=== PATIENT | male | born 1940 | race African-American/Black ===

== ENCOUNTER 2018-04-05 14:26 | Inpatient (IN) | payer MEDICARE, OTHER ==
[~2018-04-05] VITALS: Ht 177.8 cm; Wt 91.6 kg
--- NOTE | 2018-04-05 15:35 | NUR ---
RECEIVED PT FROM [facility]. PT NEW ADMISSION. RECEIVED PT TRACH W/ SHILEY #6 CUFFED (DEFLATED). PLACED PT ON C/A 28%, 5/L , PT ON C/A AT [facility]. AWAITING MD ORDERS. BREATH SOUNDS BILATERAL DIMINISHED COARSE. SX SMALL AMOUNT OF YELLOW THICK SECRETIONS. PT AWAKE AND STABLE AT THIS TIME. NO SOB/RESP DISTRESS NOTED. WILL CONTINUE TO MONITOR PT. Addendum: 04/05/18 at 1645 by ADRIANNA DIETRICH RT Amended: Links added.
--- NOTE | 2018-04-05 15:40 | NUR ---
77 year old male pt admitted from [facility] to subacute room 273 with respiratory failure,has h/o CKD,CVA and right side paralysis.He is comatose and nonresponsiveness with Shiley#6 cuffed.Pt is having cool aerosol with FIO2 28%.Body assessment done and it is documented.Vital signs checked and recorded and it is under baseline.Medications are verified with PCP.Pharmacy made aware.Son is at bedside and aware about the medications and nursing care.G tube feeding with Nepro 1.8 @45ml/hr is started and will continue to monitor. Addendum: 04/05/18 at 1907 by FRANCISCO BRAVO RN Midline with 1 lumen is on the left upper arm and it is intact and non infiltrated.
[2018-04-05] MEDS ORDERED: LATA2.5D7 EACHEYE (16:30)
[2018-04-05] MEDS ORDERED: CHLO473M5 MM (16:30)
[2018-04-05] MEDS ORDERED: LIDOCAINE (16:30)
[2018-04-05] MEDS ORDERED: NYST5ORA BC (16:30)
[2018-04-05] MEDS ORDERED: BRIN10DR EACHEYE (16:30)
[2018-04-05] MEDS ORDERED: AMLO5TAB2 GT (16:30)
[2018-04-05] MEDS ORDERED: FAMO-131 GT (16:30)
[2018-04-05] MEDS ORDERED: [UNRECOGNIZED DRUG - CODE] TP (16:30)
[2018-04-05] MEDS ORDERED: FINA5TAB3 GT (16:30)
[2018-04-05] MEDS ORDERED: ASCO250T5 GT (16:30)
[2018-04-05] MEDS ORDERED: INSU100V3 SQ (16:30)
[2018-04-05] MEDS ORDERED: GLUC1KIT IM (16:30)
[2018-04-05] MEDS ORDERED: LACO10SO GT (16:30)
[2018-04-05] MEDS ORDERED: ACET650S26 GT (16:30)
[2018-04-05] MEDS ORDERED: ATOR40TA GT (16:30)
[2018-04-05] MEDS ORDERED: NITR1OIN2 TD (16:30)
[2018-04-05] MEDS ORDERED: PRED5DRO16 EACHEYE (16:30)
[2018-04-05] MEDS ORDERED: MAGN400O6 GT (16:30)
[2018-04-05] MEDS ORDERED: SIME80TA15 GT (16:30)
[2018-04-05] MEDS ORDERED: LINA5TAB GT (16:30)
[2018-04-05] MEDS ORDERED: FERR300L GT (16:30)
[2018-04-05] MEDS ORDERED: INSU100I19 SQ (16:30)
[2018-04-05] MEDS ORDERED: BUME1TAB4 GT (16:30)
[2018-04-05] MEDS ORDERED: METO25TA20 GT (16:30)
[2018-04-05] MEDS ORDERED: PRAZ2CAP2 GT (16:30)
[2018-04-05] MEDS ORDERED: DOCU50LI GT (16:30)
[2018-04-05] MEDS ORDERED: POLY17PO4 GT (16:30)
[2018-04-05] MEDS ORDERED: BISA10SU8 RC (16:30)
[2018-04-05] MEDS ORDERED: BETH25TA GT (16:30)
[2018-04-05] MEDS ORDERED: METO5SOL2 GT (16:30)
[2018-04-05] MEDS ORDERED: OLAN2.5T3 GT (16:30)
[2018-04-05] MEDS ORDERED: NEPRO 1,000 ML BOTTLE GT PRN (17:00)
[2018-04-05] MEDS ORDERED: HYDROGEN PEROXIDE 480 ML BOTTLE TP PRN (18:00)
[2018-04-05] MEDS ORDERED: ACETAMINOPHEN 650 MG/20.3 ML UDC GT PRN (18:30)
[2018-04-05] MEDS ORDERED: BISACODYL SUPP (10 MG) 10 MG/SUPP.RECT SUPP.RECT RC PRN (18:30)
[2018-04-05] MEDS ORDERED: MAGNESIUM HYDROXIDE 30 ML UDC GT PRN (18:30)
[2018-04-05] MEDS ORDERED: GLUCAGON,HUMAN RECOMBINANT 1 MG/VIAL VIAL IM PRN (19:00)
[2018-04-05] MEDS ORDERED: MICONAZOLE NITRATE 2% CREAM 1 EA TUBE TP PRN (19:30)
[2018-04-05] MEDS ORDERED: NITROGLYCERIN 30 GM TUBE TP PRN (19:30)
[2018-04-05 20:08] VITALS: BP 127/66
--- NOTE | 2018-04-05 20:19 | NUR ---
RT NOTE PATIENT RECEIVED IN STABLE CONDITION VIA TRACH TUBE SHILEY #6. PATIENT TOLERATING COOL AEROSOL 28%. NO SIGNS OF RESPIRATORY DISTRESS NOTED. PATIENT SUCTIONED FOR MODERATE AMOUNT OF THICK, YELLOW SECRETIONS. EMERGENCY EQUIPMENT AT BEDSIDE. WILL CONTINUE TO MONITOR.
[2018-04-05] MEDS: MICONAZOLE NITRATE 2% CREAM 1 EA TUBE TP SCH (21:00)
[2018-04-05] MEDS ORDERED: ATORVASTATIN 40 MG TABLET GT SCH (21:00)
[2018-04-05] MEDS ORDERED: PRAZOSIN HCL 1 MG CAPSULE PO SCH (21:00)
[2018-04-05] MEDS ORDERED: BRINZOLAMIDE 1 % OPHTH SOLN 10 ML BOTTLE EACHEYE SCH (21:00)
[2018-04-05] MEDS ORDERED: TUBERCULIN,PURIF.PROT.DERIV. 5 TU/0.1 ML VIAL ID SCH (21:00)
[2018-04-05 21:26] VITALS: BP 102/65
[2018-04-05] MEDS: NYSTATIN (PYXIS) 500,000 UNIT/5 ML ORAL.SUSP BC SCH (21:49)
[2018-04-05] MEDS: SIMETHICONE 80 MG TAB.CHEW GT SCH (21:49)
[2018-04-05] MEDS: CHLORHEXIDINE GLUCONATE 15 ML UDC MM SCH (21:49)
[2018-04-05] MEDS: PRAZOSIN HCL 1 MG CAPSULE PO SCH (21:49)
[2018-04-05] MEDS: DORZOLAMIDE OPTH 2% 10 ML BOTTLE EACHEYE SCH (21:49)
[2018-04-05] MEDS: METOPROLOL TARTRATE 25 MG TABLET PO SCH (21:49)
[2018-04-05] MEDS: LACOSAMIDE 50 MG TABLET GT SCH (21:49)
[2018-04-05] MEDS: HYDROGEN PEROXIDE 480 ML BOTTLE TP SCH (21:50)
[2018-04-05] MEDS: LATANOPROST EYE DROP 0.005% 2.5 ML BOTTLE EACHEYE SCH (21:50)
[2018-04-05] MEDS: DEXTROSE 50%-WATER 50 ML DISP.SYRIN IV PRN (22:11)
--- NOTE | 2018-04-05 23:15 | NUR ---
Patient noted with episode of hypoglycemia with a Bs = 52, orange juice given via gt with a result of Bs = 62 post 30 mins. D50% 50 ml IVP administered as ordered with a result of FT=916. No s/s of hypoglycemia/hyperglycemia. Lantus given as ordered. Son at bedside, aware and appreciated the care. Will continue to monitor.
[2018-04-05] MEDS: INSULIN GLARGINE, 100 UNIT/ML CARTRIDGE SQ SCH (23:20)
[2018-04-05] MEDS: BLOOD SUGAR DIAGNOSTIC 1 EACH STRIP IN SCH (23:27)
[2018-04-05] MEDS: INSULIN REGULAR, HUMAN 100 UNIT/ML 3 ML VIAL SQ PRN (23:28)
[2018-04-05] MEDS: METOCLOPRAMIDE HCL 10 MG/10 ML UDC GT SCH (23:30)
[2018-04-06 00:53] VITALS: BP 120/58
[2018-04-06 04:54] VITALS: BP 129/72
--- NOTE | 2018-04-06 06:00 | NUR ---
Son requested to do bladder scan q 6 hours and do straight cath when the pvr is > 300. Bladder scan done with PVR = 0. Will endorse to the next shift to follow up with
[2018-04-06] MEDS: METOCLOPRAMIDE HCL 10 MG/10 ML UDC GT SCH ×3 (06:07→17:46)
[2018-04-06] MEDS: FAMOTIDINE (20 MG) 20 MG TABLET GT SCH (06:07)
[2018-04-06 06:32] LABS: ALANINE AMINOTRANSFERASE 89 U/L (12-78); ALBUMIN 1.7 g/dL (3.4-5.0); ALKALINE PHOSPHATASE 252 U/L (46-116); ASPARTATE AMINOTRANSFERASE 52 U/L (15-37); BILIRUBIN,TOTAL 0.2 mg/dL (0.2-1.0); CALCIUM, SERUM 8.2 mg/dL (8.5-10.1); CARBON DIOXIDE 31 mmol/L (21-32); CHLORIDE 101 mmol/L (98-107); CREATININE 1.3 mg/dL (0.6-1.3); GLUCOSE 66 mg/dL (74-106); MAGNESIUM 2.3 mg/dL (1.8-2.4); POTASSIUM 3.8 mmol/L (3.5-5.1); SODIUM SERUM 139 mmol/L (136-145); TOTAL PROTEIN, SERUM 7.7 g/dL (6.4-8.2); UREA NITROGEN, BLOOD 49 mg/dL (7-18)
[2018-04-06] MEDS: INSULIN REGULAR, HUMAN 100 UNIT/ML 3 ML VIAL SQ PRN (06:36)
[2018-04-06] MEDS: BLOOD SUGAR DIAGNOSTIC 1 EACH STRIP IN SCH ×3 (06:36→17:46)
--- NOTE | 2018-04-06 06:51 | NUR ---
Noted with hypoglycemia episode with BS = 65, patient awake, orange juice given via gtube with a result of 89 post 30 minutes. Will endorse to the next shift to follow up with MD.
[2018-04-06 07:32] VITALS: BP 136/72
[2018-04-06] MEDS: POVIDONE IODINE TP SCH ×8 (09:00→21:57)
[2018-04-06] MEDS: HYDROGEN PEROXIDE 480 ML BOTTLE TP SCH ×2 (09:00→21:57)
[2018-04-06] MEDS: INSULIN GLARGINE, 100 UNIT/ML CARTRIDGE SQ SCH ×2 (09:00→21:00)
[2018-04-06] MEDS: NYSTATIN (PYXIS) 500,000 UNIT/5 ML ORAL.SUSP BC SCH ×4 (09:49→21:56)
[2018-04-06] MEDS: prednisoLONE ACETATE OPHT DROPS 5 ML BOTTLE EACHEYE SCH ×2 (09:49→17:46)
[2018-04-06] MEDS: FERROUS SULFATE - FOR SA ONLY 330 MG/7.5 ML UDC GT SCH (09:50)
[2018-04-06] MEDS: DOCUSATE SODIUM LIQ 100 MG/10 ML UDC GT SCH ×2 (09:50→17:46)
[2018-04-06] MEDS: POLYETHYLENE GLYCOL 3350 17 GM POWD.PACK GT SCH ×2 (09:50→17:46)
[2018-04-06] MEDS: DORZOLAMIDE OPTH 2% 10 ML BOTTLE EACHEYE SCH ×3 (09:50→17:46)
[2018-04-06] MEDS: METOPROLOL TARTRATE 25 MG TABLET PO SCH ×2 (09:51→21:56)
[2018-04-06] MEDS: ASCORBIC ACID 500 MG TABLET GT SCH (09:51)
[2018-04-06] MEDS: AMLODIPINE BESYLATE 5 MG TABLET GT SCH (09:51)
[2018-04-06] MEDS: CHLORHEXIDINE GLUCONATE 15 ML UDC MM SCH ×2 (09:51→21:56)
[2018-04-06] MEDS: BETHANECHOL CHLORIDE (25 MG) 25 MG TABLET GT SCH ×3 (09:51→17:46)
[2018-04-06] MEDS: FINASTERIDE (5 MG) 5 MG TABLET GT SCH (09:51)
[2018-04-06] MEDS: LINAGLIPTIN 5 MG TABLET GT SCH (09:51)
[2018-04-06] MEDS: SIMETHICONE 80 MG TAB.CHEW GT SCH ×3 (09:51→17:46)
[2018-04-06] MEDS: LACOSAMIDE 50 MG TABLET GT SCH ×2 (09:51→21:55)
[2018-04-06 10:02] LABS: BASOPHILS % (AUTO) 0.4 % (0.0-2.0); EOSINOPHILS % (AUTO) 0.7 % (0.0-6.0); HEMATOCRIT 26 % (39-51); HEMOGLOBIN 8.2 g/dL (13.5-17.5); LYMPHOCYTES # (AUTO) 1.4 /CMM (0.8-4.8); LYMPHOCYTES % (AUTO) 16.3 % (20.0-44.0); MEAN CORPUSCULAR HEMOGLOBIN 29 PG (26.0-33.0); MEAN CORPUSCULAR HGB CONC 31 g/dl (31.0-36.0); MEAN CORPUSCULAR VOLUME 92 fL (80-96); MONOCYTES # (AUTO) 0.7 /CMM (0.1-1.30); MONOCYTES % (AUTO) 8.7 % (2.0-12.0); NEUTROPHILS # (AUTO) 6.1 /CMM (1.8-8.9); NEUTROPHILS % (AUTO) 73.9 % (43.0-81.0); PLATELET COUNT (AUTO) 239 /CMM (150-450); RDW COEFFICIENT OF VARIATION 16.4 (11.5-15.0); RED BLOOD CELL COUNT(AUTO) 2.88 MIL/uL (4.5-6.0); WHITE BLOOD COUNT (AUTO) 8.3 K/uL (4.3-11.0)
[2018-04-06] MEDS: MICONAZOLE NITRATE 2% CREAM 1 EA TUBE TP SCH (10:30)
[2018-04-06 12:00] VITALS: BP 118/62
--- NOTE | 2018-04-06 14:00 | NUR ---
INTERDISCIPLINARY PLAN OF CARE CONFERENCE was held today. Resident's son Jose attended the IDT meeting in person. Dr. Ramírez and the interdisciplinary team discussed the current plan of care in detail. Current orders as well as treatments and medications were reviewed. Current medications were reviewed with the resident's son. Dr. Ramírez asked son whether there have been any neurological changes in the resident to which son replied by stating that resident occasionally twitches his finger when he asks him to squeeze his hand. Code status was reviewed with the resident's son and resident is to be full code with maximum treatment. Dietary reviewed current tube feeding with the resident's son. Reglan indicator will be changed from GERD to gastrophoresis. Resident was previously taking Aspirin and this will be resumed. Per PT team, the resident is not appropriate for PT therapy and will have Range of Motion exercises done 5x/week. Resident will have OT evaluation as well to screen for services. Son asked why midline was still inserted and was told that midline will stay over the weekend (to monitor) since resident recently arrived to the unit and will potentially be removed next week. No other orders were given.
--- NOTE | 2018-04-06 14:59 | NUR ---
SW met with the resident's son Jose Johns to complete initial paperwork: patient rights acknowledgement, documentation of preferred intensity of care, conditions of admission, an important message from medicare about your rights, [place] Standard Admission Agreement, and voluntary prior express consent form. Per resident's son, resident is Full Code with maximum treatment. Charge nurse informed. Admission ppwk was placed into the resident's chart. SW gathered information for psychosocial assessment and inputted assessment.
[2018-04-06 16:00] VITALS: BP 134/67
[2018-04-06] MEDS: Z GUARD REMEDY 4 OZ OINT TP SCH ×2 (18:54→21:57)
[2018-04-06 20:52] VITALS: BP 137/68
--- NOTE | 2018-04-06 21:00 | NUR ---
CLARIFICATION OF ORDER OF LANTUS TO D/C PREVIOUS LANTUS 19UNITS AND CHANGED TO LANTUS 12 UNITS RECEIVED NOTED AND CARRIED OUT. LANTUS 12 UNITS SUBCUTANEOUSLY GIVEN ORDERED. WILL CONTINUE TO MONITOR.
[2018-04-06] MEDS: LATANOPROST EYE DROP 0.005% 2.5 ML BOTTLE EACHEYE SCH (21:57)
[2018-04-06] MEDS: ATORVASTATIN 10 MG TABLET GT SCH (21:57)
[2018-04-06] MEDS: PRAZOSIN HCL 1 MG CAPSULE PO SCH (21:57)
[2018-04-06] MEDS ORDERED: LACOSAMIDE 50 MG TABLET ONE (22:19)
--- NOTE | 2018-04-06 22:28 | NUR ---
PT RCVD PROSPER'D ON COOL AEROSOL WITH CHARTED SETTINGS. SX DONE. PT TRACH PATENT AND SECURE. AMBU BAG AT BEDSIDE. WILL CONTINUE TO MONITOR. Addendum: 04/06/18 at 2228 by TITO GARCES RT Amended: Links added.
[2018-04-07] MEDS: METOCLOPRAMIDE HCL 10 MG/10 ML UDC GT SCH ×4 (00:15→17:38)
[2018-04-07] MEDS: BLOOD SUGAR DIAGNOSTIC 1 EACH STRIP IN SCH ×4 (00:15→17:41)
[2018-04-07] MEDS: INSULIN REGULAR, HUMAN 100 UNIT/ML 3 ML VIAL SQ PRN ×3 (00:15→17:42)
[2018-04-07] MEDS: FAMOTIDINE (20 MG) 20 MG TABLET GT SCH (05:55)
[2018-04-07 07:38] VITALS: BP 124/69
[2018-04-07] MEDS: NYSTATIN (PYXIS) 500,000 UNIT/5 ML ORAL.SUSP BC SCH ×4 (08:45→21:30)
[2018-04-07] MEDS: SIMETHICONE 80 MG TAB.CHEW GT SCH ×3 (08:45→17:38)
[2018-04-07] MEDS: FINASTERIDE (5 MG) 5 MG TABLET GT SCH (08:45)
[2018-04-07] MEDS: METOPROLOL TARTRATE 25 MG TABLET PO SCH ×2 (08:46→21:31)
[2018-04-07] MEDS: AMLODIPINE BESYLATE 5 MG TABLET GT SCH (08:46)
[2018-04-07] MEDS: prednisoLONE ACETATE OPHT DROPS 5 ML BOTTLE EACHEYE SCH ×2 (08:48→17:40)
[2018-04-07] MEDS: CHLORHEXIDINE GLUCONATE 15 ML UDC MM SCH ×2 (08:49→21:30)
[2018-04-07] MEDS: DORZOLAMIDE OPTH 2% 10 ML BOTTLE EACHEYE SCH ×3 (08:49→17:40)
[2018-04-07] MEDS: BETHANECHOL CHLORIDE (25 MG) 25 MG TABLET GT SCH ×3 (08:49→17:39)
[2018-04-07] MEDS: POLYETHYLENE GLYCOL 3350 17 GM POWD.PACK GT SCH ×2 (08:49→17:40)
[2018-04-07] MEDS: ASCORBIC ACID 500 MG TABLET GT SCH (08:49)
[2018-04-07] MEDS: DOCUSATE SODIUM LIQ 100 MG/10 ML UDC GT SCH ×2 (08:49→17:40)
[2018-04-07] MEDS: FERROUS SULFATE - FOR SA ONLY 330 MG/7.5 ML UDC GT SCH (08:49)
[2018-04-07] MEDS: Z GUARD REMEDY 4 OZ OINT TP SCH ×2 (08:50→21:32)
[2018-04-07] MEDS: POVIDONE IODINE TP SCH ×6 (08:50→21:32)
[2018-04-07] MEDS: HYDROGEN PEROXIDE 480 ML BOTTLE TP SCH ×2 (08:50→21:31)
[2018-04-07] MEDS: LINAGLIPTIN 5 MG TABLET GT SCH (09:00)
[2018-04-07] MEDS: INSULIN GLARGINE, 100 UNIT/ML CARTRIDGE SQ SCH ×2 (09:32→21:31)
[2018-04-07] MEDS: MICONAZOLE NITRATE 2% CREAM 1 EA TUBE TP SCH ×2 (09:32→21:32)
[2018-04-07] MEDS: LACOSAMIDE 50 MG TABLET GT SCH ×2 (10:02→21:30)
--- NOTE | 2018-04-07 12:10 | NUR ---
Seen and examined by Dr. Ramírez, made aware that patient has no breathing treatment order, he said to give PRN Albuterol and Atrovent Q 6 hours for SOB. Resident's son Dr. Johns notified of new order. No signs of respiratory distress at this time.
[2018-04-07 12:52] VITALS: BP 120/65
[2018-04-07] MEDS ORDERED: ALBUTEROL FS 2.5 MG/0.5 ML VIAL.NEB NEB PRN (13:00)
[2018-04-07] MEDS ORDERED: IPRATROPIUM NEB FS 0.5 MG/2.5 ML AMPUL.NEB NEB PRN (13:00)
[2018-04-07 14:40] VITALS: BP 124/62
[2018-04-07 16:11] VITALS: BP 124/68
[2018-04-07 18:42] VITALS: BP 124/62
[2018-04-07 20:00] VITALS: BP 136/74
[2018-04-07] MEDS: PRAZOSIN HCL 1 MG CAPSULE PO SCH (21:31)
[2018-04-07] MEDS: LATANOPROST EYE DROP 0.005% 2.5 ML BOTTLE EACHEYE SCH (21:32)
[2018-04-07] MEDS: ATORVASTATIN 10 MG TABLET GT SCH (21:34)
[2018-04-08] VITALS: BP 127/64
[2018-04-08] MEDS: BLOOD SUGAR DIAGNOSTIC 1 EACH STRIP IN SCH ×4 (00:40→18:26)
--- NOTE | 2018-04-08 01:24 | NUR ---
0040 BS 60 MG / DL ORANGE JUICE GIVEN VIA GT D/T 50 ML DEXTROSE 50% NOT AVAILABLE. 0010 RECHECK BS: 63 MG/DL CHARGE NURSE AWARE , WILL CON'T TO MONITOR.
--- NOTE | 2018-04-08 03:31 | NUR ---
MACHINIST OUTSIDE REPORTED NO URINE OUTPUT SINCE START OF SHIFT, BLADDER SCAN PERFORMED, BVI 65 CC, PATIENT HAS UPPER EXTREMITIES EDEMA 2+, BP WNL, RECEIVING GT FEEDING AT 45 CC/HR. WILL PERFORM ANOTHER BLADDER SCAN
[2018-04-08 04:00] VITALS: BP 126/67
--- NOTE | 2018-04-08 05:37 | NUR ---
PERFORMED ANOTHER BLADDER SCAN, BVI 92 CC, ON PALPATION, NO BLADDER DISTENTION, BP 126/67, RECEIVING GT FEEDING AT 45CC/HR, EDEMA TO UPPER EXTREMITIES, BP 126/67 HR 73
--- NOTE | 2018-04-08 06:12 | NUR ---
PAGED DR. WHITE REGARDING NO URINE OUTPUT, AWAITING CALL BACK
[2018-04-08] MEDS: INSULIN REGULAR, HUMAN 100 UNIT/ML 3 ML VIAL SQ PRN ×2 (06:26→18:27)
[2018-04-08] MEDS: FAMOTIDINE (20 MG) 20 MG TABLET GT SCH (06:26)
[2018-04-08] MEDS: METOCLOPRAMIDE HCL 10 MG/10 ML UDC GT SCH ×4 (06:26→18:00)
--- NOTE | 2018-04-08 06:50 | NUR ---
NO CALL BACK FROM DR. WHITE
--- NOTE | 2018-04-08 07:01 | NUR ---
0430 Residual 400 , Charge nurse aware. [address] Yimi Parker and still waiting for the new order.
[2018-04-08 07:35] VITALS: BP 139/77
--- NOTE | 2018-04-08 07:42 | NUR ---
Received a call from Dr. Parker informing him that patient has no urine output last night, check PVR through bladder scan obtained [address] Parker ordered straight cath x 1, CBC and BMP today. also made aware patient has gastric residual of 400 ml. feeding on hold at this time. Order carried out.
[2018-04-08] MEDS ORDERED: GLUCERNA 1.2 1,000 ML BOTTLE GT PRN (08:30)
--- NOTE | 2018-04-08 08:30 | NUR ---
Straight cath done, obtained 400 ml. Gastric residual remain high at 300ml. Resident stable, calm, no s/s of respiratory/cardio distress. Resident's son requesting patient to be up today in the gerichair.
[2018-04-08] MEDS: DORZOLAMIDE OPTH 2% 10 ML BOTTLE EACHEYE SCH ×3 (09:00→17:00)
[2018-04-08] MEDS: BETHANECHOL CHLORIDE (25 MG) 25 MG TABLET GT SCH ×3 (09:00→17:00)
[2018-04-08] MEDS: POLYETHYLENE GLYCOL 3350 17 GM POWD.PACK GT SCH ×2 (09:00→17:00)
[2018-04-08] MEDS: METOPROLOL TARTRATE 25 MG TABLET PO SCH ×2 (09:00→21:00)
[2018-04-08] MEDS: LINAGLIPTIN 5 MG TABLET GT SCH (09:00)
[2018-04-08] MEDS: MICONAZOLE NITRATE 2% CREAM 1 EA TUBE TP SCH ×2 (09:00→21:57)
[2018-04-08] MEDS: LACOSAMIDE 50 MG TABLET GT SCH ×2 (09:00→21:00)
[2018-04-08] MEDS: FERROUS SULFATE - FOR SA ONLY 330 MG/7.5 ML UDC GT SCH (09:00)
[2018-04-08] MEDS: FINASTERIDE (5 MG) 5 MG TABLET GT SCH (09:00)
[2018-04-08] MEDS: prednisoLONE ACETATE OPHT DROPS 5 ML BOTTLE EACHEYE SCH ×2 (09:00→17:00)
[2018-04-08] MEDS: ASCORBIC ACID 500 MG TABLET GT SCH (09:00)
[2018-04-08] MEDS: INSULIN GLARGINE, 100 UNIT/ML CARTRIDGE SQ SCH ×2 (09:00→21:00)
[2018-04-08] MEDS: HYDROGEN PEROXIDE 480 ML BOTTLE TP SCH ×2 (09:00→21:57)
[2018-04-08] MEDS: SIMETHICONE 80 MG TAB.CHEW GT SCH ×3 (09:00→17:00)
[2018-04-08] MEDS: NYSTATIN (PYXIS) 500,000 UNIT/5 ML ORAL.SUSP BC SCH ×4 (09:00→21:57)
[2018-04-08] MEDS: Z GUARD REMEDY 4 OZ OINT TP SCH ×2 (09:00→21:58)
[2018-04-08] MEDS: AMLODIPINE BESYLATE 5 MG TABLET GT SCH (09:00)
[2018-04-08] MEDS: DOCUSATE SODIUM LIQ 100 MG/10 ML UDC GT SCH ×2 (09:00→17:00)
[2018-04-08] MEDS: CHLORHEXIDINE GLUCONATE 15 ML UDC MM SCH ×2 (09:00→21:57)
[2018-04-08] MEDS: POVIDONE IODINE TP SCH ×6 (09:00→21:58)
[2018-04-08 09:30] LABS: EOSINOPHILS % (AUTO) 0.4 % (0.0-6.0); HEMATOCRIT 27 % (39-51); HEMOGLOBIN 8.4 g/dL (13.5-17.5); LYMPHOCYTES # (AUTO) 0.8 /CMM (0.8-4.8); LYMPHOCYTES % (AUTO) 8.7 % (20.0-44.0); MEAN CORPUSCULAR HEMOGLOBIN 29 PG (26.0-33.0); MEAN CORPUSCULAR HGB CONC 32 g/dl (31.0-36.0); MEAN CORPUSCULAR VOLUME 91 fL (80-96); MONOCYTES # (AUTO) 0.2 /CMM (0.1-1.30); MONOCYTES % (AUTO) 2.6 % (2.0-12.0); NEUTROPHILS # (AUTO) 8.1 /CMM (1.8-8.9); NEUTROPHILS % (AUTO) 88.3 % (43.0-81.0); PLATELET COUNT (AUTO) 223 /CMM (150-450); RDW COEFFICIENT OF VARIATION 16.6 (11.5-15.0); RED BLOOD CELL COUNT(AUTO) 2.94 MIL/uL (4.5-6.0); WHITE BLOOD COUNT (AUTO) 9.1 K/uL (4.3-11.0)
[2018-04-08 09:41] LABS: CALCIUM, SERUM 8.6 mg/dL (8.5-10.1); CARBON DIOXIDE 32 mmol/L (21-32); CHLORIDE 102 mmol/L (98-107); CREATININE 1.3 mg/dL (0.6-1.3); GLUCOSE 67 mg/dL (74-106); POTASSIUM 3.7 mmol/L (3.5-5.1); SODIUM SERUM 140 mmol/L (136-145); UREA NITROGEN, BLOOD 40 mg/dL (7-18)
--- NOTE | 2018-04-08 09:59 | NUR ---
Notified registered dietitian that patient has high gastric residual of 400ml at 0430 this morning, feeding held and receiving Reglan 10mg. Q 6 hours. Patient taken to the shower room using Sonia lift transfer with 2 person assist in transfer and during shower. RT connected patient in portable O2 at 5L/m., patient taken to activity room. Resident's son notified on the phone that patient is ready and up in the osiris-chair and will update him on the patient's condition when he comes. Appreciated the call.
[2018-04-08] MEDS: DEXTROSE 50%-WATER 50 ML DISP.SYRIN IV PRN (10:51)
--- NOTE | 2018-04-08 12:01 | NUR ---
Notified Dr. Harpreet Parker regarding result of BMP/CBC. BS 67, FSBS 63 mg/dl. at 0954, D50% IVP given, BS at 1107 = 115mg/dl. Informed MD that Lantus was held earlier due to low BS result, he said to give the full insulin at this time. Also reported patient remain with high gastric residual, obtained 400 ml. urine output from straight cath. No other order given at this time. Resident's son at bedside and updated him on patient's condition and orders.
--- NOTE | 2018-04-08 14:44 | NUR ---
Paged Dr. Parker, patient vomited large amount formula like/yellow color. Oral and tracheal suctioning done, no s/s of aspiration slightly labored breathing RR 24-26. V/S 147/75, 97, 93%, 98.4. RT and DELIVERY DRIVER stayed with resident, GEOTECHNICAL DEPARTMENT MANAGER cleaned patient, changed gown and beddings. Respiration improved, O2 sat 98% F102 30%, GT feeding held, obtain 210 ml of greenish gastric residual. Patient had x2 BM last night and x1 this AM. Resident's son at bedside requesting to speak with the doctor. Spoke with electrocardiograph operator and pharmacist to review medications and tube feeding. Awaiting for MD to call back.
--- NOTE | 2018-04-08 15:45 | NUR ---
Made a follow-up call to Dr. Parker, resident more stable no SOB, breathing regularly, no further vomiting noted. Resident's son still at bedside, waiting for Dr. Parker to call back. Pharmacist recommending to d/c Lantus for now, monitor BS and give Insulin per sliding scale and Lantus can be added later on. Spray Operator is recommending to hold GT feeding if medically stable, suggesting to get KUB to check for placement, continue with Reglan and if GT in proper place, to start TF of Osmolite 1.2 at 20 ml. and advance TF by 10 ml every 6-8 hours to 65cc/hr. (1300 ml/1560 reinaldo.), add Prostat BID. Tube feeding remain on hold. Awaiting for MD to call back. Nursing electrical tests supervisor aware.
--- NOTE | 2018-04-08 16:30 | NUR ---
Notified Nursing pressroom supervisor that Dr. Parker has not return the call, she said that she will send him a message. Awaiting for call back. In the meantime, family notified that we are still waiting a call from Dr. Parker. Resident stable, no further vomiting, HOB elevated, however patient tends to desat when HOB is down during care. Titrated 02 to keep it above 94%.
--- NOTE | 2018-04-08 17:00 | NUR ---
Dr. Ramírez notified of the concerns about the patient including dietary and pharmacy recommendations. New order given to do KUB,, CXR, NPO start IVF D5NS at 100cc/hr and hold Lantus for now. Orders noted and carried out. Resident's son remain at bedside and informed him of treatment orders by Dr. Ramírez.
[2018-04-08] MEDS: IV D5/ 0.9% NACL 1,000 ML IV PRN (18:23)
--- NOTE | 2018-04-08 19:15 | NUR ---
Reported KUB and CXR (04/08/18) result to Dr. Ramírez and gave the following orders: Patient's GT to be connected to suction, start Zosyn pharmacy to dose, KUB in AM and consult with Dr. Matthew Parker in AM. Resident's son still at bedside and informed of KUB and CXR result. He said that patient used to have pneumonia in the other hospital but he was already been treated. He said that he is OK with the treatment plan to keep patient NPO, start him on ATB and for consult with Dr. Matthew Parker due to KUB result showing early changes of small bowel obstruction. Endorsed to incoming shift to carry out the orders.
[2018-04-08 20:00] VITALS: BP 128/64
--- NOTE | 2018-04-08 20:30 | NUR ---
RN NOTES Received pt in bed with asleep with no respiratory distress. Connected gt to intermittent suction, draining greenish fluid, son at bedside. Received new order from Dr. Ramírez for Zosyn 3.375gm IV q8hr for PNA, noted and carried out.
--- NOTE | 2018-04-08 20:46 | NUR ---
pt received on aerosol via trach with charted settings. airway patent. trach secure via trach tie. pt responsive to voice. ambu bag and back up trach at bedside. suctioned a small amount of thick yellow secretions. pt hob at 30 degrees. suctioned oral secretion from pts mouth Addendum: 04/08/18 at 2047 by PHILIPP LIMON RT Amended: Links added.
[2018-04-08] MEDS: PIPERACILLIN /TAZOBACTAM 3.375 G in IV D5W 50 ML IV SCH (21:00)
[2018-04-08] MEDS: PRAZOSIN HCL 1 MG CAPSULE PO SCH (21:00)
[2018-04-08] MEDS ORDERED: PIPERACILLIN /TAZOBACTAM 3.375 G VIAL IV ONE (21:54)
[2018-04-08] MEDS: LATANOPROST EYE DROP 0.005% 2.5 ML BOTTLE EACHEYE SCH (21:59)
[2018-04-08] MEDS: ATORVASTATIN 10 MG TABLET GT SCH (22:00)
[2018-04-09] VITALS: BP 132/65
[2018-04-09] MEDS: BLOOD SUGAR DIAGNOSTIC 1 EACH STRIP IN SCH ×5 (00:34→23:13)
[2018-04-09] MEDS: INSULIN REGULAR, HUMAN 100 UNIT/ML 3 ML VIAL SQ PRN ×5 (00:34→23:14)
[2018-04-09 04:00] VITALS: BP 138/72
[2018-04-09] MEDS: IV D5/ 0.9% NACL 1,000 ML IV PRN (05:00)
[2018-04-09] MEDS ORDERED: PIPERACILLIN /TAZOBACTAM 3.375 G VIAL IV ONE (05:30)
[2018-04-09] MEDS: PIPERACILLIN /TAZOBACTAM 3.375 G in IV D5W 50 ML IV SCH (05:35)
[2018-04-09] MEDS: FAMOTIDINE (20 MG) 20 MG TABLET GT SCH (05:56)
[2018-04-09] MEDS: METOCLOPRAMIDE HCL 10 MG/10 ML UDC GT SCH ×4 (05:57→17:24)
--- NOTE | 2018-04-09 08:39 | NUR ---
CHANI informed Dr. Dotson (motion picture director) that resident is a new admit and in need of podiatry evaluation. He stated that he will see the resident.
--- NOTE | 2018-04-09 08:43 | NUR ---
Received order to increase Zosyn to 4.5 gm IV q 6 hours for pneumonia per pharmacy dosing.
[2018-04-09] MEDS: POLYETHYLENE GLYCOL 3350 17 GM POWD.PACK GT SCH ×2 (09:00→17:00)
[2018-04-09] MEDS: ASCORBIC ACID 500 MG TABLET GT SCH (09:00)
[2018-04-09] MEDS: FERROUS SULFATE - FOR SA ONLY 330 MG/7.5 ML UDC GT SCH (09:00)
[2018-04-09] MEDS: AMLODIPINE BESYLATE 5 MG TABLET GT SCH (09:00)
[2018-04-09] MEDS: METOPROLOL TARTRATE 25 MG TABLET PO SCH ×2 (09:00→21:00)
[2018-04-09] MEDS: FINASTERIDE (5 MG) 5 MG TABLET GT SCH (09:00)
[2018-04-09] MEDS: LINAGLIPTIN 5 MG TABLET GT SCH (09:00)
[2018-04-09] MEDS: DOCUSATE SODIUM LIQ 100 MG/10 ML UDC GT SCH ×2 (09:00→17:00)
[2018-04-09] MEDS: CHLORHEXIDINE GLUCONATE 15 ML UDC MM SCH ×2 (09:00→21:52)
[2018-04-09] MEDS: LACOSAMIDE 50 MG TABLET GT SCH ×2 (09:00→21:00)
[2018-04-09] MEDS: BETHANECHOL CHLORIDE (25 MG) 25 MG TABLET GT SCH ×3 (09:00→17:00)
[2018-04-09] MEDS: SIMETHICONE 80 MG TAB.CHEW GT SCH ×3 (09:00→17:00)
[2018-04-09] MEDS: prednisoLONE ACETATE OPHT DROPS 5 ML BOTTLE EACHEYE SCH ×2 (09:15→17:23)
[2018-04-09] MEDS: DORZOLAMIDE OPTH 2% 10 ML BOTTLE EACHEYE SCH ×3 (09:15→17:24)
[2018-04-09] MEDS: NYSTATIN (PYXIS) 500,000 UNIT/5 ML ORAL.SUSP BC SCH ×4 (09:15→21:52)
--- NOTE | 2018-04-09 09:30 | NUR ---
Notified CLINICAL LABORATORY TECHNOLOGIST Yael Quigley of consult with Dr. Parker as requested by Dr. Ramírez. Relayed KUB result to her.
[2018-04-09 09:34] LABS: BASOPHILS % (AUTO) 0.2 % (0.0-2.0); EOSINOPHILS % (AUTO) 0.2 % (0.0-6.0); HEMATOCRIT 27 % (39-51); HEMOGLOBIN 8.6 g/dL (13.5-17.5); LYMPHOCYTES # (AUTO) 1.1 /CMM (0.8-4.8); LYMPHOCYTES % (AUTO) 10.5 % (20.0-44.0); MEAN CORPUSCULAR HEMOGLOBIN 29 PG (26.0-33.0); MEAN CORPUSCULAR HGB CONC 32 g/dl (31.0-36.0); MEAN CORPUSCULAR VOLUME 92 fL (80-96); MONOCYTES # (AUTO) 0.9 /CMM (0.1-1.30); MONOCYTES % (AUTO) 8.4 % (2.0-12.0); NEUTROPHILS # (AUTO) 8.3 /CMM (1.8-8.9); NEUTROPHILS % (AUTO) 80.7 % (43.0-81.0); PLATELET COUNT (AUTO) 214 /CMM (150-450); RDW COEFFICIENT OF VARIATION 17.2 (11.5-15.0); RED BLOOD CELL COUNT(AUTO) 2.96 MIL/uL (4.5-6.0); WHITE BLOOD COUNT (AUTO) 10.3 K/uL (4.3-11.0)
[2018-04-09 10:14] VITALS: BP 148/86
[2018-04-09] MEDS: POVIDONE IODINE TP SCH ×6 (10:30→21:54)
[2018-04-09] MEDS: HYDROGEN PEROXIDE 480 ML BOTTLE TP SCH ×2 (10:30→21:53)
[2018-04-09] MEDS: Z GUARD REMEDY 4 OZ OINT TP SCH ×2 (10:30→21:54)
[2018-04-09 11:01] LABS: CALCIUM, SERUM 8.6 mg/dL (8.5-10.1); CARBON DIOXIDE 31 mmol/L (21-32); CHLORIDE 102 mmol/L (98-107); CREATININE 1.4 mg/dL (0.6-1.3); GLUCOSE 161 mg/dL (74-106); POTASSIUM 3.4 mmol/L (3.5-5.1); SODIUM SERUM 139 mmol/L (136-145); UREA NITROGEN, BLOOD 37 mg/dL (7-18)
--- NOTE | 2018-04-09 11:32 | NUR ---
Relayed CBC, Chem 7, CXR, and KUB results to Dr. Ramírez. Received order to give KCl 20 mEq with each liter of D5NS due to K 3.4.
--- NOTE | 2018-04-09 11:37 | NUR ---
Paged Dr. Swenson to update her on pt's condition and to ask her if pt still needs to be NPO including medications. Spoke with Jazmin.
[2018-04-09 11:45] LABS: AMYLASE 140 U/L (25-115); LIPASE 307 U/L (73-393)
[2018-04-09] MEDS: PIPERACILLIN /TAZOBACTAM 4.5 G in IV D5W 50 ML IV SCH ×2 (12:00→18:25)
--- NOTE | 2018-04-09 12:14 | NUR ---
No call back yet from Dr. Swenson. Asked Dr. Ramírez if pt should continue to be on NPO including medications. He said to defer to Dr. Joaquin Parker. Left message with Dr. Joaquin Parker's REGIONAL MARKETING DIRECTOR Yael Quigley. Also asked Dr. Ramírez if he thinks pt needs to be transferred to acute hospital, he said there is no need.
--- NOTE | 2018-04-09 12:28 | NUR ---
WOUND CARE CONSULT: PT SEEN FOR SKIN ASSESSMENT AND NOTED TO HAVE LEFT 5TH TOE DEEP TISSUE INJURY, INTACT WHICH MEASURES 0.5CM X 0.5CM X UTD, DARK BROWN IN COLOR, NO DRAINAGE, NO ODOR. PT ALSO NOTED TO HAVE RT AND LEFT MALLEOLUS INTACT DEEP TISSUE INJURIES,PRESENT ON ADMISSION, EACH MEASURING 1CM X 1CM X UTD, BROWN IN COLOR, NO DRAINAGE, NO ODOR. SACROCOCCYX AREA IS VERY BONY AND NOTED TO HAVE DEEP TISSUE INJURY (INTACT) MEASURING 1.5CM X 1CM X UTD, BROWN IN COLOR, NO DRAINAGE, NO ODOR, PRESENT ON ADMISSION. PERIANAL INCONTINENCE ASSOCIATED OPEN SKIN NOTED TO BE PRESENT ON ADMISSION, NOT MEASUREABLE, NO DRAINAGE, NO ODOR. NO WOUND NOTED TO RT BUTTOCK AT THIS TIME. RECOMMENDATIONS DISCUSSED WITH NURSING STAFF FOR Z GUARD TO BE USED FOR PERIANAL OPEN SKIN, MEPILEX TO BE USED ALONG WITH OFFLOADING FOR SACRAL, LEFT AND RIGHT LATERAL MALLEOLI. AND LEFT LATERAL 5TH TOE (ALL INTACT DEEP TISSUE INJURIES), PRESENT ON ADMISSION. ALL SKIN PROTECTION AND PRESSURE ULCER PREVENTION MEASURES IN PLACE. PT ON FIRST STEP CIRRUS MATTRESS. ABDOMEN IS LARGE. DEFER TO MD FOR ABDOMEN. WILL SEE PRN. IN AGREEMENT WITH PLAN OF CARE.
--- NOTE | 2018-04-09 14:00 | NUR ---
Called pt's son Jose to give him updates on pt's condition and new orders. He said he was on his way to see his father and when he came, he was given updates on the pt's condition which he appreciated.
--- NOTE | 2018-04-09 15:15 | NUR ---
Seen by Dr. Swenson. Received order to do LFT. She said if AST/ALT are high, do abdominal ultrasound. She said she already saw today's lab results of pt. Addendum: 04/09/18 at 1518 [address]DA L[address]O RN Dr Swenson is aware pt is NPO including meds.
[2018-04-09 15:45] LABS: ALBUMIN 1.7 g/dL (3.4-5.0); BILIRUBIN,DIRECT 0.1 mg/dL (0.0-0.2); BILIRUBIN,TOTAL 0.4 mg/dL (0.2-1.0); TOTAL PROTEIN, SERUM 7.6 g/dL (6.4-8.2)
[2018-04-09] MEDS: MICONAZOLE NITRATE 2% CREAM 1 EA TUBE TP SCH ×2 (15:49→21:53)
--- NOTE | 2018-04-09 17:44 | NUR ---
Seen by BRANDO Quigley. Pt's son at bedside. Received order to do small bowel follow through with Gastrograffin via G-tube to check for probable small bowel obstruction. BRANDO Quigley said to continue NPO including medications since pt still has about 300 cc of dark greenish fluid coming out from intermittently suctioning G-tube.
--- NOTE | 2018-04-09 18:00 | NUR ---
Relayed abdominal ultrasound result to CLEANER HOUSEKEEPING Yael Quigley. No new order. She said she will see pt again tomorrow.
--- NOTE | 2018-04-09 18:05 | NUR ---
Pageharjit Swenson to notify her that pt is still NPO including medications. Pt on Vimpat for seizures, Proscar and Urecholine for urinary retention. BP medications on hold but pt's blood pressure has been around his baseline according to pt's son. Addendum: 04/09/18 at 1808 by MAGDA LOBO RN Left message with Erin.
--- NOTE | 2018-04-09 18:50 | NUR ---
Dr. Swenson called. She said to keep holding the Vimpat, Proscar, and Urecholine. Notified her that pt only had urine output once this shift at 1130am. Dr. Swenson said to do bladder scan, if there is more than 150 mL urine, do straight catheterization. Notified pt's son Jose. Jose said pt does not have a history of seizures but is getting Vimpat prophylactically only.
--- NOTE | 2018-04-09 20:00 | NUR ---
Bladder scan done as ordered with 106 ml residual. Charge nurse made aware. Pt calm and comfortable without s/s of pain or discomfort. No bladder distention noted. Area soft to touch without tenderness noted. Will continue to monitor.
[2018-04-09 20:02] VITALS: BP 124/70
--- NOTE | 2018-04-09 20:57 | NUR ---
pt received on aerosol via trach with charted settings. airway patent. trach secure via trach tie. pt alert. ambu bag and back up trach at bedside. suctioned a small amount of thick white secretions. pt hob at 30 degrees. suctioned oral secretion from pts mouth Addendum: 04/09/18 at 2058 by PHILIPP LIMON RT Amended: Links added.
[2018-04-09] MEDS: PRAZOSIN HCL 1 MG CAPSULE PO SCH (21:00)
[2018-04-09] MEDS: ATORVASTATIN 10 MG TABLET GT SCH (21:54)
[2018-04-09] MEDS: LATANOPROST EYE DROP 0.005% 2.5 ML BOTTLE EACHEYE SCH (21:54)
[2018-04-10] MEDS: FAMOTIDINE (20 MG) 20 MG TABLET GT SCH (05:19)
[2018-04-10] MEDS: METOCLOPRAMIDE HCL 10 MG/10 ML UDC GT SCH ×2 (05:19)
[2018-04-10] MEDS: INSULIN REGULAR, HUMAN 100 UNIT/ML 3 ML VIAL SQ PRN ×3 (05:56→18:36)
[2018-04-10] MEDS: BLOOD SUGAR DIAGNOSTIC 1 EACH STRIP IN SCH ×4 (05:56→23:15)
[2018-04-10] MEDS: PIPERACILLIN /TAZOBACTAM 4.5 G in IV D5W 50 ML IV SCH ×5 (06:00→17:34)
[2018-04-10 08:10] VITALS: BP 137/75
[2018-04-10] MEDS: FINASTERIDE (5 MG) 5 MG TABLET GT SCH (09:00)
[2018-04-10] MEDS: LINAGLIPTIN 5 MG TABLET GT SCH (09:00)
[2018-04-10] MEDS: BETHANECHOL CHLORIDE (25 MG) 25 MG TABLET GT SCH (09:00)
[2018-04-10] MEDS: FERROUS SULFATE - FOR SA ONLY 330 MG/7.5 ML UDC GT SCH (09:00)
[2018-04-10] MEDS: SIMETHICONE 80 MG TAB.CHEW GT SCH (09:00)
[2018-04-10] MEDS: DOCUSATE SODIUM LIQ 100 MG/10 ML UDC GT SCH (09:00)
[2018-04-10] MEDS: LACOSAMIDE 50 MG TABLET GT SCH ×2 (09:00→21:00)
[2018-04-10] MEDS: prednisoLONE ACETATE OPHT DROPS 5 ML BOTTLE EACHEYE SCH ×2 (09:00→17:00)
[2018-04-10] MEDS: DORZOLAMIDE OPTH 2% 10 ML BOTTLE EACHEYE SCH ×3 (09:00→17:00)
[2018-04-10] MEDS: ASCORBIC ACID 500 MG TABLET GT SCH (09:00)
[2018-04-10] MEDS: METOPROLOL TARTRATE 25 MG TABLET PO SCH ×2 (09:00→21:00)
[2018-04-10] MEDS: NYSTATIN (PYXIS) 500,000 UNIT/5 ML ORAL.SUSP BC SCH ×4 (09:00→21:24)
[2018-04-10] MEDS: AMLODIPINE BESYLATE 5 MG TABLET GT SCH (09:00)
[2018-04-10] MEDS: POLYETHYLENE GLYCOL 3350 17 GM POWD.PACK GT SCH (09:00)
[2018-04-10] MEDS ORDERED: DIATR MEGLU/DIATRIZOATE SODIUM 120 ML BOTTLE (GASTROGRAPHIN) ONE ×2 (09:32→17:22)
--- NOTE | 2018-04-10 09:46 | NUR ---
PT REC'D ON COOL AEROSOL 28% VIA Arkmicro #6DCT. CUFF IS DEFLATED. SX'D LARGE AMT OF THICK DAILEY SECRETIONS. SPO2 WNL. NO RESP. DISTRESS NOTED. WILL CONTINUE TO MONITOR PT. Addendum: 04/10/18 at 0948 by TOMMIE HEWITT RT Amended: Links added.
--- NOTE | 2018-04-10 15:02 | NUR ---
CHANI faxed referral to office of Dr. Fe ROUSE ([phone] fax: [phone]) as resident is a new admit to subacute and is in need of initial exam. Dr. Beto ROUSE will come on Monday April 23, 2018 at 8:30AM. CHANI will inform the resident's son.
--- NOTE | 2018-04-10 15:40 | NUR ---
BRANDO Quigley seen and examined the pt and ordered to put the pt on continuos pulse oximeter monitoring Q 4hrs to know the oxygen demand.RT made aware and new orders noted and carried out.
--- NOTE | 2018-04-10 16:30 | NUR ---
Pt noted with closed blister on right and left groin,called ordered to apply Tegaderm Q shift.Responsible republican Lucisu Torres made aware about the new orders.New orders noted and carried out. Addendum: 04/10/18 at 1703 by FRANCISCO BRAVO RN WRONG PT CHARTING
--- NOTE | 2018-04-10 17:50 | NUR ---
,responsible democrat made aware about the updates and new orders.He appreciated about the call and he said will come and see the pt today.
--- NOTE | 2018-04-10 20:28 | NUR ---
pt received on aerosol via trach with charted settings. airway patent. trach secure via trach tie. pt alert. ambu bag and back up trach at bedside. suctioned a moderate amount of thick brown secretions. pt hob at 30 degrees. suctioned oral secretion from pts mouth Addendum: 04/10/18 at 2030 by PHILIPP LIMON RT Amended: Links added.
[2018-04-10 20:34] VITALS: BP 132/74
[2018-04-10] MEDS: CHLORHEXIDINE GLUCONATE 15 ML UDC MM SCH (21:00)
[2018-04-10] MEDS: POVIDONE IODINE TP SCH ×3 (21:00)
[2018-04-10] MEDS: Z GUARD REMEDY 4 OZ OINT TP SCH (21:00)
[2018-04-10] MEDS: MICONAZOLE NITRATE 2% CREAM 1 EA TUBE TP SCH (21:00)
[2018-04-10] MEDS: PRAZOSIN HCL 1 MG CAPSULE PO SCH (21:00)
[2018-04-10] MEDS: HYDROGEN PEROXIDE 480 ML BOTTLE TP SCH (21:00)
[2018-04-10] MEDS: LATANOPROST EYE DROP 0.005% 2.5 ML BOTTLE EACHEYE SCH (21:25)
[2018-04-10] MEDS: ATORVASTATIN 10 MG TABLET GT SCH (21:25)
[2018-04-11] MEDS: FAMOTIDINE (20 MG) 20 MG TABLET GT SCH (05:51)
[2018-04-11] MEDS: METOCLOPRAMIDE HCL 10 MG/10 ML UDC GT SCH ×5 (05:51→23:31)
[2018-04-11] MEDS: BLOOD SUGAR DIAGNOSTIC 1 EACH STRIP IN SCH ×4 (06:04→23:31)
[2018-04-11] MEDS: INSULIN REGULAR, HUMAN 100 UNIT/ML 3 ML VIAL SQ PRN ×4 (06:05→23:32)
[2018-04-11] MEDS: PIPERACILLIN /TAZOBACTAM 4.5 G in IV D5W 50 ML IV SCH ×5 (06:40→18:28)
[2018-04-11 07:41] LABS: BASOPHILS % (AUTO) 0.2 % (0.0-2.0); EOSINOPHILS % (AUTO) 1.1 % (0.0-6.0); HEMATOCRIT 24 % (39-51); HEMOGLOBIN 7.7 g/dL (13.5-17.5); LYMPHOCYTES % (AUTO) 9.9 % (20.0-44.0); MEAN CORPUSCULAR HEMOGLOBIN 29 PG (26.0-33.0); MEAN CORPUSCULAR HGB CONC 32 g/dl (31.0-36.0); MEAN CORPUSCULAR VOLUME 92 fL (80-96); MONOCYTES # (AUTO) 0.7 /CMM (0.1-1.30); NEUTROPHILS # (AUTO) 8.6 /CMM (1.8-8.9); NEUTROPHILS % (AUTO) 81.8 % (43.0-81.0); PLATELET COUNT (AUTO) 207 /CMM (150-450); RDW COEFFICIENT OF VARIATION 17.1 (11.5-15.0); RED BLOOD CELL COUNT(AUTO) 2.62 MIL/uL (4.5-6.0); WHITE BLOOD COUNT (AUTO) 10.6 K/uL (4.3-11.0)
[2018-04-11 07:57] VITALS: BP 122/79
[2018-04-11 07:57] LABS: CALCIUM, SERUM 8.6 mg/dL (8.5-10.1); CARBON DIOXIDE 34 mmol/L (21-32); CHLORIDE 109 mmol/L (98-107); CREATININE 1.5 mg/dL (0.6-1.3); GLUCOSE 146 mg/dL (74-106); MAGNESIUM 2.3 mg/dL (1.8-2.4); PHOSPHORUS 3.6 mg/dL (2.5-4.9); POTASSIUM 3.2 mmol/L (3.5-5.1); SODIUM SERUM 150 mmol/L (136-145); UREA NITROGEN, BLOOD 28 mg/dL (7-18)
--- NOTE | 2018-04-11 08:00 | NUR ---
RT PT RECEIVED TRACHED ON COOL AEROSOL, TOLERATING WELL. PT IS AWAKE AND RESPONDS TO STIMULI WHEN SX'D. NO RESPIRATORY DISTRESS NOTED AT THIS TIME, WILL CONTINUE TO MONITOR. Addendum: 04/11/18 at 1037 by MARCELO KENNEDY RT Amended: Links added.
[2018-04-11] MEDS: FINASTERIDE (5 MG) 5 MG TABLET GT SCH (09:00)
[2018-04-11] MEDS: ASCORBIC ACID 500 MG TABLET GT SCH (09:00)
[2018-04-11] MEDS: CHLORHEXIDINE GLUCONATE 15 ML UDC MM SCH ×2 (09:00→21:09)
[2018-04-11] MEDS: NYSTATIN (PYXIS) 500,000 UNIT/5 ML ORAL.SUSP BC SCH ×4 (09:00→21:09)
[2018-04-11] MEDS: MICONAZOLE NITRATE 2% CREAM 1 EA TUBE TP SCH ×2 (09:00→21:12)
[2018-04-11] MEDS: SIMETHICONE 80 MG TAB.CHEW GT SCH ×3 (09:00→17:00)
[2018-04-11] MEDS: FERROUS SULFATE - FOR SA ONLY 330 MG/7.5 ML UDC GT SCH (09:00)
[2018-04-11] MEDS: Z GUARD REMEDY 4 OZ OINT TP SCH ×2 (09:00→21:13)
[2018-04-11] MEDS: BETHANECHOL CHLORIDE (25 MG) 25 MG TABLET GT SCH ×3 (09:00→17:00)
[2018-04-11] MEDS: AMLODIPINE BESYLATE 5 MG TABLET GT SCH (09:00)
[2018-04-11] MEDS: POVIDONE IODINE TP SCH ×6 (09:00→21:13)
[2018-04-11] MEDS: HYDROGEN PEROXIDE 480 ML BOTTLE TP SCH ×2 (09:00→21:12)
[2018-04-11] MEDS: DORZOLAMIDE OPTH 2% 10 ML BOTTLE EACHEYE SCH ×3 (09:00→17:00)
[2018-04-11] MEDS: DOCUSATE SODIUM LIQ 100 MG/10 ML UDC GT SCH ×2 (09:00→17:00)
[2018-04-11] MEDS: prednisoLONE ACETATE OPHT DROPS 5 ML BOTTLE EACHEYE SCH ×2 (09:00→17:53)
[2018-04-11] MEDS: METOPROLOL TARTRATE 25 MG TABLET PO SCH ×2 (09:00→21:00)
[2018-04-11] MEDS: LINAGLIPTIN 5 MG TABLET GT SCH (09:00)
[2018-04-11] MEDS: LACOSAMIDE 50 MG TABLET GT SCH ×2 (09:00→21:00)
[2018-04-11] MEDS: POLYETHYLENE GLYCOL 3350 17 GM POWD.PACK GT SCH ×2 (09:00→17:00)
--- NOTE | 2018-04-11 12:15 | NUR ---
Obtain an order from Dr. Ramírez for an ID consult with Dr. De Dios to follow-up resident's ATB. Dr. De Dios aware. Dr. Ramírez requested a copy of CXR done at [facility]. Spoke with Milena, case management assistant at [facility] and requested chest XRAY to be faxed to subacute.
--- NOTE | 2018-04-11 14:00 | NUR ---
Relayed CXRY result from requested from [facility] to Dr. Ramírez including echocardiogram. NNO given at this time.
--- NOTE | 2018-04-11 16:10 | NUR ---
Resident blinks his eyes when calling his name. Most of the times, his eyes are close. GT connected to suction, with greenish output about 700 ml at this time. Resident in no acute distress/ discomfort. Continue to be NPO including medications. Patient on IVF D5NS with 20meq KCL at 100 cc/hr. midline in the L upper arm, dressing changed done, line patent. Patient has x1 urine output PVR done obtain 133 ml. Endorsed to monitor urine output.
--- NOTE | 2018-04-11 19:15 | NUR ---
Dr. Johns, patient's son at bedside and made aware of the following diagnostic lab results, echocardiogram, SBFT, stat KUB done today and CBC and BMP including the change in IVF order. Dr. Matthew Parker and Nkechi Quigley both seen the patient but son not in the room at that time of visit. However he spoke with Nkechi Ashley, [employer] MACHINE OPERATOR earlier this afternoon wherein she ordered stat KUB. Left Nkechi a message regarding the KUB result.
--- NOTE | 2018-04-11 20:00 | NUR ---
Relayed labs results to Dr. Ramírez with new order to dc D5NS and change to D5 1/2 NS with 20meq KCl 100cc/hr orders carried out and son at bedside made aware.Pt looks comfortable at this time,on continuos gt suctioned with greenish output.Will continue to monitor.
[2018-04-11] MEDS: Potassium Chloride 20 MEQ in IV D5/0.45 NACL 1,000 ML IV PRN (20:54)
[2018-04-11] MEDS: PRAZOSIN HCL 1 MG CAPSULE PO SCH (21:00)
[2018-04-11] MEDS: LATANOPROST EYE DROP 0.005% 2.5 ML BOTTLE EACHEYE SCH (21:13)
[2018-04-11] MEDS: ATORVASTATIN 10 MG TABLET GT SCH (21:13)
[2018-04-11 22:02] VITALS: BP 125/77
[2018-04-12] MEDS: METOCLOPRAMIDE HCL 10 MG/10 ML UDC GT SCH ×4 (05:06→23:37)
[2018-04-12] MEDS: FAMOTIDINE (20 MG) 20 MG TABLET GT SCH (05:06)
[2018-04-12] MEDS: PIPERACILLIN /TAZOBACTAM 4.5 G in IV D5W 50 ML IV SCH ×5 (05:19→18:32)
[2018-04-12] MEDS: BLOOD SUGAR DIAGNOSTIC 1 EACH STRIP IN SCH ×4 (06:05→23:37)
[2018-04-12] MEDS: INSULIN REGULAR, HUMAN 100 UNIT/ML 3 ML VIAL SQ PRN ×4 (06:06→23:37)
--- NOTE | 2018-04-12 06:58 | NUR ---
Pt midline catheter unable to flush,clogged.Attempted to insert PIV not successful,pt is hard stick.Will endorse to get midline insertion order.Pt remains stable still with greenish gastric output connected to suction.Pt voided x 2 and had bowel movement.Will continue to monitor.
[2018-04-12 07:59] VITALS: BP 126/71
[2018-04-12] MEDS: FERROUS SULFATE - FOR SA ONLY 330 MG/7.5 ML UDC GT SCH (09:00)
[2018-04-12] MEDS: POLYETHYLENE GLYCOL 3350 17 GM POWD.PACK GT SCH ×2 (09:00→17:00)
[2018-04-12] MEDS: ASCORBIC ACID 500 MG TABLET GT SCH (09:00)
[2018-04-12] MEDS: NYSTATIN (PYXIS) 500,000 UNIT/5 ML ORAL.SUSP BC SCH ×4 (09:00→21:24)
[2018-04-12] MEDS: DOCUSATE SODIUM LIQ 100 MG/10 ML UDC GT SCH ×2 (09:00→17:00)
[2018-04-12] MEDS: BETHANECHOL CHLORIDE (25 MG) 25 MG TABLET GT SCH ×3 (09:00→17:00)
[2018-04-12] MEDS: FINASTERIDE (5 MG) 5 MG TABLET GT SCH (09:00)
[2018-04-12] MEDS: LACOSAMIDE 50 MG TABLET GT SCH ×2 (09:00→21:00)
[2018-04-12] MEDS: AMLODIPINE BESYLATE 5 MG TABLET GT SCH (09:00)
[2018-04-12] MEDS: LINAGLIPTIN 5 MG TABLET GT SCH (09:00)
[2018-04-12] MEDS: SIMETHICONE 80 MG TAB.CHEW GT SCH ×3 (09:00→17:43)
[2018-04-12] MEDS: METOPROLOL TARTRATE 25 MG TABLET PO SCH ×2 (09:00→21:00)
--- NOTE | 2018-04-12 09:00 | NUR ---
Inserted peripheral IV line with G 20 on the right hand x 1 attempt. Also inserted another peripheral IV line on the left hand.
[2018-04-12] MEDS: DORZOLAMIDE OPTH 2% 10 ML BOTTLE EACHEYE SCH ×3 (09:55→17:42)
[2018-04-12] MEDS: prednisoLONE ACETATE OPHT DROPS 5 ML BOTTLE EACHEYE SCH ×2 (09:55→17:42)
[2018-04-12] MEDS: CHLORHEXIDINE GLUCONATE 15 ML UDC MM SCH ×2 (09:56→21:24)
[2018-04-12] MEDS: POVIDONE IODINE TP SCH ×6 (09:57→21:24)
[2018-04-12] MEDS: Z GUARD REMEDY 4 OZ OINT TP SCH ×2 (09:57→21:24)
[2018-04-12] MEDS: HYDROGEN PEROXIDE 480 ML BOTTLE TP SCH ×2 (09:57→21:24)
[2018-04-12] MEDS: MICONAZOLE NITRATE 2% CREAM 1 EA TUBE TP SCH ×2 (09:57→21:00)
[2018-04-12] MEDS: Potassium Chloride 20 MEQ in IV D5/0.45 NACL 1,000 ML IV PRN ×2 (11:00→23:00)
--- NOTE | 2018-04-12 18:09 | NUR ---
Midline appears clogged, unable to flush it. Received order to DC midline. Scant amount of bleeding noted when it was removed. Applied pressure to the area and bleeding stopped. Pressure dressing was applied. Notified pt's son who is visiting. Also notified him that 2 peripheral lines were inserted and he said it is fine.
--- NOTE | 2018-04-12 18:39 | NUR ---
Pt was seen by DIETETIC TECHNICIAN REGISTERED Yael Quigley. Received order to do CT abdomen and pelvis with contrast of Gastrograffin via G-tube and IV contrast due to abdominal distention and vomiting. She also ordered to check pt's creatinine. She said to relay the creatinine level to her before doing the CT scan. She discussed pt's condition and CT scan order with pt's son who was at bedside.
[2018-04-12 20:12] VITALS: BP 126/71
[2018-04-12] MEDS: PRAZOSIN HCL 1 MG CAPSULE PO SCH (21:00)
[2018-04-12] MEDS: LATANOPROST EYE DROP 0.005% 2.5 ML BOTTLE EACHEYE SCH (21:25)
[2018-04-12] MEDS: ATORVASTATIN 10 MG TABLET GT SCH (21:44)
[2018-04-13] MEDS: BLOOD SUGAR DIAGNOSTIC 1 EACH STRIP IN SCH ×2 (05:28→12:00)
[2018-04-13] MEDS: METOCLOPRAMIDE HCL 10 MG/10 ML UDC GT SCH ×2 (05:28→12:00)
[2018-04-13] MEDS: FAMOTIDINE (20 MG) 20 MG TABLET GT SCH (05:28)
[2018-04-13] MEDS: INSULIN REGULAR, HUMAN 100 UNIT/ML 3 ML VIAL SQ PRN ×2 (05:29→15:38)
[2018-04-13] MEDS: PIPERACILLIN /TAZOBACTAM 4.5 G in IV D5W 50 ML IV SCH ×4 (05:36→12:10)
[2018-04-13 07:32] VITALS: BP 136/79
[2018-04-13 09:00] VITALS: BP 136/79
[2018-04-13] MEDS: prednisoLONE ACETATE OPHT DROPS 5 ML BOTTLE EACHEYE SCH ×2 (09:00→15:36)
[2018-04-13] MEDS: FINASTERIDE (5 MG) 5 MG TABLET GT SCH (09:00)
[2018-04-13] MEDS: DOCUSATE SODIUM LIQ 100 MG/10 ML UDC GT SCH (09:00)
[2018-04-13] MEDS: Z GUARD REMEDY 4 OZ OINT TP SCH (09:00)
[2018-04-13] MEDS: FERROUS SULFATE - FOR SA ONLY 330 MG/7.5 ML UDC GT SCH (09:00)
[2018-04-13] MEDS: CHLORHEXIDINE GLUCONATE 15 ML UDC MM SCH (09:00)
[2018-04-13] MEDS: ASCORBIC ACID 500 MG TABLET GT SCH (09:00)
[2018-04-13] MEDS: NYSTATIN (PYXIS) 500,000 UNIT/5 ML ORAL.SUSP BC SCH ×2 (09:00→13:00)
[2018-04-13] MEDS: DORZOLAMIDE OPTH 2% 10 ML BOTTLE EACHEYE SCH ×2 (09:00→13:00)
[2018-04-13] MEDS: LACOSAMIDE 50 MG TABLET GT SCH (09:00)
[2018-04-13] MEDS: SIMETHICONE 80 MG TAB.CHEW GT SCH ×2 (09:00→13:00)
[2018-04-13] MEDS: METOPROLOL TARTRATE 25 MG TABLET PO SCH (09:00)
[2018-04-13] MEDS: LINAGLIPTIN 5 MG TABLET GT SCH (09:00)
[2018-04-13] MEDS: POLYETHYLENE GLYCOL 3350 17 GM POWD.PACK GT SCH (09:00)
[2018-04-13] MEDS: HYDROGEN PEROXIDE 480 ML BOTTLE TP SCH (09:00)
[2018-04-13] MEDS: BETHANECHOL CHLORIDE (25 MG) 25 MG TABLET GT SCH ×2 (09:00→13:00)
[2018-04-13] MEDS: AMLODIPINE BESYLATE 5 MG TABLET GT SCH (09:00)
[2018-04-13] MEDS: POVIDONE IODINE TP SCH ×3 (09:00)
--- NOTE | 2018-04-13 09:00 | NUR ---
Clarified order from Nkechi Quigley NP regardiing CT scan order. Patient has allergy to Iodine, new order for CT scan abdomen/pelvis without IV contrast but with oral/GT contrast. Dr. Johns notified.
[2018-04-13] MEDS: Potassium Chloride 20 MEQ in IV D5/0.45 NACL 1,000 ML IV PRN (10:03)
--- NOTE | 2018-04-13 10:20 | NUR ---
Seen and examined by Dr. Harpreet Parker. Informed him that patient is going for CT scan of abdomen/pelvis without contrast due to vomiting and abdominal distention ordered by BRANDO Benton/ Dr. Matthew Parker, surgeon. Dr. Parker also made aware that patient is retaining urine. Per security shift supervisor, patient has no urine output, it read >510 ml. in the bladder scanner, in and out cath was done, obtain 500ml. According to Dr. Parker, may do in and out Q 6 hours if no urine output and insert F/C if PVR greater than 500 ml. Order carried out.
[2018-04-13] MEDS ORDERED: PANTOPRAZOLE 40 MG VIAL IV SCH (14:00)
--- NOTE | 2018-04-13 15:30 | NUR ---
Notified Dr. Matthew Parker of CT abdomen/pelvis result showing closed-loop small bowel obstruction. He immediately ordered to call patient's son to discuss the result of the CT scan including his plan to take him for emergency surgery. Patient's son in agreement with the plan for laparoscopic exploration possible bowel resection, possible ostomy possible open. Dr. Johns said he will be in to sign the consent. Meanwhile notified nursing pressure supervisor, director school of nursing, business office for possible direct transfer to OR. Paged Dr. Harpreet Parker, attending MD to notify of the plan awaiting for his return call.
--- NOTE | 2018-04-13 16:14 | NUR ---
Placed a follow-up call to Dr. Vania Parker to obtain a direct transfer order to OR. Awaiting for his return call.
--- NOTE | 2018-04-13 16:34 | NUR ---
PT TRANSPORTED TO OR FOR SURGERY.
--- NOTE | 2018-04-13 16:35 | NUR ---
Dr. Parker returned the call. Notified MD that Dr. Matthew Parker scheduled an emergency surgery secondary to CT scan result showing closed-loop SBO. When asked if he wants patient to be transferred to ER first, he said to sent him to OR directly. Nursing supervisor [place] and subacute nurse manger aware of the plan. Report given to OR nurse c/o Nkechi. Patient taken to surgery at this time. Resident's son signed consent witnessed by OR nurse. Condition stable.
[2018-04-13] MEDS ORDERED: LIDOCAINE 2% 50 ML MDV IJ ONE (17:48)
[2018-04-13] MEDS ORDERED: BUPIVACAINE MPF 0.5% W/EPI INJ 30 ML VIAL ONE (17:48)
[2018-04-13] MEDS ORDERED: DORZ10DR10 EACHEYE (18:18)
[2018-04-13] MEDS ORDERED: MICO15CR9 TP (18:18)
[2018-04-13] MEDS ORDERED: IPRA0.2S9 IH (18:18)
[2018-04-13] MEDS ORDERED: PANT40VI IV (18:18)
[2018-04-13] MEDS ORDERED: DEXT50DI8 IV (18:18)
[2018-04-13] MEDS ORDERED: BLOO-668 IN (18:18)
[2018-04-13] MEDS ORDERED: HYDR1SOL TD (18:18)
[2018-04-13] MEDS ORDERED: NUT.237L30 GT (18:18)
[2018-04-13] MEDS ORDERED: ALBU2.5V38 IH (18:18)
[2018-04-13] MEDS ORDERED: ALLA266C2 TP (18:18)
[2018-04-13] MEDS ORDERED: GLUC1KIT IM (18:18)
[2018-04-13] MEDS ORDERED: [UNRECOGNIZED DRUG - CODE] IV (18:18)
[2018-04-13] MEDS ORDERED: [UNRECOGNIZED DRUG - CODE] IV (18:18)
[2018-04-13] MEDS ORDERED: NON-FORMULARY TP (18:24)
--- NOTE | 2018-04-13 18:45 | NUR ---
Report given to BRIGHT Stewart from ICU regarding patient's condition and reason for transfer. Patient transferred directly to ICU s/p laparoscopic exploration due to closed-loop small bowel obstruction. Informed Pat that patient has tendency to retain urine, therefore may need to scan bladder for PVR. All paper works given to OR staff, H&P, labs, Xray, CT scan result of abdomen and pelvis, preferred intensity of care and medication reconciliation. Informed ICU nurse that patient's son Jose Ruizy is the responsible democrat, he is aware of the transfer and very involve with the care of his father. Appreciated the report.
[2018-04-13] MEDS ORDERED: MORPHINE SULFATE INJ 2 MG/ML DISP.SYRIN IV PRN (19:00)
== END 2018-04-13 16:35 | DRG 189 ==
LOC: SA 15:50
PROVIDERS: ADMIT Internal Medicine Nephrology; ATTEND Internal Medicine Nephrology
PROC: 05H633Z Insertion of Infusion Device into Left Subclavian Vein, Percutaneous Approach (ICD-10-PCS; principal; 2018-04-07)
PROC: B547ZZA Ultrasonography of Left Subclavian Vein, Guidance (ICD-10-PCS; 2018-04-07)
DX: J96.21 Acute and chronic respiratory failure with hypoxia (principal); I21.4 Non-ST elevation (NSTEMI) myocardial infarction; G93.49 Other encephalopathy; K56.609 Unspecified intestinal obstruction, unspecified as to partial versus complete obstruction; Z86.73 Personal history of transient ischemic attack (TIA), and cerebral infarction without residual deficits; I12.9 Hypertensive chronic kidney disease with stage 1 through stage 4 chronic kidney disease, or unspecified chronic kidney disease; E11.22 Type 2 diabetes mellitus with diabetic chronic kidney disease; N18.9 Chronic kidney disease, unspecified; Z95.0 Presence of cardiac pacemaker; E78.5 Hyperlipidemia, unspecified; D64.9 Anemia, unspecified; I25.10 Atherosclerotic heart disease of native coronary artery without angina pectoris
CPT/HCPCS: 31720; 36415; 71045-TC; 74018; 74250-TC; 76700-TC; 80048-TC; 80053-TC; 80076-TC; 82150-TC; 82565-TC; 82962-TC; 83690-TC; 83735-TC; 84100-TC; 85025-TC; 86580-TC; 93307-TC; 94640-TC; 94760-TC; 94761-TC; 94762-TC; A4606; A4623; A7526; C9113; J1610; J1815; J2543; J3480; J3490; J7042; J7060; J8597; Q9963; Z7610

== ENCOUNTER 2018-04-13 08:20 | Outpatient (CLI) | payer MEDICARE, OTHER ==
[~2018-04-13 08:20] MED LIST: ACET650S26 GT; AMLO5TAB2 GT; ASCO250T5 GT; ATOR40TA GT; BETH25TA GT; BISA10SU8 RC; BRIN10DR EACHEYE; BUME1TAB4 GT; CHLO473M5 MM; DOCU50LI GT; FAMO-131 GT; FERR300L GT; FINA5TAB3 GT; GLUC1KIT IM; INSU100I19 SQ; INSU100V3 SQ; LACO10SO GT; LATA2.5D7 EACHEYE; LIDOCAINE; LINA5TAB GT; MAGN400O6 GT; METO25TA20 GT; METO5SOL2 GT; NITR1OIN2 TD; NYST5ORA BC; OLAN2.5T3 GT; POLY17PO4 GT; PRAZ2CAP2 GT; PRED5DRO16 EACHEYE; SIME80TA15 GT; [UNRECOGNIZED DRUG - CODE] TP
[2018-04-13] MEDS ORDERED: DIATR MEGLU/DIATRIZOATE SODIUM 30 ML BOTTLE (GASTROGRAPHIN) ONE (09:25)
[2018-04-13] MEDS ORDERED: [UNRECOGNIZED DRUG - CODE] IV (18:18)
[2018-04-13] MEDS ORDERED: [UNRECOGNIZED DRUG - CODE] IV (18:18)
[2018-04-13] MEDS ORDERED: NUT.237L30 GT (18:18)
[2018-04-13] MEDS ORDERED: ALBU2.5V38 IH (18:18)
[2018-04-13] MEDS ORDERED: ALLA266C2 TP (18:18)
[2018-04-13] MEDS ORDERED: PANT40VI IV (18:18)
[2018-04-13] MEDS ORDERED: DORZ10DR10 EACHEYE (18:18)
[2018-04-13] MEDS ORDERED: GLUC1KIT IM (18:18)
[2018-04-13] MEDS ORDERED: DEXT50DI8 IV (18:18)
[2018-04-13] MEDS ORDERED: MICO15CR9 TP (18:18)
[2018-04-13] MEDS ORDERED: IPRA0.2S9 IH (18:18)
[2018-04-13] MEDS ORDERED: BLOO-668 IN (18:18)
[2018-04-13] MEDS ORDERED: HYDR1SOL TD (18:18)
[2018-04-13] MEDS ORDERED: NON-FORMULARY TP (18:24)
[2018-04-14 12:38] LABS: ABG BASE EXCESS 8.6 mmol/L; ABG OXYGEN SATURATION 95.4 % (92.0-98.5); ABG PCO2 27.9 mmHg (35.0-45.0); ABG PH 7.647 (7.350-7.450); ABG PO2 80.9 mmHg (75.0-100.0); AaDO2 136.2 mmHg; COHb 0.2 % (0.5-1.5); MetHb 0.7 % (0.0-1.5); O2Hb 94.5 % (94.0-97.0); PEEP,BG 5 cm H2O; SITE, ABG Right Radial; VT, ABG 550 mL
== END 2018-04-13 23:59 | disposition home or self-care (01) ==
LOC: CT 08:20
PROVIDERS: ATTEND Internal Medicine Nephrology
DX: J98.11 Atelectasis (principal); J90 Pleural effusion, not elsewhere classified; R14.0 Abdominal distension (gaseous); R11.10 Vomiting, unspecified
CPT/HCPCS: 36600; 74176; Q9963

== ENCOUNTER 2018-04-13 16:09 | Inpatient (IN) | payer MEDICARE, OTHER ==
[2018-04-13] VITALS (14 sets, daily range): BP systolic 124–169; BP diastolic 64–93
[~2018-04-13] VITALS: Ht 177.8 cm; Wt 85.3 kg
[2018-04-13] MEDS ORDERED: ROCURONIUM BROMIDE 50 MG/5 ML ONE ×2 (17:31)
[2018-04-13] MEDS ORDERED: HYDR1SOL TD (18:18)
[2018-04-13] MEDS ORDERED: DORZ10DR10 EACHEYE (18:18)
[2018-04-13] MEDS ORDERED: DEXT50DI8 IV (18:18)
[2018-04-13] MEDS ORDERED: [UNRECOGNIZED DRUG - CODE] IV (18:18)
[2018-04-13] MEDS ORDERED: MICO15CR9 TP (18:18)
[2018-04-13] MEDS ORDERED: IPRA0.2S9 IH (18:18)
[2018-04-13] MEDS ORDERED: PANT40VI IV (18:18)
[2018-04-13] MEDS ORDERED: [UNRECOGNIZED DRUG - CODE] IV (18:18)
[2018-04-13] MEDS ORDERED: ALBU2.5V38 IH (18:18)
[2018-04-13] MEDS ORDERED: NUT.237L30 GT (18:18)
[2018-04-13] MEDS ORDERED: GLUC1KIT IM (18:18)
[2018-04-13] MEDS ORDERED: BLOO-668 IN (18:18)
[2018-04-13] MEDS ORDERED: ALLA266C2 TP (18:18)
[2018-04-13] MEDS ORDERED: NON-FORMULARY TP (18:24)
--- NOTE | 2018-04-13 18:55 | NUR ---
RT NOTE PT PLACED ON VENT BY ANASTESIOLOGIST. BAGGED PT TO ICU. PT HAS SHILEY 6 DCT ON. CUFF INFLATED. SETTINGS FOLLOW AC 16 550 100% +5. ALARMS SET PER PROTOCOL AND AUDIBLE. VENT PLUGGED IN TO RED OUTLET. AMBU BAG AT BED SIDE. NO DISTRESS NOTED AT MOMENT. PT ENDORSED TO NOC RT. Addendum: 04/13/18 at 1857 by CARINA SUAREZ RT Amended: Links added.
--- NOTE | 2018-04-13 20:50 | NUR ---
Received pt on ventilator support, pt stable no sob or distress noted at this time, alarms are on and audible, ventilator is plugged into red outlet, ambu bag at bedside. Addendum: 04/13/18 at 2050 by JONN GOODEN RT Amended: Links added.
--- NOTE | 2018-04-13 21:00 | NUR ---
1999 Received patient from Pat THAKKAR and EmilyRN from PACU for continuity of care.Patient sedated s/p Explor Lap and Lysis of adhesion with abdominal dressing C/D/I. Afebrile.SR per monitor.Trach to mechanical vent on AC 16,TV 550,FIO2 100%,PEEP 5.No respiratory distress noted.GT to LIWS draining greenish liquid.Abdomen distended with hypoactive BS.Carmelina urine per FC. Turned and repositioned.
--- NOTE | 2018-04-13 21:00 | NUR ---
No post operative orders for patient.Paged surgeon .
--- NOTE | 2018-04-13 21:25 | NUR ---
returned call made aware that no post op orders for this patient. Per MD orders made when patient in Sub Acute. Was instructed to go to sub acute and copy orders.Asked Charge Nurse,ED to go to sub acute to check orders.
[2018-04-13] MEDS ORDERED: ALBUTEROL FS 2.5 MG/0.5 ML VIAL.NEB NEB PRN (22:30)
[2018-04-13] MEDS ORDERED: IPRATROPIUM NEB FS 0.5 MG/2.5 ML AMPUL.NEB NEB PRN (22:30)
[2018-04-13] MEDS: MORPHINE SULFATE INJ 2 MG/ML DISP.SYRIN IV PRN (22:33)
[2018-04-13] MEDS ORDERED: NITROGLYCERIN 30 GM TUBE TP PRN (23:00)
[2018-04-13] MEDS ORDERED: ACETAMINOPHEN 650 MG/20.3 ML UDC GT PRN (23:00)
--- NOTE | 2018-04-13 23:03 | NUR ---
Patient noted with elevated BP and Tachypneic RR 28 grimacing PRN pain medicine administered. Patient unable to verbalized relief but no apparent distress after 30 min.
[2018-04-13] MEDS: Potassium Chloride 20 MEQ in IV D5/0.45 NACL 1,000 ML IV PRN (23:13)
[2018-04-13] MEDS ORDERED: PIPERACILLIN /TAZOBACTAM 2.25 G VIAL IV ONE (23:18)
[2018-04-13] MEDS ORDERED: DEXTROSE 50%-WATER 50 ML DISP.SYRIN IV PRN (23:30)
[2018-04-14] VITALS (36 sets, daily range): BP systolic 113–167; BP diastolic 59–88
[2018-04-14] MEDS ORDERED: PIPERACILLIN /TAZOBACTAM 4.5 G in IV D5W 50 ML IV ONE ×2
[2018-04-14] MEDS: BLOOD SUGAR DIAGNOSTIC 1 EACH STRIP IN SCH ×5 (00:02→23:38)
--- NOTE | 2018-04-14 04:00 | NUR ---
Patient resting.VS remains stable.Bathed and linens changed.Turned and repositioned.
[2018-04-14] MEDS: MORPHINE SULFATE INJ 2 MG/ML DISP.SYRIN IV PRN ×2 (04:34→08:29)
--- NOTE | 2018-04-14 05:30 | NUR ---
Specimen for MRSA collected and sent to lab.
--- NOTE | 2018-04-14 06:50 | NUR ---
Patent resting VS stable. FSBS done and coverage given per sliding scale.Moderate GT output. Pain managed by morphine.Turned and repositioned.No acute distress noted.
--- NOTE | 2018-04-14 07:05 | NUR ---
CAPACITY PLANNING MANAGER- INITIAL NOTE RECEIVED PT RESTING IN BED. OPENS EYES, BUT DOES NOT FOLLOW COMMANDS. VENT/TRACH PRESENT, RESPIRATIONS EVEN AND UNLABORED, NO SOB OR DISTRESS PRESENT. BEDSIDE MONITOR REVEALS SINUS RHYTHM WITH PVCS. G-TUBE CONNECTED TO LOW INTERMITTENT SUCTION, GREEN OUTPUT NOTED. VÁSQUEZ CATHETER DRAINING TO GRAVITY. LEFT HAND 20G RUNNING D5 1/2NS +20KCL @ 100 ML/HR AND RIGHT HAND 24G HL PRESENT. WILL CONTINUE TO MONITOR.
[2018-04-14] MEDS: METOPROLOL TARTRATE 25 MG TABLET GT SCH ×2 (08:14→20:47)
[2018-04-14] MEDS: PIPERACILLIN /TAZOBACTAM 4.5 G in IV D5W 50 ML IV SCH ×4 (08:24→20:42)
[2018-04-14] MEDS: PANTOPRAZOLE 40 MG VIAL IV SCH (08:28)
[2018-04-14] MEDS: Z GUARD REMEDY 4 OZ OINT TP SCH ×2 (08:47→21:00)
[2018-04-14] MEDS: Potassium Chloride 20 MEQ in IV D5/0.45 NACL 1,000 ML IV PRN ×2 (10:59→22:39)
[2018-04-14] MEDS: MICONAZOLE NITRATE 2% CREAM 1 EA TUBE TP SCH ×2 (11:00→16:48)
[2018-04-14] MEDS: HYDROGEN PEROXIDE 480 ML BOTTLE TP SCH ×2 (11:00→21:00)
--- NOTE | 2018-04-14 12:40 | NUR ---
MODERN GREEK STUDIES PROFESSOR- ABGS DONE. RESULTS GIVEN TO DR. SANTANA. VENT CHANGES MADE ORDERED BY MD (RESULTS UNDER OTHER VISIT/ENCOUNTER ON 04/13/18). WILL CONTINUE TO MONITOR.
[2018-04-14] MEDS ORDERED: HYDROGEN PEROXIDE 480 ML BOTTLE TP PRN (13:00)
[2018-04-14] MEDS ORDERED: INSULIN REGULAR, HUMAN 100 UNIT/ML 3 ML VIAL SQ PRN ×2 (13:00)
[2018-04-14] MEDS ORDERED: NITROGLYCERIN PACKET 1 GM PACKET TD PRN (13:00)
[2018-04-14] MEDS ORDERED: Medication Not On Formulary EA (Albuterol Sulfate 2.5 MG) IH PRN (13:00)
[2018-04-14] MEDS ORDERED: DEXTROSE 50%-WATER 50 ML DISP.SYRIN IV PRN ×2 (13:00→17:30)
[2018-04-14] MEDS ORDERED: PANTOPRAZOLE 40 MG VIAL IV SCH (13:00)
[2018-04-14] MEDS ORDERED: IPRATROPIUM NEB FS 0.5 MG/2.5 ML AMPUL.NEB IH PRN (13:00)
[2018-04-14] MEDS ORDERED: BISACODYL SUPP (10 MG) 10 MG/SUPP.RECT SUPP.RECT RC PRN (13:00)
[2018-04-14] MEDS: DORZOLAMIDE OPTH 2% 10 ML BOTTLE EACHEYE SCH ×2 (13:46→16:48)
[2018-04-14] MEDS: prednisoLONE ACET 1% OPHT DROP 5 ML BOTTLE EACHEYE SCH (16:45)
[2018-04-14] MEDS: INSULIN REGULAR, HUMAN 100 UNIT/ML 3 ML VIAL SQ PRN ×2 (17:24→23:40)
[2018-04-14] MEDS ORDERED: BLOOD SUGAR DIAGNOSTIC 1 EACH STRIP IN SCH ×2 (18:00)
[2018-04-14] MEDS ORDERED: TAZOBACTAM IV SCH (18:00)
[2018-04-14] MEDS ORDERED: PIPERACILLIN IV SCH (18:00)
--- NOTE | 2018-04-14 18:59 | NUR ---
PT ON VENT A/C MODE PT HAS A SHILEY 6 TRACH WHICH IS SECURE PATIENT AND INTACT. PT BREATH SOUNDS COURSE SX PRN RETURNING SMALL/MODERATE PALE YELLOW SECRETIONS. VENT ALARMS CHECKED FOUND TO BE FUNCTIONAL, AUDIBLE, AND WITHIN RAGE. VENT PLUGGED INTO RED OUTLET, BVM AT BEDSIDE.
--- NOTE | 2018-04-14 19:47 | NUR ---
CALL CENTER DIRECTOR. INITIAL ASSESSMENT. RECEIVED THE PT REST ON THE BED. TRACH TO VENT CONNECTED. PT IS OBTUNDED. SURGERY CENTER ADMINISTRATOR SHOWING NSR. IV LT HAND 16G. IVF D51/2NSIN 20MEQ POTASSIUM 100ML/H, VENT SETTINGS SHILEY#6,AC 12,TV 500,FIO2 35%,PEEP 5. SAT 98%. FC PATENT. GT CONNECTED TO LOW INTERMITTENT SUCTION. HOB ELEVATED NPO. ABDOMENAL SURGICAL DRESSING INTACT. WILL CONTINUE TO MONITOR VITALS.
[2018-04-14] MEDS ORDERED: Z GUARD REMEDY 2 OZ OINT TP SCH (21:00)
[2018-04-14] MEDS ORDERED: MICONAZOLE NITRATE VAG CREAM 45 GM TUBE VG SCH (22:00)
[2018-04-14] MEDS: LATANOPROST EYE DROP 0.005% 2.5 ML BOTTLE EACHEYE SCH (22:38)
[2018-04-14] MEDS: CHLORHEXIDINE GLUCONATE 15 ML UDC MM SCH (22:50)
[2018-04-14] MEDS: HYDROGEN PEROXIDE 480 ML BOTTLE TP PRN (22:50)
[2018-04-15] VITALS (50 sets, daily range): BP systolic 103–142; BP diastolic 58–82
[2018-04-15] MEDS: PIPERACILLIN /TAZOBACTAM 4.5 G in IV D5W 50 ML IV SCH ×2 (01:30→08:41)
[2018-04-15 04:36] LABS: BASOPHILS % (AUTO) 0.3 % (0.0-2.0); LYMPHOCYTES # (AUTO) 1.2 /CMM (0.8-4.8); LYMPHOCYTES % (AUTO) 11.9 % (20.0-44.0); MEAN CORPUSCULAR HEMOGLOBIN 29 PG (26.0-33.0); MEAN CORPUSCULAR HGB CONC 31 g/dl (31.0-36.0); MEAN CORPUSCULAR VOLUME 91 fL (80-96); MONOCYTES # (AUTO) 0.3 /CMM (0.1-1.30); MONOCYTES % (AUTO) 3.2 % (2.0-12.0); NEUTROPHILS # (AUTO) 8.7 /CMM (1.8-8.9); NEUTROPHILS % (AUTO) 83.6 % (43.0-81.0); PLATELET COUNT (AUTO) 229 /CMM (150-450); RDW COEFFICIENT OF VARIATION 17.5 (11.5-15.0); RED BLOOD CELL COUNT(AUTO) 2.31 MIL/uL (4.5-6.0); WHITE BLOOD COUNT (AUTO) 10.4 K/uL (4.3-11.0)
--- NOTE | 2018-04-15 04:37 | NUR ---
EXPLOSIVES DETONATOR. AM CARE. ORAL CARE, BED BATH GIVEN. LINEN CHANGED. REMAINING SAME VENT SETTING TOLERATED WELL. SAT 98%. NO ACUTE DISTRESS NOTED. STUDENT MINISTRY PASTOR SHOWING NSR IV HOB ELEVATED/ FC PATENT, TURN AND REPOSITION Q2H. LT HAND IVF D5 1/2NS IN 20MEQ POTASSIUM 100ML/H. NPO. GT LOW INTERMITTENT SUCTION. WILL CONTINUE TO MONITOR VITAL.
[2018-04-15 04:40] LABS: HEMATOCRIT 21 % (39-51); HEMOGLOBIN 6.6 g/dL (13.5-17.5)
--- NOTE | 2018-04-15 04:43 | NUR ---
DATA ENTRY CLERK, LAB CALLED FOR H&H 6.6. NO ANY ACTIVE BLEEDING NOTED. REPEATED AGAIN. WILL CONTINUE TO MONITOR.
[2018-04-15 05:15] LABS: EOSINOPHILS % (MANUAL) 2 % (0-4); LYMPHOCYTES % (MANUAL) 14 % (16-48); MONOCYTES % (MANUAL) 3 % (0-11.0); NEUTROPHILS % (MANUAL) 81 (42-76)
[2018-04-15 05:27] LABS: BASOPHILS % (AUTO) 0.2 % (0.0-2.0); EOSINOPHILS % (AUTO) 1.1 % (0.0-6.0); LYMPHOCYTES % (AUTO) 9.1 % (20.0-44.0); MEAN CORPUSCULAR HEMOGLOBIN 28 PG (26.0-33.0); MEAN CORPUSCULAR HGB CONC 31 g/dl (31.0-36.0); MEAN CORPUSCULAR VOLUME 91 fL (80-96); MONOCYTES # (AUTO) 0.4 /CMM (0.1-1.30); MONOCYTES % (AUTO) 4.2 % (2.0-12.0); NEUTROPHILS % (AUTO) 85.4 % (43.0-81.0); PLATELET COUNT (AUTO) 226 /CMM (150-450); RED BLOOD CELL COUNT(AUTO) 2.33 MIL/uL (4.5-6.0); WHITE BLOOD COUNT (AUTO) 10.5 K/uL (4.3-11.0)
[2018-04-15] MEDS: BLOOD SUGAR DIAGNOSTIC 1 EACH STRIP IN SCH ×4 (05:28→23:51)
[2018-04-15 05:29] LABS: CALCIUM, SERUM 7.5 mg/dL (8.5-10.1); CARBON DIOXIDE 31 mmol/L (21-32); CHLORIDE 108 mmol/L (98-107); CREATININE 1.8 mg/dL (0.6-1.3); GLUCOSE 195 mg/dL (74-106); MAGNESIUM 1.7 mg/dL (1.8-2.4); PHOSPHORUS 2.1 mg/dL (2.5-4.9); SODIUM SERUM 148 mmol/L (136-145); UREA NITROGEN, BLOOD 21 mg/dL (7-18)
[2018-04-15 05:31] LABS: HEMATOCRIT 21 % (39-51); HEMOGLOBIN 6.5 g/dL (13.5-17.5)
[2018-04-15] MEDS: INSULIN REGULAR, HUMAN 100 UNIT/ML 3 ML VIAL SQ PRN ×3 (05:32→17:59)
[2018-04-15 05:36] LABS: POTASSIUM 2.4 mmol/L (3.5-5.1)
--- NOTE | 2018-04-15 06:29 | NUR ---
PATIENT ACCOUNTS COORDINATOR. CRITICAL LAB CALLED FOR H&H 6.01/15. POTASSIUM 2.4. PAGED DR WHITE WAITING FOR CALL BACK
--- NOTE | 2018-04-15 07:23 | NUR ---
HARDWOOD SAWYER, DR HALEY CALLED BACK. NEW ORDER RECEIVED. REPEAT H&H AT12 PM
--- NOTE | 2018-04-15 07:28 | NUR ---
ENGAGEMENT QUALITY CONSULTANT, DR CINDY VALLADARES MADE AWARE POTASSIUM 2.4, . WE ARE GOING TO CALL PRIMARY MD
--- NOTE | 2018-04-15 07:32 | NUR ---
CASINO SURVEILLANCE OFFICER- PAGED RENAL VIP FOR CRITICAL LAB RESULTS. [id number]- DR. HANSEN RETURNED PAGED. INFORMED MD OF THE FOLLOWING LAB RESULTS: 1) POTASSIUM= 2.4, MAGNESIUM= 1.7, PHOS= 2.1, H&H= 6.5/21 (REPEAT LAB DRAW). OBTAINED THE FOLLOWING ORDERS: 1) MG SULFATE 2G IV, 2) K PHOS 30 MMOL IV, 3) K CHLORIDE 40 IV X1 AND 4) 1 UNIT PRBCS. PRIMARY NURSE MARK MADE AWARE.
--- NOTE | 2018-04-15 07:39 | NUR ---
INITIAL DOOR REPAIRER BUS NOTE RCVD PT ABLE TO OPEN EYES, NOT FOLLOWING COMMANDS AT THIS TIME. SR ON TELE. TOLERATING ORDERED VENT SETTINGS. G-TUBE ON LOW INTERMITTENT SUCTION WITH SOME OUTPUT OBSERVED IN TUBING. VÁSQUEZ TO GRAVITY WITH YELLOW COLORED URINE. IV SITES C/D/I/PATENT. NO S/O INFILTRATION/PHLEBITIS OBSERVED UPON FLUSHING. WILL CONTINUE TO MONITOR PT FOR SAFETY AND COMFORT. CALL LIGHT WITHIN REACH. BED IN LOW AND LOCKED POSITION.
--- NOTE | 2018-04-15 07:46 | NUR ---
RT PATIENT REC'D TRACHED ON [facility] VENT IN CRITICAL CONDITION. VENT SETTINGS SET BY . VENT ALARMS CHECKED + AUDIBLE. CUFF PRESSURE CHECKED VACUUM WORKER. SUCTIONED AIRWAY WITH SMALL AMT OF PALE SEMI THICK SECRETIONS. PATIENT NON VERBAL, NON RESPONSIVE. AMBU BAG AT [facility] Addendum: 04/15/18 at 0750 by ZOE FAITH RT Amended: Links added.
[2018-04-15] MEDS ORDERED: POTASSIUM PHOSPHATE MM 15 MMOL in IV D5W 250 ML IV SCH (08:00)
[2018-04-15] MEDS: Magnesium 1GM/D5W 100ML PREMIX 100 ML IV SCH ×2 (08:40→10:41)
[2018-04-15] MEDS: PANTOPRAZOLE 40 MG VIAL IV SCH (08:40)
[2018-04-15] MEDS: CHLORHEXIDINE GLUCONATE 15 ML UDC MM SCH ×2 (08:40→21:01)
[2018-04-15] MEDS: METOPROLOL TARTRATE 25 MG TABLET GT SCH ×2 (08:40→21:01)
[2018-04-15] MEDS: DORZOLAMIDE OPTH 2% 10 ML BOTTLE EACHEYE SCH ×3 (08:42→17:55)
[2018-04-15] MEDS: MICONAZOLE NITRATE 2% CREAM 1 EA TUBE TP SCH ×2 (08:43→17:55)
[2018-04-15] MEDS: Z GUARD REMEDY 4 OZ OINT TP SCH ×2 (08:43→21:02)
[2018-04-15] MEDS: prednisoLONE ACET 1% OPHT DROP 5 ML BOTTLE EACHEYE SCH ×2 (08:43→17:55)
[2018-04-15] MEDS: HYDROGEN PEROXIDE 480 ML BOTTLE TP SCH ×2 (08:44→21:00)
[2018-04-15] MEDS: POTASSIUM CL. PREMIX PERIPHER. 50 ML IV SCH ×4 (08:49→12:01)
[2018-04-15] MEDS: Potassium Phosphate meq 11 MEQ in IV D5W 100 ML IV SCH ×4 (09:10→17:48)
--- NOTE | 2018-04-15 11:42 | NUR ---
ELEVATED WORK PLATFORM OPERATOR NOTE DR. HANSEN IN UNIT UPDATED REGARDING PT'S CONDITION. ELECTROLYTES BEING REPLACED ORDERED. PT BEING MONITORED FOR POSSIBLE ARRHYTHMIAS. PRBC ORDERED PER BLOOD BANK REQUESTING UNIT FROM [facility] WILL F/U. DR. SANTANA UPDATED REGARDING PT'S CONDITION HE RECOMMENDED TO ATTEMPT WEANING TOMORROW IN AM. WILL ENDORSE TO TOOL DESIGN ENGINEER RN.
[2018-04-15] MEDS: Potassium Chloride 20 MEQ in IV D5/0.45 NACL 1,000 ML IV PRN (11:43)
[2018-04-15] MEDS: D5W IV SCH ×2 (15:21→20:10)
[2018-04-15] MEDS: TAZOBACTAM IV SCH ×2 (15:21→20:10)
[2018-04-15] MEDS: PIPERACILLIN IV SCH ×2 (15:21→20:10)
--- NOTE | 2018-04-15 16:00 | NUR ---
SPOKE TO PATIENT SON THRU PHONE -BLOOD TRANSFUSION CONSENT OBTAINED. INFORMED OF PATIENT CONDITION. MADE AWARE THAT PATIENT IS GETTING A MIDLINE FOR IV ACCESS.
--- NOTE | 2018-04-15 18:44 | NUR ---
HEAD OF BUSINESS DEVELOPMENT NOTE PT REMAINS STABLE LAST OF ELECTROLYTES ARE BEING REPLACED. PRBC UNIT STILL PENDING FROM [facility] PER BLOOD BANK STAFF. SOME GASTRIC OUTPUT OBSERVED IN CANISTER. MIDLINE INSERTED THIS AFTERNOON WITHOUT ANY COMPLICATIONS. PT REMAINS NPO WITH GASTRIC TUBE TO LOW INTERMITTED SUCTION. PT'S CARE WILL BE ENDORSED TO OB TECH RN FOR CONTINUITY OF CARE. BED IN LOW AND LOCKED POSITION. CALL LIGHT WITHIN REACH.
--- NOTE | 2018-04-15 19:30 | NUR ---
RN NOTES PT ON BED RESPONSIVE TO TACTILE STIMULI, WITH TRACH SHILEY 6 CONNECTED TO VENT SETTING AC 12 TV 500 FIO2 35% PEEP 5 , NO ACUTE RESPIRATORY DISTRESS BILATERAL BREATH SOUND DIMINISHED. SATURATION 100% SUCTIONED BY RT WITH SMALL THICK YELLOWISH SECRETION . TELE MONITOR REVEALS SR HR 71. SURGICAL SITE IN ABDOMEN INTACT WITH MOD. AMT OF SEROSANGUINEOUS BLOOD FROM DRESSING. GT ON LIS WITH ABOUT 40 CC OUTPUT. IV SITE ON LH G 20 RUNNING WITH D5 1/2 NS + KCL 20 MEQ @ 100 ML/HR , AND ANSHU MIDLINE IS INTACT WITH GOOD BLOOD RETURN. F/C DRAINED WITH YELLOW COLOR URINE. FAMILY AT BEDSIDE MADE AWARE ABOUT PENDING UNIT OF PRBC. WAITING FOR [facility] TO SEND.
[2018-04-15] MEDS: HYDROGEN PEROXIDE 480 ML BOTTLE TP PRN ×2 (21:02→21:54)
[2018-04-15] MEDS: LATANOPROST EYE DROP 0.005% 2.5 ML BOTTLE EACHEYE SCH (21:02)
[2018-04-16] VITALS (55 sets, daily range): BP systolic 108–136; BP diastolic 59–77
--- NOTE | 2018-04-16 | NUR ---
RN NOTES S/E BY DR. WHITE AT BEDSIDE
[2018-04-16] MEDS: INSULIN REGULAR, HUMAN 100 UNIT/ML 3 ML VIAL SQ PRN ×5 (00:01→23:14)
[2018-04-16] MEDS: Potassium Chloride 20 MEQ in IV D5/0.45 NACL 1,000 ML IV PRN ×3 (00:09→22:30)
--- NOTE | 2018-04-16 01:22 | NUR ---
RN NOTES BLOOD TRANSFUSION STARTED SECONDARY CHECKED DONE WITNESSED BY HIRAL PACKAGE DELIVERY DRIVER.
--- NOTE | 2018-04-16 01:25 | NUR ---
RN NOTES BT STARTED. VSS., AFEBRILE.
--- NOTE | 2018-04-16 02:09 | NUR ---
RN NOTES NO S/S OF BLOOD TRANSFUSION REACTION NOTED. CONTINUE TO TRANSFUSE BLOOD.
--- NOTE | 2018-04-16 04:09 | NUR ---
RN NOTES 1 UNIT PRBC FINISHED. VSS TEMP 98.6 TOLERATED WELL WITHOUT ADVERSE SIDE EFFECT.
[2018-04-16 04:23] LABS: BASOPHILS % (AUTO) 0.3 % (0.0-2.0); EOSINOPHILS % (AUTO) 2.1 % (0.0-6.0); LYMPHOCYTES # (AUTO) 1.3 /CMM (0.8-4.8); MEAN CORPUSCULAR HEMOGLOBIN 28 PG (26.0-33.0); MEAN CORPUSCULAR HGB CONC 31 g/dl (31.0-36.0); MEAN CORPUSCULAR VOLUME 90 fL (80-96); MONOCYTES # (AUTO) 0.4 /CMM (0.1-1.30); MONOCYTES % (AUTO) 3.1 % (2.0-12.0); NEUTROPHILS # (AUTO) 9.8 /CMM (1.8-8.9); NEUTROPHILS % (AUTO) 83.5 % (43.0-81.0); PLATELET COUNT (AUTO) 207 /CMM (150-450); RDW COEFFICIENT OF VARIATION 17.9 (11.5-15.0); RED BLOOD CELL COUNT(AUTO) 2.43 MIL/uL (4.5-6.0); WHITE BLOOD COUNT (AUTO) 11.8 K/uL (4.3-11.0)
[2018-04-16 04:37] LABS: HEMATOCRIT 22 % (39-51); HEMOGLOBIN 6.8 g/dL (13.5-17.5)
[2018-04-16 04:43] LABS: CALCIUM, SERUM 7.4 mg/dL (8.5-10.1); CARBON DIOXIDE 28 mmol/L (21-32); CHLORIDE 108 mmol/L (98-107); GLUCOSE 185 mg/dL (74-106); MAGNESIUM 2.3 mg/dL (1.8-2.4); PHOSPHORUS 4.6 mg/dL (2.5-4.9); POTASSIUM 3.7 mmol/L (3.5-5.1); SODIUM SERUM 145 mmol/L (136-145); UREA NITROGEN, BLOOD 20 mg/dL (7-18)
[2018-04-16 04:49] LABS: BAND % (MANUAL) 3 % (0.0-5.0); LYMPHOCYTES % (MANUAL) 13 % (16-48); MONOCYTES % (MANUAL) 3 % (0-11.0); NEUTROPHILS % (MANUAL) 81 (42-76)
[2018-04-16] MEDS: PIPERACILLIN /TAZOBACTAM 3.375 G in IV D5W 50 ML IV SCH ×3 (04:51→21:14)
[2018-04-16] MEDS ORDERED: TAZOBACTAM IV SCH (05:00)
[2018-04-16] MEDS ORDERED: PIPERACILLIN IV SCH (05:00)
[2018-04-16] MEDS ORDERED: D5W IV SCH (05:00)
[2018-04-16] MEDS: BLOOD SUGAR DIAGNOSTIC 1 EACH STRIP IN SCH ×4 (05:45→23:12)
--- NOTE | 2018-04-16 06:40 | NUR ---
RN NOTES NO SIGNIFICANT CHANGES THROUGHOUT THE SHIFT. AFEBRILE. VSS, INCONTINENT CARE RENDERED PHOTO TAKEN FOR SKIN ISSUE, NO ACTIVE BLEEDING, NO ASE FROM ANY MEDICINE , NO BT REACTION. LATEST HGB LEVEL 7.0 WILL F/U MD. KEPT PT CLEAN AND DRY. ALL IV SITE INTACT AND PATENT. GT CONTINUE TO CONNECT FOR LIS WITH SMALL AMT OUTPUT. PATIENT IS CLEAN AND DRY. WILL ENDORSED CONTINUITY OF CARE TO AM NURSE.
--- NOTE | 2018-04-16 07:05 | NUR ---
RN INITIAL NOTES RECEIVED PT ON BED, OPEN EYES ON VERBAL AND TACTILE STIMULI. TRACH IN PLACE, TOLERATING VENT WELL. NO RESPIRATORY DISTRESS NOTED. NO SOB NOTED. NO SIGNS OF PAIN NOTED. IV LINES IN PLAE. IVF INFUSING. DRESSING ON ABDOMEN CLEAN AND DRY. NO SIGNS OF BLEEDING NOTED. FC IN PLACE. NO HEMATURIA NOTED. PT REPOSITIONED. BLE ELEVATED. WILL CONTINUE TO MONITOR.
--- NOTE | 2018-04-16 07:35 | NUR ---
RT PATIENT REC'D TRACHED ON [facility] VENT IN CRITICAL CONDITION. VENT SETTINGS SET BY . VENT ALARMS CHECKED + AUDIBLE. CUFF PRESSURE CHECKED COB SAWYER. SUCTIONED AIRWAY WITH SMALL AMT OF PALE SEMI THICK SECRETIONS. PATIENT NON VERBAL, NON RESPONSIVE. AMBU BAG AT [facility] Addendum: 04/16/18 at 1354 by ZOE FAITH RT Amended: Links added.
[2018-04-16] MEDS: prednisoLONE ACET 1% OPHT DROP 5 ML BOTTLE EACHEYE SCH ×2 (08:26→17:14)
[2018-04-16] MEDS: DORZOLAMIDE OPTH 2% 10 ML BOTTLE EACHEYE SCH ×3 (08:26→17:15)
[2018-04-16] MEDS: Z GUARD REMEDY 4 OZ OINT TP SCH ×2 (08:27→21:16)
[2018-04-16] MEDS: MICONAZOLE NITRATE 2% CREAM 1 EA TUBE TP SCH ×2 (08:27→17:15)
[2018-04-16] MEDS: HYDROGEN PEROXIDE 480 ML BOTTLE TP SCH ×2 (08:27→21:14)
[2018-04-16] MEDS: CHLORHEXIDINE GLUCONATE 15 ML UDC MM SCH ×2 (08:31→21:14)
[2018-04-16] MEDS: PANTOPRAZOLE 40 MG VIAL IV SCH (08:50)
[2018-04-16] MEDS: METOPROLOL TARTRATE 25 MG TABLET GT SCH ×2 (09:00→21:00)
--- NOTE | 2018-04-16 09:00 | NUR ---
RN NOTES SEEN AND EXAMINED BY DR AGUDELO. PT VENT DEPENDENT, TRACH IN PLACE. AIRWAY PATENT. NO RESPIRATORY DISTRESS NOTED. NO SOB NOTED. NO SIGNS OF PAIN NOTED. MD AWARE OF LAB VALUES AND LATEST CXR RESULT. WILL CONTINUE TO MONITOR.
--- NOTE | 2018-04-16 14:30 | NUR ---
RN NOTES SEEN AND EXAMINED BY DR HANSEN. AWARE OF LAB VALUES: WBC 11.8, HGB 7.0, HCT 22, PLATELET 207. GIVEN 1 UNIT OF PRBC. NO SIGNS OF ACTIVE BLEEDING NOTED. GT CONNECTED TO LOW INTERMITTENT SUCTION, YELLOW DRAINAGE NOTED AROUND 30ML. HYPOACTIVE BOWEL SOUNDS NOTED. NO BM YET. PER MD, PT MIGHT NEED ANOTHER 1 UNIT OF PRBC, AWAITING FOR ORDER. WILL CONTINUE TO MONITOR.
[2018-04-16] MEDS ORDERED: FUROSEMIDE 20 MG/2 ML VIAL IV ONE (15:00)
--- NOTE | 2018-04-16 18:50 | NUR ---
RN CLOSING NOTES NO SIGNIFICANT CHANGE NOTED. KEPT COMFORTABLE. NO RESPIRATORY DISTRESS NOTED. NO SIGNS OF PAIN NOTED. KEPT COMFORTABLE. KEPT CLEAN AND DRY. REPOSITIONED Q2. BLE ELEVATED. WILL ENDORSE FOR CONTINUITY OF CARE.
--- NOTE | 2018-04-16 20:16 | NUR ---
PT RECEIVED TRACHED SHLY 6 ON VENT. PT TOLERATING VENT SETTINGS. SX'D FOR MOD AMT OF THICK YELLOW SECRETIONS. VENT ALARMS SET AND AUDIBLE. TRACH SECURED. AMBU BAG AT BEDSIDE. VENT PLUGGED INTO RED OUTLET. WILL CONTINUE TO MONITOR. Addendum: 04/16/18 at 2020 by DAYSI WOOD RT Amended: Links added.
[2018-04-16] MEDS: LATANOPROST EYE DROP 0.005% 2.5 ML BOTTLE EACHEYE SCH (21:16)
[2018-04-17] VITALS (44 sets, daily range): BP systolic 120–148; BP diastolic 68–88
[2018-04-17 04:46] LABS: BASOPHILS % (AUTO) 0.2 % (0.0-2.0); EOSINOPHILS % (AUTO) 1.5 % (0.0-6.0); HEMATOCRIT 26 % (39-51); HEMOGLOBIN 8.4 g/dL (13.5-17.5); LYMPHOCYTES # (AUTO) 1.3 /CMM (0.8-4.8); LYMPHOCYTES % (AUTO) 9.8 % (20.0-44.0); MEAN CORPUSCULAR HEMOGLOBIN 29 PG (26.0-33.0); MEAN CORPUSCULAR HGB CONC 33 g/dl (31.0-36.0); MEAN CORPUSCULAR VOLUME 89 fL (80-96); MONOCYTES # (AUTO) 0.4 /CMM (0.1-1.30); MONOCYTES % (AUTO) 3.3 % (2.0-12.0); NEUTROPHILS # (AUTO) 10.9 /CMM (1.8-8.9); NEUTROPHILS % (AUTO) 85.2 % (43.0-81.0); PLATELET COUNT (AUTO) 214 /CMM (150-450); RDW COEFFICIENT OF VARIATION 17.3 (11.5-15.0); RED BLOOD CELL COUNT(AUTO) 2.87 MIL/uL (4.5-6.0); WHITE BLOOD COUNT (AUTO) 12.8 K/uL (4.3-11.0)
[2018-04-17] MEDS: PIPERACILLIN /TAZOBACTAM 3.375 G in IV D5W 50 ML IV SCH ×3 (05:04→20:59)
[2018-04-17] MEDS: BLOOD SUGAR DIAGNOSTIC 1 EACH STRIP IN SCH ×3 (05:10→17:43)
[2018-04-17] MEDS: INSULIN REGULAR, HUMAN 100 UNIT/ML 3 ML VIAL SQ PRN ×3 (05:10→18:14)
[2018-04-17 05:13] LABS: CALCIUM, SERUM 7.2 mg/dL (8.5-10.1); CARBON DIOXIDE 29 mmol/L (21-32); CHLORIDE 107 mmol/L (98-107); CREATININE 2.1 mg/dL (0.6-1.3); GLUCOSE 189 mg/dL (74-106); MAGNESIUM 2.1 mg/dL (1.8-2.4); PHOSPHORUS 3.4 mg/dL (2.5-4.9); POTASSIUM 3.3 mmol/L (3.5-5.1); SODIUM SERUM 143 mmol/L (136-145); UREA NITROGEN, BLOOD 24 mg/dL (7-18)
--- NOTE | 2018-04-17 06:17 | NUR ---
UNABLE TO WEIGH PT BECAUSE BED IS SCALE IS NOT WORKING. WILL ENDORSE TO AM SHIFT TO NOTIFY ENGINEERING.
[2018-04-17] MEDS: MORPHINE SULFATE INJ 2 MG/ML DISP.SYRIN IV PRN (06:36)
--- NOTE | 2018-04-17 07:43 | NUR ---
RECEIVED PT TRACH WITH SHILEY #8, (CUFFED) ON MECHANICAL VENTILATOR ON SETTINGS NOTED PER MD ORDER. PT AWAKE AND RESPONSIVE WHEN SX. PT BREATH SOUNDS: BILATERAL COARSE. SX PALE YELLOW THICK SECRETIONS. AIRWAY SECURE AND PATENT. NO SOB/ RESP DISTRESS NOTED AT THIS TIME. AMBU BAG AT BEDSIDE. VENT ALARMS SET AND AUDIBLE. VENT CONNECTED TO RED OUTLET. WILL CONTINUE TO MONITOR PT. Addendum: 04/17/18 at 0747 by ADRIANNA DIETRICH RT Amended: Links added. Addendum: 04/17/18 at 1439 by ADRIANNA DIETRICH RT PT TRACH WITH SHILEY #6 (CUFFED)
--- NOTE | 2018-04-17 07:45 | NUR ---
MEDICAL CENTER REPRESENTATIVE NOTE: RECEIVED PATIENT IN BED, ABLE TO OPEN HIS EYES, VENT-TRACH DEPENDENT SATURATING 100%. NOT ON ANY FORM OF DISTRESS. HOB ELEVATED. GT ON LOW INTERMITTENT WALL SUCTION. VÁSQUEZ CATHETER IN PLACED DRAINING A SMALL AMOUNT OF YELLOW URINE. BED ALARMED AND LOCKED AT ALL TIMES. CALL LIGHT WITHIN REACH.
[2018-04-17] MEDS: PANTOPRAZOLE 40 MG VIAL IV SCH (09:27)
[2018-04-17] MEDS: CHLORHEXIDINE GLUCONATE 15 ML UDC MM SCH ×2 (09:28→21:06)
[2018-04-17] MEDS: MICONAZOLE NITRATE 2% CREAM 1 EA TUBE TP SCH ×2 (09:28→17:43)
[2018-04-17] MEDS: METOPROLOL TARTRATE 25 MG TABLET GT SCH ×2 (09:28→20:59)
[2018-04-17] MEDS: HYDROGEN PEROXIDE 480 ML BOTTLE TP SCH ×2 (09:29→21:33)
[2018-04-17] MEDS: DORZOLAMIDE OPTH 2% 10 ML BOTTLE EACHEYE SCH ×3 (09:30→17:43)
[2018-04-17] MEDS: prednisoLONE ACET 1% OPHT DROP 5 ML BOTTLE EACHEYE SCH ×2 (09:30→17:43)
[2018-04-17] MEDS: Z GUARD REMEDY 4 OZ OINT TP SCH ×2 (09:30→21:07)
[2018-04-17] MEDS: Potassium Chloride 20 MEQ in IV D5/0.45 NACL 1,000 ML IV PRN (10:20)
--- NOTE | 2018-04-17 13:20 | NUR ---
WARDROBE CUSTODIAN NOTE: DR. AGUDELO WAS INFORMED ABOUT THE PATIENT'S SON'S REQUEST TO START WEANING THE PATIENT OFF THE VENTILATOR. MD WITH ORDER TO CHANGE THE SETTING TO CPAP MODE 15/5. AND TO DO ABG AFTER 1 HOUR. SON MADE AWARE AND PRESENT AT THE BEDSIDE. RT WAS INFORMED.
[2018-04-17] MEDS ORDERED: POTASSIUM CL. PREMIX PERIPHER. 50 ML IV SCH (14:30)
[2018-04-17 14:32] LABS: ABG BASE EXCESS -0.2 mmol/L; ABG OXYGEN SATURATION 97.3 % (92.0-98.5); ABG PCO2 33.1 mmHg (35.0-45.0); ABG PH 7.465 (7.350-7.450); ABG PO2 106.7 mmHg (75.0-100.0); AaDO2 104.4 mmHg; COHb 0.2 % (0.5-1.5); MetHb 0.5 % (0.0-1.5); O2Hb 96.6 % (94.0-97.0); SITE, ABG Left Radial
--- NOTE | 2018-04-17 14:40 | NUR ---
@ 1318 placed pt on cpap ps: 15, peep: 4, fio2: 35%. pt will well. ABG DONE AND REPORTED TO DR AGUDELO. PER DR AGUDELO TO LEAVE PT ON CPAP MODE AT THIS TIME. PLAN FOR COOL AEROSOL TRIAL TOMORROW AM. WILL CONTINUE TO MONITOR PT.
[2018-04-17 18:40] LABS: APPEARANCE,URINE SL CLOUDY (CLEAR); BILIRUBIN,URINE NEGATIVE (NEGATIVE); BLOOD, URINE 3+ Ery/uL (NEGATIVE); COLOR,URINE YELLOW (YELLOW); KETONES,URINE NEGATIVE (NEGATIVE); LEUKOCYTE ESTERASE ,URINE TRACE (NEGATIVE); NITRITE, URINE NEGATIVE (NEGATIVE); PROTEIN,URINE 2+ mg/dl (NEGATIVE); UGLUCOSE NEGATIVE (NEGATIVE); UROBILINOGEN,URINE 0.2 EU/dL (0.2)
[2018-04-17 18:50] LABS: YEAST,URINE Many /HPF (None Seen)
[2018-04-17 18:51] LABS: BACTERIA,URINE Many /HPF (None Seen); SQUAMOUS EPITHELIAL CELL,UR Few /HPF (None Seen)
[2018-04-17 18:55] LABS: CREATININE, URINE 153.5 MG/DL (30.0-125.0)
[2018-04-17 19:22] LABS: EOSINOPHIL,URINE None Seen
--- NOTE | 2018-04-17 19:30 | NUR ---
ICU/RN RECEIVED PT. ON VENT PER TRACH ON CPAP W/RR OF 25-34/MIN.SATURATING 97-100%.MONITOR SHOWS NSR-SB W/ RARE PAC'S AND PVC'S.POOR URINE OUTPUT.
--- NOTE | 2018-04-17 19:41 | NUR ---
COMPO CASTER NOTE: PATIENT ABLE TO OPEN HIS EYES SPONTANEOUSLY, RESPIRATION IS EVEN AND UNLABORED. TOLERATING THE CPAP MODE SETTING. SATURATING 100%. VÁSQUEZ CATHETER WAS EMPTIED. PATIENT REMAINED ON LOW INTERMITTENT WALL SUCTION ON THE GT SITE AND NO DRAINAGE WAS NOTED. REPORT GIVEN TO PM SHIFT NURSE FOR CONTINUITY OF CARE.
--- NOTE | 2018-04-17 20:05 | NUR ---
PT RECEIVED TRACHED SHLY 6 ON VENT. PT TOLERATING VENT SETTINGS. SX'D FOR MOD AMT OF THICK YELLOW SECRETIONS. VENT ALARMS SET AND AUDIBLE. TRACH SECURED. AMBU BAG AT BEDSIDE. VENT PLUGGED INTO RED OUTLET. WILL CONTINUE TO MONITOR. Addendum: 04/17/18 at 2006 by JONN GOODEN RT Amended: Links added.
--- NOTE | 2018-04-17 20:15 | NUR ---
ICU/RN ABDOMINAL DRESSING DRY AND INTACT.G-TUBE TO LOW INTERMITTENT SUCTION DRAINING YELLOW DRAINAGE JUST IN THE TUBING.
--- NOTE | 2018-04-17 21:00 | NUR ---
ICU/RN TRACH CARE DONE.SON AT BEDSIDE VISITING,UPDATED WITH PT'S CONDITION.
[2018-04-17] MEDS: HYDROGEN PEROXIDE 480 ML BOTTLE TP PRN ×2 (21:05→21:33)
[2018-04-17] MEDS: LATANOPROST EYE DROP 0.005% 2.5 ML BOTTLE EACHEYE SCH (21:08)
[2018-04-18] VITALS (26 sets, daily range): BP systolic 127–163; BP diastolic 70–93
[2018-04-18] MEDS: INSULIN REGULAR, HUMAN 100 UNIT/ML 3 ML VIAL SQ PRN ×5 (00:17→23:10)
[2018-04-18] MEDS: BLOOD SUGAR DIAGNOSTIC 1 EACH STRIP IN SCH ×5 (00:21→23:05)
[2018-04-18] MEDS: Potassium Chloride 20 MEQ in IV D5/0.45 NACL 1,000 ML IV PRN ×2 (00:23→12:40)
[2018-04-18 04:40] LABS: HEMATOCRIT 26 % (39-51); HEMOGLOBIN 8.2 g/dL (13.5-17.5); LYMPHOCYTES # (AUTO) 0.5 /CMM (0.8-4.8); LYMPHOCYTES % (AUTO) 3.5 % (20.0-44.0); MEAN CORPUSCULAR HEMOGLOBIN 28 PG (26.0-33.0); MEAN CORPUSCULAR HGB CONC 31 g/dl (31.0-36.0); MEAN CORPUSCULAR VOLUME 90 fL (80-96); MONOCYTES # (AUTO) 0.1 /CMM (0.1-1.30); MONOCYTES % (AUTO) 0.9 % (2.0-12.0); NEUTROPHILS # (AUTO) 13.4 /CMM (1.8-8.9); NEUTROPHILS % (AUTO) 95.6 % (43.0-81.0); PLATELET COUNT (AUTO) 220 /CMM (150-450); RDW COEFFICIENT OF VARIATION 17.1 (11.5-15.0); RED BLOOD CELL COUNT(AUTO) 2.92 MIL/uL (4.5-6.0)
[2018-04-18 05:02] LABS: CALCIUM, SERUM 7.3 mg/dL (8.5-10.1); CARBON DIOXIDE 27 mmol/L (21-32); CHLORIDE 107 mmol/L (98-107); GLUCOSE 210 mg/dL (74-106); PHOSPHORUS 3.7 mg/dL (2.5-4.9); POTASSIUM 3.7 mmol/L (3.5-5.1); SODIUM SERUM 143 mmol/L (136-145); UREA NITROGEN, BLOOD 23 mg/dL (7-18)
[2018-04-18] MEDS: PIPERACILLIN /TAZOBACTAM 3.375 G in IV D5W 50 ML IV SCH ×4 (05:22→23:06)
--- NOTE | 2018-04-18 06:23 | NUR ---
ICU/RN CONDITION UNCHANGED,OPENS DOES NOT TRACK,DOES NOT FOLLOW COMMANDS.MOVES RT HAND VERY SLIGHTLY AND SPONTANEOUSLY
--- NOTE | 2018-04-18 07:00 | NUR ---
RN NOTES RECEIVED PT ON BED, OPENS EYES AT TIMES , ON CPAP MODE SETTING , O2 SAT 100%, TOLERATING WELL, ON TELE SR, HR IN 60'S ,GT TO LIS NO DRAINAGE NOTED AT THIS TIME, R UPPER ARM MIDLINE SITE AND R FA AND L HAND IV SITES G 20 , CLEAN , DRY AND INTACT, WITH D5 1/2NS WITH 20 KCL RUNNING VIA R UPPER ARM MIDLINE , VÁSUQEZ DRANING TO GRAVITY , SR UP x3, CALL LIGHT WITHIN EASY REACH, BED LOCKED AND IN LOWEST POSITION, CONTINUE TO MONITOR
--- NOTE | 2018-04-18 07:01 | NUR ---
ICU/RN GT DRAINED 20ML PALE YELLOW DRAINAGE.REPORT AND CARE OF PT. GIVEN TO GLENROY NOVOA
--- NOTE | 2018-04-18 07:30 | NUR ---
RT PER DR WAKEFIELD ORDER PATIENT PLACED ON C/A 35%. TRACH SUCTIONED WITH SMALL AMOUNT PALE SECRETIONS. PATIENT NON VERBAL, NON RESPONSIVE. AMBU BAG AT HOB Addendum: 04/18/18 at 1041 by ZOE FAITH RT Amended: Links added.
[2018-04-18] MEDS: DORZOLAMIDE OPTH 2% 10 ML BOTTLE EACHEYE SCH ×3 (08:15→16:50)
[2018-04-18] MEDS: prednisoLONE ACET 1% OPHT DROP 5 ML BOTTLE EACHEYE SCH ×2 (08:15→16:49)
[2018-04-18] MEDS: PANTOPRAZOLE 40 MG VIAL IV SCH (08:15)
[2018-04-18] MEDS: METOPROLOL TARTRATE 25 MG TABLET GT SCH ×2 (08:16→20:50)
[2018-04-18] MEDS: CHLORHEXIDINE GLUCONATE 15 ML UDC MM SCH ×2 (08:16→20:08)
[2018-04-18] MEDS: MICONAZOLE NITRATE 2% CREAM 1 EA TUBE TP SCH ×2 (08:17→16:49)
[2018-04-18] MEDS: HYDROGEN PEROXIDE 480 ML BOTTLE TP SCH ×2 (08:17→20:09)
[2018-04-18] MEDS: HYDROGEN PEROXIDE 480 ML BOTTLE TP PRN ×2 (08:17→20:08)
[2018-04-18] MEDS: Z GUARD REMEDY 4 OZ OINT TP SCH ×2 (08:19→20:50)
[2018-04-18 08:54] LABS: ABG BASE EXCESS -0.9 mmol/L; ABG OXYGEN SATURATION 97.6 % (92.0-98.5); ABG PCO2 36.3 mmHg (35.0-45.0); ABG PH 7.424 (7.350-7.450); ABG PO2 127.8 mmHg (75.0-100.0); AaDO2 79.6 mmHg; COHb 0.1 % (0.5-1.5); MetHb 0.4 % (0.0-1.5); O2Hb 97.1 % (94.0-97.0); SITE, ABG Right Radial; VENT MODE, BG CA
[2018-04-18] MEDS ORDERED: TPN/PPN PER PHARMACY XX PRN (09:30)
[2018-04-18 11:56] LABS: INR 1.1 (0.87-1.13)
--- NOTE | 2018-04-18 13:44 | NUR ---
RN NOTES ORDER RECEIVED FROM DR SKIP WHITE TO STOP TPN AND START GT FEEDING.
--- NOTE | 2018-04-18 13:44 | NUR ---
RN NOTES REPORT GIVEN TO JYOTI NOVOA . PT TRANSFERRED TO ROOM 111-1 SHOBHA STATUS IN STABLE CONDITION .
--- NOTE | 2018-04-18 13:45 | NUR ---
RN NOTE RECEIVED PATIENT FROM ICU, PATIENT IS ALERT TO TACTILE STIMULI AND IS ABLE TO OPEN EYES. BREATHING EVEN AND UNLABORED WITH NO DISTRESS NOTED. ON COOL AEROSOL WITH APPROPRIATE SETTINGS AND SATURATING WELL. ON SEED CORN MANAGER PRODUCTION SINUS RHYTHM HR OF 62. SKIN WARM TO TOUCH AND INTACT. IV SITES INTACT AND PATENT WITH ONGOING FLUIDS ORDERED. BED LOW AND LOCKED POSITION. WILL CONTINUE TO MONITOR.
--- NOTE | 2018-04-18 16:00 | NUR ---
RN NOTE STARTED GT TUBE FEEDING PER MD DR WHITE.
[2018-04-18] MEDS ORDERED: FEE PK DOSING 1 MIN EA MC ONE (18:35)
[2018-04-18] MEDS: GLUCERNA 1.2 1,000 ML BOTTLE NG PRN (19:04)
--- NOTE | 2018-04-18 19:19 | NUR ---
RN NOTE PATIENT REMAINED STABLE THROUGHOUT SHIFT. NO ACUTE CHANGES OR DISTRESS NOTED. WILL ENDORSE TO NEXT SHIFT TO CONTINUE TO MONITOR CONTINUITY OF CARE.
--- NOTE | 2018-04-18 20:00 | NUR ---
SHOBHA RN INITIAL NOTE PT RECEIVED IN BED WITH OPEN EYES AND SON AT BEDSIDE. TRACH IN PLACE ON COOL AEROSOL 28% FIO2 AND TOLERATING WELL. HOB ELEVATED AND ON ASPIRATION PRECAUTIONS. GTUBE FEEDING WITH 50 ML RESIDUAL NOTED. IV ANSHU MIDLINE CLEAN AND DRY WITH FLUIDS INFUSING. VÁSQUEZ CATHETER IN PLACE AND DRAINING BY GRAVITY. WILL CONTINUE TO MONITOR.
[2018-04-18] MEDS: VANCOMYCIN 500 MG in IV D5W 100 ML IV SCH (20:08)
[2018-04-18] MEDS: LATANOPROST EYE DROP 0.005% 2.5 ML BOTTLE EACHEYE SCH (21:26)
[2018-04-19] VITALS: BP 149/83
--- NOTE | 2018-04-19 | NUR ---
SHOBHA RN NOTE NOTED WITH 120ML RESIDUALS FROM GTUBE. WILL HOLD GT FEEDING FOR NOW. HOB REMAINS ELEVATED. WILL MONITOR.
[2018-04-19 04:00] VITALS: BP 149/82
--- NOTE | 2018-04-19 04:00 | NUR ---
SHOBHA RN NOTE CHECKED GT FOR 170ML RESIDUALS NOTED. GT FEEDING HELD AND GT CLAMPED. ON ASPIRATION PRECAUTIONS. WILL MONITOR.
--- NOTE | 2018-04-19 04:15 | NUR ---
PT SPUTUM SAMPLE COLLECTED, APPROX 5 CC WHITE/DAILEY THIN AND PLACED IN COLLECTION FRIDGE FOR LAB. BRIGHT LEWIS AWARE
[2018-04-19] MEDS ORDERED: IV PREMIX D5 1/2NS + KCL 1,000 ML IV ONE (05:12)
[2018-04-19] MEDS: PIPERACILLIN /TAZOBACTAM 3.375 G in IV D5W 50 ML IV SCH ×4 (05:21→23:38)
[2018-04-19] MEDS: BLOOD SUGAR DIAGNOSTIC 1 EACH STRIP IN SCH ×4 (05:21→23:37)
[2018-04-19] MEDS: Potassium Chloride 20 MEQ in IV D5/0.45 NACL 1,000 ML IV PRN ×2 (05:22→20:10)
[2018-04-19] MEDS: INSULIN REGULAR, HUMAN 100 UNIT/ML 3 ML VIAL SQ PRN ×3 (05:52→18:00)
[2018-04-19 07:17] LABS: EOSINOPHILS % (AUTO) 0.3 % (0.0-6.0); HEMATOCRIT 30 % (39-51); HEMOGLOBIN 9.7 g/dL (13.5-17.5); LYMPHOCYTES # (AUTO) 0.8 /CMM (0.8-4.8); LYMPHOCYTES % (AUTO) 5.8 % (20.0-44.0); MEAN CORPUSCULAR HEMOGLOBIN 29 PG (26.0-33.0); MEAN CORPUSCULAR HGB CONC 32 g/dl (31.0-36.0); MEAN CORPUSCULAR VOLUME 89 fL (80-96); MONOCYTES # (AUTO) 0.7 /CMM (0.1-1.30); MONOCYTES % (AUTO) 4.8 % (2.0-12.0); NEUTROPHILS % (AUTO) 89.1 % (43.0-81.0); PLATELET COUNT (AUTO) 231 /CMM (150-450); RDW COEFFICIENT OF VARIATION 16.8 (11.5-15.0); RED BLOOD CELL COUNT(AUTO) 3.39 MIL/uL (4.5-6.0); WHITE BLOOD COUNT (AUTO) 14.6 K/uL (4.3-11.0)
[2018-04-19 07:48] LABS: CALCIUM, SERUM 7.3 mg/dL (8.5-10.1); CARBON DIOXIDE 24 mmol/L (21-32); CHLORIDE 108 mmol/L (98-107); CREATININE 1.8 mg/dL (0.6-1.3); GLUCOSE 165 mg/dL (74-106); MAGNESIUM 2.1 mg/dL (1.8-2.4); PHOSPHORUS 2.7 mg/dL (2.5-4.9); POTASSIUM 3.1 mmol/L (3.5-5.1); SODIUM SERUM 142 mmol/L (136-145); UREA NITROGEN, BLOOD 23 mg/dL (7-18)
[2018-04-19 08:00] VITALS: BP 138/72
--- NOTE | 2018-04-19 08:00 | NUR ---
TD/RN AM SHIFT INITIAL NOTES RECEIVED PT ASLEEP IN BED, PT OBTUNDED, SPONTANEOUSLY OPEN EYES, NO ACUTE CHANGE OF CONDITION OR GRIMACING NOTED. ON COOL AEROSOL WITH 28% FIO2, SATURATING @ 99%, RESPIRATIONS EVEN & UNLABORED, LUNG SOUNDS DIMINISHED, SUCTIONED FOR AIRWAY CLEARANCE. ON TELE MONITORING, SINUS RHYTHM, HR 76. WITH ON GOING IV INFUSION OF D51/2NS WITH 20MEQ KCL @ 100CC/HR, IV SITE PATENT WITH NO S/S OF INFECTION. GT FEEDING HELD, CHECKED FOR RESIDUAL, NOTED WITH MORE THAN 120ML OF YELLOW GASTRIC CONTENT, GT FEEDING HELD WILL CHECK AGAIN AN HOUR LATER. NOTED WITH GENERALIZED PITTING EDEMA, VÁSQUEZ CATHETER INTACT WITH CLEAR YELLOW URINE OUTPUT. PT IS COMFORTABLE, SCHEDULED AM MEDS TO BE GIVEN. CL WITHIN REACHED AND SAFETY MAINTAINED. ON GOING MONITORING.
--- NOTE | 2018-04-19 09:00 | NUR ---
TD/RN ROUNDS - DR. SANTIAGO UPDATED PT'S CONDITION, INFORMED MD THAT PT HAS HAD EXCESSIVE GASTRIC RESIDUAL, FROM PM SHIFT AND THIS MORNING WHEN I ASSESSED HIM, GT FEEDING HELD, ASK IF GI CONSULT IS NEEDED, SAID HE WILL TAKE CARE OF IT. 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 NO NEW ORDERS RECEIVED AT THIS TIME.
[2018-04-19 09:25] LABS: ALBUMIN 1.5 g/dL (3.4-5.0); BILIRUBIN,DIRECT 0.4 mg/dL (0.0-0.2); BILIRUBIN,TOTAL 0.8 mg/dL (0.2-1.0); TOTAL PROTEIN, SERUM 7.5 g/dL (6.4-8.2)
[2018-04-19] MEDS: METOPROLOL TARTRATE 25 MG TABLET GT SCH (09:33)
[2018-04-19] MEDS: VANCOMYCIN 500 MG in IV D5W 100 ML IV SCH ×2 (09:33→20:58)
[2018-04-19] MEDS: CHLORHEXIDINE GLUCONATE 15 ML UDC MM SCH ×2 (09:33→20:59)
[2018-04-19] MEDS: PANTOPRAZOLE 40 MG VIAL IV SCH (09:34)
[2018-04-19] MEDS: HYDROGEN PEROXIDE 480 ML BOTTLE TP SCH ×2 (09:35→21:01)
[2018-04-19] MEDS: MICONAZOLE NITRATE 2% CREAM 1 EA TUBE TP SCH ×2 (09:35→18:06)
[2018-04-19] MEDS: Z GUARD REMEDY 4 OZ OINT TP SCH ×2 (09:36→21:02)
[2018-04-19] MEDS: prednisoLONE ACET 1% OPHT DROP 5 ML BOTTLE EACHEYE SCH ×2 (09:36→18:05)
[2018-04-19] MEDS: DORZOLAMIDE OPTH 2% 10 ML BOTTLE EACHEYE SCH ×3 (09:36→18:05)
--- NOTE | 2018-04-19 10:00 | NUR ---
TD/RN ROUNDS - DR. AGUDELO UPDATED PT'S CONDITION, PT SEEN & EXAMINED BY DR. AGUDELO, NO NEW ORDERS RECEIVED AT THIS TIME. MONITORING CONTINUED.
[2018-04-19] MEDS: POTASSIUM CL. PREMIX PERIPHER. 50 ML IV SCH ×4 (11:00→20:10)
[2018-04-19 12:00] VITALS: BP 124/76
--- NOTE | 2018-04-19 12:00 | NUR ---
TD/RN NOON ROUNDS GASTRIC RESIDUAL CHECKED, ZERO. GT FEEDING STARTED @ 60CC/HR, NO ACUTE CHANGE OF CONDITION. MONITORING CONTINUED.
[2018-04-19] MEDS ORDERED: hydrALAZINE HCL 25 MG TABLET GT PRN (15:30)
[2018-04-19 16:00] VITALS: BP 151/81
[2018-04-19 16:25] LABS: IRON, SERUM 36 ug/dl (50-175); TOTAL IRON BINDING CAPACITY 142 ug/dl (250-450)
--- NOTE | 2018-04-19 17:00 | NUR ---
TD/RN ROUNDS - BRANDO WOODARD UPDATED PT'S CONDITION. PT SEEN & EXAMINED BY BY BRANDO WOODARD WITH VERBAL ORDERS RECEIVED FOR STAT KUB, PRN REGLAN. ORDERS NOTED AND CARRIED OUT. PM CARE PROVIDED. NO CHANGE OF CONDITION. MONITORING CONTINUED.
[2018-04-19 17:02] LABS: FERRITIN 5361 ng/mL (8-388)
[2018-04-19] MEDS: FLUCONAZOLE (100 MG) 100 MG TABLET GT SCH (18:05)
--- NOTE | 2018-04-19 19:40 | NUR ---
TD/RN AM SHIFT END NOTES ALL NEEDS MET. PT ENDORSED TO PM CARE TO CONTINUE CARE. ALSO ENDORSED TO ADMINISTER LAST BAG OF POTASSIUM CHLORIDE 10MEQ IV AND COLLECT STOOL FOR OB. CL WITHIN REACHED AND SAFETY MAINTAINED.
--- NOTE | 2018-04-19 19:45 | NUR ---
SHOBHA RN INITIAL NOTE PT RECEIVED WITH SON AT BEDSIDE. PT WITH OPEN EYES. NO ACUTE DISTRESS NOTED. TRACH IN PLACE AND SATURATING WELL. HOB ELEVATED AND ON ASPIRATION PRECAUTIONS. GT CHECKED WITH 300ML RESIDUALS NOTED. GT CLAMPED AND FEEDING TURNED OFF. WILL ADMINISTER LAST DOSE OF IV POTASSIUM. ANSHU MIDLINE CLEAN AND DRY WITH FLUIDS INFUSING. WILL CONTINUE TO MONITOR.
[2018-04-19 20:00] VITALS: BP 155/76
[2018-04-19] MEDS: METOCLOPRAMIDE HCL 10 MG/2 ML VIAL IV PRN (20:11)
[2018-04-19] MEDS: LATANOPROST EYE DROP 0.005% 2.5 ML BOTTLE EACHEYE SCH (21:01)
--- NOTE | 2018-04-19 22:00 | NUR ---
SHOBHA RN NOTE RECHECKED GTUBE WITH 300 ML RESIDUALS STILL. GT CLAMPED AND REGLAN 1ML GIVEN. SON STILL AT BEDSIDE. HOB ELEVATED. WILL MONITOR.
[2018-04-20] VITALS (7 sets, daily range): BP systolic 139–166; BP diastolic 70–90
--- NOTE | 2018-04-20 | NUR ---
SHOBHA RN NOTE 250ML RESIDUALS NOTED FROM GTUBE AT THIS TIME. PT COMFORTABLE AND SON REMAINS AT BEDSIDE. ON ASPIRATION PRECAUTIONS. WILL MONITOR.
[2018-04-20] MEDS: INSULIN REGULAR, HUMAN 100 UNIT/ML 3 ML VIAL SQ PRN ×4 (00:06→17:09)
--- NOTE | 2018-04-20 02:00 | NUR ---
SHOBHA RN NOTE PT GTUBE RECHECKED WITH 150 ML RESIDUALS. WILL CONTINUE TO HOLD FEEDING AT THIS TIME. GT CLAMPED. HOB ELEVATED. WILL MONITOR.
[2018-04-20] MEDS: BLOOD SUGAR DIAGNOSTIC 1 EACH STRIP IN SCH ×3 (05:01→17:10)
[2018-04-20] MEDS: PIPERACILLIN /TAZOBACTAM 3.375 G in IV D5W 50 ML IV SCH ×3 (05:01→17:10)
[2018-04-20] MEDS: METOCLOPRAMIDE HCL 10 MG/2 ML VIAL IV PRN (06:40)
[2018-04-20] MEDS: GLUCERNA 1.2 1,000 ML BOTTLE NG PRN (06:47)
--- NOTE | 2018-04-20 07:00 | NUR ---
RN NOTE RECEIVED PT ON BED, OPEES EYES AT TIMES , TRACH DEPENDENT, ON 28% COOL AEROSOL , NO SOB NOTED , TRACH CARE DONE, ON TELE SR, HR IN 70'S , HOB ELEVATED AND ON ASPIRATION PRECAUTIONS. GLUCERNA AT 10CC/HR RUNNING VIA GT AT THIS TIME, CONTINUE TO MONITOR RESIDUAL , R UA MIDLINE SITE , CLEAN , DRY AND INTACT, WITH D51/2NS WITH 20 MEQ KCL RUNNING SR UP x3, CALL LIGHT WITHIN EASY REACH, BED LOCKED AND IN LOWEST POSITION , CONTINUE TO MONITOR.
--- NOTE | 2018-04-20 07:06 | NUR ---
SHOBHA RN CLOSING NOTE PT REMAINED STABLE DURING SHIFT. NO ACUTE DISTRESS NOTED. GTUBE RECHECKED WITH 60 ML RESIDUALS. RESTARTED GT FEEDING AND GAVE REGLAN 1ML IVP. REPOSITIONED Q2H. SUCTIONED NEEDED. HOB REMAINED ELEVATED AND ON ASPIRATION PRECAUTIONS. WILL ENDORSE TO NEXT SHIFT FOR CONTINUITY OF CARE.
[2018-04-20 07:16] LABS: CALCIUM, SERUM 7.3 mg/dL (8.5-10.1); CARBON DIOXIDE 24 mmol/L (21-32); CHLORIDE 108 mmol/L (98-107); CREATININE 1.6 mg/dL (0.6-1.3); GLUCOSE 166 mg/dL (74-106); POTASSIUM 3.6 mmol/L (3.5-5.1); SODIUM SERUM 142 mmol/L (136-145); UREA NITROGEN, BLOOD 20 mg/dL (7-18)
[2018-04-20] MEDS: VANCOMYCIN 500 MG in IV D5W 100 ML IV SCH (08:16)
[2018-04-20] MEDS: Potassium Chloride 20 MEQ in IV D5/0.45 NACL 1,000 ML IV PRN (08:18)
[2018-04-20] MEDS: FLUCONAZOLE (100 MG) 100 MG TABLET GT SCH (08:23)
[2018-04-20] MEDS: PANTOPRAZOLE 40 MG VIAL IV SCH (08:25)
[2018-04-20] MEDS: MICONAZOLE NITRATE 2% CREAM 1 EA TUBE TP SCH ×2 (08:26→16:23)
[2018-04-20] MEDS: prednisoLONE ACET 1% OPHT DROP 5 ML BOTTLE EACHEYE SCH ×2 (08:26→16:23)
[2018-04-20] MEDS: HYDROGEN PEROXIDE 480 ML BOTTLE TP PRN (08:27)
[2018-04-20] MEDS: CHLORHEXIDINE GLUCONATE 15 ML UDC MM SCH ×2 (08:27→21:20)
[2018-04-20] MEDS: DORZOLAMIDE OPTH 2% 10 ML BOTTLE EACHEYE SCH ×3 (08:27→16:23)
[2018-04-20] MEDS: Z GUARD REMEDY 4 OZ OINT TP SCH ×2 (08:28→21:23)
[2018-04-20] MEDS: HYDROGEN PEROXIDE 480 ML BOTTLE TP SCH ×2 (08:28→21:21)
[2018-04-20] MEDS ORDERED: AMLODIPINE BESYLATE 5 MG TABLET GT SCH (09:00)
[2018-04-20] MEDS ORDERED: MORPHINE SULFATE INJ 4 MG/ML DISP.SYRIN IV PRN (12:00)
--- NOTE | 2018-04-20 12:00 | NUR ---
RN NOTES PT 'S SON REQUESTING UROLOGIST CONSULT REGARDING SCROTUM SWELLING , DR. WHITE NOTIFED .
[2018-04-20] MEDS ORDERED: BUMETANIDE INJ 2 MG in IV NS 0.9% 32 ML IV ONE (14:00)
[2018-04-20] MEDS: AMLODIPINE BESYLATE 5 MG TABLET GT SCH (17:09)
--- NOTE | 2018-04-20 18:00 | NUR ---
RN NOTES PT TOLERATING TF WELL AT 30CC/HR , NO RESIDUAL NOTED, R UPPER ARM MIDLINE SITE , CLEAN ,DRY AND INTACT ,SR UP X3, CALL LIGHT WITHIN EASY REACH, SUPPORTIVE SON AT THE BEDSIDE, WILL ENDOSE TO WOOD FINISHER APPRENTICE NURSER FOR CONTINUITY OF CARE.
--- NOTE | 2018-04-20 19:30 | NUR ---
KILN LOADER INITIAL NOTE PT RECEIVED ASLEEP WITH SON AT BEDSIDE. TRACH IN PLACE AND SATURATING WELL. GTUBE FEEDING TOLERATED WITH 5OML RESIDUALS. HOB ELEVATED. ON ASPIRATION PRECAUTIONS. WILL CONTINUE TO MONITOR.
[2018-04-20] MEDS: VANCOMYCIN 0.75 GM in IV D5W 250 ML IV SCH (21:20)
[2018-04-20] MEDS: LATANOPROST EYE DROP 0.005% 2.5 ML BOTTLE EACHEYE SCH (21:22)
--- NOTE | 2018-04-20 22:30 | NUR ---
EMAIL PRODUCTION SPECIALIST NOTE RECHECKED FEEDING WITH NO RESIDUALS NOTED AND INCREASED FEEDING TO 40ML/HR. HOB ELEVATED. WILL CONTINUE TO MONITOR.
--- NOTE | 2018-04-20 23:30 | NUR ---
RN INITIAL NOTE PT RECEIVED ASLEEP.REPORT GIVEN BY DEBBIE. TRACH IN PLACE AND SATURATING WELL. G TUBE FEEDING TOLERATED WITH 1OML RESIDUALS. HOB ELEVATED. ON ASPIRATION PRECAUTIONS. ALL SAFETY PRECAUTIONS TAKEN. WILL CONTINUE TO MONITOR.
--- NOTE | 2018-04-20 23:43 | NUR ---
LITHOGRAPHER APPRENTICE NOTE REPORT GIVEN TO SPENSER NOVOA FOR CONTINUITY OF CARE.
[2018-04-21] VITALS: BP 133/69
[2018-04-21] MEDS: INSULIN REGULAR, HUMAN 100 UNIT/ML 3 ML VIAL SQ PRN ×4 (00:35→18:47)
[2018-04-21] MEDS: PIPERACILLIN /TAZOBACTAM 3.375 G in IV D5W 50 ML IV SCH ×3 (00:39→12:36)
[2018-04-21] MEDS: BLOOD SUGAR DIAGNOSTIC 1 EACH STRIP IN SCH ×5 (00:39→23:54)
[2018-04-21 04:00] VITALS: BP 132/80
[2018-04-21] MEDS: GLUCERNA 1.2 1,000 ML BOTTLE NG PRN (05:32)
--- NOTE | 2018-04-21 07:00 | NUR ---
RN CLOSING NOTE PT REMAINED STABLE DURING SHIFT. NO ACUTE DISTRESS NOTED. G TUBE 10 ML RESIDUALS, RATE CHANGED TO 50. REPOSITIONED Q2H. SUCTIONED NEEDED. HOB REMAINED ELEVATED AND ON ASPIRATION PRECAUTIONS. WILL ENDORSE TO AM SHIFT FOR CONTINUITY OF CARE.
[2018-04-21 07:24] LABS: EOSINOPHILS % (AUTO) 1.5 % (0.0-6.0); HEMATOCRIT 32 % (39-51); HEMOGLOBIN 9.9 g/dL (13.5-17.5); LYMPHOCYTES % (AUTO) 11.5 % (20.0-44.0); MEAN CORPUSCULAR HEMOGLOBIN 28 PG (26.0-33.0); MEAN CORPUSCULAR HGB CONC 31 g/dl (31.0-36.0); MEAN CORPUSCULAR VOLUME 91 fL (80-96); MONOCYTES # (AUTO) 0.6 /CMM (0.1-1.30); MONOCYTES % (AUTO) 6.4 % (2.0-12.0); NEUTROPHILS # (AUTO) 6.9 /CMM (1.8-8.9); NEUTROPHILS % (AUTO) 80.6 % (43.0-81.0); PLATELET COUNT (AUTO) 289 /CMM (150-450); RDW COEFFICIENT OF VARIATION 17.2 (11.5-15.0); RED BLOOD CELL COUNT(AUTO) 3.52 MIL/uL (4.5-6.0); WHITE BLOOD COUNT (AUTO) 8.6 K/uL (4.3-11.0)
[2018-04-21 07:30] LABS: CALCIUM, SERUM 7.9 mg/dL (8.5-10.1); CARBON DIOXIDE 26 mmol/L (21-32); CHLORIDE 109 mmol/L (98-107); CREATININE 1.6 mg/dL (0.6-1.3); GLUCOSE 171 mg/dL (74-106); MAGNESIUM 1.8 mg/dL (1.8-2.4); PHOSPHORUS 2.2 mg/dL (2.5-4.9); POTASSIUM 3.4 mmol/L (3.5-5.1); SODIUM SERUM 143 mmol/L (136-145); UREA NITROGEN, BLOOD 16 mg/dL (7-18)
[2018-04-21 08:00] VITALS: BP 151/84
--- NOTE | 2018-04-21 08:23 | NUR ---
RN NOTES RECEIVED PATIENT AWAKE IN BED WITH NO RESPIRATORY DISTRESS OR SHORTNESS OF BREATH. BREATHING EVEN AND UNLABORED. COOL MIST TOLERATING WELL. NO PHYSICAL MANIFESTATION OF PAIN OR DISCOMFORT. OBTUNDED. FC PATENT AND INTACT DRAINING CLEAR YELLOW WITH NO FOUL ODOR URINE. GT IN PLACE, NO RESIDUAL. FEEDING WELL TOLERATED. HOB ELEVATED. KEPT CLEAN AND DRY. WILL CONTINUE TO MONITOR.
[2018-04-21] MEDS: VANCOMYCIN 0.75 GM in IV D5W 250 ML IV SCH ×2 (09:01→21:28)
[2018-04-21] MEDS: PANTOPRAZOLE 40 MG VIAL IV SCH (09:26)
[2018-04-21] MEDS: AMLODIPINE BESYLATE 5 MG TABLET GT SCH ×2 (09:26→17:20)
[2018-04-21] MEDS: CHLORHEXIDINE GLUCONATE 15 ML UDC MM SCH ×2 (09:27→21:28)
[2018-04-21] MEDS: HYDROGEN PEROXIDE 480 ML BOTTLE TP SCH ×2 (09:27→21:30)
[2018-04-21] MEDS: FLUCONAZOLE (100 MG) 100 MG TABLET GT SCH (09:28)
[2018-04-21] MEDS: Z GUARD REMEDY 4 OZ OINT TP SCH ×2 (09:28→21:30)
[2018-04-21] MEDS: prednisoLONE ACET 1% OPHT DROP 5 ML BOTTLE EACHEYE SCH ×2 (09:30→17:18)
[2018-04-21] MEDS: DORZOLAMIDE OPTH 2% 10 ML BOTTLE EACHEYE SCH ×3 (09:30→17:18)
[2018-04-21] MEDS: MICONAZOLE NITRATE 2% CREAM 1 EA TUBE TP SCH ×2 (09:31→17:21)
[2018-04-21] MEDS ORDERED: POTASSIUM CHLORIDE 20 MEQ POWDER PACKET GT SCH (10:30)
[2018-04-21 12:00] VITALS: BP 153/83
[2018-04-21] MEDS ORDERED: POTASSIUM CHLORIDE 20 MEQ TAB.PRT.SR PO ONE (12:00)
[2018-04-21] MEDS: METOLAZONE 2.5 MG TABLET PO SCH (12:34)
[2018-04-21] MEDS: Potassium Phosphate meq 11 MEQ in IV NS 0.9% 100 ML IV SCH ×2 (13:15→15:01)
--- NOTE | 2018-04-21 15:50 | NUR ---
SON CALLED. PT INCREASED WORK OF BREATHING, SPO2:94%, HR: 110. PT ON COOL AEROSOL 28%, 5/L. THROUGH OUT SHIFT PT WAS BREATHING WNL AND COMFORTABLE. INCREASED FIO2 TO 35%, 8/L. SX PT. NOTIFIED RN TO CALL MD TO NOTIFY OF SOB AND ABDOMINAL DISTENSION. REQUESTED TO ASK MD TO ORDER ABG. WILL CONTINUE TO MONITOR PT CLOSELY. Addendum: 04/21/18 at 1642 by ADRIANNA DIETRICH RT Amended: Links added.
[2018-04-21 16:00] VITALS: BP 154/90
[2018-04-21 17:14] LABS: ABG BASE EXCESS 0.8 mmol/L; ABG OXYGEN SATURATION 96.4 % (92.0-98.5); ABG PCO2 34.1 mmHg (35.0-45.0); ABG PH 7.469 (7.350-7.450); AaDO2 118.9 mmHg; COHb 0.3 % (0.5-1.5); MetHb 0.9 % (0.0-1.5); O2Hb 95.2 % (94.0-97.0); SITE, ABG Right Radial; VENT MODE, BG CA 35%
[2018-04-21] MEDS: MEROPENEM 500 MG in IV NS 0.9% 50 ML IV SCH (17:31)
[2018-04-21 20:00] VITALS: BP 158/91
--- NOTE | 2018-04-21 20:00 | NUR ---
RN INITIAL NOTE PT RECEIVED ASLEEP WITH SON AT BEDSIDE. TRACH IN PLACE AND SATURATING WELL. G TUBE FEEDING STOP . HOB ELEVATED. ASPIRATION PRECAUTIONS TAKEN . WILL CONTINUE TO MONITOR.
--- NOTE | 2018-04-21 21:00 | NUR ---
RN NOTES SON REQUESTED THAT TUBE FEEDING BE HELD, BECAUSE OF PT DISTENDED ABD. PER ROWAN MICHAELS, IT IS OK TO HOLD FEEDING OVER NIGHT. WOUND CULTURE SPECIMENS COLLECTED BY ROWAN MICHAELS. ROWAN LAL ALSO ORDERED C DIFF SPECIMEN SENT TO LAB.
[2018-04-21] MEDS: LATANOPROST EYE DROP 0.005% 2.5 ML BOTTLE EACHEYE SCH (21:29)
[2018-04-21 23:28] LABS: OCCULT BLOOD STOOL NEGATIVE (NEGATIVE)
[2018-04-22] VITALS (7 sets, daily range): BP systolic 134–156; BP diastolic 72–95
[2018-04-22] MEDS: BLOOD SUGAR DIAGNOSTIC 1 EACH STRIP IN SCH ×3 (05:31→17:10)
[2018-04-22] MEDS: MEROPENEM 500 MG in IV NS 0.9% 50 ML IV SCH ×2 (05:33→17:09)
--- NOTE | 2018-04-22 06:15 | NUR ---
RN CLOSING NOTE PT REMAINED STABLE DURING SHIFT. NO ACUTE DISTRESS NOTED. G TUBE FEEDING HELD. REPOSITIONED Q2H. SUCTIONED NEEDED. HOB REMAINED ELEVATED AND ON ASPIRATION PRECAUTIONS. WILL ENDORSE TO AM SHIFT FOR CONTINUITY OF CARE.
[2018-04-22 06:51] LABS: BASOPHILS % (AUTO) 0.1 % (0.0-2.0); EOSINOPHILS % (AUTO) 0.7 % (0.0-6.0); HEMATOCRIT 32 % (39-51); HEMOGLOBIN 10.1 g/dL (13.5-17.5); LYMPHOCYTES % (AUTO) 9.7 % (20.0-44.0); MEAN CORPUSCULAR HEMOGLOBIN 28 PG (26.0-33.0); MEAN CORPUSCULAR HGB CONC 32 g/dl (31.0-36.0); MEAN CORPUSCULAR VOLUME 90 fL (80-96); MONOCYTES # (AUTO) 0.7 /CMM (0.1-1.30); MONOCYTES % (AUTO) 6.7 % (2.0-12.0); NEUTROPHILS # (AUTO) 8.2 /CMM (1.8-8.9); NEUTROPHILS % (AUTO) 82.8 % (43.0-81.0); PLATELET COUNT (AUTO) 359 /CMM (150-450); RDW COEFFICIENT OF VARIATION 17.1 (11.5-15.0); RED BLOOD CELL COUNT(AUTO) 3.55 MIL/uL (4.5-6.0); WHITE BLOOD COUNT (AUTO) 9.9 K/uL (4.3-11.0)
[2018-04-22 07:00] LABS: CALCIUM, SERUM 8.4 mg/dL (8.5-10.1); CARBON DIOXIDE 24 mmol/L (21-32); CHLORIDE 107 mmol/L (98-107); CREATININE 1.5 mg/dL (0.6-1.3); GLUCOSE 159 mg/dL (74-106); MAGNESIUM 1.6 mg/dL (1.8-2.4); PHOSPHORUS 2.4 mg/dL (2.5-4.9); POTASSIUM 3.3 mmol/L (3.5-5.1); SODIUM SERUM 141 mmol/L (136-145); UREA NITROGEN, BLOOD 14 mg/dL (7-18)
[2018-04-22] MEDS: VANCOMYCIN 0.75 GM in IV D5W 250 ML IV SCH (08:00)
--- NOTE | 2018-04-22 08:00 | NUR ---
EPIC INTERFACE ANALYST NOTE RECEIVED PATIENT IN BED, WITH OPEN EYES UNABLE TO FOLLOW COMMAND , WITH SLIGHT SOB ,HR 102 [address] ON TELE MONITOR, WITH TRACH TO T PIECE ,FIO2 SAT 28% , WITH VÁSQUEZ CATH TO GRAVITY WITH YELLOW COLOR URINE, ON MID LOWER ABDOMEN WITH INCISION WITH STAPLE AND OPEN WOUND WITH DRAINAGE MOD AMT PINK COLOR , WITH G TUBE IN PLACE. PT IS NPO EXCEPT MEDS. ABD DISTENDED AND HYPOACTIVE BOWEL SOUNDS. MIDLINE AND ANSHU IN PLACE. VANCOMYCIN HELD AT THIS TIME. VANCO LEVEL 26. PHARM NOTIFIED. NO BM NOTED; WILL CONTINUE TO MONITOR. BED IN LOWEST AND LOCKED POSITION. CALL LIGHT W/IN REACH. TRACH CARE DONE, SUCTION DONE. RESP THERAPIST AT BEDSIDE. WILL CONTINUE TO MONITOR CLOSELY.
[2018-04-22] MEDS: CHLORHEXIDINE GLUCONATE 15 ML UDC MM SCH ×2 (09:52→21:37)
[2018-04-22] MEDS: METOLAZONE 2.5 MG TABLET PO SCH (09:53)
[2018-04-22] MEDS: PANTOPRAZOLE 40 MG VIAL IV SCH (09:53)
[2018-04-22] MEDS: AMLODIPINE BESYLATE 5 MG TABLET GT SCH (09:53)
[2018-04-22] MEDS: HYDROGEN PEROXIDE 480 ML BOTTLE TP SCH ×2 (09:54→21:40)
[2018-04-22] MEDS: DORZOLAMIDE OPTH 2% 10 ML BOTTLE EACHEYE SCH ×3 (09:55→16:35)
[2018-04-22] MEDS: MICONAZOLE NITRATE 2% CREAM 1 EA TUBE TP SCH ×2 (09:55→16:35)
[2018-04-22] MEDS: Z GUARD REMEDY 4 OZ OINT TP SCH ×2 (09:55→21:39)
[2018-04-22] MEDS: prednisoLONE ACET 1% OPHT DROP 5 ML BOTTLE EACHEYE SCH ×2 (09:56→16:34)
[2018-04-22] MEDS: FLUCONAZOLE (100 MG) 100 MG TABLET GT SCH (09:56)
[2018-04-22] MEDS ORDERED: Magnesium 1GM/D5W 100ML PREMIX 100 ML IV SCH (11:05)
--- NOTE | 2018-04-22 11:19 | NUR ---
FOOD PRODUCTS TESTER NOTES EYEGLASS FRAME TRUER PAT SURGICAL DEPT AWARE THAT PT HAS DISTENTION OF STOMACH, AND HAS ILEUS. NOTIFIED THAT MAGNESIUM 1.6, PHOSPHORUS 2.4, K 3.3. AWARE THAT TYLENOL GIVEN AT 10AM. WOUND CARE DONE AT BEDSIDE. AWARE THAT PT HAS MODERATE PINK DRAINAGE. STATED CONTINUE NPO AT THIS TIME. STATED SHE WILL ORDER NORCO FOR PAIN PT HR 102 AND SLIGHTLY TACHY.
[2018-04-22] MEDS ORDERED: POTASSIUM CHLORIDE 20 MEQ POWDER PACKET GT SCH (11:30)
[2018-04-22] MEDS ORDERED: HYDROCODONE/APAP 5/325MG 1 EACH TABLET PEG PRN (11:30)
--- NOTE | 2018-04-22 12:37 | NUR ---
ORDER ADMINISTRATOR NOTE PER DR WHITE . AWARE THAT PATIENT ON NPO EXCEPT MEDS , NO IVF AT THIS TIME , T 99.1 TYLENOL WAS GIVEN EARLIER AWARE THAT PATIENT STILL HAS ABDOMINAL DESTINATION Addendum: 04/22/18 at 1239 by SULMA HANNAH RN COOLING MEASURE PROVIDED
[2018-04-22] MEDS: INSULIN REGULAR, HUMAN 100 UNIT/ML 3 ML VIAL SQ PRN (13:14)
--- NOTE | 2018-04-22 13:15 | NUR ---
TURN SEWER NOTES HOLDING COVERAGE FOR INSULIN NOW. DR WHITE NOTIFIED. PT NPO. BS 152 MG/DL
[2018-04-22] MEDS ORDERED: NEUTRA PHOS 1 POWD.PACKET NG ONE (15:30)
--- NOTE | 2018-04-22 15:39 | NUR ---
RECEIVER DISPATCHER NOTES SPOKE TO MYKEL NOVOA NP SURGRICAL CALLED FOR CT SCAN WITH GASTROGRAFFIN GTUBE OF ABDOMEN AND PELVIS. PER RADIOLOGIST, CANNOT DO PROCEDURE, PT ALLERGIC TO IODINE. WILL FOLLOW UP. Addendum: 04/22/18 at 1543 by SULMA HANNAH RN PER MYKEL NOVOA NP, PT NPO EXCEPT MEDS. Addendum: 04/22/18 at 1723 by SULMA HANNAH RN FOR CT SCAN AND ABDOMEN AND PELVIS OBTAINED TELEPHONE CONSENT, PER RADIOLOGY OK TO GASROFFIIN VIA G TUBE WILL ADMINISTER SLOWLY .BY RADIOLOGIST NEED TO ADMINISTERED GASTROGRAFIN DILUTED WITH 1000 ML OF WATER ,WILL F\U , WILL ADMINISTER SLOWLY
[2018-04-22] MEDS ORDERED: DIATR MEGLU/DIATRIZOATE SODIUM 30 ML BOTTLE (GASTROGRAPHIN) ONE (15:50)
--- NOTE | 2018-04-22 18:25 | NUR ---
DRAFT ROLLER PICKER NOTES PT NPO. ADMINISTERING GASTROGRAFFIN SLOWLY VIA GTUBE PATIENT'S ABD STILL DISTENDED. PT NEEDS CT SCAN 3 HOURS AFTER GASTROGRAFFIN IS COMPLETE. FAMILY AT BEDSIDE. PT NOT IN DISTRESS. O2 SAT 98% HR 82. CONTINUING TRACH CARE.
--- NOTE | 2018-04-22 20:00 | NUR ---
RN INITIAL NOTE RECEIVED PATIENT IN BED, WITH OPEN EYES UNABLE TO FOLLOW COMMAND, WITH TRACH TO T PIECE ,FIO2 SAT 28% , WITH VÁSQUEZ CATH TO GRAVITY WITH YELLOW COLOR URINE, MID LOWER ABDOMEN WITH SURGICAL INCISION WITH STAPLE, WITH G TUBE IN PLACE CLAMPED . PT IS NPO EXCEPT MEDS. ABD DISTENDED AND HYPOACTIVE BOWEL SOUNDS. MIDLINE AND ANSHU IN PLACE S/L. VANCOMYCIN HELD AT THIS TIME. WILL CONTINUE TO MONITOR. BED IN LOWEST AND LOCKED POSITION. CALL LIGHT W/IN REACH. WILL CONTINUE TO MONITOR CLOSE
[2018-04-22] MEDS ORDERED: VANCOMYCIN 0.75 GM in IV D5W 250 ML IV SCH (21:00)
[2018-04-22] MEDS: CARVEDILOL 6.25 MG TABLET PO SCH (21:37)
[2018-04-22] MEDS: LATANOPROST EYE DROP 0.005% 2.5 ML BOTTLE EACHEYE SCH (21:39)
[2018-04-23] VITALS: BP 145/81
[2018-04-23] MEDS: BLOOD SUGAR DIAGNOSTIC 1 EACH STRIP IN SCH ×3 (00:10→12:03)
[2018-04-23 04:00] VITALS: BP 153/83
[2018-04-23] MEDS: MEROPENEM 500 MG in IV NS 0.9% 50 ML IV SCH (05:13)
[2018-04-23 06:33] LABS: BASOPHILS % (AUTO) 0.3 % (0.0-2.0); EOSINOPHILS % (AUTO) 1.1 % (0.0-6.0); HEMATOCRIT 34 % (39-51); HEMOGLOBIN 10.6 g/dL (13.5-17.5); LYMPHOCYTES # (AUTO) 0.9 /CMM (0.8-4.8); LYMPHOCYTES % (AUTO) 9.5 % (20.0-44.0); MEAN CORPUSCULAR HEMOGLOBIN 28 PG (26.0-33.0); MEAN CORPUSCULAR HGB CONC 31 g/dl (31.0-36.0); MEAN CORPUSCULAR VOLUME 89 fL (80-96); MONOCYTES # (AUTO) 0.7 /CMM (0.1-1.30); MONOCYTES % (AUTO) 7.4 % (2.0-12.0); NEUTROPHILS # (AUTO) 7.7 /CMM (1.8-8.9); NEUTROPHILS % (AUTO) 81.7 % (43.0-81.0); PLATELET COUNT (AUTO) 351 /CMM (150-450); RDW COEFFICIENT OF VARIATION 17.2 (11.5-15.0); WHITE BLOOD COUNT (AUTO) 9.4 K/uL (4.3-11.0)
[2018-04-23 07:05] LABS: CALCIUM, SERUM 8.3 mg/dL (8.5-10.1); CARBON DIOXIDE 25 mmol/L (21-32); CHLORIDE 105 mmol/L (98-107); CREATININE 1.3 mg/dL (0.6-1.3); GLUCOSE 144 mg/dL (74-106); MAGNESIUM 1.7 mg/dL (1.8-2.4); PHOSPHORUS 2.8 mg/dL (2.5-4.9); POTASSIUM 3.6 mmol/L (3.5-5.1); SODIUM SERUM 139 mmol/L (136-145); UREA NITROGEN, BLOOD 11 mg/dL (7-18)
--- NOTE | 2018-04-23 07:20 | NUR ---
CORE LAYER MACHINE OPERATOR OPENING NOTE RECEIVED PATIENT SLEEPING IN BED IN STABLE CONDITION. NONVERBAL, NO SIGNS OR SYMPTOMS OF APPARENT DISTRESS, OXYGEN SATURATION 99%, SINUS RHYTHM ON INFORMATION SYSTEMS PLANNER, HEART RATE 90S. RIGHT UPPER ARM MIDLINE INTACT. VÁSQUEZ CATHETER DRAINING YELLOW URINE TO GRAVITY. CURRENTLY NPO WITH MEDICATIONS PER MD. G TUBE CLAMPED. REPOSITIONED FOR COMFORT, CALL LIGHT WITHIN REACH, BED LOW AND LOCKED. WILL CONTINUE TO MONITOR.
--- NOTE | 2018-04-23 07:36 | NUR ---
RN CLOSING NOTE PT REMAINED STABLE DURING SHIFT. NO ACUTE DISTRESS NOTED. G TUBE FEEDING HELD. CT SCAN DONE. PT REPOSITIONED Q2H. DRESSING CHANGE DONE. PICS TAKEN. SUCTIONED NEEDED. HOB REMAINED ELEVATED AND ON ASPIRATION PRECAUTIONS. WILL ENDORSE TO AM SHIFT FOR CONTINUITY OF CARE.
[2018-04-23 08:00] VITALS: BP_SYST 144; BP_SYST 165; BP_DIAS 82; BP_DIAS 89
--- NOTE | 2018-04-23 08:26 | NUR ---
WOUND CARE CONSULT: PT PRESENTS WITH LEFT LATERAL 5TH TOE DEEP TISSUE INJURY (INTACT) AND SACRAL DEEP TISSUE INJURY IN EVOLUTION, PRESENT ON ADMISSION. RECOMMENDATIONS MADE FOR WOUND CARE AND SKIN PROTECTION. DISCUSSED WITH NURSING STAFF. DEFER TO SURGEON FOR ABDOMINAL INCISION. PT ON FIRST STEP [facility]. ALL SKIN PROTECTION MEASURES IN PLACE. WILL SEE PRN. GUADARRAMA IN AGREEMENT WITH PLAN OF CARE. Addendum: 04/23/18 at 827 by JOSÉ MIGUEL PARADA Amended: Links added. Addendum: 04/24/18 at 825 by JOSÉ MIGUEL PARADA CORRECTION: ABOVE NOTE SHOULD BE PT PRESENTS WITH RIGHT LATERAL 5TH TOE DEEP TISSUE INJURY (INTACT).
[2018-04-23] MEDS: METOLAZONE 2.5 MG TABLET PO SCH (08:59)
[2018-04-23] MEDS: PANTOPRAZOLE 40 MG VIAL IV SCH (08:59)
[2018-04-23] MEDS: CHLORHEXIDINE GLUCONATE 15 ML UDC MM SCH (08:59)
[2018-04-23] MEDS: FLUCONAZOLE (100 MG) 100 MG TABLET GT SCH (08:59)
[2018-04-23] MEDS: CARVEDILOL 6.25 MG TABLET PO SCH (09:00)
[2018-04-23] MEDS: prednisoLONE ACET 1% OPHT DROP 5 ML BOTTLE EACHEYE SCH (09:01)
[2018-04-23] MEDS: DORZOLAMIDE OPTH 2% 10 ML BOTTLE EACHEYE SCH ×2 (09:02→13:31)
[2018-04-23] MEDS: HYDROGEN PEROXIDE 480 ML BOTTLE TP PRN (09:02)
[2018-04-23] MEDS: MICONAZOLE NITRATE 2% CREAM 1 EA TUBE TP SCH (09:03)
[2018-04-23] MEDS: Z GUARD REMEDY 4 OZ OINT TP SCH (09:08)
[2018-04-23] MEDS: HYDROGEN PEROXIDE 480 ML BOTTLE TP SCH (10:21)
[2018-04-23] MEDS ORDERED: HYDROGEL DRESSING 90 GM TUBE TP SCH (10:30)
[2018-04-23] MEDS ORDERED: HYDROGEL DRESSING 90 GM TUBE TP PRN (10:30)
[2018-04-23] MEDS: Magnesium 1GM/D5W 100ML PREMIX 100 ML IV SCH ×2 (11:00→12:00)
[2018-04-23 12:00] VITALS: BP 144/82
--- NOTE | 2018-04-23 15:28 | NUR ---
HYDRAULIC PUNCH PRESS OPERATOR TRANSFER NOTES PATIENT DC ORDER FROM DR WHITE TO [facility] SUB ACUTE, PATIENT STABLE TO TRANSFER, DC PAPERWORK COMPLETED AND SIGNED, ALL DUE MEDS GIVEN, ALL NEEDS MET, REPORT GIVEN TO VERITO NOVOA, VITAL SIGNS STABLE, MIDLINE PRESENT INTACT PATENT, WILL ENDORSE TO CHANGE MIDLINE DRESSING, VÁSQUEZ CATH INTACT PATENT, TPIECE PRESENT WITH FIO2 28% NO SOB OR ACUTE DISTRESS NOTED, ON TELE MON, WILL CONTINUE CARE AT SUB ACUTE, TRANSFERRED WITH JHONNY FISCHER.
== END 2018-04-23 17:00 | DRG 335 ==
LOC: DS 16:09 → ICU 20:27 → TELE-TD 04-18 13:22 → TELE1 04-20 16:53
PROVIDERS: ADMIT Internal Medicine Nephrology; ATTEND Internal Medicine Nephrology
PROC: 0DNE0ZZ Release Large Intestine, Open Approach (ICD-10-PCS; principal; 2018-04-13)
PROC: 5A1955Z Respiratory Ventilation, Greater than 96 Consecutive Hours (ICD-10-PCS; 2018-04-13)
PROC: 30233N1 Transfusion of Nonautologous Red Blood Cells into Peripheral Vein, Percutaneous Approach (ICD-10-PCS; 2018-04-15)
PROC: 05H533Z Insertion of Infusion Device into Right Subclavian Vein, Percutaneous Approach (ICD-10-PCS; 2018-04-15)
PROC: B546ZZA Ultrasonography of Right Subclavian Vein, Guidance (ICD-10-PCS; 2018-04-15)
DX: K56.699 Other intestinal obstruction unspecified as to partial versus complete obstruction (principal); J69.0 Pneumonitis due to inhalation of food and vomit; I63.9 Cerebral infarction, unspecified; G93.49 Other encephalopathy; J96.21 Acute and chronic respiratory failure with hypoxia; N17.0 Acute kidney failure with tubular necrosis; E43 Unspecified severe protein-calorie malnutrition; Z99.11 Dependence on respirator [ventilator] status; I13.0 Hypertensive heart and chronic kidney disease with heart failure and stage 1 through stage 4 chronic kidney disease, or unspecified chronic kidney disease; Z93.0 Tracheostomy status; Z79.4 Long term (current) use of insulin; Z79.899 Other long term (current) drug therapy; E11.22 Type 2 diabetes mellitus with diabetic chronic kidney disease; E78.5 Hyperlipidemia, unspecified; Z87.01 Personal history of pneumonia (recurrent); Z86.73 Personal history of transient ischemic attack (TIA), and cerebral infarction without residual deficits; R13.10 Dysphagia, unspecified; Z93.1 Gastrostomy status; K80.20 Calculus of gallbladder without cholecystitis without obstruction; K66.0 Peritoneal adhesions (postprocedural) (postinfection); D63.8 Anemia in other chronic diseases classified elsewhere; I11.0 Hypertensive heart disease with heart failure; I50.9 Heart failure, unspecified; N18.9 Chronic kidney disease, unspecified; I44.0 Atrioventricular block, first degree; N50.89 Other specified disorders of the male genital organs; E87.6 Hypokalemia; I25.10 Atherosclerotic heart disease of native coronary artery without angina pectoris; K21.9 Gastro-esophageal reflux disease without esophagitis; K76.0 Fatty (change of) liver, not elsewhere classified; M19.90 Unspecified osteoarthritis, unspecified site; N40.0 Benign prostatic hyperplasia without lower urinary tract symptoms; B37.9 Candidiasis, unspecified; L60.3 Nail dystrophy
CPT/HCPCS: 31720; 36415; 36569; 36600; 71045-TC; 74018; 76870-TC; 80048-TC; 80076-TC; 80202-TC; 81000-TC; 82040-TC; 82272-TC; 82570-TC; 82728-TC; 82803-TC; 82962-TC; 83540-TC; 83735-TC; 84100-TC; 84300-TC; 85025-TC; 85027-TC; 85610-TC; 86850-TC; 86880-TC; 86921-TC; 87040-TC; 87070-TC; 87081-TC; 87086-TC; 87186-TC; 94002-TC; 94003-TC; 94640-TC; 94760-TC; 94762-TC; A4216; A4606; A6248; A6402; A6403; A6407; C9113; J1815; J1940; J2185; J2270; J2543; J2765; J3370; J3475; J3480; J3490; J7030; J7050; J7060; P9016-BL; Q9963

== ENCOUNTER 2018-04-23 15:21 | Inpatient (IN) | END 2018-08-25 16:00 | disposition short-term general hospital (02) | DRG 208 | DX: J96.21 Acute and chronic respiratory failure with hypoxia (principal); J69.0 Pneumonitis due to inhalation of food and vomit; N17.0 Acute kidney failure with tubular necrosis; K56.7 Ileus, unspecified; G93.1 Anoxic brain damage, not elsewhere classified; E87.0 Hyperosmolality and hypernatremia; I13.0 Hypertensive heart and chronic kidney disease with heart failure and stage 1 through stage 4 chronic kidney disease, or unspecified chronic kidney disease; G93.49 Other encephalopathy; J90 Pleural effusion, not elsewhere classified; N18.4 Chronic kidney disease, stage 4 (severe); E11.9 Type 2 diabetes mellitus without complications; D64.9 Anemia, unspecified; Z93.0 Tracheostomy status; Z93.1 Gastrostomy status; R13.10 Dysphagia, unspecified; Z86.73 Personal history of transient ischemic attack (TIA), and cerebral infarction without residual deficits; Z95.0 Presence of cardiac pacemaker; N40.0 Benign prostatic hyperplasia without lower urinary tract symptoms; D69.6 Thrombocytopenia, unspecified; D63.8 Anemia in other chronic diseases classified elsewhere; E78.5 Hyperlipidemia, unspecified; F03.90 Unspecified dementia, unspecified severity, without behavioral disturbance, psychotic disturbance, mood disturbance, and anxiety; F09 Unspecified mental disorder due to known physiological condition; G40.909 Epilepsy, unspecified, not intractable, without status epilepticus; H40.9 Unspecified glaucoma; E11.22 Type 2 diabetes mellitus with diabetic chronic kidney disease; I25.10 Atherosclerotic heart disease of native coronary artery without angina pectoris; I50.9 Heart failure, unspecified; B37.9 Candidiasis, unspecified; K21.9 Gastro-esophageal reflux disease without esophagitis; K76.0 Fatty (change of) liver, not elsewhere classified; K80.20 Calculus of gallbladder without cholecystitis without obstruction; L60.3 Nail dystrophy; E87.6 Hypokalemia; Z98.890 Other specified postprocedural states; N47.2 Paraphimosis; N48.89 Other specified disorders of penis ==

== ENCOUNTER 2018-05-03 18:05 | Outpatient (CLI) | payer MEDICARE, OTHER ==
[~2018-05-03 18:05] MED LIST changes: +ALBU2.5V38 IH; +ALLA266C2 TP; +BLOO-668 IN; -BRIN10DR EACHEYE; -BUME1TAB4 GT; +DEXT50DI8 IV; +DORZ10DR10 EACHEYE; +HYDR1SOL TD; +IPRA0.2S9 IH; -LIDOCAINE; +MICO15CR9 TP; +NON-FORMULARY TP; +NUT.237L30 GT; -OLAN2.5T3 GT; +PANT40VI IV; +[UNRECOGNIZED DRUG - CODE] IV; +[UNRECOGNIZED DRUG - CODE] IV; -[UNRECOGNIZED DRUG - CODE] TP
== END 2018-05-03 23:59 | disposition home or self-care (01) ==
LOC: CT 18:05
PROVIDERS: ATTEND Nurse Practitioner Acute Care
DX: J90 Pleural effusion, not elsewhere classified (principal); J98.11 Atelectasis; K80.20 Calculus of gallbladder without cholecystitis without obstruction; S31.109A Unspecified open wound of abdominal wall, unspecified quadrant without penetration into peritoneal cavity, initial encounter; I25.10 Atherosclerotic heart disease of native coronary artery without angina pectoris; I10 Essential (primary) hypertension; X58.XXXA Exposure to other specified factors, initial encounter; Y93.89 Activity, other specified; Y92.89 Other specified places as the place of occurrence of the external cause; Y99.8 Other external cause status
CPT/HCPCS: 74150-TC

== ENCOUNTER 2018-08-17 14:06 | Outpatient (CLI) | payer MEDICARE, OTHER ==
[~2018-08-17 14:06] MED LIST changes: -AMLO5TAB2 GT; +AMLO5TAB7 GT
[2018-08-18] MEDS ORDERED: HYDR-4384 GT (11:56)
[2018-08-18] MEDS ORDERED: NUT.237L67 GT (11:56)
[2018-08-18] MEDS ORDERED: TAMS-12 GT (11:56)
[2018-08-18] MEDS ORDERED: CARV6.252 GT (11:56)
[2018-08-18] MEDS ORDERED: MULT-447 GT (11:56)
[2018-08-18] MEDS ORDERED: PANT40SU2 GT (11:56)
[2018-08-18] MEDS ORDERED: LORA2VIA11 IM (11:56)
[2018-08-18] MEDS ORDERED: AMIN30LI25 GT (11:56)
[2018-08-18] MEDS ORDERED: VITA56.7 TP (11:56)
[2018-08-18] MEDS ORDERED: ACID1TAB12 GT (11:56)
[2018-08-18] MEDS ORDERED: [UNRECOGNIZED DRUG - CODE] IV (11:56)
[2018-08-18] MEDS ORDERED: ALLA266C2 TP (11:56)
[2018-08-18] MEDS ORDERED: HYDR-4076 GT (11:57)
== END 2018-08-17 23:59 | disposition home or self-care (01) ==
LOC: CT 14:06
PROVIDERS: ATTEND Internal Medicine Pulmonary Disease
DX: I63.9 Cerebral infarction, unspecified (principal); R90.82 White matter disease, unspecified; I67.2 Cerebral atherosclerosis; J32.0 Chronic maxillary sinusitis
CPT/HCPCS: 70450-TC

== ENCOUNTER 2018-08-18 11:14 | Inpatient (IN) | payer MEDICARE, OTHER ==
[2018-08-18] VITALS (35 sets, daily range): BP systolic 118–154; BP diastolic 55–94
[~2018-08-18] VITALS: Ht 177.8 cm; Wt 77.6 kg
[~2018-08-18 11:14] MED LIST changes: -AMLO5TAB7 GT; +AMLO5TAB9 GT
[2018-08-18] MEDS ORDERED: TAMS-12 GT (11:56)
[2018-08-18] MEDS ORDERED: LORA2VIA11 IM (11:56)
[2018-08-18] MEDS ORDERED: AMIN30LI25 GT (11:56)
[2018-08-18] MEDS ORDERED: ALLA266C2 TP (11:56)
[2018-08-18] MEDS ORDERED: ACID1TAB12 GT (11:56)
[2018-08-18] MEDS ORDERED: NUT.237L67 GT (11:56)
[2018-08-18] MEDS ORDERED: VITA56.7 TP (11:56)
[2018-08-18] MEDS ORDERED: [UNRECOGNIZED DRUG - CODE] IV (11:56)
[2018-08-18] MEDS ORDERED: PANT40SU2 GT (11:56)
[2018-08-18] MEDS ORDERED: CARV6.252 GT (11:56)
[2018-08-18] MEDS ORDERED: HYDR-4384 GT (11:56)
[2018-08-18] MEDS ORDERED: MULT-447 GT (11:56)
[2018-08-18] MEDS ORDERED: HYDR-4076 GT (11:57)
[2018-08-18] MEDS ORDERED: DEXTROSE 50%-WATER 50 ML DISP.SYRIN IV PRN ×2 (12:00→12:30)
[2018-08-18] MEDS ORDERED: NOREPINEPHRINE 8 MG in IV D5W 500 ML IV PRN (12:00)
[2018-08-18] MEDS ORDERED: ACETAMINOPHEN 650 MG/SUPP.RECT RC PRN (12:00)
[2018-08-18] MEDS ORDERED: ONDANSETRON HCL/PF 4 MG/2 ML VIAL IVP PRN (12:00)
[2018-08-18] MEDS ORDERED: hydrALAZINE HCL 25 MG TABLET GT PRN (12:00)
[2018-08-18] MEDS ORDERED: NEPRO VAN 237 ML CAN GT SCH (12:00)
[2018-08-18] MEDS ORDERED: BISACODYL SUPP (10 MG) 10 MG/SUPP.RECT SUPP.RECT RC PRN (12:00)
[2018-08-18] MEDS: BLOOD SUGAR DIAGNOSTIC 1 EACH STRIP IN SCH ×3 (12:00→23:53)
[2018-08-18] MEDS ORDERED: IV NS 0.9% 1,000 ML IV PRN (12:30)
[2018-08-18] MEDS ORDERED: SODIUM POLYSTYRENE SULFONATE 15 G/60 ML BOTTLE GT ONE (12:30)
[2018-08-18 12:39] LABS: ABG BASE EXCESS 1.2 mmol/L; ABG OXYGEN SATURATION 90.2 % (92.0-98.5); ABG PCO2 50.8 mmHg (35.0-45.0); ABG PH 7.347 (7.350-7.450); ABG PO2 63.9 mmHg (75.0-100.0); AaDO2 162.9 mmHg; COHb 1.5 % (0.5-1.5); MetHb 0.2 % (0.0-1.5); O2Hb 88.7 % (94.0-97.0); PEEP,BG 5 cm H2O; SITE, ABG Right Radial; VT, ABG 500 mL
--- NOTE | 2018-08-18 13:05 | NUR ---
PER KEN BATISTA HOME THEATRE TECHNICIAN CONTINUE WITH PREVIOUS GTUBE FEEDING NEPRO AT 50 CC/HOUR FOR 20 HOURS VERBAL READBACK DONE
[2018-08-18] MEDS ORDERED: FEE PK DOSING 1 MIN EA MC ONE (13:19)
--- NOTE | 2018-08-18 14:00 | NUR ---
VÁSQUEZ CATHETER INSERTED PER LYNNE FUNERAL ASSISTANT'S ORDERS VIA STERILE TECHNIQUE
[2018-08-18] MEDS: PIPERACILLIN /TAZOBACTAM 2.25 G in IV D5W 50 ML IV SCH ×2 (14:35→21:32)
[2018-08-18] MEDS: METOCLOPRAMIDE HCL 10 MG/10 ML UDC GT SCH ×2 (15:15→21:32)
[2018-08-18] MEDS: DORZOLAMIDE OPTH 2% 10 ML BOTTLE EACHEYE SCH ×2 (15:20→18:17)
[2018-08-18] MEDS: SIMETHICONE 80 MG TAB.CHEW GT SCH ×3 (15:25→23:50)
[2018-08-18] MEDS: VANCOMYCIN 1 GM in IV D5W 250 ML IV SCH (15:37)
[2018-08-18 15:48] LABS: BILIRUBIN,DIRECT 0.5 mg/dL (0.0-0.2); BILIRUBIN,TOTAL 0.6 mg/dL (0.2-1.0)
--- NOTE | 2018-08-18 16:00 | NUR ---
PATIENT'S SON REFUSING PICCLINE INSERTION. BENEFITS AND RISKS EXPLAINED KEN BATISTA DAIRY WORKER NOTIFIED
--- NOTE | 2018-08-18 16:00 | NUR ---
UA AND URINE CULTURE PER KEN BATISTA NP
[2018-08-18 16:05] LABS: APPEARANCE,URINE CLOUDY (CLEAR); BILIRUBIN,URINE NEGATIVE (NEGATIVE); BLOOD, URINE TRACE-INTA Ery/uL (NEGATIVE); COLOR,URINE YELLOW (YELLOW); KETONES,URINE TRACE (NEGATIVE); LEUKOCYTE ESTERASE ,URINE 3+ (NEGATIVE); NITRITE, URINE NEGATIVE (NEGATIVE); PROTEIN,URINE 1+ mg/dl (NEGATIVE); UGLUCOSE NEGATIVE (NEGATIVE); UROBILINOGEN,URINE 0.2 EU/dL (0.2)
[2018-08-18 16:14] LABS: BACTERIA,URINE Many /HPF (None Seen); RBC,URINE 0-2 /HPF (0-2); SQUAMOUS EPITHELIAL CELL,UR Few /HPF (None Seen); WBC,URINE TOO NUMEROUS TO COUN /HPF (0-3)
[2018-08-18] MEDS ORDERED: BLOOD SUGAR DIAGNOSTIC 1 EACH STRIP IN SCH (18:00)
--- NOTE | 2018-08-18 18:00 | NUR ---
MYLICON 1800 DOSE HELD IT WAS ADMINISTERED 2 HOURS AGO PER MED RECON
--- NOTE | 2018-08-18 19:00 | NUR ---
NO SEIZURES NOTED THROUGHOUT SHIFT
--- NOTE | 2018-08-18 19:30 | NUR ---
COMPOSITION FLOOR LAYER RCD PT W/DX HYPOVOLEMIA; PT IS OBTUNDED. SB/NSR ON MONITOR. SHILEY 6 W/VENT SETTINGS AC 16 500 50% +5; PT HAS A MODERATE AMOUNT OF THICK WHITE SECRETIONS. TUBE FEEDING TO BE STARTED; MONITOR FOR RESIDUAL.
--- NOTE | 2018-08-18 19:33 | NUR ---
RESIDUALS NOTED TO BE MORE THAN 50 CC FEEDING HELD PER SON. PROSTAT WELL ASPIRATION PRECAUTIONS IMPLEMENTED THROUGHOUT SHIFT
--- NOTE | 2018-08-18 19:34 | NUR ---
UNABLE TO COLLECT STOOL OB OB AND SPUTUM ENDORSED NIGHT RN
[2018-08-18] MEDS: PROSOURCE / PROSTAT (PYXIS) 30 ML UDC GT SCH ×2 (19:35→21:56)
--- NOTE | 2018-08-18 19:40 | NUR ---
PATIENT RESTING IN BED. NONLABORED BREATHING NOTED ON CURRENT VENT SETTINGS. 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
--- NOTE | 2018-08-18 20:55 | NUR ---
Received pt on vent support, pt is stable on noted settings, alarms are on and audible, ventilator is plugged into red outlet, ambu bag at bedside. Will continue monitoring patient. Addendum: 08/18/18 at 2054 by JONN GOODEN RT Amended: Links added.
--- NOTE | 2018-08-18 21:00 | NUR ---
CHIEF PAYROLL CLERK SPUTUM CULTURE COLLECTED BY RT; CALLED LAB FOR WALLPAPER INSPECTOR AND SHIPPER.
[2018-08-18] MEDS: CHLORHEXIDINE GLUCONATE 15 ML UDC MM SCH (21:32)
[2018-08-18] MEDS: LACOSAMIDE ORAL SOLN 50 MG/5 ML UDC GT SCH (21:32)
[2018-08-18] MEDS: Z GUARD REMEDY 2 OZ OINT TP SCH (21:34)
[2018-08-18] MEDS: LATANOPROST EYE DROP 0.005% 2.5 ML BOTTLE EACHEYE SCH (21:35)
[2018-08-18] MEDS: NEPRO 1,000 ML BOTTLE GT PRN (22:00)
[2018-08-18] MEDS ORDERED: ATORVASTATIN 40 MG TABLET GT SCH (22:00)
--- NOTE | 2018-08-18 22:00 | NUR ---
BEREAVEMENT COUNSELOR STARTED NEPRO @ 10 ML/HR FOR WITH A GOAL OF 50 ML/HR.
[2018-08-18] MEDS: INSULIN REGULAR, HUMAN 100 UNIT/ML 3 ML VIAL SQ PRN (23:58)
[2018-08-19] VITALS (45 sets, daily range): BP systolic 114–166; BP diastolic 60–150
--- NOTE | 2018-08-19 02:00 | NUR ---
WOOD AND WOOD PRODUCTS LABOURER PT REQUIRES FREQUENT SUCTIONING AND ORAL CARE; TURN AND REPOSITION Q2HRS AND CONTINUE OFFLOADING EXTREMITIES.
[2018-08-19] MEDS: PIPERACILLIN /TAZOBACTAM 2.25 G in IV D5W 50 ML IV SCH ×4 (03:25→22:07)
--- NOTE | 2018-08-19 04:00 | NUR ---
FLUID DESIGNER MINIMAL RESIDUAL NOTED; NEPRO INCREASED TO 40 ML/HR CONTINUE TO MONITOR.
[2018-08-19] MEDS: PROSOURCE / PROSTAT (PYXIS) 30 ML UDC GT SCH ×3 (04:22→22:08)
[2018-08-19] MEDS: METOCLOPRAMIDE HCL 10 MG/10 ML UDC GT SCH ×3 (04:22→22:07)
[2018-08-19 04:54] LABS: BASOPHILS % (AUTO) 0.3 % (0.0-2.0); EOSINOPHILS % (AUTO) 2.1 % (0.0-6.0); HEMATOCRIT 27 % (39-51); HEMOGLOBIN 8.4 g/dL (13.5-17.5); LYMPHOCYTES # (AUTO) 0.8 /CMM (0.8-4.8); LYMPHOCYTES % (AUTO) 15.4 % (20.0-44.0); MEAN CORPUSCULAR HGB CONC 31 g/dl (31.0-36.0); MEAN CORPUSCULAR VOLUME 91 fL (80-96); MONOCYTES # (AUTO) 0.7 /CMM (0.1-1.30); MONOCYTES % (AUTO) 13.2 % (2.0-12.0); NEUTROPHILS # (AUTO) 3.7 /CMM (1.8-8.9); PLATELET COUNT (AUTO) 89 /CMM (150-450); RED BLOOD CELL COUNT(AUTO) 2.97 MIL/uL (4.5-6.0); WHITE BLOOD COUNT (AUTO) 5.4 K/uL (4.3-11.0)
[2018-08-19 05:11] LABS: ALANINE AMINOTRANSFERASE 113 U/L (12-78); ALKALINE PHOSPHATASE 808 U/L (46-116); ASPARTATE AMINOTRANSFERASE 99 U/L (15-37); BILIRUBIN,TOTAL 0.6 mg/dL (0.2-1.0); CALCIUM, SERUM 8.6 mg/dL (8.5-10.1); CARBON DIOXIDE 28 mmol/L (21-32); CHLORIDE 107 mmol/L (98-107); GLUCOSE 168 mg/dL (74-106); POTASSIUM 4.3 mmol/L (3.5-5.1); SODIUM SERUM 145 mmol/L (136-145); TOTAL PROTEIN, SERUM 8.1 g/dL (6.4-8.2)
[2018-08-19 05:12] LABS: UREA NITROGEN, BLOOD 114 mg/dL (7-18)
[2018-08-19 05:36] LABS: EOSINOPHILS % (MANUAL) 3 % (0-4); LYMPHOCYTES % (MANUAL) 12 % (16-48); MONOCYTES % (MANUAL) 9 % (0-11.0)
[2018-08-19 05:37] LABS: BAND % (MANUAL) 2 % (0.0-5.0); NEUTROPHILS % (MANUAL) 74 (42-76)
--- NOTE | 2018-08-19 05:43 | NUR ---
EVENT PRODUCER COMPLETE BED BATH AND LINEN CHANGE RENDERED; PT TOLERATED WELL.
[2018-08-19] MEDS: SIMETHICONE 80 MG TAB.CHEW GT SCH ×3 (05:45→17:47)
[2018-08-19] MEDS: INSULIN REGULAR, HUMAN 100 UNIT/ML 3 ML VIAL SQ PRN ×3 (05:48→18:01)
[2018-08-19] MEDS: BLOOD SUGAR DIAGNOSTIC 1 EACH STRIP IN SCH ×3 (05:49→17:47)
--- NOTE | 2018-08-19 08:00 | NUR ---
SENIOR HEALTH EDUCATOR: pt.is obtunded, reactive by light pain, no sedation, rest, O2 sat. over 95%, RR WNL, suctioned x2 with lavage, SR/SB down to 52 episodes, SBP over 100 below 160, GTF residual 5 ml, goal 50 ml, no BM by report, K+ 4.2, BUN 114/waiting wound treatment rn consult, RT updated
[2018-08-19] MEDS: ACIDOPHILUS/BULGARICUS 1 EACH TAB.CHEW GT SCH (08:31)
[2018-08-19] MEDS: FINASTERIDE (5 MG) 5 MG TABLET GT SCH (08:31)
[2018-08-19] MEDS: CHLORHEXIDINE GLUCONATE 15 ML UDC MM SCH ×2 (08:31→22:06)
[2018-08-19] MEDS: PANTOPRAZOLE 40 MG VIAL IV SCH (08:31)
[2018-08-19] MEDS: MULTIVITAMINS,THERAGRAN 1 UDTAB TABLET GT SCH (08:31)
[2018-08-19] MEDS: LACOSAMIDE ORAL SOLN 50 MG/5 ML UDC GT SCH ×2 (08:31→22:05)
[2018-08-19] MEDS: TAMSULOSIN 0.4 MG CAP.SR.24H PO SCH (08:31)
[2018-08-19] MEDS: DORZOLAMIDE OPTH 2% 10 ML BOTTLE EACHEYE SCH ×3 (08:32→16:56)
[2018-08-19] MEDS: Z GUARD REMEDY 2 OZ OINT TP SCH ×2 (08:33→21:00)
[2018-08-19] MEDS: VITAMINS A AND D 56.7 GM TUBE TP SCH (08:34)
[2018-08-19] MEDS ORDERED: ASCORBIC ACID SYRUP 500 MG/5 ML UDC GT SCH (09:00)
--- NOTE | 2018-08-19 09:45 | NUR ---
MACHINE OPERATOR GENERAL: REGAN Connors is in room, updated with pt.VS, I/O, GTF, no BM, suction amount, labs
--- NOTE | 2018-08-19 10:18 | NUR ---
EQUIPMENT OPERATOR WAREHOUSE: is in room, updated with pt.current condition, VS, SB, I/O, GTF, O2sat./suction amount, neurostatus
--- NOTE | 2018-08-19 11:41 | NUR ---
HACKSAW INSPECTOR: notified re consult order, Buck MICHAELS updated with pt.condition, VS, I/O, GTF, labs, neurostatus, suction amount, see new orders
--- NOTE | 2018-08-19 12:30 | NUR ---
TRANSITION LEAD: is in room, updated with all above, see new orders, agree for [facility] transfer
[2018-08-19] MEDS: ASCORBIC ACID 500 MG TABLET GT SCH (13:31)
--- NOTE | 2018-08-19 14:30 | NUR ---
CUT TO LENGTH OPERATOR: called to lab to picking supervisor samples, called to pharmacy to get Vanco bag, pt.son is in room, notified re pt.VS, orders, labs, POC, suction amount, I/O, GTF, BMx1
[2018-08-19] MEDS: VANCOMYCIN 1 GM in IV D5W 250 ML IV SCH (14:57)
[2018-08-19 16:05] LABS: APPEARANCE,URINE SL CLOUDY (CLEAR); BILIRUBIN,URINE NEGATIVE (NEGATIVE); BLOOD, URINE 3+ Ery/uL (NEGATIVE); COLOR,URINE YELLOW (YELLOW); KETONES,URINE NEGATIVE (NEGATIVE); LEUKOCYTE ESTERASE ,URINE 3+ (NEGATIVE); NITRITE, URINE NEGATIVE (NEGATIVE); PROTEIN,URINE 1+ mg/dl (NEGATIVE); UGLUCOSE NEGATIVE (NEGATIVE); UROBILINOGEN,URINE 0.2 EU/dL (0.2)
[2018-08-19 16:35] LABS: BACTERIA,URINE 4+ /HPF (None Seen); RBC,URINE 21-50 /HPF (0-2); SQUAMOUS EPITHELIAL CELL,UR 0-2 /HPF (None Seen); TRIPLE PHOSPHATE CRYSTAL,UR Rare /HPF (None Seen); WBC,URINE 21-50 /HPF (0-3)
[2018-08-19 16:37] LABS: CREATININE, URINE 66.7 MG/DL (30.0-125.0); URINE TOTAL PROTEIN 79.5 mg/dL (0-11.9)
--- NOTE | 2018-08-19 16:48 | NUR ---
SCIENTIFIC RESEARCH MANAGER: pt.is rest, same neuro status, SR/SB, SBP over 100, below 160, O2sat. over 97%, suctioned well, no SOB, GTF residual WNL, had BMx1/no blood, all PM,skin care done, pt.son is at BS, by charge nurse Ok to transfer to [facility]
--- NOTE | 2018-08-19 17:11 | NUR ---
KICKBOXING INSTRUCTOR: full report was given for BRIGHT Russell/SHOBHA
[2018-08-19 17:51] LABS: EOSINOPHIL,URINE Rare
[2018-08-19 19:56] LABS: OCCULT BLOOD STOOL NEGATIVE (NEGATIVE)
[2018-08-19] MEDS ORDERED: LACOSAMIDE ORAL SOLN 50 MG/5 ML UDC ONE (21:59)
[2018-08-19] MEDS: LATANOPROST EYE DROP 0.005% 2.5 ML BOTTLE EACHEYE SCH (22:09)
[2018-08-20] VITALS: BP 146/72
[2018-08-20] MEDS: BLOOD SUGAR DIAGNOSTIC 1 EACH STRIP IN SCH ×4 (01:32→17:36)
[2018-08-20] MEDS: INSULIN REGULAR, HUMAN 100 UNIT/ML 3 ML VIAL SQ PRN ×3 (01:33→18:16)
[2018-08-20] MEDS: PIPERACILLIN /TAZOBACTAM 2.25 G in IV D5W 50 ML IV SCH ×4 (03:37→21:41)
[2018-08-20 04:00] VITALS: BP 131/66
[2018-08-20] MEDS: METOCLOPRAMIDE HCL 10 MG/10 ML UDC GT SCH ×3 (05:21→21:38)
[2018-08-20] MEDS: SIMETHICONE 80 MG TAB.CHEW GT SCH ×4 (05:21→17:35)
[2018-08-20] MEDS: PROSOURCE / PROSTAT (PYXIS) 30 ML UDC GT SCH ×3 (05:44→21:38)
[2018-08-20 06:27] LABS: BASOPHILS % (AUTO) 0.2 % (0.0-2.0); EOSINOPHILS % (AUTO) 2.9 % (0.0-6.0); HEMATOCRIT 27 % (39-51); HEMOGLOBIN 8.5 g/dL (13.5-17.5); LYMPHOCYTES % (AUTO) 17.2 % (20.0-44.0); MEAN CORPUSCULAR HGB CONC 32 g/dl (31.0-36.0); MEAN CORPUSCULAR VOLUME 90 fL (80-96); MONOCYTES # (AUTO) 0.8 /CMM (0.1-1.30); NEUTROPHILS # (AUTO) 3.9 /CMM (1.8-8.9); NEUTROPHILS % (AUTO) 66.7 % (43.0-81.0); PLATELET COUNT (AUTO) 89 /CMM (150-450); RED BLOOD CELL COUNT(AUTO) 2.99 MIL/uL (4.5-6.0); WHITE BLOOD COUNT (AUTO) 5.9 K/uL (4.3-11.0)
[2018-08-20 06:41] LABS: ALANINE AMINOTRANSFERASE 114 U/L (12-78); ALBUMIN 1.9 g/dL (3.4-5.0); ALKALINE PHOSPHATASE 896 U/L (46-116); ASPARTATE AMINOTRANSFERASE 114 U/L (15-37); BILIRUBIN,TOTAL 0.6 mg/dL (0.2-1.0); CALCIUM, SERUM 8.3 mg/dL (8.5-10.1); CARBON DIOXIDE 31 mmol/L (21-32); CHLORIDE 109 mmol/L (98-107); GLUCOSE 130 mg/dL (74-106); MAGNESIUM 2.6 mg/dL (1.8-2.4); PHOSPHORUS 3.3 mg/dL (2.5-4.9); POTASSIUM 3.7 mmol/L (3.5-5.1); SODIUM SERUM 147 mmol/L (136-145); TOTAL PROTEIN, SERUM 7.8 g/dL (6.4-8.2)
[2018-08-20 06:42] LABS: UREA NITROGEN, BLOOD 106 mg/dL (7-18)
--- NOTE | 2018-08-20 07:25 | NUR ---
RT NOTE: PT. 77 Y OLD MALE OBTUNDED REC. TRACH'D YANY # 6 ON VENT WITH NOTED SETTINGS, ALARMS SET AND FUNCTIONAL. B/S RHONCHI BILATERALLY, EQUAL CHEST RISE NOTED. SUX'D FOR MOD. AMT OF YELLOW/PALE SECRETIONS, NO DISTRESS NOTED TONY. SETTINGS, CONTINUE FOR MONITOR AND CARE. AMBU BAG AT THE BEDSIDE. VENT PLUGGED INTO RED OUTLET. Addendum: 08/20/18 at 0843 by KAYDEN NGUYEN RT Amended: Links added.
[2018-08-20 08:00] VITALS: BP_SYST 131; BP_SYST 139; BP_DIAS 66; BP_DIAS 73
[2018-08-20] MEDS: FINASTERIDE (5 MG) 5 MG TABLET GT SCH (09:17)
[2018-08-20] MEDS: ASCORBIC ACID 500 MG TABLET GT SCH (09:17)
[2018-08-20] MEDS: MULTIVITAMINS,THERAGRAN 1 UDTAB TABLET GT SCH (09:17)
[2018-08-20] MEDS: CHLORHEXIDINE GLUCONATE 15 ML UDC MM SCH ×2 (09:18→21:38)
[2018-08-20] MEDS: Z GUARD REMEDY 2 OZ OINT TP SCH ×2 (09:18→21:00)
[2018-08-20] MEDS: ACIDOPHILUS/BULGARICUS 1 EACH TAB.CHEW GT SCH (09:18)
[2018-08-20] MEDS: TAMSULOSIN 0.4 MG CAP.SR.24H PO SCH (09:18)
[2018-08-20] MEDS: PANTOPRAZOLE 40 MG VIAL IV SCH (09:18)
[2018-08-20] MEDS: VITAMINS A AND D 56.7 GM TUBE TP SCH (09:19)
[2018-08-20] MEDS: LATANOPROST EYE DROP 0.005% 2.5 ML BOTTLE EACHEYE SCH (09:19)
[2018-08-20] MEDS: DORZOLAMIDE OPTH 2% 10 ML BOTTLE EACHEYE SCH ×3 (09:21→17:39)
[2018-08-20] MEDS ORDERED: BUMETANIDE INJ 16 MG in IV NS 0.9% 16 ML IV ONE (10:00)
[2018-08-20] MEDS: LACOSAMIDE ORAL SOLN 50 MG/5 ML UDC GT SCH ×2 (11:39→21:38)
[2018-08-20 12:00] VITALS: BP 142/81
[2018-08-20 16:00] VITALS: BP 136/56
[2018-08-20 20:00] VITALS: BP 154/81
--- NOTE | 2018-08-20 20:00 | NUR ---
RN/SHOBHA NOTES: RECEIVED PT. IN BED W/ HOB ELEVATED. PT. IS OBTUNDED. PT. IS VENT/TRACH DEPENDENT. TOLERATING CURRENT SETTINGS WELL. SUCTIONED PRN. SON AT BEDSIDE. W/ GTF PATENT AND INTACT W/ NO RESIDUAL NOTED. ON TELE W/ SR 74. HAS RH G 20 AND LEFT HAND 20 PATENT AND INTACT W/ NO S/S OF INFECTION/INFILTRATION NOTED. W/ F/C PATENT AND INTACT DRAINING VIA GRAVITY. INCONTINENT CARE RENDERED. WILL CONTINUE TO MONITOR.
[2018-08-21] VITALS: BP 149/70
[2018-08-21] MEDS: SIMETHICONE 80 MG TAB.CHEW GT SCH ×4 (00:49→17:52)
[2018-08-21] MEDS: BLOOD SUGAR DIAGNOSTIC 1 EACH STRIP IN SCH ×4 (00:53→17:49)
[2018-08-21] MEDS: INSULIN REGULAR, HUMAN 100 UNIT/ML 3 ML VIAL SQ PRN ×4 (00:56→17:52)
[2018-08-21 04:00] VITALS: BP 141/75
[2018-08-21] MEDS: PIPERACILLIN /TAZOBACTAM 2.25 G in IV D5W 50 ML IV SCH ×4 (04:01→20:46)
[2018-08-21] MEDS: PROSOURCE / PROSTAT (PYXIS) 30 ML UDC GT SCH ×3 (04:35→21:00)
[2018-08-21] MEDS: METOCLOPRAMIDE HCL 10 MG/10 ML UDC GT SCH ×3 (04:35→20:46)
[2018-08-21 06:59] LABS: CALCIUM, SERUM 8.2 mg/dL (8.5-10.1); CARBON DIOXIDE 33 mmol/L (21-32); CHLORIDE 106 mmol/L (98-107); GLUCOSE 209 mg/dL (74-106); POTASSIUM 2.9 mmol/L (3.5-5.1); SODIUM SERUM 148 mmol/L (136-145)
[2018-08-21 07:01] LABS: UREA NITROGEN, BLOOD 86 mg/dL (7-18)
--- NOTE | 2018-08-21 07:32 | NUR ---
TELE/RN NOTES: REPORT GIVEN TO NEXT SHIFT NURSE FOR ERNST.
[2018-08-21 08:00] VITALS: BP 147/60
[2018-08-21] MEDS: PANTOPRAZOLE 40 MG VIAL IV SCH (09:05)
[2018-08-21] MEDS: ACIDOPHILUS/BULGARICUS 1 EACH TAB.CHEW GT SCH (09:05)
[2018-08-21] MEDS: TAMSULOSIN 0.4 MG CAP.SR.24H PO SCH (09:05)
[2018-08-21] MEDS: ASCORBIC ACID 500 MG TABLET GT SCH (09:05)
[2018-08-21] MEDS: MULTIVITAMINS,THERAGRAN 1 UDTAB TABLET GT SCH (09:05)
[2018-08-21] MEDS: FINASTERIDE (5 MG) 5 MG TABLET GT SCH (09:05)
[2018-08-21] MEDS: CHLORHEXIDINE GLUCONATE 15 ML UDC MM SCH ×2 (09:06→20:46)
[2018-08-21] MEDS: VITAMINS A AND D 56.7 GM TUBE TP SCH (09:07)
[2018-08-21] MEDS: LACOSAMIDE ORAL SOLN 50 MG/5 ML UDC GT SCH ×2 (09:09→20:46)
[2018-08-21] MEDS: Z GUARD REMEDY 2 OZ OINT TP SCH ×2 (09:09→20:47)
[2018-08-21] MEDS: NEPRO 1,000 ML BOTTLE GT PRN (09:12)
[2018-08-21] MEDS: DORZOLAMIDE OPTH 2% 10 ML BOTTLE EACHEYE SCH ×3 (09:12→17:53)
[2018-08-21] MEDS: HYDROCODONE/APAP 5/325MG 1 EACH TABLET GT PRN (09:14)
[2018-08-21] MEDS ORDERED: POTASSIUM CHLORIDE 20 MEQ TAB.PRT.SR PO ONE (10:30)
[2018-08-21] MEDS ORDERED: POTASSIUM CHLORIDE 20 MEQ POWDER PACKET GT ONE (11:00)
[2018-08-21 12:00] VITALS: BP 137/51
[2018-08-21 16:00] VITALS: BP 140/67
--- NOTE | 2018-08-21 18:45 | NUR ---
RT NOTE: PT. 77 Y OLD MALE OBTUNDED REC. A BEGINNING OF AM SHIFT TRACH'D YAMILALEY # 6 ON VENT WITH NOTED SETTINGS, ALARMS SET AND FUNCTIONAL. B/S RHONCHI BILATERALLY, EQUAL CHEST RISE NOTED. SUX'D FOR MOD. AMT OF YELLOW/PALE SECRETIONS, NO DISTRESS NOTED TONY. SETTINGS, CONTINUE FOR MONITOR AND CARE. AMBU BAG AT THE BEDSIDE. VENT PLUGGED INTO RED OUTLET. Addendum: 08/21/18 at 1845 by KAYDEN NGUYEN RT Amended: Links added.
[2018-08-21 20:00] VITALS: BP 155/74
[2018-08-21] MEDS: LATANOPROST EYE DROP 0.005% 2.5 ML BOTTLE EACHEYE SCH (22:03)
[2018-08-22] VITALS: BP 143/65
[2018-08-22] MEDS: SIMETHICONE 80 MG TAB.CHEW GT SCH ×4 (00:06→17:05)
[2018-08-22] MEDS: INSULIN REGULAR, HUMAN 100 UNIT/ML 3 ML VIAL SQ PRN ×3 (00:06→11:39)
[2018-08-22] MEDS: BLOOD SUGAR DIAGNOSTIC 1 EACH STRIP IN SCH ×4 (00:06→17:05)
[2018-08-22] MEDS: PIPERACILLIN /TAZOBACTAM 2.25 G in IV D5W 50 ML IV SCH ×3 (02:51→14:06)
[2018-08-22 04:00] VITALS: BP 141/66
[2018-08-22] MEDS: PROSOURCE / PROSTAT (PYXIS) 30 ML UDC GT SCH ×3 (04:59→22:12)
[2018-08-22] MEDS: METOCLOPRAMIDE HCL 10 MG/10 ML UDC GT SCH ×3 (05:00→22:12)
[2018-08-22] MEDS: NEPRO 1,000 ML BOTTLE GT PRN (05:52)
--- NOTE | 2018-08-22 06:18 | NUR ---
QUANTITATIVE ANALYST MARKETING NOTES PT AWAKE. NON VERBAL WITH SAME VENT SETTINGS. NOT IN ANY DISTRESS. NO SOB NOTED. NO S/SX OF ANY PAIN OR DISCOMFORT AT THIS TIME. WITH GTF INFUSING WELL. WITH IV-HL PATENT & INTACT. WITH F/C DRAINING TO YELLOWISH OUTPUT MODERATE IN AMOUNT. AM CARE DONE. MONITORED ACCORDINGLY. CALL LIGHT WITHIN REACH. BED IN LOWEST POSITION. SR UP X3 WITH BED ALARM ON FOR SAFETY. WILL ENDORSE TO NEXT SHIFT.
[2018-08-22 06:35] LABS: CALCIUM, SERUM 8.4 mg/dL (8.5-10.1); CARBON DIOXIDE 31 mmol/L (21-32); CHLORIDE 110 mmol/L (98-107); CREATININE 1.6 mg/dL (0.6-1.3); GLUCOSE 215 mg/dL (74-106); POTASSIUM 3.1 mmol/L (3.5-5.1); SODIUM SERUM 150 mmol/L (136-145)
[2018-08-22 06:38] LABS: UREA NITROGEN, BLOOD 81 mg/dL (7-18)
--- NOTE | 2018-08-22 07:35 | NUR ---
PT REC'D TRACHED ON [facility] VENT ON AC MODE. NO RESP DISTRESS OR SOB NOTED. TRACH PATENT AND SECURED. RISK CONSULTANT CUFF PRESSURE NOTED. SX'D FOR THICK MOD AMT FROTHY WHITE SECRETIONS. ALARMS ARE SET AND AUDIBLE. VENT PLUGGED INTO RED OUTLET. AMBU BAG BEDSIDE. WILL CONTINUE TO MONITOR. Addendum: 08/22/18 at 1113 by PAUL ALMARAZ RT Amended: Links added.
--- NOTE | 2018-08-22 07:48 | NUR ---
RN OPENING NOTES RECEIVED PT. PT STABLE AND IN BED. OBTUNDED. NO S/S OF RESP DISTRESS/SOB. PT IS TRACH/VENT DEPENDENT. PER PELEG, SETTINGS TO BE CHANGED (PEEP 5, PSV 12) AT 0800 WITH F/U ABG AT 0900. CPAP TO TITRATE SPO2 GREATER OR EQUAL THAQN 94%. PT DOES NOT APPEAR TO BE IN PAIN AT THIS TIME. IV ACCESSES LCOATED ON RIGHT HAND X 2 AND LEFT HAND ALL CURRENTLY SL. SAFETY MEASURES IN PLACE,C ALL LIGHT WITHIN REACH. WILL CONTINUE TO MONITOR.
[2018-08-22 08:00] VITALS: BP 143/75
--- NOTE | 2018-08-22 08:05 | NUR ---
pt placed on cpap mode per dr joel linton to be taken in 1 hr Addendum: 08/22/18 at 1113 by PAUL ALMARAZ RT Amended: Links added.
[2018-08-22] MEDS: PANTOPRAZOLE 40 MG VIAL IV SCH (08:22)
[2018-08-22] MEDS: TAMSULOSIN 0.4 MG CAP.SR.24H PO SCH (08:22)
[2018-08-22] MEDS: CHLORHEXIDINE GLUCONATE 15 ML UDC MM SCH ×2 (08:22→22:12)
[2018-08-22] MEDS: ACIDOPHILUS/BULGARICUS 1 EACH TAB.CHEW GT SCH (08:22)
[2018-08-22] MEDS: ASCORBIC ACID 500 MG TABLET GT SCH (08:22)
[2018-08-22] MEDS: FINASTERIDE (5 MG) 5 MG TABLET GT SCH (08:22)
[2018-08-22] MEDS: MULTIVITAMINS,THERAGRAN 1 UDTAB TABLET GT SCH (08:22)
[2018-08-22] MEDS: Z GUARD REMEDY 2 OZ OINT TP SCH ×2 (08:23→22:13)
[2018-08-22] MEDS: VITAMINS A AND D 56.7 GM TUBE TP SCH (08:23)
[2018-08-22] MEDS: DORZOLAMIDE OPTH 2% 10 ML BOTTLE EACHEYE SCH ×3 (08:24→16:12)
[2018-08-22] MEDS: LACOSAMIDE ORAL SOLN 50 MG/5 ML UDC GT SCH ×2 (08:26→22:12)
[2018-08-22 09:25] LABS: ABG BASE EXCESS 5.5 mmol/L; ABG OXYGEN SATURATION 97.3 % (92.0-98.5); ABG PCO2 39.4 mmHg (35.0-45.0); ABG PH 7.489 (7.350-7.450); ABG PO2 108.8 mmHg (75.0-100.0); AaDO2 167.2 mmHg; COHb 0.9 % (0.5-1.5); MetHb 0.5 % (0.0-1.5); O2Hb 95.9 % (94.0-97.0); SITE, ABG Left Radial
--- NOTE | 2018-08-22 09:42 | NUR ---
RN NOTES SPONTANEOUS BREATHING TRIAL PERFORMED. VENT SETTINGS CHANGED: PEEP 5, PSV 12. ABG DRAWN ONE HOUR FOLLOWING CHANGE OF VENT SETTINGS. ABG RESULTS RESULTED. WILL F/U WITH AUCTIONEER ART AND PROVIDE ABG RESULTS.
[2018-08-22] MEDS: POTASSIUM CHLORIDE 20 MEQ POWDER PACKET GT SCH ×2 (10:41→11:27)
[2018-08-22 12:00] VITALS: BP 104/61
[2018-08-22] MEDS ORDERED: KEY,NONCONTROL,TO KEEP IN PYXI 1 EA MC ONE (15:43)
[2018-08-22 16:00] VITALS: BP 127/75
[2018-08-22] MEDS ORDERED: CEFTRIAXONE 1 G in IV D5W 50 ML IV SCH (18:00)
--- NOTE | 2018-08-22 18:55 | NUR ---
RN CLOSING NOTES PT IN BED RESTING. NO S/S OF RESP DISTRESS/SOB, PT VENT DEPENDENT SETTINGS IN PLACE. PT PERFORMED SPONTANEOUS BREATHING TEST IN AM, F/U ORDERS PLACED BY MD AGUDELO. ALL PT NEEDS ANTICIPATED AND MET. SAFETY MEASURES IN PLACE, CALL LIGHT WITHIN REACH. WILL ENDORSE TO PLACEMENT OFFICER FOR ERNST.
[2018-08-22 20:00] VITALS: BP 127/61
--- NOTE | 2018-08-22 20:00 | NUR ---
BROADCAST SYSTEMS ENGINEER OPENING NOTES REPORT RECEIVED FROM HELENE NOVOA. PATIENT OBTUNDED BUT RESPONSIVE TO VERBAL & TACTILE STIMULI. BREATHING EVEN & UNLABORED W/ TRACH INTACT & TOLERATING CPAP SETTINGS. NO S/S OF RESPIRATORY DISTRESS NOTED. ON TELE W/ SINUS RHYTHM, HR 66. RIGHT & LEFT HAND IV #20 INTACT & PATENT W/ DRESSING CDI, SALINE LOCKED. G-TUBE PATENT & FLUSHING WELL, GTF NEPRO RUNNING @ 50 ML/HR. MINIMAL RESIDUAL NOTED. VÁSQUEZ CATH DRAINING YELLOW URINE. NO S/S OF PAIN OR DISCOMFORT @ THIS TIME. SAFETY MEASURES IN PLACE W/ SIDE RAILS UP & BED ALARM ON. WILL CONTINUE TO MONITOR.
[2018-08-22] MEDS: LATANOPROST EYE DROP 0.005% 2.5 ML BOTTLE EACHEYE SCH (22:13)
[2018-08-23] VITALS: BP 139/62
[2018-08-23] MEDS: BLOOD SUGAR DIAGNOSTIC 1 EACH STRIP IN SCH ×5 (00:23→23:33)
[2018-08-23] MEDS: SIMETHICONE 80 MG TAB.CHEW GT SCH ×5 (00:23→23:32)
[2018-08-23] MEDS: INSULIN REGULAR, HUMAN 100 UNIT/ML 3 ML VIAL SQ PRN ×5 (00:24→23:34)
[2018-08-23] MEDS: HYDROCODONE/APAP 5/325MG 1 EACH TABLET GT PRN ×2 (02:29→23:33)
[2018-08-23 04:00] VITALS: BP 131/39
[2018-08-23] MEDS: METOCLOPRAMIDE HCL 10 MG/10 ML UDC GT SCH ×3 (05:52→21:11)
[2018-08-23] MEDS: PROSOURCE / PROSTAT (PYXIS) 30 ML UDC GT SCH ×3 (05:52→21:11)
[2018-08-23 06:36] LABS: CALCIUM, SERUM 8.1 mg/dL (8.5-10.1); CARBON DIOXIDE 33 mmol/L (21-32); CHLORIDE 112 mmol/L (98-107); CREATININE 1.8 mg/dL (0.6-1.3); GLUCOSE 224 mg/dL (74-106); POTASSIUM 3.7 mmol/L (3.5-5.1); SODIUM SERUM 152 mmol/L (136-145); UREA NITROGEN, BLOOD 73 mg/dL (7-18)
--- NOTE | 2018-08-23 07:45 | NUR ---
SPORTS ADMINISTRATOR NOTES REPORT RECEIVED IN BED PATIENT OBTUNDED BUT RESPONSIVE TOO TACTILE STIMULI. BREATHING EVEN & UNLABORED W/ TRACH INTACT & TOLERATING CPAP SETTINGS. NO S/S OF RESPIRATORY DISTRESS NOTED. ON TELE W/ SINUS RHYTHM, RIGHT & LEFT HAND IV #20 INTACT & PATENT WITH G-TUBE PATENT & FLUSHING WELL, GTF NEPRO RUNNING @ 50 ML/HR. KEEP HOB ELEVATED AT ALL TIME, VÁSQUEZ CATH DRAINING YELLOW URINE. NO S/S OF PAIN OR DISCOMFORT @ THIS TIME. SAFETY MEASURES IN PLACE .BED ALARM ON. WILL CONTINUE TO MONITOR. RT AT BEDSIDE,WILL DO COOLER AEROSOL
[2018-08-23 08:00] VITALS: BP 131/64
--- NOTE | 2018-08-23 08:25 | NUR ---
DEPARTMENT STORE SALESPERSON NOTE RT AT BEDSIDE .COOLER AEROSOL DONE ON FIO2 40% 10L ,SAT 98% .DR AGUDELO AT BEDSIDE WILL AWAIT ABG RESULT
[2018-08-23] MEDS: FINASTERIDE (5 MG) 5 MG TABLET GT SCH (08:52)
[2018-08-23] MEDS: MULTIVITAMINS,THERAGRAN 1 UDTAB TABLET GT SCH (08:52)
[2018-08-23] MEDS: ACIDOPHILUS/BULGARICUS 1 EACH TAB.CHEW GT SCH (08:52)
[2018-08-23] MEDS: PANTOPRAZOLE 40 MG VIAL IV SCH (08:52)
[2018-08-23] MEDS: CHLORHEXIDINE GLUCONATE 15 ML UDC MM SCH ×2 (08:52→21:11)
[2018-08-23] MEDS: TAMSULOSIN 0.4 MG CAP.SR.24H PO SCH (08:52)
[2018-08-23] MEDS: LACOSAMIDE ORAL SOLN 50 MG/5 ML UDC GT SCH ×2 (08:52→21:11)
[2018-08-23] MEDS: ASCORBIC ACID 500 MG TABLET GT SCH (08:52)
[2018-08-23] MEDS: DORZOLAMIDE OPTH 2% 10 ML BOTTLE EACHEYE SCH ×3 (08:53→16:45)
[2018-08-23] MEDS: Z GUARD REMEDY 2 OZ OINT TP SCH ×2 (08:53→21:11)
[2018-08-23] MEDS: VITAMINS A AND D 56.7 GM TUBE TP SCH (08:54)
[2018-08-23] MEDS: NEPRO 1,000 ML BOTTLE GT PRN (09:00)
--- NOTE | 2018-08-23 09:29 | NUR ---
INSTRUCTOR OF SOCIOLOGY NOTE DR PATEL CEMETERY WORKER SEEN PATIENT AWARE NA 152. WITH ORDER TO GET UA SPECIMEN, WILL F\U
[2018-08-23 10:30] LABS: BASOPHILS % (AUTO) 0.3 % (0.0-2.0); EOSINOPHILS % (AUTO) 2.7 % (0.0-6.0); HEMATOCRIT 26 % (39-51); LYMPHOCYTES % (AUTO) 13.2 % (20.0-44.0); MEAN CORPUSCULAR HGB CONC 31 g/dl (31.0-36.0); MEAN CORPUSCULAR VOLUME 92 fL (80-96); MONOCYTES # (AUTO) 0.8 /CMM (0.1-1.30); MONOCYTES % (AUTO) 10.3 % (2.0-12.0); NEUTROPHILS # (AUTO) 5.4 /CMM (1.8-8.9); NEUTROPHILS % (AUTO) 73.5 % (43.0-81.0); PLATELET COUNT (AUTO) 91 /CMM (150-450); RED BLOOD CELL COUNT(AUTO) 2.84 MIL/uL (4.5-6.0); WHITE BLOOD COUNT (AUTO) 7.4 K/uL (4.3-11.0)
--- NOTE | 2018-08-23 10:51 | NUR ---
BRIM POUNCER MACHINE OPERATOR NOTE SEEN BY DR MONIQUE RN CARPET FINISHING SUPERVISOR NEUROLOGIST ,ALSO UA COLLECTED ORDERED, ABG DONE BY RT ORDERED
[2018-08-23 10:52] LABS: ABG BASE EXCESS 6.5 mmol/L; ABG OXYGEN SATURATION 96.2 % (92.0-98.5); ABG PCO2 49.2 mmHg (35.0-45.0); ABG PH 7.427 (7.350-7.450); ABG PO2 89.5 mmHg (75.0-100.0); AaDO2 139.1 mmHg; COHb 1.3 % (0.5-1.5); MetHb 0.5 % (0.0-1.5); O2Hb 94.5 % (94.0-97.0); SITE, ABG Right Radial; VENT MODE, BG T-PIECE
--- NOTE | 2018-08-23 11:14 | NUR ---
SIGN LANGUAGE INTERPRETER NOTE ABG RESULT REPORTED TO DR AGUDELO ALSO NOTIFIED THAT NOTED BLEEDING FROM TRACH ,NO NEW ORDER GIVEN AT THIS TIME ,WILL CONT TO MONITOR CLOSELY
[2018-08-23 12:00] VITALS: BP 139/88
--- NOTE | 2018-08-23 15:00 | NUR ---
TYPESETTING SUPERVISOR NOTE REPOSITION DONE ALL NEEDS ATTENDED ,SON AT BEDSIDE, TRACH CARE DONE
[2018-08-23 16:00] VITALS: BP 146/88
--- NOTE | 2018-08-23 16:16 | NUR ---
PLASTERER JOURNEYMAN NOTE KEN RN SEWING MACHINES SALESPERSON AT BEDSIDE AWARE THAT TRACH WITH BLEEDING NO NEW ORDER GIVEN AT THI TIME
[2018-08-23 17:33] LABS: APPEARANCE,URINE SL CLOUDY (CLEAR); BILIRUBIN,URINE NEGATIVE (NEGATIVE); BLOOD, URINE 1+ Ery/uL (NEGATIVE); COLOR,URINE YELLOW (YELLOW); KETONES,URINE NEGATIVE (NEGATIVE); LEUKOCYTE ESTERASE ,URINE NEGATIVE (NEGATIVE); NITRITE, URINE NEGATIVE (NEGATIVE); PH,URINE 6.5 (5.0-8.0); PROTEIN,URINE 1+ mg/dl (NEGATIVE); UGLUCOSE NEGATIVE (NEGATIVE); UROBILINOGEN,URINE 0.2 EU/dL (0.2)
[2018-08-23 17:49] LABS: BACTERIA,URINE None seen /HPF (None Seen); SQUAMOUS EPITHELIAL CELL,UR Rare /HPF (None Seen)
--- NOTE | 2018-08-23 18:23 | NUR ---
DATA SECURITY ADMINISTRATOR NOTE KEEP CLEAN DRY , ALL NEEDS ATTENDED ,WITH G TUBE FEEDING ORDERED KEEP HOB ELEVATED AT ALL TIME, WITH TRACH TO COOLER ADISOL FIO2 40% ,SAT 100% ,WILL CONT TO MONITOR CLOSELY
[2018-08-23 18:47] LABS: CREATININE, URINE 46.5 MG/DL (30.0-125.0); URINE TOTAL PROTEIN 72.8 mg/dL (0-11.9)
[2018-08-23 18:59] LABS: EOSINOPHIL,URINE Rare
--- NOTE | 2018-08-23 19:50 | NUR ---
ASE CERTIFIED TECHNICIAN OPENING NOTES REPORT RECEIVED FROM SULMA NOVOA. PATIENT OBTUNDED BUT RESPONSIVE TO VERBAL & TACTILE STIMULI. BREATHING EVEN & UNLABORED W/ TRACH INTACT & TOLERATING CPAP SETTINGS. NO S/S OF RESPIRATORY DISTRESS NOTED. ON TELE W/ SINUS RHYTHM, HR 96. RIGHT & LEFT HAND IV #20 INTACT & PATENT W/ DRESSING CDI, SALINE LOCKED. G-TUBE PATENT & FLUSHING WELL, GTF NEPRO RUNNING @ 50 ML/HR. NO RESIDUAL NOTED. VÁSQUEZ CATH DRAINING YELLOW URINE. NO S/S OF PAIN OR DISCOMFORT @ THIS TIME. SAFETY MEASURES IN PLACE W/ SIDE RAILS UP & BED ALARM ON. SON @ BEDSIDE. WILL CONTINUE TO MONITOR.
[2018-08-23 20:00] VITALS: BP 150/89
[2018-08-23] MEDS: LATANOPROST EYE DROP 0.005% 2.5 ML BOTTLE EACHEYE SCH (21:11)
[2018-08-24] VITALS (7 sets, daily range): BP systolic 117–156; BP diastolic 67–88
--- NOTE | 2018-08-24 04:23 | NUR ---
RN NOTES REPORT GIVEN TO KASIA NOVOA FOR ERNST.
--- NOTE | 2018-08-24 04:30 | NUR ---
RECEIVED REPORT FROM BRIGHT GIL FOR ERNST
[2018-08-24] MEDS: METOCLOPRAMIDE HCL 10 MG/10 ML UDC GT SCH ×3 (05:26→21:31)
[2018-08-24] MEDS: SIMETHICONE 80 MG TAB.CHEW GT SCH ×3 (05:26→17:46)
[2018-08-24] MEDS: PROSOURCE / PROSTAT (PYXIS) 30 ML UDC GT SCH ×3 (05:26→21:33)
[2018-08-24] MEDS: INSULIN REGULAR, HUMAN 100 UNIT/ML 3 ML VIAL SQ PRN ×3 (05:36→17:47)
[2018-08-24] MEDS: BLOOD SUGAR DIAGNOSTIC 1 EACH STRIP IN SCH ×3 (05:53→17:46)
--- NOTE | 2018-08-24 06:07 | NUR ---
PIG STICKER CLOSING NOTES PATIENT REMAINS IN BED, OBTUNDED BUT RESPONSIVE TO NAME CALL AND TACTILE STIMULI. BREATHING EVEN AND UNLABORED WITH TRACH IN PLACE, TOLERATING CPAP SETTINGS. NO SOB NOTED. IN NO APPARENT DISTRESS AT THE MOMENT. GLUCOSE AT 168. ON TELE WITH SINUS RHYTHM, HR 76. IV ACCESS ON THE R&L HANDS #20 G SL PATENT AND FLUSHING. G-TUBE PATENT & FLUSHING WELL, GT FEEDING NEPRO @ 50 ML/HR. NO RESIDUAL NOTED. VÁSQUEZ IN PLACE, DRAINING YELLOW URINE. SAFETY MEASURES IN PLACE BED IN LOCKED POSITION WITH SIDE RAILS UP, BED ALARM ON WILL ENDORSE TO DAY NURSE FOR ERNST.
[2018-08-24 06:42] LABS: CALCIUM, SERUM 8.6 mg/dL (8.5-10.1); CARBON DIOXIDE 32 mmol/L (21-32); CHLORIDE 112 mmol/L (98-107); CREATININE 1.7 mg/dL (0.6-1.3); GLUCOSE 196 mg/dL (74-106); POTASSIUM 3.5 mmol/L (3.5-5.1); SODIUM SERUM 152 mmol/L (136-145); UREA NITROGEN, BLOOD 68 mg/dL (7-18)
--- NOTE | 2018-08-24 07:30 | NUR ---
STUDENT ASSISTANT OPENING NOTES REPORT RECEIVED FROM PM NURSE . PATIENT OBTUNDED BUT RESPONSIVE TO TACTILE STIMULI. BREATHING EVEN & UNLABORED W/ TRACH.ON COOL AEROSOL 40%.NO S/S OF RESPIRATORY DISTRESS NOTED. ON TELEMONITOR SINUS RHYTHM, HR 84. RIGHT & LEFT HAND IV #20 INTACT & PATENT W/ DRESSING CDI, SALINE LOCKED. G-TUBE PATENT & FLUSHING WELL, GTF NEPRO RUNNING @ 50 ML/HR. NO RESIDUAL NOTED. VÁSQUEZ CATH DRAINING YELLOW URINE. NO S/S OF PAIN OR DISCOMFORT @ THIS TIME. SAFETY MEASURES IN PLACE W/ SIDE RAILS UP & BED ALARM ON. WILL CONTINUE TO MONITOR.
[2018-08-24] MEDS: ACIDOPHILUS/BULGARICUS 1 EACH TAB.CHEW GT SCH (08:31)
[2018-08-24] MEDS: TAMSULOSIN 0.4 MG CAP.SR.24H PO SCH (08:31)
[2018-08-24] MEDS: CHLORHEXIDINE GLUCONATE 15 ML UDC MM SCH ×2 (08:31→21:30)
[2018-08-24] MEDS: PANTOPRAZOLE 40 MG VIAL IV SCH (08:31)
[2018-08-24] MEDS: FINASTERIDE (5 MG) 5 MG TABLET GT SCH (08:31)
[2018-08-24] MEDS: LACOSAMIDE ORAL SOLN 50 MG/5 ML UDC GT SCH ×2 (08:31→21:31)
[2018-08-24] MEDS: MULTIVITAMINS,THERAGRAN 1 UDTAB TABLET GT SCH (08:31)
[2018-08-24] MEDS: ASCORBIC ACID 500 MG TABLET GT SCH (08:31)
[2018-08-24] MEDS: DORZOLAMIDE OPTH 2% 10 ML BOTTLE EACHEYE SCH ×3 (08:33→17:48)
[2018-08-24] MEDS: Z GUARD REMEDY 2 OZ OINT TP SCH ×2 (08:33→21:32)
[2018-08-24] MEDS: VITAMINS A AND D 56.7 GM TUBE TP SCH (08:33)
--- NOTE | 2018-08-24 09:22 | NUR ---
INVESTMENT ACCOUNTING CLERK NOTE PATIENT NOTED WITH INCREASED WORK OF BREATHING, USING ACCESSORY MUSCLES WITH RR OF 28-32 WITH SATURATION OF 98% ON COOL AEROSOL 40%.STAT ABG ORDERED.RT MADE AWARE.WILL CONTINUE TO MONITOR.
[2018-08-24 09:31] LABS: ABG BASE EXCESS 5.9 mmol/L; ABG OXYGEN SATURATION 92.6 % (92.0-98.5); ABG PCO2 48.8 mmHg (35.0-45.0); ABG PH 7.422 (7.350-7.450); ABG PO2 67.9 mmHg (75.0-100.0); AaDO2 161.2 mmHg; COHb 1.1 % (0.5-1.5); MetHb 0.5 % (0.0-1.5); O2Hb 91.1 % (94.0-97.0); SITE, ABG Right Radial; VENT MODE, BG TPIECE 40%
[2018-08-24] MEDS: IPRATROPIUM NEB FS 0.5 MG/2.5 ML AMPUL.NEB IH PRN ×2 (09:41→14:38)
[2018-08-24] MEDS: NEPRO 1,000 ML BOTTLE GT PRN (12:43)
[2018-08-24] MEDS: HYDROCODONE/APAP 5/325MG 1 EACH TABLET GT PRN ×2 (12:43→21:30)
--- NOTE | 2018-08-24 13:00 | NUR ---
IT CONSULTING MANAGER NOTES SEEN BY UPDATED ABOUT PATIENT CONDITION WITH LABS,WITH ELEVATED BUN CREATININE.NOTIFIED THAT PATIENT TACHYPNEIC.WITH NORMAL O2 SAT.HE SAID HE WILL CHECK PATIENT.GOT NEW ORDER FOR F/U LABS.WILL CONTINUE TO MONITOR.
--- NOTE | 2018-08-24 18:54 | NUR ---
TIMBER KILLER CLOSING NOTES PATIENT OBTUNDED BUT RESPONSIVE TO TACTILE STIMULI. BREATHING EVEN & UNLABORED W/ TRACH.ON COOL AEROSOL 40%.NO S/S OF RESPIRATORY DISTRESS NOTED.RR OF 20. ON TELEMONITOR SINUS RHYTHM, HR 71. RIGHT & LEFT HAND IV #20 INTACT & PATENT W/ DRESSING CDI, SALINE LOCKED. G-TUBE PATENT & FLUSHING WELL, GTF NEPRO RUNNING @ 50 ML/HR. NO RESIDUAL NOTED. VÁSQUEZ CATH DRAINING YELLOW URINE. NO S/S OF PAIN OR DISCOMFORT @ THIS TIME. SAFETY MEASURES IN PLACE W/ SIDE RAILS UP & BED ALARM ON. WILL ENDORSE TO PM NURSE FOR ERNST.
--- NOTE | 2018-08-24 19:30 | NUR ---
SHOBHA RN OPENING NOTES BEDSIDE REPORT RECEIVED FROM AM NURSE . PATIENT OBTUNDED BUT RESPONSIVE TO TACTILE STIMULI. BREATHING EVEN & UNLABORED W/ TRACH.ON COOL AEROSOL 40%.NO S/S OF RESPIRATORY DISTRESS NOTED AT THIS TIME. ON TELEMONITOR SINUS RHYTHM, HR 74. RIGHT & LEFT HAND IV #20 INTACT & PATENT W/ DRESSING CDI, SALINE LOCKED. G-TUBE PATENT & FLUSHING WELL, GTF NEPRO RUNNING @ 50 ML/HR. NO RESIDUAL NOTED. VÁSQUEZ CATH DRAINING YELLOW URINE. NO S/S OF PAIN OR DISCOMFORT @ THIS TIME. SAFETY MEASURES IN PLACE W/ SIDE RAILS UP & BED ALARM ON. WILL CONTINUE TO MONITOR.
[2018-08-24] MEDS: LATANOPROST EYE DROP 0.005% 2.5 ML BOTTLE EACHEYE SCH (21:34)
[2018-08-25] VITALS: BP 136/68
[2018-08-25] MEDS: SIMETHICONE 80 MG TAB.CHEW GT SCH ×5 (01:08→23:32)
[2018-08-25] MEDS: BLOOD SUGAR DIAGNOSTIC 1 EACH STRIP IN SCH ×5 (01:09→23:34)
[2018-08-25] MEDS: INSULIN REGULAR, HUMAN 100 UNIT/ML 3 ML VIAL SQ PRN ×5 (01:16→23:34)
[2018-08-25 04:00] VITALS: BP 148/72
[2018-08-25] MEDS: METOCLOPRAMIDE HCL 10 MG/10 ML UDC GT SCH ×2 (05:25→12:35)
[2018-08-25] MEDS: PROSOURCE / PROSTAT (PYXIS) 30 ML UDC GT SCH ×3 (05:26→21:34)
[2018-08-25 07:49] LABS: CALCIUM, SERUM 8.8 mg/dL (8.5-10.1); CARBON DIOXIDE 31 mmol/L (21-32); CHLORIDE 113 mmol/L (98-107); CREATININE 1.5 mg/dL (0.6-1.3); GLUCOSE 170 mg/dL (74-106); POTASSIUM 3.5 mmol/L (3.5-5.1); SODIUM SERUM 152 mmol/L (136-145); UREA NITROGEN, BLOOD 68 mg/dL (7-18)
--- NOTE | 2018-08-25 07:51 | NUR ---
BIOMETRICS SPECIALIST OPENING NOTES REPORT RECEIVED FROM PM NURSE . PATIENT OBTUNDED BUT RESPONSIVE TO TACTILE STIMULI. BREATHING EVEN & UNLABORED W/ TRACH.ON COOL AEROSOL 40%.NO S/S OF RESPIRATORY DISTRESS NOTED. ON TELEMONITOR SINUS RHYTHM, HR 105. RIGHT & LEFT HAND IV #20 INTACT & PATENT W/ DRESSING CDI, SALINE LOCKED. G-TUBE PATENT & FLUSHING WELL, GTF NEPRO RUNNING @ 50 ML/HR. VÁSQUEZ CATH DRAINING YELLOW URINE. NO S/S OF PAIN OR DISCOMFORT @ THIS TIME. SAFETY MEASURES IN PLACE W/ SIDE RAILS UP & BED ALARM ON. WILL CONTINUE TO MONITOR.
[2018-08-25 08:00] VITALS: BP 140/49
[2018-08-25] MEDS: MULTIVITAMINS,THERAGRAN 1 UDTAB TABLET GT SCH (08:23)
[2018-08-25] MEDS: ASCORBIC ACID 500 MG TABLET GT SCH (08:23)
[2018-08-25] MEDS: TAMSULOSIN 0.4 MG CAP.SR.24H PO SCH (08:23)
[2018-08-25] MEDS: LACOSAMIDE ORAL SOLN 50 MG/5 ML UDC GT SCH ×2 (08:23→21:32)
[2018-08-25] MEDS: FINASTERIDE (5 MG) 5 MG TABLET GT SCH (08:23)
[2018-08-25] MEDS: PANTOPRAZOLE 40 MG VIAL IV SCH (08:23)
[2018-08-25] MEDS: CHLORHEXIDINE GLUCONATE 15 ML UDC MM SCH ×2 (08:23→21:32)
[2018-08-25] MEDS: ACIDOPHILUS/BULGARICUS 1 EACH TAB.CHEW GT SCH (08:24)
[2018-08-25] MEDS: Z GUARD REMEDY 2 OZ OINT TP SCH ×2 (08:25→21:44)
[2018-08-25] MEDS: VITAMINS A AND D 56.7 GM TUBE TP SCH (08:25)
[2018-08-25] MEDS: DORZOLAMIDE OPTH 2% 10 ML BOTTLE EACHEYE SCH ×3 (08:25→17:27)
[2018-08-25 16:00] VITALS: BP 148/83
--- NOTE | 2018-08-25 16:14 | NUR ---
MS RN NOTE PATIENT ABDOMEN IS DISTENDED AND HARD TO TOUCH. MADE AWARE.GOT NEW ORDER FOR GI CONSULT WITH MARGARITA.OCCUPATIONAL THERAPY AIDE MARGARITA MADE AWARE ABOUT NEW CONSULT.LEFT MESSAGE.
[2018-08-25] MEDS ORDERED: MAG HYDROX/AL HYDROX/SIMETH 30 ML UDC PO PRN (17:00)
[2018-08-25] MEDS: HYDROCODONE/APAP 5/325MG 1 EACH TABLET GT PRN (17:24)
[2018-08-25] MEDS: IV D5/0.45 NACL 1,000 ML IV PRN (18:50)
--- NOTE | 2018-08-25 18:51 | NUR ---
MS RN CLOSING NOTES .RELAYED KUB RESULT TO ELECTRIC TRACK SWITCH MAINTAINER MARGARITA.GOT NEW ORDERS TO CHANGE REGLAN TO IV,GT INTERMITTENT SUCTION,IVF.PATIENT OBTUNDED BUT RESPONSIVE TO TACTILE STIMULI. BREATHING EVEN & UNLABORED W/ TRACH.ON COOL AEROSOL 40%.NO S/S OF RESPIRATORY DISTRESS NOTED.RR OF 18.RIGHT & LEFT HAND IV #20 INTACT & PATENT W/ DRESSING CDI,WITH D5 1/2 NS @75CC/HR ONGOING. G-TUBE WITH INTERMITTENT LOW SUCTION. VÁSQUEZ CATH DRAINING YELLOW URINE. NO S/S OF PAIN OR DISCOMFORT @ THIS TIME. SAFETY MEASURES IN PLACE W/ SIDE RAILS UP & BED ALARM ON. WILL ENDORSE TO PM NURSE FOR ERNST.
--- NOTE | 2018-08-25 20:56 | NUR ---
RN MS INITIAL NOTE PATIENT OBTUNDED BUT RESPONSIVE TO TACTILE STIMULI. BREATHING EVEN & UNLABORED W/ TRACH.ON COOL AEROSOL 40%.NO S/S OF RESPIRATORY DISTRESS NOTED.. RIGHT & LEFT HAND IV #20 INTACT & PATENT W/ DRESSING CDI, SALINE LOCKED. G-TUBE PATENT & FLUSHING WELL, GTF ON HOLD, CONNECTED TO INTERMENT SUCTION. VÁSQUEZ CATH DRAINING YELLOW URINE. NO S/S OF PAIN OR DISCOMFORT @ THIS TIME. SAFETY MEASURES IN PLACE W/ SIDE RAILS UP & BED ALARM ON. WILL CONTINUE TO MONITOR.
[2018-08-25] MEDS: METOCLOPRAMIDE HCL 10 MG/2 ML VIAL IV SCH (21:34)
[2018-08-25] MEDS: LATANOPROST EYE DROP 0.005% 2.5 ML BOTTLE EACHEYE SCH (21:44)
--- NOTE | 2018-08-25 22:02 | NUR ---
RECEIVED PT TRACHED SHLY 6 ON COOL AEROSOL. NO RESP DISTRESS. SX'D FOR SML AMT OF THIN WHITE SECRETIONS. WILL CONTINUE TO MONITOR. Addendum: 08/25/18 at 2203 by DAYSI WOOD RT Amended: Links added.
[2018-08-26] VITALS: BP 149/72
[2018-08-26] MEDS: METOCLOPRAMIDE HCL 10 MG/2 ML VIAL IV SCH ×4 (02:34→20:03)
[2018-08-26] MEDS: SIMETHICONE 80 MG TAB.CHEW GT SCH ×3 (05:41→17:03)
[2018-08-26] MEDS: PROSOURCE / PROSTAT (PYXIS) 30 ML UDC GT SCH ×3 (05:41→20:06)
[2018-08-26] MEDS: BLOOD SUGAR DIAGNOSTIC 1 EACH STRIP IN SCH ×3 (05:41→17:03)
--- NOTE | 2018-08-26 06:30 | NUR ---
RN MS CLOSING NOTE PATIENT OBTUNDED BUT RESPONSIVE TO TACTILE STIMULI. BREATHING EVEN & UNLABORED W/ TRACH.ON COOL AEROSOL 40%.NO S/S OF RESPIRATORY DISTRESS NOTED.. RIGHT & LEFT HAND IV #20 INTACT & PATENT W/ DRESSING CDI, SALINE LOCKED. G-TUBE PATENT & FLUSHING WELL, GTF ON HOLD, CONNECTED TO INTERMENT SUCTION. GT FLUSH Q4H 200CC, VÁSQUEZ CATH DRAINING YELLOW URINE. NO S/S OF PAIN OR DISCOMFORT @ THIS TIME. SAFETY MEASURES IN PLACE W/ SIDE RAILS UP & BED ALARM ON. WILL CONTINUE TO MONITOR.
[2018-08-26 07:39] LABS: CALCIUM, SERUM 8.1 mg/dL (8.5-10.1); CARBON DIOXIDE 31 mmol/L (21-32); CHLORIDE 113 mmol/L (98-107); CREATININE 1.4 mg/dL (0.6-1.3); GLUCOSE 156 mg/dL (74-106); POTASSIUM 3.4 mmol/L (3.5-5.1); SODIUM SERUM 152 mmol/L (136-145); UREA NITROGEN, BLOOD 63 mg/dL (7-18)
[2018-08-26 08:00] VITALS: BP 134/73
--- NOTE | 2018-08-26 08:00 | NUR ---
MS RN NOTES PATIENT IN BED RESTING NO SOB OR ACUTE DISTRESS NOTED. PATIENT ON TRACH WITH 8 LITERS OF O2. PATIENT OBTUNDED. WITH PERIPHERAL IVS INTACT PATENT. BED IN LOW LOCKED POSITION . WILL CONTINUE TO MONITOR.
[2018-08-26] MEDS: PANTOPRAZOLE 40 MG VIAL IV SCH (09:00)
[2018-08-26] MEDS: CHLORHEXIDINE GLUCONATE 15 ML UDC MM SCH ×2 (09:00→20:04)
[2018-08-26] MEDS: LACOSAMIDE ORAL SOLN 50 MG/5 ML UDC GT SCH ×2 (09:00→20:04)
[2018-08-26] MEDS: ASCORBIC ACID 500 MG TABLET GT SCH (09:00)
[2018-08-26] MEDS: FINASTERIDE (5 MG) 5 MG TABLET GT SCH (09:00)
[2018-08-26] MEDS: MULTIVITAMINS,THERAGRAN 1 UDTAB TABLET GT SCH (09:00)
[2018-08-26] MEDS: TAMSULOSIN 0.4 MG CAP.SR.24H PO SCH (09:00)
[2018-08-26] MEDS: ACIDOPHILUS/BULGARICUS 1 EACH TAB.CHEW GT SCH (09:00)
[2018-08-26] MEDS: VITAMINS A AND D 56.7 GM TUBE TP SCH (09:01)
[2018-08-26] MEDS: DORZOLAMIDE OPTH 2% 10 ML BOTTLE EACHEYE SCH ×3 (09:01→17:08)
[2018-08-26] MEDS: IV D5/0.45 NACL 1,000 ML IV PRN (09:02)
[2018-08-26] MEDS: Z GUARD REMEDY 2 OZ OINT TP SCH ×2 (09:02→21:42)
[2018-08-26] MEDS ORDERED: POTASSIUM CHLORIDE 20 MEQ POWDER PACKET NG SCH (10:00)
[2018-08-26] MEDS: INSULIN REGULAR, HUMAN 100 UNIT/ML 3 ML VIAL SQ PRN ×2 (11:32→17:06)
[2018-08-26] MEDS: POTASSIUM CL. PREMIX PERIPHER. 50 ML IV SCH ×2 (11:38→12:45)
[2018-08-26 16:00] VITALS: BP 139/81
--- NOTE | 2018-08-26 16:36 | NUR ---
MS RN NOTES PATIENT REFUSED BED BATH AND TURNING AND REPOSITIONING EVERY TWO HOURS DESPITE EXPLANATION OF RISKS AND BENEFITS.
[2018-08-26] MEDS: NEPRO 1,000 ML BOTTLE GT PRN (16:49)
--- NOTE | 2018-08-26 18:42 | NUR ---
MS RN NOTES PATIENT IN BED RESTING NO SOB OR ACUTE DISTRESS NOTED. PATIENT WITH TRACH ON 8L OF OXYGEN. ALL DUE MEDICATIONS ADMINISTERED. ALL NEEDS MET. WILL ENDORSE TO PM SHIFT ERNST.
--- NOTE | 2018-08-26 19:30 | NUR ---
MS RN OPENING NOTE PATIENT RECEIVED FROM DAY IN BED SLEEPING. PATIENT IS OBTUNDED. SON IS AT BEDSIDE. PATIENT IS ON GTUBE FEEDING 20 MLS/HR. GOAL IS 50. PATIENT PATIENT HAS NO S/S OF DISCOMFORT, OR DISTRESS. PATIENT HAS NO S/S OF SOB/. PATIENT IS STABLE AT THIS TIME, CALL LIGHT AT BESIDE, PATIENT'S SON INSTRUCTED TO USE IT WHENEVER THE PATIENTS NEEDS TO. BED IN LOWEST LOCKED POSITION, BED IN SEMI FOWLERS. RN WILL CONTINUE TO MONITOR.
--- NOTE | 2018-08-26 20:55 | NUR ---
MS RN NOTE PATIENT BATHED, TURNED, REPOSITIONED, SUCTIONED, AND LINENS COMPLETELY CHANGED. RT NOW AT BEDSIDE FOR BREATHING TREATMENTS.
[2018-08-26] MEDS: LATANOPROST EYE DROP 0.005% 2.5 ML BOTTLE EACHEYE SCH (21:42)
--- NOTE | 2018-08-26 22:46 | NUR ---
MS RN NOTE PATIENT GIVEN ORAL, TURNED AND REPOSITIONED, RESIDUAL CHECKED. NO RESIDUAL PRESENT, INCREASED FEEDING RATE TO 30 ML.
[2018-08-27] VITALS: BP 134/73
[2018-08-27] MEDS: SIMETHICONE 80 MG TAB.CHEW GT SCH ×4 (00:15→17:22)
[2018-08-27] MEDS: BLOOD SUGAR DIAGNOSTIC 1 EACH STRIP IN SCH ×4 (00:16→17:22)
--- NOTE | 2018-08-27 00:30 | NUR ---
MS RN NOTE PATIENT TURNED AND SUCTIONED, RESIDUAL CHECKED NO RESIDUAL PRESENT. RN WILL CONTINUE TO MONITOR.
[2018-08-27] MEDS: IV D5/0.45 NACL 1,000 ML IV PRN ×3 (01:37→23:33)
[2018-08-27] MEDS: METOCLOPRAMIDE HCL 10 MG/2 ML VIAL IV SCH ×4 (01:37→19:16)
[2018-08-27] MEDS: INSULIN REGULAR, HUMAN 100 UNIT/ML 3 ML VIAL SQ PRN ×4 (02:08→11:38)
--- NOTE | 2018-08-27 02:15 | NUR ---
MS RN NOTE PATIENT TURNED AND REPOSITIONED, PT SUCTIONED, NO S/S OF DISTRESS
--- NOTE | 2018-08-27 04:25 | NUR ---
MS RN NOTE PATIENT TURNED AND REPOSITIONED, NO S/S OF DISTRESS, IV PATENT
[2018-08-27] MEDS: PROSOURCE / PROSTAT (PYXIS) 30 ML UDC GT SCH ×3 (04:45→20:28)
--- NOTE | 2018-08-27 06:23 | NUR ---
MS RN NOTE PATIENT TOLERATED THE NIGHT WELL, NO ACUTE CHANGES. PATIENT SATURATION 98% ON COOL AEROSOL. VS STABLE, ALL NEEDS ATTENDED. BED IN LOWEST LOCKED POSITION, SIDE RAILS UP X 2, NO S/S OF DISCOMFORT. RN WILL ENDORSE POC TO DAY SHIFT FOR ERNST.
[2018-08-27 06:41] LABS: CALCIUM, SERUM 8.7 mg/dL (8.5-10.1); CARBON DIOXIDE 30 mmol/L (21-32); CHLORIDE 113 mmol/L (98-107); CREATININE 1.3 mg/dL (0.6-1.3); GLUCOSE 208 mg/dL (74-106); POTASSIUM 3.7 mmol/L (3.5-5.1); SODIUM SERUM 151 mmol/L (136-145); UREA NITROGEN, BLOOD 53 mg/dL (7-18)
--- NOTE | 2018-08-27 07:19 | NUR ---
MS/RN Patient received Patient received from landfill grader. Shiley #6 connected to 40% FIO2, saturating above 94%. Appears in no respiratory distress or discomfort at this time. IVF infusing at 100ml/hr via right hand 20g, no signs of any infiltration seen. Tolerating GT feeding at 30ml/hr, with goal rate of 50ml. Safety measures in place, will continue to monitor and ensure safety.
--- NOTE | 2018-08-27 07:56 | NUR ---
MS/RN Blood sugar Blood sugar 184, coverage administered as per sliding scale.
[2018-08-27 08:00] VITALS: BP 131/58
[2018-08-27] MEDS: ASCORBIC ACID 500 MG TABLET GT SCH (08:30)
[2018-08-27] MEDS: PANTOPRAZOLE 40 MG VIAL IV SCH (08:30)
[2018-08-27] MEDS: TAMSULOSIN 0.4 MG CAP.SR.24H PO SCH (08:30)
[2018-08-27] MEDS: FINASTERIDE (5 MG) 5 MG TABLET GT SCH (08:30)
[2018-08-27] MEDS: MULTIVITAMINS,THERAGRAN 1 UDTAB TABLET GT SCH (08:30)
[2018-08-27] MEDS: ACIDOPHILUS/BULGARICUS 1 EACH TAB.CHEW GT SCH (08:31)
[2018-08-27] MEDS: DORZOLAMIDE OPTH 2% 10 ML BOTTLE EACHEYE SCH ×3 (08:32→17:22)
[2018-08-27] MEDS: Z GUARD REMEDY 2 OZ OINT TP SCH ×2 (08:33→20:28)
[2018-08-27] MEDS: CHLORHEXIDINE GLUCONATE 15 ML UDC MM SCH ×2 (08:34→20:28)
[2018-08-27] MEDS: LACOSAMIDE ORAL SOLN 50 MG/5 ML UDC GT SCH ×2 (08:35→20:28)
[2018-08-27] MEDS: VITAMINS A AND D 56.7 GM TUBE TP SCH (08:36)
--- NOTE | 2018-08-27 08:40 | NUR ---
RT PT RECEIVED TRACHED ON COOL AEROSOL TOLERATING WELL AT THIS TIME. TRACH CARE DONE AND TRACH TIE CHANGED. NO RESPIRATORY DISTRESS NOTED AT THIS TIME, WILL CONTINUE TO MONITOR. Addendum: 08/27/18 at 1048 by MARCELO KENNEDY RT Amended: Links added.
--- NOTE | 2018-08-27 10:00 | NUR ---
MS/RN S/B Dr Swenson Seen by Dr Swenson - continue to monitor closely off anti-biotics, strict aspiration precautions.
--- NOTE | 2018-08-27 10:15 | NUR ---
MS/RN S/B Dr Ramírez Seen by Dr Ramírez - patient stable from respiratory point to be transferred back to sub acute.
--- NOTE | 2018-08-27 15:24 | NUR ---
MS/RN S/B Dr Castro Seen by Dr Castro - discharge on hold until tomorrow.
[2018-08-27 16:00] VITALS: BP 142/71
--- NOTE | 2018-08-27 19:26 | NUR ---
MS RN NOTE PATIENT RECEIVED IN BED OBTUNDED. NO S/S OF DISTRESS. PATIENT SUCTIONED, BATHED, TURNED AND REPOSITIONED FOR COMFORT. PATIENT INCREASED FEEDING RATE TO 40ML/HR 5 ML OF RESIDUAL. RN WILL CONTINUE TO MONITOR.
[2018-08-27 20:00] VITALS: BP 159/86
--- NOTE | 2018-08-27 20:11 | NUR ---
MS RN NOTE PATIENT HAS ONE BOWEL MOVEMENT, PATIENT GIVEN BED BATH AND COMPLETE LINENS CHANGED. SKIN INTACT. PATIENT TURNED AND REPOSITIONED FOR COMFORT.
--- NOTE | 2018-08-27 22:15 | NUR ---
MS RN NOTE PATIENT TURNED AND REPOSITIONED FOR COMFORT AND SKIN PROTECTION. PATIENT SUCTIONED.
[2018-08-27] MEDS: LATANOPROST EYE DROP 0.005% 2.5 ML BOTTLE EACHEYE SCH (22:25)
[2018-08-28] MEDS: SIMETHICONE 80 MG TAB.CHEW GT SCH ×5 (00:18→23:24)
[2018-08-28] MEDS: BLOOD SUGAR DIAGNOSTIC 1 EACH STRIP IN SCH ×5 (00:18→23:24)
--- NOTE | 2018-08-28 00:30 | NUR ---
MS RN NOTE PATIENT V/S STABLE PT TURNED AND REPOSITIONED.
[2018-08-28] MEDS: INSULIN REGULAR, HUMAN 100 UNIT/ML 3 ML VIAL SQ PRN ×5 (01:58→23:25)
[2018-08-28] MEDS: NEPRO 1,000 ML BOTTLE GT PRN (02:04)
[2018-08-28] MEDS: METOCLOPRAMIDE HCL 10 MG/2 ML VIAL IV SCH ×4 (02:10→20:05)
--- NOTE | 2018-08-28 02:56 | NUR ---
MS RN NOTE PATIENT TTUBE FEEDING INCREASED TO 45, 5 ML RESIDUAL PRESENT, PATIENT TOLERATING FEEDING.
[2018-08-28 04:00] VITALS: BP 153/94
[2018-08-28] MEDS: PROSOURCE / PROSTAT (PYXIS) 30 ML UDC GT SCH ×3 (05:47→20:07)
--- NOTE | 2018-08-28 07:08 | NUR ---
MS RN NOTE NO S/S OF DISTRESS PT TOLERATED NIGHT WELL. PATIENT TURNED AND REPOSITIONED ORDERED. WILL ENDORES TO DAY ERNST/POC.
[2018-08-28 07:14] LABS: CALCIUM, SERUM 8.5 mg/dL (8.5-10.1); CARBON DIOXIDE 28 mmol/L (21-32); CHLORIDE 113 mmol/L (98-107); CREATININE 1.2 mg/dL (0.6-1.3); GLUCOSE 188 mg/dL (74-106); POTASSIUM 3.5 mmol/L (3.5-5.1); SODIUM SERUM 151 mmol/L (136-145); UREA NITROGEN, BLOOD 49 mg/dL (7-18)
--- NOTE | 2018-08-28 07:15 | NUR ---
MS RN NOTES PATIENT IN BED OBTUNDED. NO ACUTE DISTRESS NOTED. BREATHING UNLABORED. IV ACCESS PATENT AND INTACT.GT TUBE FEEDING RUNNING ORDERED. SAFETY MEASURES IN PLACE. CALL LIGHT WITHIN REACH. WILL CONTINUE TO MONITOR ACCORDINGLY.
[2018-08-28 08:00] VITALS: BP 147/95
[2018-08-28] MEDS: ACIDOPHILUS/BULGARICUS 1 EACH TAB.CHEW GT SCH (08:33)
[2018-08-28] MEDS: TAMSULOSIN 0.4 MG CAP.SR.24H PO SCH (08:33)
[2018-08-28] MEDS: FINASTERIDE (5 MG) 5 MG TABLET GT SCH (08:33)
[2018-08-28] MEDS: MULTIVITAMINS,THERAGRAN 1 UDTAB TABLET GT SCH (08:33)
[2018-08-28] MEDS: ASCORBIC ACID 500 MG TABLET GT SCH (08:33)
[2018-08-28] MEDS: LACOSAMIDE ORAL SOLN 50 MG/5 ML UDC GT SCH ×2 (08:33→20:05)
[2018-08-28] MEDS: CHLORHEXIDINE GLUCONATE 15 ML UDC MM SCH ×2 (08:35→20:05)
[2018-08-28] MEDS: Z GUARD REMEDY 2 OZ OINT TP SCH ×2 (08:36→20:07)
[2018-08-28] MEDS: VITAMINS A AND D 56.7 GM TUBE TP SCH (08:36)
[2018-08-28] MEDS: DORZOLAMIDE OPTH 2% 10 ML BOTTLE EACHEYE SCH ×3 (08:37→17:26)
[2018-08-28] MEDS: PANTOPRAZOLE 40 MG VIAL IV SCH (08:37)
[2018-08-28] MEDS: IV D5/0.45 NACL 1,000 ML IV PRN ×2 (09:37→19:58)
[2018-08-28] MEDS: ACETYLCYSTEINE 10% SOLN 400 MG/4 ML VIAL NEB SCH ×3 (13:40→23:40)
[2018-08-28 16:00] VITALS: BP 159/87
--- NOTE | 2018-08-28 19:00 | NUR ---
MS RN NOTES PATIENT IN BED OBTUNDED. NO ACUTE DISTRESS NOTED. BREATHING UNLABORED. IV ACCESS PATENT AND INTACT.GT TUBE FEEDING RUNNING ORDERED.NEEDS ATTENDED AND ANTICIPATED. KEPT CLEAN DRY AND COMFORTABLE. REPOSITIONED EVERY 2 HOURS AND NEEDED.SAFETY MEASURES IN PLACE. CALL LIGHT WITHIN REACH. ENDORSED TO NIGHT NURSE FOR CONTINUITY OF CARE.
[2018-08-28 20:00] VITALS: BP 144/89
[2018-08-28] MEDS: LATANOPROST EYE DROP 0.005% 2.5 ML BOTTLE EACHEYE SCH (21:09)
[2018-08-28] MEDS: IPRATROPIUM NEB FS 0.5 MG/2.5 ML AMPUL.NEB IH PRN (23:40)
[2018-08-28] MEDS: ALBUTEROL FS 2.5 MG/0.5 ML VIAL.NEB NEB PRN (23:40)
[2018-08-29] MEDS: METOCLOPRAMIDE HCL 10 MG/2 ML VIAL IV SCH ×3 (02:46→15:34)
[2018-08-29] MEDS: NEPRO 1,000 ML BOTTLE GT PRN (02:46)
[2018-08-29 04:00] VITALS: BP 147/88
[2018-08-29] MEDS: PROSOURCE / PROSTAT (PYXIS) 30 ML UDC GT SCH ×2 (04:18→12:16)
[2018-08-29] MEDS: SIMETHICONE 80 MG TAB.CHEW GT SCH ×3 (05:24→18:06)
[2018-08-29] MEDS: BLOOD SUGAR DIAGNOSTIC 1 EACH STRIP IN SCH ×3 (05:24→18:06)
[2018-08-29] MEDS: INSULIN REGULAR, HUMAN 100 UNIT/ML 3 ML VIAL SQ PRN ×3 (05:26→18:07)
[2018-08-29 06:30] LABS: BASOPHILS % (AUTO) 0.2 % (0.0-2.0); EOSINOPHILS % (AUTO) 1.6 % (0.0-6.0); HEMATOCRIT 26 % (39-51); LYMPHOCYTES # (AUTO) 0.9 /CMM (0.8-4.8); LYMPHOCYTES % (AUTO) 11.7 % (20.0-44.0); MEAN CORPUSCULAR HGB CONC 31 g/dl (31.0-36.0); MEAN CORPUSCULAR VOLUME 92 fL (80-96); MONOCYTES # (AUTO) 0.6 /CMM (0.1-1.30); MONOCYTES % (AUTO) 7.7 % (2.0-12.0); NEUTROPHILS # (AUTO) 6.3 /CMM (1.8-8.9); NEUTROPHILS % (AUTO) 78.8 % (43.0-81.0); PLATELET COUNT (AUTO) 138 /CMM (150-450); RED BLOOD CELL COUNT(AUTO) 2.82 MIL/uL (4.5-6.0)
[2018-08-29 06:41] LABS: CALCIUM, SERUM 8.3 mg/dL (8.5-10.1); CARBON DIOXIDE 28 mmol/L (21-32); CHLORIDE 109 mmol/L (98-107); CREATININE 1.2 mg/dL (0.6-1.3); GLUCOSE 220 mg/dL (74-106); MAGNESIUM 1.9 mg/dL (1.8-2.4); PHOSPHORUS 2.9 mg/dL (2.5-4.9); POTASSIUM 3.4 mmol/L (3.5-5.1); SODIUM SERUM 146 mmol/L (136-145); UREA NITROGEN, BLOOD 43 mg/dL (7-18)
--- NOTE | 2018-08-29 07:39 | NUR ---
MS RN OPENING NOTE RECEIVED PT IN BED, OBTUNDED. NO ACUTE DISTRESS NOTED AT THIS TIME WITH BREATHING THAT IS EVEN AND UNLABORED. R HAND @20G IV IS INFUSING ORDERED WITHOUT REDNESS OR SWELLING. PT TOLERATING CURRENT G-TUBE FEEDING ORDERED. ASPIRATION PRECAUTIONS MAINTAINED, ALL NEEDS ATTENDED TO. BED IS LOCKED AND IN LOWEST POSITION, SIDE RAILS UP X3, BED ALARM ON, CALL LIGHT WITHIN REACH.
[2018-08-29 08:00] VITALS: BP 156/87
[2018-08-29] MEDS: ACETYLCYSTEINE 10% SOLN 400 MG/4 ML VIAL NEB SCH ×2 (08:01→15:14)
[2018-08-29] MEDS: IPRATROPIUM NEB FS 0.5 MG/2.5 ML AMPUL.NEB IH PRN (08:16)
[2018-08-29] MEDS: ALBUTEROL FS 2.5 MG/0.5 ML VIAL.NEB NEB PRN (08:16)
[2018-08-29] MEDS: TAMSULOSIN 0.4 MG CAP.SR.24H PO SCH (08:50)
[2018-08-29] MEDS: PANTOPRAZOLE 40 MG VIAL IV SCH (08:50)
[2018-08-29] MEDS: LACOSAMIDE ORAL SOLN 50 MG/5 ML UDC GT SCH (08:50)
[2018-08-29] MEDS: MULTIVITAMINS,THERAGRAN 1 UDTAB TABLET GT SCH (08:50)
[2018-08-29] MEDS: CHLORHEXIDINE GLUCONATE 15 ML UDC MM SCH (08:50)
[2018-08-29] MEDS: ACETAMINOPHEN 650 MG/20.3 ML UDC GT PRN ×2 (08:50→20:08)
[2018-08-29] MEDS: FINASTERIDE (5 MG) 5 MG TABLET GT SCH (08:50)
[2018-08-29] MEDS: ACIDOPHILUS/BULGARICUS 1 EACH TAB.CHEW GT SCH (08:51)
[2018-08-29] MEDS: ASCORBIC ACID 500 MG TABLET GT SCH (08:51)
[2018-08-29] MEDS: DORZOLAMIDE OPTH 2% 10 ML BOTTLE EACHEYE SCH ×3 (08:52→18:06)
[2018-08-29] MEDS: Z GUARD REMEDY 2 OZ OINT TP SCH (08:52)
[2018-08-29] MEDS: VITAMINS A AND D 56.7 GM TUBE TP SCH (08:52)
[2018-08-29] MEDS ORDERED: POTASSIUM CHLORIDE 20 MEQ POWDER PACKET GT SCH ×2 (10:00)
[2018-08-29] MEDS: IV D5/0.45 NACL 1,000 ML IV PRN (10:36)
[2018-08-29] MEDS ORDERED: BUMETANIDE INJ 0.25 MG/ML VIAL IV ONE (12:00)
[2018-08-29] MEDS ORDERED: SPIRONOLACTONE 25 MG TABLET PO SCH (12:00)
[2018-08-29 16:00] VITALS: BP 158/91
--- NOTE | 2018-08-29 16:00 | NUR ---
MS CLEANING PORTER STATUS PER CHARGE NURSE HOWARD, THERE IS NO LONGER A BED AVAILABLE ON [facility] SUBACUTE UNIT FOR THE PT, WILL INFORM CM AND PRIMARY DOCTOR.
--- NOTE | 2018-08-29 16:07 | NUR ---
MS RN PAGED EPIC PAGED WAKU WAKU ? FOR DR. CAROLINA TO GIVE STATUS UPDATE ON DISCHARGE
--- NOTE | 2018-08-29 18:28 | NUR ---
MS RN CLOSING NOTE PT IN BED, OBTUNDED. NO ACUTE DISTRESS NOTED AT THIS TIME WITH BREATHING THAT IS EVEN AND UNLABORED. R HAND @20G IV IS SALINE LOCKED WITHOUT REDNESS OR SWELLING. PT TOLERATED CURRENT G-TUBE FEEDING ORDERED. ASPIRATION PRECAUTIONS MAINTAINED. ADLS PROVIDED AND PT TURNED AND REPOSITION Q2H FOR THE DURATION OF THE SHIFT. ALL NEEDS ATTENDED TO. PT IS PENDING TRANSFER BACK TO [facility] SUBACUTE UNIT. BED IS LOCKED AND IN LOWEST POSITION, SIDE RAILS UP X3, BED ALARM ON, CALL LIGHT WITHIN REACH. WILL ENDORSE TO TIRE CORD WEAVER NURSE FOR CONTINUITY OF CARE.
--- NOTE | 2018-08-29 19:30 | NUR ---
MS RN NOTE PT IS GOING TO TRANSFERRED TO SUBACUTE. REPORT GIVEN TO SMA CHARGE NURSE. EXIT CARE DONE BY DAY SHIFT CHARGE NURSE.
--- NOTE | 2018-08-29 20:15 | NUR ---
MS RN NOTE PT TRANSFERRED WITH BED TO SUBACUTE ROOM 276 A, RT WAS AT BED SIDE ON TRANSFERRING THE PT. NO DISTRESS OR DISCOMFORT NOTED.
== END 2018-08-29 20:15 | DRG 871 ==
LOC: ICU 11:14 → TELE-TD 08-19 17:26 → TELE1 08-20 08:58 → MEDSG1 08-25 09:06
PROVIDERS: ADMIT Nurse Practitioner Acute Care; ATTEND Internal Medicine
PROC: 5A1945Z Respiratory Ventilation, 24-96 Consecutive Hours (ICD-10-PCS; principal; 2018-08-18)
DX: A41.9 Sepsis, unspecified organism (principal); E43 Unspecified severe protein-calorie malnutrition; N17.0 Acute kidney failure with tubular necrosis; G92 Toxic encephalopathy; J69.0 Pneumonitis due to inhalation of food and vomit; R53.2 Functional quadriplegia; I13.0 Hypertensive heart and chronic kidney disease with heart failure and stage 1 through stage 4 chronic kidney disease, or unspecified chronic kidney disease; G93.1 Anoxic brain damage, not elsewhere classified; J96.10 Chronic respiratory failure, unspecified whether with hypoxia or hypercapnia; N39.0 Urinary tract infection, site not specified; D68.59 Other primary thrombophilia; E87.0 Hyperosmolality and hypernatremia; J96.11 Chronic respiratory failure with hypoxia; Z99.11 Dependence on respirator [ventilator] status; R40.3 Persistent vegetative state; K56.7 Ileus, unspecified; J90 Pleural effusion, not elsewhere classified; N40.0 Benign prostatic hyperplasia without lower urinary tract symptoms; N18.3 Chronic kidney disease, stage 3 (moderate); K21.9 Gastro-esophageal reflux disease without esophagitis; D69.6 Thrombocytopenia, unspecified; D63.8 Anemia in other chronic diseases classified elsewhere; E78.5 Hyperlipidemia, unspecified; I25.10 Atherosclerotic heart disease of native coronary artery without angina pectoris; Z93.0 Tracheostomy status; Z87.891 Personal history of nicotine dependence; Z86.73 Personal history of transient ischemic attack (TIA), and cerebral infarction without residual deficits; Z93.1 Gastrostomy status; G40.909 Epilepsy, unspecified, not intractable, without status epilepticus; F03.90 Unspecified dementia, unspecified severity, without behavioral disturbance, psychotic disturbance, mood disturbance, and anxiety; H40.9 Unspecified glaucoma; E87.6 Hypokalemia; Z95.0 Presence of cardiac pacemaker; E88.09 Other disorders of plasma-protein metabolism, not elsewhere classified; M62.50 Muscle wasting and atrophy, not elsewhere classified, unspecified site; D50.9 Iron deficiency anemia, unspecified; I50.9 Heart failure, unspecified; J32.9 Chronic sinusitis, unspecified; Z74.01 Bed confinement status; E11.22 Type 2 diabetes mellitus with diabetic chronic kidney disease; B96.4 Proteus (mirabilis) (morganii) as the cause of diseases classified elsewhere
CPT/HCPCS: 31720; 36415; 36600; 70450-TC; 71045-TC; 74018; 80048-TC; 80053-TC; 80202-TC; 81000-TC; 82247-TC; 82248-TC; 82272-TC; 82570-TC; 82803-TC; 82962-TC; 83605-TC; 83735-TC; 84100-TC; 84155-TC; 84300-TC; 85025-TC; 85610-TC; 85730-TC; 87040-TC; 87070-TC; 87081-TC; 87086-TC; 87186-TC; 87400; 93307-TC; 94003-TC; 94640-TC; 94664-TC; 94760-TC; A4216; A6402; A6403; A7526; C9113; G0378; J0696; J1815; J2543; J2765; J3370; J3480; J3490; J7030; J7050; J7060; J8597

== ENCOUNTER 2018-08-28 08:23 | Inpatient (IN) | payer MEDICARE, OTHER ==
[~2018-08-28] VITALS: Ht 177.8 cm; Wt 78.0 kg
[~2018-08-28 08:23] MED LIST changes: +ACID1TAB12 GT; +AMIN30LI25 GT; -AMLO5TAB9 GT; -BETH25TA GT; +BISA10SU11 RC; -BISA10SU8 RC; +CARV6.252 GT; -DOCU50LI GT; -FAMO-131 GT; -FERR300L GT; -GLUC1KIT IM; +HYDR-4076 GT; +HYDR-4384 GT; -INSU100I19 SQ; +LORA2VIA11 IM; -MAGN400O6 GT; -METO25TA20 GT; -MICO15CR9 TP; +MULT-447 GT; -NON-FORMULARY TP; -NUT.237L30 GT; +NUT.237L67 GT; -NYST5ORA BC; +PANT40SU2 GT; -PANT40VI IV; -POLY17PO4 GT; -PRAZ2CAP2 GT; -PRED5DRO16 EACHEYE; +TAMS-12 GT; +VITA56.7 TP; +[UNRECOGNIZED DRUG - CODE] IV; -[UNRECOGNIZED DRUG - CODE] IV; -[UNRECOGNIZED DRUG - CODE] IV
[2018-08-29 21:00] VITALS: BP 148/82
--- NOTE | 2018-08-29 21:00 | NUR ---
PT 77 Y/O MALE ADMITTED FROM [facility],UNDER THE CARE OF .DX,CHRONIC RESPIRATORY FAILURE,TRACH ,HTN,DM TYPE 2,ANEMIA,CKD,CHRONIC ENCEPHALOPATHY.GT PEG #20,TRACH SHILEY 6 CUFF,FIO2 40%.FULL CODE.ON VÁSQUEZ CATH F#16X10 DRAINING WELL.CONTINUE PREVIOUS MEDICATIONS FROM ACUTE.VITAL SIGNS STABLE.SKIN ASSESSMENT COMPLETED.PULSE OXIMETRY ATTACHED.HOB ELEVATED.CALL LIGHT WITHIN REACH ALL THE TIME.SON NOTIFIED THAT PATIENT IS BACK TO SUB ACUTE ROOM 276-1.SPOKE TO LILLIAN FROM [employer] PT INSURANCE IS MEDICARE,THEY NOT SENDING MEDICATIONS ONLY FOR PROFILE.[facility] TO PROVIDE MEDICATIONS.WILL CONTINUE TO MONITOR.
--- NOTE | 2018-08-29 21:11 | NUR ---
NEPHRO STARTED VIA GT TUBE ORDERED AT 50 ML/HR X 20 HOURS INFUSING AND PT TOLERATED WELL NO RESIDUAL
[2018-08-29] MEDS ORDERED: ATORVASTATIN 40 MG TABLET PO SCH (22:00)
[2018-08-29] MEDS ORDERED: ATORVASTATIN 40 MG TABLET PO ONE (23:00)
[2018-08-29] MEDS: BLOOD SUGAR DIAGNOSTIC 1 EACH STRIP IN SCH (23:38)
[2018-08-29] MEDS: INSULIN REGULAR, HUMAN 100 UNIT/ML 10 ML VIAL SQ SCH (23:38)
[2018-08-30] VITALS (7 sets, daily range): BP systolic 144–150; BP diastolic 75–96
[2018-08-30] MEDS ORDERED: INSULIN REGULAR, HUMAN 100 UNIT/ML 10 ML VIAL SQ SCH
[2018-08-30] MEDS: PANTOPRAZOLE 40 MG/PACK PACK GT SCH ×2 (05:12→09:00)
[2018-08-30] MEDS: BLOOD SUGAR DIAGNOSTIC 1 EACH STRIP IN SCH ×3 (06:00→17:30)
[2018-08-30] MEDS: INSULIN REGULAR, HUMAN 100 UNIT/ML 10 ML VIAL SQ SCH ×3 (06:04→17:33)
[2018-08-30] MEDS ORDERED: Z GUARD REMEDY 2 OZ OINT TP SCH (09:00)
--- NOTE | 2018-08-30 09:38 | NUR ---
composite worker called the resident's son Jose Johns ([phone]) to inform him about upcoming IDT meeting on Friday August 31, 2018 from 12:30-1:30PM. He stated that he is currently out of town on a business trip and won't return until Monday evening. He stated however, that he would like to receive a phone call during the meeting. He also stated that he will be in sometime next week to fill out intake paperwork and will check in with the charge nurse.
[2018-08-30] MEDS ORDERED: MAG HYDROX/AL HYDROX/SIMETH 30 ML UDC PO PRN (10:57)
[2018-08-30] MEDS ORDERED: ONDANSETRON HCL/PF 4 MG/2 ML VIAL IVP PRN (10:57)
[2018-08-30] MEDS ORDERED: DEXTROSE 50%-WATER 50 ML DISP.SYRIN IV PRN (10:57)
--- NOTE | 2018-08-30 11:00 | NUR ---
Obtained order from Dr. Lugo to discontinue dyer catheter. Order carried out. Proper alfredo-care provided, will monitor output.
[2018-08-30] MEDS ORDERED: NITROGLYCERIN 30 GM TUBE TP PRN (12:00)
[2018-08-30] MEDS ORDERED: IPRATROPIUM NEB FS 0.5 MG/2.5 ML AMPUL.NEB NEB PRN (12:00)
[2018-08-30] MEDS ORDERED: ALBUTEROL FS 2.5 MG/3 ML VIAL.NEB NEB PRN (12:00)
[2018-08-30] MEDS ORDERED: ONDANSETRON 4 MG TAB.RAPDIS GT PRN (12:00)
[2018-08-30] MEDS: SIMETHICONE 80 MG TAB.CHEW GT SCH ×2 (12:48→17:30)
[2018-08-30] MEDS: DORZOLAMIDE OPTH 2% 10 ML BOTTLE EACHEYE SCH ×2 (12:50→17:28)
[2018-08-30] MEDS: PROSOURCE / PROSTAT (PYXIS) 30 ML UDC GT SCH ×2 (12:50→21:39)
[2018-08-30] MEDS: METOCLOPRAMIDE HCL 10 MG/10 ML UDC GT SCH ×2 (12:50→21:39)
[2018-08-30] MEDS: ACETYLCYSTEINE 10% SOLN 400 MG/4 ML VIAL NEB SCH ×2 (13:34→21:39)
[2018-08-30] MEDS: ACETAMINOPHEN 650 MG/20.3 ML UDC GT PRN (14:35)
[2018-08-30] MEDS: NEPRO 1,000 ML BOTTLE GT PRN (18:44)
--- NOTE | 2018-08-30 19:20 | NUR ---
Pt had 2x urine output today after dyer catheter removal. Proper alfredo-care rendered, hydration provided.
--- NOTE | 2018-08-30 20:30 | NUR ---
SEEN BY BEVERLY UREÑA EVENT DECORATOR AND DESIGNER,WITH NEW ORDER ALBUTEROL ATROVENT Q 6 HRS BRONCHODILATOR.WILL CARRY OUT.
[2018-08-30] MEDS ORDERED: ATORVASTATIN 10 MG TABLET ONE (20:38)
[2018-08-30] MEDS: CHLORHEXIDINE GLUCONATE 15 ML UDC MM SCH (21:39)
[2018-08-30] MEDS: CARVEDILOL 6.25 MG TABLET GT SCH (21:39)
[2018-08-30] MEDS: LACOSAMIDE ORAL SOLN 50 MG/5 ML UDC GT SCH (21:39)
[2018-08-30] MEDS: ATORVASTATIN 40 MG TABLET GT SCH (21:40)
[2018-08-30] MEDS: MINERAL OIL/PETROL OINT 396 GM JAR TP SCH (21:40)
[2018-08-30] MEDS: VITAMINS A AND D 56.7 GM TUBE TP SCH (21:40)
[2018-08-30] MEDS: LATANOPROST EYE DROP 0.005% 2.5 ML BOTTLE EACHEYE SCH (21:40)
[2018-08-30] MEDS: Z GUARD REMEDY 4 OZ OINT TP SCH (21:40)
[2018-08-31] VITALS: BP 148/87
[2018-08-31] MEDS: BLOOD SUGAR DIAGNOSTIC 1 EACH STRIP IN SCH ×5 (00:44→23:51)
[2018-08-31] MEDS: INSULIN REGULAR, HUMAN 100 UNIT/ML 10 ML VIAL SQ SCH ×5 (00:45→23:52)
[2018-08-31] MEDS: SIMETHICONE 80 MG TAB.CHEW GT SCH ×5 (00:47→23:50)
[2018-08-31 04:00] VITALS: BP 148/82
[2018-08-31] MEDS: METOCLOPRAMIDE HCL 10 MG/10 ML UDC GT SCH ×3 (05:00→20:32)
[2018-08-31] MEDS: PROSOURCE / PROSTAT (PYXIS) 30 ML UDC GT SCH ×3 (05:00→20:32)
[2018-08-31] MEDS: OMEPRAZOLE 20 MG CAPSULE.DR GT SCH (06:36)
[2018-08-31 07:38] VITALS: BP 153/89
[2018-08-31] MEDS: VITAMINS A AND D 56.7 GM TUBE TP SCH ×2 (09:00→20:33)
[2018-08-31] MEDS ORDERED: PANTOPRAZOLE 40 MG/PACK PACK GT SCH (09:00)
[2018-08-31] MEDS: MULTIVITAMINS,THERAGRAN 1 UDTAB TABLET GT SCH (09:00)
[2018-08-31] MEDS: MINERAL OIL/PETROL OINT 396 GM JAR TP SCH ×2 (09:00→20:33)
[2018-08-31] MEDS: Z GUARD REMEDY 4 OZ OINT TP SCH ×2 (09:00→20:33)
[2018-08-31] MEDS: SPIRONOLACTONE 25 MG TABLET PO SCH (09:00)
[2018-08-31] MEDS: ACIDOPHILUS/BULGARICUS 1 EACH TAB.CHEW GT SCH (09:18)
[2018-08-31] MEDS: FINASTERIDE (5 MG) 5 MG TABLET GT SCH (09:18)
[2018-08-31] MEDS: CHLORHEXIDINE GLUCONATE 15 ML UDC MM SCH ×2 (09:19→20:33)
[2018-08-31] MEDS: LACOSAMIDE ORAL SOLN 50 MG/5 ML UDC GT SCH ×2 (09:19→20:32)
[2018-08-31] MEDS: TAMSULOSIN 0.4 MG CAP.SR.24H PO SCH (09:19)
[2018-08-31] MEDS: LINAGLIPTIN 5 MG TABLET GT SCH (09:19)
[2018-08-31] MEDS: ASCORBIC ACID 500 MG TABLET GT SCH (09:19)
[2018-08-31] MEDS: CARVEDILOL 6.25 MG TABLET GT SCH ×2 (09:20→20:32)
[2018-08-31] MEDS: DORZOLAMIDE OPTH 2% 10 ML BOTTLE EACHEYE SCH ×3 (09:20→16:08)
[2018-08-31] MEDS ORDERED: HYDROGEN PEROXIDE 480 ML BOTTLE TP PRN (10:59)
[2018-08-31] MEDS ORDERED: MAG HYDROX/AL HYDROX/SIMETH 30 ML UDC GT PRN (11:16)
[2018-08-31] MEDS: IPRATROPIUM NEB FS 0.5 MG/2.5 ML AMPUL.NEB IH SCH ×2 (13:57→20:06)
[2018-08-31] MEDS: ALBUTEROL FS 2.5 MG/0.5 ML VIAL.NEB NEB SCH ×2 (13:57→20:06)
[2018-08-31] MEDS: ACETYLCYSTEINE 10% SOLN 400 MG/4 ML VIAL NEB SCH ×2 (13:58→23:30)
--- NOTE | 2018-08-31 15:15 | NUR ---
INTERDISCIPLINARY TEAM CONFERENCE (IDT) was held today. Resident's son Dr. Jose Johns attended today's IDT meeting via telephone conference. Dr. Ramírez and the interdisciplinary team reviewed the current plan of care in detail. Orders as well as treatment and medications were reviewed. Resident will have a repeat potassium level done on Monday in the AM. Resident's son asked Dr. Ramírez how the resident has been breathing as he noticed that the resident's breathing has been labored. Dr. Ramírez expressed that he will take a look after the meeting and will assess if the resident needs to be placed into the vent.
[2018-08-31 16:02] VITALS: BP 153/89
[2018-08-31 16:54] LABS: BASOPHILS % (AUTO) 0.3 % (0.0-2.0); EOSINOPHILS % (AUTO) 1.5 % (0.0-6.0); HEMATOCRIT 26 % (39-51); HEMOGLOBIN 8.1 g/dL (13.5-17.5); LYMPHOCYTES # (AUTO) 0.7 /CMM (0.8-4.8); LYMPHOCYTES % (AUTO) 12.3 % (20.0-44.0); MEAN CORPUSCULAR HGB CONC 31 g/dl (31.0-36.0); MEAN CORPUSCULAR VOLUME 92 fL (80-96); MONOCYTES # (AUTO) 0.5 /CMM (0.1-1.30); MONOCYTES % (AUTO) 8.8 % (2.0-12.0); NEUTROPHILS # (AUTO) 4.3 /CMM (1.8-8.9); NEUTROPHILS % (AUTO) 77.1 % (43.0-81.0); PLATELET COUNT (AUTO) 150 /CMM (150-450); RED BLOOD CELL COUNT(AUTO) 2.88 MIL/uL (4.5-6.0); WHITE BLOOD COUNT (AUTO) 5.6 K/uL (4.3-11.0)
--- NOTE | 2018-08-31 17:07 | NUR ---
Dr. Ramírez ordered potassium level and chest X-ray to be done stacey. 09/01/18.
[2018-08-31 17:11] LABS: CARBON DIOXIDE 29 mmol/L (21-32); CHLORIDE 108 mmol/L (98-107); CREATININE 1.3 mg/dL (0.6-1.3); GLUCOSE 204 mg/dL (74-106); PHOSPHORUS 3.9 mg/dL (2.5-4.9); POTASSIUM 3.3 mmol/L (3.5-5.1); SODIUM SERUM 129 mmol/L (136-145); UREA NITROGEN, BLOOD 60 mg/dL (7-18)
--- NOTE | 2018-08-31 18:48 | NUR ---
Seen by BRANDO Pineda, no new order given.
[2018-08-31 20:18] VITALS: BP 147/82
[2018-08-31] MEDS: HYDROGEN PEROXIDE 480 ML BOTTLE TP SCH (20:33)
[2018-08-31] MEDS: ATORVASTATIN 40 MG TABLET GT SCH (21:48)
[2018-08-31] MEDS: LATANOPROST EYE DROP 0.005% 2.5 ML BOTTLE EACHEYE SCH (21:48)
--- NOTE | 2018-08-31 21:53 | NUR ---
RT NOTE PATIENT RECEIVED TRACHED ON COOL AEROSOL. TX GIVEN, NO ADVERSE REACTIONS NOTED. SX DONE, TRACH SECURED AND PATENT. PATIENT STABLE. NO DISTRESS NOTED. WATER LEVEL GOOD. WILL MONITOR T/O SHIFT. Addendum: 08/31/18 at 2155 by GINGER YOU RT Amended: Links added.
[2018-09-01 00:29] VITALS: BP 147/92
[2018-09-01] MEDS: IPRATROPIUM NEB FS 0.5 MG/2.5 ML AMPUL.NEB IH SCH ×4 (01:45→19:58)
[2018-09-01] MEDS: ALBUTEROL FS 2.5 MG/0.5 ML VIAL.NEB NEB SCH ×4 (01:45→19:58)
[2018-09-01 04:05] VITALS: BP 130/77
[2018-09-01] MEDS: METOCLOPRAMIDE HCL 10 MG/10 ML UDC GT SCH ×3 (05:41→21:25)
[2018-09-01] MEDS: SIMETHICONE 80 MG TAB.CHEW GT SCH ×3 (05:41→17:04)
[2018-09-01] MEDS: OMEPRAZOLE 20 MG CAPSULE.DR GT SCH (05:41)
[2018-09-01] MEDS: PROSOURCE / PROSTAT (PYXIS) 30 ML UDC GT SCH ×3 (05:41→21:25)
[2018-09-01] MEDS: INSULIN REGULAR, HUMAN 100 UNIT/ML 10 ML VIAL SQ SCH ×3 (05:58→17:38)
[2018-09-01] MEDS: BLOOD SUGAR DIAGNOSTIC 1 EACH STRIP IN SCH ×3 (05:58→17:37)
[2018-09-01 08:00] VITALS: BP 142/78
[2018-09-01] MEDS: ACETYLCYSTEINE 10% SOLN 400 MG/4 ML VIAL NEB SCH ×3 (08:03→23:07)
[2018-09-01] MEDS: CARVEDILOL 6.25 MG TABLET GT SCH ×2 (09:03→21:25)
[2018-09-01] MEDS: LACOSAMIDE ORAL SOLN 50 MG/5 ML UDC GT SCH ×2 (09:03→21:25)
[2018-09-01] MEDS: HYDROGEN PEROXIDE 480 ML BOTTLE TP SCH ×2 (09:03→21:26)
[2018-09-01] MEDS: LINAGLIPTIN 5 MG TABLET GT SCH (09:03)
[2018-09-01] MEDS: ACIDOPHILUS/BULGARICUS 1 EACH TAB.CHEW GT SCH (09:03)
[2018-09-01] MEDS: DORZOLAMIDE OPTH 2% 10 ML BOTTLE EACHEYE SCH ×3 (09:03→16:20)
[2018-09-01] MEDS: MULTIVITAMINS,THERAGRAN 1 UDTAB TABLET GT SCH (09:03)
[2018-09-01] MEDS: SPIRONOLACTONE 25 MG TABLET PO SCH (09:03)
[2018-09-01] MEDS: CHLORHEXIDINE GLUCONATE 15 ML UDC MM SCH ×2 (09:03→21:26)
[2018-09-01] MEDS: MINERAL OIL/PETROL OINT 396 GM JAR TP SCH ×2 (09:03→21:26)
[2018-09-01] MEDS: TAMSULOSIN 0.4 MG CAP.SR.24H PO SCH (09:03)
[2018-09-01] MEDS: FINASTERIDE (5 MG) 5 MG TABLET GT SCH (09:03)
[2018-09-01] MEDS: ASCORBIC ACID 500 MG TABLET GT SCH (09:03)
[2018-09-01] MEDS: Z GUARD REMEDY 4 OZ OINT TP SCH ×2 (09:04→21:26)
[2018-09-01] MEDS: VITAMINS A AND D 56.7 GM TUBE TP SCH ×2 (09:04→21:26)
[2018-09-01 09:37] VITALS: BP 142/78
[2018-09-01 09:37] LABS: CALCIUM, SERUM 8.9 mg/dL (8.5-10.1); CARBON DIOXIDE 30 mmol/L (21-32); CHLORIDE 108 mmol/L (98-107); CREATININE 1.3 mg/dL (0.6-1.3); GLUCOSE 190 mg/dL (74-106); POTASSIUM 3.2 mmol/L (3.5-5.1); SODIUM SERUM 129 mmol/L (136-145); UREA NITROGEN, BLOOD 66 mg/dL (7-18)
--- NOTE | 2018-09-01 11:00 | NUR ---
Notified Dr. Ramírez of all lab results and chest x ray, He is aware patients' sodium still 129, K+ - 3.2, BUN - 66. Made Dr. Ramírez aware too of chest x ray results. He ordered to give KCl 40 meq via GT X 1 DOSE ONLY, start levaquin via GT X 7 DAYS pharmacy to dose, sputum c and s. Patient also having loose stools, has order of stool C Diff toxin. Diagnosis for levaquin - pneumonia. RT collected sputum spec., sent to lab. All orders noted and carried out. Patient closely monitored.
[2018-09-01] MEDS: NEPRO 1,000 ML BOTTLE GT PRN (11:17)
[2018-09-01] MEDS ORDERED: POTASSIUM CHLORIDE 20 MEQ POWDER PACKET GT ONE (12:00)
[2018-09-01 12:01] VITALS: BP 125/66
[2018-09-01] MEDS: LEVOFLOXACIN (750 MG) 750 MG TABLET GT SCH (15:35)
--- NOTE | 2018-09-01 18:00 | NUR ---
Collected stool specimen for C-Diff toxin and sent to lab. Patient resting in bed, not in distress. Closely monitored.
[2018-09-01 20:27] VITALS: BP 147/84
--- NOTE | 2018-09-01 20:43 | NUR ---
PATIENT RCVD TRACH'D ON COOL AEROSOL WITH CHARTED SETTINGS. HHN TX GIVEN AND NO ADVERSE REACTIONS NOTED. SX DONE. PT TRACH SECURED AND PATENT. NO RESP DISTRESS NOTED AT THIS TIME. AMBU BAG AT BEDSIDE. WILL CONTINUE TO MONITOR. Addendum: 09/01/18 at 2043 by TITO GACRES RT Amended: Links added.
[2018-09-01] MEDS: ATORVASTATIN 40 MG TABLET GT SCH (21:26)
[2018-09-01] MEDS: LATANOPROST EYE DROP 0.005% 2.5 ML BOTTLE EACHEYE SCH (21:26)
[2018-09-02] MEDS: INSULIN REGULAR, HUMAN 100 UNIT/ML 10 ML VIAL SQ SCH ×5 (00:01→23:51)
[2018-09-02 00:10] VITALS: BP 144/76
[2018-09-02] MEDS: IPRATROPIUM NEB FS 0.5 MG/2.5 ML AMPUL.NEB IH SCH ×4 (01:23→19:53)
[2018-09-02] MEDS: ALBUTEROL FS 2.5 MG/0.5 ML VIAL.NEB NEB SCH ×4 (01:23→19:53)
[2018-09-02] MEDS: IPRATROPIUM NEB FS 0.5 MG/2.5 ML AMPUL.NEB IH PRN (03:43)
[2018-09-02] MEDS: ALBUTEROL FS 2.5 MG/0.5 ML VIAL.NEB NEB PRN (03:43)
--- NOTE | 2018-09-02 04:03 | NUR ---
RT NOTE NOTIFIED CHARGE NURSE AND RN OF INCREASED WORK OF BREATHING.
[2018-09-02 04:24] VITALS: BP 139/83
--- NOTE | 2018-09-02 04:35 | NUR ---
Charge nurse checked patient, current vital sign is EC=098/83 HR=76 RR=32 SPO2=98%. breathing treatment given by RT. suctioning and reposition done. patient is calm and asleep. charge nurse informed Dr. Ramírez. will continue to monitor and wait for MD order.
--- NOTE | 2018-09-02 05:36 | NUR ---
RT NOTE PER CHARGE NURSE DR AGUDELO WAS TEXTED AT 0520 ABOUT PATIENT'S CHANGE OF STATUS. AWAITING RESPONSE.
[2018-09-02] MEDS: SIMETHICONE 80 MG TAB.CHEW GT SCH ×5 (05:39→23:49)
[2018-09-02] MEDS: METOCLOPRAMIDE HCL 10 MG/10 ML UDC GT SCH ×3 (05:39→20:55)
[2018-09-02] MEDS: OMEPRAZOLE 20 MG CAPSULE.DR GT SCH (05:39)
[2018-09-02] MEDS: PROSOURCE / PROSTAT (PYXIS) 30 ML UDC GT SCH ×3 (05:39→20:54)
[2018-09-02] MEDS: BLOOD SUGAR DIAGNOSTIC 1 EACH STRIP IN SCH ×5 (06:30→23:50)
[2018-09-02] MEDS: ACETYLCYSTEINE 10% SOLN 400 MG/4 ML VIAL NEB SCH ×3 (07:20→23:38)
[2018-09-02 07:50] VITALS: BP 127/69
[2018-09-02 08:00] VITALS: BP 127/69
--- NOTE | 2018-09-02 08:00 | NUR ---
RT NOTE: PATIENT RECEIVED TRACHED WITH INCREASED WOB. PATIENT WAS SUCTIONED AND BREATHING TREATMENT WAS GIVEN. PER DR. AGUDELO PATIENT WAS PLACED ON MECHANICAL VENTILATOR. SETTINGS: AC 16, BG=554, FI02=40%. VENT ALARMS SET AND AUDIBLE. AMBU BAG AND NEW TRACH AT [facility]. PATIENT'S SP02=97% AND RESPIRATIONS ARE EVEN AND UNLABORED. WILL CONTINUE TO MONITOR.
--- NOTE | 2018-09-02 08:00 | NUR ---
Resident noted with shallow breathing, RR-[address] Ramírez informed with order to put patient on mechanical ventilator AC 12, VT 500, PEEP 5, FIO2 40%. Jose Ruizy (son) informed of new plan of care. Dr. Lugo informed. Afebrile Temp. 97.8. HR- 74, BP- 127/69. On Levaquin per GT for PNA.
[2018-09-02] MEDS: VITAMINS A AND D 56.7 GM TUBE TP SCH ×2 (09:00→20:57)
[2018-09-02] MEDS: MINERAL OIL/PETROL OINT 396 GM JAR TP SCH ×2 (09:00→20:57)
[2018-09-02] MEDS: Z GUARD REMEDY 4 OZ OINT TP SCH ×2 (09:00→20:57)
[2018-09-02] MEDS: HYDROGEN PEROXIDE 480 ML BOTTLE TP SCH ×2 (09:00→20:57)
[2018-09-02] MEDS: MULTIVITAMINS,THERAGRAN 1 UDTAB TABLET GT SCH (09:00)
[2018-09-02] MEDS: DORZOLAMIDE OPTH 2% 10 ML BOTTLE EACHEYE SCH ×3 (09:11→17:29)
[2018-09-02] MEDS: CARVEDILOL 6.25 MG TABLET GT SCH ×2 (09:12→20:54)
[2018-09-02] MEDS: FINASTERIDE (5 MG) 5 MG TABLET GT SCH (09:12)
[2018-09-02] MEDS: ACIDOPHILUS/BULGARICUS 1 EACH TAB.CHEW GT SCH (09:12)
[2018-09-02] MEDS: SPIRONOLACTONE 25 MG TABLET PO SCH (09:13)
[2018-09-02] MEDS: LINAGLIPTIN 5 MG TABLET GT SCH (09:13)
[2018-09-02] MEDS: CHLORHEXIDINE GLUCONATE 15 ML UDC MM SCH ×2 (09:13→20:56)
[2018-09-02] MEDS: ASCORBIC ACID 500 MG TABLET GT SCH (09:13)
[2018-09-02] MEDS: TAMSULOSIN 0.4 MG CAP.SR.24H PO SCH (09:14)
[2018-09-02] MEDS: LACOSAMIDE ORAL SOLN 50 MG/5 ML UDC GT SCH ×2 (09:16→20:56)
[2018-09-02 12:00] VITALS: BP 130/72
[2018-09-02] MEDS: NEPRO 1,000 ML BOTTLE GT PRN (12:17)
[2018-09-02] MEDS: LEVOFLOXACIN (750 MG) 750 MG TABLET GT SCH (12:53)
--- NOTE | 2018-09-02 19:13 | NUR ---
Resident afebrile. On mechanical vent, tolerating well. No resp. distress noted. Cont on ATB therapy per GT for PNA. No adverse reaction noted. Will continue to monitor.
[2018-09-02 20:31] VITALS: BP 137/75
--- NOTE | 2018-09-02 21:00 | NUR ---
RT PATIENT RECEIVED TRACHED ON [facility] VENT ON CHARTED SETTINGS. NO RESP DISTRESS NOTED. HHN TX GIVEN, NO ADVERSE REACTIONS NOTED. PT SUCTIONED. ALARMS SET AND AUDIBLE. AMBU BAG/BACK UP TRACH @ BEDSIDE. VENT CONNECTED TO RED OUTLET. WILL CONT TO MONITOR. Addendum: 09/02/18 at 2100 by BLADIMIR MEEK RT Amended: Links added.
--- NOTE | 2018-09-02 21:18 | NUR ---
RT VENT SEETINGS CHANGED PER MD ORDER: PEEP +5 Addendum: 09/02/18 at 2119 by BLADIMIR MEEK RT Amended: Links added.
[2018-09-02] MEDS: ATORVASTATIN 40 MG TABLET GT SCH (22:26)
[2018-09-02] MEDS: LATANOPROST EYE DROP 0.005% 2.5 ML BOTTLE EACHEYE SCH (22:26)
[2018-09-03] VITALS: BP 133/72
[2018-09-03] MEDS: IPRATROPIUM NEB FS 0.5 MG/2.5 ML AMPUL.NEB IH SCH ×4 (02:05→19:56)
[2018-09-03] MEDS: ALBUTEROL FS 2.5 MG/0.5 ML VIAL.NEB NEB SCH ×4 (02:06→19:56)
[2018-09-03 04:55] VITALS: BP 128/67
[2018-09-03] MEDS: METOCLOPRAMIDE HCL 10 MG/10 ML UDC GT SCH ×3 (05:28→20:49)
[2018-09-03] MEDS: SIMETHICONE 80 MG TAB.CHEW GT SCH ×3 (05:28→18:15)
[2018-09-03] MEDS: PROSOURCE / PROSTAT (PYXIS) 30 ML UDC GT SCH ×3 (05:28→20:49)
[2018-09-03] MEDS: BLOOD SUGAR DIAGNOSTIC 1 EACH STRIP IN SCH ×3 (05:31→18:15)
[2018-09-03] MEDS: OMEPRAZOLE 20 MG CAPSULE.DR GT SCH (05:31)
[2018-09-03] MEDS: INSULIN REGULAR, HUMAN 100 UNIT/ML 10 ML VIAL SQ SCH ×3 (05:32→18:16)
[2018-09-03] MEDS: ACETYLCYSTEINE 10% SOLN 400 MG/4 ML VIAL NEB SCH (07:35)
[2018-09-03 08:00] VITALS: BP 135/60
[2018-09-03 08:09] VITALS: BP 135/60
[2018-09-03] MEDS: DORZOLAMIDE OPTH 2% 10 ML BOTTLE EACHEYE SCH ×3 (08:37→17:00)
[2018-09-03] MEDS: CARVEDILOL 6.25 MG TABLET GT SCH ×2 (08:38→20:48)
[2018-09-03] MEDS: LINAGLIPTIN 5 MG TABLET GT SCH (08:39)
[2018-09-03] MEDS: FINASTERIDE (5 MG) 5 MG TABLET GT SCH (08:39)
[2018-09-03] MEDS: MULTIVITAMINS,THERAGRAN 1 UDTAB TABLET GT SCH (08:39)
[2018-09-03] MEDS: ACIDOPHILUS/BULGARICUS 1 EACH TAB.CHEW GT SCH (08:39)
[2018-09-03] MEDS: LACOSAMIDE ORAL SOLN 50 MG/5 ML UDC GT SCH ×2 (08:40→20:50)
[2018-09-03] MEDS: CHLORHEXIDINE GLUCONATE 15 ML UDC MM SCH ×2 (08:40→20:50)
[2018-09-03] MEDS: SPIRONOLACTONE 25 MG TABLET PO SCH (08:40)
[2018-09-03] MEDS: ASCORBIC ACID 500 MG TABLET GT SCH (08:40)
[2018-09-03] MEDS: TAMSULOSIN 0.4 MG CAP.SR.24H PO SCH (08:41)
[2018-09-03] MEDS: Z GUARD REMEDY 4 OZ OINT TP SCH ×2 (09:00→20:50)
[2018-09-03] MEDS: MINERAL OIL/PETROL OINT 396 GM JAR TP SCH ×2 (09:00→20:50)
[2018-09-03] MEDS: VITAMINS A AND D 56.7 GM TUBE TP SCH ×2 (09:00→20:51)
[2018-09-03] MEDS: HYDROGEN PEROXIDE 480 ML BOTTLE TP SCH ×2 (09:00→20:50)
--- NOTE | 2018-09-03 09:18 | NUR ---
RT NOTE RECEIVED PT MECHANICALLY VENTILATED VIA CUFFED TRACHEOSTOMY TUBE. CUFF INFLATED VIA MOTION PICTURE SCENE BUILDER. TRACH TUBE MIDLINE AND SECURE. VENTILATOR SETTINGS PRESCRIBED. ALARMS SET PER PROTOCOL AND AUDIBLE. VENT PLUGGED IN TO RED OUTLET. AMBU BAG AT BED SIDE. NO DISTRESS NOTED AT MOMENT. Addendum: 09/03/18 at 0919 by CARINA SUAREZ RT Amended: Links added.
[2018-09-03 12:00] VITALS: BP 140/68
[2018-09-03] MEDS: LEVOFLOXACIN (750 MG) 750 MG TABLET GT SCH (12:27)
--- NOTE | 2018-09-03 19:15 | NUR ---
Seen by BRANDO Pineda. Pt's son at bedside. He was concerned about pt's edema. BRANDO Pineda explained that she does not want to order any Lasix at this time since pt is just recovering from renal failure. She ordered to apply thigh high compression stockings. Addendum: 09/04/18 at 1304 by MAGDA LOBO RN Pt already had an existing pair of thigh high compression stockings.
[2018-09-03 20:30] VITALS: BP 128/54
[2018-09-03] MEDS: ATORVASTATIN 40 MG TABLET GT SCH (22:36)
[2018-09-03] MEDS: LATANOPROST EYE DROP 0.005% 2.5 ML BOTTLE EACHEYE SCH (22:36)
[2018-09-04] MEDS: ACETYLCYSTEINE 10% SOLN 400 MG/4 ML VIAL NEB SCH ×3 (00:16→15:51)
[2018-09-04] MEDS: BLOOD SUGAR DIAGNOSTIC 1 EACH STRIP IN SCH ×4 (00:44→17:19)
[2018-09-04] MEDS: SIMETHICONE 80 MG TAB.CHEW GT SCH ×5 (00:44→23:19)
[2018-09-04] MEDS: INSULIN REGULAR, HUMAN 100 UNIT/ML 10 ML VIAL SQ SCH ×4 (00:45→17:21)
[2018-09-04 00:47] VITALS: BP 148/78
[2018-09-04] MEDS: IPRATROPIUM NEB FS 0.5 MG/2.5 ML AMPUL.NEB IH SCH ×4 (00:58→19:30)
[2018-09-04] MEDS: ALBUTEROL FS 2.5 MG/0.5 ML VIAL.NEB NEB SCH ×4 (01:00→19:30)
[2018-09-04 04:06] VITALS: BP 139/75
[2018-09-04] MEDS: METOCLOPRAMIDE HCL 10 MG/10 ML UDC GT SCH ×3 (05:29→21:13)
[2018-09-04] MEDS: PROSOURCE / PROSTAT (PYXIS) 30 ML UDC GT SCH ×3 (05:29→21:09)
[2018-09-04] MEDS: OMEPRAZOLE 20 MG CAPSULE.DR GT SCH (05:32)
[2018-09-04 07:41] LABS: BASOPHILS % (AUTO) 0.2 % (0.0-2.0); EOSINOPHILS % (AUTO) 1.9 % (0.0-6.0); HEMATOCRIT 26 % (39-51); LYMPHOCYTES # (AUTO) 0.9 /CMM (0.8-4.8); LYMPHOCYTES % (AUTO) 19.5 % (20.0-44.0); MEAN CORPUSCULAR HGB CONC 31 g/dl (31.0-36.0); MEAN CORPUSCULAR VOLUME 92 fL (80-96); MONOCYTES # (AUTO) 0.6 /CMM (0.1-1.30); MONOCYTES % (AUTO) 12.1 % (2.0-12.0); NEUTROPHILS # (AUTO) 3.1 /CMM (1.8-8.9); NEUTROPHILS % (AUTO) 66.3 % (43.0-81.0); PLATELET COUNT (AUTO) 130 /CMM (150-450); RED BLOOD CELL COUNT(AUTO) 2.78 MIL/uL (4.5-6.0); WHITE BLOOD COUNT (AUTO) 4.6 K/uL (4.3-11.0)
[2018-09-04 08:00] VITALS: BP 145/73
[2018-09-04 08:13] LABS: ALANINE AMINOTRANSFERASE 95 U/L (12-78); ALKALINE PHOSPHATASE 779 U/L (46-116); ASPARTATE AMINOTRANSFERASE 85 U/L (15-37); B-TYPE NATRIURETIC PEPTIDE 6964 PG/ML (0-125); BILIRUBIN,TOTAL 0.4 mg/dL (0.2-1.0); CALCIUM, SERUM 8.8 mg/dL (8.5-10.1); CARBON DIOXIDE 30 mmol/L (21-32); CHLORIDE 112 mmol/L (98-107); CREATININE 1.6 mg/dL (0.6-1.3); GLUCOSE 174 mg/dL (74-106); POTASSIUM 3.8 mmol/L (3.5-5.1); SODIUM SERUM 147 mmol/L (136-145)
[2018-09-04 08:14] VITALS: BP 145/73
[2018-09-04 08:16] LABS: UREA NITROGEN, BLOOD 87 mg/dL (7-18)
[2018-09-04] MEDS: LINAGLIPTIN 5 MG TABLET GT SCH (08:59)
[2018-09-04] MEDS: CARVEDILOL 6.25 MG TABLET GT SCH ×2 (08:59→21:09)
[2018-09-04] MEDS: LACOSAMIDE ORAL SOLN 50 MG/5 ML UDC GT SCH ×2 (08:59→21:15)
[2018-09-04] MEDS: ACIDOPHILUS/BULGARICUS 1 EACH TAB.CHEW GT SCH (08:59)
[2018-09-04] MEDS: CHLORHEXIDINE GLUCONATE 15 ML UDC MM SCH ×2 (08:59→21:11)
[2018-09-04] MEDS: DORZOLAMIDE OPTH 2% 10 ML BOTTLE EACHEYE SCH ×3 (08:59→17:19)
[2018-09-04] MEDS: FINASTERIDE (5 MG) 5 MG TABLET GT SCH (08:59)
[2018-09-04] MEDS: ASCORBIC ACID 500 MG TABLET GT SCH (08:59)
[2018-09-04] MEDS: SPIRONOLACTONE 25 MG TABLET PO SCH (09:00)
[2018-09-04] MEDS: MINERAL OIL/PETROL OINT 396 GM JAR TP SCH ×2 (09:00→21:11)
[2018-09-04] MEDS: VITAMINS A AND D 56.7 GM TUBE TP SCH ×2 (09:00→21:12)
[2018-09-04] MEDS: NEPRO 1,000 ML BOTTLE GT PRN (09:00)
[2018-09-04] MEDS: TAMSULOSIN 0.4 MG CAP.SR.24H PO SCH (09:00)
[2018-09-04] MEDS: Z GUARD REMEDY 4 OZ OINT TP SCH ×2 (09:00→21:11)
[2018-09-04] MEDS: MULTIVITAMINS,THERAGRAN 1 UDTAB TABLET GT SCH (09:00)
[2018-09-04] MEDS: HYDROGEN PEROXIDE 480 ML BOTTLE TP SCH ×2 (09:00→21:11)
--- NOTE | 2018-09-04 09:30 | NUR ---
Seen by Dr Ramírez. Relayed CXR and lab results to him. He is aware of pt's BUN 87. No new order at this time.
[2018-09-04 12:00] VITALS: BP 144/83
--- NOTE | 2018-09-04 12:37 | NUR ---
Seen by MANAGER COMMUNITY OUTREACH Arlyn Hanks. She ordered to give Levaquin 750 mg GT q 24 hours for 5 days total instead of 7 days. [facility] pharmacist Delia said to change Levaquin to 750 mg GT q 48 hours based on pt's renal function. Informed MANAGER COMMUNITY OUTREACH Arlyn Hanks who agreed to the dose adjustment. She said to still give Levaquin until 09/06/18.
--- NOTE | 2018-09-04 13:02 | NUR ---
Clarified with CLEANING ATTENDANT Nilam Pineda if it is fine to have both the thigh high compression stockings and SCD at the same time. She said yes.
--- NOTE | 2018-09-04 18:09 | NUR ---
Seen by Dr Lugo. Relayed CXR, labs and Levaquin order to him. Pt's son at bedside and Dr Lugo answered all of his questions. Received order to do ABG tomorrow, have security supervisor evaluate need to change pt's feeding due to increasing BUN, and do bladder scan to check PVR. Pt voided and bladder scan was done. PVR [address] Lugo. Pt's son aware of PVR.
--- NOTE | 2018-09-04 18:48 | NUR ---
Dr Lugo ordered to place Parra catheter Fr 16 x 10 mL and repeat BMP in AM.
[2018-09-04 20:18] VITALS: BP 131/72
[2018-09-04] MEDS: ATORVASTATIN 40 MG TABLET GT SCH (21:12)
[2018-09-04] MEDS: LATANOPROST EYE DROP 0.005% 2.5 ML BOTTLE EACHEYE SCH (21:12)
--- NOTE | 2018-09-04 21:20 | NUR ---
RN NOTE VIMPAT ORAL SOLUTION TAKEN OUT TWICE FROM OMNICELL DUE TO THE FIRST ONE SPILLING. CHARGE NURSE MADE AWARE.
[2018-09-05] VITALS: BP 123/73
[2018-09-05] MEDS: ACETYLCYSTEINE 10% SOLN 400 MG/4 ML VIAL NEB SCH ×4 (00:25→23:10)
[2018-09-05] MEDS: BLOOD SUGAR DIAGNOSTIC 1 EACH STRIP IN SCH ×4 (00:41→17:41)
[2018-09-05] MEDS: INSULIN REGULAR, HUMAN 100 UNIT/ML 10 ML VIAL SQ SCH ×4 (00:42→17:42)
[2018-09-05] MEDS: IPRATROPIUM NEB FS 0.5 MG/2.5 ML AMPUL.NEB IH SCH ×4 (01:50→19:50)
[2018-09-05] MEDS: ALBUTEROL FS 2.5 MG/0.5 ML VIAL.NEB NEB SCH ×4 (01:50→19:50)
[2018-09-05 04:25] VITALS: BP 132/63
[2018-09-05] MEDS: PROSOURCE / PROSTAT (PYXIS) 30 ML UDC GT SCH ×2 (05:53→12:20)
[2018-09-05] MEDS: SIMETHICONE 80 MG TAB.CHEW GT SCH ×3 (05:53→17:03)
[2018-09-05] MEDS: METOCLOPRAMIDE HCL 10 MG/10 ML UDC GT SCH ×3 (05:53→20:35)
[2018-09-05] MEDS: OMEPRAZOLE 20 MG CAPSULE.DR GT SCH (05:53)
[2018-09-05 08:00] VITALS: BP 140/79
[2018-09-05 08:08] VITALS: BP 140/79
[2018-09-05 08:15] LABS: CALCIUM, SERUM 8.5 mg/dL (8.5-10.1); CARBON DIOXIDE 31 mmol/L (21-32); CHLORIDE 111 mmol/L (98-107); CREATININE 1.6 mg/dL (0.6-1.3); GLUCOSE 147 mg/dL (74-106); POTASSIUM 3.7 mmol/L (3.5-5.1); SODIUM SERUM 149 mmol/L (136-145)
[2018-09-05 08:16] LABS: UREA NITROGEN, BLOOD 91 mg/dL (7-18)
[2018-09-05] MEDS: DORZOLAMIDE OPTH 2% 10 ML BOTTLE EACHEYE SCH ×3 (08:34→16:41)
[2018-09-05] MEDS: CARVEDILOL 6.25 MG TABLET GT SCH ×2 (08:35→20:35)
[2018-09-05] MEDS: ACIDOPHILUS/BULGARICUS 1 EACH TAB.CHEW GT SCH (08:36)
[2018-09-05] MEDS: FINASTERIDE (5 MG) 5 MG TABLET GT SCH (08:36)
[2018-09-05] MEDS: LINAGLIPTIN 5 MG TABLET GT SCH (08:37)
[2018-09-05] MEDS: CHLORHEXIDINE GLUCONATE 15 ML UDC MM SCH ×2 (08:38→20:40)
[2018-09-05] MEDS: SPIRONOLACTONE 25 MG TABLET PO SCH (08:38)
[2018-09-05] MEDS: MULTIVITAMINS,THERAGRAN 1 UDTAB TABLET GT SCH (08:38)
[2018-09-05] MEDS: ASCORBIC ACID 500 MG TABLET GT SCH (08:38)
[2018-09-05] MEDS: TAMSULOSIN 0.4 MG CAP.SR.24H PO SCH (08:39)
[2018-09-05] MEDS: MINERAL OIL/PETROL OINT 396 GM JAR TP SCH ×2 (08:40→20:36)
[2018-09-05] MEDS: Z GUARD REMEDY 4 OZ OINT TP SCH ×2 (08:40→20:36)
[2018-09-05] MEDS: HYDROGEN PEROXIDE 480 ML BOTTLE TP SCH ×2 (08:40→20:36)
[2018-09-05] MEDS: VITAMINS A AND D 56.7 GM TUBE TP SCH ×2 (08:40→20:36)
[2018-09-05] MEDS: LACOSAMIDE ORAL SOLN 50 MG/5 ML UDC GT SCH ×2 (08:43→20:35)
--- NOTE | 2018-09-05 09:10 | NUR ---
RT RECEIVED PT TRACH VENT DEPENDENT W/ NOTED SETTINGS. ARTIFICIAL FOLIAGE ARRANGER DONE AND TRACH IS SECURE. B/S JOSE RHONCHI. VENT ALARMS CHECKED AND AUDIBLE. VENT PLUGGED IN RED OUTLET. SX WITH MOD THK WHITE SECRETIONS. AMBU BAG AND SPARE TRACH NOTED HOB. BREATHING TX GIVEN AND NO ADV REACTION. NO SOB OR RESP DISTRESS NOTED, PT TOLERATING SETTINGS WELL. WILL CONTINUE TO MONITOR T/O SHIFT.
[2018-09-05] MEDS: NEPRO 1,000 ML BOTTLE GT PRN (09:19)
[2018-09-05 10:03] LABS: ABG BASE EXCESS 3.3 mmol/L; ABG OXYGEN SATURATION 89.5 % (92.0-98.5); ABG PCO2 43.9 mmHg (35.0-45.0); ABG PH 7.423 (7.350-7.450); ABG PO2 59.7 mmHg (75.0-100.0); COHb 1.3 % (0.5-1.5); MetHb 0.9 % (0.0-1.5); O2Hb 87.5 % (94.0-97.0); PEEP,BG 5 cm H2O; SITE, ABG Left Radial; VT, ABG 500 mL
--- NOTE | 2018-09-05 11:30 | NUR ---
Reported BMP (BUN 91, Creat 1.6) and ABG result to Dr. Lugo, with new order to follow-up consult with Dr. Harpreet Parker and dietary to evaluate current tube feeding formula. MD informed that turf grower is working on her recommendations. Notified Dr. Parker of elevated BUN 91 and rest of BMP result, with new order to start IVF 1/2 NS at 85 cc/hr x 2 L, with repeat CBC and BMP in AM. Resident's son notified.
[2018-09-05 12:00] VITALS: BP 134/59
[2018-09-05] MEDS ORDERED: LEVOFLOXACIN (750 MG) 750 MG TABLET GT SCH (12:00)
[2018-09-05] MEDS: IV 1/2NS 1000 ML 1,000 ML IV SCH (12:59)
--- NOTE | 2018-09-05 17:45 | NUR ---
Director Of Ancillary Services recommended to discontinue Prostat and tube feeding Nepro but change to Vital 1.2 at 70cc/hr. Order carried out. Dr. Swenson made aware that patient's latest sputum culture result shows pseudomonas with intermediary to Levaquin. Resident's son informed, he said that he talked to Dr. Swenson regarding ATB.
[2018-09-05 19:54] VITALS: BP 132/67
--- NOTE | 2018-09-05 20:15 | NUR ---
RT NOTE PT RECEIVED ON [facility] VENT ON THE FOLLOWING NOTED SETTINGS. PT SUCTIONED: SMALL THIN YELLOW SECRETIONS. BREATHING TX GIVEN, NO ADVERSE REACTIONS NOTED. VENT IS PLUGGED INTO RED OUTLET. VENT ALARMS ARE ON AND AUDIBLE. AMBU BAG AND SPARE TRACH ARE AT BEDSIDE. WILL CONT TO MONITOR PT. Addendum: 09/05/18 at 2015 by NEAL HERNANDEZ RT Amended: Links added.
[2018-09-05] MEDS: VITAL AF 1.2 1,000 ML BOTTLE GT SCH (21:00)
[2018-09-05] MEDS: LATANOPROST EYE DROP 0.005% 2.5 ML BOTTLE EACHEYE SCH (22:27)
[2018-09-05] MEDS: ATORVASTATIN 40 MG TABLET GT SCH (22:27)
[2018-09-06 00:02] VITALS: BP 132/55
[2018-09-06] MEDS: SIMETHICONE 80 MG TAB.CHEW GT SCH ×4 (00:21→18:06)
[2018-09-06] MEDS: BLOOD SUGAR DIAGNOSTIC 1 EACH STRIP IN SCH ×4 (00:21→18:06)
[2018-09-06] MEDS: INSULIN REGULAR, HUMAN 100 UNIT/ML 10 ML VIAL SQ SCH ×4 (00:23→18:07)
[2018-09-06] MEDS: IV 1/2NS 1000 ML 1,000 ML IV SCH (01:01)
[2018-09-06] MEDS: IPRATROPIUM NEB FS 0.5 MG/2.5 ML AMPUL.NEB IH SCH ×4 (02:04→20:13)
[2018-09-06] MEDS: ALBUTEROL FS 2.5 MG/0.5 ML VIAL.NEB NEB SCH ×4 (02:04→20:13)
[2018-09-06 04:30] VITALS: BP 123/76
[2018-09-06] MEDS: OMEPRAZOLE 20 MG CAPSULE.DR GT SCH (05:43)
[2018-09-06] MEDS: METOCLOPRAMIDE HCL 10 MG/10 ML UDC GT SCH ×3 (05:43→21:22)
[2018-09-06 07:47] LABS: BASOPHILS % (AUTO) 0.3 % (0.0-2.0); HEMATOCRIT 26 % (39-51); HEMOGLOBIN 8.1 g/dL (13.5-17.5); LYMPHOCYTES # (AUTO) 0.9 /CMM (0.8-4.8); LYMPHOCYTES % (AUTO) 16.5 % (20.0-44.0); MEAN CORPUSCULAR HGB CONC 31 g/dl (31.0-36.0); MEAN CORPUSCULAR VOLUME 91 fL (80-96); MONOCYTES # (AUTO) 0.7 /CMM (0.1-1.30); MONOCYTES % (AUTO) 12.9 % (2.0-12.0); NEUTROPHILS # (AUTO) 3.6 /CMM (1.8-8.9); NEUTROPHILS % (AUTO) 68.3 % (43.0-81.0); PLATELET COUNT (AUTO) 106 /CMM (150-450); RED BLOOD CELL COUNT(AUTO) 2.83 MIL/uL (4.5-6.0); WHITE BLOOD COUNT (AUTO) 5.3 K/uL (4.3-11.0)
[2018-09-06] MEDS: ACETYLCYSTEINE 10% SOLN 400 MG/4 ML VIAL NEB SCH ×3 (07:55→23:03)
[2018-09-06 08:00] VITALS: BP 135/78
[2018-09-06 08:02] VITALS: BP 135/78
[2018-09-06 08:25] LABS: CALCIUM, SERUM 7.7 mg/dL (8.5-10.1); CARBON DIOXIDE 29 mmol/L (21-32); CHLORIDE 110 mmol/L (98-107); CREATININE 1.6 mg/dL (0.6-1.3); GLUCOSE 154 mg/dL (74-106); POTASSIUM 3.7 mmol/L (3.5-5.1); SODIUM SERUM 147 mmol/L (136-145)
[2018-09-06 08:27] LABS: UREA NITROGEN, BLOOD 84 mg/dL (7-18)
[2018-09-06] MEDS: HYDROGEN PEROXIDE 480 ML BOTTLE TP SCH ×2 (09:00→21:22)
[2018-09-06] MEDS: MINERAL OIL/PETROL OINT 396 GM JAR TP SCH ×2 (09:00→21:22)
[2018-09-06] MEDS: Z GUARD REMEDY 4 OZ OINT TP SCH ×2 (09:00→21:23)
[2018-09-06] MEDS: VITAMINS A AND D 56.7 GM TUBE TP SCH ×2 (09:00→21:23)
[2018-09-06] MEDS: DORZOLAMIDE OPTH 2% 10 ML BOTTLE EACHEYE SCH ×3 (09:28→17:00)
[2018-09-06] MEDS: FINASTERIDE (5 MG) 5 MG TABLET GT SCH (09:29)
[2018-09-06] MEDS: CHLORHEXIDINE GLUCONATE 15 ML UDC MM SCH ×2 (09:29→21:22)
[2018-09-06] MEDS: TAMSULOSIN 0.4 MG CAP.SR.24H PO SCH (09:29)
[2018-09-06] MEDS: CARVEDILOL 6.25 MG TABLET GT SCH ×2 (09:29→21:00)
[2018-09-06] MEDS: LACOSAMIDE ORAL SOLN 50 MG/5 ML UDC GT SCH ×2 (09:29→21:22)
[2018-09-06] MEDS: SPIRONOLACTONE 25 MG TABLET PO SCH (09:29)
[2018-09-06] MEDS: ASCORBIC ACID 500 MG TABLET GT SCH (09:29)
[2018-09-06] MEDS: LINAGLIPTIN 5 MG TABLET GT SCH (09:29)
[2018-09-06] MEDS: MULTIVITAMINS,THERAGRAN 1 UDTAB TABLET GT SCH (09:29)
[2018-09-06] MEDS: ACIDOPHILUS/BULGARICUS 1 EACH TAB.CHEW GT SCH (09:29)
[2018-09-06 12:00] VITALS: BP 123/68
--- NOTE | 2018-09-06 15:00 | NUR ---
Seen by INSULATOR CUTTER AND FORMER Nilam Pineda. Relayed lab results to her. 2 L of NS IV already completed. No new order.
--- NOTE | 2018-09-06 16:18 | NUR ---
RT NOTE PT RECEIVED ON [facility] VENT ON THE FOLLOWING NOTED SETTINGS. PT SUCTIONED: SMALL THIN YELLOW SECRETIONS. BREATHING TX GIVEN, NO ADVERSE REACTIONS NOTED. VENT IS PLUGGED INTO RED OUTLET. VENT ALARMS ARE ON AND AUDIBLE. AMBU BAG AND SPARE TRACH ARE AT BEDSIDE. WILL CONT TO MONITOR PT.
[2018-09-06] MEDS: VITAL AF 1.2 1,000 ML BOTTLE GT SCH (19:06)
[2018-09-06 20:24] VITALS: BP 138/75
[2018-09-06] MEDS: ATORVASTATIN 40 MG TABLET GT SCH (21:23)
[2018-09-06] MEDS: LATANOPROST EYE DROP 0.005% 2.5 ML BOTTLE EACHEYE SCH (21:23)
[2018-09-07] VITALS: BP 124/61
[2018-09-07] MEDS: BLOOD SUGAR DIAGNOSTIC 1 EACH STRIP IN SCH ×5 (00:35→23:43)
[2018-09-07] MEDS: SIMETHICONE 80 MG TAB.CHEW GT SCH ×5 (00:35→23:43)
[2018-09-07] MEDS: INSULIN REGULAR, HUMAN 100 UNIT/ML 10 ML VIAL SQ SCH ×5 (00:47→23:44)
[2018-09-07] MEDS: ALBUTEROL FS 2.5 MG/0.5 ML VIAL.NEB NEB SCH ×4 (02:12→20:02)
[2018-09-07] MEDS: IPRATROPIUM NEB FS 0.5 MG/2.5 ML AMPUL.NEB IH SCH ×4 (02:12→20:01)
[2018-09-07 04:00] VITALS: BP 128/67
[2018-09-07] MEDS: OMEPRAZOLE 20 MG CAPSULE.DR GT SCH (05:42)
[2018-09-07] MEDS: METOCLOPRAMIDE HCL 10 MG/10 ML UDC GT SCH ×3 (05:42→20:22)
[2018-09-07] MEDS: ACETYLCYSTEINE 10% SOLN 400 MG/4 ML VIAL NEB SCH ×3 (07:30→23:30)
[2018-09-07 07:38] VITALS: BP 135/79
--- NOTE | 2018-09-07 08:09 | NUR ---
RT RECEIVED PT TRACH VENT DEPENDENT W/ NOTED SETTINGS. MANAGER MEDICAL WRITING DONE AND TRACH IS SECURE. VENT ALARMS CHECKED AND AUDIBLE. VENT PLUGGED IN RED OUTLET. B/S JOSE RHONCHI, SX WITH MOD THK PALE YELLOW SECRETIONS. BREATHING TX GIVEN, NO ADV REACTION. AMBU BAG AND SPARE TRACH NOTED HOB. NO SOB OR RESP DISTRESS NOTED AT THIS TIME, WILL CONTINUE TO MONITOR T/O SHIFT.
[2018-09-07 08:30] VITALS: BP 135/79
[2018-09-07] MEDS: DORZOLAMIDE OPTH 2% 10 ML BOTTLE EACHEYE SCH ×3 (09:20→17:23)
[2018-09-07] MEDS: LINAGLIPTIN 5 MG TABLET GT SCH (09:21)
[2018-09-07] MEDS: MINERAL OIL/PETROL OINT 396 GM JAR TP SCH ×2 (09:21→20:22)
[2018-09-07] MEDS: MULTIVITAMINS,THERAGRAN 1 UDTAB TABLET GT SCH (09:21)
[2018-09-07] MEDS: ASCORBIC ACID 500 MG TABLET GT SCH (09:21)
[2018-09-07] MEDS: Z GUARD REMEDY 4 OZ OINT TP SCH ×2 (09:21→20:23)
[2018-09-07] MEDS: FINASTERIDE (5 MG) 5 MG TABLET GT SCH (09:21)
[2018-09-07] MEDS: VITAMINS A AND D 56.7 GM TUBE TP SCH ×2 (09:21→20:23)
[2018-09-07] MEDS: CHLORHEXIDINE GLUCONATE 15 ML UDC MM SCH ×2 (09:21→20:22)
[2018-09-07] MEDS: TAMSULOSIN 0.4 MG CAP.SR.24H PO SCH (09:21)
[2018-09-07] MEDS: HYDROGEN PEROXIDE 480 ML BOTTLE TP SCH ×2 (09:21→20:22)
[2018-09-07] MEDS: SPIRONOLACTONE 25 MG TABLET PO SCH (09:21)
[2018-09-07] MEDS: CARVEDILOL 6.25 MG TABLET GT SCH ×2 (09:21→20:22)
[2018-09-07] MEDS: LACOSAMIDE ORAL SOLN 50 MG/5 ML UDC GT SCH ×2 (09:21→20:22)
[2018-09-07] MEDS: ACIDOPHILUS/BULGARICUS 1 EACH TAB.CHEW GT SCH (09:21)
--- NOTE | 2018-09-07 09:39 | NUR ---
Residents son Dr. Jose Johns signed admission intake paperwork (patient rights acknowledgement, documentation of preferred intensity of care, conditions of admission, An Important Message from Medicare, [place] Standard Admission Agreement, and voluntary prior express consent form). The social organization professor educated the resident's son on advanced healthcare directives/conservatorship. Resident is not able to complete an advanced healthcare directive as he is not alert. Resident's son does not wish to pursue conservatorship at this time. Per the resident's son, he would like to change code status from full code to DNR (maximum treatment, no CPR). He is okay with blood transfusions, antibiotics, IV fluids, hydration/nutrition tube, transfer to acute hospital, oxygen, ventilator, and dialysis. Charge nurse informed and will obtain order to change code status.
--- NOTE | 2018-09-07 10:30 | NUR ---
Dr. Harpreet Parker notified of CBC and BMP result collected yesterday. He said he will review his labs and will order follow-up labs for Monday.
[2018-09-07] MEDS: VITAL AF 1.2 1,000 ML BOTTLE GT SCH ×2 (11:57→23:36)
--- NOTE | 2018-09-07 12:16 | NUR ---
The social worker assistant called the resident's son Jose oJhns and informed him of upcoming IDT meeting on September 14, 2018 from 12:30-1:30PM. He stated that he will be attending in person.
--- NOTE | 2018-09-07 12:30 | NUR ---
Informed Dr. Ramírez that patent's son change code status to DNR, asked if we can get an order. He said that he did not speak with the son and not comfortable giving the order. Endorsed to follow-up with Dr. Lugo.
[2018-09-07 12:47] VITALS: BP 135/69
--- NOTE | 2018-09-07 17:00 | NUR ---
Informed Dr. Johns (son) that Dr. Parker was made aware of CBC and BMP result done yesterday with new order for follow-up labs on Monday and stool for OB x 3.
--- NOTE | 2018-09-07 20:02 | NUR ---
RT Pt received trach'd and on [facility] vent w charted settings. Vent is plugged into red outlet. Alarms are on and audible w tha @ [employer]. Trach is secure and patent. Manager Cash done. Hhn tx given and pt sx'd w no adverse reactions. No respiratory distress noted at this time. Will continue to monitor. Addendum: 09/07/18 at 2151 by ADAMARIS ALCANTAR RT Amended: Links added.
[2018-09-07 20:26] VITALS: BP 147/84
[2018-09-07] MEDS: LATANOPROST EYE DROP 0.005% 2.5 ML BOTTLE EACHEYE SCH (22:05)
[2018-09-07] MEDS: ATORVASTATIN 40 MG TABLET GT SCH (22:05)
[2018-09-08 00:05] VITALS: BP 140/72
[2018-09-08] MEDS: ALBUTEROL FS 2.5 MG/0.5 ML VIAL.NEB NEB SCH ×4 (02:19→20:19)
[2018-09-08] MEDS: IPRATROPIUM NEB FS 0.5 MG/2.5 ML AMPUL.NEB IH SCH ×4 (02:19→20:19)
[2018-09-08 03:44] LABS: OCCULT BLOOD STOOL NEGATIVE (NEGATIVE)
[2018-09-08 04:09] VITALS: BP 133/68
[2018-09-08] MEDS: METOCLOPRAMIDE HCL 10 MG/10 ML UDC GT SCH ×3 (05:34→20:40)
[2018-09-08] MEDS: OMEPRAZOLE 20 MG CAPSULE.DR GT SCH (05:34)
[2018-09-08] MEDS: SIMETHICONE 80 MG TAB.CHEW GT SCH ×4 (05:34→23:36)
[2018-09-08] MEDS: BLOOD SUGAR DIAGNOSTIC 1 EACH STRIP IN SCH ×4 (05:53→23:36)
[2018-09-08] MEDS: INSULIN REGULAR, HUMAN 100 UNIT/ML 10 ML VIAL SQ SCH ×4 (05:54→23:38)
[2018-09-08 07:30] VITALS: BP 125/94
[2018-09-08] MEDS: ACETYLCYSTEINE 10% SOLN 400 MG/4 ML VIAL NEB SCH ×3 (07:33→23:46)
[2018-09-08 08:00] VITALS: BP 125/94
[2018-09-08] MEDS: DORZOLAMIDE OPTH 2% 10 ML BOTTLE EACHEYE SCH ×3 (08:57→17:34)
[2018-09-08] MEDS: SPIRONOLACTONE 25 MG TABLET PO SCH (08:58)
[2018-09-08] MEDS: FINASTERIDE (5 MG) 5 MG TABLET GT SCH (08:58)
[2018-09-08] MEDS: CHLORHEXIDINE GLUCONATE 15 ML UDC MM SCH ×2 (08:58→20:41)
[2018-09-08] MEDS: CARVEDILOL 6.25 MG TABLET GT SCH ×2 (08:58→20:40)
[2018-09-08] MEDS: TAMSULOSIN 0.4 MG CAP.SR.24H PO SCH (08:58)
[2018-09-08] MEDS: ASCORBIC ACID 500 MG TABLET GT SCH (08:58)
[2018-09-08] MEDS: LACOSAMIDE ORAL SOLN 50 MG/5 ML UDC GT SCH ×2 (08:58→20:40)
[2018-09-08] MEDS: ACIDOPHILUS/BULGARICUS 1 EACH TAB.CHEW GT SCH (08:58)
[2018-09-08] MEDS: LINAGLIPTIN 5 MG TABLET GT SCH (08:58)
[2018-09-08] MEDS: MULTIVITAMINS,THERAGRAN 1 UDTAB TABLET GT SCH (08:58)
[2018-09-08] MEDS: VITAMINS A AND D 56.7 GM TUBE TP SCH ×2 (09:00→20:41)
[2018-09-08] MEDS: MINERAL OIL/PETROL OINT 396 GM JAR TP SCH ×2 (09:00→20:41)
[2018-09-08] MEDS: HYDROGEN PEROXIDE 480 ML BOTTLE TP SCH ×2 (09:00→20:41)
[2018-09-08] MEDS: Z GUARD REMEDY 4 OZ OINT TP SCH ×2 (09:00→20:41)
[2018-09-08 10:05] LABS: OCCULT BLOOD STOOL NEGATIVE (NEGATIVE)
[2018-09-08 12:00] VITALS: BP 128/89
[2018-09-08] MEDS: VITAL AF 1.2 1,000 ML BOTTLE GT SCH (15:30)
[2018-09-08] MEDS: ALBUTEROL FS 2.5 MG/0.5 ML VIAL.NEB NEB PRN (15:44)
--- NOTE | 2018-09-08 16:11 | NUR ---
RT Pt received trach'd and on [facility] vent w charted settings. Vent is plugged into red outlet. Alarms are on and audible w ambubag @ hob. Trach is secure and patent. Rollway Man done. Hhn tx given and pt sx'd w no adverse reactions. No respiratory distress noted at this time. Will continue to monitor.
[2018-09-08 20:05] VITALS: BP 128/74
[2018-09-08] MEDS: LATANOPROST EYE DROP 0.005% 2.5 ML BOTTLE EACHEYE SCH (22:15)
[2018-09-08] MEDS: ATORVASTATIN 40 MG TABLET GT SCH (22:15)
[2018-09-09 00:42] VITALS: BP 131/75
[2018-09-09] MEDS: ALBUTEROL FS 2.5 MG/0.5 ML VIAL.NEB NEB SCH ×4 (02:12→20:02)
[2018-09-09] MEDS: IPRATROPIUM NEB FS 0.5 MG/2.5 ML AMPUL.NEB IH SCH ×4 (02:12→20:02)
[2018-09-09 04:05] VITALS: BP 132/78
[2018-09-09] MEDS: METOCLOPRAMIDE HCL 10 MG/10 ML UDC GT SCH ×3 (05:19→21:06)
[2018-09-09] MEDS: OMEPRAZOLE 20 MG CAPSULE.DR GT SCH (05:19)
[2018-09-09] MEDS: SIMETHICONE 80 MG TAB.CHEW GT SCH ×3 (05:19→17:36)
[2018-09-09] MEDS: VITAL AF 1.2 1,000 ML BOTTLE GT SCH ×2 (06:03→21:13)
[2018-09-09] MEDS: BLOOD SUGAR DIAGNOSTIC 1 EACH STRIP IN SCH ×3 (06:31→17:36)
[2018-09-09] MEDS: INSULIN REGULAR, HUMAN 100 UNIT/ML 10 ML VIAL SQ SCH ×3 (06:32→17:37)
[2018-09-09 07:29] VITALS: BP 130/73
[2018-09-09 08:00] VITALS: BP 130/73
[2018-09-09] MEDS: ACETYLCYSTEINE 10% SOLN 400 MG/4 ML VIAL NEB SCH ×2 (08:32→15:18)
[2018-09-09] MEDS: TAMSULOSIN 0.4 MG CAP.SR.24H PO SCH (08:54)
[2018-09-09] MEDS: CARVEDILOL 6.25 MG TABLET GT SCH ×2 (08:54→21:06)
[2018-09-09] MEDS: DORZOLAMIDE OPTH 2% 10 ML BOTTLE EACHEYE SCH ×3 (08:54→17:36)
[2018-09-09] MEDS: LINAGLIPTIN 5 MG TABLET GT SCH (08:54)
[2018-09-09] MEDS: LACOSAMIDE ORAL SOLN 50 MG/5 ML UDC GT SCH ×2 (08:54→21:07)
[2018-09-09] MEDS: CHLORHEXIDINE GLUCONATE 15 ML UDC MM SCH ×2 (08:54→21:07)
[2018-09-09] MEDS: ACIDOPHILUS/BULGARICUS 1 EACH TAB.CHEW GT SCH (08:54)
[2018-09-09] MEDS: MULTIVITAMINS,THERAGRAN 1 UDTAB TABLET GT SCH (08:54)
[2018-09-09] MEDS: ASCORBIC ACID 500 MG TABLET GT SCH (08:54)
[2018-09-09] MEDS: SPIRONOLACTONE 25 MG TABLET PO SCH (08:54)
[2018-09-09] MEDS: FINASTERIDE (5 MG) 5 MG TABLET GT SCH (08:54)
[2018-09-09] MEDS: Z GUARD REMEDY 4 OZ OINT TP SCH ×2 (09:50→21:07)
[2018-09-09] MEDS: MINERAL OIL/PETROL OINT 396 GM JAR TP SCH ×2 (09:50→21:07)
[2018-09-09] MEDS: HYDROGEN PEROXIDE 480 ML BOTTLE TP SCH ×2 (09:50→21:07)
[2018-09-09] MEDS: VITAMINS A AND D 56.7 GM TUBE TP SCH ×2 (09:50→21:07)
[2018-09-09 12:38] VITALS: BP 135/77
[2018-09-09 20:18] VITALS: BP 130/70
[2018-09-09] MEDS: LATANOPROST EYE DROP 0.005% 2.5 ML BOTTLE EACHEYE SCH (21:07)
[2018-09-09] MEDS: ATORVASTATIN 40 MG TABLET GT SCH (21:08)
[2018-09-10] MEDS: ACETYLCYSTEINE 10% SOLN 400 MG/4 ML VIAL NEB SCH ×4 (00:26→23:16)
[2018-09-10 00:41] VITALS: BP 131/75
[2018-09-10] MEDS: SIMETHICONE 80 MG TAB.CHEW GT SCH ×5 (00:43→23:28)
[2018-09-10] MEDS: BLOOD SUGAR DIAGNOSTIC 1 EACH STRIP IN SCH ×5 (00:43→23:28)
[2018-09-10] MEDS: INSULIN REGULAR, HUMAN 100 UNIT/ML 10 ML VIAL SQ SCH ×5 (00:45→23:29)
[2018-09-10] MEDS: ALBUTEROL FS 2.5 MG/0.5 ML VIAL.NEB NEB SCH ×4 (00:58→20:01)
[2018-09-10] MEDS: IPRATROPIUM NEB FS 0.5 MG/2.5 ML AMPUL.NEB IH SCH ×4 (00:58→20:01)
[2018-09-10 04:37] VITALS: BP 136/68
[2018-09-10] MEDS: METOCLOPRAMIDE HCL 10 MG/10 ML UDC GT SCH ×3 (05:22→21:24)
[2018-09-10] MEDS: OMEPRAZOLE 20 MG CAPSULE.DR GT SCH (05:23)
[2018-09-10 07:10] LABS: BASOPHILS % (AUTO) 0.2 % (0.0-2.0); EOSINOPHILS % (AUTO) 1.8 % (0.0-6.0); HEMATOCRIT 25 % (39-51); LYMPHOCYTES # (AUTO) 0.9 /CMM (0.8-4.8); LYMPHOCYTES % (AUTO) 14.2 % (20.0-44.0); MEAN CORPUSCULAR HGB CONC 32 g/dl (31.0-36.0); MEAN CORPUSCULAR VOLUME 89 fL (80-96); MONOCYTES # (AUTO) 0.9 /CMM (0.1-1.30); MONOCYTES % (AUTO) 13.6 % (2.0-12.0); NEUTROPHILS # (AUTO) 4.5 /CMM (1.8-8.9); NEUTROPHILS % (AUTO) 70.2 % (43.0-81.0); PLATELET COUNT (AUTO) 88 /CMM (150-450); RED BLOOD CELL COUNT(AUTO) 2.84 MIL/uL (4.5-6.0); WHITE BLOOD COUNT (AUTO) 6.4 K/uL (4.3-11.0)
[2018-09-10 07:34] LABS: ALBUMIN 1.9 g/dL (3.4-5.0); BILIRUBIN,DIRECT 0.4 mg/dL (0.0-0.2); BILIRUBIN,TOTAL 0.6 mg/dL (0.2-1.0); TOTAL PROTEIN, SERUM 7.8 g/dL (6.4-8.2)
[2018-09-10 07:37] LABS: FERRITIN 815 ng/mL (8-388)
[2018-09-10 07:40] VITALS: BP 122/68
[2018-09-10 07:40] LABS: IRON, SERUM 28 ug/dl (50-175); TOTAL IRON BINDING CAPACITY 235 ug/dl (250-450)
[2018-09-10 08:00] VITALS: BP 133/76
[2018-09-10 08:47] LABS: BAND % (MANUAL) 4 % (0.0-5.0); EOSINOPHILS % (MANUAL) 3 % (0-4); LYMPHOCYTES % (MANUAL) 14 % (16-48); MONOCYTES % (MANUAL) 14 % (0-11.0); NEUTROPHILS % (MANUAL) 65 (42-76)
[2018-09-10] MEDS: HYDROGEN PEROXIDE 480 ML BOTTLE TP SCH ×2 (09:00→21:24)
[2018-09-10] MEDS: MINERAL OIL/PETROL OINT 396 GM JAR TP SCH ×2 (09:00→21:24)
[2018-09-10] MEDS: Z GUARD REMEDY 4 OZ OINT TP SCH ×2 (09:00→21:24)
[2018-09-10] MEDS: VITAMINS A AND D 56.7 GM TUBE TP SCH ×2 (09:00→21:24)
[2018-09-10] MEDS: ASCORBIC ACID 500 MG TABLET GT SCH (09:16)
[2018-09-10] MEDS: DORZOLAMIDE OPTH 2% 10 ML BOTTLE EACHEYE SCH ×3 (09:16→17:22)
[2018-09-10] MEDS: ACIDOPHILUS/BULGARICUS 1 EACH TAB.CHEW GT SCH (09:16)
[2018-09-10] MEDS: CARVEDILOL 6.25 MG TABLET GT SCH ×2 (09:16→21:24)
[2018-09-10] MEDS: LINAGLIPTIN 5 MG TABLET GT SCH (09:16)
[2018-09-10] MEDS: FINASTERIDE (5 MG) 5 MG TABLET GT SCH (09:16)
[2018-09-10] MEDS: MULTIVITAMINS,THERAGRAN 1 UDTAB TABLET GT SCH (09:16)
[2018-09-10] MEDS: TAMSULOSIN 0.4 MG CAP.SR.24H PO SCH (09:16)
[2018-09-10] MEDS: CHLORHEXIDINE GLUCONATE 15 ML UDC MM SCH ×2 (09:16→21:24)
[2018-09-10] MEDS: LACOSAMIDE ORAL SOLN 50 MG/5 ML UDC GT SCH ×2 (09:16→21:24)
[2018-09-10] MEDS: SPIRONOLACTONE 25 MG TABLET PO SCH (09:16)
--- NOTE | 2018-09-10 09:40 | NUR ---
Left message for Dr Lugo that pt's son changed preferred intensity of care from full code to DNR with maximum treatment.
[2018-09-10 12:00] VITALS: BP 130/81
--- NOTE | 2018-09-10 12:28 | NUR ---
Notified Dr Parker that pt's lab results are now available. He said he will take a look at them. No new order at this time.
--- NOTE | 2018-09-10 13:29 | NUR ---
Seen by BRANDO Pineda. She ordered a follow-up CXR. Addendum: 09/10/18 at 1508 by MAGDA LOBO RN Relayed lab results to BRANDO Pineda.
[2018-09-10] MEDS: VITAL AF 1.2 1,000 ML BOTTLE GT SCH (14:15)
--- NOTE | 2018-09-10 18:24 | NUR ---
Pt's son visiting. He asked about lab results and showed results to him. He asked if there were any iron panels done in the past with which to compare the current results. Notified him there were no previous iron panel results found. He asked if there is a plan to wean the pt off the vent. Notified him that BRANDO Pineda saw pt today, talked about maybe doing some weaning trials and ordered a follow-up CXR for tomorrow.
[2018-09-10 20:11] VITALS: BP 124/67
--- NOTE | 2018-09-10 21:09 | NUR ---
RT Pt RECEIVED TRACHED ON [facility] VENT ON CHARTED SETTINGS. NO RESP DISTRESS NOTED. HHN TX GIVEN, NO ADVERSE REACTIONS NOTED. PT SUCTIONED. ALARMS ON AND AUDIBLE. AMBU BAG/BACK UP TRACH @ BEDSIDE. VENT CONNECTED TO RED OUTLET. WILL CONT TO MONITOR. Addendum: 09/10/18 at 2109 by BLADIMIR MEEK RT Amended: Links added.
[2018-09-10] MEDS: LATANOPROST EYE DROP 0.005% 2.5 ML BOTTLE EACHEYE SCH (21:25)
[2018-09-10] MEDS: ATORVASTATIN 40 MG TABLET GT SCH (21:25)
[2018-09-11] VITALS (7 sets, daily range): BP systolic 122–142; BP diastolic 61–85
[2018-09-11] MEDS: IPRATROPIUM NEB FS 0.5 MG/2.5 ML AMPUL.NEB IH SCH ×4 (01:48→20:15)
[2018-09-11] MEDS: ALBUTEROL FS 2.5 MG/0.5 ML VIAL.NEB NEB SCH ×4 (01:48→20:15)
[2018-09-11] MEDS: OMEPRAZOLE 20 MG CAPSULE.DR GT SCH (05:47)
[2018-09-11] MEDS: METOCLOPRAMIDE HCL 10 MG/10 ML UDC GT SCH ×3 (05:47→20:49)
[2018-09-11] MEDS: SIMETHICONE 80 MG TAB.CHEW GT SCH ×4 (05:47→23:24)
[2018-09-11] MEDS: VITAL AF 1.2 1,000 ML BOTTLE GT SCH (05:48)
[2018-09-11] MEDS: BLOOD SUGAR DIAGNOSTIC 1 EACH STRIP IN SCH ×4 (06:14→23:24)
[2018-09-11] MEDS: INSULIN REGULAR, HUMAN 100 UNIT/ML 10 ML VIAL SQ SCH ×4 (06:15→23:25)
[2018-09-11] MEDS: ACETYLCYSTEINE 10% SOLN 400 MG/4 ML VIAL NEB SCH ×3 (07:46→23:30)
[2018-09-11] MEDS: LACOSAMIDE ORAL SOLN 50 MG/5 ML UDC GT SCH (09:00)
[2018-09-11] MEDS: CARVEDILOL 6.25 MG TABLET GT SCH ×2 (09:00→20:49)
[2018-09-11] MEDS: DORZOLAMIDE OPTH 2% 10 ML BOTTLE EACHEYE SCH ×3 (09:00→17:49)
[2018-09-11] MEDS: LINAGLIPTIN 5 MG TABLET GT SCH (09:00)
[2018-09-11] MEDS: ACIDOPHILUS/BULGARICUS 1 EACH TAB.CHEW GT SCH (09:00)
[2018-09-11] MEDS: ASCORBIC ACID 500 MG TABLET GT SCH (09:00)
[2018-09-11] MEDS: Z GUARD REMEDY 4 OZ OINT TP SCH ×2 (09:00→20:50)
[2018-09-11] MEDS: CHLORHEXIDINE GLUCONATE 15 ML UDC MM SCH ×2 (09:00→20:49)
[2018-09-11] MEDS: MULTIVITAMINS,THERAGRAN 1 UDTAB TABLET GT SCH (09:00)
[2018-09-11] MEDS: MINERAL OIL/PETROL OINT 396 GM JAR TP SCH ×2 (09:00→20:49)
[2018-09-11] MEDS: TAMSULOSIN 0.4 MG CAP.SR.24H PO SCH (09:00)
[2018-09-11] MEDS: SPIRONOLACTONE 25 MG TABLET PO SCH (09:00)
[2018-09-11] MEDS: HYDROGEN PEROXIDE 480 ML BOTTLE TP SCH ×2 (09:00→20:50)
[2018-09-11] MEDS: FINASTERIDE (5 MG) 5 MG TABLET GT SCH (09:00)
[2018-09-11] MEDS: VITAMINS A AND D 56.7 GM TUBE TP SCH ×2 (09:00→20:50)
--- NOTE | 2018-09-11 09:50 | NUR ---
Seen by Dr Ramírez. Relayed CXR result to him. He ordered to place pt on CPAP PS 12 PEEP +5 and ABG in an hour. Notified pt's son.
[2018-09-11 11:17] LABS: ABG BASE EXCESS 1.9 mmol/L; ABG OXYGEN SATURATION 98.7 % (92.0-98.5); ABG PCO2 39.1 mmHg (35.0-45.0); ABG PH 7.442 (7.350-7.450); ABG PO2 149.7 mmHg (75.0-100.0); AaDO2 90.5 mmHg; COHb 0.4 % (0.5-1.5); MetHb 0.7 % (0.0-1.5); O2Hb 97.6 % (94.0-97.0); SITE, ABG Right Radial; VENT MODE, BG CPAP 5 PS 12
--- NOTE | 2018-09-11 11:35 | NUR ---
Relayed ABG result to Dr Ramírez. pH 7.442 pCO2 39.1 pO2 149.7 HCO3 26.1 BE 1.9. Pt tolerating CPAP well at this time, no respiratory distress noted. Dr Ramírez ordered to place pt on cool aerosol, no ABG needed.
--- NOTE | 2018-09-11 14:15 | NUR ---
Dr Lugo came to sign pt's new preferred intensity of care which states that pt is now DNR with maximum treatment. Notified Dr Lugo that pt has edema on his legs, scrotum, and abdomen. Dr Lugo ordered BMP for tomorrow.
--- NOTE | 2018-09-11 16:13 | NUR ---
Pt tolerating cool aerosol well. O2 sat 99% HR 70. No respiratory distress noted. Pt's son at bedside. Notified him that Dr Lugo ordered BMP and that he is aware of pt's edema. Pt's son requested to have compression stockings removed.
[2018-09-11] MEDS: LACOSAMIDE 50 MG TABLET GT SCH (20:49)
[2018-09-11] MEDS: LATANOPROST EYE DROP 0.005% 2.5 ML BOTTLE EACHEYE SCH (22:19)
[2018-09-11] MEDS: ATORVASTATIN 40 MG TABLET GT SCH (22:19)
[2018-09-12 00:06] VITALS: BP 122/69
[2018-09-12] MEDS: IPRATROPIUM NEB FS 0.5 MG/2.5 ML AMPUL.NEB IH SCH ×4 (01:49→20:05)
[2018-09-12] MEDS: ALBUTEROL FS 2.5 MG/0.5 ML VIAL.NEB NEB SCH ×4 (01:49→20:05)
[2018-09-12 04:27] VITALS: BP 131/68
[2018-09-12] MEDS: METOCLOPRAMIDE HCL 10 MG/10 ML UDC GT SCH ×3 (05:49→21:10)
[2018-09-12] MEDS: OMEPRAZOLE 20 MG CAPSULE.DR GT SCH (05:49)
[2018-09-12] MEDS: SIMETHICONE 80 MG TAB.CHEW GT SCH ×4 (05:49→23:52)
[2018-09-12] MEDS: BLOOD SUGAR DIAGNOSTIC 1 EACH STRIP IN SCH ×4 (05:59→23:52)
[2018-09-12] MEDS: INSULIN REGULAR, HUMAN 100 UNIT/ML 10 ML VIAL SQ SCH ×4 (06:01→23:53)
[2018-09-12 07:46] LABS: CALCIUM, SERUM 8.3 mg/dL (8.5-10.1); CARBON DIOXIDE 25 mmol/L (21-32); CHLORIDE 106 mmol/L (98-107); CREATININE 1.6 mg/dL (0.6-1.3); GLUCOSE 211 mg/dL (74-106); POTASSIUM 3.9 mmol/L (3.5-5.1); SODIUM SERUM 139 mmol/L (136-145)
[2018-09-12] MEDS: ACETYLCYSTEINE 10% SOLN 400 MG/4 ML VIAL NEB SCH (07:51)
[2018-09-12 07:53] LABS: UREA NITROGEN, BLOOD 95 mg/dL (7-18)
--- NOTE | 2018-09-12 08:05 | NUR ---
Notified Dr. Ramirez that patient's labs is available to his review, BUN 95, Creat 1.6. He said he will take a look at it.
[2018-09-12 08:06] VITALS: BP 150/79
--- NOTE | 2018-09-12 09:00 | NUR ---
Dr. Parker ordered Bumex 2mg, IV x 1 (diuretic for edema), BMP, CBC, MG and Phosphorus level. Orders noted and carried out. Notified Dr. Johns (son) of new orders, appreciated the call.
[2018-09-12] MEDS: DORZOLAMIDE OPTH 2% 10 ML BOTTLE EACHEYE SCH ×3 (09:05→17:19)
[2018-09-12] MEDS: CHLORHEXIDINE GLUCONATE 15 ML UDC MM SCH ×2 (09:06→21:10)
[2018-09-12] MEDS: CARVEDILOL 6.25 MG TABLET GT SCH ×2 (09:06→21:10)
[2018-09-12] MEDS: FINASTERIDE (5 MG) 5 MG TABLET GT SCH (09:06)
[2018-09-12] MEDS: ACIDOPHILUS/BULGARICUS 1 EACH TAB.CHEW GT SCH (09:06)
[2018-09-12] MEDS: VITAMINS A AND D 56.7 GM TUBE TP SCH ×2 (09:06→21:10)
[2018-09-12] MEDS: LACOSAMIDE 50 MG TABLET GT SCH ×2 (09:06→21:10)
[2018-09-12] MEDS: TAMSULOSIN 0.4 MG CAP.SR.24H PO SCH (09:06)
[2018-09-12] MEDS: ASCORBIC ACID 500 MG TABLET GT SCH (09:06)
[2018-09-12] MEDS: HYDROGEN PEROXIDE 480 ML BOTTLE TP SCH ×2 (09:06→21:10)
[2018-09-12] MEDS: Z GUARD REMEDY 4 OZ OINT TP SCH ×2 (09:06→21:10)
[2018-09-12] MEDS: MULTIVITAMINS,THERAGRAN 1 UDTAB TABLET GT SCH (09:06)
[2018-09-12] MEDS: LINAGLIPTIN 5 MG TABLET GT SCH (09:06)
[2018-09-12] MEDS: MINERAL OIL/PETROL OINT 396 GM JAR TP SCH ×2 (09:06→21:10)
[2018-09-12] MEDS: SPIRONOLACTONE 25 MG TABLET PO SCH (09:06)
[2018-09-12] MEDS: VITAL AF 1.2 1,000 ML BOTTLE GT SCH ×2 (09:17→22:26)
[2018-09-12] MEDS ORDERED: BUMETANIDE INJ 2 MG in IV NS 0.9% 32 ML IV ONE (10:00)
--- NOTE | 2018-09-12 10:06 | NUR ---
RT PATIENT REC'D TRACHED ON COOL AEROSOL. HHN TX GIVEN, NO ADVERSE REACTIONS NOTED. SX DONE, TRACH SECURED AND PATENT. PATIENT STABLE. NO DISTRESS NOTED. WATER LEVEL GOOD. WILL CONTINUE TO MONITOR Addendum: 09/12/18 at 1007 by RAYRAY KRUEGER RT Amended: Links added.
[2018-09-12 15:18] VITALS: BP 150/79
[2018-09-12 20:12] VITALS: BP 135/72
[2018-09-12] MEDS: ATORVASTATIN 40 MG TABLET GT SCH (21:10)
[2018-09-12] MEDS: LATANOPROST EYE DROP 0.005% 2.5 ML BOTTLE EACHEYE SCH (21:10)
[2018-09-13] VITALS (7 sets, daily range): BP systolic 125–143; BP diastolic 64–78
[2018-09-13] MEDS: ACETYLCYSTEINE 10% SOLN 400 MG/4 ML VIAL NEB SCH ×4 (01:25→23:18)
[2018-09-13] MEDS: ALBUTEROL FS 2.5 MG/0.5 ML VIAL.NEB NEB SCH ×4 (01:25→19:10)
[2018-09-13] MEDS: IPRATROPIUM NEB FS 0.5 MG/2.5 ML AMPUL.NEB IH SCH ×4 (01:25→19:10)
[2018-09-13] MEDS: METOCLOPRAMIDE HCL 10 MG/10 ML UDC GT SCH ×3 (05:30→21:19)
[2018-09-13] MEDS: SIMETHICONE 80 MG TAB.CHEW GT SCH ×3 (05:30→17:41)
[2018-09-13] MEDS: BLOOD SUGAR DIAGNOSTIC 1 EACH STRIP IN SCH ×4 (05:30→23:47)
[2018-09-13] MEDS: OMEPRAZOLE 20 MG CAPSULE.DR GT SCH (05:30)
[2018-09-13] MEDS: INSULIN REGULAR, HUMAN 100 UNIT/ML 10 ML VIAL SQ SCH ×4 (05:31→23:54)
--- NOTE | 2018-09-13 06:20 | NUR ---
Noted with streak of blood from the gastric residual.No active bleeding noted.Will continue to monitor and will endorse.
[2018-09-13 07:33] LABS: BASOPHILS % (AUTO) 0.2 % (0.0-2.0); EOSINOPHILS % (AUTO) 1.3 % (0.0-6.0); HEMATOCRIT 25 % (39-51); LYMPHOCYTES # (AUTO) 0.7 /CMM (0.8-4.8); MEAN CORPUSCULAR HGB CONC 32 g/dl (31.0-36.0); MEAN CORPUSCULAR VOLUME 90 fL (80-96); MONOCYTES # (AUTO) 0.7 /CMM (0.1-1.30); MONOCYTES % (AUTO) 10.6 % (2.0-12.0); NEUTROPHILS # (AUTO) 4.9 /CMM (1.8-8.9); NEUTROPHILS % (AUTO) 76.9 % (43.0-81.0); PLATELET COUNT (AUTO) 89 /CMM (150-450); WHITE BLOOD COUNT (AUTO) 6.4 K/uL (4.3-11.0)
[2018-09-13 07:44] LABS: CALCIUM, SERUM 8.1 mg/dL (8.5-10.1); CARBON DIOXIDE 27 mmol/L (21-32); CHLORIDE 104 mmol/L (98-107); CREATININE 1.6 mg/dL (0.6-1.3); GLUCOSE 221 mg/dL (74-106); MAGNESIUM 2.2 mg/dL (1.8-2.4); PHOSPHORUS 4.3 mg/dL (2.5-4.9); POTASSIUM 4.3 mmol/L (3.5-5.1); SODIUM SERUM 142 mmol/L (136-145)
[2018-09-13 07:47] LABS: UREA NITROGEN, BLOOD 91 mg/dL (7-18)
[2018-09-13 09:04] LABS: LYMPHOCYTES % (MANUAL) 6 % (16-48); MONOCYTES % (MANUAL) 7 % (0-11.0); NEUTROPHILS % (MANUAL) 87 (42-76)
[2018-09-13] MEDS: DORZOLAMIDE OPTH 2% 10 ML BOTTLE EACHEYE SCH ×3 (09:39→17:41)
[2018-09-13] MEDS: FINASTERIDE (5 MG) 5 MG TABLET GT SCH (09:40)
[2018-09-13] MEDS: MULTIVITAMINS,THERAGRAN 1 UDTAB TABLET GT SCH (09:40)
[2018-09-13] MEDS: CHLORHEXIDINE GLUCONATE 15 ML UDC MM SCH ×2 (09:40→21:35)
[2018-09-13] MEDS: VITAMINS A AND D 56.7 GM TUBE TP SCH ×2 (09:40→21:20)
[2018-09-13] MEDS: CARVEDILOL 6.25 MG TABLET GT SCH ×2 (09:40→21:19)
[2018-09-13] MEDS: HYDROGEN PEROXIDE 480 ML BOTTLE TP SCH ×2 (09:40→21:20)
[2018-09-13] MEDS: LACOSAMIDE 50 MG TABLET GT SCH ×2 (09:40→21:19)
[2018-09-13] MEDS: SPIRONOLACTONE 25 MG TABLET PO SCH (09:40)
[2018-09-13] MEDS: Z GUARD REMEDY 4 OZ OINT TP SCH ×2 (09:40→21:20)
[2018-09-13] MEDS: ACIDOPHILUS/BULGARICUS 1 EACH TAB.CHEW GT SCH (09:40)
[2018-09-13] MEDS: TAMSULOSIN 0.4 MG CAP.SR.24H PO SCH (09:40)
[2018-09-13] MEDS: MINERAL OIL/PETROL OINT 396 GM JAR TP SCH ×2 (09:40→21:20)
[2018-09-13] MEDS: LINAGLIPTIN 5 MG TABLET GT SCH (09:40)
[2018-09-13] MEDS: ASCORBIC ACID 500 MG TABLET GT SCH (09:40)
[2018-09-13] MEDS: ACETAMINOPHEN 650 MG/20.3 ML UDC GT PRN (10:02)
--- NOTE | 2018-09-13 16:07 | NUR ---
Seen by BRANDO Pineda. Relayed lab results to her. Notified her that pt had a streak of blood in his GI aspirate last night. No blood has been noted today. Pt not on blood thinners or Aspirin. Also notified her that pt has edema, a dose of Bumex was given yesterday. Asked BRANDO Pineda if pt's water flushes need to be adjusted and she said to keep current amount of water flushes. Addendum: 09/13/18 at 1623 by MAGDA LOBO RN Pt sometimes tachypneic, 30 breaths per minute. O2 sat stays at 100%, HR 60-70. Dr Ramírez aware of such episodes. No new order from BRANDO Pineda. Pt on cool aerosol.
[2018-09-13] MEDS: VITAL AF 1.2 1,000 ML BOTTLE GT SCH (17:43)
--- NOTE | 2018-09-13 20:11 | NUR ---
Patient received on 28% cool aerosol t-tube, tolerating with no sign of distress/SOB. Suctioned with lavage for minimal, thin, yellow secretions. Given in-line treatments with no adverse reactions. Ambu bag at bedside. Addendum: 09/13/18 at 2011 by CHUCKY OLIVAS RT Amended: Links added.
[2018-09-13] MEDS: LATANOPROST EYE DROP 0.005% 2.5 ML BOTTLE EACHEYE SCH (21:20)
[2018-09-13] MEDS: ATORVASTATIN 40 MG TABLET GT SCH (21:20)
[2018-09-14] VITALS (7 sets, daily range): BP systolic 136–143; BP diastolic 76–87
[2018-09-14] MEDS: hydrALAZINE HCL 25 MG TABLET GT PRN
[2018-09-14] MEDS: IPRATROPIUM NEB FS 0.5 MG/2.5 ML AMPUL.NEB IH SCH ×4 (01:44→19:48)
[2018-09-14] MEDS: ALBUTEROL FS 2.5 MG/0.5 ML VIAL.NEB NEB SCH ×4 (01:45→19:48)
[2018-09-14] MEDS: SIMETHICONE 80 MG TAB.CHEW GT SCH ×5 (05:14→23:47)
[2018-09-14] MEDS: OMEPRAZOLE 20 MG CAPSULE.DR GT SCH (05:14)
[2018-09-14] MEDS: METOCLOPRAMIDE HCL 10 MG/10 ML UDC GT SCH ×3 (05:14→21:26)
[2018-09-14] MEDS: BLOOD SUGAR DIAGNOSTIC 1 EACH STRIP IN SCH ×4 (05:32→23:47)
[2018-09-14] MEDS: INSULIN REGULAR, HUMAN 100 UNIT/ML 10 ML VIAL SQ SCH ×4 (05:34→23:49)
[2018-09-14] MEDS: VITAL AF 1.2 1,000 ML BOTTLE GT SCH (05:43)
[2018-09-14] MEDS: ACETYLCYSTEINE 10% SOLN 400 MG/4 ML VIAL NEB SCH ×3 (07:48→23:09)
[2018-09-14] MEDS: ACIDOPHILUS/BULGARICUS 1 EACH TAB.CHEW GT SCH (09:52)
[2018-09-14] MEDS: Z GUARD REMEDY 4 OZ OINT TP SCH ×2 (09:52→21:26)
[2018-09-14] MEDS: MULTIVITAMINS,THERAGRAN 1 UDTAB TABLET GT SCH (09:52)
[2018-09-14] MEDS: SPIRONOLACTONE 25 MG TABLET PO SCH (09:52)
[2018-09-14] MEDS: LACOSAMIDE 50 MG TABLET GT SCH ×2 (09:52→21:26)
[2018-09-14] MEDS: ASCORBIC ACID 500 MG TABLET GT SCH (09:52)
[2018-09-14] MEDS: HYDROGEN PEROXIDE 480 ML BOTTLE TP SCH ×2 (09:52→21:26)
[2018-09-14] MEDS: CARVEDILOL 6.25 MG TABLET GT SCH ×2 (09:52→21:26)
[2018-09-14] MEDS: CHLORHEXIDINE GLUCONATE 15 ML UDC MM SCH ×2 (09:52→21:26)
[2018-09-14] MEDS: TAMSULOSIN 0.4 MG CAP.SR.24H PO SCH (09:52)
[2018-09-14] MEDS: LINAGLIPTIN 5 MG TABLET GT SCH (09:52)
[2018-09-14] MEDS: FINASTERIDE (5 MG) 5 MG TABLET GT SCH (09:52)
[2018-09-14] MEDS: MINERAL OIL/PETROL OINT 396 GM JAR TP SCH ×2 (09:52→21:26)
[2018-09-14] MEDS: DORZOLAMIDE OPTH 2% 10 ML BOTTLE EACHEYE SCH ×3 (09:52→17:39)
[2018-09-14] MEDS: VITAMINS A AND D 56.7 GM TUBE TP SCH ×2 (09:53→21:26)
--- NOTE | 2018-09-14 10:36 | NUR ---
Dr. Lugo passed by and said that he spoke with patient's son mentioning that patient has penile discharges. He said that he ordered to send specimen for culture and he will come by later on. Informed MD that latest BMP shows BUN still high at [address] Harpreet Parker ordered Bumex 2mg IV the other day. He said to give Bumex 1 mg. x 1 today. Patient still very edematous especially in the extremities. Dr. Johns (son) notified of new order.
[2018-09-14] MEDS ORDERED: BUMETANIDE INJ 0.25 MG/ML VIAL IV ONE (11:30)
--- NOTE | 2018-09-14 13:35 | NUR ---
INTERDISCIPLINARY PLAN OF CARE CONFERENCE was held today. Resident's son Nat participated today's IDT meeting. Dr. Ramírez and the interdisciplinary team discussed the current plan of care in detail. Current orders as well as treatments and medications were reviewed. Patient completed ATB for pneumonia. Nepro consult was ordered by Dr. Lugo due to elevated BUN. Dr. Parker has been following up and reviewing his labs, recently ordered Bumex 2 mg IV due to BUN 95. Code status has been changed from Full Code to DNR with maximum treatment. Resident has been tolerating cool aerosol since he was weaned off from ventilator. Patient with episode of tachypneic but O2 sat 98-100%, HR 60-70. No new order given. No other concerns from family except he is requesting to get him OOB now that he is on cool aerosol. Endorsed.
[2018-09-14] MEDS: IPRATROPIUM NEB FS 0.5 MG/2.5 ML AMPUL.NEB IH PRN (15:01)
--- NOTE | 2018-09-14 20:11 | NUR ---
BP 142/82,Bumex 1mg given slow IV push for increased BUN.Son at bedside and aware.Will continue to monitor.
--- NOTE | 2018-09-14 21:13 | NUR ---
PT RCHAYNES'D ON COOL AEROSOL WITH CHARTED SETTINGS. HHN TX GIVEN AND NO ADVERSE REACTION NOTED. SX DONE. PT TRACH PATENT AND SECURE. NO RESPIRATORY DISTRESS NOTED AT THIS TIME. AMBU BAG AT BEDSIDE. WILL CONTINUE TO MONITOR. Addendum: 09/14/18 at 2114 by TITO GARCES RT Amended: Links added.
[2018-09-14] MEDS: LATANOPROST EYE DROP 0.005% 2.5 ML BOTTLE EACHEYE SCH (21:26)
[2018-09-14] MEDS: ATORVASTATIN 40 MG TABLET GT SCH (21:26)
[2018-09-15 00:15] VITALS: BP 135/79
[2018-09-15] MEDS: ALBUTEROL FS 2.5 MG/0.5 ML VIAL.NEB NEB SCH ×4 (01:11→19:38)
[2018-09-15] MEDS: IPRATROPIUM NEB FS 0.5 MG/2.5 ML AMPUL.NEB IH SCH ×4 (01:11→19:38)
[2018-09-15 04:19] VITALS: BP 135/78
[2018-09-15] MEDS: METOCLOPRAMIDE HCL 10 MG/10 ML UDC GT SCH ×3 (05:10→21:20)
[2018-09-15] MEDS: OMEPRAZOLE 20 MG CAPSULE.DR GT SCH (05:10)
[2018-09-15] MEDS: SIMETHICONE 80 MG TAB.CHEW GT SCH ×4 (05:10→23:20)
[2018-09-15] MEDS: BLOOD SUGAR DIAGNOSTIC 1 EACH STRIP IN SCH ×4 (05:32→23:20)
[2018-09-15] MEDS: INSULIN REGULAR, HUMAN 100 UNIT/ML 10 ML VIAL SQ SCH ×4 (05:34→23:21)
[2018-09-15] MEDS: VITAL AF 1.2 1,000 ML BOTTLE GT SCH ×2 (06:00→19:07)
[2018-09-15] MEDS: BISACODYL SUPP (10 MG) 10 MG/SUPP.RECT SUPP.RECT RC PRN (07:06)
[2018-09-15 07:35] VITALS: BP 149/82
[2018-09-15 08:00] VITALS: BP 149/82
[2018-09-15] MEDS: ACETYLCYSTEINE 10% SOLN 400 MG/4 ML VIAL NEB SCH ×3 (08:09→23:39)
[2018-09-15] MEDS: DORZOLAMIDE OPTH 2% 10 ML BOTTLE EACHEYE SCH ×3 (09:35→17:35)
[2018-09-15] MEDS: HYDROGEN PEROXIDE 480 ML BOTTLE TP SCH ×2 (09:36→21:20)
[2018-09-15] MEDS: CARVEDILOL 6.25 MG TABLET GT SCH ×2 (09:36→21:20)
[2018-09-15] MEDS: CHLORHEXIDINE GLUCONATE 15 ML UDC MM SCH ×2 (09:36→21:20)
[2018-09-15] MEDS: ACIDOPHILUS/BULGARICUS 1 EACH TAB.CHEW GT SCH (09:36)
[2018-09-15] MEDS: Z GUARD REMEDY 4 OZ OINT TP SCH ×2 (09:36→21:21)
[2018-09-15] MEDS: LINAGLIPTIN 5 MG TABLET GT SCH (09:36)
[2018-09-15] MEDS: FINASTERIDE (5 MG) 5 MG TABLET GT SCH (09:36)
[2018-09-15] MEDS: TAMSULOSIN 0.4 MG CAP.SR.24H PO SCH (09:36)
[2018-09-15] MEDS: ASCORBIC ACID 500 MG TABLET GT SCH (09:36)
[2018-09-15] MEDS: SPIRONOLACTONE 25 MG TABLET PO SCH (09:36)
[2018-09-15] MEDS: MULTIVITAMINS,THERAGRAN 1 UDTAB TABLET GT SCH (09:36)
[2018-09-15] MEDS: MINERAL OIL/PETROL OINT 396 GM JAR TP SCH ×2 (09:36→21:20)
[2018-09-15] MEDS: VITAMINS A AND D 56.7 GM TUBE TP SCH ×2 (09:36→21:21)
[2018-09-15] MEDS: LACOSAMIDE 50 MG TABLET GT SCH ×2 (09:36→21:20)
[2018-09-15 12:34] VITALS: BP 144/78
[2018-09-15] MEDS: ATORVASTATIN 40 MG TABLET GT SCH (21:21)
[2018-09-15] MEDS: LATANOPROST EYE DROP 0.005% 2.5 ML BOTTLE EACHEYE SCH (21:21)
[2018-09-16 00:16] VITALS: BP 153/85
[2018-09-16] MEDS: IPRATROPIUM NEB FS 0.5 MG/2.5 ML AMPUL.NEB IH SCH ×4 (01:39→20:19)
[2018-09-16] MEDS: ALBUTEROL FS 2.5 MG/0.5 ML VIAL.NEB NEB SCH ×4 (01:39→20:19)
[2018-09-16 04:19] VITALS: BP 129/73
[2018-09-16] MEDS: BLOOD SUGAR DIAGNOSTIC 1 EACH STRIP IN SCH ×3 (05:27→17:45)
[2018-09-16] MEDS: SIMETHICONE 80 MG TAB.CHEW GT SCH ×3 (05:27→17:45)
[2018-09-16] MEDS: METOCLOPRAMIDE HCL 10 MG/10 ML UDC GT SCH ×3 (05:27→21:33)
[2018-09-16] MEDS: OMEPRAZOLE 20 MG CAPSULE.DR GT SCH (05:27)
[2018-09-16] MEDS: INSULIN REGULAR, HUMAN 100 UNIT/ML 10 ML VIAL SQ SCH ×3 (05:29→17:46)
[2018-09-16] MEDS: ACETYLCYSTEINE 10% SOLN 400 MG/4 ML VIAL NEB SCH ×3 (07:34→23:30)
[2018-09-16 07:55] VITALS: BP 104/67
[2018-09-16] MEDS: DORZOLAMIDE OPTH 2% 10 ML BOTTLE EACHEYE SCH ×3 (08:51→16:19)
[2018-09-16] MEDS: ASCORBIC ACID 500 MG TABLET GT SCH (08:52)
[2018-09-16] MEDS: LACOSAMIDE 50 MG TABLET GT SCH ×2 (08:52→21:33)
[2018-09-16] MEDS: CHLORHEXIDINE GLUCONATE 15 ML UDC MM SCH ×2 (08:52→21:33)
[2018-09-16] MEDS: FINASTERIDE (5 MG) 5 MG TABLET GT SCH (08:52)
[2018-09-16] MEDS: ACIDOPHILUS/BULGARICUS 1 EACH TAB.CHEW GT SCH (08:52)
[2018-09-16] MEDS: CARVEDILOL 6.25 MG TABLET GT SCH ×2 (08:52→21:33)
[2018-09-16] MEDS: SPIRONOLACTONE 25 MG TABLET PO SCH (08:52)
[2018-09-16] MEDS: MULTIVITAMINS,THERAGRAN 1 UDTAB TABLET GT SCH (08:52)
[2018-09-16] MEDS: TAMSULOSIN 0.4 MG CAP.SR.24H PO SCH (08:52)
[2018-09-16] MEDS: LINAGLIPTIN 5 MG TABLET GT SCH (08:52)
[2018-09-16] MEDS: MINERAL OIL/PETROL OINT 396 GM JAR TP SCH ×2 (09:00→21:33)
[2018-09-16] MEDS: VITAMINS A AND D 56.7 GM TUBE TP SCH ×2 (09:00→21:33)
[2018-09-16] MEDS: Z GUARD REMEDY 4 OZ OINT TP SCH ×2 (09:00→21:33)
[2018-09-16] MEDS: HYDROGEN PEROXIDE 480 ML BOTTLE TP SCH ×2 (09:00→21:33)
--- NOTE | 2018-09-16 10:52 | NUR ---
Seen and examined by Dr. Lugo with new order for repeat BMP on 09/17/18. Relayed result of genital culture.
[2018-09-16] MEDS: VITAL AF 1.2 1,000 ML BOTTLE GT SCH (14:52)
[2018-09-16 15:14] VITALS: BP 115/70
--- NOTE | 2018-09-16 18:18 | NUR ---
Seen and examined by BRANDO Collier no new order given. Will continue to monitor. Still noted with gen. edema.
[2018-09-16 20:22] VITALS: BP 146/94
[2018-09-16] MEDS: LATANOPROST EYE DROP 0.005% 2.5 ML BOTTLE EACHEYE SCH (21:33)
[2018-09-16] MEDS: ATORVASTATIN 40 MG TABLET GT SCH (21:34)
[2018-09-17] MEDS: BLOOD SUGAR DIAGNOSTIC 1 EACH STRIP IN SCH ×4 (00:08→17:22)
[2018-09-17] MEDS: SIMETHICONE 80 MG TAB.CHEW GT SCH ×4 (00:08→17:22)
[2018-09-17] MEDS: INSULIN REGULAR, HUMAN 100 UNIT/ML 10 ML VIAL SQ SCH ×4 (00:09→17:26)
[2018-09-17 00:10] VITALS: BP 132/74
[2018-09-17] MEDS: IPRATROPIUM NEB FS 0.5 MG/2.5 ML AMPUL.NEB IH SCH ×4 (02:28→20:19)
[2018-09-17] MEDS: ALBUTEROL FS 2.5 MG/0.5 ML VIAL.NEB NEB SCH ×4 (02:28→20:19)
[2018-09-17 04:58] VITALS: BP 129/76
[2018-09-17] MEDS: METOCLOPRAMIDE HCL 10 MG/10 ML UDC GT SCH ×3 (05:45→21:45)
[2018-09-17] MEDS: OMEPRAZOLE 20 MG CAPSULE.DR GT SCH (05:45)
[2018-09-17] MEDS: ACETYLCYSTEINE 10% SOLN 400 MG/4 ML VIAL NEB SCH ×3 (07:35→23:30)
[2018-09-17 07:38] VITALS: BP 149/93
[2018-09-17 07:46] LABS: CALCIUM, SERUM 8.7 mg/dL (8.5-10.1); CARBON DIOXIDE 28 mmol/L (21-32); CHLORIDE 105 mmol/L (98-107); CREATININE 1.6 mg/dL (0.6-1.3); GLUCOSE 203 mg/dL (74-106); POTASSIUM 4.5 mmol/L (3.5-5.1); SODIUM SERUM 141 mmol/L (136-145)
[2018-09-17 07:47] LABS: UREA NITROGEN, BLOOD 105 mg/dL (7-18)
[2018-09-17] MEDS: VITAMINS A AND D 56.7 GM TUBE TP SCH ×2 (09:00→21:46)
[2018-09-17] MEDS: HYDROGEN PEROXIDE 480 ML BOTTLE TP SCH ×2 (09:00→21:46)
[2018-09-17] MEDS: Z GUARD REMEDY 4 OZ OINT TP SCH ×2 (09:00→21:46)
[2018-09-17] MEDS: MINERAL OIL/PETROL OINT 396 GM JAR TP SCH ×2 (09:00→21:46)
--- NOTE | 2018-09-17 09:00 | NUR ---
Seen by Dr Ramírez. Notified him that BUN 105. Dr Ramírez aware of edema. No new order at this time.
[2018-09-17] MEDS: ASCORBIC ACID 500 MG TABLET GT SCH (09:22)
[2018-09-17] MEDS: FINASTERIDE (5 MG) 5 MG TABLET GT SCH (09:22)
[2018-09-17] MEDS: CHLORHEXIDINE GLUCONATE 15 ML UDC MM SCH ×2 (09:22→21:45)
[2018-09-17] MEDS: MULTIVITAMINS,THERAGRAN 1 UDTAB TABLET GT SCH (09:22)
[2018-09-17] MEDS: ACIDOPHILUS/BULGARICUS 1 EACH TAB.CHEW GT SCH (09:22)
[2018-09-17] MEDS: CARVEDILOL 6.25 MG TABLET GT SCH ×2 (09:22→21:45)
[2018-09-17] MEDS: DORZOLAMIDE OPTH 2% 10 ML BOTTLE EACHEYE SCH ×3 (09:22→17:22)
[2018-09-17] MEDS: LINAGLIPTIN 5 MG TABLET GT SCH (09:22)
[2018-09-17] MEDS: LACOSAMIDE 50 MG TABLET GT SCH ×2 (09:22→21:45)
[2018-09-17] MEDS: SPIRONOLACTONE 25 MG TABLET PO SCH (09:23)
[2018-09-17] MEDS: TAMSULOSIN 0.4 MG CAP.SR.24H PO SCH (09:23)
[2018-09-17 12:00] VITALS: BP 143/84
--- NOTE | 2018-09-17 13:09 | NUR ---
Called Dr Parker's office and left message for Dr Parker regarding BUN [address] Lugo was also informed of lab results.
[2018-09-17] MEDS ORDERED: FUROSEMIDE 40 MG/4 ML VIAL IV ONE (13:30)
--- NOTE | 2018-09-17 14:32 | NUR ---
Dr Parker ordered to DC Aldactone, give Lasix 40 mg IV x 1, do CBC BMP MG Phos in AM. Notified pt's son Dr Johns.
--- NOTE | 2018-09-17 15:23 | NUR ---
BP 141/84 HR 62 Administered Lasix 40 mg IV x 1. Peripheral IV line placed on left hand. Addendum: 09/17/18 at 1843 by MAGDA LOBO RN IV line placed on right hand (not left).
[2018-09-17] MEDS: IV D5/ 0.9% NACL 1,000 ML IV PRN (16:00)
[2018-09-17 18:00] VITALS: BP 138/85
--- NOTE | 2018-09-17 18:00 | NUR ---
Received order from Dr Ramírez to give D5NS at 60 mL/hr IV and do BMP tomorrow. Notified pt's son Dr Johns.
[2018-09-17 19:49] VITALS: BP 152/78
[2018-09-17] MEDS: LATANOPROST EYE DROP 0.005% 2.5 ML BOTTLE EACHEYE SCH (21:46)
[2018-09-17] MEDS: ATORVASTATIN 40 MG TABLET GT SCH (21:46)
[2018-09-18 00:15] VITALS: BP 126/74
[2018-09-18] MEDS: BLOOD SUGAR DIAGNOSTIC 1 EACH STRIP IN SCH ×5 (00:16→23:39)
[2018-09-18] MEDS: SIMETHICONE 80 MG TAB.CHEW GT SCH ×5 (00:16→23:39)
[2018-09-18] MEDS: INSULIN REGULAR, HUMAN 100 UNIT/ML 10 ML VIAL SQ SCH ×5 (00:17→23:40)
[2018-09-18] MEDS: ALBUTEROL FS 2.5 MG/0.5 ML VIAL.NEB NEB SCH ×4 (01:20→19:53)
[2018-09-18] MEDS: IPRATROPIUM NEB FS 0.5 MG/2.5 ML AMPUL.NEB IH SCH ×4 (01:20→19:53)
[2018-09-18 04:13] VITALS: BP 132/76
[2018-09-18] MEDS: METOCLOPRAMIDE HCL 10 MG/10 ML UDC GT SCH ×3 (05:00→21:05)
[2018-09-18] MEDS: OMEPRAZOLE 20 MG CAPSULE.DR GT SCH (06:13)
[2018-09-18 07:41] VITALS: BP 126/66
[2018-09-18 07:55] LABS: BASOPHILS % (AUTO) 0.2 % (0.0-2.0); HEMATOCRIT 27 % (39-51); HEMOGLOBIN 8.5 g/dL (13.5-17.5); LYMPHOCYTES # (AUTO) 0.6 /CMM (0.8-4.8); LYMPHOCYTES % (AUTO) 12.9 % (20.0-44.0); MEAN CORPUSCULAR HGB CONC 32 g/dl (31.0-36.0); MEAN CORPUSCULAR VOLUME 90 fL (80-96); MONOCYTES # (AUTO) 0.5 /CMM (0.1-1.30); MONOCYTES % (AUTO) 10.2 % (2.0-12.0); NEUTROPHILS # (AUTO) 3.5 /CMM (1.8-8.9); NEUTROPHILS % (AUTO) 74.7 % (43.0-81.0); PLATELET COUNT (AUTO) 105 /CMM (150-450); RED BLOOD CELL COUNT(AUTO) 2.97 MIL/uL (4.5-6.0); WHITE BLOOD COUNT (AUTO) 4.6 K/uL (4.3-11.0)
[2018-09-18 08:00] VITALS: BP 126/66
[2018-09-18] MEDS: ACETYLCYSTEINE 10% SOLN 400 MG/4 ML VIAL NEB SCH ×3 (08:01→23:57)
[2018-09-18 08:11] LABS: CALCIUM, SERUM 8.8 mg/dL (8.5-10.1); CARBON DIOXIDE 28 mmol/L (21-32); CHLORIDE 107 mmol/L (98-107); CREATININE 1.4 mg/dL (0.6-1.3); GLUCOSE 196 mg/dL (74-106); MAGNESIUM 2.2 mg/dL (1.8-2.4); PHOSPHORUS 4.6 mg/dL (2.5-4.9); POTASSIUM 4.4 mmol/L (3.5-5.1); SODIUM SERUM 144 mmol/L (136-145)
[2018-09-18 08:16] LABS: UREA NITROGEN, BLOOD 99 mg/dL (7-18)
[2018-09-18] MEDS: MULTIVITAMINS,THERAGRAN 1 UDTAB TABLET GT SCH (08:59)
[2018-09-18] MEDS: ACIDOPHILUS/BULGARICUS 1 EACH TAB.CHEW GT SCH (08:59)
[2018-09-18] MEDS: FINASTERIDE (5 MG) 5 MG TABLET GT SCH (08:59)
[2018-09-18] MEDS: LINAGLIPTIN 5 MG TABLET GT SCH (08:59)
[2018-09-18] MEDS: MINERAL OIL/PETROL OINT 396 GM JAR TP SCH ×2 (09:00→21:05)
[2018-09-18] MEDS: VITAMINS A AND D 56.7 GM TUBE TP SCH ×2 (09:00→21:05)
[2018-09-18] MEDS: CARVEDILOL 6.25 MG TABLET GT SCH ×2 (09:00→21:05)
[2018-09-18] MEDS: IV D5/ 0.9% NACL 1,000 ML IV PRN (09:00)
[2018-09-18] MEDS: Z GUARD REMEDY 4 OZ OINT TP SCH ×2 (09:00→21:05)
[2018-09-18] MEDS: HYDROGEN PEROXIDE 480 ML BOTTLE TP SCH ×2 (09:00→21:05)
--- NOTE | 2018-09-18 09:00 | NUR ---
Seen by Dr Ramírez today. Notified him that pt's BUN decreased from 105 to 99 and Cr from 1.6 to 1.4. He said to continue IV hydration.
[2018-09-18] MEDS: ASCORBIC ACID 500 MG TABLET GT SCH (09:01)
[2018-09-18] MEDS: DORZOLAMIDE OPTH 2% 10 ML BOTTLE EACHEYE SCH ×3 (09:01→17:55)
[2018-09-18] MEDS: LACOSAMIDE 50 MG TABLET GT SCH ×2 (09:01→21:05)
[2018-09-18] MEDS: CHLORHEXIDINE GLUCONATE 15 ML UDC MM SCH ×2 (09:01→21:05)
[2018-09-18] MEDS: TAMSULOSIN 0.4 MG CAP.SR.24H PO SCH (09:01)
--- NOTE | 2018-09-18 10:45 | NUR ---
Dr Parker ordered to give Bumex 3 mg/12 mL IV to run at 20 mL/hr for 3 hours and do CBC BMP Mg Phos tomorrow. Notified pt's son Dr Johns.
[2018-09-18] MEDS ORDERED: BUMETANIDE INJ 3 MG in IV NS 0.9% 48 ML IV ONE (12:00)
--- NOTE | 2018-09-18 15:29 | NUR ---
Checked pt's blood pressure prior to administering Bumetanide. BP 159/88 HR 65 T 98.2 F R 18 O2 sat 99%.
--- NOTE | 2018-09-18 18:05 | NUR ---
Completed dose of Bumex 3 mg IV. Pt's BP 148/81 HR 65. Pt's son at bedside. Addendum: 09/18/18 at 1821 by MAGDA LOBO RN Pt had and additional 275 mL of urine output from the time Bumex was started to the time it completed.
[2018-09-18 18:39] VITALS: BP 148/84
[2018-09-18] MEDS: VITAL AF 1.2 1,000 ML BOTTLE GT SCH (19:04)
[2018-09-18 20:21] VITALS: BP 145/81
[2018-09-18] MEDS: LATANOPROST EYE DROP 0.005% 2.5 ML BOTTLE EACHEYE SCH (21:05)
[2018-09-18] MEDS: ATORVASTATIN 40 MG TABLET GT SCH (21:05)
[2018-09-19 00:08] VITALS: BP 127/72
[2018-09-19] MEDS: ALBUTEROL FS 2.5 MG/0.5 ML VIAL.NEB NEB SCH ×4 (02:27→20:29)
[2018-09-19] MEDS: IPRATROPIUM NEB FS 0.5 MG/2.5 ML AMPUL.NEB IH SCH ×4 (02:27→20:29)
[2018-09-19] MEDS: IV D5/ 0.9% NACL 1,000 ML IV PRN (02:30)
[2018-09-19 05:33] VITALS: BP 130/74
[2018-09-19] MEDS: SIMETHICONE 80 MG TAB.CHEW GT SCH ×3 (05:48→17:14)
[2018-09-19] MEDS: METOCLOPRAMIDE HCL 10 MG/10 ML UDC GT SCH ×3 (05:48→20:56)
[2018-09-19] MEDS: BLOOD SUGAR DIAGNOSTIC 1 EACH STRIP IN SCH ×3 (05:48→17:14)
[2018-09-19] MEDS: OMEPRAZOLE 20 MG CAPSULE.DR GT SCH (05:48)
[2018-09-19] MEDS: INSULIN REGULAR, HUMAN 100 UNIT/ML 10 ML VIAL SQ SCH ×3 (05:49→17:15)
[2018-09-19] MEDS: ACETYLCYSTEINE 10% SOLN 400 MG/4 ML VIAL NEB SCH ×2 (07:41→16:01)
[2018-09-19 07:48] LABS: BASOPHILS % (AUTO) 0.1 % (0.0-2.0); EOSINOPHILS % (AUTO) 2.3 % (0.0-6.0); HEMATOCRIT 27 % (39-51); HEMOGLOBIN 8.4 g/dL (13.5-17.5); LYMPHOCYTES # (AUTO) 0.5 /CMM (0.8-4.8); LYMPHOCYTES % (AUTO) 11.2 % (20.0-44.0); MEAN CORPUSCULAR HGB CONC 31 g/dl (31.0-36.0); MEAN CORPUSCULAR VOLUME 91 fL (80-96); MONOCYTES # (AUTO) 0.4 /CMM (0.1-1.30); MONOCYTES % (AUTO) 9.4 % (2.0-12.0); NEUTROPHILS # (AUTO) 3.6 /CMM (1.8-8.9); PLATELET COUNT (AUTO) 110 /CMM (150-450); RED BLOOD CELL COUNT(AUTO) 2.98 MIL/uL (4.5-6.0); WHITE BLOOD COUNT (AUTO) 4.6 K/uL (4.3-11.0)
[2018-09-19 07:54] VITALS: BP 148/85
[2018-09-19 08:10] LABS: CALCIUM, SERUM 8.7 mg/dL (8.5-10.1); CARBON DIOXIDE 30 mmol/L (21-32); CHLORIDE 108 mmol/L (98-107); CREATININE 1.4 mg/dL (0.6-1.3); GLUCOSE 234 mg/dL (74-106); PHOSPHORUS 4.4 mg/dL (2.5-4.9); POTASSIUM 4.5 mmol/L (3.5-5.1); SODIUM SERUM 144 mmol/L (136-145)
[2018-09-19 08:15] LABS: UREA NITROGEN, BLOOD 97 mg/dL (7-18)
[2018-09-19] MEDS: VITAMINS A AND D 56.7 GM TUBE TP SCH ×2 (09:00→20:56)
[2018-09-19] MEDS: Z GUARD REMEDY 4 OZ OINT TP SCH ×2 (09:00→20:56)
[2018-09-19] MEDS: MINERAL OIL/PETROL OINT 396 GM JAR TP SCH ×2 (09:00→20:56)
[2018-09-19] MEDS: HYDROGEN PEROXIDE 480 ML BOTTLE TP SCH ×2 (09:00→20:56)
[2018-09-19] MEDS: DORZOLAMIDE OPTH 2% 10 ML BOTTLE EACHEYE SCH ×3 (09:40→17:14)
[2018-09-19] MEDS: ASCORBIC ACID 500 MG TABLET GT SCH (09:55)
[2018-09-19] MEDS: FINASTERIDE (5 MG) 5 MG TABLET GT SCH (09:55)
[2018-09-19] MEDS: CARVEDILOL 6.25 MG TABLET GT SCH ×2 (09:55→20:56)
[2018-09-19] MEDS: ACIDOPHILUS/BULGARICUS 1 EACH TAB.CHEW GT SCH (09:55)
[2018-09-19] MEDS: TAMSULOSIN 0.4 MG CAP.SR.24H PO SCH (09:55)
[2018-09-19] MEDS: MULTIVITAMINS,THERAGRAN 1 UDTAB TABLET GT SCH (09:55)
[2018-09-19] MEDS: LACOSAMIDE 50 MG TABLET GT SCH ×2 (09:55→20:56)
[2018-09-19] MEDS: LINAGLIPTIN 5 MG TABLET GT SCH (09:55)
[2018-09-19] MEDS: CHLORHEXIDINE GLUCONATE 15 ML UDC MM SCH ×2 (09:55→20:56)
[2018-09-19] MEDS: ACETAMINOPHEN 650 MG/SUPP.RECT RC PRN (09:56)
[2018-09-19] MEDS: ACETAMINOPHEN 650 MG/20.3 ML UDC GT PRN (10:20)
--- NOTE | 2018-09-19 10:24 | NUR ---
Received a call from Dr. Johns asking to put patient in the gerichair, explained to Dr. Johns that patient is having loose BM and it is not advisable to put him in a chair long. He was also informed of the swollen scrotum and LE, he asked if FC has been discontinued. No order to discontinue F/C at this time. Resident up in the osiris chair with GT feeding on, connected to cool aerosol and IVF of D5NS at 60 cc/hr on going.
--- NOTE | 2018-09-19 10:28 | NUR ---
Dr. Harpreet Parker seen BMP and CBC result for today, informed him that patient is very swollen especially lower extremities and scrotum. NNO given at this time.
--- NOTE | 2018-09-19 11:05 | NUR ---
Dr. Lugo came reviewed patient's labs for today, informed him of the swollen LE and scrotum. New order to DC IVF, DC F/C and give diuretic Bumex 3mg as ordered yesterday. Orders faxed to [facility] and [facility] pharmacy.
[2018-09-19 12:00] VITALS: BP 149/72
[2018-09-19] MEDS: VITAL AF 1.2 1,000 ML BOTTLE GT SCH (13:13)
[2018-09-19] MEDS ORDERED: BUMETANIDE INJ 3 MG in IV NS 0.9% 48 ML IV ONE (14:30)
[2018-09-19 19:53] VITALS: BP 152/86
--- NOTE | 2018-09-19 20:39 | NUR ---
PT RCVD TRACH'D ON COOL AEROSOL 28% 5L. BREATHING TX GIVEN AND NO ADVERSE REACTION NOTED. SX DONE. NO RESPIRATORY DISTRESS NOTED AT THIS TIME. AMBU BAG AT BEDSIDE. WILL CONTINUE TO MONITOR.
[2018-09-19] MEDS: ATORVASTATIN 40 MG TABLET GT SCH (21:12)
[2018-09-19] MEDS: LATANOPROST EYE DROP 0.005% 2.5 ML BOTTLE EACHEYE SCH (21:12)
[2018-09-20] VITALS (7 sets, daily range): BP systolic 129–157; BP diastolic 69–90
[2018-09-20] MEDS: SIMETHICONE 80 MG TAB.CHEW GT SCH ×5 (00:06→23:49)
[2018-09-20] MEDS: BLOOD SUGAR DIAGNOSTIC 1 EACH STRIP IN SCH ×5 (00:06→23:49)
[2018-09-20] MEDS: INSULIN REGULAR, HUMAN 100 UNIT/ML 10 ML VIAL SQ SCH ×5 (00:08→23:51)
[2018-09-20] MEDS: ACETYLCYSTEINE 10% SOLN 400 MG/4 ML VIAL NEB SCH ×3 (00:31→15:53)
[2018-09-20] MEDS: ALBUTEROL FS 2.5 MG/0.5 ML VIAL.NEB NEB SCH ×4 (00:32→20:27)
[2018-09-20] MEDS: IPRATROPIUM NEB FS 0.5 MG/2.5 ML AMPUL.NEB IH SCH ×4 (00:32→20:27)
[2018-09-20] MEDS: METOCLOPRAMIDE HCL 10 MG/10 ML UDC GT SCH ×3 (05:47→20:45)
[2018-09-20] MEDS: OMEPRAZOLE 20 MG CAPSULE.DR GT SCH (05:47)
[2018-09-20] MEDS: VITAL AF 1.2 1,000 ML BOTTLE GT SCH ×2 (05:54→22:33)
[2018-09-20 07:41] LABS: CALCIUM, SERUM 8.8 mg/dL (8.5-10.1); CARBON DIOXIDE 31 mmol/L (21-32); CHLORIDE 108 mmol/L (98-107); CREATININE 1.4 mg/dL (0.6-1.3); GLUCOSE 216 mg/dL (74-106); POTASSIUM 4.3 mmol/L (3.5-5.1); SODIUM SERUM 145 mmol/L (136-145)
[2018-09-20 07:45] LABS: UREA NITROGEN, BLOOD 91 mg/dL (7-18)
[2018-09-20] MEDS: HYDROGEN PEROXIDE 480 ML BOTTLE TP SCH ×2 (09:37→21:56)
[2018-09-20] MEDS: CARVEDILOL 6.25 MG TABLET GT SCH ×2 (09:37→20:45)
[2018-09-20] MEDS: MULTIVITAMINS,THERAGRAN 1 UDTAB TABLET GT SCH (09:37)
[2018-09-20] MEDS: ACIDOPHILUS/BULGARICUS 1 EACH TAB.CHEW GT SCH (09:37)
[2018-09-20] MEDS: MINERAL OIL/PETROL OINT 396 GM JAR TP SCH ×2 (09:37→20:45)
[2018-09-20] MEDS: LINAGLIPTIN 5 MG TABLET GT SCH (09:37)
[2018-09-20] MEDS: TAMSULOSIN 0.4 MG CAP.SR.24H PO SCH (09:37)
[2018-09-20] MEDS: FINASTERIDE (5 MG) 5 MG TABLET GT SCH (09:37)
[2018-09-20] MEDS: ASCORBIC ACID 500 MG TABLET GT SCH (09:37)
[2018-09-20] MEDS: CHLORHEXIDINE GLUCONATE 15 ML UDC MM SCH ×2 (09:37→20:45)
[2018-09-20] MEDS: LACOSAMIDE 50 MG TABLET GT SCH ×2 (09:37→20:45)
[2018-09-20] MEDS: DORZOLAMIDE OPTH 2% 10 ML BOTTLE EACHEYE SCH ×3 (09:37→17:00)
[2018-09-20] MEDS: VITAMINS A AND D 56.7 GM TUBE TP SCH ×2 (09:38→21:56)
[2018-09-20] MEDS: Z GUARD REMEDY 4 OZ OINT TP SCH ×2 (09:38→21:56)
--- NOTE | 2018-09-20 20:38 | NUR ---
PT RCVD TRACH SHILEY 6 ON COOL AEROSOL 28% 5L. BREATHING TX GIVEN AND NO ADVERSE REACTION NOTED. SX DONE. NO RESPIRATORY DISTRESS NOTED AT THIS TIME. AMBU BAG AT BEDSIDE. WILL CONTINUE TO MONITOR.
[2018-09-20] MEDS: ATORVASTATIN 40 MG TABLET GT SCH (21:56)
[2018-09-20] MEDS: LATANOPROST EYE DROP 0.005% 2.5 ML BOTTLE EACHEYE SCH (21:56)
[2018-09-21 00:20] VITALS: BP 135/90
[2018-09-21] MEDS: IPRATROPIUM NEB FS 0.5 MG/2.5 ML AMPUL.NEB IH SCH ×4 (00:33→20:10)
[2018-09-21] MEDS: ALBUTEROL FS 2.5 MG/0.5 ML VIAL.NEB NEB SCH ×4 (00:33→20:10)
[2018-09-21] MEDS: ACETYLCYSTEINE 10% SOLN 400 MG/4 ML VIAL NEB SCH ×4 (00:33→23:30)
[2018-09-21 04:20] VITALS: BP 140/78
[2018-09-21] MEDS: METOCLOPRAMIDE HCL 10 MG/10 ML UDC GT SCH ×3 (05:29→21:08)
[2018-09-21] MEDS: BLOOD SUGAR DIAGNOSTIC 1 EACH STRIP IN SCH ×4 (05:29→23:57)
[2018-09-21] MEDS: OMEPRAZOLE 20 MG CAPSULE.DR GT SCH (05:29)
[2018-09-21] MEDS: SIMETHICONE 80 MG TAB.CHEW GT SCH ×4 (05:29→23:57)
[2018-09-21] MEDS: INSULIN REGULAR, HUMAN 100 UNIT/ML 10 ML VIAL SQ SCH ×4 (05:30→23:58)
[2018-09-21 07:30] VITALS: BP 165/96
[2018-09-21 08:00] VITALS: BP 148/95
[2018-09-21] MEDS: TAMSULOSIN 0.4 MG CAP.SR.24H PO SCH (09:44)
[2018-09-21] MEDS: MULTIVITAMINS,THERAGRAN 1 UDTAB TABLET GT SCH (09:44)
[2018-09-21] MEDS: CHLORHEXIDINE GLUCONATE 15 ML UDC MM SCH ×2 (09:44→21:08)
[2018-09-21] MEDS: LINAGLIPTIN 5 MG TABLET GT SCH (09:44)
[2018-09-21] MEDS: CARVEDILOL 6.25 MG TABLET GT SCH ×2 (09:44→21:07)
[2018-09-21] MEDS: ASCORBIC ACID 500 MG TABLET GT SCH (09:44)
[2018-09-21] MEDS: FINASTERIDE (5 MG) 5 MG TABLET GT SCH (09:44)
[2018-09-21] MEDS: ACIDOPHILUS/BULGARICUS 1 EACH TAB.CHEW GT SCH (09:44)
[2018-09-21] MEDS: DORZOLAMIDE OPTH 2% 10 ML BOTTLE EACHEYE SCH ×3 (09:44→17:47)
[2018-09-21] MEDS: LACOSAMIDE 50 MG TABLET GT SCH ×2 (09:44→21:08)
[2018-09-21] MEDS: VITAMINS A AND D 56.7 GM TUBE TP SCH ×2 (09:45→21:09)
[2018-09-21] MEDS: NEOMY SULF/BACITRAC ZN/POLY 15 GM TUBE TP SCH ×2 (09:45→21:08)
[2018-09-21] MEDS: HYDROGEN PEROXIDE 480 ML BOTTLE TP SCH ×2 (09:45→21:08)
[2018-09-21] MEDS: MINERAL OIL/PETROL OINT 396 GM JAR TP SCH ×2 (09:45→21:08)
[2018-09-21] MEDS: Z GUARD REMEDY 4 OZ OINT TP SCH ×2 (09:45→21:09)
[2018-09-21 12:00] VITALS: BP 145/91
--- NOTE | 2018-09-21 15:50 | NUR ---
Seen and examined by Dr. Lugo, made aware of most recent BMP result. MD assessed patient's swollen extremities and scrotum. Patient with shallow breathing at 28-32 breaths/ min. O2 sat. 100%. New order given to give Bumex 3mg infusion at 20cc/hr daily x 5 day. Repeat BMP on Monday and Monday. Resident's son Dr. Johns informed. [facility] notified of new order.
[2018-09-21] MEDS ORDERED: BUMETANIDE INJ 3 MG in IV NS 0.9% 48 ML IV SCH (17:00)
--- NOTE | 2018-09-21 20:20 | NUR ---
PT RCVD TRACH SHILEY 6 ON COOL AEROSOL 28% 5L. BREATHING TX GIVEN AND NO ADVERSE REACTION NOTED. SUCTIONED MODERATE AMOUNT OF YELLOW/DAILEY THICK SECRETIONS WITH PINK TINGED.. NO RESPIRATORY DISTRESS NOTED AT THIS TIME. AMBU BAG AT BEDSIDE. WILL CONTINUE TO MONITOR.
[2018-09-21] MEDS: LATANOPROST EYE DROP 0.005% 2.5 ML BOTTLE EACHEYE SCH (21:09)
[2018-09-21] MEDS: ATORVASTATIN 40 MG TABLET GT SCH (21:09)
[2018-09-22 00:20] VITALS: BP 134/77
[2018-09-22] MEDS: IPRATROPIUM NEB FS 0.5 MG/2.5 ML AMPUL.NEB IH SCH ×4 (00:32→20:09)
[2018-09-22] MEDS: ALBUTEROL FS 2.5 MG/0.5 ML VIAL.NEB NEB SCH ×4 (00:32→20:09)
[2018-09-22] MEDS: BUMETANIDE INJ 3 MG in IV NS 0.9% 48 ML IV SCH (02:05)
[2018-09-22 04:20] VITALS: BP 136/72
[2018-09-22] MEDS: OMEPRAZOLE 20 MG CAPSULE.DR GT SCH (05:47)
[2018-09-22] MEDS: BLOOD SUGAR DIAGNOSTIC 1 EACH STRIP IN SCH ×3 (05:47→17:55)
[2018-09-22] MEDS: METOCLOPRAMIDE HCL 10 MG/10 ML UDC GT SCH ×3 (05:47→21:35)
[2018-09-22] MEDS: SIMETHICONE 80 MG TAB.CHEW GT SCH ×3 (05:47→17:55)
[2018-09-22] MEDS: INSULIN REGULAR, HUMAN 100 UNIT/ML 10 ML VIAL SQ SCH ×3 (05:49→17:55)
[2018-09-22 07:22] VITALS: BP 144/86
[2018-09-22 08:00] VITALS: BP 144/86
[2018-09-22] MEDS: ACETYLCYSTEINE 10% SOLN 400 MG/4 ML VIAL NEB SCH ×3 (09:07→23:26)
[2018-09-22] MEDS: LINAGLIPTIN 5 MG TABLET GT SCH (09:31)
[2018-09-22] MEDS: MINERAL OIL/PETROL OINT 396 GM JAR TP SCH ×2 (09:31→21:35)
[2018-09-22] MEDS: MULTIVITAMINS,THERAGRAN 1 UDTAB TABLET GT SCH (09:31)
[2018-09-22] MEDS: LACOSAMIDE 50 MG TABLET GT SCH ×2 (09:31→21:35)
[2018-09-22] MEDS: HYDROGEN PEROXIDE 480 ML BOTTLE TP SCH ×2 (09:31→21:35)
[2018-09-22] MEDS: CARVEDILOL 6.25 MG TABLET GT SCH ×2 (09:31→21:35)
[2018-09-22] MEDS: ASCORBIC ACID 500 MG TABLET GT SCH (09:31)
[2018-09-22] MEDS: FINASTERIDE (5 MG) 5 MG TABLET GT SCH (09:31)
[2018-09-22] MEDS: DORZOLAMIDE OPTH 2% 10 ML BOTTLE EACHEYE SCH ×3 (09:31→17:55)
[2018-09-22] MEDS: ACIDOPHILUS/BULGARICUS 1 EACH TAB.CHEW GT SCH (09:31)
[2018-09-22] MEDS: NEOMY SULF/BACITRAC ZN/POLY 15 GM TUBE TP SCH ×2 (09:31→21:35)
[2018-09-22] MEDS: TAMSULOSIN 0.4 MG CAP.SR.24H PO SCH (09:31)
[2018-09-22] MEDS: Z GUARD REMEDY 4 OZ OINT TP SCH ×2 (09:31→21:35)
[2018-09-22] MEDS: CHLORHEXIDINE GLUCONATE 15 ML UDC MM SCH ×2 (09:31→21:35)
[2018-09-22] MEDS: VITAMINS A AND D 56.7 GM TUBE TP SCH ×2 (09:32→21:35)
[2018-09-22 12:31] VITALS: BP 147/84
--- NOTE | 2018-09-22 17:46 | NUR ---
Seen and examined by PICK UP DRIVER Arlyn Hanks no new order given. Will continue with plan of care. No s/s of resp. distress. Afebrile. Still noted with gen. edema. Up in osiris chair today. Visited by son.
[2018-09-22 19:47] VITALS: BP 155/93
[2018-09-22] MEDS: ATORVASTATIN 40 MG TABLET GT SCH (21:35)
[2018-09-22] MEDS: LATANOPROST EYE DROP 0.005% 2.5 ML BOTTLE EACHEYE SCH (21:35)
[2018-09-23] VITALS: BP 148/76
[2018-09-23] MEDS: SIMETHICONE 80 MG TAB.CHEW GT SCH ×4 (00:11→17:51)
[2018-09-23] MEDS: BLOOD SUGAR DIAGNOSTIC 1 EACH STRIP IN SCH ×4 (00:11→18:13)
[2018-09-23] MEDS: INSULIN REGULAR, HUMAN 100 UNIT/ML 10 ML VIAL SQ SCH ×4 (00:12→18:17)
[2018-09-23] MEDS: IPRATROPIUM NEB FS 0.5 MG/2.5 ML AMPUL.NEB IH SCH ×4 (01:42→19:47)
[2018-09-23] MEDS: ALBUTEROL FS 2.5 MG/0.5 ML VIAL.NEB NEB SCH ×4 (01:42→19:47)
[2018-09-23] MEDS: BUMETANIDE INJ 3 MG in IV NS 0.9% 48 ML IV SCH (02:00)
[2018-09-23 04:00] VITALS: BP 137/77
[2018-09-23] MEDS: METOCLOPRAMIDE HCL 10 MG/10 ML UDC GT SCH ×3 (05:23→21:22)
[2018-09-23] MEDS: OMEPRAZOLE 20 MG CAPSULE.DR GT SCH (05:23)
[2018-09-23 08:03] VITALS: BP 152/86
[2018-09-23] MEDS: ACETYLCYSTEINE 10% SOLN 400 MG/4 ML VIAL NEB SCH ×3 (08:08→23:33)
[2018-09-23 08:19] LABS: CARBON DIOXIDE 30 mmol/L (21-32); CHLORIDE 107 mmol/L (98-107); CREATININE 1.4 mg/dL (0.6-1.3); GLUCOSE 215 mg/dL (74-106); POTASSIUM 4.5 mmol/L (3.5-5.1); SODIUM SERUM 143 mmol/L (136-145)
[2018-09-23 08:21] LABS: UREA NITROGEN, BLOOD 89 mg/dL (7-18)
[2018-09-23] MEDS: ASCORBIC ACID 500 MG TABLET GT SCH (09:00)
[2018-09-23] MEDS: LACOSAMIDE 50 MG TABLET GT SCH ×2 (09:00→21:22)
[2018-09-23] MEDS: VITAMINS A AND D 56.7 GM TUBE TP SCH ×2 (09:00→21:22)
[2018-09-23] MEDS: CARVEDILOL 6.25 MG TABLET GT SCH ×2 (09:00→21:22)
[2018-09-23] MEDS: ACIDOPHILUS/BULGARICUS 1 EACH TAB.CHEW GT SCH (09:00)
[2018-09-23] MEDS: HYDROGEN PEROXIDE 480 ML BOTTLE TP SCH ×2 (09:00→21:22)
[2018-09-23] MEDS: MULTIVITAMINS,THERAGRAN 1 UDTAB TABLET GT SCH (09:00)
[2018-09-23] MEDS: MINERAL OIL/PETROL OINT 396 GM JAR TP SCH ×2 (09:00→21:22)
[2018-09-23] MEDS: Z GUARD REMEDY 4 OZ OINT TP SCH ×2 (09:00→21:22)
[2018-09-23] MEDS: LINAGLIPTIN 5 MG TABLET GT SCH (09:00)
[2018-09-23] MEDS: TAMSULOSIN 0.4 MG CAP.SR.24H PO SCH (09:00)
[2018-09-23] MEDS: NEOMY SULF/BACITRAC ZN/POLY 15 GM TUBE TP SCH ×2 (09:00→21:22)
[2018-09-23] MEDS: CHLORHEXIDINE GLUCONATE 15 ML UDC MM SCH ×2 (09:00→21:22)
[2018-09-23] MEDS: DORZOLAMIDE OPTH 2% 10 ML BOTTLE EACHEYE SCH ×3 (09:00→17:07)
[2018-09-23] MEDS: FINASTERIDE (5 MG) 5 MG TABLET GT SCH (09:00)
--- NOTE | 2018-09-23 10:00 | NUR ---
Notified Dr. Lugo of BMP result, BUN 89 improved from 09/20 BUN 91. Resident urinating 2-3x per shift. NNO given, Dr. Lugo said to continue with diuretic Bumex 3mg. IV daily and repeat BMP on Monday. Resident up in osiris-chair, well tolerated.
--- NOTE | 2018-09-23 13:20 | NUR ---
Left a message to Dr. Lugo patient with episode of bradycardia, HR 42-55 and baseline usually 65-78. At this time patient's HR 64, O2 sat 98%.
[2018-09-23 15:28] VITALS: BP 152/86
--- NOTE | 2018-09-23 16:32 | NUR ---
Dr. Johns (son) at bedside and made aware of BMP result and per Dr. Lugo to continue with Bumex 3mg IV daily and repeat BMP on Monday.
[2018-09-23 19:55] VITALS: BP 149/83
[2018-09-23] MEDS: LATANOPROST EYE DROP 0.005% 2.5 ML BOTTLE EACHEYE SCH (21:22)
[2018-09-23] MEDS: ATORVASTATIN 40 MG TABLET GT SCH (21:23)
[2018-09-24] MEDS: BLOOD SUGAR DIAGNOSTIC 1 EACH STRIP IN SCH ×4 (00:09→17:33)
[2018-09-24] MEDS: SIMETHICONE 80 MG TAB.CHEW GT SCH ×4 (00:09→17:13)
[2018-09-24] MEDS: INSULIN REGULAR, HUMAN 100 UNIT/ML 10 ML VIAL SQ SCH ×4 (00:09→17:37)
[2018-09-24 00:15] VITALS: BP 148/80
[2018-09-24] MEDS: ALBUTEROL FS 2.5 MG/0.5 ML VIAL.NEB NEB SCH ×4 (01:25→19:50)
[2018-09-24] MEDS: IPRATROPIUM NEB FS 0.5 MG/2.5 ML AMPUL.NEB IH SCH ×4 (01:25→19:50)
[2018-09-24] MEDS: BUMETANIDE INJ 3 MG in IV NS 0.9% 48 ML IV SCH ×2 (02:00→20:00)
--- NOTE | 2018-09-24 02:25 | NUR ---
PT RCHAYNES'D ON COOL AEROSOL WITH CHARTED SETTINGS. HHN TX GIVEN WITH NO ADVERSE REACTION NOTED. SX DONE. PT TRACH PATENT AND SECURE. NO RESPIRATORY DISTRESS NOTED AT THIS TIME. AMBU BAG AT BEDSIDE. WILL CONTINUE TO MONITOR. Addendum: 09/24/18 at 0225 by TITO GARCES RT Amended: Links added.
[2018-09-24 05:47] VITALS: BP 144/79
[2018-09-24] MEDS: METOCLOPRAMIDE HCL 10 MG/10 ML UDC GT SCH ×3 (05:49→21:29)
[2018-09-24] MEDS: OMEPRAZOLE 20 MG CAPSULE.DR GT SCH (06:34)
[2018-09-24] MEDS: ACETYLCYSTEINE 10% SOLN 400 MG/4 ML VIAL NEB SCH ×3 (07:52→23:30)
[2018-09-24 08:00] VITALS: BP 152/87
[2018-09-24] MEDS: DORZOLAMIDE OPTH 2% 10 ML BOTTLE EACHEYE SCH ×3 (08:28→16:23)
[2018-09-24] MEDS: FINASTERIDE (5 MG) 5 MG TABLET GT SCH (08:30)
[2018-09-24] MEDS: CARVEDILOL 6.25 MG TABLET GT SCH ×2 (08:30→21:29)
[2018-09-24] MEDS: HYDROGEN PEROXIDE 480 ML BOTTLE TP SCH ×2 (08:31→21:29)
[2018-09-24] MEDS: LINAGLIPTIN 5 MG TABLET GT SCH (08:31)
[2018-09-24] MEDS: TAMSULOSIN 0.4 MG CAP.SR.24H PO SCH (08:31)
[2018-09-24] MEDS: MINERAL OIL/PETROL OINT 396 GM JAR TP SCH ×2 (08:32→21:29)
[2018-09-24] MEDS: ASCORBIC ACID 500 MG TABLET GT SCH (08:32)
[2018-09-24] MEDS: Z GUARD REMEDY 4 OZ OINT TP SCH ×2 (08:32→21:29)
[2018-09-24] MEDS: VITAMINS A AND D 56.7 GM TUBE TP SCH ×2 (08:32→21:29)
[2018-09-24] MEDS: NEOMY SULF/BACITRAC ZN/POLY 15 GM TUBE TP SCH ×2 (08:32→21:29)
[2018-09-24] MEDS: CHLORHEXIDINE GLUCONATE 15 ML UDC MM SCH ×2 (08:33→21:29)
[2018-09-24] MEDS: ACIDOPHILUS/BULGARICUS 1 EACH TAB.CHEW GT SCH (08:35)
[2018-09-24] MEDS: LACOSAMIDE 50 MG TABLET GT SCH ×2 (09:00→21:29)
[2018-09-24] MEDS: MULTIVITAMINS,THERAGRAN 1 UDTAB TABLET GT SCH (10:11)
[2018-09-24 10:30] VITALS: BP 152/87
[2018-09-24 12:48] VITALS: BP 152/87
[2018-09-24] MEDS: VITAL AF 1.2 1,000 ML BOTTLE GT SCH (14:06)
--- NOTE | 2018-09-24 16:09 | NUR ---
SW spoke to resident's son on the phone communicating upcoming IDT mtg this MondaySeptember 29 at 12:30. Son will be attending the mtg.
[2018-09-24 20:58] VITALS: BP 146/90
[2018-09-24] MEDS: LATANOPROST EYE DROP 0.005% 2.5 ML BOTTLE EACHEYE SCH (21:29)
[2018-09-24] MEDS: ATORVASTATIN 40 MG TABLET GT SCH (21:29)
[2018-09-24] MEDS: HYDROCODONE/APAP 5/325MG 1 EACH TABLET GT PRN (22:05)
[2018-09-25] MEDS: SIMETHICONE 80 MG TAB.CHEW GT SCH ×3 (00:10→12:27)
[2018-09-25] MEDS: BLOOD SUGAR DIAGNOSTIC 1 EACH STRIP IN SCH ×4 (00:10→17:31)
[2018-09-25] MEDS: INSULIN REGULAR, HUMAN 100 UNIT/ML 10 ML VIAL SQ SCH ×4 (00:11→17:32)
[2018-09-25 00:25] VITALS: BP 142/74
[2018-09-25] MEDS: ALBUTEROL FS 2.5 MG/0.5 ML VIAL.NEB NEB SCH ×4 (01:14→19:49)
[2018-09-25] MEDS: IPRATROPIUM NEB FS 0.5 MG/2.5 ML AMPUL.NEB IH SCH ×4 (01:14→19:49)
[2018-09-25] MEDS: METOCLOPRAMIDE HCL 10 MG/10 ML UDC GT SCH ×3 (05:00→21:59)
[2018-09-25 06:03] VITALS: BP 144/80
[2018-09-25] MEDS: OMEPRAZOLE 20 MG CAPSULE.DR GT SCH (06:12)
[2018-09-25 07:41] LABS: CALCIUM, SERUM 8.7 mg/dL (8.5-10.1); CARBON DIOXIDE 35 mmol/L (21-32); CHLORIDE 107 mmol/L (98-107); CREATININE 1.4 mg/dL (0.6-1.3); GLUCOSE 219 mg/dL (74-106); POTASSIUM 4.4 mmol/L (3.5-5.1); SODIUM SERUM 147 mmol/L (136-145)
[2018-09-25 07:42] LABS: UREA NITROGEN, BLOOD 97 mg/dL (7-18)
[2018-09-25 08:00] VITALS: BP 132/73
[2018-09-25 08:31] VITALS: BP 132/73
[2018-09-25] MEDS: ACETYLCYSTEINE 10% SOLN 400 MG/4 ML VIAL NEB SCH (08:35)
[2018-09-25] MEDS: DORZOLAMIDE OPTH 2% 10 ML BOTTLE EACHEYE SCH ×3 (08:53→16:37)
[2018-09-25] MEDS: CHLORHEXIDINE GLUCONATE 15 ML UDC MM SCH ×2 (08:54→21:59)
[2018-09-25] MEDS: TAMSULOSIN 0.4 MG CAP.SR.24H PO SCH (08:54)
[2018-09-25] MEDS: ASCORBIC ACID 500 MG TABLET GT SCH (08:54)
[2018-09-25] MEDS: ACIDOPHILUS/BULGARICUS 1 EACH TAB.CHEW GT SCH (08:54)
[2018-09-25] MEDS: LACOSAMIDE 50 MG TABLET GT SCH ×2 (08:54→21:59)
[2018-09-25] MEDS: FINASTERIDE (5 MG) 5 MG TABLET GT SCH (08:54)
[2018-09-25] MEDS: LINAGLIPTIN 5 MG TABLET GT SCH (08:54)
[2018-09-25] MEDS: MULTIVITAMINS,THERAGRAN 1 UDTAB TABLET GT SCH (08:54)
[2018-09-25] MEDS: CARVEDILOL 6.25 MG TABLET GT SCH ×2 (08:54→21:59)
[2018-09-25] MEDS: Z GUARD REMEDY 4 OZ OINT TP SCH ×2 (09:00→21:59)
[2018-09-25] MEDS: VITAMINS A AND D 56.7 GM TUBE TP SCH ×2 (09:00→21:00)
[2018-09-25] MEDS: HYDROGEN PEROXIDE 480 ML BOTTLE TP SCH ×2 (09:00→21:59)
[2018-09-25] MEDS: MINERAL OIL/PETROL OINT 396 GM JAR TP SCH ×2 (09:00→21:59)
[2018-09-25] MEDS: NEOMY SULF/BACITRAC ZN/POLY 15 GM TUBE TP SCH ×2 (09:00→21:59)
[2018-09-25] MEDS: VITAL AF 1.2 1,000 ML BOTTLE GT SCH (09:08)
--- NOTE | 2018-09-25 10:07 | NUR ---
Seen by Dr Ramírez. Relayed BMP result to him. No new order. Addendum: 09/25/18 at 1010 by MAGDA LOBO RN Notified Dr Ramírez that pt had an episode of bradycardia on 09/23/18, HR 42-55 per endorsement.
[2018-09-25] MEDS: SIMETHICONE SUSP 40 MG/0.6 ML BOTTLE GT SCH (17:31)
[2018-09-25 18:42] VITALS: BP 125/70
[2018-09-25] MEDS: BUMETANIDE INJ 3 MG in IV NS 0.9% 48 ML IV SCH (20:00)
[2018-09-25] MEDS: ATORVASTATIN 40 MG TABLET GT SCH (22:00)
[2018-09-25] MEDS: LATANOPROST EYE DROP 0.005% 2.5 ML BOTTLE EACHEYE SCH (22:00)
[2018-09-26] VITALS (7 sets, daily range): BP systolic 132–152; BP diastolic 67–93
[2018-09-26] MEDS: INSULIN REGULAR, HUMAN 100 UNIT/ML 10 ML VIAL SQ SCH ×4 (00:01→17:51)
[2018-09-26] MEDS: BLOOD SUGAR DIAGNOSTIC 1 EACH STRIP IN SCH ×4 (00:01→17:50)
[2018-09-26] MEDS: ALBUTEROL FS 2.5 MG/0.5 ML VIAL.NEB NEB SCH ×4 (01:19→19:39)
[2018-09-26] MEDS: IPRATROPIUM NEB FS 0.5 MG/2.5 ML AMPUL.NEB IH SCH ×4 (01:19→19:39)
[2018-09-26] MEDS: ACETYLCYSTEINE 10% SOLN 400 MG/4 ML VIAL NEB SCH ×4 (01:19→23:30)
[2018-09-26] MEDS: METOCLOPRAMIDE HCL 10 MG/10 ML UDC GT SCH ×3 (05:00→20:53)
[2018-09-26] MEDS: SIMETHICONE SUSP 40 MG/0.6 ML BOTTLE GT SCH ×4 (06:29→17:45)
[2018-09-26] MEDS: OMEPRAZOLE 20 MG CAPSULE.DR GT SCH (06:29)
[2018-09-26] MEDS: Z GUARD REMEDY 4 OZ OINT TP SCH ×2 (09:00→20:54)
[2018-09-26] MEDS: MINERAL OIL/PETROL OINT 396 GM JAR TP SCH ×2 (09:00→20:54)
[2018-09-26] MEDS: VITAMINS A AND D 56.7 GM TUBE TP SCH ×2 (09:00→20:54)
[2018-09-26] MEDS: HYDROGEN PEROXIDE 480 ML BOTTLE TP SCH ×2 (09:00→20:54)
[2018-09-26] MEDS: NEOMY SULF/BACITRAC ZN/POLY 15 GM TUBE TP SCH ×2 (09:00→20:54)
[2018-09-26] MEDS: DORZOLAMIDE OPTH 2% 10 ML BOTTLE EACHEYE SCH ×3 (09:45→17:45)
[2018-09-26] MEDS: FINASTERIDE (5 MG) 5 MG TABLET GT SCH (09:46)
[2018-09-26] MEDS: LINAGLIPTIN 5 MG TABLET GT SCH (09:46)
[2018-09-26] MEDS: LACOSAMIDE 50 MG TABLET GT SCH ×2 (09:46→20:53)
[2018-09-26] MEDS: ASCORBIC ACID 500 MG TABLET GT SCH (09:46)
[2018-09-26] MEDS: ACIDOPHILUS/BULGARICUS 1 EACH TAB.CHEW GT SCH (09:46)
[2018-09-26] MEDS: MULTIVITAMINS,THERAGRAN 1 UDTAB TABLET GT SCH (09:46)
[2018-09-26] MEDS: CARVEDILOL 6.25 MG TABLET GT SCH ×2 (09:46→20:53)
[2018-09-26] MEDS: TAMSULOSIN 0.4 MG CAP.SR.24H PO SCH (09:46)
[2018-09-26] MEDS: CHLORHEXIDINE GLUCONATE 15 ML UDC MM SCH ×2 (09:46→20:54)
--- NOTE | 2018-09-26 10:50 | NUR ---
Notified Dr. Lugo that patient's Bumex 3mg IV is completed and reported most recent BMP with BUN 97. NNO given at this time. Per Dr. Lugo, he will see patient tomorrow. Resident still with generalized edema but with adequate urine output.
--- NOTE | 2018-09-26 12:15 | NUR ---
Dr. Harpreet Parker came and said that he put patient on Bumex 1 mg. daily via GT. Order carried out. Informed Dr. Lugo, attending .
--- NOTE | 2018-09-26 15:00 | NUR ---
RT Pt placed on vent with noted settings, due to pt being tachypneic with shallow breathing. Alarms are set and audible with BVM by bedside. EDUCATIONAL TECHNICIAN cuff pressure noted. Vent is plugged into red outlet. Sx'd moderate thin pale yellow secretions. Pt appears to be more comfortable on the vent, will continue to monitor. Addendum: 09/26/18 at 1550 by MARCELO KENNEDY RT Amended: Links added.
--- NOTE | 2018-09-26 15:30 | NUR ---
Notified Dr. Ramírez, resident with shallow breathing, 30-36 breaths/min. O2 sat 93% on cool aerosol 28% Fio2. RT at bedside and recommended to put patient back on ventilator. Dr. Ramírez gave the order to put patient on ventilator with the following setting AC 12 TV 500, Peep 5, Fi02 40%. Spoke with Dr. Johns, son and notified that patient was put back on ventilator and Bumex 1 mg./GT daily was ordered by Dr. Parker. Appreciated the call.
--- NOTE | 2018-09-26 19:15 | NUR ---
Noted with abdominal distention,manual venting done and released a lot of gas.Residual @ 300ml milk formula.Held feeding as ordered.Will re checked within an hour.Son at bedside.
--- NOTE | 2018-09-26 20:30 | NUR ---
Checked residual nothing,only abdominal gas.Son said do not turn on the feeding yet,start @ 10pm with slower rate to 35ml/hr then will increase it in few hours.Will continue to monitor.
[2018-09-26] MEDS: LATANOPROST EYE DROP 0.005% 2.5 ML BOTTLE EACHEYE SCH (21:18)
[2018-09-26] MEDS: ATORVASTATIN 40 MG TABLET GT SCH (21:18)
[2018-09-27] MEDS: SIMETHICONE SUSP 40 MG/0.6 ML BOTTLE GT SCH ×5 (00:11→23:31)
[2018-09-27] MEDS: BLOOD SUGAR DIAGNOSTIC 1 EACH STRIP IN SCH ×5 (00:11→23:31)
[2018-09-27 00:12] VITALS: BP 136/61
[2018-09-27] MEDS: INSULIN REGULAR, HUMAN 100 UNIT/ML 10 ML VIAL SQ SCH ×6 (00:12→23:39)
[2018-09-27] MEDS: IPRATROPIUM NEB FS 0.5 MG/2.5 ML AMPUL.NEB IH SCH ×4 (00:59→19:58)
[2018-09-27] MEDS: ALBUTEROL FS 2.5 MG/0.5 ML VIAL.NEB NEB SCH ×4 (00:59→19:58)
--- NOTE | 2018-09-27 02:00 | NUR ---
Increased feeding rate to 70ml/hr,residual is 50ml.No discomfort noted will continue to monitor.
[2018-09-27 04:30] VITALS: BP 133/64
[2018-09-27] MEDS: METOCLOPRAMIDE HCL 10 MG/10 ML UDC GT SCH ×3 (05:39→20:43)
[2018-09-27] MEDS: OMEPRAZOLE 20 MG CAPSULE.DR GT SCH (05:39)
[2018-09-27] MEDS: VITAL AF 1.2 1,000 ML BOTTLE GT SCH ×2 (06:02→20:20)
[2018-09-27] MEDS: BISACODYL SUPP (10 MG) 10 MG/SUPP.RECT SUPP.RECT RC PRN (07:10)
[2018-09-27 07:24] VITALS: BP 128/55
[2018-09-27] MEDS: ACETYLCYSTEINE 10% SOLN 400 MG/4 ML VIAL NEB SCH ×3 (07:43→23:08)
[2018-09-27 08:00] VITALS: BP 128/55
[2018-09-27] MEDS: DORZOLAMIDE OPTH 2% 10 ML BOTTLE EACHEYE SCH ×3 (08:58→17:20)
[2018-09-27] MEDS: FINASTERIDE (5 MG) 5 MG TABLET GT SCH (08:59)
[2018-09-27] MEDS: MULTIVITAMINS,THERAGRAN 1 UDTAB TABLET GT SCH (08:59)
[2018-09-27] MEDS: TAMSULOSIN 0.4 MG CAP.SR.24H PO SCH (08:59)
[2018-09-27] MEDS: LINAGLIPTIN 5 MG TABLET GT SCH (08:59)
[2018-09-27] MEDS: ACIDOPHILUS/BULGARICUS 1 EACH TAB.CHEW GT SCH (08:59)
[2018-09-27] MEDS: LACOSAMIDE 50 MG TABLET GT SCH ×2 (08:59→20:43)
[2018-09-27] MEDS: CARVEDILOL 6.25 MG TABLET GT SCH ×2 (08:59→20:43)
[2018-09-27] MEDS: ASCORBIC ACID 500 MG TABLET GT SCH (08:59)
[2018-09-27] MEDS: Z GUARD REMEDY 4 OZ OINT TP SCH ×2 (09:00→20:44)
[2018-09-27] MEDS: CHLORHEXIDINE GLUCONATE 15 ML UDC MM SCH ×2 (09:00→20:43)
[2018-09-27] MEDS: VITAMINS A AND D 56.7 GM TUBE TP SCH ×2 (09:00→20:44)
[2018-09-27] MEDS ORDERED: BUMETANIDE (1 MG) 1 MG TABLET GT SCH (09:00)
[2018-09-27] MEDS: NEOMY SULF/BACITRAC ZN/POLY 15 GM TUBE TP SCH ×2 (09:00→20:43)
[2018-09-27] MEDS: MINERAL OIL/PETROL OINT 396 GM JAR TP SCH ×2 (09:00→20:43)
[2018-09-27] MEDS: HYDROGEN PEROXIDE 480 ML BOTTLE TP SCH ×2 (09:00→20:43)
[2018-09-27 12:00] VITALS: BP 138/64
--- NOTE | 2018-09-27 12:55 | NUR ---
Seen and examined by Dr Lugo. He ordered to do CBC and BMP tomorrow. He also ordered to do daily weights x 1 week.
--- NOTE | 2018-09-27 17:54 | NUR ---
Pt's son came to visit. Notified him of Dr Lugo's order to do CBC and BMP tomorrow and to check pt's weight daily for one week to know if Bumex is effective.
--- NOTE | 2018-09-27 20:00 | NUR ---
Seen by BRANDO Demarco with new order KUB and CXR in AM.Son at bedside aware.
[2018-09-27 20:31] VITALS: BP 139/75
[2018-09-27] MEDS: LATANOPROST EYE DROP 0.005% 2.5 ML BOTTLE EACHEYE SCH (21:07)
[2018-09-27] MEDS: ATORVASTATIN 40 MG TABLET GT SCH (21:07)
[2018-09-28 00:33] VITALS: BP 124/79
[2018-09-28] MEDS: ALBUTEROL FS 2.5 MG/0.5 ML VIAL.NEB NEB SCH ×4 (02:09→20:00)
[2018-09-28] MEDS: IPRATROPIUM NEB FS 0.5 MG/2.5 ML AMPUL.NEB IH SCH ×4 (02:09→20:00)
[2018-09-28 05:14] VITALS: BP 110/49
[2018-09-28] MEDS: BLOOD SUGAR DIAGNOSTIC 1 EACH STRIP IN SCH ×4 (05:28→23:45)
[2018-09-28] MEDS: SIMETHICONE SUSP 40 MG/0.6 ML BOTTLE GT SCH ×4 (05:28→23:45)
[2018-09-28] MEDS: OMEPRAZOLE 20 MG CAPSULE.DR GT SCH (05:28)
[2018-09-28] MEDS: METOCLOPRAMIDE HCL 10 MG/10 ML UDC GT SCH ×3 (05:28→20:21)
[2018-09-28] MEDS: INSULIN REGULAR, HUMAN 100 UNIT/ML 10 ML VIAL SQ SCH ×4 (05:29→23:46)
[2018-09-28 07:19] VITALS: BP 143/77
[2018-09-28 07:39] LABS: BASOPHILS % (AUTO) 0.4 % (0.0-2.0); EOSINOPHILS % (AUTO) 2.5 % (0.0-6.0); HEMATOCRIT 27 % (39-51); HEMOGLOBIN 8.7 g/dL (13.5-17.5); LYMPHOCYTES # (AUTO) 0.9 /CMM (0.8-4.8); LYMPHOCYTES % (AUTO) 12.5 % (20.0-44.0); MEAN CORPUSCULAR HGB CONC 32 g/dl (31.0-36.0); MEAN CORPUSCULAR VOLUME 91 fL (80-96); MONOCYTES # (AUTO) 0.7 /CMM (0.1-1.30); MONOCYTES % (AUTO) 10.6 % (2.0-12.0); NEUTROPHILS # (AUTO) 5.2 /CMM (1.8-8.9); PLATELET COUNT (AUTO) 87 /CMM (150-450); WHITE BLOOD COUNT (AUTO) 7.1 K/uL (4.3-11.0)
[2018-09-28 07:52] LABS: CALCIUM, SERUM 8.7 mg/dL (8.5-10.1); CARBON DIOXIDE 34 mmol/L (21-32); CHLORIDE 111 mmol/L (98-107); CREATININE 1.8 mg/dL (0.6-1.3); GLUCOSE 160 mg/dL (74-106); POTASSIUM 4.1 mmol/L (3.5-5.1); SODIUM SERUM 150 mmol/L (136-145)
[2018-09-28 07:53] LABS: UREA NITROGEN, BLOOD 118 mg/dL (7-18)
[2018-09-28 08:00] VITALS: BP 143/77
[2018-09-28] MEDS: ACETYLCYSTEINE 10% SOLN 400 MG/4 ML VIAL NEB SCH ×3 (08:01→20:00)
--- NOTE | 2018-09-28 08:01 | NUR ---
RT Pt rec'd trach'd and on [facility] vent w charted settings. Alarms are set and audible w ambubag @ hob. Vent is plugged into red outlet. Shuttle Filler done. Pt trach is secure and patent. Pt sx'd and hhn tx given w no adverse reactions. No sob or respiratory distress noted @ this time. Will continue to monitor. Addendum: 09/28/18 at 1229 by ADAMARIS ALCANTAR RT Amended: Links added.
[2018-09-28 08:56] LABS: EOSINOPHILS % (MANUAL) 2 % (0-4); LYMPHOCYTES % (MANUAL) 15 % (16-48); MONOCYTES % (MANUAL) 4 % (0-11.0); NEUTROPHILS % (MANUAL) 79 (42-76)
[2018-09-28] MEDS: HYDROGEN PEROXIDE 480 ML BOTTLE TP SCH ×2 (09:00→20:21)
[2018-09-28] MEDS: Z GUARD REMEDY 4 OZ OINT TP SCH ×2 (09:00→20:21)
[2018-09-28] MEDS: VITAMINS A AND D 56.7 GM TUBE TP SCH ×2 (09:00→20:21)
[2018-09-28] MEDS: MINERAL OIL/PETROL OINT 396 GM JAR TP SCH ×2 (09:00→20:21)
[2018-09-28] MEDS: NEOMY SULF/BACITRAC ZN/POLY 15 GM TUBE TP SCH ×2 (09:00→20:21)
--- NOTE | 2018-09-28 09:15 | NUR ---
Dr. Lugo notified of CBC, chest Xray,KUB result and BMP; BUN 118, Creat 1.8, Glucose 160, Na 150. Dr. Lugo made aware that Dr. Harpreet Parker discontinued current order of Bumex 1 mg. daily, new order to repeat BMP in AM. Order carried out.
[2018-09-28] MEDS: DORZOLAMIDE OPTH 2% 10 ML BOTTLE EACHEYE SCH ×3 (09:28→16:54)
[2018-09-28] MEDS: TAMSULOSIN 0.4 MG CAP.SR.24H PO SCH (09:29)
[2018-09-28] MEDS: LACOSAMIDE 50 MG TABLET GT SCH ×2 (09:29→20:21)
[2018-09-28] MEDS: CARVEDILOL 6.25 MG TABLET GT SCH ×2 (09:29→20:20)
[2018-09-28] MEDS: LINAGLIPTIN 5 MG TABLET GT SCH (09:29)
[2018-09-28] MEDS: FINASTERIDE (5 MG) 5 MG TABLET GT SCH (09:29)
[2018-09-28] MEDS: MULTIVITAMINS,THERAGRAN 1 UDTAB TABLET GT SCH (09:29)
[2018-09-28] MEDS: CHLORHEXIDINE GLUCONATE 15 ML UDC MM SCH ×2 (09:29→20:21)
[2018-09-28] MEDS: ACIDOPHILUS/BULGARICUS 1 EACH TAB.CHEW GT SCH (09:29)
[2018-09-28] MEDS: ASCORBIC ACID 500 MG TABLET GT SCH (09:29)
[2018-09-28 12:00] VITALS: BP 129/58
--- NOTE | 2018-09-28 14:34 | NUR ---
INTERDISCIPLINARY TEAM CONFERENCE (IDT) was held today. Resident's son Jose Johns attended today's IDT meeting. Dr. Ramírez and the interdisciplinary team reviewed the current plan of care in detail. Orders as well as treatment and medications were reviewed. Resident was placed back in the vent on 09/26. Resident's son requested that his father be placed back in chair in a sitting position. Nurse responded he has been.
[2018-09-28] MEDS: VITAL AF 1.2 1,000 ML BOTTLE GT SCH (14:46)
--- NOTE | 2018-09-28 15:45 | NUR ---
Dr. Johns (son), was made aware during IDT meeting of new order to repeat BMP in AM and discontinuation of Bumex. Dr. Ramírez reviewed latest labs, CXRAY and KUB. He discussed with son the possibility of dialysis though he said he is not recommending, but will discussed with in school suspension coordinator first. Per MD Ramírez the problem with patient right now is the fluid management. Dr. Johns son is nodding in agreement. Dr. Johns also reviewed latest CBC, BMP, CXray and KUB result.
[2018-09-28 19:39] VITALS: BP 141/71
[2018-09-28] MEDS: LATANOPROST EYE DROP 0.005% 2.5 ML BOTTLE EACHEYE SCH (21:21)
[2018-09-28] MEDS: ATORVASTATIN 40 MG TABLET GT SCH (21:21)
--- NOTE | 2018-09-28 22:10 | NUR ---
RT NOTE PATIENT RECEIVED TRACHED ON MECHANICAL VENTILATION. VENT PLUGGED INTO RED OUTLET. ALARMS ON AND AUDIBLE. CUFF CHECKED VIA SWITCHBOARD OPERATOR HELPER. TX GIVEN, NO ADVERSE REACTIONS NOTED. SX DONE, MODERATE THICK WHITE/YELLOW SECRETIONS NOTED. PATIENT STABLE. Addendum: 09/28/18 at 2210 by GINGER YOU RT Amended: Links added.
[2018-09-29] MEDS: ALBUTEROL FS 2.5 MG/0.5 ML VIAL.NEB NEB SCH ×4 (01:37→19:39)
[2018-09-29] MEDS: IPRATROPIUM NEB FS 0.5 MG/2.5 ML AMPUL.NEB IH SCH ×4 (01:37→19:39)
[2018-09-29] MEDS: ACETYLCYSTEINE 10% SOLN 400 MG/4 ML VIAL NEB SCH ×4 (01:37→19:39)
[2018-09-29 01:49] VITALS: BP 138/90
[2018-09-29 05:39] VITALS: BP 142/90
[2018-09-29] MEDS: SIMETHICONE SUSP 40 MG/0.6 ML BOTTLE GT SCH ×4 (05:40→23:34)
[2018-09-29] MEDS: METOCLOPRAMIDE HCL 10 MG/10 ML UDC GT SCH ×3 (05:40→20:26)
[2018-09-29] MEDS: BLOOD SUGAR DIAGNOSTIC 1 EACH STRIP IN SCH ×4 (05:41→23:34)
[2018-09-29] MEDS: OMEPRAZOLE 20 MG CAPSULE.DR GT SCH (05:41)
[2018-09-29] MEDS: INSULIN REGULAR, HUMAN 100 UNIT/ML 10 ML VIAL SQ SCH ×4 (05:42→23:34)
[2018-09-29] MEDS: VITAL AF 1.2 1,000 ML BOTTLE GT SCH ×2 (05:44→23:36)
[2018-09-29 07:27] LABS: CALCIUM, SERUM 8.5 mg/dL (8.5-10.1); CARBON DIOXIDE 34 mmol/L (21-32); CHLORIDE 108 mmol/L (98-107); CREATININE 1.7 mg/dL (0.6-1.3); GLUCOSE 187 mg/dL (74-106); POTASSIUM 4.1 mmol/L (3.5-5.1); SODIUM SERUM 148 mmol/L (136-145)
[2018-09-29 07:31] LABS: UREA NITROGEN, BLOOD 114 mg/dL (7-18)
[2018-09-29 07:49] VITALS: BP 129/89
[2018-09-29] MEDS: DORZOLAMIDE OPTH 2% 10 ML BOTTLE EACHEYE SCH ×3 (08:51→17:45)
[2018-09-29] MEDS: CARVEDILOL 6.25 MG TABLET GT SCH ×2 (08:52→20:26)
[2018-09-29] MEDS: ASCORBIC ACID 500 MG TABLET GT SCH (08:52)
[2018-09-29] MEDS: LINAGLIPTIN 5 MG TABLET GT SCH (08:52)
[2018-09-29] MEDS: ACIDOPHILUS/BULGARICUS 1 EACH TAB.CHEW GT SCH (08:52)
[2018-09-29] MEDS: TAMSULOSIN 0.4 MG CAP.SR.24H PO SCH (08:52)
[2018-09-29] MEDS: FINASTERIDE (5 MG) 5 MG TABLET GT SCH (08:52)
[2018-09-29] MEDS: LACOSAMIDE 50 MG TABLET GT SCH ×2 (08:52→20:26)
[2018-09-29] MEDS: CHLORHEXIDINE GLUCONATE 15 ML UDC MM SCH ×2 (08:52→20:26)
[2018-09-29] MEDS: MULTIVITAMINS,THERAGRAN 1 UDTAB TABLET GT SCH (08:52)
[2018-09-29] MEDS: Z GUARD REMEDY 4 OZ OINT TP SCH ×2 (09:00→20:26)
[2018-09-29] MEDS: MINERAL OIL/PETROL OINT 396 GM JAR TP SCH ×2 (09:00→20:26)
[2018-09-29] MEDS: VITAMINS A AND D 56.7 GM TUBE TP SCH ×2 (09:00→20:26)
[2018-09-29] MEDS: NEOMY SULF/BACITRAC ZN/POLY 15 GM TUBE TP SCH ×2 (09:00→20:26)
[2018-09-29] MEDS: HYDROGEN PEROXIDE 480 ML BOTTLE TP SCH ×2 (09:00→20:26)
--- NOTE | 2018-09-29 10:18 | NUR ---
RT Monthly trach change done per protocol with new shiley 6 cuffed trach. Pt placed back on the vent with noted settings. trach change done with no complications. equal bilateral breathe sounds and chest rise. Minimal bleeding and no redness noted at trach site. No respiratory distress noted at this time, will continue to monitor. Addendum: 09/29/18 at 1204 by MARCELO KENNEDY RT Amended: Links added.
--- NOTE | 2018-09-29 11:30 | NUR ---
Notified Dr. Jeronimo regional controller for Dr. Parker and relayed BMP result (BUN 144) with no new order.
[2018-09-29 12:00] VITALS: BP 135/76
--- NOTE | 2018-09-29 12:47 | NUR ---
Phylicia Lozano NP made rounds and notified of patient's low grade temp of 99.5 today. NNO given. Continue to monitor.
--- NOTE | 2018-09-29 14:30 | NUR ---
Phylicia MICHAELS ordered IV ATB Maxipime IV Q12 hours for possible pneumonia, sputum culture, CBC and procalcitonin in AM. Order noted and carried out. Dr. Johns, son notified of new order.
--- NOTE | 2018-09-29 17:30 | NUR ---
Obtain an order from Dr. maldonado fro midline insertion due to poor venous access. Dr. Johns, son informed. Nursing survey supervisor notified of midline insertion order.
[2018-09-29 18:00] VITALS: BP 150/88
--- NOTE | 2018-09-29 18:45 | NUR ---
Midline inserted in the R basilic, G #18, with good blood return. Transparent dressing applied and intact, no bleeding.
[2018-09-29 20:05] VITALS: BP 131/75
[2018-09-29] MEDS: CEFEPIME 2 GM in IV D5W 100 ML IV SCH (21:00)
[2018-09-29] MEDS ORDERED: CEFEPIME 1 GM VIAL IV SCH (21:00)
[2018-09-29] MEDS: ATORVASTATIN 40 MG TABLET GT SCH (21:30)
[2018-09-29] MEDS: LATANOPROST EYE DROP 0.005% 2.5 ML BOTTLE EACHEYE SCH (21:30)
[2018-09-30 00:21] VITALS: BP 136/74
[2018-09-30] MEDS: ACETYLCYSTEINE 10% SOLN 400 MG/4 ML VIAL NEB SCH ×4 (01:36→19:24)
[2018-09-30] MEDS: ALBUTEROL FS 2.5 MG/0.5 ML VIAL.NEB NEB SCH ×4 (01:36→19:24)
[2018-09-30] MEDS: IPRATROPIUM NEB FS 0.5 MG/2.5 ML AMPUL.NEB IH SCH ×4 (01:36→19:24)
[2018-09-30 05:26] VITALS: BP 124/79
[2018-09-30] MEDS: METOCLOPRAMIDE HCL 10 MG/10 ML UDC GT SCH ×3 (05:28→20:13)
[2018-09-30] MEDS: BLOOD SUGAR DIAGNOSTIC 1 EACH STRIP IN SCH ×3 (05:28→18:22)
[2018-09-30] MEDS: OMEPRAZOLE 20 MG CAPSULE.DR GT SCH (05:28)
[2018-09-30] MEDS: SIMETHICONE SUSP 40 MG/0.6 ML BOTTLE GT SCH ×4 (05:28→23:59)
[2018-09-30] MEDS: INSULIN REGULAR, HUMAN 100 UNIT/ML 10 ML VIAL SQ SCH ×3 (05:29→18:25)
[2018-09-30 06:59] LABS: BASOPHILS % (AUTO) 0.2 % (0.0-2.0); HEMATOCRIT 26 % (39-51); HEMOGLOBIN 8.3 g/dL (13.5-17.5); LYMPHOCYTES # (AUTO) 0.8 /CMM (0.8-4.8); LYMPHOCYTES % (AUTO) 13.3 % (20.0-44.0); MEAN CORPUSCULAR HGB CONC 32 g/dl (31.0-36.0); MEAN CORPUSCULAR VOLUME 91 fL (80-96); MONOCYTES # (AUTO) 0.6 /CMM (0.1-1.30); MONOCYTES % (AUTO) 10.2 % (2.0-12.0); NEUTROPHILS # (AUTO) 4.6 /CMM (1.8-8.9); NEUTROPHILS % (AUTO) 73.3 % (43.0-81.0); PLATELET COUNT (AUTO) 77 /CMM (150-450); RED BLOOD CELL COUNT(AUTO) 2.87 MIL/uL (4.5-6.0); WHITE BLOOD COUNT (AUTO) 6.3 K/uL (4.3-11.0)
[2018-09-30 07:22] VITALS: BP 148/73
[2018-09-30 08:00] VITALS: BP 148/73
[2018-09-30] MEDS: NEOMY SULF/BACITRAC ZN/POLY 15 GM TUBE TP SCH ×2 (09:00→20:13)
[2018-09-30] MEDS: ASCORBIC ACID 500 MG TABLET GT SCH (09:00)
[2018-09-30] MEDS: HYDROGEN PEROXIDE 480 ML BOTTLE TP SCH ×2 (09:00→20:13)
[2018-09-30] MEDS: DORZOLAMIDE OPTH 2% 10 ML BOTTLE EACHEYE SCH ×3 (09:00→17:00)
[2018-09-30] MEDS: LACOSAMIDE 50 MG TABLET GT SCH ×2 (09:00→20:13)
[2018-09-30] MEDS: MINERAL OIL/PETROL OINT 396 GM JAR TP SCH ×2 (09:00→20:13)
[2018-09-30] MEDS: Z GUARD REMEDY 4 OZ OINT TP SCH ×2 (09:00→20:13)
[2018-09-30] MEDS: VITAMINS A AND D 56.7 GM TUBE TP SCH ×2 (09:00→20:14)
[2018-09-30] MEDS: ACIDOPHILUS/BULGARICUS 1 EACH TAB.CHEW GT SCH (09:00)
[2018-09-30] MEDS: CEFEPIME 2 GM in IV D5W 100 ML IV SCH ×2 (09:00→20:13)
[2018-09-30 09:06] LABS: EOSINOPHILS % (MANUAL) 1 % (0-4); LYMPHOCYTES % (MANUAL) 11 % (16-48); MONOCYTES % (MANUAL) 6 % (0-11.0); NEUTROPHILS % (MANUAL) 82 (42-76)
[2018-09-30] MEDS: TAMSULOSIN 0.4 MG CAP.SR.24H PO SCH (10:27)
[2018-09-30] MEDS: CHLORHEXIDINE GLUCONATE 15 ML UDC MM SCH ×2 (10:27→20:13)
[2018-09-30] MEDS: MULTIVITAMINS,THERAGRAN 1 UDTAB TABLET GT SCH (10:27)
[2018-09-30] MEDS: FINASTERIDE (5 MG) 5 MG TABLET GT SCH (10:27)
[2018-09-30] MEDS: LINAGLIPTIN 5 MG TABLET GT SCH (10:27)
[2018-09-30] MEDS: CARVEDILOL 6.25 MG TABLET GT SCH ×2 (10:28→20:12)
--- NOTE | 2018-09-30 11:45 | NUR ---
BRUSH WASHER Dory came, made her aware of lab results, she stated " if patient continues to be asymptomatic the course of IV ATB will be short only". Continue with cefepime IV for possible pneumonia, she is aware of last x ray results which is just done recently. Patient afebrile at this time, no resp. distress. Closely monitored.
[2018-09-30 12:00] VITALS: BP 134/76
[2018-09-30] MEDS: VITAL AF 1.2 1,000 ML BOTTLE GT SCH (18:28)
[2018-09-30 19:42] VITALS: BP 144/54
[2018-09-30] MEDS: ATORVASTATIN 40 MG TABLET GT SCH (21:00)
[2018-09-30] MEDS: LATANOPROST EYE DROP 0.005% 2.5 ML BOTTLE EACHEYE SCH (21:00)
[2018-10-01] VITALS: BP 131/71
[2018-10-01] MEDS: INSULIN REGULAR, HUMAN 100 UNIT/ML 10 ML VIAL SQ SCH ×5 (00:22→23:15)
[2018-10-01] MEDS: ALBUTEROL FS 2.5 MG/0.5 ML VIAL.NEB NEB SCH ×4 (00:30→19:59)
[2018-10-01] MEDS: ACETYLCYSTEINE 10% SOLN 400 MG/4 ML VIAL NEB SCH ×4 (00:30→19:59)
[2018-10-01] MEDS: IPRATROPIUM NEB FS 0.5 MG/2.5 ML AMPUL.NEB IH SCH ×4 (00:30→19:59)
[2018-10-01 04:00] VITALS: BP 126/69
[2018-10-01] MEDS: BLOOD SUGAR DIAGNOSTIC 1 EACH STRIP IN SCH ×5 (05:25→23:13)
[2018-10-01] MEDS: METOCLOPRAMIDE HCL 10 MG/10 ML UDC GT SCH ×3 (05:26→20:44)
[2018-10-01] MEDS: OMEPRAZOLE 20 MG CAPSULE.DR GT SCH (05:26)
[2018-10-01] MEDS: SIMETHICONE SUSP 40 MG/0.6 ML BOTTLE GT SCH ×4 (05:26→23:13)
[2018-10-01 07:39] VITALS: BP 124/77
[2018-10-01 07:53] LABS: ALANINE AMINOTRANSFERASE 43 U/L (12-78); ALKALINE PHOSPHATASE 385 U/L (46-116); ASPARTATE AMINOTRANSFERASE 41 U/L (15-37); BILIRUBIN,TOTAL 0.5 mg/dL (0.2-1.0); CALCIUM, SERUM 8.3 mg/dL (8.5-10.1); CARBON DIOXIDE 32 mmol/L (21-32); CHLORIDE 110 mmol/L (98-107); CREATININE 1.8 mg/dL (0.6-1.3); GLUCOSE 212 mg/dL (74-106); POTASSIUM 3.9 mmol/L (3.5-5.1); SODIUM SERUM 150 mmol/L (136-145); TOTAL PROTEIN, SERUM 7.7 g/dL (6.4-8.2)
[2018-10-01 07:56] LABS: UREA NITROGEN, BLOOD 115 mg/dL (7-18)
[2018-10-01 08:00] VITALS: BP 124/77
[2018-10-01] MEDS: VITAMINS A AND D 56.7 GM TUBE TP SCH ×2 (09:00→20:44)
[2018-10-01] MEDS: CEFEPIME 2 GM in IV D5W 100 ML IV SCH ×2 (09:00→21:56)
[2018-10-01] MEDS: MINERAL OIL/PETROL OINT 396 GM JAR TP SCH ×2 (09:00→20:44)
[2018-10-01] MEDS: Z GUARD REMEDY 4 OZ OINT TP SCH ×2 (09:00→20:44)
[2018-10-01] MEDS: HYDROGEN PEROXIDE 480 ML BOTTLE TP SCH ×2 (09:00→20:44)
[2018-10-01] MEDS: NEOMY SULF/BACITRAC ZN/POLY 15 GM TUBE TP SCH ×2 (09:00→20:44)
[2018-10-01] MEDS: DORZOLAMIDE OPTH 2% 10 ML BOTTLE EACHEYE SCH ×3 (09:21→17:46)
[2018-10-01] MEDS: CARVEDILOL 6.25 MG TABLET GT SCH ×2 (09:24→20:43)
[2018-10-01] MEDS: ACIDOPHILUS/BULGARICUS 1 EACH TAB.CHEW GT SCH (09:25)
[2018-10-01] MEDS: FINASTERIDE (5 MG) 5 MG TABLET GT SCH (09:26)
[2018-10-01] MEDS: LACOSAMIDE 50 MG TABLET GT SCH ×2 (09:26→20:44)
[2018-10-01] MEDS: MULTIVITAMINS,THERAGRAN 1 UDTAB TABLET GT SCH (09:26)
[2018-10-01] MEDS: LINAGLIPTIN 5 MG TABLET GT SCH (09:26)
[2018-10-01] MEDS: ASCORBIC ACID 500 MG TABLET GT SCH (09:27)
[2018-10-01] MEDS: TAMSULOSIN 0.4 MG CAP.SR.24H PO SCH (09:27)
[2018-10-01] MEDS: CHLORHEXIDINE GLUCONATE 15 ML UDC MM SCH ×2 (09:27→20:44)
[2018-10-01 12:00] VITALS: BP 155/84
[2018-10-01] MEDS: VITAL AF 1.2 1,000 ML BOTTLE GT SCH (12:29)
--- NOTE | 2018-10-01 12:45 | NUR ---
Seen by Dr Jeronimo. He said he already saw pt's lab results. BUN 115 Cr 1.8 Na 150. Informed him that pt is getting 300 cc of water q [address] Jeronimo aware of pt's anasarca. He said hemodialysis is not yet recommended for pt at this time.
[2018-10-01 19:32] VITALS: BP 137/55
[2018-10-01] MEDS: ATORVASTATIN 40 MG TABLET GT SCH (22:05)
[2018-10-01] MEDS: LATANOPROST EYE DROP 0.005% 2.5 ML BOTTLE EACHEYE SCH (22:05)
[2018-10-02 01:03] VITALS: BP 128/62
[2018-10-02] MEDS: ACETYLCYSTEINE 10% SOLN 400 MG/4 ML VIAL NEB SCH ×4 (01:22→20:31)
[2018-10-02] MEDS: IPRATROPIUM NEB FS 0.5 MG/2.5 ML AMPUL.NEB IH SCH ×4 (01:22→20:31)
[2018-10-02] MEDS: ALBUTEROL FS 2.5 MG/0.5 ML VIAL.NEB NEB SCH ×4 (01:24→20:31)
[2018-10-02 04:14] VITALS: BP 130/62
[2018-10-02] MEDS: METOCLOPRAMIDE HCL 10 MG/10 ML UDC GT SCH ×3 (05:19→20:38)
[2018-10-02] MEDS: OMEPRAZOLE 20 MG CAPSULE.DR GT SCH (05:19)
[2018-10-02] MEDS: SIMETHICONE SUSP 40 MG/0.6 ML BOTTLE GT SCH ×4 (05:19→23:30)
[2018-10-02] MEDS: VITAL AF 1.2 1,000 ML BOTTLE GT SCH (05:20)
[2018-10-02] MEDS: BLOOD SUGAR DIAGNOSTIC 1 EACH STRIP IN SCH ×4 (05:59→23:30)
[2018-10-02] MEDS: INSULIN REGULAR, HUMAN 100 UNIT/ML 10 ML VIAL SQ SCH ×4 (06:00→23:32)
[2018-10-02 07:45] VITALS: BP 145/83
[2018-10-02 08:00] VITALS: BP 145/83
[2018-10-02] MEDS: ACIDOPHILUS/BULGARICUS 1 EACH TAB.CHEW GT SCH (08:59)
[2018-10-02] MEDS: CARVEDILOL 6.25 MG TABLET GT SCH ×2 (08:59→20:38)
[2018-10-02] MEDS: LINAGLIPTIN 5 MG TABLET GT SCH (08:59)
[2018-10-02] MEDS: FINASTERIDE (5 MG) 5 MG TABLET GT SCH (08:59)
[2018-10-02] MEDS: DORZOLAMIDE OPTH 2% 10 ML BOTTLE EACHEYE SCH ×3 (08:59→17:22)
[2018-10-02] MEDS: MULTIVITAMINS,THERAGRAN 1 UDTAB TABLET GT SCH (08:59)
[2018-10-02] MEDS: LACOSAMIDE 50 MG TABLET GT SCH ×2 (08:59→20:38)
[2018-10-02] MEDS: HYDROGEN PEROXIDE 480 ML BOTTLE TP SCH ×2 (09:00→20:38)
[2018-10-02] MEDS: Z GUARD REMEDY 4 OZ OINT TP SCH ×2 (09:00→20:38)
[2018-10-02] MEDS: MINERAL OIL/PETROL OINT 396 GM JAR TP SCH ×2 (09:00→20:38)
[2018-10-02] MEDS: TAMSULOSIN 0.4 MG CAP.SR.24H PO SCH (09:00)
[2018-10-02] MEDS: VITAMINS A AND D 56.7 GM TUBE TP SCH ×2 (09:00→20:39)
[2018-10-02] MEDS: ASCORBIC ACID 500 MG TABLET GT SCH (09:00)
[2018-10-02] MEDS: CEFEPIME 2 GM in IV D5W 100 ML IV SCH (09:00)
[2018-10-02] MEDS: NEOMY SULF/BACITRAC ZN/POLY 15 GM TUBE TP SCH ×2 (09:00→20:38)
[2018-10-02] MEDS: CHLORHEXIDINE GLUCONATE 15 ML UDC MM SCH ×2 (09:03→20:38)
--- NOTE | 2018-10-02 09:30 | NUR ---
Seen by Dr Ramírez. He said he will view today's CXR result, but he does not think pt has pneumonia.
[2018-10-02 12:00] VITALS: BP 135/56
--- NOTE | 2018-10-02 18:04 | NUR ---
Received order to DC Cefepime. Pt afebrile, T 97.7 F.
[2018-10-02 19:43] VITALS: BP 150/73
--- NOTE | 2018-10-02 21:21 | NUR ---
PT RCVD TRACH'D ON MECHANICAL VENT WITH CHARTED SETTINGS. HHN TX GIVEN AND NO ADVERSE REACTION NOTED. SX DONE. PT TRACH PATENT AND SECURE. CUFF CHECKED VIA AUDIO INSTALLER. ALARMS ARE ON AND AUDIBLE. VENT PLUGGED INTO RED OUTLET. AMBU BAG AT BEDSIDE. WILL CONTINUE TO MONITOR. Addendum: 10/02/18 at 2121 by TITO GARCES RT Amended: Links added.
[2018-10-02] MEDS: LATANOPROST EYE DROP 0.005% 2.5 ML BOTTLE EACHEYE SCH (22:02)
[2018-10-02] MEDS: ATORVASTATIN 40 MG TABLET GT SCH (22:02)
[2018-10-03 00:29] VITALS: BP 140/66
[2018-10-03] MEDS: IPRATROPIUM NEB FS 0.5 MG/2.5 ML AMPUL.NEB IH SCH ×4 (01:18→20:25)
[2018-10-03] MEDS: ALBUTEROL FS 2.5 MG/0.5 ML VIAL.NEB NEB SCH ×4 (01:18→20:25)
[2018-10-03] MEDS: ACETYLCYSTEINE 10% SOLN 400 MG/4 ML VIAL NEB SCH ×4 (01:18→20:26)
[2018-10-03 04:11] VITALS: BP 136/58
[2018-10-03] MEDS: METOCLOPRAMIDE HCL 10 MG/10 ML UDC GT SCH ×3 (05:36→20:35)
[2018-10-03] MEDS: SIMETHICONE SUSP 40 MG/0.6 ML BOTTLE GT SCH ×4 (05:36→23:37)
[2018-10-03] MEDS: OMEPRAZOLE 20 MG CAPSULE.DR GT SCH (05:36)
[2018-10-03] MEDS: BLOOD SUGAR DIAGNOSTIC 1 EACH STRIP IN SCH ×4 (06:03→23:37)
[2018-10-03] MEDS: INSULIN REGULAR, HUMAN 100 UNIT/ML 10 ML VIAL SQ SCH ×4 (06:04→23:38)
[2018-10-03 07:55] VITALS: BP 128/67
[2018-10-03] MEDS: CARVEDILOL 6.25 MG TABLET GT SCH ×2 (09:00→20:33)
[2018-10-03] MEDS: MULTIVITAMINS,THERAGRAN 1 UDTAB TABLET GT SCH (09:00)
[2018-10-03] MEDS: DORZOLAMIDE OPTH 2% 10 ML BOTTLE EACHEYE SCH ×3 (09:35→17:19)
[2018-10-03] MEDS: MINERAL OIL/PETROL OINT 396 GM JAR TP SCH ×2 (09:36→20:36)
[2018-10-03] MEDS: TAMSULOSIN 0.4 MG CAP.SR.24H PO SCH (09:36)
[2018-10-03] MEDS: ACIDOPHILUS/BULGARICUS 1 EACH TAB.CHEW GT SCH (09:36)
[2018-10-03] MEDS: ASCORBIC ACID 500 MG TABLET GT SCH (09:36)
[2018-10-03] MEDS: Z GUARD REMEDY 4 OZ OINT TP SCH ×2 (09:36→20:36)
[2018-10-03] MEDS: LINAGLIPTIN 5 MG TABLET GT SCH (09:36)
[2018-10-03] MEDS: HYDROGEN PEROXIDE 480 ML BOTTLE TP SCH ×2 (09:36→20:36)
[2018-10-03] MEDS: LACOSAMIDE 50 MG TABLET GT SCH ×2 (09:36→20:35)
[2018-10-03] MEDS: CHLORHEXIDINE GLUCONATE 15 ML UDC MM SCH ×2 (09:36→20:35)
[2018-10-03] MEDS: FINASTERIDE (5 MG) 5 MG TABLET GT SCH (09:36)
[2018-10-03] MEDS: VITAMINS A AND D 56.7 GM TUBE TP SCH ×2 (09:36→20:36)
[2018-10-03] MEDS: NEOMY SULF/BACITRAC ZN/POLY 15 GM TUBE TP SCH ×2 (09:36→20:36)
--- NOTE | 2018-10-03 10:00 | NUR ---
Notified Dr. Lugo that patient has gastric residual dark brownish in color and later on aspirated blood tinged color with blood clots. GT site also with small amount of bleeding noted. New order given for GI consult and to send stool for OB. Left a message to Jazmin Steven NP and will see patient later on.
--- NOTE | 2018-10-03 12:30 | NUR ---
Made a follow-up call to Jazmin Steven, as patient continue to have dark brownish gastric residual. New order to connect patient's GT to low intermittent suctioning. Order carried out. Resident's son informed.
[2018-10-03 15:03] VITALS: BP 128/67
--- NOTE | 2018-10-03 15:30 | NUR ---
Left a message to Dr. Lugo, that patient NPO at this time and if he wants patient to have hydration. Awaiting for call back.
--- NOTE | 2018-10-03 17:30 | NUR ---
Received an IVF order from Dr. Lugo 08/29 DAVID at 60 cc/hr. All order carried out.
[2018-10-03] MEDS ORDERED: IV 1/2NS 1000 ML 1,000 ML IV SCH (18:00)
[2018-10-03] MEDS: IV D5/0.45 NACL 1,000 ML IV PRN (18:51)
--- NOTE | 2018-10-03 19:03 | NUR ---
Seen and examined by Jazmin Steven NP and said to continue with GT low intermittent suctioning and change IVF to D5 1/2 NS at 60cc/hr. Dr. Johns, son informed.
[2018-10-03 19:59] VITALS: BP 127/73
--- NOTE | 2018-10-03 20:30 | NUR ---
RECEIVED TRACH YANY 6 PT ON MECH VENT WITH NOTED SETTINGS. TRACH IS PATENT AND SECURED. ANIMAL HUSBANDRY PROFESSOR DONE. Q6 BREATHING TX GIVEN WITH NO ADVERSE REACTION NOTED. SX MODERATE AMOUNT OF PINK TINGED SECRETIONS. VENT PLUGGED INTO RED OUTLET. ALARMS ON AND AUDIBLE. AMBU BAG @ BEDSIDE. NO RESP DISTRESS AT THIS TIME. WILL CONT TO MONITOR PT.
[2018-10-03 20:43] LABS: OCCULT BLOOD STOOL POSITIVE (NEGATIVE)
[2018-10-03] MEDS: LATANOPROST EYE DROP 0.005% 2.5 ML BOTTLE EACHEYE SCH (21:49)
[2018-10-03] MEDS: ATORVASTATIN 40 MG TABLET GT SCH (21:49)
[2018-10-04 00:21] VITALS: BP 120/58
[2018-10-04] MEDS: ALBUTEROL FS 2.5 MG/0.5 ML VIAL.NEB NEB SCH ×4 (01:03→20:09)
[2018-10-04] MEDS: IPRATROPIUM NEB FS 0.5 MG/2.5 ML AMPUL.NEB IH SCH ×4 (01:03→20:09)
[2018-10-04] MEDS: ACETYLCYSTEINE 10% SOLN 400 MG/4 ML VIAL NEB SCH ×4 (01:03→20:09)
[2018-10-04 04:00] VITALS: BP 124/58
[2018-10-04] MEDS: METOCLOPRAMIDE HCL 10 MG/10 ML UDC GT SCH ×3 (05:00→21:33)
--- NOTE | 2018-10-04 06:38 | NUR ---
Pt on continuos IV hydration 60ml/hr,GT via intermittent suction output @ 100ml pinkish with streak old blood/coffee ground.Pt with order for CBC,CMP,MG,PHOS today ordered by Dr. Ybarra.pt comfortable,no distress noted.Will continue to monitor.
[2018-10-04] MEDS: OMEPRAZOLE 20 MG CAPSULE.DR GT SCH (06:50)
[2018-10-04] MEDS: SIMETHICONE SUSP 40 MG/0.6 ML BOTTLE GT SCH ×3 (06:50→17:14)
[2018-10-04] MEDS: BLOOD SUGAR DIAGNOSTIC 1 EACH STRIP IN SCH ×3 (06:50→17:14)
[2018-10-04] MEDS: INSULIN REGULAR, HUMAN 100 UNIT/ML 10 ML VIAL SQ SCH ×3 (06:51→17:15)
[2018-10-04 07:31] VITALS: BP 145/75
[2018-10-04 07:44] LABS: ALANINE AMINOTRANSFERASE 41 U/L (12-78); ALBUMIN 1.9 g/dL (3.4-5.0); ALKALINE PHOSPHATASE 342 U/L (46-116); ASPARTATE AMINOTRANSFERASE 38 U/L (15-37); BILIRUBIN,TOTAL 0.5 mg/dL (0.2-1.0); CALCIUM, SERUM 8.6 mg/dL (8.5-10.1); CARBON DIOXIDE 32 mmol/L (21-32); CHLORIDE 109 mmol/L (98-107); CREATININE 1.8 mg/dL (0.6-1.3); GLUCOSE 160 mg/dL (74-106); MAGNESIUM 2.3 mg/dL (1.8-2.4); PHOSPHORUS 3.3 mg/dL (2.5-4.9); POTASSIUM 3.4 mmol/L (3.5-5.1); SODIUM SERUM 149 mmol/L (136-145); TOTAL PROTEIN, SERUM 7.6 g/dL (6.4-8.2)
[2018-10-04 07:45] LABS: BASOPHILS % (AUTO) 0.4 % (0.0-2.0); EOSINOPHILS % (AUTO) 3.2 % (0.0-6.0); HEMATOCRIT 27 % (39-51); HEMOGLOBIN 8.6 g/dL (13.5-17.5); LYMPHOCYTES # (AUTO) 0.6 /CMM (0.8-4.8); LYMPHOCYTES % (AUTO) 10.6 % (20.0-44.0); MEAN CORPUSCULAR HGB CONC 32 g/dl (31.0-36.0); MEAN CORPUSCULAR VOLUME 90 fL (80-96); MONOCYTES # (AUTO) 0.4 /CMM (0.1-1.30); MONOCYTES % (AUTO) 7.3 % (2.0-12.0); NEUTROPHILS # (AUTO) 4.8 /CMM (1.8-8.9); NEUTROPHILS % (AUTO) 78.5 % (43.0-81.0); PLATELET COUNT (AUTO) 74 /CMM (150-450); RED BLOOD CELL COUNT(AUTO) 2.97 MIL/uL (4.5-6.0); WHITE BLOOD COUNT (AUTO) 6.2 K/uL (4.3-11.0)
[2018-10-04 08:08] LABS: UREA NITROGEN, BLOOD 108 mg/dL (7-18)
[2018-10-04 08:45] LABS: EOSINOPHILS % (MANUAL) 2 % (0-4); LYMPHOCYTES % (MANUAL) 8 % (16-48); MONOCYTES % (MANUAL) 7 % (0-11.0); NEUTROPHILS % (MANUAL) 83 (42-76)
[2018-10-04] MEDS: CARVEDILOL 6.25 MG TABLET GT SCH ×2 (09:00→21:00)
[2018-10-04] MEDS: DORZOLAMIDE OPTH 2% 10 ML BOTTLE EACHEYE SCH ×3 (09:55→17:14)
[2018-10-04] MEDS: ASCORBIC ACID 500 MG TABLET GT SCH (09:56)
[2018-10-04] MEDS: CHLORHEXIDINE GLUCONATE 15 ML UDC MM SCH ×2 (09:56→21:34)
[2018-10-04] MEDS: LINAGLIPTIN 5 MG TABLET GT SCH (09:56)
[2018-10-04] MEDS: LACOSAMIDE 50 MG TABLET GT SCH ×2 (09:56→21:33)
[2018-10-04] MEDS: HYDROGEN PEROXIDE 480 ML BOTTLE TP SCH ×2 (09:56→21:34)
[2018-10-04] MEDS: MINERAL OIL/PETROL OINT 396 GM JAR TP SCH ×2 (09:56→21:34)
[2018-10-04] MEDS: TAMSULOSIN 0.4 MG CAP.SR.24H PO SCH (09:56)
[2018-10-04] MEDS: ACIDOPHILUS/BULGARICUS 1 EACH TAB.CHEW GT SCH (09:56)
[2018-10-04] MEDS: MULTIVITAMINS,THERAGRAN 1 UDTAB TABLET GT SCH (09:56)
[2018-10-04] MEDS: FINASTERIDE (5 MG) 5 MG TABLET GT SCH (09:56)
[2018-10-04] MEDS: Z GUARD REMEDY 4 OZ OINT TP SCH ×2 (09:57→21:34)
[2018-10-04] MEDS: NEOMY SULF/BACITRAC ZN/POLY 15 GM TUBE TP SCH ×2 (09:57→21:34)
[2018-10-04] MEDS: VITAMINS A AND D 56.7 GM TUBE TP SCH ×2 (09:57→21:34)
[2018-10-04] MEDS: IV D5/0.45 NACL 1,000 ML IV PRN ×2 (12:30→13:16)
--- NOTE | 2018-10-04 15:30 | NUR ---
Seen and examined by Nilam Pineda NP , aware of labs done today, NNO given at this time.
--- NOTE | 2018-10-04 15:34 | NUR ---
PT RCVD TRACH'D ON MECHANICAL VENT WITH CHARTED SETTINGS. HHN TX GIVEN AND NO ADVERSE REACTION NOTED. SX DONE. PT TRACH PATENT AND SECURE. CUFF CHECKED VIA MEN'S GOLF COACH. ALARMS ARE On VENT PLUGGED INTO RED OUTLET. AMBU BAG AT BEDSIDE. WILL CONTINUE TO MONITOR. Addendum: 10/04/18 at 1535 by BOBBY AKNG RT Amended: Links added.
[2018-10-04 15:49] VITALS: BP 122/67
--- NOTE | 2018-10-04 16:26 | NUR ---
Seen and examined by Jazmin Steven, DETECTIVE PRIVATE EYE aware of CBC, BMP result including positive for stool OB. Ms Wu scheduled patient for EGD in AM, NPO except for meds. Clamped GT and to obtain consent for EGD tomorrow. DETECTIVE PRIVATE EYE also ordered Protonix 40 mg. IV Q 12 hours and she did not want to start patient on Carafate. She said that if the son did not want to do the procedure to call her. Spoke with Dr. Johns and made aware of above orders and result of CMP and CBC, he gave verbal consent on the phone, however will be in to sign consent.
[2018-10-04] MEDS ORDERED: PANTOPRAZOLE 40 MG VIAL IV SCH (18:00)
--- NOTE | 2018-10-04 18:05 | NUR ---
Resident's son, Dr. Johns at bedside and requested to speak to Jazmin Steven NP left a message to provider of family's request.
--- NOTE | 2018-10-04 20:09 | NUR ---
RECEIVED TRACH YANY 6 PT ON MECH VENT WITH NOTED SETTINGS. TRACH IS PATENT AND SECURED. MILL TENDER SECOND OPERATOR DONE. Q6 BREATHING TX GIVEN WITH NO ADVERSE REACTION NOTED. SX MODERATE AMOUNT OF YELLOW/DAILEY SECRETIONS WITH PINK TINGED. VENT PLUGGED INTO RED OUTLET. ALARMS ON AND AUDIBLE. AMBU BAG @ BEDSIDE. NO RESP DISTRESS AT THIS TIME. WILL CONT TO MONITOR PT.
[2018-10-04 20:35] VITALS: BP 94/52
[2018-10-04] MEDS: PANTOPRAZOLE 40 MG VIAL IV SCH (21:00)
[2018-10-04] MEDS ORDERED: NEOMY SULF/BACITRAC ZN/POLY 15 GM TUBE TP SCH (21:00)
[2018-10-04] MEDS: BACI/NEOM/POLY B OINT PKT 1 UDPKT PACKET TP SCH (21:34)
[2018-10-04] MEDS: SUCRALFATE 1 G/10 ML UDC GT SCH (21:34)
[2018-10-04] MEDS: ATORVASTATIN 40 MG TABLET GT SCH (21:34)
[2018-10-04] MEDS: LATANOPROST EYE DROP 0.005% 2.5 ML BOTTLE EACHEYE SCH (21:34)
[2018-10-05 00:03] VITALS: BP 116/62
[2018-10-05] MEDS: BLOOD SUGAR DIAGNOSTIC 1 EACH STRIP IN SCH ×5 (00:04→23:19)
[2018-10-05] MEDS: SIMETHICONE SUSP 40 MG/0.6 ML BOTTLE GT SCH ×5 (00:04→23:19)
[2018-10-05] MEDS: INSULIN REGULAR, HUMAN 100 UNIT/ML 10 ML VIAL SQ SCH ×5 (00:05→23:20)
[2018-10-05] MEDS: ALBUTEROL FS 2.5 MG/0.5 ML VIAL.NEB NEB SCH ×4 (01:54→19:57)
[2018-10-05] MEDS: IPRATROPIUM NEB FS 0.5 MG/2.5 ML AMPUL.NEB IH SCH ×4 (01:54→19:57)
[2018-10-05] MEDS: ACETYLCYSTEINE 10% SOLN 400 MG/4 ML VIAL NEB SCH ×4 (01:55→19:57)
[2018-10-05] MEDS: IV D5/0.45 NACL 1,000 ML IV PRN (04:30)
[2018-10-05 05:13] VITALS: BP 139/76
[2018-10-05] MEDS: METOCLOPRAMIDE HCL 10 MG/10 ML UDC GT SCH ×3 (05:14→21:00)
[2018-10-05] MEDS: SUCRALFATE 1 G/10 ML UDC GT SCH ×4 (06:41→22:02)
[2018-10-05 07:57] VITALS: BP 138/72
--- NOTE | 2018-10-05 08:15 | NUR ---
Called nursing supervisor lathing to verify patient's schedule today for EGD, was told that patient is not on schedule. Verified with Jazmin Steven NP if patient is schedule for EGD today. She said she spoke with the son last night and most likely that procedure will not be done today, to resume GT feeding and DC IVF. Orders carried out.
--- NOTE | 2018-10-05 08:31 | NUR ---
RT NOTE RECEIVED TRACH YANY 6 PT ON MECH VENT WITH NOTED SETTINGS. TRACH IS PATENT AND SECURED. ETHICS MANAGER DONE. Q6 BREATHING TX GIVEN WITH NO ADVERSE REACTION NOTED. SX MODERATE AMOUNT OF YELLOW/DAILEY SECRETIONS WITH PINK TINGED. VENT PLUGGED INTO RED OUTLET. ALARMS ON AND AUDIBLE. AMBU BAG @ BEDSIDE. NO RESP DISTRESS AT THIS TIME. WILL CONT TO MONITOR PT.
[2018-10-05] MEDS: PANTOPRAZOLE 40 MG VIAL IV SCH ×2 (09:00→21:00)
[2018-10-05] MEDS: DORZOLAMIDE OPTH 2% 10 ML BOTTLE EACHEYE SCH ×3 (09:45→17:09)
[2018-10-05] MEDS: VITAMINS A AND D 56.7 GM TUBE TP SCH ×2 (09:46→21:01)
[2018-10-05] MEDS: ASCORBIC ACID 500 MG TABLET GT SCH (09:46)
[2018-10-05] MEDS: MULTIVITAMINS,THERAGRAN 1 UDTAB TABLET GT SCH (09:46)
[2018-10-05] MEDS: MINERAL OIL/PETROL OINT 396 GM JAR TP SCH ×2 (09:46→21:00)
[2018-10-05] MEDS: HYDROGEN PEROXIDE 480 ML BOTTLE TP SCH ×2 (09:46→21:00)
[2018-10-05] MEDS: TAMSULOSIN 0.4 MG CAP.SR.24H PO SCH (09:46)
[2018-10-05] MEDS: NEOMY SULF/BACITRAC ZN/POLY 15 GM TUBE TP SCH ×2 (09:46→21:01)
[2018-10-05] MEDS: LACOSAMIDE 50 MG TABLET GT SCH ×2 (09:46→21:00)
[2018-10-05] MEDS: BACI/NEOM/POLY B OINT PKT 1 UDPKT PACKET TP SCH ×2 (09:46→21:01)
[2018-10-05] MEDS: CARVEDILOL 6.25 MG TABLET GT SCH ×2 (09:46→21:00)
[2018-10-05] MEDS: Z GUARD REMEDY 4 OZ OINT TP SCH ×2 (09:46→21:01)
[2018-10-05] MEDS: LINAGLIPTIN 5 MG TABLET GT SCH (09:46)
[2018-10-05] MEDS: CHLORHEXIDINE GLUCONATE 15 ML UDC MM SCH ×2 (09:46→21:00)
[2018-10-05] MEDS: ACIDOPHILUS/BULGARICUS 1 EACH TAB.CHEW GT SCH (09:46)
[2018-10-05] MEDS: FINASTERIDE (5 MG) 5 MG TABLET GT SCH (09:46)
--- NOTE | 2018-10-05 16:30 | NUR ---
Seen and examined by Dr. Lugo, reviewed lab results and updated him what GI plans to do. Dr. Lugo assessed patient's abdomen and lower extremities. Patient's skin has popped blisters due fluid retention. He said that he will discuss with Dr. Parker, buyer grain the best treatment plan for the patient to manage elevated BUN and address his fluid retention. MD will inform the nurse once discussion has taken place. Resident's son informed of above. Dr. Johns also agreed to put patient OOB 3x a week, , due to his condition.
[2018-10-05 18:35] VITALS: BP 138/72
[2018-10-05 18:36] VITALS: BP 132/68
[2018-10-05 19:46] VITALS: BP 140/67
[2018-10-05] MEDS: ATORVASTATIN 40 MG TABLET GT SCH (21:01)
[2018-10-05] MEDS: LATANOPROST EYE DROP 0.005% 2.5 ML BOTTLE EACHEYE SCH (21:01)
--- NOTE | 2018-10-05 21:49 | NUR ---
RT NOTE PATIENT RECEIVED TRACHED ON MECHANICAL VENTILATION. CUFF CHECKED VIA RACK LOADER. SP02 > 92%. ALARMS ON AND AUDIBLE. VENT PLUGGED INTO RED OUTLET. TX GIVEN, NO ADVERSE REACTIONS NOTED. SX DONE, MODERATE THICK YELLOW SECRETIONS NOTED. PATIENT STABLE. WILL MONITOR. Addendum: 10/05/18 at 2150 by GINGER YOU RT Amended: Links added.
[2018-10-06 01:14] VITALS: BP 132/74
[2018-10-06] MEDS: VITAL AF 1.2 1,000 ML BOTTLE GT SCH ×2 (01:23→22:49)
[2018-10-06] MEDS: ALBUTEROL FS 2.5 MG/0.5 ML VIAL.NEB NEB SCH ×4 (01:44→19:45)
[2018-10-06] MEDS: ACETYLCYSTEINE 10% SOLN 400 MG/4 ML VIAL NEB SCH ×4 (01:44→19:46)
[2018-10-06] MEDS: IPRATROPIUM NEB FS 0.5 MG/2.5 ML AMPUL.NEB IH SCH ×4 (01:44→19:45)
[2018-10-06] MEDS: BLOOD SUGAR DIAGNOSTIC 1 EACH STRIP IN SCH ×3 (05:10→18:22)
[2018-10-06] MEDS: INSULIN REGULAR, HUMAN 100 UNIT/ML 10 ML VIAL SQ SCH ×3 (05:10→18:23)
[2018-10-06] MEDS: SIMETHICONE SUSP 40 MG/0.6 ML BOTTLE GT SCH ×3 (05:10→17:44)
[2018-10-06] MEDS: METOCLOPRAMIDE HCL 10 MG/10 ML UDC GT SCH ×3 (05:10→20:44)
[2018-10-06 05:11] VITALS: BP 134/76
[2018-10-06] MEDS: SUCRALFATE 1 G/10 ML UDC GT SCH ×4 (06:47→21:12)
[2018-10-06 08:00] VITALS: BP 138/81
[2018-10-06 08:03] VITALS: BP 136/81
[2018-10-06] MEDS: DORZOLAMIDE OPTH 2% 10 ML BOTTLE EACHEYE SCH ×3 (08:30→17:44)
[2018-10-06] MEDS: ACIDOPHILUS/BULGARICUS 1 EACH TAB.CHEW GT SCH (08:30)
[2018-10-06] MEDS: CARVEDILOL 6.25 MG TABLET GT SCH ×2 (08:30→20:44)
[2018-10-06] MEDS: FINASTERIDE (5 MG) 5 MG TABLET GT SCH (08:31)
[2018-10-06] MEDS: MULTIVITAMINS,THERAGRAN 1 UDTAB TABLET GT SCH (08:32)
[2018-10-06] MEDS: ASCORBIC ACID 500 MG TABLET GT SCH (08:33)
[2018-10-06] MEDS: LINAGLIPTIN 5 MG TABLET GT SCH (08:33)
[2018-10-06] MEDS: TAMSULOSIN 0.4 MG CAP.SR.24H PO SCH (08:35)
[2018-10-06] MEDS: CHLORHEXIDINE GLUCONATE 15 ML UDC MM SCH ×2 (08:38→20:44)
[2018-10-06] MEDS: LACOSAMIDE 50 MG TABLET GT SCH ×2 (08:38→20:44)
[2018-10-06] MEDS: MINERAL OIL/PETROL OINT 396 GM JAR TP SCH ×2 (09:00→20:45)
[2018-10-06] MEDS: NEOMY SULF/BACITRAC ZN/POLY 15 GM TUBE TP SCH ×2 (09:00→20:45)
[2018-10-06] MEDS: PANTOPRAZOLE 40 MG VIAL IV SCH ×2 (09:00→21:00)
[2018-10-06] MEDS: VITAMINS A AND D 56.7 GM TUBE TP SCH ×2 (09:00→20:45)
[2018-10-06] MEDS: BACI/NEOM/POLY B OINT PKT 1 UDPKT PACKET TP SCH ×2 (09:00→20:45)
[2018-10-06] MEDS: HYDROGEN PEROXIDE 480 ML BOTTLE TP SCH ×2 (09:00→20:45)
[2018-10-06] MEDS: Z GUARD REMEDY 4 OZ OINT TP SCH ×2 (09:00→20:45)
[2018-10-06 12:00] VITALS: BP 122/67
--- NOTE | 2018-10-06 16:00 | NUR ---
Notified Dr. Lugo that patient with GT bleeding at stoma site. Patient also bleeding from the mouth possibly bit his tongue. Mouth guard in place. Resident's son aware. Dr. Lugo ordered to refer for GI follow-up. Jazmin Steven NP notified.
[2018-10-06] MEDS: ACETAMINOPHEN 650 MG/20.3 ML UDC GT PRN (17:15)
--- NOTE | 2018-10-06 18:00 | NUR ---
Jazmin MANAGER ANALYSIS came to see patient, NNO given. Made aware that patient has dark brownish leaking from GT site, with low grade T100 but was given Tylenol. She said to monitor. Son at bedside and spoke with Jazmin. Per MANAGER ANALYSIS, EGD is planned for Monday. Endorsed.
--- NOTE | 2018-10-06 18:54 | NUR ---
171 noted discomfort m/b temp. 100.0 axillary and lip bitting, given tylenol 650mg prn as order. CN(Forrest) notified. 1814 pt calm at this time, temp 98.9 axillary, HR 89 O2 Sat 100%.CN notified.
[2018-10-06 19:44] VITALS: BP 139/68
[2018-10-06] MEDS: LATANOPROST EYE DROP 0.005% 2.5 ML BOTTLE EACHEYE SCH (21:12)
[2018-10-06] MEDS: ATORVASTATIN 40 MG TABLET GT SCH (21:12)
--- NOTE | 2018-10-06 23:50 | NUR ---
RT NOTE PATIENT WAS RECEIVED ON CONTINUOUS VENT SUPPORT ON NOTED VENT SETTINGS. OIL WELL DRILLING MANAGER DONE. AMBU BAG @ BEDSIDE. HHN TREATMENT WAS GIVEN WITH NO ADVERSE REACTION NOTED. SUCTION DONE PRN.TRACH TUBE PATENT AND SECURED. ALARMS ON AND AUDIBLE. NO RESPIRATORY DISTRESS NOTED AT THIS TIME. WILL CONTINUE TO MONITOR PATIENT.
--- NOTE | 2018-10-07 00:48 | NUR ---
RT NOTE PATIENT WAS RECEIVED ON CONTINUOUS VENT SUPPORT ON NOTED VENT SETTINGS. HHN INLINE TREATMENT WAS GIVEN, NO ADVERSE REACTION NOTED ,PRN SUCTION WAS DONE. TRACH TUBE PATENT AND SECURED. ALARMS ON AND AUDIBLE. WILL CONTINUE TO MONITOR PATIENT Addendum: 10/07/18 at 0049 by ABEBA SUAREZ RT Amended: Links added.
[2018-10-07] MEDS: SIMETHICONE SUSP 40 MG/0.6 ML BOTTLE GT SCH ×4 (00:49→18:38)
[2018-10-07] MEDS: BLOOD SUGAR DIAGNOSTIC 1 EACH STRIP IN SCH ×4 (00:49→18:38)
[2018-10-07] MEDS: INSULIN REGULAR, HUMAN 100 UNIT/ML 10 ML VIAL SQ SCH ×4 (00:50→18:39)
[2018-10-07 00:52] VITALS: BP 132/77
[2018-10-07] MEDS: IPRATROPIUM NEB FS 0.5 MG/2.5 ML AMPUL.NEB IH SCH ×4 (01:18→19:03)
[2018-10-07] MEDS: ALBUTEROL FS 2.5 MG/0.5 ML VIAL.NEB NEB SCH ×4 (01:19→19:03)
[2018-10-07] MEDS: ACETYLCYSTEINE 10% SOLN 400 MG/4 ML VIAL NEB SCH ×4 (01:20→19:03)
[2018-10-07 04:27] VITALS: BP 129/68
[2018-10-07] MEDS: METOCLOPRAMIDE HCL 10 MG/10 ML UDC GT SCH ×3 (04:28→20:44)
[2018-10-07] MEDS: SUCRALFATE 1 G/10 ML UDC GT SCH ×4 (06:35→21:42)
[2018-10-07 07:28] VITALS: BP 145/78
[2018-10-07 08:05] VITALS: BP 145/78
--- NOTE | 2018-10-07 08:40 | NUR ---
ECG result was relayed to Dr. Ramírez but he said he's off today and has to relay to primary physician.
[2018-10-07] MEDS: DORZOLAMIDE OPTH 2% 10 ML BOTTLE EACHEYE SCH ×3 (08:42→17:27)
--- NOTE | 2018-10-07 08:42 | NUR ---
ECG result relayed to Dr. Lugo and gave order to have Dr. Mckeon (Cardio) assess the patient.
[2018-10-07] MEDS: CARVEDILOL 6.25 MG TABLET GT SCH ×2 (08:44→20:44)
[2018-10-07] MEDS: ACIDOPHILUS/BULGARICUS 1 EACH TAB.CHEW GT SCH (08:44)
[2018-10-07] MEDS: ASCORBIC ACID 500 MG TABLET GT SCH (08:45)
[2018-10-07] MEDS: LINAGLIPTIN 5 MG TABLET GT SCH (08:45)
[2018-10-07] MEDS: FINASTERIDE (5 MG) 5 MG TABLET GT SCH (08:45)
[2018-10-07] MEDS: CHLORHEXIDINE GLUCONATE 15 ML UDC MM SCH ×2 (08:46→20:44)
[2018-10-07] MEDS: TAMSULOSIN 0.4 MG CAP.SR.24H PO SCH (08:46)
[2018-10-07] MEDS: LACOSAMIDE 50 MG TABLET GT SCH ×2 (08:49→21:42)
[2018-10-07] MEDS: MULTIVITAMINS,THERAGRAN 1 UDTAB TABLET GT SCH (08:49)
[2018-10-07] MEDS: HYDROGEN PEROXIDE 480 ML BOTTLE TP SCH ×2 (09:00→20:43)
[2018-10-07] MEDS: Z GUARD REMEDY 4 OZ OINT TP SCH ×2 (09:00→20:43)
[2018-10-07] MEDS: NEOMY SULF/BACITRAC ZN/POLY 15 GM TUBE TP SCH ×2 (09:00→20:43)
[2018-10-07] MEDS: VITAMINS A AND D 56.7 GM TUBE TP SCH ×2 (09:00→20:43)
[2018-10-07] MEDS: BACI/NEOM/POLY B OINT PKT 1 UDPKT PACKET TP SCH ×2 (09:00→20:43)
[2018-10-07] MEDS: MINERAL OIL/PETROL OINT 396 GM JAR TP SCH ×2 (09:00→20:44)
[2018-10-07] MEDS: PANTOPRAZOLE 40 MG VIAL IV SCH ×2 (09:00→20:47)
--- NOTE | 2018-10-07 10:18 | NUR ---
Called the office of Dr. Mckeon, spoked with Enrike he said he will page the doctor. Dr. Johns (Son) informed.
[2018-10-07 12:00] VITALS: BP 138/74
--- NOTE | 2018-10-07 16:40 | NUR ---
Spoke with Dr. Mckeon, relayed to him the result of ECG he said he will come to see resident stacey. Dr. Johns (Son) informed.
--- NOTE | 2018-10-07 17:00 | NUR ---
Jazmin, CARTON WRAPPER made rounds with new orders and carried out. For EGD in AM before 1000. NPO post midnight. But she wants the patient to be seen by Dr. Mckeon before the procedure for clearance.
--- NOTE | 2018-10-07 18:40 | NUR ---
Spoke with Dr. Jose Abreuoway (Son), he said that he doesn't want the EGD procedure to be done at this time. GI bleeding stopped and he wants to continue with the present treatment. If GI bleeding happens again then he will consent the EGD to be done. BRANDO Wu and Dr. Lugo informed.
[2018-10-07] MEDS: VITAL AF 1.2 1,000 ML BOTTLE GT SCH (18:50)
[2018-10-07 19:56] VITALS: BP 147/86
[2018-10-07] MEDS: ATORVASTATIN 40 MG TABLET GT SCH (21:42)
[2018-10-07] MEDS: LATANOPROST EYE DROP 0.005% 2.5 ML BOTTLE EACHEYE SCH (21:42)
[2018-10-08] VITALS: BP 147/86
[2018-10-08] MEDS: BLOOD SUGAR DIAGNOSTIC 1 EACH STRIP IN SCH ×5 (00:22→23:36)
[2018-10-08] MEDS: SIMETHICONE SUSP 40 MG/0.6 ML BOTTLE GT SCH ×5 (00:22→23:46)
[2018-10-08] MEDS: INSULIN REGULAR, HUMAN 100 UNIT/ML 10 ML VIAL SQ SCH ×5 (00:23→23:41)
[2018-10-08] MEDS: ACETYLCYSTEINE 10% SOLN 400 MG/4 ML VIAL NEB SCH ×4 (00:40→20:02)
[2018-10-08] MEDS: IPRATROPIUM NEB FS 0.5 MG/2.5 ML AMPUL.NEB IH SCH ×4 (00:40→20:02)
[2018-10-08] MEDS: ALBUTEROL FS 2.5 MG/0.5 ML VIAL.NEB NEB SCH ×4 (00:40→20:02)
[2018-10-08 04:00] VITALS: BP 130/71
[2018-10-08] MEDS: METOCLOPRAMIDE HCL 10 MG/10 ML UDC GT SCH ×3 (05:16→21:19)
[2018-10-08] MEDS: SUCRALFATE 1 G/10 ML UDC GT SCH ×4 (07:30→21:20)
[2018-10-08 07:34] VITALS: BP 145/77
--- NOTE | 2018-10-08 07:57 | NUR ---
RT Pt received a Shiley 6 trach on the vent with noted settings. Pt is awake but does not follow commands. Vent alarms are set and audible with BVM by bedside. STARS ANALYTICAL LEAD cuff pressure noted. Vent is plugged into red outlet. HHN tx given with no adverse reactions. No respiratory distress noted at this time, will continue to monitor. Addendum: 10/08/18 at 0834 by MARCELO KENNEDY RT Amended: Links added.
[2018-10-08] MEDS: NEOMY SULF/BACITRAC ZN/POLY 15 GM TUBE TP SCH ×2 (09:00→21:20)
[2018-10-08] MEDS: VITAMINS A AND D 56.7 GM TUBE TP SCH ×2 (09:00→21:20)
[2018-10-08] MEDS: MINERAL OIL/PETROL OINT 396 GM JAR TP SCH ×2 (09:00→21:19)
[2018-10-08] MEDS: LACOSAMIDE 50 MG TABLET GT SCH ×2 (09:00→21:19)
[2018-10-08] MEDS: TAMSULOSIN 0.4 MG CAP.SR.24H PO SCH (09:00)
[2018-10-08] MEDS: DORZOLAMIDE OPTH 2% 10 ML BOTTLE EACHEYE SCH ×3 (09:00→17:00)
[2018-10-08] MEDS: ACIDOPHILUS/BULGARICUS 1 EACH TAB.CHEW GT SCH (09:00)
[2018-10-08] MEDS: LINAGLIPTIN 5 MG TABLET GT SCH (09:00)
[2018-10-08] MEDS: CHLORHEXIDINE GLUCONATE 15 ML UDC MM SCH ×2 (09:00→21:19)
[2018-10-08] MEDS: FINASTERIDE (5 MG) 5 MG TABLET GT SCH (09:00)
[2018-10-08] MEDS: Z GUARD REMEDY 4 OZ OINT TP SCH ×2 (09:00→21:20)
[2018-10-08] MEDS: ASCORBIC ACID 500 MG TABLET GT SCH (09:00)
[2018-10-08] MEDS: HYDROGEN PEROXIDE 480 ML BOTTLE TP SCH ×2 (09:00→21:20)
[2018-10-08] MEDS: MULTIVITAMINS,THERAGRAN 1 UDTAB TABLET GT SCH (09:00)
[2018-10-08] MEDS: BACI/NEOM/POLY B OINT PKT 1 UDPKT PACKET TP SCH ×2 (09:00→21:20)
[2018-10-08] MEDS: PANTOPRAZOLE 40 MG VIAL IV SCH ×2 (09:00→21:19)
--- NOTE | 2018-10-08 09:20 | NUR ---
Seen by Dr Mckeon. He looked at pt's EKG result and ordered to repeat it.
--- NOTE | 2018-10-08 09:40 | NUR ---
Relayed EKG result to Dr Mckeon. EKG showed accelerated junctional rhythm, rightward axis, low voltage QRS, septal infarct, age undetermined.
--- NOTE | 2018-10-08 10:10 | NUR ---
Dr Mike LUCIO'd Lipitor and Coreg.
[2018-10-08] MEDS: VITAL AF 1.2 1,000 ML BOTTLE GT SCH (11:50)
[2018-10-08 12:00] VITALS: BP 138/80
--- NOTE | 2018-10-08 14:40 | NUR ---
Pt. was seeing by the podiatry Dr. Dotson on appointment was made for 10/26. Pt. was seen by optometry (Dr. Reddy) today. A dentist appt with Dr. Sharma was made for 11/19.
--- NOTE | 2018-10-08 16:29 | NUR ---
Bleeding was noted in pt's mouth and trach secretions are blood-tinged. Pt was seen biting his lower lip and pt must have also bit the left side of his tongue. Left side of tongue has an open area noted with blood. Provided oral care and place mouthguard.
--- NOTE | 2018-10-08 18:15 | NUR ---
Pt's son came to visit. Notified him that Dr Mckeon saw pt today, ordered EKG, and also ordered to DC Lipitor and Coreg. Also informed him that pt was biting his lower lip earlier and the left side of his tongue, blood was noted from the mouth and trach.
--- NOTE | 2018-10-08 18:40 | NUR ---
Check pt for gastric residual and any signs of GI bleed. 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 Pt had about 40 mL of blood-tinged residual. Notified LEAD PRODUCER Jazmin Steven.
--- NOTE | 2018-10-08 19:23 | NUR ---
Seen by BRANDO Pineda. Notified her that pt bit his lower lip and tongue, pt has some bleeding from the mouth and trach. Also notified her that pt has blood-tinged residual. BRANDO Pineda said it might be from the pt's mouth.
[2018-10-08 19:55] VITALS: BP 141/77
[2018-10-08] MEDS: LATANOPROST EYE DROP 0.005% 2.5 ML BOTTLE EACHEYE SCH (21:20)
[2018-10-09] VITALS (7 sets, daily range): BP systolic 128–148; BP diastolic 59–92
[2018-10-09] MEDS: VITAL AF 1.2 1,000 ML BOTTLE GT SCH (01:12)
[2018-10-09] MEDS: IPRATROPIUM NEB FS 0.5 MG/2.5 ML AMPUL.NEB IH SCH ×4 (01:55→18:56)
[2018-10-09] MEDS: ALBUTEROL FS 2.5 MG/0.5 ML VIAL.NEB NEB SCH ×4 (01:55→18:56)
[2018-10-09] MEDS: ACETYLCYSTEINE 10% SOLN 400 MG/4 ML VIAL NEB SCH ×4 (01:55→18:56)
--- NOTE | 2018-10-09 04:13 | NUR ---
Patient noted with small amount of pinkish secretions from the trach. Will continue to monitor and endorse to the day shift nurse for continuity of care. Addendum: 10/09/18 at 0627 by CHELSIE MONTANO RN Provided oral care and mouth guard in place
[2018-10-09] MEDS: METOCLOPRAMIDE HCL 10 MG/10 ML UDC GT SCH ×3 (05:16→20:17)
[2018-10-09] MEDS: SIMETHICONE SUSP 40 MG/0.6 ML BOTTLE GT SCH ×3 (05:16→17:40)
[2018-10-09] MEDS: BLOOD SUGAR DIAGNOSTIC 1 EACH STRIP IN SCH ×3 (05:24→17:40)
[2018-10-09] MEDS: INSULIN REGULAR, HUMAN 100 UNIT/ML 10 ML VIAL SQ SCH ×3 (05:25→17:40)
[2018-10-09 07:10] LABS: BASOPHILS % (AUTO) 0.4 % (0.0-2.0); HEMATOCRIT 25 % (39-51); HEMOGLOBIN 8.2 g/dL (13.5-17.5); LYMPHOCYTES % (AUTO) 15.1 % (20.0-44.0); MEAN CORPUSCULAR HGB CONC 33 g/dl (31.0-36.0); MEAN CORPUSCULAR VOLUME 89 fL (80-96); MONOCYTES # (AUTO) 0.5 /CMM (0.1-1.30); NEUTROPHILS # (AUTO) 4.6 /CMM (1.8-8.9); NEUTROPHILS % (AUTO) 72.5 % (43.0-81.0); PLATELET COUNT (AUTO) 96 /CMM (150-450); RED BLOOD CELL COUNT(AUTO) 2.82 MIL/uL (4.5-6.0); WHITE BLOOD COUNT (AUTO) 6.4 K/uL (4.3-11.0)
[2018-10-09 07:28] LABS: CALCIUM, SERUM 8.4 mg/dL (8.5-10.1); CARBON DIOXIDE 29 mmol/L (21-32); CHLORIDE 109 mmol/L (98-107); CREATININE 2.3 mg/dL (0.6-1.3); GLUCOSE 224 mg/dL (74-106); MAGNESIUM 2.2 mg/dL (1.8-2.4); PHOSPHORUS 1.1 mg/dL (2.5-4.9); SODIUM SERUM 149 mmol/L (136-145)
[2018-10-09 07:29] LABS: UREA NITROGEN, BLOOD 94 mg/dL (7-18)
[2018-10-09] MEDS: SUCRALFATE 1 G/10 ML UDC GT SCH ×4 (08:03→21:26)
[2018-10-09] MEDS: MULTIVITAMINS,THERAGRAN 1 UDTAB TABLET GT SCH (08:44)
[2018-10-09] MEDS: DORZOLAMIDE OPTH 2% 10 ML BOTTLE EACHEYE SCH ×3 (08:44→16:55)
[2018-10-09] MEDS: LINAGLIPTIN 5 MG TABLET GT SCH (08:44)
[2018-10-09] MEDS: FINASTERIDE (5 MG) 5 MG TABLET GT SCH (08:44)
[2018-10-09] MEDS: LACOSAMIDE 50 MG TABLET GT SCH ×2 (08:44→20:17)
[2018-10-09] MEDS: ACIDOPHILUS/BULGARICUS 1 EACH TAB.CHEW GT SCH (08:44)
[2018-10-09] MEDS: CHLORHEXIDINE GLUCONATE 15 ML UDC MM SCH ×2 (08:44→20:18)
[2018-10-09] MEDS: ASCORBIC ACID 500 MG TABLET GT SCH (08:44)
[2018-10-09] MEDS: TAMSULOSIN 0.4 MG CAP.SR.24H PO SCH (08:45)
[2018-10-09] MEDS: VITAMINS A AND D 56.7 GM TUBE TP SCH ×2 (08:45→21:26)
[2018-10-09] MEDS: Z GUARD REMEDY 4 OZ OINT TP SCH ×2 (08:45→21:26)
[2018-10-09] MEDS: MINERAL OIL/PETROL OINT 396 GM JAR TP SCH ×2 (08:45→21:24)
[2018-10-09] MEDS: HYDROGEN PEROXIDE 480 ML BOTTLE TP SCH ×2 (08:45→21:25)
[2018-10-09] MEDS: BACI/NEOM/POLY B OINT PKT 1 UDPKT PACKET TP SCH ×2 (09:00→21:26)
[2018-10-09] MEDS: NEOMY SULF/BACITRAC ZN/POLY 15 GM TUBE TP SCH ×4 (09:00→21:25)
--- NOTE | 2018-10-09 09:15 | NUR ---
Seen by Dr Ramírez. Relayed abnormal lab results to him. He said he will take care of it.
[2018-10-09] MEDS: PANTOPRAZOLE 40 MG VIAL IV SCH ×2 (09:41→21:18)
--- NOTE | 2018-10-09 11:52 | NUR ---
Pt was noted with multiple closed blisters on the left buttock. Pt has anasarca, low albumin 1.9, BUN 94, Cr 2.3. Pt on a low air loss mattress and [facility] Lugo.
--- NOTE | 2018-10-09 13:10 | NUR ---
Followed up with Dr Ramírez if he wanted to order anything for K 3.0. He said he will enter orders this afternoon.
[2018-10-09] MEDS ORDERED: POTASSIUM CHLORIDE 20 MEQ POWDER PACKET GT ONE ×2 (14:00→16:30)
--- NOTE | 2018-10-09 14:08 | NUR ---
Dr Ramírez ordered to give Potassium Chloride 20 mEq via GT x 1 for hypokalemia (K 3.0).
--- NOTE | 2018-10-09 16:15 | NUR ---
Dr Ramírez said to defer pt's abnormal lab results to materials management clerk. Paged Dr Parker and notified him of abnormal lab results. He ordered to give Neutraphos 2 packets via GT daily for hypophosphatemia (Phos 1.1), KCl 60 mEq GT in an hour (Dr Parker was informed that pt was given KCl 20 mEq via GT x 1 per as ordered by Dr Ramírez), CBC BMP Mg Phos in AM. Notified Dr Johns. Addendum: 10/09/18 at 1759 by MAGDA LOBO RN Also notified Dr Johns of today's lab results and multiple closed blisters on the left buttock.
[2018-10-09] MEDS: NEUTRA PHOS 1 POWD.PACKET GT SCH (17:41)
[2018-10-09] MEDS: LATANOPROST EYE DROP 0.005% 2.5 ML BOTTLE EACHEYE SCH (21:26)
--- NOTE | 2018-10-09 22:00 | NUR ---
RN NOTES LUMBER CARRIER OPERATOR reported blisters on left thigh. Assessed and noted multiple blisters to left thigh, also noted blisters to left buttocks. Noted more swelling to penis and scrotum and pubic area, and noted abdominal distention. Diaper dry. Check PVR with bladder scan and result showed PVR >680ml. Called Dr. Lugo and received new order for dyer catheter. Son at bedside and aware of new orders.
[2018-10-10] VITALS: BP 138/89
--- NOTE | 2018-10-10 | NUR ---
RN NOTES Unable to insert dyer catheter due to swelling. Obtained new order form ribbon weaver Linden Fu NP for dyer catheter. Inserted dyer with no difficulty and drained 500ml and clamped. Will return to unclamp and drain remaining urine.
[2018-10-10] MEDS: BLOOD SUGAR DIAGNOSTIC 1 EACH STRIP IN SCH ×5 (00:28→23:43)
[2018-10-10] MEDS: SIMETHICONE SUSP 40 MG/0.6 ML BOTTLE GT SCH ×5 (00:28→23:43)
[2018-10-10] MEDS: INSULIN REGULAR, HUMAN 100 UNIT/ML 10 ML VIAL SQ SCH ×5 (00:30→23:44)
--- NOTE | 2018-10-10 01:00 | NUR ---
RN NOTES Unclampped dyer catheter and drained remaining urine output of 250ml. Pt in stable condition. Will continue to monitor.
[2018-10-10] MEDS: ALBUTEROL FS 2.5 MG/0.5 ML VIAL.NEB NEB SCH ×4 (01:34→20:15)
[2018-10-10] MEDS: ACETYLCYSTEINE 10% SOLN 400 MG/4 ML VIAL NEB SCH ×4 (01:34→20:15)
[2018-10-10] MEDS: IPRATROPIUM NEB FS 0.5 MG/2.5 ML AMPUL.NEB IH SCH ×4 (01:34→20:15)
[2018-10-10 04:00] VITALS: BP 131/61
[2018-10-10] MEDS: METOCLOPRAMIDE HCL 10 MG/10 ML UDC GT SCH ×3 (05:02→20:30)
[2018-10-10 07:08] LABS: BASOPHILS % (AUTO) 0.3 % (0.0-2.0); EOSINOPHILS % (AUTO) 4.4 % (0.0-6.0); HEMATOCRIT 25 % (39-51); LYMPHOCYTES % (AUTO) 17.6 % (20.0-44.0); MEAN CORPUSCULAR HGB CONC 32 g/dl (31.0-36.0); MEAN CORPUSCULAR VOLUME 89 fL (80-96); MONOCYTES # (AUTO) 0.4 /CMM (0.1-1.30); MONOCYTES % (AUTO) 7.3 % (2.0-12.0); NEUTROPHILS # (AUTO) 3.9 /CMM (1.8-8.9); NEUTROPHILS % (AUTO) 70.4 % (43.0-81.0); PLATELET COUNT (AUTO) 100 /CMM (150-450); RED BLOOD CELL COUNT(AUTO) 2.84 MIL/uL (4.5-6.0); WHITE BLOOD COUNT (AUTO) 5.5 K/uL (4.3-11.0)
[2018-10-10] MEDS: SUCRALFATE 1 G/10 ML UDC GT SCH ×4 (07:30→21:42)
[2018-10-10 07:35] LABS: CALCIUM, SERUM 8.3 mg/dL (8.5-10.1); CARBON DIOXIDE 29 mmol/L (21-32); CHLORIDE 111 mmol/L (98-107); CREATININE 2.7 mg/dL (0.6-1.3); GLUCOSE 245 mg/dL (74-106); MAGNESIUM 2.2 mg/dL (1.8-2.4); PHOSPHORUS 1.3 mg/dL (2.5-4.9); POTASSIUM 3.7 mmol/L (3.5-5.1); SODIUM SERUM 150 mmol/L (136-145)
[2018-10-10 07:37] VITALS: BP 138/67
[2018-10-10 07:38] LABS: UREA NITROGEN, BLOOD 108 mg/dL (7-18)
[2018-10-10] MEDS: NEOMY SULF/BACITRAC ZN/POLY 15 GM TUBE TP SCH ×6 (09:00→20:31)
[2018-10-10] MEDS: HYDROGEN PEROXIDE 480 ML BOTTLE TP SCH ×2 (09:00→20:31)
[2018-10-10] MEDS: MINERAL OIL/PETROL OINT 396 GM JAR TP SCH ×2 (09:00→20:31)
[2018-10-10] MEDS: NEUTRA PHOS 1 POWD.PACKET GT SCH (09:00)
[2018-10-10] MEDS: PANTOPRAZOLE 40 MG VIAL IV SCH (09:00)
[2018-10-10] MEDS ORDERED: NEUTRA PHOS 1 POWD.PACKET GT SCH (09:00)
--- NOTE | 2018-10-10 09:23 | NUR ---
RT RECEIVED PT ON MECH VENT WITH NOTED SETTINGS. SNOW PLOW OPERATOR DONE AND TRACH IS SECURE. VENT ALARMS CHECKED AND AUDIBLE. VENT PLUGGED IN RED OUTLET. AMBU BAG AND SPARE TRACH NOTED HOB. B/S JOSE RHONCHI. SX WITH MOD THK DAILEY SECRETIONS. BREATHING TX GIVEN AND NO ADV REACTION. PT ON CONTINUOUS PULSE OX. PT TOLERATING SETTINGS WELL, NO SOB OR RESP DISTRESS NOTED. WILL CONTINUE TO MONITOR T/O SHIFT.
[2018-10-10] MEDS: LACOSAMIDE 50 MG TABLET GT SCH ×2 (09:30→20:30)
[2018-10-10] MEDS: ACIDOPHILUS/BULGARICUS 1 EACH TAB.CHEW GT SCH (09:30)
[2018-10-10] MEDS: LINAGLIPTIN 5 MG TABLET GT SCH (09:30)
[2018-10-10] MEDS: FINASTERIDE (5 MG) 5 MG TABLET GT SCH (09:30)
[2018-10-10] MEDS: DORZOLAMIDE OPTH 2% 10 ML BOTTLE EACHEYE SCH ×3 (09:30→16:25)
[2018-10-10] MEDS: CHLORHEXIDINE GLUCONATE 15 ML UDC MM SCH ×2 (09:30→20:30)
[2018-10-10] MEDS: ASCORBIC ACID 500 MG TABLET GT SCH (09:30)
[2018-10-10] MEDS: BACI/NEOM/POLY B OINT PKT 1 UDPKT PACKET TP SCH ×2 (09:30→20:31)
[2018-10-10] MEDS: TAMSULOSIN 0.4 MG CAP.SR.24H PO SCH (09:30)
[2018-10-10] MEDS: MULTIVITAMINS,THERAGRAN 1 UDTAB TABLET GT SCH (09:30)
[2018-10-10] MEDS: VITAMINS A AND D 56.7 GM TUBE TP SCH ×2 (09:31→20:32)
[2018-10-10] MEDS: Z GUARD REMEDY 4 OZ OINT TP SCH ×2 (09:31→20:32)
--- NOTE | 2018-10-10 10:00 | NUR ---
Dr.Hooman Parker reviewed CBC and BMP result collected this AM with BUN 108, Creat 2.7, Na 150. Dr. Parker said he will enter orders in [employer].
--- NOTE | 2018-10-10 14:00 | NUR ---
Seen and examined by Nilam Pineda, BRANDO, NNO given. Kept her informed of the current order by Dr. gill. She said that she will discuss patient's case with Dr. Ramírez.
[2018-10-10] MEDS: IV D5W 1,000 ML IV PRN (14:38)
--- NOTE | 2018-10-10 15:42 | NUR ---
WOUND CARE CONSULT: PT SEEN FOR LEFT BUTTOCK EDEMA BLISTERS, MOSTLY INTACT WITH FEW OPEN BLISTERS NOTED. CONCUR WITH CURRENT TREATMENT OF TRIPLE AB OINTMENT AND RECOMMEND PROTECT WITH MEPILEX. DISCUSSED WITH NURSING STAFF. INTACT BLISTERS ALSO NOTED TO LEFT ANTERIOR THIGH. 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 ALL SKIN PROTECTION MEASURES IN PLACE INCLUDING FIRST STEP CIRRUS LOW AIRLOSS MATTRESS. WILL SEE PRN. IN AGREEMENT WITH PLAN OF CARE.
[2018-10-10] MEDS: VITAL AF 1.2 1,000 ML BOTTLE GT SCH (16:26)
--- NOTE | 2018-10-10 17:30 | NUR ---
At 1310 Noted an order from Dr. Harpreet Parker for IVF D5 at 100 cc/hr, DC Protonix IV and labs in AM. MD made aware that patient is extremely edematous and developing blisters in his buttocks. He acknowledged patient is edematous and would like to continue with IVF and check his labs in AM and ordered Pepcid 20 mg./GT to replace Protonix IV. Wound nurse assessed patient's blister with recommendations to add Mepilex to current treatment order of triple ATB in the L buttock multiple open blisters. Order carried out. Dr. Johns (son) informed.
[2018-10-10 18:06] VITALS: BP 138/67
[2018-10-10 20:05] VITALS: BP 127/60
[2018-10-10] MEDS: ACETAMINOPHEN 650 MG/20.3 ML UDC GT PRN (20:33)
--- NOTE | 2018-10-10 20:56 | NUR ---
RT Pt rec'd a Dorothyley 6 trach on the vent with noted settings. Pt is awake but does not respond commands. Vent alarms are set and audible with BVM by bedside. CASE MAKING MACHINE OPERATOR cuff pressure noted. Vent is plugged into red outlet. HHN tx given with no adverse reactions. No respiratory distress noted at this time, will continue to monitor. Addendum: 10/10/18 at 2056 by RAYRAY KRUEGER RT Amended: Links added.
[2018-10-10] MEDS: LATANOPROST EYE DROP 0.005% 2.5 ML BOTTLE EACHEYE SCH (21:42)
[2018-10-10] MEDS: HYDROCODONE/APAP 5/325MG 1 EACH TABLET GT PRN (23:36)
[2018-10-11 00:39] VITALS: BP 126/70
[2018-10-11] MEDS: IV D5W 1,000 ML IV PRN ×2 (01:02→11:38)
[2018-10-11] MEDS: ACETYLCYSTEINE 10% SOLN 400 MG/4 ML VIAL NEB SCH ×4 (01:33→19:30)
[2018-10-11] MEDS: IPRATROPIUM NEB FS 0.5 MG/2.5 ML AMPUL.NEB IH SCH ×4 (01:33→19:30)
[2018-10-11] MEDS: ALBUTEROL FS 2.5 MG/0.5 ML VIAL.NEB NEB SCH ×4 (01:33→19:30)
[2018-10-11 04:05] VITALS: BP 123/63
[2018-10-11] MEDS: SIMETHICONE SUSP 40 MG/0.6 ML BOTTLE GT SCH ×2 (05:16→12:31)
[2018-10-11] MEDS: FAMOTIDINE (20 MG) 20 MG TABLET GT SCH (05:16)
[2018-10-11] MEDS: METOCLOPRAMIDE HCL 10 MG/10 ML UDC GT SCH ×2 (05:16→12:32)
[2018-10-11] MEDS: BLOOD SUGAR DIAGNOSTIC 1 EACH STRIP IN SCH ×2 (05:49→12:31)
[2018-10-11] MEDS: INSULIN REGULAR, HUMAN 100 UNIT/ML 10 ML VIAL SQ SCH ×2 (05:50→12:32)
[2018-10-11] MEDS: VITAL AF 1.2 1,000 ML BOTTLE GT SCH (05:58)
--- NOTE | 2018-10-11 06:44 | NUR ---
Pt on continuos IV hydration 100ml/hr.Generalized edema noted.No distress noted,kept comfortable.Will continue to monitor and will endorse.
[2018-10-11] MEDS: SUCRALFATE 1 G/10 ML UDC GT SCH ×2 (07:30→12:31)
[2018-10-11 07:32] LABS: BASOPHILS % (AUTO) 0.4 % (0.0-2.0); EOSINOPHILS % (AUTO) 5.6 % (0.0-6.0); HEMATOCRIT 24 % (39-51); HEMOGLOBIN 7.6 g/dL (13.5-17.5); LYMPHOCYTES % (AUTO) 18.2 % (20.0-44.0); MEAN CORPUSCULAR HGB CONC 32 g/dl (31.0-36.0); MEAN CORPUSCULAR VOLUME 88 fL (80-96); MONOCYTES # (AUTO) 0.4 /CMM (0.1-1.30); MONOCYTES % (AUTO) 7.4 % (2.0-12.0); NEUTROPHILS # (AUTO) 3.8 /CMM (1.8-8.9); NEUTROPHILS % (AUTO) 68.4 % (43.0-81.0); PLATELET COUNT (AUTO) 95 /CMM (150-450); WHITE BLOOD COUNT (AUTO) 5.6 K/uL (4.3-11.0)
[2018-10-11 08:02] LABS: CARBON DIOXIDE 27 mmol/L (21-32); CHLORIDE 109 mmol/L (98-107); CREATININE 2.7 mg/dL (0.6-1.3); GLUCOSE 290 mg/dL (74-106); MAGNESIUM 2.1 mg/dL (1.8-2.4); PHOSPHORUS 1.9 mg/dL (2.5-4.9); POTASSIUM 3.5 mmol/L (3.5-5.1); SODIUM SERUM 147 mmol/L (136-145)
[2018-10-11 08:03] LABS: UREA NITROGEN, BLOOD 111 mg/dL (7-18)
[2018-10-11 08:10] VITALS: BP 135/65
[2018-10-11] MEDS: ACIDOPHILUS/BULGARICUS 1 EACH TAB.CHEW GT SCH (09:14)
[2018-10-11] MEDS: MULTIVITAMINS,THERAGRAN 1 UDTAB TABLET GT SCH (09:14)
[2018-10-11] MEDS: LACOSAMIDE 50 MG TABLET GT SCH (09:14)
[2018-10-11] MEDS: CHLORHEXIDINE GLUCONATE 15 ML UDC MM SCH (09:14)
[2018-10-11] MEDS: TAMSULOSIN 0.4 MG CAP.SR.24H PO SCH (09:14)
[2018-10-11] MEDS: DORZOLAMIDE OPTH 2% 10 ML BOTTLE EACHEYE SCH ×2 (09:14→12:32)
[2018-10-11] MEDS: ASCORBIC ACID 500 MG TABLET GT SCH (09:14)
[2018-10-11] MEDS: FINASTERIDE (5 MG) 5 MG TABLET GT SCH (09:14)
[2018-10-11] MEDS: LINAGLIPTIN 5 MG TABLET GT SCH (09:14)
[2018-10-11] MEDS: HYDROGEN PEROXIDE 480 ML BOTTLE TP SCH (09:15)
[2018-10-11] MEDS: BACI/NEOM/POLY B OINT PKT 1 UDPKT PACKET TP SCH (09:15)
[2018-10-11] MEDS: Z GUARD REMEDY 4 OZ OINT TP SCH (09:15)
[2018-10-11] MEDS: MINERAL OIL/PETROL OINT 396 GM JAR TP SCH (09:15)
[2018-10-11] MEDS: VITAMINS A AND D 56.7 GM TUBE TP SCH (09:15)
[2018-10-11] MEDS: NEOMY SULF/BACITRAC ZN/POLY 15 GM TUBE TP SCH ×3 (09:15)
--- NOTE | 2018-10-11 09:35 | NUR ---
Relayed lab result to Dr Lugo. BUN 111 Cr 2.7 Hgb 7.6 Hct 24. Subacute transitional care manager spoke with Dr Lugo. He told her he will transfer the pt directly to [facility]/Tele. He said he will speak with Dr Matute.
--- NOTE | 2018-10-11 11:00 | NUR ---
Followed up transfer with Dr Lugo. He said he already spoke with Dr Matute and Dr Jeronimo. He said to transfer pt either to [facility] or Telemetry.
--- NOTE | 2018-10-11 11:15 | NUR ---
Pageharjit Matute. Relayed abnormal lab results to him and informed him of pt's anasarca. He said he will have nephrology see pt. He also said to transfer pt anytime and he will see him. Called pt's son Dr Johns and informed him of today's lab results and order to transfer pt. Pt's son appreciated call.
--- NOTE | 2018-10-11 12:28 | NUR ---
Spoke with Telemetry charge nurse Hue. She said nurse Russell will call when she is ready to admit pt. Pt will go to Room 120 and the room is still occupied at this time.
--- NOTE | 2018-10-11 15:15 | NUR ---
T 97.7 F BP 131/78 P 71 R 17 O2 sat 98-100%. No respiratory distress noted. Pt does not have any pressure ulcers. He has multiple closed blisters on the left thigh and left buttock. Pt's son at bedside and aware of plan to transfer pt.
--- NOTE | 2018-10-11 15:20 | NUR ---
Pt was transferred to Telemetry Room 120. Report given to BRIGHT Espino. Pt's son was at bedside and went with pt. Dr Johns aware of bedhold for 7 days.
--- NOTE | 2018-10-11 15:35 | NUR ---
Informed Dr Ramírez of transfer to Telemetry.
[2018-10-12] MEDS: IPRATROPIUM NEB FS 0.5 MG/2.5 ML AMPUL.NEB IH SCH ×4 (01:30→19:30)
[2018-10-12] MEDS: ALBUTEROL FS 2.5 MG/0.5 ML VIAL.NEB NEB SCH ×4 (01:30→19:30)
[2018-10-12] MEDS: ACETYLCYSTEINE 10% SOLN 400 MG/4 ML VIAL NEB SCH ×4 (01:30→19:30)
--- NOTE | 2018-10-12 11:25 | NUR ---
CHANI informed olga lidianet's son Dr. Johns, resident was transfered to the hospital. CHANI also informed son about 10/19 IDT mtg.
[2018-10-13] MEDS: IPRATROPIUM NEB FS 0.5 MG/2.5 ML AMPUL.NEB IH SCH ×4 (01:30→19:30)
[2018-10-13] MEDS: ACETYLCYSTEINE 10% SOLN 400 MG/4 ML VIAL NEB SCH ×4 (01:30→19:30)
[2018-10-13] MEDS: ALBUTEROL FS 2.5 MG/0.5 ML VIAL.NEB NEB SCH ×4 (01:30→19:30)
[2018-10-14] MEDS: IPRATROPIUM NEB FS 0.5 MG/2.5 ML AMPUL.NEB IH SCH ×4 (01:30→19:30)
[2018-10-14] MEDS: ACETYLCYSTEINE 10% SOLN 400 MG/4 ML VIAL NEB SCH ×4 (01:30→19:30)
[2018-10-14] MEDS: ALBUTEROL FS 2.5 MG/0.5 ML VIAL.NEB NEB SCH ×4 (01:30→19:30)
[2018-10-15] MEDS: ALBUTEROL FS 2.5 MG/0.5 ML VIAL.NEB NEB SCH ×4 (01:30→19:30)
[2018-10-15] MEDS: ACETYLCYSTEINE 10% SOLN 400 MG/4 ML VIAL NEB SCH ×4 (01:30→19:30)
[2018-10-15] MEDS: IPRATROPIUM NEB FS 0.5 MG/2.5 ML AMPUL.NEB IH SCH ×4 (01:30→19:30)
[2018-10-16] MEDS: IPRATROPIUM NEB FS 0.5 MG/2.5 ML AMPUL.NEB IH SCH ×4 (01:30→19:30)
--- NOTE | 2018-10-16 17:45 | NUR ---
RT TRANSPORTED PT FROM [facility] TO [facility]. VENT PLUGGED IN RED OUTLET. PT ON CONTINUOUS PULSE OX. PT ALARMS CHECKED AND AUDIBLE. AMBU BAG AND SPARE TRACH NOTED HOB. NO SOB OR RESP DISTRESS NOTED AT THIS TIME.
--- NOTE | 2018-10-16 18:30 | NUR ---
Readmitted resident from [facility] accompanied by RT and RN. Awake, no signs nad symptoms of resp. distress. Trach secured and midline connected to mechanical ventilator. GT intact and patent. F/C intact and draining yellow colored urine. With Jeremiah cath on left chest, dressing dry and intact. Midline intact on right upper arm. All meds confirmed with Dr. Lugo. Made resident comfortable. Body check done and pictures taken. Will continue to monitor. Endorsed.
[2018-10-16 20:04] VITALS: BP 123/57
[2018-10-16] MEDS: METOCLOPRAMIDE HCL 10 MG/10 ML UDC GT SCH (21:00)
[2018-10-16] MEDS ORDERED: CARVEDILOL 6.25 MG TABLET GT SCH (21:00)
--- NOTE | 2018-10-16 21:00 | NUR ---
RN NOTES Received in bed asleep with no respiratory distress. Received new orders from Dr. Lugo noted and carried out. Son at bedside and aware of new orders.
[2018-10-16] MEDS: LATANOPROST EYE DROP 0.005% 2.5 ML BOTTLE EACHEYE SCH (21:10)
[2018-10-16] MEDS: CHLORHEXIDINE GLUCONATE 15 ML UDC MM SCH (21:22)
[2018-10-16] MEDS: LACOSAMIDE 50 MG TABLET GT SCH (21:22)
[2018-10-16] MEDS: NEOMY SULF/BACITRAC ZN/POLY 15 GM TUBE TP SCH ×3 (21:23→21:24)
[2018-10-16] MEDS: HYDROGEN PEROXIDE 480 ML BOTTLE TP SCH (21:23)
[2018-10-16] MEDS: MINERAL OIL/PETROL OINT 396 GM JAR TP SCH (21:23)
[2018-10-16] MEDS: Z GUARD REMEDY 4 OZ OINT TP SCH (21:24)
[2018-10-16] MEDS: VITAMINS A AND D 56.7 GM TUBE TP SCH (21:24)
[2018-10-16] MEDS: ATORVASTATIN 10 MG TABLET GT SCH (21:25)
[2018-10-16] MEDS: PROSTAT (PYXIS) 30 ML UDC GT SCH (21:25)
[2018-10-17] VITALS (7 sets, daily range): BP systolic 95–130; BP diastolic 52–73
[2018-10-17] MEDS: BLOOD SUGAR DIAGNOSTIC 1 EACH STRIP IN SCH ×5 (00:41→23:53)
[2018-10-17] MEDS: INSULIN REGULAR, HUMAN 100 UNIT/ML 10 ML VIAL SQ SCH ×5 (00:43→23:55)
[2018-10-17] MEDS: SIMETHICONE SUSP 40 MG/0.6 ML BOTTLE GT SCH ×5 (00:43→23:53)
[2018-10-17] MEDS: IPRATROPIUM NEB FS 0.5 MG/2.5 ML AMPUL.NEB IH SCH ×4 (01:18→19:59)
[2018-10-17] MEDS: FAMOTIDINE (20 MG) 20 MG TABLET GT SCH (05:33)
[2018-10-17] MEDS: METOCLOPRAMIDE HCL 10 MG/10 ML UDC GT SCH ×3 (05:34→20:17)
[2018-10-17] MEDS: PROSTAT (PYXIS) 30 ML UDC GT SCH ×3 (05:34→20:16)
[2018-10-17] MEDS: LACOSAMIDE 50 MG TABLET GT SCH ×2 (09:00→20:17)
[2018-10-17] MEDS: CHLORHEXIDINE GLUCONATE 15 ML UDC MM SCH ×2 (09:00→20:18)
[2018-10-17] MEDS: ASCORBIC ACID 500 MG TABLET GT SCH (09:00)
[2018-10-17] MEDS: HYDROGEN PEROXIDE 480 ML BOTTLE TP SCH ×2 (09:00→20:18)
[2018-10-17] MEDS: NEOMY SULF/BACITRAC ZN/POLY 15 GM TUBE TP SCH ×2 (09:00→20:18)
[2018-10-17] MEDS: TAMSULOSIN 0.4 MG CAP.SR.24H PO SCH (09:00)
[2018-10-17] MEDS: DORZOLAMIDE OPTH 2% 10 ML BOTTLE EACHEYE SCH ×3 (09:59→17:00)
[2018-10-17] MEDS: FINASTERIDE (5 MG) 5 MG TABLET GT SCH (09:59)
[2018-10-17] MEDS: MULTIVITAMINS,THERAGRAN 1 UDTAB TABLET GT SCH (09:59)
[2018-10-17] MEDS: ACIDOPHILUS/BULGARICUS 1 EACH TAB.CHEW GT SCH (09:59)
[2018-10-17] MEDS: LINAGLIPTIN 5 MG TABLET GT SCH (09:59)
--- NOTE | 2018-10-17 10:15 | NUR ---
WOUND CARE CONSULT WOUND CARE RECEIVED CONSULT FOR READMISSION ASSESSMENT FOR PATIENT. WOUND CARE WILL DEFER READMISSION ASSESSMENT AND ALL TREATMENT PLANS TO PLASTIC SURGICAL TEAM WHO HAS BEEN NOTIFIED OF PATIENT READMISSION TO [facility]. PLASTIC SURGICAL TEAM WERE FOLLOWING THIS PATIENT WHILE IN ACUTE CARE. WILL SEE PRN.
--- NOTE | 2018-10-17 10:38 | NUR ---
Notified Dr. Ramírez of PT/INR result today. PT 12.5, INR 1.21, currently on Coumadin 10 mg. with small amount of blood tinged secretions during suctioning noted. Dr. Ramírez said to continue with Coumadin 10 mg. and repeat PT/INR in AM. Addendum: 10/17/18 at 1136 by MATTHIAS VIVEROS RN wrong patient.
[2018-10-17] MEDS: NEPRO 1,000 ML BOTTLE GT PRN (11:36)
--- NOTE | 2018-10-17 11:37 | NUR ---
Clarified with Dr. Ramírez two of the medications that were discontinued by Dr. Mckeon before patient was transferred to acute hospital, Coreg 6.25 mg and Lipitor. According to Dr. Ramírez, to DC Coreg and keep Lipitor. Left a message to resident's son of new order.
--- NOTE | 2018-10-17 13:38 | NUR ---
CHANI contacted [facility] to schedule transportation for dialysis. Transport will be picking up patient every Monday, and Saturdays at 5:45 AM. The dialysis is at 6:15 AM.
--- NOTE | 2018-10-17 13:45 | NUR ---
CHANI re-confirmed with patient's son Dr. Johns about IDT mtg this Thursday 10/19 at 12:30 PM. Son confirmed attendance
--- NOTE | 2018-10-17 19:59 | NUR ---
RT NOTE: RECEIVED TRACH PT ON [facility] VENT ON NOTED SETTINGS PER MD ORDERS. TRACH IS PATENT AND SECURED. SOCKET WELDER HELPER DONE. Q6 BREATHING TX GIVEN WITH NO ADVERSE REACTION NOTED. SX DONE PRN. VENT PLUGGED INTO RED OUTLET. ALARMS ON AND AUDIBLE. AMBU BAG AND PULSE OX @ BEDSIDE. NO RESP DISTRESS AT THIS TIME. WILL CONT TO MONITOR PT. Addendum: 10/18/18 at 0231 by RAMYA HARKINS RT Amended: Links added.
[2018-10-17] MEDS: MINERAL OIL/PETROL OINT 396 GM JAR TP SCH (20:18)
[2018-10-17] MEDS: CLOTRIMAZOLE 1% 15 GM TUBE TP SCH (20:18)
[2018-10-17] MEDS: BACI/NEOM/POLY B OINT PKT 1 UDPKT PACKET TP SCH ×3 (20:18→20:19)
[2018-10-17] MEDS: VITS A AND D/WHITE PET/LANOLIN 5 GM PACKET TP SCH (20:19)
[2018-10-17] MEDS: ZINC OXIDE 30 GM TUBE TP SCH (20:19)
[2018-10-17] MEDS: Z GUARD REMEDY 4 OZ OINT TP SCH (20:19)
[2018-10-17] MEDS: LATANOPROST EYE DROP 0.005% 2.5 ML BOTTLE EACHEYE SCH (21:28)
[2018-10-17] MEDS: ATORVASTATIN 10 MG TABLET GT SCH (21:28)
[2018-10-18 00:10] VITALS: BP 137/72
[2018-10-18] MEDS: IPRATROPIUM NEB FS 0.5 MG/2.5 ML AMPUL.NEB IH SCH ×4 (01:23→19:19)
--- NOTE | 2018-10-18 04:05 | NUR ---
Pt had emesis x 1 @ 100ml milk formula,no residual,abdominal gas noted and vented to release gas.HOB elevated.Left upper chest HD catheter,changed d/t to bio patch soaked with blood.No active bleeding noted,will continue to monitor.
[2018-10-18] MEDS: PROSTAT (PYXIS) 30 ML UDC GT SCH ×3 (04:42→20:57)
[2018-10-18] MEDS: METOCLOPRAMIDE HCL 10 MG/10 ML UDC GT SCH ×3 (04:42→20:57)
[2018-10-18 04:56] VITALS: BP 125/73
[2018-10-18] MEDS: FAMOTIDINE (20 MG) 20 MG TABLET GT SCH (05:00)
[2018-10-18] MEDS: SIMETHICONE SUSP 40 MG/0.6 ML BOTTLE GT SCH ×4 (05:00→23:20)
[2018-10-18] MEDS: BLOOD SUGAR DIAGNOSTIC 1 EACH STRIP IN SCH ×4 (05:00→23:20)
[2018-10-18] MEDS: INSULIN REGULAR, HUMAN 100 UNIT/ML 10 ML VIAL SQ SCH ×4 (05:01→23:22)
--- NOTE | 2018-10-18 06:27 | NUR ---
Pt left for dialysis,stable vital signs.Transported by [facility] Ambulance crew.
[2018-10-18] MEDS: CHLORHEXIDINE GLUCONATE 15 ML UDC MM SCH ×2 (09:00→20:57)
[2018-10-18] MEDS: TAMSULOSIN 0.4 MG CAP.SR.24H PO SCH (09:00)
--- NOTE | 2018-10-18 10:50 | NUR ---
Patient came back from dialysis via ambulance,patient on vent, tolerating well. left chest shunt dressing intact, no bleeding noted at this time. V/S 125/45, AZ- 71, RR - 12, Temp., 97.8, 02 sat 100%. Checked by RT, VENT checked done by RT. Patient not in resp. distress at this time. Closely monitored.
[2018-10-18 11:00] VITALS: BP 125/45
[2018-10-18] MEDS: ACIDOPHILUS/BULGARICUS 1 EACH TAB.CHEW GT SCH (11:00)
[2018-10-18] MEDS: VITS A AND D/WHITE PET/LANOLIN 5 GM PACKET TP SCH ×2 (11:00→20:59)
[2018-10-18] MEDS: Z GUARD REMEDY 4 OZ OINT TP SCH ×2 (11:00→20:59)
[2018-10-18] MEDS: LINAGLIPTIN 5 MG TABLET GT SCH (11:00)
[2018-10-18] MEDS: ASCORBIC ACID 500 MG TABLET GT SCH (11:00)
[2018-10-18] MEDS: CLOTRIMAZOLE 1% 15 GM TUBE TP SCH ×2 (11:00→20:58)
[2018-10-18] MEDS: ZINC OXIDE 30 GM TUBE TP SCH ×2 (11:00→20:59)
[2018-10-18] MEDS: FINASTERIDE (5 MG) 5 MG TABLET GT SCH (11:00)
[2018-10-18] MEDS: NEOMY SULF/BACITRAC ZN/POLY 15 GM TUBE TP SCH ×2 (11:00→20:58)
[2018-10-18] MEDS: MINERAL OIL/PETROL OINT 396 GM JAR TP SCH ×2 (11:00→20:58)
[2018-10-18] MEDS: MULTIVITAMINS,THERAGRAN 1 UDTAB TABLET GT SCH (11:00)
[2018-10-18] MEDS: BACI/NEOM/POLY B OINT PKT 1 UDPKT PACKET TP SCH ×6 (11:00→20:59)
[2018-10-18] MEDS: DORZOLAMIDE OPTH 2% 10 ML BOTTLE EACHEYE SCH ×3 (11:00→16:40)
[2018-10-18] MEDS: HYDROGEN PEROXIDE 480 ML BOTTLE TP SCH ×2 (11:00→20:58)
[2018-10-18] MEDS: LACOSAMIDE 50 MG TABLET GT SCH ×2 (11:00→20:57)
[2018-10-18 11:56] VITALS: BP 125/45
[2018-10-18 12:00] VITALS: BP 125/45
[2018-10-18] MEDS: NEPRO 1,000 ML BOTTLE GT PRN (16:02)
--- NOTE | 2018-10-18 16:21 | NUR ---
RT NOTE: PATIENT RECEIVED TRACH ON MECHANICAL VENT. ALARMS SET AND AUDIBLE. SUCTIONED AND LAVAGED SMALL AMOUNT OF THIN BLOODY SECRETIONS. VENT PLUGGED INTO RED OUTLET. AMBU BAG AND TRACH AT [facility].
--- NOTE | 2018-10-18 17:35 | NUR ---
Received order from Dr Newman to change multivitamins to Nephrovite 1 tab via GT daily per route deliverer's recommendation.
[2018-10-18] MEDS: VIT B CMPLX 3/FA/VIT C/BIOTIN 1 TAB TABLET GT SCH (18:24)
--- NOTE | 2018-10-18 19:10 | NUR ---
Pt left chest HD site bleeding noted,gauze soaked with blood.dressing changed and pressure applied.Will continue to monitor.
--- NOTE | 2018-10-18 19:30 | NUR ---
Noted thin fresh blood in trach and when suctioned.Also noted multiple small abrasion @ face area with bleeding d/t shaving,A&D ointment applied.
[2018-10-18 19:39] VITALS: BP 159/94
[2018-10-18] MEDS: LATANOPROST EYE DROP 0.005% 2.5 ML BOTTLE EACHEYE SCH (21:00)
[2018-10-18] MEDS: ATORVASTATIN 10 MG TABLET GT SCH (21:00)
[2018-10-19] VITALS (7 sets, daily range): BP systolic 131–143; BP diastolic 65–83
--- NOTE | 2018-10-19 01:10 | NUR ---
Pt still noted with bleeding @ Left chest HD site.Paged powertrain control systems engineer for epic,BRANDO Jane order to put pressure and surgicel dressing for bleeding.Will carry out order.
[2018-10-19] MEDS ORDERED: CELLULOSE,OXIDIZED 1 EACH EACH MC ONE (01:30)
[2018-10-19] MEDS: IPRATROPIUM NEB FS 0.5 MG/2.5 ML AMPUL.NEB IH SCH ×4 (01:54→19:50)
--- NOTE | 2018-10-19 02:00 | NUR ---
Surgicel dressing not available at this time,pressure dressing applied.Pt vitals stable,no distress noted.will continue to monitor closely.
[2018-10-19] MEDS: BLOOD SUGAR DIAGNOSTIC 1 EACH STRIP IN SCH ×4 (05:47→23:55)
[2018-10-19] MEDS: METOCLOPRAMIDE HCL 10 MG/10 ML UDC GT SCH ×3 (05:47→21:28)
[2018-10-19] MEDS: FAMOTIDINE (20 MG) 20 MG TABLET GT SCH (05:47)
[2018-10-19] MEDS: PROSTAT (PYXIS) 30 ML UDC GT SCH ×3 (05:47→21:28)
[2018-10-19] MEDS: SIMETHICONE SUSP 40 MG/0.6 ML BOTTLE GT SCH ×4 (05:47→23:55)
[2018-10-19] MEDS: INSULIN REGULAR, HUMAN 100 UNIT/ML 10 ML VIAL SQ SCH ×4 (05:49→23:57)
--- NOTE | 2018-10-19 06:50 | NUR ---
Left HD catheter site dressing intact,no more bleeding noted outside dressing ,pressure still applied.Will endorse and follow surgicel dressing.Vitals stable no distress noted.
--- NOTE | 2018-10-19 06:56 | NUR ---
Tracheal bleeding improved,pinkish color noted when suctioned.Will continue to monitor and endorsed.
[2018-10-19] MEDS ORDERED: NYSTATIN TOP POWDER 15 GM BOTTLE TP SCH (09:00)
[2018-10-19] MEDS: DORZOLAMIDE OPTH 2% 10 ML BOTTLE EACHEYE SCH ×3 (09:42→17:11)
[2018-10-19] MEDS: ACIDOPHILUS/BULGARICUS 1 EACH TAB.CHEW GT SCH (09:42)
[2018-10-19] MEDS: HYDROGEN PEROXIDE 480 ML BOTTLE TP SCH ×2 (09:43→21:28)
[2018-10-19] MEDS: VIT B CMPLX 3/FA/VIT C/BIOTIN 1 TAB TABLET GT SCH (09:43)
[2018-10-19] MEDS: LACOSAMIDE 50 MG TABLET GT SCH ×2 (09:43→21:28)
[2018-10-19] MEDS: VITS A AND D/WHITE PET/LANOLIN 5 GM PACKET TP SCH ×2 (09:43→21:29)
[2018-10-19] MEDS: LINAGLIPTIN 5 MG TABLET GT SCH (09:43)
[2018-10-19] MEDS: FINASTERIDE (5 MG) 5 MG TABLET GT SCH (09:43)
[2018-10-19] MEDS: Z GUARD REMEDY 4 OZ OINT TP SCH ×8 (09:43→21:29)
[2018-10-19] MEDS: CLOTRIMAZOLE 1% 15 GM TUBE TP SCH ×2 (09:43→21:28)
[2018-10-19] MEDS: ASCORBIC ACID 500 MG TABLET GT SCH (09:43)
[2018-10-19] MEDS: MINERAL OIL/PETROL OINT 396 GM JAR TP SCH ×2 (09:43→21:28)
[2018-10-19] MEDS: TAMSULOSIN 0.4 MG CAP.SR.24H PO SCH (09:43)
[2018-10-19] MEDS: CHLORHEXIDINE GLUCONATE 15 ML UDC MM SCH ×2 (09:43→21:28)
[2018-10-19] MEDS: BACI/NEOM/POLY B OINT PKT 1 UDPKT PACKET TP SCH ×6 (09:43→21:29)
[2018-10-19] MEDS: ZINC OXIDE 30 GM TUBE TP SCH ×2 (09:43→21:29)
--- NOTE | 2018-10-19 10:01 | NUR ---
RT NOTE RECEIVED PT MECHANICALLY VENTILATED VIA CUFFED TRACHEOSTOMY TUBE. CUFF INFLATED VIA RELOCATION MANAGER. TRACHEOSTOMY TUBE MIDLINE AND SECURE. VENTILATOR SETTINGS PRESCRIBED. ALARMS SET PER PROTOCOL AND AUDIBLE. VENT PLUGGED IN TO RED OUTLET. AMBU BAG AT BED SIDE. NO DISTRESS NOTED AT MOMENT. Addendum: 10/19/18 at 1001 by CARINA SUAREZ RT Amended: Links added.
--- NOTE | 2018-10-19 11:00 | NUR ---
Seen and examined by Dr. Garduno. Assesed bleeding from HD access site in the L upper chest. Pressure dressing in place but gauze is visibly bloody. New order given for CBC and BMP in AM and to apply surgicel dressing in the site. Nursing color making supervisor assisted in applyin the dressing. Will monitor for further bleeding. Resident's son informed of HD site bleeding.
--- NOTE | 2018-10-19 14:30 | NUR ---
INTERDISCIPLINARY TEAM CONFERENCE (IDT) was held today. Resident's son, Nat attended today's IDT meeting. Dr. Ramírez and the interdisciplinary team reviewed the current plan of care in detail. Orders as well as treatment and medications were reviewed. Resident is readmitted and is now on hemod[facility] week [facility]. Patient's HD access site is bleeding with pressure dressing applied. Reported patient x1 episode of vomiting last night. New order to DC water flushing of 300 ml. via GT Q 6hours, PT/PTT and Zofran 4mg PRN for N/V. Order carried out.
[2018-10-19] MEDS: NEPRO 1,000 ML BOTTLE GT PRN (14:46)
--- NOTE | 2018-10-19 15:30 | NUR ---
Notified Dr. Lugo that HD access site is bleeding with new order to notify Dr. Smith to re-evaluate due to persistent bleeding. Left a message for Dr. Smith regarding consult, staff said the MD is in surgery but wwill relay the message.
[2018-10-19] MEDS ORDERED: ONDANSETRON 4 MG TAB.RAPDIS PO PRN (17:30)
--- NOTE | 2018-10-19 18:00 | NUR ---
Dr. Ramírez notified of PT/PTT result, and obtained an order to apply surgicel for HD access bleeding pending Dr. Smith's visit. [facility] pharmacy informed.
[2018-10-19] MEDS ORDERED: CELLULOSE,OXIDIZED 1 PKT EACH MC ONE (19:00)
--- NOTE | 2018-10-19 20:00 | NUR ---
Reported by day shift RN,right upper midline dislodged and remove,no bleeding noted.Left upper chest HD catheter site with pressure dressing applied d/t bleeding.Will closely monitor.
[2018-10-19] MEDS: NYSTATIN TOP POWDER 15 GM BOTTLE TP SCH (21:28)
[2018-10-19] MEDS: ATORVASTATIN 10 MG TABLET GT SCH (21:29)
[2018-10-19] MEDS: LATANOPROST EYE DROP 0.005% 2.5 ML BOTTLE EACHEYE SCH (21:29)
[2018-10-20 00:13] VITALS: BP 118/57
[2018-10-20] MEDS: IPRATROPIUM NEB FS 0.5 MG/2.5 ML AMPUL.NEB IH SCH ×5 (01:09→19:33)
[2018-10-20 04:05] VITALS: BP 124/62
--- NOTE | 2018-10-20 05:00 | NUR ---
Patient Left chest HD catheter dressing changed with moderate amount of bleeding, Surgicel and pressure dressing applied no active bleeding at this time.Will continue to monitor.
[2018-10-20] MEDS: SIMETHICONE SUSP 40 MG/0.6 ML BOTTLE GT SCH ×3 (05:32→17:34)
[2018-10-20] MEDS: METOCLOPRAMIDE HCL 10 MG/10 ML UDC GT SCH ×2 (05:32→12:41)
[2018-10-20] MEDS: PROSTAT (PYXIS) 30 ML UDC GT SCH ×2 (05:32→12:41)
[2018-10-20] MEDS: FAMOTIDINE (20 MG) 20 MG TABLET GT SCH (05:32)
[2018-10-20] MEDS: BLOOD SUGAR DIAGNOSTIC 1 EACH STRIP IN SCH ×3 (05:32→17:34)
[2018-10-20] MEDS: INSULIN REGULAR, HUMAN 100 UNIT/ML 10 ML VIAL SQ SCH ×3 (05:33→17:34)
--- NOTE | 2018-10-20 05:55 | NUR ---
Pt merchandise pickup/receiving associate by [facility] ambulance crew for dialysis appointment,vital signs stable.BP 128/59,HR 80,Temp 97.5,BS 149mg/dl.
[2018-10-20] MEDS: VIT B CMPLX 3/FA/VIT C/BIOTIN 1 TAB TABLET GT SCH (09:00)
[2018-10-20] MEDS: FINASTERIDE (5 MG) 5 MG TABLET GT SCH (09:00)
[2018-10-20] MEDS: LACOSAMIDE 50 MG TABLET GT SCH (09:00)
[2018-10-20] MEDS: VITS A AND D/WHITE PET/LANOLIN 5 GM PACKET TP SCH (09:00)
[2018-10-20] MEDS: LINAGLIPTIN 5 MG TABLET GT SCH (09:00)
[2018-10-20] MEDS: CLOTRIMAZOLE 1% 15 GM TUBE TP SCH (09:00)
[2018-10-20] MEDS: CHLORHEXIDINE GLUCONATE 15 ML UDC MM SCH (09:00)
[2018-10-20] MEDS: HYDROGEN PEROXIDE 480 ML BOTTLE TP SCH (09:00)
[2018-10-20] MEDS: ZINC OXIDE 30 GM TUBE TP SCH (09:00)
[2018-10-20] MEDS: MINERAL OIL/PETROL OINT 396 GM JAR TP SCH (09:00)
[2018-10-20] MEDS: TAMSULOSIN 0.4 MG CAP.SR.24H PO SCH (09:00)
[2018-10-20] MEDS: ACIDOPHILUS/BULGARICUS 1 EACH TAB.CHEW GT SCH (09:00)
[2018-10-20] MEDS: Z GUARD REMEDY 4 OZ OINT TP SCH ×4 (09:00)
[2018-10-20] MEDS: BACI/NEOM/POLY B OINT PKT 1 UDPKT PACKET TP SCH ×3 (09:00)
[2018-10-20] MEDS: DORZOLAMIDE OPTH 2% 10 ML BOTTLE EACHEYE SCH ×3 (09:00→17:00)
[2018-10-20] MEDS: NYSTATIN TOP POWDER 15 GM BOTTLE TP SCH (09:00)
[2018-10-20] MEDS: ASCORBIC ACID 500 MG TABLET GT SCH (09:00)
[2018-10-20 10:20] VITALS: BP 115/76
--- NOTE | 2018-10-20 10:20 | NUR ---
Resident returned from S/P hemodialyis treatment via [place]. Accompanied by 2 EMT's and RT. LT subclavian HD catheter intact, noted with slight bleeding, covered with dressing. Charge nurse made aware.
[2018-10-20 11:28] LABS: BASOPHILS % (AUTO) 0.2 % (0.0-2.0); EOSINOPHILS % (AUTO) 5.2 % (0.0-6.0); HEMATOCRIT 23 % (39-51); HEMOGLOBIN 7.3 g/dL (13.5-17.5); LYMPHOCYTES # (AUTO) 0.7 /CMM (0.8-4.8); MEAN CORPUSCULAR HGB CONC 32 g/dl (31.0-36.0); MEAN CORPUSCULAR VOLUME 88 fL (80-96); MONOCYTES # (AUTO) 0.8 /CMM (0.1-1.30); MONOCYTES % (AUTO) 11.9 % (2.0-12.0); NEUTROPHILS # (AUTO) 4.7 /CMM (1.8-8.9); NEUTROPHILS % (AUTO) 71.7 % (43.0-81.0); PLATELET COUNT (AUTO) 62 /CMM (150-450); RED BLOOD CELL COUNT(AUTO) 2.57 MIL/uL (4.5-6.0); WHITE BLOOD COUNT (AUTO) 6.6 K/uL (4.3-11.0)
[2018-10-20 11:36] LABS: CALCIUM, SERUM 8.4 mg/dL (8.5-10.1); CARBON DIOXIDE 32 mmol/L (21-32); CHLORIDE 100 mmol/L (98-107); CREATININE 0.9 mg/dL (0.6-1.3); GLUCOSE 109 mg/dL (74-106); POTASSIUM 3.2 mmol/L (3.5-5.1); SODIUM SERUM 136 mmol/L (136-145); UREA NITROGEN, BLOOD 26 mg/dL (7-18)
[2018-10-20 12:00] VITALS: BP 125/62
[2018-10-20 12:10] LABS: BAND % (MANUAL) 1 % (0.0-5.0); EOSINOPHILS % (MANUAL) 6 % (0-4); LYMPHOCYTES % (MANUAL) 8 % (16-48); MONOCYTES % (MANUAL) 8 % (0-11.0); MYELOCYTES % 2 % (0-0); NEUTROPHILS % (MANUAL) 75 (42-76)
--- NOTE | 2018-10-20 13:25 | NUR ---
Received a call back from Dr. Esquivel, automation technologist fro Dr. Smith. and mentioned that HD access site of patient persistently bleeding despite application of surgicel with pressure dressing. He reviewed patient current labs, platelet 62 and said to give 10 packs of platelet, and use surgicel above and underneath HD access site, apply folded 4x4, then apply pressure dressing in the site. Notified subacute director of emergency nursing and attending physician Dr. Garduno.
--- NOTE | 2018-10-20 14:20 | NUR ---
According to environmental sustainability manager, per administration it is appropriate to discharge patient for platelet administration to same day outpatient then readmit to subacute. Dr. Garduno notified and ordered to transfer patient to [facility] for outpatient platelet transfusion. Nursing manufacturing supervisor informed, awaiting for bed. Notified patient's son of transfer.
[2018-10-20] MEDS: NEPRO 1,000 ML BOTTLE GT PRN (16:00)
--- NOTE | 2018-10-20 16:10 | NUR ---
Resident transferred to [facility] for outpatient platelet administration. Report given to BRIGHT Nolasco. Patient wheeled via bed accompanied by 2 RT, UNDER TRIMMER and TERRITORY ACCOUNT EXECUTIVE. L upper chest Perma cath site with pressure dressing in place, no visible bleeding showing from the pressure dressing but gauze placed under the catheter is soaked. Report given to receiving nurse that order obtain from Dr. Esquivel to use Surgicel over and under the cath site and then apply pressure dressing. Informed pharmacy that patient is transferred to [facility] deliver Surgicel to the unit. Resident's son at bedside and well informed of patient's current lab test and reason for transfer.
[2018-10-21] MEDS: IPRATROPIUM NEB FS 0.5 MG/2.5 ML AMPUL.NEB IH SCH (01:31)
--- NOTE | 2018-10-23 11:44 | NUR ---
INTERDISCIPLINARY TEAM CONFERENCE (IDT) was held today. Resident's son, Nat attended today's IDT meeting. Dr. Ramírez and the interdisciplinary team reviewed the current plan of care in detail. Orders as well as treatment and medications were reviewed. Resident is readmitted and is now on hemodialysis 3x a week at [facility]
--- NOTE | 2018-10-23 15:50 | NUR ---
Readmitted resident from [facility] with [facility] RN and RT. Awake, no signs and symptom of resp distress. Trach secured and midline. On mechanical vent at 40 % FIO2, tolerating well. GT intact and patent, no bleeding noted. Jeremiah catheter intact on left chest, dressing dry and intact, no bleeding noted. Midline intact on right upper arm, dressing dry and intact, no bleeding noted. Body check done, pictures taken. All meds confirmed with Dr. Garduno, transcribed and faxed to pharmacy. Son at bedside. Will continue to monitor.
--- NOTE | 2018-10-23 16:01 | NUR ---
pt. is transferred from [facility] to [facility] with same settings below: ac 12, vt 500ml, fio2 40%, peep +5 vent is plugged into red outlet with alarms on and functioning. jenny carreon @ bedside. Addendum: 10/23/18 at 1608 by BECKIE CAMPUZANO RT Amended: Links added.
[2018-10-23] MEDS: NEPRO 1,000 ML BOTTLE GT PRN (17:50)
[2018-10-23 20:17] VITALS: BP 114/61
[2018-10-23] MEDS: PROSTAT (PYXIS) 30 ML UDC GT SCH (20:42)
[2018-10-23] MEDS: METOCLOPRAMIDE HCL 10 MG/10 ML UDC GT SCH (20:44)
[2018-10-23] MEDS: CHLORHEXIDINE GLUCONATE 15 ML UDC MM SCH (20:45)
[2018-10-23] MEDS: LACOSAMIDE 50 MG TABLET GT SCH (20:45)
[2018-10-23] MEDS: MINERAL OIL/PETROL OINT 396 GM JAR TP SCH (20:46)
[2018-10-23] MEDS: HYDROGEN PEROXIDE 480 ML BOTTLE TP SCH (20:46)
[2018-10-23] MEDS: CLOTRIMAZOLE 1% 15 GM TUBE TP SCH (20:46)
[2018-10-23] MEDS: BACI/NEOM/POLY B OINT PKT 1 UDPKT PACKET TP SCH ×3 (20:47)
[2018-10-23] MEDS: NYSTATIN TOP POWDER 15 GM BOTTLE TP SCH (20:47)
[2018-10-23] MEDS: Z GUARD REMEDY 4 OZ OINT TP SCH ×4 (20:48→20:49)
[2018-10-23] MEDS: ZINC OXIDE 30 GM TUBE TP SCH (20:49)
[2018-10-23] MEDS: VITS A AND D/WHITE PET/LANOLIN 5 GM PACKET TP SCH (20:49)
[2018-10-23] MEDS: ATORVASTATIN 10 MG TABLET GT SCH (21:51)
[2018-10-23] MEDS: LATANOPROST EYE DROP 0.005% 2.5 ML BOTTLE EACHEYE SCH (21:51)
[2018-10-24] MEDS: SIMETHICONE SUSP 40 MG/0.6 ML BOTTLE GT SCH ×4 (00:10→23:37)
[2018-10-24] MEDS: BLOOD SUGAR DIAGNOSTIC 1 EACH STRIP IN SCH ×4 (00:10→23:37)
[2018-10-24 00:29] VITALS: BP 125/69
--- NOTE | 2018-10-24 04:30 | NUR ---
RT NOTE PT RECEIVED ON [facility] VENT ON THE FOLLOWING NOTED SETTINGS. PT SX'D. NO RESP DISTRESS OR SOB NOTED AT THIS TIME. BREATHING TX GIVEN, NO ADVERSE REACTIONS NOTED AT THIS TIME. VENT IS PLUGGED INTO RED OUTLET. ALARMS ARE ON AND AUDIBLE. SPARE TRACH AND AMBU BAG ARE AT BEDSIDE. WILL CONT TO MONITOR PT. FAMILY AT BEDSIDE. Addendum: 10/24/18 at 0430 by NEAL HERNANDEZ RT Amended: Links added.
[2018-10-24] MEDS: FAMOTIDINE (20 MG) 20 MG TABLET GT SCH (05:49)
[2018-10-24] MEDS: PROSTAT (PYXIS) 30 ML UDC GT SCH ×2 (05:49→21:09)
[2018-10-24] MEDS: METOCLOPRAMIDE HCL 10 MG/10 ML UDC GT SCH ×2 (05:50→21:09)
[2018-10-24] MEDS: INSULIN REGULAR, HUMAN 100 UNIT/ML 10 ML VIAL SQ SCH ×4 (05:53→23:39)
[2018-10-24 06:28] VITALS: BP 127/61
[2018-10-24 07:49] VITALS: BP 126/64
[2018-10-24] MEDS: IPRATROPIUM NEB FS 0.5 MG/2.5 ML AMPUL.NEB IH SCH ×2 (07:49→19:37)
[2018-10-24] MEDS: VIT B CMPLX 3/FA/VIT C/BIOTIN 1 TAB TABLET GT SCH (08:39)
[2018-10-24] MEDS: LINAGLIPTIN 5 MG TABLET GT SCH (08:39)
[2018-10-24] MEDS: ACIDOPHILUS/BULGARICUS 1 EACH TAB.CHEW GT SCH (08:39)
[2018-10-24] MEDS: DORZOLAMIDE OPTH 2% 10 ML BOTTLE EACHEYE SCH ×2 (08:39→17:09)
[2018-10-24] MEDS: FINASTERIDE (5 MG) 5 MG TABLET GT SCH (08:39)
[2018-10-24] MEDS: ASCORBIC ACID 500 MG TABLET GT SCH (08:39)
[2018-10-24] MEDS: TAMSULOSIN 0.4 MG CAP.SR.24H PO SCH (08:39)
[2018-10-24] MEDS: LACOSAMIDE 50 MG TABLET GT SCH ×2 (08:41→21:09)
[2018-10-24] MEDS: CHLORHEXIDINE GLUCONATE 15 ML UDC MM SCH ×2 (08:42→21:09)
--- NOTE | 2018-10-24 10:51 | NUR ---
CHANI called [facility] transportation ) ans spoke with José Miguel. The transport was schedule to be at [facility] this at 05:45AM. CHANI advised them patient is on a vent and his dialysis is at 6:15 every Tuesdays, and Saturdays.
--- NOTE | 2018-10-24 10:56 | NUR ---
CHANI called the Dialysis dpt and spoke with Johana confirming patient's appointment tomorrow ( and every Monday, and Saturdays) from 6:15 to 9:45AM.
[2018-10-24] MEDS: CLOTRIMAZOLE 1% 15 GM TUBE TP SCH ×2 (14:44→21:10)
[2018-10-24] MEDS: NYSTATIN TOP POWDER 15 GM BOTTLE TP SCH ×2 (14:44→21:10)
[2018-10-24] MEDS: MINERAL OIL/PETROL OINT 396 GM JAR TP SCH ×4 (14:44→21:09)
[2018-10-24] MEDS: HYDROGEN PEROXIDE 480 ML BOTTLE TP SCH ×2 (14:44→21:09)
[2018-10-24] MEDS: Z GUARD REMEDY 4 OZ OINT TP SCH ×12 (14:45→21:10)
[2018-10-24] MEDS: NEOMY SULF/BACITRAC ZN/POLY 15 GM TUBE TP SCH ×2 (14:45→21:10)
[2018-10-24] MEDS: BACI/NEOM/POLY B OINT PKT 1 UDPKT PACKET TP SCH ×6 (14:45→21:10)
[2018-10-24] MEDS: VITS A AND D/WHITE PET/LANOLIN 5 GM PACKET TP SCH ×2 (14:46→21:10)
[2018-10-24] MEDS: VITAMINS A AND D 56.7 GM TUBE TP SCH ×2 (14:46→21:10)
[2018-10-24] MEDS: ZINC OXIDE 30 GM TUBE TP SCH ×2 (14:47→21:10)
[2018-10-24] MEDS: NEPRO 1,000 ML BOTTLE GT PRN (14:47)
[2018-10-24 18:33] VITALS: BP 124/86
[2018-10-24 20:09] VITALS: BP 138/75
[2018-10-24] MEDS: LATANOPROST EYE DROP 0.005% 2.5 ML BOTTLE EACHEYE SCH (21:10)
[2018-10-24] MEDS: ATORVASTATIN 10 MG TABLET GT SCH (21:10)
--- NOTE | 2018-10-24 21:33 | NUR ---
RT Pt rec'd a Dorothyley 6 trach on the vent with noted settings. Pt is awake but does not respond commands. Vent alarms are set and audible with BVM by bedside. LEGAL CONSULTANT cuff pressure noted. Vent is plugged into red outlet. HHN tx given with no adverse reactions. No respiratory distress noted at this time, will continue to monitor. Addendum: 10/24/18 at 2134 by RAYRAY KRUEGER RT Amended: Links added.
[2018-10-25] VITALS (7 sets, daily range): BP systolic 109–125; BP diastolic 58–86
[2018-10-25] MEDS: IPRATROPIUM NEB FS 0.5 MG/2.5 ML AMPUL.NEB IH SCH ×4 (01:55→20:06)
[2018-10-25] MEDS: METOCLOPRAMIDE HCL 10 MG/10 ML UDC GT SCH ×3 (05:28→21:14)
[2018-10-25] MEDS: FAMOTIDINE (20 MG) 20 MG TABLET GT SCH (05:28)
[2018-10-25] MEDS: PROSTAT (PYXIS) 30 ML UDC GT SCH ×3 (05:28→21:14)
[2018-10-25] MEDS: BLOOD SUGAR DIAGNOSTIC 1 EACH STRIP IN SCH ×3 (05:28→17:39)
[2018-10-25] MEDS: SIMETHICONE SUSP 40 MG/0.6 ML BOTTLE GT SCH ×3 (05:28→17:39)
[2018-10-25] MEDS: INSULIN REGULAR, HUMAN 100 UNIT/ML 10 ML VIAL SQ SCH ×3 (05:30→17:39)
--- NOTE | 2018-10-25 05:55 | NUR ---
Patient grain picker by [facility] crew,vital signs stable,no distress.Our portable suction barrowed by the RT to use in the dialysis center.
--- NOTE | 2018-10-25 10:11 | NUR ---
Received a call from Bahman at [facility] with order for extra dialysis treatment tomorrow at 8:30AM x 2 hrs d/t fluid overload. CHANI Tang notified and per Kitty, transport arranged with [facility] with apple picking supervisor time of 7:[address] Pt's son Dr[address] Johns notified of extra tx, agreed with plan of care. Confirmed chairtime with Bahman at [facility].
--- NOTE | 2018-10-25 10:13 | NUR ---
CHANI arranged a transportation with [facility] for tomorrow for dialysis, as per subacute [place] nurse request. Patient will receive an extra dialisys session from 08:30 to 10:30. support engineer was scheduled for 7:45.
[2018-10-25] MEDS: NEOMY SULF/BACITRAC ZN/POLY 15 GM TUBE TP SCH ×2 (10:30→21:22)
[2018-10-25] MEDS: DORZOLAMIDE OPTH 2% 10 ML BOTTLE EACHEYE SCH ×3 (10:30→17:39)
[2018-10-25] MEDS: VIT B CMPLX 3/FA/VIT C/BIOTIN 1 TAB TABLET GT SCH (10:30)
[2018-10-25] MEDS: HYDROGEN PEROXIDE 480 ML BOTTLE TP SCH ×2 (10:30→21:22)
[2018-10-25] MEDS: VITS A AND D/WHITE PET/LANOLIN 5 GM PACKET TP SCH ×2 (10:30→21:23)
[2018-10-25] MEDS: TAMSULOSIN 0.4 MG CAP.SR.24H PO SCH (10:30)
[2018-10-25] MEDS: ASCORBIC ACID 500 MG TABLET GT SCH (10:30)
[2018-10-25] MEDS: NYSTATIN TOP POWDER 15 GM BOTTLE TP SCH ×2 (10:30→21:22)
[2018-10-25] MEDS: LACOSAMIDE 50 MG TABLET GT SCH ×2 (10:30→21:14)
[2018-10-25] MEDS: MINERAL OIL/PETROL OINT 396 GM JAR TP SCH ×4 (10:30→21:22)
[2018-10-25] MEDS: ACIDOPHILUS/BULGARICUS 1 EACH TAB.CHEW GT SCH (10:30)
[2018-10-25] MEDS: FINASTERIDE (5 MG) 5 MG TABLET GT SCH (10:30)
[2018-10-25] MEDS: Z GUARD REMEDY 4 OZ OINT TP SCH ×12 (10:30→21:23)
[2018-10-25] MEDS: CHLORHEXIDINE GLUCONATE 15 ML UDC MM SCH ×2 (10:30→21:22)
[2018-10-25] MEDS: LINAGLIPTIN 5 MG TABLET GT SCH (10:30)
[2018-10-25] MEDS: CLOTRIMAZOLE 1% 15 GM TUBE TP SCH ×2 (10:30→21:22)
[2018-10-25] MEDS: ZINC OXIDE 30 GM TUBE TP SCH ×2 (10:30→21:23)
[2018-10-25] MEDS: BACI/NEOM/POLY B OINT PKT 1 UDPKT PACKET TP SCH ×6 (10:30→21:23)
[2018-10-25] MEDS: VITAMINS A AND D 56.7 GM TUBE TP SCH ×2 (10:30→21:23)
[2018-10-25] MEDS: NEPRO 1,000 ML BOTTLE GT PRN (17:40)
--- NOTE | 2018-10-25 20:00 | NUR ---
Seen by BRANDO VALENTINE.
--- NOTE | 2018-10-25 21:08 | NUR ---
RT Pt rec'd a Dorothyley 6 trach on the vent with noted settings. Pt is awake but does not respond commands. Vent alarms are set and audible with BVM by bedside. COLLEGE DIRECTOR cuff pressure noted. Vent is plugged into red outlet. HHN tx given with no adverse reactions. No respiratory distress, NO SOB, noted at this time, will continue to monitor. Addendum: 10/25/18 at 2108 by RAYRAY KRUEGER RT Amended: Links added.
[2018-10-25] MEDS: LATANOPROST EYE DROP 0.005% 2.5 ML BOTTLE EACHEYE SCH (21:23)
[2018-10-25] MEDS: ATORVASTATIN 10 MG TABLET GT SCH (21:23)
[2018-10-26 00:10] VITALS: BP_SYST 120; BP_SYST 125; BP_DIAS 59; BP_DIAS 62
[2018-10-26] MEDS: SIMETHICONE SUSP 40 MG/0.6 ML BOTTLE GT SCH ×5 (00:57→23:59)
[2018-10-26] MEDS: BLOOD SUGAR DIAGNOSTIC 1 EACH STRIP IN SCH ×5 (00:57→23:59)
[2018-10-26] MEDS: INSULIN REGULAR, HUMAN 100 UNIT/ML 10 ML VIAL SQ SCH ×4 (00:58→17:37)
[2018-10-26] MEDS: IPRATROPIUM NEB FS 0.5 MG/2.5 ML AMPUL.NEB IH SCH ×4 (01:40→19:36)
[2018-10-26 04:30] VITALS: BP 120/59
[2018-10-26] MEDS: PROSTAT (PYXIS) 30 ML UDC GT SCH ×3 (05:33→20:48)
[2018-10-26] MEDS: METOCLOPRAMIDE HCL 10 MG/10 ML UDC GT SCH ×3 (05:33→20:48)
[2018-10-26] MEDS: FAMOTIDINE (20 MG) 20 MG TABLET GT SCH (05:33)
[2018-10-26 07:51] VITALS: BP 113/54
[2018-10-26 08:00] VITALS: BP 113/54
--- NOTE | 2018-10-26 08:10 | NUR ---
Seen and examined by [place] [employer] OPERATOR DANILO CatherineO given. HD access site in the L subclavian no bleeding noted, dressing clean. Picked up by [facility] ambulance staff for dialysis, condition stable V/S 113/54, 84, 98.7 RR12, 100%.
[2018-10-26] MEDS: DORZOLAMIDE OPTH 2% 10 ML BOTTLE EACHEYE SCH ×3 (09:00→17:36)
[2018-10-26] MEDS: LACOSAMIDE 50 MG TABLET GT SCH ×3 (09:00→20:50)
[2018-10-26 12:00] VITALS: BP 126/65
[2018-10-26] MEDS: ACIDOPHILUS/BULGARICUS 1 EACH TAB.CHEW GT SCH (12:00)
[2018-10-26] MEDS: CLOTRIMAZOLE 1% 15 GM TUBE TP SCH ×2 (12:00→20:50)
[2018-10-26] MEDS: NYSTATIN TOP POWDER 15 GM BOTTLE TP SCH ×2 (12:00→20:51)
[2018-10-26] MEDS: VITS A AND D/WHITE PET/LANOLIN 5 GM PACKET TP SCH ×2 (12:00→20:51)
[2018-10-26] MEDS: TAMSULOSIN 0.4 MG CAP.SR.24H PO SCH (12:00)
[2018-10-26] MEDS: CHLORHEXIDINE GLUCONATE 15 ML UDC MM SCH ×2 (12:00→20:50)
[2018-10-26] MEDS: FINASTERIDE (5 MG) 5 MG TABLET GT SCH (12:00)
[2018-10-26] MEDS: BACI/NEOM/POLY B OINT PKT 1 UDPKT PACKET TP SCH ×6 (12:00→20:51)
[2018-10-26] MEDS: NEOMY SULF/BACITRAC ZN/POLY 15 GM TUBE TP SCH ×2 (12:00→20:51)
[2018-10-26] MEDS: VITAMINS A AND D 56.7 GM TUBE TP SCH ×2 (12:00→20:52)
[2018-10-26] MEDS: VIT B CMPLX 3/FA/VIT C/BIOTIN 1 TAB TABLET GT SCH (12:00)
[2018-10-26] MEDS: ASCORBIC ACID 500 MG TABLET GT SCH (12:00)
[2018-10-26] MEDS: LINAGLIPTIN 5 MG TABLET GT SCH (12:00)
[2018-10-26] MEDS: HYDROGEN PEROXIDE 480 ML BOTTLE TP SCH ×2 (12:00→20:50)
[2018-10-26] MEDS: ZINC OXIDE 30 GM TUBE TP SCH ×2 (12:00→20:52)
[2018-10-26] MEDS: MINERAL OIL/PETROL OINT 396 GM JAR TP SCH ×4 (12:00→20:50)
[2018-10-26] MEDS: Z GUARD REMEDY 4 OZ OINT TP SCH ×12 (12:00→20:51)
[2018-10-26] MEDS: NEPRO 1,000 ML BOTTLE GT PRN (18:20)
[2018-10-26 19:47] VITALS: BP 114/50
[2018-10-26] MEDS: LATANOPROST EYE DROP 0.005% 2.5 ML BOTTLE EACHEYE SCH (21:09)
[2018-10-26] MEDS: ATORVASTATIN 10 MG TABLET GT SCH (21:09)
[2018-10-27] VITALS (7 sets, daily range): BP systolic 106–131; BP diastolic 50–68
[2018-10-27] MEDS: IPRATROPIUM NEB FS 0.5 MG/2.5 ML AMPUL.NEB IH SCH ×4 (01:45→20:06)
[2018-10-27] MEDS: PROSTAT (PYXIS) 30 ML UDC GT SCH ×3 (04:28→21:02)
[2018-10-27] MEDS: METOCLOPRAMIDE HCL 10 MG/10 ML UDC GT SCH ×3 (04:28→21:02)
[2018-10-27] MEDS: BLOOD SUGAR DIAGNOSTIC 1 EACH STRIP IN SCH ×4 (05:11→23:18)
[2018-10-27] MEDS: SIMETHICONE SUSP 40 MG/0.6 ML BOTTLE GT SCH ×4 (05:11→23:10)
[2018-10-27] MEDS: FAMOTIDINE (20 MG) 20 MG TABLET GT SCH (05:11)
[2018-10-27] MEDS: INSULIN REGULAR, HUMAN 100 UNIT/ML 10 ML VIAL SQ SCH ×5 (05:31→23:19)
--- NOTE | 2018-10-27 06:15 | NUR ---
[facility] RN NOTE: PATIENT PICKED UP FOR DIALYSIS. G-TUBE FEEDING, FLUSHED AND DISCONNECTED. VITAL SIGNS STABLE. BLOOD SUGAR LEVEL 197MG/DL, 3 UNITS OF INSULIN TO BE GIVEN. AM MEDICATIONS GIVEN. HD PAPERWORK GIVEN TO EMT. PATIENT OFF FLOOR WITH EMT IN STABLE CONDITION.
[2018-10-27] MEDS: LINAGLIPTIN 5 MG TABLET GT SCH (11:20)
[2018-10-27] MEDS: VITAMINS A AND D 56.7 GM TUBE TP SCH ×2 (11:20→21:10)
[2018-10-27] MEDS: MINERAL OIL/PETROL OINT 396 GM JAR TP SCH ×4 (11:20→21:09)
[2018-10-27] MEDS: NYSTATIN TOP POWDER 15 GM BOTTLE TP SCH ×2 (11:20→21:09)
[2018-10-27] MEDS: ZINC OXIDE 30 GM TUBE TP SCH ×2 (11:20→21:11)
[2018-10-27] MEDS: BACI/NEOM/POLY B OINT PKT 1 UDPKT PACKET TP SCH ×6 (11:20→21:09)
[2018-10-27] MEDS: VIT B CMPLX 3/FA/VIT C/BIOTIN 1 TAB TABLET GT SCH (11:20)
[2018-10-27] MEDS: CLOTRIMAZOLE 1% 15 GM TUBE TP SCH ×2 (11:20→21:09)
[2018-10-27] MEDS: ACIDOPHILUS/BULGARICUS 1 EACH TAB.CHEW GT SCH (11:20)
[2018-10-27] MEDS: Z GUARD REMEDY 4 OZ OINT TP SCH ×12 (11:20→21:10)
[2018-10-27] MEDS: ASCORBIC ACID 500 MG TABLET GT SCH (11:20)
[2018-10-27] MEDS: VITS A AND D/WHITE PET/LANOLIN 5 GM PACKET TP SCH ×2 (11:20→21:10)
[2018-10-27] MEDS: TAMSULOSIN 0.4 MG CAP.SR.24H PO SCH (11:20)
[2018-10-27] MEDS: LACOSAMIDE 50 MG TABLET GT SCH ×2 (11:20→21:02)
[2018-10-27] MEDS: NEOMY SULF/BACITRAC ZN/POLY 15 GM TUBE TP SCH ×2 (11:20→21:09)
[2018-10-27] MEDS: FINASTERIDE (5 MG) 5 MG TABLET GT SCH (11:20)
[2018-10-27] MEDS: CHLORHEXIDINE GLUCONATE 15 ML UDC MM SCH ×2 (11:20→21:09)
[2018-10-27] MEDS: DORZOLAMIDE OPTH 2% 10 ML BOTTLE EACHEYE SCH ×3 (11:20→17:21)
[2018-10-27] MEDS: HYDROGEN PEROXIDE 480 ML BOTTLE TP SCH ×2 (11:20→21:09)
--- NOTE | 2018-10-27 11:50 | NUR ---
RT NOTE: PATIENT'S MONTHLY TRACH CHANGE DONE AT THIS TIME. PATIENT TOLERATED WELL. MODERATE AMOUNT OF BLOOD NOTED. NO REDNESS NOTED. CHARGE NURSE AWARE.
--- NOTE | 2018-10-27 20:43 | NUR ---
RT NOTE RECEIVED PT MECHANICALLY VENTILATED VIA CUFFED TRACHEOSTOMY TUBE. CUFF INFLATED. TRACH TUBE MIDLINE AND SECURE. VENTILATOR SETTINGS PRESCRIBED. ALARMS SET PER PROTOCOL AND AUDIBLE. VENT PLUGGED IN TO RED OUTLET. AMBU BAG AT BED SIDE. NO DISTRESS NOTED AT MOMENT. Addendum: 10/27/18 at 204 by CARINA SUAREZ RT Amended: Links added.
[2018-10-27] MEDS: ATORVASTATIN 10 MG TABLET GT SCH (21:03)
[2018-10-27] MEDS: LATANOPROST EYE DROP 0.005% 2.5 ML BOTTLE EACHEYE SCH (21:03)
--- NOTE | 2018-10-27 23:22 | NUR ---
RN NOTES: BLOOD SUGAR WAS 172. 3 UNITS OF INSULIN WAS ADMINISTERED. WILL CONTINUE TO MONITOR.
[2018-10-27] MEDS: NEPRO 1,000 ML BOTTLE GT PRN (23:52)
[2018-10-28 00:09] VITALS: BP 110/66
[2018-10-28] MEDS: IPRATROPIUM NEB FS 0.5 MG/2.5 ML AMPUL.NEB IH SCH ×4 (01:34→19:43)
[2018-10-28 04:39] VITALS: BP 110/54
[2018-10-28] MEDS: BLOOD SUGAR DIAGNOSTIC 1 EACH STRIP IN SCH ×3 (05:11→17:17)
[2018-10-28] MEDS: PROSTAT (PYXIS) 30 ML UDC GT SCH ×3 (05:20→21:32)
[2018-10-28] MEDS: METOCLOPRAMIDE HCL 10 MG/10 ML UDC GT SCH ×3 (05:20→21:32)
[2018-10-28] MEDS: SIMETHICONE SUSP 40 MG/0.6 ML BOTTLE GT SCH ×3 (05:21→17:05)
[2018-10-28] MEDS: FAMOTIDINE (20 MG) 20 MG TABLET GT SCH (05:21)
[2018-10-28] MEDS: INSULIN REGULAR, HUMAN 100 UNIT/ML 10 ML VIAL SQ SCH ×3 (05:21→17:18)
--- NOTE | 2018-10-28 05:44 | NUR ---
RN NOTES: BLOOD SUGAR THIS AM WAS 161. 3 UNITS OF INSULIN WAS ADMINISTERED. WILL ENDORSE TO AM NURSE.
[2018-10-28 07:30] VITALS: BP 112/63
[2018-10-28] MEDS: TAMSULOSIN 0.4 MG CAP.SR.24H PO SCH (08:41)
[2018-10-28] MEDS: BACI/NEOM/POLY B OINT PKT 1 UDPKT PACKET TP SCH ×6 (08:41→21:33)
[2018-10-28] MEDS: CHLORHEXIDINE GLUCONATE 15 ML UDC MM SCH ×2 (08:41→21:32)
[2018-10-28] MEDS: NYSTATIN TOP POWDER 15 GM BOTTLE TP SCH ×2 (08:41→21:32)
[2018-10-28] MEDS: LINAGLIPTIN 5 MG TABLET GT SCH (08:41)
[2018-10-28] MEDS: DORZOLAMIDE OPTH 2% 10 ML BOTTLE EACHEYE SCH ×3 (08:41→17:05)
[2018-10-28] MEDS: LACOSAMIDE 50 MG TABLET GT SCH ×2 (08:41→21:32)
[2018-10-28] MEDS: ACIDOPHILUS/BULGARICUS 1 EACH TAB.CHEW GT SCH (08:41)
[2018-10-28] MEDS: MINERAL OIL/PETROL OINT 396 GM JAR TP SCH ×4 (08:41→21:32)
[2018-10-28] MEDS: HYDROGEN PEROXIDE 480 ML BOTTLE TP SCH ×2 (08:41→21:32)
[2018-10-28] MEDS: FINASTERIDE (5 MG) 5 MG TABLET GT SCH (08:41)
[2018-10-28] MEDS: ASCORBIC ACID 500 MG TABLET GT SCH (08:41)
[2018-10-28] MEDS: NEOMY SULF/BACITRAC ZN/POLY 15 GM TUBE TP SCH ×2 (08:41→21:32)
[2018-10-28] MEDS: VIT B CMPLX 3/FA/VIT C/BIOTIN 1 TAB TABLET GT SCH (08:41)
[2018-10-28] MEDS: CLOTRIMAZOLE 1% 15 GM TUBE TP SCH ×2 (08:41→21:32)
[2018-10-28] MEDS: Z GUARD REMEDY 4 OZ OINT TP SCH ×12 (08:42→21:33)
[2018-10-28] MEDS: VITS A AND D/WHITE PET/LANOLIN 5 GM PACKET TP SCH ×2 (08:42→21:33)
[2018-10-28] MEDS: VITAMINS A AND D 56.7 GM TUBE TP SCH ×2 (08:42→21:33)
[2018-10-28] MEDS: ZINC OXIDE 30 GM TUBE TP SCH ×2 (08:42→21:33)
[2018-10-28 12:00] VITALS: BP 116/65
[2018-10-28] MEDS: NEPRO 1,000 ML BOTTLE GT PRN (18:28)
[2018-10-28 20:16] VITALS: BP 111/53
[2018-10-28] MEDS: ATORVASTATIN 10 MG TABLET GT SCH (21:33)
[2018-10-28] MEDS: LATANOPROST EYE DROP 0.005% 2.5 ML BOTTLE EACHEYE SCH (21:33)
[2018-10-29] VITALS (8 sets, daily range): BP systolic 120–141; BP diastolic 64–81
[2018-10-29] MEDS: SIMETHICONE SUSP 40 MG/0.6 ML BOTTLE GT SCH ×5 (00:15→23:51)
[2018-10-29] MEDS: BLOOD SUGAR DIAGNOSTIC 1 EACH STRIP IN SCH ×5 (00:15→23:51)
[2018-10-29] MEDS: INSULIN REGULAR, HUMAN 100 UNIT/ML 10 ML VIAL SQ SCH ×5 (00:16→23:53)
[2018-10-29] MEDS: IPRATROPIUM NEB FS 0.5 MG/2.5 ML AMPUL.NEB IH SCH ×4 (01:43→20:02)
[2018-10-29] MEDS: METOCLOPRAMIDE HCL 10 MG/10 ML UDC GT SCH ×3 (05:44→20:14)
[2018-10-29] MEDS: PROSTAT (PYXIS) 30 ML UDC GT SCH ×3 (05:44→20:14)
[2018-10-29] MEDS: FAMOTIDINE (20 MG) 20 MG TABLET GT SCH (05:44)
[2018-10-29] MEDS: DORZOLAMIDE OPTH 2% 10 ML BOTTLE EACHEYE SCH ×3 (08:57→17:08)
[2018-10-29] MEDS: ACIDOPHILUS/BULGARICUS 1 EACH TAB.CHEW GT SCH (08:57)
[2018-10-29] MEDS: LACOSAMIDE 50 MG TABLET GT SCH ×2 (08:59→20:24)
[2018-10-29] MEDS: FINASTERIDE (5 MG) 5 MG TABLET GT SCH (08:59)
[2018-10-29] MEDS: VIT B CMPLX 3/FA/VIT C/BIOTIN 1 TAB TABLET GT SCH (08:59)
[2018-10-29] MEDS: LINAGLIPTIN 5 MG TABLET GT SCH (08:59)
[2018-10-29] MEDS: TAMSULOSIN 0.4 MG CAP.SR.24H PO SCH (09:00)
[2018-10-29] MEDS: NYSTATIN TOP POWDER 15 GM BOTTLE TP SCH ×2 (09:00→20:21)
[2018-10-29] MEDS: NEOMY SULF/BACITRAC ZN/POLY 15 GM TUBE TP SCH ×2 (09:00→20:21)
[2018-10-29] MEDS: Z GUARD REMEDY 4 OZ OINT TP SCH ×12 (09:00→20:22)
[2018-10-29] MEDS: MINERAL OIL/PETROL OINT 396 GM JAR TP SCH ×4 (09:00→20:16)
[2018-10-29] MEDS: ZINC OXIDE 30 GM TUBE TP SCH ×2 (09:00→20:22)
[2018-10-29] MEDS: CHLORHEXIDINE GLUCONATE 15 ML UDC MM SCH ×2 (09:00→20:16)
[2018-10-29] MEDS: VITS A AND D/WHITE PET/LANOLIN 5 GM PACKET TP SCH ×2 (09:00→20:22)
[2018-10-29] MEDS: VITAMINS A AND D 56.7 GM TUBE TP SCH ×2 (09:00→20:22)
[2018-10-29] MEDS: HYDROGEN PEROXIDE 480 ML BOTTLE TP SCH ×2 (09:00→20:20)
[2018-10-29] MEDS: ASCORBIC ACID 500 MG TABLET GT SCH (09:00)
[2018-10-29] MEDS: CLOTRIMAZOLE 1% 15 GM TUBE TP SCH ×2 (09:00→20:20)
[2018-10-29] MEDS: BACI/NEOM/POLY B OINT PKT 1 UDPKT PACKET TP SCH ×6 (09:00→20:21)
[2018-10-29] MEDS: ACETAMINOPHEN 650 MG/SUPP.RECT RC PRN (09:11)
--- NOTE | 2018-10-29 09:16 | NUR ---
RT NOTE RECEIVED PT MECHANICALLY VENTILATED VIA CUFFED TRACHEOSTOMY TUBE. CUFF INFLATED. TRACH TUBE MIDLINE AND SECURE. VENTILATOR SETTINGS PRESCRIBED. ALARMS SET PER PROTOCOL AND AUDIBLE. VENT PLUGGED IN TO RED OUTLET. AMBU BAG AT BED SIDE. NO DISTRESS NOTED AT MOMENT.
--- NOTE | 2018-10-29 09:20 | NUR ---
Pt has a temp of 101.3 F and nurse Shaylee gave Tylenol. Notified Dr Garduno. He ordered to do CBC, BMP, blood culture x 2, and CXR. Informed pt's son Dr Johns.
--- NOTE | 2018-10-29 12:35 | NUR ---
Rechecked pt's temp, T 99.4 F.
[2018-10-29 14:49] LABS: BASOPHILS % (AUTO) 0.3 % (0.0-2.0); EOSINOPHILS % (AUTO) 3.7 % (0.0-6.0); HEMATOCRIT 22 % (39-51); HEMOGLOBIN 7.2 g/dL (13.5-17.5); LYMPHOCYTES # (AUTO) 1.3 /CMM (0.8-4.8); LYMPHOCYTES % (AUTO) 14.8 % (20.0-44.0); MEAN CORPUSCULAR HGB CONC 32 g/dl (31.0-36.0); MEAN CORPUSCULAR VOLUME 91 fL (80-96); MONOCYTES # (AUTO) 1.1 /CMM (0.1-1.30); MONOCYTES % (AUTO) 12.9 % (2.0-12.0); NEUTROPHILS # (AUTO) 5.9 /CMM (1.8-8.9); NEUTROPHILS % (AUTO) 68.3 % (43.0-81.0); PLATELET COUNT (AUTO) 103 /CMM (150-450); RED BLOOD CELL COUNT(AUTO) 2.46 MIL/uL (4.5-6.0); WHITE BLOOD COUNT (AUTO) 8.6 K/uL (4.3-11.0)
[2018-10-29 14:54] LABS: CALCIUM, SERUM 8.8 mg/dL (8.5-10.1); CARBON DIOXIDE 31 mmol/L (21-32); CHLORIDE 97 mmol/L (98-107); CREATININE 2.8 mg/dL (0.6-1.3); GLUCOSE 199 mg/dL (74-106); POTASSIUM 2.9 mmol/L (3.5-5.1); SODIUM SERUM 137 mmol/L (136-145); UREA NITROGEN, BLOOD 64 mg/dL (7-18)
[2018-10-29 15:13] LABS: EOSINOPHILS % (MANUAL) 2 % (0-4); LYMPHOCYTES % (MANUAL) 15 % (16-48); MONOCYTES % (MANUAL) 5 % (0-11.0); NEUTROPHILS % (MANUAL) 78 (42-76)
--- NOTE | 2018-10-29 15:31 | NUR ---
Left message for Dr Lugo that pt's WBC 8.6 Hgb 7.2 Hct 22 K 2.9.
[2018-10-29] MEDS: NEPRO 1,000 ML BOTTLE GT PRN (17:04)
[2018-10-29] MEDS ORDERED: POTASSIUM CHLORIDE 20 MEQ POWDER PACKET GT ONE (20:00)
[2018-10-29] MEDS: LATANOPROST EYE DROP 0.005% 2.5 ML BOTTLE EACHEYE SCH (22:01)
[2018-10-29] MEDS: ATORVASTATIN 10 MG TABLET GT SCH (22:01)
[2018-10-30] VITALS: BP 125/68
[2018-10-30] MEDS: IPRATROPIUM NEB FS 0.5 MG/2.5 ML AMPUL.NEB IH SCH ×4 (01:53→20:17)
[2018-10-30 04:00] VITALS: BP 124/59
[2018-10-30 04:28] LABS: APPEARANCE,URINE CLEAR (CLEAR); BILIRUBIN,URINE 1+ (NEGATIVE); BLOOD, URINE 3+ Ery/uL (NEGATIVE); COLOR,URINE YELLOW (YELLOW); KETONES,URINE TRACE (NEGATIVE); LEUKOCYTE ESTERASE ,URINE 2+ (NEGATIVE); NITRITE, URINE NEGATIVE (NEGATIVE); PH,URINE 5.5 (5.0-8.0); PROTEIN,URINE 3+ mg/dl (NEGATIVE); UGLUCOSE NEGATIVE (NEGATIVE); UROBILINOGEN,URINE 0.2 EU/dL (0.2)
[2018-10-30 04:39] LABS: BACTERIA,URINE Moderate /HPF (None Seen); RBC,URINE TOO NUMEROUS TO COUN /HPF (0-2); SQUAMOUS EPITHELIAL CELL,UR Rare /HPF (None Seen); WBC,URINE TOO NUMEROUS TO COUN /HPF (0-3)
[2018-10-30] MEDS: PROSTAT (PYXIS) 30 ML UDC GT SCH ×3 (05:07→21:31)
[2018-10-30] MEDS: METOCLOPRAMIDE HCL 10 MG/10 ML UDC GT SCH ×3 (05:07→21:31)
[2018-10-30] MEDS: SIMETHICONE SUSP 40 MG/0.6 ML BOTTLE GT SCH ×3 (05:07→17:23)
[2018-10-30] MEDS: FAMOTIDINE (20 MG) 20 MG TABLET GT SCH (05:07)
[2018-10-30] MEDS: BLOOD SUGAR DIAGNOSTIC 1 EACH STRIP IN SCH ×3 (05:07→17:28)
[2018-10-30] MEDS: INSULIN REGULAR, HUMAN 100 UNIT/ML 10 ML VIAL SQ SCH ×3 (05:08→17:29)
--- NOTE | 2018-10-30 05:09 | NUR ---
RN notes blood sugar 161 mg/dl, no coverage given GT feeding will be hold because patient will go to dialysis.
--- NOTE | 2018-10-30 05:51 | NUR ---
RN Notes Patient was picked up for dialysis in stable condition. Trach intact, on portable vent with settings in place and tolerated well.
[2018-10-30] MEDS: LACOSAMIDE 50 MG TABLET GT SCH ×2 (10:00→21:31)
[2018-10-30] MEDS: VITS A AND D/WHITE PET/LANOLIN 5 GM PACKET TP SCH ×2 (10:00→21:32)
[2018-10-30] MEDS: ASCORBIC ACID 500 MG TABLET GT SCH (10:00)
[2018-10-30] MEDS: HYDROGEN PEROXIDE 480 ML BOTTLE TP SCH ×2 (10:00→21:32)
[2018-10-30] MEDS: Z GUARD REMEDY 4 OZ OINT TP SCH ×12 (10:00→21:32)
[2018-10-30] MEDS: ZINC OXIDE 30 GM TUBE TP SCH ×2 (10:00→21:33)
[2018-10-30] MEDS: VIT B CMPLX 3/FA/VIT C/BIOTIN 1 TAB TABLET GT SCH (10:00)
[2018-10-30] MEDS: LINAGLIPTIN 5 MG TABLET GT SCH (10:00)
[2018-10-30] MEDS: VITAMINS A AND D 56.7 GM TUBE TP SCH ×2 (10:00→21:33)
[2018-10-30] MEDS: ACIDOPHILUS/BULGARICUS 1 EACH TAB.CHEW GT SCH (10:00)
[2018-10-30] MEDS: MINERAL OIL/PETROL OINT 396 GM JAR TP SCH ×4 (10:00→21:32)
[2018-10-30] MEDS: CHLORHEXIDINE GLUCONATE 15 ML UDC MM SCH ×2 (10:00→21:31)
[2018-10-30] MEDS: CLOTRIMAZOLE 1% 15 GM TUBE TP SCH ×2 (10:00→21:32)
[2018-10-30] MEDS: BACI/NEOM/POLY B OINT PKT 1 UDPKT PACKET TP SCH ×6 (10:00→21:32)
[2018-10-30] MEDS: TAMSULOSIN 0.4 MG CAP.SR.24H PO SCH (10:00)
[2018-10-30] MEDS: NYSTATIN TOP POWDER 15 GM BOTTLE TP SCH ×2 (10:00→21:32)
[2018-10-30] MEDS: DORZOLAMIDE OPTH 2% 10 ML BOTTLE EACHEYE SCH ×3 (10:00→16:22)
[2018-10-30] MEDS: NEOMY SULF/BACITRAC ZN/POLY 15 GM TUBE TP SCH ×2 (10:00→21:32)
[2018-10-30] MEDS: FINASTERIDE (5 MG) 5 MG TABLET GT SCH (10:00)
[2018-10-30 10:39] LABS: CALCIUM, SERUM 8.8 mg/dL (8.5-10.1); CARBON DIOXIDE 32 mmol/L (21-32); CHLORIDE 97 mmol/L (98-107); CREATININE 1.6 mg/dL (0.6-1.3); GLUCOSE 120 mg/dL (74-106); POTASSIUM 3.1 mmol/L (3.5-5.1); SODIUM SERUM 136 mmol/L (136-145); UREA NITROGEN, BLOOD 31 mg/dL (7-18)
--- NOTE | 2018-10-30 11:26 | NUR ---
RT NOTE PT RETURNED TO FACILITY FROM DIALYSIS. PT IS MECHANICALLY VENTILATED VIA SHILEY 6 CUFFED TRACHEOSTOMY TUBE. CUFF INFLATED VIA AUDIT CLERKS SUPERVISOR. TRACH TUBE MIDLINE AND SECURE. VENTILATOR SETTINGS PRESCRIBED. ALARMS SET PER PROTOCOL AND AUDIBLE. VENT PLUGGED IN TO RED OUTLET. AMBU BAG AT BED SIDE. NO DISTRESS NOTED AT MOMENT. Addendum: 10/30/18 at 1127 by CARINA SUAREZ RT Amended: Links added.
[2018-10-30 11:36] LABS: BASOPHILS % (AUTO) 0.3 % (0.0-2.0); EOSINOPHILS % (AUTO) 4.4 % (0.0-6.0); HEMATOCRIT 24 % (39-51); HEMOGLOBIN 7.7 g/dL (13.5-17.5); LYMPHOCYTES # (AUTO) 0.9 /CMM (0.8-4.8); LYMPHOCYTES % (AUTO) 10.3 % (20.0-44.0); MEAN CORPUSCULAR HGB CONC 32 g/dl (31.0-36.0); MEAN CORPUSCULAR VOLUME 91 fL (80-96); MONOCYTES % (AUTO) 12.5 % (2.0-12.0); NEUTROPHILS % (AUTO) 72.5 % (43.0-81.0); PLATELET COUNT (AUTO) 108 /CMM (150-450); RED BLOOD CELL COUNT(AUTO) 2.66 MIL/uL (4.5-6.0); WHITE BLOOD COUNT (AUTO) 8.3 K/uL (4.3-11.0)
[2018-10-30 12:00] VITALS: BP 130/70
[2018-10-30 12:10] VITALS: BP 109/24
[2018-10-30 12:12] LABS: BAND % (MANUAL) 10 % (0.0-5.0); EOSINOPHILS % (MANUAL) 2 % (0-4); LYMPHOCYTES % (MANUAL) 5 % (16-48); METAMYELOCYTES % 1 % (0-0); MONOCYTES % (MANUAL) 5 % (0-11.0); MYELOCYTES % 1 % (0-0); NEUTROPHILS % (MANUAL) 76 (42-76)
--- NOTE | 2018-10-30 18:50 | NUR ---
Seen by Dr Garduno. He ordered to DC Parra catheter.
--- NOTE | 2018-10-30 18:54 | NUR ---
Notified BRANDO Pineda that pt's potassium level is 3.1.
--- NOTE | 2018-10-30 20:10 | NUR ---
Parra catheter in place and draining. Secured catheter to left leg. Clamped catheter.Left resident attached to vent via trach and breathing WNL. NO SOB noted.
[2018-10-30] MEDS: POTASSIUM CHLORIDE 20 MEQ POWDER PACKET GT SCH (20:30)
[2018-10-30 21:26] VITALS: BP 111/60
[2018-10-30] MEDS: ATORVASTATIN 10 MG TABLET GT SCH (21:33)
[2018-10-30] MEDS: LATANOPROST EYE DROP 0.005% 2.5 ML BOTTLE EACHEYE SCH (21:33)
--- NOTE | 2018-10-30 22:15 | NUR ---
Resident attached to vent breathing even and unlabored. Unclamped Parra Catheter and noted scant amount of urine draining. Left resident with all needs met.
[2018-10-31] MEDS: SIMETHICONE SUSP 40 MG/0.6 ML BOTTLE GT SCH ×4 (00:02→17:10)
[2018-10-31] MEDS: INSULIN REGULAR, HUMAN 100 UNIT/ML 10 ML VIAL SQ SCH ×4 (00:03→17:15)
[2018-10-31] MEDS: BLOOD SUGAR DIAGNOSTIC 1 EACH STRIP IN SCH ×4 (00:03→17:10)
--- NOTE | 2018-10-31 00:20 | NUR ---
Resident attached to vent, breathing even and unlabored. Clamped dyer catheter. Left resident with all needs met.
[2018-10-31] MEDS: IPRATROPIUM NEB FS 0.5 MG/2.5 ML AMPUL.NEB IH SCH ×4 (01:30→19:58)
--- NOTE | 2018-10-31 02:25 | NUR ---
Resident in bed. Breathing even and unlabored attached to vent. Unclamped Parra catheter. Scant amount of urine noted draining.Left with all needs met.
[2018-10-31] MEDS: POTASSIUM CHLORIDE 20 MEQ POWDER PACKET GT SCH (02:30)
[2018-10-31 03:35] VITALS: BP 133/60
[2018-10-31 04:00] VITALS: BP 133/60
--- NOTE | 2018-10-31 04:30 | NUR ---
Resident in bed breathing even and unlabored via Vent. Parra catheter intact. Draining and secured. Unclamped Parra. Scant amount of urine drainage noted. Left resident with all needs met.
[2018-10-31] MEDS: METOCLOPRAMIDE HCL 10 MG/10 ML UDC GT SCH ×2 (05:37→12:52)
[2018-10-31] MEDS: PROSTAT (PYXIS) 30 ML UDC GT SCH ×3 (05:37→22:00)
[2018-10-31] MEDS: FAMOTIDINE (20 MG) 20 MG TABLET GT SCH (05:37)
[2018-10-31 07:30] VITALS: BP 94/60
[2018-10-31] MEDS: DORZOLAMIDE OPTH 2% 10 ML BOTTLE EACHEYE SCH ×3 (08:39→17:10)
[2018-10-31] MEDS: CHLORHEXIDINE GLUCONATE 15 ML UDC MM SCH ×2 (08:39→22:00)
--- NOTE | 2018-10-31 08:40 | NUR ---
Notified Dr. Garduno patient vomited dark brown to black color in large amount. Obtained 20 ml gastric residual after he vomited, with regular bowel movement. V/S114/67, HR117, T 100.1, 99%, R 22. New order given to keep patient NPO, GI consult with Dr. Kaplan, stat CBC, Protonix IV and to connect GT to intermittent wall suction. Left a message to Jazmin Steven NP for Dr. Kaplan. Left a message to resident's son, Dr. Johns of change in condition.
[2018-10-31 08:48] LABS: BASOPHILS # (AUTO) 0.1 /CMM (0.0-0.2); BASOPHILS % (AUTO) 0.8 % (0.0-2.0); EOSINOPHILS % (AUTO) 1.4 % (0.0-6.0); HEMATOCRIT 25 % (39-51); LYMPHOCYTES # (AUTO) 0.7 /CMM (0.8-4.8); LYMPHOCYTES % (AUTO) 8.6 % (20.0-44.0); MEAN CORPUSCULAR HGB CONC 32 g/dl (31.0-36.0); MEAN CORPUSCULAR VOLUME 91 fL (80-96); MONOCYTES # (AUTO) 0.4 /CMM (0.1-1.30); MONOCYTES % (AUTO) 5.5 % (2.0-12.0); NEUTROPHILS # (AUTO) 6.8 /CMM (1.8-8.9); NEUTROPHILS % (AUTO) 83.7 % (43.0-81.0); PLATELET COUNT (AUTO) 125 /CMM (150-450); RED BLOOD CELL COUNT(AUTO) 2.74 MIL/uL (4.5-6.0); WHITE BLOOD COUNT (AUTO) 8.1 K/uL (4.3-11.0)
[2018-10-31] MEDS: NEOMY SULF/BACITRAC ZN/POLY 15 GM TUBE TP SCH ×2 (09:00→22:00)
[2018-10-31] MEDS: TAMSULOSIN 0.4 MG CAP.SR.24H PO SCH (09:00)
[2018-10-31] MEDS: VITS A AND D/WHITE PET/LANOLIN 5 GM PACKET TP SCH ×2 (09:00→22:00)
[2018-10-31] MEDS: HYDROGEN PEROXIDE 480 ML BOTTLE TP SCH ×2 (09:00→22:00)
[2018-10-31] MEDS: VIT B CMPLX 3/FA/VIT C/BIOTIN 1 TAB TABLET GT SCH (09:00)
[2018-10-31] MEDS: ASCORBIC ACID 500 MG TABLET GT SCH (09:00)
[2018-10-31] MEDS: ZINC OXIDE 30 GM TUBE TP SCH (09:00)
[2018-10-31] MEDS: ACIDOPHILUS/BULGARICUS 1 EACH TAB.CHEW GT SCH (09:00)
[2018-10-31] MEDS: Z GUARD REMEDY 4 OZ OINT TP SCH ×10 (09:00→22:00)
[2018-10-31] MEDS: VITAMINS A AND D 56.7 GM TUBE TP SCH ×2 (09:00→22:00)
[2018-10-31] MEDS: MINERAL OIL/PETROL OINT 396 GM JAR TP SCH ×4 (09:00→22:00)
[2018-10-31] MEDS: POTASSIUM CHLORIDE 20 MEQ TAB.PRT.SR PO SCH (09:00)
[2018-10-31] MEDS: NYSTATIN TOP POWDER 15 GM BOTTLE TP SCH ×2 (09:00→22:00)
[2018-10-31] MEDS: LACOSAMIDE 50 MG TABLET GT SCH ×2 (09:00→22:00)
[2018-10-31] MEDS: LINAGLIPTIN 5 MG TABLET GT SCH (09:00)
[2018-10-31] MEDS: FINASTERIDE (5 MG) 5 MG TABLET GT SCH (09:00)
[2018-10-31] MEDS: CLOTRIMAZOLE 1% 15 GM TUBE TP SCH ×2 (09:00→22:00)
[2018-10-31] MEDS: BACI/NEOM/POLY B OINT PKT 1 UDPKT PACKET TP SCH ×4 (09:00→22:00)
--- NOTE | 2018-10-31 10:10 | NUR ---
GT connected to intermittent wall suction, at this time canister has 300 ml of gastric drainage, coffee ground in color. No further vomiting at this time. Resident in no acute s/s of respiratory distress.
[2018-10-31 12:00] VITALS: BP 144/92
--- NOTE | 2018-10-31 13:40 | NUR ---
Dr. Kaplan () in to see patient and spoke with resident's son on the phone and discussed the possibility of EGD in AM, Per Dr. Kaplan the son agreed to the procedure. He said to keep NPO and obtain consent for the procedure. Informed Dr. Kaplan that patient will have outpatient dialysis tomorrow morning and will be back before 11AM. He said he will schedule EGD around 1300.
[2018-10-31] MEDS: PANTOPRAZOLE 40 MG VIAL IV SCH ×2 (17:21→19:53)
--- NOTE | 2018-10-31 17:22 | NUR ---
Protonix IVP not given, medication not available at this time. Spoke with AK from [facility] pharmacy to follow-up Protonix IV, she said that it will be delivered in the 7 PM run. Endorsed.
[2018-10-31 18:00] VITALS: BP 112/58
--- NOTE | 2018-10-31 18:00 | NUR ---
Left a message to Dr. Garduno and CRUSHER ASSEMBLER Jazmin Steven to find out if patient should have IVF since he is NPO since this morning. Patient stable at this time, BS @ 1700= 198, Gastric drainage 1100 ml of dark coffee ground color. Awaiting for call back.
--- NOTE | 2018-10-31 19:30 | NUR ---
FILM SOUND ENGINEER Jazmin Steven new order Reglan 5 mg IV q6hrs for gastroparesis,discontinue Reglan 5mg gt q 8hrs,continue to hold meds and feeding.Call her @ 10pm to update GT output from intermittent suction.She might resume feeding if residual is less.EGD procedure probably on Monday.Will continue to monitor.
--- NOTE | 2018-10-31 20:38 | NUR ---
PATIENT RECEIVED ON MECHANICAL VENTILATION. CUFF CHECKED VIA ENDODONTIST. AMBU BAG/BACK UP TRACH @ BEDSIDE. VENT PLUGGED INTO RED OUTLET. ALARMS ON AND AUDIBLE. TX GIVEN, NO ADVERSE REACTIONS NOTED. SX DONE, MODERATE THICK YELLOW/WHITE SECRETIONS NOTED. PATIENT STABLE. WILL MONITOR. Addendum: 10/31/18 at 2038 by GINGER YOU RT Amended: Links added.
[2018-10-31 20:47] VITALS: BP 119/69
[2018-10-31] MEDS ORDERED: PANTOPRAZOLE 40 MG VIAL IV SCH (21:00)
[2018-10-31 21:03] LABS: CALCIUM, SERUM 9.1 mg/dL (8.5-10.1); CARBON DIOXIDE 33 mmol/L (21-32); CHLORIDE 98 mmol/L (98-107); CREATININE 3.1 mg/dL (0.6-1.3); GLUCOSE 190 mg/dL (74-106); POTASSIUM 3.8 mmol/L (3.5-5.1); SODIUM SERUM 137 mmol/L (136-145); UREA NITROGEN, BLOOD 62 mg/dL (7-18)
--- NOTE | 2018-10-31 21:30 | NUR ---
Discontinue dyer catheter after 24hrs of clamping.Will continue to monitor.
--- NOTE | 2018-10-31 21:41 | NUR ---
GT output via intermittent suction 20ml.Jazmin Steven CRUTCH MAKER notified and ordered to resume GT feeding,discontinue Gt intermittent suction,d/c NPO and resume medications.Will carry out orders.Son at bedside and made aware of new order.Will continue to monitor.
[2018-10-31] MEDS: LATANOPROST EYE DROP 0.005% 2.5 ML BOTTLE EACHEYE SCH (22:32)
[2018-10-31] MEDS: ATORVASTATIN 10 MG TABLET GT SCH (22:32)
[2018-10-31] MEDS: METOCLOPRAMIDE HCL 10 MG/2 ML VIAL IV SCH (23:54)
[2018-11-01] MEDS: BLOOD SUGAR DIAGNOSTIC 1 EACH STRIP IN SCH ×4 (00:06→17:33)
[2018-11-01] MEDS: SIMETHICONE SUSP 40 MG/0.6 ML BOTTLE GT SCH ×4 (00:06→17:33)
[2018-11-01] MEDS: INSULIN REGULAR, HUMAN 100 UNIT/ML 10 ML VIAL SQ SCH ×4 (00:08→17:34)
[2018-11-01 00:13] VITALS: BP 144/67
[2018-11-01] MEDS: IPRATROPIUM NEB FS 0.5 MG/2.5 ML AMPUL.NEB IH SCH ×4 (01:26→19:10)
[2018-11-01] MEDS: METOCLOPRAMIDE HCL 10 MG/2 ML VIAL IV SCH ×3 (05:08→18:00)
[2018-11-01] MEDS: PANTOPRAZOLE 40 MG VIAL IV SCH ×2 (05:08→18:00)
[2018-11-01] MEDS: PROSTAT (PYXIS) 30 ML UDC GT SCH ×3 (05:25→21:38)
[2018-11-01] MEDS: FAMOTIDINE (20 MG) 20 MG TABLET GT SCH (05:25)
[2018-11-01 05:27] VITALS: BP 120/67
--- NOTE | 2018-11-01 05:45 | NUR ---
Patient picked up by [facility] ambulance crew for dialysis at [facility] ,vital signs stable,BP120/67,Temp 98.7,HR 90.Patient tolerated feeding maximum residual 60ml milk formula.Will continue to monitor.
[2018-11-01] MEDS: POTASSIUM CHLORIDE 20 MEQ TAB.PRT.SR PO SCH (09:00)
[2018-11-01 10:30] VITALS: BP 114/67
[2018-11-01] MEDS: LACOSAMIDE 50 MG TABLET GT SCH ×2 (10:30→21:38)
[2018-11-01] MEDS: VITAMINS A AND D 56.7 GM TUBE TP SCH ×2 (10:30→21:39)
[2018-11-01] MEDS: VIT B CMPLX 3/FA/VIT C/BIOTIN 1 TAB TABLET GT SCH (10:30)
[2018-11-01] MEDS: HYDROGEN PEROXIDE 480 ML BOTTLE TP SCH ×2 (10:30→21:38)
[2018-11-01] MEDS: VITS A AND D/WHITE PET/LANOLIN 5 GM PACKET TP SCH ×2 (10:30→21:39)
[2018-11-01] MEDS: ACIDOPHILUS/BULGARICUS 1 EACH TAB.CHEW GT SCH (10:30)
[2018-11-01] MEDS: LINAGLIPTIN 5 MG TABLET GT SCH (10:30)
[2018-11-01] MEDS: FINASTERIDE (5 MG) 5 MG TABLET GT SCH (10:30)
[2018-11-01] MEDS: ASCORBIC ACID 500 MG TABLET GT SCH (10:30)
[2018-11-01] MEDS: NYSTATIN TOP POWDER 15 GM BOTTLE TP SCH ×2 (10:30→21:38)
[2018-11-01] MEDS: DORZOLAMIDE OPTH 2% 10 ML BOTTLE EACHEYE SCH ×3 (10:30→17:33)
[2018-11-01] MEDS: CHLORHEXIDINE GLUCONATE 15 ML UDC MM SCH ×2 (10:30→21:38)
[2018-11-01] MEDS: BACI/NEOM/POLY B OINT PKT 1 UDPKT PACKET TP SCH ×2 (10:30→21:39)
[2018-11-01] MEDS: TAMSULOSIN 0.4 MG CAP.SR.24H PO SCH (10:30)
[2018-11-01] MEDS: CLOTRIMAZOLE 1% 15 GM TUBE TP SCH ×2 (10:30→21:38)
[2018-11-01] MEDS: NEOMY SULF/BACITRAC ZN/POLY 15 GM TUBE TP SCH ×4 (10:30→21:39)
[2018-11-01] MEDS: MINERAL OIL/PETROL OINT 396 GM JAR TP SCH ×4 (10:30→21:38)
[2018-11-01] MEDS: Z GUARD REMEDY 4 OZ OINT TP SCH ×11 (10:30→21:39)
--- NOTE | 2018-11-01 11:51 | NUR ---
Called surgery department to ask about pt's schedule for EGD. Spoke with Peter who said that Dr Kaplan has already finished his cases today and pt has not been scheduled for today or tomorrow. Left message for STATIONARY ENGINEER Jazmin Steven to follow up on EGD schedule.
[2018-11-01 12:17] VITALS: BP 112/57
[2018-11-01] MEDS: NEPRO 1,000 ML BOTTLE GT PRN (14:31)
--- NOTE | 2018-11-01 16:25 | NUR ---
Seen by BRANDO Pineda. Relayed urine C & S result to her. Urine culture shows E coli and P aeruginosa. She said to relay the result to Dr Swenson. Called Dr Swenson's office and left message with Na. Addendum: 11/01/18 at 1829 by MAGDA LOBO RN BRANDO Pineda ordered to do BMP on 11/05/18 to follow up on potassium level.
[2018-11-01 18:09] VITALS: BP 116/68
--- NOTE | 2018-11-01 18:33 | NUR ---
No episode of vomiting noted throughout this shift. Pt did not have a bowel movement, however pt have bowel sounds. No gastric residuals noted.
--- NOTE | 2018-11-01 20:22 | NUR ---
PATIENT RECEIVED MECHANICAL VENTILATION WITH SETTINGS OF AC 12, 500 VT, 40%, +5. SUCTIONED FOR MINIMAL, THIN, WHITE SECRETIONS. GIVEN IN-LINE TREATMENTS WITH NO ADVERSE REACTIONS. AMBU BAG AT BEDSIDE. VENT ALARM AUDIBLE AND VISIBLE. VENT PLUGGED INTO RED OUTLET. Addendum: 11/01/18 at 2022 by CHUCKY OLIVAS RT Amended: Links added.
[2018-11-01 20:36] VITALS: BP 113/49
[2018-11-01] MEDS: LATANOPROST EYE DROP 0.005% 2.5 ML BOTTLE EACHEYE SCH (21:39)
[2018-11-01] MEDS: ATORVASTATIN 10 MG TABLET GT SCH (21:40)
[2018-11-02] VITALS (7 sets, daily range): BP systolic 119–129; BP diastolic 58–72
[2018-11-02] MEDS: BLOOD SUGAR DIAGNOSTIC 1 EACH STRIP IN SCH ×5 (00:36→23:58)
[2018-11-02] MEDS: SIMETHICONE SUSP 40 MG/0.6 ML BOTTLE GT SCH ×5 (00:36→23:58)
[2018-11-02] MEDS: INSULIN REGULAR, HUMAN 100 UNIT/ML 10 ML VIAL SQ SCH ×5 (00:36→23:59)
[2018-11-02] MEDS: IPRATROPIUM NEB FS 0.5 MG/2.5 ML AMPUL.NEB IH SCH ×4 (00:53→19:49)
[2018-11-02] MEDS: FAMOTIDINE (20 MG) 20 MG TABLET GT SCH (05:44)
[2018-11-02] MEDS: PROSTAT (PYXIS) 30 ML UDC GT SCH ×3 (05:44→20:51)
[2018-11-02] MEDS: PANTOPRAZOLE 40 MG VIAL IV SCH ×2 (06:15→18:49)
[2018-11-02] MEDS: METOCLOPRAMIDE HCL 10 MG/2 ML VIAL IV SCH ×4 (06:16→18:50)
--- NOTE | 2018-11-02 06:23 | NUR ---
Remains stable during the night,no emesis,residual maximum @ 30 ml.IV Reglan and Protonix given as ordered.Will continue to monitor.
[2018-11-02] MEDS: VIT B CMPLX 3/FA/VIT C/BIOTIN 1 TAB TABLET GT SCH (09:09)
[2018-11-02] MEDS: LINAGLIPTIN 5 MG TABLET GT SCH (09:09)
[2018-11-02] MEDS: TAMSULOSIN 0.4 MG CAP.SR.24H PO SCH (09:09)
[2018-11-02] MEDS: ASCORBIC ACID 500 MG TABLET GT SCH (09:09)
[2018-11-02] MEDS: ACIDOPHILUS/BULGARICUS 1 EACH TAB.CHEW GT SCH (09:09)
[2018-11-02] MEDS: MINERAL OIL/PETROL OINT 396 GM JAR TP SCH ×3 (09:09→20:52)
[2018-11-02] MEDS: DORZOLAMIDE OPTH 2% 10 ML BOTTLE EACHEYE SCH ×3 (09:09→17:28)
[2018-11-02] MEDS: FINASTERIDE (5 MG) 5 MG TABLET GT SCH (09:09)
[2018-11-02] MEDS: POTASSIUM CHLORIDE 20 MEQ TAB.PRT.SR PO SCH (09:09)
[2018-11-02] MEDS: LACOSAMIDE 50 MG TABLET GT SCH ×2 (09:09→20:51)
[2018-11-02] MEDS: CHLORHEXIDINE GLUCONATE 15 ML UDC MM SCH ×2 (09:09→20:52)
[2018-11-02] MEDS: Z GUARD REMEDY 4 OZ OINT TP SCH ×6 (09:10→20:55)
[2018-11-02] MEDS: NEOMY SULF/BACITRAC ZN/POLY 15 GM TUBE TP SCH ×3 (09:10)
[2018-11-02] MEDS: HYDROGEN PEROXIDE 480 ML BOTTLE TP SCH ×2 (09:10→20:52)
[2018-11-02] MEDS: BACI/NEOM/POLY B OINT PKT 1 UDPKT PACKET TP SCH ×4 (09:10→20:55)
[2018-11-02] MEDS: CLOTRIMAZOLE 1% 15 GM TUBE TP SCH ×2 (09:10→20:53)
[2018-11-02] MEDS: VITS A AND D/WHITE PET/LANOLIN 5 GM PACKET TP SCH ×2 (09:11→20:55)
[2018-11-02] MEDS: VITAMINS A AND D 56.7 GM TUBE TP SCH (09:11)
[2018-11-02] MEDS: NEPRO 1,000 ML BOTTLE GT PRN (09:15)
--- NOTE | 2018-11-02 09:26 | NUR ---
RT NOTE PATIENT RECEIVED MECHANICAL VENTILATION WITH SETTINGS OF AC 12, 500 VT, 40%, +5. SUCTIONED FOR MINIMAL, THIN, WHITE SECRETIONS. GIVEN IN-LINE TREATMENTS WITH NO ADVERSE REACTIONS. AMBU BAG AT BEDSIDE. VENT ALARM AUDIBLE AND VISIBLE. VENT PLUGGED INTO RED OUTLET.
[2018-11-02] MEDS ORDERED: ONDANSETRON 4 MG TAB.RAPDIS GT PRN (12:14)
--- NOTE | 2018-11-02 15:00 | NUR ---
INTERDISCIPLINARY TEAM CONFERENCE (IDT) was held today. Resident's son, Nat attended today's IDT meeting vis phone conference. Dr. Ramírez and the interdisciplinary team reviewed the current plan of care in detail. Orders as well as treatment and medications were reviewed. Resident is readmitted from [facility] on 10/23 s/p platelet transfusion. Continue on HD 3x/week, F/C has been discontinued. EGD schedule pending but most likely will happen next week due to GI bleeding. Currently patient on GT feeding no further episode of coffee ground emesis. Receiving 5mg Reglan Q 6 hours and IV Protonix 40 mg. Q 12 hours. Resident also to be started with IV ATB for UTI. Midline in the R upper arm patent.
--- NOTE | 2018-11-02 15:42 | NUR ---
Noted an order from Dr. Swenson ID to start patient with Fortaz 1 gm, Q 12 hours until 11/06/18, repeat CBC and CMP on Monday11/05/18, Procalcitonin level in AM. Order faxed to pharmacy.
[2018-11-02] MEDS: CEFTAZIDIME 1 G in IV D5W 50 ML IV SCH (17:00)
--- NOTE | 2018-11-02 18:00 | NUR ---
Left a message to Jazmin Steven NP regarding when EGD will be scheduled, Per it will be on Monday but she is transactional attorney this weekend and will notify the nurse for sure and will give the order.
[2018-11-02] MEDS: ATORVASTATIN 10 MG TABLET GT SCH (21:15)
[2018-11-02] MEDS: LATANOPROST EYE DROP 0.005% 2.5 ML BOTTLE EACHEYE SCH (21:15)
[2018-11-03] MEDS: METOCLOPRAMIDE HCL 10 MG/2 ML VIAL IV SCH ×4 (00:05→18:46)
[2018-11-03] MEDS: IPRATROPIUM NEB FS 0.5 MG/2.5 ML AMPUL.NEB IH SCH ×4 (01:13→20:20)
[2018-11-03] MEDS: ACETAMINOPHEN 650 MG/20.3 ML UDC GT PRN (03:30)
--- NOTE | 2018-11-03 03:35 | NUR ---
SCREEN REPAIRER CRUSHER NOTE: Noted patient in discomfort with HR 107, Resp 41 with temp of 99.9A, Suctioned and repositioned for comfort. PRN Tylenol 650 mg given via gt as ordered, no residual noted. Will continue to monitor.
[2018-11-03] MEDS: CEFTAZIDIME 1 G in IV D5W 50 ML IV SCH ×2 (04:10→16:31)
--- NOTE | 2018-11-03 05:00 | NUR ---
DISTRIBUTION TECHNICIAN NOTE: Tylenol effective, no pain /discomfort noted HR 87, REsp 28. Will continue to monitor.
[2018-11-03] MEDS: PANTOPRAZOLE 40 MG VIAL IV SCH ×2 (05:39→18:43)
[2018-11-03] MEDS: PROSTAT (PYXIS) 30 ML UDC GT SCH ×3 (05:50→21:11)
[2018-11-03] MEDS: INSULIN REGULAR, HUMAN 100 UNIT/ML 10 ML VIAL SQ SCH ×3 (05:50→18:20)
[2018-11-03] MEDS: BLOOD SUGAR DIAGNOSTIC 1 EACH STRIP IN SCH ×3 (05:50→18:20)
[2018-11-03] MEDS: SIMETHICONE SUSP 40 MG/0.6 ML BOTTLE GT SCH ×3 (05:50→18:20)
[2018-11-03] MEDS: FAMOTIDINE (20 MG) 20 MG TABLET GT SCH (05:50)
--- NOTE | 2018-11-03 06:22 | NUR ---
SUBACUTE RN NOTE: PATIENT OFF TO DIALYSIS WITH EMT AND RT. REPORT AND PAPERWORK GIVEN TO EMT. VITAL SIGNS STABLE, NO ACUTE DISTRESS NOTED. Addendum: 11/03/18 at 0635 by YASMIN HOUSTON RN SUCTION BAG AND VENT WITH EMT.
[2018-11-03] MEDS: ACIDOPHILUS/BULGARICUS 1 EACH TAB.CHEW GT SCH (10:45)
[2018-11-03] MEDS: HYDROGEN PEROXIDE 480 ML BOTTLE TP SCH ×2 (10:45→21:15)
[2018-11-03] MEDS: DORZOLAMIDE OPTH 2% 10 ML BOTTLE EACHEYE SCH ×3 (10:45→17:00)
[2018-11-03] MEDS: LACOSAMIDE 50 MG TABLET GT SCH ×2 (10:45→21:11)
[2018-11-03] MEDS: TAMSULOSIN 0.4 MG CAP.SR.24H PO SCH (10:45)
[2018-11-03] MEDS: Z GUARD REMEDY 4 OZ OINT TP SCH ×6 (10:45→21:17)
[2018-11-03] MEDS: FINASTERIDE (5 MG) 5 MG TABLET GT SCH (10:45)
[2018-11-03] MEDS: MINERAL OIL/PETROL OINT 396 GM JAR TP SCH ×2 (10:45→21:15)
[2018-11-03] MEDS: POTASSIUM CHLORIDE 20 MEQ POWDER PACKET GT SCH (10:45)
[2018-11-03] MEDS: VIT B CMPLX 3/FA/VIT C/BIOTIN 1 TAB TABLET GT SCH (10:45)
[2018-11-03] MEDS: BACI/NEOM/POLY B OINT PKT 1 UDPKT PACKET TP SCH ×6 (10:45→21:16)
[2018-11-03] MEDS: LINAGLIPTIN 5 MG TABLET GT SCH (10:45)
[2018-11-03] MEDS: CLOTRIMAZOLE 1% 15 GM TUBE TP SCH ×2 (10:45→21:15)
[2018-11-03] MEDS: VITS A AND D/WHITE PET/LANOLIN 5 GM PACKET TP SCH ×2 (10:45→21:17)
[2018-11-03] MEDS: CHLORHEXIDINE GLUCONATE 15 ML UDC MM SCH ×2 (10:45→21:11)
[2018-11-03] MEDS: ASCORBIC ACID 500 MG TABLET GT SCH (10:45)
--- NOTE | 2018-11-03 10:45 | NUR ---
Resident returned back from dialysis in stable condition, no bleeding in HD access site. Upon returnin noted respiration slightly shallow and rapid at 30-34. RT at bedside. Will monitor condition.
[2018-11-03 16:00] VITALS: BP 108/66
--- NOTE | 2018-11-03 19:00 | NUR ---
Resident's son, Nat visited earlier and while he was applying lotion to his father's skin, patient's respiration noted to be within normal limits of 14-16. Left a message to Jazmin Steven NP that patient having high gastric residual of 200 ml. feeding held at this time. Endorsed.
[2018-11-03 20:35] VITALS: BP 128/74
[2018-11-03] MEDS: ATORVASTATIN 10 MG TABLET GT SCH (21:17)
[2018-11-03] MEDS: LATANOPROST EYE DROP 0.005% 2.5 ML BOTTLE EACHEYE SCH (21:17)
--- NOTE | 2018-11-03 22:09 | NUR ---
Late Entry 09/22/18 @ 2331 BS : 221mg/dl is not recorded to EMAR. Coverage given per sliding scale.
[2018-11-04] MEDS: SIMETHICONE SUSP 40 MG/0.6 ML BOTTLE GT SCH ×5 (00:14→23:52)
[2018-11-04] MEDS: BLOOD SUGAR DIAGNOSTIC 1 EACH STRIP IN SCH ×5 (00:14→23:53)
[2018-11-04] MEDS: INSULIN REGULAR, HUMAN 100 UNIT/ML 10 ML VIAL SQ SCH ×5 (00:16→23:54)
[2018-11-04] MEDS: IPRATROPIUM NEB FS 0.5 MG/2.5 ML AMPUL.NEB IH SCH ×4 (00:42→19:36)
[2018-11-04] MEDS: CEFTAZIDIME 1 G in IV D5W 50 ML IV SCH ×2 (04:00→16:00)
[2018-11-04] MEDS: PROSTAT (PYXIS) 30 ML UDC GT SCH ×3 (05:41→21:06)
[2018-11-04] MEDS: FAMOTIDINE (20 MG) 20 MG TABLET GT SCH (05:41)
[2018-11-04] MEDS: PANTOPRAZOLE 40 MG VIAL IV SCH ×2 (06:28→18:36)
[2018-11-04] MEDS: METOCLOPRAMIDE HCL 10 MG/2 ML VIAL IV SCH ×4 (06:29→18:36)
[2018-11-04 07:33] VITALS: BP 112/55
[2018-11-04] MEDS: POTASSIUM CHLORIDE 20 MEQ POWDER PACKET GT SCH (08:41)
[2018-11-04] MEDS: VIT B CMPLX 3/FA/VIT C/BIOTIN 1 TAB TABLET GT SCH (08:41)
[2018-11-04] MEDS: LINAGLIPTIN 5 MG TABLET GT SCH (08:41)
[2018-11-04] MEDS: HYDROGEN PEROXIDE 480 ML BOTTLE TP SCH ×2 (08:41→21:06)
[2018-11-04] MEDS: ACIDOPHILUS/BULGARICUS 1 EACH TAB.CHEW GT SCH (08:41)
[2018-11-04] MEDS: FINASTERIDE (5 MG) 5 MG TABLET GT SCH (08:41)
[2018-11-04] MEDS: CHLORHEXIDINE GLUCONATE 15 ML UDC MM SCH ×2 (08:41→21:06)
[2018-11-04] MEDS: ASCORBIC ACID 500 MG TABLET GT SCH (08:41)
[2018-11-04] MEDS: LACOSAMIDE 50 MG TABLET GT SCH ×2 (08:41→21:06)
[2018-11-04] MEDS: MINERAL OIL/PETROL OINT 396 GM JAR TP SCH ×2 (08:41→21:06)
[2018-11-04] MEDS: CLOTRIMAZOLE 1% 15 GM TUBE TP SCH ×2 (08:41→21:06)
[2018-11-04] MEDS: DORZOLAMIDE OPTH 2% 10 ML BOTTLE EACHEYE SCH ×3 (08:41→17:05)
[2018-11-04] MEDS: TAMSULOSIN 0.4 MG CAP.SR.24H PO SCH (08:41)
[2018-11-04] MEDS: BACI/NEOM/POLY B OINT PKT 1 UDPKT PACKET TP SCH ×6 (08:42→21:07)
[2018-11-04] MEDS: Z GUARD REMEDY 4 OZ OINT TP SCH ×6 (08:42→21:07)
[2018-11-04] MEDS: VITS A AND D/WHITE PET/LANOLIN 5 GM PACKET TP SCH ×2 (08:42→21:07)
[2018-11-04 11:50] VITALS: BP 120/59
[2018-11-04] MEDS: ACETAMINOPHEN 650 MG/20.3 ML UDC GT PRN (12:09)
--- NOTE | 2018-11-04 13:00 | NUR ---
Seen and examined by BRANDO Lozano. Informed about low grade temp. 99.5F and thick yellow trach secretions. Ordered CXR in AM.
[2018-11-04 16:00] VITALS: BP 113/66
--- NOTE | 2018-11-04 17:00 | NUR ---
BRANDO Wu came and see resident and said she will try to sched. EGD for stacey and she will let us know once scheduled for the preparation.
[2018-11-04] MEDS: NEPRO 1,000 ML BOTTLE GT PRN (17:06)
[2018-11-04 20:04] VITALS: BP 113/66
--- NOTE | 2018-11-04 21:03 | NUR ---
RT NOTE PATIENT WAS RECEIVED ON CONTINUOUS VENT SUPPORT ON NOTED VENT SETTINGS. HHN INLINE TREATMENT WAS GIVEN, NO ADVERSE REACTION NOTED ,PRN SUCTION WAS DONE. TRACH TUBE PATENT AND SECURED. ALARMS ON AND AUDIBLE. BRADY AND JUAN CHENG AT [facility]. WILL CONTINUE TO MONITOR PATIENT Addendum: 11/04/18 at 2103 by ABEBA SUAREZ RT Amended: Links added.
[2018-11-04] MEDS: LATANOPROST EYE DROP 0.005% 2.5 ML BOTTLE EACHEYE SCH (21:07)
[2018-11-04] MEDS: ATORVASTATIN 10 MG TABLET GT SCH (21:07)
[2018-11-05] MEDS: IPRATROPIUM NEB FS 0.5 MG/2.5 ML AMPUL.NEB IH SCH ×4 (01:30→20:08)
[2018-11-05] MEDS: CEFTAZIDIME 1 G in IV D5W 50 ML IV SCH ×2 (03:27→16:00)
[2018-11-05] MEDS: FAMOTIDINE (20 MG) 20 MG TABLET GT SCH (05:44)
[2018-11-05] MEDS: SIMETHICONE SUSP 40 MG/0.6 ML BOTTLE GT SCH ×4 (05:44→23:44)
[2018-11-05] MEDS: PROSTAT (PYXIS) 30 ML UDC GT SCH ×3 (05:44→21:27)
[2018-11-05] MEDS: PANTOPRAZOLE 40 MG VIAL IV SCH ×2 (06:00→17:19)
[2018-11-05] MEDS: METOCLOPRAMIDE HCL 10 MG/2 ML VIAL IV SCH ×5 (06:00→23:57)
[2018-11-05] MEDS: BLOOD SUGAR DIAGNOSTIC 1 EACH STRIP IN SCH ×4 (06:09→23:44)
[2018-11-05] MEDS: INSULIN REGULAR, HUMAN 100 UNIT/ML 10 ML VIAL SQ SCH ×4 (06:10→23:45)
[2018-11-05 06:52] LABS: BASOPHILS % (AUTO) 0.2 % (0.0-2.0); EOSINOPHILS % (AUTO) 1.9 % (0.0-6.0); HEMATOCRIT 25 % (39-51); HEMOGLOBIN 7.8 g/dL (13.5-17.5); LYMPHOCYTES # (AUTO) 0.9 /CMM (0.8-4.8); LYMPHOCYTES % (AUTO) 8.7 % (20.0-44.0); MEAN CORPUSCULAR HGB CONC 32 g/dl (31.0-36.0); MEAN CORPUSCULAR VOLUME 93 fL (80-96); MONOCYTES # (AUTO) 0.6 /CMM (0.1-1.30); MONOCYTES % (AUTO) 6.3 % (2.0-12.0); NEUTROPHILS # (AUTO) 8.4 /CMM (1.8-8.9); NEUTROPHILS % (AUTO) 82.9 % (43.0-81.0); PLATELET COUNT (AUTO) 170 /CMM (150-450); RED BLOOD CELL COUNT(AUTO) 2.66 MIL/uL (4.5-6.0); WHITE BLOOD COUNT (AUTO) 10.2 K/uL (4.3-11.0)
[2018-11-05 07:15] LABS: ALANINE AMINOTRANSFERASE 30 U/L (12-78); ALBUMIN 1.9 g/dL (3.4-5.0); ALKALINE PHOSPHATASE 384 U/L (46-116); ASPARTATE AMINOTRANSFERASE 36 U/L (15-37); BILIRUBIN,TOTAL 0.8 mg/dL (0.2-1.0); CALCIUM, SERUM 8.9 mg/dL (8.5-10.1); CARBON DIOXIDE 29 mmol/L (21-32); CHLORIDE 101 mmol/L (98-107); CREATININE 3.2 mg/dL (0.6-1.3); GLUCOSE 227 mg/dL (74-106); POTASSIUM 3.7 mmol/L (3.5-5.1); SODIUM SERUM 139 mmol/L (136-145); TOTAL PROTEIN, SERUM 8.6 g/dL (6.4-8.2); UREA NITROGEN, BLOOD 69 mg/dL (7-18)
[2018-11-05 07:59] LABS: BAND % (MANUAL) 12 % (0.0-5.0); EOSINOPHILS % (MANUAL) 2 % (0-4); LYMPHOCYTES % (MANUAL) 12 % (16-48); MONOCYTES % (MANUAL) 5 % (0-11.0); NEUTROPHILS % (MANUAL) 69 (42-76)
[2018-11-05 08:06] VITALS: BP 109/64
[2018-11-05] MEDS: Z GUARD REMEDY 4 OZ OINT TP SCH ×6 (09:00→21:29)
[2018-11-05] MEDS: BACI/NEOM/POLY B OINT PKT 1 UDPKT PACKET TP SCH ×6 (09:00→21:28)
[2018-11-05] MEDS: MINERAL OIL/PETROL OINT 396 GM JAR TP SCH ×2 (09:00→21:27)
[2018-11-05] MEDS: VITS A AND D/WHITE PET/LANOLIN 5 GM PACKET TP SCH ×2 (09:00→21:29)
[2018-11-05] MEDS: HYDROGEN PEROXIDE 480 ML BOTTLE TP SCH ×2 (09:00→21:27)
[2018-11-05] MEDS: CLOTRIMAZOLE 1% 15 GM TUBE TP SCH ×2 (09:00→21:27)
[2018-11-05] MEDS: POTASSIUM CHLORIDE 20 MEQ POWDER PACKET GT SCH (09:05)
[2018-11-05] MEDS: DORZOLAMIDE OPTH 2% 10 ML BOTTLE EACHEYE SCH ×3 (09:05→17:15)
[2018-11-05] MEDS: FINASTERIDE (5 MG) 5 MG TABLET GT SCH (09:06)
[2018-11-05] MEDS: LINAGLIPTIN 5 MG TABLET GT SCH (09:06)
[2018-11-05] MEDS: LACOSAMIDE 50 MG TABLET GT SCH ×2 (09:06→21:27)
[2018-11-05] MEDS: ACIDOPHILUS/BULGARICUS 1 EACH TAB.CHEW GT SCH (09:06)
[2018-11-05] MEDS: VIT B CMPLX 3/FA/VIT C/BIOTIN 1 TAB TABLET GT SCH (09:06)
[2018-11-05] MEDS: TAMSULOSIN 0.4 MG CAP.SR.24H PO SCH (09:07)
[2018-11-05] MEDS: CHLORHEXIDINE GLUCONATE 15 ML UDC MM SCH ×2 (09:07→21:27)
[2018-11-05] MEDS: ASCORBIC ACID 500 MG TABLET GT SCH (09:07)
--- NOTE | 2018-11-05 11:52 | NUR ---
Surgery department called. According to Estefania, pt has an EGD scheduled at 1230 today. Subacute staff was not informed about the scheduled EGD for today and there is no order for pt to be NPO. Pt has been getting continuous feeding. Estefania said Dr Kaplan will reschedule pt. Addendum: 11/05/18 at 1722 by MAGDA LOBO RN Left message for BRANDO Steven.
[2018-11-05 12:00] VITALS: BP 117/77
[2018-11-05] MEDS: NEPRO 1,000 ML BOTTLE GT PRN (13:20)
--- NOTE | 2018-11-05 15:00 | NUR ---
Seen by Dr Garduno. No new order.
--- NOTE | 2018-11-05 17:21 | NUR ---
BRANDO Steven said EGD will not be done tomorrow, but it will most likely be done on Monday11/07/18.
[2018-11-05 18:46] VITALS: BP 108/67
--- NOTE | 2018-11-05 19:04 | NUR ---
Seen by DIRECTOR DERMATOLOGY Nilam Pineda. Relayed CBC BMP CXR results to her. No new order.
[2018-11-05 19:40] VITALS: BP 110/52
[2018-11-05] MEDS: ATORVASTATIN 10 MG TABLET GT SCH (21:29)
[2018-11-05] MEDS: LATANOPROST EYE DROP 0.005% 2.5 ML BOTTLE EACHEYE SCH (21:29)
[2018-11-06] MEDS: IPRATROPIUM NEB FS 0.5 MG/2.5 ML AMPUL.NEB IH SCH ×4 (01:45→20:04)
[2018-11-06] MEDS: CEFTAZIDIME 1 G in IV D5W 50 ML IV SCH ×2 (04:00→16:00)
[2018-11-06] MEDS: PROSTAT (PYXIS) 30 ML UDC GT SCH ×3 (05:00→21:35)
--- NOTE | 2018-11-06 06:00 | NUR ---
Transport arrived for Dialysis Appointment. Sent via [facility] with one RT and two EMT.
[2018-11-06] MEDS: BLOOD SUGAR DIAGNOSTIC 1 EACH STRIP IN SCH ×4 (06:18→23:54)
[2018-11-06] MEDS: FAMOTIDINE (20 MG) 20 MG TABLET GT SCH (06:18)
[2018-11-06] MEDS: SIMETHICONE SUSP 40 MG/0.6 ML BOTTLE GT SCH ×4 (06:18→23:54)
[2018-11-06] MEDS: INSULIN REGULAR, HUMAN 100 UNIT/ML 10 ML VIAL SQ SCH ×4 (06:19→23:55)
--- NOTE | 2018-11-06 10:15 | NUR ---
Mary of [facility] called and said that pt had a seizure 5 minutes prior to treatment which lasted 2 minutes long. She said they informed Dr Jeronimo and he did not give any orders. Notified Dr Garduno. No new order.
[2018-11-06 10:45] VITALS: BP 108/59
[2018-11-06] MEDS: HYDROGEN PEROXIDE 480 ML BOTTLE TP SCH ×2 (10:45→21:36)
[2018-11-06] MEDS: BACI/NEOM/POLY B OINT PKT 1 UDPKT PACKET TP SCH ×6 (10:45→21:36)
[2018-11-06] MEDS: DORZOLAMIDE OPTH 2% 10 ML BOTTLE EACHEYE SCH ×3 (10:45→17:25)
[2018-11-06] MEDS: TAMSULOSIN 0.4 MG CAP.SR.24H PO SCH (10:45)
[2018-11-06] MEDS: FINASTERIDE (5 MG) 5 MG TABLET GT SCH (10:45)
[2018-11-06] MEDS: LACOSAMIDE 50 MG TABLET GT SCH ×2 (10:45→21:35)
[2018-11-06] MEDS: VIT B CMPLX 3/FA/VIT C/BIOTIN 1 TAB TABLET GT SCH (10:45)
[2018-11-06] MEDS: VITS A AND D/WHITE PET/LANOLIN 5 GM PACKET TP SCH ×2 (10:45→21:36)
[2018-11-06] MEDS: Z GUARD REMEDY 4 OZ OINT TP SCH ×6 (10:45→21:36)
[2018-11-06] MEDS: ASCORBIC ACID 500 MG TABLET GT SCH (10:45)
[2018-11-06] MEDS: ACIDOPHILUS/BULGARICUS 1 EACH TAB.CHEW GT SCH (10:45)
[2018-11-06] MEDS: POTASSIUM CHLORIDE 20 MEQ POWDER PACKET GT SCH (10:45)
[2018-11-06] MEDS: MINERAL OIL/PETROL OINT 396 GM JAR TP SCH ×2 (10:45→21:35)
[2018-11-06] MEDS: CLOTRIMAZOLE 1% 15 GM TUBE TP SCH ×2 (10:45→21:36)
[2018-11-06] MEDS: CHLORHEXIDINE GLUCONATE 15 ML UDC MM SCH ×2 (10:45→21:35)
[2018-11-06] MEDS: LINAGLIPTIN 5 MG TABLET GT SCH (10:45)
--- NOTE | 2018-11-06 11:45 | NUR ---
Pt has a gastric residual of 180 mL. Tube feeding was held. HOB elevated.
[2018-11-06] MEDS: METOCLOPRAMIDE HCL 10 MG/2 ML VIAL IV SCH ×2 (12:00→18:00)
--- NOTE | 2018-11-06 13:00 | NUR ---
Pt has no more gastric residual. Tube feeding resumed.
[2018-11-06 13:40] VITALS: BP 103/65
--- NOTE | 2018-11-06 15:21 | NUR ---
PT REC'D TRACHED ON [facility] VENT ON AC MODE. NO RESP DISTRESS OR SOB NOTED. TRACH PATENT AND SECURED. SX'D FOR MOD AMT OF THICK YELLOW SECRETIONS. ALARMS ARE SET AND AUDIBLE. VENT PLUGGED INTO RED OUTLET. AMBU BAG BEDSIDE. WILL CONTINUE TO MONITOR. Addendum: 11/06/18 at 1521 by PAUL ALMARAZ RT Amended: Links added.
[2018-11-06] MEDS: PANTOPRAZOLE 40 MG VIAL IV SCH (18:00)
--- NOTE | 2018-11-06 18:28 | NUR ---
Pt's son visiting. Informed him that pt had a seizure this morning while at the dialysis center, Dr Jeronimo and Dr Garduno were notified.
[2018-11-06 18:32] VITALS: BP 106/62
[2018-11-06 20:46] VITALS: BP 108/53
[2018-11-06 21:33] VITALS: BP 108/53
[2018-11-06] MEDS: LATANOPROST EYE DROP 0.005% 2.5 ML BOTTLE EACHEYE SCH (21:36)
[2018-11-06] MEDS: ATORVASTATIN 10 MG TABLET GT SCH (21:36)
[2018-11-07] MEDS: IPRATROPIUM NEB FS 0.5 MG/2.5 ML AMPUL.NEB IH SCH ×4 (00:52→19:43)
[2018-11-07 03:35] VITALS: BP 111/68
[2018-11-07 05:07] VITALS: BP 108/62
[2018-11-07] MEDS: SIMETHICONE SUSP 40 MG/0.6 ML BOTTLE GT SCH ×4 (05:53→23:55)
[2018-11-07] MEDS: BLOOD SUGAR DIAGNOSTIC 1 EACH STRIP IN SCH ×4 (05:53→23:55)
[2018-11-07] MEDS: FAMOTIDINE (20 MG) 20 MG TABLET GT SCH (05:53)
[2018-11-07] MEDS: PROSTAT (PYXIS) 30 ML UDC GT SCH ×3 (05:53→21:30)
[2018-11-07] MEDS: INSULIN REGULAR, HUMAN 100 UNIT/ML 10 ML VIAL SQ SCH ×4 (05:55→23:56)
[2018-11-07] MEDS: PANTOPRAZOLE 40 MG VIAL IV SCH ×2 (06:08→18:59)
[2018-11-07] MEDS: METOCLOPRAMIDE HCL 10 MG/2 ML VIAL IV SCH ×4 (06:08→18:59)
[2018-11-07 07:44] VITALS: BP 103/55
[2018-11-07] MEDS: MINERAL OIL/PETROL OINT 396 GM JAR TP SCH ×2 (09:00→21:30)
[2018-11-07] MEDS: Z GUARD REMEDY 4 OZ OINT TP SCH ×4 (09:00→21:31)
[2018-11-07] MEDS: VITS A AND D/WHITE PET/LANOLIN 5 GM PACKET TP SCH ×2 (09:00→21:31)
[2018-11-07] MEDS: BACI/NEOM/POLY B OINT PKT 1 UDPKT PACKET TP SCH ×4 (09:00→21:30)
[2018-11-07] MEDS: HYDROGEN PEROXIDE 480 ML BOTTLE TP SCH ×2 (09:00→21:30)
[2018-11-07] MEDS: CLOTRIMAZOLE 1% 15 GM TUBE TP SCH (09:00)
[2018-11-07] MEDS: DORZOLAMIDE OPTH 2% 10 ML BOTTLE EACHEYE SCH ×3 (09:27→17:26)
[2018-11-07] MEDS: POTASSIUM CHLORIDE 20 MEQ POWDER PACKET GT SCH (09:27)
[2018-11-07] MEDS: VIT B CMPLX 3/FA/VIT C/BIOTIN 1 TAB TABLET GT SCH (09:27)
[2018-11-07] MEDS: ACIDOPHILUS/BULGARICUS 1 EACH TAB.CHEW GT SCH (09:27)
[2018-11-07] MEDS: LACOSAMIDE 50 MG TABLET GT SCH ×2 (09:28→21:30)
[2018-11-07] MEDS: FINASTERIDE (5 MG) 5 MG TABLET GT SCH (09:28)
[2018-11-07] MEDS: LINAGLIPTIN 5 MG TABLET GT SCH (09:28)
[2018-11-07] MEDS: ASCORBIC ACID 500 MG TABLET GT SCH (09:28)
[2018-11-07] MEDS: TAMSULOSIN 0.4 MG CAP.SR.24H PO SCH (09:29)
[2018-11-07] MEDS: CHLORHEXIDINE GLUCONATE 15 ML UDC MM SCH ×2 (09:29→21:30)
[2018-11-07 12:00] VITALS: BP 100/66
--- NOTE | 2018-11-07 13:00 | NUR ---
Spoke with Dr. Jacobo, neurologist to clarify Vimpat order if she wants patient to receive 100mg. now in addition to the 50 mg that patient received this morning, she said yes. Order carried out.
[2018-11-07] MEDS ORDERED: LACOSAMIDE 50 MG TABLET GT ONE ×2 (14:00→14:30)
[2018-11-07] MEDS: NEPRO 1,000 ML BOTTLE GT PRN (14:05)
[2018-11-07] MEDS ORDERED: LACOSAMIDE 50 MG TABLET PO ONE (14:30)
--- NOTE | 2018-11-07 15:36 | NUR ---
LATE ANAMIKA NOTES ON SEPTEMBER 30/2013 1200 PM BS-150 MG/DL, ADMINISTERED 2 UNITS OF INSULIN RIGHT UPPER QUADRANT OF ABDOMEN.
--- NOTE | 2018-11-07 16:57 | NUR ---
Received and order from Jazmin Steven NP for Dr. Kaplan that EGD is schedule for tomorrow at 0730, NPO after midnight including medications, to obtain consent for EGD and PT/PTT. Admitting department aware of the procedure tomorrow and will create a new account for the procedure, surgery department informed c/o Peter. Notified resident's son, Dr. Johns of EGD in AM, he said that consent has been signed a couple of days ago but if a more updated consent is needed, he will give one in AM. Dr. Johns also notified that neurologist, Dr. Jacobo increased Vimpat from 50mg. q12 hours to 100 mg. q 12h. Appreciated the call.
--- NOTE | 2018-11-07 17:37 | NUR ---
Notified Mary from [facility] that patient has EGD schedule for tomorrow morning and will conflict with patient's dialysis schedule, therefore patient will not be able to come for treatment. Mary said to call dialysis center in the morning between 6 am to 7 am and speak with [facility] to find out if there are open slot in the afternoon. According to Mary she does not have any opening at this time. Dr. Garduno notified of EGD schedule tomorrow which conflicts with dialysis schedule. Endorsed to follow-up in AM to reschedule dialysis in the afternoon. Spoke with Leon from [facility] transportation and cancelled AM pick and possibly reschedule a lease picker in the afternoon.
[2018-11-07 18:00] VITALS: BP 120/63
--- NOTE | 2018-11-07 19:20 | NUR ---
BRANDO Wu came to the unit to confirmed schedule for EGD in AM @ 7:30 AM.Pt will be NPO including meds after midnight,PTPTT,will carried out.
--- NOTE | 2018-11-07 19:42 | NUR ---
RT Pt received trach'd [facility] w charted settings. Vent is plugged into red outlet w ambubag @ hob. Alarms are set and audible. Trach is secure and patent.. Hhn tx given and pt sx'd w no adverse reactions. No respiratory distress noted @ this time. Will continue to monitor. Addendum: 11/07/18 at 2134 by ADAMARIS ALCANTAR RT Amended: Links added.
--- NOTE | 2018-11-07 19:50 | NUR ---
Telephone consent obtained from son Jose Johns for EGD in AM 11/08/18.Witnessed by Heydi Jay LVN.
[2018-11-07] MEDS: ATORVASTATIN 10 MG TABLET GT SCH (21:31)
[2018-11-07] MEDS: LATANOPROST EYE DROP 0.005% 2.5 ML BOTTLE EACHEYE SCH (21:31)
[2018-11-07 21:34] VITALS: BP 118/61
[2018-11-08] VITALS (8 sets, daily range): BP systolic 109–119; BP diastolic 54–71
[2018-11-08] MEDS: METOCLOPRAMIDE HCL 10 MG/2 ML VIAL IV SCH ×5 (00:05→18:00)
[2018-11-08] MEDS: IPRATROPIUM NEB FS 0.5 MG/2.5 ML AMPUL.NEB IH SCH ×4 (01:06→19:50)
[2018-11-08] MEDS: PROSTAT (PYXIS) 30 ML UDC GT SCH ×3 (05:00→20:50)
[2018-11-08] MEDS: SIMETHICONE SUSP 40 MG/0.6 ML BOTTLE GT SCH ×4 (06:00→23:23)
[2018-11-08] MEDS: FAMOTIDINE (20 MG) 20 MG TABLET GT SCH (06:00)
[2018-11-08] MEDS: PANTOPRAZOLE 40 MG VIAL IV SCH ×2 (06:02→18:00)
[2018-11-08] MEDS: BLOOD SUGAR DIAGNOSTIC 1 EACH STRIP IN SCH ×4 (06:07→23:23)
[2018-11-08] MEDS: INSULIN REGULAR, HUMAN 100 UNIT/ML 10 ML VIAL SQ SCH ×4 (06:08→23:25)
--- NOTE | 2018-11-08 06:21 | NUR ---
Spoke with Jefferson from [facility],no available chair time for patient today.He said tomorrow at 11/09/18 at 5pm, schedule arranged for dialysis tomorrow.[facility] will pecan picker patient @ 4:30pm ,spoke to Gary.Will endorse and will notify MD and Son.
--- NOTE | 2018-11-08 09:40 | NUR ---
EGD done by Dr Kaplan. According to him, pt has some irritation on the throat and he saw streaks in the stomach which might have been caused by vomiting. Dr Kaplan said there is nothing to worry about. Informed pt's son that EGD was already done and also of what Dr Kaplan said, but he is aware that there is no final report yet. Pt's BP 107/49 P 80 T 98.1 F R 22 O2 sat 100%. Dr Kaplan ordered to resume all orders prior to EGD and feeding at 11am.
[2018-11-08] MEDS: VITS A AND D/WHITE PET/LANOLIN 5 GM PACKET TP SCH ×2 (09:54→20:50)
[2018-11-08] MEDS: Z GUARD REMEDY 4 OZ OINT TP SCH ×4 (09:54→20:50)
[2018-11-08] MEDS: MINERAL OIL/PETROL OINT 396 GM JAR TP SCH ×2 (09:54→20:50)
[2018-11-08] MEDS: BACI/NEOM/POLY B OINT PKT 1 UDPKT PACKET TP SCH ×4 (09:54→20:50)
[2018-11-08] MEDS: HYDROGEN PEROXIDE 480 ML BOTTLE TP SCH ×2 (09:54→20:50)
[2018-11-08] MEDS: LACOSAMIDE 50 MG TABLET GT SCH ×2 (11:07→20:50)
[2018-11-08] MEDS: ACIDOPHILUS/BULGARICUS 1 EACH TAB.CHEW GT SCH (11:08)
[2018-11-08] MEDS: CHLORHEXIDINE GLUCONATE 15 ML UDC MM SCH ×2 (11:08→20:50)
[2018-11-08] MEDS: ASCORBIC ACID 500 MG TABLET GT SCH (11:08)
[2018-11-08] MEDS: FINASTERIDE (5 MG) 5 MG TABLET GT SCH (11:08)
[2018-11-08] MEDS: VIT B CMPLX 3/FA/VIT C/BIOTIN 1 TAB TABLET GT SCH (11:08)
[2018-11-08] MEDS: TAMSULOSIN 0.4 MG CAP.SR.24H PO SCH (11:08)
[2018-11-08] MEDS: LINAGLIPTIN 5 MG TABLET GT SCH (11:08)
[2018-11-08] MEDS: POTASSIUM CHLORIDE 20 MEQ POWDER PACKET GT SCH (11:08)
[2018-11-08] MEDS: DORZOLAMIDE OPTH 2% 10 ML BOTTLE EACHEYE SCH ×3 (11:08→17:11)
[2018-11-08] MEDS: ACETAMINOPHEN 650 MG/20.3 ML UDC GT PRN (16:59)
--- NOTE | 2018-11-08 18:22 | NUR ---
Angela from [facility] called today to say that chair time is moved to 3:30 pm tomorrow. Arranged transportation with Danny Kunz to miner pick patient at 3:00 pm, spoke with Fly.
[2018-11-08] MEDS: ATORVASTATIN 10 MG TABLET GT SCH (21:05)
[2018-11-08] MEDS: LATANOPROST EYE DROP 0.005% 2.5 ML BOTTLE EACHEYE SCH (21:05)
[2018-11-08] MEDS: NEPRO 1,000 ML BOTTLE GT PRN (23:23)
[2018-11-09] VITALS (7 sets, daily range): BP systolic 110–120; BP diastolic 58–71
[2018-11-09] MEDS: METOCLOPRAMIDE HCL 10 MG/2 ML VIAL IV SCH ×5 (00:12→23:38)
[2018-11-09] MEDS: IPRATROPIUM NEB FS 0.5 MG/2.5 ML AMPUL.NEB IH SCH ×4 (01:27→19:30)
[2018-11-09] MEDS: FAMOTIDINE (20 MG) 20 MG TABLET GT SCH (05:34)
[2018-11-09] MEDS: SIMETHICONE SUSP 40 MG/0.6 ML BOTTLE GT SCH ×3 (05:34→18:00)
[2018-11-09] MEDS: BLOOD SUGAR DIAGNOSTIC 1 EACH STRIP IN SCH ×3 (05:34→18:00)
[2018-11-09] MEDS: PROSTAT (PYXIS) 30 ML UDC GT SCH ×3 (05:34→20:46)
[2018-11-09] MEDS: INSULIN REGULAR, HUMAN 100 UNIT/ML 10 ML VIAL SQ SCH ×3 (05:35→18:00)
[2018-11-09] MEDS: PANTOPRAZOLE 40 MG VIAL IV SCH (06:09)
--- NOTE | 2018-11-09 07:36 | NUR ---
PT RECEIVED ON [facility] VENT ON THE FOLLOWING NOTED SETTINGS. NO RESP DISTRESS OR SOB NOTED AT THIS TIME. PT SX'D. BREATHING TX GIVEN, NO ADVERSE REACTIONS NOTED. SPARE TRACH AND AMBU BAG ARE AT BEDSIDE. WILL CONT TO MONITOR PT. VENT IS PLUGGED INTO RED OUTLET AND ALARMS ARE ON AND AUDIBLE. Addendum: 11/09/18 at 0737 by NEAL HERNANDEZ RT Amended: Links added.
[2018-11-09] MEDS: POTASSIUM CHLORIDE 20 MEQ POWDER PACKET GT SCH (08:48)
[2018-11-09] MEDS: TAMSULOSIN 0.4 MG CAP.SR.24H PO SCH (08:48)
[2018-11-09] MEDS: CHLORHEXIDINE GLUCONATE 15 ML UDC MM SCH ×2 (08:48→20:46)
[2018-11-09] MEDS: VIT B CMPLX 3/FA/VIT C/BIOTIN 1 TAB TABLET GT SCH (08:48)
[2018-11-09] MEDS: LINAGLIPTIN 5 MG TABLET GT SCH (08:48)
[2018-11-09] MEDS: LACOSAMIDE 50 MG TABLET GT SCH ×2 (08:48→20:46)
[2018-11-09] MEDS: ACIDOPHILUS/BULGARICUS 1 EACH TAB.CHEW GT SCH (08:48)
[2018-11-09] MEDS: DORZOLAMIDE OPTH 2% 10 ML BOTTLE EACHEYE SCH ×3 (08:48→17:00)
[2018-11-09] MEDS: ASCORBIC ACID 500 MG TABLET GT SCH (08:48)
[2018-11-09] MEDS: FINASTERIDE (5 MG) 5 MG TABLET GT SCH (08:48)
[2018-11-09] MEDS: Z GUARD REMEDY 4 OZ OINT TP SCH ×4 (09:00→20:46)
[2018-11-09] MEDS: VITS A AND D/WHITE PET/LANOLIN 5 GM PACKET TP SCH ×2 (09:00→20:46)
[2018-11-09] MEDS: BACI/NEOM/POLY B OINT PKT 1 UDPKT PACKET TP SCH ×4 (09:00→20:46)
[2018-11-09] MEDS: HYDROGEN PEROXIDE 480 ML BOTTLE TP SCH ×2 (09:00→20:46)
[2018-11-09] MEDS: MINERAL OIL/PETROL OINT 396 GM JAR TP SCH ×2 (09:00→20:46)
--- NOTE | 2018-11-09 12:30 | NUR ---
Clarified with PICTURES EDITOR Jazmin Steven if Protonix IV can be changed to via GT, PICTURES EDITOR gave an order to change it via GT. Order faxed to [facility] pharmacy.
--- NOTE | 2018-11-09 14:30 | NUR ---
Spoke with Mary, motorized squad lieutenant nurse at [facility] asked if she could relay the a message to cnc operator programmer regarding patient's son's concern. Family wants to know when and if patient's dialysis can be reduced to 2x per week. According to Mary she will endorse to other CN to have Dr. Mirza review his labs when he comes to see patient. The percentage of urea reduction ratio (URR) and CK/Bun ratio is what determines whether patient's dialysis frequency will be reduced.
--- NOTE | 2018-11-09 15:30 | NUR ---
Resident went out for dialysis at [facility] per [facility]. Awake, stable vital signs. Appears comfortable. Trach secured and intact, on mechanical vent. No signs of resp distress. All emergency equipment taken. Jeremiah cath on left chest intact, with dry dressing.
--- NOTE | 2018-11-09 17:20 | NUR ---
Received a call from [facility] pharmacy c/o Kourtney who said that Protonix tablet cannot be crushed, asked what is the substitute, she said that she will refer to pharmacist and will call the facility back. Meanwhile requested dose from [facility] pharmacy.
--- NOTE | 2018-11-09 19:20 | NUR ---
Jazmin Steven, PATIENT CENTERED CARE SPECIALIST came to see patient but he is out for dialysis, Asked if she wants to continue Protonix in addition to Pepecid, she said to DC Protonix if patient is on Pepcid. Endorsed to incoming shift.
--- NOTE | 2018-11-09 20:05 | NUR ---
Pt came back S/p Dialysis- V/s wnl- no signs of acute distress noted, afebrile; Jeremiah Cath on left chest noted w/ clean & dry dressing, no bleeding noted. Trach midline- patent , secured - connected to vent machine. Pt safely transferred to bed by [facility] transport staff, Hob kept elevated, Sr's up for safety, pulse ox monitor on w/ audible alarm set. Cont to monitor and anticipate needs.
[2018-11-09] MEDS ORDERED: PANTOPRAZOLE 40 MG/PACK PACK GT SCH (21:00)
[2018-11-09] MEDS: ATORVASTATIN 10 MG TABLET GT SCH (21:17)
[2018-11-09] MEDS: LATANOPROST EYE DROP 0.005% 2.5 ML BOTTLE EACHEYE SCH (21:17)
[2018-11-10] VITALS (7 sets, daily range): BP systolic 110–125; BP diastolic 57–74
[2018-11-10] MEDS: BLOOD SUGAR DIAGNOSTIC 1 EACH STRIP IN SCH ×5 (00:24→23:17)
[2018-11-10] MEDS: SIMETHICONE SUSP 40 MG/0.6 ML BOTTLE GT SCH ×5 (00:24→23:17)
[2018-11-10] MEDS: INSULIN REGULAR, HUMAN 100 UNIT/ML 10 ML VIAL SQ SCH ×5 (00:26→23:18)
[2018-11-10] MEDS: IPRATROPIUM NEB FS 0.5 MG/2.5 ML AMPUL.NEB IH SCH ×4 (02:21→19:39)
[2018-11-10] MEDS: NEPRO 1,000 ML BOTTLE GT PRN (03:36)
[2018-11-10] MEDS: FAMOTIDINE (20 MG) 20 MG TABLET GT SCH (05:16)
[2018-11-10] MEDS: PROSTAT (PYXIS) 30 ML UDC GT SCH ×3 (05:16→20:50)
[2018-11-10] MEDS: METOCLOPRAMIDE HCL 10 MG/2 ML VIAL IV SCH ×3 (06:00→18:07)
--- NOTE | 2018-11-10 06:17 | NUR ---
Resident completed and tolerated am care; went out for dialysis at [facility] per [facility]. Awake, stable vital signs. Appears comfortable. Trach secured and intact, on mechanical vent. No signs of resp distress. All emergency equipment taken. Jeremiah cath on left chest intact, with dry dressing.
--- NOTE | 2018-11-10 10:30 | NUR ---
Resident returned back from dialysis in stable condition accompanied by ambulance crew and RT. No s/s of respiratory distress or discomfort, patient attached to vent, RT checked proper setting and connections. Jeremiah cath in the L upper chest intact, with clean dressing, no s/s of bleeding. V/S 125/71, 98.3, 90, 16.
[2018-11-10] MEDS: DORZOLAMIDE OPTH 2% 10 ML BOTTLE EACHEYE SCH ×3 (10:45→17:32)
[2018-11-10] MEDS: FINASTERIDE (5 MG) 5 MG TABLET GT SCH (10:50)
[2018-11-10] MEDS: POTASSIUM CHLORIDE 20 MEQ POWDER PACKET GT SCH (10:50)
[2018-11-10] MEDS: LINAGLIPTIN 5 MG TABLET GT SCH (10:50)
[2018-11-10] MEDS: VIT B CMPLX 3/FA/VIT C/BIOTIN 1 TAB TABLET GT SCH (10:50)
[2018-11-10] MEDS: ACIDOPHILUS/BULGARICUS 1 EACH TAB.CHEW GT SCH (10:50)
[2018-11-10] MEDS: TAMSULOSIN 0.4 MG CAP.SR.24H PO SCH (10:51)
[2018-11-10] MEDS: LACOSAMIDE 50 MG TABLET GT SCH ×2 (10:51→20:51)
[2018-11-10] MEDS: ASCORBIC ACID 500 MG TABLET GT SCH (10:51)
[2018-11-10] MEDS: CHLORHEXIDINE GLUCONATE 15 ML UDC MM SCH ×2 (11:00→20:51)
[2018-11-10] MEDS: MINERAL OIL/PETROL OINT 396 GM JAR TP SCH ×2 (11:20→20:51)
[2018-11-10] MEDS: VITS A AND D/WHITE PET/LANOLIN 5 GM PACKET TP SCH ×2 (11:20→20:51)
[2018-11-10] MEDS: HYDROGEN PEROXIDE 480 ML BOTTLE TP SCH ×2 (11:20→20:51)
[2018-11-10] MEDS: BACI/NEOM/POLY B OINT PKT 1 UDPKT PACKET TP SCH ×4 (11:20→20:51)
[2018-11-10] MEDS: Z GUARD REMEDY 4 OZ OINT TP SCH ×4 (11:20→20:51)
--- NOTE | 2018-11-10 17:03 | NUR ---
Dr. Johns, son at bedside, made him aware that his concern about when to reduce patient's dialysis days was relayed to [facility] charge nurse yesterday and will inform MD if patient's lab result is within the parameter. Appreciated the effort of relaying his concern.
[2018-11-10] MEDS: LATANOPROST EYE DROP 0.005% 2.5 ML BOTTLE EACHEYE SCH (21:07)
[2018-11-10] MEDS: ATORVASTATIN 10 MG TABLET GT SCH (21:07)
[2018-11-10] MEDS: NEOMY SULF/BACITRAC ZN/POLY 15 GM TUBE TP SCH (21:07)
[2018-11-11] VITALS (8 sets, daily range): BP systolic 117–142; BP diastolic 59–83
[2018-11-11] MEDS: IPRATROPIUM NEB FS 0.5 MG/2.5 ML AMPUL.NEB IH SCH ×4 (01:35→19:43)
[2018-11-11] MEDS: BLOOD SUGAR DIAGNOSTIC 1 EACH STRIP IN SCH ×3 (05:20→18:00)
[2018-11-11] MEDS: SIMETHICONE SUSP 40 MG/0.6 ML BOTTLE GT SCH ×3 (05:20→17:56)
[2018-11-11] MEDS: FAMOTIDINE (20 MG) 20 MG TABLET GT SCH (05:20)
[2018-11-11] MEDS: PROSTAT (PYXIS) 30 ML UDC GT SCH ×3 (05:20→21:18)
[2018-11-11] MEDS: INSULIN REGULAR, HUMAN 100 UNIT/ML 10 ML VIAL SQ SCH ×3 (05:21→18:05)
[2018-11-11] MEDS: METOCLOPRAMIDE HCL 10 MG/2 ML VIAL IV SCH ×4 (05:23→18:35)
[2018-11-11] MEDS: POTASSIUM CHLORIDE 20 MEQ POWDER PACKET GT SCH (08:38)
[2018-11-11] MEDS: ACIDOPHILUS/BULGARICUS 1 EACH TAB.CHEW GT SCH (08:39)
[2018-11-11] MEDS: TAMSULOSIN 0.4 MG CAP.SR.24H PO SCH (08:40)
[2018-11-11] MEDS: CHLORHEXIDINE GLUCONATE 15 ML UDC MM SCH ×2 (08:40→21:18)
[2018-11-11] MEDS: ASCORBIC ACID 500 MG TABLET GT SCH (08:40)
[2018-11-11] MEDS: FINASTERIDE (5 MG) 5 MG TABLET GT SCH (08:40)
[2018-11-11] MEDS: LINAGLIPTIN 5 MG TABLET GT SCH (08:40)
[2018-11-11] MEDS: DORZOLAMIDE OPTH 2% 10 ML BOTTLE EACHEYE SCH ×3 (08:41→17:56)
[2018-11-11] MEDS: LACOSAMIDE 50 MG TABLET GT SCH ×2 (08:41→21:18)
[2018-11-11] MEDS: VIT B CMPLX 3/FA/VIT C/BIOTIN 1 TAB TABLET GT SCH (08:50)
[2018-11-11] MEDS: HYDROGEN PEROXIDE 480 ML BOTTLE TP SCH ×2 (09:00→21:18)
[2018-11-11] MEDS: BACI/NEOM/POLY B OINT PKT 1 UDPKT PACKET TP SCH ×4 (09:00→21:19)
[2018-11-11] MEDS: MINERAL OIL/PETROL OINT 396 GM JAR TP SCH ×2 (09:00→21:18)
[2018-11-11] MEDS: VITS A AND D/WHITE PET/LANOLIN 5 GM PACKET TP SCH ×2 (09:00→21:19)
[2018-11-11] MEDS: Z GUARD REMEDY 4 OZ OINT TP SCH ×4 (09:00→21:19)
[2018-11-11] MEDS: NEOMY SULF/BACITRAC ZN/POLY 15 GM TUBE TP SCH ×2 (09:00→21:18)
--- NOTE | 2018-11-11 21:00 | NUR ---
RN NOTES Seen and examined by Gurinder Collier NP with new order for CBC, BMP in am.
[2018-11-11] MEDS: LATANOPROST EYE DROP 0.005% 2.5 ML BOTTLE EACHEYE SCH (21:19)
[2018-11-11] MEDS: ATORVASTATIN 10 MG TABLET GT SCH (21:19)
[2018-11-12] VITALS (8 sets, daily range): BP systolic 112–134; BP diastolic 55–76
[2018-11-12] MEDS: SIMETHICONE SUSP 40 MG/0.6 ML BOTTLE GT SCH ×5 (00:30→23:17)
[2018-11-12] MEDS: BLOOD SUGAR DIAGNOSTIC 1 EACH STRIP IN SCH ×5 (00:30→23:18)
[2018-11-12] MEDS: INSULIN REGULAR, HUMAN 100 UNIT/ML 10 ML VIAL SQ SCH ×5 (00:31→23:20)
[2018-11-12] MEDS: NEPRO 1,000 ML BOTTLE GT PRN (00:32)
[2018-11-12] MEDS: IPRATROPIUM NEB FS 0.5 MG/2.5 ML AMPUL.NEB IH SCH ×4 (01:43→19:26)
[2018-11-12] MEDS: PROSTAT (PYXIS) 30 ML UDC GT SCH ×3 (05:39→20:28)
[2018-11-12] MEDS: FAMOTIDINE (20 MG) 20 MG TABLET GT SCH (05:39)
[2018-11-12] MEDS: METOCLOPRAMIDE HCL 10 MG/2 ML VIAL IV SCH ×3 (06:00→12:29)
[2018-11-12 07:40] LABS: BASOPHILS % (AUTO) 0.4 % (0.0-2.0); EOSINOPHILS % (AUTO) 2.5 % (0.0-6.0); HEMATOCRIT 27 % (39-51); HEMOGLOBIN 8.6 g/dL (13.5-17.5); LYMPHOCYTES # (AUTO) 1.2 /CMM (0.8-4.8); LYMPHOCYTES % (AUTO) 13.9 % (20.0-44.0); MEAN CORPUSCULAR HGB CONC 32 g/dl (31.0-36.0); MEAN CORPUSCULAR VOLUME 97 fL (80-96); MONOCYTES # (AUTO) 0.7 /CMM (0.1-1.30); MONOCYTES % (AUTO) 8.4 % (2.0-12.0); NEUTROPHILS # (AUTO) 6.2 /CMM (1.8-8.9); NEUTROPHILS % (AUTO) 74.8 % (43.0-81.0); PLATELET COUNT (AUTO) 231 /CMM (150-450); WHITE BLOOD COUNT (AUTO) 8.3 K/uL (4.3-11.0)
[2018-11-12 07:49] LABS: CALCIUM, SERUM 8.8 mg/dL (8.5-10.1); CARBON DIOXIDE 31 mmol/L (21-32); CHLORIDE 101 mmol/L (98-107); GLUCOSE 155 mg/dL (74-106); POTASSIUM 3.9 mmol/L (3.5-5.1); SODIUM SERUM 139 mmol/L (136-145)
[2018-11-12 07:50] LABS: CREATININE 2.6 mg/dL (0.6-1.3); UREA NITROGEN, BLOOD 55 mg/dL (7-18)
[2018-11-12 08:13] LABS: BAND % (MANUAL) 8 % (0.0-5.0); EOSINOPHILS % (MANUAL) 3 % (0-4); LYMPHOCYTES % (MANUAL) 15 % (16-48); METAMYELOCYTES % 1 % (0-0); MONOCYTES % (MANUAL) 8 % (0-11.0); MYELOCYTES % 3 % (0-0); NEUTROPHILS % (MANUAL) 62 (42-76)
[2018-11-12] MEDS: DORZOLAMIDE OPTH 2% 10 ML BOTTLE EACHEYE SCH ×3 (08:48→16:55)
[2018-11-12] MEDS: ACIDOPHILUS/BULGARICUS 1 EACH TAB.CHEW GT SCH (08:49)
[2018-11-12] MEDS: POTASSIUM CHLORIDE 20 MEQ POWDER PACKET GT SCH (08:49)
[2018-11-12] MEDS: FINASTERIDE (5 MG) 5 MG TABLET GT SCH (08:49)
[2018-11-12] MEDS: VIT B CMPLX 3/FA/VIT C/BIOTIN 1 TAB TABLET GT SCH (08:49)
[2018-11-12] MEDS: ASCORBIC ACID 500 MG TABLET GT SCH (08:50)
[2018-11-12] MEDS: LACOSAMIDE 50 MG TABLET GT SCH ×2 (08:50→20:28)
[2018-11-12] MEDS: TAMSULOSIN 0.4 MG CAP.SR.24H PO SCH (08:50)
[2018-11-12] MEDS: CHLORHEXIDINE GLUCONATE 15 ML UDC MM SCH ×2 (08:50→20:28)
[2018-11-12] MEDS: LINAGLIPTIN 5 MG TABLET GT SCH (08:50)
[2018-11-12] MEDS: MINERAL OIL/PETROL OINT 396 GM JAR TP SCH ×2 (08:50→20:28)
[2018-11-12] MEDS: BACI/NEOM/POLY B OINT PKT 1 UDPKT PACKET TP SCH ×4 (09:00→20:29)
[2018-11-12] MEDS: Z GUARD REMEDY 4 OZ OINT TP SCH ×4 (09:00→20:29)
[2018-11-12] MEDS: NEOMY SULF/BACITRAC ZN/POLY 15 GM TUBE TP SCH ×2 (09:00→20:29)
[2018-11-12] MEDS: HYDROGEN PEROXIDE 480 ML BOTTLE TP SCH ×2 (09:00→20:28)
[2018-11-12] MEDS: VITS A AND D/WHITE PET/LANOLIN 5 GM PACKET TP SCH ×2 (09:00→20:29)
[2018-11-12] MEDS ORDERED: REGLAN PO SCH (12:00)
[2018-11-12] MEDS ORDERED: METOCLOPRAMIDE HCL 10 MG/10 ML UDC GT PRN (13:00)
[2018-11-12] MEDS ORDERED: METOCLOPRAMIDE HCL 10 MG TABLET GT PRN (13:24)
[2018-11-12] MEDS ORDERED: REGLAN GT SCH (13:59)
[2018-11-12] MEDS: REGLAN GT SCH ×2 (18:54→23:17)
[2018-11-12] MEDS: LATANOPROST EYE DROP 0.005% 2.5 ML BOTTLE EACHEYE SCH (21:41)
[2018-11-12] MEDS: ATORVASTATIN 10 MG TABLET GT SCH (21:41)
[2018-11-13] VITALS (7 sets, daily range): BP systolic 124–156; BP diastolic 70–77
[2018-11-13] MEDS: NEPRO 1,000 ML BOTTLE GT PRN (00:39)
[2018-11-13] MEDS: IPRATROPIUM NEB FS 0.5 MG/2.5 ML AMPUL.NEB IH SCH ×4 (01:50→19:35)
[2018-11-13] MEDS: FAMOTIDINE (20 MG) 20 MG TABLET GT SCH (05:03)
[2018-11-13] MEDS: PROSTAT (PYXIS) 30 ML UDC GT SCH ×3 (05:03→20:56)
[2018-11-13] MEDS: REGLAN GT SCH ×4 (05:03→23:07)
[2018-11-13] MEDS: SIMETHICONE SUSP 40 MG/0.6 ML BOTTLE GT SCH ×4 (05:03→23:07)
[2018-11-13] MEDS: BLOOD SUGAR DIAGNOSTIC 1 EACH STRIP IN SCH ×4 (05:46→23:07)
[2018-11-13] MEDS: INSULIN REGULAR, HUMAN 100 UNIT/ML 10 ML VIAL SQ SCH ×4 (05:47→23:07)
[2018-11-13] MEDS: MINERAL OIL/PETROL OINT 396 GM JAR TP SCH ×2 (09:00→20:57)
[2018-11-13] MEDS: TAMSULOSIN 0.4 MG CAP.SR.24H PO SCH (09:00)
[2018-11-13] MEDS: ASCORBIC ACID 500 MG TABLET GT SCH (09:00)
[2018-11-13] MEDS: DORZOLAMIDE OPTH 2% 10 ML BOTTLE EACHEYE SCH ×3 (09:00→17:00)
[2018-11-13] MEDS: HYDROGEN PEROXIDE 480 ML BOTTLE TP SCH ×2 (09:00→20:57)
[2018-11-13] MEDS: NEOMY SULF/BACITRAC ZN/POLY 15 GM TUBE TP SCH ×2 (09:00→20:57)
[2018-11-13] MEDS: CHLORHEXIDINE GLUCONATE 15 ML UDC MM SCH ×2 (09:00→20:57)
[2018-11-13] MEDS: BACI/NEOM/POLY B OINT PKT 1 UDPKT PACKET TP SCH ×4 (09:00→20:57)
[2018-11-13] MEDS: POTASSIUM CHLORIDE 20 MEQ POWDER PACKET GT SCH (09:00)
[2018-11-13] MEDS: Z GUARD REMEDY 4 OZ OINT TP SCH ×4 (09:00→20:57)
[2018-11-13] MEDS: LINAGLIPTIN 5 MG TABLET GT SCH (09:00)
[2018-11-13] MEDS: VITS A AND D/WHITE PET/LANOLIN 5 GM PACKET TP SCH ×2 (09:00→20:57)
[2018-11-13] MEDS: VIT B CMPLX 3/FA/VIT C/BIOTIN 1 TAB TABLET GT SCH (09:00)
[2018-11-13] MEDS: ACIDOPHILUS/BULGARICUS 1 EACH TAB.CHEW GT SCH (09:00)
[2018-11-13] MEDS: FINASTERIDE (5 MG) 5 MG TABLET GT SCH (09:00)
[2018-11-13] MEDS: LACOSAMIDE 50 MG TABLET GT SCH ×2 (09:00→20:57)
--- NOTE | 2018-11-13 10:30 | NUR ---
RT PT RETURNED TO FACILITY FROM DIALYSIS. PT IS MECHANICALLY VENTILATED VIA SHILEY 6 CUFFED TRACHEOSTOMY TUBE. CUFF INFLATED VIA FOURDRINIER WIRE WEAVER. TRACH TUBE MIDLINE AND SECURE. VENTILATOR SETTINGS PRESCRIBED. ALARMS SET PER PROTOCOL AND AUDIBLE. VENT PLUGGED IN TO RED OUTLET. AMBU BAG AT BED SIDE. NO DISTRESS NOTED AT THIS TIME. WILL CONTINUE TO MONITOR. Addendum: 11/13/18 at 1157 by RAYRAY KRUEGER RT Amended: Links added.
--- NOTE | 2018-11-13 13:10 | NUR ---
Dr Garduno ordered to DC midline. He also ordered to continue Prostat and start Neutraphos 1 packet GT daily per recommendation from [facility].
--- NOTE | 2018-11-13 18:34 | NUR ---
Midline on ANSHU removed as ordered. Tip intact, minimal bleeding noted. Pt tolerated removal well, no s/s of pain noted. Pt's son at bedside.
[2018-11-13] MEDS: LATANOPROST EYE DROP 0.005% 2.5 ML BOTTLE EACHEYE SCH (22:11)
[2018-11-13] MEDS: ATORVASTATIN 10 MG TABLET GT SCH (22:11)
[2018-11-14] MEDS: NEPRO 1,000 ML BOTTLE GT PRN ×2 (00:57→22:14)
[2018-11-14 01:00] VITALS: BP 125/68
[2018-11-14] MEDS: IPRATROPIUM NEB FS 0.5 MG/2.5 ML AMPUL.NEB IH SCH ×4 (01:29→19:49)
[2018-11-14 05:20] VITALS: BP 128/72
[2018-11-14] MEDS: FAMOTIDINE (20 MG) 20 MG TABLET GT SCH (05:24)
[2018-11-14] MEDS: PROSTAT (PYXIS) 30 ML UDC GT SCH ×3 (05:24→20:51)
[2018-11-14] MEDS: REGLAN GT SCH ×4 (05:24→23:15)
[2018-11-14] MEDS: SIMETHICONE SUSP 40 MG/0.6 ML BOTTLE GT SCH ×4 (05:24→23:15)
[2018-11-14] MEDS: BLOOD SUGAR DIAGNOSTIC 1 EACH STRIP IN SCH ×4 (06:17→23:15)
[2018-11-14] MEDS: INSULIN REGULAR, HUMAN 100 UNIT/ML 10 ML VIAL SQ SCH ×4 (06:17→23:16)
--- NOTE | 2018-11-14 07:13 | NUR ---
RT Pt received trach on the vent with noted settings. Pt is awake and responds to stimuli when sx'd. Vent alarms are set and audible with BVM by bedside. AS400 CONSULTANT cuff pressure noted. Vent is plugged into red outlet. No respiratory distress noted at this time. Addendum: 11/14/18 at 1054 by MARCELO KENNEDY RT Amended: Links added.
[2018-11-14 07:55] VITALS: BP 128/75
[2018-11-14] MEDS: NEUTRA PHOS 1 POWD.PACKET PO SCH (09:00)
[2018-11-14] MEDS: BACI/NEOM/POLY B OINT PKT 1 UDPKT PACKET TP SCH ×4 (09:00→20:52)
[2018-11-14] MEDS: VITS A AND D/WHITE PET/LANOLIN 5 GM PACKET TP SCH ×2 (09:00→20:52)
[2018-11-14] MEDS: MINERAL OIL/PETROL OINT 396 GM JAR TP SCH ×2 (09:00→20:51)
[2018-11-14] MEDS: NEOMY SULF/BACITRAC ZN/POLY 15 GM TUBE TP SCH ×2 (09:00→20:52)
[2018-11-14] MEDS: Z GUARD REMEDY 4 OZ OINT TP SCH ×4 (09:00→20:52)
[2018-11-14] MEDS: HYDROGEN PEROXIDE 480 ML BOTTLE TP SCH ×2 (09:00→20:51)
[2018-11-14] MEDS: LINAGLIPTIN 5 MG TABLET GT SCH (09:26)
[2018-11-14] MEDS: FINASTERIDE (5 MG) 5 MG TABLET GT SCH (09:26)
[2018-11-14] MEDS: ACIDOPHILUS/BULGARICUS 1 EACH TAB.CHEW GT SCH (09:26)
[2018-11-14] MEDS: DORZOLAMIDE OPTH 2% 10 ML BOTTLE EACHEYE SCH ×3 (09:26→17:08)
[2018-11-14] MEDS: LACOSAMIDE 50 MG TABLET GT SCH ×2 (09:26→20:51)
[2018-11-14] MEDS: POTASSIUM CHLORIDE 20 MEQ POWDER PACKET GT SCH (09:26)
[2018-11-14] MEDS: ASCORBIC ACID 500 MG TABLET GT SCH (09:26)
[2018-11-14] MEDS: CHLORHEXIDINE GLUCONATE 15 ML UDC MM SCH ×2 (09:27→20:51)
[2018-11-14] MEDS: TAMSULOSIN 0.4 MG CAP.SR.24H PO SCH (09:27)
[2018-11-14] MEDS: VIT B CMPLX 3/FA/VIT C/BIOTIN 1 TAB TABLET GT SCH (09:32)
[2018-11-14 18:35] VITALS: BP 128/75
[2018-11-14 19:52] VITALS: BP 149/87
[2018-11-14 21:19] VITALS: BP 140/80
[2018-11-14] MEDS: ATORVASTATIN 10 MG TABLET GT SCH (21:47)
[2018-11-14] MEDS: LATANOPROST EYE DROP 0.005% 2.5 ML BOTTLE EACHEYE SCH (21:47)
[2018-11-15 01:00] VITALS: BP 132/76
[2018-11-15] MEDS: IPRATROPIUM NEB FS 0.5 MG/2.5 ML AMPUL.NEB IH SCH ×4 (02:05→20:19)
--- NOTE | 2018-11-15 04:42 | NUR ---
RT Pt remains on [facility] vent t/o the night. svn given inline. Addendum: 11/15/18 at 0443 by TORSTEN BHATT RT Amended: Links added.
[2018-11-15 05:12] VITALS: BP 118/68
[2018-11-15] MEDS: PROSTAT (PYXIS) 30 ML UDC GT SCH ×3 (05:21→20:41)
[2018-11-15] MEDS: BLOOD SUGAR DIAGNOSTIC 1 EACH STRIP IN SCH ×4 (05:21→23:35)
[2018-11-15] MEDS: REGLAN GT SCH ×4 (05:21→23:35)
[2018-11-15] MEDS: SIMETHICONE SUSP 40 MG/0.6 ML BOTTLE GT SCH ×4 (05:21→23:35)
[2018-11-15] MEDS: FAMOTIDINE (20 MG) 20 MG TABLET GT SCH (05:21)
[2018-11-15] MEDS: INSULIN REGULAR, HUMAN 100 UNIT/ML 10 ML VIAL SQ SCH ×4 (05:22→23:36)
[2018-11-15] MEDS: ASCORBIC ACID 500 MG TABLET GT SCH (09:00)
[2018-11-15] MEDS: POTASSIUM CHLORIDE 20 MEQ POWDER PACKET GT SCH (09:00)
[2018-11-15] MEDS: LACOSAMIDE 50 MG TABLET GT SCH ×2 (09:00→20:41)
[2018-11-15] MEDS: ACIDOPHILUS/BULGARICUS 1 EACH TAB.CHEW GT SCH (09:00)
[2018-11-15] MEDS: FINASTERIDE (5 MG) 5 MG TABLET GT SCH (09:00)
[2018-11-15] MEDS: TAMSULOSIN 0.4 MG CAP.SR.24H PO SCH (09:00)
[2018-11-15] MEDS: CHLORHEXIDINE GLUCONATE 15 ML UDC MM SCH ×2 (09:00→20:41)
[2018-11-15] MEDS: NEUTRA PHOS 1 POWD.PACKET PO SCH (09:00)
[2018-11-15] MEDS: DORZOLAMIDE OPTH 2% 10 ML BOTTLE EACHEYE SCH ×3 (09:00→16:51)
[2018-11-15] MEDS: LINAGLIPTIN 5 MG TABLET GT SCH (09:00)
[2018-11-15] MEDS: VIT B CMPLX 3/FA/VIT C/BIOTIN 1 TAB TABLET GT SCH (09:00)
[2018-11-15] MEDS: NEOMY SULF/BACITRAC ZN/POLY 15 GM TUBE TP SCH ×2 (10:00→20:42)
[2018-11-15] MEDS: Z GUARD REMEDY 4 OZ OINT TP SCH ×3 (10:00→20:42)
[2018-11-15] MEDS: VITS A AND D/WHITE PET/LANOLIN 5 GM PACKET TP SCH ×2 (15:00→20:42)
[2018-11-15] MEDS: HYDROGEN PEROXIDE 480 ML BOTTLE TP SCH ×2 (15:00→20:42)
[2018-11-15] MEDS: BACI/NEOM/POLY B OINT PKT 1 UDPKT PACKET TP SCH ×2 (15:00)
[2018-11-15] MEDS: MINERAL OIL/PETROL OINT 396 GM JAR TP SCH ×2 (15:00→20:41)
[2018-11-15 18:32] VITALS: BP 135/72
[2018-11-15 20:02] VITALS: BP 118/63
--- NOTE | 2018-11-15 21:25 | NUR ---
PATIENT RECEIVED TRACHED ON MECHANICAL VENTILATION. CUFF CHECKED VIA PROFESSOR OF [employer]IN [employer] STUDIES. AMBU BAG/BACK UP TRACH @ BEDSIDE. VENT PLUGGED INTO RED OUTLET. TX GIVEN, NO ADVERSE REACTIONS NOTED. SX DONE, MODERATE THICK YELLOW/WHITE SECRETIONS NOTED. ALARMS ON AND AUDIBLE. NO DISTRESS NOTED. WILL MONITOR T/O SHIFT. Addendum: 11/15/18 at 2125 by GINGER YOU RT Amended: Links added.
[2018-11-15] MEDS: ATORVASTATIN 10 MG TABLET GT SCH (21:26)
[2018-11-15] MEDS: LATANOPROST EYE DROP 0.005% 2.5 ML BOTTLE EACHEYE SCH (21:26)
[2018-11-15 22:17] VITALS: BP 118/63
[2018-11-16] VITALS (8 sets, daily range): BP systolic 118–131; BP diastolic 56–72
[2018-11-16] MEDS: IPRATROPIUM NEB FS 0.5 MG/2.5 ML AMPUL.NEB IH SCH ×4 (01:43→19:50)
[2018-11-16] MEDS: PROSTAT (PYXIS) 30 ML UDC GT SCH ×3 (05:36→20:37)
[2018-11-16] MEDS: BLOOD SUGAR DIAGNOSTIC 1 EACH STRIP IN SCH ×3 (05:36→17:44)
[2018-11-16] MEDS: REGLAN GT SCH ×3 (05:36→17:22)
[2018-11-16] MEDS: SIMETHICONE SUSP 40 MG/0.6 ML BOTTLE GT SCH ×3 (05:36→17:22)
[2018-11-16] MEDS: FAMOTIDINE (20 MG) 20 MG TABLET GT SCH (05:36)
[2018-11-16] MEDS: INSULIN REGULAR, HUMAN 100 UNIT/ML 10 ML VIAL SQ SCH ×3 (05:37→17:45)
[2018-11-16] MEDS: NEPRO 1,000 ML BOTTLE GT PRN (05:49)
[2018-11-16] MEDS: LINAGLIPTIN 5 MG TABLET GT SCH (08:45)
[2018-11-16] MEDS: FINASTERIDE (5 MG) 5 MG TABLET GT SCH (08:45)
[2018-11-16] MEDS: LACOSAMIDE 50 MG TABLET GT SCH ×2 (08:45→20:37)
[2018-11-16] MEDS: VIT B CMPLX 3/FA/VIT C/BIOTIN 1 TAB TABLET GT SCH (08:45)
[2018-11-16] MEDS: POTASSIUM CHLORIDE 20 MEQ POWDER PACKET GT SCH (08:45)
[2018-11-16] MEDS: DORZOLAMIDE OPTH 2% 10 ML BOTTLE EACHEYE SCH ×3 (08:45→17:22)
[2018-11-16] MEDS: ASCORBIC ACID 500 MG TABLET GT SCH (08:45)
[2018-11-16] MEDS: ACIDOPHILUS/BULGARICUS 1 EACH TAB.CHEW GT SCH (08:45)
[2018-11-16] MEDS: CHLORHEXIDINE GLUCONATE 15 ML UDC MM SCH ×2 (08:45→20:37)
[2018-11-16] MEDS: TAMSULOSIN 0.4 MG CAP.SR.24H PO SCH (08:45)
[2018-11-16] MEDS: HYDROGEN PEROXIDE 480 ML BOTTLE TP SCH ×2 (09:00→20:37)
[2018-11-16] MEDS: MINERAL OIL/PETROL OINT 396 GM JAR TP SCH ×2 (09:00→20:37)
[2018-11-16] MEDS: Z GUARD REMEDY 4 OZ OINT TP SCH ×2 (09:00→20:37)
[2018-11-16] MEDS: VITS A AND D/WHITE PET/LANOLIN 5 GM PACKET TP SCH ×2 (09:00→20:37)
[2018-11-16] MEDS: NEOMY SULF/BACITRAC ZN/POLY 15 GM TUBE TP SCH ×2 (09:00→20:37)
[2018-11-16] MEDS: NEUTRA PHOS 1 POWD.PACKET PO SCH (11:00)
[2018-11-16] MEDS: ATORVASTATIN 10 MG TABLET GT SCH (21:16)
[2018-11-16] MEDS: LATANOPROST EYE DROP 0.005% 2.5 ML BOTTLE EACHEYE SCH (21:16)
[2018-11-17] VITALS (8 sets, daily range): BP systolic 115–135; BP diastolic 56–77
[2018-11-17] MEDS: BLOOD SUGAR DIAGNOSTIC 1 EACH STRIP IN SCH ×5 (00:08→23:30)
[2018-11-17] MEDS: SIMETHICONE SUSP 40 MG/0.6 ML BOTTLE GT SCH ×5 (00:08→23:30)
[2018-11-17] MEDS: REGLAN GT SCH ×5 (00:08→23:30)
[2018-11-17] MEDS: INSULIN REGULAR, HUMAN 100 UNIT/ML 10 ML VIAL SQ SCH ×5 (00:09→23:31)
[2018-11-17] MEDS: NEPRO 1,000 ML BOTTLE GT PRN (00:09)
[2018-11-17] MEDS: IPRATROPIUM NEB FS 0.5 MG/2.5 ML AMPUL.NEB IH SCH ×4 (01:34→19:40)
[2018-11-17] MEDS: FAMOTIDINE (20 MG) 20 MG TABLET GT SCH (05:22)
[2018-11-17] MEDS: PROSTAT (PYXIS) 30 ML UDC GT SCH ×3 (05:22→20:11)
--- NOTE | 2018-11-17 06:00 | NUR ---
Resident awake and calm completed and tolerated am care; went out for dialysis at [facility]. Stable vital signs. Appears comfortable. Trach secured and intact, on mechanical vent. No signs of resp distress. All emergency equipment taken/ambu- bag and back up trach w/ pt. Jeremiah cath on left chest intact, with dry/clean dressing.[facility] Portable suction machine and mechanical vent used by pt.
[2018-11-17] MEDS: DORZOLAMIDE OPTH 2% 10 ML BOTTLE EACHEYE SCH ×3 (09:00→17:35)
[2018-11-17] MEDS: VIT B CMPLX 3/FA/VIT C/BIOTIN 1 TAB TABLET GT SCH (09:00)
[2018-11-17] MEDS: LACOSAMIDE 50 MG TABLET GT SCH ×2 (09:00→18:50)
[2018-11-17] MEDS: CHLORHEXIDINE GLUCONATE 15 ML UDC MM SCH ×2 (09:00→20:11)
[2018-11-17] MEDS: NEUTRA PHOS 1 POWD.PACKET PO SCH (09:00)
[2018-11-17] MEDS: POTASSIUM CHLORIDE 20 MEQ POWDER PACKET GT SCH (09:00)
[2018-11-17] MEDS: ASCORBIC ACID 500 MG TABLET GT SCH (09:00)
[2018-11-17] MEDS: ACIDOPHILUS/BULGARICUS 1 EACH TAB.CHEW GT SCH (09:00)
[2018-11-17] MEDS: LINAGLIPTIN 5 MG TABLET GT SCH (09:00)
[2018-11-17] MEDS: TAMSULOSIN 0.4 MG CAP.SR.24H PO SCH (09:00)
[2018-11-17] MEDS: FINASTERIDE (5 MG) 5 MG TABLET GT SCH (09:00)
--- NOTE | 2018-11-17 10:15 | NUR ---
Resident returned from S/P hemodialyis treatment, no s/s of any complications noted. Resident in stable condition. no respiratory distress noted. Left upper chest HD catheter intact, no bleeding, covered with dressing, clean and dry. afebrile.
[2018-11-17] MEDS: NEOMY SULF/BACITRAC ZN/POLY 15 GM TUBE TP SCH ×2 (10:30→20:11)
[2018-11-17] MEDS: Z GUARD REMEDY 4 OZ OINT TP SCH ×2 (10:30→20:11)
[2018-11-17] MEDS: HYDROGEN PEROXIDE 480 ML BOTTLE TP SCH ×2 (10:30→20:11)
[2018-11-17] MEDS: VITS A AND D/WHITE PET/LANOLIN 5 GM PACKET TP SCH ×2 (10:30→20:11)
[2018-11-17] MEDS: MINERAL OIL/PETROL OINT 396 GM JAR TP SCH ×2 (10:30→20:11)
[2018-11-17] MEDS: ATORVASTATIN 10 MG TABLET GT SCH (21:14)
[2018-11-17] MEDS: LATANOPROST EYE DROP 0.005% 2.5 ML BOTTLE EACHEYE SCH (21:14)
[2018-11-18] VITALS (8 sets, daily range): BP systolic 117–129; BP diastolic 58–86
[2018-11-18] MEDS: NEPRO 1,000 ML BOTTLE GT PRN ×2 (01:02→21:18)
[2018-11-18] MEDS: IPRATROPIUM NEB FS 0.5 MG/2.5 ML AMPUL.NEB IH SCH ×4 (01:36→19:08)
[2018-11-18] MEDS: FAMOTIDINE (20 MG) 20 MG TABLET GT SCH (05:36)
[2018-11-18] MEDS: REGLAN GT SCH ×4 (05:36→23:59)
[2018-11-18] MEDS: SIMETHICONE SUSP 40 MG/0.6 ML BOTTLE GT SCH ×4 (05:36→23:59)
[2018-11-18] MEDS: LACOSAMIDE 50 MG TABLET GT SCH ×2 (05:36→18:51)
[2018-11-18] MEDS: PROSTAT (PYXIS) 30 ML UDC GT SCH ×3 (05:36→21:17)
[2018-11-18] MEDS: BLOOD SUGAR DIAGNOSTIC 1 EACH STRIP IN SCH ×4 (05:36→23:59)
[2018-11-18] MEDS: INSULIN REGULAR, HUMAN 100 UNIT/ML 10 ML VIAL SQ SCH ×3 (05:37→18:00)
[2018-11-18] MEDS: VIT B CMPLX 3/FA/VIT C/BIOTIN 1 TAB TABLET GT SCH (09:31)
[2018-11-18] MEDS: POTASSIUM CHLORIDE 20 MEQ POWDER PACKET GT SCH (09:31)
[2018-11-18] MEDS: ASCORBIC ACID 500 MG TABLET GT SCH (09:31)
[2018-11-18] MEDS: LINAGLIPTIN 5 MG TABLET GT SCH (09:31)
[2018-11-18] MEDS: MINERAL OIL/PETROL OINT 396 GM JAR TP SCH ×2 (09:31→21:17)
[2018-11-18] MEDS: ACIDOPHILUS/BULGARICUS 1 EACH TAB.CHEW GT SCH (09:31)
[2018-11-18] MEDS: DORZOLAMIDE OPTH 2% 10 ML BOTTLE EACHEYE SCH ×3 (09:31→17:29)
[2018-11-18] MEDS: FINASTERIDE (5 MG) 5 MG TABLET GT SCH (09:31)
[2018-11-18] MEDS: NEUTRA PHOS 1 POWD.PACKET PO SCH (09:31)
[2018-11-18] MEDS: TAMSULOSIN 0.4 MG CAP.SR.24H PO SCH (09:31)
[2018-11-18] MEDS: CHLORHEXIDINE GLUCONATE 15 ML UDC MM SCH ×2 (09:31→21:17)
[2018-11-18] MEDS: NEOMY SULF/BACITRAC ZN/POLY 15 GM TUBE TP SCH ×2 (09:31→21:17)
[2018-11-18] MEDS: HYDROGEN PEROXIDE 480 ML BOTTLE TP SCH ×2 (09:31→21:17)
[2018-11-18] MEDS: VITS A AND D/WHITE PET/LANOLIN 5 GM PACKET TP SCH ×2 (09:32→21:17)
[2018-11-18] MEDS: Z GUARD REMEDY 4 OZ OINT TP SCH ×2 (09:32→21:17)
[2018-11-18] MEDS ORDERED: LACOSAMIDE 50 MG TABLET GT SCH (18:00)
--- NOTE | 2018-11-18 18:52 | NUR ---
vimpat 100 mg F/C for seizure given via GT as ordered.
[2018-11-18] MEDS: LATANOPROST EYE DROP 0.005% 2.5 ML BOTTLE EACHEYE SCH (21:17)
[2018-11-18] MEDS: ATORVASTATIN 10 MG TABLET GT SCH (21:17)
[2018-11-19] VITALS (7 sets, daily range): BP systolic 122–149; BP diastolic 58–94
[2018-11-19] MEDS: IPRATROPIUM NEB FS 0.5 MG/2.5 ML AMPUL.NEB IH SCH ×4 (00:48→19:26)
[2018-11-19] MEDS: PROSTAT (PYXIS) 30 ML UDC GT SCH ×3 (05:00→20:46)
[2018-11-19] MEDS: BLOOD SUGAR DIAGNOSTIC 1 EACH STRIP IN SCH ×3 (06:20→17:02)
[2018-11-19] MEDS: REGLAN GT SCH ×3 (06:20→17:02)
[2018-11-19] MEDS: FAMOTIDINE (20 MG) 20 MG TABLET GT SCH (06:20)
[2018-11-19] MEDS: SIMETHICONE SUSP 40 MG/0.6 ML BOTTLE GT SCH ×3 (06:20→17:02)
[2018-11-19] MEDS: LACOSAMIDE 50 MG TABLET GT SCH ×2 (06:20→17:02)
[2018-11-19] MEDS: INSULIN REGULAR, HUMAN 100 UNIT/ML 10 ML VIAL SQ SCH ×4 (06:22→17:05)
[2018-11-19] MEDS: hydrALAZINE HCL 25 MG TABLET GT PRN (06:23)
[2018-11-19] MEDS: ACETAMINOPHEN 650 MG/SUPP.RECT RC PRN (07:08)
[2018-11-19] MEDS: ACETAMINOPHEN 650 MG/20.3 ML UDC GT PRN ×2 (07:08→13:57)
[2018-11-19] MEDS: HYDROGEN PEROXIDE 480 ML BOTTLE TP SCH ×2 (09:00→20:46)
[2018-11-19] MEDS: VITS A AND D/WHITE PET/LANOLIN 5 GM PACKET TP SCH ×2 (09:00→20:46)
[2018-11-19] MEDS: Z GUARD REMEDY 4 OZ OINT TP SCH ×2 (09:00→20:46)
[2018-11-19] MEDS: MINERAL OIL/PETROL OINT 396 GM JAR TP SCH ×2 (09:00→20:46)
[2018-11-19] MEDS: NEOMY SULF/BACITRAC ZN/POLY 15 GM TUBE TP SCH ×2 (09:00→20:46)
[2018-11-19] MEDS: DORZOLAMIDE OPTH 2% 10 ML BOTTLE EACHEYE SCH ×3 (09:56→16:51)
[2018-11-19] MEDS: POTASSIUM CHLORIDE 20 MEQ POWDER PACKET GT SCH (09:56)
[2018-11-19] MEDS: ASCORBIC ACID 500 MG TABLET GT SCH (09:57)
[2018-11-19] MEDS: VIT B CMPLX 3/FA/VIT C/BIOTIN 1 TAB TABLET GT SCH (09:57)
[2018-11-19] MEDS: NEUTRA PHOS 1 POWD.PACKET PO SCH (09:57)
[2018-11-19] MEDS: CHLORHEXIDINE GLUCONATE 15 ML UDC MM SCH ×2 (09:57→20:46)
[2018-11-19] MEDS: ACIDOPHILUS/BULGARICUS 1 EACH TAB.CHEW GT SCH (09:57)
[2018-11-19] MEDS: TAMSULOSIN 0.4 MG CAP.SR.24H PO SCH (09:57)
[2018-11-19] MEDS: LINAGLIPTIN 5 MG TABLET GT SCH (09:57)
[2018-11-19] MEDS: FINASTERIDE (5 MG) 5 MG TABLET GT SCH (09:57)
--- NOTE | 2018-11-19 13:00 | NUR ---
Seen and examined by BRANDO Pineda, no new order given.
--- NOTE | 2018-11-19 14:35 | NUR ---
SW communicated patient's son about IDT mtg on 11/23/2018 and dentist inessa on 11/26
[2018-11-19] MEDS: LATANOPROST EYE DROP 0.005% 2.5 ML BOTTLE EACHEYE SCH (21:12)
[2018-11-19] MEDS: ATORVASTATIN 10 MG TABLET GT SCH (21:13)
[2018-11-20] VITALS (8 sets, daily range): BP systolic 118–142; BP diastolic 48–94
[2018-11-20] MEDS: SIMETHICONE SUSP 40 MG/0.6 ML BOTTLE GT SCH ×5 (00:18→23:37)
[2018-11-20] MEDS: REGLAN GT SCH ×5 (00:20→23:37)
[2018-11-20] MEDS: BLOOD SUGAR DIAGNOSTIC 1 EACH STRIP IN SCH ×5 (00:30→23:37)
[2018-11-20] MEDS: INSULIN REGULAR, HUMAN 100 UNIT/ML 10 ML VIAL SQ SCH ×5 (00:31→23:38)
[2018-11-20] MEDS: IPRATROPIUM NEB FS 0.5 MG/2.5 ML AMPUL.NEB IH SCH ×4 (01:27→19:42)
[2018-11-20] MEDS: NEPRO 1,000 ML BOTTLE GT PRN ×2 (04:18→23:56)
[2018-11-20] MEDS: PROSTAT (PYXIS) 30 ML UDC GT SCH ×3 (05:03→20:26)
[2018-11-20] MEDS: RANITIDINE GT SCH (05:06)
[2018-11-20] MEDS: LACOSAMIDE 50 MG TABLET GT SCH ×2 (05:13→17:02)
--- NOTE | 2018-11-20 05:22 | NUR ---
rn notes patient will be leaving to dialysis, no insulin given due to fasting while at dialysis.
--- NOTE | 2018-11-20 06:10 | NUR ---
daniel notes patient left in stable condition to dialysis awake alert eyes open vs wnl, respirations even and unlabored 138/82,98.8,99,100%,14 Addendum: 11/20/18 at 0645 by MADDISON CHAMBERS RN dina Mtz
[2018-11-20] MEDS: CHLORHEXIDINE GLUCONATE 15 ML UDC MM SCH ×2 (09:00→20:26)
[2018-11-20] MEDS: FINASTERIDE (5 MG) 5 MG TABLET GT SCH (09:00)
[2018-11-20] MEDS: LINAGLIPTIN 5 MG TABLET GT SCH (09:00)
[2018-11-20] MEDS: NEUTRA PHOS 1 POWD.PACKET PO SCH (09:00)
[2018-11-20] MEDS: VIT B CMPLX 3/FA/VIT C/BIOTIN 1 TAB TABLET GT SCH (09:00)
[2018-11-20] MEDS: POTASSIUM CHLORIDE 20 MEQ POWDER PACKET GT SCH (09:00)
[2018-11-20] MEDS: DORZOLAMIDE OPTH 2% 10 ML BOTTLE EACHEYE SCH ×3 (09:00→17:02)
[2018-11-20] MEDS: TAMSULOSIN 0.4 MG CAP.SR.24H PO SCH (09:00)
[2018-11-20] MEDS: ACIDOPHILUS/BULGARICUS 1 EACH TAB.CHEW GT SCH (09:00)
[2018-11-20] MEDS: ASCORBIC ACID 500 MG TABLET GT SCH (09:00)
--- NOTE | 2018-11-20 10:55 | NUR ---
Resident returned from S/P hemodialyis treatment in stable condition. Accompanied by @ EMT's and 1 RT. LT upper chest HD catheter intact, no bleeding noted. Covered with dressing, clean and dry. V/S as follows: 98.4, 95, 15,118/58, 0/10.
[2018-11-20] MEDS: VITS A AND D/WHITE PET/LANOLIN 5 GM PACKET TP SCH ×2 (11:10→20:28)
[2018-11-20] MEDS: MINERAL OIL/PETROL OINT 396 GM JAR TP SCH ×2 (11:10→20:27)
[2018-11-20] MEDS: NEOMY SULF/BACITRAC ZN/POLY 15 GM TUBE TP SCH ×2 (11:10→20:27)
[2018-11-20] MEDS: Z GUARD REMEDY 4 OZ OINT TP SCH ×2 (11:10→20:28)
[2018-11-20] MEDS: HYDROGEN PEROXIDE 480 ML BOTTLE TP SCH ×2 (11:10→20:27)
--- NOTE | 2018-11-20 19:50 | NUR ---
PATIENT RECEIVED TRACHED ON MECHANICAL VENTILATION. CUFF CHECKED VIA SUPERVISOR TUMBLERS. AMBU BAG/BACK UP TRACH @ BEDSIDE. VENT PLUGGED INTO RED OUTLET. TX GIVEN, NO ADVERSE REACTIONS NOTED. SX DONE, MODERATE THICK WHITE SECRETIONS NOTED. ALARMS ON AND AUDIBLE. NO DISTRESS NOTED. WILL MONITOR T/O SHIFT. Addendum: 11/20/18 at 1950 by POPEYE BROWN RT Amended: Links added.
[2018-11-20] MEDS: ATORVASTATIN 10 MG TABLET GT SCH (21:46)
[2018-11-20] MEDS: LATANOPROST EYE DROP 0.005% 2.5 ML BOTTLE EACHEYE SCH (21:46)
[2018-11-21] VITALS (8 sets, daily range): BP systolic 126–138; BP diastolic 60–87
[2018-11-21] MEDS: IPRATROPIUM NEB FS 0.5 MG/2.5 ML AMPUL.NEB IH SCH ×4 (02:20→20:05)
[2018-11-21] MEDS: SIMETHICONE SUSP 40 MG/0.6 ML BOTTLE GT SCH ×4 (05:29→23:13)
[2018-11-21] MEDS: PROSTAT (PYXIS) 30 ML UDC GT SCH ×3 (05:29→20:41)
[2018-11-21] MEDS: RANITIDINE GT SCH (05:29)
[2018-11-21] MEDS: LACOSAMIDE 50 MG TABLET GT SCH ×2 (05:29→17:50)
[2018-11-21] MEDS: REGLAN GT SCH ×4 (05:29→23:13)
[2018-11-21] MEDS: BLOOD SUGAR DIAGNOSTIC 1 EACH STRIP IN SCH ×4 (06:13→23:13)
[2018-11-21] MEDS: INSULIN REGULAR, HUMAN 100 UNIT/ML 10 ML VIAL SQ SCH ×4 (06:14→23:14)
[2018-11-21] MEDS: Z GUARD REMEDY 4 OZ OINT TP SCH ×2 (09:00→20:42)
[2018-11-21] MEDS: NEOMY SULF/BACITRAC ZN/POLY 15 GM TUBE TP SCH ×2 (09:00→20:42)
[2018-11-21] MEDS: HYDROGEN PEROXIDE 480 ML BOTTLE TP SCH ×2 (09:00→20:42)
[2018-11-21] MEDS: VITS A AND D/WHITE PET/LANOLIN 5 GM PACKET TP SCH ×2 (09:00→20:42)
--- NOTE | 2018-11-21 09:09 | NUR ---
CHANI called Dr. Sharma and spoke with Mystery about patient's son (Dr. Johns). Dr. Johns would like to meet with Dr. Sharma on november 26 at 9 AM. Mystery confirmed the inessa time.
[2018-11-21] MEDS: POTASSIUM CHLORIDE 20 MEQ POWDER PACKET GT SCH (09:30)
[2018-11-21] MEDS: DORZOLAMIDE OPTH 2% 10 ML BOTTLE EACHEYE SCH ×3 (09:30→17:48)
[2018-11-21] MEDS: NEUTRA PHOS 1 POWD.PACKET PO SCH (09:30)
[2018-11-21] MEDS: MINERAL OIL/PETROL OINT 396 GM JAR TP SCH ×2 (09:30→20:42)
[2018-11-21] MEDS: LINAGLIPTIN 5 MG TABLET GT SCH (09:30)
[2018-11-21] MEDS: FINASTERIDE (5 MG) 5 MG TABLET GT SCH (09:30)
[2018-11-21] MEDS: ASCORBIC ACID 500 MG TABLET GT SCH (09:30)
[2018-11-21] MEDS: CHLORHEXIDINE GLUCONATE 15 ML UDC MM SCH ×2 (09:30→20:41)
[2018-11-21] MEDS: ACIDOPHILUS/BULGARICUS 1 EACH TAB.CHEW GT SCH (09:30)
[2018-11-21] MEDS: TAMSULOSIN 0.4 MG CAP.SR.24H PO SCH (09:30)
[2018-11-21] MEDS: VIT B CMPLX 3/FA/VIT C/BIOTIN 1 TAB TABLET GT SCH (09:30)
--- NOTE | 2018-11-21 20:43 | NUR ---
PT RCVD TRACH'D ON MECHANICAL WITH CHARTED SETTINGS. TX GIVEN AND NO ADVERSE REACTION NOTED. SX DONE. PT TRACH PATENT AND SECURE. VENT PLUGGED INTO RED OUTLET. ALARMS ARE SET AND AUDIBLE. AMBU BAG AT BEDSIDE. WILL CONTINUE TO MONITOR. Addendum: 11/21/18 at 2042 by TITO GARCES RT Amended: Links added.
[2018-11-21] MEDS: ATORVASTATIN 10 MG TABLET GT SCH (22:07)
[2018-11-21] MEDS: LATANOPROST EYE DROP 0.005% 2.5 ML BOTTLE EACHEYE SCH (22:07)
[2018-11-21] MEDS: NEPRO 1,000 ML BOTTLE GT PRN (23:14)
[2018-11-22 01:20] VITALS: BP 130/62
[2018-11-22] MEDS: IPRATROPIUM NEB FS 0.5 MG/2.5 ML AMPUL.NEB IH SCH ×4 (02:05→20:33)
[2018-11-22 05:12] VITALS: BP 136/72
[2018-11-22] MEDS: PROSTAT (PYXIS) 30 ML UDC GT SCH ×3 (05:17→21:50)
[2018-11-22] MEDS: RANITIDINE GT SCH (05:17)
[2018-11-22] MEDS: LACOSAMIDE 50 MG TABLET GT SCH ×2 (05:17→17:25)
[2018-11-22] MEDS: BLOOD SUGAR DIAGNOSTIC 1 EACH STRIP IN SCH ×4 (05:17→23:37)
[2018-11-22] MEDS: REGLAN GT SCH ×4 (05:17→23:37)
[2018-11-22] MEDS: SIMETHICONE SUSP 40 MG/0.6 ML BOTTLE GT SCH ×4 (05:17→23:37)
[2018-11-22] MEDS: INSULIN REGULAR, HUMAN 100 UNIT/ML 10 ML VIAL SQ SCH ×4 (05:18→23:38)
[2018-11-22] MEDS: CHLORHEXIDINE GLUCONATE 15 ML UDC MM SCH ×2 (09:00→21:50)
[2018-11-22] MEDS: VITS A AND D/WHITE PET/LANOLIN 5 GM PACKET TP SCH ×2 (09:00→21:50)
[2018-11-22] MEDS: Z GUARD REMEDY 4 OZ OINT TP SCH ×2 (09:00→21:50)
[2018-11-22] MEDS: FINASTERIDE (5 MG) 5 MG TABLET GT SCH (09:00)
[2018-11-22] MEDS: HYDROGEN PEROXIDE 480 ML BOTTLE TP SCH ×2 (09:00→21:50)
[2018-11-22] MEDS: ASCORBIC ACID 500 MG TABLET GT SCH (09:00)
[2018-11-22] MEDS: DORZOLAMIDE OPTH 2% 10 ML BOTTLE EACHEYE SCH ×3 (09:00→17:24)
[2018-11-22] MEDS: NEOMY SULF/BACITRAC ZN/POLY 15 GM TUBE TP SCH ×2 (09:00→21:50)
[2018-11-22] MEDS: ACIDOPHILUS/BULGARICUS 1 EACH TAB.CHEW GT SCH (09:00)
[2018-11-22] MEDS: TAMSULOSIN 0.4 MG CAP.SR.24H PO SCH (09:00)
[2018-11-22] MEDS: VIT B CMPLX 3/FA/VIT C/BIOTIN 1 TAB TABLET GT SCH (09:00)
[2018-11-22] MEDS: LINAGLIPTIN 5 MG TABLET GT SCH (09:00)
[2018-11-22] MEDS: POTASSIUM CHLORIDE 20 MEQ POWDER PACKET GT SCH (09:00)
[2018-11-22] MEDS: NEUTRA PHOS 1 POWD.PACKET PO SCH (09:00)
[2018-11-22] MEDS: MINERAL OIL/PETROL OINT 396 GM JAR TP SCH ×2 (09:00→21:50)
[2018-11-22 11:46] VITALS: BP 130/70
[2018-11-22 13:00] VITALS: BP 134/75
[2018-11-22 17:00] VITALS: BP 138/74
--- NOTE | 2018-11-22 20:33 | NUR ---
RT NOTE PATIENT RECEIVED TRACH'D ON MECHANICAL VENT. PATIENT IS TOLERATING CURRENT ORDERED VENT SETTINGS WITHOUT RESPIRATORY DISTRESS. TRACH IS PATENT AND SECURE. ALARMS ARE SET AND AUDIBLE. MECHANICAL VENT IS PLUGGED INTO RED OUTLET. EMERGENCY EQUIPMENT IS AT PATIENT BEDSIDE. WILL CONTINUE TO MONITOR. Addendum: 11/22/18 at 2116 by RUSLAN CAMP RT Amended: Links added.
[2018-11-22 21:00] VITALS: BP 137/70
[2018-11-22] MEDS: ATORVASTATIN 10 MG TABLET GT SCH (21:50)
[2018-11-22] MEDS: LATANOPROST EYE DROP 0.005% 2.5 ML BOTTLE EACHEYE SCH (21:50)
[2018-11-23] VITALS (9 sets, daily range): BP systolic 136–145; BP diastolic 59–79
[2018-11-23] MEDS: IPRATROPIUM NEB FS 0.5 MG/2.5 ML AMPUL.NEB IH SCH ×4 (02:01→20:08)
[2018-11-23] MEDS: PROSTAT (PYXIS) 30 ML UDC GT SCH ×3 (05:43→21:28)
[2018-11-23] MEDS: LACOSAMIDE 50 MG TABLET GT SCH ×2 (05:43→17:24)
[2018-11-23] MEDS: REGLAN GT SCH ×3 (05:43→17:24)
[2018-11-23] MEDS: BLOOD SUGAR DIAGNOSTIC 1 EACH STRIP IN SCH ×3 (05:43→17:24)
[2018-11-23] MEDS: RANITIDINE GT SCH (05:43)
[2018-11-23] MEDS: SIMETHICONE SUSP 40 MG/0.6 ML BOTTLE GT SCH ×3 (05:43→17:24)
[2018-11-23] MEDS: INSULIN REGULAR, HUMAN 100 UNIT/ML 10 ML VIAL SQ SCH ×3 (05:44→17:28)
[2018-11-23] MEDS: VITS A AND D/WHITE PET/LANOLIN 5 GM PACKET TP SCH ×2 (09:00→21:29)
[2018-11-23] MEDS: NEOMY SULF/BACITRAC ZN/POLY 15 GM TUBE TP SCH ×2 (09:00→21:29)
[2018-11-23] MEDS: MINERAL OIL/PETROL OINT 396 GM JAR TP SCH ×2 (09:00→21:28)
[2018-11-23] MEDS: HYDROGEN PEROXIDE 480 ML BOTTLE TP SCH ×2 (09:00→21:28)
[2018-11-23] MEDS: Z GUARD REMEDY 4 OZ OINT TP SCH ×2 (09:00→21:29)
[2018-11-23] MEDS: TAMSULOSIN 0.4 MG CAP.SR.24H PO SCH (09:28)
[2018-11-23] MEDS: POTASSIUM CHLORIDE 20 MEQ POWDER PACKET GT SCH (09:28)
[2018-11-23] MEDS: FINASTERIDE (5 MG) 5 MG TABLET GT SCH (09:28)
[2018-11-23] MEDS: DORZOLAMIDE OPTH 2% 10 ML BOTTLE EACHEYE SCH ×3 (09:28→17:24)
[2018-11-23] MEDS: VIT B CMPLX 3/FA/VIT C/BIOTIN 1 TAB TABLET GT SCH (09:28)
[2018-11-23] MEDS: ACIDOPHILUS/BULGARICUS 1 EACH TAB.CHEW GT SCH (09:28)
[2018-11-23] MEDS: ASCORBIC ACID 500 MG TABLET GT SCH (09:28)
[2018-11-23] MEDS: LINAGLIPTIN 5 MG TABLET GT SCH (09:28)
[2018-11-23] MEDS: CHLORHEXIDINE GLUCONATE 15 ML UDC MM SCH ×2 (09:28→21:28)
--- NOTE | 2018-11-23 15:00 | NUR ---
INTERDISCIPLINARY TEAM CONFERENCE (IDT) was held today. Resident's son, Dr. Johns attended today's IDT meeting via phone conference. Dr. Ramírez and the interdisciplinary team reviewed the current plan of care in detail. Orders as well as treatment and medications were reviewed. Resident's son three items of concern. First he wants to know if and when patient will be weaned off ventilator. Dr. Ramírez gave an order to start weaning him on Monday, Secondly he wants to know whether patient should go back to his beta blockers which was discontinued by Dr. Calvert in the past due to episode of bradycardia, and lastly, he wants to know if the patient is getting enough calories considering that he is off feeding while on dialysis day. [employer] Driver mentioned that patient is getting total of 2100 kcal. daily from feeding formula =1800 kcal and Prostat.
--- NOTE | 2018-11-23 16:00 | NUR ---
Spoke with Kath from [facility] regarding recommendation from pharmacy to get a Phosphorus level because patient is getting daily Neutra Phos. According to Kath they will draw lab on and will evaluate the level and will send recommendation after she evaluate patient's result.
[2018-11-23] MEDS: NEPRO 1,000 ML BOTTLE GT PRN (19:11)
[2018-11-23] MEDS: ATORVASTATIN 10 MG TABLET GT SCH (21:29)
[2018-11-23] MEDS: LATANOPROST EYE DROP 0.005% 2.5 ML BOTTLE EACHEYE SCH (21:29)
[2018-11-24] MEDS: SIMETHICONE SUSP 40 MG/0.6 ML BOTTLE GT SCH ×4 (00:05→17:17)
[2018-11-24] MEDS: REGLAN GT SCH ×4 (00:05→17:17)
[2018-11-24] MEDS: BLOOD SUGAR DIAGNOSTIC 1 EACH STRIP IN SCH ×4 (00:05→17:19)
[2018-11-24] MEDS: INSULIN REGULAR, HUMAN 100 UNIT/ML 10 ML VIAL SQ SCH ×4 (00:07→17:21)
[2018-11-24] MEDS: IPRATROPIUM NEB FS 0.5 MG/2.5 ML AMPUL.NEB IH SCH ×4 (00:59→19:46)
[2018-11-24 01:01] VITALS: BP 128/64
[2018-11-24] MEDS: PROSTAT (PYXIS) 30 ML UDC GT SCH ×3 (05:14→21:36)
[2018-11-24] MEDS: RANITIDINE GT SCH (05:14)
[2018-11-24] MEDS: LACOSAMIDE 50 MG TABLET GT SCH ×2 (05:14→17:17)
[2018-11-24 05:17] VITALS: BP 139/78
--- NOTE | 2018-11-24 06:30 | NUR ---
Resident awake and calm completed and tolerated am care; went out for dialysis at [facility]. Stable vital signs. Appears comfortable. Trach secured and intact, on mechanical vent. No signs of resp distress. All emergency equipment taken/ambu- bag and back up trach w/ pt. Jeremiah cath on left chest intact, with dry/clean dressing.
[2018-11-24] MEDS: POTASSIUM CHLORIDE 20 MEQ POWDER PACKET GT SCH (09:00)
[2018-11-24] MEDS: TAMSULOSIN 0.4 MG CAP.SR.24H PO SCH (09:00)
[2018-11-24] MEDS: NEUTRA PHOS 1 POWD.PACKET GT SCH (09:00)
[2018-11-24] MEDS: ASCORBIC ACID 500 MG TABLET GT SCH (09:00)
[2018-11-24] MEDS: FINASTERIDE (5 MG) 5 MG TABLET GT SCH (09:00)
[2018-11-24] MEDS: ACIDOPHILUS/BULGARICUS 1 EACH TAB.CHEW GT SCH (09:00)
[2018-11-24] MEDS: VIT B CMPLX 3/FA/VIT C/BIOTIN 1 TAB TABLET GT SCH (09:00)
[2018-11-24] MEDS: LINAGLIPTIN 5 MG TABLET GT SCH (09:00)
[2018-11-24] MEDS: MINERAL OIL/PETROL OINT 396 GM JAR TP SCH ×2 (09:00→21:36)
[2018-11-24] MEDS: DORZOLAMIDE OPTH 2% 10 ML BOTTLE EACHEYE SCH ×3 (09:00→16:43)
[2018-11-24] MEDS: CHLORHEXIDINE GLUCONATE 15 ML UDC MM SCH ×2 (09:00→21:36)
[2018-11-24] MEDS: NEOMY SULF/BACITRAC ZN/POLY 15 GM TUBE TP SCH ×2 (11:20→21:36)
[2018-11-24] MEDS: HYDROGEN PEROXIDE 480 ML BOTTLE TP SCH ×2 (11:20→21:36)
[2018-11-24] MEDS: VITS A AND D/WHITE PET/LANOLIN 5 GM PACKET TP SCH ×2 (11:20→21:36)
[2018-11-24] MEDS: Z GUARD REMEDY 4 OZ OINT TP SCH ×2 (11:20→21:36)
[2018-11-24 12:00] VITALS: BP 126/73
--- NOTE | 2018-11-24 15:30 | NUR ---
Endorsed to inform Dr. Garduno regarding son's concern regarding HR trending in the low 80's to mid 90's. He is concern if beta blockers should be resume or to keep it off.
[2018-11-24 18:00] VITALS: BP 133/81
[2018-11-24 20:11] VITALS: BP 127/79
[2018-11-24 21:15] VITALS: BP 127/79
[2018-11-24] MEDS: LATANOPROST EYE DROP 0.005% 2.5 ML BOTTLE EACHEYE SCH (21:36)
[2018-11-24] MEDS: ATORVASTATIN 10 MG TABLET GT SCH (21:36)
[2018-11-24] MEDS: NEPRO 1,000 ML BOTTLE GT PRN (21:37)
--- NOTE | 2018-11-24 22:43 | NUR ---
RT NOTE PT RECEIVED ON [facility] VENT ON THE FOLLOWING NOTED SETTINGS. NO RESP DISTRESS OR SOB NOTED. PT SX'D. BREATHING TX GIVEN, NO ADVERSE REACTIONS NOTED AT THIS TIME. VENT PLUGGED INTO RED OUTLET. ALARMS ARE ON AND AUDIBLE. AMBU BAG AND SPARE TRACH ARE AT BEDSIDE. WILL CONT TO MONITOR PT. Addendum: 11/24/18 at 2243 by NEAL HERNANDEZ RT Amended: Links added.
[2018-11-25] VITALS (7 sets, daily range): BP systolic 129–137; BP diastolic 60–91
[2018-11-25] MEDS: BLOOD SUGAR DIAGNOSTIC 1 EACH STRIP IN SCH ×4 (00:25→18:03)
[2018-11-25] MEDS: SIMETHICONE SUSP 40 MG/0.6 ML BOTTLE GT SCH ×4 (00:25→17:52)
[2018-11-25] MEDS: REGLAN GT SCH ×4 (00:25→17:52)
[2018-11-25] MEDS: INSULIN REGULAR, HUMAN 100 UNIT/ML 10 ML VIAL SQ SCH ×4 (00:26→18:06)
[2018-11-25] MEDS: IPRATROPIUM NEB FS 0.5 MG/2.5 ML AMPUL.NEB IH SCH ×4 (00:59→19:45)
[2018-11-25] MEDS: RANITIDINE GT SCH (05:41)
[2018-11-25] MEDS: PROSTAT (PYXIS) 30 ML UDC GT SCH ×3 (05:41→20:24)
[2018-11-25] MEDS: LACOSAMIDE 50 MG TABLET GT SCH ×2 (05:41→17:52)
[2018-11-25] MEDS: NEOMY SULF/BACITRAC ZN/POLY 15 GM TUBE TP SCH ×2 (09:00→20:27)
[2018-11-25] MEDS: VITS A AND D/WHITE PET/LANOLIN 5 GM PACKET TP SCH ×2 (09:00→20:32)
[2018-11-25] MEDS: MINERAL OIL/PETROL OINT 396 GM JAR TP SCH ×2 (09:00→20:27)
[2018-11-25] MEDS: HYDROGEN PEROXIDE 480 ML BOTTLE TP SCH ×2 (09:00→20:27)
[2018-11-25] MEDS: Z GUARD REMEDY 4 OZ OINT TP SCH ×2 (09:00→20:27)
[2018-11-25] MEDS: ASCORBIC ACID 500 MG TABLET GT SCH (09:24)
[2018-11-25] MEDS: VIT B CMPLX 3/FA/VIT C/BIOTIN 1 TAB TABLET GT SCH (09:24)
[2018-11-25] MEDS: CHLORHEXIDINE GLUCONATE 15 ML UDC MM SCH ×2 (09:24→20:24)
[2018-11-25] MEDS: TAMSULOSIN 0.4 MG CAP.SR.24H PO SCH (09:24)
[2018-11-25] MEDS: LINAGLIPTIN 5 MG TABLET GT SCH (09:24)
[2018-11-25] MEDS: FINASTERIDE (5 MG) 5 MG TABLET GT SCH (09:24)
[2018-11-25] MEDS: NEUTRA PHOS 1 POWD.PACKET GT SCH (09:24)
[2018-11-25] MEDS: DORZOLAMIDE OPTH 2% 10 ML BOTTLE EACHEYE SCH ×3 (09:24→17:11)
[2018-11-25] MEDS: POTASSIUM CHLORIDE 20 MEQ POWDER PACKET GT SCH (09:24)
[2018-11-25] MEDS: ACIDOPHILUS/BULGARICUS 1 EACH TAB.CHEW GT SCH (09:24)
[2018-11-25] MEDS: NEPRO 1,000 ML BOTTLE GT PRN (17:54)
[2018-11-25] MEDS: LATANOPROST EYE DROP 0.005% 2.5 ML BOTTLE EACHEYE SCH (22:00)
[2018-11-25] MEDS: ATORVASTATIN 10 MG TABLET GT SCH (22:00)
[2018-11-26] VITALS (8 sets, daily range): BP systolic 122–144; BP diastolic 67–84
[2018-11-26] MEDS: SIMETHICONE SUSP 40 MG/0.6 ML BOTTLE GT SCH ×4 (00:32→17:48)
[2018-11-26] MEDS: BLOOD SUGAR DIAGNOSTIC 1 EACH STRIP IN SCH ×4 (00:32→17:48)
[2018-11-26] MEDS: REGLAN GT SCH ×4 (00:32→17:48)
[2018-11-26] MEDS: INSULIN REGULAR, HUMAN 100 UNIT/ML 10 ML VIAL SQ SCH ×4 (00:33→17:50)
[2018-11-26] MEDS: IPRATROPIUM NEB FS 0.5 MG/2.5 ML AMPUL.NEB IH SCH ×4 (01:37→19:40)
[2018-11-26] MEDS: PROSTAT (PYXIS) 30 ML UDC GT SCH ×3 (05:55→20:37)
[2018-11-26] MEDS: RANITIDINE GT SCH (05:58)
[2018-11-26] MEDS: LACOSAMIDE 50 MG TABLET GT SCH ×2 (05:59→17:48)
--- NOTE | 2018-11-26 07:51 | NUR ---
placed pt on cpap per md order. will obtain abg post 2 hr of vent change. will monitor. propellant charge loader notified.
[2018-11-26] MEDS: POTASSIUM CHLORIDE 20 MEQ POWDER PACKET GT SCH (08:45)
[2018-11-26] MEDS: DORZOLAMIDE OPTH 2% 10 ML BOTTLE EACHEYE SCH ×3 (08:45→17:48)
[2018-11-26] MEDS: LINAGLIPTIN 5 MG TABLET GT SCH (08:46)
[2018-11-26] MEDS: ACIDOPHILUS/BULGARICUS 1 EACH TAB.CHEW GT SCH (08:46)
[2018-11-26] MEDS: NEUTRA PHOS 1 POWD.PACKET GT SCH (08:46)
[2018-11-26] MEDS: VIT B CMPLX 3/FA/VIT C/BIOTIN 1 TAB TABLET GT SCH (08:46)
[2018-11-26] MEDS: CHLORHEXIDINE GLUCONATE 15 ML UDC MM SCH ×2 (08:46→20:37)
[2018-11-26] MEDS: ASCORBIC ACID 500 MG TABLET GT SCH (08:46)
[2018-11-26] MEDS: TAMSULOSIN 0.4 MG CAP.SR.24H PO SCH (08:46)
[2018-11-26] MEDS: FINASTERIDE (5 MG) 5 MG TABLET GT SCH (08:46)
[2018-11-26] MEDS: MINERAL OIL/PETROL OINT 396 GM JAR TP SCH ×2 (09:00→20:37)
[2018-11-26] MEDS: HYDROGEN PEROXIDE 480 ML BOTTLE TP SCH ×2 (09:00→20:37)
[2018-11-26] MEDS: Z GUARD REMEDY 4 OZ OINT TP SCH ×2 (09:00→20:37)
[2018-11-26] MEDS: VITS A AND D/WHITE PET/LANOLIN 5 GM PACKET TP SCH ×2 (09:00→20:37)
[2018-11-26] MEDS: NEOMY SULF/BACITRAC ZN/POLY 15 GM TUBE TP SCH ×2 (09:00→20:37)
--- NOTE | 2018-11-26 10:05 | NUR ---
abg done and results given to dr maldonado. per keep pt on cpap. charge entry specialist notified.
[2018-11-26 10:06] LABS: ABG BASE EXCESS 3.9 mmol/L; ABG OXYGEN SATURATION 98.8 % (92.0-98.5); ABG PCO2 42.3 mmHg (35.0-45.0); ABG PH 7.445 (7.350-7.450); ABG PO2 141.8 mmHg (75.0-100.0); AaDO2 94.8 mmHg; MetHb 0.8 % (0.0-1.5); SITE, ABG Right Radial
--- NOTE | 2018-11-26 11:50 | NUR ---
Pt was placed on CPAP PS 15 PEEP +5 FiO2 40%. ABG result was relayed by RT Rubio to Dr Ramírez. He ordered to continue CPAP as tolerated.
--- NOTE | 2018-11-26 13:45 | NUR ---
Pat. had his teeth cleaned by Dr. Sharma today
[2018-11-26] MEDS: NEPRO 1,000 ML BOTTLE GT PRN (16:17)
[2018-11-26] MEDS: LATANOPROST EYE DROP 0.005% 2.5 ML BOTTLE EACHEYE SCH (21:41)
[2018-11-26] MEDS: ATORVASTATIN 10 MG TABLET GT SCH (21:41)
[2018-11-27] MEDS: REGLAN GT SCH ×4 (00:37→17:04)
[2018-11-27] MEDS: SIMETHICONE SUSP 40 MG/0.6 ML BOTTLE GT SCH ×4 (00:38→17:04)
[2018-11-27] MEDS: BLOOD SUGAR DIAGNOSTIC 1 EACH STRIP IN SCH ×4 (00:38→17:20)
[2018-11-27] MEDS: INSULIN REGULAR, HUMAN 100 UNIT/ML 10 ML VIAL SQ SCH ×4 (00:39→17:22)
[2018-11-27] MEDS: IPRATROPIUM NEB FS 0.5 MG/2.5 ML AMPUL.NEB IH SCH ×4 (01:18→19:41)
[2018-11-27 01:43] VITALS: BP 136/73
[2018-11-27] MEDS: PROSTAT (PYXIS) 30 ML UDC GT SCH ×3 (05:21→20:03)
[2018-11-27] MEDS: RANITIDINE GT SCH (05:21)
[2018-11-27] MEDS: LACOSAMIDE 50 MG TABLET GT SCH ×2 (05:21→17:04)
[2018-11-27 06:06] VITALS: BP 132/71
[2018-11-27] MEDS: LINAGLIPTIN 5 MG TABLET GT SCH (09:00)
[2018-11-27] MEDS: HYDROGEN PEROXIDE 480 ML BOTTLE TP SCH ×2 (09:00→20:03)
[2018-11-27] MEDS: Z GUARD REMEDY 4 OZ OINT TP SCH ×2 (09:00→20:04)
[2018-11-27] MEDS: ASCORBIC ACID 500 MG TABLET GT SCH (09:00)
[2018-11-27] MEDS: ACIDOPHILUS/BULGARICUS 1 EACH TAB.CHEW GT SCH (09:00)
[2018-11-27] MEDS: DORZOLAMIDE OPTH 2% 10 ML BOTTLE EACHEYE SCH ×3 (09:00→17:04)
[2018-11-27] MEDS: FINASTERIDE (5 MG) 5 MG TABLET GT SCH (09:00)
[2018-11-27] MEDS: VITS A AND D/WHITE PET/LANOLIN 5 GM PACKET TP SCH ×2 (09:00→20:04)
[2018-11-27] MEDS: MINERAL OIL/PETROL OINT 396 GM JAR TP SCH ×2 (09:00→20:03)
[2018-11-27] MEDS: NEOMY SULF/BACITRAC ZN/POLY 15 GM TUBE TP SCH ×2 (09:00→20:04)
[2018-11-27] MEDS: TAMSULOSIN 0.4 MG CAP.SR.24H PO SCH (09:00)
[2018-11-27] MEDS: POTASSIUM CHLORIDE 20 MEQ POWDER PACKET GT SCH (09:00)
[2018-11-27] MEDS: VIT B CMPLX 3/FA/VIT C/BIOTIN 1 TAB TABLET GT SCH (09:00)
[2018-11-27] MEDS: NEUTRA PHOS 1 POWD.PACKET GT SCH (09:00)
[2018-11-27] MEDS: CHLORHEXIDINE GLUCONATE 15 ML UDC MM SCH ×2 (09:00→20:03)
--- NOTE | 2018-11-27 10:38 | NUR ---
PT PLACED ON 28% C/A @ 5LPM AFTER ARRIVING FROM DIALYSIS RUN. PT SEEMS CALM & COMFORTABLE. SPARE TRACH AND BAG VALVE MASK AT HEAD OF BED. SPO2 100% HR 92. PT SX Q2 + PRN FOR MOD AMOUNT OF SECRETIONS. NO S/S OF SOB NOTED. WILL CONT TO MONITOR PT Addendum: 11/27/18 at 1041 by JENNI MONTERO RT Amended: Links added.
[2018-11-27 14:46] VITALS: BP 102/64
--- NOTE | 2018-11-27 17:09 | NUR ---
@1600 -PATIENT'S MONTHLY TRACH CHANGE DONE AT THIS TIME. PATIENT TOLERATED WELL. MINIMAL BLEEDING SUBSIDED. NO REDNESS NOTED. BAG VALVE MASK AND SPARE TRACH AT HEAD OF BED. BILATERAL CHEST RISE AND BS OBSERVED. PT SUCTIONED AFTER TO CHECK PATENCY. CHARGE NURSE AWARE. WILL CONT TO MONITOR. Addendum: 11/27/18 at 1710 by JENNI MONTERO RT Amended: Links added.
[2018-11-27] MEDS: NEPRO 1,000 ML BOTTLE GT PRN (17:25)
[2018-11-27 17:48] VITALS: BP 135/79
[2018-11-27 20:01] VITALS: BP 126/70
[2018-11-27 21:02] VITALS: BP 126/70
[2018-11-27] MEDS: ATORVASTATIN 10 MG TABLET GT SCH (21:42)
[2018-11-27] MEDS: LATANOPROST EYE DROP 0.005% 2.5 ML BOTTLE EACHEYE SCH (21:42)
[2018-11-28] VITALS (7 sets, daily range): BP systolic 128–145; BP diastolic 69–86
[2018-11-28] MEDS: SIMETHICONE SUSP 40 MG/0.6 ML BOTTLE GT SCH ×5 (00:18→23:35)
[2018-11-28] MEDS: REGLAN GT SCH ×5 (00:18→23:35)
[2018-11-28] MEDS: BLOOD SUGAR DIAGNOSTIC 1 EACH STRIP IN SCH ×5 (00:18→23:35)
[2018-11-28] MEDS: INSULIN REGULAR, HUMAN 100 UNIT/ML 10 ML VIAL SQ SCH ×5 (00:20→23:36)
[2018-11-28] MEDS: IPRATROPIUM NEB FS 0.5 MG/2.5 ML AMPUL.NEB IH SCH ×4 (01:46→19:35)
[2018-11-28] MEDS: PROSTAT (PYXIS) 30 ML UDC GT SCH ×3 (05:37→21:25)
[2018-11-28] MEDS: RANITIDINE GT SCH (05:38)
[2018-11-28] MEDS: LACOSAMIDE 50 MG TABLET GT SCH ×2 (05:38→17:04)
[2018-11-28] MEDS: VIT B CMPLX 3/FA/VIT C/BIOTIN 1 TAB TABLET GT SCH (08:54)
[2018-11-28] MEDS: DORZOLAMIDE OPTH 2% 10 ML BOTTLE EACHEYE SCH ×3 (08:54→17:04)
[2018-11-28] MEDS: POTASSIUM CHLORIDE 20 MEQ POWDER PACKET GT SCH (08:54)
[2018-11-28] MEDS: ACIDOPHILUS/BULGARICUS 1 EACH TAB.CHEW GT SCH (08:54)
[2018-11-28] MEDS: LINAGLIPTIN 5 MG TABLET GT SCH (08:55)
[2018-11-28] MEDS: FINASTERIDE (5 MG) 5 MG TABLET GT SCH (08:55)
[2018-11-28] MEDS: CHLORHEXIDINE GLUCONATE 15 ML UDC MM SCH ×2 (08:55→21:25)
[2018-11-28] MEDS: ASCORBIC ACID 500 MG TABLET GT SCH (08:55)
[2018-11-28] MEDS: TAMSULOSIN 0.4 MG CAP.SR.24H PO SCH (08:55)
[2018-11-28] MEDS: NEUTRA PHOS 1 POWD.PACKET GT SCH (08:55)
[2018-11-28] MEDS: MINERAL OIL/PETROL OINT 396 GM JAR TP SCH ×2 (09:00→21:25)
[2018-11-28] MEDS: HYDROGEN PEROXIDE 480 ML BOTTLE TP SCH ×2 (09:00→21:25)
[2018-11-28] MEDS: VITS A AND D/WHITE PET/LANOLIN 5 GM PACKET TP SCH ×2 (09:00→21:26)
[2018-11-28] MEDS: NEOMY SULF/BACITRAC ZN/POLY 15 GM TUBE TP SCH ×2 (09:00→21:25)
[2018-11-28] MEDS: Z GUARD REMEDY 4 OZ OINT TP SCH ×2 (09:00→21:25)
[2018-11-28] MEDS: NEPRO 1,000 ML BOTTLE GT PRN (14:54)
[2018-11-28] MEDS: LATANOPROST EYE DROP 0.005% 2.5 ML BOTTLE EACHEYE SCH (21:26)
[2018-11-28] MEDS: ATORVASTATIN 10 MG TABLET GT SCH (21:26)
[2018-11-29] VITALS (7 sets, daily range): BP systolic 115–140; BP diastolic 60–75
[2018-11-29] MEDS: IPRATROPIUM NEB FS 0.5 MG/2.5 ML AMPUL.NEB IH SCH ×4 (02:29→20:05)
[2018-11-29] MEDS: PROSTAT (PYXIS) 30 ML UDC GT SCH ×3 (05:22→21:25)
[2018-11-29] MEDS: BLOOD SUGAR DIAGNOSTIC 1 EACH STRIP IN SCH ×4 (05:22→23:56)
[2018-11-29] MEDS: RANITIDINE GT SCH (05:22)
[2018-11-29] MEDS: SIMETHICONE SUSP 40 MG/0.6 ML BOTTLE GT SCH ×4 (05:22→23:56)
[2018-11-29] MEDS: REGLAN GT SCH ×4 (05:22→23:56)
[2018-11-29] MEDS: LACOSAMIDE 50 MG TABLET GT SCH ×2 (05:22→17:20)
[2018-11-29] MEDS: INSULIN REGULAR, HUMAN 100 UNIT/ML 10 ML VIAL SQ SCH ×4 (05:23→23:59)
--- NOTE | 2018-11-29 06:35 | NUR ---
pt went out for dialysis at [facility]. pt awake, calm and comfortable. Stable vital signs. Trach secured and intact, on cool aerosol at 40% fio2. No signs of resp distress. All emergency equipment taken/ambu- bag and back up trach w/ pt. Jeremiah cath on left chest intact, with dry/clean dressing.
[2018-11-29] MEDS: MINERAL OIL/PETROL OINT 396 GM JAR TP SCH ×2 (09:00→21:25)
[2018-11-29] MEDS: NEOMY SULF/BACITRAC ZN/POLY 15 GM TUBE TP SCH ×2 (09:00→21:25)
[2018-11-29] MEDS: ASCORBIC ACID 500 MG TABLET GT SCH (09:00)
[2018-11-29] MEDS: LINAGLIPTIN 5 MG TABLET GT SCH (09:00)
[2018-11-29] MEDS: NEUTRA PHOS 1 POWD.PACKET GT SCH (09:00)
[2018-11-29] MEDS: POTASSIUM CHLORIDE 20 MEQ POWDER PACKET GT SCH (09:00)
[2018-11-29] MEDS: VITS A AND D/WHITE PET/LANOLIN 5 GM PACKET TP SCH ×2 (09:00→21:26)
[2018-11-29] MEDS: Z GUARD REMEDY 4 OZ OINT TP SCH ×2 (09:00→21:26)
[2018-11-29] MEDS: DORZOLAMIDE OPTH 2% 10 ML BOTTLE EACHEYE SCH ×3 (09:00→17:18)
[2018-11-29] MEDS: HYDROGEN PEROXIDE 480 ML BOTTLE TP SCH ×2 (09:00→21:25)
[2018-11-29] MEDS: TAMSULOSIN 0.4 MG CAP.SR.24H PO SCH (09:00)
[2018-11-29] MEDS: CHLORHEXIDINE GLUCONATE 15 ML UDC MM SCH ×2 (09:00→21:25)
[2018-11-29] MEDS: FINASTERIDE (5 MG) 5 MG TABLET GT SCH (09:00)
[2018-11-29] MEDS: VIT B CMPLX 3/FA/VIT C/BIOTIN 1 TAB TABLET GT SCH (09:00)
[2018-11-29] MEDS: ACIDOPHILUS/BULGARICUS 1 EACH TAB.CHEW GT SCH (09:00)
--- NOTE | 2018-11-29 09:55 | NUR ---
RT NOTE PT IS AT DIALYSIS. BREATHING TX NOT GIVEN ON TIME BECAUSE OF RAPID RESPONSE THAT WAS CALLED IN [facility]\.
--- NOTE | 2018-11-29 11:28 | NUR ---
Pt returned from dialysis and placed on Cool aerosol 40% per MD order.
[2018-11-29] MEDS: NEPRO 1,000 ML BOTTLE GT PRN (17:42)
[2018-11-29] MEDS: LATANOPROST EYE DROP 0.005% 2.5 ML BOTTLE EACHEYE SCH (21:26)
[2018-11-29] MEDS: ATORVASTATIN 10 MG TABLET GT SCH (21:26)
[2018-11-29] MEDS: ACETAMINOPHEN 650 MG/20.3 ML UDC GT PRN (21:28)
[2018-11-30] VITALS (8 sets, daily range): BP systolic 120–142; BP diastolic 53–75
[2018-11-30] MEDS: IPRATROPIUM NEB FS 0.5 MG/2.5 ML AMPUL.NEB IH SCH ×4 (01:11→19:52)
[2018-11-30] MEDS: PROSTAT (PYXIS) 30 ML UDC GT SCH ×3 (05:45→21:55)
[2018-11-30] MEDS: LACOSAMIDE 50 MG TABLET GT SCH ×2 (05:45→17:19)
[2018-11-30] MEDS: SIMETHICONE SUSP 40 MG/0.6 ML BOTTLE GT SCH ×4 (05:45→23:55)
[2018-11-30] MEDS: REGLAN GT SCH ×4 (05:45→23:55)
[2018-11-30] MEDS: RANITIDINE GT SCH (05:45)
[2018-11-30] MEDS: BLOOD SUGAR DIAGNOSTIC 1 EACH STRIP IN SCH ×3 (06:28→18:16)
[2018-11-30] MEDS: INSULIN REGULAR, HUMAN 100 UNIT/ML 10 ML VIAL SQ SCH ×3 (06:29→18:17)
[2018-11-30] MEDS: DORZOLAMIDE OPTH 2% 10 ML BOTTLE EACHEYE SCH ×3 (09:37→17:19)
[2018-11-30] MEDS: MINERAL OIL/PETROL OINT 396 GM JAR TP SCH ×2 (09:37→21:55)
[2018-11-30] MEDS: NEOMY SULF/BACITRAC ZN/POLY 15 GM TUBE TP SCH ×2 (09:37→21:56)
[2018-11-30] MEDS: POTASSIUM CHLORIDE 20 MEQ POWDER PACKET GT SCH (09:37)
[2018-11-30] MEDS: CHLORHEXIDINE GLUCONATE 15 ML UDC MM SCH ×2 (09:37→21:55)
[2018-11-30] MEDS: NEUTRA PHOS 1 POWD.PACKET GT SCH (09:37)
[2018-11-30] MEDS: Z GUARD REMEDY 4 OZ OINT TP SCH ×2 (09:37→21:56)
[2018-11-30] MEDS: HYDROGEN PEROXIDE 480 ML BOTTLE TP SCH ×2 (09:37→21:56)
[2018-11-30] MEDS: TAMSULOSIN 0.4 MG CAP.SR.24H PO SCH (09:37)
[2018-11-30] MEDS: ASCORBIC ACID 500 MG TABLET GT SCH (09:37)
[2018-11-30] MEDS: FINASTERIDE (5 MG) 5 MG TABLET GT SCH (09:37)
[2018-11-30] MEDS: VITS A AND D/WHITE PET/LANOLIN 5 GM PACKET TP SCH ×2 (09:37→21:56)
[2018-11-30] MEDS: ACIDOPHILUS/BULGARICUS 1 EACH TAB.CHEW GT SCH (09:37)
[2018-11-30] MEDS: LINAGLIPTIN 5 MG TABLET GT SCH (09:37)
[2018-11-30] MEDS: VIT B CMPLX 3/FA/VIT C/BIOTIN 1 TAB TABLET GT SCH (09:37)
--- NOTE | 2018-11-30 09:40 | NUR ---
Dr. Garduno seen and examined resident, made aware of 12.8 lbs weight loss . Patient on hemodialysis 3x/week and is no longer edematous, no new order given.
--- NOTE | 2018-11-30 12:24 | NUR ---
Seen by Dr. Dotson, he trimmed patient's toenails, L great toenail medial nail border with slight bleeding noted, new order to apply Betadine x 2 days. Order carried out.
--- NOTE | 2018-11-30 14:23 | NUR ---
RT NOTE PT MECHANICALLY VENTILATED VIA CUFFED TRACHEOSTOMY TUBE. CUFF INFLATED. TRACH TUBE MIDLINE AND SECURE. VENTILATOR SETTINGS PRESCRIBED. ALARMS SET PER PROTOCOL AND AUDIBLE. VENT PLUGGED IN TO RED OUTLET. AMBU BAG AT BED SIDE. NO DISTRESS NOTED. Addendum: 11/30/18 at 1423 by CARINA SUAREZ RT Amended: Links added.
[2018-11-30] MEDS: NEPRO 1,000 ML BOTTLE GT PRN (15:30)
[2018-11-30] MEDS: LATANOPROST EYE DROP 0.005% 2.5 ML BOTTLE EACHEYE SCH (21:56)
[2018-11-30] MEDS: ATORVASTATIN 10 MG TABLET GT SCH (21:56)
[2018-12-01] VITALS (7 sets, daily range): BP systolic 117–151; BP diastolic 55–84
[2018-12-01] MEDS: BLOOD SUGAR DIAGNOSTIC 1 EACH STRIP IN SCH ×5 (00:55→23:37)
[2018-12-01] MEDS: INSULIN REGULAR, HUMAN 100 UNIT/ML 10 ML VIAL SQ SCH ×5 (00:55→23:37)
[2018-12-01] MEDS: IPRATROPIUM NEB FS 0.5 MG/2.5 ML AMPUL.NEB IH SCH ×4 (01:51→19:54)
[2018-12-01] MEDS: RANITIDINE GT SCH (05:23)
[2018-12-01] MEDS: LACOSAMIDE 50 MG TABLET GT SCH ×2 (05:23→17:27)
[2018-12-01] MEDS: PROSTAT (PYXIS) 30 ML UDC GT SCH ×3 (05:23→21:56)
[2018-12-01] MEDS: SIMETHICONE SUSP 40 MG/0.6 ML BOTTLE GT SCH ×4 (05:23→23:37)
[2018-12-01] MEDS: REGLAN GT SCH ×4 (05:23→23:36)
--- NOTE | 2018-12-01 06:04 | NUR ---
Resident awake and calm; went out for dialysis at [facility] per [facility]. Stable vital signs. Appears comfortable. Trach secured and intact. on aerosol at 40% fio2. No signs of resp distress. All emergency equipment taken/ambu- bag and back up trach w/ pt. Jeremiah cath on left chest intact, with dry/clean dressing.
--- NOTE | 2018-12-01 07:57 | NUR ---
RT HHN TX NOT GIVEN AT THIS TIME, PT IS OUT FOR DIALYSIS.
[2018-12-01] MEDS: POTASSIUM CHLORIDE 20 MEQ POWDER PACKET GT SCH (09:00)
[2018-12-01] MEDS: CHLORHEXIDINE GLUCONATE 15 ML UDC MM SCH ×2 (09:00→21:56)
[2018-12-01] MEDS: VIT B CMPLX 3/FA/VIT C/BIOTIN 1 TAB TABLET GT SCH (09:00)
[2018-12-01] MEDS: DORZOLAMIDE OPTH 2% 10 ML BOTTLE EACHEYE SCH ×3 (09:00→17:27)
[2018-12-01] MEDS: NEUTRA PHOS 1 POWD.PACKET GT SCH (09:00)
[2018-12-01] MEDS: ASCORBIC ACID 500 MG TABLET GT SCH (09:00)
[2018-12-01] MEDS: ACIDOPHILUS/BULGARICUS 1 EACH TAB.CHEW GT SCH (09:00)
[2018-12-01] MEDS: FINASTERIDE (5 MG) 5 MG TABLET GT SCH (09:00)
[2018-12-01] MEDS: LINAGLIPTIN 5 MG TABLET GT SCH (09:00)
[2018-12-01] MEDS: TAMSULOSIN 0.4 MG CAP.SR.24H PO SCH (09:00)
--- NOTE | 2018-12-01 10:15 | NUR ---
Resident returned from S/P hemodialyis treatment, no s/s of any complications noted. LT chest jillian catheter intact, no bleeding noted. covered with dressing, clean and dry. on cool aerosol, tolerating well. no s/s of respiratory distress noted. pt afebrile. will monitor.
[2018-12-01] MEDS: VITS A AND D/WHITE PET/LANOLIN 5 GM PACKET TP SCH ×2 (10:20→21:56)
[2018-12-01] MEDS: Z GUARD REMEDY 4 OZ OINT TP SCH ×2 (10:20→21:56)
[2018-12-01] MEDS: POVIDONE-IODINE OINT 28.4 GM TUBE TP SCH (10:20)
[2018-12-01] MEDS: HYDROGEN PEROXIDE 480 ML BOTTLE TP SCH ×2 (10:20→21:56)
[2018-12-01] MEDS: NEOMY SULF/BACITRAC ZN/POLY 15 GM TUBE TP SCH (10:20)
[2018-12-01] MEDS: MINERAL OIL/PETROL OINT 396 GM JAR TP SCH ×2 (10:20→21:56)
[2018-12-01] MEDS: NEPRO 1,000 ML BOTTLE GT PRN (18:00)
[2018-12-01] MEDS: ATORVASTATIN 10 MG TABLET GT SCH (21:56)
[2018-12-01] MEDS: LATANOPROST EYE DROP 0.005% 2.5 ML BOTTLE EACHEYE SCH (21:56)
[2018-12-01] MEDS: hydrALAZINE HCL 25 MG TABLET GT PRN (23:38)
[2018-12-02] VITALS (9 sets, daily range): BP systolic 125–149; BP diastolic 55–73
[2018-12-02] MEDS: IPRATROPIUM NEB FS 0.5 MG/2.5 ML AMPUL.NEB IH SCH ×4 (01:04→19:37)
[2018-12-02] MEDS: PROSTAT (PYXIS) 30 ML UDC GT SCH ×3 (05:00→20:33)
[2018-12-02] MEDS: REGLAN GT SCH ×3 (06:10→17:46)
[2018-12-02] MEDS: SIMETHICONE SUSP 40 MG/0.6 ML BOTTLE GT SCH ×3 (06:10→17:46)
[2018-12-02] MEDS: LACOSAMIDE 50 MG TABLET GT SCH ×2 (06:11→17:46)
[2018-12-02] MEDS: RANITIDINE GT SCH (06:11)
[2018-12-02] MEDS: BLOOD SUGAR DIAGNOSTIC 1 EACH STRIP IN SCH ×3 (06:11→17:46)
[2018-12-02] MEDS: INSULIN REGULAR, HUMAN 100 UNIT/ML 10 ML VIAL SQ SCH ×3 (06:12→17:47)
[2018-12-02] MEDS: ACIDOPHILUS/BULGARICUS 1 EACH TAB.CHEW GT SCH (08:58)
[2018-12-02] MEDS: ASCORBIC ACID 500 MG TABLET GT SCH (08:58)
[2018-12-02] MEDS: NEUTRA PHOS 1 POWD.PACKET GT SCH (08:58)
[2018-12-02] MEDS: VIT B CMPLX 3/FA/VIT C/BIOTIN 1 TAB TABLET GT SCH (08:58)
[2018-12-02] MEDS: POTASSIUM CHLORIDE 20 MEQ POWDER PACKET GT SCH (08:58)
[2018-12-02] MEDS: DORZOLAMIDE OPTH 2% 10 ML BOTTLE EACHEYE SCH ×3 (08:58→17:46)
[2018-12-02] MEDS: FINASTERIDE (5 MG) 5 MG TABLET GT SCH (08:58)
[2018-12-02] MEDS: LINAGLIPTIN 5 MG TABLET GT SCH (08:58)
[2018-12-02] MEDS: POVIDONE-IODINE OINT 28.4 GM TUBE TP SCH (08:59)
[2018-12-02] MEDS: HYDROGEN PEROXIDE 480 ML BOTTLE TP SCH ×2 (08:59→20:33)
[2018-12-02] MEDS: TAMSULOSIN 0.4 MG CAP.SR.24H PO SCH (08:59)
[2018-12-02] MEDS: CHLORHEXIDINE GLUCONATE 15 ML UDC MM SCH ×2 (08:59→20:33)
[2018-12-02] MEDS: VITS A AND D/WHITE PET/LANOLIN 5 GM PACKET TP SCH ×2 (08:59→20:34)
[2018-12-02] MEDS: Z GUARD REMEDY 4 OZ OINT TP SCH ×2 (08:59→20:34)
[2018-12-02] MEDS: MINERAL OIL/PETROL OINT 396 GM JAR TP SCH ×2 (08:59→20:33)
--- NOTE | 2018-12-02 21:17 | NUR ---
RT RECEIVED PATIENT ON COOL AEROSOL. PLACED PATIENT ON VENT WITH NOTED VENT SETTINGS PER MD ORDER. PRN SUCTION WAS DONE. TRACH TUBE PATENT AND SECURED. ALARMS SET PER PROTOCOL AND AUDIBLE. VENT PLUGGED INTO RED OUTLET. AMBUBAG AT BED SIDE. WILL CONTINUE TO MONITOR PATIENT. Addendum: 12/02/18 at 2118 by ABEBA SUAREZ RT Amended: Links added.
[2018-12-02] MEDS: LATANOPROST EYE DROP 0.005% 2.5 ML BOTTLE EACHEYE SCH (21:48)
[2018-12-02] MEDS: ATORVASTATIN 10 MG TABLET GT SCH (21:48)
[2018-12-03] VITALS (8 sets, daily range): BP systolic 111–140; BP diastolic 50–87
[2018-12-03] MEDS: REGLAN GT SCH ×4 (00:43→17:12)
[2018-12-03] MEDS: BLOOD SUGAR DIAGNOSTIC 1 EACH STRIP IN SCH ×4 (00:44→18:37)
[2018-12-03] MEDS: SIMETHICONE SUSP 40 MG/0.6 ML BOTTLE GT SCH ×4 (00:44→17:12)
[2018-12-03] MEDS: INSULIN REGULAR, HUMAN 100 UNIT/ML 10 ML VIAL SQ SCH ×4 (00:45→18:38)
[2018-12-03] MEDS: IPRATROPIUM NEB FS 0.5 MG/2.5 ML AMPUL.NEB IH SCH ×4 (01:26→19:56)
[2018-12-03] MEDS: PROSTAT (PYXIS) 30 ML UDC GT SCH ×3 (05:00→20:25)
[2018-12-03] MEDS: LACOSAMIDE 50 MG TABLET GT SCH ×2 (06:28→17:12)
[2018-12-03] MEDS: RANITIDINE GT SCH (06:28)
[2018-12-03] MEDS: DORZOLAMIDE OPTH 2% 10 ML BOTTLE EACHEYE SCH ×3 (08:18→17:12)
[2018-12-03] MEDS: POTASSIUM CHLORIDE 20 MEQ POWDER PACKET GT SCH (08:19)
[2018-12-03] MEDS: ACIDOPHILUS/BULGARICUS 1 EACH TAB.CHEW GT SCH (08:20)
[2018-12-03] MEDS: VIT B CMPLX 3/FA/VIT C/BIOTIN 1 TAB TABLET GT SCH (08:22)
[2018-12-03] MEDS: FINASTERIDE (5 MG) 5 MG TABLET GT SCH (08:22)
[2018-12-03] MEDS: NEUTRA PHOS 1 POWD.PACKET GT SCH (08:22)
[2018-12-03] MEDS: TAMSULOSIN 0.4 MG CAP.SR.24H PO SCH (08:23)
[2018-12-03] MEDS: ASCORBIC ACID 500 MG TABLET GT SCH (08:23)
[2018-12-03] MEDS: Z GUARD REMEDY 4 OZ OINT TP SCH ×2 (08:23→20:26)
[2018-12-03] MEDS: CHLORHEXIDINE GLUCONATE 15 ML UDC MM SCH ×2 (08:23→20:26)
[2018-12-03] MEDS: LINAGLIPTIN 5 MG TABLET GT SCH (08:23)
[2018-12-03] MEDS: HYDROGEN PEROXIDE 480 ML BOTTLE TP SCH ×2 (08:23→20:26)
[2018-12-03] MEDS: MINERAL OIL/PETROL OINT 396 GM JAR TP SCH ×2 (08:23→20:26)
[2018-12-03] MEDS: VITS A AND D/WHITE PET/LANOLIN 5 GM PACKET TP SCH ×2 (08:23→20:26)
[2018-12-03] MEDS: NEPRO 1,000 ML BOTTLE GT PRN (18:55)
[2018-12-03] MEDS: LATANOPROST EYE DROP 0.005% 2.5 ML BOTTLE EACHEYE SCH (21:23)
[2018-12-03] MEDS: ATORVASTATIN 10 MG TABLET GT SCH (21:23)
[2018-12-04 01:00] VITALS: BP 140/71
[2018-12-04] MEDS: IPRATROPIUM NEB FS 0.5 MG/2.5 ML AMPUL.NEB IH SCH ×4 (01:11→19:56)
[2018-12-04] MEDS: PROSTAT (PYXIS) 30 ML UDC GT SCH ×3 (05:41→20:29)
[2018-12-04] MEDS: REGLAN GT SCH ×4 (05:41→18:00)
[2018-12-04] MEDS: RANITIDINE GT SCH (05:42)
[2018-12-04] MEDS: SIMETHICONE SUSP 40 MG/0.6 ML BOTTLE GT SCH ×4 (05:42→18:00)
[2018-12-04] MEDS: BLOOD SUGAR DIAGNOSTIC 1 EACH STRIP IN SCH ×4 (05:43→18:00)
[2018-12-04] MEDS: LACOSAMIDE 50 MG TABLET GT SCH ×2 (05:43→18:00)
[2018-12-04] MEDS: INSULIN REGULAR, HUMAN 100 UNIT/ML 10 ML VIAL SQ SCH ×4 (05:44→18:02)
[2018-12-04 06:29] VITALS: BP 145/78
[2018-12-04] MEDS: LINAGLIPTIN 5 MG TABLET GT SCH (09:00)
[2018-12-04] MEDS: POTASSIUM CHLORIDE 20 MEQ POWDER PACKET GT SCH (09:00)
[2018-12-04] MEDS: FINASTERIDE (5 MG) 5 MG TABLET GT SCH (09:00)
[2018-12-04] MEDS: NEUTRA PHOS 1 POWD.PACKET GT SCH (09:00)
[2018-12-04] MEDS: DORZOLAMIDE OPTH 2% 10 ML BOTTLE EACHEYE SCH ×3 (09:00→17:56)
[2018-12-04] MEDS: CHLORHEXIDINE GLUCONATE 15 ML UDC MM SCH ×2 (09:00→20:29)
[2018-12-04] MEDS: ASCORBIC ACID 500 MG TABLET GT SCH (09:00)
[2018-12-04] MEDS: TAMSULOSIN 0.4 MG CAP.SR.24H PO SCH (09:00)
[2018-12-04] MEDS: VIT B CMPLX 3/FA/VIT C/BIOTIN 1 TAB TABLET GT SCH (09:00)
[2018-12-04] MEDS: ACIDOPHILUS/BULGARICUS 1 EACH TAB.CHEW GT SCH (09:00)
[2018-12-04] MEDS: Z GUARD REMEDY 4 OZ OINT TP SCH ×2 (11:00→20:29)
[2018-12-04] MEDS: MINERAL OIL/PETROL OINT 396 GM JAR TP SCH ×2 (11:00→20:29)
[2018-12-04] MEDS: HYDROGEN PEROXIDE 480 ML BOTTLE TP SCH ×2 (11:00→20:29)
[2018-12-04] MEDS: VITS A AND D/WHITE PET/LANOLIN 5 GM PACKET TP SCH ×2 (11:00→20:29)
[2018-12-04] MEDS: NEPRO 1,000 ML BOTTLE GT PRN (11:05)
--- NOTE | 2018-12-04 11:35 | NUR ---
Received lab results from [facility] and spoke with MANASA Stockton from [facility] with new order to D/C Neutra Phos packet, continue Prostat, carried out. Dr. Garduno informed. Will contine to monitor.
[2018-12-04 18:46] VITALS: BP 121/70
[2018-12-04] MEDS: BACI/NEOM/POLY B OINT PKT 1 UDPKT PACKET TP SCH (20:29)
[2018-12-04 20:50] VITALS: BP 139/58
[2018-12-04 21:02] VITALS: BP 139/65
[2018-12-04] MEDS: LATANOPROST EYE DROP 0.005% 2.5 ML BOTTLE EACHEYE SCH (21:36)
[2018-12-04] MEDS: ATORVASTATIN 10 MG TABLET GT SCH (21:36)
[2018-12-05] VITALS (7 sets, daily range): BP systolic 123–147; BP diastolic 73–87
[2018-12-05] MEDS: REGLAN GT SCH ×5 (00:25→23:56)
[2018-12-05] MEDS: SIMETHICONE SUSP 40 MG/0.6 ML BOTTLE GT SCH ×5 (00:25→23:56)
[2018-12-05] MEDS: BLOOD SUGAR DIAGNOSTIC 1 EACH STRIP IN SCH ×5 (00:25→23:56)
[2018-12-05] MEDS: INSULIN REGULAR, HUMAN 100 UNIT/ML 10 ML VIAL SQ SCH ×5 (00:26→23:57)
[2018-12-05] MEDS: IPRATROPIUM NEB FS 0.5 MG/2.5 ML AMPUL.NEB IH SCH ×4 (00:52→20:00)
[2018-12-05] MEDS: PROSTAT (PYXIS) 30 ML UDC GT SCH ×3 (05:54→21:38)
[2018-12-05] MEDS: LACOSAMIDE 50 MG TABLET GT SCH ×2 (05:56→17:12)
[2018-12-05] MEDS: RANITIDINE GT SCH (05:56)
[2018-12-05] MEDS: POTASSIUM CHLORIDE 20 MEQ POWDER PACKET GT SCH (08:31)
[2018-12-05] MEDS: DORZOLAMIDE OPTH 2% 10 ML BOTTLE EACHEYE SCH ×3 (08:31→17:12)
[2018-12-05] MEDS: FINASTERIDE (5 MG) 5 MG TABLET GT SCH (08:32)
[2018-12-05] MEDS: VIT B CMPLX 3/FA/VIT C/BIOTIN 1 TAB TABLET GT SCH (08:32)
[2018-12-05] MEDS: ACIDOPHILUS/BULGARICUS 1 EACH TAB.CHEW GT SCH (08:32)
[2018-12-05] MEDS: LINAGLIPTIN 5 MG TABLET GT SCH (08:32)
[2018-12-05] MEDS: TAMSULOSIN 0.4 MG CAP.SR.24H PO SCH (08:33)
[2018-12-05] MEDS: CHLORHEXIDINE GLUCONATE 15 ML UDC MM SCH ×2 (08:33→21:38)
[2018-12-05] MEDS: ASCORBIC ACID 500 MG TABLET GT SCH (08:33)
[2018-12-05] MEDS: MINERAL OIL/PETROL OINT 396 GM JAR TP SCH ×2 (08:34→21:39)
[2018-12-05] MEDS: NEPRO 1,000 ML BOTTLE GT PRN (09:45)
[2018-12-05] MEDS: ACETAMINOPHEN 650 MG/20.3 ML UDC GT PRN (12:20)
--- NOTE | 2018-12-05 12:30 | NUR ---
pt. placed back to [facility] vent with cpap 5/ ps 15 fio2 40% due to 33 - 36 rate on trach mask. charge nurse notified. Addendum: 12/05/18 at 1232 by BECKIE CAMPUZANO RT Amended: Links added.
[2018-12-05] MEDS: BACI/NEOM/POLY B OINT PKT 1 UDPKT PACKET TP SCH ×2 (14:30→21:39)
[2018-12-05] MEDS: HYDROGEN PEROXIDE 480 ML BOTTLE TP SCH ×2 (14:30→21:39)
[2018-12-05] MEDS: Z GUARD REMEDY 4 OZ OINT TP SCH ×2 (14:31→21:39)
[2018-12-05] MEDS: VITS A AND D/WHITE PET/LANOLIN 5 GM PACKET TP SCH ×2 (14:31→21:39)
[2018-12-05] MEDS: LATANOPROST EYE DROP 0.005% 2.5 ML BOTTLE EACHEYE SCH (21:39)
[2018-12-05] MEDS: ATORVASTATIN 10 MG TABLET GT SCH (21:39)
[2018-12-06] VITALS (7 sets, daily range): BP systolic 122–142; BP diastolic 68–85
[2018-12-06] MEDS: IPRATROPIUM NEB FS 0.5 MG/2.5 ML AMPUL.NEB IH SCH ×4 (02:15→19:42)
[2018-12-06] MEDS: BLOOD SUGAR DIAGNOSTIC 1 EACH STRIP IN SCH ×4 (05:38→23:45)
[2018-12-06] MEDS: RANITIDINE GT SCH (05:38)
[2018-12-06] MEDS: SIMETHICONE SUSP 40 MG/0.6 ML BOTTLE GT SCH ×4 (05:38→23:45)
[2018-12-06] MEDS: LACOSAMIDE 50 MG TABLET GT SCH ×2 (05:38→17:35)
[2018-12-06] MEDS: REGLAN GT SCH ×4 (05:38→23:45)
[2018-12-06] MEDS: PROSTAT (PYXIS) 30 ML UDC GT SCH ×3 (05:38→21:53)
[2018-12-06] MEDS: INSULIN REGULAR, HUMAN 100 UNIT/ML 10 ML VIAL SQ SCH ×4 (05:39→23:46)
[2018-12-06] MEDS: HYDROGEN PEROXIDE 480 ML BOTTLE TP SCH ×2 (10:30→21:54)
[2018-12-06] MEDS: Z GUARD REMEDY 4 OZ OINT TP SCH ×2 (10:30→21:54)
[2018-12-06] MEDS: BACI/NEOM/POLY B OINT PKT 1 UDPKT PACKET TP SCH ×2 (10:30→21:54)
[2018-12-06] MEDS: FINASTERIDE (5 MG) 5 MG TABLET GT SCH (10:30)
[2018-12-06] MEDS: CHLORHEXIDINE GLUCONATE 15 ML UDC MM SCH ×2 (10:30→21:53)
[2018-12-06] MEDS: MINERAL OIL/PETROL OINT 396 GM JAR TP SCH ×2 (10:30→21:54)
[2018-12-06] MEDS: DORZOLAMIDE OPTH 2% 10 ML BOTTLE EACHEYE SCH ×3 (10:30→17:35)
[2018-12-06] MEDS: LINAGLIPTIN 5 MG TABLET GT SCH (10:30)
[2018-12-06] MEDS: VIT B CMPLX 3/FA/VIT C/BIOTIN 1 TAB TABLET GT SCH (10:30)
[2018-12-06] MEDS: ACIDOPHILUS/BULGARICUS 1 EACH TAB.CHEW GT SCH (10:30)
[2018-12-06] MEDS: ASCORBIC ACID 500 MG TABLET GT SCH (10:30)
[2018-12-06] MEDS: TAMSULOSIN 0.4 MG CAP.SR.24H PO SCH (10:30)
[2018-12-06] MEDS: VITS A AND D/WHITE PET/LANOLIN 5 GM PACKET TP SCH ×2 (10:30→21:54)
[2018-12-06] MEDS: POTASSIUM CHLORIDE 20 MEQ POWDER PACKET GT SCH (10:40)
[2018-12-06] MEDS: NEPRO 1,000 ML BOTTLE GT PRN (11:10)
[2018-12-06] MEDS: ATORVASTATIN 10 MG TABLET GT SCH (21:54)
[2018-12-06] MEDS: LATANOPROST EYE DROP 0.005% 2.5 ML BOTTLE EACHEYE SCH (21:54)
[2018-12-07] VITALS (8 sets, daily range): BP systolic 119–143; BP diastolic 64–82
[2018-12-07] MEDS: IPRATROPIUM NEB FS 0.5 MG/2.5 ML AMPUL.NEB IH SCH ×4 (01:29→20:02)
[2018-12-07] MEDS: REGLAN GT SCH ×4 (05:49→23:58)
[2018-12-07] MEDS: RANITIDINE GT SCH (05:49)
[2018-12-07] MEDS: PROSTAT (PYXIS) 30 ML UDC GT SCH ×3 (05:49→21:26)
[2018-12-07] MEDS: SIMETHICONE SUSP 40 MG/0.6 ML BOTTLE GT SCH ×4 (05:49→23:58)
[2018-12-07] MEDS: BLOOD SUGAR DIAGNOSTIC 1 EACH STRIP IN SCH ×4 (05:51→23:58)
[2018-12-07] MEDS: LACOSAMIDE 50 MG TABLET GT SCH ×2 (05:51→17:18)
[2018-12-07] MEDS: INSULIN REGULAR, HUMAN 100 UNIT/ML 10 ML VIAL SQ SCH ×3 (05:52→17:18)
[2018-12-07] MEDS: TAMSULOSIN 0.4 MG CAP.SR.24H PO SCH (09:19)
[2018-12-07] MEDS: FINASTERIDE (5 MG) 5 MG TABLET GT SCH (09:19)
[2018-12-07] MEDS: BACI/NEOM/POLY B OINT PKT 1 UDPKT PACKET TP SCH ×2 (09:19→21:26)
[2018-12-07] MEDS: LINAGLIPTIN 5 MG TABLET GT SCH (09:19)
[2018-12-07] MEDS: ASCORBIC ACID 500 MG TABLET GT SCH (09:19)
[2018-12-07] MEDS: Z GUARD REMEDY 4 OZ OINT TP SCH ×2 (09:19→21:26)
[2018-12-07] MEDS: ACIDOPHILUS/BULGARICUS 1 EACH TAB.CHEW GT SCH (09:19)
[2018-12-07] MEDS: HYDROGEN PEROXIDE 480 ML BOTTLE TP SCH ×2 (09:19→21:26)
[2018-12-07] MEDS: MINERAL OIL/PETROL OINT 396 GM JAR TP SCH ×2 (09:19→21:26)
[2018-12-07] MEDS: VITS A AND D/WHITE PET/LANOLIN 5 GM PACKET TP SCH ×2 (09:19→21:26)
[2018-12-07] MEDS: POTASSIUM CHLORIDE 20 MEQ POWDER PACKET GT SCH (09:19)
[2018-12-07] MEDS: CHLORHEXIDINE GLUCONATE 15 ML UDC MM SCH ×2 (09:19→21:26)
[2018-12-07] MEDS: VIT B CMPLX 3/FA/VIT C/BIOTIN 1 TAB TABLET GT SCH (09:19)
[2018-12-07] MEDS: DORZOLAMIDE OPTH 2% 10 ML BOTTLE EACHEYE SCH ×3 (09:19→17:19)
[2018-12-07] MEDS: NEPRO 1,000 ML BOTTLE GT PRN (09:29)
--- NOTE | 2018-12-07 15:35 | NUR ---
INTERDISCIPLINARY TEAM CONFERENCE (IDT) was held today. Resident's son Nat was attended today's IDT meeting. Dr. Ramírez and the interdisciplinary team reviewed the current plan of care in detail. Orders as well as treatment and medications were reviewed. Resident had a dental exam done by Dr. Pérez on 11/26/18. No new orders were given.
[2018-12-07] MEDS: ATORVASTATIN 10 MG TABLET GT SCH (21:26)
[2018-12-07] MEDS: LATANOPROST EYE DROP 0.005% 2.5 ML BOTTLE EACHEYE SCH (21:26)
[2018-12-08] VITALS (7 sets, daily range): BP systolic 121–144; BP diastolic 63–90
[2018-12-08] MEDS: IPRATROPIUM NEB FS 0.5 MG/2.5 ML AMPUL.NEB IH SCH ×4 (02:07→20:00)
[2018-12-08] MEDS: PROSTAT (PYXIS) 30 ML UDC GT SCH ×3 (05:28→21:35)
[2018-12-08] MEDS: BLOOD SUGAR DIAGNOSTIC 1 EACH STRIP IN SCH ×3 (05:28→18:10)
[2018-12-08] MEDS: LACOSAMIDE 50 MG TABLET GT SCH ×2 (05:28→18:10)
[2018-12-08] MEDS: RANITIDINE GT SCH (05:28)
[2018-12-08] MEDS: SIMETHICONE SUSP 40 MG/0.6 ML BOTTLE GT SCH ×3 (05:28→18:10)
[2018-12-08] MEDS: REGLAN GT SCH ×3 (05:28→18:10)
[2018-12-08] MEDS: INSULIN REGULAR, HUMAN 100 UNIT/ML 10 ML VIAL SQ SCH ×4 (05:30→18:10)
--- NOTE | 2018-12-08 05:59 | NUR ---
pt rec'd trached on cool aerosol, pt placed on mech vent on cpap mode per md orders. no resp distress or sob noted. sx'd for mod amt of yellow secretions. alarms are set and audible. vent plugged into red outlet. ambu bag bedside. will continue to monitor. Addendum: 12/08/18 at 0600 by PAUL ALMARAZ RT Amended: Links added.
--- NOTE | 2018-12-08 09:00 | NUR ---
Dr. Calvert, elastic attacher chainstitch consulted regarding patient son's concern that patient's HR has been high which is running between 80's to low 90's compared to low 50's to low 60's in the past. Informed Dr. Calvert that he was consulted before due to episodes of bradycardia. Dr. Calvert at that time discontinue his beta ramya. Lately, patient's HR has been running in the low 80's to the low 90's and son is concern that beta ramya may need to be resumed if HR is trending upward. Dr. Calvert responded "no, that's a normal HR". Will inform patient's son.
[2018-12-08] MEDS: FINASTERIDE (5 MG) 5 MG TABLET GT SCH (10:45)
[2018-12-08] MEDS: Z GUARD REMEDY 4 OZ OINT TP SCH ×2 (10:45→21:35)
[2018-12-08] MEDS: TAMSULOSIN 0.4 MG CAP.SR.24H PO SCH (10:45)
[2018-12-08] MEDS: VITS A AND D/WHITE PET/LANOLIN 5 GM PACKET TP SCH ×2 (10:45→21:35)
[2018-12-08] MEDS: VIT B CMPLX 3/FA/VIT C/BIOTIN 1 TAB TABLET GT SCH (10:45)
[2018-12-08] MEDS: POTASSIUM CHLORIDE 20 MEQ POWDER PACKET GT SCH (10:45)
[2018-12-08] MEDS: HYDROGEN PEROXIDE 480 ML BOTTLE TP SCH ×2 (10:45→21:35)
[2018-12-08] MEDS: MINERAL OIL/PETROL OINT 396 GM JAR TP SCH ×2 (10:45→21:35)
[2018-12-08] MEDS: ASCORBIC ACID 500 MG TABLET GT SCH (10:45)
[2018-12-08] MEDS: CHLORHEXIDINE GLUCONATE 15 ML UDC MM SCH ×2 (10:45→21:35)
[2018-12-08] MEDS: LINAGLIPTIN 5 MG TABLET GT SCH (10:45)
[2018-12-08] MEDS: DORZOLAMIDE OPTH 2% 10 ML BOTTLE EACHEYE SCH ×3 (10:45→17:00)
[2018-12-08] MEDS: BACI/NEOM/POLY B OINT PKT 1 UDPKT PACKET TP SCH ×2 (10:45→21:35)
[2018-12-08] MEDS: ACIDOPHILUS/BULGARICUS 1 EACH TAB.CHEW GT SCH (10:45)
--- NOTE | 2018-12-08 11:00 | NUR ---
RT NOTE: PATIENT RECEIVED TRACHED ON COOL AEROSOL. PATIENT TOLERATING WELL. SUCTIONED AND LAVAGED THICK DAILEY/BLOODY SECRETIONS.
--- NOTE | 2018-12-08 19:40 | NUR ---
Morning charge nurse talked to the patient's Son regarding Doctor Calvert's recommendation of not resuming the Beta-Arnol. Son requested to speak with Dr. Lugo regarding the Dr. Davalos's decision.
[2018-12-08] MEDS: LATANOPROST EYE DROP 0.005% 2.5 ML BOTTLE EACHEYE SCH (22:42)
[2018-12-08] MEDS: ATORVASTATIN 10 MG TABLET GT SCH (22:42)
[2018-12-09] VITALS (7 sets, daily range): BP systolic 124–147; BP diastolic 61–76
[2018-12-09] MEDS: REGLAN GT SCH ×4 (00:01→18:04)
[2018-12-09] MEDS: BLOOD SUGAR DIAGNOSTIC 1 EACH STRIP IN SCH ×4 (00:02→18:04)
[2018-12-09] MEDS: INSULIN REGULAR, HUMAN 100 UNIT/ML 10 ML VIAL SQ SCH ×4 (00:02→18:09)
[2018-12-09] MEDS: SIMETHICONE SUSP 40 MG/0.6 ML BOTTLE GT SCH ×4 (00:02→18:04)
[2018-12-09] MEDS: hydrALAZINE HCL 25 MG TABLET GT PRN (00:03)
[2018-12-09] MEDS: IPRATROPIUM NEB FS 0.5 MG/2.5 ML AMPUL.NEB IH SCH ×4 (01:55→19:45)
[2018-12-09] MEDS: PROSTAT (PYXIS) 30 ML UDC GT SCH ×3 (05:00→21:04)
--- NOTE | 2018-12-09 05:07 | NUR ---
PT REC'D TRACHED ON COOL AEROSOL, PT PLACED ON MECH VENT PER MD ORDERS. NO RESP DISTRESS OR SOB NOTED. SX'D FOR MOD AMT OF PALE YELLOW SECRETIONS. ALARMS ARE SET AND AUDIBLE. VENT PLUGGED INTO RED OUTLET. AMBU BAG BEDSIDE. WILL CONTINUE TO MONITOR. Addendum: 12/09/18 at 0508 by PAUL ALMARAZ RT Amended: Links added.
[2018-12-09] MEDS: RANITIDINE GT SCH (06:08)
[2018-12-09] MEDS: LACOSAMIDE 50 MG TABLET GT SCH ×2 (06:08→18:04)
[2018-12-09] MEDS: POTASSIUM CHLORIDE 20 MEQ POWDER PACKET GT SCH (09:27)
[2018-12-09] MEDS: FINASTERIDE (5 MG) 5 MG TABLET GT SCH (09:27)
[2018-12-09] MEDS: CHLORHEXIDINE GLUCONATE 15 ML UDC MM SCH ×2 (09:27→21:04)
[2018-12-09] MEDS: VIT B CMPLX 3/FA/VIT C/BIOTIN 1 TAB TABLET GT SCH (09:27)
[2018-12-09] MEDS: DORZOLAMIDE OPTH 2% 10 ML BOTTLE EACHEYE SCH ×3 (09:27→17:00)
[2018-12-09] MEDS: ACIDOPHILUS/BULGARICUS 1 EACH TAB.CHEW GT SCH (09:27)
[2018-12-09] MEDS: ASCORBIC ACID 500 MG TABLET GT SCH (09:27)
[2018-12-09] MEDS: TAMSULOSIN 0.4 MG CAP.SR.24H PO SCH (09:27)
[2018-12-09] MEDS: LINAGLIPTIN 5 MG TABLET GT SCH (09:27)
[2018-12-09] MEDS: VITS A AND D/WHITE PET/LANOLIN 5 GM PACKET TP SCH ×2 (09:28→21:07)
[2018-12-09] MEDS: MINERAL OIL/PETROL OINT 396 GM JAR TP SCH ×2 (09:28→21:04)
[2018-12-09] MEDS: Z GUARD REMEDY 4 OZ OINT TP SCH ×2 (09:28→21:07)
[2018-12-09] MEDS: BACI/NEOM/POLY B OINT PKT 1 UDPKT PACKET TP SCH ×2 (09:28→21:07)
[2018-12-09] MEDS: HYDROGEN PEROXIDE 480 ML BOTTLE TP SCH ×2 (09:28→21:06)
[2018-12-09] MEDS: NEPRO 1,000 ML BOTTLE GT PRN (09:54)
--- NOTE | 2018-12-09 20:14 | NUR ---
RT PT ON COOL AEROSOL. PLACED PT ON MECHANICAL PER MD ORDERED SETTINGS. TX GIVEN AND NO ADVERSE REACTION NOTED. PT TRACH PATENT AND SECURE. VENT PLUGGED INTO RED OUTLET. ALARMS ARE SET AND AUDIBLE. AMBU BAG AT BEDSIDE. NO SOB, NO RESPIRATORY DISTRESS NOTED AT THIS TIME. WILL CONTINUE TO MONITOR. Addendum: 12/09/18 at 2015 by RAYRAY KRUEGER RT Amended: Links added.
[2018-12-09] MEDS: ATORVASTATIN 10 MG TABLET GT SCH (21:07)
[2018-12-09] MEDS: LATANOPROST EYE DROP 0.005% 2.5 ML BOTTLE EACHEYE SCH (21:07)
[2018-12-10] MEDS: SIMETHICONE SUSP 40 MG/0.6 ML BOTTLE GT SCH ×5 (00:23→23:55)
[2018-12-10] MEDS: REGLAN GT SCH ×5 (00:23→23:55)
[2018-12-10] MEDS: BLOOD SUGAR DIAGNOSTIC 1 EACH STRIP IN SCH ×5 (00:23→23:55)
[2018-12-10] MEDS: INSULIN REGULAR, HUMAN 100 UNIT/ML 10 ML VIAL SQ SCH ×5 (00:25→23:56)
[2018-12-10] MEDS: IPRATROPIUM NEB FS 0.5 MG/2.5 ML AMPUL.NEB IH SCH ×4 (01:27→19:24)
[2018-12-10 03:23] VITALS: BP 136/74
[2018-12-10] MEDS: PROSTAT (PYXIS) 30 ML UDC GT SCH ×3 (05:00→21:08)
[2018-12-10 06:03] VITALS: BP 138/72
[2018-12-10] MEDS: RANITIDINE GT SCH (06:05)
[2018-12-10] MEDS: LACOSAMIDE 50 MG TABLET GT SCH ×2 (06:05→17:42)
[2018-12-10] MEDS: LINAGLIPTIN 5 MG TABLET GT SCH (08:47)
[2018-12-10] MEDS: FINASTERIDE (5 MG) 5 MG TABLET GT SCH (08:47)
[2018-12-10] MEDS: TAMSULOSIN 0.4 MG CAP.SR.24H PO SCH (08:47)
[2018-12-10] MEDS: DORZOLAMIDE OPTH 2% 10 ML BOTTLE EACHEYE SCH ×3 (08:47→17:23)
[2018-12-10] MEDS: HYDROGEN PEROXIDE 480 ML BOTTLE TP SCH ×2 (08:47→21:08)
[2018-12-10] MEDS: ASCORBIC ACID 500 MG TABLET GT SCH (08:47)
[2018-12-10] MEDS: MINERAL OIL/PETROL OINT 396 GM JAR TP SCH ×2 (08:47→21:08)
[2018-12-10] MEDS: ACIDOPHILUS/BULGARICUS 1 EACH TAB.CHEW GT SCH (08:47)
[2018-12-10] MEDS: CHLORHEXIDINE GLUCONATE 15 ML UDC MM SCH ×2 (08:47→21:08)
[2018-12-10] MEDS: VIT B CMPLX 3/FA/VIT C/BIOTIN 1 TAB TABLET GT SCH (08:47)
[2018-12-10] MEDS: POTASSIUM CHLORIDE 20 MEQ POWDER PACKET GT SCH (08:47)
[2018-12-10] MEDS: Z GUARD REMEDY 4 OZ OINT TP SCH ×2 (08:48→21:08)
[2018-12-10] MEDS: BACI/NEOM/POLY B OINT PKT 1 UDPKT PACKET TP SCH ×2 (08:48→21:08)
[2018-12-10] MEDS: VITS A AND D/WHITE PET/LANOLIN 5 GM PACKET TP SCH ×2 (08:48→21:08)
[2018-12-10 08:50] VITALS: BP 119/75
--- NOTE | 2018-12-10 11:00 | NUR ---
Seen by Dr Garduno. Informed him that pt's son is asking if pt needs be given beta blockers. Son is concerned about pt's heart rate. Heart rate has been ranging 80-90's. Dr Mckeon already declined giving pt beta blockers. Son asking to speak with Dr Garduno. Informed Dr Garduno. He also did not order beta blockers. Addendum: 12/10/18 at 1755 by MAGDA LOBO RN Dr Garduno ordered to check pt's TSH.
[2018-12-10] MEDS: NEPRO 1,000 ML BOTTLE GT PRN (12:07)
[2018-12-10 19:11] VITALS: BP 150/74
[2018-12-10 20:06] VITALS: BP 122/70
[2018-12-10] MEDS: LATANOPROST EYE DROP 0.005% 2.5 ML BOTTLE EACHEYE SCH (21:09)
[2018-12-10] MEDS: ATORVASTATIN 10 MG TABLET GT SCH (21:09)
[2018-12-10 21:11] VITALS: BP 122/70
[2018-12-11] MEDS: IPRATROPIUM NEB FS 0.5 MG/2.5 ML AMPUL.NEB IH SCH ×4 (00:44→19:32)
[2018-12-11 03:23] VITALS: BP 130/67
[2018-12-11] MEDS: PROSTAT (PYXIS) 30 ML UDC GT SCH ×3 (05:00→21:19)
[2018-12-11 06:05] VITALS: BP 138/60
[2018-12-11] MEDS: REGLAN GT SCH ×4 (06:07→23:56)
[2018-12-11] MEDS: BLOOD SUGAR DIAGNOSTIC 1 EACH STRIP IN SCH ×4 (06:07→23:56)
[2018-12-11] MEDS: LACOSAMIDE 50 MG TABLET GT SCH ×2 (06:07→17:37)
[2018-12-11] MEDS: SIMETHICONE SUSP 40 MG/0.6 ML BOTTLE GT SCH ×4 (06:07→23:56)
[2018-12-11] MEDS: RANITIDINE GT SCH (06:07)
[2018-12-11] MEDS: INSULIN REGULAR, HUMAN 100 UNIT/ML 10 ML VIAL SQ SCH ×4 (06:08→23:57)
[2018-12-11] MEDS: TAMSULOSIN 0.4 MG CAP.SR.24H PO SCH (09:00)
[2018-12-11] MEDS: LINAGLIPTIN 5 MG TABLET GT SCH (09:00)
[2018-12-11] MEDS: VIT B CMPLX 3/FA/VIT C/BIOTIN 1 TAB TABLET GT SCH (09:00)
[2018-12-11] MEDS: DORZOLAMIDE OPTH 2% 10 ML BOTTLE EACHEYE SCH ×3 (09:00→17:18)
[2018-12-11] MEDS: CHLORHEXIDINE GLUCONATE 15 ML UDC MM SCH ×2 (09:00→21:19)
[2018-12-11] MEDS: ASCORBIC ACID 500 MG TABLET GT SCH (09:00)
[2018-12-11] MEDS: ACIDOPHILUS/BULGARICUS 1 EACH TAB.CHEW GT SCH (09:00)
[2018-12-11] MEDS: MINERAL OIL/PETROL OINT 396 GM JAR TP SCH ×2 (09:00→21:20)
[2018-12-11] MEDS: POTASSIUM CHLORIDE 20 MEQ POWDER PACKET GT SCH (09:00)
[2018-12-11] MEDS: FINASTERIDE (5 MG) 5 MG TABLET GT SCH (09:00)
[2018-12-11] MEDS: BACI/NEOM/POLY B OINT PKT 1 UDPKT PACKET TP SCH ×2 (12:00→21:20)
[2018-12-11] MEDS: VITS A AND D/WHITE PET/LANOLIN 5 GM PACKET TP SCH ×2 (12:00→21:20)
[2018-12-11] MEDS: HYDROGEN PEROXIDE 480 ML BOTTLE TP SCH ×2 (12:00→21:20)
[2018-12-11] MEDS: Z GUARD REMEDY 4 OZ OINT TP SCH ×2 (12:00→21:20)
[2018-12-11 15:42] VITALS: BP 138/60
[2018-12-11 17:39] VITALS: BP 128/69
[2018-12-11 21:09] VITALS: BP 117/69
[2018-12-11 21:18] VITALS: BP 117/67
[2018-12-11] MEDS: LATANOPROST EYE DROP 0.005% 2.5 ML BOTTLE EACHEYE SCH (21:20)
[2018-12-11] MEDS: ATORVASTATIN 10 MG TABLET GT SCH (21:20)
[2018-12-12] VITALS (7 sets, daily range): BP systolic 122–133; BP diastolic 64–76
[2018-12-12] MEDS: IPRATROPIUM NEB FS 0.5 MG/2.5 ML AMPUL.NEB IH SCH ×4 (01:08→19:52)
[2018-12-12] MEDS: PROSTAT (PYXIS) 30 ML UDC GT SCH ×3 (05:00→21:20)
[2018-12-12] MEDS: SIMETHICONE SUSP 40 MG/0.6 ML BOTTLE GT SCH ×4 (06:16→23:47)
[2018-12-12] MEDS: REGLAN GT SCH ×4 (06:16→23:47)
[2018-12-12] MEDS: LACOSAMIDE 50 MG TABLET GT SCH ×2 (06:17→17:25)
[2018-12-12] MEDS: RANITIDINE GT SCH (06:17)
[2018-12-12] MEDS: BLOOD SUGAR DIAGNOSTIC 1 EACH STRIP IN SCH ×4 (06:17→23:47)
[2018-12-12] MEDS: INSULIN REGULAR, HUMAN 100 UNIT/ML 10 ML VIAL SQ SCH ×4 (06:18→23:49)
[2018-12-12] MEDS: BACI/NEOM/POLY B OINT PKT 1 UDPKT PACKET TP SCH ×2 (09:00→21:20)
[2018-12-12] MEDS: VITS A AND D/WHITE PET/LANOLIN 5 GM PACKET TP SCH ×2 (09:00→21:20)
[2018-12-12] MEDS: MINERAL OIL/PETROL OINT 396 GM JAR TP SCH ×2 (09:00→21:20)
[2018-12-12] MEDS: Z GUARD REMEDY 4 OZ OINT TP SCH ×2 (09:00→21:20)
[2018-12-12] MEDS: HYDROGEN PEROXIDE 480 ML BOTTLE TP SCH ×2 (09:00→21:20)
[2018-12-12] MEDS: ACIDOPHILUS/BULGARICUS 1 EACH TAB.CHEW GT SCH (09:13)
[2018-12-12] MEDS: POTASSIUM CHLORIDE 20 MEQ POWDER PACKET GT SCH (09:13)
[2018-12-12] MEDS: DORZOLAMIDE OPTH 2% 10 ML BOTTLE EACHEYE SCH ×3 (09:13→17:25)
[2018-12-12] MEDS: ASCORBIC ACID 500 MG TABLET GT SCH (09:15)
[2018-12-12] MEDS: TAMSULOSIN 0.4 MG CAP.SR.24H PO SCH (09:15)
[2018-12-12] MEDS: LINAGLIPTIN 5 MG TABLET GT SCH (09:15)
[2018-12-12] MEDS: FINASTERIDE (5 MG) 5 MG TABLET GT SCH (09:15)
[2018-12-12] MEDS: VIT B CMPLX 3/FA/VIT C/BIOTIN 1 TAB TABLET GT SCH (09:15)
[2018-12-12] MEDS: CHLORHEXIDINE GLUCONATE 15 ML UDC MM SCH ×2 (09:15→21:20)
[2018-12-12] MEDS: NEPRO 1,000 ML BOTTLE GT PRN (13:24)
--- NOTE | 2018-12-12 20:28 | NUR ---
RT NOTE PATIENT RECEIVED ON COOL AEROSOL @ 28%. PLACED PATIENT ON MECHANICAL VENTILATION W/ CURRENT CPAP SETTINGS PER NOC ORDER. CUFF CHECKED VIA MANAGER FLEET. VENT PLUGGED INTO RED OUTLET. ALARMS ON AND AUDIBLE. TX GIVEN, NO ADVERSE REACTIONS NOTED. SX DONE, MODERATE THICK YELLOW/WHITE SECRETIONS NOTED. HME REPLACED. WILL MONITOR T/O SHIFT. Addendum: 12/12/18 at 2029 by GINGER YOU RT Amended: Links added.
[2018-12-12] MEDS: ATORVASTATIN 10 MG TABLET GT SCH (21:21)
[2018-12-12] MEDS: LATANOPROST EYE DROP 0.005% 2.5 ML BOTTLE EACHEYE SCH (21:21)
[2018-12-13] VITALS (8 sets, daily range): BP systolic 122–145; BP diastolic 71–83
[2018-12-13] MEDS: IPRATROPIUM NEB FS 0.5 MG/2.5 ML AMPUL.NEB IH SCH ×5 (01:33→19:44)
[2018-12-13] MEDS: REGLAN GT SCH ×3 (05:18→17:27)
[2018-12-13] MEDS: LACOSAMIDE 50 MG TABLET GT SCH ×2 (05:18→17:27)
[2018-12-13] MEDS: BLOOD SUGAR DIAGNOSTIC 1 EACH STRIP IN SCH ×3 (05:18→17:27)
[2018-12-13] MEDS: SIMETHICONE SUSP 40 MG/0.6 ML BOTTLE GT SCH ×3 (05:18→17:27)
[2018-12-13] MEDS: PROSTAT (PYXIS) 30 ML UDC GT SCH ×3 (05:18→21:58)
[2018-12-13] MEDS: RANITIDINE GT SCH (05:18)
[2018-12-13] MEDS: INSULIN REGULAR, HUMAN 100 UNIT/ML 10 ML VIAL SQ SCH ×3 (05:19→17:28)
--- NOTE | 2018-12-13 07:41 | NUR ---
pt. sent out for hemodialysis. Addendum: 12/13/18 at 0741 by BECKIE CAMPUZANO RT Amended: Links added.
[2018-12-13] MEDS: TAMSULOSIN 0.4 MG CAP.SR.24H PO SCH (10:40)
[2018-12-13] MEDS: DORZOLAMIDE OPTH 2% 10 ML BOTTLE EACHEYE SCH ×3 (10:40→17:27)
[2018-12-13] MEDS: LINAGLIPTIN 5 MG TABLET GT SCH (10:40)
[2018-12-13] MEDS: Z GUARD REMEDY 4 OZ OINT TP SCH ×2 (10:40→21:58)
[2018-12-13] MEDS: VITS A AND D/WHITE PET/LANOLIN 5 GM PACKET TP SCH ×2 (10:40→21:58)
[2018-12-13] MEDS: MINERAL OIL/PETROL OINT 396 GM JAR TP SCH ×2 (10:40→21:58)
[2018-12-13] MEDS: VIT B CMPLX 3/FA/VIT C/BIOTIN 1 TAB TABLET GT SCH (10:40)
[2018-12-13] MEDS: ASCORBIC ACID 500 MG TABLET GT SCH (10:40)
[2018-12-13] MEDS: ACIDOPHILUS/BULGARICUS 1 EACH TAB.CHEW GT SCH (10:40)
[2018-12-13] MEDS: HYDROGEN PEROXIDE 480 ML BOTTLE TP SCH ×2 (10:40→21:58)
[2018-12-13] MEDS: BACI/NEOM/POLY B OINT PKT 1 UDPKT PACKET TP SCH ×2 (10:40→21:58)
[2018-12-13] MEDS: POTASSIUM CHLORIDE 20 MEQ POWDER PACKET GT SCH (10:40)
[2018-12-13] MEDS: CHLORHEXIDINE GLUCONATE 15 ML UDC MM SCH ×2 (10:40→21:58)
[2018-12-13] MEDS: FINASTERIDE (5 MG) 5 MG TABLET GT SCH (10:40)
--- NOTE | 2018-12-13 13:07 | NUR ---
Notified Dr. Garduno that [facility] frame runner is recommending the following: discontinue Neutraphos since Phosphorus level is 4.2, to continue with Prostat TID, Albumin level 3.[address] Garduno agreed. He also started patient on Coreg 6.25 mg, via GT Q 12 hours for heart failure after he spoke with patient son's concern that HR is trending up. Order noted and carried out. Spoke with Dr. Johns made aware of new orders, appreciated the call.
--- NOTE | 2018-12-13 16:04 | NUR ---
Spoke with Dr. Mirza, lithostripper about a concern that he brought up in the past, if and when dialysis treatment will be reduced. He said that he will speak with the patient's son.
[2018-12-13] MEDS: NEPRO 1,000 ML BOTTLE GT PRN (17:29)
--- NOTE | 2018-12-13 19:30 | NUR ---
Seen by BRANDO Pineda no new order.
--- NOTE | 2018-12-13 19:40 | NUR ---
Seen and examined by BRANDO Pineda, resident's son, Dr. Johns at bedside. She explained to Dr. Johns that since he will be started on Coreg 6.25 mg. it may be held before dialysis. At this time B/P will be monitored for now and will obtain parameter from Dr. Garduno. Dr. Johns also made aware that Dr. Jeronimo will call him regarding frequency of patient's dialysis treatment. DR. Johns said, he called Dr. Jeronimo's office today. NNO given by BRANDO Pineda.
[2018-12-13] MEDS: CARVEDILOL 6.25 MG TABLET GT SCH (21:58)
[2018-12-13] MEDS: LATANOPROST EYE DROP 0.005% 2.5 ML BOTTLE EACHEYE SCH (21:58)
[2018-12-13] MEDS: ATORVASTATIN 10 MG TABLET GT SCH (21:58)
[2018-12-14] VITALS (7 sets, daily range): BP systolic 102–163; BP diastolic 60–90
[2018-12-14] MEDS: REGLAN GT SCH ×4 (00:24→17:29)
[2018-12-14] MEDS: SIMETHICONE SUSP 40 MG/0.6 ML BOTTLE GT SCH ×4 (00:24→17:29)
[2018-12-14] MEDS: BLOOD SUGAR DIAGNOSTIC 1 EACH STRIP IN SCH ×4 (00:24→17:29)
[2018-12-14] MEDS: INSULIN REGULAR, HUMAN 100 UNIT/ML 10 ML VIAL SQ SCH ×4 (00:25→17:29)
[2018-12-14] MEDS: IPRATROPIUM NEB FS 0.5 MG/2.5 ML AMPUL.NEB IH SCH ×4 (00:47→19:50)
--- NOTE | 2018-12-14 03:49 | NUR ---
RT NOTE PT RECEIVED ON COOL AEROSOL, THEN PLACED ON CPAP. NO RESP DISTRESS NOTED AT THIS TIME. PT SX'D. BREATHING TX GIVEN, NO ADVERSE REACTIONS NOTED. AMBU BAG AND SPARE TRACH ARE AT BEDSIDE. VENT IS PLUGGED INTO RED OUTLET. ALARMS ARE ON AND AUDIBLE. SON AT BEDSIDE. WILL CONT TO MONITOR PT. Addendum: 12/14/18 at 0350 by NEAL HERNANDEZ RT Amended: Links added.
[2018-12-14] MEDS: PROSTAT (PYXIS) 30 ML UDC GT SCH ×3 (05:00→21:34)
[2018-12-14] MEDS: RANITIDINE GT SCH (06:02)
[2018-12-14] MEDS: LACOSAMIDE 50 MG TABLET GT SCH ×2 (06:02→17:29)
[2018-12-14] MEDS: MINERAL OIL/PETROL OINT 396 GM JAR TP SCH ×2 (09:12→21:34)
[2018-12-14] MEDS: HYDROGEN PEROXIDE 480 ML BOTTLE TP SCH ×2 (09:12→21:35)
[2018-12-14] MEDS: VIT B CMPLX 3/FA/VIT C/BIOTIN 1 TAB TABLET GT SCH (09:12)
[2018-12-14] MEDS: ACIDOPHILUS/BULGARICUS 1 EACH TAB.CHEW GT SCH (09:12)
[2018-12-14] MEDS: POTASSIUM CHLORIDE 20 MEQ POWDER PACKET GT SCH (09:12)
[2018-12-14] MEDS: LINAGLIPTIN 5 MG TABLET GT SCH (09:12)
[2018-12-14] MEDS: CHLORHEXIDINE GLUCONATE 15 ML UDC MM SCH ×2 (09:12→21:34)
[2018-12-14] MEDS: DORZOLAMIDE OPTH 2% 10 ML BOTTLE EACHEYE SCH ×3 (09:12→17:29)
[2018-12-14] MEDS: FINASTERIDE (5 MG) 5 MG TABLET GT SCH (09:12)
[2018-12-14] MEDS: BACI/NEOM/POLY B OINT PKT 1 UDPKT PACKET TP SCH ×2 (09:12→21:35)
[2018-12-14] MEDS: ASCORBIC ACID 500 MG TABLET GT SCH (09:12)
[2018-12-14] MEDS: TAMSULOSIN 0.4 MG CAP.SR.24H PO SCH (09:12)
[2018-12-14] MEDS: VITS A AND D/WHITE PET/LANOLIN 5 GM PACKET TP SCH ×2 (09:13→21:35)
[2018-12-14] MEDS: Z GUARD REMEDY 4 OZ OINT TP SCH ×2 (09:13→21:35)
[2018-12-14] MEDS: CARVEDILOL 6.25 MG TABLET GT SCH ×2 (10:00→21:34)
--- NOTE | 2018-12-14 12:00 | NUR ---
Obtain parameter for medication Coreg from Dr. Garduno, to hold if SBP is less than 100 0r HR less than 55. Order carried out.
[2018-12-14] MEDS: NEPRO 1,000 ML BOTTLE GT PRN (17:29)
[2018-12-14] MEDS: ATORVASTATIN 10 MG TABLET GT SCH (21:35)
[2018-12-14] MEDS: LATANOPROST EYE DROP 0.005% 2.5 ML BOTTLE EACHEYE SCH (21:35)
[2018-12-15] MEDS: SIMETHICONE SUSP 40 MG/0.6 ML BOTTLE GT SCH ×4 (00:20→17:43)
[2018-12-15] MEDS: REGLAN GT SCH ×4 (00:20→17:43)
[2018-12-15] MEDS: BLOOD SUGAR DIAGNOSTIC 1 EACH STRIP IN SCH ×4 (00:20→17:43)
[2018-12-15] MEDS: INSULIN REGULAR, HUMAN 100 UNIT/ML 10 ML VIAL SQ SCH ×4 (00:22→17:43)
[2018-12-15 01:10] VITALS: BP 126/80
[2018-12-15] MEDS: IPRATROPIUM NEB FS 0.5 MG/2.5 ML AMPUL.NEB IH SCH ×4 (01:28→19:19)
[2018-12-15] MEDS: PROSTAT (PYXIS) 30 ML UDC GT SCH ×3 (05:25→20:18)
[2018-12-15] MEDS: LACOSAMIDE 50 MG TABLET GT SCH ×2 (05:25→17:43)
[2018-12-15] MEDS: RANITIDINE GT SCH (05:25)
[2018-12-15 06:29] VITALS: BP 129/73
[2018-12-15] MEDS: ACIDOPHILUS/BULGARICUS 1 EACH TAB.CHEW GT SCH (09:00)
[2018-12-15] MEDS: DORZOLAMIDE OPTH 2% 10 ML BOTTLE EACHEYE SCH ×3 (09:00→17:43)
[2018-12-15] MEDS: POTASSIUM CHLORIDE 20 MEQ POWDER PACKET GT SCH (09:00)
[2018-12-15] MEDS: FINASTERIDE (5 MG) 5 MG TABLET GT SCH (09:00)
[2018-12-15] MEDS: ASCORBIC ACID 500 MG TABLET GT SCH (09:00)
[2018-12-15] MEDS: CARVEDILOL 6.25 MG TABLET GT SCH ×2 (09:00→20:18)
[2018-12-15] MEDS: TAMSULOSIN 0.4 MG CAP.SR.24H PO SCH (09:00)
[2018-12-15] MEDS: VIT B CMPLX 3/FA/VIT C/BIOTIN 1 TAB TABLET GT SCH (09:00)
[2018-12-15] MEDS: LINAGLIPTIN 5 MG TABLET GT SCH (09:00)
[2018-12-15 11:00] VITALS: BP 114/76
--- NOTE | 2018-12-15 12:57 | NUR ---
Pt's G-tube coming out from pt's stoma due to broken balloon. Replaced G-tube and informed Dr Garduno. Received order to do KUB to verify G-tube placement. Addendum: 12/15/18 at 1304 by MAGDA LOBO RN Pt had a Bard Fr 20 and it was also replaced by a Bard Fr 20.
[2018-12-15] MEDS: MINERAL OIL/PETROL OINT 396 GM JAR TP SCH ×2 (13:48→20:31)
[2018-12-15] MEDS: Z GUARD REMEDY 4 OZ OINT TP SCH ×2 (13:48→20:31)
[2018-12-15] MEDS: BACI/NEOM/POLY B OINT PKT 1 UDPKT PACKET TP SCH ×2 (13:48→20:31)
[2018-12-15] MEDS: HYDROGEN PEROXIDE 480 ML BOTTLE TP SCH ×2 (13:48→20:31)
[2018-12-15] MEDS: VITS A AND D/WHITE PET/LANOLIN 5 GM PACKET TP SCH ×2 (13:48→20:32)
[2018-12-15] MEDS: CHLORHEXIDINE GLUCONATE 15 ML UDC MM SCH ×2 (13:48→20:31)
--- NOTE | 2018-12-15 15:30 | NUR ---
KUB result shows successful insertion of G-tube, no extravasation. Relayed to Dr Garduno. Resumed feeding. Informed pt's son that G-tube was replaced due to broken balloon and KUB was done to verify placement.
[2018-12-15 18:00] VITALS: BP 128/73
[2018-12-15 20:00] VITALS: BP 125/71
[2018-12-15 20:51] VITALS: BP 125/71
--- NOTE | 2018-12-15 21:33 | NUR ---
RT RECEIVED PATIENT ON COOL AEROSOL. PLACED PATIENT ON VENT WITH NOTED VENT SETTINGS PER MD ORDER. PRN SUCTION WAS DONE. TRACH TUBE PATENT AND SECURED. ALARMS SET PER PROTOCOL AND AUDIBLE. VENT PLUGGED INTO RED OUTLET. AMBUBAG AT BED SIDE. WILL CONTINUE TO MONITOR PATIENT. Addendum: 12/15/18 at 2134 by ABEBA SUAREZ RT Amended: Links added.
[2018-12-15] MEDS: LATANOPROST EYE DROP 0.005% 2.5 ML BOTTLE EACHEYE SCH (22:04)
[2018-12-15] MEDS: ATORVASTATIN 10 MG TABLET GT SCH (22:04)
[2018-12-16] VITALS (8 sets, daily range): BP systolic 108–142; BP diastolic 61–87
[2018-12-16] MEDS: REGLAN GT SCH ×5 (00:29→23:41)
[2018-12-16] MEDS: BLOOD SUGAR DIAGNOSTIC 1 EACH STRIP IN SCH ×5 (00:29→23:41)
[2018-12-16] MEDS: SIMETHICONE SUSP 40 MG/0.6 ML BOTTLE GT SCH ×5 (00:30→23:41)
[2018-12-16] MEDS: INSULIN REGULAR, HUMAN 100 UNIT/ML 10 ML VIAL SQ SCH ×5 (00:39→23:42)
[2018-12-16] MEDS: IPRATROPIUM NEB FS 0.5 MG/2.5 ML AMPUL.NEB IH SCH ×4 (01:18→19:56)
[2018-12-16] MEDS: PROSTAT (PYXIS) 30 ML UDC GT SCH ×3 (05:56→21:08)
[2018-12-16] MEDS: LACOSAMIDE 50 MG TABLET GT SCH ×2 (06:07→18:13)
[2018-12-16] MEDS: RANITIDINE GT SCH (06:10)
[2018-12-16] MEDS: NEPRO 1,000 ML BOTTLE GT PRN (06:24)
[2018-12-16] MEDS: FINASTERIDE (5 MG) 5 MG TABLET GT SCH (09:23)
[2018-12-16] MEDS: MINERAL OIL/PETROL OINT 396 GM JAR TP SCH ×2 (09:23→21:08)
[2018-12-16] MEDS: LINAGLIPTIN 5 MG TABLET GT SCH (09:23)
[2018-12-16] MEDS: DORZOLAMIDE OPTH 2% 10 ML BOTTLE EACHEYE SCH ×3 (09:23→17:00)
[2018-12-16] MEDS: ASCORBIC ACID 500 MG TABLET GT SCH (09:23)
[2018-12-16] MEDS: POTASSIUM CHLORIDE 20 MEQ POWDER PACKET GT SCH (09:23)
[2018-12-16] MEDS: HYDROGEN PEROXIDE 480 ML BOTTLE TP SCH ×2 (09:23→21:09)
[2018-12-16] MEDS: TAMSULOSIN 0.4 MG CAP.SR.24H PO SCH (09:23)
[2018-12-16] MEDS: CARVEDILOL 6.25 MG TABLET GT SCH ×2 (09:23→21:08)
[2018-12-16] MEDS: BACI/NEOM/POLY B OINT PKT 1 UDPKT PACKET TP SCH ×2 (09:23→21:09)
[2018-12-16] MEDS: VIT B CMPLX 3/FA/VIT C/BIOTIN 1 TAB TABLET GT SCH (09:23)
[2018-12-16] MEDS: CHLORHEXIDINE GLUCONATE 15 ML UDC MM SCH ×2 (09:23→21:08)
[2018-12-16] MEDS: ACIDOPHILUS/BULGARICUS 1 EACH TAB.CHEW GT SCH (09:23)
[2018-12-16] MEDS: Z GUARD REMEDY 4 OZ OINT TP SCH ×2 (09:24→21:09)
[2018-12-16] MEDS: VITS A AND D/WHITE PET/LANOLIN 5 GM PACKET TP SCH ×2 (09:24→21:09)
--- NOTE | 2018-12-16 09:31 | NUR ---
RESIDENT SEEN AND EXAMINED BY DOLLY TRAYLOR PARTICLEBOARD FACTORY WORKER, NO NEW ORDERS.
[2018-12-16] MEDS: ATORVASTATIN 10 MG TABLET GT SCH (21:09)
[2018-12-16] MEDS: LATANOPROST EYE DROP 0.005% 2.5 ML BOTTLE EACHEYE SCH (21:09)
[2018-12-17] VITALS (8 sets, daily range): BP systolic 109–133; BP diastolic 51–80
[2018-12-17] MEDS: IPRATROPIUM NEB FS 0.5 MG/2.5 ML AMPUL.NEB IH SCH ×4 (01:34→20:07)
[2018-12-17] MEDS: SIMETHICONE SUSP 40 MG/0.6 ML BOTTLE GT SCH ×3 (05:45→17:14)
[2018-12-17] MEDS: REGLAN GT SCH ×3 (05:45→17:14)
[2018-12-17] MEDS: PROSTAT (PYXIS) 30 ML UDC GT SCH ×3 (05:45→21:25)
[2018-12-17] MEDS: LACOSAMIDE 50 MG TABLET GT SCH ×2 (05:46→17:14)
[2018-12-17] MEDS: BLOOD SUGAR DIAGNOSTIC 1 EACH STRIP IN SCH ×3 (05:46→18:32)
[2018-12-17] MEDS: RANITIDINE GT SCH (05:46)
[2018-12-17] MEDS: INSULIN REGULAR, HUMAN 100 UNIT/ML 10 ML VIAL SQ SCH ×3 (05:46→18:36)
[2018-12-17] MEDS: DORZOLAMIDE OPTH 2% 10 ML BOTTLE EACHEYE SCH ×3 (08:11→17:14)
[2018-12-17] MEDS: LINAGLIPTIN 5 MG TABLET GT SCH (08:12)
[2018-12-17] MEDS: TAMSULOSIN 0.4 MG CAP.SR.24H PO SCH (08:12)
[2018-12-17] MEDS: POTASSIUM CHLORIDE 20 MEQ POWDER PACKET GT SCH (08:12)
[2018-12-17] MEDS: ASCORBIC ACID 500 MG TABLET GT SCH (08:12)
[2018-12-17] MEDS: CARVEDILOL 6.25 MG TABLET GT SCH ×2 (08:12→21:25)
[2018-12-17] MEDS: FINASTERIDE (5 MG) 5 MG TABLET GT SCH (08:12)
[2018-12-17] MEDS: VIT B CMPLX 3/FA/VIT C/BIOTIN 1 TAB TABLET GT SCH (08:12)
[2018-12-17] MEDS: CHLORHEXIDINE GLUCONATE 15 ML UDC MM SCH ×2 (08:12→21:25)
[2018-12-17] MEDS: ACIDOPHILUS/BULGARICUS 1 EACH TAB.CHEW GT SCH (08:12)
[2018-12-17] MEDS: VITS A AND D/WHITE PET/LANOLIN 5 GM PACKET TP SCH ×2 (09:00→21:26)
[2018-12-17] MEDS: HYDROGEN PEROXIDE 480 ML BOTTLE TP SCH ×2 (09:00→21:26)
[2018-12-17] MEDS: BACI/NEOM/POLY B OINT PKT 1 UDPKT PACKET TP SCH ×2 (09:00→21:26)
[2018-12-17] MEDS: Z GUARD REMEDY 4 OZ OINT TP SCH ×2 (09:00→21:26)
[2018-12-17] MEDS: MINERAL OIL/PETROL OINT 396 GM JAR TP SCH ×2 (09:00→21:26)
--- NOTE | 2018-12-17 09:00 | NUR ---
RT DID NOT PLACE PT ON T-BAR COOL AEROSOL DUE TO INCREASED WORK OF BREATHING INFORMED NURSE
--- NOTE | 2018-12-17 10:02 | NUR ---
Pt had a gastric residual of 500 cc earlier this morning, light brownish in color with some streaks of blood. Held GT feeding. Informed Dr Garduno. He ordered GI consult. Notified Dr Kaplan. He said he will see pt.
--- NOTE | 2018-12-17 11:37 | NUR ---
CHANI called [facility] as per patient's son request to enquire about son coming back to the [facility]. CHANI spoke with Josie (manager forensic) and she told SW that patient does not qualify to stay at [facility] because [facility] and [facility]. CHANI communicated this to son's patient.
--- NOTE | 2018-12-17 11:41 | NUR ---
Pt seen by Dr Kaplan. He ordered to do CBC. GT feeding has been resumed.
--- NOTE | 2018-12-17 11:53 | NUR ---
Gastric residual 20 cc at this time.
[2018-12-17 12:46] LABS: BASOPHILS % (AUTO) 0.2 % (0.0-2.0); HEMATOCRIT 40 % (39-51); HEMOGLOBIN 12.9 g/dL (13.5-17.5); LYMPHOCYTES # (AUTO) 0.8 /CMM (0.8-4.8); LYMPHOCYTES % (AUTO) 9.2 % (20.0-44.0); MEAN CORPUSCULAR HGB CONC 32 g/dl (31.0-36.0); MEAN CORPUSCULAR VOLUME 96 fL (80-96); MONOCYTES # (AUTO) 0.7 /CMM (0.1-1.30); MONOCYTES % (AUTO) 8.4 % (2.0-12.0); NEUTROPHILS % (AUTO) 80.2 % (43.0-81.0); PLATELET COUNT (AUTO) 170 /CMM (150-450); RED BLOOD CELL COUNT(AUTO) 4.19 MIL/uL (4.5-6.0); WHITE BLOOD COUNT (AUTO) 8.7 K/uL (4.3-11.0)
--- NOTE | 2018-12-17 13:44 | NUR ---
Pt's Hgb 12.9 Hct 40. Previous Hgb 8.[address] Kaplan said earlier today that if Hgb is lower or is 6, then check stool for OB. Relayed result to Dr Kaplan and he said there is no need to check stool for OB.
--- NOTE | 2018-12-17 13:55 | NUR ---
Seen by [employer] RE[employer]ERATED TRUCK DRIVER Nilam Pineda. Informed her that pt was not placed by RT on cool aerosol this morning since pt appears to have some difficulty breathing which may have been caused by gastric residual of 500 cc. She said to try placing on cool aerosol since residual has subsided. RT Sierra placed pt on cool aerosol and pt is tolerating well.
--- NOTE | 2018-12-17 14:02 | NUR ---
Pt's gastric residual 10 cc, pt has been receiving GT feeding.
--- NOTE | 2018-12-17 15:30 | NUR ---
Pt's son visiting. Informed him of gastric residual, GI consult, and CBC result.
[2018-12-17] MEDS: LATANOPROST EYE DROP 0.005% 2.5 ML BOTTLE EACHEYE SCH (21:26)
[2018-12-17] MEDS: ATORVASTATIN 10 MG TABLET GT SCH (21:26)
[2018-12-18] VITALS (7 sets, daily range): BP systolic 122–136; BP diastolic 53–76
[2018-12-18] MEDS: BLOOD SUGAR DIAGNOSTIC 1 EACH STRIP IN SCH ×4 (00:18→18:18)
[2018-12-18] MEDS: SIMETHICONE SUSP 40 MG/0.6 ML BOTTLE GT SCH ×4 (00:18→17:07)
[2018-12-18] MEDS: REGLAN GT SCH ×4 (00:18→17:07)
[2018-12-18] MEDS: INSULIN REGULAR, HUMAN 100 UNIT/ML 10 ML VIAL SQ SCH ×4 (00:19→18:19)
[2018-12-18] MEDS: IPRATROPIUM NEB FS 0.5 MG/2.5 ML AMPUL.NEB IH SCH ×4 (01:29→20:04)
[2018-12-18] MEDS: RANITIDINE GT SCH (05:55)
[2018-12-18] MEDS: PROSTAT (PYXIS) 30 ML UDC GT SCH ×3 (05:55→21:09)
[2018-12-18] MEDS: LACOSAMIDE 50 MG TABLET GT SCH ×2 (05:55→17:07)
[2018-12-18] MEDS: FINASTERIDE (5 MG) 5 MG TABLET GT SCH (10:30)
[2018-12-18] MEDS: CHLORHEXIDINE GLUCONATE 15 ML UDC MM SCH ×2 (10:30→21:09)
[2018-12-18] MEDS: TAMSULOSIN 0.4 MG CAP.SR.24H PO SCH (10:30)
[2018-12-18] MEDS: ACIDOPHILUS/BULGARICUS 1 EACH TAB.CHEW GT SCH (10:30)
[2018-12-18] MEDS: VIT B CMPLX 3/FA/VIT C/BIOTIN 1 TAB TABLET GT SCH (10:30)
[2018-12-18] MEDS: POTASSIUM CHLORIDE 20 MEQ POWDER PACKET GT SCH (10:30)
[2018-12-18] MEDS: ASCORBIC ACID 500 MG TABLET GT SCH (10:30)
[2018-12-18] MEDS: LINAGLIPTIN 5 MG TABLET GT SCH (10:30)
[2018-12-18] MEDS: CARVEDILOL 6.25 MG TABLET GT SCH ×2 (10:30→21:09)
[2018-12-18] MEDS: DORZOLAMIDE OPTH 2% 10 ML BOTTLE EACHEYE SCH ×3 (10:30→17:07)
--- NOTE | 2018-12-18 10:55 | NUR ---
RT NOTE: PATIENT PLACED ON COOL AEROSOL PER MD ORDER. PATIENT IS TOLERATING WELL. NURSE AWARE.
[2018-12-18] MEDS: Z GUARD REMEDY 4 OZ OINT TP SCH ×2 (11:07→21:09)
[2018-12-18] MEDS: BACI/NEOM/POLY B OINT PKT 1 UDPKT PACKET TP SCH (11:07)
[2018-12-18] MEDS: MINERAL OIL/PETROL OINT 396 GM JAR TP SCH ×2 (11:07→21:09)
[2018-12-18] MEDS: HYDROGEN PEROXIDE 480 ML BOTTLE TP SCH ×2 (11:07→21:09)
[2018-12-18] MEDS: VITS A AND D/WHITE PET/LANOLIN 5 GM PACKET TP SCH ×2 (11:07→21:09)
[2018-12-18] MEDS: LATANOPROST EYE DROP 0.005% 2.5 ML BOTTLE EACHEYE SCH (21:09)
[2018-12-18] MEDS: ATORVASTATIN 10 MG TABLET GT SCH (21:10)
[2018-12-19] VITALS (8 sets, daily range): BP systolic 111–140; BP diastolic 62–88
[2018-12-19] MEDS: SIMETHICONE SUSP 40 MG/0.6 ML BOTTLE GT SCH ×5 (00:15→23:41)
[2018-12-19] MEDS: REGLAN GT SCH ×5 (00:15→23:41)
[2018-12-19] MEDS: BLOOD SUGAR DIAGNOSTIC 1 EACH STRIP IN SCH ×5 (00:15→23:42)
[2018-12-19] MEDS: INSULIN REGULAR, HUMAN 100 UNIT/ML 10 ML VIAL SQ SCH ×5 (00:16→23:43)
[2018-12-19] MEDS: IPRATROPIUM NEB FS 0.5 MG/2.5 ML AMPUL.NEB IH SCH ×4 (02:24→20:16)
[2018-12-19] MEDS: PROSTAT (PYXIS) 30 ML UDC GT SCH ×3 (05:00→21:17)
[2018-12-19] MEDS: RANITIDINE GT SCH (06:00)
[2018-12-19] MEDS: LACOSAMIDE 50 MG TABLET GT SCH ×2 (06:00→18:27)
[2018-12-19] MEDS: VITS A AND D/WHITE PET/LANOLIN 5 GM PACKET TP SCH ×2 (09:00→21:17)
[2018-12-19] MEDS: MINERAL OIL/PETROL OINT 396 GM JAR TP SCH ×2 (09:00→21:17)
[2018-12-19] MEDS: VIT B CMPLX 3/FA/VIT C/BIOTIN 1 TAB TABLET GT SCH (09:00)
[2018-12-19] MEDS: CHLORHEXIDINE GLUCONATE 15 ML UDC MM SCH ×2 (09:00→21:17)
[2018-12-19] MEDS: CARVEDILOL 6.25 MG TABLET GT SCH ×2 (09:00→21:17)
[2018-12-19] MEDS: FINASTERIDE (5 MG) 5 MG TABLET GT SCH (09:00)
[2018-12-19] MEDS: ASCORBIC ACID 500 MG TABLET GT SCH (09:00)
[2018-12-19] MEDS: LINAGLIPTIN 5 MG TABLET GT SCH (09:00)
[2018-12-19] MEDS: ACIDOPHILUS/BULGARICUS 1 EACH TAB.CHEW GT SCH (09:00)
[2018-12-19] MEDS: DORZOLAMIDE OPTH 2% 10 ML BOTTLE EACHEYE SCH ×3 (09:00→17:00)
[2018-12-19] MEDS: POTASSIUM CHLORIDE 20 MEQ POWDER PACKET GT SCH (09:00)
[2018-12-19] MEDS: Z GUARD REMEDY 4 OZ OINT TP SCH ×2 (09:00→21:17)
[2018-12-19] MEDS: HYDROGEN PEROXIDE 480 ML BOTTLE TP SCH ×2 (09:00→21:17)
[2018-12-19] MEDS: TAMSULOSIN 0.4 MG CAP.SR.24H PO SCH (21:17)
[2018-12-19] MEDS: LATANOPROST EYE DROP 0.005% 2.5 ML BOTTLE EACHEYE SCH (21:17)
[2018-12-19] MEDS: ATORVASTATIN 10 MG TABLET GT SCH (21:17)
[2018-12-19] MEDS: NEPRO 1,000 ML BOTTLE GT PRN (22:30)
[2018-12-20] VITALS (8 sets, daily range): BP systolic 103–138; BP diastolic 51–75
[2018-12-20] MEDS: IPRATROPIUM NEB FS 0.5 MG/2.5 ML AMPUL.NEB IH SCH ×4 (01:45→19:41)
[2018-12-20] MEDS: REGLAN GT SCH ×4 (05:29→23:31)
[2018-12-20] MEDS: RANITIDINE GT SCH (05:29)
[2018-12-20] MEDS: SIMETHICONE SUSP 40 MG/0.6 ML BOTTLE GT SCH ×4 (05:29→23:31)
[2018-12-20] MEDS: PROSTAT (PYXIS) 30 ML UDC GT SCH ×3 (05:29→21:16)
[2018-12-20] MEDS: LACOSAMIDE 50 MG TABLET GT SCH ×2 (05:29→17:43)
[2018-12-20] MEDS: BLOOD SUGAR DIAGNOSTIC 1 EACH STRIP IN SCH ×4 (05:30→23:31)
[2018-12-20] MEDS: INSULIN REGULAR, HUMAN 100 UNIT/ML 10 ML VIAL SQ SCH ×4 (05:32→23:32)
--- NOTE | 2018-12-20 06:22 | NUR ---
Resident awake and calm. went out for dialysis at [facility] per [facility]. vital signs stable. Appears comfortable. Trach secured and intact. on aerosol at 40% fio2. No signs of resp distress. All emergency equipment taken/ambu- bag and back up trach w/ pt. Jeremiah cath on left chest intact, with dry/clean dressing.
[2018-12-20] MEDS: CHLORHEXIDINE GLUCONATE 15 ML UDC MM SCH ×2 (09:00→21:16)
[2018-12-20] MEDS: VITS A AND D/WHITE PET/LANOLIN 5 GM PACKET TP SCH ×2 (09:00→21:17)
[2018-12-20] MEDS: LINAGLIPTIN 5 MG TABLET GT SCH (09:00)
[2018-12-20] MEDS: HYDROGEN PEROXIDE 480 ML BOTTLE TP SCH ×2 (09:00→21:16)
[2018-12-20] MEDS: POTASSIUM CHLORIDE 20 MEQ POWDER PACKET GT SCH (09:00)
[2018-12-20] MEDS: MINERAL OIL/PETROL OINT 396 GM JAR TP SCH ×2 (09:00→21:16)
[2018-12-20] MEDS: DORZOLAMIDE OPTH 2% 10 ML BOTTLE EACHEYE SCH ×3 (09:00→17:43)
[2018-12-20] MEDS: Z GUARD REMEDY 4 OZ OINT TP SCH ×2 (09:00→21:17)
[2018-12-20] MEDS: FINASTERIDE (5 MG) 5 MG TABLET GT SCH (09:00)
[2018-12-20] MEDS: ACIDOPHILUS/BULGARICUS 1 EACH TAB.CHEW GT SCH (09:00)
[2018-12-20] MEDS: ASCORBIC ACID 500 MG TABLET GT SCH (09:00)
[2018-12-20] MEDS: CARVEDILOL 6.25 MG TABLET GT SCH ×2 (09:00→21:16)
[2018-12-20] MEDS: VIT B CMPLX 3/FA/VIT C/BIOTIN 1 TAB TABLET GT SCH (09:00)
--- NOTE | 2018-12-20 10:35 | NUR ---
Resident returned from S/P hemodialysis treatment, no s/s of any complications noted. No bleeding noted. Afebrile. LT upper chest subclavian permacath intact, covered with dressing, dry and clean. No respiratory distress noted. kept comfortable in bed.
--- NOTE | 2018-12-20 11:06 | NUR ---
RT NOTE: PATIENT RECEIVED ON COOL AEROSOL. PATIENT IS TOLERATING WELL. NURSE AWARE.
[2018-12-20] MEDS: ATORVASTATIN 10 MG TABLET GT SCH (21:17)
[2018-12-20] MEDS: TAMSULOSIN 0.4 MG CAP.SR.24H PO SCH (21:17)
[2018-12-20] MEDS: LATANOPROST EYE DROP 0.005% 2.5 ML BOTTLE EACHEYE SCH (21:17)
[2018-12-21] VITALS (7 sets, daily range): BP systolic 123–142; BP diastolic 50–78
[2018-12-21] MEDS: IPRATROPIUM NEB FS 0.5 MG/2.5 ML AMPUL.NEB IH SCH ×4 (00:41→19:38)
[2018-12-21] MEDS: BLOOD SUGAR DIAGNOSTIC 1 EACH STRIP IN SCH ×4 (05:41→23:26)
[2018-12-21] MEDS: LACOSAMIDE 50 MG TABLET GT SCH ×2 (05:41→17:29)
[2018-12-21] MEDS: RANITIDINE GT SCH (05:41)
[2018-12-21] MEDS: REGLAN GT SCH ×4 (05:41→23:28)
[2018-12-21] MEDS: INSULIN REGULAR, HUMAN 100 UNIT/ML 10 ML VIAL SQ SCH ×4 (05:41→23:28)
[2018-12-21] MEDS: SIMETHICONE SUSP 40 MG/0.6 ML BOTTLE GT SCH ×4 (05:41→23:28)
[2018-12-21] MEDS: PROSTAT (PYXIS) 30 ML UDC GT SCH ×3 (05:41→20:02)
[2018-12-21] MEDS: NEPRO 1,000 ML BOTTLE GT PRN (05:45)
[2018-12-21] MEDS: CARVEDILOL 6.25 MG TABLET GT SCH ×2 (08:32→20:01)
[2018-12-21] MEDS: DORZOLAMIDE OPTH 2% 10 ML BOTTLE EACHEYE SCH ×3 (08:32→17:29)
[2018-12-21] MEDS: VIT B CMPLX 3/FA/VIT C/BIOTIN 1 TAB TABLET GT SCH (08:33)
[2018-12-21] MEDS: FINASTERIDE (5 MG) 5 MG TABLET GT SCH (08:33)
[2018-12-21] MEDS: ACIDOPHILUS/BULGARICUS 1 EACH TAB.CHEW GT SCH (08:33)
[2018-12-21] MEDS: ASCORBIC ACID 500 MG TABLET GT SCH (08:33)
[2018-12-21] MEDS: POTASSIUM CHLORIDE 20 MEQ POWDER PACKET GT SCH (08:33)
[2018-12-21] MEDS: LINAGLIPTIN 5 MG TABLET GT SCH (08:33)
[2018-12-21] MEDS: CHLORHEXIDINE GLUCONATE 15 ML UDC MM SCH ×2 (09:00→20:02)
[2018-12-21] MEDS: HYDROGEN PEROXIDE 480 ML BOTTLE TP SCH ×2 (09:00→20:04)
[2018-12-21] MEDS: VITS A AND D/WHITE PET/LANOLIN 5 GM PACKET TP SCH ×2 (09:00→20:05)
[2018-12-21] MEDS: Z GUARD REMEDY 2 OZ OINT TP SCH ×2 (09:00→20:04)
[2018-12-21] MEDS: MINERAL OIL/PETROL OINT 396 GM JAR TP SCH ×2 (09:00→20:03)
[2018-12-21] MEDS: Z GUARD REMEDY 4 OZ OINT TP SCH ×2 (09:00→20:04)
--- NOTE | 2018-12-21 10:09 | NUR ---
IDT meeting was held today. Resident's son [place] attend it over conference call. Son was informed resident is up in the chair. Son was happy to know that and had no further concerns. Dr. Ramírez and the interdisciplinary team discussed the current plan of care in detail. Current orders as well as treatments and medications were reviewed.
[2018-12-21] MEDS: ATORVASTATIN 10 MG TABLET GT SCH (21:36)
[2018-12-21] MEDS: LATANOPROST EYE DROP 0.005% 2.5 ML BOTTLE EACHEYE SCH (21:36)
[2018-12-21] MEDS: TAMSULOSIN 0.4 MG CAP.SR.24H PO SCH (21:37)
[2018-12-22] VITALS (8 sets, daily range): BP systolic 95–145; BP diastolic 64–86
[2018-12-22] MEDS: IPRATROPIUM NEB FS 0.5 MG/2.5 ML AMPUL.NEB IH SCH ×4 (01:23→18:48)
[2018-12-22] MEDS: NEPRO 1,000 ML BOTTLE GT PRN (02:20)
[2018-12-22] MEDS: PROSTAT (PYXIS) 30 ML UDC GT SCH ×3 (05:08→20:36)
[2018-12-22] MEDS: REGLAN GT SCH ×4 (05:08→23:39)
[2018-12-22] MEDS: SIMETHICONE SUSP 40 MG/0.6 ML BOTTLE GT SCH ×4 (05:09→23:39)
[2018-12-22] MEDS: LACOSAMIDE 50 MG TABLET GT SCH ×2 (05:10→18:08)
[2018-12-22] MEDS: RANITIDINE GT SCH (05:10)
[2018-12-22] MEDS: BLOOD SUGAR DIAGNOSTIC 1 EACH STRIP IN SCH ×4 (05:31→23:39)
[2018-12-22] MEDS: INSULIN REGULAR, HUMAN 100 UNIT/ML 10 ML VIAL SQ SCH ×4 (05:33→23:39)
--- NOTE | 2018-12-22 06:00 | NUR ---
Patient picked up by Ambulance crew for dialysis with stable vital signs.
[2018-12-22] MEDS: CARVEDILOL 6.25 MG TABLET GT SCH ×2 (09:00→20:36)
[2018-12-22] MEDS: MINERAL OIL/PETROL OINT 396 GM JAR TP SCH ×2 (09:00→20:36)
[2018-12-22] MEDS: FINASTERIDE (5 MG) 5 MG TABLET GT SCH (09:00)
[2018-12-22] MEDS: CHLORHEXIDINE GLUCONATE 15 ML UDC MM SCH ×2 (09:00→20:36)
[2018-12-22] MEDS: POTASSIUM CHLORIDE 20 MEQ POWDER PACKET GT SCH (09:00)
[2018-12-22] MEDS: DORZOLAMIDE OPTH 2% 10 ML BOTTLE EACHEYE SCH ×3 (09:00→16:28)
[2018-12-22] MEDS: ASCORBIC ACID 500 MG TABLET GT SCH (09:00)
[2018-12-22] MEDS: Z GUARD REMEDY 4 OZ OINT TP SCH ×2 (09:00→20:37)
[2018-12-22] MEDS: VIT B CMPLX 3/FA/VIT C/BIOTIN 1 TAB TABLET GT SCH (09:00)
[2018-12-22] MEDS: VITS A AND D/WHITE PET/LANOLIN 5 GM PACKET TP SCH ×2 (09:00→20:37)
[2018-12-22] MEDS: LINAGLIPTIN 5 MG TABLET GT SCH (09:00)
[2018-12-22] MEDS: HYDROGEN PEROXIDE 480 ML BOTTLE TP SCH ×2 (09:00→20:36)
[2018-12-22] MEDS: Z GUARD REMEDY 2 OZ OINT TP SCH ×2 (09:00→20:37)
[2018-12-22] MEDS: ACIDOPHILUS/BULGARICUS 1 EACH TAB.CHEW GT SCH (09:00)
[2018-12-22] MEDS: TAMSULOSIN 0.4 MG CAP.SR.24H PO SCH (21:51)
[2018-12-22] MEDS: LATANOPROST EYE DROP 0.005% 2.5 ML BOTTLE EACHEYE SCH (21:51)
[2018-12-22] MEDS: ATORVASTATIN 10 MG TABLET GT SCH (21:51)
[2018-12-23] VITALS (8 sets, daily range): BP systolic 111–141; BP diastolic 56–78
[2018-12-23] MEDS: IPRATROPIUM NEB FS 0.5 MG/2.5 ML AMPUL.NEB IH SCH ×4 (01:04→19:51)
[2018-12-23] MEDS: NEPRO 1,000 ML BOTTLE GT PRN (04:15)
[2018-12-23] MEDS: PROSTAT (PYXIS) 30 ML UDC GT SCH ×3 (04:15→21:17)
[2018-12-23] MEDS: RANITIDINE GT SCH (05:41)
[2018-12-23] MEDS: SIMETHICONE SUSP 40 MG/0.6 ML BOTTLE GT SCH ×4 (05:41→23:50)
[2018-12-23] MEDS: REGLAN GT SCH ×4 (05:41→23:50)
[2018-12-23] MEDS: LACOSAMIDE 50 MG TABLET GT SCH ×2 (05:41→17:44)
[2018-12-23] MEDS: BLOOD SUGAR DIAGNOSTIC 1 EACH STRIP IN SCH ×4 (05:41→23:50)
[2018-12-23] MEDS: INSULIN REGULAR, HUMAN 100 UNIT/ML 10 ML VIAL SQ SCH ×4 (05:42→23:53)
[2018-12-23] MEDS: MINERAL OIL/PETROL OINT 396 GM JAR TP SCH ×2 (09:00→21:17)
[2018-12-23] MEDS: Z GUARD REMEDY 2 OZ OINT TP SCH ×2 (09:00→21:17)
[2018-12-23] MEDS: HYDROGEN PEROXIDE 480 ML BOTTLE TP SCH ×2 (09:00→21:17)
[2018-12-23] MEDS: Z GUARD REMEDY 4 OZ OINT TP SCH ×2 (09:00→21:32)
[2018-12-23] MEDS: VITS A AND D/WHITE PET/LANOLIN 5 GM PACKET TP SCH ×2 (09:00→21:32)
[2018-12-23] MEDS: POTASSIUM CHLORIDE 20 MEQ POWDER PACKET GT SCH (09:53)
[2018-12-23] MEDS: DORZOLAMIDE OPTH 2% 10 ML BOTTLE EACHEYE SCH ×3 (09:53→17:37)
[2018-12-23] MEDS: CARVEDILOL 6.25 MG TABLET GT SCH ×2 (09:53→21:17)
[2018-12-23] MEDS: ACIDOPHILUS/BULGARICUS 1 EACH TAB.CHEW GT SCH (09:54)
[2018-12-23] MEDS: FINASTERIDE (5 MG) 5 MG TABLET GT SCH (09:54)
[2018-12-23] MEDS: LINAGLIPTIN 5 MG TABLET GT SCH (09:55)
[2018-12-23] MEDS: ASCORBIC ACID 500 MG TABLET GT SCH (09:55)
[2018-12-23] MEDS: CHLORHEXIDINE GLUCONATE 15 ML UDC MM SCH ×2 (09:55→21:17)
[2018-12-23] MEDS: VIT B CMPLX 3/FA/VIT C/BIOTIN 1 TAB TABLET GT SCH (09:57)
--- NOTE | 2018-12-23 20:22 | NUR ---
RT PATIENT REC'D ON COOL AEROSOL @ 28%. PLACED PATIENT ON MECHANICAL VENTILATION W/ CURRENT CPAP SETTINGS PER MD ORDER. CUFF CHECKED VIA POSTAGE MACHINE OPERATOR. VENT PLUGGED INTO RED OUTLET. ALARMS ON AND AUDIBLE. TX GIVEN, NO ADVERSE REACTIONS NOTED. SX DONE, MODERATE THICK YELLOW/WHITE SECRETIONS NOTED. HME REPLACED. WILL CONTINUE TO MONITOR. Addendum: 12/23/18 at 2022 by RAYRAY KRUEGER RT Amended: Links added.
[2018-12-23] MEDS: ATORVASTATIN 10 MG TABLET GT SCH (21:32)
[2018-12-23] MEDS: TAMSULOSIN 0.4 MG CAP.SR.24H PO SCH (21:32)
[2018-12-23] MEDS: LATANOPROST EYE DROP 0.005% 2.5 ML BOTTLE EACHEYE SCH (21:32)
[2018-12-24] VITALS (7 sets, daily range): BP systolic 122–142; BP diastolic 55–79
[2018-12-24] MEDS: IPRATROPIUM NEB FS 0.5 MG/2.5 ML AMPUL.NEB IH SCH ×4 (01:43→19:53)
[2018-12-24] MEDS: PROSTAT (PYXIS) 30 ML UDC GT SCH ×3 (05:35→20:28)
[2018-12-24] MEDS: REGLAN GT SCH ×3 (05:35→17:08)
[2018-12-24] MEDS: SIMETHICONE SUSP 40 MG/0.6 ML BOTTLE GT SCH ×3 (05:35→17:09)
[2018-12-24] MEDS: LACOSAMIDE 50 MG TABLET GT SCH ×2 (05:36→17:09)
[2018-12-24] MEDS: RANITIDINE GT SCH (05:36)
[2018-12-24] MEDS: BLOOD SUGAR DIAGNOSTIC 1 EACH STRIP IN SCH ×3 (05:36→17:09)
[2018-12-24] MEDS: INSULIN REGULAR, HUMAN 100 UNIT/ML 10 ML VIAL SQ SCH ×3 (05:37→17:50)
[2018-12-24] MEDS: NEPRO 1,000 ML BOTTLE GT PRN (05:38)
[2018-12-24] MEDS: POTASSIUM CHLORIDE 20 MEQ POWDER PACKET GT SCH (08:05)
[2018-12-24] MEDS: DORZOLAMIDE OPTH 2% 10 ML BOTTLE EACHEYE SCH ×3 (08:05→17:08)
[2018-12-24] MEDS: CHLORHEXIDINE GLUCONATE 15 ML UDC MM SCH ×2 (08:05→20:28)
[2018-12-24] MEDS: ACIDOPHILUS/BULGARICUS 1 EACH TAB.CHEW GT SCH (08:05)
[2018-12-24] MEDS: CARVEDILOL 6.25 MG TABLET GT SCH ×2 (08:05→20:28)
[2018-12-24] MEDS: LINAGLIPTIN 5 MG TABLET GT SCH (08:05)
[2018-12-24] MEDS: FINASTERIDE (5 MG) 5 MG TABLET GT SCH (08:05)
[2018-12-24] MEDS: VIT B CMPLX 3/FA/VIT C/BIOTIN 1 TAB TABLET GT SCH (08:05)
[2018-12-24] MEDS: ASCORBIC ACID 500 MG TABLET GT SCH (08:05)
[2018-12-24] MEDS: Z GUARD REMEDY 4 OZ OINT TP SCH ×2 (09:00→20:30)
[2018-12-24] MEDS: HYDROGEN PEROXIDE 480 ML BOTTLE TP SCH ×2 (09:00→20:29)
[2018-12-24] MEDS: MINERAL OIL/PETROL OINT 396 GM JAR TP SCH ×2 (09:00→20:28)
[2018-12-24] MEDS: VITS A AND D/WHITE PET/LANOLIN 5 GM PACKET TP SCH ×2 (09:00→20:30)
[2018-12-24] MEDS: Z GUARD REMEDY 2 OZ OINT TP SCH ×2 (09:00→20:29)
--- NOTE | 2018-12-24 20:19 | NUR ---
RT PATIENT REC'D ON COOL AEROSOL @ 28%. PLACED PATIENT ON MECHANICAL VENTILATION PER MD ORDER. CUFF CHECKED VIA REHAB SPECIALIST. VENT PLUGGED INTO RED OUTLET. NO RESPIRATORY DISTRESS NOTED AT THIS TIME. ALARMS ON AND AUDIBLE. TX GIVEN, NO ADVERSE REACTIONS NOTED. SX DONE, MODERATE THICK YELLOW/WHITE SECRETIONS NOTED. WILL CONTINUE TO MONITOR. Addendum: 12/24/18 at 2020 by RAYRAY KRUEGER RT Amended: Links added.
[2018-12-24] MEDS: LATANOPROST EYE DROP 0.005% 2.5 ML BOTTLE EACHEYE SCH (22:00)
[2018-12-24] MEDS: TAMSULOSIN 0.4 MG CAP.SR.24H PO SCH (22:00)
[2018-12-24] MEDS: ATORVASTATIN 10 MG TABLET GT SCH (22:00)
[2018-12-25] VITALS (8 sets, daily range): BP systolic 101–138; BP diastolic 46–77
[2018-12-25] MEDS: SIMETHICONE SUSP 40 MG/0.6 ML BOTTLE GT SCH ×5 (00:26→23:17)
[2018-12-25] MEDS: REGLAN GT SCH ×5 (00:26→23:17)
[2018-12-25] MEDS: BLOOD SUGAR DIAGNOSTIC 1 EACH STRIP IN SCH ×5 (00:26→23:17)
[2018-12-25] MEDS: INSULIN REGULAR, HUMAN 100 UNIT/ML 10 ML VIAL SQ SCH ×5 (00:28→23:18)
[2018-12-25] MEDS: IPRATROPIUM NEB FS 0.5 MG/2.5 ML AMPUL.NEB IH SCH ×4 (02:03→19:30)
[2018-12-25] MEDS: RANITIDINE GT SCH (05:02)
[2018-12-25] MEDS: PROSTAT (PYXIS) 30 ML UDC GT SCH ×3 (05:02→20:38)
[2018-12-25] MEDS: LACOSAMIDE 50 MG TABLET GT SCH ×2 (05:02→17:22)
[2018-12-25] MEDS: VIT B CMPLX 3/FA/VIT C/BIOTIN 1 TAB TABLET GT SCH (10:30)
[2018-12-25] MEDS: ACIDOPHILUS/BULGARICUS 1 EACH TAB.CHEW GT SCH (10:30)
[2018-12-25] MEDS: FINASTERIDE (5 MG) 5 MG TABLET GT SCH (10:30)
[2018-12-25] MEDS: CARVEDILOL 6.25 MG TABLET GT SCH ×2 (10:30→20:38)
[2018-12-25] MEDS: MINERAL OIL/PETROL OINT 396 GM JAR TP SCH ×2 (10:30→20:38)
[2018-12-25] MEDS: LINAGLIPTIN 5 MG TABLET GT SCH (10:30)
[2018-12-25] MEDS: ASCORBIC ACID 500 MG TABLET GT SCH (10:30)
[2018-12-25] MEDS: CHLORHEXIDINE GLUCONATE 15 ML UDC MM SCH ×2 (10:30→20:38)
[2018-12-25] MEDS: DORZOLAMIDE OPTH 2% 10 ML BOTTLE EACHEYE SCH ×3 (10:30→17:22)
[2018-12-25] MEDS: POTASSIUM CHLORIDE 20 MEQ POWDER PACKET GT SCH (10:30)
[2018-12-25] MEDS: Z GUARD REMEDY 4 OZ OINT TP SCH ×2 (11:37→20:38)
[2018-12-25] MEDS: VITS A AND D/WHITE PET/LANOLIN 5 GM PACKET TP SCH ×2 (11:37→20:38)
[2018-12-25] MEDS: HYDROGEN PEROXIDE 480 ML BOTTLE TP SCH ×2 (11:37→20:38)
[2018-12-25] MEDS: Z GUARD REMEDY 2 OZ OINT TP SCH ×2 (11:37→20:38)
[2018-12-25] MEDS: ATORVASTATIN 10 MG TABLET GT SCH (21:31)
[2018-12-25] MEDS: TAMSULOSIN 0.4 MG CAP.SR.24H PO SCH (21:31)
[2018-12-25] MEDS: LATANOPROST EYE DROP 0.005% 2.5 ML BOTTLE EACHEYE SCH (21:31)
[2018-12-26 01:26] VITALS: BP 130/66
[2018-12-26] MEDS: IPRATROPIUM NEB FS 0.5 MG/2.5 ML AMPUL.NEB IH SCH ×4 (01:35→19:50)
[2018-12-26 05:23] VITALS: BP 125/62
[2018-12-26] MEDS: LACOSAMIDE 50 MG TABLET GT SCH ×2 (05:38→17:16)
[2018-12-26] MEDS: PROSTAT (PYXIS) 30 ML UDC GT SCH ×3 (05:38→21:30)
[2018-12-26] MEDS: SIMETHICONE SUSP 40 MG/0.6 ML BOTTLE GT SCH ×4 (05:38→23:26)
[2018-12-26] MEDS: REGLAN GT SCH ×4 (05:38→23:26)
[2018-12-26] MEDS: RANITIDINE GT SCH (05:38)
[2018-12-26] MEDS: BLOOD SUGAR DIAGNOSTIC 1 EACH STRIP IN SCH ×4 (05:54→23:26)
[2018-12-26] MEDS: INSULIN REGULAR, HUMAN 100 UNIT/ML 10 ML VIAL SQ SCH ×4 (05:55→23:27)
[2018-12-26 07:28] VITALS: BP 140/75
--- NOTE | 2018-12-26 08:00 | NUR ---
RT PLACED PT ON CA 28% 5L [facility] CONT TO MONITOR SP02 100% HR 80 RR 16 Addendum: 12/26/18 at 0802 by MAGDY MEJIA RT Amended: Links added.
[2018-12-26] MEDS: DORZOLAMIDE OPTH 2% 10 ML BOTTLE EACHEYE SCH ×3 (09:45→17:16)
[2018-12-26] MEDS: CARVEDILOL 6.25 MG TABLET GT SCH ×2 (09:46→21:30)
[2018-12-26] MEDS: POTASSIUM CHLORIDE 20 MEQ POWDER PACKET GT SCH (09:46)
[2018-12-26] MEDS: ASCORBIC ACID 500 MG TABLET GT SCH (09:46)
[2018-12-26] MEDS: VITS A AND D/WHITE PET/LANOLIN 5 GM PACKET TP SCH ×2 (09:46→21:30)
[2018-12-26] MEDS: VIT B CMPLX 3/FA/VIT C/BIOTIN 1 TAB TABLET GT SCH (09:46)
[2018-12-26] MEDS: ACIDOPHILUS/BULGARICUS 1 EACH TAB.CHEW GT SCH (09:46)
[2018-12-26] MEDS: HYDROGEN PEROXIDE 480 ML BOTTLE TP SCH ×2 (09:46→21:30)
[2018-12-26] MEDS: Z GUARD REMEDY 4 OZ OINT TP SCH ×2 (09:46→21:30)
[2018-12-26] MEDS: Z GUARD REMEDY 2 OZ OINT TP SCH ×2 (09:46→21:30)
[2018-12-26] MEDS: CHLORHEXIDINE GLUCONATE 15 ML UDC MM SCH ×2 (09:46→21:30)
[2018-12-26] MEDS: MINERAL OIL/PETROL OINT 396 GM JAR TP SCH ×2 (09:46→21:30)
[2018-12-26] MEDS: LINAGLIPTIN 5 MG TABLET GT SCH (09:46)
[2018-12-26] MEDS: FINASTERIDE (5 MG) 5 MG TABLET GT SCH (09:46)
[2018-12-26] MEDS: NEPRO 1,000 ML BOTTLE GT PRN (12:02)
[2018-12-26 19:03] VITALS: BP 140/75
[2018-12-26 19:39] VITALS: BP 123/68
--- NOTE | 2018-12-26 20:29 | NUR ---
RT PATIENT REC'D ON COOL AEROSOL @ 28%. PLACED PATIENT ON MECHANICAL VENTILATION PER MD ORDER. CUFF CHECKED VIA REGISTER IN CHANCERY. VENT PLUGGED INTO RED OUTLET. NO RESPIRATORY DISTRESS NOTED AT THIS TIME. ALARMS ON AND AUDIBLE. TX GIVEN, NO ADVERSE REACTIONS NOTED. SX DONE, MODERATE THICK YELLOW/WHITE SECRETIONS NOTED. WILL CONTINUE TO MONITOR. Addendum: 12/26/18 at 2030 by RAYRAY KRUEGER RT Amended: Links added.
[2018-12-26 21:24] VITALS: BP 123/68
[2018-12-26] MEDS: TAMSULOSIN 0.4 MG CAP.SR.24H PO SCH (21:30)
[2018-12-26] MEDS: LATANOPROST EYE DROP 0.005% 2.5 ML BOTTLE EACHEYE SCH (21:30)
[2018-12-26] MEDS: ATORVASTATIN 10 MG TABLET GT SCH (21:30)
[2018-12-27 01:04] VITALS: BP 131/64
[2018-12-27] MEDS: IPRATROPIUM NEB FS 0.5 MG/2.5 ML AMPUL.NEB IH SCH ×4 (01:47→19:17)
[2018-12-27 05:27] VITALS: BP 125/66
[2018-12-27] MEDS: PROSTAT (PYXIS) 30 ML UDC GT SCH ×3 (05:50→20:42)
[2018-12-27] MEDS: REGLAN GT SCH ×4 (05:50→23:29)
[2018-12-27] MEDS: SIMETHICONE SUSP 40 MG/0.6 ML BOTTLE GT SCH ×4 (05:50→23:29)
[2018-12-27] MEDS: BLOOD SUGAR DIAGNOSTIC 1 EACH STRIP IN SCH ×4 (05:51→23:30)
[2018-12-27] MEDS: RANITIDINE GT SCH (05:51)
[2018-12-27] MEDS: LACOSAMIDE 50 MG TABLET GT SCH ×2 (05:51→17:04)
[2018-12-27] MEDS: INSULIN REGULAR, HUMAN 100 UNIT/ML 10 ML VIAL SQ SCH ×4 (05:52→23:30)
[2018-12-27] MEDS: MINERAL OIL/PETROL OINT 396 GM JAR TP SCH ×2 (10:45→20:42)
[2018-12-27] MEDS: Z GUARD REMEDY 4 OZ OINT TP SCH ×2 (10:45→20:42)
[2018-12-27] MEDS: VIT B CMPLX 3/FA/VIT C/BIOTIN 1 TAB TABLET GT SCH (10:45)
[2018-12-27] MEDS: ACIDOPHILUS/BULGARICUS 1 EACH TAB.CHEW GT SCH (10:45)
[2018-12-27] MEDS: POTASSIUM CHLORIDE 20 MEQ POWDER PACKET GT SCH (10:45)
[2018-12-27] MEDS: CHLORHEXIDINE GLUCONATE 15 ML UDC MM SCH ×2 (10:45→20:42)
[2018-12-27] MEDS: HYDROGEN PEROXIDE 480 ML BOTTLE TP SCH ×2 (10:45→20:42)
[2018-12-27] MEDS: VITS A AND D/WHITE PET/LANOLIN 5 GM PACKET TP SCH ×2 (10:45→20:42)
[2018-12-27] MEDS: CARVEDILOL 6.25 MG TABLET GT SCH ×2 (10:45→20:42)
[2018-12-27] MEDS: ASCORBIC ACID 500 MG TABLET GT SCH (10:45)
[2018-12-27] MEDS: Z GUARD REMEDY 2 OZ OINT TP SCH ×2 (10:45→20:42)
[2018-12-27] MEDS: DORZOLAMIDE OPTH 2% 10 ML BOTTLE EACHEYE SCH ×3 (10:45→16:33)
[2018-12-27] MEDS: LINAGLIPTIN 5 MG TABLET GT SCH (10:45)
[2018-12-27] MEDS: FINASTERIDE (5 MG) 5 MG TABLET GT SCH (10:45)
[2018-12-27 16:03] VITALS: BP 116/70
[2018-12-27 19:00] VITALS: BP 131/64
[2018-12-27 20:42] VITALS: BP 115/58
[2018-12-27] MEDS: TAMSULOSIN 0.4 MG CAP.SR.24H PO SCH (21:15)
[2018-12-27] MEDS: ATORVASTATIN 10 MG TABLET GT SCH (21:15)
[2018-12-27] MEDS: LATANOPROST EYE DROP 0.005% 2.5 ML BOTTLE EACHEYE SCH (21:15)
[2018-12-28] MEDS: IPRATROPIUM NEB FS 0.5 MG/2.5 ML AMPUL.NEB IH SCH ×4 (01:01→20:07)
[2018-12-28 01:21] VITALS: BP 116/57
[2018-12-28] MEDS: PROSTAT (PYXIS) 30 ML UDC GT SCH ×3 (05:42→20:57)
[2018-12-28] MEDS: REGLAN GT SCH ×3 (05:42→17:26)
[2018-12-28] MEDS: LACOSAMIDE 50 MG TABLET GT SCH ×2 (05:42→17:26)
[2018-12-28] MEDS: RANITIDINE GT SCH (05:42)
[2018-12-28] MEDS: SIMETHICONE SUSP 40 MG/0.6 ML BOTTLE GT SCH ×3 (05:42→17:26)
[2018-12-28] MEDS: BLOOD SUGAR DIAGNOSTIC 1 EACH STRIP IN SCH ×3 (06:13→17:26)
[2018-12-28] MEDS: NEPRO 1,000 ML BOTTLE GT PRN (06:14)
[2018-12-28] MEDS: INSULIN REGULAR, HUMAN 100 UNIT/ML 10 ML VIAL SQ SCH ×3 (06:14→17:31)
[2018-12-28 06:16] VITALS: BP 126/62
[2018-12-28 08:04] VITALS: BP 113/52
[2018-12-28] MEDS: ASCORBIC ACID 500 MG TABLET GT SCH (09:19)
[2018-12-28] MEDS: LINAGLIPTIN 5 MG TABLET GT SCH (09:19)
[2018-12-28] MEDS: POTASSIUM CHLORIDE 20 MEQ POWDER PACKET GT SCH (09:19)
[2018-12-28] MEDS: FINASTERIDE (5 MG) 5 MG TABLET GT SCH (09:19)
[2018-12-28] MEDS: VIT B CMPLX 3/FA/VIT C/BIOTIN 1 TAB TABLET GT SCH (09:19)
[2018-12-28] MEDS: ACIDOPHILUS/BULGARICUS 1 EACH TAB.CHEW GT SCH (09:19)
[2018-12-28] MEDS: CHLORHEXIDINE GLUCONATE 15 ML UDC MM SCH ×2 (09:19→20:57)
[2018-12-28] MEDS: DORZOLAMIDE OPTH 2% 10 ML BOTTLE EACHEYE SCH ×3 (09:19→17:26)
[2018-12-28] MEDS: CARVEDILOL 6.25 MG TABLET GT SCH ×2 (09:19→20:57)
[2018-12-28] MEDS: Z GUARD REMEDY 4 OZ OINT TP SCH ×2 (09:51→20:57)
[2018-12-28] MEDS: VITS A AND D/WHITE PET/LANOLIN 5 GM PACKET TP SCH ×2 (09:51→20:57)
[2018-12-28] MEDS: HYDROGEN PEROXIDE 480 ML BOTTLE TP SCH ×2 (09:51→20:57)
[2018-12-28] MEDS: MINERAL OIL/PETROL OINT 396 GM JAR TP SCH ×2 (09:51→20:57)
[2018-12-28] MEDS: Z GUARD REMEDY 2 OZ OINT TP SCH ×2 (09:51→20:57)
[2018-12-28 15:58] VITALS: BP 113/52
[2018-12-28 19:47] VITALS: BP 134/79
[2018-12-28] MEDS: TAMSULOSIN 0.4 MG CAP.SR.24H PO SCH (21:21)
[2018-12-28] MEDS: ATORVASTATIN 10 MG TABLET GT SCH (21:21)
[2018-12-28] MEDS: LATANOPROST EYE DROP 0.005% 2.5 ML BOTTLE EACHEYE SCH (21:21)
[2018-12-28 22:16] VITALS: BP 130/72
[2018-12-29] VITALS (7 sets, daily range): BP systolic 118–134; BP diastolic 55–81
[2018-12-29] MEDS: INSULIN REGULAR, HUMAN 100 UNIT/ML 10 ML VIAL SQ SCH ×5 (00:11→23:41)
[2018-12-29] MEDS: BLOOD SUGAR DIAGNOSTIC 1 EACH STRIP IN SCH ×5 (00:11→23:40)
[2018-12-29] MEDS: REGLAN GT SCH ×5 (00:11→23:40)
[2018-12-29] MEDS: SIMETHICONE SUSP 40 MG/0.6 ML BOTTLE GT SCH ×5 (00:11→23:40)
[2018-12-29] MEDS: IPRATROPIUM NEB FS 0.5 MG/2.5 ML AMPUL.NEB IH SCH ×4 (01:45→20:25)
--- NOTE | 2018-12-29 03:17 | NUR ---
PT REC'D TRACHED ON COOL AEROSOL AND PT PLACED ON MECH VENT PER MD ORDERS. NO RESP DISTRESS OR SOB NOTED. SX'D FOR MOD AMT OF PALE YELLOW SECRETIONS. ALARMS ARE SET AND AUDIBLE. VENT PLUGGED INTO RED OUTLET. AMBU BAG BEDSIDE. WILL CONTINUE TO MONITOR. Addendum: 12/29/18 at 0318 by PAUL ALMARAZ RT Amended: Links added.
[2018-12-29] MEDS: PROSTAT (PYXIS) 30 ML UDC GT SCH ×3 (05:56→21:35)
[2018-12-29] MEDS: NEPRO 1,000 ML BOTTLE GT PRN (05:57)
[2018-12-29] MEDS: LACOSAMIDE 50 MG TABLET GT SCH ×2 (05:57→17:46)
[2018-12-29] MEDS: RANITIDINE GT SCH (05:57)
--- NOTE | 2018-12-29 06:21 | NUR ---
Pt picked up by [facility] transport team for dialysis- vitals stable- pt's trach and Gt in place ,patent and secured. Pt awake and calm with no episode of acute resp distress. On cool aerosol.
[2018-12-29] MEDS: CARVEDILOL 6.25 MG TABLET GT SCH ×2 (09:00→21:35)
[2018-12-29] MEDS: POTASSIUM CHLORIDE 20 MEQ POWDER PACKET GT SCH (10:45)
[2018-12-29] MEDS: CHLORHEXIDINE GLUCONATE 15 ML UDC MM SCH ×2 (10:45→21:35)
[2018-12-29] MEDS: ACIDOPHILUS/BULGARICUS 1 EACH TAB.CHEW GT SCH (10:45)
[2018-12-29] MEDS: ASCORBIC ACID 500 MG TABLET GT SCH (10:45)
[2018-12-29] MEDS: FINASTERIDE (5 MG) 5 MG TABLET GT SCH (10:45)
[2018-12-29] MEDS: LINAGLIPTIN 5 MG TABLET GT SCH (10:45)
[2018-12-29] MEDS: DORZOLAMIDE OPTH 2% 10 ML BOTTLE EACHEYE SCH ×3 (10:45→17:38)
[2018-12-29] MEDS: VIT B CMPLX 3/FA/VIT C/BIOTIN 1 TAB TABLET GT SCH (10:45)
[2018-12-29] MEDS: HYDROGEN PEROXIDE 480 ML BOTTLE TP SCH ×2 (11:15→21:36)
[2018-12-29] MEDS: MINERAL OIL/PETROL OINT 396 GM JAR TP SCH ×2 (11:15→21:36)
[2018-12-29] MEDS: Z GUARD REMEDY 2 OZ OINT TP SCH ×2 (11:15→21:36)
[2018-12-29] MEDS: Z GUARD REMEDY 4 OZ OINT TP SCH ×2 (11:15→21:36)
[2018-12-29] MEDS: VITS A AND D/WHITE PET/LANOLIN 5 GM PACKET TP SCH ×2 (11:15→21:36)
[2018-12-29] MEDS: ATORVASTATIN 10 MG TABLET GT SCH (21:36)
[2018-12-29] MEDS: TAMSULOSIN 0.4 MG CAP.SR.24H PO SCH (21:36)
[2018-12-29] MEDS: LATANOPROST EYE DROP 0.005% 2.5 ML BOTTLE EACHEYE SCH (21:36)
[2018-12-30] VITALS (7 sets, daily range): BP systolic 112–132; BP diastolic 50–76
[2018-12-30] MEDS: IPRATROPIUM NEB FS 0.5 MG/2.5 ML AMPUL.NEB IH SCH ×4 (01:45→19:49)
[2018-12-30] MEDS: PROSTAT (PYXIS) 30 ML UDC GT SCH ×3 (05:36→20:37)
[2018-12-30] MEDS: LACOSAMIDE 50 MG TABLET GT SCH ×2 (05:36→17:48)
[2018-12-30] MEDS: RANITIDINE GT SCH (05:36)
[2018-12-30] MEDS: REGLAN GT SCH ×3 (05:36→17:48)
[2018-12-30] MEDS: SIMETHICONE SUSP 40 MG/0.6 ML BOTTLE GT SCH ×3 (05:36→17:48)
[2018-12-30] MEDS: BLOOD SUGAR DIAGNOSTIC 1 EACH STRIP IN SCH ×3 (05:36→17:48)
[2018-12-30] MEDS: INSULIN REGULAR, HUMAN 100 UNIT/ML 10 ML VIAL SQ SCH ×3 (05:37→17:49)
[2018-12-30] MEDS: NEPRO 1,000 ML BOTTLE GT PRN ×2 (05:38→20:48)
--- NOTE | 2018-12-30 09:00 | NUR ---
Seen and examined by Shaan Bardales, no new order given.
[2018-12-30] MEDS: FINASTERIDE (5 MG) 5 MG TABLET GT SCH (09:19)
[2018-12-30] MEDS: ASCORBIC ACID 500 MG TABLET GT SCH (09:19)
[2018-12-30] MEDS: POTASSIUM CHLORIDE 20 MEQ POWDER PACKET GT SCH (09:19)
[2018-12-30] MEDS: CARVEDILOL 6.25 MG TABLET GT SCH ×2 (09:19→20:37)
[2018-12-30] MEDS: MINERAL OIL/PETROL OINT 396 GM JAR TP SCH ×2 (09:19→20:37)
[2018-12-30] MEDS: VIT B CMPLX 3/FA/VIT C/BIOTIN 1 TAB TABLET GT SCH (09:19)
[2018-12-30] MEDS: Z GUARD REMEDY 2 OZ OINT TP SCH ×2 (09:19→20:37)
[2018-12-30] MEDS: CHLORHEXIDINE GLUCONATE 15 ML UDC MM SCH ×2 (09:19→20:37)
[2018-12-30] MEDS: LINAGLIPTIN 5 MG TABLET GT SCH (09:19)
[2018-12-30] MEDS: HYDROGEN PEROXIDE 480 ML BOTTLE TP SCH ×2 (09:19→20:37)
[2018-12-30] MEDS: DORZOLAMIDE OPTH 2% 10 ML BOTTLE EACHEYE SCH ×3 (09:19→16:58)
[2018-12-30] MEDS: ACIDOPHILUS/BULGARICUS 1 EACH TAB.CHEW GT SCH (09:19)
[2018-12-30] MEDS: Z GUARD REMEDY 4 OZ OINT TP SCH ×2 (09:20→20:37)
[2018-12-30] MEDS: VITS A AND D/WHITE PET/LANOLIN 5 GM PACKET TP SCH ×2 (09:20→20:37)
--- NOTE | 2018-12-30 11:00 | NUR ---
Seen and examined by Arlyn Hanks, no new order given.
[2018-12-30] MEDS: ATORVASTATIN 10 MG TABLET GT SCH (21:51)
[2018-12-30] MEDS: LATANOPROST EYE DROP 0.005% 2.5 ML BOTTLE EACHEYE SCH (21:51)
[2018-12-30] MEDS: TAMSULOSIN 0.4 MG CAP.SR.24H PO SCH (21:51)
[2018-12-31] VITALS (7 sets, daily range): BP systolic 114–146; BP diastolic 60–76
[2018-12-31] MEDS: REGLAN GT SCH ×5 (00:06→23:26)
[2018-12-31] MEDS: BLOOD SUGAR DIAGNOSTIC 1 EACH STRIP IN SCH ×5 (00:06→23:26)
[2018-12-31] MEDS: SIMETHICONE SUSP 40 MG/0.6 ML BOTTLE GT SCH ×5 (00:06→23:26)
[2018-12-31] MEDS: INSULIN REGULAR, HUMAN 100 UNIT/ML 10 ML VIAL SQ SCH ×5 (00:07→23:27)
[2018-12-31] MEDS: IPRATROPIUM NEB FS 0.5 MG/2.5 ML AMPUL.NEB IH SCH ×4 (01:32→19:51)
[2018-12-31] MEDS: LACOSAMIDE 50 MG TABLET GT SCH ×2 (05:51→18:16)
[2018-12-31] MEDS: PROSTAT (PYXIS) 30 ML UDC GT SCH ×3 (05:51→20:46)
[2018-12-31] MEDS: RANITIDINE GT SCH (05:51)
[2018-12-31] MEDS: Z GUARD REMEDY 4 OZ OINT TP SCH ×2 (09:00→20:46)
[2018-12-31] MEDS: HYDROGEN PEROXIDE 480 ML BOTTLE TP SCH ×2 (09:00→20:46)
[2018-12-31] MEDS: VITS A AND D/WHITE PET/LANOLIN 5 GM PACKET TP SCH ×2 (09:00→20:46)
[2018-12-31] MEDS: MINERAL OIL/PETROL OINT 396 GM JAR TP SCH ×2 (09:00→20:46)
[2018-12-31] MEDS: Z GUARD REMEDY 2 OZ OINT TP SCH ×2 (09:00→20:46)
[2018-12-31] MEDS: CARVEDILOL 6.25 MG TABLET GT SCH ×2 (09:33→20:46)
[2018-12-31] MEDS: DORZOLAMIDE OPTH 2% 10 ML BOTTLE EACHEYE SCH ×3 (09:33→17:00)
[2018-12-31] MEDS: ASCORBIC ACID 500 MG TABLET GT SCH (09:34)
[2018-12-31] MEDS: ACIDOPHILUS/BULGARICUS 1 EACH TAB.CHEW GT SCH (09:34)
[2018-12-31] MEDS: LINAGLIPTIN 5 MG TABLET GT SCH (09:34)
[2018-12-31] MEDS: VIT B CMPLX 3/FA/VIT C/BIOTIN 1 TAB TABLET GT SCH (09:34)
[2018-12-31] MEDS: POTASSIUM CHLORIDE 20 MEQ POWDER PACKET GT SCH (09:34)
[2018-12-31] MEDS: CHLORHEXIDINE GLUCONATE 15 ML UDC MM SCH ×2 (09:34→20:46)
[2018-12-31] MEDS: FINASTERIDE (5 MG) 5 MG TABLET GT SCH (09:34)
[2018-12-31] MEDS: ATORVASTATIN 10 MG TABLET GT SCH (21:52)
[2018-12-31] MEDS: TAMSULOSIN 0.4 MG CAP.SR.24H PO SCH (21:52)
[2018-12-31] MEDS: LATANOPROST EYE DROP 0.005% 2.5 ML BOTTLE EACHEYE SCH (21:52)
[2019-01-01] VITALS (7 sets, daily range): BP systolic 99–137; BP diastolic 55–72
[2019-01-01] MEDS: NEPRO 1,000 ML BOTTLE GT PRN (00:57)
[2019-01-01] MEDS: IPRATROPIUM NEB FS 0.5 MG/2.5 ML AMPUL.NEB IH SCH ×4 (02:15→20:08)
[2019-01-01] MEDS: RANITIDINE GT SCH (05:06)
[2019-01-01] MEDS: SIMETHICONE SUSP 40 MG/0.6 ML BOTTLE GT SCH ×4 (05:06→23:33)
[2019-01-01] MEDS: PROSTAT (PYXIS) 30 ML UDC GT SCH ×3 (05:06→20:18)
[2019-01-01] MEDS: LACOSAMIDE 50 MG TABLET GT SCH ×2 (05:06→17:20)
[2019-01-01] MEDS: REGLAN GT SCH ×4 (05:06→23:33)
[2019-01-01] MEDS: BLOOD SUGAR DIAGNOSTIC 1 EACH STRIP IN SCH ×4 (05:14→23:33)
[2019-01-01] MEDS: INSULIN REGULAR, HUMAN 100 UNIT/ML 10 ML VIAL SQ SCH ×4 (05:15→23:34)
[2019-01-01] MEDS: ASCORBIC ACID 500 MG TABLET GT SCH (09:00)
[2019-01-01] MEDS: FINASTERIDE (5 MG) 5 MG TABLET GT SCH (09:00)
[2019-01-01] MEDS: CHLORHEXIDINE GLUCONATE 15 ML UDC MM SCH ×2 (09:00→20:18)
[2019-01-01] MEDS: POTASSIUM CHLORIDE 20 MEQ POWDER PACKET GT SCH (09:00)
[2019-01-01] MEDS: Z GUARD REMEDY 2 OZ OINT TP SCH ×2 (09:00→20:19)
[2019-01-01] MEDS: Z GUARD REMEDY 4 OZ OINT TP SCH ×2 (09:00→20:19)
[2019-01-01] MEDS: HYDROGEN PEROXIDE 480 ML BOTTLE TP SCH ×2 (09:00→20:19)
[2019-01-01] MEDS: VIT B CMPLX 3/FA/VIT C/BIOTIN 1 TAB TABLET GT SCH (09:00)
[2019-01-01] MEDS: CARVEDILOL 6.25 MG TABLET GT SCH ×2 (09:00→20:18)
[2019-01-01] MEDS: DORZOLAMIDE OPTH 2% 10 ML BOTTLE EACHEYE SCH ×3 (09:00→17:18)
[2019-01-01] MEDS: MINERAL OIL/PETROL OINT 396 GM JAR TP SCH ×2 (09:00→20:18)
[2019-01-01] MEDS: ACIDOPHILUS/BULGARICUS 1 EACH TAB.CHEW GT SCH (09:00)
[2019-01-01] MEDS: VITS A AND D/WHITE PET/LANOLIN 5 GM PACKET TP SCH ×2 (09:00→20:19)
[2019-01-01] MEDS: LINAGLIPTIN 5 MG TABLET GT SCH (09:00)
--- NOTE | 2019-01-01 10:24 | NUR ---
Dr. Ramírez made rounds but patient still on dialysis, made aware that Nilam Edwin extended cool aerosol for additional hours. According to Dr. Ramírez, to keep this setting for this week and he will increase it to until 12 midnight next week. Left a message to resident's son.
--- NOTE | 2019-01-01 10:30 | NUR ---
Resident returned from dialysis center, s/p hemodialysis, site left upper chest subclavian perma cath intact, dressing intact, no bleeding, vital signs at arrival Blood pressure 127/55, Temp 98.0, pulse 69, resp rate 16, pain 0/10, no facial grimacing, no respiratory distress noted.
--- NOTE | 2019-01-01 12:15 | NUR ---
RT NOTE: PATIENT IS ON COOL AEROSOL PER MD ORDER TOLERATING WELL. AMBU BAG AND NEW TRACH AT [facility].
[2019-01-01] MEDS: ATORVASTATIN 10 MG TABLET GT SCH (21:33)
[2019-01-01] MEDS: LATANOPROST EYE DROP 0.005% 2.5 ML BOTTLE EACHEYE SCH (21:33)
[2019-01-01] MEDS: TAMSULOSIN 0.4 MG CAP.SR.24H PO SCH (21:33)
[2019-01-02] VITALS (7 sets, daily range): BP systolic 116–130; BP diastolic 60–86
[2019-01-02] MEDS: IPRATROPIUM NEB FS 0.5 MG/2.5 ML AMPUL.NEB IH SCH ×4 (01:44→19:51)
[2019-01-02] MEDS: LACOSAMIDE 50 MG TABLET GT SCH ×2 (05:30→17:23)
[2019-01-02] MEDS: REGLAN GT SCH ×4 (05:30→23:17)
[2019-01-02] MEDS: SIMETHICONE SUSP 40 MG/0.6 ML BOTTLE GT SCH ×4 (05:30→23:18)
[2019-01-02] MEDS: RANITIDINE GT SCH (05:30)
[2019-01-02] MEDS: PROSTAT (PYXIS) 30 ML UDC GT SCH ×3 (05:30→20:32)
[2019-01-02] MEDS: NEPRO 1,000 ML BOTTLE GT PRN (05:33)
[2019-01-02] MEDS: BLOOD SUGAR DIAGNOSTIC 1 EACH STRIP IN SCH ×4 (06:03→23:18)
[2019-01-02] MEDS: INSULIN REGULAR, HUMAN 100 UNIT/ML 10 ML VIAL SQ SCH ×4 (06:04→23:19)
[2019-01-02] MEDS: MINERAL OIL/PETROL OINT 396 GM JAR TP SCH ×2 (09:32→20:32)
[2019-01-02] MEDS: Z GUARD REMEDY 2 OZ OINT TP SCH ×2 (09:32→20:33)
[2019-01-02] MEDS: CHLORHEXIDINE GLUCONATE 15 ML UDC MM SCH ×2 (09:32→20:32)
[2019-01-02] MEDS: VIT B CMPLX 3/FA/VIT C/BIOTIN 1 TAB TABLET GT SCH (09:32)
[2019-01-02] MEDS: Z GUARD REMEDY 4 OZ OINT TP SCH ×2 (09:32→20:33)
[2019-01-02] MEDS: POTASSIUM CHLORIDE 20 MEQ POWDER PACKET GT SCH (09:32)
[2019-01-02] MEDS: ASCORBIC ACID 500 MG TABLET GT SCH (09:32)
[2019-01-02] MEDS: LINAGLIPTIN 5 MG TABLET GT SCH (09:32)
[2019-01-02] MEDS: CARVEDILOL 6.25 MG TABLET GT SCH ×2 (09:32→20:32)
[2019-01-02] MEDS: VITS A AND D/WHITE PET/LANOLIN 5 GM PACKET TP SCH ×2 (09:32→20:33)
[2019-01-02] MEDS: HYDROGEN PEROXIDE 480 ML BOTTLE TP SCH ×2 (09:32→20:33)
[2019-01-02] MEDS: ACIDOPHILUS/BULGARICUS 1 EACH TAB.CHEW GT SCH (09:32)
[2019-01-02] MEDS: DORZOLAMIDE OPTH 2% 10 ML BOTTLE EACHEYE SCH ×3 (09:32→17:23)
[2019-01-02] MEDS: FINASTERIDE (5 MG) 5 MG TABLET GT SCH (09:32)
[2019-01-02] MEDS: ATORVASTATIN 10 MG TABLET GT SCH (21:55)
[2019-01-02] MEDS: LATANOPROST EYE DROP 0.005% 2.5 ML BOTTLE EACHEYE SCH (21:55)
[2019-01-02] MEDS: TAMSULOSIN 0.4 MG CAP.SR.24H PO SCH (21:55)
[2019-01-03] VITALS (7 sets, daily range): BP systolic 121–143; BP diastolic 60–86
[2019-01-03] MEDS: IPRATROPIUM NEB FS 0.5 MG/2.5 ML AMPUL.NEB IH SCH ×4 (02:13→20:08)
[2019-01-03] MEDS: SIMETHICONE SUSP 40 MG/0.6 ML BOTTLE GT SCH ×3 (05:19→17:22)
[2019-01-03] MEDS: PROSTAT (PYXIS) 30 ML UDC GT SCH ×3 (05:19→21:26)
[2019-01-03] MEDS: REGLAN GT SCH ×3 (05:19→17:22)
[2019-01-03] MEDS: RANITIDINE GT SCH (05:20)
[2019-01-03] MEDS: LACOSAMIDE 50 MG TABLET GT SCH ×2 (05:20→17:22)
[2019-01-03] MEDS: BLOOD SUGAR DIAGNOSTIC 1 EACH STRIP IN SCH ×3 (05:20→17:22)
[2019-01-03] MEDS: INSULIN REGULAR, HUMAN 100 UNIT/ML 10 ML VIAL SQ SCH ×3 (05:22→17:22)
--- NOTE | 2019-01-03 06:10 | NUR ---
PICKED UP BY [facility] FOR DIALYSIS TO [facility] .ON COOL AEROSOL TOLERATING WELL AND VITAL SIGNS STABLE.
[2019-01-03] MEDS: MINERAL OIL/PETROL OINT 396 GM JAR TP SCH ×2 (10:25→21:26)
[2019-01-03] MEDS: DORZOLAMIDE OPTH 2% 10 ML BOTTLE EACHEYE SCH ×3 (10:25→17:22)
[2019-01-03] MEDS: Z GUARD REMEDY 4 OZ OINT TP SCH ×2 (10:25→21:27)
[2019-01-03] MEDS: HYDROGEN PEROXIDE 480 ML BOTTLE TP SCH ×2 (10:25→21:27)
[2019-01-03] MEDS: CARVEDILOL 6.25 MG TABLET GT SCH ×2 (10:25→21:26)
[2019-01-03] MEDS: Z GUARD REMEDY 2 OZ OINT TP SCH ×2 (10:25→21:27)
[2019-01-03] MEDS: POTASSIUM CHLORIDE 20 MEQ POWDER PACKET GT SCH (10:25)
[2019-01-03] MEDS: VITS A AND D/WHITE PET/LANOLIN 5 GM PACKET TP SCH ×2 (10:25→21:27)
[2019-01-03] MEDS: LINAGLIPTIN 5 MG TABLET GT SCH (10:25)
[2019-01-03] MEDS: CHLORHEXIDINE GLUCONATE 15 ML UDC MM SCH ×2 (10:25→21:26)
[2019-01-03] MEDS: ACIDOPHILUS/BULGARICUS 1 EACH TAB.CHEW GT SCH (10:25)
[2019-01-03] MEDS: VIT B CMPLX 3/FA/VIT C/BIOTIN 1 TAB TABLET GT SCH (10:25)
[2019-01-03] MEDS: ASCORBIC ACID 500 MG TABLET GT SCH (10:25)
[2019-01-03] MEDS: FINASTERIDE (5 MG) 5 MG TABLET GT SCH (10:25)
--- NOTE | 2019-01-03 12:47 | NUR ---
Pt had dialysis today and according to communication record, dialysis nurse wrote that pt had a seizure there lasting less than 30 seconds. Called [facility] and spoke with Bahman who confirmed pt's seizure. Notified Dr Garduno. He said to have Dr Jacobo see pt. Called Dr Jacobo's office and left message with Sadia.
--- NOTE | 2019-01-03 13:13 | NUR ---
Dr Jacobo's BSW Tabby Musa called. Informed her that pt had a seizure while having dialysis which lasted for less than 30 seconds and that pt is on Vimpat 100 mg q 12. She said she will review pt's chart.
[2019-01-03] MEDS: ATORVASTATIN 10 MG TABLET GT SCH (21:27)
[2019-01-03] MEDS: LATANOPROST EYE DROP 0.005% 2.5 ML BOTTLE EACHEYE SCH (21:27)
[2019-01-03] MEDS: TAMSULOSIN 0.4 MG CAP.SR.24H PO SCH (21:27)
--- NOTE | 2019-01-03 21:30 | NUR ---
Son notified about seizure activity in the dialysis earlier today and Neurologist was also notified and will review his medication.
--- NOTE | 2019-01-03 21:50 | NUR ---
RT NOTE PATIENT RECEIVED TRACHED ON MECHANICAL VENTILATION. CUFF CHECKED VIA MEAT CUTTER. TX GIVEN, NO ADVERSE REACTIONS NOTED. SX DONE, SMALL THICK YELLOW SECRETIONS NOTED. ALARMS ON AND AUDIBLE. VENT PLUGGED TO RED OUTLET. NO DISTRESS NOTED. WILL MONITOR T/O SHIFT.
--- NOTE | 2019-01-03 21:52 | NUR ---
RT NOTE PATIENT RECEIVED TRACHED ON COOL AEROSOL. PLACED PATIENT ON MECHANICAL VENTILATION. CUFF CHECKED VIA CAPACITY PLANNING MANAGER. TX GIVEN, NO ADVERSE REACTIONS NOTED. SX DONE, SMALL THICK YELLOW SECRETIONS NOTED. ALARMS ON AND AUDIBLE. VENT PLUGGED TO RED OUTLET. NO DISTRESS NOTED. WILL MONITOR T/O SHIFT. PULSE OX CONNECTED. Addendum: 01/03/19 at 2153 by GINGER YOU RT Amended: Links added.
[2019-01-04] VITALS (8 sets, daily range): BP systolic 124–141; BP diastolic 63–76
[2019-01-04] MEDS: REGLAN GT SCH ×4 (00:33→17:16)
[2019-01-04] MEDS: BLOOD SUGAR DIAGNOSTIC 1 EACH STRIP IN SCH ×4 (00:33→17:16)
[2019-01-04] MEDS: SIMETHICONE SUSP 40 MG/0.6 ML BOTTLE GT SCH ×4 (00:33→17:16)
[2019-01-04] MEDS: IPRATROPIUM NEB FS 0.5 MG/2.5 ML AMPUL.NEB IH SCH ×4 (01:46→19:55)
[2019-01-04] MEDS: PROSTAT (PYXIS) 30 ML UDC GT SCH ×3 (05:28→21:18)
[2019-01-04] MEDS: LACOSAMIDE 50 MG TABLET GT SCH ×2 (05:29→17:16)
[2019-01-04] MEDS: RANITIDINE GT SCH (05:29)
[2019-01-04] MEDS: INSULIN REGULAR, HUMAN 100 UNIT/ML 10 ML VIAL SQ SCH ×4 (05:30→17:16)
[2019-01-04] MEDS: DORZOLAMIDE OPTH 2% 10 ML BOTTLE EACHEYE SCH ×3 (09:25→17:16)
[2019-01-04] MEDS: FINASTERIDE (5 MG) 5 MG TABLET GT SCH (09:26)
[2019-01-04] MEDS: MINERAL OIL/PETROL OINT 396 GM JAR TP SCH ×2 (09:26→21:18)
[2019-01-04] MEDS: VIT B CMPLX 3/FA/VIT C/BIOTIN 1 TAB TABLET GT SCH (09:26)
[2019-01-04] MEDS: ACIDOPHILUS/BULGARICUS 1 EACH TAB.CHEW GT SCH (09:26)
[2019-01-04] MEDS: VITS A AND D/WHITE PET/LANOLIN 5 GM PACKET TP SCH ×2 (09:26→21:18)
[2019-01-04] MEDS: HYDROGEN PEROXIDE 480 ML BOTTLE TP SCH ×2 (09:26→21:18)
[2019-01-04] MEDS: LINAGLIPTIN 5 MG TABLET GT SCH (09:26)
[2019-01-04] MEDS: CARVEDILOL 6.25 MG TABLET GT SCH ×2 (09:26→21:18)
[2019-01-04] MEDS: CHLORHEXIDINE GLUCONATE 15 ML UDC MM SCH ×2 (09:26→21:18)
[2019-01-04] MEDS: Z GUARD REMEDY 4 OZ OINT TP SCH ×2 (09:26→21:18)
[2019-01-04] MEDS: POTASSIUM CHLORIDE 20 MEQ POWDER PACKET GT SCH (09:26)
[2019-01-04] MEDS: ASCORBIC ACID 500 MG TABLET GT SCH (09:26)
--- NOTE | 2019-01-04 14:23 | NUR ---
Referred to JESSE Thompson that GT is leaking. He said that he will see the patient.
[2019-01-04] MEDS: NEPRO 1,000 ML BOTTLE GT PRN (17:17)
--- NOTE | 2019-01-04 19:46 | NUR ---
RT PATIENT RECEIVED TRACHED ON COOL AEROSOL VIA T-MASK. PLACED PATIENT ON MECHANICAL VENTILATION ON ORDERED CPAP MODE W/ PS SETTINGS. NO DISTRESS NOTED. SANDWICH PEDDLER FOR CUFF DONE. TX GIVEN. PT SUCTIONED, SMALL THICK WHITE YELLOW SECRETIONS NOTED. AMBUBAG AND BACK UP TRACH AT BEDSIDE. ALARMS SET AND AUDIBLE. VENT CONNECTED TO RED OUTLET. WILL CONT TO MONITOR. Addendum: 01/04/19 at 2147 by BLADIMIR MEEK RT Amended: Links added.
[2019-01-04] MEDS: LATANOPROST EYE DROP 0.005% 2.5 ML BOTTLE EACHEYE SCH (21:18)
[2019-01-04] MEDS: TAMSULOSIN 0.4 MG CAP.SR.24H PO SCH (21:18)
[2019-01-04] MEDS: ATORVASTATIN 10 MG TABLET GT SCH (21:18)
[2019-01-05] MEDS: REGLAN GT SCH ×4 (00:31→17:28)
[2019-01-05] MEDS: SIMETHICONE SUSP 40 MG/0.6 ML BOTTLE GT SCH ×4 (00:31→17:28)
[2019-01-05] MEDS: BLOOD SUGAR DIAGNOSTIC 1 EACH STRIP IN SCH ×4 (00:31→17:55)
[2019-01-05] MEDS: INSULIN REGULAR, HUMAN 100 UNIT/ML 10 ML VIAL SQ SCH ×5 (00:32→18:09)
[2019-01-05 01:00] VITALS: BP 132/73
[2019-01-05] MEDS: IPRATROPIUM NEB FS 0.5 MG/2.5 ML AMPUL.NEB IH SCH ×4 (01:29→19:55)
[2019-01-05 05:00] VITALS: BP 122/69
[2019-01-05] MEDS: PROSTAT (PYXIS) 30 ML UDC GT SCH ×3 (05:02→21:36)
[2019-01-05] MEDS: RANITIDINE GT SCH (05:03)
[2019-01-05] MEDS: LACOSAMIDE 50 MG TABLET GT SCH ×2 (05:44→17:28)
--- NOTE | 2019-01-05 05:51 | NUR ---
[facility] for [facility].Patient vital signs stable.
[2019-01-05] MEDS: CARVEDILOL 6.25 MG TABLET GT SCH ×2 (09:00→21:36)
[2019-01-05] MEDS: ACIDOPHILUS/BULGARICUS 1 EACH TAB.CHEW GT SCH (09:00)
[2019-01-05] MEDS: VIT B CMPLX 3/FA/VIT C/BIOTIN 1 TAB TABLET GT SCH (09:00)
[2019-01-05] MEDS: POTASSIUM CHLORIDE 20 MEQ POWDER PACKET GT SCH (09:00)
[2019-01-05] MEDS: LINAGLIPTIN 5 MG TABLET GT SCH (09:00)
[2019-01-05] MEDS: ASCORBIC ACID 500 MG TABLET GT SCH (09:00)
[2019-01-05] MEDS: DORZOLAMIDE OPTH 2% 10 ML BOTTLE EACHEYE SCH ×3 (09:00→16:37)
[2019-01-05] MEDS: FINASTERIDE (5 MG) 5 MG TABLET GT SCH (09:00)
[2019-01-05] MEDS: CHLORHEXIDINE GLUCONATE 15 ML UDC MM SCH ×2 (11:59→21:36)
[2019-01-05] MEDS: VITS A AND D/WHITE PET/LANOLIN 5 GM PACKET TP SCH ×2 (11:59→21:36)
[2019-01-05] MEDS: MINERAL OIL/PETROL OINT 396 GM JAR TP SCH ×2 (11:59→21:36)
[2019-01-05] MEDS: HYDROGEN PEROXIDE 480 ML BOTTLE TP SCH ×2 (11:59→21:36)
[2019-01-05] MEDS: Z GUARD REMEDY 4 OZ OINT TP SCH ×2 (11:59→21:36)
--- NOTE | 2019-01-05 15:54 | NUR ---
RT NOTE: PT LEFT FOR HEMODIALYSIS EARLY AM DURING NOC SHIFT. RECEIVED PT BACK ON 28% C/A AND LEFT ON C/A PER MD QDAY ORDER. NO COMPLICATIONS NOTED UPON ARRIVAL FROM DIALYSIS TX. NO RESPIRATORY DISTRESS NOTED. TRACH CHECKED SECURE AND PATENT. SXD AND LAVAGED PT Q ROUND AND NEEDED. TX GIVEN ORDERED WITH NO ADVERSE REACTIONS NOTED. EMERGENCY EQUIPMENT @ BEDSIDE. WILL CONTINUE TO MONITOR.
[2019-01-05] MEDS: NEPRO 1,000 ML BOTTLE GT PRN (16:37)
[2019-01-05 18:00] VITALS: BP 139/81
[2019-01-05 19:27] VITALS: BP 139/65
[2019-01-05] MEDS: LATANOPROST EYE DROP 0.005% 2.5 ML BOTTLE EACHEYE SCH (21:35)
[2019-01-05] MEDS: TAMSULOSIN 0.4 MG CAP.SR.24H PO SCH (21:36)
[2019-01-05] MEDS: ATORVASTATIN 10 MG TABLET GT SCH (21:36)
[2019-01-06] VITALS (8 sets, daily range): BP systolic 113–147; BP diastolic 62–75
[2019-01-06] MEDS: SIMETHICONE SUSP 40 MG/0.6 ML BOTTLE GT SCH ×4 (00:25→17:58)
[2019-01-06] MEDS: REGLAN GT SCH ×4 (00:25→17:58)
[2019-01-06] MEDS: BLOOD SUGAR DIAGNOSTIC 1 EACH STRIP IN SCH ×4 (00:25→17:58)
[2019-01-06] MEDS: INSULIN REGULAR, HUMAN 100 UNIT/ML 10 ML VIAL SQ SCH ×4 (00:31→17:59)
[2019-01-06] MEDS: IPRATROPIUM NEB FS 0.5 MG/2.5 ML AMPUL.NEB IH SCH ×4 (01:40→19:57)
[2019-01-06] MEDS: PROSTAT (PYXIS) 30 ML UDC GT SCH ×3 (05:37→20:22)
[2019-01-06] MEDS: LACOSAMIDE 50 MG TABLET GT SCH ×2 (05:39→17:58)
[2019-01-06] MEDS: RANITIDINE GT SCH (05:39)
[2019-01-06] MEDS: NEPRO 1,000 ML BOTTLE GT PRN (05:42)
[2019-01-06] MEDS: DORZOLAMIDE OPTH 2% 10 ML BOTTLE EACHEYE SCH ×3 (09:09→16:41)
[2019-01-06] MEDS: CARVEDILOL 6.25 MG TABLET GT SCH ×2 (09:09→20:22)
[2019-01-06] MEDS: POTASSIUM CHLORIDE 20 MEQ POWDER PACKET GT SCH (09:10)
[2019-01-06] MEDS: FINASTERIDE (5 MG) 5 MG TABLET GT SCH (09:10)
[2019-01-06] MEDS: HYDROGEN PEROXIDE 480 ML BOTTLE TP SCH ×2 (09:10→20:22)
[2019-01-06] MEDS: VIT B CMPLX 3/FA/VIT C/BIOTIN 1 TAB TABLET GT SCH (09:10)
[2019-01-06] MEDS: ASCORBIC ACID 500 MG TABLET GT SCH (09:10)
[2019-01-06] MEDS: VITS A AND D/WHITE PET/LANOLIN 5 GM PACKET TP SCH ×2 (09:10→20:22)
[2019-01-06] MEDS: ACIDOPHILUS/BULGARICUS 1 EACH TAB.CHEW GT SCH (09:10)
[2019-01-06] MEDS: LINAGLIPTIN 5 MG TABLET GT SCH (09:10)
[2019-01-06] MEDS: CHLORHEXIDINE GLUCONATE 15 ML UDC MM SCH ×2 (09:10→20:22)
[2019-01-06] MEDS: MINERAL OIL/PETROL OINT 396 GM JAR TP SCH ×2 (09:10→20:22)
[2019-01-06] MEDS: Z GUARD REMEDY 4 OZ OINT TP SCH ×2 (09:10→20:22)
[2019-01-06] MEDS: LATANOPROST EYE DROP 0.005% 2.5 ML BOTTLE EACHEYE SCH (21:58)
[2019-01-06] MEDS: ATORVASTATIN 10 MG TABLET GT SCH (21:58)
[2019-01-06] MEDS: TAMSULOSIN 0.4 MG CAP.SR.24H PO SCH (21:59)
[2019-01-07] VITALS (8 sets, daily range): BP systolic 113–151; BP diastolic 58–90
[2019-01-07] MEDS: REGLAN GT SCH ×5 (00:07→23:34)
[2019-01-07] MEDS: SIMETHICONE SUSP 40 MG/0.6 ML BOTTLE GT SCH ×5 (00:07→23:34)
[2019-01-07] MEDS: BLOOD SUGAR DIAGNOSTIC 1 EACH STRIP IN SCH ×5 (00:08→23:35)
[2019-01-07] MEDS: IPRATROPIUM NEB FS 0.5 MG/2.5 ML AMPUL.NEB IH SCH ×4 (01:47→19:35)
[2019-01-07] MEDS: PROSTAT (PYXIS) 30 ML UDC GT SCH ×3 (05:22→20:05)
[2019-01-07] MEDS: LACOSAMIDE 50 MG TABLET GT SCH ×2 (05:24→17:36)
[2019-01-07] MEDS: RANITIDINE GT SCH (05:24)
[2019-01-07] MEDS: INSULIN REGULAR, HUMAN 100 UNIT/ML 10 ML VIAL SQ SCH ×5 (05:26→23:36)
[2019-01-07] MEDS: CARVEDILOL 6.25 MG TABLET GT SCH ×2 (08:42→20:05)
[2019-01-07] MEDS: DORZOLAMIDE OPTH 2% 10 ML BOTTLE EACHEYE SCH ×3 (08:42→17:36)
[2019-01-07] MEDS: ACIDOPHILUS/BULGARICUS 1 EACH TAB.CHEW GT SCH (08:42)
[2019-01-07] MEDS: LINAGLIPTIN 5 MG TABLET GT SCH (08:42)
[2019-01-07] MEDS: VIT B CMPLX 3/FA/VIT C/BIOTIN 1 TAB TABLET GT SCH (08:42)
[2019-01-07] MEDS: ASCORBIC ACID 500 MG TABLET GT SCH (08:42)
[2019-01-07] MEDS: POTASSIUM CHLORIDE 20 MEQ POWDER PACKET GT SCH (08:42)
[2019-01-07] MEDS: FINASTERIDE (5 MG) 5 MG TABLET GT SCH (08:42)
[2019-01-07] MEDS: Z GUARD REMEDY 4 OZ OINT TP SCH ×2 (09:00→20:06)
[2019-01-07] MEDS: CHLORHEXIDINE GLUCONATE 15 ML UDC MM SCH ×2 (09:00→20:05)
[2019-01-07] MEDS: VITS A AND D/WHITE PET/LANOLIN 5 GM PACKET TP SCH ×2 (09:00→20:10)
[2019-01-07] MEDS: MINERAL OIL/PETROL OINT 396 GM JAR TP SCH ×2 (09:00→20:06)
[2019-01-07] MEDS: HYDROGEN PEROXIDE 480 ML BOTTLE TP SCH ×2 (09:00→20:06)
[2019-01-07] MEDS: NEPRO 1,000 ML BOTTLE GT PRN (11:06)
[2019-01-07] MEDS ORDERED: LET SOLN TOPICAL 8 ML UDC TP ONE (18:05)
[2019-01-07] MEDS: TAMSULOSIN 0.4 MG CAP.SR.24H PO SCH (21:38)
[2019-01-07] MEDS: LATANOPROST EYE DROP 0.005% 2.5 ML BOTTLE EACHEYE SCH (21:38)
[2019-01-07] MEDS: ATORVASTATIN 10 MG TABLET GT SCH (21:38)
[2019-01-08] VITALS (7 sets, daily range): BP systolic 129–149; BP diastolic 62–73
[2019-01-08] MEDS: IPRATROPIUM NEB FS 0.5 MG/2.5 ML AMPUL.NEB IH SCH ×4 (00:33→19:37)
[2019-01-08] MEDS: NEPRO 1,000 ML BOTTLE GT PRN (05:29)
[2019-01-08] MEDS: PROSTAT (PYXIS) 30 ML UDC GT SCH ×3 (05:31→20:42)
[2019-01-08] MEDS: REGLAN GT SCH ×3 (05:32→18:22)
[2019-01-08] MEDS: RANITIDINE GT SCH (05:33)
[2019-01-08] MEDS: SIMETHICONE SUSP 40 MG/0.6 ML BOTTLE GT SCH ×3 (05:33→18:22)
[2019-01-08] MEDS: LACOSAMIDE 50 MG TABLET GT SCH ×2 (05:34→18:22)
[2019-01-08] MEDS: INSULIN REGULAR, HUMAN 100 UNIT/ML 10 ML VIAL SQ SCH ×3 (05:34→18:23)
[2019-01-08] MEDS: BLOOD SUGAR DIAGNOSTIC 1 EACH STRIP IN SCH ×3 (05:34→18:22)
[2019-01-08] MEDS: MINERAL OIL/PETROL OINT 396 GM JAR TP SCH ×2 (10:45→20:42)
[2019-01-08] MEDS: DORZOLAMIDE OPTH 2% 10 ML BOTTLE EACHEYE SCH ×3 (10:45→17:00)
[2019-01-08] MEDS: CHLORHEXIDINE GLUCONATE 15 ML UDC MM SCH ×2 (10:45→20:42)
[2019-01-08] MEDS: ASCORBIC ACID 500 MG TABLET GT SCH (10:45)
[2019-01-08] MEDS: CARVEDILOL 6.25 MG TABLET GT SCH ×2 (10:45→20:41)
[2019-01-08] MEDS: LINAGLIPTIN 5 MG TABLET GT SCH (10:45)
[2019-01-08] MEDS: ACIDOPHILUS/BULGARICUS 1 EACH TAB.CHEW GT SCH (10:45)
[2019-01-08] MEDS: FINASTERIDE (5 MG) 5 MG TABLET GT SCH (10:45)
[2019-01-08] MEDS: POTASSIUM CHLORIDE 20 MEQ POWDER PACKET GT SCH (10:45)
[2019-01-08] MEDS: VIT B CMPLX 3/FA/VIT C/BIOTIN 1 TAB TABLET GT SCH (11:00)
[2019-01-08] MEDS: Z GUARD REMEDY 4 OZ OINT TP SCH ×2 (11:10→20:42)
[2019-01-08] MEDS: VITS A AND D/WHITE PET/LANOLIN 5 GM PACKET TP SCH ×2 (11:10→20:42)
[2019-01-08] MEDS: HYDROGEN PEROXIDE 480 ML BOTTLE TP SCH ×2 (11:10→20:42)
--- NOTE | 2019-01-08 11:23 | NUR ---
Made a follow-up call to HOME THEATER INSTALLER Tabby Musa, to see patient and review his medications due to episode of seizure at dialysis center. Spoke with Annemarie who said that HOME THEATER INSTALLER is with a patient at this time but relayed the message. Awaiting for call back. Resident is back from dialysis in stable condition.
--- NOTE | 2019-01-08 11:50 | NUR ---
BRANDO Musa, neurologist returned the call and reminded that patient had a seizure last week at dialysis center if she had reviewed the records. BRANDO Musa gave an order for Ativan 1 mg. IV Q 10 minutes while seizing x 3 doses then evaluate, per MD may give IM if no IV access with same parameter. Notified Dr. Johns, patient's son of new order and will sign consent when he comes.
[2019-01-08] MEDS ORDERED: LORAZEPAM INJ 2 MG/ML VIAL IM/IV PRN (12:00)
--- NOTE | 2019-01-08 19:00 | NUR ---
Seen and examined by Dr. Garduno, NNO given. No episode of seizure.
[2019-01-08] MEDS: LATANOPROST EYE DROP 0.005% 2.5 ML BOTTLE EACHEYE SCH (21:54)
[2019-01-08] MEDS: TAMSULOSIN 0.4 MG CAP.SR.24H PO SCH (21:54)
[2019-01-08] MEDS: ATORVASTATIN 10 MG TABLET GT SCH (21:54)
[2019-01-09] VITALS (8 sets, daily range): BP systolic 121–147; BP diastolic 60–79
[2019-01-09] MEDS: SIMETHICONE SUSP 40 MG/0.6 ML BOTTLE GT SCH ×5 (00:34→23:43)
[2019-01-09] MEDS: BLOOD SUGAR DIAGNOSTIC 1 EACH STRIP IN SCH ×5 (00:34→23:53)
[2019-01-09] MEDS: REGLAN GT SCH ×5 (00:34→23:43)
[2019-01-09] MEDS: INSULIN REGULAR, HUMAN 100 UNIT/ML 10 ML VIAL SQ SCH ×5 (00:35→23:54)
[2019-01-09] MEDS: IPRATROPIUM NEB FS 0.5 MG/2.5 ML AMPUL.NEB IH SCH ×4 (00:56→19:30)
[2019-01-09] MEDS: PROSTAT (PYXIS) 30 ML UDC GT SCH ×3 (05:27→21:16)
[2019-01-09] MEDS: NEPRO 1,000 ML BOTTLE GT PRN (05:27)
[2019-01-09] MEDS: RANITIDINE GT SCH (05:30)
[2019-01-09] MEDS: LACOSAMIDE 50 MG TABLET GT SCH ×2 (05:30→17:27)
[2019-01-09] MEDS: Z GUARD REMEDY 4 OZ OINT TP SCH ×2 (09:00→21:16)
[2019-01-09] MEDS: MINERAL OIL/PETROL OINT 396 GM JAR TP SCH ×2 (09:00→21:16)
[2019-01-09] MEDS: VITS A AND D/WHITE PET/LANOLIN 5 GM PACKET TP SCH ×2 (09:00→21:16)
[2019-01-09] MEDS: HYDROGEN PEROXIDE 480 ML BOTTLE TP SCH ×2 (09:00→21:16)
[2019-01-09] MEDS: DORZOLAMIDE OPTH 2% 10 ML BOTTLE EACHEYE SCH ×3 (09:15→17:27)
[2019-01-09] MEDS: FINASTERIDE (5 MG) 5 MG TABLET GT SCH (09:16)
[2019-01-09] MEDS: ASCORBIC ACID 500 MG TABLET GT SCH (09:16)
[2019-01-09] MEDS: POTASSIUM CHLORIDE 20 MEQ POWDER PACKET GT SCH (09:16)
[2019-01-09] MEDS: ACIDOPHILUS/BULGARICUS 1 EACH TAB.CHEW GT SCH (09:16)
[2019-01-09] MEDS: VIT B CMPLX 3/FA/VIT C/BIOTIN 1 TAB TABLET GT SCH (09:16)
[2019-01-09] MEDS: LINAGLIPTIN 5 MG TABLET GT SCH (09:16)
[2019-01-09] MEDS: CARVEDILOL 6.25 MG TABLET GT SCH ×2 (09:16→21:16)
[2019-01-09] MEDS: CHLORHEXIDINE GLUCONATE 15 ML UDC MM SCH ×2 (09:20→21:16)
[2019-01-09] MEDS: LATANOPROST EYE DROP 0.005% 2.5 ML BOTTLE EACHEYE SCH (21:16)
[2019-01-09] MEDS: TAMSULOSIN 0.4 MG CAP.SR.24H PO SCH (21:16)
[2019-01-09] MEDS: ATORVASTATIN 10 MG TABLET GT SCH (21:16)
[2019-01-09] MEDS: ACETAMINOPHEN 650 MG/20.3 ML UDC GT PRN (23:44)
--- NOTE | 2019-01-10 00:08 | NUR ---
Noted with right great toe with pus and drainage.Cleanse with NS and pat dry. Will notify slubber runner in the morning.
[2019-01-10 01:02] VITALS: BP 154/80
[2019-01-10] MEDS: IPRATROPIUM NEB FS 0.5 MG/2.5 ML AMPUL.NEB IH SCH ×4 (01:23→19:35)
[2019-01-10] MEDS: PROSTAT (PYXIS) 30 ML UDC GT SCH ×3 (05:40→20:20)
[2019-01-10] MEDS: RANITIDINE GT SCH (05:40)
[2019-01-10] MEDS: REGLAN GT SCH ×3 (05:40→18:15)
[2019-01-10] MEDS: SIMETHICONE SUSP 40 MG/0.6 ML BOTTLE GT SCH ×3 (05:40→18:12)
[2019-01-10] MEDS: BLOOD SUGAR DIAGNOSTIC 1 EACH STRIP IN SCH ×3 (05:41→18:19)
[2019-01-10] MEDS: INSULIN REGULAR, HUMAN 100 UNIT/ML 10 ML VIAL SQ SCH ×3 (05:42→18:36)
[2019-01-10] MEDS: LACOSAMIDE 50 MG TABLET GT SCH ×2 (05:42→18:16)
[2019-01-10 05:43] VITALS: BP 122/57
--- NOTE | 2019-01-10 06:00 | NUR ---
pt went out for dialysis at [facility] per [facility] transport. pt awake, calm and comfortable. Stable vital signs. Trach secured and intact, on cool aerosol at 28% fio2. No signs of resp distress. All emergency equipment taken/ambu- bag and back up trach w/ pt. Jeremiah cath on left chest intact, with dry/clean dressing.
[2019-01-10] MEDS: POTASSIUM CHLORIDE 20 MEQ POWDER PACKET GT SCH (08:47)
[2019-01-10] MEDS: CARVEDILOL 6.25 MG TABLET GT SCH ×2 (08:47→20:20)
[2019-01-10] MEDS: ACIDOPHILUS/BULGARICUS 1 EACH TAB.CHEW GT SCH (08:47)
[2019-01-10] MEDS: FINASTERIDE (5 MG) 5 MG TABLET GT SCH (08:48)
[2019-01-10] MEDS: VIT B CMPLX 3/FA/VIT C/BIOTIN 1 TAB TABLET GT SCH (08:48)
[2019-01-10] MEDS: ASCORBIC ACID 500 MG TABLET GT SCH (08:48)
[2019-01-10] MEDS: HYDROGEN PEROXIDE 480 ML BOTTLE TP SCH ×2 (08:48→21:18)
[2019-01-10] MEDS: CHLORHEXIDINE GLUCONATE 15 ML UDC MM SCH ×2 (08:48→21:18)
[2019-01-10] MEDS: LINAGLIPTIN 5 MG TABLET GT SCH (08:48)
[2019-01-10] MEDS: DORZOLAMIDE OPTH 2% 10 ML BOTTLE EACHEYE SCH ×3 (08:49→17:00)
[2019-01-10] MEDS: MINERAL OIL/PETROL OINT 396 GM JAR TP SCH ×2 (09:00→21:18)
[2019-01-10] MEDS: VITS A AND D/WHITE PET/LANOLIN 5 GM PACKET TP SCH ×2 (09:00→21:18)
[2019-01-10] MEDS: Z GUARD REMEDY 4 OZ OINT TP SCH ×2 (09:00→21:18)
--- NOTE | 2019-01-10 10:45 | NUR ---
Resident returned to unit from dialysis in stable condition, vital signs stable. Awake, calm and comfortable. Trach secured and intact. HD access via Jeremiah cath noted to left chest, intact. no bleeding of the site. Dressing clean, dry and intact. Will continue to monitor per protocol.
[2019-01-10 11:13] VITALS: BP 109/68
--- NOTE | 2019-01-10 12:00 | NUR ---
Seen and examined by Nilam Pineda NP, no new order given.
[2019-01-10 13:00] VITALS: BP 109/68
--- NOTE | 2019-01-10 13:00 | NUR ---
Contacted Dr. Finney (contact center representative [employer]) regarding right great toe wound with pus. He said he will come to see patient today to do debridement and he will call the son to inform the plan of care and for consent. Supplies needed prepared.
--- NOTE | 2019-01-10 15:00 | NUR ---
Jose Johns (Son) called and gave us telephone consent for the right great toe wound debridement, witnessed by BRIGHT Bhatia.
[2019-01-10] MEDS: NEPRO 1,000 ML BOTTLE GT PRN (16:32)
[2019-01-10] MEDS ORDERED: LIDOCAINE 5% OINT 35.44 GM TUBE TP ONE (17:00)
--- NOTE | 2019-01-10 18:00 | NUR ---
Dr. Bueno came in and did right great toe debridement and nail avulsion, tolerated well with minimal bleeding. Son at bedside. Consent signed by son. Wound culture with GS specimen collected, sent to lab. Will continue to monitor.
[2019-01-10] MEDS: ACETAMINOPHEN 650 MG/20.3 ML UDC GT PRN (18:14)
--- NOTE | 2019-01-10 19:00 | NUR ---
Dr. Finney gave order for right great toe tx. If not healed in 5 days do repeat wound culture.
[2019-01-10 20:20] VITALS: BP 150/71
[2019-01-10 21:00] VITALS: BP 130/71
[2019-01-10] MEDS ORDERED: POVIDONE-IODINE OINT 28.4 GM TUBE TP SCH (21:00)
[2019-01-10] MEDS ORDERED: BACITRACIN ZINC OINT (15 GM) 15 GM TUBE TP SCH (21:00)
--- NOTE | 2019-01-10 21:00 | NUR ---
Dr. Bueno new order to do Bilateral lower extremities doopler.Cleanse Right hallux with 1/4 dakin's solution and apply Bactroban ointment daily and cover with kerlix x 5 days.Son aware of new orders.
[2019-01-10] MEDS: DAKINS QUARTER STRENGTH (0.125%) 480 ML BOTTLE TOP SCH (21:18)
[2019-01-10] MEDS: TAMSULOSIN 0.4 MG CAP.SR.24H PO SCH (21:48)
[2019-01-10] MEDS: LATANOPROST EYE DROP 0.005% 2.5 ML BOTTLE EACHEYE SCH (21:48)
[2019-01-10] MEDS: ATORVASTATIN 10 MG TABLET GT SCH (21:48)
[2019-01-11] VITALS (8 sets, daily range): BP systolic 121–140; BP diastolic 52–75
--- NOTE | 2019-01-11 | NUR ---
process development manager notes blood sugar 143, 2 units of insulin given kenroy SQ as ordered. tylenol also given kenroy GT for mild pain and sons requested. will continue monitoring.
[2019-01-11] MEDS: BLOOD SUGAR DIAGNOSTIC 1 EACH STRIP IN SCH ×4 (00:11→17:22)
[2019-01-11] MEDS: SIMETHICONE SUSP 40 MG/0.6 ML BOTTLE GT SCH ×4 (00:11→17:22)
[2019-01-11] MEDS: ACETAMINOPHEN 650 MG/20.3 ML UDC GT PRN ×3 (00:14→17:22)
[2019-01-11] MEDS: REGLAN GT SCH ×4 (00:15→17:22)
[2019-01-11] MEDS: INSULIN REGULAR, HUMAN 100 UNIT/ML 10 ML VIAL SQ SCH ×4 (00:21→17:23)
[2019-01-11] MEDS: IPRATROPIUM NEB FS 0.5 MG/2.5 ML AMPUL.NEB IH SCH ×4 (01:05→19:37)
[2019-01-11] MEDS: PROSTAT (PYXIS) 30 ML UDC GT SCH ×3 (05:55→21:08)
[2019-01-11] MEDS: RANITIDINE GT SCH (05:57)
[2019-01-11] MEDS: LACOSAMIDE 50 MG TABLET GT SCH (06:04)
--- NOTE | 2019-01-11 07:00 | NUR ---
manager of production notes blood sugar 142, 2 units of insulin given kenroy SQ as ordered. no signs of hypo/hyper glycemia noted. Pt stable kenroy the night. Endorse to am nurse for continuity of care.
[2019-01-11] MEDS: DORZOLAMIDE OPTH 2% 10 ML BOTTLE EACHEYE SCH ×3 (09:43→17:22)
[2019-01-11] MEDS: LINAGLIPTIN 5 MG TABLET GT SCH (09:44)
[2019-01-11] MEDS: VITS A AND D/WHITE PET/LANOLIN 5 GM PACKET TP SCH ×2 (09:44→21:00)
[2019-01-11] MEDS: POTASSIUM CHLORIDE 20 MEQ POWDER PACKET GT SCH (09:44)
[2019-01-11] MEDS: VIT B CMPLX 3/FA/VIT C/BIOTIN 1 TAB TABLET GT SCH (09:44)
[2019-01-11] MEDS: CHLORHEXIDINE GLUCONATE 15 ML UDC MM SCH ×2 (09:44→21:09)
[2019-01-11] MEDS: FINASTERIDE (5 MG) 5 MG TABLET GT SCH (09:44)
[2019-01-11] MEDS: CARVEDILOL 6.25 MG TABLET GT SCH ×2 (09:44→21:08)
[2019-01-11] MEDS: MINERAL OIL/PETROL OINT 396 GM JAR TP SCH ×2 (09:44→21:00)
[2019-01-11] MEDS: ASCORBIC ACID 500 MG TABLET GT SCH (09:44)
[2019-01-11] MEDS: DAKINS QUARTER STRENGTH (0.125%) 480 ML BOTTLE TOP SCH (09:44)
[2019-01-11] MEDS: HYDROGEN PEROXIDE 480 ML BOTTLE TP SCH ×2 (09:44→21:00)
[2019-01-11] MEDS: Z GUARD REMEDY 4 OZ OINT TP SCH ×2 (09:44→21:00)
[2019-01-11] MEDS: ACIDOPHILUS/BULGARICUS 1 EACH TAB.CHEW GT SCH (09:44)
[2019-01-11] MEDS: MUPIROCIN OINT 2% 22 GM TUBE TP SCH (09:45)
[2019-01-11] MEDS: NEPRO 1,000 ML BOTTLE GT PRN (09:46)
[2019-01-11] MEDS: VIMPAT 100 MG GT SCH (17:22)
[2019-01-11] MEDS: LATANOPROST EYE DROP 0.005% 2.5 ML BOTTLE EACHEYE SCH (21:09)
[2019-01-11] MEDS: TAMSULOSIN 0.4 MG CAP.SR.24H PO SCH (21:09)
[2019-01-11] MEDS: ATORVASTATIN 10 MG TABLET GT SCH (21:09)
--- NOTE | 2019-01-11 23:54 | NUR ---
RT PLACED PATIENT ON MECHANICAL VENTILATION ON ORDERED CPAP MODE W/ PS SETTINGS. NO DISTRESS NOTED. INDUSTRIAL TRACTOR DRIVER FOR CUFF DONE. TX GIVEN. PT SUCTIONED, SMALL THICK WHITE YELLOW SECRETIONS NOTED. AMBUBAG AND BACK UP TRACH AT BEDSIDE. ALARMS SET AND AUDIBLE. VENT CONNECTED TO RED OUTLET. WILL CONT TO MONITOR. Addendum: 01/12/19 at 0145 by BLADIMIR MEEK RT Amended: Links added.
[2019-01-12] VITALS (9 sets, daily range): BP systolic 105–145; BP diastolic 56–72
[2019-01-12] MEDS: IPRATROPIUM NEB FS 0.5 MG/2.5 ML AMPUL.NEB IH SCH ×4 (01:17→20:03)
[2019-01-12] MEDS: BLOOD SUGAR DIAGNOSTIC 1 EACH STRIP IN SCH ×4 (05:25→17:17)
[2019-01-12] MEDS: SIMETHICONE SUSP 40 MG/0.6 ML BOTTLE GT SCH ×4 (05:26→17:17)
[2019-01-12] MEDS: REGLAN GT SCH ×4 (05:26→17:17)
[2019-01-12] MEDS: RANITIDINE GT SCH (05:26)
[2019-01-12] MEDS: INSULIN REGULAR, HUMAN 100 UNIT/ML 10 ML VIAL SQ SCH ×4 (05:26→17:18)
[2019-01-12] MEDS: VIMPAT 100 MG GT SCH ×2 (05:26→17:17)
[2019-01-12] MEDS: PROSTAT (PYXIS) 30 ML UDC GT SCH ×3 (05:27→20:58)
--- NOTE | 2019-01-12 06:05 | NUR ---
Picked up by [facility] crew for dialysis in [facility],stable condition.Endorsed.
[2019-01-12] MEDS: LINAGLIPTIN 5 MG TABLET GT SCH (10:20)
[2019-01-12] MEDS: VITS A AND D/WHITE PET/LANOLIN 5 GM PACKET TP SCH ×2 (10:20→20:58)
[2019-01-12] MEDS: CARVEDILOL 6.25 MG TABLET GT SCH ×2 (10:20→20:58)
[2019-01-12] MEDS: MUPIROCIN OINT 2% 22 GM TUBE TP SCH (10:20)
[2019-01-12] MEDS: ASCORBIC ACID 500 MG TABLET GT SCH (10:20)
[2019-01-12] MEDS: DAKINS QUARTER STRENGTH (0.125%) 480 ML BOTTLE TOP SCH (10:20)
[2019-01-12] MEDS: DORZOLAMIDE OPTH 2% 10 ML BOTTLE EACHEYE SCH ×3 (10:20→17:17)
[2019-01-12] MEDS: Z GUARD REMEDY 4 OZ OINT TP SCH ×2 (10:20→20:58)
[2019-01-12] MEDS: VIT B CMPLX 3/FA/VIT C/BIOTIN 1 TAB TABLET GT SCH (10:20)
[2019-01-12] MEDS: ACIDOPHILUS/BULGARICUS 1 EACH TAB.CHEW GT SCH (10:20)
[2019-01-12] MEDS: HYDROGEN PEROXIDE 480 ML BOTTLE TP SCH ×2 (10:20→20:58)
[2019-01-12] MEDS: FINASTERIDE (5 MG) 5 MG TABLET GT SCH (10:20)
[2019-01-12] MEDS: MINERAL OIL/PETROL OINT 396 GM JAR TP SCH ×2 (10:20→20:58)
[2019-01-12] MEDS: POTASSIUM CHLORIDE 20 MEQ POWDER PACKET GT SCH (10:20)
[2019-01-12] MEDS: CHLORHEXIDINE GLUCONATE 15 ML UDC MM SCH ×2 (10:20→20:58)
--- NOTE | 2019-01-12 10:31 | NUR ---
@ 1010 am Resident returned from hemodialysis treatment, no s/s of any complications noted. Pt afebrile. LT upper chest permacath intact, no bleeding noted. Covered with dressing, dry and clean. No s/s of any respiratory distress noted. Kept comfortable in bed.
--- NOTE | 2019-01-12 18:02 | NUR ---
Order obtained from Dr. Swenson to start Bacitracin tx on right hallux s/p debridement and nail avulsion d/t S. Aureus in wound culture.
[2019-01-12] MEDS: BACITRACIN ZINC OINT (15 GM) 15 GM TUBE TP SCH (20:58)
[2019-01-12] MEDS ORDERED: MUPIROCIN OINT 2% 22 GM TUBE TP SCH (21:00)
[2019-01-12] MEDS: LATANOPROST EYE DROP 0.005% 2.5 ML BOTTLE EACHEYE SCH (21:23)
[2019-01-12] MEDS: ATORVASTATIN 10 MG TABLET GT SCH (21:23)
[2019-01-12] MEDS: TAMSULOSIN 0.4 MG CAP.SR.24H PO SCH (21:23)
[2019-01-13] VITALS (8 sets, daily range): BP systolic 103–142; BP diastolic 51–74
[2019-01-13] MEDS: REGLAN GT SCH ×4 (00:22→17:14)
[2019-01-13] MEDS: SIMETHICONE SUSP 40 MG/0.6 ML BOTTLE GT SCH ×4 (00:22→17:14)
[2019-01-13] MEDS: BLOOD SUGAR DIAGNOSTIC 1 EACH STRIP IN SCH ×4 (00:23→17:41)
[2019-01-13] MEDS: INSULIN REGULAR, HUMAN 100 UNIT/ML 10 ML VIAL SQ SCH ×4 (00:23→17:43)
[2019-01-13] MEDS: IPRATROPIUM NEB FS 0.5 MG/2.5 ML AMPUL.NEB IH SCH ×4 (01:18→20:04)
[2019-01-13] MEDS: PROSTAT (PYXIS) 30 ML UDC GT SCH ×3 (05:26→21:02)
[2019-01-13] MEDS: RANITIDINE GT SCH (05:27)
[2019-01-13] MEDS: VIMPAT 100 MG GT SCH ×2 (05:27→17:14)
[2019-01-13] MEDS: NEPRO 1,000 ML BOTTLE GT PRN (05:28)
--- NOTE | 2019-01-13 09:00 | NUR ---
Seen and examined by Dr. Garduno, no new order given.
[2019-01-13] MEDS: DORZOLAMIDE OPTH 2% 10 ML BOTTLE EACHEYE SCH ×3 (09:40→17:14)
[2019-01-13] MEDS: FINASTERIDE (5 MG) 5 MG TABLET GT SCH (09:41)
[2019-01-13] MEDS: Z GUARD REMEDY 4 OZ OINT TP SCH ×2 (09:41→21:02)
[2019-01-13] MEDS: VIT B CMPLX 3/FA/VIT C/BIOTIN 1 TAB TABLET GT SCH (09:41)
[2019-01-13] MEDS: CARVEDILOL 6.25 MG TABLET GT SCH ×2 (09:41→21:01)
[2019-01-13] MEDS: LINAGLIPTIN 5 MG TABLET GT SCH (09:41)
[2019-01-13] MEDS: HYDROGEN PEROXIDE 480 ML BOTTLE TP SCH ×2 (09:41→21:02)
[2019-01-13] MEDS: DAKINS QUARTER STRENGTH (0.125%) 480 ML BOTTLE TOP SCH (09:41)
[2019-01-13] MEDS: ACIDOPHILUS/BULGARICUS 1 EACH TAB.CHEW GT SCH (09:41)
[2019-01-13] MEDS: POTASSIUM CHLORIDE 20 MEQ POWDER PACKET GT SCH (09:41)
[2019-01-13] MEDS: CHLORHEXIDINE GLUCONATE 15 ML UDC MM SCH ×2 (09:41→21:02)
[2019-01-13] MEDS: VITS A AND D/WHITE PET/LANOLIN 5 GM PACKET TP SCH ×2 (09:41→21:02)
[2019-01-13] MEDS: MINERAL OIL/PETROL OINT 396 GM JAR TP SCH ×2 (09:41→21:02)
[2019-01-13] MEDS: BACITRACIN ZINC OINT (15 GM) 15 GM TUBE TP SCH (09:41)
[2019-01-13] MEDS: ASCORBIC ACID 500 MG TABLET GT SCH (09:41)
--- NOTE | 2019-01-13 13:00 | NUR ---
Relayed wound culture result of rt Kyle to Dr. 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 Placed pt. contact isolation. Jose Johns (son) informed. Staff and family member educated on isolation precaution, hand washing, proper donning and doffing of PPE and proper waste disposal. Afebrile Temp. 98.8F. No s/sx of pain or discomfort. Left message to Heidi (Infection Control Nurse). Marisa (Conventions Assistant) informed. Will continue to monitor.
--- NOTE | 2019-01-13 13:05 | NUR ---
Aryln Hanks NP informed regarding wound culture. No new order. Continue with Mupirocin treatment on rt great toe. Will continue to monitor.
[2019-01-13] MEDS: MUPIROCIN OINT 2% 22 GM TUBE TP SCH ×2 (16:06→21:02)
[2019-01-13] MEDS: LATANOPROST EYE DROP 0.005% 2.5 ML BOTTLE EACHEYE SCH (21:02)
[2019-01-13] MEDS: TAMSULOSIN 0.4 MG CAP.SR.24H PO SCH (21:03)
[2019-01-13] MEDS: ATORVASTATIN 10 MG TABLET GT SCH (21:03)
[2019-01-14] VITALS (8 sets, daily range): BP systolic 124–144; BP diastolic 60–87
[2019-01-14] MEDS: REGLAN GT SCH ×4 (00:32→17:16)
[2019-01-14] MEDS: SIMETHICONE SUSP 40 MG/0.6 ML BOTTLE GT SCH ×4 (00:32→17:16)
[2019-01-14] MEDS: BLOOD SUGAR DIAGNOSTIC 1 EACH STRIP IN SCH ×4 (00:33→17:16)
[2019-01-14] MEDS: INSULIN REGULAR, HUMAN 100 UNIT/ML 10 ML VIAL SQ SCH ×4 (00:34→17:17)
[2019-01-14] MEDS: IPRATROPIUM NEB FS 0.5 MG/2.5 ML AMPUL.NEB IH SCH ×4 (01:35→19:29)
[2019-01-14] MEDS: PROSTAT (PYXIS) 30 ML UDC GT SCH ×3 (04:58→20:15)
[2019-01-14] MEDS: RANITIDINE GT SCH (05:00)
[2019-01-14] MEDS: VIMPAT 100 MG GT SCH ×2 (05:00→17:16)
[2019-01-14] MEDS: NEPRO 1,000 ML BOTTLE GT PRN (05:09)
--- NOTE | 2019-01-14 07:15 | NUR ---
RT PATIENT PLACED ON C/A PER MD JAMI MCKEON. Addendum: 01/14/19 at 0852 by ZOE FAITH RT Amended: Links added.
[2019-01-14] MEDS: DORZOLAMIDE OPTH 2% 10 ML BOTTLE EACHEYE SCH ×3 (09:56→17:16)
[2019-01-14] MEDS: CHLORHEXIDINE GLUCONATE 15 ML UDC MM SCH ×2 (09:57→20:15)
[2019-01-14] MEDS: VIT B CMPLX 3/FA/VIT C/BIOTIN 1 TAB TABLET GT SCH (09:57)
[2019-01-14] MEDS: HYDROGEN PEROXIDE 480 ML BOTTLE TP SCH ×2 (09:57→20:15)
[2019-01-14] MEDS: FINASTERIDE (5 MG) 5 MG TABLET GT SCH (09:57)
[2019-01-14] MEDS: ACIDOPHILUS/BULGARICUS 1 EACH TAB.CHEW GT SCH (09:57)
[2019-01-14] MEDS: CARVEDILOL 6.25 MG TABLET GT SCH ×2 (09:57→20:15)
[2019-01-14] MEDS: VITS A AND D/WHITE PET/LANOLIN 5 GM PACKET TP SCH ×2 (09:57→20:16)
[2019-01-14] MEDS: Z GUARD REMEDY 4 OZ OINT TP SCH ×2 (09:57→20:16)
[2019-01-14] MEDS: MINERAL OIL/PETROL OINT 396 GM JAR TP SCH ×2 (09:57→20:15)
[2019-01-14] MEDS: MUPIROCIN OINT 2% 22 GM TUBE TP SCH ×2 (09:57→20:15)
[2019-01-14] MEDS: DAKINS QUARTER STRENGTH (0.125%) 480 ML BOTTLE TOP SCH (09:57)
[2019-01-14] MEDS: POTASSIUM CHLORIDE 20 MEQ POWDER PACKET GT SCH (09:57)
[2019-01-14] MEDS: LINAGLIPTIN 5 MG TABLET GT SCH (09:57)
[2019-01-14] MEDS: ASCORBIC ACID 500 MG TABLET GT SCH (09:57)
[2019-01-14] MEDS: LATANOPROST EYE DROP 0.005% 2.5 ML BOTTLE EACHEYE SCH (21:45)
[2019-01-14] MEDS: ATORVASTATIN 10 MG TABLET GT SCH (21:46)
[2019-01-14] MEDS: TAMSULOSIN 0.4 MG CAP.SR.24H PO SCH (21:46)
--- NOTE | 2019-01-14 22:00 | NUR ---
RN NOTES Noted with gtube out, replaced and received order for KUB and to hold feeding until placement confirmed, son made aware. Will await for result to resume feeding.
[2019-01-14] MEDS ORDERED: DIATR MEGLU/DIATRIZOATE SODIUM 30 ML BOTTLE (GASTROGRAPHIN) ONE (22:19)
[2019-01-15] MEDS: SIMETHICONE SUSP 40 MG/0.6 ML BOTTLE GT SCH ×4 (00:22→18:03)
[2019-01-15] MEDS: REGLAN GT SCH ×4 (00:22→18:02)
[2019-01-15] MEDS: BLOOD SUGAR DIAGNOSTIC 1 EACH STRIP IN SCH ×4 (00:22→18:06)
[2019-01-15 01:00] VITALS: BP_SYST 136; BP_SYST 137; BP_DIAS 75; BP_DIAS 77
[2019-01-15] MEDS: IPRATROPIUM NEB FS 0.5 MG/2.5 ML AMPUL.NEB IH SCH ×4 (01:50→19:37)
[2019-01-15] MEDS: PROSTAT (PYXIS) 30 ML UDC GT SCH ×3 (05:25→21:41)
[2019-01-15] MEDS: RANITIDINE GT SCH (05:26)
[2019-01-15] MEDS: VIMPAT 100 MG GT SCH ×2 (05:27→18:18)
[2019-01-15] MEDS: INSULIN REGULAR, HUMAN 100 UNIT/ML 10 ML VIAL SQ SCH ×4 (05:29→18:00)
[2019-01-15 05:42] VITALS: BP 138/69
[2019-01-15] MEDS: DORZOLAMIDE OPTH 2% 10 ML BOTTLE EACHEYE SCH ×3 (09:00→17:00)
[2019-01-15] MEDS: VIT B CMPLX 3/FA/VIT C/BIOTIN 1 TAB TABLET GT SCH (09:00)
[2019-01-15] MEDS: FINASTERIDE (5 MG) 5 MG TABLET GT SCH (09:00)
[2019-01-15] MEDS: ASCORBIC ACID 500 MG TABLET GT SCH (09:00)
[2019-01-15] MEDS: POTASSIUM CHLORIDE 20 MEQ POWDER PACKET GT SCH (09:00)
[2019-01-15] MEDS: ACIDOPHILUS/BULGARICUS 1 EACH TAB.CHEW GT SCH (09:00)
[2019-01-15] MEDS: LINAGLIPTIN 5 MG TABLET GT SCH (09:00)
[2019-01-15] MEDS: CARVEDILOL 6.25 MG TABLET GT SCH ×2 (09:27→21:40)
--- NOTE | 2019-01-15 10:20 | NUR ---
Resident came back from Dialysis transported by [facility]. Awake, no s/s of resp. distress, vital signs stable. Trach secured and midline. Jeremiah Cath on left upper chest intact, dressing dry, no bleeding noted. Will continue to monitor.
[2019-01-15] MEDS: HYDROGEN PEROXIDE 480 ML BOTTLE TP SCH ×2 (12:00→21:42)
[2019-01-15] MEDS: DAKINS QUARTER STRENGTH (0.125%) 480 ML BOTTLE TOP SCH (12:00)
[2019-01-15] MEDS: CHLORHEXIDINE GLUCONATE 15 ML UDC MM SCH ×2 (12:00→21:41)
[2019-01-15] MEDS: Z GUARD REMEDY 4 OZ OINT TP SCH ×2 (12:00→21:42)
[2019-01-15] MEDS: MUPIROCIN OINT 2% 22 GM TUBE TP SCH ×2 (12:00→21:42)
[2019-01-15] MEDS: MINERAL OIL/PETROL OINT 396 GM JAR TP SCH ×2 (12:00→21:41)
[2019-01-15] MEDS: VITS A AND D/WHITE PET/LANOLIN 5 GM PACKET TP SCH ×2 (12:00→21:42)
[2019-01-15 13:00] VITALS: BP 132/74
--- NOTE | 2019-01-15 15:00 | NUR ---
Received rt hallux wound culture result, CRE Klebseilla Pneumoniae. Relayed result to Arlyn Hanks NP. No new order given. Continue on contact isolation. No fever noted, temp. 98.7. No bleeding, no drainage noted on rt hallux wound. Continue current treatment. Will continue to monitor. Divya (ID nurse) and Arlyn (Airline Mechanic) informed.
[2019-01-15 17:00] VITALS: BP 128/74
--- NOTE | 2019-01-15 17:50 | NUR ---
Dr. Swenson informed about wound culture result of rt alfanatalia, he said he will review it. No new order given.
[2019-01-15 20:07] VITALS: BP 136/77
[2019-01-15 21:00] VITALS: BP 136/77
[2019-01-15] MEDS: LATANOPROST EYE DROP 0.005% 2.5 ML BOTTLE EACHEYE SCH (21:42)
[2019-01-15] MEDS: TAMSULOSIN 0.4 MG CAP.SR.24H PO SCH (21:43)
[2019-01-15] MEDS: ATORVASTATIN 10 MG TABLET GT SCH (21:43)
[2019-01-16] MEDS: BLOOD SUGAR DIAGNOSTIC 1 EACH STRIP IN SCH ×4 (00:07→18:40)
[2019-01-16] MEDS: REGLAN GT SCH ×4 (00:07→18:40)
[2019-01-16] MEDS: SIMETHICONE SUSP 40 MG/0.6 ML BOTTLE GT SCH ×4 (00:07→18:40)
[2019-01-16] MEDS: INSULIN REGULAR, HUMAN 100 UNIT/ML 10 ML VIAL SQ SCH ×4 (00:09→18:44)
[2019-01-16 01:00] VITALS: BP 136/77
[2019-01-16] MEDS: IPRATROPIUM NEB FS 0.5 MG/2.5 ML AMPUL.NEB IH SCH ×4 (01:17→20:09)
[2019-01-16] MEDS: PROSTAT (PYXIS) 30 ML UDC GT SCH ×3 (05:00→21:08)
[2019-01-16] MEDS: RANITIDINE GT SCH (06:24)
[2019-01-16] MEDS: VIMPAT 100 MG GT SCH ×2 (06:34→18:40)
[2019-01-16] MEDS: NEPRO 1,000 ML BOTTLE GT PRN (07:21)
[2019-01-16 08:00] VITALS: BP 136/69
[2019-01-16] MEDS: DAKINS QUARTER STRENGTH (0.125%) 480 ML BOTTLE TOP SCH (09:00)
[2019-01-16] MEDS: VITS A AND D/WHITE PET/LANOLIN 5 GM PACKET TP SCH ×2 (09:00→21:10)
[2019-01-16] MEDS: MUPIROCIN OINT 2% 22 GM TUBE TP SCH ×2 (09:00→21:10)
[2019-01-16] MEDS: MINERAL OIL/PETROL OINT 396 GM JAR TP SCH ×2 (09:00→21:08)
[2019-01-16] MEDS: HYDROGEN PEROXIDE 480 ML BOTTLE TP SCH ×2 (09:00→21:10)
[2019-01-16] MEDS: Z GUARD REMEDY 4 OZ OINT TP SCH ×2 (09:00→21:10)
[2019-01-16] MEDS: VIT B CMPLX 3/FA/VIT C/BIOTIN 1 TAB TABLET GT SCH (09:14)
[2019-01-16] MEDS: POTASSIUM CHLORIDE 20 MEQ POWDER PACKET GT SCH (09:14)
[2019-01-16] MEDS: CARVEDILOL 6.25 MG TABLET GT SCH ×2 (09:14→21:08)
[2019-01-16] MEDS: DORZOLAMIDE OPTH 2% 10 ML BOTTLE EACHEYE SCH ×3 (09:14→17:00)
[2019-01-16] MEDS: ACIDOPHILUS/BULGARICUS 1 EACH TAB.CHEW GT SCH (09:14)
[2019-01-16] MEDS: FINASTERIDE (5 MG) 5 MG TABLET GT SCH (09:15)
[2019-01-16] MEDS: LINAGLIPTIN 5 MG TABLET GT SCH (09:15)
[2019-01-16] MEDS: CHLORHEXIDINE GLUCONATE 15 ML UDC MM SCH ×2 (09:16→21:08)
[2019-01-16] MEDS: ASCORBIC ACID 500 MG TABLET GT SCH (09:16)
[2019-01-16 12:00] VITALS: BP 122/72
[2019-01-16 18:00] VITALS: BP 141/83
[2019-01-16 20:49] VITALS: BP 149/67
[2019-01-16 21:00] VITALS: BP 149/67
[2019-01-16] MEDS: ATORVASTATIN 10 MG TABLET GT SCH (21:11)
[2019-01-16] MEDS: LATANOPROST EYE DROP 0.005% 2.5 ML BOTTLE EACHEYE SCH (21:11)
[2019-01-16] MEDS: TAMSULOSIN 0.4 MG CAP.SR.24H PO SCH (21:11)
[2019-01-17] VITALS (8 sets, daily range): BP systolic 108–148; BP diastolic 61–88
[2019-01-17] MEDS: SIMETHICONE SUSP 40 MG/0.6 ML BOTTLE GT SCH ×5 (00:14→23:46)
[2019-01-17] MEDS: REGLAN GT SCH ×5 (00:14→23:46)
[2019-01-17] MEDS: BLOOD SUGAR DIAGNOSTIC 1 EACH STRIP IN SCH ×5 (00:49→23:46)
[2019-01-17] MEDS: INSULIN REGULAR, HUMAN 100 UNIT/ML 10 ML VIAL SQ SCH ×5 (00:52→23:47)
[2019-01-17] MEDS: IPRATROPIUM NEB FS 0.5 MG/2.5 ML AMPUL.NEB IH SCH ×4 (01:53→20:08)
[2019-01-17] MEDS: PROSTAT (PYXIS) 30 ML UDC GT SCH ×3 (05:32→21:21)
[2019-01-17] MEDS: RANITIDINE GT SCH (05:32)
[2019-01-17] MEDS: VIMPAT 100 MG GT SCH ×2 (05:32→18:37)
--- NOTE | 2019-01-17 06:15 | NUR ---
Patient picked up by [facility] crew stable condition for dialysis at [facility].
[2019-01-17] MEDS: LINAGLIPTIN 5 MG TABLET GT SCH (11:15)
[2019-01-17] MEDS: DAKINS QUARTER STRENGTH (0.125%) 480 ML BOTTLE TOP SCH (11:15)
[2019-01-17] MEDS: FINASTERIDE (5 MG) 5 MG TABLET GT SCH (11:15)
[2019-01-17] MEDS: Z GUARD REMEDY 4 OZ OINT TP SCH ×2 (11:15→21:22)
[2019-01-17] MEDS: VIT B CMPLX 3/FA/VIT C/BIOTIN 1 TAB TABLET GT SCH (11:15)
[2019-01-17] MEDS: MUPIROCIN OINT 2% 22 GM TUBE TP SCH ×2 (11:15→21:21)
[2019-01-17] MEDS: POTASSIUM CHLORIDE 20 MEQ POWDER PACKET GT SCH (11:15)
[2019-01-17] MEDS: VITS A AND D/WHITE PET/LANOLIN 5 GM PACKET TP SCH ×2 (11:15→21:22)
[2019-01-17] MEDS: CARVEDILOL 6.25 MG TABLET GT SCH ×2 (11:15→21:21)
[2019-01-17] MEDS: HYDROGEN PEROXIDE 480 ML BOTTLE TP SCH ×2 (11:15→21:22)
[2019-01-17] MEDS: DORZOLAMIDE OPTH 2% 10 ML BOTTLE EACHEYE SCH ×3 (11:15→17:00)
[2019-01-17] MEDS: CHLORHEXIDINE GLUCONATE 15 ML UDC MM SCH ×2 (11:15→21:21)
[2019-01-17] MEDS: ASCORBIC ACID 500 MG TABLET GT SCH (11:15)
[2019-01-17] MEDS: MINERAL OIL/PETROL OINT 396 GM JAR TP SCH ×2 (11:15→21:21)
[2019-01-17] MEDS: ACIDOPHILUS/BULGARICUS 1 EACH TAB.CHEW GT SCH (11:15)
[2019-01-17] MEDS: NEPRO 1,000 ML BOTTLE GT PRN (11:39)
--- NOTE | 2019-01-17 15:01 | NUR ---
Called [facility] and spoke with Johana. 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
--- NOTE | 2019-01-17 17:21 | NUR ---
Received order from Dr Swenson to bathe pt with 2% chlorhexidine daily for 7 days due to CRE in the right hallux. Notified pt's son Dr Johns. Also educated pt's son to observe isolation precautions.
[2019-01-17] MEDS ORDERED: CHLORHEXIDINE GLUCONATE 4% 118 ML BOTTLE TP SCH (21:00)
[2019-01-17] MEDS: LATANOPROST EYE DROP 0.005% 2.5 ML BOTTLE EACHEYE SCH (21:22)
[2019-01-17] MEDS: ATORVASTATIN 10 MG TABLET GT SCH (21:22)
[2019-01-17] MEDS: TAMSULOSIN 0.4 MG CAP.SR.24H PO SCH (21:22)
--- NOTE | 2019-01-17 23:59 | NUR ---
RT PLACED PATIENT ON MECHANICAL VENTILATION ON ORDERED CPAP MODE W/ PS SETTINGS. NO DISTRESS NOTED AT THIS TIME. GAGGERMAN FOR CUFF DONE. TX GIVEN. PT SUCTIONED, SMALL AMT OF THICK WHITE YELLOW SECRETIONS NOTED. AMBUBAG AND BACK UP TRACH AT BEDSIDE. ALARMS SET AND AUDIBLE. VENT CONNECTED TO RED OUTLET. WILL CONT TO MONITOR. Addendum: 01/18/19 at 0244 by BLADIMIR MEEK RT Amended: Links added.
[2019-01-18] VITALS (8 sets, daily range): BP systolic 112–148; BP diastolic 52–73
[2019-01-18] MEDS: IPRATROPIUM NEB FS 0.5 MG/2.5 ML AMPUL.NEB IH SCH ×4 (01:57→20:07)
[2019-01-18] MEDS: REGLAN GT SCH ×4 (05:34→23:41)
[2019-01-18] MEDS: RANITIDINE GT SCH (05:34)
[2019-01-18] MEDS: SIMETHICONE SUSP 40 MG/0.6 ML BOTTLE GT SCH ×4 (05:34→23:41)
[2019-01-18] MEDS: PROSTAT (PYXIS) 30 ML UDC GT SCH ×3 (05:34→21:07)
[2019-01-18] MEDS: VIMPAT 100 MG GT SCH ×2 (05:34→18:02)
[2019-01-18] MEDS: BLOOD SUGAR DIAGNOSTIC 1 EACH STRIP IN SCH ×4 (05:40→23:42)
[2019-01-18] MEDS: INSULIN REGULAR, HUMAN 100 UNIT/ML 10 ML VIAL SQ SCH ×4 (05:41→23:45)
[2019-01-18] MEDS: MINERAL OIL/PETROL OINT 396 GM JAR TP SCH ×2 (09:00→21:07)
[2019-01-18] MEDS: CARVEDILOL 6.25 MG TABLET GT SCH ×2 (09:00→21:06)
[2019-01-18] MEDS: VITS A AND D/WHITE PET/LANOLIN 5 GM PACKET TP SCH ×2 (09:00→21:07)
[2019-01-18] MEDS: VIT B CMPLX 3/FA/VIT C/BIOTIN 1 TAB TABLET GT SCH (09:00)
[2019-01-18] MEDS: FINASTERIDE (5 MG) 5 MG TABLET GT SCH (09:00)
[2019-01-18] MEDS: Z GUARD REMEDY 4 OZ OINT TP SCH ×2 (09:00→21:07)
[2019-01-18] MEDS: HYDROGEN PEROXIDE 480 ML BOTTLE TP SCH ×2 (09:00→21:07)
[2019-01-18] MEDS: CHLORHEXIDINE GLUCONATE 15 ML UDC MM SCH ×2 (09:00→21:07)
[2019-01-18] MEDS: LINAGLIPTIN 5 MG TABLET GT SCH (09:00)
[2019-01-18] MEDS: CHLORHEXIDINE GLUCONATE 4% 118 ML BOTTLE TP SCH (09:00)
[2019-01-18] MEDS: ASCORBIC ACID 500 MG TABLET GT SCH (09:00)
[2019-01-18] MEDS: POTASSIUM CHLORIDE 20 MEQ POWDER PACKET GT SCH (09:00)
[2019-01-18] MEDS: ACIDOPHILUS/BULGARICUS 1 EACH TAB.CHEW GT SCH (09:00)
[2019-01-18] MEDS: DORZOLAMIDE OPTH 2% 10 ML BOTTLE EACHEYE SCH ×3 (09:00→17:00)
[2019-01-18] MEDS: DAKINS QUARTER STRENGTH (0.125%) 480 ML BOTTLE TOP SCH (09:00)
--- NOTE | 2019-01-18 12:30 | NUR ---
Seen and examined by Dr. Garduno, NNO given at this time. Patient's HR ranging in the low to high 60's.
[2019-01-18] MEDS: ATORVASTATIN 10 MG TABLET GT SCH (21:07)
[2019-01-18] MEDS: LATANOPROST EYE DROP 0.005% 2.5 ML BOTTLE EACHEYE SCH (21:07)
[2019-01-18] MEDS: TAMSULOSIN 0.4 MG CAP.SR.24H PO SCH (21:08)
[2019-01-19] VITALS (9 sets, daily range): BP systolic 111–147; BP diastolic 53–92
[2019-01-19] MEDS: IPRATROPIUM NEB FS 0.5 MG/2.5 ML AMPUL.NEB IH SCH ×4 (01:53→19:21)
--- NOTE | 2019-01-19 02:31 | NUR ---
RT PLACED PATIENT ON MECHANICAL VENTILATION ON ORDERED CPAP MODE W/ PS SETTINGS. NO DISTRESS NOTED AT THIS TIME. POST CLOSER FOR CUFF DONE. PT SUCTIONED, MODERATE AMOUNT OF THICK WHITE YELLOW SECRETIONS NOTED. AMBUBAG AND BACK UP TRACH AT BEDSIDE. ALARMS SET AND AUDIBLE. VENT CONNECTED TO RED OUTLET. WILL CONT TO MONITOR. Addendum: 01/19/19 at 0232 by BLADIMIR MEEK RT Amended: Links added.
[2019-01-19] MEDS: RANITIDINE GT SCH (05:50)
[2019-01-19] MEDS: SIMETHICONE SUSP 40 MG/0.6 ML BOTTLE GT SCH ×4 (05:50→23:47)
[2019-01-19] MEDS: REGLAN GT SCH ×4 (05:50→23:45)
[2019-01-19] MEDS: PROSTAT (PYXIS) 30 ML UDC GT SCH ×3 (05:50→20:51)
[2019-01-19] MEDS: BLOOD SUGAR DIAGNOSTIC 1 EACH STRIP IN SCH ×4 (05:51→23:45)
[2019-01-19] MEDS: VIMPAT 100 MG GT SCH ×2 (05:51→18:00)
[2019-01-19] MEDS: INSULIN REGULAR, HUMAN 100 UNIT/ML 10 ML VIAL SQ SCH ×4 (05:52→23:46)
[2019-01-19] MEDS: CARVEDILOL 6.25 MG TABLET GT SCH ×2 (11:15→20:51)
[2019-01-19] MEDS: VITS A AND D/WHITE PET/LANOLIN 5 GM PACKET TP SCH ×2 (11:15→20:52)
[2019-01-19] MEDS: HYDROGEN PEROXIDE 480 ML BOTTLE TP SCH ×2 (11:15→20:51)
[2019-01-19] MEDS: CHLORHEXIDINE GLUCONATE 15 ML UDC MM SCH ×2 (11:15→20:51)
[2019-01-19] MEDS: DORZOLAMIDE OPTH 2% 10 ML BOTTLE EACHEYE SCH ×3 (11:15→17:00)
[2019-01-19] MEDS: Z GUARD REMEDY 4 OZ OINT TP SCH ×2 (11:15→20:51)
[2019-01-19] MEDS: MINERAL OIL/PETROL OINT 396 GM JAR TP SCH ×2 (11:15→20:51)
[2019-01-19] MEDS: DAKINS QUARTER STRENGTH (0.125%) 480 ML BOTTLE TOP SCH (11:15)
[2019-01-19] MEDS: FINASTERIDE (5 MG) 5 MG TABLET GT SCH (11:15)
[2019-01-19] MEDS: POTASSIUM CHLORIDE 20 MEQ POWDER PACKET GT SCH (11:15)
[2019-01-19] MEDS: ACIDOPHILUS/BULGARICUS 1 EACH TAB.CHEW GT SCH (11:15)
[2019-01-19] MEDS: ASCORBIC ACID 500 MG TABLET GT SCH (11:15)
[2019-01-19] MEDS: CHLORHEXIDINE GLUCONATE 4% 118 ML BOTTLE TP SCH (11:15)
[2019-01-19] MEDS: VIT B CMPLX 3/FA/VIT C/BIOTIN 1 TAB TABLET GT SCH (11:15)
[2019-01-19] MEDS: LINAGLIPTIN 5 MG TABLET GT SCH (11:15)
--- NOTE | 2019-01-19 11:15 | NUR ---
Resident came back from dialysis, no s/s of resp. distress, vital signs stable. Jeremiah Cath on left upper chest intact, dressing dry, no bleeding noted.
--- NOTE | 2019-01-19 19:00 | NUR ---
Asked BRANDO Collier, when to discontinue isolation. She referred it with Dr. Swenson and said to finish Chlorhexidine bath and will need to reculture the R toe. BRANDO Webb said that she will endorsed to her colleague to follow-up on this next week if reculturing is needed since the site is healed.
[2019-01-19] MEDS: TAMSULOSIN 0.4 MG CAP.SR.24H PO SCH (21:02)
[2019-01-19] MEDS: ATORVASTATIN 10 MG TABLET GT SCH (21:02)
[2019-01-19] MEDS: LATANOPROST EYE DROP 0.005% 2.5 ML BOTTLE EACHEYE SCH (21:02)
[2019-01-20] VITALS (8 sets, daily range): BP systolic 107–153; BP diastolic 55–80
[2019-01-20] MEDS: IPRATROPIUM NEB FS 0.5 MG/2.5 ML AMPUL.NEB IH SCH ×4 (01:27→20:10)
[2019-01-20] MEDS: PROSTAT (PYXIS) 30 ML UDC GT SCH ×3 (05:37→20:37)
[2019-01-20] MEDS: RANITIDINE GT SCH (05:37)
[2019-01-20] MEDS: REGLAN GT SCH ×3 (05:37→17:35)
[2019-01-20] MEDS: SIMETHICONE SUSP 40 MG/0.6 ML BOTTLE GT SCH ×3 (05:37→17:35)
[2019-01-20] MEDS: BLOOD SUGAR DIAGNOSTIC 1 EACH STRIP IN SCH ×3 (05:38→17:50)
[2019-01-20] MEDS: VIMPAT 100 MG GT SCH ×2 (05:38→17:35)
[2019-01-20] MEDS: INSULIN REGULAR, HUMAN 100 UNIT/ML 10 ML VIAL SQ SCH ×3 (05:41→17:50)
[2019-01-20] MEDS: Z GUARD REMEDY 4 OZ OINT TP SCH ×2 (09:00→20:38)
[2019-01-20] MEDS: MINERAL OIL/PETROL OINT 396 GM JAR TP SCH ×2 (09:00→20:38)
[2019-01-20] MEDS: CHLORHEXIDINE GLUCONATE 4% 118 ML BOTTLE TP SCH (09:00)
[2019-01-20] MEDS: HYDROGEN PEROXIDE 480 ML BOTTLE TP SCH ×2 (09:00→20:38)
[2019-01-20] MEDS: VITS A AND D/WHITE PET/LANOLIN 5 GM PACKET TP SCH ×2 (09:00→20:38)
[2019-01-20] MEDS: CARVEDILOL 6.25 MG TABLET GT SCH ×2 (09:28→20:37)
[2019-01-20] MEDS: DORZOLAMIDE OPTH 2% 10 ML BOTTLE EACHEYE SCH ×3 (09:28→17:34)
[2019-01-20] MEDS: ACIDOPHILUS/BULGARICUS 1 EACH TAB.CHEW GT SCH (09:29)
[2019-01-20] MEDS: POTASSIUM CHLORIDE 20 MEQ POWDER PACKET GT SCH (09:29)
[2019-01-20] MEDS: VIT B CMPLX 3/FA/VIT C/BIOTIN 1 TAB TABLET GT SCH (09:30)
[2019-01-20] MEDS: FINASTERIDE (5 MG) 5 MG TABLET GT SCH (09:30)
[2019-01-20] MEDS: LINAGLIPTIN 5 MG TABLET GT SCH (09:31)
[2019-01-20] MEDS: CHLORHEXIDINE GLUCONATE 15 ML UDC MM SCH ×2 (09:31→20:37)
[2019-01-20] MEDS: ASCORBIC ACID 500 MG TABLET GT SCH (09:31)
[2019-01-20] MEDS: NEPRO 1,000 ML BOTTLE GT PRN (17:41)
[2019-01-20] MEDS: ATORVASTATIN 10 MG TABLET GT SCH (21:05)
[2019-01-20] MEDS: TAMSULOSIN 0.4 MG CAP.SR.24H PO SCH (21:05)
[2019-01-20] MEDS: LATANOPROST EYE DROP 0.005% 2.5 ML BOTTLE EACHEYE SCH (21:05)
[2019-01-21] VITALS (8 sets, daily range): BP systolic 109–142; BP diastolic 58–75
[2019-01-21] MEDS: BLOOD SUGAR DIAGNOSTIC 1 EACH STRIP IN SCH ×5 (01:20→23:30)
[2019-01-21] MEDS: INSULIN REGULAR, HUMAN 100 UNIT/ML 10 ML VIAL SQ SCH ×5 (01:20→23:31)
[2019-01-21] MEDS: IPRATROPIUM NEB FS 0.5 MG/2.5 ML AMPUL.NEB IH SCH ×4 (01:40→19:39)
[2019-01-21] MEDS: PROSTAT (PYXIS) 30 ML UDC GT SCH ×3 (05:22→21:31)
[2019-01-21] MEDS: SIMETHICONE SUSP 40 MG/0.6 ML BOTTLE GT SCH ×5 (05:40→23:30)
[2019-01-21] MEDS: REGLAN GT SCH ×5 (05:40→23:30)
[2019-01-21] MEDS: VIMPAT 100 MG GT SCH ×2 (05:41→17:54)
[2019-01-21] MEDS: RANITIDINE GT SCH (05:41)
[2019-01-21] MEDS: VITS A AND D/WHITE PET/LANOLIN 5 GM PACKET TP SCH ×2 (09:00→21:31)
[2019-01-21] MEDS: MINERAL OIL/PETROL OINT 396 GM JAR TP SCH ×2 (09:00→21:31)
[2019-01-21] MEDS: HYDROGEN PEROXIDE 480 ML BOTTLE TP SCH ×2 (09:00→21:31)
[2019-01-21] MEDS: CHLORHEXIDINE GLUCONATE 4% 118 ML BOTTLE TP SCH (09:00)
[2019-01-21] MEDS: Z GUARD REMEDY 4 OZ OINT TP SCH ×2 (09:00→21:31)
[2019-01-21] MEDS: DORZOLAMIDE OPTH 2% 10 ML BOTTLE EACHEYE SCH ×3 (09:31→17:54)
[2019-01-21] MEDS: FINASTERIDE (5 MG) 5 MG TABLET GT SCH (09:33)
[2019-01-21] MEDS: LINAGLIPTIN 5 MG TABLET GT SCH (09:33)
[2019-01-21] MEDS: POTASSIUM CHLORIDE 20 MEQ POWDER PACKET GT SCH (09:33)
[2019-01-21] MEDS: VIT B CMPLX 3/FA/VIT C/BIOTIN 1 TAB TABLET GT SCH (09:33)
[2019-01-21] MEDS: ASCORBIC ACID 500 MG TABLET GT SCH (09:33)
[2019-01-21] MEDS: ACIDOPHILUS/BULGARICUS 1 EACH TAB.CHEW GT SCH (09:33)
[2019-01-21] MEDS: CHLORHEXIDINE GLUCONATE 15 ML UDC MM SCH ×2 (09:40→21:31)
[2019-01-21] MEDS: CARVEDILOL 6.25 MG TABLET GT SCH ×2 (09:40→21:30)
[2019-01-21] MEDS: NEPRO 1,000 ML BOTTLE GT PRN (16:31)
[2019-01-21] MEDS: LATANOPROST EYE DROP 0.005% 2.5 ML BOTTLE EACHEYE SCH (21:31)
[2019-01-21] MEDS: ATORVASTATIN 10 MG TABLET GT SCH (21:31)
[2019-01-21] MEDS: TAMSULOSIN 0.4 MG CAP.SR.24H PO SCH (21:31)
[2019-01-22] MEDS: IPRATROPIUM NEB FS 0.5 MG/2.5 ML AMPUL.NEB IH SCH ×4 (00:47→19:27)
[2019-01-22 03:23] VITALS: BP 119/74
[2019-01-22] MEDS: SIMETHICONE SUSP 40 MG/0.6 ML BOTTLE GT SCH ×4 (05:05→23:46)
[2019-01-22] MEDS: BLOOD SUGAR DIAGNOSTIC 1 EACH STRIP IN SCH ×4 (05:05→23:42)
[2019-01-22] MEDS: RANITIDINE GT SCH (05:05)
[2019-01-22] MEDS: VIMPAT 100 MG GT SCH ×2 (05:05→18:36)
[2019-01-22] MEDS: REGLAN GT SCH ×4 (05:05→23:46)
[2019-01-22] MEDS: PROSTAT (PYXIS) 30 ML UDC GT SCH ×3 (05:05→21:10)
[2019-01-22] MEDS: INSULIN REGULAR, HUMAN 100 UNIT/ML 10 ML VIAL SQ SCH ×4 (05:06→23:44)
[2019-01-22 05:09] VITALS: BP 118/58
[2019-01-22] MEDS: CARVEDILOL 6.25 MG TABLET GT SCH ×2 (09:00→21:10)
[2019-01-22] MEDS: DORZOLAMIDE OPTH 2% 10 ML BOTTLE EACHEYE SCH ×3 (09:00→17:00)
[2019-01-22] MEDS: ACIDOPHILUS/BULGARICUS 1 EACH TAB.CHEW GT SCH (09:00)
[2019-01-22] MEDS: VIT B CMPLX 3/FA/VIT C/BIOTIN 1 TAB TABLET GT SCH (09:00)
[2019-01-22] MEDS: FINASTERIDE (5 MG) 5 MG TABLET GT SCH (09:00)
[2019-01-22] MEDS: POTASSIUM CHLORIDE 20 MEQ POWDER PACKET GT SCH (09:00)
[2019-01-22] MEDS: ASCORBIC ACID 500 MG TABLET GT SCH (09:00)
[2019-01-22] MEDS: CHLORHEXIDINE GLUCONATE 15 ML UDC MM SCH ×2 (09:00→21:10)
[2019-01-22] MEDS: LINAGLIPTIN 5 MG TABLET GT SCH (09:00)
[2019-01-22] MEDS: Z GUARD REMEDY 4 OZ OINT TP SCH ×2 (11:15→21:11)
[2019-01-22] MEDS: CHLORHEXIDINE GLUCONATE 4% 118 ML BOTTLE TP SCH (11:15)
[2019-01-22] MEDS: HYDROGEN PEROXIDE 480 ML BOTTLE TP SCH ×2 (11:15→21:11)
[2019-01-22] MEDS: VITS A AND D/WHITE PET/LANOLIN 5 GM PACKET TP SCH ×2 (11:15→21:11)
[2019-01-22] MEDS: MINERAL OIL/PETROL OINT 396 GM JAR TP SCH ×2 (11:15→21:11)
[2019-01-22] MEDS: NEPRO 1,000 ML BOTTLE GT PRN (11:17)
[2019-01-22 13:00] VITALS: BP 120/60
[2019-01-22 18:00] VITALS: BP 126/61
[2019-01-22 20:53] VITALS: BP 135/76
[2019-01-22 21:00] VITALS: BP 135/76
[2019-01-22] MEDS: ATORVASTATIN 10 MG TABLET GT SCH (21:11)
[2019-01-22] MEDS: LATANOPROST EYE DROP 0.005% 2.5 ML BOTTLE EACHEYE SCH (21:11)
[2019-01-22] MEDS: TAMSULOSIN 0.4 MG CAP.SR.24H PO SCH (21:11)
[2019-01-23] VITALS (8 sets, daily range): BP systolic 108–149; BP diastolic 53–89
[2019-01-23] MEDS: IPRATROPIUM NEB FS 0.5 MG/2.5 ML AMPUL.NEB IH SCH ×4 (00:55→19:27)
[2019-01-23] MEDS: PROSTAT (PYXIS) 30 ML UDC GT SCH ×3 (04:59→21:29)
[2019-01-23] MEDS: INSULIN REGULAR, HUMAN 100 UNIT/ML 10 ML VIAL SQ SCH ×4 (05:49→23:57)
[2019-01-23] MEDS: REGLAN GT SCH ×4 (05:50→23:56)
[2019-01-23] MEDS: SIMETHICONE SUSP 40 MG/0.6 ML BOTTLE GT SCH ×4 (05:50→23:56)
[2019-01-23] MEDS: RANITIDINE GT SCH (05:50)
[2019-01-23] MEDS: BLOOD SUGAR DIAGNOSTIC 1 EACH STRIP IN SCH ×4 (05:50→23:56)
[2019-01-23] MEDS: VIMPAT 100 MG GT SCH ×2 (05:50→18:12)
[2019-01-23] MEDS: LINAGLIPTIN 5 MG TABLET GT SCH (09:00)
[2019-01-23] MEDS: ACIDOPHILUS/BULGARICUS 1 EACH TAB.CHEW GT SCH (09:00)
[2019-01-23] MEDS: CHLORHEXIDINE GLUCONATE 15 ML UDC MM SCH ×2 (09:00→21:29)
[2019-01-23] MEDS: ASCORBIC ACID 500 MG TABLET GT SCH (09:00)
[2019-01-23] MEDS: CARVEDILOL 6.25 MG TABLET GT SCH ×2 (09:00→21:29)
[2019-01-23] MEDS: VITS A AND D/WHITE PET/LANOLIN 5 GM PACKET TP SCH ×2 (09:00→21:29)
[2019-01-23] MEDS: HYDROGEN PEROXIDE 480 ML BOTTLE TP SCH ×2 (09:00→21:29)
[2019-01-23] MEDS: Z GUARD REMEDY 4 OZ OINT TP SCH ×2 (09:00→21:29)
[2019-01-23] MEDS: MINERAL OIL/PETROL OINT 396 GM JAR TP SCH ×2 (09:00→21:29)
[2019-01-23] MEDS: FINASTERIDE (5 MG) 5 MG TABLET GT SCH (09:00)
[2019-01-23] MEDS: DORZOLAMIDE OPTH 2% 10 ML BOTTLE EACHEYE SCH ×3 (09:00→17:00)
[2019-01-23] MEDS: CHLORHEXIDINE GLUCONATE 4% 118 ML BOTTLE TP SCH (09:00)
[2019-01-23] MEDS: VIT B CMPLX 3/FA/VIT C/BIOTIN 1 TAB TABLET GT SCH (09:00)
[2019-01-23] MEDS: POTASSIUM CHLORIDE 20 MEQ POWDER PACKET GT SCH (09:00)
--- NOTE | 2019-01-23 10:00 | NUR ---
Seen and examined by Dr. Ramírez, NNO given.
[2019-01-23] MEDS: NEPRO 1,000 ML BOTTLE GT PRN (13:12)
--- NOTE | 2019-01-23 14:09 | NUR ---
CHANI communicated to pt's son Dr. Johns about IDT meeting this Thursday 01/25 at 12:30. Son will be attending via conference call
[2019-01-23] MEDS: ATORVASTATIN 10 MG TABLET GT SCH (21:29)
[2019-01-23] MEDS: TAMSULOSIN 0.4 MG CAP.SR.24H PO SCH (21:29)
[2019-01-23] MEDS: LATANOPROST EYE DROP 0.005% 2.5 ML BOTTLE EACHEYE SCH (21:29)
[2019-01-24] VITALS (8 sets, daily range): BP systolic 101–153; BP diastolic 54–81
[2019-01-24] MEDS: IPRATROPIUM NEB FS 0.5 MG/2.5 ML AMPUL.NEB IH SCH ×4 (00:33→19:22)
[2019-01-24] MEDS: SIMETHICONE SUSP 40 MG/0.6 ML BOTTLE GT SCH ×3 (05:12→17:40)
[2019-01-24] MEDS: PROSTAT (PYXIS) 30 ML UDC GT SCH ×3 (05:12→21:46)
[2019-01-24] MEDS: RANITIDINE GT SCH (05:12)
[2019-01-24] MEDS: VIMPAT 100 MG GT SCH ×2 (05:12→17:40)
[2019-01-24] MEDS: REGLAN GT SCH ×3 (05:12→17:40)
[2019-01-24] MEDS: BLOOD SUGAR DIAGNOSTIC 1 EACH STRIP IN SCH ×3 (05:35→18:53)
[2019-01-24] MEDS: INSULIN REGULAR, HUMAN 100 UNIT/ML 10 ML VIAL SQ SCH ×3 (05:38→18:53)
[2019-01-24] MEDS: FINASTERIDE (5 MG) 5 MG TABLET GT SCH (10:30)
[2019-01-24] MEDS: DORZOLAMIDE OPTH 2% 10 ML BOTTLE EACHEYE SCH ×3 (10:30→17:40)
[2019-01-24] MEDS: CARVEDILOL 6.25 MG TABLET GT SCH ×2 (10:30→21:46)
[2019-01-24] MEDS: CHLORHEXIDINE GLUCONATE 15 ML UDC MM SCH ×2 (10:30→21:46)
[2019-01-24] MEDS: ASCORBIC ACID 500 MG TABLET GT SCH (10:30)
[2019-01-24] MEDS: ACIDOPHILUS/BULGARICUS 1 EACH TAB.CHEW GT SCH (10:30)
[2019-01-24] MEDS: POTASSIUM CHLORIDE 20 MEQ POWDER PACKET GT SCH (10:30)
[2019-01-24] MEDS: LINAGLIPTIN 5 MG TABLET GT SCH (10:30)
[2019-01-24] MEDS: MINERAL OIL/PETROL OINT 396 GM JAR TP SCH ×2 (11:02→21:46)
[2019-01-24] MEDS: VIT B CMPLX 3/FA/VIT C/BIOTIN 1 TAB TABLET GT SCH (11:02)
[2019-01-24] MEDS: HYDROGEN PEROXIDE 480 ML BOTTLE TP SCH ×2 (11:02→21:46)
[2019-01-24] MEDS: Z GUARD REMEDY 4 OZ OINT TP SCH ×2 (11:02→21:46)
[2019-01-24] MEDS: VITS A AND D/WHITE PET/LANOLIN 5 GM PACKET TP SCH ×2 (11:03→21:46)
[2019-01-24] MEDS: ATORVASTATIN 10 MG TABLET GT SCH (21:46)
[2019-01-24] MEDS: TAMSULOSIN 0.4 MG CAP.SR.24H PO SCH (21:46)
[2019-01-24] MEDS: LATANOPROST EYE DROP 0.005% 2.5 ML BOTTLE EACHEYE SCH (21:46)
[2019-01-25] VITALS (8 sets, daily range): BP systolic 118–148; BP diastolic 53–85
[2019-01-25] MEDS: IPRATROPIUM NEB FS 0.5 MG/2.5 ML AMPUL.NEB IH SCH ×4 (00:37→20:16)
[2019-01-25] MEDS: REGLAN GT SCH ×5 (00:55→23:58)
[2019-01-25] MEDS: SIMETHICONE SUSP 40 MG/0.6 ML BOTTLE GT SCH ×5 (00:55→23:58)
[2019-01-25] MEDS: BLOOD SUGAR DIAGNOSTIC 1 EACH STRIP IN SCH ×5 (00:55→23:59)
[2019-01-25] MEDS: INSULIN REGULAR, HUMAN 100 UNIT/ML 10 ML VIAL SQ SCH ×4 (00:56→17:43)
[2019-01-25] MEDS: PROSTAT (PYXIS) 30 ML UDC GT SCH ×3 (05:00→21:12)
[2019-01-25] MEDS: RANITIDINE GT SCH (06:01)
[2019-01-25] MEDS: VIMPAT 100 MG GT SCH ×2 (06:01→17:43)
[2019-01-25] MEDS: CARVEDILOL 6.25 MG TABLET GT SCH ×2 (09:17→21:12)
[2019-01-25] MEDS: ASCORBIC ACID 500 MG TABLET GT SCH (09:17)
[2019-01-25] MEDS: HYDROGEN PEROXIDE 480 ML BOTTLE TP SCH ×2 (09:17→21:13)
[2019-01-25] MEDS: POTASSIUM CHLORIDE 20 MEQ POWDER PACKET GT SCH (09:17)
[2019-01-25] MEDS: DORZOLAMIDE OPTH 2% 10 ML BOTTLE EACHEYE SCH ×3 (09:17→17:42)
[2019-01-25] MEDS: VITS A AND D/WHITE PET/LANOLIN 5 GM PACKET TP SCH ×2 (09:17→21:13)
[2019-01-25] MEDS: VIT B CMPLX 3/FA/VIT C/BIOTIN 1 TAB TABLET GT SCH (09:17)
[2019-01-25] MEDS: MINERAL OIL/PETROL OINT 396 GM JAR TP SCH ×2 (09:17→21:13)
[2019-01-25] MEDS: FINASTERIDE (5 MG) 5 MG TABLET GT SCH (09:17)
[2019-01-25] MEDS: LINAGLIPTIN 5 MG TABLET GT SCH (09:17)
[2019-01-25] MEDS: ACIDOPHILUS/BULGARICUS 1 EACH TAB.CHEW GT SCH (09:17)
[2019-01-25] MEDS: CHLORHEXIDINE GLUCONATE 15 ML UDC MM SCH ×2 (09:17→21:13)
[2019-01-25] MEDS: Z GUARD REMEDY 4 OZ OINT TP SCH ×2 (09:17→21:13)
[2019-01-25] MEDS: NEPRO 1,000 ML BOTTLE GT PRN (12:30)
--- NOTE | 2019-01-25 18:50 | NUR ---
INTERDISCIPLINARY TEAM CONFERENCE (IDT) was held today. Resident's son Dr. Johns participated in today's IDT meeting via phone conference. Dr. Ramírez and the interdisciplinary team reviewed the current plan of care in detail. Orders as well as treatment and medications were reviewed. According to Dr. Johns he is concern that HR in the low side especially when he is sleeping and once patient is done with Chlorhexidine solution, it is OK to reculture the R great toe for isolation clearance. Dr. Johns also wants to know whether patient is on ventilator, informed him that he is not on ventilator when he goes to dialysis. He was under the impression that he is on ventilator at the dialysis center, informed son that will clarify with the shift production associate nurses. According to shift production associate nurses patient on cool aerosol when he leave for dialysis. Dr. Garduno also made round, informed MD of son's concern regarding low HR, like 48 to low 50's. He said that it is normal for him especially when a person is sleeping for HR to go down. No new order given. He said that it is not a concern at this time. Dr. Aden, geography teacher also made aware of son's concern that surrounding tissue of the R great toe nail may be necrotic. MD said he will take a look when he do his round. Endorsed.
[2019-01-25] MEDS: TAMSULOSIN 0.4 MG CAP.SR.24H PO SCH (21:13)
[2019-01-25] MEDS: LATANOPROST EYE DROP 0.005% 2.5 ML BOTTLE EACHEYE SCH (21:13)
[2019-01-25] MEDS: ATORVASTATIN 10 MG TABLET GT SCH (21:13)
--- NOTE | 2019-01-26 00:01 | NUR ---
RT PLACED PATIENT ON MECHANICAL VENTILATION ON ORDERED CPAP MODE W/ PS SETTINGS. NO DISTRESS NOTED AT THIS TIME. BIG DATA ENGINEER FOR CUFF DONE. PT SUCTIONED, MODERATE AMOUNT OF THICK WHITE YELLOW SECRETIONS NOTED. AMBUBAG AND BACK UP TRACH AT BEDSIDE. ALARMS ARE SET AND AUDIBLE. VENT CONNECTED TO RED OUTLET. WILL CONT TO MONITOR. Addendum: 01/26/19 at 0125 by BLADIMIR MEEK RT Amended: Links added.
[2019-01-26 01:20] VITALS: BP 143/77
[2019-01-26] MEDS: IPRATROPIUM NEB FS 0.5 MG/2.5 ML AMPUL.NEB IH SCH ×4 (02:09→20:07)
[2019-01-26 05:00] VITALS: BP 118/82
[2019-01-26] MEDS: REGLAN GT SCH ×3 (05:24→17:22)
[2019-01-26] MEDS: BLOOD SUGAR DIAGNOSTIC 1 EACH STRIP IN SCH ×3 (05:24→17:22)
[2019-01-26] MEDS: SIMETHICONE SUSP 40 MG/0.6 ML BOTTLE GT SCH ×3 (05:24→17:22)
[2019-01-26] MEDS: VIMPAT 100 MG GT SCH ×2 (05:24→17:22)
[2019-01-26] MEDS: PROSTAT (PYXIS) 30 ML UDC GT SCH ×3 (05:24→21:07)
[2019-01-26] MEDS: RANITIDINE GT SCH (05:24)
[2019-01-26] MEDS: INSULIN REGULAR, HUMAN 100 UNIT/ML 10 ML VIAL SQ SCH ×4 (05:24→17:23)
[2019-01-26] MEDS: CARVEDILOL 6.25 MG TABLET GT SCH ×2 (09:00→21:07)
[2019-01-26] MEDS: CHLORHEXIDINE GLUCONATE 15 ML UDC MM SCH ×2 (09:00→21:07)
[2019-01-26] MEDS: DORZOLAMIDE OPTH 2% 10 ML BOTTLE EACHEYE SCH ×3 (09:00→17:22)
[2019-01-26] MEDS: LINAGLIPTIN 5 MG TABLET GT SCH (09:00)
[2019-01-26] MEDS: ACIDOPHILUS/BULGARICUS 1 EACH TAB.CHEW GT SCH (09:00)
[2019-01-26] MEDS: VIT B CMPLX 3/FA/VIT C/BIOTIN 1 TAB TABLET GT SCH (09:00)
[2019-01-26] MEDS: FINASTERIDE (5 MG) 5 MG TABLET GT SCH (09:00)
[2019-01-26] MEDS: ASCORBIC ACID 500 MG TABLET GT SCH (09:00)
[2019-01-26] MEDS: POTASSIUM CHLORIDE 20 MEQ POWDER PACKET GT SCH (09:00)
[2019-01-26 10:40] VITALS: BP 134/64
--- NOTE | 2019-01-26 10:48 | NUR ---
@ 1040 am Resident returned from S/P hemedialysis treatment, no s/s of any complications noted. LT upper chest jillian catheter intact, no bleeding noted. Covered with dressing, clean and dry. Pt afebrile. Resident in stable condition. kept comfortable in bed.
[2019-01-26] MEDS: MINERAL OIL/PETROL OINT 396 GM JAR TP SCH ×2 (11:00→21:07)
[2019-01-26] MEDS: HYDROGEN PEROXIDE 480 ML BOTTLE TP SCH ×2 (11:00→21:07)
[2019-01-26] MEDS: VITS A AND D/WHITE PET/LANOLIN 5 GM PACKET TP SCH ×2 (11:00→21:08)
[2019-01-26] MEDS: Z GUARD REMEDY 4 OZ OINT TP SCH ×2 (11:00→21:08)
[2019-01-26 13:00] VITALS: BP 118/77
--- NOTE | 2019-01-26 13:15 | NUR ---
Seen and examined by Jon Collier [facility] no new orders.
--- NOTE | 2019-01-26 17:12 | NUR ---
Per [facility] pharmacy ranitidine 15mg give 10ml at 0600 am not covered under insurance, talked to pharmacy at [facility] no liquid is available, left a message to Dr. Garduno regarding the medication.
[2019-01-26 18:51] VITALS: BP 136/72
[2019-01-26 20:37] VITALS: BP 138/68
[2019-01-26] MEDS: ATORVASTATIN 10 MG TABLET GT SCH (21:08)
[2019-01-26] MEDS: LATANOPROST EYE DROP 0.005% 2.5 ML BOTTLE EACHEYE SCH (21:08)
[2019-01-26] MEDS: TAMSULOSIN 0.4 MG CAP.SR.24H PO SCH (21:08)
[2019-01-27] VITALS (9 sets, daily range): BP systolic 123–149; BP diastolic 55–67
[2019-01-27] MEDS: BLOOD SUGAR DIAGNOSTIC 1 EACH STRIP IN SCH ×4 (00:37→18:11)
[2019-01-27] MEDS: REGLAN GT SCH ×4 (00:37→18:11)
[2019-01-27] MEDS: SIMETHICONE SUSP 40 MG/0.6 ML BOTTLE GT SCH ×4 (00:37→18:11)
[2019-01-27] MEDS: INSULIN REGULAR, HUMAN 100 UNIT/ML 10 ML VIAL SQ SCH ×4 (00:38→18:12)
[2019-01-27] MEDS: IPRATROPIUM NEB FS 0.5 MG/2.5 ML AMPUL.NEB IH SCH ×4 (00:56→19:36)
[2019-01-27] MEDS: PROSTAT (PYXIS) 30 ML UDC GT SCH ×3 (05:35→21:12)
[2019-01-27] MEDS: VIMPAT 100 MG GT SCH ×2 (05:35→18:11)
[2019-01-27] MEDS: FAMOTIDINE (20 MG) 20 MG TABLET GT SCH (05:35)
[2019-01-27] MEDS: NEPRO 1,000 ML BOTTLE GT PRN ×2 (06:50→06:57)
[2019-01-27] MEDS: MINERAL OIL/PETROL OINT 396 GM JAR TP SCH ×2 (08:33→21:12)
[2019-01-27] MEDS: CARVEDILOL 6.25 MG TABLET GT SCH ×2 (08:33→21:12)
[2019-01-27] MEDS: CHLORHEXIDINE GLUCONATE 15 ML UDC MM SCH ×2 (08:33→21:12)
[2019-01-27] MEDS: VITS A AND D/WHITE PET/LANOLIN 5 GM PACKET TP SCH ×2 (08:33→21:12)
[2019-01-27] MEDS: DORZOLAMIDE OPTH 2% 10 ML BOTTLE EACHEYE SCH ×3 (08:33→17:00)
[2019-01-27] MEDS: VIT B CMPLX 3/FA/VIT C/BIOTIN 1 TAB TABLET GT SCH (08:33)
[2019-01-27] MEDS: Z GUARD REMEDY 4 OZ OINT TP SCH ×2 (08:33→21:12)
[2019-01-27] MEDS: POTASSIUM CHLORIDE 20 MEQ POWDER PACKET GT SCH (08:33)
[2019-01-27] MEDS: ASCORBIC ACID 500 MG TABLET GT SCH (08:33)
[2019-01-27] MEDS: FINASTERIDE (5 MG) 5 MG TABLET GT SCH (08:33)
[2019-01-27] MEDS: HYDROGEN PEROXIDE 480 ML BOTTLE TP SCH ×2 (08:33→21:12)
[2019-01-27] MEDS: LINAGLIPTIN 5 MG TABLET GT SCH (08:33)
[2019-01-27] MEDS: ACIDOPHILUS/BULGARICUS 1 EACH TAB.CHEW GT SCH (08:33)
--- NOTE | 2019-01-27 17:00 | NUR ---
@ 1700 Routine trach tube change done by 2 RT's and licensed at bedside, procedure tolerated well. Noted with minimal bleeding. Trach intact at midline, airway patent, no s/s of respiratory distress noted. Will continue to monitor.
[2019-01-27] MEDS: LATANOPROST EYE DROP 0.005% 2.5 ML BOTTLE EACHEYE SCH (21:12)
[2019-01-27] MEDS: ATORVASTATIN 10 MG TABLET GT SCH (21:12)
[2019-01-27] MEDS: TAMSULOSIN 0.4 MG CAP.SR.24H PO SCH (21:13)
[2019-01-28] VITALS (8 sets, daily range): BP systolic 116–138; BP diastolic 58–81
[2019-01-28] MEDS: SIMETHICONE SUSP 40 MG/0.6 ML BOTTLE GT SCH ×5 (00:22→23:29)
[2019-01-28] MEDS: REGLAN GT SCH ×5 (00:22→23:29)
[2019-01-28] MEDS: BLOOD SUGAR DIAGNOSTIC 1 EACH STRIP IN SCH ×5 (00:22→23:29)
[2019-01-28] MEDS: INSULIN REGULAR, HUMAN 100 UNIT/ML 10 ML VIAL SQ SCH ×5 (00:23→23:30)
[2019-01-28] MEDS: IPRATROPIUM NEB FS 0.5 MG/2.5 ML AMPUL.NEB IH SCH ×4 (01:55→19:37)
[2019-01-28] MEDS: VIMPAT 100 MG GT SCH ×2 (05:55→17:22)
[2019-01-28] MEDS: PROSTAT (PYXIS) 30 ML UDC GT SCH ×3 (05:55→21:14)
[2019-01-28] MEDS: FAMOTIDINE (20 MG) 20 MG TABLET GT SCH (05:55)
--- NOTE | 2019-01-28 08:04 | NUR ---
INTERDISCIPLINARY PLAN OF CARE CONFERENCE was held today. Resident's son Nat attended via conference call. Charge nurse Forrest informed son that pt lost few pounds , which is normal with dialysis patients. The son asked the team about patient's toe and if an orthopedist had looked at it. No lack of circulation around the toe was observed. Dr. Ramírez and the interdisciplinary team discussed the current plan of care in detail. Current orders as well as treatments and medications were reviewed. No new orders. Addendum: 01/28/19 at 0809 by SANTOSH BAIG IDT was held on 01/25
[2019-01-28] MEDS: ACIDOPHILUS/BULGARICUS 1 EACH TAB.CHEW GT SCH (09:38)
[2019-01-28] MEDS: MINERAL OIL/PETROL OINT 396 GM JAR TP SCH ×2 (09:38→21:14)
[2019-01-28] MEDS: DORZOLAMIDE OPTH 2% 10 ML BOTTLE EACHEYE SCH ×3 (09:38→17:22)
[2019-01-28] MEDS: CARVEDILOL 6.25 MG TABLET GT SCH ×2 (09:38→21:14)
[2019-01-28] MEDS: CHLORHEXIDINE GLUCONATE 15 ML UDC MM SCH ×2 (09:38→21:14)
[2019-01-28] MEDS: Z GUARD REMEDY 4 OZ OINT TP SCH ×2 (09:38→21:14)
[2019-01-28] MEDS: ASCORBIC ACID 500 MG TABLET GT SCH (09:38)
[2019-01-28] MEDS: VIT B CMPLX 3/FA/VIT C/BIOTIN 1 TAB TABLET GT SCH (09:38)
[2019-01-28] MEDS: HYDROGEN PEROXIDE 480 ML BOTTLE TP SCH ×2 (09:38→21:14)
[2019-01-28] MEDS: POTASSIUM CHLORIDE 20 MEQ POWDER PACKET GT SCH (09:38)
[2019-01-28] MEDS: FINASTERIDE (5 MG) 5 MG TABLET GT SCH (09:38)
[2019-01-28] MEDS: VITS A AND D/WHITE PET/LANOLIN 5 GM PACKET TP SCH ×2 (09:38→21:14)
[2019-01-28] MEDS: LINAGLIPTIN 5 MG TABLET GT SCH (09:38)
[2019-01-28] MEDS: TAMSULOSIN 0.4 MG CAP.SR.24H PO SCH (21:14)
[2019-01-28] MEDS: ATORVASTATIN 10 MG TABLET GT SCH (21:14)
[2019-01-28] MEDS: LATANOPROST EYE DROP 0.005% 2.5 ML BOTTLE EACHEYE SCH (21:14)
[2019-01-29] VITALS (7 sets, daily range): BP systolic 108–142; BP diastolic 52–70
[2019-01-29] MEDS: IPRATROPIUM NEB FS 0.5 MG/2.5 ML AMPUL.NEB IH SCH ×4 (01:34→19:57)
--- NOTE | 2019-01-29 02:34 | NUR ---
RT NOTE: RECEIVED PT ON 28% C/A. PLACED PT ON ORDERED NOTED VENT SETTINGS PER MD SMITH ORDER. NO RESPIRATORY DISTRESS NOTED. TRACH CHECKED SECURE AND PATENT. SXD AND LAVAGE PT Q ROUND AND NEEDED. TXS GIVEN ORDERED WITH NO ADVERSE REACTIONS NOTED. SPARE TRACH AND AMBU BAG @ BEDSIDE. ALARMS CHECKED ON AND AUDIBLE. WILL CONTINUE TO MONITOR. Addendum: 01/29/19 at 0234 by NILESH NUNO RT Amended: Links added.
[2019-01-29] MEDS: BLOOD SUGAR DIAGNOSTIC 1 EACH STRIP IN SCH ×3 (05:06→18:01)
[2019-01-29] MEDS: REGLAN GT SCH ×3 (05:06→17:24)
[2019-01-29] MEDS: PROSTAT (PYXIS) 30 ML UDC GT SCH ×3 (05:06→21:27)
[2019-01-29] MEDS: SIMETHICONE SUSP 40 MG/0.6 ML BOTTLE GT SCH ×3 (05:06→17:24)
[2019-01-29] MEDS: FAMOTIDINE (20 MG) 20 MG TABLET GT SCH (05:06)
[2019-01-29] MEDS: VIMPAT 100 MG GT SCH ×2 (05:06→17:24)
[2019-01-29] MEDS: INSULIN REGULAR, HUMAN 100 UNIT/ML 10 ML VIAL SQ SCH ×3 (05:07→18:02)
[2019-01-29] MEDS: VIT B CMPLX 3/FA/VIT C/BIOTIN 1 TAB TABLET GT SCH (11:04)
[2019-01-29] MEDS: ACIDOPHILUS/BULGARICUS 1 EACH TAB.CHEW GT SCH (11:04)
[2019-01-29] MEDS: CARVEDILOL 6.25 MG TABLET GT SCH ×2 (11:04→21:27)
[2019-01-29] MEDS: POTASSIUM CHLORIDE 20 MEQ POWDER PACKET GT SCH (11:04)
[2019-01-29] MEDS: DORZOLAMIDE OPTH 2% 10 ML BOTTLE EACHEYE SCH ×3 (11:04→17:24)
[2019-01-29] MEDS: CHLORHEXIDINE GLUCONATE 15 ML UDC MM SCH ×2 (11:05→21:27)
[2019-01-29] MEDS: ASCORBIC ACID 500 MG TABLET GT SCH (11:05)
[2019-01-29] MEDS: FINASTERIDE (5 MG) 5 MG TABLET GT SCH (11:05)
[2019-01-29] MEDS: LINAGLIPTIN 5 MG TABLET GT SCH (11:05)
[2019-01-29] MEDS: MINERAL OIL/PETROL OINT 396 GM JAR TP SCH ×2 (11:05→21:27)
[2019-01-29] MEDS: Z GUARD REMEDY 4 OZ OINT TP SCH ×2 (11:30→21:27)
[2019-01-29] MEDS: VITS A AND D/WHITE PET/LANOLIN 5 GM PACKET TP SCH ×2 (11:30→21:27)
[2019-01-29] MEDS: HYDROGEN PEROXIDE 480 ML BOTTLE TP SCH ×2 (12:17→21:27)
--- NOTE | 2019-01-29 15:52 | NUR ---
Pt's son concerned that right great toe appears swollen and darker than the left great toe. Dr Dotson saw pt yesterday. He spoke with son today and ordered arterial Doppler for bilateral lower extremities.
[2019-01-29] MEDS: LATANOPROST EYE DROP 0.005% 2.5 ML BOTTLE EACHEYE SCH (21:27)
[2019-01-29] MEDS: ATORVASTATIN 10 MG TABLET GT SCH (21:27)
[2019-01-29] MEDS: TAMSULOSIN 0.4 MG CAP.SR.24H PO SCH (21:27)
[2019-01-30] VITALS (8 sets, daily range): BP systolic 121–136; BP diastolic 58–69
[2019-01-30] MEDS: BLOOD SUGAR DIAGNOSTIC 1 EACH STRIP IN SCH ×4 (00:19→17:41)
[2019-01-30] MEDS: REGLAN GT SCH ×4 (00:19→17:41)
[2019-01-30] MEDS: SIMETHICONE SUSP 40 MG/0.6 ML BOTTLE GT SCH ×4 (00:19→17:41)
[2019-01-30] MEDS: INSULIN REGULAR, HUMAN 100 UNIT/ML 10 ML VIAL SQ SCH ×4 (00:20→17:43)
[2019-01-30] MEDS: IPRATROPIUM NEB FS 0.5 MG/2.5 ML AMPUL.NEB IH SCH ×4 (01:47→20:02)
[2019-01-30] MEDS: PROSTAT (PYXIS) 30 ML UDC GT SCH ×3 (05:45→21:12)
[2019-01-30] MEDS: FAMOTIDINE (20 MG) 20 MG TABLET GT SCH (05:45)
[2019-01-30] MEDS: VIMPAT 100 MG GT SCH ×2 (05:45→17:41)
--- NOTE | 2019-01-30 08:10 | NUR ---
RT PLACED PT ON CA PER MD ORDER. NO SIGNS OF DISTRESS NOTED AT THIS TIME. SpO2 100%, HR 74. WILL CONTINUE TO MONITOR THE PATIENT CLOSELY FOR ANY CHANGE OF CONDITION.
[2019-01-30] MEDS: ACIDOPHILUS/BULGARICUS 1 EACH TAB.CHEW GT SCH (09:00)
[2019-01-30] MEDS: DORZOLAMIDE OPTH 2% 10 ML BOTTLE EACHEYE SCH ×3 (09:00→17:41)
[2019-01-30] MEDS: CHLORHEXIDINE GLUCONATE 15 ML UDC MM SCH ×2 (09:00→21:12)
[2019-01-30] MEDS: POTASSIUM CHLORIDE 20 MEQ POWDER PACKET GT SCH (09:00)
[2019-01-30] MEDS: Z GUARD REMEDY 4 OZ OINT TP SCH ×2 (09:00→21:12)
[2019-01-30] MEDS: HYDROGEN PEROXIDE 480 ML BOTTLE TP SCH ×2 (09:00→21:12)
[2019-01-30] MEDS: MINERAL OIL/PETROL OINT 396 GM JAR TP SCH ×2 (09:00→21:12)
[2019-01-30] MEDS: VIT B CMPLX 3/FA/VIT C/BIOTIN 1 TAB TABLET GT SCH (09:00)
[2019-01-30] MEDS: VITS A AND D/WHITE PET/LANOLIN 5 GM PACKET TP SCH ×2 (09:00→21:12)
[2019-01-30] MEDS: LINAGLIPTIN 5 MG TABLET GT SCH (09:00)
[2019-01-30] MEDS: ASCORBIC ACID 500 MG TABLET GT SCH (09:00)
[2019-01-30] MEDS: FINASTERIDE (5 MG) 5 MG TABLET GT SCH (09:00)
[2019-01-30] MEDS: CARVEDILOL 6.25 MG TABLET GT SCH ×2 (09:00→21:12)
--- NOTE | 2019-01-30 10:30 | NUR ---
Seen and examined by Dr. Dotson, reviewed result of bilateral lower ext. arterial doppler LAUREN. No new order given. Will continue with plan of care.
[2019-01-30] MEDS: TAMSULOSIN 0.4 MG CAP.SR.24H PO SCH (21:12)
[2019-01-30] MEDS: LATANOPROST EYE DROP 0.005% 2.5 ML BOTTLE EACHEYE SCH (21:12)
[2019-01-30] MEDS: ATORVASTATIN 10 MG TABLET GT SCH (21:12)
[2019-01-31] VITALS (7 sets, daily range): BP systolic 110–143; BP diastolic 54–69
[2019-01-31] MEDS: REGLAN GT SCH ×4 (00:27→17:24)
[2019-01-31] MEDS: BLOOD SUGAR DIAGNOSTIC 1 EACH STRIP IN SCH ×4 (00:27→17:24)
[2019-01-31] MEDS: SIMETHICONE SUSP 40 MG/0.6 ML BOTTLE GT SCH ×4 (00:27→17:24)
[2019-01-31] MEDS: INSULIN REGULAR, HUMAN 100 UNIT/ML 10 ML VIAL SQ SCH ×4 (00:28→17:25)
[2019-01-31] MEDS: NEPRO 1,000 ML BOTTLE GT PRN (00:29)
[2019-01-31] MEDS: IPRATROPIUM NEB FS 0.5 MG/2.5 ML AMPUL.NEB IH SCH ×4 (01:32→19:01)
[2019-01-31] MEDS: PROSTAT (PYXIS) 30 ML UDC GT SCH ×3 (05:28→20:47)
[2019-01-31] MEDS: FAMOTIDINE (20 MG) 20 MG TABLET GT SCH (05:28)
[2019-01-31] MEDS: VIMPAT 100 MG GT SCH ×2 (05:28→17:24)
[2019-01-31] MEDS: ASCORBIC ACID 500 MG TABLET GT SCH (09:00)
[2019-01-31] MEDS: LINAGLIPTIN 5 MG TABLET GT SCH (09:00)
[2019-01-31] MEDS: FINASTERIDE (5 MG) 5 MG TABLET GT SCH (09:00)
[2019-01-31] MEDS: DORZOLAMIDE OPTH 2% 10 ML BOTTLE EACHEYE SCH ×3 (09:00→17:24)
[2019-01-31] MEDS: CARVEDILOL 6.25 MG TABLET GT SCH ×2 (09:00→20:47)
[2019-01-31] MEDS: CHLORHEXIDINE GLUCONATE 15 ML UDC MM SCH ×2 (09:00→20:47)
[2019-01-31] MEDS: POTASSIUM CHLORIDE 20 MEQ POWDER PACKET GT SCH (09:00)
[2019-01-31] MEDS: ACIDOPHILUS/BULGARICUS 1 EACH TAB.CHEW GT SCH (09:00)
[2019-01-31] MEDS: VIT B CMPLX 3/FA/VIT C/BIOTIN 1 TAB TABLET GT SCH (09:00)
--- NOTE | 2019-01-31 10:15 | NUR ---
Resident returned from S/P hemodialysis treatment, no s/s of any complications noted. Afebrile. LT upper chest jillian catheter intact, no bleeding noted, covered with dressing, clean and dry. No respiratory distress noted. Kept comfortable in bed.
[2019-01-31] MEDS: Z GUARD REMEDY 4 OZ OINT TP SCH ×2 (10:30→20:48)
[2019-01-31] MEDS: HYDROGEN PEROXIDE 480 ML BOTTLE TP SCH ×2 (10:30→20:48)
[2019-01-31] MEDS: VITS A AND D/WHITE PET/LANOLIN 5 GM PACKET TP SCH ×2 (10:30→20:49)
[2019-01-31] MEDS: MINERAL OIL/PETROL OINT 396 GM JAR TP SCH ×2 (10:30→20:48)
--- NOTE | 2019-01-31 14:30 | NUR ---
Informed Dr Dotson that arterial doppler result is available. He said he already saw the result and he spoke with Dr Lancaster to see the pt.
--- NOTE | 2019-01-31 16:49 | NUR ---
Called pt's son Dr Johns and informed him that Dr Dotson asked vascular surgeon Dr Lancaster to see pt.
--- NOTE | 2019-01-31 19:30 | NUR ---
Seen and examined by Dr. Sarath Barahona vascular surgeon he said there is no indication for arterial revascularization as pt is non ambulatory.He recommend heel protectors,pt is already using it.
[2019-01-31] MEDS: TAMSULOSIN 0.4 MG CAP.SR.24H PO SCH (21:23)
[2019-01-31] MEDS: LATANOPROST EYE DROP 0.005% 2.5 ML BOTTLE EACHEYE SCH (21:23)
[2019-01-31] MEDS: ATORVASTATIN 10 MG TABLET GT SCH (21:23)
[2019-02-01] VITALS (8 sets, daily range): BP systolic 123–153; BP diastolic 58–80
[2019-02-01] MEDS: REGLAN GT SCH ×5 (00:09→23:17)
[2019-02-01] MEDS: BLOOD SUGAR DIAGNOSTIC 1 EACH STRIP IN SCH ×5 (00:09→23:17)
[2019-02-01] MEDS: SIMETHICONE SUSP 40 MG/0.6 ML BOTTLE GT SCH ×5 (00:09→23:17)
[2019-02-01] MEDS: INSULIN REGULAR, HUMAN 100 UNIT/ML 10 ML VIAL SQ SCH ×5 (00:10→23:18)
[2019-02-01] MEDS: IPRATROPIUM NEB FS 0.5 MG/2.5 ML AMPUL.NEB IH SCH ×4 (00:37→19:43)
[2019-02-01] MEDS: FAMOTIDINE (20 MG) 20 MG TABLET GT SCH (05:23)
[2019-02-01] MEDS: VIMPAT 100 MG GT SCH ×2 (05:23→18:06)
[2019-02-01] MEDS: PROSTAT (PYXIS) 30 ML UDC GT SCH ×3 (05:23→20:57)
[2019-02-01] MEDS: DORZOLAMIDE OPTH 2% 10 ML BOTTLE EACHEYE SCH ×3 (08:54→17:00)
[2019-02-01] MEDS: FINASTERIDE (5 MG) 5 MG TABLET GT SCH (08:54)
[2019-02-01] MEDS: ASCORBIC ACID 500 MG TABLET GT SCH (08:54)
[2019-02-01] MEDS: POTASSIUM CHLORIDE 20 MEQ POWDER PACKET GT SCH (08:54)
[2019-02-01] MEDS: ACIDOPHILUS/BULGARICUS 1 EACH TAB.CHEW GT SCH (08:54)
[2019-02-01] MEDS: VIT B CMPLX 3/FA/VIT C/BIOTIN 1 TAB TABLET GT SCH (08:54)
[2019-02-01] MEDS: CARVEDILOL 6.25 MG TABLET GT SCH ×2 (08:54→20:57)
[2019-02-01] MEDS: LINAGLIPTIN 5 MG TABLET GT SCH (08:54)
[2019-02-01] MEDS: MINERAL OIL/PETROL OINT 396 GM JAR TP SCH ×2 (09:00→20:57)
[2019-02-01] MEDS: HYDROGEN PEROXIDE 480 ML BOTTLE TP SCH ×2 (09:00→20:57)
[2019-02-01] MEDS: CHLORHEXIDINE GLUCONATE 15 ML UDC MM SCH ×2 (09:00→20:57)
[2019-02-01] MEDS: CLOTRIMAZOLE 1% 15 GM TUBE TP SCH ×2 (09:00→20:57)
[2019-02-01] MEDS: ZINC OXIDE 30 GM TUBE TP SCH ×2 (09:00→20:57)
[2019-02-01] MEDS: Z GUARD REMEDY 4 OZ OINT TP SCH ×2 (09:00→20:57)
[2019-02-01] MEDS: VITS A AND D/WHITE PET/LANOLIN 5 GM PACKET TP SCH ×2 (09:00→20:57)
--- NOTE | 2019-02-01 09:23 | NUR ---
RT PLACED PT ON CA 28% 5L TONY LOPEZ TO MONITOR Addendum: 02/01/19 at 0923 by RAYRAY KRUEGER RT Amended: Links added.
--- NOTE | 2019-02-01 10:05 | NUR ---
Received a call from patient's son Nat inquiring about vascular surgeon's assessment, informed him that per Dr. Barahona's progress notes no indication for revascularization as patient is non ambulatory and on vegetative state, consider heel protector. Heel protector ordered from [employer].
[2019-02-01] MEDS: ATORVASTATIN 10 MG TABLET GT SCH (21:22)
[2019-02-01] MEDS: TAMSULOSIN 0.4 MG CAP.SR.24H PO SCH (21:22)
[2019-02-01] MEDS: LATANOPROST EYE DROP 0.005% 2.5 ML BOTTLE EACHEYE SCH (21:22)
[2019-02-02] VITALS (8 sets, daily range): BP systolic 123–137; BP diastolic 54–84
[2019-02-02] MEDS: IPRATROPIUM NEB FS 0.5 MG/2.5 ML AMPUL.NEB IH SCH ×4 (00:51→19:56)
[2019-02-02] MEDS: SIMETHICONE SUSP 40 MG/0.6 ML BOTTLE GT SCH ×4 (05:12→23:20)
[2019-02-02] MEDS: VIMPAT 100 MG GT SCH ×2 (05:12→18:24)
[2019-02-02] MEDS: BLOOD SUGAR DIAGNOSTIC 1 EACH STRIP IN SCH ×4 (05:12→23:20)
[2019-02-02] MEDS: FAMOTIDINE (20 MG) 20 MG TABLET GT SCH (05:12)
[2019-02-02] MEDS: REGLAN GT SCH ×4 (05:12→23:20)
[2019-02-02] MEDS: PROSTAT (PYXIS) 30 ML UDC GT SCH ×3 (05:12→20:22)
[2019-02-02] MEDS: INSULIN REGULAR, HUMAN 100 UNIT/ML 10 ML VIAL SQ SCH ×4 (05:13→23:21)
[2019-02-02] MEDS: NEPRO 1,000 ML BOTTLE GT PRN (05:13)
--- NOTE | 2019-02-02 05:55 | NUR ---
Patient picked up by [facility] crew for dialysis with stable vital signs ; on Cool Aerosol- no s/sx of respiratory distress.
[2019-02-02] MEDS: CARVEDILOL 6.25 MG TABLET GT SCH ×2 (10:31→20:22)
[2019-02-02] MEDS: DORZOLAMIDE OPTH 2% 10 ML BOTTLE EACHEYE SCH ×3 (10:31→17:00)
[2019-02-02] MEDS: VIT B CMPLX 3/FA/VIT C/BIOTIN 1 TAB TABLET GT SCH (10:32)
[2019-02-02] MEDS: POTASSIUM CHLORIDE 20 MEQ POWDER PACKET GT SCH (10:32)
[2019-02-02] MEDS: ZINC OXIDE 30 GM TUBE TP SCH ×2 (10:32→20:23)
[2019-02-02] MEDS: FINASTERIDE (5 MG) 5 MG TABLET GT SCH (10:32)
[2019-02-02] MEDS: ACIDOPHILUS/BULGARICUS 1 EACH TAB.CHEW GT SCH (10:32)
[2019-02-02] MEDS: MINERAL OIL/PETROL OINT 396 GM JAR TP SCH ×2 (10:32→20:22)
[2019-02-02] MEDS: Z GUARD REMEDY 4 OZ OINT TP SCH ×2 (10:32→20:23)
[2019-02-02] MEDS: LINAGLIPTIN 5 MG TABLET GT SCH (10:32)
[2019-02-02] MEDS: ASCORBIC ACID 500 MG TABLET GT SCH (10:32)
[2019-02-02] MEDS: HYDROGEN PEROXIDE 480 ML BOTTLE TP SCH ×2 (10:32→20:22)
[2019-02-02] MEDS: CHLORHEXIDINE GLUCONATE 15 ML UDC MM SCH ×2 (10:32→20:22)
[2019-02-02] MEDS: VITS A AND D/WHITE PET/LANOLIN 5 GM PACKET TP SCH ×2 (10:32→20:23)
[2019-02-02] MEDS: CLOTRIMAZOLE 1% 15 GM TUBE TP SCH ×2 (10:32→20:23)
[2019-02-02] MEDS: LATANOPROST EYE DROP 0.005% 2.5 ML BOTTLE EACHEYE SCH (21:09)
[2019-02-02] MEDS: ATORVASTATIN 10 MG TABLET GT SCH (21:09)
[2019-02-02] MEDS: TAMSULOSIN 0.4 MG CAP.SR.24H PO SCH (21:10)
[2019-02-03] VITALS (7 sets, daily range): BP systolic 116–139; BP diastolic 53–71
[2019-02-03] MEDS: IPRATROPIUM NEB FS 0.5 MG/2.5 ML AMPUL.NEB IH SCH ×4 (01:25→19:37)
--- NOTE | 2019-02-03 04:03 | NUR ---
RT NOTE: RECEIVED PT ON 28% C/A. PLACED PT ON ORDERED NOTED VENT SETTINGS PER MD SMITH ORDER. NO RESPIRATORY DISTRESS NOTED. TRACH CHECKED SECURE AND PATENT. SXD AND LAVAGE PT Q ROUND AND NEEDED. TXS GIVEN ORDERED WITH NO ADVERSE REACTIONS NOTED. SPARE TRACH AND AMBU BAG @ BEDSIDE. ALARMS CHECKED ON AND AUDIBLE. WILL CONTINUE TO MONITOR. Addendum: 02/03/19 at 0403 by NILESH NUNO RT Amended: Links added.
[2019-02-03] MEDS: SIMETHICONE SUSP 40 MG/0.6 ML BOTTLE GT SCH ×3 (05:15→17:38)
[2019-02-03] MEDS: BLOOD SUGAR DIAGNOSTIC 1 EACH STRIP IN SCH ×3 (05:15→17:39)
[2019-02-03] MEDS: PROSTAT (PYXIS) 30 ML UDC GT SCH ×3 (05:15→21:16)
[2019-02-03] MEDS: VIMPAT 100 MG GT SCH ×2 (05:15→17:38)
[2019-02-03] MEDS: INSULIN REGULAR, HUMAN 100 UNIT/ML 10 ML VIAL SQ SCH ×3 (05:15→17:40)
[2019-02-03] MEDS: REGLAN GT SCH ×3 (05:15→17:39)
[2019-02-03] MEDS: FAMOTIDINE (20 MG) 20 MG TABLET GT SCH (05:15)
--- NOTE | 2019-02-03 08:17 | NUR ---
RT PLACED PT ON CA 28% 5L TONY LOPEZ TO MONITOR Addendum: 02/03/19 at 0818 by RAYRAY KRUEGER RT Amended: Links added.
[2019-02-03] MEDS: DORZOLAMIDE OPTH 2% 10 ML BOTTLE EACHEYE SCH ×3 (08:55→17:39)
[2019-02-03] MEDS: POTASSIUM CHLORIDE 20 MEQ POWDER PACKET GT SCH (08:56)
[2019-02-03] MEDS: ACIDOPHILUS/BULGARICUS 1 EACH TAB.CHEW GT SCH (08:56)
[2019-02-03] MEDS: CARVEDILOL 6.25 MG TABLET GT SCH ×2 (08:56→21:16)
[2019-02-03] MEDS: FINASTERIDE (5 MG) 5 MG TABLET GT SCH (08:57)
[2019-02-03] MEDS: LINAGLIPTIN 5 MG TABLET GT SCH (08:57)
[2019-02-03] MEDS: ASCORBIC ACID 500 MG TABLET GT SCH (08:57)
[2019-02-03] MEDS: VIT B CMPLX 3/FA/VIT C/BIOTIN 1 TAB TABLET GT SCH (08:58)
[2019-02-03] MEDS: VITS A AND D/WHITE PET/LANOLIN 5 GM PACKET TP SCH ×2 (09:00→21:17)
[2019-02-03] MEDS: ZINC OXIDE 30 GM TUBE TP SCH ×2 (09:00→21:18)
[2019-02-03] MEDS: HYDROGEN PEROXIDE 480 ML BOTTLE TP SCH ×2 (09:00→21:16)
[2019-02-03] MEDS: Z GUARD REMEDY 4 OZ OINT TP SCH ×2 (09:00→21:17)
[2019-02-03] MEDS: CLOTRIMAZOLE 1% 15 GM TUBE TP SCH ×2 (09:00→21:17)
[2019-02-03] MEDS: CHLORHEXIDINE GLUCONATE 15 ML UDC MM SCH ×2 (09:08→21:16)
[2019-02-03] MEDS: MINERAL OIL/PETROL OINT 396 GM JAR TP SCH ×2 (09:09→21:16)
[2019-02-03] MEDS: NEPRO 1,000 ML BOTTLE GT PRN (10:06)
[2019-02-03] MEDS: ATORVASTATIN 10 MG TABLET GT SCH (21:18)
[2019-02-03] MEDS: TAMSULOSIN 0.4 MG CAP.SR.24H PO SCH (21:18)
[2019-02-03] MEDS: LATANOPROST EYE DROP 0.005% 2.5 ML BOTTLE EACHEYE SCH (21:18)
[2019-02-04] VITALS (7 sets, daily range): BP systolic 123–154; BP diastolic 50–90
[2019-02-04] MEDS: REGLAN GT SCH ×5 (00:11→23:19)
[2019-02-04] MEDS: SIMETHICONE SUSP 40 MG/0.6 ML BOTTLE GT SCH ×5 (00:11→23:19)
[2019-02-04] MEDS: BLOOD SUGAR DIAGNOSTIC 1 EACH STRIP IN SCH ×5 (00:11→23:19)
[2019-02-04] MEDS: INSULIN REGULAR, HUMAN 100 UNIT/ML 10 ML VIAL SQ SCH ×5 (00:12→23:20)
[2019-02-04] MEDS: IPRATROPIUM NEB FS 0.5 MG/2.5 ML AMPUL.NEB IH SCH ×4 (01:36→19:28)
[2019-02-04] MEDS: PROSTAT (PYXIS) 30 ML UDC GT SCH ×3 (05:55→21:02)
[2019-02-04] MEDS: FAMOTIDINE (20 MG) 20 MG TABLET GT SCH (05:55)
[2019-02-04] MEDS: VIMPAT 100 MG GT SCH ×2 (05:55→17:03)
[2019-02-04] MEDS: ACIDOPHILUS/BULGARICUS 1 EACH TAB.CHEW GT SCH (08:47)
[2019-02-04] MEDS: LINAGLIPTIN 5 MG TABLET GT SCH (08:47)
[2019-02-04] MEDS: POTASSIUM CHLORIDE 20 MEQ POWDER PACKET GT SCH (08:47)
[2019-02-04] MEDS: FINASTERIDE (5 MG) 5 MG TABLET GT SCH (08:47)
[2019-02-04] MEDS: VIT B CMPLX 3/FA/VIT C/BIOTIN 1 TAB TABLET GT SCH (08:47)
[2019-02-04] MEDS: DORZOLAMIDE OPTH 2% 10 ML BOTTLE EACHEYE SCH ×3 (08:47→17:03)
[2019-02-04] MEDS: CARVEDILOL 6.25 MG TABLET GT SCH ×2 (08:47→21:02)
[2019-02-04] MEDS: CHLORHEXIDINE GLUCONATE 15 ML UDC MM SCH ×2 (08:48→21:02)
[2019-02-04] MEDS: ASCORBIC ACID 500 MG TABLET GT SCH (08:48)
[2019-02-04] MEDS: VITS A AND D/WHITE PET/LANOLIN 5 GM PACKET TP SCH ×2 (09:00→21:03)
[2019-02-04] MEDS: MINERAL OIL/PETROL OINT 396 GM JAR TP SCH ×2 (09:00→21:02)
[2019-02-04] MEDS: HYDROGEN PEROXIDE 480 ML BOTTLE TP SCH ×2 (09:00→21:02)
[2019-02-04] MEDS: CLOTRIMAZOLE 1% 15 GM TUBE TP SCH ×2 (09:00→21:02)
[2019-02-04] MEDS: Z GUARD REMEDY 4 OZ OINT TP SCH ×2 (09:00→21:03)
[2019-02-04] MEDS: ZINC OXIDE 30 GM TUBE TP SCH ×2 (09:00→21:03)
[2019-02-04] MEDS: NEPRO 1,000 ML BOTTLE GT PRN (12:31)
--- NOTE | 2019-02-04 15:45 | NUR ---
Pt noted with open skin on the left gluteal crease and right lateral thigh. Pt's skin very dry, applied lotion. Pt was up in the gerichair for 2 1/2 hours. Seat cushion was placed on the gerichair while pt was sitting up. Received order to apply triple antibiotic ointment and Mepilex on both sites of open skin. Also received order for wound consult. Notified Dr Johns.
[2019-02-04] MEDS ORDERED: NEOMY SULF/BACITRAC ZN/POLY 15 GM TUBE TP PRN ×2 (17:30)
[2019-02-04] MEDS: NEOMY SULF/BACITRAC ZN/POLY 15 GM TUBE TP SCH ×2 (21:02→21:03)
[2019-02-04] MEDS: ATORVASTATIN 10 MG TABLET GT SCH (21:03)
[2019-02-04] MEDS: TAMSULOSIN 0.4 MG CAP.SR.24H PO SCH (21:03)
[2019-02-04] MEDS: LATANOPROST EYE DROP 0.005% 2.5 ML BOTTLE EACHEYE SCH (21:03)
[2019-02-05] VITALS (7 sets, daily range): BP systolic 108–146; BP diastolic 57–80
[2019-02-05] MEDS: IPRATROPIUM NEB FS 0.5 MG/2.5 ML AMPUL.NEB IH SCH ×4 (00:54→19:53)
[2019-02-05] MEDS: FAMOTIDINE (20 MG) 20 MG TABLET GT SCH (05:04)
[2019-02-05] MEDS: SIMETHICONE SUSP 40 MG/0.6 ML BOTTLE GT SCH ×4 (05:04→23:59)
[2019-02-05] MEDS: REGLAN GT SCH ×4 (05:04→23:58)
[2019-02-05] MEDS: BLOOD SUGAR DIAGNOSTIC 1 EACH STRIP IN SCH ×3 (05:04→17:36)
[2019-02-05] MEDS: VIMPAT 100 MG GT SCH ×2 (05:04→17:36)
[2019-02-05] MEDS: PROSTAT (PYXIS) 30 ML UDC GT SCH ×3 (05:04→20:26)
[2019-02-05] MEDS: INSULIN REGULAR, HUMAN 100 UNIT/ML 10 ML VIAL SQ SCH ×3 (05:05→17:37)
--- NOTE | 2019-02-05 06:28 | NUR ---
WOUND CARE CONSULT WOUND CARE RECEIVED CONSULT FOR OPEN SKIN ONLEFT GLUTEAL CREASE AND RIGHT LATERL THIGH. WOUND CARE WILL DEFER CONSULT AND TREATMENT PLANS TO PLASTIC SURGICAL TEAM WHO ARE CURRENTLY FOLLOWING THIS PATIENT. WILL SEE PRN.
[2019-02-05] MEDS: ASCORBIC ACID 500 MG TABLET GT SCH (11:00)
[2019-02-05] MEDS: POTASSIUM CHLORIDE 20 MEQ POWDER PACKET GT SCH (11:00)
[2019-02-05] MEDS: FINASTERIDE (5 MG) 5 MG TABLET GT SCH (11:00)
[2019-02-05] MEDS: CARVEDILOL 6.25 MG TABLET GT SCH ×2 (11:00→20:26)
[2019-02-05] MEDS: DORZOLAMIDE OPTH 2% 10 ML BOTTLE EACHEYE SCH ×3 (11:00→17:36)
[2019-02-05] MEDS: CHLORHEXIDINE GLUCONATE 15 ML UDC MM SCH ×2 (11:00→20:26)
[2019-02-05] MEDS: LINAGLIPTIN 5 MG TABLET GT SCH (11:00)
[2019-02-05] MEDS: ACIDOPHILUS/BULGARICUS 1 EACH TAB.CHEW GT SCH (11:00)
[2019-02-05] MEDS: NEOMY SULF/BACITRAC ZN/POLY 15 GM TUBE TP SCH ×4 (11:30→20:27)
[2019-02-05] MEDS: Z GUARD REMEDY 4 OZ OINT TP SCH ×2 (11:30→20:27)
[2019-02-05] MEDS: VITS A AND D/WHITE PET/LANOLIN 5 GM PACKET TP SCH ×2 (11:30→20:27)
[2019-02-05] MEDS: ZINC OXIDE 30 GM TUBE TP SCH ×2 (11:30→20:27)
[2019-02-05] MEDS: MINERAL OIL/PETROL OINT 396 GM JAR TP SCH ×2 (11:30→20:26)
[2019-02-05] MEDS: CLOTRIMAZOLE 1% 15 GM TUBE TP SCH ×2 (11:30→20:26)
[2019-02-05] MEDS: VIT B CMPLX 3/FA/VIT C/BIOTIN 1 TAB TABLET GT SCH (12:43)
[2019-02-05] MEDS: HYDROGEN PEROXIDE 480 ML BOTTLE TP SCH ×2 (12:43→20:26)
[2019-02-05] MEDS: LATANOPROST EYE DROP 0.005% 2.5 ML BOTTLE EACHEYE SCH (21:32)
[2019-02-05] MEDS: ATORVASTATIN 10 MG TABLET GT SCH (21:34)
[2019-02-05] MEDS: TAMSULOSIN 0.4 MG CAP.SR.24H PO SCH (21:34)
[2019-02-06] VITALS (7 sets, daily range): BP systolic 119–128; BP diastolic 67–76
[2019-02-06] MEDS: INSULIN REGULAR, HUMAN 100 UNIT/ML 10 ML VIAL SQ SCH ×5 (00:03→23:08)
[2019-02-06] MEDS: IPRATROPIUM NEB FS 0.5 MG/2.5 ML AMPUL.NEB IH SCH ×4 (01:27→20:21)
[2019-02-06] MEDS: SIMETHICONE SUSP 40 MG/0.6 ML BOTTLE GT SCH ×4 (05:12→23:06)
[2019-02-06] MEDS: REGLAN GT SCH ×4 (05:12→23:06)
[2019-02-06] MEDS: FAMOTIDINE (20 MG) 20 MG TABLET GT SCH (05:12)
[2019-02-06] MEDS: PROSTAT (PYXIS) 30 ML UDC GT SCH ×3 (05:12→21:26)
[2019-02-06] MEDS: VIMPAT 100 MG GT SCH ×2 (05:12→17:09)
[2019-02-06] MEDS: BLOOD SUGAR DIAGNOSTIC 1 EACH STRIP IN SCH ×5 (05:18→23:06)
[2019-02-06] MEDS: NEPRO 1,000 ML BOTTLE GT PRN (07:01)
--- NOTE | 2019-02-06 08:06 | NUR ---
pt. received on vent support via trach and placed into cool mist as order for daily weaning. Addendum: 02/06/19 at 0806 by BECKIE CAMPUZANO RT Amended: Links added.
[2019-02-06] MEDS: POTASSIUM CHLORIDE 20 MEQ POWDER PACKET GT SCH (09:47)
[2019-02-06] MEDS: ACIDOPHILUS/BULGARICUS 1 EACH TAB.CHEW GT SCH (09:47)
[2019-02-06] MEDS: FINASTERIDE (5 MG) 5 MG TABLET GT SCH (09:47)
[2019-02-06] MEDS: CHLORHEXIDINE GLUCONATE 15 ML UDC MM SCH ×2 (09:47→21:26)
[2019-02-06] MEDS: LINAGLIPTIN 5 MG TABLET GT SCH (09:47)
[2019-02-06] MEDS: CARVEDILOL 6.25 MG TABLET GT SCH ×2 (09:47→21:26)
[2019-02-06] MEDS: DORZOLAMIDE OPTH 2% 10 ML BOTTLE EACHEYE SCH ×3 (09:47→17:09)
[2019-02-06] MEDS: ASCORBIC ACID 500 MG TABLET GT SCH (09:47)
[2019-02-06] MEDS: VIT B CMPLX 3/FA/VIT C/BIOTIN 1 TAB TABLET GT SCH (09:47)
[2019-02-06] MEDS: NEOMY SULF/BACITRAC ZN/POLY 15 GM TUBE TP SCH ×4 (09:48→21:26)
[2019-02-06] MEDS: MINERAL OIL/PETROL OINT 396 GM JAR TP SCH ×2 (09:48→21:26)
[2019-02-06] MEDS: ZINC OXIDE 30 GM TUBE TP SCH ×2 (09:48→21:27)
[2019-02-06] MEDS: Z GUARD REMEDY 4 OZ OINT TP SCH ×2 (09:48→21:26)
[2019-02-06] MEDS: VITS A AND D/WHITE PET/LANOLIN 5 GM PACKET TP SCH ×2 (09:48→21:27)
[2019-02-06] MEDS: HYDROGEN PEROXIDE 480 ML BOTTLE TP SCH ×2 (09:48→21:26)
[2019-02-06] MEDS: CLOTRIMAZOLE 1% 15 GM TUBE TP SCH ×2 (09:48→21:26)
--- NOTE | 2019-02-06 20:31 | NUR ---
PT RCVD TRACH ON COOL AEROSOL 28% 5L. BREATHING TX GIVEN AND NO ADVERSE REACTION NOTED. SUCTIONED YELLOW/WHITE THICK SECRETIONS. NO RESPIRATORY DISTRESS NOTED AT THIS TIME. AMBU BAG AT BEDSIDE. WILL CONTINUE TO MONITOR.
[2019-02-06] MEDS: TAMSULOSIN 0.4 MG CAP.SR.24H PO SCH (21:27)
[2019-02-06] MEDS: ATORVASTATIN 10 MG TABLET GT SCH (21:27)
[2019-02-06] MEDS: LATANOPROST EYE DROP 0.005% 2.5 ML BOTTLE EACHEYE SCH (21:27)
[2019-02-07] VITALS (7 sets, daily range): BP systolic 123–139; BP diastolic 55–86
--- NOTE | 2019-02-07 00:49 | NUR ---
PT PLACED ON VENT PER MD'S ORDER. VENT PLUGGED INTO RED OUTLET , ALARMS ON AND AUDIBLE. AMBU BAG AT BEDSIDE. NO RESPIRATORY DISTRESS NOTED AT THIS TIME. WILL CONTINUE TO MONITOR THE PT.
[2019-02-07] MEDS: IPRATROPIUM NEB FS 0.5 MG/2.5 ML AMPUL.NEB IH SCH ×4 (01:17→19:59)
[2019-02-07] MEDS: FAMOTIDINE (20 MG) 20 MG TABLET GT SCH (05:03)
[2019-02-07] MEDS: SIMETHICONE SUSP 40 MG/0.6 ML BOTTLE GT SCH ×4 (05:03→23:55)
[2019-02-07] MEDS: PROSTAT (PYXIS) 30 ML UDC GT SCH ×3 (05:03→21:13)
[2019-02-07] MEDS: REGLAN GT SCH ×4 (05:03→23:55)
[2019-02-07] MEDS: VIMPAT 100 MG GT SCH ×2 (05:03→17:31)
[2019-02-07] MEDS: INSULIN REGULAR, HUMAN 100 UNIT/ML 10 ML VIAL SQ SCH ×4 (05:15→23:56)
[2019-02-07] MEDS: BLOOD SUGAR DIAGNOSTIC 1 EACH STRIP IN SCH ×4 (05:15→23:55)
[2019-02-07] MEDS: HYDROGEN PEROXIDE 480 ML BOTTLE TP SCH ×2 (09:00→21:14)
[2019-02-07] MEDS: Z GUARD REMEDY 4 OZ OINT TP SCH ×2 (09:00→21:14)
[2019-02-07] MEDS: ACIDOPHILUS/BULGARICUS 1 EACH TAB.CHEW GT SCH (09:00)
[2019-02-07] MEDS: LINAGLIPTIN 5 MG TABLET GT SCH (09:00)
[2019-02-07] MEDS: DORZOLAMIDE OPTH 2% 10 ML BOTTLE EACHEYE SCH ×3 (09:00→17:31)
[2019-02-07] MEDS: POTASSIUM CHLORIDE 20 MEQ POWDER PACKET GT SCH (09:00)
[2019-02-07] MEDS: CARVEDILOL 6.25 MG TABLET GT SCH ×2 (09:00→21:13)
[2019-02-07] MEDS: VITS A AND D/WHITE PET/LANOLIN 5 GM PACKET TP SCH ×2 (09:00→21:14)
[2019-02-07] MEDS: FINASTERIDE (5 MG) 5 MG TABLET GT SCH (09:00)
[2019-02-07] MEDS: NEOMY SULF/BACITRAC ZN/POLY 15 GM TUBE TP SCH ×4 (09:00→21:14)
[2019-02-07] MEDS: CLOTRIMAZOLE 1% 15 GM TUBE TP SCH ×2 (09:00→21:14)
[2019-02-07] MEDS: MINERAL OIL/PETROL OINT 396 GM JAR TP SCH ×2 (09:00→21:13)
[2019-02-07] MEDS: CHLORHEXIDINE GLUCONATE 15 ML UDC MM SCH ×2 (09:00→21:13)
[2019-02-07] MEDS: ZINC OXIDE 30 GM TUBE TP SCH ×2 (09:00→21:14)
[2019-02-07] MEDS: ASCORBIC ACID 500 MG TABLET GT SCH (09:00)
--- NOTE | 2019-02-07 10:00 | NUR ---
Referred recommendation of [facility] it director to Dr Garduno to NC multivitamins, avoid Vit D and Calcium due to hypercalcemia. Received order to NC Nephrovite.
--- NOTE | 2019-02-07 11:30 | NUR ---
Pt came back from hemodialysis and was being cleaned when open skin on sacral area was noted. There was no report from wrapper sorter about it. Cushion seat was sent with pt when he went to hemodialysis this morning. Received order to apply triple antibiotic ointment and cover with Mepilex. Also received order for wound consult. Notified Dr Johns.
--- NOTE | 2019-02-07 13:01 | NUR ---
Seen by Dr Randy Martell's PA Yolande for sacral open skin. Informed her that antibiotic ointment and Mepilex were applied. She changed the order to Hydrogel and Mepilex.
[2019-02-07] MEDS: ACETAMINOPHEN 650 MG/20.3 ML UDC GT PRN (16:01)
--- NOTE | 2019-02-07 18:15 | NUR ---
Pt noted with pus coming out from left big toe. It appears that pt has an ingrown toenail. Notified Dr Dotson. He said he will see pt tomorrow morning. Informed pt's son at bedside.
[2019-02-07] MEDS: HYDROGEL DRESSING 90 GM TUBE TP SCH (21:13)
[2019-02-07] MEDS: ATORVASTATIN 10 MG TABLET GT SCH (21:14)
[2019-02-07] MEDS: LATANOPROST EYE DROP 0.005% 2.5 ML BOTTLE EACHEYE SCH (21:14)
[2019-02-07] MEDS: TAMSULOSIN 0.4 MG CAP.SR.24H PO SCH (21:14)
[2019-02-08] VITALS (8 sets, daily range): BP systolic 119–148; BP diastolic 70–88
--- NOTE | 2019-02-08 00:05 | NUR ---
PT REC'D ON COOL AEROSOL. PT PLACED ON MECH VENT ON CPAP SETTINGS CHARTED PER MD ORDERS. NO RESP DISTRESS OR SOB NOTED. TRACH IS PATENT AND SECURED. SX'D FOR MOD AMT OF PALE YELLOW SECRETIONS. VENT PLUGGED INTO RED OUTLET. ALARMS ARE SET AND AUDIBLE. AMBU BAG BEDSIDE. WILL CONTINUE TO MONITOR. Addendum: 02/08/19 at 0021 by PAUL ALMARAZ RT Amended: Links added.
[2019-02-08] MEDS: IPRATROPIUM NEB FS 0.5 MG/2.5 ML AMPUL.NEB IH SCH ×4 (01:31→20:08)
[2019-02-08] MEDS: PROSTAT (PYXIS) 30 ML UDC GT SCH ×3 (05:30→20:30)
[2019-02-08] MEDS: FAMOTIDINE (20 MG) 20 MG TABLET GT SCH (05:30)
[2019-02-08] MEDS: SIMETHICONE SUSP 40 MG/0.6 ML BOTTLE GT SCH ×4 (05:30→23:34)
[2019-02-08] MEDS: REGLAN GT SCH ×4 (05:30→23:34)
[2019-02-08] MEDS: VIMPAT 100 MG GT SCH ×2 (05:30→17:11)
[2019-02-08] MEDS: BLOOD SUGAR DIAGNOSTIC 1 EACH STRIP IN SCH ×4 (05:30→23:34)
[2019-02-08] MEDS: INSULIN REGULAR, HUMAN 100 UNIT/ML 10 ML VIAL SQ SCH ×4 (05:31→23:35)
--- NOTE | 2019-02-08 07:37 | NUR ---
pt placed on cool aerosol per md orders. will continue to monitor Addendum: 02/08/19 at 0737 by PAUL ALMARAZ RT Amended: Links added.
--- NOTE | 2019-02-08 09:00 | NUR ---
Seen by Dr. Dotson today. Cut left lateral great toe nail border, tolerated well with minimal bleeding. Will continue to monitor.
[2019-02-08] MEDS: DORZOLAMIDE OPTH 2% 10 ML BOTTLE EACHEYE SCH ×3 (09:16→17:11)
[2019-02-08] MEDS: MINERAL OIL/PETROL OINT 396 GM JAR TP SCH ×2 (09:17→20:30)
[2019-02-08] MEDS: POTASSIUM CHLORIDE 20 MEQ POWDER PACKET GT SCH (09:17)
[2019-02-08] MEDS: FINASTERIDE (5 MG) 5 MG TABLET GT SCH (09:17)
[2019-02-08] MEDS: CARVEDILOL 6.25 MG TABLET GT SCH ×2 (09:17→20:30)
[2019-02-08] MEDS: ASCORBIC ACID 500 MG TABLET GT SCH (09:17)
[2019-02-08] MEDS: CLOTRIMAZOLE 1% 15 GM TUBE TP SCH ×2 (09:17→20:30)
[2019-02-08] MEDS: ACIDOPHILUS/BULGARICUS 1 EACH TAB.CHEW GT SCH (09:17)
[2019-02-08] MEDS: HYDROGEL DRESSING 90 GM TUBE TP SCH ×2 (09:17→20:30)
[2019-02-08] MEDS: HYDROGEN PEROXIDE 480 ML BOTTLE TP SCH ×2 (09:17→20:30)
[2019-02-08] MEDS: LINAGLIPTIN 5 MG TABLET GT SCH (09:17)
[2019-02-08] MEDS: CHLORHEXIDINE GLUCONATE 15 ML UDC MM SCH ×2 (09:17→20:30)
[2019-02-08] MEDS: ZINC OXIDE 30 GM TUBE TP SCH ×2 (09:18→20:31)
[2019-02-08] MEDS: VITS A AND D/WHITE PET/LANOLIN 5 GM PACKET TP SCH ×2 (09:18→20:31)
[2019-02-08] MEDS: NEOMY SULF/BACITRAC ZN/POLY 15 GM TUBE TP SCH ×4 (09:18→20:30)
[2019-02-08] MEDS: Z GUARD REMEDY 4 OZ OINT TP SCH ×2 (09:18→20:31)
[2019-02-08] MEDS ORDERED: BACI/NEOM/POLY B OINT PKT 1 UDPKT PACKET TP SCH (09:35)
--- NOTE | 2019-02-08 10:25 | NUR ---
Sacral wound seen and examined by BRANDO Walden. No new order given.
[2019-02-08] MEDS: BACI/NEOM/POLY B OINT PKT 1 UDPKT PACKET TP SCH ×2 (10:29→20:31)
--- NOTE | 2019-02-08 10:30 | NUR ---
WOUND CARE CONSULT WOUND CARE RECEIVED CONSULT FOR SACRAL OPEN SKIN. WOUND CARE WILL DEFER CONSULT AND TREATMENT PLANS TO PLASTIC SURGICAL TEAM WHO ARE CURRENTLY FOLLOWING THIS PATIENT. WILL SEE PRN.
--- NOTE | 2019-02-08 10:30 | NUR ---
Resident sacral wound was seen and examined by Carrie (wound care nurse), no new order given.
--- NOTE | 2019-02-08 15:00 | NUR ---
Seen and examined by Dr. Garduno, no new order given.
--- NOTE | 2019-02-08 15:45 | NUR ---
Seen and examined by BRANDO Collier, no new order given.
[2019-02-08] MEDS: TAMSULOSIN 0.4 MG CAP.SR.24H PO SCH (21:04)
[2019-02-08] MEDS: LATANOPROST EYE DROP 0.005% 2.5 ML BOTTLE EACHEYE SCH (21:04)
[2019-02-08] MEDS: ATORVASTATIN 10 MG TABLET GT SCH (21:04)
[2019-02-09] VITALS (7 sets, daily range): BP systolic 104–138; BP diastolic 51–77
[2019-02-09] MEDS: IPRATROPIUM NEB FS 0.5 MG/2.5 ML AMPUL.NEB IH SCH ×4 (02:10→19:49)
--- NOTE | 2019-02-09 05:20 | NUR ---
Patient picked up by [facility] crew for dialysis with stable vital signs ; on Cool Aerosol- no s/sx of respiratory distress.
[2019-02-09] MEDS: LACOSAMIDE ORAL SOLN 50 MG/5 ML UDC GT SCH ×2 (05:23→17:58)
[2019-02-09] MEDS: VIMPAT 100 MG GT SCH (05:23)
[2019-02-09] MEDS: REGLAN GT SCH ×4 (05:23→23:44)
[2019-02-09] MEDS: FAMOTIDINE (20 MG) 20 MG TABLET GT SCH (05:23)
[2019-02-09] MEDS: SIMETHICONE SUSP 40 MG/0.6 ML BOTTLE GT SCH ×4 (05:23→23:44)
[2019-02-09] MEDS: PROSTAT (PYXIS) 30 ML UDC GT SCH ×3 (05:23→20:17)
[2019-02-09] MEDS: BLOOD SUGAR DIAGNOSTIC 1 EACH STRIP IN SCH ×4 (05:24→23:44)
[2019-02-09] MEDS: INSULIN REGULAR, HUMAN 100 UNIT/ML 10 ML VIAL SQ SCH ×4 (05:25→23:45)
[2019-02-09] MEDS: CHLORHEXIDINE GLUCONATE 15 ML UDC MM SCH ×2 (09:00→20:17)
[2019-02-09] MEDS: ACIDOPHILUS/BULGARICUS 1 EACH TAB.CHEW GT SCH (09:00)
[2019-02-09] MEDS: POTASSIUM CHLORIDE 20 MEQ POWDER PACKET GT SCH (09:00)
[2019-02-09] MEDS: DORZOLAMIDE OPTH 2% 10 ML BOTTLE EACHEYE SCH ×3 (09:00→17:58)
[2019-02-09] MEDS: FINASTERIDE (5 MG) 5 MG TABLET GT SCH (09:00)
[2019-02-09] MEDS: LINAGLIPTIN 5 MG TABLET GT SCH (09:00)
[2019-02-09] MEDS: CARVEDILOL 6.25 MG TABLET GT SCH ×2 (09:00→20:17)
[2019-02-09] MEDS: ASCORBIC ACID 500 MG TABLET GT SCH (09:00)
[2019-02-09] MEDS: MINERAL OIL/PETROL OINT 396 GM JAR TP SCH ×2 (10:30→20:17)
[2019-02-09] MEDS: VITS A AND D/WHITE PET/LANOLIN 5 GM PACKET TP SCH ×2 (10:30→20:18)
[2019-02-09] MEDS: ZINC OXIDE 30 GM TUBE TP SCH ×2 (10:30→20:18)
[2019-02-09] MEDS: BACI/NEOM/POLY B OINT PKT 1 UDPKT PACKET TP SCH ×2 (10:30→20:18)
[2019-02-09] MEDS: HYDROGEN PEROXIDE 480 ML BOTTLE TP SCH ×2 (10:30→20:17)
[2019-02-09] MEDS: Z GUARD REMEDY 4 OZ OINT TP SCH ×2 (10:30→20:18)
[2019-02-09] MEDS: HYDROGEL DRESSING 90 GM TUBE TP SCH ×2 (10:30→20:17)
[2019-02-09] MEDS: CLOTRIMAZOLE 1% 15 GM TUBE TP SCH ×2 (10:30→20:17)
[2019-02-09] MEDS: NEOMY SULF/BACITRAC ZN/POLY 15 GM TUBE TP SCH ×4 (10:30→20:17)
--- NOTE | 2019-02-09 10:30 | NUR ---
@ 10:15 am Resident returned from S/P hemodialysis treatment in stable condition. No s/s of any complicaions noted. LT upper chest jillian catheter intact, no bleeding noted. Covered with dressing, clean and dry. Kept comfortable in bed.
[2019-02-09] MEDS: NEPRO 1,000 ML BOTTLE GT PRN (12:25)
[2019-02-09] MEDS: ATORVASTATIN 10 MG TABLET GT SCH (21:04)
[2019-02-09] MEDS: LATANOPROST EYE DROP 0.005% 2.5 ML BOTTLE EACHEYE SCH (21:04)
[2019-02-09] MEDS: TAMSULOSIN 0.4 MG CAP.SR.24H PO SCH (21:05)
[2019-02-10] VITALS (8 sets, daily range): BP systolic 116–145; BP diastolic 57–83
[2019-02-10] MEDS: IPRATROPIUM NEB FS 0.5 MG/2.5 ML AMPUL.NEB IH SCH ×4 (01:48→19:44)
[2019-02-10] MEDS: LACOSAMIDE ORAL SOLN 50 MG/5 ML UDC GT SCH ×2 (05:29→17:52)
[2019-02-10] MEDS: SIMETHICONE SUSP 40 MG/0.6 ML BOTTLE GT SCH ×3 (05:29→17:52)
[2019-02-10] MEDS: BLOOD SUGAR DIAGNOSTIC 1 EACH STRIP IN SCH ×3 (05:29→17:52)
[2019-02-10] MEDS: PROSTAT (PYXIS) 30 ML UDC GT SCH ×3 (05:29→21:29)
[2019-02-10] MEDS: FAMOTIDINE (20 MG) 20 MG TABLET GT SCH (05:29)
[2019-02-10] MEDS: REGLAN GT SCH ×3 (05:29→17:52)
[2019-02-10] MEDS: INSULIN REGULAR, HUMAN 100 UNIT/ML 10 ML VIAL SQ SCH ×3 (05:30→17:53)
[2019-02-10] MEDS: POTASSIUM CHLORIDE 20 MEQ POWDER PACKET GT SCH (08:38)
[2019-02-10] MEDS: CHLORHEXIDINE GLUCONATE 15 ML UDC MM SCH ×2 (08:38→21:29)
[2019-02-10] MEDS: ASCORBIC ACID 500 MG TABLET GT SCH (08:38)
[2019-02-10] MEDS: DORZOLAMIDE OPTH 2% 10 ML BOTTLE EACHEYE SCH ×3 (08:38→17:52)
[2019-02-10] MEDS: ACIDOPHILUS/BULGARICUS 1 EACH TAB.CHEW GT SCH (08:38)
[2019-02-10] MEDS: LINAGLIPTIN 5 MG TABLET GT SCH (08:38)
[2019-02-10] MEDS: CARVEDILOL 6.25 MG TABLET GT SCH ×2 (08:38→21:29)
[2019-02-10] MEDS: FINASTERIDE (5 MG) 5 MG TABLET GT SCH (08:38)
[2019-02-10] MEDS: MINERAL OIL/PETROL OINT 396 GM JAR TP SCH ×2 (09:00→21:29)
[2019-02-10] MEDS: BACI/NEOM/POLY B OINT PKT 1 UDPKT PACKET TP SCH ×2 (09:00→21:29)
[2019-02-10] MEDS: Z GUARD REMEDY 4 OZ OINT TP SCH ×2 (09:00→21:29)
[2019-02-10] MEDS: HYDROGEL DRESSING 90 GM TUBE TP SCH ×2 (09:00→21:29)
[2019-02-10] MEDS: ZINC OXIDE 30 GM TUBE TP SCH ×2 (09:00→21:30)
[2019-02-10] MEDS: NEOMY SULF/BACITRAC ZN/POLY 15 GM TUBE TP SCH ×4 (09:00→21:29)
[2019-02-10] MEDS: CLOTRIMAZOLE 1% 15 GM TUBE TP SCH ×2 (09:00→21:29)
[2019-02-10] MEDS: HYDROGEN PEROXIDE 480 ML BOTTLE TP SCH ×2 (09:00→21:29)
[2019-02-10] MEDS: VITS A AND D/WHITE PET/LANOLIN 5 GM PACKET TP SCH ×2 (09:00→21:29)
[2019-02-10] MEDS: NEPRO 1,000 ML BOTTLE GT PRN (09:48)
[2019-02-10] MEDS: ATORVASTATIN 10 MG TABLET GT SCH (21:30)
[2019-02-10] MEDS: LATANOPROST EYE DROP 0.005% 2.5 ML BOTTLE EACHEYE SCH (21:30)
[2019-02-10] MEDS: TAMSULOSIN 0.4 MG CAP.SR.24H PO SCH (21:30)
[2019-02-11] VITALS (8 sets, daily range): BP systolic 123–151; BP diastolic 62–85
[2019-02-11] MEDS: INSULIN REGULAR, HUMAN 100 UNIT/ML 10 ML VIAL SQ SCH ×5 (00:26→23:18)
[2019-02-11] MEDS: SIMETHICONE SUSP 40 MG/0.6 ML BOTTLE GT SCH ×5 (00:26→23:17)
[2019-02-11] MEDS: REGLAN GT SCH ×5 (00:26→23:17)
[2019-02-11] MEDS: BLOOD SUGAR DIAGNOSTIC 1 EACH STRIP IN SCH ×5 (00:26→23:17)
[2019-02-11] MEDS: IPRATROPIUM NEB FS 0.5 MG/2.5 ML AMPUL.NEB IH SCH ×4 (01:28→20:06)
[2019-02-11] MEDS: FAMOTIDINE (20 MG) 20 MG TABLET GT SCH (05:46)
[2019-02-11] MEDS: PROSTAT (PYXIS) 30 ML UDC GT SCH ×3 (05:46→21:48)
[2019-02-11] MEDS: LACOSAMIDE ORAL SOLN 50 MG/5 ML UDC GT SCH ×2 (05:46→17:21)
[2019-02-11] MEDS: NEPRO 1,000 ML BOTTLE GT PRN (05:54)
[2019-02-11] MEDS: DORZOLAMIDE OPTH 2% 10 ML BOTTLE EACHEYE SCH ×3 (08:51→17:21)
[2019-02-11] MEDS: POTASSIUM CHLORIDE 20 MEQ POWDER PACKET GT SCH (08:52)
[2019-02-11] MEDS: MINERAL OIL/PETROL OINT 396 GM JAR TP SCH ×2 (08:52→21:48)
[2019-02-11] MEDS: CLOTRIMAZOLE 1% 15 GM TUBE TP SCH ×2 (08:52→21:49)
[2019-02-11] MEDS: ACIDOPHILUS/BULGARICUS 1 EACH TAB.CHEW GT SCH (08:52)
[2019-02-11] MEDS: LINAGLIPTIN 5 MG TABLET GT SCH (08:52)
[2019-02-11] MEDS: HYDROGEN PEROXIDE 480 ML BOTTLE TP SCH ×2 (08:52→21:48)
[2019-02-11] MEDS: NEOMY SULF/BACITRAC ZN/POLY 15 GM TUBE TP SCH ×4 (08:52→21:49)
[2019-02-11] MEDS: HYDROGEL DRESSING 90 GM TUBE TP SCH (08:52)
[2019-02-11] MEDS: CARVEDILOL 6.25 MG TABLET GT SCH ×2 (08:52→21:48)
[2019-02-11] MEDS: FINASTERIDE (5 MG) 5 MG TABLET GT SCH (08:52)
[2019-02-11] MEDS: CHLORHEXIDINE GLUCONATE 15 ML UDC MM SCH ×2 (08:52→21:48)
[2019-02-11] MEDS: ASCORBIC ACID 500 MG TABLET GT SCH (08:52)
[2019-02-11] MEDS: ZINC OXIDE 30 GM TUBE TP SCH ×3 (08:53→21:49)
[2019-02-11] MEDS: VITS A AND D/WHITE PET/LANOLIN 5 GM PACKET TP SCH ×2 (08:53→21:49)
[2019-02-11] MEDS: Z GUARD REMEDY 4 OZ OINT TP SCH ×2 (08:53→21:49)
[2019-02-11] MEDS ORDERED: ZINC OXIDE 30 GM TUBE TP PRN (16:30)
--- NOTE | 2019-02-11 16:33 | NUR ---
Seen by ROSEMARIE Lanier. She DC'd sacral scar treatment of Hydrogel. She ordered to apply zinc oxide cream to MASD bilateral buttocks/sacrum.
[2019-02-11] MEDS: TAMSULOSIN 0.4 MG CAP.SR.24H PO SCH (21:49)
[2019-02-11] MEDS: LATANOPROST EYE DROP 0.005% 2.5 ML BOTTLE EACHEYE SCH (21:49)
[2019-02-11] MEDS: ATORVASTATIN 10 MG TABLET GT SCH (21:49)
[2019-02-12 01:37] VITALS: BP 118/70
[2019-02-12] MEDS: IPRATROPIUM NEB FS 0.5 MG/2.5 ML AMPUL.NEB IH SCH ×5 (02:00→19:50)
[2019-02-12] MEDS: SIMETHICONE SUSP 40 MG/0.6 ML BOTTLE GT SCH ×4 (05:10→23:26)
[2019-02-12] MEDS: FAMOTIDINE (20 MG) 20 MG TABLET GT SCH (05:10)
[2019-02-12] MEDS: PROSTAT (PYXIS) 30 ML UDC GT SCH ×3 (05:10→21:04)
[2019-02-12] MEDS: REGLAN GT SCH ×4 (05:10→23:26)
[2019-02-12] MEDS: LACOSAMIDE ORAL SOLN 50 MG/5 ML UDC GT SCH ×2 (05:11→18:01)
[2019-02-12] MEDS: BLOOD SUGAR DIAGNOSTIC 1 EACH STRIP IN SCH ×4 (05:17→23:26)
[2019-02-12] MEDS: INSULIN REGULAR, HUMAN 100 UNIT/ML 10 ML VIAL SQ SCH ×4 (05:18→23:27)
[2019-02-12 05:24] VITALS: BP 129/59
[2019-02-12] MEDS: POTASSIUM CHLORIDE 20 MEQ POWDER PACKET GT SCH (09:00)
[2019-02-12] MEDS: CARVEDILOL 6.25 MG TABLET GT SCH ×2 (09:00→21:00)
[2019-02-12] MEDS: LINAGLIPTIN 5 MG TABLET GT SCH (09:00)
[2019-02-12] MEDS: FINASTERIDE (5 MG) 5 MG TABLET GT SCH (09:00)
[2019-02-12] MEDS: ACIDOPHILUS/BULGARICUS 1 EACH TAB.CHEW GT SCH (09:00)
[2019-02-12] MEDS: ASCORBIC ACID 500 MG TABLET GT SCH (09:00)
--- NOTE | 2019-02-12 09:15 | NUR ---
Dr. Ramírez, cross tie cutter made rounds but patient still at dialysis, NNO given at this time.
[2019-02-12] MEDS: HYDROGEN PEROXIDE 480 ML BOTTLE TP SCH ×2 (10:45→21:05)
[2019-02-12] MEDS: MINERAL OIL/PETROL OINT 396 GM JAR TP SCH ×2 (10:45→21:05)
[2019-02-12] MEDS: CHLORHEXIDINE GLUCONATE 15 ML UDC MM SCH ×2 (10:50→21:04)
[2019-02-12] MEDS: ZINC OXIDE 30 GM TUBE TP SCH ×4 (10:50→21:06)
[2019-02-12] MEDS: DORZOLAMIDE OPTH 2% 10 ML BOTTLE EACHEYE SCH ×3 (10:50→16:41)
[2019-02-12] MEDS: VITS A AND D/WHITE PET/LANOLIN 5 GM PACKET TP SCH ×2 (10:50→21:05)
[2019-02-12] MEDS: NEOMY SULF/BACITRAC ZN/POLY 15 GM TUBE TP SCH ×4 (10:50→21:05)
[2019-02-12] MEDS: CLOTRIMAZOLE 1% 15 GM TUBE TP SCH ×2 (10:50→21:05)
[2019-02-12] MEDS: Z GUARD REMEDY 4 OZ OINT TP SCH ×2 (10:50→21:05)
[2019-02-12 13:57] VITALS: BP 138/72
[2019-02-12 17:00] VITALS: BP 132/68
[2019-02-12] MEDS: LATANOPROST EYE DROP 0.005% 2.5 ML BOTTLE EACHEYE SCH (21:06)
[2019-02-12] MEDS: TAMSULOSIN 0.4 MG CAP.SR.24H PO SCH (21:06)
[2019-02-12] MEDS: ATORVASTATIN 10 MG TABLET GT SCH (21:06)
[2019-02-12 21:07] VITALS: BP 98/56
[2019-02-13] VITALS (9 sets, daily range): BP systolic 96–144; BP diastolic 50–74
[2019-02-13] MEDS: IPRATROPIUM NEB FS 0.5 MG/2.5 ML AMPUL.NEB IH SCH ×4 (01:55→19:48)
[2019-02-13] MEDS: REGLAN GT SCH ×4 (05:37→23:16)
[2019-02-13] MEDS: FAMOTIDINE (20 MG) 20 MG TABLET GT SCH (05:37)
[2019-02-13] MEDS: LACOSAMIDE ORAL SOLN 50 MG/5 ML UDC GT SCH ×2 (05:37→18:07)
[2019-02-13] MEDS: SIMETHICONE SUSP 40 MG/0.6 ML BOTTLE GT SCH ×4 (05:37→23:16)
[2019-02-13] MEDS: PROSTAT (PYXIS) 30 ML UDC GT SCH ×3 (05:37→21:20)
[2019-02-13] MEDS: NEPRO 1,000 ML BOTTLE GT PRN (05:45)
[2019-02-13] MEDS: BLOOD SUGAR DIAGNOSTIC 1 EACH STRIP IN SCH ×4 (06:10→23:16)
[2019-02-13] MEDS: INSULIN REGULAR, HUMAN 100 UNIT/ML 10 ML VIAL SQ SCH ×4 (06:11→23:17)
[2019-02-13] MEDS: DORZOLAMIDE OPTH 2% 10 ML BOTTLE EACHEYE SCH ×3 (09:01→17:00)
[2019-02-13] MEDS: POTASSIUM CHLORIDE 20 MEQ POWDER PACKET GT SCH (09:02)
[2019-02-13] MEDS: ACIDOPHILUS/BULGARICUS 1 EACH TAB.CHEW GT SCH (09:02)
[2019-02-13] MEDS: LINAGLIPTIN 5 MG TABLET GT SCH (09:02)
[2019-02-13] MEDS: CARVEDILOL 6.25 MG TABLET GT SCH ×2 (09:02→21:19)
[2019-02-13] MEDS: MINERAL OIL/PETROL OINT 396 GM JAR TP SCH ×2 (09:02→21:20)
[2019-02-13] MEDS: HYDROGEN PEROXIDE 480 ML BOTTLE TP SCH ×2 (09:02→21:20)
[2019-02-13] MEDS: CHLORHEXIDINE GLUCONATE 15 ML UDC MM SCH ×2 (09:02→21:22)
[2019-02-13] MEDS: ASCORBIC ACID 500 MG TABLET GT SCH (09:02)
[2019-02-13] MEDS: FINASTERIDE (5 MG) 5 MG TABLET GT SCH (09:02)
[2019-02-13] MEDS: NEOMY SULF/BACITRAC ZN/POLY 15 GM TUBE TP SCH ×4 (09:03→21:21)
[2019-02-13] MEDS: Z GUARD REMEDY 4 OZ OINT TP SCH ×2 (09:03→21:21)
[2019-02-13] MEDS: CLOTRIMAZOLE 1% 15 GM TUBE TP SCH ×2 (09:03→21:20)
[2019-02-13] MEDS: ZINC OXIDE 30 GM TUBE TP SCH ×4 (09:03→21:21)
[2019-02-13] MEDS: VITS A AND D/WHITE PET/LANOLIN 5 GM PACKET TP SCH ×2 (09:03→21:21)
--- NOTE | 2019-02-13 15:30 | NUR ---
Seen and examined by Dr. Garduno NNO given.
[2019-02-13] MEDS: LATANOPROST EYE DROP 0.005% 2.5 ML BOTTLE EACHEYE SCH (21:21)
[2019-02-13] MEDS: TAMSULOSIN 0.4 MG CAP.SR.24H PO SCH (21:21)
[2019-02-13] MEDS: ATORVASTATIN 10 MG TABLET GT SCH (21:21)
[2019-02-14 01:00] VITALS: BP 130/62
[2019-02-14] MEDS: IPRATROPIUM NEB FS 0.5 MG/2.5 ML AMPUL.NEB IH SCH ×4 (01:24→19:25)
[2019-02-14] MEDS: REGLAN GT SCH ×3 (05:14→17:24)
[2019-02-14] MEDS: PROSTAT (PYXIS) 30 ML UDC GT SCH ×3 (05:14→21:12)
[2019-02-14] MEDS: LACOSAMIDE ORAL SOLN 50 MG/5 ML UDC GT SCH ×2 (05:14→17:25)
[2019-02-14] MEDS: SIMETHICONE SUSP 40 MG/0.6 ML BOTTLE GT SCH ×3 (05:14→17:24)
[2019-02-14] MEDS: BLOOD SUGAR DIAGNOSTIC 1 EACH STRIP IN SCH ×3 (05:14→17:25)
[2019-02-14] MEDS: FAMOTIDINE (20 MG) 20 MG TABLET GT SCH (05:14)
[2019-02-14] MEDS: INSULIN REGULAR, HUMAN 100 UNIT/ML 10 ML VIAL SQ SCH ×3 (05:17→17:25)
[2019-02-14 05:18] VITALS: BP 112/66
[2019-02-14] MEDS: DORZOLAMIDE OPTH 2% 10 ML BOTTLE EACHEYE SCH ×3 (09:00→17:24)
[2019-02-14] MEDS: LINAGLIPTIN 5 MG TABLET GT SCH (09:00)
[2019-02-14] MEDS: ACIDOPHILUS/BULGARICUS 1 EACH TAB.CHEW GT SCH (09:00)
[2019-02-14] MEDS: ASCORBIC ACID 500 MG TABLET GT SCH (09:00)
[2019-02-14] MEDS: CARVEDILOL 6.25 MG TABLET GT SCH ×2 (09:00→21:12)
[2019-02-14] MEDS: FINASTERIDE (5 MG) 5 MG TABLET GT SCH (09:00)
[2019-02-14] MEDS: CHLORHEXIDINE GLUCONATE 15 ML UDC MM SCH ×2 (09:00→21:12)
[2019-02-14] MEDS: POTASSIUM CHLORIDE 20 MEQ POWDER PACKET GT SCH (09:00)
[2019-02-14] MEDS: HYDROGEN PEROXIDE 480 ML BOTTLE TP SCH ×2 (09:00→21:12)
[2019-02-14 11:10] VITALS: BP 121/63
[2019-02-14] MEDS: Z GUARD REMEDY 4 OZ OINT TP SCH ×2 (11:30→21:13)
[2019-02-14] MEDS: ZINC OXIDE 30 GM TUBE TP SCH ×4 (11:30→21:13)
[2019-02-14] MEDS: CLOTRIMAZOLE 1% 15 GM TUBE TP SCH ×2 (11:30→21:12)
[2019-02-14] MEDS: VITS A AND D/WHITE PET/LANOLIN 5 GM PACKET TP SCH ×2 (11:30→21:13)
[2019-02-14] MEDS: NEPRO 1,000 ML BOTTLE GT PRN (11:30)
[2019-02-14] MEDS: MINERAL OIL/PETROL OINT 396 GM JAR TP SCH ×2 (11:30→21:12)
[2019-02-14] MEDS: NEOMY SULF/BACITRAC ZN/POLY 15 GM TUBE TP SCH ×4 (11:30→21:13)
[2019-02-14 13:00] VITALS: BP 125/60
[2019-02-14 17:00] VITALS: BP 126/65
--- NOTE | 2019-02-14 19:30 | NUR ---
Seen and examined by Nilam arnold.
[2019-02-14 21:00] VITALS: BP 131/60
[2019-02-14] MEDS: LATANOPROST EYE DROP 0.005% 2.5 ML BOTTLE EACHEYE SCH (21:13)
[2019-02-14] MEDS: ATORVASTATIN 10 MG TABLET GT SCH (21:13)
[2019-02-14] MEDS: TAMSULOSIN 0.4 MG CAP.SR.24H PO SCH (21:13)
[2019-02-15] VITALS (8 sets, daily range): BP systolic 107–133; BP diastolic 53–68
[2019-02-15] MEDS: REGLAN GT SCH ×4 (00:29→17:09)
[2019-02-15] MEDS: SIMETHICONE SUSP 40 MG/0.6 ML BOTTLE GT SCH ×4 (00:30→17:09)
[2019-02-15] MEDS: INSULIN REGULAR, HUMAN 100 UNIT/ML 10 ML VIAL SQ SCH ×4 (00:30→17:11)
[2019-02-15] MEDS: BLOOD SUGAR DIAGNOSTIC 1 EACH STRIP IN SCH ×4 (00:30→17:09)
--- NOTE | 2019-02-15 03:00 | NUR ---
Pt with episodes of low HR 38 to 40's,and will go back up to low 50's.Arousable,no distress noted.Will continue to monitor.
[2019-02-15] MEDS: LACOSAMIDE ORAL SOLN 50 MG/5 ML UDC GT SCH ×2 (05:22→17:09)
[2019-02-15] MEDS: FAMOTIDINE (20 MG) 20 MG TABLET GT SCH (05:22)
[2019-02-15] MEDS: PROSTAT (PYXIS) 30 ML UDC GT SCH ×3 (05:22→21:18)
--- NOTE | 2019-02-15 05:49 | NUR ---
GT balloon broken,replaced with same size [id number] balloon with no difficulty.Ordered KUB to confirm GT placement.
[2019-02-15] MEDS ORDERED: DIATR MEGLU/DIATRIZOATE SODIUM 30 ML BOTTLE (GASTROGRAPHIN) ONE (07:22)
[2019-02-15] MEDS: IPRATROPIUM NEB FS 0.5 MG/2.5 ML AMPUL.NEB IH SCH ×3 (07:50→19:00)
--- NOTE | 2019-02-15 09:20 | NUR ---
Reported KUB result (02/15/19) to Dr. Garduno NNO given, he said it is OK to use GT for feeding and medication administration.
[2019-02-15] MEDS: DORZOLAMIDE OPTH 2% 10 ML BOTTLE EACHEYE SCH ×3 (09:55→17:09)
[2019-02-15] MEDS: Z GUARD REMEDY 4 OZ OINT TP SCH ×2 (09:56→21:18)
[2019-02-15] MEDS: LINAGLIPTIN 5 MG TABLET GT SCH (09:56)
[2019-02-15] MEDS: MINERAL OIL/PETROL OINT 396 GM JAR TP SCH ×2 (09:56→21:18)
[2019-02-15] MEDS: ZINC OXIDE 30 GM TUBE TP SCH ×2 (09:56→21:19)
[2019-02-15] MEDS: ACIDOPHILUS/BULGARICUS 1 EACH TAB.CHEW GT SCH (09:56)
[2019-02-15] MEDS: FINASTERIDE (5 MG) 5 MG TABLET GT SCH (09:56)
[2019-02-15] MEDS: ASCORBIC ACID 500 MG TABLET GT SCH (09:56)
[2019-02-15] MEDS: CARVEDILOL 6.25 MG TABLET GT SCH ×2 (09:56→21:17)
[2019-02-15] MEDS: NEOMY SULF/BACITRAC ZN/POLY 15 GM TUBE TP SCH ×4 (09:56→21:18)
[2019-02-15] MEDS: CHLORHEXIDINE GLUCONATE 15 ML UDC MM SCH ×2 (09:56→21:18)
[2019-02-15] MEDS: POTASSIUM CHLORIDE 20 MEQ POWDER PACKET GT SCH (09:56)
[2019-02-15] MEDS: VITS A AND D/WHITE PET/LANOLIN 5 GM PACKET TP SCH ×2 (09:56→21:18)
[2019-02-15] MEDS: HYDROGEN PEROXIDE 480 ML BOTTLE TP SCH ×2 (14:06→21:18)
--- NOTE | 2019-02-15 15:00 | NUR ---
INTERDISCIPLINARY PLAN OF CARE CONFERENCE was held today Resident's son, Dr. Johns attended IDT meeting via phone conference. Dr. Ramírez and the interdisciplinary team discussed the current plan of care in detail. Current orders as well as treatments and medications were reviewed. No significant change in condition except for some local skin treatment that were initiated. Patient continue tolerate cool aerosol during the days and ventilator at night. Dr. Johns claims he asked dialysis center staff at [facility] and was told that patient comes with ventilator when he is transferred for dialysis. For clarification purposes, Dr. Ramírez ordered to put patient on cool aerosol from 5AM to 12 midnight instead of 7 am to 12 midnight. Order carried out. Resident's son also made aware that GT came out last night and reinserted by child life assistant, KUB was done and result reported to Dr. Garduno, which he said OK to use. Patient's isolation will be addressed on Monday by nursing care partner with Infectious disease team.
--- NOTE | 2019-02-15 17:17 | NUR ---
RT NOTE: RECEIVED PT ON NOTED ORDERED VENT SETTINGS. PLACED PT ON 28% COOL AEROSOL PER QDAY ORDER. TONY WELL. NO RESPIRATORY DISTRESS NOTED. TRACH CHECKED SECURE AND PATENT. SXD AND LAVAGED PT Q ROUND AND NEEDED. TXS GIVEN ORDERED WITH NO ADVERSE REACTIONS NOTED. TRACH CARE DONE. SPARE TRACH AND AMBU BAG @ BEDSIDE. ALARMS CHECKED ON AND AUDIBLE. Addendum: 02/15/19 at 1718 by NILESH NUNO RT Amended: Links added.
[2019-02-15] MEDS: TAMSULOSIN 0.4 MG CAP.SR.24H PO SCH (21:19)
[2019-02-15] MEDS: ATORVASTATIN 10 MG TABLET GT SCH (21:19)
[2019-02-15] MEDS: LATANOPROST EYE DROP 0.005% 2.5 ML BOTTLE EACHEYE SCH (21:19)
[2019-02-16] VITALS (7 sets, daily range): BP systolic 112–136; BP diastolic 54–66
[2019-02-16] MEDS: SIMETHICONE SUSP 40 MG/0.6 ML BOTTLE GT SCH ×4 (00:01→18:04)
[2019-02-16] MEDS: BLOOD SUGAR DIAGNOSTIC 1 EACH STRIP IN SCH ×4 (00:07→18:05)
[2019-02-16] MEDS: INSULIN REGULAR, HUMAN 100 UNIT/ML 10 ML VIAL SQ SCH ×4 (00:12→18:06)
[2019-02-16] MEDS: IPRATROPIUM NEB FS 0.5 MG/2.5 ML AMPUL.NEB IH SCH ×4 (00:34→19:58)
[2019-02-16] MEDS: PROSTAT (PYXIS) 30 ML UDC GT SCH ×3 (05:11→21:48)
[2019-02-16] MEDS: REGLAN GT SCH ×4 (05:24→18:04)
[2019-02-16] MEDS: FAMOTIDINE (20 MG) 20 MG TABLET GT SCH (05:24)
[2019-02-16] MEDS: LACOSAMIDE ORAL SOLN 50 MG/5 ML UDC GT SCH ×2 (06:33→18:05)
[2019-02-16] MEDS: POTASSIUM CHLORIDE 20 MEQ POWDER PACKET GT SCH (10:45)
[2019-02-16] MEDS: CARVEDILOL 6.25 MG TABLET GT SCH ×2 (10:45→21:48)
[2019-02-16] MEDS: ACIDOPHILUS/BULGARICUS 1 EACH TAB.CHEW GT SCH (10:45)
[2019-02-16] MEDS: DORZOLAMIDE OPTH 2% 10 ML BOTTLE EACHEYE SCH ×3 (10:45→17:50)
[2019-02-16] MEDS: LINAGLIPTIN 5 MG TABLET GT SCH (10:45)
[2019-02-16] MEDS: ASCORBIC ACID 500 MG TABLET GT SCH (10:45)
[2019-02-16] MEDS: FINASTERIDE (5 MG) 5 MG TABLET GT SCH (10:45)
[2019-02-16] MEDS: VITS A AND D/WHITE PET/LANOLIN 5 GM PACKET TP SCH ×2 (11:10→21:49)
[2019-02-16] MEDS: MINERAL OIL/PETROL OINT 396 GM JAR TP SCH ×2 (11:10→21:48)
[2019-02-16] MEDS: CHLORHEXIDINE GLUCONATE 15 ML UDC MM SCH ×2 (11:10→21:48)
[2019-02-16] MEDS: Z GUARD REMEDY 4 OZ OINT TP SCH ×2 (11:10→21:49)
[2019-02-16] MEDS: NEOMY SULF/BACITRAC ZN/POLY 15 GM TUBE TP SCH ×4 (11:10→21:48)
[2019-02-16] MEDS: ZINC OXIDE 30 GM TUBE TP SCH ×2 (11:10→21:49)
[2019-02-16] MEDS: HYDROGEN PEROXIDE 480 ML BOTTLE TP SCH ×3 (13:49→21:48)
--- NOTE | 2019-02-16 16:08 | NUR ---
RT NOTE: PT WENT TO HEMODIALYSIS TX DURING PLUG SAW OPERATOR. RECEIVED PT BACK ON 28% COOL AEROSOL WITH NO DISTRESS NOTED. TRACH CHECKED SECURE AND PATENT. SXD AND LAVAGED PT Q ROUND AND NEEDED. TXS GIVEN ORDERED WITH NO ADVERSE REACTIONS NOTED. TRACH CARE DONE. SPARE TRACH AND AMBU BAG @ BEDSIDE.
[2019-02-16] MEDS: ATORVASTATIN 10 MG TABLET GT SCH (21:49)
[2019-02-16] MEDS: LATANOPROST EYE DROP 0.005% 2.5 ML BOTTLE EACHEYE SCH (21:49)
[2019-02-16] MEDS: TAMSULOSIN 0.4 MG CAP.SR.24H PO SCH (21:49)
[2019-02-17] VITALS (7 sets, daily range): BP systolic 88–148; BP diastolic 56–72
[2019-02-17] MEDS: SIMETHICONE SUSP 40 MG/0.6 ML BOTTLE GT SCH ×4 (00:08→18:10)
[2019-02-17] MEDS: REGLAN GT SCH ×4 (00:08→18:10)
[2019-02-17] MEDS: BLOOD SUGAR DIAGNOSTIC 1 EACH STRIP IN SCH ×4 (00:08→18:10)
[2019-02-17] MEDS: INSULIN REGULAR, HUMAN 100 UNIT/ML 10 ML VIAL SQ SCH ×4 (00:09→18:15)
[2019-02-17] MEDS: IPRATROPIUM NEB FS 0.5 MG/2.5 ML AMPUL.NEB IH SCH ×4 (01:47→19:19)
[2019-02-17] MEDS: FAMOTIDINE (20 MG) 20 MG TABLET GT SCH (05:51)
[2019-02-17] MEDS: LACOSAMIDE ORAL SOLN 50 MG/5 ML UDC GT SCH ×2 (05:51→18:10)
[2019-02-17] MEDS: PROSTAT (PYXIS) 30 ML UDC GT SCH ×3 (05:51→20:23)
[2019-02-17] MEDS: NEPRO 1,000 ML BOTTLE GT PRN (05:58)
--- NOTE | 2019-02-17 07:25 | NUR ---
PATIENT'S HR THROUGH OUT THE SHIFT WAS BETWEEN 74-78BPM. NO DISTRESS. WILL ENDORSE TO UP COMING NURSE
[2019-02-17] MEDS: ZINC OXIDE 30 GM TUBE TP SCH ×2 (09:00→20:24)
[2019-02-17] MEDS: VITS A AND D/WHITE PET/LANOLIN 5 GM PACKET TP SCH ×2 (09:00→20:24)
[2019-02-17] MEDS: CHLORHEXIDINE GLUCONATE 15 ML UDC MM SCH ×2 (09:00→20:23)
[2019-02-17] MEDS: LINAGLIPTIN 5 MG TABLET GT SCH (09:00)
[2019-02-17] MEDS: ACIDOPHILUS/BULGARICUS 1 EACH TAB.CHEW GT SCH (09:00)
[2019-02-17] MEDS: POTASSIUM CHLORIDE 20 MEQ POWDER PACKET GT SCH (09:00)
[2019-02-17] MEDS: DORZOLAMIDE OPTH 2% 10 ML BOTTLE EACHEYE SCH ×3 (09:00→17:00)
[2019-02-17] MEDS: HYDROGEN PEROXIDE 480 ML BOTTLE TP SCH ×2 (09:00→20:23)
[2019-02-17] MEDS: Z GUARD REMEDY 4 OZ OINT TP SCH ×2 (09:00→20:24)
[2019-02-17] MEDS: FINASTERIDE (5 MG) 5 MG TABLET GT SCH (09:00)
[2019-02-17] MEDS: MINERAL OIL/PETROL OINT 396 GM JAR TP SCH ×2 (09:00→20:23)
[2019-02-17] MEDS: NEOMY SULF/BACITRAC ZN/POLY 15 GM TUBE TP SCH ×4 (09:00→20:23)
[2019-02-17] MEDS: ASCORBIC ACID 500 MG TABLET GT SCH (09:00)
[2019-02-17] MEDS: CARVEDILOL 6.25 MG TABLET GT SCH ×2 (09:00→20:23)
[2019-02-17] MEDS: ATORVASTATIN 10 MG TABLET GT SCH (22:05)
[2019-02-17] MEDS: LATANOPROST EYE DROP 0.005% 2.5 ML BOTTLE EACHEYE SCH (22:05)
[2019-02-17] MEDS: TAMSULOSIN 0.4 MG CAP.SR.24H PO SCH (22:05)
[2019-02-18] VITALS (7 sets, daily range): BP systolic 112–131; BP diastolic 54–82
[2019-02-18] MEDS: REGLAN GT SCH ×4 (00:28→17:33)
[2019-02-18] MEDS: BLOOD SUGAR DIAGNOSTIC 1 EACH STRIP IN SCH ×4 (00:28→18:19)
[2019-02-18] MEDS: SIMETHICONE SUSP 40 MG/0.6 ML BOTTLE GT SCH ×4 (00:28→17:33)
[2019-02-18] MEDS: INSULIN REGULAR, HUMAN 100 UNIT/ML 10 ML VIAL SQ SCH ×4 (00:29→18:21)
[2019-02-18] MEDS: IPRATROPIUM NEB FS 0.5 MG/2.5 ML AMPUL.NEB IH SCH ×4 (01:16→19:43)
[2019-02-18] MEDS: FAMOTIDINE (20 MG) 20 MG TABLET GT SCH (05:26)
[2019-02-18] MEDS: PROSTAT (PYXIS) 30 ML UDC GT SCH ×3 (05:26→21:00)
[2019-02-18] MEDS: LACOSAMIDE ORAL SOLN 50 MG/5 ML UDC GT SCH ×2 (05:28→17:33)
[2019-02-18] MEDS: NEPRO 1,000 ML BOTTLE GT PRN (06:02)
[2019-02-18] MEDS: HYDROGEN PEROXIDE 480 ML BOTTLE TP SCH ×2 (09:00→21:00)
[2019-02-18] MEDS: ZINC OXIDE 30 GM TUBE TP SCH ×2 (09:00→21:00)
[2019-02-18] MEDS: CARVEDILOL 6.25 MG TABLET GT SCH ×2 (09:00→22:00)
[2019-02-18] MEDS: ACIDOPHILUS/BULGARICUS 1 EACH TAB.CHEW GT SCH (09:00)
[2019-02-18] MEDS: POTASSIUM CHLORIDE 20 MEQ POWDER PACKET GT SCH (09:00)
[2019-02-18] MEDS: LINAGLIPTIN 5 MG TABLET GT SCH (09:00)
[2019-02-18] MEDS: CHLORHEXIDINE GLUCONATE 15 ML UDC MM SCH ×2 (09:00→21:00)
[2019-02-18] MEDS: VITS A AND D/WHITE PET/LANOLIN 5 GM PACKET TP SCH ×2 (09:00→21:00)
[2019-02-18] MEDS: FINASTERIDE (5 MG) 5 MG TABLET GT SCH (09:00)
[2019-02-18] MEDS: Z GUARD REMEDY 4 OZ OINT TP SCH ×2 (09:00→21:00)
[2019-02-18] MEDS: DORZOLAMIDE OPTH 2% 10 ML BOTTLE EACHEYE SCH ×3 (09:00→17:33)
[2019-02-18] MEDS: MINERAL OIL/PETROL OINT 396 GM JAR TP SCH ×2 (09:00→21:00)
[2019-02-18] MEDS: ASCORBIC ACID 500 MG TABLET GT SCH (09:00)
[2019-02-18] MEDS: NEOMY SULF/BACITRAC ZN/POLY 15 GM TUBE TP SCH ×2 (09:00)
--- NOTE | 2019-02-18 13:59 | NUR ---
Seen by BRANDO Pineda. Notified her that pt has episodes of bradycardia as endorsed by night charge nurse. Pt's HR has been in the 70's during this shift. BRANDO Pineda ordered to change Carvedilol parameter from HR 55 to 60.
[2019-02-18] MEDS: ATORVASTATIN 10 MG TABLET GT SCH (22:02)
[2019-02-18] MEDS: LATANOPROST EYE DROP 0.005% 2.5 ML BOTTLE EACHEYE SCH (22:02)
[2019-02-18] MEDS: TAMSULOSIN 0.4 MG CAP.SR.24H PO SCH (22:02)
[2019-02-19 01:00] VITALS: BP 121/67
[2019-02-19] MEDS: BLOOD SUGAR DIAGNOSTIC 1 EACH STRIP IN SCH ×4 (01:28→18:24)
[2019-02-19] MEDS: IPRATROPIUM NEB FS 0.5 MG/2.5 ML AMPUL.NEB IH SCH ×4 (01:51→20:36)
[2019-02-19 05:00] VITALS: BP 118/56
[2019-02-19] MEDS: PROSTAT (PYXIS) 30 ML UDC GT SCH ×3 (05:20→20:11)
[2019-02-19] MEDS: SIMETHICONE SUSP 40 MG/0.6 ML BOTTLE GT SCH ×4 (05:21→18:17)
[2019-02-19] MEDS: REGLAN GT SCH ×4 (05:21→18:17)
[2019-02-19] MEDS: FAMOTIDINE (20 MG) 20 MG TABLET GT SCH (05:23)
[2019-02-19] MEDS: INSULIN REGULAR, HUMAN 100 UNIT/ML 10 ML VIAL SQ SCH ×4 (05:25→18:26)
[2019-02-19] MEDS: LACOSAMIDE ORAL SOLN 50 MG/5 ML UDC GT SCH ×2 (05:28→18:20)
[2019-02-19] MEDS: HYDROGEN PEROXIDE 480 ML BOTTLE TP SCH ×2 (09:00→20:11)
[2019-02-19] MEDS: CARVEDILOL 6.25 MG TABLET GT SCH ×2 (10:40→20:11)
[2019-02-19] MEDS: FINASTERIDE (5 MG) 5 MG TABLET GT SCH (10:40)
[2019-02-19] MEDS: CHLORHEXIDINE GLUCONATE 15 ML UDC MM SCH ×2 (10:40→20:11)
[2019-02-19] MEDS: MINERAL OIL/PETROL OINT 396 GM JAR TP SCH ×2 (10:40→20:11)
[2019-02-19] MEDS: VITS A AND D/WHITE PET/LANOLIN 5 GM PACKET TP SCH ×2 (10:40→20:11)
[2019-02-19] MEDS: ACIDOPHILUS/BULGARICUS 1 EACH TAB.CHEW GT SCH (10:40)
[2019-02-19] MEDS: Z GUARD REMEDY 4 OZ OINT TP SCH ×2 (10:40→20:11)
[2019-02-19] MEDS: ASCORBIC ACID 500 MG TABLET GT SCH (10:40)
[2019-02-19] MEDS: POTASSIUM CHLORIDE 20 MEQ POWDER PACKET GT SCH (10:40)
[2019-02-19] MEDS: ZINC OXIDE 30 GM TUBE TP SCH ×2 (10:40→20:11)
[2019-02-19] MEDS: LINAGLIPTIN 5 MG TABLET GT SCH (10:40)
[2019-02-19] MEDS: DORZOLAMIDE OPTH 2% 10 ML BOTTLE EACHEYE SCH ×3 (10:40→17:00)
[2019-02-19 11:00] VITALS: BP 102/54
[2019-02-19 17:21] VITALS: BP 102/54
[2019-02-19 20:47] VITALS: BP 122/69
[2019-02-19 21:13] VITALS: BP 122/69
[2019-02-19] MEDS: LATANOPROST EYE DROP 0.005% 2.5 ML BOTTLE EACHEYE SCH (21:25)
[2019-02-19] MEDS: ATORVASTATIN 10 MG TABLET GT SCH (21:25)
[2019-02-19] MEDS: TAMSULOSIN 0.4 MG CAP.SR.24H PO SCH (21:25)
[2019-02-20] VITALS (8 sets, daily range): BP systolic 113–142; BP diastolic 55–74
[2019-02-20] MEDS: BLOOD SUGAR DIAGNOSTIC 1 EACH STRIP IN SCH ×4 (00:42→17:44)
[2019-02-20] MEDS: SIMETHICONE SUSP 40 MG/0.6 ML BOTTLE GT SCH ×4 (00:42→17:44)
[2019-02-20] MEDS: REGLAN GT SCH ×4 (00:42→17:44)
[2019-02-20] MEDS: INSULIN REGULAR, HUMAN 100 UNIT/ML 10 ML VIAL SQ SCH ×4 (00:43→18:41)
[2019-02-20] MEDS: IPRATROPIUM NEB FS 0.5 MG/2.5 ML AMPUL.NEB IH SCH ×4 (02:28→20:21)
[2019-02-20] MEDS: PROSTAT (PYXIS) 30 ML UDC GT SCH ×3 (05:39→21:19)
[2019-02-20] MEDS: FAMOTIDINE (20 MG) 20 MG TABLET GT SCH (05:41)
[2019-02-20] MEDS: LACOSAMIDE ORAL SOLN 50 MG/5 ML UDC GT SCH ×2 (05:42→17:44)
[2019-02-20] MEDS: DORZOLAMIDE OPTH 2% 10 ML BOTTLE EACHEYE SCH ×3 (09:35→17:44)
[2019-02-20] MEDS: LINAGLIPTIN 5 MG TABLET GT SCH (09:36)
[2019-02-20] MEDS: CARVEDILOL 6.25 MG TABLET GT SCH ×2 (09:36→21:18)
[2019-02-20] MEDS: ACIDOPHILUS/BULGARICUS 1 EACH TAB.CHEW GT SCH (09:36)
[2019-02-20] MEDS: ASCORBIC ACID 500 MG TABLET GT SCH (09:36)
[2019-02-20] MEDS: FINASTERIDE (5 MG) 5 MG TABLET GT SCH (09:36)
[2019-02-20] MEDS: CHLORHEXIDINE GLUCONATE 15 ML UDC MM SCH ×2 (09:36→21:21)
[2019-02-20] MEDS: POTASSIUM CHLORIDE 20 MEQ POWDER PACKET GT SCH (09:36)
[2019-02-20] MEDS: VITS A AND D/WHITE PET/LANOLIN 5 GM PACKET TP SCH ×2 (09:37→21:21)
[2019-02-20] MEDS: Z GUARD REMEDY 4 OZ OINT TP SCH ×2 (09:37→21:21)
[2019-02-20] MEDS: MINERAL OIL/PETROL OINT 396 GM JAR TP SCH ×2 (09:37→21:21)
[2019-02-20] MEDS: HYDROGEN PEROXIDE 480 ML BOTTLE TP SCH ×2 (09:37→20:21)
[2019-02-20] MEDS: ZINC OXIDE 30 GM TUBE TP SCH ×2 (09:39→21:21)
--- NOTE | 2019-02-20 16:00 | NUR ---
Spoke with Dr. Swenson, ID asked if isolation can be discontinued, patient's source of infection is healed and closed. He said that it is OK to DC the isolation if the source is closed. international trade compliance manager informed. Will arrange to clean the patient and the environment in AM.
--- NOTE | 2019-02-20 18:36 | NUR ---
Informed Dr. 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 however patient and environment should be clean prior to removing isolation sign and this will be done in AM. Dr. Johns verbalized understanding, that will continue to use PPE's when entering the room.
[2019-02-20] MEDS: LATANOPROST EYE DROP 0.005% 2.5 ML BOTTLE EACHEYE SCH (21:22)
[2019-02-20] MEDS: ATORVASTATIN 10 MG TABLET GT SCH (21:23)
[2019-02-20] MEDS: TAMSULOSIN 0.4 MG CAP.SR.24H PO SCH (21:23)
[2019-02-21] MEDS: BLOOD SUGAR DIAGNOSTIC 1 EACH STRIP IN SCH ×4 (00:24→18:02)
[2019-02-21] MEDS: REGLAN GT SCH ×4 (00:24→17:26)
[2019-02-21] MEDS: SIMETHICONE SUSP 40 MG/0.6 ML BOTTLE GT SCH ×4 (00:24→17:26)
[2019-02-21] MEDS: INSULIN REGULAR, HUMAN 100 UNIT/ML 10 ML VIAL SQ SCH ×4 (00:25→18:02)
[2019-02-21 01:50] VITALS: BP 145/60
[2019-02-21] MEDS: IPRATROPIUM NEB FS 0.5 MG/2.5 ML AMPUL.NEB IH SCH ×4 (02:14→19:20)
[2019-02-21] MEDS: PROSTAT (PYXIS) 30 ML UDC GT SCH ×3 (05:15→21:44)
[2019-02-21] MEDS: FAMOTIDINE (20 MG) 20 MG TABLET GT SCH (05:16)
[2019-02-21] MEDS: LACOSAMIDE ORAL SOLN 50 MG/5 ML UDC GT SCH ×2 (05:17→17:26)
[2019-02-21 05:58] VITALS: BP 118/65
[2019-02-21] MEDS ORDERED: MUPIROCIN OINT 2% 22 GM TUBE TP SCH (09:00)
[2019-02-21] MEDS: DORZOLAMIDE OPTH 2% 10 ML BOTTLE EACHEYE SCH ×3 (09:00→17:26)
[2019-02-21] MEDS: ACIDOPHILUS/BULGARICUS 1 EACH TAB.CHEW GT SCH (09:00)
[2019-02-21] MEDS: CHLORHEXIDINE GLUCONATE 15 ML UDC MM SCH ×2 (09:00→21:44)
[2019-02-21] MEDS: FINASTERIDE (5 MG) 5 MG TABLET GT SCH (09:00)
[2019-02-21] MEDS: POTASSIUM CHLORIDE 20 MEQ POWDER PACKET GT SCH (09:00)
[2019-02-21] MEDS: CARVEDILOL 6.25 MG TABLET GT SCH ×2 (09:00→21:00)
[2019-02-21] MEDS: LINAGLIPTIN 5 MG TABLET GT SCH (09:00)
[2019-02-21] MEDS: ASCORBIC ACID 500 MG TABLET GT SCH (09:00)
--- NOTE | 2019-02-21 10:30 | NUR ---
Resident came back from dialysis. Stable. No s/s of distress/discomfort. Trach secured and midline. Perma cath on left chest intact, no bleeding noted. Dressing dry and intact. Placed back to bed and made comfortable. Will continue to monitor.
[2019-02-21] MEDS: NEPRO 1,000 ML BOTTLE GT PRN (10:59)
[2019-02-21] MEDS: HYDROGEN PEROXIDE 480 ML BOTTLE TP SCH ×3 (12:00→21:44)
[2019-02-21] MEDS: MINERAL OIL/PETROL OINT 396 GM JAR TP SCH ×2 (12:00→21:44)
[2019-02-21] MEDS: ZINC OXIDE 30 GM TUBE TP SCH ×2 (12:00→21:45)
[2019-02-21] MEDS: BACI/NEOM/POLY B OINT PKT 1 UDPKT PACKET TP SCH ×4 (12:00→21:44)
[2019-02-21] MEDS: VITS A AND D/WHITE PET/LANOLIN 5 GM PACKET TP SCH ×2 (12:00→21:45)
[2019-02-21] MEDS: Z GUARD REMEDY 4 OZ OINT TP SCH ×2 (12:00→21:45)
[2019-02-21 13:00] VITALS: BP 115/63
[2019-02-21 18:00] VITALS: BP 110/54
[2019-02-21 20:18] VITALS: BP 110/63
[2019-02-21] MEDS: ATORVASTATIN 10 MG TABLET GT SCH (21:45)
[2019-02-21] MEDS: LATANOPROST EYE DROP 0.005% 2.5 ML BOTTLE EACHEYE SCH (21:45)
[2019-02-21] MEDS: TAMSULOSIN 0.4 MG CAP.SR.24H PO SCH (21:45)
[2019-02-21 21:46] VITALS: BP 108/60
[2019-02-22] VITALS (8 sets, daily range): BP systolic 119–156; BP diastolic 56–92
[2019-02-22] MEDS: REGLAN GT SCH ×5 (00:11→23:36)
[2019-02-22] MEDS: SIMETHICONE SUSP 40 MG/0.6 ML BOTTLE GT SCH ×5 (00:11→23:36)
[2019-02-22] MEDS: INSULIN REGULAR, HUMAN 100 UNIT/ML 10 ML VIAL SQ SCH ×5 (00:12→23:22)
[2019-02-22] MEDS: BLOOD SUGAR DIAGNOSTIC 1 EACH STRIP IN SCH ×5 (00:13→23:13)
[2019-02-22] MEDS: IPRATROPIUM NEB FS 0.5 MG/2.5 ML AMPUL.NEB IH SCH ×4 (00:49→20:00)
[2019-02-22] MEDS: NEPRO 1,000 ML BOTTLE GT PRN ×2 (05:50→09:00)
[2019-02-22] MEDS: LACOSAMIDE ORAL SOLN 50 MG/5 ML UDC GT SCH ×2 (05:50→17:52)
[2019-02-22] MEDS: PROSTAT (PYXIS) 30 ML UDC GT SCH ×3 (05:50→21:14)
[2019-02-22] MEDS: FAMOTIDINE (20 MG) 20 MG TABLET GT SCH (05:50)
[2019-02-22] MEDS: HYDROGEN PEROXIDE 480 ML BOTTLE TP SCH ×2 (09:00→21:13)
[2019-02-22] MEDS: BACI/NEOM/POLY B OINT PKT 1 UDPKT PACKET TP SCH ×6 (09:12→21:14)
[2019-02-22] MEDS: POTASSIUM CHLORIDE 20 MEQ POWDER PACKET GT SCH (09:12)
[2019-02-22] MEDS: CARVEDILOL 6.25 MG TABLET GT SCH ×2 (09:12→21:10)
[2019-02-22] MEDS: FINASTERIDE (5 MG) 5 MG TABLET GT SCH (09:12)
[2019-02-22] MEDS: MINERAL OIL/PETROL OINT 396 GM JAR TP SCH ×2 (09:12→21:13)
[2019-02-22] MEDS: CHLORHEXIDINE GLUCONATE 15 ML UDC MM SCH ×2 (09:12→21:13)
[2019-02-22] MEDS: ACIDOPHILUS/BULGARICUS 1 EACH TAB.CHEW GT SCH (09:12)
[2019-02-22] MEDS: LINAGLIPTIN 5 MG TABLET GT SCH (09:12)
[2019-02-22] MEDS: DORZOLAMIDE OPTH 2% 10 ML BOTTLE EACHEYE SCH ×3 (09:12→17:52)
[2019-02-22] MEDS: ASCORBIC ACID 500 MG TABLET GT SCH (09:12)
[2019-02-22] MEDS: ZINC OXIDE 30 GM TUBE TP SCH ×2 (09:13→21:14)
[2019-02-22] MEDS: Z GUARD REMEDY 4 OZ OINT TP SCH ×2 (09:13→21:14)
[2019-02-22] MEDS: VITS A AND D/WHITE PET/LANOLIN 5 GM PACKET TP SCH ×2 (09:13→21:14)
[2019-02-22] MEDS: LATANOPROST EYE DROP 0.005% 2.5 ML BOTTLE EACHEYE SCH (21:07)
[2019-02-22] MEDS: ATORVASTATIN 10 MG TABLET GT SCH (21:10)
[2019-02-22] MEDS: TAMSULOSIN 0.4 MG CAP.SR.24H PO SCH (21:11)
[2019-02-23] VITALS (7 sets, daily range): BP systolic 114–136; BP diastolic 64–80
[2019-02-23] MEDS: IPRATROPIUM NEB FS 0.5 MG/2.5 ML AMPUL.NEB IH SCH ×4 (01:50→19:51)
[2019-02-23] MEDS: PROSTAT (PYXIS) 30 ML UDC GT SCH ×3 (05:07→21:17)
[2019-02-23] MEDS: FAMOTIDINE (20 MG) 20 MG TABLET GT SCH (05:08)
[2019-02-23] MEDS: REGLAN GT SCH ×4 (05:08→23:54)
[2019-02-23] MEDS: LACOSAMIDE ORAL SOLN 50 MG/5 ML UDC GT SCH ×2 (05:11→17:22)
[2019-02-23] MEDS: SIMETHICONE SUSP 40 MG/0.6 ML BOTTLE GT SCH ×4 (05:12→23:54)
[2019-02-23] MEDS: BLOOD SUGAR DIAGNOSTIC 1 EACH STRIP IN SCH ×4 (05:30→23:54)
[2019-02-23] MEDS: INSULIN REGULAR, HUMAN 100 UNIT/ML 10 ML VIAL SQ SCH ×4 (05:43→23:56)
--- NOTE | 2019-02-23 05:45 | NUR ---
pt left for dialysis this morning in stable condition. AC accucheck BG 224. Administered 4un of insulin per sliding scale.
[2019-02-23] MEDS: HYDROGEN PEROXIDE 480 ML BOTTLE TP SCH ×2 (09:00→21:17)
[2019-02-23] MEDS: LINAGLIPTIN 5 MG TABLET GT SCH (09:00)
[2019-02-23] MEDS: MINERAL OIL/PETROL OINT 396 GM JAR TP SCH ×2 (09:00→21:17)
[2019-02-23] MEDS: CARVEDILOL 6.25 MG TABLET GT SCH ×2 (09:00→21:17)
[2019-02-23] MEDS: POTASSIUM CHLORIDE 20 MEQ POWDER PACKET GT SCH (09:00)
[2019-02-23] MEDS: ASCORBIC ACID 500 MG TABLET GT SCH (09:00)
[2019-02-23] MEDS: BACI/NEOM/POLY B OINT PKT 1 UDPKT PACKET TP SCH ×6 (09:00→21:17)
[2019-02-23] MEDS: DORZOLAMIDE OPTH 2% 10 ML BOTTLE EACHEYE SCH ×3 (09:00→17:20)
[2019-02-23] MEDS: ACIDOPHILUS/BULGARICUS 1 EACH TAB.CHEW GT SCH (09:00)
[2019-02-23] MEDS: FINASTERIDE (5 MG) 5 MG TABLET GT SCH (09:00)
[2019-02-23] MEDS: NEPRO 1,000 ML BOTTLE GT PRN (10:21)
[2019-02-23] MEDS: CHLORHEXIDINE GLUCONATE 15 ML UDC MM SCH ×2 (11:31→21:17)
[2019-02-23] MEDS: ZINC OXIDE 30 GM TUBE TP SCH ×2 (11:51→21:17)
[2019-02-23] MEDS: VITS A AND D/WHITE PET/LANOLIN 5 GM PACKET TP SCH ×2 (11:51→21:17)
[2019-02-23] MEDS: Z GUARD REMEDY 4 OZ OINT TP SCH ×2 (11:51→21:17)
[2019-02-23] MEDS: TAMSULOSIN 0.4 MG CAP.SR.24H PO SCH (21:17)
[2019-02-23] MEDS: ATORVASTATIN 10 MG TABLET GT SCH (21:17)
[2019-02-23] MEDS: LATANOPROST EYE DROP 0.005% 2.5 ML BOTTLE EACHEYE SCH (21:17)
[2019-02-24 01:00] VITALS: BP 125/78
[2019-02-24] MEDS: IPRATROPIUM NEB FS 0.5 MG/2.5 ML AMPUL.NEB IH SCH ×4 (01:34→19:53)
--- NOTE | 2019-02-24 02:56 | NUR ---
RT NOTES TRACH TUBE IN PLACE, PATENT, AND SECURED WITH TRACH TIE. ALARMS ON AND AUDIBLE. PLACED ON VENT WITH ORDERED SETTINGS AT MIDNIGHT PER MD ORDERS. TOLERATE WELL. VENT PLUGGED IN TO RED OUTLET. BACK UP TRACH AND AMBU BAG BY THE BEDSIDE. NO SIGNS OF ANY DISTRESS. Addendum: 02/24/19 at 0257 by JHON PARISH RT Amended: Links added.
[2019-02-24 05:00] VITALS: BP 127/58
[2019-02-24] MEDS: SIMETHICONE SUSP 40 MG/0.6 ML BOTTLE GT SCH ×3 (05:39→17:41)
[2019-02-24] MEDS: PROSTAT (PYXIS) 30 ML UDC GT SCH ×3 (05:39→21:00)
[2019-02-24] MEDS: FAMOTIDINE (20 MG) 20 MG TABLET GT SCH (05:39)
[2019-02-24] MEDS: REGLAN GT SCH ×3 (05:39→17:41)
[2019-02-24] MEDS: BLOOD SUGAR DIAGNOSTIC 1 EACH STRIP IN SCH ×3 (05:40→17:41)
[2019-02-24] MEDS: LACOSAMIDE ORAL SOLN 50 MG/5 ML UDC GT SCH ×2 (05:40→17:41)
[2019-02-24] MEDS: INSULIN REGULAR, HUMAN 100 UNIT/ML 10 ML VIAL SQ SCH ×3 (05:42→17:43)
[2019-02-24] MEDS: NEPRO 1,000 ML BOTTLE GT PRN (05:43)
[2019-02-24 07:24] VITALS: BP 126/67
[2019-02-24] MEDS: HYDROGEN PEROXIDE 480 ML BOTTLE TP SCH ×2 (09:00→21:57)
[2019-02-24] MEDS: DORZOLAMIDE OPTH 2% 10 ML BOTTLE EACHEYE SCH ×3 (09:23→16:56)
[2019-02-24] MEDS: CARVEDILOL 6.25 MG TABLET GT SCH ×2 (09:23→21:00)
[2019-02-24] MEDS: POTASSIUM CHLORIDE 20 MEQ POWDER PACKET GT SCH (09:23)
[2019-02-24] MEDS: FINASTERIDE (5 MG) 5 MG TABLET GT SCH (09:23)
[2019-02-24] MEDS: ACIDOPHILUS/BULGARICUS 1 EACH TAB.CHEW GT SCH (09:23)
[2019-02-24] MEDS: Z GUARD REMEDY 4 OZ OINT TP SCH ×2 (09:24→21:00)
[2019-02-24] MEDS: LINAGLIPTIN 5 MG TABLET GT SCH (09:24)
[2019-02-24] MEDS: ZINC OXIDE 30 GM TUBE TP SCH ×2 (09:24→21:00)
[2019-02-24] MEDS: ASCORBIC ACID 500 MG TABLET GT SCH (09:24)
[2019-02-24] MEDS: MINERAL OIL/PETROL OINT 396 GM JAR TP SCH ×2 (09:24→21:00)
[2019-02-24] MEDS: BACI/NEOM/POLY B OINT PKT 1 UDPKT PACKET TP SCH ×6 (09:24→21:00)
[2019-02-24] MEDS: CHLORHEXIDINE GLUCONATE 15 ML UDC MM SCH ×2 (09:24→21:00)
[2019-02-24] MEDS: VITS A AND D/WHITE PET/LANOLIN 5 GM PACKET TP SCH ×2 (09:24→21:00)
--- NOTE | 2019-02-24 10:30 | NUR ---
Seen and examined by Arlyn Hanks, no new order given.
--- NOTE | 2019-02-24 13:00 | NUR ---
Seen and examined by Dr. Garduno, no new order given.
[2019-02-24 13:06] VITALS: BP 126/67
[2019-02-24 17:44] VITALS: BP 128/65
[2019-02-24 20:39] VITALS: BP 120/72
[2019-02-24] MEDS: LATANOPROST EYE DROP 0.005% 2.5 ML BOTTLE EACHEYE SCH (22:16)
[2019-02-24] MEDS: TAMSULOSIN 0.4 MG CAP.SR.24H PO SCH (22:17)
[2019-02-24] MEDS: ATORVASTATIN 10 MG TABLET GT SCH (22:17)
--- NOTE | 2019-02-24 22:40 | NUR ---
RN NOTES Noted with GT out. Replaced with new GT and placement checked by auscultating with stethoscope, in place. Received new order from Dr. Garduno for KUB to confirm placement. Son, Jose, made aware. Call was appreciated. Will follow up results of KUB.
[2019-02-24] MEDS ORDERED: DIATR MEGLU/DIATRIZOATE SODIUM 30 ML BOTTLE (GASTROGRAPHIN) ONE (22:50)
--- NOTE | 2019-02-24 23:20 | NUR ---
RN NOTES KUB results show GT is in stomach. Feeding resumed as ordered. Son made aware of result.
[2019-02-25] VITALS (8 sets, daily range): BP systolic 118–141; BP diastolic 50–75
[2019-02-25] MEDS: REGLAN GT SCH ×4 (00:31→17:03)
[2019-02-25] MEDS: BLOOD SUGAR DIAGNOSTIC 1 EACH STRIP IN SCH ×4 (00:31→17:24)
[2019-02-25] MEDS: SIMETHICONE SUSP 40 MG/0.6 ML BOTTLE GT SCH ×4 (00:31→17:03)
[2019-02-25] MEDS: INSULIN REGULAR, HUMAN 100 UNIT/ML 10 ML VIAL SQ SCH ×4 (00:34→17:26)
[2019-02-25] MEDS: IPRATROPIUM NEB FS 0.5 MG/2.5 ML AMPUL.NEB IH SCH ×4 (01:30→20:20)
--- NOTE | 2019-02-25 02:08 | NUR ---
RT NOTES TRACH TUBE IN PLACE, PATENT, AND SECURED WITH TRACH TIE. PLACED ON VENT WITH ORDERED SETTINGS AT MIDNIGHT PER MD ORDERS. TOLERATE WELL. ALARMS ON AND AUDIBLE. VENT PLUGGED IN TO RED OUTLET. BACK UP TRACH AND AMBU BAG BY THE BEDSIDE. NO SIGNS OF ANY DISTRESS. WILL CONTINUE TO MONITOR. Addendum: 02/25/19 at 0209 by JHON PARISH RT Amended: Links added.
[2019-02-25] MEDS: FAMOTIDINE (20 MG) 20 MG TABLET GT SCH (05:44)
[2019-02-25] MEDS: PROSTAT (PYXIS) 30 ML UDC GT SCH ×3 (05:44→21:05)
[2019-02-25] MEDS: LACOSAMIDE ORAL SOLN 50 MG/5 ML UDC GT SCH ×2 (05:44→17:03)
[2019-02-25] MEDS: HYDROGEN PEROXIDE 480 ML BOTTLE TP SCH ×2 (09:00→21:06)
[2019-02-25] MEDS: DORZOLAMIDE OPTH 2% 10 ML BOTTLE EACHEYE SCH ×3 (09:38→17:03)
[2019-02-25] MEDS: POTASSIUM CHLORIDE 20 MEQ POWDER PACKET GT SCH (09:40)
[2019-02-25] MEDS: CARVEDILOL 6.25 MG TABLET GT SCH ×2 (09:40→21:05)
[2019-02-25] MEDS: Z GUARD REMEDY 4 OZ OINT TP SCH ×2 (09:41→21:06)
[2019-02-25] MEDS: FINASTERIDE (5 MG) 5 MG TABLET GT SCH (09:41)
[2019-02-25] MEDS: BACI/NEOM/POLY B OINT PKT 1 UDPKT PACKET TP SCH ×6 (09:41→21:06)
[2019-02-25] MEDS: ASCORBIC ACID 500 MG TABLET GT SCH (09:41)
[2019-02-25] MEDS: MINERAL OIL/PETROL OINT 396 GM JAR TP SCH ×2 (09:41→21:06)
[2019-02-25] MEDS: VITS A AND D/WHITE PET/LANOLIN 5 GM PACKET TP SCH ×2 (09:41→21:06)
[2019-02-25] MEDS: CHLORHEXIDINE GLUCONATE 15 ML UDC MM SCH ×2 (09:41→21:05)
[2019-02-25] MEDS: ACIDOPHILUS/BULGARICUS 1 EACH TAB.CHEW GT SCH (09:41)
[2019-02-25] MEDS: ZINC OXIDE 30 GM TUBE TP SCH (09:41)
[2019-02-25] MEDS: LINAGLIPTIN 5 MG TABLET GT SCH (09:41)
--- NOTE | 2019-02-25 13:30 | NUR ---
Notified Dr. Garduno resident's upper extremities are stiff and contracted. New order received for OT eval. Therapist informed.
--- NOTE | 2019-02-25 19:11 | NUR ---
Seen and examined by Nilam Pineda NP. Made aware that Famotidine is not covered by patient's insurance, ordered to change it to Ranitidine 150 mg. Q AM. Order faxed to pharmacy.
[2019-02-25] MEDS: TAMSULOSIN 0.4 MG CAP.SR.24H PO SCH (21:06)
[2019-02-25] MEDS: LATANOPROST EYE DROP 0.005% 2.5 ML BOTTLE EACHEYE SCH (21:06)
[2019-02-25] MEDS: ATORVASTATIN 10 MG TABLET GT SCH (21:06)
[2019-02-26] MEDS: REGLAN GT SCH ×4 (00:16→17:54)
[2019-02-26] MEDS: SIMETHICONE SUSP 40 MG/0.6 ML BOTTLE GT SCH ×4 (00:16→17:54)
[2019-02-26] MEDS: BLOOD SUGAR DIAGNOSTIC 1 EACH STRIP IN SCH ×4 (00:16→17:59)
[2019-02-26] MEDS: INSULIN REGULAR, HUMAN 100 UNIT/ML 10 ML VIAL SQ SCH ×4 (00:18→17:56)
[2019-02-26] MEDS: IPRATROPIUM NEB FS 0.5 MG/2.5 ML AMPUL.NEB IH SCH ×4 (02:20→19:22)
[2019-02-26 03:48] VITALS: BP 130/62
[2019-02-26] MEDS: PROSTAT (PYXIS) 30 ML UDC GT SCH ×3 (05:08→20:57)
[2019-02-26] MEDS: LACOSAMIDE ORAL SOLN 50 MG/5 ML UDC GT SCH ×2 (05:12→17:54)
[2019-02-26 05:48] VITALS: BP 115/67
[2019-02-26] MEDS ORDERED: RANITIDINE 150 MG GT SCH (06:00)
[2019-02-26] MEDS: ACIDOPHILUS/BULGARICUS 1 EACH TAB.CHEW GT SCH (09:00)
[2019-02-26] MEDS: POTASSIUM CHLORIDE 20 MEQ POWDER PACKET GT SCH (09:00)
[2019-02-26] MEDS: CHLORHEXIDINE GLUCONATE 15 ML UDC MM SCH ×2 (09:00→20:58)
[2019-02-26] MEDS: LINAGLIPTIN 5 MG TABLET GT SCH (09:00)
[2019-02-26] MEDS: FINASTERIDE (5 MG) 5 MG TABLET GT SCH (09:00)
[2019-02-26] MEDS: ASCORBIC ACID 500 MG TABLET GT SCH (09:00)
[2019-02-26] MEDS: CARVEDILOL 6.25 MG TABLET GT SCH ×2 (09:00→20:57)
[2019-02-26] MEDS: DORZOLAMIDE OPTH 2% 10 ML BOTTLE EACHEYE SCH ×3 (09:00→16:48)
[2019-02-26] MEDS: Z GUARD REMEDY 4 OZ OINT TP SCH ×2 (11:00→20:59)
[2019-02-26] MEDS: MINERAL OIL/PETROL OINT 396 GM JAR TP SCH ×2 (11:00→20:58)
[2019-02-26] MEDS: VITS A AND D/WHITE PET/LANOLIN 5 GM PACKET TP SCH ×2 (11:00→20:59)
[2019-02-26] MEDS: BACI/NEOM/POLY B OINT PKT 1 UDPKT PACKET TP SCH ×6 (11:00→20:59)
[2019-02-26] MEDS: NEPRO 1,000 ML BOTTLE GT PRN (12:39)
--- NOTE | 2019-02-26 13:50 | NUR ---
Informed Dr Newman that Ranitidine and Famotidine are not covered by pt's insurance. He ordered to give Omeprazole 20 mg GT daily.
[2019-02-26] MEDS: HYDROGEN PEROXIDE 480 ML BOTTLE TP SCH ×2 (14:06→21:43)
[2019-02-26 15:24] VITALS: BP 115/67
[2019-02-26 17:30] VITALS: BP 107/50
[2019-02-26 20:03] VITALS: BP 134/61
[2019-02-26] MEDS: TAMSULOSIN 0.4 MG CAP.SR.24H PO SCH (21:19)
[2019-02-26] MEDS: ATORVASTATIN 10 MG TABLET GT SCH (21:19)
[2019-02-26] MEDS: LATANOPROST EYE DROP 0.005% 2.5 ML BOTTLE EACHEYE SCH (21:19)
[2019-02-26 21:29] VITALS: BP 134/61
[2019-02-27 00:18] VITALS: BP 118/56
[2019-02-27] MEDS: REGLAN GT SCH ×5 (00:22→23:28)
[2019-02-27] MEDS: BLOOD SUGAR DIAGNOSTIC 1 EACH STRIP IN SCH ×5 (00:22→23:28)
[2019-02-27] MEDS: SIMETHICONE SUSP 40 MG/0.6 ML BOTTLE GT SCH ×5 (00:22→23:28)
[2019-02-27] MEDS: INSULIN REGULAR, HUMAN 100 UNIT/ML 10 ML VIAL SQ SCH ×5 (00:23→23:30)
[2019-02-27 01:00] VITALS: BP 118/56
[2019-02-27] MEDS: IPRATROPIUM NEB FS 0.5 MG/2.5 ML AMPUL.NEB IH SCH ×4 (01:39→19:25)
[2019-02-27 05:40] VITALS: BP 127/61
[2019-02-27] MEDS: PROSTAT (PYXIS) 30 ML UDC GT SCH ×3 (05:43→21:42)
[2019-02-27] MEDS: LACOSAMIDE ORAL SOLN 50 MG/5 ML UDC GT SCH ×2 (05:45→18:07)
[2019-02-27] MEDS: OMEPRAZOLE 20 MG CAPSULE.DR GT SCH (05:45)
[2019-02-27] MEDS: NEPRO 1,000 ML BOTTLE GT PRN ×2 (05:47→23:00)
[2019-02-27] MEDS: HYDROGEN PEROXIDE 480 ML BOTTLE TP SCH ×2 (07:41→21:15)
[2019-02-27 07:55] VITALS: BP 123/64
[2019-02-27 09:00] VITALS: BP 123/64
[2019-02-27] MEDS: LINAGLIPTIN 5 MG TABLET GT SCH (09:00)
[2019-02-27] MEDS: ASCORBIC ACID 500 MG TABLET GT SCH (09:00)
[2019-02-27] MEDS: VITS A AND D/WHITE PET/LANOLIN 5 GM PACKET TP SCH ×2 (09:00→21:43)
[2019-02-27] MEDS: CHLORHEXIDINE GLUCONATE 15 ML UDC MM SCH ×2 (09:00→21:42)
[2019-02-27] MEDS: CARVEDILOL 6.25 MG TABLET GT SCH ×2 (09:00→21:00)
[2019-02-27] MEDS: MINERAL OIL/PETROL OINT 396 GM JAR TP SCH ×2 (09:00→21:42)
[2019-02-27] MEDS: Z GUARD REMEDY 4 OZ OINT TP SCH ×2 (09:00→21:43)
[2019-02-27] MEDS: DORZOLAMIDE OPTH 2% 10 ML BOTTLE EACHEYE SCH ×3 (09:00→16:07)
[2019-02-27] MEDS: POTASSIUM CHLORIDE 20 MEQ POWDER PACKET GT SCH (09:00)
[2019-02-27] MEDS: ACIDOPHILUS/BULGARICUS 1 EACH TAB.CHEW GT SCH (09:00)
[2019-02-27] MEDS: BACI/NEOM/POLY B OINT PKT 1 UDPKT PACKET TP SCH ×6 (09:00→21:43)
[2019-02-27] MEDS: FINASTERIDE (5 MG) 5 MG TABLET GT SCH (09:00)
[2019-02-27] MEDS: ACETAMINOPHEN 650 MG/20.3 ML UDC GT PRN (11:05)
--- NOTE | 2019-02-27 16:00 | NUR ---
AIR CONDITIONING INSTALLER SUPERVISOR Arlyn Hanks and ROSEMARIE Allen made aware during their round of patient's skin condition. It was noted that patient develop open skin very often and does not heal immediately. According to ROSEMARIE Allen, she will refer it to Dr. Randy Nam. Resident with new open skin in the scrotal area and GT stoma. Local treatment initiated.
--- NOTE | 2019-02-27 17:47 | NUR ---
RT NOTE: RECEIVED PT ON 28% COOL AEROSOL. NO RESPIRATORY DISTRESS NOTED. TRACH CHECKED SECURE AND PATENT. SXD AND LAVAGED PT Q ROUND AND NEEDED. TXS GIVEN ORDERED WITH NO ADVERSE REACTIONS NOTED. TRACH CARE DONE. EMERGENCY EQUIPMENT @ BEDSIDE. VENT @ BEDSIDE. Addendum: 02/27/19 at 1748 by NILESH NUNO RT Amended: Links added.
[2019-02-27 20:10] VITALS: BP 129/55
[2019-02-27] MEDS: TAMSULOSIN 0.4 MG CAP.SR.24H PO SCH (21:43)
[2019-02-27] MEDS: LATANOPROST EYE DROP 0.005% 2.5 ML BOTTLE EACHEYE SCH (21:43)
[2019-02-27] MEDS: ATORVASTATIN 10 MG TABLET GT SCH (21:43)
[2019-02-28] VITALS (9 sets, daily range): BP systolic 106–146; BP diastolic 45–66
[2019-02-28] MEDS: IPRATROPIUM NEB FS 0.5 MG/2.5 ML AMPUL.NEB IH SCH ×4 (01:23→19:12)
--- NOTE | 2019-02-28 03:08 | NUR ---
RT NOTE PT RECEIVED COOL AEROSOL 28% 5L, THEN PLACED ON MECH VENT AT MIDNIGHT. PT SX'D, MOD THICK WHITE SECRETIONS NOTED. NO RESP DISTRESS NOTED AT THIS TIME. VENT IS PLUGGED INTO RED OUTLET AND ALARMS ARE ON AND AUDIBLE. MEDS ARE NOT AVAILABLE, BUT THEY ARE ORDERED. TRACH CARE IS DONE. AMBU BAG AND SPARE TRACH ARE AT BEDSIDE. WILL CONT TO MONITOR PT THROUGH OUT THE NIGHT.
[2019-02-28] MEDS: LACOSAMIDE ORAL SOLN 50 MG/5 ML UDC GT SCH ×2 (05:11→17:31)
[2019-02-28] MEDS: REGLAN GT SCH ×4 (05:11→23:36)
[2019-02-28] MEDS: SIMETHICONE SUSP 40 MG/0.6 ML BOTTLE GT SCH ×4 (05:11→23:36)
[2019-02-28] MEDS: OMEPRAZOLE 20 MG CAPSULE.DR GT SCH (05:11)
[2019-02-28] MEDS: PROSTAT (PYXIS) 30 ML UDC GT SCH ×3 (05:11→21:17)
[2019-02-28] MEDS: BLOOD SUGAR DIAGNOSTIC 1 EACH STRIP IN SCH ×4 (05:20→23:52)
[2019-02-28] MEDS: INSULIN REGULAR, HUMAN 100 UNIT/ML 10 ML VIAL SQ SCH ×4 (05:22→23:54)
--- NOTE | 2019-02-28 05:50 | NUR ---
Resident went out for dialysis at [facility] per [facility]. Awake. vital signs stable. Appears comfortable. Trach intact and secured. on aerosol at 28% fio2. tolerating well, no s/s of resp distress. All emergency equipment taken. Jeremiah cath on left chest intact, with dry dressing.
[2019-02-28] MEDS: CHLORHEXIDINE GLUCONATE 15 ML UDC MM SCH ×2 (09:00→21:17)
[2019-02-28] MEDS: HYDROGEN PEROXIDE 480 ML BOTTLE TP SCH ×2 (09:00→20:08)
[2019-02-28] MEDS: DORZOLAMIDE OPTH 2% 10 ML BOTTLE EACHEYE SCH ×3 (10:15→17:31)
[2019-02-28] MEDS: ACIDOPHILUS/BULGARICUS 1 EACH TAB.CHEW GT SCH (10:15)
[2019-02-28] MEDS: VITS A AND D/WHITE PET/LANOLIN 5 GM PACKET TP SCH ×2 (10:15→21:19)
[2019-02-28] MEDS: CARVEDILOL 6.25 MG TABLET GT SCH ×2 (10:15→21:00)
[2019-02-28] MEDS: POTASSIUM CHLORIDE 20 MEQ POWDER PACKET GT SCH (10:15)
[2019-02-28] MEDS: BACI/NEOM/POLY B OINT PKT 1 UDPKT PACKET TP SCH ×10 (10:15→21:18)
[2019-02-28] MEDS: ASCORBIC ACID 500 MG TABLET GT SCH (10:15)
[2019-02-28] MEDS: MINERAL OIL/PETROL OINT 396 GM JAR TP SCH ×2 (10:15→21:17)
[2019-02-28] MEDS: Z GUARD REMEDY 4 OZ OINT TP SCH ×2 (10:15→21:19)
[2019-02-28] MEDS: FINASTERIDE (5 MG) 5 MG TABLET GT SCH (10:15)
[2019-02-28] MEDS: LINAGLIPTIN 5 MG TABLET GT SCH (10:15)
[2019-02-28] MEDS: TAMSULOSIN 0.4 MG CAP.SR.24H PO SCH (21:19)
[2019-02-28] MEDS: ATORVASTATIN 10 MG TABLET GT SCH (21:19)
[2019-02-28] MEDS: LATANOPROST EYE DROP 0.005% 2.5 ML BOTTLE EACHEYE SCH (21:19)
[2019-03-01] VITALS (8 sets, daily range): BP systolic 117–126; BP diastolic 52–62
[2019-03-01] MEDS: IPRATROPIUM NEB FS 0.5 MG/2.5 ML AMPUL.NEB IH SCH ×4 (00:35→19:49)
[2019-03-01] MEDS: NEPRO 1,000 ML BOTTLE GT PRN ×2 (01:30→23:30)
[2019-03-01] MEDS: REGLAN GT SCH ×3 (05:51→17:54)
[2019-03-01] MEDS: LACOSAMIDE ORAL SOLN 50 MG/5 ML UDC GT SCH ×2 (05:51→17:54)
[2019-03-01] MEDS: OMEPRAZOLE 20 MG CAPSULE.DR GT SCH (05:51)
[2019-03-01] MEDS: SIMETHICONE SUSP 40 MG/0.6 ML BOTTLE GT SCH ×3 (05:51→17:54)
[2019-03-01] MEDS: BLOOD SUGAR DIAGNOSTIC 1 EACH STRIP IN SCH ×4 (05:51→23:58)
[2019-03-01] MEDS: PROSTAT (PYXIS) 30 ML UDC GT SCH ×3 (05:51→21:44)
[2019-03-01] MEDS: INSULIN REGULAR, HUMAN 100 UNIT/ML 10 ML VIAL SQ SCH ×4 (05:52→23:57)
[2019-03-01] MEDS: HYDROGEN PEROXIDE 480 ML BOTTLE TP SCH ×2 (09:00→21:44)
[2019-03-01] MEDS: POTASSIUM CHLORIDE 20 MEQ POWDER PACKET GT SCH (09:53)
[2019-03-01] MEDS: ACIDOPHILUS/BULGARICUS 1 EACH TAB.CHEW GT SCH (09:53)
[2019-03-01] MEDS: CARVEDILOL 6.25 MG TABLET GT SCH ×2 (09:53→21:44)
[2019-03-01] MEDS: FINASTERIDE (5 MG) 5 MG TABLET GT SCH (09:54)
[2019-03-01] MEDS: VITS A AND D/WHITE PET/LANOLIN 5 GM PACKET TP SCH ×2 (09:54→21:44)
[2019-03-01] MEDS: LINAGLIPTIN 5 MG TABLET GT SCH (09:54)
[2019-03-01] MEDS: MINERAL OIL/PETROL OINT 396 GM JAR TP SCH ×2 (09:54→21:44)
[2019-03-01] MEDS: CHLORHEXIDINE GLUCONATE 15 ML UDC MM SCH ×2 (09:54→21:44)
[2019-03-01] MEDS: Z GUARD REMEDY 4 OZ OINT TP SCH ×2 (09:54→21:44)
[2019-03-01] MEDS: BACI/NEOM/POLY B OINT PKT 1 UDPKT PACKET TP SCH ×10 (09:54→21:44)
[2019-03-01] MEDS: ASCORBIC ACID 500 MG TABLET GT SCH (09:54)
[2019-03-01] MEDS: DORZOLAMIDE OPTH 2% 10 ML BOTTLE EACHEYE SCH ×3 (09:55→17:54)
[2019-03-01] MEDS: ATORVASTATIN 10 MG TABLET GT SCH (21:44)
[2019-03-01] MEDS: TAMSULOSIN 0.4 MG CAP.SR.24H PO SCH (21:44)
[2019-03-01] MEDS: LATANOPROST EYE DROP 0.005% 2.5 ML BOTTLE EACHEYE SCH (21:44)
[2019-03-02] VITALS (7 sets, daily range): BP systolic 106–138; BP diastolic 58–82
[2019-03-02] MEDS: REGLAN GT SCH ×5 (00:21→23:53)
[2019-03-02] MEDS: SIMETHICONE SUSP 40 MG/0.6 ML BOTTLE GT SCH ×5 (00:21→23:53)
[2019-03-02] MEDS: IPRATROPIUM NEB FS 0.5 MG/2.5 ML AMPUL.NEB IH SCH ×4 (01:37→19:46)
[2019-03-02] MEDS: OMEPRAZOLE 20 MG CAPSULE.DR GT SCH (05:16)
[2019-03-02] MEDS: PROSTAT (PYXIS) 30 ML UDC GT SCH ×3 (05:16→21:30)
[2019-03-02] MEDS: LACOSAMIDE ORAL SOLN 50 MG/5 ML UDC GT SCH ×2 (05:16→17:31)
[2019-03-02] MEDS: INSULIN REGULAR, HUMAN 100 UNIT/ML 10 ML VIAL SQ SCH ×4 (05:36→23:54)
[2019-03-02] MEDS: BLOOD SUGAR DIAGNOSTIC 1 EACH STRIP IN SCH ×4 (05:36→23:53)
[2019-03-02] MEDS: HYDROGEN PEROXIDE 480 ML BOTTLE TP SCH ×2 (09:03→21:30)
[2019-03-02] MEDS: FINASTERIDE (5 MG) 5 MG TABLET GT SCH (11:00)
[2019-03-02] MEDS: VITS A AND D/WHITE PET/LANOLIN 5 GM PACKET TP SCH ×2 (11:00→21:31)
[2019-03-02] MEDS: POTASSIUM CHLORIDE 20 MEQ POWDER PACKET GT SCH (11:00)
[2019-03-02] MEDS: Z GUARD REMEDY 4 OZ OINT TP SCH ×2 (11:00→21:31)
[2019-03-02] MEDS: CHLORHEXIDINE GLUCONATE 15 ML UDC MM SCH ×2 (11:00→21:30)
[2019-03-02] MEDS: CARVEDILOL 6.25 MG TABLET GT SCH ×2 (11:00→21:00)
[2019-03-02] MEDS: BACI/NEOM/POLY B OINT PKT 1 UDPKT PACKET TP SCH ×10 (11:00→21:31)
[2019-03-02] MEDS: LINAGLIPTIN 5 MG TABLET GT SCH (11:00)
[2019-03-02] MEDS: ACIDOPHILUS/BULGARICUS 1 EACH TAB.CHEW GT SCH (11:00)
[2019-03-02] MEDS: ASCORBIC ACID 500 MG TABLET GT SCH (11:00)
[2019-03-02] MEDS: DORZOLAMIDE OPTH 2% 10 ML BOTTLE EACHEYE SCH ×3 (11:00→17:31)
[2019-03-02] MEDS: MINERAL OIL/PETROL OINT 396 GM JAR TP SCH ×2 (11:00→21:30)
[2019-03-02] MEDS: TAMSULOSIN 0.4 MG CAP.SR.24H PO SCH (21:31)
[2019-03-02] MEDS: LATANOPROST EYE DROP 0.005% 2.5 ML BOTTLE EACHEYE SCH (21:31)
[2019-03-02] MEDS: ATORVASTATIN 10 MG TABLET GT SCH (21:31)
[2019-03-03] VITALS (8 sets, daily range): BP systolic 92–145; BP diastolic 63–79
[2019-03-03] MEDS: IPRATROPIUM NEB FS 0.5 MG/2.5 ML AMPUL.NEB IH SCH ×4 (01:32→19:29)
--- NOTE | 2019-03-03 04:59 | NUR ---
PT REC'D TRACHED ON COOL AEROSOL, PT PLACED ON MECH VENT ON CPAP MODE @ 0007 PER MD ORDERS, NO RESP DISTRESS OR SOB NOTED. PT AWAKE AND ALERT. TRACH PATENT AND SECURED. PT SX'D FOR THICK MOD AMT OF PALE YELLOW SECRETIONS. ALARMS ARE SET AND AUDIBLE. VENT PLUGGED INTO RED OUTLET. AMBU BAG BEDSIDE. Addendum: 03/03/19 at 0500 by PAUL ALMARAZ RT Amended: Links added.
--- NOTE | 2019-03-03 05:23 | NUR ---
pt taken off [facility] vent and plcaed on cool aerosol per md orders. Addendum: 03/03/19 at 0523 by PAUL ALMARAZ RT Amended: Links added.
[2019-03-03] MEDS: REGLAN GT SCH ×4 (05:38→23:40)
[2019-03-03] MEDS: PROSTAT (PYXIS) 30 ML UDC GT SCH ×3 (05:38→21:35)
[2019-03-03] MEDS: INSULIN REGULAR, HUMAN 100 UNIT/ML 10 ML VIAL SQ SCH ×3 (05:39→17:28)
[2019-03-03] MEDS: OMEPRAZOLE 20 MG CAPSULE.DR GT SCH (05:39)
[2019-03-03] MEDS: BLOOD SUGAR DIAGNOSTIC 1 EACH STRIP IN SCH ×3 (05:39→17:26)
[2019-03-03] MEDS: LACOSAMIDE ORAL SOLN 50 MG/5 ML UDC GT SCH ×2 (05:39→17:26)
[2019-03-03] MEDS: SIMETHICONE SUSP 40 MG/0.6 ML BOTTLE GT SCH ×4 (05:39→23:40)
[2019-03-03] MEDS: NEPRO 1,000 ML BOTTLE GT PRN (06:02)
[2019-03-03] MEDS: DORZOLAMIDE OPTH 2% 10 ML BOTTLE EACHEYE SCH ×3 (09:00→17:26)
[2019-03-03] MEDS: HYDROGEN PEROXIDE 480 ML BOTTLE TP SCH ×2 (09:00→21:25)
[2019-03-03] MEDS: LINAGLIPTIN 5 MG TABLET GT SCH (09:58)
[2019-03-03] MEDS: VITS A AND D/WHITE PET/LANOLIN 5 GM PACKET TP SCH ×2 (09:58→21:26)
[2019-03-03] MEDS: MINERAL OIL/PETROL OINT 396 GM JAR TP SCH ×2 (09:58→21:25)
[2019-03-03] MEDS: BACI/NEOM/POLY B OINT PKT 1 UDPKT PACKET TP SCH ×10 (09:58→21:25)
[2019-03-03] MEDS: ASCORBIC ACID 500 MG TABLET GT SCH (09:58)
[2019-03-03] MEDS: CARVEDILOL 6.25 MG TABLET GT SCH ×2 (09:58→21:25)
[2019-03-03] MEDS: ACIDOPHILUS/BULGARICUS 1 EACH TAB.CHEW GT SCH (09:58)
[2019-03-03] MEDS: Z GUARD REMEDY 4 OZ OINT TP SCH ×2 (09:58→21:26)
[2019-03-03] MEDS: POTASSIUM CHLORIDE 20 MEQ POWDER PACKET GT SCH (09:58)
[2019-03-03] MEDS: FINASTERIDE (5 MG) 5 MG TABLET GT SCH (09:58)
[2019-03-03] MEDS: CHLORHEXIDINE GLUCONATE 15 ML UDC MM SCH ×2 (09:58→21:25)
[2019-03-03] MEDS: LATANOPROST EYE DROP 0.005% 2.5 ML BOTTLE EACHEYE SCH (21:26)
[2019-03-03] MEDS: TAMSULOSIN 0.4 MG CAP.SR.24H PO SCH (21:35)
[2019-03-03] MEDS: ATORVASTATIN 10 MG TABLET GT SCH (21:35)
[2019-03-04] VITALS (8 sets, daily range): BP systolic 122–157; BP diastolic 60–75
[2019-03-04] MEDS: INSULIN REGULAR, HUMAN 100 UNIT/ML 10 ML VIAL SQ SCH ×5 (00:02→23:49)
[2019-03-04] MEDS: IPRATROPIUM NEB FS 0.5 MG/2.5 ML AMPUL.NEB IH SCH ×4 (00:53→19:10)
[2019-03-04] MEDS: PROSTAT (PYXIS) 30 ML UDC GT SCH ×3 (05:28→21:28)
[2019-03-04] MEDS: OMEPRAZOLE 20 MG CAPSULE.DR GT SCH (06:23)
[2019-03-04] MEDS: SIMETHICONE SUSP 40 MG/0.6 ML BOTTLE GT SCH ×4 (06:23→23:48)
[2019-03-04] MEDS: REGLAN GT SCH ×4 (06:23→23:48)
[2019-03-04] MEDS: BLOOD SUGAR DIAGNOSTIC 1 EACH STRIP IN SCH ×5 (06:24→23:49)
[2019-03-04] MEDS: LACOSAMIDE ORAL SOLN 50 MG/5 ML UDC GT SCH ×2 (06:24→17:26)
[2019-03-04] MEDS: CARVEDILOL 6.25 MG TABLET GT SCH ×2 (08:42→21:28)
[2019-03-04] MEDS: DORZOLAMIDE OPTH 2% 10 ML BOTTLE EACHEYE SCH ×3 (08:42→17:26)
[2019-03-04] MEDS: LINAGLIPTIN 5 MG TABLET GT SCH (08:43)
[2019-03-04] MEDS: ACIDOPHILUS/BULGARICUS 1 EACH TAB.CHEW GT SCH (08:43)
[2019-03-04] MEDS: FINASTERIDE (5 MG) 5 MG TABLET GT SCH (08:43)
[2019-03-04] MEDS: POTASSIUM CHLORIDE 20 MEQ POWDER PACKET GT SCH (08:43)
[2019-03-04] MEDS: CHLORHEXIDINE GLUCONATE 15 ML UDC MM SCH ×2 (08:44→21:28)
[2019-03-04] MEDS: ASCORBIC ACID 500 MG TABLET GT SCH (08:44)
[2019-03-04] MEDS: HYDROGEN PEROXIDE 480 ML BOTTLE TP SCH ×2 (09:00→21:01)
[2019-03-04] MEDS: BACI/NEOM/POLY B OINT PKT 1 UDPKT PACKET TP SCH ×10 (09:00→21:29)
[2019-03-04] MEDS: VITS A AND D/WHITE PET/LANOLIN 5 GM PACKET TP SCH ×2 (09:00→21:29)
[2019-03-04] MEDS: Z GUARD REMEDY 4 OZ OINT TP SCH ×2 (09:00→21:29)
[2019-03-04] MEDS: MINERAL OIL/PETROL OINT 396 GM JAR TP SCH ×2 (09:00→21:28)
--- NOTE | 2019-03-04 17:32 | NUR ---
RT NOTE PT REMAINS MECHANICALLY VENTILATED VIA CUFFED TRACHEOSTOMY TUBE. CUFF INFLATED. TRACH TUBE MIDLINE AND SECURE. VENTILATOR SETTINGS PRESCRIBED. ALARMS SET PER PROTOCOL AND AUDIBLE. VENT PLUGGED IN TO RED OUTLET. AMBU BAG AND BACK UP TRACH AT BED SIDE. NO DISTRESS NOTED. Addendum: 03/04/19 at 1732 by CARINA SUAREZ RT Amended: Links added.
--- NOTE | 2019-03-04 20:00 | NUR ---
RN NOTES Seen by Nilam Pineda NP, with no new orders.
[2019-03-04] MEDS: LATANOPROST EYE DROP 0.005% 2.5 ML BOTTLE EACHEYE SCH (21:29)
[2019-03-04] MEDS: ATORVASTATIN 10 MG TABLET GT SCH (21:29)
[2019-03-04] MEDS: TAMSULOSIN 0.4 MG CAP.SR.24H PO SCH (21:30)
[2019-03-05] VITALS (8 sets, daily range): BP systolic 83–133; BP diastolic 49–70
[2019-03-05] MEDS: IPRATROPIUM NEB FS 0.5 MG/2.5 ML AMPUL.NEB IH SCH ×4 (01:21→19:50)
[2019-03-05] MEDS: SIMETHICONE SUSP 40 MG/0.6 ML BOTTLE GT SCH ×3 (05:10→17:18)
[2019-03-05] MEDS: OMEPRAZOLE 20 MG CAPSULE.DR GT SCH (05:10)
[2019-03-05] MEDS: PROSTAT (PYXIS) 30 ML UDC GT SCH ×3 (05:10→21:28)
[2019-03-05] MEDS: REGLAN GT SCH ×3 (05:10→17:17)
[2019-03-05] MEDS: LACOSAMIDE ORAL SOLN 50 MG/5 ML UDC GT SCH ×2 (05:12→17:19)
[2019-03-05] MEDS: BLOOD SUGAR DIAGNOSTIC 1 EACH STRIP IN SCH ×3 (05:13→17:20)
[2019-03-05] MEDS: INSULIN REGULAR, HUMAN 100 UNIT/ML 10 ML VIAL SQ SCH ×3 (05:13→17:29)
--- NOTE | 2019-03-05 07:30 | NUR ---
RN NOTES-- PER REPORT, PATIENT LEFT FOR DIALYSIS AT 0500.
[2019-03-05] MEDS: FINASTERIDE (5 MG) 5 MG TABLET GT SCH (09:00)
[2019-03-05] MEDS: POTASSIUM CHLORIDE 20 MEQ POWDER PACKET GT SCH (09:00)
[2019-03-05] MEDS: HYDROGEN PEROXIDE 480 ML BOTTLE TP SCH ×2 (09:00→10:05)
[2019-03-05] MEDS: ASCORBIC ACID 500 MG TABLET GT SCH (09:00)
[2019-03-05] MEDS: MINERAL OIL/PETROL OINT 396 GM JAR TP SCH ×2 (09:00→21:28)
[2019-03-05] MEDS: CARVEDILOL 6.25 MG TABLET GT SCH ×2 (09:00→21:00)
[2019-03-05] MEDS: BACI/NEOM/POLY B OINT PKT 1 UDPKT PACKET TP SCH ×10 (09:00→21:29)
[2019-03-05] MEDS: Z GUARD REMEDY 4 OZ OINT TP SCH ×2 (09:00→21:29)
[2019-03-05] MEDS: ACIDOPHILUS/BULGARICUS 1 EACH TAB.CHEW GT SCH (09:00)
[2019-03-05] MEDS: DORZOLAMIDE OPTH 2% 10 ML BOTTLE EACHEYE SCH ×3 (09:00→17:17)
[2019-03-05] MEDS: LINAGLIPTIN 5 MG TABLET GT SCH (09:00)
[2019-03-05] MEDS: VITS A AND D/WHITE PET/LANOLIN 5 GM PACKET TP SCH ×2 (09:00→21:29)
[2019-03-05] MEDS: CHLORHEXIDINE GLUCONATE 15 ML UDC MM SCH ×2 (09:00→21:28)
--- NOTE | 2019-03-05 09:41 | NUR ---
RN NOTES-- PT NOT IN ROOM. PT CURRENTLY AT DIALYSIS.
--- NOTE | 2019-03-05 10:20 | NUR ---
RN NOTES-- PT CAME BACK FROM DIALYSIS IN STABLE CONDITION VIA GURNEY. NO SKIN INJURIES NOTED. VITAL SIGNS WNL. L CHEST DIALYSIS SITE INTACT. DRESSING KEPT CLEAN AND DRY. WILL MONITOR THROUGHOUT SHIFT FOR CONTINUITY OF CARE.
[2019-03-05] MEDS: LATANOPROST EYE DROP 0.005% 2.5 ML BOTTLE EACHEYE SCH (21:29)
[2019-03-05] MEDS: ATORVASTATIN 10 MG TABLET GT SCH (21:29)
[2019-03-05] MEDS: TAMSULOSIN 0.4 MG CAP.SR.24H PO SCH (21:29)
[2019-03-06] VITALS (8 sets, daily range): BP systolic 109–141; BP diastolic 52–84
[2019-03-06] MEDS: REGLAN GT SCH ×4 (00:33→17:44)
[2019-03-06] MEDS: SIMETHICONE SUSP 40 MG/0.6 ML BOTTLE GT SCH ×4 (00:33→17:44)
[2019-03-06] MEDS: BLOOD SUGAR DIAGNOSTIC 1 EACH STRIP IN SCH ×4 (00:34→17:44)
[2019-03-06] MEDS: INSULIN REGULAR, HUMAN 100 UNIT/ML 10 ML VIAL SQ SCH ×4 (00:35→17:58)
[2019-03-06] MEDS: IPRATROPIUM NEB FS 0.5 MG/2.5 ML AMPUL.NEB IH SCH ×4 (01:18→20:25)
[2019-03-06] MEDS: PROSTAT (PYXIS) 30 ML UDC GT SCH ×3 (05:00→21:47)
[2019-03-06] MEDS: OMEPRAZOLE 20 MG CAPSULE.DR GT SCH (06:15)
[2019-03-06] MEDS: LACOSAMIDE ORAL SOLN 50 MG/5 ML UDC GT SCH ×2 (06:15→17:44)
[2019-03-06] MEDS: Z GUARD REMEDY 4 OZ OINT TP SCH ×2 (09:00→21:47)
[2019-03-06] MEDS: BACI/NEOM/POLY B OINT PKT 1 UDPKT PACKET TP SCH ×8 (09:00→21:47)
[2019-03-06] MEDS: VITS A AND D/WHITE PET/LANOLIN 5 GM PACKET TP SCH ×2 (09:00→21:47)
[2019-03-06] MEDS: CARVEDILOL 6.25 MG TABLET GT SCH ×2 (09:00→21:00)
[2019-03-06] MEDS: DORZOLAMIDE OPTH 2% 10 ML BOTTLE EACHEYE SCH ×3 (09:05→17:44)
[2019-03-06] MEDS: FINASTERIDE (5 MG) 5 MG TABLET GT SCH (09:06)
[2019-03-06] MEDS: ASCORBIC ACID 500 MG TABLET GT SCH (09:06)
[2019-03-06] MEDS: ACIDOPHILUS/BULGARICUS 1 EACH TAB.CHEW GT SCH (09:06)
[2019-03-06] MEDS: MINERAL OIL/PETROL OINT 396 GM JAR TP SCH ×2 (09:06→21:47)
[2019-03-06] MEDS: LINAGLIPTIN 5 MG TABLET GT SCH (09:06)
[2019-03-06] MEDS: POTASSIUM CHLORIDE 20 MEQ POWDER PACKET GT SCH (09:06)
[2019-03-06] MEDS: CHLORHEXIDINE GLUCONATE 15 ML UDC MM SCH ×2 (09:06→21:47)
[2019-03-06] MEDS: HYDROGEN PEROXIDE 480 ML BOTTLE TP SCH ×2 (09:31→21:47)
[2019-03-06] MEDS: NEPRO 1,000 ML BOTTLE GT PRN (10:26)
--- NOTE | 2019-03-06 14:03 | NUR ---
ROSEMARIE Allen made aware that patient's skin has multiple open wounds which appears to start as close blister. She saw wound photo taken today. According to ROSEMARIE Du, she will inform Dr. Padilla.
--- NOTE | 2019-03-06 20:35 | NUR ---
PT RCVD TRACH ON COOL AEROSOL 28% 5L. BREATHING TX GIVEN AND NO ADVERSE REACTION NOTED. SUCTIONED MODERATE AMOUNT OF YELLOW/WHITE THICK SECRETIONS. NO RESPIRATORY DISTRESS NOTED AT THIS TIME. AMBU BAG AT BEDSIDE. WILL CONTINUE TO MONITOR.
[2019-03-06] MEDS: LATANOPROST EYE DROP 0.005% 2.5 ML BOTTLE EACHEYE SCH (21:47)
[2019-03-06] MEDS: ATORVASTATIN 10 MG TABLET GT SCH (21:47)
[2019-03-06] MEDS: TAMSULOSIN 0.4 MG CAP.SR.24H PO SCH (21:48)
[2019-03-07] VITALS (7 sets, daily range): BP systolic 101–144; BP diastolic 62–70
[2019-03-07] MEDS: BLOOD SUGAR DIAGNOSTIC 1 EACH STRIP IN SCH ×4 (00:07→18:48)
[2019-03-07] MEDS: REGLAN GT SCH ×4 (00:07→18:48)
[2019-03-07] MEDS: SIMETHICONE SUSP 40 MG/0.6 ML BOTTLE GT SCH ×4 (00:07→18:48)
[2019-03-07] MEDS: INSULIN REGULAR, HUMAN 100 UNIT/ML 10 ML VIAL SQ SCH ×4 (00:09→18:49)
[2019-03-07] MEDS: IPRATROPIUM NEB FS 0.5 MG/2.5 ML AMPUL.NEB IH SCH ×4 (01:33→19:52)
[2019-03-07] MEDS: LACOSAMIDE ORAL SOLN 50 MG/5 ML UDC GT SCH ×2 (05:27→18:48)
[2019-03-07] MEDS: OMEPRAZOLE 20 MG CAPSULE.DR GT SCH (05:27)
[2019-03-07] MEDS: PROSTAT (PYXIS) 30 ML UDC GT SCH ×3 (05:27→21:44)
[2019-03-07] MEDS: BACI/NEOM/POLY B OINT PKT 1 UDPKT PACKET TP SCH ×4 (11:15→21:45)
[2019-03-07] MEDS: VITS A AND D/WHITE PET/LANOLIN 5 GM PACKET TP SCH ×2 (11:15→21:45)
[2019-03-07] MEDS: CHLORHEXIDINE GLUCONATE 15 ML UDC MM SCH ×2 (11:15→21:44)
[2019-03-07] MEDS: POTASSIUM CHLORIDE 20 MEQ POWDER PACKET GT SCH (11:15)
[2019-03-07] MEDS: LINAGLIPTIN 5 MG TABLET GT SCH (11:15)
[2019-03-07] MEDS: CARVEDILOL 6.25 MG TABLET GT SCH ×2 (11:15→21:00)
[2019-03-07] MEDS: ACIDOPHILUS/BULGARICUS 1 EACH TAB.CHEW GT SCH (11:15)
[2019-03-07] MEDS: MINERAL OIL/PETROL OINT 396 GM JAR TP SCH ×2 (11:15→21:45)
[2019-03-07] MEDS: FINASTERIDE (5 MG) 5 MG TABLET GT SCH (11:15)
[2019-03-07] MEDS: Z GUARD REMEDY 4 OZ OINT TP SCH ×2 (11:15→21:45)
[2019-03-07] MEDS: ASCORBIC ACID 500 MG TABLET GT SCH (11:15)
[2019-03-07] MEDS: DORZOLAMIDE OPTH 2% 10 ML BOTTLE EACHEYE SCH ×3 (11:15→17:00)
[2019-03-07] MEDS: NEPRO 1,000 ML BOTTLE GT PRN (11:49)
--- NOTE | 2019-03-07 13:17 | NUR ---
Seen and examined by Dr. Garduno as well as ROSEMARIE Allen. and PA assessed skin condition due to generalized open skin originating from blisters and becoming open wound. Dr. Garduno ordered to send swab from one of the moist blister for gram stain and culture. PA said to use non-adherent dressing to cover the open wounds. Order noted and carried out.
[2019-03-07] MEDS: HYDROGEN PEROXIDE 480 ML BOTTLE TP SCH ×2 (14:09→21:45)
--- NOTE | 2019-03-07 19:00 | NUR ---
Seen and examined by MEME Catherine given.
--- NOTE | 2019-03-07 21:00 | NUR ---
Patient left great toe noted with pus drainage small amount,cleanse with normal saline and pat dry.Will get podiatry consult in AM.Son at bedside aware and made aware of the skin culture from open blister and change of treatment to xeroform dressing.
[2019-03-07] MEDS: LATANOPROST EYE DROP 0.005% 2.5 ML BOTTLE EACHEYE SCH (21:45)
[2019-03-07] MEDS: ATORVASTATIN 10 MG TABLET GT SCH (21:45)
[2019-03-07] MEDS: TAMSULOSIN 0.4 MG CAP.SR.24H PO SCH (21:45)
[2019-03-07] MEDS: BISACODYL SUPP (10 MG) 10 MG/SUPP.RECT SUPP.RECT RC PRN (22:00)
[2019-03-08] VITALS (8 sets, daily range): BP systolic 104–136; BP diastolic 40–72
[2019-03-08] MEDS: REGLAN GT SCH ×5 (00:02→23:30)
[2019-03-08] MEDS: BLOOD SUGAR DIAGNOSTIC 1 EACH STRIP IN SCH ×5 (00:02→23:30)
[2019-03-08] MEDS: SIMETHICONE SUSP 40 MG/0.6 ML BOTTLE GT SCH ×5 (00:02→23:30)
[2019-03-08] MEDS: INSULIN REGULAR, HUMAN 100 UNIT/ML 10 ML VIAL SQ SCH ×5 (00:03→23:32)
[2019-03-08] MEDS: IPRATROPIUM NEB FS 0.5 MG/2.5 ML AMPUL.NEB IH SCH ×4 (01:44→19:38)
--- NOTE | 2019-03-08 03:34 | NUR ---
RT NOTE PT REC'D TRACHED ON COOL AEROSOL @ 28% FIO2, PT PLACED ON MECH VENT ON CPAP MODE. PT AWAKE AND ALERT. NO RESP DISTRESS NOTED OR SOB NOTED. TRACH IS PATENT AND SECURED. ALARMS ARE SET AUDIBLE. VENT PLUGGED INTO RED OUTLET. AMBU BAG BEDSIDE. WILL CONTINUE TO MONITOR. Addendum: 03/08/19 at 0334 by PAUL ALMARAZ RT Amended: Links added.
[2019-03-08] MEDS: PROSTAT (PYXIS) 30 ML UDC GT SCH ×3 (05:22→21:10)
[2019-03-08] MEDS: LACOSAMIDE ORAL SOLN 50 MG/5 ML UDC GT SCH ×2 (05:23→17:56)
[2019-03-08] MEDS: OMEPRAZOLE 20 MG CAPSULE.DR GT SCH (05:23)
[2019-03-08] MEDS: BACI/NEOM/POLY B OINT PKT 1 UDPKT PACKET TP SCH ×3 (09:00→21:11)
[2019-03-08] MEDS: CARVEDILOL 6.25 MG TABLET GT SCH ×2 (09:00→21:10)
[2019-03-08] MEDS: VITS A AND D/WHITE PET/LANOLIN 5 GM PACKET TP SCH ×2 (09:00→21:11)
[2019-03-08] MEDS: CHLORHEXIDINE GLUCONATE 15 ML UDC MM SCH ×2 (09:00→21:10)
[2019-03-08] MEDS: ACIDOPHILUS/BULGARICUS 1 EACH TAB.CHEW GT SCH (09:00)
[2019-03-08] MEDS: ASCORBIC ACID 500 MG TABLET GT SCH (09:00)
[2019-03-08] MEDS: Z GUARD REMEDY 4 OZ OINT TP SCH ×2 (09:00→21:11)
[2019-03-08] MEDS: FINASTERIDE (5 MG) 5 MG TABLET GT SCH (09:00)
[2019-03-08] MEDS: MINERAL OIL/PETROL OINT 396 GM JAR TP SCH ×2 (09:00→21:11)
[2019-03-08] MEDS: POTASSIUM CHLORIDE 20 MEQ POWDER PACKET GT SCH (09:00)
[2019-03-08] MEDS: LINAGLIPTIN 5 MG TABLET GT SCH (09:00)
[2019-03-08] MEDS: DORZOLAMIDE OPTH 2% 10 ML BOTTLE EACHEYE SCH ×3 (09:00→17:56)
[2019-03-08] MEDS: HYDROGEN PEROXIDE 480 ML BOTTLE TP SCH ×2 (09:00→21:11)
--- NOTE | 2019-03-08 12:00 | NUR ---
Seen and examined by BRANDO Lozano, assessed patient's skin, wound culture result pending, will continue local treatment.
[2019-03-08] MEDS ORDERED: ACETAMINOPHEN 325 MG TABLET PO PRN (16:30)
--- NOTE | 2019-03-08 19:14 | NUR ---
Notified resident's son Dr. Johns that Dr. Dotson was notified of the pus noted in the patient's L great toe. MD assessed patient's toes, performed wedge resection and ordered to apply triple ATB x [address] Ramírez also gave an order for Tylenol 650 mg. prior to treatment.
[2019-03-08] MEDS: LATANOPROST EYE DROP 0.005% 2.5 ML BOTTLE EACHEYE SCH (21:11)
[2019-03-08] MEDS: ATORVASTATIN 10 MG TABLET GT SCH (21:11)
[2019-03-08] MEDS: NEOMY SULF/BACITRAC ZN/POLY 15 GM TUBE TP SCH (21:11)
[2019-03-08] MEDS: TAMSULOSIN 0.4 MG CAP.SR.24H PO SCH (21:11)
[2019-03-09] VITALS (7 sets, daily range): BP systolic 111–136; BP diastolic 52–99
[2019-03-09] MEDS: IPRATROPIUM NEB FS 0.5 MG/2.5 ML AMPUL.NEB IH SCH ×4 (01:26→20:05)
[2019-03-09] MEDS: REGLAN GT SCH ×3 (05:26→17:18)
[2019-03-09] MEDS: SIMETHICONE SUSP 40 MG/0.6 ML BOTTLE GT SCH ×3 (05:26→17:18)
[2019-03-09] MEDS: BLOOD SUGAR DIAGNOSTIC 1 EACH STRIP IN SCH ×3 (05:26→17:18)
[2019-03-09] MEDS: LACOSAMIDE ORAL SOLN 50 MG/5 ML UDC GT SCH ×2 (05:26→17:18)
[2019-03-09] MEDS: PROSTAT (PYXIS) 30 ML UDC GT SCH ×3 (05:26→21:23)
[2019-03-09] MEDS: OMEPRAZOLE 20 MG CAPSULE.DR GT SCH (05:26)
[2019-03-09] MEDS: INSULIN REGULAR, HUMAN 100 UNIT/ML 10 ML VIAL SQ SCH ×3 (05:29→17:19)
[2019-03-09] MEDS: DORZOLAMIDE OPTH 2% 10 ML BOTTLE EACHEYE SCH ×3 (09:00→17:18)
[2019-03-09] MEDS: CHLORHEXIDINE GLUCONATE 15 ML UDC MM SCH ×2 (09:00→21:23)
[2019-03-09] MEDS: CARVEDILOL 6.25 MG TABLET GT SCH ×2 (09:00→21:24)
[2019-03-09] MEDS: POTASSIUM CHLORIDE 20 MEQ POWDER PACKET GT SCH (09:00)
[2019-03-09] MEDS: ACIDOPHILUS/BULGARICUS 1 EACH TAB.CHEW GT SCH (09:00)
[2019-03-09] MEDS: ASCORBIC ACID 500 MG TABLET GT SCH (09:00)
[2019-03-09] MEDS: FINASTERIDE (5 MG) 5 MG TABLET GT SCH (09:00)
[2019-03-09] MEDS: LINAGLIPTIN 5 MG TABLET GT SCH (09:00)
[2019-03-09] MEDS: NEPRO 1,000 ML BOTTLE GT PRN (10:45)
[2019-03-09] MEDS: MINERAL OIL/PETROL OINT 396 GM JAR TP SCH ×2 (11:38→21:26)
[2019-03-09] MEDS: Z GUARD REMEDY 4 OZ OINT TP SCH ×2 (11:39→21:26)
[2019-03-09] MEDS: BACI/NEOM/POLY B OINT PKT 1 UDPKT PACKET TP SCH ×2 (11:39→21:27)
[2019-03-09] MEDS: NEOMY SULF/BACITRAC ZN/POLY 15 GM TUBE TP SCH ×2 (11:39→21:26)
[2019-03-09] MEDS: VITS A AND D/WHITE PET/LANOLIN 5 GM PACKET TP SCH ×2 (11:39→21:26)
[2019-03-09] MEDS: HYDROGEN PEROXIDE 480 ML BOTTLE TP SCH ×2 (12:03→21:26)
--- NOTE | 2019-03-09 18:13 | NUR ---
RT END OF THE SHIFT REPORT PT 78 Y OLD MALE REMAIN TRACH'D SHILEY # 6 ON COOL AEROSOL 28% TONY. WELL POST DIALYSIS, RN/RT NOTED BLOODY SECRETIONS WHEN SUX'D PT. RN AT THE BEDSIDE. AND PLACED BITE BLOCK PT. IS BITTING ON LIP OR INSIDE MOUTH NO RESP DISTRESS NOTED OR SOB T/O SHIFT. EQUAL CHEST RISE NOTED. B/S BILATERALLY RHONCHI SUX'S FOR MOD. AMT OF RED SECRETIONS. TRACH IS PATENT AND SECURED. TRACH CARE DONE, INNER CANNULA, REPORT WILL PASS TO PM SHIFT.
[2019-03-09] MEDS: TAMSULOSIN 0.4 MG CAP.SR.24H PO SCH (21:25)
[2019-03-09] MEDS: ATORVASTATIN 10 MG TABLET GT SCH (21:26)
[2019-03-09] MEDS: LATANOPROST EYE DROP 0.005% 2.5 ML BOTTLE EACHEYE SCH (21:26)
[2019-03-10] MEDS: REGLAN GT SCH ×4 (00:27→17:30)
[2019-03-10] MEDS: SIMETHICONE SUSP 40 MG/0.6 ML BOTTLE GT SCH ×4 (00:28→17:30)
--- NOTE | 2019-03-10 00:28 | NUR ---
PT REC'D ON COOL AEROSOL @ 28% FIO2 PER MD ORDERS. PT PLACED ON MECH VENT ON CPAP MODE PER MD ORDERS. NO RESP DISTRESS OR SOB NOTED. TRACH IS PATENT AND SECURED. PT SX'D FOR MOD AMT OF PALE YELLOW SECRETIONS. VENT PLUGGED INTO RED OUTLET. ALARMS ARE SET AND AUDIBLE. AMBU BAG BEDSIDE. WILL CONTINUE TO MONITOR. Addendum: 03/10/19 at 0030 by PAUL ALMARAZ RT Amended: Links added.
[2019-03-10] MEDS: BLOOD SUGAR DIAGNOSTIC 1 EACH STRIP IN SCH ×4 (00:29→17:31)
[2019-03-10] MEDS: INSULIN REGULAR, HUMAN 100 UNIT/ML 10 ML VIAL SQ SCH ×4 (00:38→17:35)
[2019-03-10 01:00] VITALS: BP 134/57
[2019-03-10] MEDS: IPRATROPIUM NEB FS 0.5 MG/2.5 ML AMPUL.NEB IH SCH ×4 (01:59→19:58)
[2019-03-10 05:00] VITALS: BP 130/67
[2019-03-10] MEDS: PROSTAT (PYXIS) 30 ML UDC GT SCH ×3 (05:47→21:16)
[2019-03-10] MEDS: OMEPRAZOLE 20 MG CAPSULE.DR GT SCH (05:47)
[2019-03-10] MEDS: LACOSAMIDE ORAL SOLN 50 MG/5 ML UDC GT SCH ×2 (05:47→17:30)
[2019-03-10 07:30] VITALS: BP 130/65
[2019-03-10] MEDS: BACI/NEOM/POLY B OINT PKT 1 UDPKT PACKET TP SCH ×2 (09:00→21:16)
[2019-03-10] MEDS: Z GUARD REMEDY 4 OZ OINT TP SCH ×2 (09:00→21:17)
[2019-03-10] MEDS: NEOMY SULF/BACITRAC ZN/POLY 15 GM TUBE TP SCH ×2 (09:00→21:16)
[2019-03-10] MEDS: VITS A AND D/WHITE PET/LANOLIN 5 GM PACKET TP SCH ×2 (09:00→21:17)
[2019-03-10] MEDS: HYDROGEN PEROXIDE 480 ML BOTTLE TP SCH ×2 (09:40→21:12)
[2019-03-10] MEDS: CHLORHEXIDINE GLUCONATE 15 ML UDC MM SCH ×2 (09:59→21:16)
[2019-03-10] MEDS: ASCORBIC ACID 500 MG TABLET GT SCH (09:59)
[2019-03-10] MEDS: MINERAL OIL/PETROL OINT 396 GM JAR TP SCH ×2 (09:59→21:16)
[2019-03-10] MEDS: FINASTERIDE (5 MG) 5 MG TABLET GT SCH (09:59)
[2019-03-10] MEDS: CARVEDILOL 6.25 MG TABLET GT SCH ×2 (09:59→21:16)
[2019-03-10] MEDS: POTASSIUM CHLORIDE 20 MEQ POWDER PACKET GT SCH (09:59)
[2019-03-10] MEDS: LINAGLIPTIN 5 MG TABLET GT SCH (09:59)
[2019-03-10] MEDS: ACIDOPHILUS/BULGARICUS 1 EACH TAB.CHEW GT SCH (09:59)
[2019-03-10] MEDS: DORZOLAMIDE OPTH 2% 10 ML BOTTLE EACHEYE SCH ×3 (09:59→17:06)
[2019-03-10] MEDS: NEPRO 1,000 ML BOTTLE GT PRN (11:00)
--- NOTE | 2019-03-10 14:00 | NUR ---
Seen and examined by Arlyn Hanks, BRANDO, noted right great toe with purulent discharge. Culture done and sent to lab. Afebrile. Will continue to monitor.
--- NOTE | 2019-03-10 15:00 | NUR ---
Arlyn Hanks, RESTORATIVE CARE TECHNICIAN ordered CBC, CMP in AM 03/11/19, requested. Vancomycin IV pharmacy to dose x 7 days for right great toe infection.
--- NOTE | 2019-03-10 15:35 | NUR ---
Spoke with Dr. Rangel informed him regarding right great toe with purulent discharge he said he will come to see resident stacey. 03/11/19.
--- NOTE | 2019-03-10 16:40 | NUR ---
Spoke with Dr. Jose Johns (Son) informed regarding right great toe with purulent discharge. Discussed with him the plan of care. He appreciated the call.
[2019-03-10] MEDS ORDERED: VANCOMYCIN 1 GM in IV NS 0.9% 250 ML IV ONE (18:00)
[2019-03-10 18:42] VITALS: BP 122/71
[2019-03-10 20:20] VITALS: BP 141/68
[2019-03-10 21:14] VITALS: BP 141/68
[2019-03-10] MEDS: LATANOPROST EYE DROP 0.005% 2.5 ML BOTTLE EACHEYE SCH (21:17)
[2019-03-10] MEDS: ATORVASTATIN 10 MG TABLET GT SCH (21:17)
[2019-03-10] MEDS: TAMSULOSIN 0.4 MG CAP.SR.24H PO SCH (21:17)
[2019-03-11] MEDS: REGLAN GT SCH ×4 (00:31→17:16)
[2019-03-11] MEDS: BLOOD SUGAR DIAGNOSTIC 1 EACH STRIP IN SCH ×4 (00:31→17:16)
[2019-03-11] MEDS: SIMETHICONE SUSP 40 MG/0.6 ML BOTTLE GT SCH ×4 (00:31→17:16)
[2019-03-11] MEDS: INSULIN REGULAR, HUMAN 100 UNIT/ML 10 ML VIAL SQ SCH ×4 (00:32→17:19)
[2019-03-11] MEDS: IPRATROPIUM NEB FS 0.5 MG/2.5 ML AMPUL.NEB IH SCH ×4 (01:27→19:42)
[2019-03-11 02:31] VITALS: BP 132/62
[2019-03-11] MEDS: PROSTAT (PYXIS) 30 ML UDC GT SCH ×3 (05:47→20:26)
[2019-03-11 05:49] VITALS: BP 129/64
[2019-03-11] MEDS: OMEPRAZOLE 20 MG CAPSULE.DR GT SCH (05:55)
[2019-03-11] MEDS: LACOSAMIDE ORAL SOLN 50 MG/5 ML UDC GT SCH ×2 (05:55→17:16)
[2019-03-11 07:26] LABS: BASOPHILS % (AUTO) 0.2 % (0.0-2.0); HEMATOCRIT 38 % (39-51); HEMOGLOBIN 12.1 g/dL (13.5-17.5); LYMPHOCYTES # (AUTO) 1.2 /CMM (0.8-4.8); LYMPHOCYTES % (AUTO) 15.2 % (20.0-44.0); MEAN CORPUSCULAR HGB CONC 32 g/dl (31.0-36.0); MEAN CORPUSCULAR VOLUME 96 fL (80-96); MONOCYTES # (AUTO) 0.8 /CMM (0.1-1.30); MONOCYTES % (AUTO) 9.8 % (2.0-12.0); NEUTROPHILS # (AUTO) 5.7 /CMM (1.8-8.9); NEUTROPHILS % (AUTO) 70.8 % (43.0-81.0); PLATELET COUNT (AUTO) 170 /CMM (150-450); WHITE BLOOD COUNT (AUTO) 8.1 K/uL (4.3-11.0)
[2019-03-11 07:36] VITALS: BP 139/71
[2019-03-11 07:38] LABS: CALCIUM, SERUM 9.2 mg/dL (8.5-10.1); CARBON DIOXIDE 19 mmol/L (21-32); CHLORIDE 100 mmol/L (98-107); CREATININE 4.6 mg/dL (0.6-1.3); GLUCOSE 199 mg/dL (74-106); POTASSIUM 4.2 mmol/L (3.5-5.1); SODIUM SERUM 133 mmol/L (136-145)
[2019-03-11 07:44] LABS: UREA NITROGEN, BLOOD 86 mg/dL (7-18)
[2019-03-11] MEDS: Z GUARD REMEDY 4 OZ OINT TP SCH ×2 (09:00→20:27)
[2019-03-11] MEDS: MINERAL OIL/PETROL OINT 396 GM JAR TP SCH ×2 (09:00→20:26)
[2019-03-11] MEDS: BACI/NEOM/POLY B OINT PKT 1 UDPKT PACKET TP SCH ×2 (09:00→20:27)
[2019-03-11] MEDS: VITS A AND D/WHITE PET/LANOLIN 5 GM PACKET TP SCH ×2 (09:00→20:27)
[2019-03-11] MEDS: NEOMY SULF/BACITRAC ZN/POLY 15 GM TUBE TP SCH ×2 (09:00→20:27)
[2019-03-11] MEDS: HYDROGEN PEROXIDE 480 ML BOTTLE TP SCH ×2 (09:27→20:27)
[2019-03-11] MEDS: DORZOLAMIDE OPTH 2% 10 ML BOTTLE EACHEYE SCH ×3 (09:32→17:16)
[2019-03-11] MEDS: FINASTERIDE (5 MG) 5 MG TABLET GT SCH (09:33)
[2019-03-11] MEDS: CARVEDILOL 6.25 MG TABLET GT SCH ×2 (09:33→20:26)
[2019-03-11] MEDS: ACIDOPHILUS/BULGARICUS 1 EACH TAB.CHEW GT SCH (09:33)
[2019-03-11] MEDS: CHLORHEXIDINE GLUCONATE 15 ML UDC MM SCH ×2 (09:33→20:26)
[2019-03-11] MEDS: ASCORBIC ACID 500 MG TABLET GT SCH (09:33)
[2019-03-11] MEDS: POTASSIUM CHLORIDE 20 MEQ POWDER PACKET GT SCH (09:33)
[2019-03-11] MEDS: LINAGLIPTIN 5 MG TABLET GT SCH (09:33)
[2019-03-11] MEDS: NEPRO 1,000 ML BOTTLE GT PRN (09:44)
[2019-03-11 12:22] VITALS: BP 130/70
--- NOTE | 2019-03-11 15:41 | NUR ---
Seen by Dr Dotson. He ordered to apply betadine paint on the right great toe.
[2019-03-11 17:20] VITALS: BP 121/68
[2019-03-11 19:47] VITALS: BP 137/75
[2019-03-11] MEDS: ACETAMINOPHEN 650 MG/20 ML UDC- SA PATIENTS-PAIN ONLY GT SCH (20:26)
[2019-03-11] MEDS ORDERED: ACETAMINOPHEN 325 MG TABLET PO SCH (21:00)
[2019-03-11] MEDS: LATANOPROST EYE DROP 0.005% 2.5 ML BOTTLE EACHEYE SCH (21:09)
[2019-03-11] MEDS: ATORVASTATIN 10 MG TABLET GT SCH (21:09)
[2019-03-11] MEDS: TAMSULOSIN 0.4 MG CAP.SR.24H PO SCH (21:09)
--- NOTE | 2019-03-12 00:02 | NUR ---
PT PLACED ON [facility] VENT ON CPAP MODE PER MD ORDERS. NO RESP DISTRESS OR SOB NOTED. VENT PLUGGED INTO RED OUTLET. ALARMS ARE SET AND AUDIBLE. AMBU BAG BEDSIDE. Addendum: 03/12/19 at 0446 by BLADIMIR MEEK RT Amended: Links added.
[2019-03-12] MEDS: BLOOD SUGAR DIAGNOSTIC 1 EACH STRIP IN SCH ×5 (00:15→23:53)
[2019-03-12] MEDS: SIMETHICONE SUSP 40 MG/0.6 ML BOTTLE GT SCH ×5 (00:15→23:53)
[2019-03-12] MEDS: REGLAN GT SCH ×5 (00:15→23:53)
[2019-03-12] MEDS: INSULIN REGULAR, HUMAN 100 UNIT/ML 10 ML VIAL SQ SCH ×5 (00:16→23:54)
[2019-03-12 00:33] VITALS: BP 129/78
[2019-03-12] MEDS: IPRATROPIUM NEB FS 0.5 MG/2.5 ML AMPUL.NEB IH SCH ×4 (01:16→19:58)
[2019-03-12 01:43] VITALS: BP 132/70
[2019-03-12] MEDS: PROSTAT (PYXIS) 30 ML UDC GT SCH ×3 (05:30→21:10)
[2019-03-12] MEDS: OMEPRAZOLE 20 MG CAPSULE.DR GT SCH (05:30)
[2019-03-12] MEDS: LACOSAMIDE ORAL SOLN 50 MG/5 ML UDC GT SCH ×2 (05:30→17:07)
[2019-03-12 05:43] VITALS: BP 138/79
[2019-03-12] MEDS: POTASSIUM CHLORIDE 20 MEQ POWDER PACKET GT SCH (09:00)
[2019-03-12] MEDS: ACETAMINOPHEN 650 MG/20 ML UDC- SA PATIENTS-PAIN ONLY GT SCH ×2 (09:00→21:10)
[2019-03-12] MEDS: FINASTERIDE (5 MG) 5 MG TABLET GT SCH (09:00)
[2019-03-12] MEDS: ASCORBIC ACID 500 MG TABLET GT SCH (09:00)
[2019-03-12] MEDS: ACIDOPHILUS/BULGARICUS 1 EACH TAB.CHEW GT SCH (09:00)
[2019-03-12] MEDS: LINAGLIPTIN 5 MG TABLET GT SCH (09:00)
[2019-03-12] MEDS: DORZOLAMIDE OPTH 2% 10 ML BOTTLE EACHEYE SCH ×3 (09:00→17:07)
[2019-03-12] MEDS: CARVEDILOL 6.25 MG TABLET GT SCH ×2 (09:00→21:09)
[2019-03-12] MEDS: MINERAL OIL/PETROL OINT 396 GM JAR TP SCH ×2 (09:00→21:10)
[2019-03-12] MEDS: CHLORHEXIDINE GLUCONATE 15 ML UDC MM SCH ×2 (09:00→21:10)
[2019-03-12] MEDS: Z GUARD REMEDY 4 OZ OINT TP SCH ×2 (11:30→21:10)
[2019-03-12] MEDS: NEOMY SULF/BACITRAC ZN/POLY 15 GM TUBE TP SCH ×2 (11:30→21:10)
[2019-03-12] MEDS: VITS A AND D/WHITE PET/LANOLIN 5 GM PACKET TP SCH ×2 (11:30→21:10)
[2019-03-12] MEDS: BACI/NEOM/POLY B OINT PKT 1 UDPKT PACKET TP SCH ×2 (11:30→21:10)
--- NOTE | 2019-03-12 11:30 | NUR ---
Received recommendation from [facility]. Informed Dr. Garduno and he said okay to carry out.
[2019-03-12] MEDS: VANCOMYCIN POST DIALYSIS 500MG IV SCH ×2 (12:00)
[2019-03-12] MEDS ORDERED: VANCOMYCIN 500 MG in IV NS 0.9% 100 ML IV PRN (12:00)
--- NOTE | 2019-03-12 12:25 | NUR ---
Seen and examined by Jon Collier NP. Reviewed wound culture result of rt great toe with new ATB IV order. Cefepime 1 gram IV today, given. Then Cefepime 500 mg q 24 hrs (administer after dialysis on dialysis days). Son informed at bedside with new plan of care.
[2019-03-12] MEDS: HYDROGEN PEROXIDE 480 ML BOTTLE TP SCH ×2 (13:24→21:10)
[2019-03-12] MEDS ORDERED: CEFEPIME 1 GM in IV D5W 50 ML IV ONE (15:30)
[2019-03-12] MEDS: NEPRO 1,000 ML BOTTLE GT PRN (16:39)
[2019-03-12 17:50] VITALS: BP 102/57
[2019-03-12 20:48] VITALS: BP 131/57
[2019-03-12 21:08] VITALS: BP 131/57
[2019-03-12] MEDS: ATORVASTATIN 10 MG TABLET GT SCH (21:10)
[2019-03-12] MEDS: LATANOPROST EYE DROP 0.005% 2.5 ML BOTTLE EACHEYE SCH (21:10)
[2019-03-12] MEDS: TAMSULOSIN 0.4 MG CAP.SR.24H PO SCH (21:10)
[2019-03-13] VITALS (8 sets, daily range): BP systolic 119–152; BP diastolic 64–77
[2019-03-13] MEDS: IPRATROPIUM NEB FS 0.5 MG/2.5 ML AMPUL.NEB IH SCH ×4 (00:46→19:59)
[2019-03-13] MEDS: PROSTAT (PYXIS) 30 ML UDC GT SCH ×3 (05:50→21:08)
[2019-03-13] MEDS: LACOSAMIDE ORAL SOLN 50 MG/5 ML UDC GT SCH ×2 (06:02→17:47)
[2019-03-13] MEDS: OMEPRAZOLE 20 MG CAPSULE.DR GT SCH (06:02)
[2019-03-13] MEDS: SIMETHICONE SUSP 40 MG/0.6 ML BOTTLE GT SCH ×4 (06:02→23:26)
[2019-03-13] MEDS: REGLAN GT SCH ×4 (06:02→23:26)
[2019-03-13] MEDS: BLOOD SUGAR DIAGNOSTIC 1 EACH STRIP IN SCH ×4 (06:02→23:26)
[2019-03-13] MEDS: INSULIN REGULAR, HUMAN 100 UNIT/ML 10 ML VIAL SQ SCH ×4 (06:03→23:27)
[2019-03-13] MEDS: DORZOLAMIDE OPTH 2% 10 ML BOTTLE EACHEYE SCH ×3 (09:48→17:47)
[2019-03-13] MEDS: LINAGLIPTIN 5 MG TABLET GT SCH (09:50)
[2019-03-13] MEDS: ACETAMINOPHEN 650 MG/20 ML UDC- SA PATIENTS-PAIN ONLY GT SCH ×2 (09:50→21:08)
[2019-03-13] MEDS: CARVEDILOL 6.25 MG TABLET GT SCH ×2 (09:50→21:08)
[2019-03-13] MEDS: ASCORBIC ACID 500 MG TABLET GT SCH (09:50)
[2019-03-13] MEDS: ACIDOPHILUS/BULGARICUS 1 EACH TAB.CHEW GT SCH (09:50)
[2019-03-13] MEDS: FINASTERIDE (5 MG) 5 MG TABLET GT SCH (09:50)
[2019-03-13] MEDS: CHLORHEXIDINE GLUCONATE 15 ML UDC MM SCH ×2 (09:50→21:10)
[2019-03-13] MEDS: POTASSIUM CHLORIDE 20 MEQ POWDER PACKET GT SCH (09:50)
--- NOTE | 2019-03-13 10:41 | NUR ---
Dr. Velásquez placed order for CBC, ESR, procalcitonin on 03/14/19 and right foot x-ray today. Final culture result relayed to him.
--- NOTE | 2019-03-13 10:45 | NUR ---
Seen and examined by Dr. Garduno with new orders and carried out. EKG and contact isolation precaution. Addendum: 03/13/19 at 1848 by JOANIE HAM RN EKG done due to episode of bradycardia. Contact isolation precaution-MRSA of right great toe wound.
[2019-03-13] MEDS: VITS A AND D/WHITE PET/LANOLIN 5 GM PACKET TP SCH ×2 (10:50→21:10)
[2019-03-13] MEDS: NEOMY SULF/BACITRAC ZN/POLY 15 GM TUBE TP SCH ×2 (10:50→21:10)
[2019-03-13] MEDS: BACI/NEOM/POLY B OINT PKT 1 UDPKT PACKET TP SCH ×2 (10:50→21:10)
[2019-03-13] MEDS: MINERAL OIL/PETROL OINT 396 GM JAR TP SCH ×2 (10:50→21:10)
[2019-03-13] MEDS: Z GUARD REMEDY 4 OZ OINT TP SCH ×2 (10:50→21:10)
--- NOTE | 2019-03-13 11:00 | NUR ---
Spoke with Dr. Johns (Son) informed about new orders. Appreciated the call.
[2019-03-13] MEDS: NEPRO 1,000 ML BOTTLE GT PRN (11:38)
--- NOTE | 2019-03-13 12:19 | NUR ---
Relayed EKG result to Dr. Garduno, no new order given.
[2019-03-13] MEDS: CEFEPIME 0.5 GM in IV D5W 50 ML IV SCH (16:00)
[2019-03-13] MEDS: HYDROGEN PEROXIDE 480 ML BOTTLE TP SCH (20:38)
[2019-03-13] MEDS: ATORVASTATIN 10 MG TABLET GT SCH (21:10)
[2019-03-13] MEDS: LATANOPROST EYE DROP 0.005% 2.5 ML BOTTLE EACHEYE SCH (21:10)
[2019-03-13] MEDS: TAMSULOSIN 0.4 MG CAP.SR.24H PO SCH (21:11)
[2019-03-14] VITALS (8 sets, daily range): BP systolic 119–139; BP diastolic 54–74
[2019-03-14] MEDS: IPRATROPIUM NEB FS 0.5 MG/2.5 ML AMPUL.NEB IH SCH ×4 (00:59→20:20)
[2019-03-14] MEDS: LACOSAMIDE ORAL SOLN 50 MG/5 ML UDC GT SCH ×2 (05:03→17:40)
[2019-03-14] MEDS: REGLAN GT SCH ×3 (05:03→17:40)
[2019-03-14] MEDS: SIMETHICONE SUSP 40 MG/0.6 ML BOTTLE GT SCH ×3 (05:03→17:40)
[2019-03-14] MEDS: BLOOD SUGAR DIAGNOSTIC 1 EACH STRIP IN SCH ×3 (05:03→18:16)
[2019-03-14] MEDS: OMEPRAZOLE 20 MG CAPSULE.DR GT SCH (05:03)
[2019-03-14] MEDS: PROSTAT (PYXIS) 30 ML UDC GT SCH ×3 (05:03→21:36)
[2019-03-14] MEDS: INSULIN REGULAR, HUMAN 100 UNIT/ML 10 ML VIAL SQ SCH ×3 (05:04→18:00)
--- NOTE | 2019-03-14 05:09 | NUR ---
RT NOTE PT PLACED ON COOL AEROSOL PER MD ORDER. NO SOB NOTED. Addendum: 03/14/19 at 0512 by TITO GARCES RT BRIGHT MANCIA
--- NOTE | 2019-03-14 06:30 | NUR ---
RN NOTES PT TRANSFERRED TO HD CENTER. V/S STABLE. INFORMED GAS METER INSTALLER HELPER PT IN HD CENTER, ENDORSED TO AM RN TO CALL LAB ONCE PT IS BACK FROM HD.
[2019-03-14] MEDS: DORZOLAMIDE OPTH 2% 10 ML BOTTLE EACHEYE SCH ×3 (09:00→17:40)
--- NOTE | 2019-03-14 10:00 | NUR ---
Staff and pt's son educated regarding contact isolation precautions and proper handwashing.
--- NOTE | 2019-03-14 10:01 | NUR ---
Spoke with [facility] pharmacist Tawnya. Informed her that Vancomycin level was not drawn before pt left for hemodialysis earlier this morning. She said to have Vancomycin level drawn before hemodialysis on 03/16/19, continue current dose for now.
[2019-03-14] MEDS: HYDROGEN PEROXIDE 480 ML BOTTLE TP SCH ×2 (10:58→21:37)
--- NOTE | 2019-03-14 12:00 | NUR ---
Informed Dr Swenson of right foot x-ray result. No new order.
[2019-03-14] MEDS: CARVEDILOL 6.25 MG TABLET GT SCH ×2 (12:07→21:36)
[2019-03-14] MEDS: FINASTERIDE (5 MG) 5 MG TABLET GT SCH (12:07)
[2019-03-14] MEDS: ACETAMINOPHEN 650 MG/20 ML UDC- SA PATIENTS-PAIN ONLY GT SCH ×2 (12:07→21:36)
[2019-03-14] MEDS: ACIDOPHILUS/BULGARICUS 1 EACH TAB.CHEW GT SCH (12:07)
[2019-03-14] MEDS: POTASSIUM CHLORIDE 20 MEQ POWDER PACKET GT SCH (12:07)
[2019-03-14] MEDS: LINAGLIPTIN 5 MG TABLET GT SCH (12:07)
[2019-03-14] MEDS: CHLORHEXIDINE GLUCONATE 15 ML UDC MM SCH ×2 (12:08→21:36)
[2019-03-14] MEDS: VITS A AND D/WHITE PET/LANOLIN 5 GM PACKET TP SCH ×2 (12:08→21:37)
[2019-03-14] MEDS: NEOMY SULF/BACITRAC ZN/POLY 15 GM TUBE TP SCH ×2 (12:08→21:37)
[2019-03-14] MEDS: Z GUARD REMEDY 4 OZ OINT TP SCH ×2 (12:08→21:37)
[2019-03-14] MEDS: MINERAL OIL/PETROL OINT 396 GM JAR TP SCH ×2 (12:08→21:37)
[2019-03-14] MEDS: ASCORBIC ACID 500 MG TABLET GT SCH (12:08)
[2019-03-14 12:50] LABS: BASOPHILS % (AUTO) 0.3 % (0.0-2.0); EOSINOPHILS % (AUTO) 3.2 % (0.0-6.0); HEMATOCRIT 35 % (39-51); HEMOGLOBIN 11.6 g/dL (13.5-17.5); LYMPHOCYTES % (AUTO) 9.7 % (20.0-44.0); MEAN CORPUSCULAR HGB CONC 33 g/dl (31.0-36.0); MEAN CORPUSCULAR VOLUME 95 fL (80-96); MONOCYTES # (AUTO) 0.8 /CMM (0.1-1.30); MONOCYTES % (AUTO) 7.8 % (2.0-12.0); NEUTROPHILS # (AUTO) 7.9 /CMM (1.8-8.9); PLATELET COUNT (AUTO) 172 /CMM (150-450); RED BLOOD CELL COUNT(AUTO) 3.69 MIL/uL (4.5-6.0)
[2019-03-14] MEDS: VANCOMYCIN POST DIALYSIS 500MG IV SCH ×2 (12:50)
[2019-03-14 13:14] LABS: BAND % (MANUAL) 4 % (0.0-5.0); EOSINOPHILS % (MANUAL) 2 % (0-4); LYMPHOCYTES % (MANUAL) 8 % (16-48); MONOCYTES % (MANUAL) 13 % (0-11.0); NEUTROPHILS % (MANUAL) 72 (42-76)
[2019-03-14 13:15] LABS: METAMYELOCYTES % 1 % (0-0)
[2019-03-14] MEDS: CEFEPIME 0.5 GM in IV D5W 50 ML IV SCH (16:00)
--- NOTE | 2019-03-14 17:55 | NUR ---
Pt's right kaliion noted with pinkish reddish skin. Seen by Dr Dotson and he said it is scar tissue. No new order. Addendum: 03/14/19 at 1756 by MAGDA LOBO RN Right bunion appears to have pinkish reddish open skin
[2019-03-14] MEDS: LATANOPROST EYE DROP 0.005% 2.5 ML BOTTLE EACHEYE SCH (21:37)
[2019-03-14] MEDS: TAMSULOSIN 0.4 MG CAP.SR.24H PO SCH (21:37)
[2019-03-14] MEDS: ATORVASTATIN 10 MG TABLET GT SCH (21:37)
[2019-03-15] VITALS (7 sets, daily range): BP systolic 124–136; BP diastolic 63–78
[2019-03-15] MEDS: REGLAN GT SCH ×4 (00:06→17:31)
[2019-03-15] MEDS: SIMETHICONE SUSP 40 MG/0.6 ML BOTTLE GT SCH ×4 (00:06→17:30)
[2019-03-15] MEDS: BLOOD SUGAR DIAGNOSTIC 1 EACH STRIP IN SCH ×4 (00:06→18:41)
[2019-03-15] MEDS: INSULIN REGULAR, HUMAN 100 UNIT/ML 10 ML VIAL SQ SCH ×4 (00:07→18:44)
[2019-03-15] MEDS: IPRATROPIUM NEB FS 0.5 MG/2.5 ML AMPUL.NEB IH SCH ×4 (02:06→19:56)
[2019-03-15] MEDS: LACOSAMIDE ORAL SOLN 50 MG/5 ML UDC GT SCH ×2 (05:25→17:35)
[2019-03-15] MEDS: PROSTAT (PYXIS) 30 ML UDC GT SCH ×3 (05:25→21:26)
[2019-03-15] MEDS: OMEPRAZOLE 20 MG CAPSULE.DR GT SCH (05:25)
[2019-03-15] MEDS: NEPRO 1,000 ML BOTTLE GT PRN ×2 (05:47→23:01)
[2019-03-15] MEDS: DORZOLAMIDE OPTH 2% 10 ML BOTTLE EACHEYE SCH ×3 (08:33→17:29)
[2019-03-15] MEDS: CARVEDILOL 6.25 MG TABLET GT SCH ×2 (08:34→21:29)
[2019-03-15] MEDS: POTASSIUM CHLORIDE 20 MEQ POWDER PACKET GT SCH (08:35)
[2019-03-15] MEDS: ACIDOPHILUS/BULGARICUS 1 EACH TAB.CHEW GT SCH (08:35)
[2019-03-15] MEDS: LINAGLIPTIN 5 MG TABLET GT SCH (08:36)
[2019-03-15] MEDS: FINASTERIDE (5 MG) 5 MG TABLET GT SCH (08:36)
[2019-03-15] MEDS: ACETAMINOPHEN 650 MG/20 ML UDC- SA PATIENTS-PAIN ONLY GT SCH ×2 (08:37→21:27)
[2019-03-15] MEDS: ASCORBIC ACID 500 MG TABLET GT SCH (08:37)
[2019-03-15] MEDS: MINERAL OIL/PETROL OINT 396 GM JAR TP SCH ×2 (09:00→21:00)
[2019-03-15] MEDS: VITS A AND D/WHITE PET/LANOLIN 5 GM PACKET TP SCH ×2 (09:00→21:36)
[2019-03-15] MEDS: Z GUARD REMEDY 4 OZ OINT TP SCH ×2 (09:00→21:36)
[2019-03-15] MEDS: HYDROGEN PEROXIDE 480 ML BOTTLE TP SCH ×2 (09:00→21:00)
[2019-03-15] MEDS: NEOMY SULF/BACITRAC ZN/POLY 15 GM TUBE TP SCH (09:00)
[2019-03-15] MEDS: CHLORHEXIDINE GLUCONATE 15 ML UDC MM SCH ×2 (09:00→21:41)
--- NOTE | 2019-03-15 11:04 | NUR ---
Called [facility] to follow up on Pseudomonas sensitivities to Avycaz, Zerbaxa, and Doripemen. Spoke with Lia. She said the specimen was sent to [place] and it will take 10 days to get the result.
--- NOTE | 2019-03-15 13:00 | NUR ---
Informed ADMINISTRATIVE TECHNICIAN Jon Collier that Pseudomonas sensitivity to Avycaz, Zerbaxa, and Doripemen are still pending and will be available in 10 days. No new order.
[2019-03-15] MEDS: CEFEPIME 0.5 GM in IV D5W 50 ML IV SCH (16:00)
[2019-03-15] MEDS: ATORVASTATIN 10 MG TABLET GT SCH (21:30)
[2019-03-15] MEDS: TAMSULOSIN 0.4 MG CAP.SR.24H PO SCH (21:30)
[2019-03-15] MEDS: LATANOPROST EYE DROP 0.005% 2.5 ML BOTTLE EACHEYE SCH (22:01)
[2019-03-16] VITALS (7 sets, daily range): BP systolic 116–137; BP diastolic 58–92
[2019-03-16] MEDS: REGLAN GT SCH ×4 (00:18→17:18)
[2019-03-16] MEDS: SIMETHICONE SUSP 40 MG/0.6 ML BOTTLE GT SCH ×4 (00:19→17:18)
[2019-03-16] MEDS: BLOOD SUGAR DIAGNOSTIC 1 EACH STRIP IN SCH ×4 (00:19→17:18)
[2019-03-16] MEDS: INSULIN REGULAR, HUMAN 100 UNIT/ML 10 ML VIAL SQ SCH ×4 (00:25→17:19)
[2019-03-16] MEDS: IPRATROPIUM NEB FS 0.5 MG/2.5 ML AMPUL.NEB IH SCH ×4 (02:04→19:37)
[2019-03-16] MEDS: PROSTAT (PYXIS) 30 ML UDC GT SCH ×3 (05:10→21:35)
[2019-03-16] MEDS: OMEPRAZOLE 20 MG CAPSULE.DR GT SCH (05:12)
[2019-03-16] MEDS: LACOSAMIDE ORAL SOLN 50 MG/5 ML UDC GT SCH ×2 (05:14→17:18)
--- NOTE | 2019-03-16 05:54 | NUR ---
Patient off unit to [facility] for Dialysis treatment. Left via ambulance in stable condition.
[2019-03-16] MEDS: LINAGLIPTIN 5 MG TABLET GT SCH (09:00)
[2019-03-16] MEDS: CARVEDILOL 6.25 MG TABLET GT SCH ×2 (09:00→21:35)
[2019-03-16] MEDS: POTASSIUM CHLORIDE 20 MEQ POWDER PACKET GT SCH (09:00)
[2019-03-16] MEDS: FINASTERIDE (5 MG) 5 MG TABLET GT SCH (09:00)
[2019-03-16] MEDS: HYDROGEN PEROXIDE 480 ML BOTTLE TP SCH ×2 (09:00→21:36)
[2019-03-16] MEDS: DORZOLAMIDE OPTH 2% 10 ML BOTTLE EACHEYE SCH ×3 (09:00→17:18)
[2019-03-16] MEDS: ASCORBIC ACID 500 MG TABLET GT SCH (09:00)
[2019-03-16] MEDS: ACIDOPHILUS/BULGARICUS 1 EACH TAB.CHEW GT SCH (09:00)
[2019-03-16] MEDS: MINERAL OIL/PETROL OINT 396 GM JAR TP SCH ×2 (11:32→21:35)
[2019-03-16] MEDS: CHLORHEXIDINE GLUCONATE 15 ML UDC MM SCH ×2 (11:32→21:35)
[2019-03-16] MEDS: Z GUARD REMEDY 4 OZ OINT TP SCH ×2 (11:32→21:36)
[2019-03-16] MEDS: VITS A AND D/WHITE PET/LANOLIN 5 GM PACKET TP SCH ×2 (11:33→21:36)
[2019-03-16] MEDS: VANCOMYCIN POST DIALYSIS 500MG IV SCH ×2 (13:00)
[2019-03-16] MEDS: CEFEPIME 0.5 GM in IV D5W 50 ML IV SCH (15:29)
[2019-03-16] MEDS: TAMSULOSIN 0.4 MG CAP.SR.24H PO SCH (21:36)
[2019-03-16] MEDS: ATORVASTATIN 10 MG TABLET GT SCH (21:36)
[2019-03-16] MEDS: LATANOPROST EYE DROP 0.005% 2.5 ML BOTTLE EACHEYE SCH (21:36)
[2019-03-17] VITALS (7 sets, daily range): BP systolic 92–138; BP diastolic 46–77
[2019-03-17] MEDS: REGLAN GT SCH ×4 (00:14→17:05)
[2019-03-17] MEDS: BLOOD SUGAR DIAGNOSTIC 1 EACH STRIP IN SCH ×4 (00:14→17:40)
[2019-03-17] MEDS: SIMETHICONE SUSP 40 MG/0.6 ML BOTTLE GT SCH ×4 (00:14→17:05)
[2019-03-17] MEDS: INSULIN REGULAR, HUMAN 100 UNIT/ML 10 ML VIAL SQ SCH ×4 (00:15→17:42)
[2019-03-17] MEDS: NEPRO 1,000 ML BOTTLE GT PRN (01:30)
[2019-03-17] MEDS: IPRATROPIUM NEB FS 0.5 MG/2.5 ML AMPUL.NEB IH SCH ×4 (01:45→20:24)
[2019-03-17] MEDS: OMEPRAZOLE 20 MG CAPSULE.DR GT SCH (05:27)
[2019-03-17] MEDS: PROSTAT (PYXIS) 30 ML UDC GT SCH ×3 (05:27→21:00)
[2019-03-17] MEDS: LACOSAMIDE ORAL SOLN 50 MG/5 ML UDC GT SCH ×2 (05:27→17:06)
[2019-03-17] MEDS: BISACODYL SUPP (10 MG) 10 MG/SUPP.RECT SUPP.RECT RC PRN (06:42)
[2019-03-17] MEDS: ASCORBIC ACID 500 MG TABLET GT SCH (09:00)
[2019-03-17] MEDS: FINASTERIDE (5 MG) 5 MG TABLET GT SCH (09:00)
[2019-03-17] MEDS: POTASSIUM CHLORIDE 20 MEQ POWDER PACKET GT SCH (09:00)
[2019-03-17] MEDS: CARVEDILOL 6.25 MG TABLET GT SCH ×2 (09:00→21:00)
[2019-03-17] MEDS: ACIDOPHILUS/BULGARICUS 1 EACH TAB.CHEW GT SCH (09:00)
[2019-03-17] MEDS: VITS A AND D/WHITE PET/LANOLIN 5 GM PACKET TP SCH ×2 (09:00→21:00)
[2019-03-17] MEDS: HYDROGEN PEROXIDE 480 ML BOTTLE TP SCH ×2 (09:00→21:00)
[2019-03-17] MEDS: LINAGLIPTIN 5 MG TABLET GT SCH (09:00)
[2019-03-17] MEDS: MINERAL OIL/PETROL OINT 396 GM JAR TP SCH ×2 (09:00→21:00)
[2019-03-17] MEDS: Z GUARD REMEDY 4 OZ OINT TP SCH ×2 (09:00→21:00)
[2019-03-17] MEDS: DORZOLAMIDE OPTH 2% 10 ML BOTTLE EACHEYE SCH ×3 (09:00→17:05)
[2019-03-17] MEDS: CHLORHEXIDINE GLUCONATE 15 ML UDC MM SCH ×2 (09:00→21:00)
[2019-03-17] MEDS: CEFEPIME 0.5 GM in IV D5W 50 ML IV SCH (16:50)
[2019-03-17] MEDS: ATORVASTATIN 10 MG TABLET GT SCH (22:17)
[2019-03-17] MEDS: TAMSULOSIN 0.4 MG CAP.SR.24H PO SCH (22:17)
[2019-03-17] MEDS: LATANOPROST EYE DROP 0.005% 2.5 ML BOTTLE EACHEYE SCH (22:17)
[2019-03-18] VITALS (7 sets, daily range): BP systolic 113–151; BP diastolic 56–78
--- NOTE | 2019-03-18 00:01 | NUR ---
PT PLACED ON VENT PER MD'S ORDERED. VENT PLUGGED INTO RED OUTLET , ALARMS ON AND AUDIBLE. AMBU BAG AT BEDSIDE. CUFF INFLATED. NO RESPIRATORY DISTRESS NOTED AT THIS TIME. WILL CONTINUE TO MONITOR THE PT.
[2019-03-18] MEDS: REGLAN GT SCH ×4 (00:35→17:09)
[2019-03-18] MEDS: BLOOD SUGAR DIAGNOSTIC 1 EACH STRIP IN SCH ×4 (00:35→17:36)
[2019-03-18] MEDS: SIMETHICONE SUSP 40 MG/0.6 ML BOTTLE GT SCH ×4 (00:35→17:09)
[2019-03-18] MEDS: INSULIN REGULAR, HUMAN 100 UNIT/ML 10 ML VIAL SQ SCH ×4 (00:36→17:38)
[2019-03-18] MEDS: IPRATROPIUM NEB FS 0.5 MG/2.5 ML AMPUL.NEB IH SCH ×4 (01:47→19:34)
[2019-03-18] MEDS: PROSTAT (PYXIS) 30 ML UDC GT SCH ×3 (05:47→20:01)
[2019-03-18] MEDS: OMEPRAZOLE 20 MG CAPSULE.DR GT SCH (05:47)
[2019-03-18] MEDS: LACOSAMIDE ORAL SOLN 50 MG/5 ML UDC GT SCH ×2 (05:48→17:09)
[2019-03-18] MEDS: DORZOLAMIDE OPTH 2% 10 ML BOTTLE EACHEYE SCH ×3 (09:22→17:09)
[2019-03-18] MEDS: CARVEDILOL 6.25 MG TABLET GT SCH ×2 (09:24→20:01)
[2019-03-18] MEDS: LINAGLIPTIN 5 MG TABLET GT SCH (09:51)
[2019-03-18] MEDS: Z GUARD REMEDY 4 OZ OINT TP SCH ×2 (09:51→20:01)
[2019-03-18] MEDS: VITS A AND D/WHITE PET/LANOLIN 5 GM PACKET TP SCH ×2 (09:51→20:01)
[2019-03-18] MEDS: POTASSIUM CHLORIDE 20 MEQ POWDER PACKET GT SCH (09:51)
[2019-03-18] MEDS: MINERAL OIL/PETROL OINT 396 GM JAR TP SCH ×2 (09:51→20:01)
[2019-03-18] MEDS: ACIDOPHILUS/BULGARICUS 1 EACH TAB.CHEW GT SCH (09:51)
[2019-03-18] MEDS: ASCORBIC ACID 500 MG TABLET GT SCH (09:51)
[2019-03-18] MEDS: CHLORHEXIDINE GLUCONATE 15 ML UDC MM SCH ×2 (09:51→20:01)
[2019-03-18] MEDS: FINASTERIDE (5 MG) 5 MG TABLET GT SCH (09:51)
[2019-03-18] MEDS: HYDROGEN PEROXIDE 480 ML BOTTLE TP SCH ×2 (12:27→20:01)
[2019-03-18] MEDS: CEFEPIME 0.5 GM in IV D5W 50 ML IV SCH (16:00)
[2019-03-18] MEDS: NEPRO 1,000 ML BOTTLE GT PRN (16:13)
[2019-03-18] MEDS: TAMSULOSIN 0.4 MG CAP.SR.24H PO SCH (21:13)
[2019-03-18] MEDS: LATANOPROST EYE DROP 0.005% 2.5 ML BOTTLE EACHEYE SCH (21:13)
[2019-03-18] MEDS: ATORVASTATIN 10 MG TABLET GT SCH (21:13)
[2019-03-19] MEDS: REGLAN GT SCH ×5 (00:21→23:31)
[2019-03-19] MEDS: INSULIN REGULAR, HUMAN 100 UNIT/ML 10 ML VIAL SQ SCH ×5 (00:21→23:32)
[2019-03-19] MEDS: BLOOD SUGAR DIAGNOSTIC 1 EACH STRIP IN SCH ×5 (00:21→23:31)
[2019-03-19] MEDS: SIMETHICONE SUSP 40 MG/0.6 ML BOTTLE GT SCH ×5 (00:21→23:31)
[2019-03-19 01:00] VITALS: BP 113/56
[2019-03-19] MEDS: IPRATROPIUM NEB FS 0.5 MG/2.5 ML AMPUL.NEB IH SCH ×4 (01:09→19:33)
[2019-03-19 05:00] VITALS: BP 122/61
[2019-03-19] MEDS: OMEPRAZOLE 20 MG CAPSULE.DR GT SCH (05:25)
[2019-03-19] MEDS: PROSTAT (PYXIS) 30 ML UDC GT SCH ×3 (05:25→21:52)
[2019-03-19] MEDS: LACOSAMIDE ORAL SOLN 50 MG/5 ML UDC GT SCH ×2 (05:25→18:19)
[2019-03-19] MEDS: ASCORBIC ACID 500 MG TABLET GT SCH (09:00)
[2019-03-19] MEDS: FINASTERIDE (5 MG) 5 MG TABLET GT SCH (09:00)
[2019-03-19] MEDS: CARVEDILOL 6.25 MG TABLET GT SCH ×2 (09:00→21:52)
[2019-03-19] MEDS: CHLORHEXIDINE GLUCONATE 15 ML UDC MM SCH ×2 (09:00→21:52)
[2019-03-19] MEDS: POTASSIUM CHLORIDE 20 MEQ POWDER PACKET GT SCH (09:00)
[2019-03-19] MEDS: DORZOLAMIDE OPTH 2% 10 ML BOTTLE EACHEYE SCH ×3 (09:00→17:00)
[2019-03-19] MEDS: LINAGLIPTIN 5 MG TABLET GT SCH (09:00)
[2019-03-19] MEDS: ACIDOPHILUS/BULGARICUS 1 EACH TAB.CHEW GT SCH (09:00)
[2019-03-19] MEDS: HYDROGEN PEROXIDE 480 ML BOTTLE TP SCH ×2 (09:24→21:00)
[2019-03-19] MEDS: MINERAL OIL/PETROL OINT 396 GM JAR TP SCH ×2 (11:30→21:52)
[2019-03-19] MEDS: VITS A AND D/WHITE PET/LANOLIN 5 GM PACKET TP SCH ×2 (11:30→21:52)
[2019-03-19] MEDS: Z GUARD REMEDY 4 OZ OINT TP SCH ×2 (11:30→21:52)
[2019-03-19] MEDS: VANCOMYCIN POST DIALYSIS 500MG IV SCH ×2 (12:00)
[2019-03-19 13:00] VITALS: BP 131/76
--- NOTE | 2019-03-19 15:00 | NUR ---
Seen by BRANDO Lozano. She ordered to extend Cefepime and Vancomycin for another [address] Johns.
--- NOTE | 2019-03-19 15:04 | NUR ---
11 am--SW contacted and spoke with patients responsible republican, his cousin-Jamila Arriaga [phone] to invite her to attend the IDT being held this Friday March 22, 2019 at 12:30-1:30pm. Jamila stated that she cannot attend as shes at work during that time and that the patients Son, Jose may be able to attend. CHANI attempted to reach pt.'s son, Jose Johns [phone] without success and left a voicemail. CHANI will continue attempts to reach Jose. 3pm-- SW re-attempted to get in contact with Jose Johns [phone] without success and left voicemail listing IDT meeting time and location.
[2019-03-19] MEDS: NEPRO 1,000 ML BOTTLE GT PRN (17:00)
[2019-03-19 18:00] VITALS: BP 136/77
[2019-03-19 20:33] VITALS: BP 125/99
[2019-03-19] MEDS: CEFEPIME 1 GM in IV D5W 50 ML IV SCH (21:00)
[2019-03-19 21:49] VITALS: BP 125/99
[2019-03-19] MEDS: LATANOPROST EYE DROP 0.005% 2.5 ML BOTTLE EACHEYE SCH (21:52)
[2019-03-19] MEDS: TAMSULOSIN 0.4 MG CAP.SR.24H PO SCH (21:52)
[2019-03-19] MEDS: ATORVASTATIN 10 MG TABLET GT SCH (21:52)
[2019-03-20] VITALS (7 sets, daily range): BP systolic 92–132; BP diastolic 48–80
[2019-03-20] MEDS: IPRATROPIUM NEB FS 0.5 MG/2.5 ML AMPUL.NEB IH SCH ×4 (02:08→20:58)
[2019-03-20] MEDS: OMEPRAZOLE 20 MG CAPSULE.DR GT SCH (05:37)
[2019-03-20] MEDS: REGLAN GT SCH ×4 (05:37→23:19)
[2019-03-20] MEDS: SIMETHICONE SUSP 40 MG/0.6 ML BOTTLE GT SCH ×4 (05:37→23:19)
[2019-03-20] MEDS: PROSTAT (PYXIS) 30 ML UDC GT SCH ×3 (05:37→21:26)
[2019-03-20] MEDS: LACOSAMIDE ORAL SOLN 50 MG/5 ML UDC GT SCH ×2 (05:39→18:15)
[2019-03-20] MEDS: BLOOD SUGAR DIAGNOSTIC 1 EACH STRIP IN SCH ×4 (06:09→23:19)
[2019-03-20] MEDS: INSULIN REGULAR, HUMAN 100 UNIT/ML 10 ML VIAL SQ SCH ×4 (06:10→23:22)
[2019-03-20] MEDS: CARVEDILOL 6.25 MG TABLET GT SCH ×2 (09:00→21:26)
[2019-03-20] MEDS: HYDROGEN PEROXIDE 480 ML BOTTLE TP SCH ×2 (09:00→21:00)
[2019-03-20] MEDS: MINERAL OIL/PETROL OINT 396 GM JAR TP SCH ×2 (09:00→21:26)
[2019-03-20] MEDS: Z GUARD REMEDY 4 OZ OINT TP SCH ×2 (09:00→21:26)
[2019-03-20] MEDS: VITS A AND D/WHITE PET/LANOLIN 5 GM PACKET TP SCH ×2 (09:00→21:26)
[2019-03-20] MEDS: DORZOLAMIDE OPTH 2% 10 ML BOTTLE EACHEYE SCH ×3 (09:52→17:00)
[2019-03-20] MEDS: ASCORBIC ACID 500 MG TABLET GT SCH (09:54)
[2019-03-20] MEDS: ACIDOPHILUS/BULGARICUS 1 EACH TAB.CHEW GT SCH (09:54)
[2019-03-20] MEDS: POTASSIUM CHLORIDE 20 MEQ POWDER PACKET GT SCH (09:54)
[2019-03-20] MEDS: LINAGLIPTIN 5 MG TABLET GT SCH (09:54)
[2019-03-20] MEDS: FINASTERIDE (5 MG) 5 MG TABLET GT SCH (09:54)
[2019-03-20] MEDS: CHLORHEXIDINE GLUCONATE 15 ML UDC MM SCH ×2 (09:54→21:26)
[2019-03-20] MEDS: NEPRO 1,000 ML BOTTLE GT PRN (11:00)
--- NOTE | 2019-03-20 15:42 | NUR ---
Spoke with Bipin from [facility] IV department and said he is recommending the same continuance therapy for Maxipime 500mg Q 24 hours and will send dose for tonight. Dr. Swenson, ID came by to assess patient's L toe he said the patient still need a couple more days of ATB. Endorsed.
[2019-03-20] MEDS: CEFEPIME 1 GM in IV D5W 50 ML IV SCH (21:21)
[2019-03-20] MEDS: ATORVASTATIN 10 MG TABLET GT SCH (21:26)
[2019-03-20] MEDS: LATANOPROST EYE DROP 0.005% 2.5 ML BOTTLE EACHEYE SCH (21:26)
[2019-03-20] MEDS: TAMSULOSIN 0.4 MG CAP.SR.24H PO SCH (21:26)
[2019-03-21 01:00] VITALS: BP 122/66
[2019-03-21] MEDS: IPRATROPIUM NEB FS 0.5 MG/2.5 ML AMPUL.NEB IH SCH ×4 (02:08→19:46)
[2019-03-21] MEDS: OMEPRAZOLE 20 MG CAPSULE.DR GT SCH (05:35)
[2019-03-21] MEDS: REGLAN GT SCH ×4 (05:35→23:57)
[2019-03-21] MEDS: LACOSAMIDE ORAL SOLN 50 MG/5 ML UDC GT SCH ×2 (05:35→17:58)
[2019-03-21] MEDS: SIMETHICONE SUSP 40 MG/0.6 ML BOTTLE GT SCH ×4 (05:35→23:57)
[2019-03-21] MEDS: PROSTAT (PYXIS) 30 ML UDC GT SCH ×3 (05:35→21:13)
[2019-03-21] MEDS: BLOOD SUGAR DIAGNOSTIC 1 EACH STRIP IN SCH ×4 (05:45→23:58)
[2019-03-21] MEDS: INSULIN REGULAR, HUMAN 100 UNIT/ML 10 ML VIAL SQ SCH ×4 (05:46→23:58)
[2019-03-21 05:57] VITALS: BP 116/74
--- NOTE | 2019-03-21 06:05 | NUR ---
Pt picked by ambulance crew for hemo dialysis at [facility],Stable condition,vitals within normal.
[2019-03-21] MEDS: LINAGLIPTIN 5 MG TABLET GT SCH (09:00)
[2019-03-21] MEDS: ASCORBIC ACID 500 MG TABLET GT SCH (09:00)
[2019-03-21] MEDS: ACIDOPHILUS/BULGARICUS 1 EACH TAB.CHEW GT SCH (09:00)
[2019-03-21] MEDS: CARVEDILOL 6.25 MG TABLET GT SCH ×2 (09:00→21:13)
[2019-03-21] MEDS: POTASSIUM CHLORIDE 20 MEQ POWDER PACKET GT SCH (09:00)
[2019-03-21] MEDS: DORZOLAMIDE OPTH 2% 10 ML BOTTLE EACHEYE SCH ×3 (09:00→17:58)
[2019-03-21] MEDS: HYDROGEN PEROXIDE 480 ML BOTTLE TP SCH ×2 (09:00→21:13)
[2019-03-21] MEDS: CHLORHEXIDINE GLUCONATE 15 ML UDC MM SCH ×2 (09:00→21:13)
[2019-03-21] MEDS: FINASTERIDE (5 MG) 5 MG TABLET GT SCH (09:00)
--- NOTE | 2019-03-21 10:30 | NUR ---
Resident came back from dialysis per [facility] with EMT. Awake, no s/s of resp distress. Trach secured and midline. Perma cath on left upper chest intact, dressing clean and dry. Transferred to bed and made comfortable. Will continue to monitor.
[2019-03-21] MEDS: MINERAL OIL/PETROL OINT 396 GM JAR TP SCH ×2 (11:30→21:13)
[2019-03-21] MEDS: VITS A AND D/WHITE PET/LANOLIN 5 GM PACKET TP SCH ×2 (11:30→21:13)
[2019-03-21] MEDS: Z GUARD REMEDY 4 OZ OINT TP SCH ×2 (11:30→21:13)
[2019-03-21] MEDS: NEPRO 1,000 ML BOTTLE GT PRN (11:45)
[2019-03-21] MEDS: VANCOMYCIN 500 MG in IV D5W 100 ML IV SCH ×2 (12:00→12:50)
[2019-03-21 13:00] VITALS: BP 121/58
[2019-03-21 18:54] VITALS: BP 114/64
[2019-03-21 19:46] VITALS: BP 112/55
[2019-03-21 21:00] VITALS: BP 112/55
[2019-03-21] MEDS: CEFEPIME 1 GM in IV D5W 50 ML IV SCH (21:00)
--- NOTE | 2019-03-21 21:00 | NUR ---
Seen by Nilam Pineda no new orders.
[2019-03-21] MEDS: LATANOPROST EYE DROP 0.005% 2.5 ML BOTTLE EACHEYE SCH (21:13)
[2019-03-21] MEDS: ATORVASTATIN 10 MG TABLET GT SCH (21:13)
[2019-03-21] MEDS: TAMSULOSIN 0.4 MG CAP.SR.24H PO SCH (21:13)
[2019-03-22] VITALS (8 sets, daily range): BP systolic 118–134; BP diastolic 50–67
[2019-03-22] MEDS: IPRATROPIUM NEB FS 0.5 MG/2.5 ML AMPUL.NEB IH SCH ×4 (01:06→20:08)
[2019-03-22] MEDS: NEPRO 1,000 ML BOTTLE GT PRN ×2 (03:08→17:55)
[2019-03-22] MEDS: SIMETHICONE SUSP 40 MG/0.6 ML BOTTLE GT SCH ×3 (05:18→17:20)
[2019-03-22] MEDS: REGLAN GT SCH ×3 (05:18→17:20)
[2019-03-22] MEDS: PROSTAT (PYXIS) 30 ML UDC GT SCH ×3 (05:18→20:50)
[2019-03-22] MEDS: OMEPRAZOLE 20 MG CAPSULE.DR GT SCH (05:18)
[2019-03-22] MEDS: BLOOD SUGAR DIAGNOSTIC 1 EACH STRIP IN SCH ×3 (05:19→17:21)
[2019-03-22] MEDS: LACOSAMIDE ORAL SOLN 50 MG/5 ML UDC GT SCH ×2 (05:19→17:21)
[2019-03-22] MEDS: INSULIN REGULAR, HUMAN 100 UNIT/ML 10 ML VIAL SQ SCH ×3 (05:20→17:23)
[2019-03-22] MEDS: DORZOLAMIDE OPTH 2% 10 ML BOTTLE EACHEYE SCH ×3 (08:21→17:19)
[2019-03-22] MEDS: CARVEDILOL 6.25 MG TABLET GT SCH ×2 (08:22→20:50)
[2019-03-22] MEDS: ACIDOPHILUS/BULGARICUS 1 EACH TAB.CHEW GT SCH (08:23)
[2019-03-22] MEDS: POTASSIUM CHLORIDE 20 MEQ POWDER PACKET GT SCH (08:23)
[2019-03-22] MEDS: ASCORBIC ACID 500 MG TABLET GT SCH (08:24)
[2019-03-22] MEDS: FINASTERIDE (5 MG) 5 MG TABLET GT SCH (08:24)
[2019-03-22] MEDS: LINAGLIPTIN 5 MG TABLET GT SCH (08:24)
[2019-03-22] MEDS: MINERAL OIL/PETROL OINT 396 GM JAR TP SCH ×2 (08:25→20:50)
[2019-03-22] MEDS: HYDROGEN PEROXIDE 480 ML BOTTLE TP SCH ×3 (08:25→21:00)
[2019-03-22] MEDS: Z GUARD REMEDY 4 OZ OINT TP SCH ×2 (08:25→20:50)
[2019-03-22] MEDS: VITS A AND D/WHITE PET/LANOLIN 5 GM PACKET TP SCH ×2 (08:25→20:50)
[2019-03-22] MEDS: CHLORHEXIDINE GLUCONATE 15 ML UDC MM SCH ×2 (09:08→20:50)
--- NOTE | 2019-03-22 09:22 | NUR ---
Seen by BRANDO Lozano, NNO given, said to continue with current ATB until the duration it was previously ordered.
--- NOTE | 2019-03-22 14:18 | NUR ---
INTERDISCIPLINARY PLAN OF CARE CONFERENCE was held today. The patients responsible republican/Son, Jose Johns [phone] could not attend nor participate via phone conference but is informed. Charge Nurse reported on patients EKG, contact isolation precaution and antibiotic regimen for great right toe infection. Dr. Ramírez and interdisciplinary team discussed the current plan of care in detail. Current orders as well as treatments and medications were reviewed. See other disciplines IDT notes for further details.
--- NOTE | 2019-03-22 17:24 | NUR ---
Left a message to Dr. Johns, resident's son regarding new order from Dr. Dotson to use iodosorb to the R first metatarsal wound, however patient has allergy to Iodine and iodine containing products. Awaiting for call back from resident's son if he wants to continue with this treatment or will notify the doctor for alternative treatment.
[2019-03-22] MEDS: CEFEPIME 1 GM in IV D5W 50 ML IV SCH (21:00)
[2019-03-22] MEDS: TAMSULOSIN 0.4 MG CAP.SR.24H PO SCH (22:39)
[2019-03-22] MEDS: ATORVASTATIN 10 MG TABLET GT SCH (22:39)
[2019-03-22] MEDS: LATANOPROST EYE DROP 0.005% 2.5 ML BOTTLE EACHEYE SCH (22:39)
--- NOTE | 2019-03-22 22:42 | NUR ---
Patient's son Dr. Johns called. charge nurse informed him regarding the new order of Iodosorb gel to Right 1st metatarsal treatment. he stated that the allergy to iodine is not a "true allergy" and it's ok to give the Iodosorb.
[2019-03-23] VITALS (8 sets, daily range): BP systolic 119–151; BP diastolic 53–70
[2019-03-23] MEDS: SIMETHICONE SUSP 40 MG/0.6 ML BOTTLE GT SCH ×5 (00:18→23:42)
[2019-03-23] MEDS: REGLAN GT SCH ×5 (00:18→23:42)
[2019-03-23] MEDS: BLOOD SUGAR DIAGNOSTIC 1 EACH STRIP IN SCH ×5 (00:18→23:42)
[2019-03-23] MEDS: INSULIN REGULAR, HUMAN 100 UNIT/ML 10 ML VIAL SQ SCH ×5 (00:18→23:57)
[2019-03-23] MEDS: IPRATROPIUM NEB FS 0.5 MG/2.5 ML AMPUL.NEB IH SCH ×4 (00:57→19:40)
[2019-03-23] MEDS: LACOSAMIDE ORAL SOLN 50 MG/5 ML UDC GT SCH ×2 (05:11→18:14)
[2019-03-23] MEDS: OMEPRAZOLE 20 MG CAPSULE.DR GT SCH (05:11)
[2019-03-23] MEDS: PROSTAT (PYXIS) 30 ML UDC GT SCH ×3 (05:11→21:02)
--- NOTE | 2019-03-23 06:20 | NUR ---
Pt picked by ambulance CREW for hemo dialysis at [facility],Stable condition,vitals BP 124/53 77 15 98.0
[2019-03-23] MEDS: HYDROGEN PEROXIDE 480 ML BOTTLE TP SCH ×2 (09:00→20:55)
[2019-03-23] MEDS: MINERAL OIL/PETROL OINT 396 GM JAR TP SCH ×2 (11:00→20:55)
[2019-03-23] MEDS: Z GUARD REMEDY 4 OZ OINT TP SCH ×2 (11:00→20:55)
[2019-03-23] MEDS: FINASTERIDE (5 MG) 5 MG TABLET GT SCH (11:00)
[2019-03-23] MEDS: VITS A AND D/WHITE PET/LANOLIN 5 GM PACKET TP SCH ×2 (11:00→20:55)
[2019-03-23] MEDS: DORZOLAMIDE OPTH 2% 10 ML BOTTLE EACHEYE SCH ×3 (11:00→17:00)
[2019-03-23] MEDS: ACIDOPHILUS/BULGARICUS 1 EACH TAB.CHEW GT SCH (11:00)
[2019-03-23] MEDS: ASCORBIC ACID 500 MG TABLET GT SCH (11:00)
[2019-03-23] MEDS: CARVEDILOL 6.25 MG TABLET GT SCH ×2 (11:00→20:55)
[2019-03-23] MEDS: CADEXOMER IODINE 40 GM TUBE TP SCH (11:00)
[2019-03-23] MEDS: CHLORHEXIDINE GLUCONATE 15 ML UDC MM SCH ×2 (11:00→20:59)
[2019-03-23] MEDS: LINAGLIPTIN 5 MG TABLET GT SCH (11:00)
[2019-03-23] MEDS: POTASSIUM CHLORIDE 20 MEQ POWDER PACKET GT SCH (11:00)
[2019-03-23] MEDS: VANCOMYCIN 500 MG in IV D5W 100 ML IV SCH (12:50)
[2019-03-23] MEDS: CEFEPIME 1 GM in IV D5W 50 ML IV SCH (21:00)
[2019-03-23] MEDS: TAMSULOSIN 0.4 MG CAP.SR.24H PO SCH (21:03)
[2019-03-23] MEDS: LATANOPROST EYE DROP 0.005% 2.5 ML BOTTLE EACHEYE SCH (21:03)
[2019-03-23] MEDS: ATORVASTATIN 10 MG TABLET GT SCH (21:03)
[2019-03-24] VITALS (8 sets, daily range): BP systolic 108–129; BP diastolic 58–71
[2019-03-24] MEDS: IPRATROPIUM NEB FS 0.5 MG/2.5 ML AMPUL.NEB IH SCH ×4 (01:30→20:48)
[2019-03-24] MEDS: OMEPRAZOLE 20 MG CAPSULE.DR GT SCH (05:17)
[2019-03-24] MEDS: SIMETHICONE SUSP 40 MG/0.6 ML BOTTLE GT SCH ×3 (05:17→17:42)
[2019-03-24] MEDS: PROSTAT (PYXIS) 30 ML UDC GT SCH ×3 (05:17→20:47)
[2019-03-24] MEDS: REGLAN GT SCH ×3 (05:17→17:42)
[2019-03-24] MEDS: LACOSAMIDE ORAL SOLN 50 MG/5 ML UDC GT SCH ×2 (05:26→17:41)
[2019-03-24] MEDS: BLOOD SUGAR DIAGNOSTIC 1 EACH STRIP IN SCH ×3 (06:10→17:40)
[2019-03-24] MEDS: INSULIN REGULAR, HUMAN 100 UNIT/ML 10 ML VIAL SQ SCH ×3 (06:12→17:44)
[2019-03-24] MEDS: DORZOLAMIDE OPTH 2% 10 ML BOTTLE EACHEYE SCH ×3 (08:26→17:39)
[2019-03-24] MEDS: POTASSIUM CHLORIDE 20 MEQ POWDER PACKET GT SCH (08:27)
[2019-03-24] MEDS: CARVEDILOL 6.25 MG TABLET GT SCH ×2 (08:27→20:47)
[2019-03-24] MEDS: FINASTERIDE (5 MG) 5 MG TABLET GT SCH (08:27)
[2019-03-24] MEDS: ACIDOPHILUS/BULGARICUS 1 EACH TAB.CHEW GT SCH (08:27)
[2019-03-24] MEDS: ASCORBIC ACID 500 MG TABLET GT SCH (08:28)
[2019-03-24] MEDS: LINAGLIPTIN 5 MG TABLET GT SCH (08:28)
[2019-03-24] MEDS: CHLORHEXIDINE GLUCONATE 15 ML UDC MM SCH ×2 (08:28→20:47)
[2019-03-24] MEDS: VITS A AND D/WHITE PET/LANOLIN 5 GM PACKET TP SCH ×2 (08:28→20:47)
[2019-03-24] MEDS: HYDROGEN PEROXIDE 480 ML BOTTLE TP SCH ×2 (08:29→23:10)
[2019-03-24] MEDS: CADEXOMER IODINE 40 GM TUBE TP SCH (08:29)
[2019-03-24] MEDS: Z GUARD REMEDY 4 OZ OINT TP SCH ×2 (08:29→20:47)
[2019-03-24] MEDS: MINERAL OIL/PETROL OINT 396 GM JAR TP SCH ×2 (08:30→20:47)
--- NOTE | 2019-03-24 11:30 | NUR ---
Seen and examined by Dr. Garduno, made aware that GT was out and replaced, with new order for KUB to check for placement. Order carried out.
[2019-03-24] MEDS: NEPRO 1,000 ML BOTTLE GT PRN (12:24)
--- NOTE | 2019-03-24 12:43 | NUR ---
RN NOTES-- PT WAS NOTED WITH GT 22FR OUT OF PLACE. NOTIFIED CHARGE NURSE. INSERTED NEW GT 22FR, TOLERATED WELL. AUSCULTATED PLACEMENT WITH 2RNS, XRAY TO FOLLOW.
[2019-03-24] MEDS ORDERED: DIATR MEGLU/DIATRIZOATE SODIUM 30 ML BOTTLE (GASTROGRAPHIN) ONE (13:27)
--- NOTE | 2019-03-24 14:39 | NUR ---
RN NOTES-- PER XRAY RESULTS, GTUBE IN PLACE. RESUMED FEEDING.
[2019-03-24] MEDS: CEFEPIME 1 GM in IV D5W 50 ML IV SCH (21:00)
[2019-03-24] MEDS: LATANOPROST EYE DROP 0.005% 2.5 ML BOTTLE EACHEYE SCH (21:09)
[2019-03-24] MEDS: ATORVASTATIN 10 MG TABLET GT SCH (21:09)
[2019-03-24] MEDS: TAMSULOSIN 0.4 MG CAP.SR.24H PO SCH (21:09)
[2019-03-25] VITALS (7 sets, daily range): BP systolic 94–118; BP diastolic 55–71
[2019-03-25] MEDS: SIMETHICONE SUSP 40 MG/0.6 ML BOTTLE GT SCH ×5 (00:26→23:51)
[2019-03-25] MEDS: BLOOD SUGAR DIAGNOSTIC 1 EACH STRIP IN SCH ×5 (00:26→23:51)
[2019-03-25] MEDS: REGLAN GT SCH ×5 (00:26→23:51)
[2019-03-25] MEDS: INSULIN REGULAR, HUMAN 100 UNIT/ML 10 ML VIAL SQ SCH ×5 (00:27→23:52)
[2019-03-25] MEDS: IPRATROPIUM NEB FS 0.5 MG/2.5 ML AMPUL.NEB IH SCH ×4 (02:04→19:32)
[2019-03-25] MEDS: OMEPRAZOLE 20 MG CAPSULE.DR GT SCH (05:42)
[2019-03-25] MEDS: LACOSAMIDE ORAL SOLN 50 MG/5 ML UDC GT SCH ×2 (05:42→17:16)
[2019-03-25] MEDS: PROSTAT (PYXIS) 30 ML UDC GT SCH ×3 (05:42→20:36)
[2019-03-25] MEDS: CARVEDILOL 6.25 MG TABLET GT SCH ×2 (08:11→20:36)
[2019-03-25] MEDS: DORZOLAMIDE OPTH 2% 10 ML BOTTLE EACHEYE SCH ×3 (08:11→17:16)
[2019-03-25] MEDS: FINASTERIDE (5 MG) 5 MG TABLET GT SCH (08:13)
[2019-03-25] MEDS: ACIDOPHILUS/BULGARICUS 1 EACH TAB.CHEW GT SCH (08:13)
[2019-03-25] MEDS: POTASSIUM CHLORIDE 20 MEQ POWDER PACKET GT SCH (08:13)
[2019-03-25] MEDS: ASCORBIC ACID 500 MG TABLET GT SCH (08:14)
[2019-03-25] MEDS: CHLORHEXIDINE GLUCONATE 15 ML UDC MM SCH ×2 (08:14→20:36)
[2019-03-25] MEDS: LINAGLIPTIN 5 MG TABLET GT SCH (08:14)
[2019-03-25] MEDS: Z GUARD REMEDY 4 OZ OINT TP SCH ×2 (09:00→20:37)
[2019-03-25] MEDS: HYDROGEN PEROXIDE 480 ML BOTTLE TP SCH ×2 (09:00→20:37)
[2019-03-25] MEDS: MINERAL OIL/PETROL OINT 396 GM JAR TP SCH ×2 (09:00→20:37)
[2019-03-25] MEDS: VITS A AND D/WHITE PET/LANOLIN 5 GM PACKET TP SCH ×2 (09:00→20:37)
[2019-03-25] MEDS: CADEXOMER IODINE 40 GM TUBE TP SCH (09:00)
[2019-03-25] MEDS: CEFEPIME 1 GM in IV D5W 50 ML IV SCH (21:00)
[2019-03-25] MEDS: TAMSULOSIN 0.4 MG CAP.SR.24H PO SCH (21:14)
[2019-03-25] MEDS: ATORVASTATIN 10 MG TABLET GT SCH (21:14)
[2019-03-25] MEDS: LATANOPROST EYE DROP 0.005% 2.5 ML BOTTLE EACHEYE SCH (21:14)
[2019-03-26 01:00] VITALS: BP 97/61
[2019-03-26] MEDS: IPRATROPIUM NEB FS 0.5 MG/2.5 ML AMPUL.NEB IH SCH ×4 (01:34→19:59)
[2019-03-26 05:00] VITALS: BP 110/58
[2019-03-26] MEDS: PROSTAT (PYXIS) 30 ML UDC GT SCH ×3 (05:11→21:04)
[2019-03-26] MEDS: REGLAN GT SCH ×4 (05:12→23:31)
[2019-03-26] MEDS: SIMETHICONE SUSP 40 MG/0.6 ML BOTTLE GT SCH ×4 (05:13→23:31)
[2019-03-26] MEDS: OMEPRAZOLE 20 MG CAPSULE.DR GT SCH (05:13)
[2019-03-26] MEDS: LACOSAMIDE ORAL SOLN 50 MG/5 ML UDC GT SCH ×2 (05:14→17:58)
[2019-03-26] MEDS: BLOOD SUGAR DIAGNOSTIC 1 EACH STRIP IN SCH ×4 (05:17→23:31)
[2019-03-26] MEDS: INSULIN REGULAR, HUMAN 100 UNIT/ML 10 ML VIAL SQ SCH ×4 (05:18→23:32)
[2019-03-26] MEDS: DORZOLAMIDE OPTH 2% 10 ML BOTTLE EACHEYE SCH ×3 (09:00→17:58)
[2019-03-26] MEDS: CADEXOMER IODINE 40 GM TUBE TP SCH (09:00)
[2019-03-26] MEDS: HYDROGEN PEROXIDE 480 ML BOTTLE TP SCH ×2 (09:00→21:00)
[2019-03-26] MEDS: POTASSIUM CHLORIDE 20 MEQ POWDER PACKET GT SCH (09:00)
[2019-03-26] MEDS: ASCORBIC ACID 500 MG TABLET GT SCH (09:00)
[2019-03-26] MEDS: CARVEDILOL 6.25 MG TABLET GT SCH ×2 (09:00→21:04)
[2019-03-26] MEDS: CHLORHEXIDINE GLUCONATE 15 ML UDC MM SCH ×2 (09:00→21:04)
[2019-03-26] MEDS: FINASTERIDE (5 MG) 5 MG TABLET GT SCH (09:00)
[2019-03-26] MEDS: ACIDOPHILUS/BULGARICUS 1 EACH TAB.CHEW GT SCH (09:00)
[2019-03-26] MEDS: LINAGLIPTIN 5 MG TABLET GT SCH (09:00)
--- NOTE | 2019-03-26 10:20 | NUR ---
Resident came back from dialysis per [facility] with EMT. Awake, no s/s of resp. distress/ discomfort. Trach secured and midline. Perma cath. intact with clean and dry dressing. No bleeding noted. Transferred to bed and made comfortable. Will continue to monitor.
[2019-03-26] MEDS: VITS A AND D/WHITE PET/LANOLIN 5 GM PACKET TP SCH ×2 (11:00→21:05)
[2019-03-26] MEDS: MINERAL OIL/PETROL OINT 396 GM JAR TP SCH ×2 (11:00→21:04)
[2019-03-26] MEDS: Z GUARD REMEDY 4 OZ OINT TP SCH ×2 (11:00→21:05)
[2019-03-26] MEDS: VANCOMYCIN 500 MG in IV D5W 100 ML IV SCH (12:00)
[2019-03-26 13:00] VITALS: BP 121/55
--- NOTE | 2019-03-26 16:57 | NUR ---
Informed pt's son Nat that Dr Dotson said to follow the recommendation of PT to not use AFO boots. AFO boots was not recommended because it is not functional, it may cause pain and there is a risk for skin breakdown.
[2019-03-26 17:35] VITALS: BP 116/55
[2019-03-26 20:17] VITALS: BP 129/66
[2019-03-26] MEDS: ATORVASTATIN 10 MG TABLET GT SCH (21:05)
[2019-03-26] MEDS: TAMSULOSIN 0.4 MG CAP.SR.24H PO SCH (21:05)
[2019-03-26] MEDS: LATANOPROST EYE DROP 0.005% 2.5 ML BOTTLE EACHEYE SCH (21:05)
[2019-03-26 21:51] VITALS: BP 129/66
--- NOTE | 2019-03-26 22:00 | NUR ---
RN NOTES Seen by MICHEAL Connors STAIN APPLICATOR, with no new orders.
[2019-03-27] VITALS (8 sets, daily range): BP systolic 112–128; BP diastolic 52–66
[2019-03-27] MEDS: IPRATROPIUM NEB FS 0.5 MG/2.5 ML AMPUL.NEB IH SCH ×4 (01:30→19:55)
[2019-03-27] MEDS: REGLAN GT SCH ×4 (05:31→23:06)
[2019-03-27] MEDS: SIMETHICONE SUSP 40 MG/0.6 ML BOTTLE GT SCH ×4 (05:31→23:06)
[2019-03-27] MEDS: PROSTAT (PYXIS) 30 ML UDC GT SCH ×3 (05:31→21:09)
[2019-03-27] MEDS: LACOSAMIDE ORAL SOLN 50 MG/5 ML UDC GT SCH ×2 (05:32→17:49)
[2019-03-27] MEDS: OMEPRAZOLE 20 MG CAPSULE.DR GT SCH (05:32)
[2019-03-27] MEDS: NEPRO 1,000 ML BOTTLE GT PRN ×2 (05:32→22:27)
[2019-03-27] MEDS: BLOOD SUGAR DIAGNOSTIC 1 EACH STRIP IN SCH ×4 (06:14→23:06)
[2019-03-27] MEDS: INSULIN REGULAR, HUMAN 100 UNIT/ML 10 ML VIAL SQ SCH ×4 (06:15→23:07)
[2019-03-27] MEDS: HYDROGEN PEROXIDE 480 ML BOTTLE TP SCH ×2 (08:55→21:06)
[2019-03-27] MEDS: DORZOLAMIDE OPTH 2% 10 ML BOTTLE EACHEYE SCH ×3 (08:56→17:49)
[2019-03-27] MEDS: ACIDOPHILUS/BULGARICUS 1 EACH TAB.CHEW GT SCH (08:57)
[2019-03-27] MEDS: FINASTERIDE (5 MG) 5 MG TABLET GT SCH (08:57)
[2019-03-27] MEDS: CARVEDILOL 6.25 MG TABLET GT SCH ×2 (08:57→21:09)
[2019-03-27] MEDS: POTASSIUM CHLORIDE 20 MEQ POWDER PACKET GT SCH (08:57)
[2019-03-27] MEDS: ASCORBIC ACID 500 MG TABLET GT SCH (08:57)
[2019-03-27] MEDS: LINAGLIPTIN 5 MG TABLET GT SCH (08:57)
[2019-03-27] MEDS: CHLORHEXIDINE GLUCONATE 15 ML UDC MM SCH ×2 (08:57→21:09)
[2019-03-27] MEDS: Z GUARD REMEDY 4 OZ OINT TP SCH ×2 (09:00→21:09)
[2019-03-27] MEDS: VITS A AND D/WHITE PET/LANOLIN 5 GM PACKET TP SCH ×2 (09:00→21:09)
[2019-03-27] MEDS: CADEXOMER IODINE 40 GM TUBE TP SCH (09:00)
[2019-03-27] MEDS: MINERAL OIL/PETROL OINT 396 GM JAR TP SCH ×2 (09:00→21:09)
[2019-03-27] MEDS: TAMSULOSIN 0.4 MG CAP.SR.24H PO SCH (21:09)
[2019-03-27] MEDS: ATORVASTATIN 10 MG TABLET GT SCH (21:09)
[2019-03-27] MEDS: LATANOPROST EYE DROP 0.005% 2.5 ML BOTTLE EACHEYE SCH (21:09)
[2019-03-28] MEDS: IPRATROPIUM NEB FS 0.5 MG/2.5 ML AMPUL.NEB IH SCH ×4 (00:59→19:53)
[2019-03-28 01:00] VITALS: BP 128/60
[2019-03-28 05:09] VITALS: BP 128/61
[2019-03-28] MEDS: REGLAN GT SCH ×3 (05:13→17:35)
[2019-03-28] MEDS: BLOOD SUGAR DIAGNOSTIC 1 EACH STRIP IN SCH ×3 (05:13→17:35)
[2019-03-28] MEDS: SIMETHICONE SUSP 40 MG/0.6 ML BOTTLE GT SCH ×3 (05:13→17:35)
[2019-03-28] MEDS: OMEPRAZOLE 20 MG CAPSULE.DR GT SCH (05:13)
[2019-03-28] MEDS: PROSTAT (PYXIS) 30 ML UDC GT SCH ×3 (05:13→21:00)
[2019-03-28] MEDS: LACOSAMIDE ORAL SOLN 50 MG/5 ML UDC GT SCH ×2 (05:13→17:35)
[2019-03-28] MEDS: INSULIN REGULAR, HUMAN 100 UNIT/ML 10 ML VIAL SQ SCH ×3 (05:14→17:46)
[2019-03-28] MEDS: DORZOLAMIDE OPTH 2% 10 ML BOTTLE EACHEYE SCH ×3 (09:00→16:38)
[2019-03-28] MEDS: LINAGLIPTIN 5 MG TABLET GT SCH (09:00)
[2019-03-28] MEDS: POTASSIUM CHLORIDE 20 MEQ POWDER PACKET GT SCH (09:00)
[2019-03-28] MEDS: CARVEDILOL 6.25 MG TABLET GT SCH ×2 (09:00→21:00)
[2019-03-28] MEDS: FINASTERIDE (5 MG) 5 MG TABLET GT SCH (09:00)
[2019-03-28] MEDS: CHLORHEXIDINE GLUCONATE 15 ML UDC MM SCH ×2 (09:00→21:00)
[2019-03-28] MEDS: ASCORBIC ACID 500 MG TABLET GT SCH (09:00)
[2019-03-28] MEDS: ACIDOPHILUS/BULGARICUS 1 EACH TAB.CHEW GT SCH (09:00)
[2019-03-28] MEDS: MINERAL OIL/PETROL OINT 396 GM JAR TP SCH ×2 (10:30→21:00)
[2019-03-28] MEDS: CADEXOMER IODINE 40 GM TUBE TP SCH (10:30)
[2019-03-28] MEDS: VITS A AND D/WHITE PET/LANOLIN 5 GM PACKET TP SCH ×2 (10:30→21:00)
[2019-03-28] MEDS: Z GUARD REMEDY 4 OZ OINT TP SCH ×2 (10:30→21:00)
[2019-03-28] MEDS: HYDROGEN PEROXIDE 480 ML BOTTLE TP SCH ×2 (10:50→21:49)
[2019-03-28 13:00] VITALS: BP 133/63
[2019-03-28 17:00] VITALS: BP 128/59
[2019-03-28 20:01] VITALS: BP 108/57
[2019-03-28 21:00] VITALS: BP 108/47
[2019-03-28] MEDS: ACETAMINOPHEN 650 MG/20 ML UDC- SA PATIENTS-PAIN ONLY GT SCH (21:00)
[2019-03-28] MEDS: HYDROGEL DRESSING 90 GM TUBE TP SCH (21:00)
[2019-03-28] MEDS: LATANOPROST EYE DROP 0.005% 2.5 ML BOTTLE EACHEYE SCH (22:50)
[2019-03-28] MEDS: ATORVASTATIN 10 MG TABLET GT SCH (22:50)
[2019-03-28] MEDS: TAMSULOSIN 0.4 MG CAP.SR.24H PO SCH (22:50)
[2019-03-29] MEDS: SIMETHICONE SUSP 40 MG/0.6 ML BOTTLE GT SCH ×4 (00:04→17:36)
[2019-03-29] MEDS: REGLAN GT SCH ×4 (00:04→17:35)
[2019-03-29] MEDS: BLOOD SUGAR DIAGNOSTIC 1 EACH STRIP IN SCH ×4 (00:04→17:42)
[2019-03-29] MEDS: INSULIN REGULAR, HUMAN 100 UNIT/ML 10 ML VIAL SQ SCH ×4 (00:07→18:24)
[2019-03-29 01:00] VITALS: BP 115/66
[2019-03-29] MEDS: IPRATROPIUM NEB FS 0.5 MG/2.5 ML AMPUL.NEB IH SCH ×4 (01:06→20:01)
[2019-03-29 05:00] VITALS: BP 114/61
[2019-03-29] MEDS: PROSTAT (PYXIS) 30 ML UDC GT SCH ×3 (05:37→21:26)
[2019-03-29] MEDS: LACOSAMIDE ORAL SOLN 50 MG/5 ML UDC GT SCH ×2 (05:37→17:42)
[2019-03-29] MEDS: OMEPRAZOLE 20 MG CAPSULE.DR GT SCH (05:37)
[2019-03-29 07:29] VITALS: BP 106/75
[2019-03-29] MEDS: HYDROGEN PEROXIDE 480 ML BOTTLE TP SCH ×2 (07:45→21:00)
--- NOTE | 2019-03-29 08:05 | NUR ---
WOUND CARE CONSULT WOUND CARE RECEIVED CONSULT FOR OPEN AREAS ON SACRUM AND JOSE BUTTOCKS. WOUND CARE WILL DEFER CONSULT AND TREATMENT PLAN TO PLASTIC SURGICAL TEAM WHO ARE CURRENTLY FOLLOWING THIS PATIENT. ALL PRESSURE ULCER PREVENTION MEASURES CONTINUE TO BE IN PLACE. WILL SEE PRN.
[2019-03-29 09:00] VITALS: BP 104/55
[2019-03-29] MEDS: CADEXOMER IODINE 40 GM TUBE TP SCH (09:00)
[2019-03-29] MEDS: Z GUARD REMEDY 4 OZ OINT TP SCH ×2 (09:00→21:58)
[2019-03-29] MEDS: CHLORHEXIDINE GLUCONATE 15 ML UDC MM SCH ×2 (09:00→21:27)
[2019-03-29] MEDS: HYDROGEL DRESSING 90 GM TUBE TP SCH ×2 (09:00→21:58)
[2019-03-29] MEDS: NEOMY SULF/BACITRAC ZN/POLY 15 GM TUBE TP SCH ×2 (09:00→21:58)
[2019-03-29] MEDS: VITS A AND D/WHITE PET/LANOLIN 5 GM PACKET TP SCH ×2 (09:00→21:58)
[2019-03-29] MEDS: MINERAL OIL/PETROL OINT 396 GM JAR TP SCH ×2 (09:00→21:58)
[2019-03-29] MEDS: DORZOLAMIDE OPTH 2% 10 ML BOTTLE EACHEYE SCH ×3 (09:04→17:33)
[2019-03-29] MEDS: ACIDOPHILUS/BULGARICUS 1 EACH TAB.CHEW GT SCH (09:05)
[2019-03-29] MEDS: ACETAMINOPHEN 650 MG/20 ML UDC- SA PATIENTS-PAIN ONLY GT SCH ×2 (09:06→21:27)
[2019-03-29] MEDS: ASCORBIC ACID 500 MG TABLET GT SCH (09:06)
[2019-03-29] MEDS: CARVEDILOL 6.25 MG TABLET GT SCH ×2 (09:10→21:28)
[2019-03-29] MEDS: FINASTERIDE (5 MG) 5 MG TABLET GT SCH (09:11)
[2019-03-29] MEDS: POTASSIUM CHLORIDE 20 MEQ POWDER PACKET GT SCH (09:11)
[2019-03-29] MEDS: LINAGLIPTIN 5 MG TABLET GT SCH (09:12)
[2019-03-29] MEDS: NEPRO 1,000 ML BOTTLE GT PRN (09:17)
--- NOTE | 2019-03-29 16:14 | NUR ---
RT NOTE: RECEIVED TRACH PT ON ORDERED NOTED VENT SETTINGS. PLACED PT ON 28% COOL AEROSOL PER MD ORDER. NO RESPIRATORY DISTRESS NOTED. TRACH CHECKED SECURE AND PATENT. SXD AND LAVAGED PT Q ROUND AND NEEDED. TXS GIVEN ORDERED WITH NO ADVERSE REACTIONS NOTED. TRACH CARE DONE. SPARE TRACH AND AMBU BAG @ BEDSIDE.
[2019-03-29 21:05] VITALS: BP 131/57
[2019-03-29 21:25] VITALS: BP 131/57
[2019-03-29] MEDS: TAMSULOSIN 0.4 MG CAP.SR.24H PO SCH (21:27)
[2019-03-29] MEDS: LATANOPROST EYE DROP 0.005% 2.5 ML BOTTLE EACHEYE SCH (21:27)
[2019-03-29] MEDS: ATORVASTATIN 10 MG TABLET GT SCH (21:27)
[2019-03-30] VITALS (7 sets, daily range): BP systolic 97–134; BP diastolic 55–90
[2019-03-30] MEDS: REGLAN GT SCH ×5 (00:04→23:49)
[2019-03-30] MEDS: BLOOD SUGAR DIAGNOSTIC 1 EACH STRIP IN SCH ×5 (00:04→23:49)
[2019-03-30] MEDS: SIMETHICONE SUSP 40 MG/0.6 ML BOTTLE GT SCH ×5 (00:04→23:49)
[2019-03-30] MEDS: INSULIN REGULAR, HUMAN 100 UNIT/ML 10 ML VIAL SQ SCH ×5 (00:07→23:52)
[2019-03-30] MEDS: IPRATROPIUM NEB FS 0.5 MG/2.5 ML AMPUL.NEB IH SCH ×4 (01:39→19:25)
[2019-03-30] MEDS: OMEPRAZOLE 20 MG CAPSULE.DR GT SCH (05:12)
[2019-03-30] MEDS: LACOSAMIDE ORAL SOLN 50 MG/5 ML UDC GT SCH ×2 (05:12→18:17)
[2019-03-30] MEDS: PROSTAT (PYXIS) 30 ML UDC GT SCH ×3 (05:12→21:02)
--- NOTE | 2019-03-30 05:55 | NUR ---
Went out for dialysis at [facility] per [facility]. Stable vital signs. Appears comfortable. Trach secured and intact, on cool aeresol at 28% fio2. No signs of resp distress. All emergency equipment taken/ambu-bag and back up trach w/ pt. Jeremiah cath on left chest intact, with dry/clean dressing.
[2019-03-30] MEDS: ACETAMINOPHEN 650 MG/20 ML UDC- SA PATIENTS-PAIN ONLY GT SCH ×2 (09:00→21:02)
[2019-03-30] MEDS: NEOMY SULF/BACITRAC ZN/POLY 15 GM TUBE TP SCH ×2 (10:25→21:36)
[2019-03-30] MEDS: ACIDOPHILUS/BULGARICUS 1 EACH TAB.CHEW GT SCH (10:25)
[2019-03-30] MEDS: HYDROGEN PEROXIDE 480 ML BOTTLE TP SCH ×2 (10:25→21:00)
[2019-03-30] MEDS: LINAGLIPTIN 5 MG TABLET GT SCH (10:25)
[2019-03-30] MEDS: CARVEDILOL 6.25 MG TABLET GT SCH ×2 (10:25→21:00)
[2019-03-30] MEDS: CADEXOMER IODINE 40 GM TUBE TP SCH (10:25)
[2019-03-30] MEDS: FINASTERIDE (5 MG) 5 MG TABLET GT SCH (10:25)
[2019-03-30] MEDS: ASCORBIC ACID 500 MG TABLET GT SCH (10:25)
[2019-03-30] MEDS: DORZOLAMIDE OPTH 2% 10 ML BOTTLE EACHEYE SCH ×3 (10:25→17:00)
[2019-03-30] MEDS: Z GUARD REMEDY 4 OZ OINT TP SCH ×2 (10:25→21:36)
[2019-03-30] MEDS: HYDROGEL DRESSING 90 GM TUBE TP SCH ×2 (10:25→21:36)
[2019-03-30] MEDS: POTASSIUM CHLORIDE 20 MEQ POWDER PACKET GT SCH (10:25)
[2019-03-30] MEDS: VITS A AND D/WHITE PET/LANOLIN 5 GM PACKET TP SCH ×2 (10:25→21:36)
[2019-03-30] MEDS: MINERAL OIL/PETROL OINT 396 GM JAR TP SCH ×2 (10:25→21:36)
[2019-03-30] MEDS: CHLORHEXIDINE GLUCONATE 15 ML UDC MM SCH ×2 (10:25→21:02)
--- NOTE | 2019-03-30 11:40 | NUR ---
Returned from dialysis in stable condition, no s/s of distress. Placed him back to back and change immediately by BROADCAST OPERATIONS TECHNICIAN due to bowel incontinency, wound treatment done.
[2019-03-30] MEDS: IPRATROPIUM NEB FS 0.5 MG/2.5 ML AMPUL.NEB IH PRN (12:14)
[2019-03-30] MEDS: NEPRO 1,000 ML BOTTLE GT PRN (12:17)
[2019-03-30] MEDS: ATORVASTATIN 10 MG TABLET GT SCH (21:03)
[2019-03-30] MEDS: LATANOPROST EYE DROP 0.005% 2.5 ML BOTTLE EACHEYE SCH (21:03)
[2019-03-30] MEDS: TAMSULOSIN 0.4 MG CAP.SR.24H PO SCH (21:03)
[2019-03-31] VITALS (7 sets, daily range): BP systolic 105–131; BP diastolic 51–69
[2019-03-31] MEDS: IPRATROPIUM NEB FS 0.5 MG/2.5 ML AMPUL.NEB IH SCH ×4 (00:43→19:58)
[2019-03-31] MEDS: OMEPRAZOLE 20 MG CAPSULE.DR GT SCH (05:10)
[2019-03-31] MEDS: SIMETHICONE SUSP 40 MG/0.6 ML BOTTLE GT SCH ×3 (05:10→17:27)
[2019-03-31] MEDS: LACOSAMIDE ORAL SOLN 50 MG/5 ML UDC GT SCH ×2 (05:10→17:27)
[2019-03-31] MEDS: PROSTAT (PYXIS) 30 ML UDC GT SCH ×3 (05:10→20:49)
[2019-03-31] MEDS: NEPRO 1,000 ML BOTTLE GT PRN (05:10)
[2019-03-31] MEDS: REGLAN GT SCH ×3 (05:10→17:27)
[2019-03-31] MEDS: BLOOD SUGAR DIAGNOSTIC 1 EACH STRIP IN SCH ×3 (05:36→17:27)
[2019-03-31] MEDS: INSULIN REGULAR, HUMAN 100 UNIT/ML 10 ML VIAL SQ SCH ×3 (05:38→17:30)
[2019-03-31] MEDS: MINERAL OIL/PETROL OINT 396 GM JAR TP SCH ×2 (09:00→20:51)
[2019-03-31] MEDS: HYDROGEL DRESSING 90 GM TUBE TP SCH ×2 (09:00→20:52)
[2019-03-31] MEDS: HYDROGEN PEROXIDE 480 ML BOTTLE TP SCH ×2 (09:00→21:00)
[2019-03-31] MEDS: CHLORHEXIDINE GLUCONATE 15 ML UDC MM SCH ×2 (09:00→20:51)
[2019-03-31] MEDS: FINASTERIDE (5 MG) 5 MG TABLET GT SCH (09:00)
[2019-03-31] MEDS: Z GUARD REMEDY 4 OZ OINT TP SCH ×2 (09:00→20:52)
[2019-03-31] MEDS: ASCORBIC ACID 500 MG TABLET GT SCH (09:00)
[2019-03-31] MEDS: CARVEDILOL 6.25 MG TABLET GT SCH ×2 (09:00→20:49)
[2019-03-31] MEDS: LINAGLIPTIN 5 MG TABLET GT SCH (09:00)
[2019-03-31] MEDS: NEOMY SULF/BACITRAC ZN/POLY 15 GM TUBE TP SCH ×2 (09:00→20:52)
[2019-03-31] MEDS: ACETAMINOPHEN 650 MG/20 ML UDC- SA PATIENTS-PAIN ONLY GT SCH ×2 (09:00→20:51)
[2019-03-31] MEDS: CADEXOMER IODINE 40 GM TUBE TP SCH (09:00)
[2019-03-31] MEDS: ACIDOPHILUS/BULGARICUS 1 EACH TAB.CHEW GT SCH (09:00)
[2019-03-31] MEDS: DORZOLAMIDE OPTH 2% 10 ML BOTTLE EACHEYE SCH ×3 (09:00→17:27)
[2019-03-31] MEDS: POTASSIUM CHLORIDE 20 MEQ POWDER PACKET GT SCH (09:00)
[2019-03-31] MEDS: VITS A AND D/WHITE PET/LANOLIN 5 GM PACKET TP SCH ×2 (09:00→20:52)
--- NOTE | 2019-03-31 15:00 | NUR ---
Seen and examined by PASTE MIXER LIQUID Arlyn Hanks, NNO given.
[2019-03-31] MEDS: LATANOPROST EYE DROP 0.005% 2.5 ML BOTTLE EACHEYE SCH (22:23)
[2019-03-31] MEDS: ATORVASTATIN 10 MG TABLET GT SCH (22:23)
[2019-03-31] MEDS: TAMSULOSIN 0.4 MG CAP.SR.24H PO SCH (22:23)
[2019-04-01] VITALS (7 sets, daily range): BP systolic 99–132; BP diastolic 51–65
[2019-04-01] MEDS: SIMETHICONE SUSP 40 MG/0.6 ML BOTTLE GT SCH ×4 (00:26→17:00)
[2019-04-01] MEDS: REGLAN GT SCH ×4 (00:26→17:00)
[2019-04-01] MEDS: BLOOD SUGAR DIAGNOSTIC 1 EACH STRIP IN SCH ×4 (00:26→18:25)
[2019-04-01] MEDS: INSULIN REGULAR, HUMAN 100 UNIT/ML 10 ML VIAL SQ SCH ×4 (00:28→18:28)
[2019-04-01] MEDS: NEPRO 1,000 ML BOTTLE GT PRN ×2 (00:30→20:59)
[2019-04-01] MEDS: IPRATROPIUM NEB FS 0.5 MG/2.5 ML AMPUL.NEB IH SCH ×4 (02:11→19:29)
[2019-04-01] MEDS: PROSTAT (PYXIS) 30 ML UDC GT SCH ×3 (05:29→20:15)
[2019-04-01] MEDS: OMEPRAZOLE 20 MG CAPSULE.DR GT SCH (05:30)
[2019-04-01] MEDS: LACOSAMIDE ORAL SOLN 50 MG/5 ML UDC GT SCH ×2 (05:33→17:00)
[2019-04-01] MEDS: LINAGLIPTIN 5 MG TABLET GT SCH (09:00)
[2019-04-01] MEDS: HYDROGEL DRESSING 90 GM TUBE TP SCH ×2 (09:00→20:23)
[2019-04-01] MEDS: CHLORHEXIDINE GLUCONATE 15 ML UDC MM SCH ×2 (09:00→20:23)
[2019-04-01] MEDS: Z GUARD REMEDY 4 OZ OINT TP SCH ×2 (09:00→20:23)
[2019-04-01] MEDS: NEOMY SULF/BACITRAC ZN/POLY 15 GM TUBE TP SCH ×2 (09:00→20:23)
[2019-04-01] MEDS: ASCORBIC ACID 500 MG TABLET GT SCH (09:00)
[2019-04-01] MEDS: MINERAL OIL/PETROL OINT 396 GM JAR TP SCH ×2 (09:00→20:23)
[2019-04-01] MEDS: HYDROGEN PEROXIDE 480 ML BOTTLE TP SCH ×2 (09:00→21:00)
[2019-04-01] MEDS: FINASTERIDE (5 MG) 5 MG TABLET GT SCH (09:00)
[2019-04-01] MEDS: POTASSIUM CHLORIDE 20 MEQ POWDER PACKET GT SCH (09:00)
[2019-04-01] MEDS: ACETAMINOPHEN 650 MG/20 ML UDC- SA PATIENTS-PAIN ONLY GT SCH ×2 (09:00→20:16)
[2019-04-01] MEDS: CADEXOMER IODINE 40 GM TUBE TP SCH (09:00)
[2019-04-01] MEDS: VITS A AND D/WHITE PET/LANOLIN 5 GM PACKET TP SCH ×2 (09:00→20:23)
[2019-04-01] MEDS: CARVEDILOL 6.25 MG TABLET GT SCH ×2 (09:00→20:15)
[2019-04-01] MEDS: DORZOLAMIDE OPTH 2% 10 ML BOTTLE EACHEYE SCH ×3 (09:00→16:59)
[2019-04-01] MEDS: ACIDOPHILUS/BULGARICUS 1 EACH TAB.CHEW GT SCH (09:00)
--- NOTE | 2019-04-01 09:51 | NUR ---
CHANI received automated phone call from Dr. Lora optometry office [phone] to remind CHANI of annual eye exam for resident. CHANI attempted to schedule optometry appointment for resident but the person who does scheduling was not in office yet. CHANI will follow up at a later date.
--- NOTE | 2019-04-01 11:36 | NUR ---
CHANI received called from corporate receptionistKimberly from Dr. Lora optometry office [phone]. Per Kimberly, CHANI to fax patient's referral to [phone]. Kimberly stated she would call CHANI back when she had an appointment time set up. CHANI faxed face sheet over and will await call from Kimberly.
[2019-04-01] MEDS: LATANOPROST EYE DROP 0.005% 2.5 ML BOTTLE EACHEYE SCH (21:23)
[2019-04-01] MEDS: ATORVASTATIN 10 MG TABLET GT SCH (21:23)
[2019-04-01] MEDS: TAMSULOSIN 0.4 MG CAP.SR.24H PO SCH (21:24)
[2019-04-02] MEDS: REGLAN GT SCH ×4 (00:46→18:16)
[2019-04-02] MEDS: BLOOD SUGAR DIAGNOSTIC 1 EACH STRIP IN SCH ×4 (00:46→18:16)
[2019-04-02] MEDS: SIMETHICONE SUSP 40 MG/0.6 ML BOTTLE GT SCH ×4 (00:46→18:16)
[2019-04-02] MEDS: INSULIN REGULAR, HUMAN 100 UNIT/ML 10 ML VIAL SQ SCH ×4 (00:48→18:18)
[2019-04-02] MEDS: IPRATROPIUM NEB FS 0.5 MG/2.5 ML AMPUL.NEB IH SCH ×4 (02:01→19:37)
[2019-04-02 03:39] VITALS: BP 119/54
[2019-04-02] MEDS: PROSTAT (PYXIS) 30 ML UDC GT SCH ×3 (05:09→20:09)
[2019-04-02] MEDS: LACOSAMIDE ORAL SOLN 50 MG/5 ML UDC GT SCH ×2 (05:10→18:16)
[2019-04-02] MEDS: OMEPRAZOLE 20 MG CAPSULE.DR GT SCH (05:10)
[2019-04-02 05:59] VITALS: BP 118/65
[2019-04-02] MEDS: POTASSIUM CHLORIDE 20 MEQ POWDER PACKET GT SCH (09:00)
[2019-04-02] MEDS: LINAGLIPTIN 5 MG TABLET GT SCH (09:00)
[2019-04-02] MEDS: ASCORBIC ACID 500 MG TABLET GT SCH (09:00)
[2019-04-02] MEDS: HYDROGEN PEROXIDE 480 ML BOTTLE TP SCH ×2 (09:00→21:00)
[2019-04-02] MEDS: ACIDOPHILUS/BULGARICUS 1 EACH TAB.CHEW GT SCH (09:00)
[2019-04-02] MEDS: DORZOLAMIDE OPTH 2% 10 ML BOTTLE EACHEYE SCH ×3 (09:00→16:48)
[2019-04-02] MEDS: ACETAMINOPHEN 650 MG/20 ML UDC- SA PATIENTS-PAIN ONLY GT SCH ×2 (09:00→20:10)
[2019-04-02] MEDS: MINERAL OIL/PETROL OINT 396 GM JAR TP SCH ×2 (09:00→20:10)
[2019-04-02] MEDS: CHLORHEXIDINE GLUCONATE 15 ML UDC MM SCH ×2 (09:00→20:10)
[2019-04-02] MEDS: CARVEDILOL 6.25 MG TABLET GT SCH ×2 (09:00→20:08)
[2019-04-02] MEDS: NEOMY SULF/BACITRAC ZN/POLY 15 GM TUBE TP SCH ×2 (09:00→20:10)
[2019-04-02] MEDS: FINASTERIDE (5 MG) 5 MG TABLET GT SCH (09:00)
[2019-04-02] MEDS: CADEXOMER IODINE 40 GM TUBE TP SCH (11:30)
[2019-04-02] MEDS: HYDROGEL DRESSING 90 GM TUBE TP SCH ×2 (11:30→20:10)
[2019-04-02] MEDS: Z GUARD REMEDY 4 OZ OINT TP SCH ×2 (11:30→20:10)
[2019-04-02] MEDS: VITS A AND D/WHITE PET/LANOLIN 5 GM PACKET TP SCH ×2 (11:30→20:10)
--- NOTE | 2019-04-02 11:35 | NUR ---
Invitation to Family Support Group: CHANI called patients responsible republican /Son, Jose Johns [phone] to invite them to attend the family support group being held tomorrow April 03, 2019 from 11 am-12pm in the old admin. conference room in the first floor. However, the call went to voicemail and CHANI left a detailed voicemail with afore mentioned information and CHANI callback number. Addendum: 04/02/19 at 1411 by DODIE WILDE Patients Son, Jose Johns [phone] called CHANI back and left voicemail stating he will be attending the Family Support group tomorrow April 03, 2019 from 11 am-12 pm. No action required.
[2019-04-02] MEDS ORDERED: DIATR MEGLU/DIATRIZOATE SODIUM 30 ML BOTTLE (GASTROGRAPHIN) ONE (13:33)
--- NOTE | 2019-04-02 15:50 | NUR ---
Pt's G-tube came out, balloon was deflated. G-tube was replaced with the same size. Received order to do KUB. Relayed KUB result to Dr Garduno. He said it is fine to use the G-tube. Addendum: 04/02/19 at 1723 by MAGDA LOBO RN Notified son.
[2019-04-02 17:44] VITALS: BP 159/58
[2019-04-02 20:03] VITALS: BP 110/75
[2019-04-02 21:13] VITALS: BP 110/75
[2019-04-02] MEDS: TAMSULOSIN 0.4 MG CAP.SR.24H PO SCH (21:29)
[2019-04-02] MEDS: ATORVASTATIN 10 MG TABLET GT SCH (21:29)
[2019-04-02] MEDS: LATANOPROST EYE DROP 0.005% 2.5 ML BOTTLE EACHEYE SCH (21:29)
[2019-04-03] VITALS (8 sets, daily range): BP systolic 102–150; BP diastolic 35–79
[2019-04-03] MEDS: REGLAN GT SCH ×5 (00:47→23:51)
[2019-04-03] MEDS: SIMETHICONE SUSP 40 MG/0.6 ML BOTTLE GT SCH ×5 (00:48→23:51)
[2019-04-03] MEDS: BLOOD SUGAR DIAGNOSTIC 1 EACH STRIP IN SCH ×5 (00:48→23:51)
[2019-04-03] MEDS: INSULIN REGULAR, HUMAN 100 UNIT/ML 10 ML VIAL SQ SCH ×5 (00:49→23:53)
[2019-04-03] MEDS: IPRATROPIUM NEB FS 0.5 MG/2.5 ML AMPUL.NEB IH SCH ×4 (01:53→19:59)
[2019-04-03] MEDS: NEPRO 1,000 ML BOTTLE GT PRN ×2 (03:09→18:56)
[2019-04-03] MEDS: PROSTAT (PYXIS) 30 ML UDC GT SCH ×3 (05:51→21:26)
[2019-04-03] MEDS: OMEPRAZOLE 20 MG CAPSULE.DR GT SCH (05:53)
[2019-04-03] MEDS: LACOSAMIDE ORAL SOLN 50 MG/5 ML UDC GT SCH ×2 (05:54→17:24)
[2019-04-03] MEDS: HYDROGEN PEROXIDE 480 ML BOTTLE TP SCH ×2 (08:41→21:13)
[2019-04-03] MEDS: DORZOLAMIDE OPTH 2% 10 ML BOTTLE EACHEYE SCH ×3 (08:46→17:33)
[2019-04-03] MEDS: LINAGLIPTIN 5 MG TABLET GT SCH (08:47)
[2019-04-03] MEDS: CARVEDILOL 6.25 MG TABLET GT SCH ×2 (08:47→21:25)
[2019-04-03] MEDS: ACIDOPHILUS/BULGARICUS 1 EACH TAB.CHEW GT SCH (08:47)
[2019-04-03] MEDS: FINASTERIDE (5 MG) 5 MG TABLET GT SCH (08:47)
[2019-04-03] MEDS: POTASSIUM CHLORIDE 20 MEQ POWDER PACKET GT SCH (08:47)
[2019-04-03] MEDS: ACETAMINOPHEN 650 MG/20 ML UDC- SA PATIENTS-PAIN ONLY GT SCH ×2 (08:48→21:26)
[2019-04-03] MEDS: Z GUARD REMEDY 4 OZ OINT TP SCH ×2 (08:48→21:55)
[2019-04-03] MEDS: ASCORBIC ACID 500 MG TABLET GT SCH (08:48)
[2019-04-03] MEDS: MINERAL OIL/PETROL OINT 396 GM JAR TP SCH ×2 (08:48→21:55)
[2019-04-03] MEDS: CHLORHEXIDINE GLUCONATE 15 ML UDC MM SCH ×2 (08:48→21:26)
[2019-04-03] MEDS: VITS A AND D/WHITE PET/LANOLIN 5 GM PACKET TP SCH ×2 (08:49→21:55)
[2019-04-03] MEDS: HYDROGEL DRESSING 90 GM TUBE TP SCH ×2 (09:00→21:55)
[2019-04-03] MEDS: NEOMY SULF/BACITRAC ZN/POLY 15 GM TUBE TP SCH ×2 (09:00→21:55)
[2019-04-03] MEDS: CADEXOMER IODINE 40 GM TUBE TP SCH (09:00)
--- NOTE | 2019-04-03 15:35 | NUR ---
Family Support Group Note: Goal: Residents family will attend family support group held Wednesday, April 03, 2019 from 11 am-12 pm. Intervention: SW facilitated family support group. SW explained a social workers role in subacute and purpose of the family support group. SW met the family where theyre at and explored what family can do to address concerns. SW provided validation, used reflective listening, reinforced familys current support for resident as family visit resident daily. SW encouraged responsible alliance party to keep advocating for residents health care rights. SW explored whether the families concerns were detrimental in resident health or well-being. Response: Jose expressed understanding SW role and purpose of support group. Jose expressed concerns about pt. care and overall goal he has for pt. Jose expressed understanding that he can advocate on the patients behalf and that SW may assist in facilitating communication with nursing staff. Jose expressed understanding that IDT can supply him with professional recommendations regarding pt. care and rehabilitation and was agreeable to being more involved in IDT meetings to voice his goal for pt. Jose expressed that his concerns are not detrimental to the residents health or well-being and instead are preferences with care. Jose stated, this is a great hospital and there is always room for improvement with pt. care and on the family's part as well. Plan: Family will be invited to attend next family support Group held May 01, 2019 11 am-12 pm.
[2019-04-03] MEDS: ATORVASTATIN 10 MG TABLET GT SCH (21:26)
[2019-04-03] MEDS: LATANOPROST EYE DROP 0.005% 2.5 ML BOTTLE EACHEYE SCH (21:27)
[2019-04-03] MEDS: TAMSULOSIN 0.4 MG CAP.SR.24H PO SCH (21:27)
[2019-04-04 01:01] VITALS: BP 107/66
[2019-04-04] MEDS: IPRATROPIUM NEB FS 0.5 MG/2.5 ML AMPUL.NEB IH SCH ×5 (01:38→19:04)
[2019-04-04 05:13] VITALS: BP 118/55
[2019-04-04] MEDS: BLOOD SUGAR DIAGNOSTIC 1 EACH STRIP IN SCH ×3 (05:20→18:21)
[2019-04-04] MEDS: OMEPRAZOLE 20 MG CAPSULE.DR GT SCH (05:20)
[2019-04-04] MEDS: LACOSAMIDE ORAL SOLN 50 MG/5 ML UDC GT SCH ×2 (05:20→18:04)
[2019-04-04] MEDS: REGLAN GT SCH ×3 (05:20→18:04)
[2019-04-04] MEDS: PROSTAT (PYXIS) 30 ML UDC GT SCH ×3 (05:20→21:07)
[2019-04-04] MEDS: SIMETHICONE SUSP 40 MG/0.6 ML BOTTLE GT SCH ×3 (05:20→18:04)
[2019-04-04] MEDS: INSULIN REGULAR, HUMAN 100 UNIT/ML 10 ML VIAL SQ SCH ×3 (05:22→18:22)
--- NOTE | 2019-04-04 06:15 | NUR ---
Went out for dialysis at [facility] per [facility]. Stable vital signs. Appears calm and comfortable. Trach secured and intact. On cool aeresol at 28% fio2. No signs of respiratory distress. All emergency equipment taken/ambu-bag and back up trach w/ pt. Jeremiah cath on left chest intact, with dressing dry/clean.
[2019-04-04] MEDS: HYDROGEN PEROXIDE 480 ML BOTTLE TP SCH ×2 (08:11→21:00)
[2019-04-04] MEDS: DORZOLAMIDE OPTH 2% 10 ML BOTTLE EACHEYE SCH ×3 (09:00→17:00)
[2019-04-04] MEDS: CARVEDILOL 6.25 MG TABLET GT SCH ×2 (09:00→21:07)
[2019-04-04] MEDS: POTASSIUM CHLORIDE 20 MEQ POWDER PACKET GT SCH (09:00)
[2019-04-04] MEDS: FINASTERIDE (5 MG) 5 MG TABLET GT SCH (09:00)
[2019-04-04] MEDS: ACIDOPHILUS/BULGARICUS 1 EACH TAB.CHEW GT SCH (09:00)
[2019-04-04] MEDS: ACETAMINOPHEN 650 MG/20 ML UDC- SA PATIENTS-PAIN ONLY GT SCH ×2 (09:00→21:07)
[2019-04-04] MEDS: ASCORBIC ACID 500 MG TABLET GT SCH (09:00)
[2019-04-04] MEDS: LINAGLIPTIN 5 MG TABLET GT SCH (09:00)
[2019-04-04] MEDS: CHLORHEXIDINE GLUCONATE 15 ML UDC MM SCH ×2 (09:00→21:07)
[2019-04-04] MEDS: ACETAMINOPHEN 650 MG/20.3 ML UDC GT PRN (11:30)
[2019-04-04] MEDS: CADEXOMER IODINE 40 GM TUBE TP SCH (12:00)
[2019-04-04] MEDS: Z GUARD REMEDY 4 OZ OINT TP SCH ×2 (12:00→21:49)
[2019-04-04] MEDS: MINERAL OIL/PETROL OINT 396 GM JAR TP SCH ×2 (12:00→21:49)
[2019-04-04] MEDS: HYDROGEL DRESSING 90 GM TUBE TP SCH ×2 (12:00→21:49)
[2019-04-04] MEDS: NEOMY SULF/BACITRAC ZN/POLY 15 GM TUBE TP SCH ×2 (12:00→21:49)
[2019-04-04 13:00] VITALS: BP 120/60
--- NOTE | 2019-04-04 14:17 | NUR ---
Asked Dr Randy Martell to see pt and evaluate multiple blisters. Dr Randy Martell said pt has bullous pemphigus and to have manager hi evaluate pt for steroid use.
[2019-04-04 17:00] VITALS: BP 112/62
[2019-04-04] MEDS: NEPRO 1,000 ML BOTTLE GT PRN (18:04)
--- NOTE | 2019-04-04 19:19 | NUR ---
Seen by financial wellness coach Dr Jimenes. She said that since pt does not have any new closed blisters, pt's blisters are open and healing, she is not recommending Prednisone considering pt has a lot of comorbidities. She also said to just treat the open blisters with petrolatum and petrolatum dressing. Dr Jimenes aware that plastic surgeon Dr Randy Martell is already following pt and pt has treatment orders in place for open blisters (petrolatum dressing). Dr Jimenes said to just continue the treatment orders from plastic surgeon.
[2019-04-04 20:41] VITALS: BP 135/84
[2019-04-04] MEDS: TAMSULOSIN 0.4 MG CAP.SR.24H PO SCH (21:07)
[2019-04-04] MEDS: ATORVASTATIN 10 MG TABLET GT SCH (21:07)
[2019-04-04] MEDS: LATANOPROST EYE DROP 0.005% 2.5 ML BOTTLE EACHEYE SCH (21:07)
[2019-04-04 21:09] VITALS: BP 130/82
[2019-04-04] MEDS: VITAMINS A AND D 56.7 GM TUBE TP SCH (21:49)
[2019-04-05] VITALS (8 sets, daily range): BP systolic 105–136; BP diastolic 50–69
[2019-04-05] MEDS: SIMETHICONE SUSP 40 MG/0.6 ML BOTTLE GT SCH ×5 (00:24→23:47)
[2019-04-05] MEDS: BLOOD SUGAR DIAGNOSTIC 1 EACH STRIP IN SCH ×4 (00:24→18:04)
[2019-04-05] MEDS: REGLAN GT SCH ×5 (00:24→23:47)
[2019-04-05] MEDS: INSULIN REGULAR, HUMAN 100 UNIT/ML 10 ML VIAL SQ SCH ×4 (00:26→18:07)
[2019-04-05] MEDS: IPRATROPIUM NEB FS 0.5 MG/2.5 ML AMPUL.NEB IH SCH ×4 (01:15→20:07)
[2019-04-05] MEDS: LACOSAMIDE ORAL SOLN 50 MG/5 ML UDC GT SCH ×2 (05:37→18:04)
[2019-04-05] MEDS: OMEPRAZOLE 20 MG CAPSULE.DR GT SCH (05:37)
[2019-04-05] MEDS: PROSTAT (PYXIS) 30 ML UDC GT SCH ×3 (05:37→21:00)
[2019-04-05] MEDS: NEPRO 1,000 ML BOTTLE GT PRN ×2 (07:21→23:47)
[2019-04-05] MEDS ORDERED: TUBERCULIN,PURIF.PROT.DERIV. 5 TU/0.1 ML DISP.SYRIN ID SCH (09:00)
[2019-04-05] MEDS: MINERAL OIL/PETROL OINT 396 GM JAR TP SCH ×2 (09:00→21:55)
[2019-04-05] MEDS: HYDROGEL DRESSING 90 GM TUBE TP SCH ×2 (09:00→21:55)
[2019-04-05] MEDS: CADEXOMER IODINE 40 GM TUBE TP SCH (09:00)
[2019-04-05] MEDS: Z GUARD REMEDY 4 OZ OINT TP SCH ×2 (09:00→21:55)
[2019-04-05] MEDS: VITAMINS A AND D 56.7 GM TUBE TP SCH ×2 (09:00→21:55)
[2019-04-05] MEDS: NEOMY SULF/BACITRAC ZN/POLY 15 GM TUBE TP SCH ×2 (09:00→21:55)
[2019-04-05] MEDS: HYDROGEN PEROXIDE 480 ML BOTTLE TP SCH ×2 (09:13→20:48)
[2019-04-05] MEDS: DORZOLAMIDE OPTH 2% 10 ML BOTTLE EACHEYE SCH ×3 (09:20→17:12)
[2019-04-05] MEDS: CARVEDILOL 6.25 MG TABLET GT SCH ×2 (09:22→21:00)
[2019-04-05] MEDS: ACIDOPHILUS/BULGARICUS 1 EACH TAB.CHEW GT SCH (09:23)
[2019-04-05] MEDS: POTASSIUM CHLORIDE 20 MEQ POWDER PACKET GT SCH (09:23)
[2019-04-05] MEDS: FINASTERIDE (5 MG) 5 MG TABLET GT SCH (09:23)
[2019-04-05] MEDS: LINAGLIPTIN 5 MG TABLET GT SCH (09:24)
[2019-04-05] MEDS: ASCORBIC ACID 500 MG TABLET GT SCH (09:25)
[2019-04-05] MEDS: ACETAMINOPHEN 650 MG/20 ML UDC- SA PATIENTS-PAIN ONLY GT SCH ×2 (09:25→21:15)
[2019-04-05] MEDS: CHLORHEXIDINE GLUCONATE 15 ML UDC MM SCH ×2 (09:26→21:00)
[2019-04-05] MEDS: TAMSULOSIN 0.4 MG CAP.SR.24H PO SCH (22:31)
[2019-04-05] MEDS: LATANOPROST EYE DROP 0.005% 2.5 ML BOTTLE EACHEYE SCH (22:31)
[2019-04-05] MEDS: ATORVASTATIN 10 MG TABLET GT SCH (22:31)
[2019-04-06] VITALS (7 sets, daily range): BP systolic 96–128; BP diastolic 52–74
[2019-04-06] MEDS: BLOOD SUGAR DIAGNOSTIC 1 EACH STRIP IN SCH ×4 (00:02→17:23)
[2019-04-06] MEDS: INSULIN REGULAR, HUMAN 100 UNIT/ML 10 ML VIAL SQ SCH ×4 (00:04→18:11)
[2019-04-06] MEDS: IPRATROPIUM NEB FS 0.5 MG/2.5 ML AMPUL.NEB IH SCH ×4 (02:03→19:28)
[2019-04-06] MEDS: PROSTAT (PYXIS) 30 ML UDC GT SCH ×3 (05:10→21:59)
[2019-04-06] MEDS: LACOSAMIDE ORAL SOLN 50 MG/5 ML UDC GT SCH ×2 (05:10→17:23)
[2019-04-06] MEDS: SIMETHICONE SUSP 40 MG/0.6 ML BOTTLE GT SCH ×3 (05:10→17:23)
[2019-04-06] MEDS: OMEPRAZOLE 20 MG CAPSULE.DR GT SCH (05:10)
[2019-04-06] MEDS: REGLAN GT SCH ×3 (05:10→17:23)
--- NOTE | 2019-04-06 05:55 | NUR ---
Went out for dialysis via [facility]. Stable vital signs. Appears comfortable. Trach secured and intact. on cool aeresol at 28% fio2. No s/s of resp distress. All emergency equipment taken/ambu-bag and back up trach w/ pt. Jeremiah cath on left chest intact, with dry/clean dressing.
[2019-04-06] MEDS: POTASSIUM CHLORIDE 20 MEQ POWDER PACKET GT SCH (09:00)
[2019-04-06] MEDS: HYDROGEN PEROXIDE 480 ML BOTTLE TP SCH ×2 (09:00→19:29)
[2019-04-06] MEDS: ACETAMINOPHEN 650 MG/20 ML UDC- SA PATIENTS-PAIN ONLY GT SCH ×3 (09:00→23:00)
[2019-04-06] MEDS: DORZOLAMIDE OPTH 2% 10 ML BOTTLE EACHEYE SCH ×3 (09:00→16:57)
[2019-04-06] MEDS: MINERAL OIL/PETROL OINT 396 GM JAR TP SCH ×2 (09:00→21:00)
[2019-04-06] MEDS: ACIDOPHILUS/BULGARICUS 1 EACH TAB.CHEW GT SCH (09:00)
[2019-04-06] MEDS: HYDROGEL DRESSING 90 GM TUBE TP SCH ×2 (09:00→21:00)
[2019-04-06] MEDS: CARVEDILOL 6.25 MG TABLET GT SCH ×2 (09:00→21:59)
[2019-04-06] MEDS: LINAGLIPTIN 5 MG TABLET GT SCH (09:00)
[2019-04-06] MEDS: Z GUARD REMEDY 4 OZ OINT TP SCH ×2 (09:00→21:00)
[2019-04-06] MEDS: CHLORHEXIDINE GLUCONATE 15 ML UDC MM SCH ×2 (09:00→21:00)
[2019-04-06] MEDS: FINASTERIDE (5 MG) 5 MG TABLET GT SCH (09:00)
[2019-04-06] MEDS: ASCORBIC ACID 500 MG TABLET GT SCH (09:00)
[2019-04-06] MEDS: NEOMY SULF/BACITRAC ZN/POLY 15 GM TUBE TP SCH ×2 (09:00→21:00)
[2019-04-06] MEDS: VITAMINS A AND D 56.7 GM TUBE TP SCH ×2 (09:00→21:00)
[2019-04-06] MEDS: CADEXOMER IODINE 40 GM TUBE TP SCH (09:00)
[2019-04-06] MEDS ORDERED: DIATR MEGLU/DIATRIZOATE SODIUM 30 ML BOTTLE (GASTROGRAPHIN) ONE (18:07)
--- NOTE | 2019-04-06 18:10 | NUR ---
WHEN CHECKING RESIDENT'S BLOOD SUGAR NOTICED GTUBE CATHETER OUT WITH BALLOON DEFLATED. INSERTED A NEW GTUBE 20FR, INFLATED BALLOON WITH 20ML, PROCEDURE TOLERATED WELL. CHECKED FOR PLACEMENT. CHARGE NURSE AWARE, NOTIFIED MD AND ORDERED FOR XR KUB.
[2019-04-06] MEDS: ATORVASTATIN 10 MG TABLET GT SCH (22:02)
[2019-04-06] MEDS: LATANOPROST EYE DROP 0.005% 2.5 ML BOTTLE EACHEYE SCH (22:02)
[2019-04-06] MEDS: TAMSULOSIN 0.4 MG CAP.SR.24H PO SCH (22:03)
[2019-04-06] MEDS: NEPRO 1,000 ML BOTTLE GT PRN (23:59)
[2019-04-07] VITALS (7 sets, daily range): BP systolic 115–148; BP diastolic 62–85
[2019-04-07] MEDS: SIMETHICONE SUSP 40 MG/0.6 ML BOTTLE GT SCH ×5 (00:12→23:30)
[2019-04-07] MEDS: REGLAN GT SCH ×5 (00:12→23:31)
[2019-04-07] MEDS: BLOOD SUGAR DIAGNOSTIC 1 EACH STRIP IN SCH ×5 (00:12→23:24)
[2019-04-07] MEDS: INSULIN REGULAR, HUMAN 100 UNIT/ML 10 ML VIAL SQ SCH ×5 (00:13→23:28)
[2019-04-07] MEDS: IPRATROPIUM NEB FS 0.5 MG/2.5 ML AMPUL.NEB IH SCH ×4 (01:24→20:20)
--- NOTE | 2019-04-07 04:20 | NUR ---
PATIENT RECEIVED ON 28% AEROSOL T-TUBE THEN PLACED BACK ON VENT SUPPORT WITH SETTINGS OF CPAP 5, PS 15, 40%. SUCTIONED FOR MINIMAL, THIN, WHITE SECRETIONS. GIVEN IN-LINE TREATMENTS WITH NO ADVERSE REACTIONS. AMBU BAG AT BEDSIDE. VENT AND PULSE OXIMETER ALARMS AUDIBLE AND VISIBLE. Addendum: 04/07/19 at 0421 by CHUCKY OLIVAS RT Amended: Links added.
--- NOTE | 2019-04-07 05:10 | NUR ---
PATIENT PLACED BACK ON 28% AEROSOL T-TUBE; SaO2 100 HR 78; NO DISTRESS/SOB NOTED. Addendum: 04/07/19 at 0605 by CHUCKY OLIVAS RT Amended: Links added.
[2019-04-07] MEDS: OMEPRAZOLE 20 MG CAPSULE.DR GT SCH (05:34)
[2019-04-07] MEDS: PROSTAT (PYXIS) 30 ML UDC GT SCH ×3 (05:34→20:14)
[2019-04-07] MEDS: LACOSAMIDE ORAL SOLN 50 MG/5 ML UDC GT SCH ×2 (05:34→17:45)
[2019-04-07] MEDS: HYDROGEN PEROXIDE 480 ML BOTTLE TP SCH ×2 (09:00→20:19)
[2019-04-07] MEDS: DORZOLAMIDE OPTH 2% 10 ML BOTTLE EACHEYE SCH ×3 (09:04→17:44)
[2019-04-07] MEDS: POTASSIUM CHLORIDE 20 MEQ POWDER PACKET GT SCH (09:08)
[2019-04-07] MEDS: LINAGLIPTIN 5 MG TABLET GT SCH (09:08)
[2019-04-07] MEDS: FINASTERIDE (5 MG) 5 MG TABLET GT SCH (09:08)
[2019-04-07] MEDS: CARVEDILOL 6.25 MG TABLET GT SCH ×2 (09:08→20:13)
[2019-04-07] MEDS: ASCORBIC ACID 500 MG TABLET GT SCH (09:08)
[2019-04-07] MEDS: ACIDOPHILUS/BULGARICUS 1 EACH TAB.CHEW GT SCH (09:08)
[2019-04-07] MEDS: CHLORHEXIDINE GLUCONATE 15 ML UDC MM SCH ×2 (09:08→20:18)
[2019-04-07] MEDS: CADEXOMER IODINE 40 GM TUBE TP SCH (09:50)
[2019-04-07] MEDS: MINERAL OIL/PETROL OINT 396 GM JAR TP SCH ×2 (09:50→20:19)
[2019-04-07] MEDS: HYDROGEL DRESSING 90 GM TUBE TP SCH ×2 (09:50→20:19)
[2019-04-07] MEDS: NEOMY SULF/BACITRAC ZN/POLY 15 GM TUBE TP SCH ×2 (09:51→20:19)
[2019-04-07] MEDS: Z GUARD REMEDY 4 OZ OINT TP SCH ×2 (09:51→20:19)
[2019-04-07] MEDS: VITAMINS A AND D 56.7 GM TUBE TP SCH ×2 (09:51→20:19)
[2019-04-07] MEDS: NEPRO 1,000 ML BOTTLE GT PRN (16:06)
[2019-04-07] MEDS: ACETAMINOPHEN 650 MG/20 ML UDC- SA PATIENTS-PAIN ONLY GT SCH (20:18)
[2019-04-07] MEDS: LATANOPROST EYE DROP 0.005% 2.5 ML BOTTLE EACHEYE SCH (21:38)
[2019-04-07] MEDS: TAMSULOSIN 0.4 MG CAP.SR.24H PO SCH (21:38)
[2019-04-07] MEDS: ATORVASTATIN 10 MG TABLET GT SCH (21:38)
[2019-04-08] VITALS (7 sets, daily range): BP systolic 106–131; BP diastolic 66–74
[2019-04-08] MEDS: IPRATROPIUM NEB FS 0.5 MG/2.5 ML AMPUL.NEB IH SCH ×4 (01:38→19:28)
[2019-04-08] MEDS: REGLAN GT SCH ×3 (05:38→17:28)
[2019-04-08] MEDS: PROSTAT (PYXIS) 30 ML UDC GT SCH ×3 (05:38→20:22)
[2019-04-08] MEDS: OMEPRAZOLE 20 MG CAPSULE.DR GT SCH (05:39)
[2019-04-08] MEDS: SIMETHICONE SUSP 40 MG/0.6 ML BOTTLE GT SCH ×3 (05:40→17:28)
[2019-04-08] MEDS: LACOSAMIDE ORAL SOLN 50 MG/5 ML UDC GT SCH ×2 (05:45→17:28)
[2019-04-08] MEDS: BLOOD SUGAR DIAGNOSTIC 1 EACH STRIP IN SCH ×3 (05:48→17:32)
[2019-04-08] MEDS: INSULIN REGULAR, HUMAN 100 UNIT/ML 10 ML VIAL SQ SCH ×3 (06:02→17:37)
[2019-04-08] MEDS: HYDROGEN PEROXIDE 480 ML BOTTLE TP SCH ×2 (09:00→21:00)
[2019-04-08] MEDS: DORZOLAMIDE OPTH 2% 10 ML BOTTLE EACHEYE SCH ×3 (09:40→17:28)
[2019-04-08] MEDS: POTASSIUM CHLORIDE 20 MEQ POWDER PACKET GT SCH (09:41)
[2019-04-08] MEDS: ACIDOPHILUS/BULGARICUS 1 EACH TAB.CHEW GT SCH (09:41)
[2019-04-08] MEDS: CARVEDILOL 6.25 MG TABLET GT SCH ×2 (09:41→20:21)
[2019-04-08] MEDS: LINAGLIPTIN 5 MG TABLET GT SCH (09:43)
[2019-04-08] MEDS: FINASTERIDE (5 MG) 5 MG TABLET GT SCH (09:43)
[2019-04-08] MEDS: ACETAMINOPHEN 650 MG/20 ML UDC- SA PATIENTS-PAIN ONLY GT SCH ×2 (09:44→20:23)
[2019-04-08] MEDS: ASCORBIC ACID 500 MG TABLET GT SCH (09:44)
[2019-04-08] MEDS: CHLORHEXIDINE GLUCONATE 15 ML UDC MM SCH ×2 (09:44→20:23)
[2019-04-08] MEDS: VITAMINS A AND D 56.7 GM TUBE TP SCH ×2 (10:44→20:24)
[2019-04-08] MEDS: Z GUARD REMEDY 4 OZ OINT TP SCH ×2 (10:44→20:24)
[2019-04-08] MEDS: HYDROGEL DRESSING 90 GM TUBE TP SCH ×2 (10:44→20:23)
[2019-04-08] MEDS: CADEXOMER IODINE 40 GM TUBE TP SCH (10:44)
[2019-04-08] MEDS: NEOMY SULF/BACITRAC ZN/POLY 15 GM TUBE TP SCH ×2 (10:44→20:24)
[2019-04-08] MEDS: MINERAL OIL/PETROL OINT 396 GM JAR TP SCH ×2 (10:44→20:23)
[2019-04-08] MEDS: NEPRO 1,000 ML BOTTLE GT PRN (12:46)
--- NOTE | 2019-04-08 15:00 | NUR ---
Seen and examined resident diffuse rash with skin breakdown, groin erythema intertrigo, blisters he said its possible Bullous pemphigoid. No new order given.
[2019-04-08] MEDS: LATANOPROST EYE DROP 0.005% 2.5 ML BOTTLE EACHEYE SCH (21:51)
[2019-04-08] MEDS: ATORVASTATIN 10 MG TABLET GT SCH (21:52)
[2019-04-08] MEDS: TAMSULOSIN 0.4 MG CAP.SR.24H GT SCH (21:52)
[2019-04-09] MEDS: REGLAN GT SCH ×4 (00:29→18:12)
[2019-04-09] MEDS: SIMETHICONE SUSP 40 MG/0.6 ML BOTTLE GT SCH ×4 (00:29→18:12)
[2019-04-09] MEDS: BLOOD SUGAR DIAGNOSTIC 1 EACH STRIP IN SCH ×4 (00:29→18:12)
[2019-04-09] MEDS: INSULIN REGULAR, HUMAN 100 UNIT/ML 10 ML VIAL SQ SCH ×4 (00:30→18:14)
[2019-04-09 01:36] VITALS: BP 113/56
[2019-04-09] MEDS: IPRATROPIUM NEB FS 0.5 MG/2.5 ML AMPUL.NEB IH SCH ×4 (01:46→19:33)
[2019-04-09 05:41] VITALS: BP 129/55
[2019-04-09] MEDS: PROSTAT (PYXIS) 30 ML UDC GT SCH ×3 (05:44→20:17)
[2019-04-09] MEDS: OMEPRAZOLE 20 MG CAPSULE.DR GT SCH (05:44)
[2019-04-09] MEDS: LACOSAMIDE ORAL SOLN 50 MG/5 ML UDC GT SCH ×2 (05:44→18:12)
[2019-04-09] MEDS: ACIDOPHILUS/BULGARICUS 1 EACH TAB.CHEW GT SCH (09:00)
[2019-04-09] MEDS: POTASSIUM CHLORIDE 20 MEQ POWDER PACKET GT SCH (09:00)
[2019-04-09] MEDS: DORZOLAMIDE OPTH 2% 10 ML BOTTLE EACHEYE SCH ×3 (09:00→17:51)
[2019-04-09] MEDS: FINASTERIDE (5 MG) 5 MG TABLET GT SCH (09:00)
[2019-04-09] MEDS: ASCORBIC ACID 500 MG TABLET GT SCH (09:00)
[2019-04-09] MEDS: LINAGLIPTIN 5 MG TABLET GT SCH (09:00)
[2019-04-09] MEDS: CARVEDILOL 6.25 MG TABLET GT SCH ×2 (09:00→20:16)
[2019-04-09] MEDS: ACETAMINOPHEN 650 MG/20 ML UDC- SA PATIENTS-PAIN ONLY GT SCH ×2 (09:00→20:18)
[2019-04-09] MEDS: CHLORHEXIDINE GLUCONATE 15 ML UDC MM SCH ×2 (09:00→20:18)
[2019-04-09] MEDS: Z GUARD REMEDY 4 OZ OINT TP SCH ×2 (11:30→20:19)
[2019-04-09] MEDS: CADEXOMER IODINE 40 GM TUBE TP SCH (11:30)
[2019-04-09] MEDS: NEOMY SULF/BACITRAC ZN/POLY 15 GM TUBE TP SCH ×2 (11:30→20:19)
[2019-04-09] MEDS: HYDROGEL DRESSING 90 GM TUBE TP SCH ×2 (11:30→20:19)
[2019-04-09] MEDS: MINERAL OIL/PETROL OINT 396 GM JAR TP SCH ×2 (11:30→20:19)
[2019-04-09] MEDS: VITAMINS A AND D 56.7 GM TUBE TP SCH ×2 (11:30→20:19)
[2019-04-09] MEDS: HYDROGEN PEROXIDE 480 ML BOTTLE TP SCH ×2 (11:30→21:00)
[2019-04-09] MEDS: NEPRO 1,000 ML BOTTLE GT PRN (12:38)
[2019-04-09 13:00] VITALS: BP 110/49
--- NOTE | 2019-04-09 15:02 | NUR ---
IDT Invitation to Family: CHANI also communicated to Jose Johns that IDT meeting will be taking place this April 12 from 12:30-1:30pm. Patients Son, Jose Johns communicated to nurse that he would like the patients sister, Maihsa Johns to to have the right to call in and be updated about patient's condition. SW contacted Jose and he confirmed above. SW communicated to nursing station.
[2019-04-09 18:44] VITALS: BP 117/55
[2019-04-09 20:16] VITALS: BP 108/54
[2019-04-09 21:03] VITALS: BP 108/54
[2019-04-09] MEDS: TAMSULOSIN 0.4 MG CAP.SR.24H GT SCH (21:25)
[2019-04-09] MEDS: LATANOPROST EYE DROP 0.005% 2.5 ML BOTTLE EACHEYE SCH (21:25)
[2019-04-09] MEDS: ATORVASTATIN 10 MG TABLET GT SCH (21:25)
[2019-04-10] VITALS (9 sets, daily range): BP systolic 105–125; BP diastolic 47–64
[2019-04-10] MEDS: REGLAN GT SCH ×4 (00:38→17:22)
[2019-04-10] MEDS: SIMETHICONE SUSP 40 MG/0.6 ML BOTTLE GT SCH ×4 (00:38→17:22)
[2019-04-10] MEDS: BLOOD SUGAR DIAGNOSTIC 1 EACH STRIP IN SCH ×4 (00:39→17:22)
[2019-04-10] MEDS: INSULIN REGULAR, HUMAN 100 UNIT/ML 10 ML VIAL SQ SCH ×4 (00:41→17:23)
[2019-04-10] MEDS: IPRATROPIUM NEB FS 0.5 MG/2.5 ML AMPUL.NEB IH SCH ×4 (01:13→19:08)
[2019-04-10] MEDS: NEPRO 1,000 ML BOTTLE GT PRN (05:05)
[2019-04-10] MEDS: PROSTAT (PYXIS) 30 ML UDC GT SCH ×3 (05:06→20:35)
[2019-04-10] MEDS: OMEPRAZOLE 20 MG CAPSULE.DR GT SCH (05:10)
[2019-04-10] MEDS: LACOSAMIDE ORAL SOLN 50 MG/5 ML UDC GT SCH ×2 (05:11→17:22)
[2019-04-10] MEDS: DORZOLAMIDE OPTH 2% 10 ML BOTTLE EACHEYE SCH ×3 (08:12→17:22)
[2019-04-10] MEDS: CARVEDILOL 6.25 MG TABLET GT SCH ×2 (08:13→20:35)
[2019-04-10] MEDS: ACIDOPHILUS/BULGARICUS 1 EACH TAB.CHEW GT SCH (08:14)
[2019-04-10] MEDS: POTASSIUM CHLORIDE 20 MEQ POWDER PACKET GT SCH (08:14)
[2019-04-10] MEDS: LINAGLIPTIN 5 MG TABLET GT SCH (08:14)
[2019-04-10] MEDS: FINASTERIDE (5 MG) 5 MG TABLET GT SCH (08:14)
[2019-04-10] MEDS: CHLORHEXIDINE GLUCONATE 15 ML UDC MM SCH ×2 (08:16→20:36)
[2019-04-10] MEDS: ACETAMINOPHEN 650 MG/20 ML UDC- SA PATIENTS-PAIN ONLY GT SCH ×2 (08:16→20:36)
[2019-04-10] MEDS: ASCORBIC ACID 500 MG TABLET GT SCH (08:16)
--- NOTE | 2019-04-10 08:30 | NUR ---
Seen and examined by Dr. Garduno, no new order given.
[2019-04-10] MEDS: HYDROGEN PEROXIDE 480 ML BOTTLE TP SCH ×2 (09:00→19:08)
[2019-04-10] MEDS: MINERAL OIL/PETROL OINT 396 GM JAR TP SCH ×2 (09:16→20:36)
[2019-04-10] MEDS: Z GUARD REMEDY 4 OZ OINT TP SCH ×2 (09:16→21:34)
[2019-04-10] MEDS: NEOMY SULF/BACITRAC ZN/POLY 15 GM TUBE TP SCH ×2 (09:16→21:34)
[2019-04-10] MEDS: CADEXOMER IODINE 40 GM TUBE TP SCH (09:16)
[2019-04-10] MEDS: HYDROGEL DRESSING 90 GM TUBE TP SCH ×2 (09:16→21:34)
[2019-04-10] MEDS: VITAMINS A AND D 56.7 GM TUBE TP SCH ×2 (09:16→21:34)
--- NOTE | 2019-04-10 12:35 | NUR ---
Seen and examined by Nilam Pineda, no new order given.
[2019-04-10] MEDS: TAMSULOSIN 0.4 MG CAP.SR.24H GT SCH (21:34)
[2019-04-10] MEDS: LATANOPROST EYE DROP 0.005% 2.5 ML BOTTLE EACHEYE SCH (21:34)
[2019-04-10] MEDS: ATORVASTATIN 10 MG TABLET GT SCH (21:35)
[2019-04-11] VITALS (7 sets, daily range): BP systolic 98–125; BP diastolic 47–72
[2019-04-11] MEDS: SIMETHICONE SUSP 40 MG/0.6 ML BOTTLE GT SCH ×5 (00:04→23:49)
[2019-04-11] MEDS: REGLAN GT SCH ×5 (00:04→23:49)
[2019-04-11] MEDS: BLOOD SUGAR DIAGNOSTIC 1 EACH STRIP IN SCH ×5 (00:04→23:49)
[2019-04-11] MEDS: INSULIN REGULAR, HUMAN 100 UNIT/ML 10 ML VIAL SQ SCH ×5 (00:07→23:57)
[2019-04-11] MEDS: NEPRO 1,000 ML BOTTLE GT PRN (00:08)
[2019-04-11] MEDS: IPRATROPIUM NEB FS 0.5 MG/2.5 ML AMPUL.NEB IH SCH ×4 (01:32→20:01)
--- NOTE | 2019-04-11 03:47 | NUR ---
PATIENT RECEIVED ON 28% AEROSOL T-TUBE, TOLERATING WITH NO DISTRESS/SOB NOTED, THEN PLACED BACK ON TRACH TO VENT WITH SETTINGS OF CPAP 5, PS 15, 40%. SUCTIONED FOR MINIMAL, THICK, YELLOW SECRETIONS. GIVEN IN-LINE TREATMENTS WITH NO ADVERSE REACTIONS. AMBU BAG AT BEDSIDE. VENT AND PULSE OXIMETER ALARMS AUDIBLE AND VISIBLE. Addendum: 04/11/19 at 0350 by CHUCKY OLIVAS RT Amended: Links added.
[2019-04-11] MEDS: OMEPRAZOLE 20 MG CAPSULE.DR GT SCH (05:27)
[2019-04-11] MEDS: PROSTAT (PYXIS) 30 ML UDC GT SCH ×3 (05:27→21:17)
[2019-04-11] MEDS: LACOSAMIDE ORAL SOLN 50 MG/5 ML UDC GT SCH ×2 (05:27→17:02)
[2019-04-11] MEDS: FINASTERIDE (5 MG) 5 MG TABLET GT SCH (09:00)
[2019-04-11] MEDS: CHLORHEXIDINE GLUCONATE 15 ML UDC MM SCH ×2 (09:00→21:17)
[2019-04-11] MEDS: POTASSIUM CHLORIDE 20 MEQ POWDER PACKET GT SCH (09:00)
[2019-04-11] MEDS: ASCORBIC ACID 500 MG TABLET GT SCH (09:00)
[2019-04-11] MEDS: MINERAL OIL/PETROL OINT 396 GM JAR TP SCH ×2 (09:00→21:17)
[2019-04-11] MEDS: LINAGLIPTIN 5 MG TABLET GT SCH (09:00)
[2019-04-11] MEDS: CARVEDILOL 6.25 MG TABLET GT SCH ×2 (09:00→21:17)
[2019-04-11] MEDS: DORZOLAMIDE OPTH 2% 10 ML BOTTLE EACHEYE SCH ×3 (09:00→17:02)
[2019-04-11] MEDS: ACIDOPHILUS/BULGARICUS 1 EACH TAB.CHEW GT SCH (09:00)
[2019-04-11] MEDS: ACETAMINOPHEN 650 MG/20 ML UDC- SA PATIENTS-PAIN ONLY GT SCH (09:00)
[2019-04-11] MEDS: CADEXOMER IODINE 40 GM TUBE TP SCH (11:00)
[2019-04-11] MEDS: VITAMINS A AND D 56.7 GM TUBE TP SCH ×2 (11:00→21:18)
[2019-04-11] MEDS: NEOMY SULF/BACITRAC ZN/POLY 15 GM TUBE TP SCH ×2 (11:00→21:17)
[2019-04-11] MEDS: Z GUARD REMEDY 4 OZ OINT TP SCH ×2 (11:00→21:18)
[2019-04-11] MEDS: HYDROGEL DRESSING 90 GM TUBE TP SCH ×2 (11:00→21:17)
--- NOTE | 2019-04-11 11:02 | NUR ---
Optometry: CHANI called Dr. Lora office [TEL:[phone]] and spoke to Adeline to schedule residents annual optometry appointment. Per Adeline, the fuel conversion technician Dr. Reddy is on vacation and will be back April 16. CHANI faxed pt.s facesheet to FAX: [phone] per Brittney request. Per Adeline, she will contact me with appointment date and time.
--- NOTE | 2019-04-11 11:07 | NUR ---
RESIDENT RETURNED FROM DIALYSIS CENTER WITH THE FOLLOWING VITAL SIGNS BLOOD PRESSURE 98/49, TEMP 99.1, PULSE 110, RESP RATE 22, PAIN 0/10, NO FACIAL GRIMACING NOTED, SITE ON LEFT UPPER CHEST DRESSING INTACT, NO BLEEDING, WAS CONNECTED TO COOL AEROSOL SETTINGS REQUESTED PER MD, SUCTIONED AT ARRIVAL TRACH AND ORAL WITH MINIMAL SECRETIONS, GTUBE FEEDING WAS CONNECTED, HOB REMAINS 45 DEGREES, AND CALL LIGHT WITHIN REACH.
[2019-04-11] MEDS: LATANOPROST EYE DROP 0.005% 2.5 ML BOTTLE EACHEYE SCH (21:18)
[2019-04-11] MEDS: TAMSULOSIN 0.4 MG CAP.SR.24H GT SCH (21:18)
[2019-04-11] MEDS: ATORVASTATIN 10 MG TABLET GT SCH (21:18)
--- NOTE | 2019-04-11 21:20 | NUR ---
Seen and examined by Nilam VALENTINE.
[2019-04-11] MEDS: HYDROGEN PEROXIDE 480 ML BOTTLE TP SCH (22:32)
[2019-04-12] VITALS (8 sets, daily range): BP systolic 99–149; BP diastolic 55–75
--- NOTE | 2019-04-12 00:33 | NUR ---
pt rec'd on cool aerosol, pt placed on mech vent per md orders. no resp distress or sob noted. pt sx'd for mod amt of pale yellow secretions. trach is patent and secured. alarms are set and audible. vent plugged into red outlet. ambu bag bedside. will continue to monitor. Addendum: 04/12/19 at 0034 by PAUL ALMARAZ RT Amended: Links added.
[2019-04-12] MEDS: IPRATROPIUM NEB FS 0.5 MG/2.5 ML AMPUL.NEB IH SCH ×4 (01:25→20:08)
[2019-04-12] MEDS: NEPRO 1,000 ML BOTTLE GT PRN ×2 (02:30→21:42)
[2019-04-12] MEDS: SIMETHICONE SUSP 40 MG/0.6 ML BOTTLE GT SCH ×3 (05:47→17:47)
[2019-04-12] MEDS: BLOOD SUGAR DIAGNOSTIC 1 EACH STRIP IN SCH ×3 (05:47→17:48)
[2019-04-12] MEDS: OMEPRAZOLE 20 MG CAPSULE.DR GT SCH (05:47)
[2019-04-12] MEDS: REGLAN GT SCH ×3 (05:47→17:47)
[2019-04-12] MEDS: LACOSAMIDE ORAL SOLN 50 MG/5 ML UDC GT SCH ×2 (05:47→17:47)
[2019-04-12] MEDS: PROSTAT (PYXIS) 30 ML UDC GT SCH ×3 (05:47→21:23)
[2019-04-12] MEDS: INSULIN REGULAR, HUMAN 100 UNIT/ML 10 ML VIAL SQ SCH ×3 (05:49→17:49)
--- NOTE | 2019-04-12 08:58 | NUR ---
Pt's son visited last night. He said he does not know that there is an IDT meeting today because nobody called him. According to social service manager May, she called pt's son last Monday to inform him of the IDT meeting.
[2019-04-12] MEDS: MINERAL OIL/PETROL OINT 396 GM JAR TP SCH ×2 (09:00→21:23)
[2019-04-12] MEDS: HYDROGEN PEROXIDE 480 ML BOTTLE TP SCH ×2 (09:00→20:56)
[2019-04-12] MEDS: VITAMINS A AND D 56.7 GM TUBE TP SCH ×2 (09:00→21:24)
[2019-04-12] MEDS: HYDROGEL DRESSING 90 GM TUBE TP SCH ×2 (09:00→21:23)
[2019-04-12] MEDS: CADEXOMER IODINE 40 GM TUBE TP SCH (09:00)
[2019-04-12] MEDS: Z GUARD REMEDY 4 OZ OINT TP SCH ×2 (09:00→21:23)
[2019-04-12] MEDS: LINAGLIPTIN 5 MG TABLET GT SCH (09:05)
[2019-04-12] MEDS: CARVEDILOL 6.25 MG TABLET GT SCH (09:05)
[2019-04-12] MEDS: DORZOLAMIDE OPTH 2% 10 ML BOTTLE EACHEYE SCH ×3 (09:05→17:47)
[2019-04-12] MEDS: ASCORBIC ACID 500 MG TABLET GT SCH (09:05)
[2019-04-12] MEDS: FINASTERIDE (5 MG) 5 MG TABLET GT SCH (09:05)
[2019-04-12] MEDS: ACIDOPHILUS/BULGARICUS 1 EACH TAB.CHEW GT SCH (09:05)
[2019-04-12] MEDS: POTASSIUM CHLORIDE 20 MEQ POWDER PACKET GT SCH (09:05)
[2019-04-12] MEDS: CHLORHEXIDINE GLUCONATE 15 ML UDC MM SCH ×2 (09:05→21:23)
--- NOTE | 2019-04-12 09:16 | NUR ---
CHANI called khalif's son, Dr. Johns tel: [phone] to remind him of IDT taking place today between 12:30 pm and 1:30pm. Per Dr. Johns, he would like to participate via phone conference.José Luo communicated to charge nurse.
--- NOTE | 2019-04-12 13:35 | NUR ---
IDT meeting held today, pt's son attended via phone conference. Current plan of care discussed in detail. Dr Ramírez ordered to DC Coreg since it is being held due to low heart rate. Pt's blood sugar levels have been high. Dr Ramírez also ordered CBC and UA.
[2019-04-12 15:16] LABS: RED BLOOD CELL COUNT(AUTO) 3.21 MIL/uL (4.5-6.0); WHITE BLOOD COUNT (AUTO) 12.6 K/uL (4.3-11.0)
[2019-04-12 15:17] LABS: BASOPHILS # (AUTO) 0.1 /CMM (0.0-0.2); BASOPHILS % (AUTO) 0.5 % (0.0-2.0); EOSINOPHILS % (AUTO) 2.7 % (0.0-6.0); HEMATOCRIT 33 % (39-51); HEMOGLOBIN 10.3 g/dL (13.5-17.5); LYMPHOCYTES # (AUTO) 1.2 /CMM (0.8-4.8); LYMPHOCYTES % (AUTO) 9.4 % (20.0-44.0); MEAN CORPUSCULAR HGB CONC 32 g/dl (31.0-36.0); MEAN CORPUSCULAR VOLUME 102 fL (80-96); MONOCYTES # (AUTO) 0.8 /CMM (0.1-1.30); MONOCYTES % (AUTO) 6.4 % (2.0-12.0); NEUTROPHILS # (AUTO) 10.2 /CMM (1.8-8.9); PLATELET COUNT (AUTO) 264 /CMM (150-450)
[2019-04-12] MEDS: LATANOPROST EYE DROP 0.005% 2.5 ML BOTTLE EACHEYE SCH (21:25)
[2019-04-12] MEDS: TAMSULOSIN 0.4 MG CAP.SR.24H GT SCH (21:26)
[2019-04-12] MEDS: ATORVASTATIN 10 MG TABLET GT SCH (21:26)
[2019-04-13] VITALS (8 sets, daily range): BP systolic 58–119; BP diastolic 55–74
[2019-04-13] MEDS: BLOOD SUGAR DIAGNOSTIC 1 EACH STRIP IN SCH ×4 (00:07→17:10)
[2019-04-13] MEDS: REGLAN GT SCH ×4 (00:07→17:06)
[2019-04-13] MEDS: SIMETHICONE SUSP 40 MG/0.6 ML BOTTLE GT SCH ×4 (00:11→17:06)
[2019-04-13] MEDS: INSULIN REGULAR, HUMAN 100 UNIT/ML 10 ML VIAL SQ SCH ×4 (00:13→17:14)
[2019-04-13] MEDS: IPRATROPIUM NEB FS 0.5 MG/2.5 ML AMPUL.NEB IH SCH ×4 (01:58→19:30)
[2019-04-13] MEDS: LACOSAMIDE ORAL SOLN 50 MG/5 ML UDC GT SCH ×2 (05:23→17:06)
[2019-04-13] MEDS: OMEPRAZOLE 20 MG CAPSULE.DR GT SCH (05:23)
[2019-04-13] MEDS: PROSTAT (PYXIS) 30 ML UDC GT SCH ×3 (05:26→21:30)
--- NOTE | 2019-04-13 06:58 | NUR ---
RN NOTES; Left at 0600 for dialysis via [facility]. Stable vital signs BP-119/74. No pain or discomfort noted. Trach secured and intact. on cool aeresol at 28% fio2. All emergency equipment taken/ambu-bag and back up trach w/ pt. Jeremiah cath on left chest intact, with dry/clean dressing. Latest blood sugar-374, 10 units Humulin R given, other due medication given.
[2019-04-13] MEDS: HYDROGEN PEROXIDE 480 ML BOTTLE TP SCH ×2 (09:00→21:20)
[2019-04-13] MEDS: FINASTERIDE (5 MG) 5 MG TABLET GT SCH (09:00)
[2019-04-13] MEDS: MINERAL OIL/PETROL OINT 396 GM JAR TP SCH ×2 (09:00→21:31)
[2019-04-13] MEDS: ASCORBIC ACID 500 MG TABLET GT SCH (09:00)
[2019-04-13] MEDS: ACIDOPHILUS/BULGARICUS 1 EACH TAB.CHEW GT SCH (09:00)
[2019-04-13] MEDS: DORZOLAMIDE OPTH 2% 10 ML BOTTLE EACHEYE SCH ×3 (09:00→17:06)
[2019-04-13] MEDS: POTASSIUM CHLORIDE 20 MEQ POWDER PACKET GT SCH (09:00)
[2019-04-13] MEDS: LINAGLIPTIN 5 MG TABLET GT SCH (09:00)
[2019-04-13] MEDS: CHLORHEXIDINE GLUCONATE 15 ML UDC MM SCH ×2 (09:00→21:30)
--- NOTE | 2019-04-13 10:40 | NUR ---
RESIDENT RETURNED BACK FROM DIALYSIS WITH THE FOLLOWING VITAL SIGNS BLOOD PRESSURE 111/62, PULSE 95, RESP RATE 16, TEMP 98.2 F, NO PAIN OR DISCOMFORT NOTED, PRE WEIGHT 78.8KG, POST WEIGHT 77KG, LEFT UPPER CHEST CATHETER INTACT, NO BLEEDING NOTED, WAS CONNECTED TO COOL AEROSOL 28% MINIMAL SECRETIONS TRACHEOSTOMY AND ORAL.
[2019-04-13] MEDS: VITAMINS A AND D 56.7 GM TUBE TP SCH ×2 (11:00→21:31)
[2019-04-13] MEDS: Z GUARD REMEDY 4 OZ OINT TP SCH ×2 (11:00→21:31)
[2019-04-13] MEDS: CADEXOMER IODINE 40 GM TUBE TP SCH (11:00)
[2019-04-13] MEDS: HYDROGEL DRESSING 90 GM TUBE TP SCH ×2 (11:00→21:31)
[2019-04-13 13:21] LABS: APPEARANCE,URINE CLEAR (CLEAR); BILIRUBIN,URINE NEGATIVE (NEGATIVE); BLOOD, URINE NEGATIVE Ery/uL (NEGATIVE); COLOR,URINE AMBER (YELLOW); KETONES,URINE NEGATIVE (NEGATIVE); LEUKOCYTE ESTERASE ,URINE NEGATIVE (NEGATIVE); NITRITE, URINE POSITIVE (NEGATIVE); PROTEIN,URINE 1+ mg/dl (NEGATIVE); UGLUCOSE NEGATIVE (NEGATIVE); UROBILINOGEN,URINE 0.2 EU/dL (0.2)
[2019-04-13 14:18] LABS: BACTERIA,URINE Rare /HPF (None Seen); RBC,URINE NONE SEEN /HPF (0-2); SQUAMOUS EPITHELIAL CELL,UR None Seen /HPF (None Seen); WBC,URINE NONE SEEN /HPF (0-3); YEAST,URINE Few /HPF (None Seen)
[2019-04-13] MEDS: NEPRO 1,000 ML BOTTLE GT PRN (17:11)
[2019-04-13] MEDS: LATANOPROST EYE DROP 0.005% 2.5 ML BOTTLE EACHEYE SCH (21:31)
[2019-04-13] MEDS: TAMSULOSIN 0.4 MG CAP.SR.24H GT SCH (21:32)
[2019-04-13] MEDS: ATORVASTATIN 10 MG TABLET GT SCH (21:33)
[2019-04-13] MEDS: ACETAMINOPHEN 650 MG/20.3 ML UDC GT PRN (22:00)
--- NOTE | 2019-04-13 22:00 | NUR ---
BRIGHT SA NOTES PER SON REQUEST TO GIVE TYLENOL PRIOR TO WOUND CARE. TYLENOL PRN GIVEN ORDERED, WILL CONTINUE TO MONITOR FOR COMFORT.
[2019-04-14] VITALS (7 sets, daily range): BP systolic 101–130; BP diastolic 50–69
[2019-04-14] MEDS: SIMETHICONE SUSP 40 MG/0.6 ML BOTTLE GT SCH ×4 (00:18→17:53)
[2019-04-14] MEDS: REGLAN GT SCH ×4 (00:18→17:53)
[2019-04-14] MEDS: BLOOD SUGAR DIAGNOSTIC 1 EACH STRIP IN SCH ×4 (00:18→17:53)
[2019-04-14] MEDS: INSULIN REGULAR, HUMAN 100 UNIT/ML 10 ML VIAL SQ SCH ×4 (00:21→17:54)
[2019-04-14] MEDS: IPRATROPIUM NEB FS 0.5 MG/2.5 ML AMPUL.NEB IH SCH ×4 (01:48→19:40)
[2019-04-14] MEDS: PROSTAT (PYXIS) 30 ML UDC GT SCH ×3 (05:14→20:52)
[2019-04-14] MEDS: OMEPRAZOLE 20 MG CAPSULE.DR GT SCH (05:15)
[2019-04-14] MEDS: LACOSAMIDE ORAL SOLN 50 MG/5 ML UDC GT SCH ×2 (05:16→17:53)
[2019-04-14] MEDS: NEPRO 1,000 ML BOTTLE GT PRN ×2 (05:23→21:17)
[2019-04-14] MEDS: MINERAL OIL/PETROL OINT 396 GM JAR TP SCH ×2 (09:00→20:53)
[2019-04-14] MEDS: ASCORBIC ACID 500 MG TABLET GT SCH (09:00)
[2019-04-14] MEDS: HYDROGEN PEROXIDE 480 ML BOTTLE TP SCH ×2 (09:00→21:00)
[2019-04-14] MEDS: Z GUARD REMEDY 4 OZ OINT TP SCH ×2 (09:00→20:53)
[2019-04-14] MEDS: CADEXOMER IODINE 40 GM TUBE TP SCH (09:00)
[2019-04-14] MEDS: HYDROGEL DRESSING 90 GM TUBE TP SCH ×2 (09:00→20:53)
[2019-04-14] MEDS: VITAMINS A AND D 56.7 GM TUBE TP SCH ×2 (09:00→20:53)
[2019-04-14] MEDS: POTASSIUM CHLORIDE 20 MEQ POWDER PACKET GT SCH (09:00)
[2019-04-14] MEDS: ACIDOPHILUS/BULGARICUS 1 EACH TAB.CHEW GT SCH (09:00)
[2019-04-14] MEDS: LINAGLIPTIN 5 MG TABLET GT SCH (09:00)
[2019-04-14] MEDS: DORZOLAMIDE OPTH 2% 10 ML BOTTLE EACHEYE SCH ×3 (09:00→17:52)
[2019-04-14] MEDS: CHLORHEXIDINE GLUCONATE 15 ML UDC MM SCH ×2 (09:00→20:53)
[2019-04-14] MEDS: FINASTERIDE (5 MG) 5 MG TABLET GT SCH (09:00)
[2019-04-14] MEDS: TAMSULOSIN 0.4 MG CAP.SR.24H GT SCH (21:36)
[2019-04-14] MEDS: LATANOPROST EYE DROP 0.005% 2.5 ML BOTTLE EACHEYE SCH (21:36)
[2019-04-14] MEDS: ATORVASTATIN 10 MG TABLET GT SCH (21:36)
[2019-04-15] VITALS (7 sets, daily range): BP systolic 122–155; BP diastolic 54–88
[2019-04-15] MEDS: IPRATROPIUM NEB FS 0.5 MG/2.5 ML AMPUL.NEB IH SCH ×4 (01:55→19:34)
[2019-04-15] MEDS: PROSTAT (PYXIS) 30 ML UDC GT SCH ×3 (05:18→21:21)
[2019-04-15] MEDS: REGLAN GT SCH ×4 (05:19→17:27)
[2019-04-15] MEDS: OMEPRAZOLE 20 MG CAPSULE.DR GT SCH (05:20)
[2019-04-15] MEDS: SIMETHICONE SUSP 40 MG/0.6 ML BOTTLE GT SCH ×4 (05:20→17:29)
[2019-04-15] MEDS: BLOOD SUGAR DIAGNOSTIC 1 EACH STRIP IN SCH ×4 (05:22→17:29)
[2019-04-15] MEDS: LACOSAMIDE ORAL SOLN 50 MG/5 ML UDC GT SCH ×2 (05:22→17:29)
[2019-04-15] MEDS: INSULIN REGULAR, HUMAN 100 UNIT/ML 10 ML VIAL SQ SCH ×4 (05:23→17:48)
[2019-04-15 06:40] LABS: BASOPHILS % (AUTO) 0.4 % (0.0-2.0); EOSINOPHILS % (AUTO) 3.9 % (0.0-6.0); HEMATOCRIT 34 % (39-51); HEMOGLOBIN 10.9 g/dL (13.5-17.5); LYMPHOCYTES # (AUTO) 1.8 /CMM (0.8-4.8); LYMPHOCYTES % (AUTO) 16.7 % (20.0-44.0); MEAN CORPUSCULAR HGB CONC 32 g/dl (31.0-36.0); MEAN CORPUSCULAR VOLUME 101 fL (80-96); MONOCYTES % (AUTO) 9.5 % (2.0-12.0); NEUTROPHILS # (AUTO) 7.4 /CMM (1.8-8.9); NEUTROPHILS % (AUTO) 69.5 % (43.0-81.0); PLATELET COUNT (AUTO) 259 /CMM (150-450); RED BLOOD CELL COUNT(AUTO) 3.34 MIL/uL (4.5-6.0); WHITE BLOOD COUNT (AUTO) 10.7 K/uL (4.3-11.0)
[2019-04-15] MEDS: POTASSIUM CHLORIDE 20 MEQ POWDER PACKET GT SCH (08:53)
[2019-04-15] MEDS: FINASTERIDE (5 MG) 5 MG TABLET GT SCH (08:53)
[2019-04-15] MEDS: ACIDOPHILUS/BULGARICUS 1 EACH TAB.CHEW GT SCH (08:54)
[2019-04-15] MEDS: CHLORHEXIDINE GLUCONATE 15 ML UDC MM SCH ×2 (08:54→21:21)
[2019-04-15] MEDS: MINERAL OIL/PETROL OINT 396 GM JAR TP SCH ×2 (08:54→21:21)
[2019-04-15] MEDS: ASCORBIC ACID 500 MG TABLET GT SCH (08:54)
[2019-04-15] MEDS: LINAGLIPTIN 5 MG TABLET GT SCH (08:54)
[2019-04-15] MEDS: DORZOLAMIDE OPTH 2% 10 ML BOTTLE EACHEYE SCH ×3 (08:56→17:26)
[2019-04-15] MEDS: HYDROGEN PEROXIDE 480 ML BOTTLE TP SCH ×2 (12:53→21:22)
[2019-04-15] MEDS: CADEXOMER IODINE 40 GM TUBE TP SCH (12:53)
[2019-04-15] MEDS: Z GUARD REMEDY 4 OZ OINT TP SCH ×2 (12:53→21:22)
[2019-04-15] MEDS: HYDROGEL DRESSING 90 GM TUBE TP SCH ×2 (12:53→21:21)
[2019-04-15] MEDS: VITAMINS A AND D 56.7 GM TUBE TP SCH ×2 (12:53→21:22)
--- NOTE | 2019-04-15 15:21 | NUR ---
Seen by Dr Garduno. Relayed blood sugar levels and HgbA1C 7.[address] Garduno ordered Lantus insulin 14 units SC q HS. Informed Dr Johns.
[2019-04-15] MEDS: NEPRO 1,000 ML BOTTLE GT PRN (18:49)
[2019-04-15] MEDS: TAMSULOSIN 0.4 MG CAP.SR.24H GT SCH (21:22)
[2019-04-15] MEDS: LATANOPROST EYE DROP 0.005% 2.5 ML BOTTLE EACHEYE SCH (21:22)
[2019-04-15] MEDS: ATORVASTATIN 10 MG TABLET GT SCH (21:23)
[2019-04-15] MEDS: INSULIN GLARGINE, 100 UNIT/ML CARTRIDGE SQ SCH (21:39)
[2019-04-16] MEDS: BLOOD SUGAR DIAGNOSTIC 1 EACH STRIP IN SCH ×4 (00:33→17:48)
[2019-04-16] MEDS: SIMETHICONE SUSP 40 MG/0.6 ML BOTTLE GT SCH ×4 (00:33→17:35)
[2019-04-16] MEDS: REGLAN GT SCH ×4 (00:33→17:35)
[2019-04-16] MEDS: INSULIN REGULAR, HUMAN 100 UNIT/ML 10 ML VIAL SQ SCH ×4 (00:35→17:49)
[2019-04-16 01:00] VITALS: BP 135/62
[2019-04-16] MEDS: IPRATROPIUM NEB FS 0.5 MG/2.5 ML AMPUL.NEB IH SCH ×4 (01:42→19:46)
[2019-04-16] MEDS: PROSTAT (PYXIS) 30 ML UDC GT SCH ×3 (04:48→21:04)
[2019-04-16 05:00] VITALS: BP 118/41
[2019-04-16] MEDS: LACOSAMIDE ORAL SOLN 50 MG/5 ML UDC GT SCH ×2 (05:10→17:35)
[2019-04-16] MEDS: OMEPRAZOLE 20 MG CAPSULE.DR GT SCH (05:10)
[2019-04-16] MEDS: CHLORHEXIDINE GLUCONATE 15 ML UDC MM SCH ×2 (09:00→21:05)
[2019-04-16] MEDS: HYDROGEN PEROXIDE 480 ML BOTTLE TP SCH ×2 (09:00→21:00)
[2019-04-16] MEDS: LINAGLIPTIN 5 MG TABLET GT SCH (09:00)
[2019-04-16] MEDS: FINASTERIDE (5 MG) 5 MG TABLET GT SCH (09:00)
[2019-04-16] MEDS: ASCORBIC ACID 500 MG TABLET GT SCH (09:00)
[2019-04-16] MEDS: ACIDOPHILUS/BULGARICUS 1 EACH TAB.CHEW GT SCH (09:00)
[2019-04-16] MEDS: DORZOLAMIDE OPTH 2% 10 ML BOTTLE EACHEYE SCH ×3 (09:00→17:35)
[2019-04-16] MEDS: POTASSIUM CHLORIDE 20 MEQ POWDER PACKET GT SCH (09:00)
[2019-04-16] MEDS: HYDROGEL DRESSING 90 GM TUBE TP SCH ×2 (12:00→21:05)
[2019-04-16] MEDS: CADEXOMER IODINE 40 GM TUBE TP SCH (12:00)
[2019-04-16] MEDS: Z GUARD REMEDY 4 OZ OINT TP SCH ×2 (12:00→21:05)
[2019-04-16] MEDS: VITAMINS A AND D 56.7 GM TUBE TP SCH ×2 (12:00→21:05)
[2019-04-16] MEDS: MINERAL OIL/PETROL OINT 396 GM JAR TP SCH ×2 (12:00→21:05)
[2019-04-16 16:59] VITALS: BP 119/61
[2019-04-16 19:23] VITALS: BP 122/60
[2019-04-16 20:25] VITALS: BP 114/55
[2019-04-16] MEDS: LATANOPROST EYE DROP 0.005% 2.5 ML BOTTLE EACHEYE SCH (22:15)
[2019-04-16] MEDS: ATORVASTATIN 10 MG TABLET GT SCH (22:15)
[2019-04-16] MEDS: TAMSULOSIN 0.4 MG CAP.SR.24H GT SCH (22:15)
[2019-04-16] MEDS: INSULIN GLARGINE, 100 UNIT/ML CARTRIDGE SQ SCH (22:16)
[2019-04-16 22:47] VITALS: BP 114/55
[2019-04-17] VITALS (9 sets, daily range): BP systolic 116–124; BP diastolic 55–69
[2019-04-17] MEDS: NEPRO 1,000 ML BOTTLE GT PRN ×2 (00:31→15:41)
[2019-04-17] MEDS: REGLAN GT SCH ×4 (00:32→17:49)
[2019-04-17] MEDS: BLOOD SUGAR DIAGNOSTIC 1 EACH STRIP IN SCH ×4 (00:32→17:51)
[2019-04-17] MEDS: SIMETHICONE SUSP 40 MG/0.6 ML BOTTLE GT SCH ×4 (00:32→17:49)
[2019-04-17] MEDS: INSULIN REGULAR, HUMAN 100 UNIT/ML 10 ML VIAL SQ SCH ×4 (00:34→17:53)
[2019-04-17] MEDS: IPRATROPIUM NEB FS 0.5 MG/2.5 ML AMPUL.NEB IH SCH ×4 (01:56→20:01)
[2019-04-17] MEDS: PROSTAT (PYXIS) 30 ML UDC GT SCH ×3 (05:00→21:59)
[2019-04-17] MEDS: OMEPRAZOLE 20 MG CAPSULE.DR GT SCH (06:01)
[2019-04-17] MEDS: LACOSAMIDE ORAL SOLN 50 MG/5 ML UDC GT SCH ×2 (06:01→17:51)
[2019-04-17] MEDS: HYDROGEN PEROXIDE 480 ML BOTTLE TP SCH ×2 (08:25→21:03)
[2019-04-17] MEDS: HYDROGEL DRESSING 90 GM TUBE TP SCH ×2 (09:00→21:59)
[2019-04-17] MEDS: MINERAL OIL/PETROL OINT 396 GM JAR TP SCH ×2 (09:00→21:59)
[2019-04-17] MEDS: CADEXOMER IODINE 40 GM TUBE TP SCH (09:00)
[2019-04-17] MEDS: Z GUARD REMEDY 4 OZ OINT TP SCH ×2 (09:00→21:59)
[2019-04-17] MEDS: VITAMINS A AND D 56.7 GM TUBE TP SCH ×2 (09:00→21:59)
[2019-04-17] MEDS: DORZOLAMIDE OPTH 2% 10 ML BOTTLE EACHEYE SCH ×3 (09:24→17:49)
[2019-04-17] MEDS: ACIDOPHILUS/BULGARICUS 1 EACH TAB.CHEW GT SCH (09:24)
[2019-04-17] MEDS: FINASTERIDE (5 MG) 5 MG TABLET GT SCH (09:24)
[2019-04-17] MEDS: LINAGLIPTIN 5 MG TABLET GT SCH (09:24)
[2019-04-17] MEDS: ASCORBIC ACID 500 MG TABLET GT SCH (09:24)
[2019-04-17] MEDS: POTASSIUM CHLORIDE 20 MEQ POWDER PACKET GT SCH (09:24)
[2019-04-17] MEDS: CHLORHEXIDINE GLUCONATE 15 ML UDC MM SCH ×2 (09:24→21:59)
--- NOTE | 2019-04-17 18:06 | NUR ---
SPINNING LATHE OPERATOR HYDRAULIC Tereza Hanks seen patient no new order given. She mentioned to have Dr. Dotson to take a look at the patient's R great toe metatarsal. Current treatment is to apply iodosorb and cover with Mepilex. Resident's son at bedside. Endorsed to notify MD in AM.
[2019-04-17] MEDS: ACETAMINOPHEN 650 MG/20.3 ML UDC GT PRN (19:03)
[2019-04-17] MEDS: TAMSULOSIN 0.4 MG CAP.SR.24H GT SCH (21:59)
[2019-04-17] MEDS: LATANOPROST EYE DROP 0.005% 2.5 ML BOTTLE EACHEYE SCH (21:59)
[2019-04-17] MEDS: ATORVASTATIN 10 MG TABLET GT SCH (21:59)
[2019-04-17] MEDS: INSULIN GLARGINE, 100 UNIT/ML CARTRIDGE SQ SCH (22:56)
[2019-04-18] VITALS (7 sets, daily range): BP systolic 89–128; BP diastolic 50–70
[2019-04-18] MEDS: BLOOD SUGAR DIAGNOSTIC 1 EACH STRIP IN SCH ×4 (00:31→18:35)
[2019-04-18] MEDS: REGLAN GT SCH ×4 (00:31→17:56)
[2019-04-18] MEDS: SIMETHICONE SUSP 40 MG/0.6 ML BOTTLE GT SCH ×4 (00:31→17:56)
[2019-04-18] MEDS: INSULIN REGULAR, HUMAN 100 UNIT/ML 10 ML VIAL SQ SCH ×4 (00:32→18:35)
[2019-04-18] MEDS: IPRATROPIUM NEB FS 0.5 MG/2.5 ML AMPUL.NEB IH SCH ×4 (01:34→19:33)
[2019-04-18] MEDS: OMEPRAZOLE 20 MG CAPSULE.DR GT SCH (05:21)
[2019-04-18] MEDS: PROSTAT (PYXIS) 30 ML UDC GT SCH ×3 (05:21→20:55)
[2019-04-18] MEDS: LACOSAMIDE ORAL SOLN 50 MG/5 ML UDC GT SCH ×2 (05:21→17:56)
--- NOTE | 2019-04-18 06:05 | NUR ---
Went out for dialysis via [facility]. Stable vital signs. appears calm and comfortable. Trach secured and intact. on cool aeresol at 28% fio2. No s/s of resp distress noted. All emergency equipment taken/ambu-bag and back up trach. Jeremiah cath on left chest intact, dressing clean and dry.
[2019-04-18] MEDS: ASCORBIC ACID 500 MG TABLET GT SCH (09:00)
[2019-04-18] MEDS: HYDROGEN PEROXIDE 480 ML BOTTLE TP SCH ×2 (09:00→20:06)
[2019-04-18] MEDS: DORZOLAMIDE OPTH 2% 10 ML BOTTLE EACHEYE SCH ×3 (09:00→17:56)
[2019-04-18] MEDS: POTASSIUM CHLORIDE 20 MEQ POWDER PACKET GT SCH (09:00)
[2019-04-18] MEDS: LINAGLIPTIN 5 MG TABLET GT SCH (09:00)
[2019-04-18] MEDS: CHLORHEXIDINE GLUCONATE 15 ML UDC MM SCH ×2 (09:00→20:55)
[2019-04-18] MEDS: ACIDOPHILUS/BULGARICUS 1 EACH TAB.CHEW GT SCH (09:00)
[2019-04-18] MEDS: FINASTERIDE (5 MG) 5 MG TABLET GT SCH (09:00)
--- NOTE | 2019-04-18 10:00 | NUR ---
Asked Dr Dotson to see pt for his right hallux (bunion) wound and left hallux dark brownish/blackish discoloration. Dr Dotson ordered to apply betadine q shift for 30 days and he said he will see pt next week.
[2019-04-18] MEDS: ACETAMINOPHEN 650 MG/20.3 ML UDC GT PRN (10:30)
[2019-04-18] MEDS: HYDROGEL DRESSING 90 GM TUBE TP SCH ×2 (11:00→20:55)
[2019-04-18] MEDS: Z GUARD REMEDY 4 OZ OINT TP SCH ×2 (11:00→20:56)
[2019-04-18] MEDS: CADEXOMER IODINE 40 GM TUBE TP SCH (11:00)
[2019-04-18] MEDS: VITAMINS A AND D 56.7 GM TUBE TP SCH ×2 (11:00→20:56)
[2019-04-18] MEDS: MINERAL OIL/PETROL OINT 396 GM JAR TP SCH ×2 (11:00→20:55)
[2019-04-18] MEDS: NEOMY SULF/BACITRAC ZN/POLY 15 GM TUBE TP SCH ×4 (11:00→20:56)
--- NOTE | 2019-04-18 12:00 | NUR ---
BRANDO Lozano saw pt today. Relayed urine culture result to her. No new order.
--- NOTE | 2019-04-18 17:00 | NUR ---
Seen by Dr Garduno. Pt's heart rate 89-91. Informed Dr Garduno that Carvedilol was DC'd since it was often being held due to pt's low heart rate. Dr Garduno ordered to give Metoprolol 12.5 mg GT q 12 hours for tachycardia. He mentioned that pt's son is concerned when pt's heart rate increases.
[2019-04-18] MEDS: NEPRO 1,000 ML BOTTLE GT PRN (18:36)
[2019-04-18] MEDS: METOPROLOL TARTRATE 25 MG TABLET PO SCH (20:55)
[2019-04-18] MEDS: BETADINE TP SCH ×2 (20:56)
[2019-04-18] MEDS: LATANOPROST EYE DROP 0.005% 2.5 ML BOTTLE EACHEYE SCH (21:59)
[2019-04-18] MEDS: TAMSULOSIN 0.4 MG CAP.SR.24H GT SCH (21:59)
[2019-04-18] MEDS: ATORVASTATIN 10 MG TABLET GT SCH (21:59)
[2019-04-18] MEDS: INSULIN GLARGINE, 100 UNIT/ML CARTRIDGE SQ SCH (22:35)
[2019-04-19] VITALS (8 sets, daily range): BP systolic 102–128; BP diastolic 48–78
[2019-04-19] MEDS: BLOOD SUGAR DIAGNOSTIC 1 EACH STRIP IN SCH ×4 (00:42→17:54)
[2019-04-19] MEDS: REGLAN GT SCH ×4 (00:42→17:38)
[2019-04-19] MEDS: SIMETHICONE SUSP 40 MG/0.6 ML BOTTLE GT SCH ×4 (00:42→17:38)
[2019-04-19] MEDS: INSULIN REGULAR, HUMAN 100 UNIT/ML 10 ML VIAL SQ SCH ×4 (00:44→17:54)
[2019-04-19] MEDS: IPRATROPIUM NEB FS 0.5 MG/2.5 ML AMPUL.NEB IH SCH ×4 (01:30→19:57)
[2019-04-19] MEDS: LACOSAMIDE ORAL SOLN 50 MG/5 ML UDC GT SCH ×2 (05:23→17:38)
[2019-04-19] MEDS: OMEPRAZOLE 20 MG CAPSULE.DR GT SCH (05:23)
[2019-04-19] MEDS: PROSTAT (PYXIS) 30 ML UDC GT SCH ×3 (05:23→21:55)
[2019-04-19] MEDS: MINERAL OIL/PETROL OINT 396 GM JAR TP SCH ×2 (09:00→21:55)
[2019-04-19] MEDS: ACIDOPHILUS/BULGARICUS 1 EACH TAB.CHEW GT SCH (09:00)
[2019-04-19] MEDS: HYDROGEL DRESSING 90 GM TUBE TP SCH ×2 (09:00→21:55)
[2019-04-19] MEDS: METOPROLOL TARTRATE 25 MG TABLET PO SCH ×2 (09:00→21:55)
[2019-04-19] MEDS: ASCORBIC ACID 500 MG TABLET GT SCH (09:00)
[2019-04-19] MEDS: CHLORHEXIDINE GLUCONATE 15 ML UDC MM SCH ×2 (09:00→21:55)
[2019-04-19] MEDS: NEOMY SULF/BACITRAC ZN/POLY 15 GM TUBE TP SCH ×4 (09:00→21:55)
[2019-04-19] MEDS: DORZOLAMIDE OPTH 2% 10 ML BOTTLE EACHEYE SCH ×3 (09:00→17:38)
[2019-04-19] MEDS: LINAGLIPTIN 5 MG TABLET GT SCH (09:00)
[2019-04-19] MEDS: FINASTERIDE (5 MG) 5 MG TABLET GT SCH (09:00)
[2019-04-19] MEDS: VITAMINS A AND D 56.7 GM TUBE TP SCH ×2 (09:00→21:55)
[2019-04-19] MEDS: CADEXOMER IODINE 40 GM TUBE TP SCH (09:00)
[2019-04-19] MEDS: POTASSIUM CHLORIDE 20 MEQ POWDER PACKET GT SCH (09:00)
[2019-04-19] MEDS: BETADINE TP SCH ×4 (09:00→21:55)
[2019-04-19] MEDS: Z GUARD REMEDY 4 OZ OINT TP SCH ×2 (09:00→21:55)
[2019-04-19] MEDS: HYDROGEN PEROXIDE 480 ML BOTTLE TP SCH ×2 (09:58→20:11)
[2019-04-19] MEDS: NEPRO 1,000 ML BOTTLE GT PRN (15:00)
--- NOTE | 2019-04-19 15:42 | NUR ---
Patient was seen by hogshead hand, Dr. Reddy [phone] today for annual optometry appointment.Patient's responsible democrat, Jose Johns [phone] was informed and they expressed understanding and contentment.
[2019-04-19] MEDS: ATORVASTATIN 10 MG TABLET GT SCH (22:19)
[2019-04-19] MEDS: TAMSULOSIN 0.4 MG CAP.SR.24H GT SCH (22:19)
[2019-04-19] MEDS: LATANOPROST EYE DROP 0.005% 2.5 ML BOTTLE EACHEYE SCH (22:19)
[2019-04-19] MEDS: INSULIN GLARGINE, 100 UNIT/ML CARTRIDGE SQ SCH (22:20)
[2019-04-20] VITALS (7 sets, daily range): BP systolic 105–137; BP diastolic 60–87
[2019-04-20] MEDS: BLOOD SUGAR DIAGNOSTIC 1 EACH STRIP IN SCH ×4 (00:59→17:17)
[2019-04-20] MEDS: REGLAN GT SCH ×4 (00:59→17:17)
[2019-04-20] MEDS: SIMETHICONE SUSP 40 MG/0.6 ML BOTTLE GT SCH ×4 (00:59→17:17)
[2019-04-20] MEDS: IPRATROPIUM NEB FS 0.5 MG/2.5 ML AMPUL.NEB IH SCH ×4 (00:59→20:12)
[2019-04-20] MEDS: INSULIN REGULAR, HUMAN 100 UNIT/ML 10 ML VIAL SQ SCH ×4 (01:00→17:21)
[2019-04-20] MEDS: LACOSAMIDE ORAL SOLN 50 MG/5 ML UDC GT SCH ×2 (05:22→17:17)
[2019-04-20] MEDS: OMEPRAZOLE 20 MG CAPSULE.DR GT SCH (05:22)
[2019-04-20] MEDS: PROSTAT (PYXIS) 30 ML UDC GT SCH ×3 (05:22→21:36)
--- NOTE | 2019-04-20 05:55 | NUR ---
Went out for dialysis via [facility]. Stable vital signs. calm and comfortable. Trach secured and intact. on cool aeresol at 28% fio2. No s/s of resp distress. All emergency equipment taken/ambu-bag and back up trach. Jeremiah cath on left chest intact. dressing clean and dry.
[2019-04-20] MEDS: FINASTERIDE (5 MG) 5 MG TABLET GT SCH (09:00)
[2019-04-20] MEDS: METOPROLOL TARTRATE 25 MG TABLET PO SCH ×2 (09:00→21:38)
[2019-04-20] MEDS: HYDROGEN PEROXIDE 480 ML BOTTLE TP SCH ×2 (09:00→21:40)
[2019-04-20] MEDS: LINAGLIPTIN 5 MG TABLET GT SCH (09:00)
[2019-04-20] MEDS: POTASSIUM CHLORIDE 20 MEQ POWDER PACKET GT SCH (09:00)
[2019-04-20] MEDS: ASCORBIC ACID 500 MG TABLET GT SCH (09:00)
[2019-04-20] MEDS: CHLORHEXIDINE GLUCONATE 15 ML UDC MM SCH ×2 (09:00→21:36)
[2019-04-20] MEDS: ACIDOPHILUS/BULGARICUS 1 EACH TAB.CHEW GT SCH (09:00)
[2019-04-20] MEDS: DORZOLAMIDE OPTH 2% 10 ML BOTTLE EACHEYE SCH ×3 (09:00→17:17)
--- NOTE | 2019-04-20 10:20 | NUR ---
Resident returned from S/P hemodialysis treatment, no s/s of any complications noted. LT upper chest HD catheter intact, no bleeding noted. Covered with dressing, clean and dry. No respiratory distress noted. Kept comfortable in bed.
[2019-04-20] MEDS: BETADINE TP SCH ×4 (11:00→21:40)
[2019-04-20] MEDS: NEOMY SULF/BACITRAC ZN/POLY 15 GM TUBE TP SCH ×4 (11:00→21:40)
[2019-04-20] MEDS: Z GUARD REMEDY 4 OZ OINT TP SCH ×2 (11:00→21:41)
[2019-04-20] MEDS: HYDROGEL DRESSING 90 GM TUBE TP SCH ×2 (11:00→21:40)
[2019-04-20] MEDS: MINERAL OIL/PETROL OINT 396 GM JAR TP SCH ×2 (11:00→21:39)
[2019-04-20] MEDS: VITAMINS A AND D 56.7 GM TUBE TP SCH ×2 (11:00→21:41)
[2019-04-20] MEDS: CADEXOMER IODINE 40 GM TUBE TP SCH (11:00)
[2019-04-20] MEDS: LATANOPROST EYE DROP 0.005% 2.5 ML BOTTLE EACHEYE SCH (21:41)
[2019-04-20] MEDS: TAMSULOSIN 0.4 MG CAP.SR.24H GT SCH (21:42)
[2019-04-20] MEDS: ATORVASTATIN 10 MG TABLET GT SCH (21:42)
[2019-04-20] MEDS: INSULIN GLARGINE, 100 UNIT/ML CARTRIDGE SQ SCH (22:06)
[2019-04-21] VITALS (8 sets, daily range): BP systolic 106–131; BP diastolic 53–77
[2019-04-21] MEDS: BLOOD SUGAR DIAGNOSTIC 1 EACH STRIP IN SCH ×4 (00:05→17:15)
[2019-04-21] MEDS: INSULIN REGULAR, HUMAN 100 UNIT/ML 10 ML VIAL SQ SCH ×4 (00:07→17:14)
[2019-04-21] MEDS: SIMETHICONE SUSP 40 MG/0.6 ML BOTTLE GT SCH ×4 (00:12→17:13)
[2019-04-21] MEDS: REGLAN GT SCH ×4 (00:12→17:13)
[2019-04-21] MEDS: IPRATROPIUM NEB FS 0.5 MG/2.5 ML AMPUL.NEB IH SCH ×4 (02:10→19:40)
[2019-04-21] MEDS: NEPRO 1,000 ML BOTTLE GT PRN (05:05)
[2019-04-21] MEDS: PROSTAT (PYXIS) 30 ML UDC GT SCH ×3 (05:56→21:29)
[2019-04-21] MEDS: OMEPRAZOLE 20 MG CAPSULE.DR GT SCH (05:56)
[2019-04-21] MEDS: LACOSAMIDE ORAL SOLN 50 MG/5 ML UDC GT SCH ×2 (05:56→17:13)
[2019-04-21] MEDS: HYDROGEN PEROXIDE 480 ML BOTTLE TP SCH ×2 (09:00→21:40)
[2019-04-21] MEDS: ACIDOPHILUS/BULGARICUS 1 EACH TAB.CHEW GT SCH (09:17)
[2019-04-21] MEDS: CHLORHEXIDINE GLUCONATE 15 ML UDC MM SCH ×2 (09:17→21:29)
[2019-04-21] MEDS: FINASTERIDE (5 MG) 5 MG TABLET GT SCH (09:17)
[2019-04-21] MEDS: LINAGLIPTIN 5 MG TABLET GT SCH (09:17)
[2019-04-21] MEDS: POTASSIUM CHLORIDE 20 MEQ POWDER PACKET GT SCH (09:17)
[2019-04-21] MEDS: DORZOLAMIDE OPTH 2% 10 ML BOTTLE EACHEYE SCH ×3 (09:17→17:13)
[2019-04-21] MEDS: ASCORBIC ACID 500 MG TABLET GT SCH (09:17)
[2019-04-21] MEDS: METOPROLOL TARTRATE 25 MG TABLET PO SCH ×2 (09:18→21:30)
[2019-04-21] MEDS: BETADINE TP SCH ×4 (09:55→21:31)
[2019-04-21] MEDS: Z GUARD REMEDY 4 OZ OINT TP SCH ×2 (09:55→21:31)
[2019-04-21] MEDS: MINERAL OIL/PETROL OINT 396 GM JAR TP SCH ×2 (09:55→21:30)
[2019-04-21] MEDS: CADEXOMER IODINE 40 GM TUBE TP SCH (09:55)
[2019-04-21] MEDS: VITAMINS A AND D 56.7 GM TUBE TP SCH ×2 (09:55→21:31)
[2019-04-21] MEDS: NEOMY SULF/BACITRAC ZN/POLY 15 GM TUBE TP SCH ×4 (09:55→21:31)
[2019-04-21] MEDS: HYDROGEL DRESSING 90 GM TUBE TP SCH ×2 (09:55→21:30)
[2019-04-21] MEDS: ATORVASTATIN 10 MG TABLET GT SCH (21:33)
[2019-04-21] MEDS: LATANOPROST EYE DROP 0.005% 2.5 ML BOTTLE EACHEYE SCH (21:33)
[2019-04-21] MEDS: TAMSULOSIN 0.4 MG CAP.SR.24H GT SCH (21:33)
[2019-04-21] MEDS: INSULIN GLARGINE, 100 UNIT/ML CARTRIDGE SQ SCH (21:41)
[2019-04-22] VITALS (8 sets, daily range): BP systolic 108–142; BP diastolic 52–90
[2019-04-22] MEDS: REGLAN GT SCH ×4 (00:34→17:03)
[2019-04-22] MEDS: SIMETHICONE SUSP 40 MG/0.6 ML BOTTLE GT SCH ×4 (00:34→17:03)
[2019-04-22] MEDS: BLOOD SUGAR DIAGNOSTIC 1 EACH STRIP IN SCH ×4 (00:34→17:05)
[2019-04-22] MEDS: INSULIN REGULAR, HUMAN 100 UNIT/ML 10 ML VIAL SQ SCH ×4 (00:37→17:04)
[2019-04-22] MEDS: NEPRO 1,000 ML BOTTLE GT PRN (01:08)
[2019-04-22] MEDS: IPRATROPIUM NEB FS 0.5 MG/2.5 ML AMPUL.NEB IH SCH ×4 (01:19→19:57)
--- NOTE | 2019-04-22 02:20 | NUR ---
RT NOTES TRACH TUBE IN PLACE, PATENT, AND SECURED WITH TRACH TIE. ALARMS ON AND AUDIBLE. VENT PLUGGED IN TO RED OUTLET. AMBU BAG AND BACK UP TRACH BY THE BEDSIDE. SX COPIOUS THICK PALE YELLOW SECRETIONS. NO RESP DISTRESS AT THIS TIME. PLACED ON VENT PER MD ORDERS, CUFF INFLATED. TOLERATE WELL. Addendum: 04/22/19 at 0221 by JHON PARISH RT Amended: Links added.
[2019-04-22] MEDS: PROSTAT (PYXIS) 30 ML UDC GT SCH ×3 (05:53→20:40)
[2019-04-22] MEDS: OMEPRAZOLE 20 MG CAPSULE.DR GT SCH (05:54)
[2019-04-22] MEDS: LACOSAMIDE ORAL SOLN 50 MG/5 ML UDC GT SCH ×2 (05:55→17:03)
[2019-04-22] MEDS: HYDROGEN PEROXIDE 480 ML BOTTLE TP SCH ×2 (07:43→21:00)
[2019-04-22] MEDS: Z GUARD REMEDY 4 OZ OINT TP SCH ×2 (09:00→20:43)
[2019-04-22] MEDS: MINERAL OIL/PETROL OINT 396 GM JAR TP SCH ×2 (09:00→20:42)
[2019-04-22] MEDS: CADEXOMER IODINE 40 GM TUBE TP SCH (09:00)
[2019-04-22] MEDS: VITAMINS A AND D 56.7 GM TUBE TP SCH ×2 (09:00→20:43)
[2019-04-22] MEDS: HYDROGEL DRESSING 90 GM TUBE TP SCH ×2 (09:00→20:42)
[2019-04-22] MEDS: NEOMY SULF/BACITRAC ZN/POLY 15 GM TUBE TP SCH ×4 (09:00→20:43)
[2019-04-22] MEDS: BETADINE TP SCH ×4 (09:00→20:43)
[2019-04-22] MEDS: ACIDOPHILUS/BULGARICUS 1 EACH TAB.CHEW GT SCH (09:10)
[2019-04-22] MEDS: POTASSIUM CHLORIDE 20 MEQ POWDER PACKET GT SCH (09:10)
[2019-04-22] MEDS: DORZOLAMIDE OPTH 2% 10 ML BOTTLE EACHEYE SCH ×3 (09:10→17:03)
[2019-04-22] MEDS: ASCORBIC ACID 500 MG TABLET GT SCH (09:10)
[2019-04-22] MEDS: FINASTERIDE (5 MG) 5 MG TABLET GT SCH (09:10)
[2019-04-22] MEDS: LINAGLIPTIN 5 MG TABLET GT SCH (09:10)
[2019-04-22] MEDS: CHLORHEXIDINE GLUCONATE 15 ML UDC MM SCH ×2 (09:10→20:40)
[2019-04-22] MEDS: METOPROLOL TARTRATE 25 MG TABLET PO SCH ×2 (09:12→20:42)
--- NOTE | 2019-04-22 11:21 | NUR ---
Relayed recent blood sugar results to Dr Garduno. Pt on Lantus insulin 14 units SC q HS and Tradjenta [address] Garduno ordered to increase Lantus insulin to 16 units SC q HS. Addendum: 04/22/19 at 1128 by MAGDA LOBO RN Dr Nat grover.
--- NOTE | 2019-04-22 14:00 | NUR ---
RT NOTE: RECEIVED PT ON 28% C/A. NO RESPIRATORY DISTRESS NOTED. TRACH CHECKED SECURE AND PATENT. SXD AND LAVAGED PT Q ROUND AND NEEDED. TXS GIVEN ORDERED WITH NO ADVERSE REACTIONS NOTED. TRACH CARE DONE. SPARE TRACH AND AMBU BAG @ BEDSIDE. WILL CONTINUE TO MONITOR.
--- NOTE | 2019-04-22 16:00 | NUR ---
Pt's sacral and buttocks seen by Dr Randy Martell. He said to continue treatment of Hydrogel and Mepilex.
--- NOTE | 2019-04-22 17:37 | NUR ---
Pt was seen by Dr Dotson today. He examined pt's arterial wound and discoloration on the feet. He said he will ask another vascular surgeon to see pt. Vascular surgeon Dr Lancaster came and saw pt. He said there is nothing he can do for pt and he will talk with Dr Dotson.
[2019-04-22] MEDS: LATANOPROST EYE DROP 0.005% 2.5 ML BOTTLE EACHEYE SCH (21:32)
[2019-04-22] MEDS: ATORVASTATIN 10 MG TABLET GT SCH (21:33)
[2019-04-22] MEDS: TAMSULOSIN 0.4 MG CAP.SR.24H GT SCH (21:33)
[2019-04-22] MEDS: INSULIN GLARGINE, 100 UNIT/ML CARTRIDGE SQ SCH (21:33)
[2019-04-23] VITALS (7 sets, daily range): BP systolic 106–147; BP diastolic 44–69
[2019-04-23] MEDS: REGLAN GT SCH ×4 (00:26→18:15)
[2019-04-23] MEDS: BLOOD SUGAR DIAGNOSTIC 1 EACH STRIP IN SCH ×4 (00:26→18:15)
[2019-04-23] MEDS: SIMETHICONE SUSP 40 MG/0.6 ML BOTTLE GT SCH ×4 (00:26→18:15)
[2019-04-23] MEDS: INSULIN REGULAR, HUMAN 100 UNIT/ML 10 ML VIAL SQ SCH ×4 (00:27→18:16)
[2019-04-23] MEDS: NEPRO 1,000 ML BOTTLE GT PRN (00:28)
[2019-04-23] MEDS: IPRATROPIUM NEB FS 0.5 MG/2.5 ML AMPUL.NEB IH SCH ×4 (01:47→19:34)
[2019-04-23] MEDS: OMEPRAZOLE 20 MG CAPSULE.DR GT SCH (05:18)
[2019-04-23] MEDS: PROSTAT (PYXIS) 30 ML UDC GT SCH ×3 (05:18→20:52)
[2019-04-23] MEDS: LACOSAMIDE ORAL SOLN 50 MG/5 ML UDC GT SCH ×2 (05:19→18:15)
[2019-04-23] MEDS: HYDROGEN PEROXIDE 480 ML BOTTLE TP SCH ×3 (09:00→21:00)
[2019-04-23] MEDS: METOPROLOL TARTRATE 25 MG TABLET PO SCH ×2 (11:00→20:52)
[2019-04-23] MEDS: FINASTERIDE (5 MG) 5 MG TABLET GT SCH (11:00)
[2019-04-23] MEDS: ACIDOPHILUS/BULGARICUS 1 EACH TAB.CHEW GT SCH (11:00)
[2019-04-23] MEDS: POTASSIUM CHLORIDE 20 MEQ POWDER PACKET GT SCH (11:00)
[2019-04-23] MEDS: DORZOLAMIDE OPTH 2% 10 ML BOTTLE EACHEYE SCH ×3 (11:00→17:38)
[2019-04-23] MEDS: LINAGLIPTIN 5 MG TABLET GT SCH (11:00)
[2019-04-23] MEDS: ASCORBIC ACID 500 MG TABLET GT SCH (11:00)
[2019-04-23] MEDS: CADEXOMER IODINE 40 GM TUBE TP SCH (11:30)
[2019-04-23] MEDS: HYDROGEL DRESSING 90 GM TUBE TP SCH ×2 (11:30→20:52)
[2019-04-23] MEDS: BETADINE TP SCH ×4 (11:30→20:53)
[2019-04-23] MEDS: VITAMINS A AND D 56.7 GM TUBE TP SCH ×2 (11:30→20:53)
[2019-04-23] MEDS: Z GUARD REMEDY 4 OZ OINT TP SCH ×2 (11:30→20:53)
[2019-04-23] MEDS: MINERAL OIL/PETROL OINT 396 GM JAR TP SCH ×2 (11:30→20:52)
[2019-04-23] MEDS: NEOMY SULF/BACITRAC ZN/POLY 15 GM TUBE TP SCH ×4 (11:30→20:53)
[2019-04-23] MEDS: CHLORHEXIDINE GLUCONATE 15 ML UDC MM SCH ×2 (12:28→21:45)
[2019-04-23] MEDS: TAMSULOSIN 0.4 MG CAP.SR.24H GT SCH (21:45)
[2019-04-23] MEDS: LATANOPROST EYE DROP 0.005% 2.5 ML BOTTLE EACHEYE SCH (21:45)
[2019-04-23] MEDS: ATORVASTATIN 10 MG TABLET GT SCH (21:45)
[2019-04-23] MEDS: INSULIN GLARGINE, 100 UNIT/ML CARTRIDGE SQ SCH (21:46)
[2019-04-24] VITALS (7 sets, daily range): BP systolic 96–147; BP diastolic 52–90
[2019-04-24] MEDS: REGLAN GT SCH ×4 (00:29→18:48)
[2019-04-24] MEDS: SIMETHICONE SUSP 40 MG/0.6 ML BOTTLE GT SCH ×4 (00:29→18:48)
[2019-04-24] MEDS: BLOOD SUGAR DIAGNOSTIC 1 EACH STRIP IN SCH ×4 (00:30→18:48)
[2019-04-24] MEDS: INSULIN REGULAR, HUMAN 100 UNIT/ML 10 ML VIAL SQ SCH ×4 (00:32→18:49)
[2019-04-24] MEDS: NEPRO 1,000 ML BOTTLE GT PRN ×2 (00:38→19:01)
[2019-04-24] MEDS: IPRATROPIUM NEB FS 0.5 MG/2.5 ML AMPUL.NEB IH SCH ×4 (00:52→20:00)
[2019-04-24] MEDS: PROSTAT (PYXIS) 30 ML UDC GT SCH ×3 (05:44→21:05)
[2019-04-24] MEDS: OMEPRAZOLE 20 MG CAPSULE.DR GT SCH (05:46)
[2019-04-24] MEDS: LACOSAMIDE ORAL SOLN 50 MG/5 ML UDC GT SCH ×2 (05:47→18:48)
[2019-04-24] MEDS: POTASSIUM CHLORIDE 20 MEQ POWDER PACKET GT SCH (09:00)
[2019-04-24] MEDS: FINASTERIDE (5 MG) 5 MG TABLET GT SCH (09:00)
[2019-04-24] MEDS: NEOMY SULF/BACITRAC ZN/POLY 15 GM TUBE TP SCH ×4 (09:00→21:06)
[2019-04-24] MEDS: LINAGLIPTIN 5 MG TABLET GT SCH (09:00)
[2019-04-24] MEDS: BETADINE TP SCH ×4 (09:00→21:06)
[2019-04-24] MEDS: MINERAL OIL/PETROL OINT 396 GM JAR TP SCH ×2 (09:00→21:06)
[2019-04-24] MEDS: CHLORHEXIDINE GLUCONATE 15 ML UDC MM SCH ×2 (09:00→21:05)
[2019-04-24] MEDS: DORZOLAMIDE OPTH 2% 10 ML BOTTLE EACHEYE SCH ×3 (09:00→17:00)
[2019-04-24] MEDS: ACIDOPHILUS/BULGARICUS 1 EACH TAB.CHEW GT SCH (09:00)
[2019-04-24] MEDS: ASCORBIC ACID 500 MG TABLET GT SCH (09:00)
[2019-04-24] MEDS: VITAMINS A AND D 56.7 GM TUBE TP SCH ×2 (09:00→21:06)
[2019-04-24] MEDS: HYDROGEL DRESSING 90 GM TUBE TP SCH ×2 (09:00→21:06)
[2019-04-24] MEDS: METOPROLOL TARTRATE 25 MG TABLET PO SCH ×2 (09:00→21:05)
[2019-04-24] MEDS: HYDROGEN PEROXIDE 480 ML BOTTLE TP SCH ×2 (09:00→20:01)
[2019-04-24] MEDS: CADEXOMER IODINE 40 GM TUBE TP SCH (09:00)
[2019-04-24] MEDS: Z GUARD REMEDY 4 OZ OINT TP SCH ×2 (09:00→21:06)
--- NOTE | 2019-04-24 09:00 | NUR ---
Seen and examined by Dr. Garduno, informed MD that patient's son is concern about the increasing BS. He is requesting if OK to put his feeding rate back at 50 cc/hr x 20 hours, he said that he noticed that BS started going up when the rate was increased to 65 cc/hr x [address] Garduno said to keep current rate but increase Lantus to 18 units. Resident also noted with tracheal bleeding this morning, he is not on any anticoagulant medication. Ice lavage initiated. Dr. Garduno also seen some of patient's wound due to opened blister, he said to send the fluid of the newly formed blister for culture when it ruptures. Endorsed.
--- NOTE | 2019-04-24 16:00 | NUR ---
Resident's son Dr. Johns informed of new order today from Dr. Garduno, appreciated the call.
--- NOTE | 2019-04-24 16:20 | NUR ---
CHANI called patients son, Jose Johns to inform him that the patient has received mail and to verify what he would like for [facility] to do with mail. Call went to voicemail and CHANI left message communicating the above stated. CHANI left call back number.
--- NOTE | 2019-04-24 17:56 | NUR ---
Referred generalized opened blisters/wounds to BRANDO Lanier, she saw photo's taken today. She said that she will discuss it it with Dr. Padilla and if biopsy is indicated to confirm diagnosis.
[2019-04-24] MEDS: LATANOPROST EYE DROP 0.005% 2.5 ML BOTTLE EACHEYE SCH (21:59)
[2019-04-24] MEDS: TAMSULOSIN 0.4 MG CAP.SR.24H GT SCH (21:59)
[2019-04-24] MEDS: ATORVASTATIN 10 MG TABLET GT SCH (21:59)
[2019-04-24] MEDS: INSULIN GLARGINE, 100 UNIT/ML CARTRIDGE SQ SCH (21:59)
[2019-04-25] VITALS (7 sets, daily range): BP systolic 105–137; BP diastolic 60–69
[2019-04-25] MEDS: REGLAN GT SCH ×5 (00:37→23:32)
[2019-04-25] MEDS: SIMETHICONE SUSP 40 MG/0.6 ML BOTTLE GT SCH ×5 (00:37→23:32)
[2019-04-25] MEDS: BLOOD SUGAR DIAGNOSTIC 1 EACH STRIP IN SCH ×5 (00:37→23:32)
[2019-04-25] MEDS: INSULIN REGULAR, HUMAN 100 UNIT/ML 10 ML VIAL SQ SCH ×5 (00:39→23:33)
[2019-04-25] MEDS: IPRATROPIUM NEB FS 0.5 MG/2.5 ML AMPUL.NEB IH SCH ×4 (01:06→20:09)
[2019-04-25] MEDS: PROSTAT (PYXIS) 30 ML UDC GT SCH ×3 (05:00→21:50)
--- NOTE | 2019-04-25 05:57 | NUR ---
Right hand open blister,culture send per Dr. Garduno order.Treatment with xerofoam dressing cover with mepilex q shift x 14 days.
[2019-04-25] MEDS: LACOSAMIDE ORAL SOLN 50 MG/5 ML UDC GT SCH ×2 (06:22→17:46)
[2019-04-25] MEDS: OMEPRAZOLE 20 MG CAPSULE.DR GT SCH (06:22)
[2019-04-25] MEDS: HYDROGEN PEROXIDE 480 ML BOTTLE TP SCH ×2 (09:00→21:00)
[2019-04-25] MEDS: FINASTERIDE (5 MG) 5 MG TABLET GT SCH (10:30)
[2019-04-25] MEDS: METOPROLOL TARTRATE 25 MG TABLET PO SCH ×2 (10:30→21:51)
[2019-04-25] MEDS: ASCORBIC ACID 500 MG TABLET GT SCH (10:30)
[2019-04-25] MEDS: ACIDOPHILUS/BULGARICUS 1 EACH TAB.CHEW GT SCH (10:30)
[2019-04-25] MEDS: CHLORHEXIDINE GLUCONATE 15 ML UDC MM SCH ×2 (10:30→21:50)
[2019-04-25] MEDS: LINAGLIPTIN 5 MG TABLET GT SCH (10:30)
[2019-04-25] MEDS: MINERAL OIL/PETROL OINT 396 GM JAR TP SCH ×2 (10:30→21:51)
[2019-04-25] MEDS: POTASSIUM CHLORIDE 20 MEQ POWDER PACKET GT SCH (10:30)
[2019-04-25] MEDS: DORZOLAMIDE OPTH 2% 10 ML BOTTLE EACHEYE SCH ×3 (10:30→17:46)
[2019-04-25] MEDS: Z GUARD REMEDY 4 OZ OINT TP SCH ×2 (10:45→21:51)
[2019-04-25] MEDS: HYDROGEL DRESSING 90 GM TUBE TP SCH ×2 (10:45→21:51)
[2019-04-25] MEDS: NEOMY SULF/BACITRAC ZN/POLY 15 GM TUBE TP SCH ×4 (10:45→21:51)
[2019-04-25] MEDS: BETADINE TP SCH ×4 (10:45→21:51)
[2019-04-25] MEDS: VITAMINS A AND D 56.7 GM TUBE TP SCH ×2 (10:45→21:51)
[2019-04-25] MEDS: CADEXOMER IODINE 40 GM TUBE TP SCH (10:45)
--- NOTE | 2019-04-25 11:36 | NUR ---
SW followed up with patients son, Dr. Johns regarding patient mail. Per Dr. Johns, he would like for the patients mail to be given to him upon his next visit today after 5 pm. SW informed charge nurse and SW to leave mail with charge nurse as DR. Manriquez visit will be after work hours.
--- NOTE | 2019-04-25 11:51 | NUR ---
CLARIFIED THE GT FEEDING ORDER WITH SYMONE, EXTRUDING PRESS OPERATOR THAT THE NEPRO GT FEEDING IS AT 65ML/HR. PER SYMONE PATIENT WILL BE ON NEPRO GT FEEDING AT 50ML/HR. MADE DAVID FROM [facility] RENAL CARE AWARE WELL. CONTINUE TO MONITOR PATIENT'S BLOOD SUGAR.
--- NOTE | 2019-04-25 16:17 | NUR ---
CHANI spoke to patient's son, Dr. Johns upon his visit to patient. CHANI gave Dr. Johns the patient's mail.
--- NOTE | 2019-04-25 17:40 | NUR ---
MADE DR. LORENZANA AWARE OF THE DECREASE IN GT FEEDING RATE OF NEPRO 50ML/HR. SON INSISTED TO ASK MD IF LANTUS ORDER OF 18 UNITS SHOULD BE CHANGED AND LOWERED WITH THE NEW RATE. PER DR. LORENZANA ORDER IS STILL LANTUS 18 UNITS AT HS. WILL RELAY TO PATIENT'S SON.
[2019-04-25] MEDS: NEPRO 1,000 ML BOTTLE GT PRN (17:46)
[2019-04-25] MEDS: ACETAMINOPHEN 650 MG/20.3 ML UDC GT PRN (20:21)
[2019-04-25] MEDS: ATORVASTATIN 10 MG TABLET GT SCH (21:51)
[2019-04-25] MEDS: TAMSULOSIN 0.4 MG CAP.SR.24H GT SCH (21:51)
[2019-04-25] MEDS: LATANOPROST EYE DROP 0.005% 2.5 ML BOTTLE EACHEYE SCH (21:51)
[2019-04-25] MEDS: INSULIN GLARGINE, 100 UNIT/ML CARTRIDGE SQ SCH (22:18)
[2019-04-26] VITALS (8 sets, daily range): BP systolic 113–133; BP diastolic 58–74
[2019-04-26] MEDS: IPRATROPIUM NEB FS 0.5 MG/2.5 ML AMPUL.NEB IH SCH ×4 (02:01→19:53)
[2019-04-26] MEDS: PROSTAT (PYXIS) 30 ML UDC GT SCH ×3 (05:36→21:53)
[2019-04-26] MEDS: LACOSAMIDE ORAL SOLN 50 MG/5 ML UDC GT SCH ×2 (05:36→18:05)
[2019-04-26] MEDS: OMEPRAZOLE 20 MG CAPSULE.DR GT SCH (05:36)
[2019-04-26] MEDS: SIMETHICONE SUSP 40 MG/0.6 ML BOTTLE GT SCH ×3 (05:36→18:03)
[2019-04-26] MEDS: BLOOD SUGAR DIAGNOSTIC 1 EACH STRIP IN SCH ×3 (05:36→18:05)
[2019-04-26] MEDS: REGLAN GT SCH ×3 (05:36→18:03)
[2019-04-26] MEDS: INSULIN REGULAR, HUMAN 100 UNIT/ML 10 ML VIAL SQ SCH ×3 (05:37→18:07)
[2019-04-26] MEDS: HYDROGEN PEROXIDE 480 ML BOTTLE TP SCH ×2 (07:49→19:53)
[2019-04-26] MEDS: NEOMY SULF/BACITRAC ZN/POLY 15 GM TUBE TP SCH ×4 (09:00→21:54)
[2019-04-26] MEDS: HYDROGEL DRESSING 90 GM TUBE TP SCH ×2 (09:00→21:54)
[2019-04-26] MEDS: VITAMINS A AND D 56.7 GM TUBE TP SCH ×2 (09:00→21:55)
[2019-04-26] MEDS: CADEXOMER IODINE 40 GM TUBE TP SCH (09:00)
[2019-04-26] MEDS: BETADINE TP SCH ×4 (09:00→21:54)
[2019-04-26] MEDS: MINERAL OIL/PETROL OINT 396 GM JAR TP SCH ×2 (09:00→21:54)
[2019-04-26] MEDS: Z GUARD REMEDY 4 OZ OINT TP SCH ×2 (09:00→21:54)
[2019-04-26] MEDS: DORZOLAMIDE OPTH 2% 10 ML BOTTLE EACHEYE SCH ×3 (09:02→17:00)
[2019-04-26] MEDS: ACIDOPHILUS/BULGARICUS 1 EACH TAB.CHEW GT SCH (09:02)
[2019-04-26] MEDS: FINASTERIDE (5 MG) 5 MG TABLET GT SCH (09:02)
[2019-04-26] MEDS: CHLORHEXIDINE GLUCONATE 15 ML UDC MM SCH ×2 (09:02→21:53)
[2019-04-26] MEDS: METOPROLOL TARTRATE 25 MG TABLET PO SCH ×2 (09:02→21:53)
[2019-04-26] MEDS: LINAGLIPTIN 5 MG TABLET GT SCH (09:02)
[2019-04-26] MEDS: ASCORBIC ACID 500 MG TABLET GT SCH (09:02)
[2019-04-26] MEDS: POTASSIUM CHLORIDE 20 MEQ POWDER PACKET GT SCH (09:02)
[2019-04-26] MEDS: NEPRO 1,000 ML BOTTLE GT PRN (18:11)
[2019-04-26] MEDS: INSULIN GLARGINE, 100 UNIT/ML CARTRIDGE SQ SCH (21:55)
[2019-04-26] MEDS: ATORVASTATIN 10 MG TABLET GT SCH (21:55)
[2019-04-26] MEDS: TAMSULOSIN 0.4 MG CAP.SR.24H GT SCH (21:55)
[2019-04-26] MEDS: LATANOPROST EYE DROP 0.005% 2.5 ML BOTTLE EACHEYE SCH (21:55)
[2019-04-27] VITALS (7 sets, daily range): BP systolic 101–114; BP diastolic 54–70
[2019-04-27] MEDS: SIMETHICONE SUSP 40 MG/0.6 ML BOTTLE GT SCH ×4 (00:49→17:21)
[2019-04-27] MEDS: REGLAN GT SCH ×4 (00:49→18:49)
[2019-04-27] MEDS: BLOOD SUGAR DIAGNOSTIC 1 EACH STRIP IN SCH ×4 (00:49→17:21)
[2019-04-27] MEDS: INSULIN REGULAR, HUMAN 100 UNIT/ML 10 ML VIAL SQ SCH ×4 (00:51→17:25)
[2019-04-27] MEDS: IPRATROPIUM NEB FS 0.5 MG/2.5 ML AMPUL.NEB IH SCH ×4 (01:22→19:24)
--- NOTE | 2019-04-27 03:45 | NUR ---
RT NOTE: RECEIVED PT ON 28% C/A. PLACED PT ON ORDERED VENT SETTINGS PER MD NOC ORDER. NO RESPIRATORY DISTRESS NOTED. TRACH CHECKED SECURE AND PATENT. SXD AND LAVAGED PT Q ROUND AND NEEDED. TXS GIVEN ORDERED WITH NO ADVERSE REACTIONS NOTED. TRACH CARE DONE. SPARE TRACH AND AMBU BAG @ BEDSIDE. ALARMS CHECKED AND AUDIBLE. VENT PLUGGED INTO RED OUTLET.
[2019-04-27] MEDS: LACOSAMIDE ORAL SOLN 50 MG/5 ML UDC GT SCH ×2 (05:12→17:21)
[2019-04-27] MEDS: OMEPRAZOLE 20 MG CAPSULE.DR GT SCH (05:12)
[2019-04-27] MEDS: PROSTAT (PYXIS) 30 ML UDC GT SCH ×3 (05:12→21:00)
--- NOTE | 2019-04-27 06:16 | NUR ---
RN NOTES: left for dialysis at 0615 via [facility].v/s BP-101/67 NM-96 RR-18 T-98.6 . No pain or discomfort. Trach secured and intact. on cool aeresol at 28% fio2. No SOB. All emergency equipment taken/ambu-bag and back up trach. Jeremiah cath on left chest intact. dressing intact, no drainage.
--- NOTE | 2019-04-27 06:18 | NUR ---
pt out for dialysis via [facility]. vital signs stable. calm and comfortable. Trach secured and intact. on cool aeresol at 28% fio2. All emergency equipment taken/ambu-bag and back up trach. Jeremiah cath on left chest intact. dressing clean and dry.
[2019-04-27] MEDS: HYDROGEN PEROXIDE 480 ML BOTTLE TP SCH ×2 (09:00→21:00)
[2019-04-27] MEDS: DORZOLAMIDE OPTH 2% 10 ML BOTTLE EACHEYE SCH ×3 (09:00→17:31)
[2019-04-27] MEDS: MINERAL OIL/PETROL OINT 396 GM JAR TP SCH ×2 (09:00→21:00)
[2019-04-27] MEDS: ASCORBIC ACID 500 MG TABLET GT SCH (09:00)
[2019-04-27] MEDS: LINAGLIPTIN 5 MG TABLET GT SCH (09:00)
[2019-04-27] MEDS: FINASTERIDE (5 MG) 5 MG TABLET GT SCH (09:00)
[2019-04-27] MEDS: Z GUARD REMEDY 4 OZ OINT TP SCH ×2 (09:00→21:00)
[2019-04-27] MEDS: POTASSIUM CHLORIDE 20 MEQ POWDER PACKET GT SCH (09:00)
[2019-04-27] MEDS: METOPROLOL TARTRATE 25 MG TABLET PO SCH ×2 (09:00→21:00)
[2019-04-27] MEDS: ACIDOPHILUS/BULGARICUS 1 EACH TAB.CHEW GT SCH (09:00)
[2019-04-27] MEDS: VITAMINS A AND D 56.7 GM TUBE TP SCH ×2 (09:00→21:00)
[2019-04-27] MEDS: CHLORHEXIDINE GLUCONATE 15 ML UDC MM SCH ×2 (09:00→21:00)
--- NOTE | 2019-04-27 09:00 | NUR ---
AT 0900 RESIDENT WAS OUT OF FACILITY NO VITAL SIGNS WERE TAKEN. Addendum: 04/27/19 at 1548 by JOCELYN GUTHRIE RN Amended: Links added.
--- NOTE | 2019-04-27 10:53 | NUR ---
RESIDENT RETURNED FROM DIALYSIS CENTER, AT ARRIVAL VITAL SIGNS WERE TAKEN B/P 115/72, PULSE 103, TEMP 98.8, RESP RATE 16, PAIN 0/10, NO FACIAL GRIMACING, CONNECTED TO COOL AEROSOL, TRACHEAL SUCTIONING WITH MINIMAL AMOUNT OF SECRETIONS, PRE POST WT 77.2 KG , AND POST WEIGHT 76.8, LEFT CHEST CATHETER INTACT PATENT, NO BLEEDING.
[2019-04-27] MEDS: BETADINE TP SCH ×4 (11:00→21:00)
[2019-04-27] MEDS: CADEXOMER IODINE 40 GM TUBE TP SCH (11:00)
[2019-04-27] MEDS: NEOMY SULF/BACITRAC ZN/POLY 15 GM TUBE TP SCH ×4 (11:00→21:00)
[2019-04-27] MEDS: HYDROGEL DRESSING 90 GM TUBE TP SCH ×2 (11:00→21:00)
--- NOTE | 2019-04-27 18:00 | NUR ---
Dr. Garduno came to see patient this AM but he is still at the dialysis center. Dr. Garduno said to text him the the patient's blood sugar information for today. At noon patient's BS= 238 mg/dl and at 1720= 292mg/dl but noon BS is not a true representation because patient did not receive his feeding because patient is out for dialysis for 4 to 41/[address] Garduno said to keep current dose of Lantus. Also MD was made aware of the preliminary result of the culture from the fluid from his blister, Staph Aureus. New order given for Bactrim DS 1 tab Q 12 x 7days. Order carried out.
[2019-04-27] MEDS: ATORVASTATIN 10 MG TABLET GT SCH (22:00)
[2019-04-27] MEDS: INSULIN GLARGINE, 100 UNIT/ML CARTRIDGE SQ SCH (22:00)
[2019-04-27] MEDS: TAMSULOSIN 0.4 MG CAP.SR.24H GT SCH (22:00)
[2019-04-27] MEDS: LATANOPROST EYE DROP 0.005% 2.5 ML BOTTLE EACHEYE SCH (22:00)
[2019-04-28] VITALS (8 sets, daily range): BP systolic 103–162; BP diastolic 54–114
[2019-04-28] MEDS: REGLAN GT SCH ×5 (00:59→23:57)
[2019-04-28] MEDS: SIMETHICONE SUSP 40 MG/0.6 ML BOTTLE GT SCH ×5 (00:59→23:57)
[2019-04-28] MEDS: BLOOD SUGAR DIAGNOSTIC 1 EACH STRIP IN SCH ×5 (00:59→23:57)
[2019-04-28] MEDS: INSULIN REGULAR, HUMAN 100 UNIT/ML 10 ML VIAL SQ SCH ×5 (01:00→23:58)
[2019-04-28] MEDS: IPRATROPIUM NEB FS 0.5 MG/2.5 ML AMPUL.NEB IH SCH ×4 (01:51→20:25)
[2019-04-28] MEDS: PROSTAT (PYXIS) 30 ML UDC GT SCH ×3 (05:57→21:38)
[2019-04-28] MEDS: OMEPRAZOLE 20 MG CAPSULE.DR GT SCH (06:00)
[2019-04-28] MEDS: LACOSAMIDE ORAL SOLN 50 MG/5 ML UDC GT SCH ×2 (06:01→17:12)
[2019-04-28] MEDS: HYDROGEN PEROXIDE 480 ML BOTTLE TP SCH ×2 (08:39→21:39)
[2019-04-28] MEDS: DORZOLAMIDE OPTH 2% 10 ML BOTTLE EACHEYE SCH ×3 (08:45→17:09)
[2019-04-28] MEDS: POTASSIUM CHLORIDE 20 MEQ POWDER PACKET GT SCH (08:46)
[2019-04-28] MEDS: SULFAMETH/TRIMETH 800/160 MG 1 UDTAB TABLET GT SCH ×2 (08:46→21:38)
[2019-04-28] MEDS: ACIDOPHILUS/BULGARICUS 1 EACH TAB.CHEW GT SCH (08:46)
[2019-04-28] MEDS: FINASTERIDE (5 MG) 5 MG TABLET GT SCH (08:46)
[2019-04-28] MEDS: ASCORBIC ACID 500 MG TABLET GT SCH (08:47)
[2019-04-28] MEDS: LINAGLIPTIN 5 MG TABLET GT SCH (08:47)
[2019-04-28] MEDS: HYDROGEL DRESSING 90 GM TUBE TP SCH ×2 (08:51→21:39)
[2019-04-28] MEDS: MINERAL OIL/PETROL OINT 396 GM JAR TP SCH ×2 (08:51→21:39)
[2019-04-28] MEDS: BETADINE TP SCH ×4 (08:51→21:39)
[2019-04-28] MEDS: NEOMY SULF/BACITRAC ZN/POLY 15 GM TUBE TP SCH ×4 (08:51→21:39)
[2019-04-28] MEDS: METOPROLOL TARTRATE 25 MG TABLET PO SCH ×2 (08:51→21:38)
[2019-04-28] MEDS: CHLORHEXIDINE GLUCONATE 15 ML UDC MM SCH ×2 (08:51→21:38)
[2019-04-28] MEDS: hydrALAZINE HCL 25 MG TABLET GT PRN (08:52)
[2019-04-28] MEDS: VITAMINS A AND D 56.7 GM TUBE TP SCH ×2 (08:52→21:39)
[2019-04-28] MEDS: Z GUARD REMEDY 4 OZ OINT TP SCH ×2 (08:52→21:39)
[2019-04-28] MEDS: ACETAMINOPHEN 650 MG/20.3 ML UDC GT PRN (09:01)
[2019-04-28] MEDS: CADEXOMER IODINE 40 GM TUBE TP SCH (09:02)
--- NOTE | 2019-04-28 15:30 | NUR ---
Seen by BRANDO Pineda. Informed her of pt's elevated blood sugar levels. Also informed her of MRSA wound/open blister. BRANDO Pineda ordered to increase Lantus insulin from 18 units to 24 units SC q HS. Notified son.
--- NOTE | 2019-04-28 18:45 | NUR ---
Pt's son aware of MRSA from open blister on right hand and order to increase Lantus insulin from 18 to 24 units SC q HS due to elevated blood sugar levels. Asked pt's son if he has recently seen pt's multiple blisters especially on the left arm and right elbow. Pt's son said he has seen them that is why he is monitoring pt's blood sugars. He said that if the blood sugars are not controlled, then the blisters will not heal.
[2019-04-28] MEDS: LATANOPROST EYE DROP 0.005% 2.5 ML BOTTLE EACHEYE SCH (21:39)
[2019-04-28] MEDS: ATORVASTATIN 10 MG TABLET GT SCH (21:39)
[2019-04-28] MEDS: TAMSULOSIN 0.4 MG CAP.SR.24H GT SCH (21:39)
[2019-04-28] MEDS: INSULIN GLARGINE, 100 UNIT/ML CARTRIDGE SQ SCH (21:40)
[2019-04-29] VITALS (7 sets, daily range): BP systolic 111–151; BP diastolic 55–72
[2019-04-29] MEDS: PROSTAT (PYXIS) 30 ML UDC GT SCH ×3 (05:00→21:17)
[2019-04-29] MEDS: REGLAN GT SCH ×4 (06:32→23:29)
[2019-04-29] MEDS: OMEPRAZOLE 20 MG CAPSULE.DR GT SCH (06:33)
[2019-04-29] MEDS: LACOSAMIDE ORAL SOLN 50 MG/5 ML UDC GT SCH ×2 (06:33→17:39)
[2019-04-29] MEDS: BLOOD SUGAR DIAGNOSTIC 1 EACH STRIP IN SCH ×4 (06:33→23:29)
[2019-04-29] MEDS: SIMETHICONE SUSP 40 MG/0.6 ML BOTTLE GT SCH ×4 (06:33→23:29)
[2019-04-29] MEDS: INSULIN REGULAR, HUMAN 100 UNIT/ML 10 ML VIAL SQ SCH ×4 (06:35→23:30)
[2019-04-29] MEDS: IPRATROPIUM NEB FS 0.5 MG/2.5 ML AMPUL.NEB IH SCH ×3 (08:08→19:35)
[2019-04-29] MEDS: HYDROGEN PEROXIDE 480 ML BOTTLE TP SCH ×2 (08:09→21:18)
[2019-04-29] MEDS: CHLORHEXIDINE GLUCONATE 15 ML UDC MM SCH ×2 (09:00→21:17)
[2019-04-29] MEDS: FINASTERIDE (5 MG) 5 MG TABLET GT SCH (09:00)
[2019-04-29] MEDS: ACIDOPHILUS/BULGARICUS 1 EACH TAB.CHEW GT SCH (09:00)
[2019-04-29] MEDS: LINAGLIPTIN 5 MG TABLET GT SCH (09:00)
[2019-04-29] MEDS: DORZOLAMIDE OPTH 2% 10 ML BOTTLE EACHEYE SCH ×3 (09:00→17:39)
[2019-04-29] MEDS: ASCORBIC ACID 500 MG TABLET GT SCH (09:00)
[2019-04-29] MEDS: METOPROLOL TARTRATE 25 MG TABLET PO SCH ×2 (09:00→21:18)
[2019-04-29] MEDS: SULFAMETH/TRIMETH 800/160 MG 1 UDTAB TABLET GT SCH (09:00)
[2019-04-29] MEDS: POTASSIUM CHLORIDE 20MEQ TAB GT SCH (09:00)
[2019-04-29] MEDS: NEOMY SULF/BACITRAC ZN/POLY 15 GM TUBE TP SCH ×4 (11:30→21:18)
[2019-04-29] MEDS: Z GUARD REMEDY 4 OZ OINT TP SCH ×2 (11:30→21:18)
[2019-04-29] MEDS: BETADINE TP SCH ×4 (11:30→21:18)
[2019-04-29] MEDS: VITAMINS A AND D 56.7 GM TUBE TP SCH ×2 (11:30→21:19)
[2019-04-29] MEDS: HYDROGEL DRESSING 90 GM TUBE TP SCH ×2 (11:30→21:18)
[2019-04-29] MEDS: MINERAL OIL/PETROL OINT 396 GM JAR TP SCH ×2 (11:30→21:18)
[2019-04-29] MEDS: CADEXOMER IODINE 40 GM TUBE TP SCH (11:30)
[2019-04-29] MEDS: NEPRO 1,000 ML BOTTLE GT PRN (16:17)
[2019-04-29] MEDS ORDERED: DOXYCYCLINE HYCLATE (100 MG) 100 MG TABLET PO SCH (17:00)
--- NOTE | 2019-04-29 17:37 | NUR ---
Received order from BRANDO Hanks to DC Bactrim and start Vancomycin IV pharmacy to dose for MRSA open blister/wound on the right hand. Notified pt's son.
[2019-04-29] MEDS ORDERED: VANCOMYCIN 1 GM in IV D5W 250ml IV ONE (19:00)
--- NOTE | 2019-04-29 19:05 | NUR ---
Received order to give Vancomycin 1 gm IV loading dose then Vancomycin 500 mg IV after each dialysis q Monday, , Monday. Started peripheral IV line on pt's right wrist with good blood return. Administered Vancomycin 1 gm.
[2019-04-29] MEDS: INSULIN GLARGINE, 100 UNIT/ML CARTRIDGE SQ SCH (21:19)
[2019-04-29] MEDS: LATANOPROST EYE DROP 0.005% 2.5 ML BOTTLE EACHEYE SCH (21:19)
[2019-04-29] MEDS: ATORVASTATIN 10 MG TABLET GT SCH (21:19)
[2019-04-29] MEDS: TAMSULOSIN 0.4 MG CAP.SR.24H GT SCH (21:19)
[2019-04-30] MEDS: IPRATROPIUM NEB FS 0.5 MG/2.5 ML AMPUL.NEB IH SCH ×4 (01:52→19:57)
[2019-04-30 03:39] VITALS: BP 112/56
[2019-04-30 05:39] VITALS: BP 116/64
[2019-04-30] MEDS: BLOOD SUGAR DIAGNOSTIC 1 EACH STRIP IN SCH ×4 (05:41→23:47)
[2019-04-30] MEDS: OMEPRAZOLE 20 MG CAPSULE.DR GT SCH (05:41)
[2019-04-30] MEDS: REGLAN GT SCH ×4 (05:41→23:47)
[2019-04-30] MEDS: LACOSAMIDE ORAL SOLN 50 MG/5 ML UDC GT SCH ×2 (05:41→17:18)
[2019-04-30] MEDS: PROSTAT (PYXIS) 30 ML UDC GT SCH ×3 (05:41→21:22)
[2019-04-30] MEDS: SIMETHICONE SUSP 40 MG/0.6 ML BOTTLE GT SCH ×4 (05:41→23:47)
[2019-04-30] MEDS: INSULIN REGULAR, HUMAN 100 UNIT/ML 10 ML VIAL SQ SCH ×4 (05:42→23:48)
[2019-04-30] MEDS: ASCORBIC ACID 500 MG TABLET GT SCH (09:00)
[2019-04-30] MEDS: ACIDOPHILUS/BULGARICUS 1 EACH TAB.CHEW GT SCH (09:00)
[2019-04-30] MEDS: VITAMINS A AND D 56.7 GM TUBE TP SCH ×2 (09:00→21:24)
[2019-04-30] MEDS: HYDROGEN PEROXIDE 480 ML BOTTLE TP SCH ×2 (09:00→21:23)
[2019-04-30] MEDS: LINAGLIPTIN 5 MG TABLET GT SCH (09:00)
[2019-04-30] MEDS: DORZOLAMIDE OPTH 2% 10 ML BOTTLE EACHEYE SCH ×3 (09:00→17:18)
[2019-04-30] MEDS: Z GUARD REMEDY 4 OZ OINT TP SCH ×2 (09:00→21:24)
[2019-04-30] MEDS: METOPROLOL TARTRATE 25 MG TABLET PO SCH ×2 (09:00→21:23)
[2019-04-30] MEDS: POTASSIUM CHLORIDE 20MEQ TAB GT SCH (09:00)
[2019-04-30] MEDS: FINASTERIDE (5 MG) 5 MG TABLET GT SCH (09:00)
--- NOTE | 2019-04-30 10:40 | NUR ---
RESIDENT RETURNED FROM RENAL DIALYSIS CENTER VIA GURNEY, WAS CONNECTED TO COOL AEROSOL AT ARRIVAL, SUCTIONED VIA TRACHEOSTOMY WITH MINIMAL SECRETIONS, PRE-DIALYSIS WT 77.4KG, B/P 176/85, PULSE 89, RESP RATE 18, POST DIALYSIS WT- 76.75 KG, B/P 161/98, PULSE 108, RESP RATE 18, DIALYSIS LOCATION LEFT CHEST, SITE NO BLEEDING, INTACT, AND DRESSING DRY, VITAL SIGNS AT ARRIVAL B/P 108/87, TEMP 99.8, PULSE 100, RESP RATE 18, NO FACIAL GRIMACING NOTED.
[2019-04-30] MEDS: CHLORHEXIDINE GLUCONATE 15 ML UDC MM SCH ×2 (11:00→21:22)
[2019-04-30] MEDS: BETADINE TP SCH ×4 (11:00→21:24)
[2019-04-30] MEDS: MINERAL OIL/PETROL OINT 396 GM JAR TP SCH ×2 (11:00→21:23)
[2019-04-30] MEDS: CADEXOMER IODINE 40 GM TUBE TP SCH (11:00)
[2019-04-30] MEDS: HYDROGEL DRESSING 90 GM TUBE TP SCH ×2 (11:00→21:23)
[2019-04-30] MEDS: NEOMY SULF/BACITRAC ZN/POLY 15 GM TUBE TP SCH ×4 (11:00→21:23)
[2019-04-30 11:16] VITALS: BP 108/87
--- NOTE | 2019-04-30 11:34 | NUR ---
Seen and examined by Dr. Garduno, reviewed blood sugar for the past couple of days, resid
--- NOTE | 2019-04-30 11:35 | NUR ---
Seen and examined by Dr. Garduno, reviewed blood sugar for the past couple of days, resident's BS remain above 200 despite current dose of [address] Garduno increased Lantus to 28 units. Patient also currently on IV Vancomycin for MRSA of the wound. Asked if they is something else that can be done with his wounds, Dr. Garduno said to have ID see the patient. Informed Dr. Garduno that ID has been following the patient, however will inform ID.
[2019-04-30 13:00] VITALS: BP 108/87
--- NOTE | 2019-04-30 14:23 | NUR ---
CHANI called and spoke to the patients son, Dr. Ruizy [phone] to remind him of the monthly Family Support Group happening 05/01/19. Per Dr. Johns he will be in attendance.
[2019-04-30] MEDS: VANCOMYCIN POST DIALYSIS 500MG IV PRN ×2 (14:29)
--- NOTE | 2019-04-30 16:51 | NUR ---
Seen by ANODE BUILDER Dory Lozano, inquiring about the treatment of his generalized blisters. At this time, patient is receiving local treatment for his blisters and wounds. Informed ANODE BUILDER that attending physician would like ID to be notified about patient's skin condition. According to BRANDO Whatley, patient should be seen again by brush machine setter, as for ID, they will treat his infection but underlying cause should be treated. Left a message to SSD to follow-up a derm consult. Dr. Padilla is also seeing patient for local treatment. Endorsed.
[2019-04-30 17:00] VITALS: BP 147/87
--- NOTE | 2019-04-30 18:30 | NUR ---
Seen and examined by Nilam Pineda, POTATO INSPECTOR made aware that Dr. Garduno increased Lantus, however BS taken at this time 317, new order to increase Lantus to 30 units Q HS. Left a message to Dr. Johns, son regarding new order.
[2019-04-30] MEDS: ATORVASTATIN 10 MG TABLET GT SCH (21:24)
[2019-04-30] MEDS: INSULIN GLARGINE, 100 UNIT/ML CARTRIDGE SQ SCH (21:24)
[2019-04-30] MEDS: TAMSULOSIN 0.4 MG CAP.SR.24H GT SCH (21:24)
[2019-04-30] MEDS: LATANOPROST EYE DROP 0.005% 2.5 ML BOTTLE EACHEYE SCH (21:24)
[2019-04-30 21:26] VITALS: BP 110/59
[2019-05-01] VITALS (8 sets, daily range): BP systolic 108–138; BP diastolic 58–76
[2019-05-01] MEDS: IPRATROPIUM NEB FS 0.5 MG/2.5 ML AMPUL.NEB IH SCH ×4 (01:04→19:39)
[2019-05-01] MEDS: SIMETHICONE SUSP 40 MG/0.6 ML BOTTLE GT SCH ×3 (05:56→17:21)
[2019-05-01] MEDS: BLOOD SUGAR DIAGNOSTIC 1 EACH STRIP IN SCH ×3 (05:56→17:18)
[2019-05-01] MEDS: REGLAN GT SCH ×3 (05:56→17:21)
[2019-05-01] MEDS: OMEPRAZOLE 20 MG CAPSULE.DR GT SCH (05:56)
[2019-05-01] MEDS: LACOSAMIDE ORAL SOLN 50 MG/5 ML UDC GT SCH ×2 (05:56→17:21)
[2019-05-01] MEDS: PROSTAT (PYXIS) 30 ML UDC GT SCH ×3 (05:56→21:25)
[2019-05-01] MEDS: INSULIN REGULAR, HUMAN 100 UNIT/ML 10 ML VIAL SQ SCH ×3 (05:57→17:24)
[2019-05-01] MEDS: HYDROGEN PEROXIDE 480 ML BOTTLE TP SCH ×2 (08:22→20:17)
[2019-05-01] MEDS: LINAGLIPTIN 5 MG TABLET GT SCH (08:44)
[2019-05-01] MEDS: FINASTERIDE (5 MG) 5 MG TABLET GT SCH (08:44)
[2019-05-01] MEDS: ACIDOPHILUS/BULGARICUS 1 EACH TAB.CHEW GT SCH (08:44)
[2019-05-01] MEDS: POTASSIUM CHLORIDE 20MEQ TAB GT SCH (08:44)
[2019-05-01] MEDS: DORZOLAMIDE OPTH 2% 10 ML BOTTLE EACHEYE SCH ×3 (08:44→17:21)
[2019-05-01] MEDS: CHLORHEXIDINE GLUCONATE 15 ML UDC MM SCH ×2 (08:45→21:25)
[2019-05-01] MEDS: ACETAMINOPHEN 650 MG/20.3 ML UDC GT PRN ×2 (08:45→22:00)
[2019-05-01] MEDS: ASCORBIC ACID 500 MG TABLET GT SCH (08:45)
[2019-05-01] MEDS: METOPROLOL TARTRATE 25 MG TABLET PO SCH ×2 (08:45→21:25)
[2019-05-01] MEDS: VITAMINS A AND D 56.7 GM TUBE TP SCH ×2 (09:00→21:52)
[2019-05-01] MEDS: HYDROGEL DRESSING 90 GM TUBE TP SCH ×2 (09:00→21:52)
[2019-05-01] MEDS: MINERAL OIL/PETROL OINT 396 GM JAR TP SCH ×2 (09:00→21:26)
[2019-05-01] MEDS: CADEXOMER IODINE 40 GM TUBE TP SCH (09:00)
[2019-05-01] MEDS: Z GUARD REMEDY 4 OZ OINT TP SCH ×2 (09:00→21:52)
[2019-05-01] MEDS: BETADINE TP SCH ×4 (09:00→21:52)
[2019-05-01] MEDS: NEOMY SULF/BACITRAC ZN/POLY 15 GM TUBE TP SCH ×4 (09:00→21:52)
--- NOTE | 2019-05-01 16:32 | NUR ---
CHANI contacted [facility] [phone] and spoke with Ursula to schedule a follow-up appointment with butane compressor operator who saw the pt. on 04/04/19. Per Ursula, Dr. Jimenes to give HCANI a call back tomorrow to schedule derma. appointment.
[2019-05-01] MEDS: NEPRO 1,000 ML BOTTLE GT PRN (17:59)
[2019-05-01] MEDS: LATANOPROST EYE DROP 0.005% 2.5 ML BOTTLE EACHEYE SCH (21:26)
[2019-05-01] MEDS: ATORVASTATIN 10 MG TABLET GT SCH (21:26)
[2019-05-01] MEDS: TAMSULOSIN 0.4 MG CAP.SR.24H GT SCH (21:26)
[2019-05-01] MEDS: INSULIN GLARGINE, 100 UNIT/ML CARTRIDGE SQ SCH (21:53)
[2019-05-02] MEDS: REGLAN GT SCH ×5 (00:53→23:56)
[2019-05-02] MEDS: SIMETHICONE SUSP 40 MG/0.6 ML BOTTLE GT SCH ×5 (00:53→23:56)
[2019-05-02] MEDS: BLOOD SUGAR DIAGNOSTIC 1 EACH STRIP IN SCH ×5 (00:57→23:56)
[2019-05-02] MEDS: INSULIN REGULAR, HUMAN 100 UNIT/ML 10 ML VIAL SQ SCH ×5 (00:59→23:59)
[2019-05-02 01:00] VITALS: BP 110/48
[2019-05-02] MEDS: IPRATROPIUM NEB FS 0.5 MG/2.5 ML AMPUL.NEB IH SCH ×4 (02:07→19:47)
[2019-05-02 05:00] VITALS: BP 116/61
[2019-05-02] MEDS: OMEPRAZOLE 20 MG CAPSULE.DR GT SCH (05:22)
[2019-05-02] MEDS: LACOSAMIDE ORAL SOLN 50 MG/5 ML UDC GT SCH ×2 (05:22→18:23)
[2019-05-02] MEDS: PROSTAT (PYXIS) 30 ML UDC GT SCH ×3 (05:22→21:31)
--- NOTE | 2019-05-02 06:25 | NUR ---
Picked up by [facility] ambulance for dialysis at [facility].Vital signs stable.
[2019-05-02 11:00] VITALS: BP 110/67
[2019-05-02] MEDS: HYDROGEL DRESSING 90 GM TUBE TP SCH ×2 (11:15→22:00)
[2019-05-02] MEDS: CHLORHEXIDINE GLUCONATE 15 ML UDC MM SCH ×2 (11:15→21:31)
[2019-05-02] MEDS: METOPROLOL TARTRATE 25 MG TABLET PO SCH ×2 (11:15→21:32)
[2019-05-02] MEDS: FINASTERIDE (5 MG) 5 MG TABLET GT SCH (11:15)
[2019-05-02] MEDS: ACIDOPHILUS/BULGARICUS 1 EACH TAB.CHEW GT SCH (11:15)
[2019-05-02] MEDS: POTASSIUM CHLORIDE 20MEQ TAB GT SCH (11:15)
[2019-05-02] MEDS: LINAGLIPTIN 5 MG TABLET GT SCH (11:15)
[2019-05-02] MEDS: DORZOLAMIDE OPTH 2% 10 ML BOTTLE EACHEYE SCH ×3 (11:15→17:00)
[2019-05-02] MEDS: ASCORBIC ACID 500 MG TABLET GT SCH (11:15)
[2019-05-02] MEDS: VITAMINS A AND D 56.7 GM TUBE TP SCH ×2 (11:30→22:00)
[2019-05-02] MEDS: MINERAL OIL/PETROL OINT 396 GM JAR TP SCH ×2 (11:30→21:32)
[2019-05-02] MEDS: BETADINE TP SCH ×4 (11:30→22:00)
[2019-05-02] MEDS: CADEXOMER IODINE 40 GM TUBE TP SCH (11:30)
[2019-05-02] MEDS: Z GUARD REMEDY 4 OZ OINT TP SCH ×2 (11:30→22:00)
[2019-05-02 13:00] VITALS: BP 92/53
[2019-05-02] MEDS: HYDROGEN PEROXIDE 480 ML BOTTLE TP SCH ×2 (13:00→21:00)
--- NOTE | 2019-05-02 13:00 | NUR ---
Seen and examined by BRANDO Lozano, no new order given.
--- NOTE | 2019-05-02 13:28 | NUR ---
CHANI followed up with [facility] [[address] [facility] [place] [address]; [phone]] and spoke to Snow to set up follow up appointment with Rommel, as requested by PRECISION PRINTING WORKER, Dory Lozano. Pharmaceutical Development Technician, , completed last patent paralegal consult on 04/04/19. Per Snow, she cannot set up an appointment for to come to [facility] and see the resident. However, Per Snow, she will relay the patient information to Dr. Jimenes's medical writer who can set up an appointment as she works closely with . CHANI stressed the importance of patent paralegal consult for the benefit of the patient's health and informed Snow that rommel apt. has been requested by PRECISION PRINTING WORKER. Snow expressed understanding. Per Snow, CHANI to be contacted by Dr. Jimenes or their medical writer CARY.
--- NOTE | 2019-05-02 14:00 | NUR ---
Random Vancomycin result relayed to [facility] Pharmacist Bipin with new recommendation to continue Vancomycin 500 mg IV 3x/week after dialysis. Random Vancomycin level on 05/07/19 @ 0500.
[2019-05-02] MEDS: VANCOMYCIN POST DIALYSIS 500MG IV PRN ×4 (15:00→15:23)
--- NOTE | 2019-05-02 16:29 | NUR ---
SW completed social service assistant portion of annual MDS. The patient's responsible alliance party is his son, who is very supportive and visits almost daily. The patient is DNR on ventilator support on trach and on isolation.The patient had his annual dental cleaning with on 11/26/18. The aptient has his annual optometry apt. with Dr. Reddy on 04/19/19.
[2019-05-02 17:00] VITALS: BP 118/69
[2019-05-02] MEDS: NEPRO 1,000 ML BOTTLE GT PRN (18:22)
[2019-05-02 21:00] VITALS: BP 124/81
[2019-05-02] MEDS: ACETAMINOPHEN 650 MG/20.3 ML UDC GT SCH (21:31)
[2019-05-02] MEDS: TAMSULOSIN 0.4 MG CAP.SR.24H GT SCH (21:32)
[2019-05-02] MEDS: LATANOPROST EYE DROP 0.005% 2.5 ML BOTTLE EACHEYE SCH (21:32)
[2019-05-02] MEDS: ATORVASTATIN 10 MG TABLET GT SCH (21:33)
[2019-05-02] MEDS: INSULIN GLARGINE, 100 UNIT/ML CARTRIDGE SQ SCH (21:38)
[2019-05-03] VITALS (9 sets, daily range): BP systolic 100–124; BP diastolic 42–81
[2019-05-03] MEDS: IPRATROPIUM NEB FS 0.5 MG/2.5 ML AMPUL.NEB IH SCH ×4 (01:02→19:27)
[2019-05-03] MEDS: LACOSAMIDE ORAL SOLN 50 MG/5 ML UDC GT SCH ×2 (05:58→17:50)
[2019-05-03] MEDS: PROSTAT (PYXIS) 30 ML UDC GT SCH ×3 (05:58→21:26)
[2019-05-03] MEDS: REGLAN GT SCH ×4 (05:58→23:48)
[2019-05-03] MEDS: SIMETHICONE SUSP 40 MG/0.6 ML BOTTLE GT SCH ×4 (05:58→23:48)
[2019-05-03] MEDS: OMEPRAZOLE 20 MG CAPSULE.DR GT SCH (05:58)
[2019-05-03] MEDS: BLOOD SUGAR DIAGNOSTIC 1 EACH STRIP IN SCH ×4 (06:05→23:48)
[2019-05-03] MEDS: INSULIN REGULAR, HUMAN 100 UNIT/ML 10 ML VIAL SQ SCH ×4 (06:06→23:50)
[2019-05-03] MEDS: FINASTERIDE (5 MG) 5 MG TABLET GT SCH (09:39)
[2019-05-03] MEDS: ACIDOPHILUS/BULGARICUS 1 EACH TAB.CHEW GT SCH (09:39)
[2019-05-03] MEDS: CHLORHEXIDINE GLUCONATE 15 ML UDC MM SCH ×2 (09:39→21:26)
[2019-05-03] MEDS: LINAGLIPTIN 5 MG TABLET GT SCH (09:39)
[2019-05-03] MEDS: POTASSIUM CHLORIDE 20MEQ TAB GT SCH (09:39)
[2019-05-03] MEDS: DORZOLAMIDE OPTH 2% 10 ML BOTTLE EACHEYE SCH ×3 (09:39→17:50)
[2019-05-03] MEDS: ACETAMINOPHEN 650 MG/20.3 ML UDC GT SCH ×2 (09:39→21:47)
[2019-05-03] MEDS: ASCORBIC ACID 500 MG TABLET GT SCH (09:39)
[2019-05-03] MEDS: METOPROLOL TARTRATE 25 MG TABLET PO SCH ×2 (09:40→21:27)
[2019-05-03] MEDS: HYDROGEN PEROXIDE 480 ML BOTTLE TP SCH ×2 (09:45→21:07)
[2019-05-03] MEDS: NEOMY SULF/BACITRAC ZN/POLY 15 GM TUBE TP SCH ×6 (10:10→22:00)
[2019-05-03] MEDS: MINERAL OIL/PETROL OINT 396 GM JAR TP SCH ×2 (10:10→21:27)
[2019-05-03] MEDS: VITAMINS A AND D 56.7 GM TUBE TP SCH ×2 (10:10→22:00)
[2019-05-03] MEDS: Z GUARD REMEDY 4 OZ OINT TP SCH ×2 (10:10→22:00)
[2019-05-03] MEDS: HYDROGEL DRESSING 90 GM TUBE TP SCH ×2 (10:10→22:00)
[2019-05-03] MEDS: BETADINE TP SCH ×4 (10:10→22:00)
[2019-05-03] MEDS: CADEXOMER IODINE 40 GM TUBE TP SCH (10:10)
--- NOTE | 2019-05-03 14:20 | NUR ---
Spoke with Dr. Jimenes, sr. merchandise planner and answered her questions pertaining to patient's clinical condition. She said that she would like speak with Dr. Garduno who happen to be making rounds and the two physician discussed the plan of action. Dr. Jimenes will see the patient after her work today. Dr. Garduno ordered to send serum for antibody Bullous Pemphigoid, order carried out. He also reviewed BS and increased current Lantus from 30 units to [address] Johns notified of new order.
--- NOTE | 2019-05-03 14:21 | NUR ---
CHANI had a voicemail from Planting Material Carrier, Dr. Jimenes asking SW to call [facility] [phone]. CHANI called and spoke with to schedule derma follow-up consult for patient. CHANI contacted [facility] [phone] and spoke to Snow who requested patients face sheet be faxed. Per Dr. Yudy Adamson to call CHANI before visit is made. 11 am: CHANI faxed [facility] facesheet to [phone] and received completed fax receipt. CHANI received a call from Dr. Jimenes asking for further details of patients condition. CHANI informed sales support coordinator to call charge Nurse, Forrest as its not within the scope of practice of CHANI and Forrest may better explain. Planting Material Carrier expressed understanding. Per Dr. Jimenes, she would call Forrest after lunchtime. CHANI was agreeable to plan.
--- NOTE | 2019-05-03 18:50 | NUR ---
Dr. Jimenes, fitness consultant came to assessed resident's skin condition. She discussed plan of care with Dr. Garduno. MD is recommending punch biopsy to a specific area of the blister in the left upper shoulder, labelled A and B. According to Dr. Jimenes, Dr. Garduno will notify the surgeon who will obtain biopsy. Dr. Johns, son notified of above orders. Seen and examined by Nilam Pineda made aware of dermatology recommendations NNO given.
[2019-05-03] MEDS: TAMSULOSIN 0.4 MG CAP.SR.24H GT SCH (21:27)
[2019-05-03] MEDS: ATORVASTATIN 10 MG TABLET GT SCH (21:27)
[2019-05-03] MEDS: LATANOPROST EYE DROP 0.005% 2.5 ML BOTTLE EACHEYE SCH (21:27)
[2019-05-03] MEDS: INSULIN GLARGINE, 100 UNIT/ML CARTRIDGE SQ SCH (22:20)
[2019-05-04] VITALS (7 sets, daily range): BP systolic 102–125; BP diastolic 58–94
[2019-05-04] MEDS: IPRATROPIUM NEB FS 0.5 MG/2.5 ML AMPUL.NEB IH SCH ×4 (01:26→19:56)
--- NOTE | 2019-05-04 04:54 | NUR ---
RT NOTES TRACH TUBE IN PLACE, PATENT, AND SECURE WITH TRACH TIE. ALARMS ON AND AUDIBLE. VENT PLUGGED INTO RED OUTLET. AMBU BAG AND BACK UP TRACH BY THE BEDSIDE. PLACED ON VENT AT MIDNIGHT PER MD ORDERS. PLACED BACK ON COOL AEROSOL AT 0500. TOLERATE WELL. PATIENT STABLE WITHOUT ANY SIGNS OF DISTRESS AT THIS TIME. Addendum: 05/04/19 at 0457 by JHON PARISH RT Amended: Links added.
[2019-05-04] MEDS: LACOSAMIDE ORAL SOLN 50 MG/5 ML UDC GT SCH ×2 (05:28→17:52)
[2019-05-04] MEDS: BLOOD SUGAR DIAGNOSTIC 1 EACH STRIP IN SCH ×4 (05:28→23:29)
[2019-05-04] MEDS: REGLAN GT SCH ×4 (05:28→23:29)
[2019-05-04] MEDS: OMEPRAZOLE 20 MG CAPSULE.DR GT SCH (05:28)
[2019-05-04] MEDS: SIMETHICONE SUSP 40 MG/0.6 ML BOTTLE GT SCH ×4 (05:28→23:29)
[2019-05-04] MEDS: PROSTAT (PYXIS) 30 ML UDC GT SCH ×3 (05:28→21:29)
[2019-05-04] MEDS: INSULIN REGULAR, HUMAN 100 UNIT/ML 10 ML VIAL SQ SCH ×4 (05:29→23:30)
--- NOTE | 2019-05-04 07:02 | NUR ---
Picked up by [facility] at 0620 for dialysis. Vital sign stable. Blood drawn not done, chemical laboratory assistant came at 0650.
[2019-05-04] MEDS: HYDROGEN PEROXIDE 480 ML BOTTLE TP SCH ×2 (11:00→19:56)
[2019-05-04] MEDS: CHLORHEXIDINE GLUCONATE 15 ML UDC MM SCH ×2 (11:15→21:30)
[2019-05-04] MEDS: ACETAMINOPHEN 650 MG/20.3 ML UDC GT SCH ×2 (11:15→21:29)
[2019-05-04] MEDS: ACIDOPHILUS/BULGARICUS 1 EACH TAB.CHEW GT SCH (11:15)
[2019-05-04] MEDS: FINASTERIDE (5 MG) 5 MG TABLET GT SCH (11:15)
[2019-05-04] MEDS: ASCORBIC ACID 500 MG TABLET GT SCH (11:15)
[2019-05-04] MEDS: DORZOLAMIDE OPTH 2% 10 ML BOTTLE EACHEYE SCH ×3 (11:15→17:52)
[2019-05-04] MEDS: LINAGLIPTIN 5 MG TABLET GT SCH (11:15)
[2019-05-04] MEDS: METOPROLOL TARTRATE 25 MG TABLET PO SCH ×2 (11:15→21:30)
[2019-05-04] MEDS: POTASSIUM CHLORIDE 20MEQ TAB GT SCH (11:15)
[2019-05-04] MEDS: BETADINE TP SCH ×4 (11:45→22:05)
[2019-05-04] MEDS: HYDROGEL DRESSING 90 GM TUBE TP SCH ×2 (11:45→22:05)
[2019-05-04] MEDS: NEOMY SULF/BACITRAC ZN/POLY 15 GM TUBE TP SCH ×6 (11:45→22:05)
[2019-05-04] MEDS: VITAMINS A AND D 56.7 GM TUBE TP SCH ×2 (11:45→22:05)
[2019-05-04] MEDS: CADEXOMER IODINE 40 GM TUBE TP SCH (11:45)
[2019-05-04] MEDS: MINERAL OIL/PETROL OINT 396 GM JAR TP SCH ×2 (11:45→22:05)
[2019-05-04] MEDS: Z GUARD REMEDY 4 OZ OINT TP SCH ×2 (11:45→22:05)
[2019-05-04 13:16] LABS: CALCIUM, SERUM 8.5 mg/dL (8.5-10.1); CARBON DIOXIDE 26 mmol/L (21-32); CHLORIDE 94 mmol/L (98-107); GLUCOSE 141 mg/dL (74-106); POTASSIUM 3.5 mmol/L (3.5-5.1); SODIUM SERUM 131 mmol/L (136-145); UREA NITROGEN, BLOOD 34 mg/dL (7-18)
[2019-05-04] MEDS: VANCOMYCIN POST DIALYSIS 500MG IV PRN ×2 (13:47)
[2019-05-04 14:01] LABS: BASOPHILS % (AUTO) 0.2 % (0.0-2.0); EOSINOPHILS % (AUTO) 4.5 % (0.0-6.0); HEMATOCRIT 38 % (39-51); LYMPHOCYTES % (AUTO) 9.5 % (20.0-44.0); MEAN CORPUSCULAR HGB CONC 32 g/dl (31.0-36.0); MEAN CORPUSCULAR VOLUME 100 fL (80-96); MONOCYTES # (AUTO) 0.8 /CMM (0.1-1.30); MONOCYTES % (AUTO) 8.2 % (2.0-12.0); NEUTROPHILS # (AUTO) 7.9 /CMM (1.8-8.9); NEUTROPHILS % (AUTO) 77.6 % (43.0-81.0); PLATELET COUNT (AUTO) 232 /CMM (150-450); RED BLOOD CELL COUNT(AUTO) 3.78 MIL/uL (4.5-6.0); WHITE BLOOD COUNT (AUTO) 10.2 K/uL (4.3-11.0)
[2019-05-04 16:40] LABS: BAND % (MANUAL) 4 % (0.0-5.0); EOSINOPHILS % (MANUAL) 2 % (0-4); LYMPHOCYTES % (MANUAL) 14 % (16-48); MONOCYTES % (MANUAL) 10 % (0-11.0); NEUTROPHILS % (MANUAL) 70 (42-76)
[2019-05-04] MEDS: TAMSULOSIN 0.4 MG CAP.SR.24H GT SCH (21:30)
[2019-05-04] MEDS: LATANOPROST EYE DROP 0.005% 2.5 ML BOTTLE EACHEYE SCH (21:30)
[2019-05-04] MEDS: ATORVASTATIN 10 MG TABLET GT SCH (21:30)
[2019-05-04] MEDS: INSULIN GLARGINE, 100 UNIT/ML CARTRIDGE SQ SCH (21:54)
[2019-05-04] MEDS: PETROLATUM,WHITE PACKET 5 GM PACKET TP SCH (22:05)
[2019-05-05] VITALS (8 sets, daily range): BP systolic 98–158; BP diastolic 53–76
[2019-05-05] MEDS: IPRATROPIUM NEB FS 0.5 MG/2.5 ML AMPUL.NEB IH SCH ×4 (02:06→19:47)
[2019-05-05] MEDS: OMEPRAZOLE 20 MG CAPSULE.DR GT SCH (05:53)
[2019-05-05] MEDS: PROSTAT (PYXIS) 30 ML UDC GT SCH ×3 (05:53→21:11)
[2019-05-05] MEDS: SIMETHICONE SUSP 40 MG/0.6 ML BOTTLE GT SCH ×4 (05:53→23:38)
[2019-05-05] MEDS: LACOSAMIDE ORAL SOLN 50 MG/5 ML UDC GT SCH ×2 (05:53→17:16)
[2019-05-05] MEDS: REGLAN GT SCH ×4 (05:53→23:38)
[2019-05-05] MEDS: BLOOD SUGAR DIAGNOSTIC 1 EACH STRIP IN SCH ×4 (06:17→23:38)
[2019-05-05] MEDS: INSULIN REGULAR, HUMAN 100 UNIT/ML 10 ML VIAL SQ SCH ×4 (06:18→23:39)
[2019-05-05] MEDS: HYDROGEN PEROXIDE 480 ML BOTTLE TP SCH ×2 (09:00→21:12)
[2019-05-05] MEDS: PETROLATUM,WHITE PACKET 5 GM PACKET TP SCH ×2 (09:00→21:12)
[2019-05-05] MEDS: METOPROLOL TARTRATE 25 MG TABLET PO SCH ×2 (09:00→21:00)
[2019-05-05] MEDS: CADEXOMER IODINE 40 GM TUBE TP SCH (09:00)
[2019-05-05] MEDS: BETADINE TP SCH ×4 (09:00→21:12)
[2019-05-05] MEDS: FINASTERIDE (5 MG) 5 MG TABLET GT SCH (09:25)
[2019-05-05] MEDS: LINAGLIPTIN 5 MG TABLET GT SCH (09:25)
[2019-05-05] MEDS: DORZOLAMIDE OPTH 2% 10 ML BOTTLE EACHEYE SCH ×3 (09:25→17:16)
[2019-05-05] MEDS: ACIDOPHILUS/BULGARICUS 1 EACH TAB.CHEW GT SCH (09:25)
[2019-05-05] MEDS: ACETAMINOPHEN 650 MG/20.3 ML UDC GT SCH ×2 (09:25→21:11)
[2019-05-05] MEDS: ASCORBIC ACID 500 MG TABLET GT SCH (09:25)
[2019-05-05] MEDS: POTASSIUM CHLORIDE 20MEQ TAB GT SCH (09:25)
[2019-05-05] MEDS: CHLORHEXIDINE GLUCONATE 15 ML UDC MM SCH ×2 (09:26→21:11)
[2019-05-05] MEDS: HYDROGEL DRESSING 90 GM TUBE TP SCH ×2 (09:27→21:12)
[2019-05-05] MEDS: MINERAL OIL/PETROL OINT 396 GM JAR TP SCH ×2 (09:27→21:12)
[2019-05-05] MEDS: NEOMY SULF/BACITRAC ZN/POLY 15 GM TUBE TP SCH ×6 (09:29→21:12)
[2019-05-05] MEDS: Z GUARD REMEDY 4 OZ OINT TP SCH ×2 (09:30→21:12)
[2019-05-05] MEDS: VITAMINS A AND D 56.7 GM TUBE TP SCH ×2 (09:31→21:12)
[2019-05-05] MEDS: NEPRO 1,000 ML BOTTLE GT PRN (09:48)
[2019-05-05] MEDS: LATANOPROST EYE DROP 0.005% 2.5 ML BOTTLE EACHEYE SCH (21:12)
[2019-05-05] MEDS: ATORVASTATIN 10 MG TABLET GT SCH (21:18)
[2019-05-05] MEDS: TAMSULOSIN 0.4 MG CAP.SR.24H GT SCH (21:18)
[2019-05-05] MEDS: INSULIN GLARGINE, 100 UNIT/ML CARTRIDGE SQ SCH (21:19)
[2019-05-06] VITALS (7 sets, daily range): BP systolic 100–145; BP diastolic 46–70
[2019-05-06] MEDS: IPRATROPIUM NEB FS 0.5 MG/2.5 ML AMPUL.NEB IH SCH ×4 (01:40→19:27)
[2019-05-06] MEDS: NEPRO 1,000 ML BOTTLE GT PRN (04:46)
[2019-05-06] MEDS: PROSTAT (PYXIS) 30 ML UDC GT SCH ×3 (05:36→21:25)
[2019-05-06] MEDS: SIMETHICONE SUSP 40 MG/0.6 ML BOTTLE GT SCH ×4 (05:36→23:52)
[2019-05-06] MEDS: BLOOD SUGAR DIAGNOSTIC 1 EACH STRIP IN SCH ×4 (05:36→23:52)
[2019-05-06] MEDS: LACOSAMIDE ORAL SOLN 50 MG/5 ML UDC GT SCH ×2 (05:36→18:31)
[2019-05-06] MEDS: OMEPRAZOLE 20 MG CAPSULE.DR GT SCH (05:36)
[2019-05-06] MEDS: REGLAN GT SCH ×4 (05:36→23:52)
[2019-05-06] MEDS: INSULIN REGULAR, HUMAN 100 UNIT/ML 10 ML VIAL SQ SCH ×4 (05:42→23:53)
[2019-05-06] MEDS: HYDROGEN PEROXIDE 480 ML BOTTLE TP SCH ×2 (07:44→21:26)
[2019-05-06] MEDS: DORZOLAMIDE OPTH 2% 10 ML BOTTLE EACHEYE SCH ×3 (08:39→17:00)
[2019-05-06] MEDS: ACIDOPHILUS/BULGARICUS 1 EACH TAB.CHEW GT SCH (08:39)
[2019-05-06] MEDS: POTASSIUM CHLORIDE 20MEQ TAB GT SCH (08:39)
[2019-05-06] MEDS: ASCORBIC ACID 500 MG TABLET GT SCH (08:41)
[2019-05-06] MEDS: CHLORHEXIDINE GLUCONATE 15 ML UDC MM SCH ×2 (08:41→21:25)
[2019-05-06] MEDS: ACETAMINOPHEN 650 MG/20.3 ML UDC GT SCH ×2 (08:41→21:25)
[2019-05-06] MEDS: LINAGLIPTIN 5 MG TABLET GT SCH (08:41)
[2019-05-06] MEDS: FINASTERIDE (5 MG) 5 MG TABLET GT SCH (08:41)
[2019-05-06] MEDS: METOPROLOL TARTRATE 25 MG TABLET PO SCH (08:42)
[2019-05-06] MEDS: Z GUARD REMEDY 4 OZ OINT TP SCH ×2 (09:30→21:26)
[2019-05-06] MEDS: PETROLATUM,WHITE PACKET 5 GM PACKET TP SCH ×2 (09:30→21:27)
[2019-05-06] MEDS: VITAMINS A AND D 56.7 GM TUBE TP SCH ×2 (09:30→21:27)
[2019-05-06] MEDS: BETADINE TP SCH ×4 (09:30→21:26)
[2019-05-06] MEDS: CADEXOMER IODINE 40 GM TUBE TP SCH (09:30)
[2019-05-06] MEDS: NEOMY SULF/BACITRAC ZN/POLY 15 GM TUBE TP SCH ×6 (09:30→21:26)
[2019-05-06] MEDS: MINERAL OIL/PETROL OINT 396 GM JAR TP SCH ×2 (09:30→21:26)
--- NOTE | 2019-05-06 10:04 | NUR ---
Informed Dr Garduno that satellite manager recommended to do biopsy on pt's blisters. Dr Garduno said to have Dr Randy Martell do the biopsy. Notified Dr Padilla.
--- NOTE | 2019-05-06 10:45 | NUR ---
Dr Randy Martell said he will do biopsy of skin lesions/blisters this afternoon. Pt's son aware.
[2019-05-06] MEDS ORDERED: ACETAMINOPHEN SUP SA PATIENTS 650 MG SUPP RC PRN (11:30)
[2019-05-06] MEDS ORDERED: ACETAMINOPHEN 650 MG SUPP.RECT RC PRN (11:30)
[2019-05-06] MEDS ORDERED: ACETAMINOPHEN 650 MG/20 ML UDC- SA PATIENTS-FEVER ONLY GT PRN (11:30)
[2019-05-06] MEDS ORDERED: LIDOCAINE 1%-EPI 1:100,000 50 ML VIAL IJ ONE (11:30)
[2019-05-06] MEDS ORDERED: ACETAMINOPHEN 650 MG/20 ML UDC- SA PATIENTS-PAIN ONLY GT PRN (11:30)
--- NOTE | 2019-05-06 16:01 | NUR ---
RT NOTES: RECEIVED PT ON 28% COOL AEROSOL. NO RESPIRATORY DISTRESS NOTED. TRACH CHECKED SECURE AND PATENT. SXD AND LAVAGED PT Q ROUND AND NEEDED. TXS GIVEN ORDERED WITH NO ADVERSE REACTIONS NOTED. TRACH CARE DONE. SPARE TRACH AND AMBU BAG @ BEDSIDE. NOC VENT @ BEDSIDE PLUGGED INTO RED OUTLET.
--- NOTE | 2019-05-06 17:01 | NUR ---
Punch biopsy done by Dr Randy Martell for sites A and B that were marked by bleach supervisor, sent to lab.
[2019-05-06] MEDS: METOPROLOL TARTRATE 25 MG TABLET GT SCH (21:25)
[2019-05-06] MEDS: HYDROGEL DRESSING 90 GM TUBE TP SCH (21:26)
[2019-05-06] MEDS: ATORVASTATIN 10 MG TABLET GT SCH (21:27)
[2019-05-06] MEDS: INSULIN GLARGINE, 100 UNIT/ML CARTRIDGE SQ SCH (21:27)
[2019-05-06] MEDS: LATANOPROST EYE DROP 0.005% 2.5 ML BOTTLE EACHEYE SCH (21:27)
[2019-05-06] MEDS: TAMSULOSIN 0.4 MG CAP.SR.24H GT SCH (21:27)
[2019-05-07] MEDS: IPRATROPIUM NEB FS 0.5 MG/2.5 ML AMPUL.NEB IH SCH ×4 (01:29→19:42)
[2019-05-07 03:34] VITALS: BP 116/58
[2019-05-07] MEDS: REGLAN GT SCH ×3 (05:57→17:53)
[2019-05-07] MEDS: OMEPRAZOLE 20 MG CAPSULE.DR GT SCH (05:57)
[2019-05-07] MEDS: PROSTAT (PYXIS) 30 ML UDC GT SCH ×3 (05:57→21:43)
[2019-05-07] MEDS: LACOSAMIDE ORAL SOLN 50 MG/5 ML UDC GT SCH ×2 (05:57→17:53)
[2019-05-07] MEDS: SIMETHICONE SUSP 40 MG/0.6 ML BOTTLE GT SCH ×3 (05:57→17:53)
[2019-05-07] MEDS: BLOOD SUGAR DIAGNOSTIC 1 EACH STRIP IN SCH ×3 (05:57→18:13)
[2019-05-07] MEDS: INSULIN REGULAR, HUMAN 100 UNIT/ML 10 ML VIAL SQ SCH ×3 (05:58→18:14)
[2019-05-07 06:23] VITALS: BP 125/66
[2019-05-07] MEDS: POTASSIUM CHLORIDE 20MEQ TAB GT SCH (09:00)
[2019-05-07] MEDS: FINASTERIDE (5 MG) 5 MG TABLET GT SCH (09:00)
[2019-05-07] MEDS: DORZOLAMIDE OPTH 2% 10 ML BOTTLE EACHEYE SCH ×3 (09:00→17:53)
[2019-05-07] MEDS: ASCORBIC ACID 500 MG TABLET GT SCH (09:00)
[2019-05-07] MEDS: LINAGLIPTIN 5 MG TABLET GT SCH (09:00)
[2019-05-07] MEDS: CHLORHEXIDINE GLUCONATE 15 ML UDC MM SCH ×2 (09:00→21:43)
[2019-05-07] MEDS: ACIDOPHILUS/BULGARICUS 1 EACH TAB.CHEW GT SCH (09:00)
[2019-05-07] MEDS: ACETAMINOPHEN 650 MG/20.3 ML UDC GT SCH ×2 (09:00→21:43)
[2019-05-07] MEDS: METOPROLOL TARTRATE 25 MG TABLET GT SCH ×2 (09:00→21:00)
[2019-05-07] MEDS: NEPRO 1,000 ML BOTTLE GT PRN (10:42)
[2019-05-07] MEDS: HYDROGEN PEROXIDE 480 ML BOTTLE TP SCH ×2 (10:45→20:20)
--- NOTE | 2019-05-07 12:20 | NUR ---
Seen by Dr Garduno. He reviewed pt's blood sugar levels and ordered to increase Lantus insulin from 32 to 34 units SC q HS. Informed Dr Garduno that biopsy was done yesterday. Pt's son aware of biopsy and new order to increase Lantus insulin.
[2019-05-07 13:00] VITALS: BP 103/60
[2019-05-07] MEDS: BETADINE TP SCH ×4 (13:00→21:44)
[2019-05-07] MEDS: NEOMY SULF/BACITRAC ZN/POLY 15 GM TUBE TP SCH ×6 (13:00→21:44)
[2019-05-07] MEDS: HYDROGEL DRESSING 90 GM TUBE TP SCH ×2 (13:00→21:44)
[2019-05-07] MEDS: CADEXOMER IODINE 40 GM TUBE TP SCH (13:00)
[2019-05-07] MEDS: Z GUARD REMEDY 4 OZ OINT TP SCH ×2 (13:00→21:44)
[2019-05-07] MEDS: MINERAL OIL/PETROL OINT 396 GM JAR TP SCH ×2 (13:00→21:43)
[2019-05-07] MEDS: PETROLATUM,WHITE PACKET 5 GM PACKET TP SCH ×2 (13:00→21:44)
[2019-05-07] MEDS: VITAMINS A AND D 56.7 GM TUBE TP SCH ×2 (13:00→21:44)
--- NOTE | 2019-05-07 18:27 | NUR ---
[facility] Leonidas. Random Vancomycin 13, drawn after hemodialysis. Night charge nurse endorsed that random Vancomycin was not drawn early this morning before pt left for hemodialysis. Melanie Lauren said to give Vancomycin dose tonight.
[2019-05-07 19:34] VITALS: BP 110/50
[2019-05-07 19:53] VITALS: BP 95/74
[2019-05-07 21:39] VITALS: BP 95/74
[2019-05-07] MEDS: POVIDONE-IODINE OINT 28.4 GM TUBE TP SCH ×2 (21:43→21:44)
[2019-05-07] MEDS: LATANOPROST EYE DROP 0.005% 2.5 ML BOTTLE EACHEYE SCH (21:44)
[2019-05-07] MEDS: TAMSULOSIN 0.4 MG CAP.SR.24H GT SCH (21:44)
[2019-05-07] MEDS: ATORVASTATIN 10 MG TABLET GT SCH (21:44)
[2019-05-07] MEDS: INSULIN GLARGINE, 100 UNIT/ML CARTRIDGE SQ SCH (21:45)
[2019-05-08] VITALS (7 sets, daily range): BP systolic 84–108; BP diastolic 54–72
[2019-05-08] MEDS: BLOOD SUGAR DIAGNOSTIC 1 EACH STRIP IN SCH ×5 (00:28→23:57)
[2019-05-08] MEDS: SIMETHICONE SUSP 40 MG/0.6 ML BOTTLE GT SCH ×4 (00:28→18:28)
[2019-05-08] MEDS: REGLAN GT SCH ×4 (00:28→18:28)
[2019-05-08] MEDS: INSULIN REGULAR, HUMAN 100 UNIT/ML 10 ML VIAL SQ SCH ×5 (00:29→23:58)
[2019-05-08] MEDS: IPRATROPIUM NEB FS 0.5 MG/2.5 ML AMPUL.NEB IH SCH ×4 (00:57→20:10)
--- NOTE | 2019-05-08 03:49 | NUR ---
PT RCVD TRACH'D ON COOL AEROSOL WITH CHARTED SETTINGS. PT TONY TX WELL. SX DONE. PT TRACH IS PATENT AND SECURE. AMBU BAG AT BEDSIDE. Addendum: 05/08/19 at 0350 by TITO GARCES RT Amended: Links added.
[2019-05-08] MEDS: OMEPRAZOLE 20 MG CAPSULE.DR GT SCH (05:59)
[2019-05-08] MEDS: PROSTAT (PYXIS) 30 ML UDC GT SCH ×3 (05:59→21:00)
[2019-05-08] MEDS: LACOSAMIDE ORAL SOLN 50 MG/5 ML UDC GT SCH ×2 (06:00→18:28)
[2019-05-08] MEDS: HYDROGEN PEROXIDE 480 ML BOTTLE TP SCH ×2 (08:16→21:33)
[2019-05-08] MEDS: ACETAMINOPHEN 650 MG/20.3 ML UDC GT SCH ×2 (09:00→21:00)
[2019-05-08] MEDS: LINAGLIPTIN 5 MG TABLET GT SCH (09:00)
[2019-05-08] MEDS: ACIDOPHILUS/BULGARICUS 1 EACH TAB.CHEW GT SCH (09:00)
[2019-05-08] MEDS: ASCORBIC ACID 500 MG TABLET GT SCH (09:00)
[2019-05-08] MEDS: METOPROLOL TARTRATE 25 MG TABLET GT SCH ×2 (09:00→21:00)
[2019-05-08] MEDS: DORZOLAMIDE OPTH 2% 10 ML BOTTLE EACHEYE SCH ×3 (09:00→17:00)
[2019-05-08] MEDS: FINASTERIDE (5 MG) 5 MG TABLET GT SCH (09:00)
[2019-05-08] MEDS: POTASSIUM CHLORIDE 20MEQ TAB GT SCH (09:00)
[2019-05-08] MEDS: CHLORHEXIDINE GLUCONATE 15 ML UDC MM SCH ×2 (09:00→21:00)
[2019-05-08] MEDS: POVIDONE-IODINE OINT 28.4 GM TUBE TP SCH ×4 (09:30→21:00)
[2019-05-08] MEDS: BETADINE TP SCH ×4 (09:30→21:00)
[2019-05-08] MEDS: VITAMINS A AND D 56.7 GM TUBE TP SCH ×2 (09:30→21:00)
[2019-05-08] MEDS: NEOMY SULF/BACITRAC ZN/POLY 15 GM TUBE TP SCH ×6 (09:30→21:00)
[2019-05-08] MEDS: MINERAL OIL/PETROL OINT 396 GM JAR TP SCH ×2 (09:30→21:00)
[2019-05-08] MEDS: PETROLATUM,WHITE PACKET 5 GM PACKET TP SCH ×2 (09:30→21:00)
[2019-05-08] MEDS: HYDROGEL DRESSING 90 GM TUBE TP SCH ×2 (09:30→21:00)
[2019-05-08] MEDS: Z GUARD REMEDY 4 OZ OINT TP SCH ×2 (09:30→21:00)
[2019-05-08] MEDS: CADEXOMER IODINE 40 GM TUBE TP SCH (09:30)
[2019-05-08] MEDS: NEPRO 1,000 ML BOTTLE GT PRN (10:36)
--- NOTE | 2019-05-08 12:40 | NUR ---
RT: RCVD PT ON CA. SPARE TRACH AND AMBU BAG AT HEAD OF BED. TX GIVEN ORDERED. NO ADVERSE REACTIONS OBSERVED. SUCTIONED MODERATE AMOUNTS OF THICK, PALE YELLOW SECRETIONS. TRACH CARE DONE. AIRWAY SECURED AND PATENT. NO SOB NOTED AT THIS TIME. WILL CONTINUE TO MONITOR PT FOR ANY CHANGE OF CONDITION.
[2019-05-08] MEDS: INSULIN GLARGINE, 100 UNIT/ML CARTRIDGE SQ SCH (22:00)
[2019-05-08] MEDS: TAMSULOSIN 0.4 MG CAP.SR.24H GT SCH (22:43)
[2019-05-08] MEDS: ATORVASTATIN 10 MG TABLET GT SCH (22:44)
[2019-05-08] MEDS: LATANOPROST EYE DROP 0.005% 2.5 ML BOTTLE EACHEYE SCH (22:52)
[2019-05-09] VITALS (8 sets, daily range): BP systolic 102–109; BP diastolic 52–70
[2019-05-09] MEDS: REGLAN GT SCH ×5 (00:06→23:21)
[2019-05-09] MEDS: SIMETHICONE SUSP 40 MG/0.6 ML BOTTLE GT SCH ×5 (00:06→23:22)
[2019-05-09] MEDS: IPRATROPIUM NEB FS 0.5 MG/2.5 ML AMPUL.NEB IH SCH ×4 (01:44→19:58)
[2019-05-09] MEDS: OMEPRAZOLE 20 MG CAPSULE.DR GT SCH (04:57)
[2019-05-09] MEDS: PROSTAT (PYXIS) 30 ML UDC GT SCH ×3 (04:58→21:00)
[2019-05-09] MEDS: LACOSAMIDE ORAL SOLN 50 MG/5 ML UDC GT SCH ×2 (05:05→17:06)
[2019-05-09] MEDS: INSULIN REGULAR, HUMAN 100 UNIT/ML 10 ML VIAL SQ SCH ×4 (05:19→23:34)
[2019-05-09] MEDS: BLOOD SUGAR DIAGNOSTIC 1 EACH STRIP IN SCH ×4 (05:44→23:30)
--- NOTE | 2019-05-09 05:55 | NUR ---
Pt picked up by [facility] to [facility] for HD.Patient vital signs stable.
[2019-05-09] MEDS: HYDROGEN PEROXIDE 480 ML BOTTLE TP SCH ×2 (09:00→21:04)
[2019-05-09] MEDS: DORZOLAMIDE OPTH 2% 10 ML BOTTLE EACHEYE SCH ×3 (09:00→16:54)
[2019-05-09] MEDS: ACIDOPHILUS/BULGARICUS 1 EACH TAB.CHEW GT SCH (09:00)
[2019-05-09] MEDS: VIT B CMPLX 3/FA/VIT C/BIOTIN 1 TAB TABLET GT SCH (09:00)
[2019-05-09] MEDS: LINAGLIPTIN 5 MG TABLET GT SCH (09:00)
[2019-05-09] MEDS: METOPROLOL TARTRATE 25 MG TABLET GT SCH ×2 (09:00→21:00)
[2019-05-09] MEDS: POTASSIUM CHLORIDE 20MEQ TAB GT SCH (09:00)
[2019-05-09] MEDS: ASCORBIC ACID 500 MG TABLET GT SCH (09:00)
[2019-05-09] MEDS: FINASTERIDE (5 MG) 5 MG TABLET GT SCH (09:00)
--- NOTE | 2019-05-09 09:45 | NUR ---
Relayed biopsy result to Dr Garduno. He said to relay the result to the clinical allergist. Informed Dr Garduno also that [facility] recommended to give Nephrovite daily. He agreed to recommendation.
[2019-05-09] MEDS: CHLORHEXIDINE GLUCONATE 15 ML UDC MM SCH ×2 (10:40→21:00)
[2019-05-09] MEDS: ACETAMINOPHEN 650 MG/20.3 ML UDC GT SCH ×2 (10:40→21:00)
--- NOTE | 2019-05-09 11:08 | NUR ---
Called Dr Moody's office [phone] and left message with Snow. Snow said to fax biopsy result to the office and she will personally give it to Dr Moody. Faxed result to [phone].
[2019-05-09] MEDS: POVIDONE-IODINE OINT 28.4 GM TUBE TP SCH ×4 (11:20→21:00)
[2019-05-09] MEDS: PETROLATUM,WHITE PACKET 5 GM PACKET TP SCH ×2 (11:20→21:00)
[2019-05-09] MEDS: MINERAL OIL/PETROL OINT 396 GM JAR TP SCH ×2 (11:20→21:00)
[2019-05-09] MEDS: CADEXOMER IODINE 40 GM TUBE TP SCH (11:20)
[2019-05-09] MEDS: NEOMY SULF/BACITRAC ZN/POLY 15 GM TUBE TP SCH ×6 (11:20→21:00)
[2019-05-09] MEDS: HYDROGEL DRESSING 90 GM TUBE TP SCH ×2 (11:20→21:00)
[2019-05-09] MEDS: VITAMINS A AND D 56.7 GM TUBE TP SCH ×2 (11:20→21:00)
[2019-05-09] MEDS: Z GUARD REMEDY 4 OZ OINT TP SCH ×2 (11:20→21:00)
[2019-05-09] MEDS: BETADINE TP SCH ×4 (11:20→21:00)
--- NOTE | 2019-05-09 12:03 | NUR ---
RT: PATIENT RECEIVED ON CA ON 28% O2. SPARE TRACH AND AMBU BAG AT HEAD OF BED. TX GIVEN ORDERED. NO ADVERSE REACTIONS OBSERVED. SUCTIONED SMALL AMOUNTS OF THICK, PALE YELLOW SECRETIONS. TRACH CARE DONE. AIRWAY SECURED AND PATENT. NO SOB OR SIGNS OF DISTRESS NOTED AT THIS TIME. WILL CONTINUE TO MONITOR PT FOR ANY CHANGES.
--- NOTE | 2019-05-09 14:06 | NUR ---
CHANI received a call from [facility] [phone] Johana WILDE stating that they have been trying to contact Dr. Lancaster for a Vascular consult with the resident as they are inquiring about catheter removal for the resident. CHANI contacted Dr. Lindsey office [phone] and left a message regarding above mentioned information with his digital assistant, Vivien. CHANI received a call from Dr. Lancaster [phone], who stated, The patients arms are so contracted, that it doesnt seem that we would be able to place an access in him. He would likely be dependent on catheter dialysis. Per Dr. Lancaster, he saw the patient on 04/22/19. CHANI contacted Johana [phone] back to relay information stated by Dr. Lancaster. Johana requested that CHANI fax Dr. César maldonado to her at [phone]. CHANI called patients Son, Dr. Johns [phone] to relay above mentioned information. Dr. Johns gave CHANI verbal consent to fax Dr. César maldonado to [facility]. CHANI faxed Dr. César maldonado to [facility] [phone] and received complete fax receipt.
--- NOTE | 2019-05-09 15:32 | NUR ---
Family invited to IDT: SW emailed patients responsible republican/father, Dr. Johns [phone] to invite him the IDT plan of care conference being held 05/17/19 in the activities room from 12:30pm-1:30pm. Dr. Johns stated he would let me know next week if he was available to participate.
--- NOTE | 2019-05-09 17:50 | NUR ---
Seen by BRANDO Lozano. Informed her that pt is no longer on Vancomycin. Also informed her of biopsy result. No new order.
[2019-05-09] MEDS: TAMSULOSIN 0.4 MG CAP.SR.24H GT SCH (22:00)
[2019-05-09] MEDS: LATANOPROST EYE DROP 0.005% 2.5 ML BOTTLE EACHEYE SCH (22:00)
[2019-05-09] MEDS: ATORVASTATIN 10 MG TABLET GT SCH (22:00)
--- NOTE | 2019-05-09 22:00 | NUR ---
RT NOTE PATIENT RECEIVED TRACHED ON COOL AEROSOL @ 28%. AMBU BAG/BACK UP TRACH @ BEDSIDE. TX GIVEN, NO ADVERSE REACTIONS NOTED. SX DONE, TRACH SECURED AND PATENT. WATER LEVEL GOOD. WILL CONTINUE TO MONITOR T/O SHIFT. VENT @ BEDSIDE FOR LATER USE. Addendum: 05/09/19 at 2201 by GINGER YOU RT Amended: Links added.
[2019-05-09] MEDS: INSULIN GLARGINE, 100 UNIT/ML CARTRIDGE SQ SCH (22:30)
--- NOTE | 2019-05-09 22:30 | NUR ---
HD CATHETER DRESSING LOOSE, PEELING OFF SKIN. CATHETER HAS NO S/S OF BLEEDING. NO S/S INFECTION. SITE CLEANED AND DRESSING CHANGED WITH CENTRAL LINE KIT PER PROTOCOL.
[2019-05-10] VITALS (7 sets, daily range): BP systolic 94–117; BP diastolic 59–75
[2019-05-10] MEDS: IPRATROPIUM NEB FS 0.5 MG/2.5 ML AMPUL.NEB IH SCH ×4 (01:30→20:05)
--- NOTE | 2019-05-10 03:00 | NUR ---
GT CLOGGED; UNCLOGGED GT FOUND TO BE CLOGGED. TUBING MILKED AND FLUSHED WITH WATER. DECLOGGER TOOL WAS ALSO USED. GT NOW FLUSHING AND PATENT. TUBE FEEDING CONTINUED ORDERED.
[2019-05-10] MEDS: PROSTAT (PYXIS) 30 ML UDC GT SCH ×3 (05:00→21:53)
[2019-05-10] MEDS: SIMETHICONE SUSP 40 MG/0.6 ML BOTTLE GT SCH ×3 (06:50→17:12)
[2019-05-10] MEDS: REGLAN GT SCH ×3 (06:51→17:12)
[2019-05-10] MEDS: OMEPRAZOLE 20 MG CAPSULE.DR GT SCH (06:51)
[2019-05-10] MEDS: INSULIN REGULAR, HUMAN 100 UNIT/ML 10 ML VIAL SQ SCH ×3 (06:55→17:14)
[2019-05-10] MEDS: LACOSAMIDE ORAL SOLN 50 MG/5 ML UDC GT SCH ×2 (06:58→17:12)
[2019-05-10] MEDS: BLOOD SUGAR DIAGNOSTIC 1 EACH STRIP IN SCH ×3 (06:58→17:12)
[2019-05-10] MEDS: HYDROGEN PEROXIDE 480 ML BOTTLE TP SCH ×2 (08:19→21:20)
[2019-05-10] MEDS: NEOMY SULF/BACITRAC ZN/POLY 15 GM TUBE TP SCH ×6 (09:00→21:59)
[2019-05-10] MEDS: Z GUARD REMEDY 4 OZ OINT TP SCH ×2 (09:00→21:59)
[2019-05-10] MEDS: BETADINE TP SCH ×4 (09:00→21:59)
[2019-05-10] MEDS: HYDROGEL DRESSING 90 GM TUBE TP SCH ×2 (09:00→21:59)
[2019-05-10] MEDS: POVIDONE-IODINE OINT 28.4 GM TUBE TP SCH ×4 (09:00→21:59)
[2019-05-10] MEDS: CADEXOMER IODINE 40 GM TUBE TP SCH (09:00)
[2019-05-10] MEDS: PETROLATUM,WHITE PACKET 5 GM PACKET TP SCH ×2 (09:00→21:59)
[2019-05-10] MEDS: MINERAL OIL/PETROL OINT 396 GM JAR TP SCH ×2 (09:00→21:59)
[2019-05-10] MEDS: VITAMINS A AND D 56.7 GM TUBE TP SCH ×2 (09:00→21:59)
[2019-05-10] MEDS: DORZOLAMIDE OPTH 2% 10 ML BOTTLE EACHEYE SCH ×3 (09:08→16:56)
[2019-05-10] MEDS: FINASTERIDE (5 MG) 5 MG TABLET GT SCH (09:09)
[2019-05-10] MEDS: ACIDOPHILUS/BULGARICUS 1 EACH TAB.CHEW GT SCH (09:09)
[2019-05-10] MEDS: ACETAMINOPHEN 650 MG/20.3 ML UDC GT SCH ×2 (09:09→21:53)
[2019-05-10] MEDS: LINAGLIPTIN 5 MG TABLET GT SCH (09:09)
[2019-05-10] MEDS: METOPROLOL TARTRATE 25 MG TABLET GT SCH ×2 (09:09→21:53)
[2019-05-10] MEDS: POTASSIUM CHLORIDE 20MEQ TAB GT SCH (09:09)
[2019-05-10] MEDS: CHLORHEXIDINE GLUCONATE 15 ML UDC MM SCH ×2 (09:09→21:53)
[2019-05-10] MEDS: ASCORBIC ACID 500 MG TABLET GT SCH (09:09)
[2019-05-10] MEDS: VIT B CMPLX 3/FA/VIT C/BIOTIN 1 TAB TABLET GT SCH (09:09)
[2019-05-10] MEDS: NEPRO 1,000 ML BOTTLE GT PRN (12:02)
--- NOTE | 2019-05-10 13:00 | NUR ---
Seen and examined by Dr. Dotson, no new order given. Will continue with present plan of care and continue to monitor and try to keep the site dry and prevent from developing into wet gangrene.
[2019-05-10] MEDS: ATORVASTATIN 10 MG TABLET GT SCH (21:53)
[2019-05-10] MEDS: LATANOPROST EYE DROP 0.005% 2.5 ML BOTTLE EACHEYE SCH (21:53)
[2019-05-10] MEDS: TAMSULOSIN 0.4 MG CAP.SR.24H GT SCH (21:53)
[2019-05-10] MEDS: INSULIN GLARGINE, 100 UNIT/ML CARTRIDGE SQ SCH (22:07)
[2019-05-11] VITALS (7 sets, daily range): BP systolic 106–131; BP diastolic 55–72
[2019-05-11] MEDS: SIMETHICONE SUSP 40 MG/0.6 ML BOTTLE GT SCH ×4 (00:13→18:20)
[2019-05-11] MEDS: BLOOD SUGAR DIAGNOSTIC 1 EACH STRIP IN SCH ×4 (00:13→18:20)
[2019-05-11] MEDS: REGLAN GT SCH ×4 (00:13→18:20)
[2019-05-11] MEDS: INSULIN REGULAR, HUMAN 100 UNIT/ML 10 ML VIAL SQ SCH ×4 (00:14→18:21)
[2019-05-11] MEDS: IPRATROPIUM NEB FS 0.5 MG/2.5 ML AMPUL.NEB IH SCH ×5 (01:55→20:16)
--- NOTE | 2019-05-11 04:46 | NUR ---
RT PATIENT WAS RECEIVED ON COOL AEROSOL AND PLACED ON VENT ON NOTED VENT SETTINGS DURING MIDNIGHT PER MD ORDER.PATIENT STABLE THROUGHOUT THE SHIFT.HHN TREATMENT WAS GIVEN, NO ADVERSE REACTION NOTED. AIRWAY PATENT AND SECURED. WILL CONTINUE TO MONITOR. Addendum: 05/11/19 at 0446 by ABEBA SUAREZ RT Amended: Links added.
[2019-05-11] MEDS: LACOSAMIDE ORAL SOLN 50 MG/5 ML UDC GT SCH ×2 (05:21→18:20)
[2019-05-11] MEDS: OMEPRAZOLE 20 MG CAPSULE.DR GT SCH (05:21)
[2019-05-11] MEDS: PROSTAT (PYXIS) 30 ML UDC GT SCH ×3 (05:21→21:42)
--- NOTE | 2019-05-11 05:52 | NUR ---
pt went out for dialysis via [facility]. stable vital signs. calm and comfortable. Trach secured and intact. on cool aeresol at 28% fio2. All emergency equipment taken/ambu-bag and back up trach. Jeremiah cath on left chest intact. dressing clean and dry.
[2019-05-11] MEDS: VIT B CMPLX 3/FA/VIT C/BIOTIN 1 TAB TABLET GT SCH (08:52)
[2019-05-11] MEDS: ASCORBIC ACID 500 MG TABLET GT SCH (08:52)
[2019-05-11] MEDS: ACIDOPHILUS/BULGARICUS 1 EACH TAB.CHEW GT SCH (08:52)
[2019-05-11] MEDS: POTASSIUM CHLORIDE 20MEQ TAB GT SCH (08:52)
[2019-05-11] MEDS: LINAGLIPTIN 5 MG TABLET GT SCH (08:52)
[2019-05-11] MEDS: DORZOLAMIDE OPTH 2% 10 ML BOTTLE EACHEYE SCH ×3 (08:52→17:00)
[2019-05-11] MEDS: FINASTERIDE (5 MG) 5 MG TABLET GT SCH (08:52)
[2019-05-11] MEDS: METOPROLOL TARTRATE 25 MG TABLET GT SCH ×2 (08:52→21:00)
[2019-05-11] MEDS: HYDROGEN PEROXIDE 480 ML BOTTLE TP SCH ×2 (09:00→21:00)
--- NOTE | 2019-05-11 09:00 | NUR ---
Informed Dr. Garduno that skin biopsy result was faxed to Dr. Moody's office a few days ago, but has not heard from MD regarding her recommendations. According to Dr. Garduno, the world travel counselor is out of town and will call her on Monday. Endorsed.
--- NOTE | 2019-05-11 10:50 | NUR ---
Patient returned form Hemodialysis as ordered with two EMT's and one RT via ambulance and gurney. Eyes open. Trach with cool aerosol as ordered. GT in place patent no residual. Total care provided. Moist oral mucosa. No acute distress noted.
[2019-05-11] MEDS: CHLORHEXIDINE GLUCONATE 15 ML UDC MM SCH ×2 (12:36→21:54)
[2019-05-11] MEDS: ACETAMINOPHEN 650 MG/20.3 ML UDC GT SCH ×2 (12:36→21:42)
[2019-05-11] MEDS: PETROLATUM,WHITE PACKET 5 GM PACKET TP SCH ×2 (13:10→21:55)
[2019-05-11] MEDS: POVIDONE-IODINE OINT 28.4 GM TUBE TP SCH ×4 (13:10→21:54)
[2019-05-11] MEDS: VITAMINS A AND D 56.7 GM TUBE TP SCH ×2 (13:10→21:55)
[2019-05-11] MEDS: CADEXOMER IODINE 40 GM TUBE TP SCH (13:10)
[2019-05-11] MEDS: HYDROGEL DRESSING 90 GM TUBE TP SCH ×2 (13:10→21:54)
[2019-05-11] MEDS: BETADINE TP SCH ×4 (13:10→21:54)
[2019-05-11] MEDS: Z GUARD REMEDY 4 OZ OINT TP SCH ×2 (13:10→21:55)
[2019-05-11] MEDS: MINERAL OIL/PETROL OINT 396 GM JAR TP SCH ×2 (13:10→21:54)
[2019-05-11] MEDS: NEOMY SULF/BACITRAC ZN/POLY 15 GM TUBE TP SCH ×6 (13:10→21:54)
[2019-05-11] MEDS: NEPRO 1,000 ML BOTTLE GT PRN (20:00)
[2019-05-11] MEDS: TAMSULOSIN 0.4 MG CAP.SR.24H GT SCH (21:42)
[2019-05-11] MEDS: ATORVASTATIN 10 MG TABLET GT SCH (21:42)
[2019-05-11] MEDS: LATANOPROST EYE DROP 0.005% 2.5 ML BOTTLE EACHEYE SCH (21:55)
[2019-05-11] MEDS: INSULIN GLARGINE, 100 UNIT/ML CARTRIDGE SQ SCH (21:56)
[2019-05-12] VITALS (7 sets, daily range): BP systolic 115–134; BP diastolic 61–73
[2019-05-12] MEDS: REGLAN GT SCH ×4 (00:42→18:50)
[2019-05-12] MEDS: SIMETHICONE SUSP 40 MG/0.6 ML BOTTLE GT SCH ×4 (00:42→18:50)
[2019-05-12] MEDS: BLOOD SUGAR DIAGNOSTIC 1 EACH STRIP IN SCH ×4 (00:44→18:50)
[2019-05-12] MEDS: INSULIN REGULAR, HUMAN 100 UNIT/ML 10 ML VIAL SQ SCH ×4 (00:44→18:52)
[2019-05-12] MEDS: IPRATROPIUM NEB FS 0.5 MG/2.5 ML AMPUL.NEB IH SCH ×4 (01:59→19:33)
[2019-05-12] MEDS: PROSTAT (PYXIS) 30 ML UDC GT SCH ×3 (05:35→21:52)
[2019-05-12] MEDS: LACOSAMIDE ORAL SOLN 50 MG/5 ML UDC GT SCH ×2 (05:35→18:50)
[2019-05-12] MEDS: OMEPRAZOLE 20 MG CAPSULE.DR GT SCH (05:35)
[2019-05-12] MEDS: NEPRO 1,000 ML BOTTLE GT PRN ×2 (06:49→12:17)
[2019-05-12] MEDS: HYDROGEN PEROXIDE 480 ML BOTTLE TP SCH ×2 (08:28→21:53)
[2019-05-12] MEDS: MINERAL OIL/PETROL OINT 396 GM JAR TP SCH ×2 (09:00→21:53)
[2019-05-12] MEDS: ACIDOPHILUS/BULGARICUS 1 EACH TAB.CHEW GT SCH (09:00)
[2019-05-12] MEDS: NEOMY SULF/BACITRAC ZN/POLY 15 GM TUBE TP SCH ×6 (09:00→21:53)
[2019-05-12] MEDS: VIT B CMPLX 3/FA/VIT C/BIOTIN 1 TAB TABLET GT SCH (09:00)
[2019-05-12] MEDS: ACETAMINOPHEN 650 MG/20.3 ML UDC GT SCH ×2 (09:00→21:53)
[2019-05-12] MEDS: POTASSIUM CHLORIDE 20MEQ TAB GT SCH (09:00)
[2019-05-12] MEDS: CHLORHEXIDINE GLUCONATE 15 ML UDC MM SCH ×2 (09:00→21:53)
[2019-05-12] MEDS: ASCORBIC ACID 500 MG TABLET GT SCH (09:00)
[2019-05-12] MEDS: HYDROGEL DRESSING 90 GM TUBE TP SCH ×2 (09:00→21:53)
[2019-05-12] MEDS: LINAGLIPTIN 5 MG TABLET GT SCH (09:00)
[2019-05-12] MEDS: METOPROLOL TARTRATE 25 MG TABLET GT SCH ×2 (09:00→21:52)
[2019-05-12] MEDS: BETADINE TP SCH ×4 (09:00→21:53)
[2019-05-12] MEDS: VITAMINS A AND D 56.7 GM TUBE TP SCH ×2 (09:00→21:54)
[2019-05-12] MEDS: CADEXOMER IODINE 40 GM TUBE TP SCH (09:00)
[2019-05-12] MEDS: POVIDONE-IODINE OINT 28.4 GM TUBE TP SCH ×4 (09:00→21:53)
[2019-05-12] MEDS: FINASTERIDE (5 MG) 5 MG TABLET GT SCH (09:00)
[2019-05-12] MEDS: Z GUARD REMEDY 4 OZ OINT TP SCH ×2 (09:00→21:53)
[2019-05-12] MEDS: DORZOLAMIDE OPTH 2% 10 ML BOTTLE EACHEYE SCH ×3 (09:00→17:00)
[2019-05-12] MEDS: PETROLATUM,WHITE PACKET 5 GM PACKET TP SCH ×2 (09:00→21:54)
--- NOTE | 2019-05-12 16:00 | NUR ---
Seen and examined by Dr. Garduno, he reviewed blood sugar results for the past few days with order to increase Lantus from 34 units to 36 units. He also said he will call digital circuit designer tomorrow of her recommendation based on skin biopsy result. Dr. Garduno assessed lower extremities, especially the toes which appears to be darkening. he also read the latest notes from mower sharpener and vascular surgeon, Dr. Lancaster. Resident's son informed of new order and Dr. Garduno's plan to speak with digital circuit designer and vascular surgeon. Appreciated the call.
[2019-05-12] MEDS: ATORVASTATIN 10 MG TABLET GT SCH (21:54)
[2019-05-12] MEDS: LATANOPROST EYE DROP 0.005% 2.5 ML BOTTLE EACHEYE SCH (21:54)
[2019-05-12] MEDS: TAMSULOSIN 0.4 MG CAP.SR.24H GT SCH (21:54)
[2019-05-12] MEDS: INSULIN GLARGINE, 100 UNIT/ML CARTRIDGE SQ SCH (22:44)
[2019-05-13] MEDS: BLOOD SUGAR DIAGNOSTIC 1 EACH STRIP IN SCH ×5 (00:50→23:17)
--- NOTE | 2019-05-13 00:50 | NUR ---
SUBACUTE RN NOTE: PATIENT BLOOD SUGAR LEVEL 290MG/DL, TO RECEIVE LANTUS 36UNIT PER MD ORDER AND 6 UNITS OF INSULIN PER SLIDING SCALE. NO S/S OF HYPER/HYPOGLYCEMIA NOTED. WILL CONTINUE TO MONITOR.
[2019-05-13] MEDS: REGLAN GT SCH ×4 (00:51→18:31)
[2019-05-13] MEDS: SIMETHICONE SUSP 40 MG/0.6 ML BOTTLE GT SCH ×4 (00:51→18:31)
[2019-05-13] MEDS: INSULIN REGULAR, HUMAN 100 UNIT/ML 10 ML VIAL SQ SCH ×5 (00:51→23:18)
[2019-05-13 01:30] VITALS: BP 118/62
[2019-05-13] MEDS: IPRATROPIUM NEB FS 0.5 MG/2.5 ML AMPUL.NEB IH SCH ×4 (02:14→19:33)
[2019-05-13] MEDS: OMEPRAZOLE 20 MG CAPSULE.DR GT SCH (05:30)
[2019-05-13] MEDS: PROSTAT (PYXIS) 30 ML UDC GT SCH ×3 (05:32→22:50)
[2019-05-13] MEDS: LACOSAMIDE ORAL SOLN 50 MG/5 ML UDC GT SCH ×2 (05:35→18:31)
[2019-05-13 05:45] VITALS: BP 115/68
[2019-05-13 07:48] VITALS: BP 120/63
[2019-05-13 09:00] VITALS: BP 120/63
[2019-05-13] MEDS: BETADINE TP SCH ×4 (09:00→22:10)
[2019-05-13] MEDS: LINAGLIPTIN 5 MG TABLET GT SCH (09:00)
[2019-05-13] MEDS: POVIDONE-IODINE OINT 28.4 GM TUBE TP SCH ×4 (09:00→22:10)
[2019-05-13] MEDS: FINASTERIDE (5 MG) 5 MG TABLET GT SCH (09:00)
[2019-05-13] MEDS: POTASSIUM CHLORIDE 20MEQ TAB GT SCH (09:00)
[2019-05-13] MEDS: VITAMINS A AND D 56.7 GM TUBE TP SCH ×2 (09:00→22:10)
[2019-05-13] MEDS: HYDROGEN PEROXIDE 480 ML BOTTLE TP SCH ×2 (09:00→21:04)
[2019-05-13] MEDS: CHLORHEXIDINE GLUCONATE 15 ML UDC MM SCH ×2 (09:00→22:15)
[2019-05-13] MEDS: NEOMY SULF/BACITRAC ZN/POLY 15 GM TUBE TP SCH ×6 (09:00→22:10)
[2019-05-13] MEDS: CADEXOMER IODINE 40 GM TUBE TP SCH (09:00)
[2019-05-13] MEDS: METOPROLOL TARTRATE 25 MG TABLET GT SCH ×2 (09:00→21:00)
[2019-05-13] MEDS: ASCORBIC ACID 500 MG TABLET GT SCH (09:00)
[2019-05-13] MEDS: VIT B CMPLX 3/FA/VIT C/BIOTIN 1 TAB TABLET GT SCH (09:00)
[2019-05-13] MEDS: HYDROGEL DRESSING 90 GM TUBE TP SCH ×2 (09:00→22:10)
[2019-05-13] MEDS: Z GUARD REMEDY 4 OZ OINT TP SCH ×2 (09:00→22:10)
[2019-05-13] MEDS: PETROLATUM,WHITE PACKET 5 GM PACKET TP SCH ×2 (09:00→22:10)
[2019-05-13] MEDS: ACIDOPHILUS/BULGARICUS 1 EACH TAB.CHEW GT SCH (09:00)
[2019-05-13] MEDS: ACETAMINOPHEN 650 MG/20.3 ML UDC GT SCH ×2 (09:00→22:50)
[2019-05-13] MEDS: DORZOLAMIDE OPTH 2% 10 ML BOTTLE EACHEYE SCH ×3 (09:00→17:00)
[2019-05-13] MEDS: MINERAL OIL/PETROL OINT 396 GM JAR TP SCH ×2 (09:00→22:10)
[2019-05-13] MEDS: NEPRO 1,000 ML BOTTLE GT PRN (13:28)
--- NOTE | 2019-05-13 15:51 | NUR ---
CHANI called [facility] [phone] and spoke to front desk receptionist, Ursula to follow up with sewing machine repairer, as she has yet to give Tx orders for patient. Per Ursula, Dr. Moody was currently in surgery and informed CHANI that will be in tomorrow from 8:30-5 pm. CHANI left a message for and will follow-up tomorow.
--- NOTE | 2019-05-13 16:25 | NUR ---
CHANI spoke to patient as he expressed discontent in regard to one of the CNAs, Luciana to Dr. Garduno on 04/10/19. SW spoke to patient to better understand situation. Per patient, he is under a lot of pain as he has a sacral wound on the buttocks and when the pillow under the buttocks is changed is causes him even more pain. SW validated patient as he is, in fact, in a lot of pain and reminded patient that his pain medication has just been reviewed to help alleviate his intense pain. Patient expressed understanding. Patient had a verbal outburst when talking about said nurse. SW gave verbal praise to patient for informing his doctor about his discontentment. SW educated patient, that spitting and having verbal outbursts towards staff in unacceptable as they are providing care, and informed him that real change happens after he calmly verbalizes discomfort to staff. Patient expressed understanding and stated, I will try to do more talking instead of spitting. CHANI spoke to CERAMIST about the situation and she stated that the patient has Hx of spitting behavior when he doesnt want to be turned or the pillow under the buttocks to be changed. Per Luciana, she changed the patients pillow accompanied by a SENIOR STAFF ACCOUNTANT. Per Luciana, the patient allegedly began to unsuccessful attempt to spit at her. SW reminded Luciana to always wear mouth and eye shield as the patient is on isolation. SW encouraged Luciana to inform charge nurse every time the patient attempts to spit and/or has verbal outburst. Luciana expressed understanding and was agreeable to plan. Addendum: 05/14/19 at 0941 by DODIE WILDE Disregard Note, it is for a different patient.
[2019-05-13 18:00] VITALS: BP 118/70
[2019-05-13 19:49] VITALS: BP 99/51
[2019-05-13] MEDS: TAMSULOSIN 0.4 MG CAP.SR.24H GT SCH (22:00)
[2019-05-13] MEDS: INSULIN GLARGINE, 100 UNIT/ML CARTRIDGE SQ SCH (22:00)
[2019-05-13] MEDS: ATORVASTATIN 10 MG TABLET GT SCH (22:00)
[2019-05-13] MEDS: LATANOPROST EYE DROP 0.005% 2.5 ML BOTTLE EACHEYE SCH (22:00)
[2019-05-14] MEDS: IPRATROPIUM NEB FS 0.5 MG/2.5 ML AMPUL.NEB IH SCH ×3 (00:43→13:16)
[2019-05-14] MEDS: PROSTAT (PYXIS) 30 ML UDC GT SCH ×2 (05:00→13:00)
[2019-05-14] MEDS: OMEPRAZOLE 20 MG CAPSULE.DR GT SCH (05:39)
[2019-05-14] MEDS: REGLAN GT SCH ×4 (05:39→17:59)
[2019-05-14] MEDS: BLOOD SUGAR DIAGNOSTIC 1 EACH STRIP IN SCH ×3 (05:40→17:59)
[2019-05-14] MEDS: SIMETHICONE SUSP 40 MG/0.6 ML BOTTLE GT SCH ×4 (05:41→17:59)
[2019-05-14] MEDS: LACOSAMIDE ORAL SOLN 50 MG/5 ML UDC GT SCH ×2 (05:41→17:59)
[2019-05-14] MEDS: INSULIN REGULAR, HUMAN 100 UNIT/ML 10 ML VIAL SQ SCH ×3 (05:51→17:59)
[2019-05-14] MEDS: HYDROGEL DRESSING 90 GM TUBE TP SCH (09:00)
[2019-05-14] MEDS: POTASSIUM CHLORIDE 20MEQ TAB GT SCH (09:00)
[2019-05-14] MEDS: POVIDONE-IODINE OINT 28.4 GM TUBE TP SCH ×2 (09:00)
[2019-05-14] MEDS: ACIDOPHILUS/BULGARICUS 1 EACH TAB.CHEW GT SCH (09:00)
[2019-05-14] MEDS: Z GUARD REMEDY 4 OZ OINT TP SCH (09:00)
[2019-05-14] MEDS: CHLORHEXIDINE GLUCONATE 15 ML UDC MM SCH (09:00)
[2019-05-14] MEDS: NEOMY SULF/BACITRAC ZN/POLY 15 GM TUBE TP SCH ×3 (09:00)
[2019-05-14] MEDS: ACETAMINOPHEN 650 MG/20.3 ML UDC GT SCH (09:00)
[2019-05-14] MEDS: ASCORBIC ACID 500 MG TABLET GT SCH (09:00)
[2019-05-14] MEDS: VIT B CMPLX 3/FA/VIT C/BIOTIN 1 TAB TABLET GT SCH (09:00)
[2019-05-14] MEDS: METOPROLOL TARTRATE 25 MG TABLET GT SCH (09:00)
[2019-05-14] MEDS: BETADINE TP SCH ×2 (09:00)
[2019-05-14] MEDS: PETROLATUM,WHITE PACKET 5 GM PACKET TP SCH (09:00)
[2019-05-14] MEDS: LINAGLIPTIN 5 MG TABLET GT SCH (09:00)
[2019-05-14] MEDS: FINASTERIDE (5 MG) 5 MG TABLET GT SCH (09:00)
[2019-05-14] MEDS: HYDROGEN PEROXIDE 480 ML BOTTLE TP SCH (09:00)
[2019-05-14] MEDS: VITAMINS A AND D 56.7 GM TUBE TP SCH (09:00)
[2019-05-14] MEDS: CADEXOMER IODINE 40 GM TUBE TP SCH (09:00)
[2019-05-14] MEDS: MINERAL OIL/PETROL OINT 396 GM JAR TP SCH (09:00)
[2019-05-14] MEDS: DORZOLAMIDE OPTH 2% 10 ML BOTTLE EACHEYE SCH ×3 (09:00→17:00)
--- NOTE | 2019-05-14 10:44 | NUR ---
Renal informed the unit that pt's dialysis was stopped due to the catheter being dislodged. According to Иван ( Renal), pt will be sent to ER. Notified Dr Garduno. Also asked Dr Garduno if pt can be admitted to [facility] for treatment of bullous pemphigoid. Dr Garduno said pt cannot be admitted to [facility] since there is no pelt dropper who can follow pt in the hospital and the hospital is not able to provide treatment for bullous pemphigoid. He said that Dr Moody is recommending to send pt to [facility] for treatment. Dr Moody will not follow pt in [facility]. Pt needs to be transferred to [facility] via ER. Dr Garduno left message for pt's son to ask him if he agrees to send pt to [facility] for treatment. Dr Garduno awaiting pt's son's call back.
--- NOTE | 2019-05-14 10:55 | NUR ---
Called pt's son Dr Johns. Informed him that pt will be sent to ER due to dislodged dialysis catheter. Also informed him that Dr Garduno would like to speak with him regarding transferring pt to [facility] for bullous pemphigoid treatment. Dr Johns said he will call Dr Garduno.
--- NOTE | 2019-05-14 13:37 | NUR ---
Pt's son Dr Johns called and informed charge nurse that he spoke with Dr Garduno. Pt's son said he does not want pt to be transferred to [facility], he does not want pt to go through that process. He said he prefer a less aggressive treatment for pt that can be done here in [facility]. No new order from Dr Garduno at this time. Pt in [facility] ER right now.
--- NOTE | 2019-05-14 17:51 | NUR ---
NO INTERVENTIONS WERE DONE FOR 10AM, 12N, 1700, AND 1800. RESIDENT TRANSFERRED FROM DIALYSIS CENTER TO ER DUE TO DIALYSIS CATHETER DISLODGE.
[2019-05-15] MEDS ORDERED: METO25TA6 GT (18:37)
[2019-05-15] MEDS ORDERED: ACET-73 PO (18:37)
[2019-05-15] MEDS ORDERED: ONDA4TAB5 GT (18:37)
[2019-05-15] MEDS ORDERED: INSU100V7 SQ (18:37)
[2019-05-15] MEDS ORDERED: HYDR-4076 PO (18:37)
[2019-05-15] MEDS ORDERED: LACO10SO GT (18:37)
[2019-05-18 21:40] VITALS: BP 100/47
[2019-05-18] MEDS: HYDROGEN PEROXIDE 480 ML BOTTLE TP SCH (22:00)
[2019-05-18] MEDS: PROSTAT (PYXIS) 30 ML UDC GT SCH (22:00)
[2019-05-18] MEDS: PETROLATUM,WHITE PACKET 5 GM PACKET TP SCH (22:00)
[2019-05-18] MEDS: INSULIN GLARGINE, 100 UNIT/ML CARTRIDGE SQ SCH (22:00)
[2019-05-18] MEDS: TAMSULOSIN 0.4 MG CAP.SR.24H GT SCH (22:00)
[2019-05-18] MEDS: Z GUARD REMEDY 4 OZ OINT TP SCH (22:00)
[2019-05-18] MEDS: ACETAMINOPHEN 650 MG/20.3 ML UDC GT SCH (22:00)
[2019-05-18] MEDS: VITAMINS A AND D 56.7 GM TUBE TP SCH (22:00)
[2019-05-18] MEDS: MINERAL OIL/PETROL OINT 396 GM JAR TP SCH (22:00)
[2019-05-18] MEDS: METOPROLOL TARTRATE 25 MG TABLET GT SCH (22:00)
[2019-05-18] MEDS: HYDROGEL DRESSING 90 GM TUBE TP SCH (22:00)
[2019-05-18] MEDS: CHLORHEXIDINE GLUCONATE 15 ML UDC MM SCH (22:00)
[2019-05-18] MEDS: POVIDONE-IODINE OINT 28.4 GM TUBE TP SCH ×2 (22:00)
[2019-05-18] MEDS: ATORVASTATIN 10 MG TABLET GT SCH (22:00)
[2019-05-18] MEDS: BETADINE TP SCH ×2 (22:00)
[2019-05-18] MEDS: LATANOPROST EYE DROP 0.005% 2.5 ML BOTTLE EACHEYE SCH (22:00)
[2019-05-18] MEDS: NEPRO 1,000 ML BOTTLE GT PRN (22:30)
--- NOTE | 2019-05-18 22:30 | NUR ---
received patient from rachelle via bed. patient calm, no s/s of distress noted. vs within acceptable range. s/p dialysis port repair now on right upper chest with clean and dry dressing. no s/s of bleeding within the site. multiple blister wound noted around the patient's body. wound picture taken. son is outside the patient room. will informed primary physician that member is in subacute now.
--- NOTE | 2019-05-18 22:31 | NUR ---
Charge nurse JAKOB Lugo that patient is back on Subacute. SC asked if all medication order and feeding resume and he responded yes. will continue all current order for now.
[2019-05-18] MEDS: REGLAN GT SCH (23:05)
[2019-05-18] MEDS: SIMETHICONE SUSP 40 MG/0.6 ML BOTTLE GT SCH (23:06)
[2019-05-18] MEDS: INSULIN REGULAR, HUMAN 100 UNIT/ML 10 ML VIAL SQ SCH (23:36)
[2019-05-18] MEDS: BLOOD SUGAR DIAGNOSTIC 1 EACH STRIP IN SCH (23:36)
[2019-05-19] MEDS: OMEPRAZOLE 20 MG CAPSULE.DR GT SCH (05:51)
[2019-05-19] MEDS: LACOSAMIDE ORAL SOLN 50 MG/5 ML UDC GT SCH ×2 (05:52→17:40)
[2019-05-19] MEDS: SIMETHICONE SUSP 40 MG/0.6 ML BOTTLE GT SCH ×3 (05:52→17:35)
[2019-05-19] MEDS: REGLAN GT SCH ×3 (05:52→21:00)
[2019-05-19] MEDS: BLOOD SUGAR DIAGNOSTIC 1 EACH STRIP IN SCH ×3 (05:53→18:10)
[2019-05-19] MEDS: INSULIN REGULAR, HUMAN 100 UNIT/ML 10 ML VIAL SQ SCH ×3 (05:54→18:12)
[2019-05-19 06:35] VITALS: BP 117/43
[2019-05-19 07:49] VITALS: BP 110/69
[2019-05-19] MEDS ORDERED: BISACODYL SUPP (10 MG) 10 MG/SUPP.RECT SUPP.RECT RC PRN (08:30)
[2019-05-19] MEDS ORDERED: DEXTROSE 50%-WATER 50 ML DISP.SYRIN IV PRN (08:30)
[2019-05-19] MEDS ORDERED: HYDROCODONE/APAP 5/325MG 1 EACH TABLET GT PRN (08:30)
[2019-05-19] MEDS: ALBUTEROL FS 2.5 MG/0.5 ML VIAL.NEB NEB SCH ×3 (08:31→19:59)
[2019-05-19] MEDS: HYDROGEN PEROXIDE 480 ML BOTTLE TP SCH ×2 (09:00→21:20)
[2019-05-19] MEDS: DORZOLAMIDE OPTH 2% 10 ML BOTTLE EACHEYE SCH ×3 (09:00→17:35)
[2019-05-19] MEDS ORDERED: ACETAMINOPHEN 650 MG SUPP.RECT RC PRN (09:00)
[2019-05-19] MEDS: PETROLATUM,WHITE PACKET 5 GM PACKET TP SCH ×2 (09:00→21:00)
[2019-05-19] MEDS: FINASTERIDE (5 MG) 5 MG TABLET GT SCH (09:00)
[2019-05-19] MEDS: MUPIROCIN OINT 2% 22 GM TUBE SCH ×2 (09:00→21:59)
[2019-05-19] MEDS ORDERED: MAG HYDROX/AL HYDROX/SIMETH 30 ML UDC PO PRN (09:00)
[2019-05-19] MEDS: VITAMINS A AND D 56.7 GM TUBE TP SCH ×2 (09:00→21:00)
[2019-05-19] MEDS ORDERED: LORAZEPAM INJ 2 MG/ML VIAL IM/IV PRN (09:00)
[2019-05-19] MEDS: CHLORHEXIDINE GLUCONATE 15 ML UDC MM SCH ×2 (09:00→21:59)
[2019-05-19] MEDS: Z GUARD REMEDY 4 OZ OINT TP SCH ×2 (09:00→21:00)
[2019-05-19] MEDS: VIT B CMPLX 3/FA/VIT C/BIOTIN 1 TAB TABLET GT SCH (09:00)
[2019-05-19] MEDS: PREDNISONE GT SCH (09:00)
[2019-05-19] MEDS: ACIDOPHILUS/BULGARICUS 1 EACH TAB.CHEW GT SCH (09:00)
[2019-05-19] MEDS ORDERED: HYDROGEN PEROXIDE 480 ML BOTTLE TP PRN (09:00)
[2019-05-19] MEDS ORDERED: ACETAMINOPHEN SUP SA PATIENTS 650 MG SUPP RC PRN (09:00)
[2019-05-19] MEDS: LINAGLIPTIN 5 MG TABLET GT SCH (09:00)
[2019-05-19] MEDS ORDERED: MAGNESIUM HYDROXIDE 30 ML UDC PO PRN (09:00)
[2019-05-19] MEDS ORDERED: ONDANSETRON 4 MG TAB.RAPDIS GT PRN (09:00)
[2019-05-19] MEDS ORDERED: ACETAMINOPHEN 650 MG/20 ML UDC- SA PATIENTS-FEVER ONLY GT PRN (09:00)
[2019-05-19] MEDS ORDERED: DOXYCYCLINE HYCLATE (100 MG) 100 MG TABLET PO SCH (09:00)
[2019-05-19] MEDS ORDERED: MORPHINE SULFATE INJ 2 MG/ML DISP.SYRIN IV PRN (09:00)
[2019-05-19] MEDS: ASCORBIC ACID 500 MG TABLET GT SCH (09:00)
--- NOTE | 2019-05-19 09:51 | NUR ---
Spoke to Dr. Garduno regarding clarification of medications orders, 1. generalized skin rashes/buttocks dryness apply a&d ointment qshift for skin maintenance, 2. nephrovite 1 tab via gtube daily, 3. acetaminophen 650mg via gtube 30 minutes prior wound treatment, 4. d/c pantoprazole sodium 40meq change to omeprazole 20mg via gtube every day at 6am, 5. potassium chloride 20 meq, 6. lantus 36 units sq, and doxycycline 100mg via gtube q12hrs, orders carried out, responsible libertarian made aware.
[2019-05-19] MEDS ORDERED: POTASSIUM CHLORIDE 20 MEQ POWDER PACKET GT SCH (11:05)
[2019-05-19] MEDS: POTASSIUM CHLORIDE 20MEQ TAB GT SCH (12:05)
[2019-05-19] MEDS: DOXYCYCLINE HYCLATE (100 MG) 100 MG TABLET GT SCH ×2 (12:06→21:59)
[2019-05-19] MEDS: PROSTAT (PYXIS) 30 ML UDC GT SCH ×2 (12:07→21:58)
[2019-05-19] MEDS: IPRATROPIUM NEB FS 0.5 MG/2.5 ML AMPUL.NEB IH SCH ×2 (13:43→19:59)
[2019-05-19 18:20] VITALS: BP 122/82
--- NOTE | 2019-05-19 18:29 | NUR ---
Clarification of order for HD catheter, d/c previous left upper chest hd catheter on site wastewater systems technician for s/s of bleeding and notify harjit barajas/janes left upper chest HD catheter on site wastewater systems technician for s/s of infection every shift keep area clean and dry every shift, change to right upper chest HD catheter site: monitorfor s/s of infection every shift keep area clean and dry, every shift, right upper chest HD catheter monitor for S/S of bleeding and notify MD, order carried out, and responsible republican aware.
[2019-05-19 21:00] VITALS: BP 133/69
[2019-05-19] MEDS: NYSTATIN/TRIAMCIN 15 GM CREAM 15 GM TUBE TP SCH (21:00)
[2019-05-19 21:11] VITALS: BP 133/69
[2019-05-19] MEDS: ACETAMINOPHEN 650 MG/20 ML UDC- SA PATIENTS-PAIN ONLY GT SCH (21:58)
[2019-05-19] MEDS: CADEXOMER IODINE 40 GM TUBE TP SCH (21:59)
[2019-05-19] MEDS: HYDROGEL DRESSING 90 GM TUBE TP SCH (21:59)
[2019-05-19] MEDS: LATANOPROST EYE DROP 0.005% 2.5 ML BOTTLE EACHEYE SCH (22:00)
[2019-05-19] MEDS: TAMSULOSIN 0.4 MG CAP.SR.24H GT SCH (22:01)
[2019-05-19] MEDS: INSULIN GLARGINE, 100 UNIT/ML CARTRIDGE SQ SCH (22:01)
[2019-05-19] MEDS: ATORVASTATIN 10 MG TABLET GT SCH (22:01)
--- NOTE | 2019-05-19 22:10 | NUR ---
RT NOTES TRACH TUBE IN PLACE, PATENT, AND SECURED WITH TRACH TIE. ALARMS ON AND AUDIBLE. VENT PLUGGED IN TO THE RED OUTLET. BACK UP TRACH AND AMBU BAG BY THE BEDSIDE. NO SIGNS OF ANY DISTRESS AT THIS TIME. Addendum: 05/19/19 at 2210 by JHON PARISH RT Amended: Links added.
[2019-05-19] MEDS: NEPRO 1,000 ML BOTTLE GT PRN (22:54)
[2019-05-20] VITALS (7 sets, daily range): BP systolic 101–132; BP diastolic 38–59
[2019-05-20] MEDS: INSULIN REGULAR, HUMAN 100 UNIT/ML 10 ML VIAL SQ SCH ×5 (00:47→23:21)
[2019-05-20] MEDS: BLOOD SUGAR DIAGNOSTIC 1 EACH STRIP IN SCH ×5 (00:47→23:21)
[2019-05-20] MEDS: SIMETHICONE SUSP 40 MG/0.6 ML BOTTLE GT SCH ×5 (00:48→23:21)
[2019-05-20] MEDS: ALBUTEROL FS 2.5 MG/0.5 ML VIAL.NEB NEB SCH ×4 (00:55→19:26)
[2019-05-20] MEDS: IPRATROPIUM NEB FS 0.5 MG/2.5 ML AMPUL.NEB IH SCH ×4 (00:55→19:26)
[2019-05-20] MEDS: LACOSAMIDE ORAL SOLN 50 MG/5 ML UDC GT SCH ×2 (05:21→17:54)
[2019-05-20] MEDS: PROSTAT (PYXIS) 30 ML UDC GT SCH ×3 (05:21→21:28)
[2019-05-20] MEDS: REGLAN GT SCH ×3 (05:21→21:28)
[2019-05-20] MEDS: OMEPRAZOLE 20 MG CAPSULE.DR GT SCH (05:21)
[2019-05-20] MEDS: ACETAMINOPHEN 650 MG/20 ML UDC- SA PATIENTS-PAIN ONLY GT SCH ×2 (09:00→21:29)
[2019-05-20] MEDS: HYDROGEL DRESSING 90 GM TUBE TP SCH ×2 (09:00→21:29)
[2019-05-20] MEDS: ACIDOPHILUS/BULGARICUS 1 EACH TAB.CHEW GT SCH (09:00)
[2019-05-20] MEDS: PETROLATUM,WHITE PACKET 5 GM PACKET TP SCH ×3 (09:00→21:30)
[2019-05-20] MEDS: CHLORHEXIDINE GLUCONATE 15 ML UDC MM SCH ×2 (09:00→21:29)
[2019-05-20] MEDS: ASCORBIC ACID 500 MG TABLET GT SCH (09:00)
[2019-05-20] MEDS: PREDNISONE GT SCH (09:00)
[2019-05-20] MEDS: LINAGLIPTIN 5 MG TABLET GT SCH (09:00)
[2019-05-20] MEDS: VITAMINS A AND D 56.7 GM TUBE TP SCH ×2 (09:00→21:30)
[2019-05-20] MEDS: NYSTATIN/TRIAMCIN 15 GM CREAM 15 GM TUBE TP SCH ×2 (09:00→21:29)
[2019-05-20] MEDS: CADEXOMER IODINE 40 GM TUBE TP SCH ×2 (09:00→21:29)
[2019-05-20] MEDS: Z GUARD REMEDY 4 OZ OINT TP SCH ×2 (09:00→21:29)
[2019-05-20] MEDS: POTASSIUM CHLORIDE 20MEQ TAB GT SCH (09:00)
[2019-05-20] MEDS: VIT B CMPLX 3/FA/VIT C/BIOTIN 1 TAB TABLET GT SCH (09:00)
[2019-05-20] MEDS: DOXYCYCLINE HYCLATE (100 MG) 100 MG TABLET GT SCH ×2 (09:00→21:29)
[2019-05-20] MEDS: DORZOLAMIDE OPTH 2% 10 ML BOTTLE EACHEYE SCH ×3 (09:00→17:54)
[2019-05-20] MEDS: FINASTERIDE (5 MG) 5 MG TABLET GT SCH (09:00)
[2019-05-20] MEDS: MUPIROCIN OINT 2% 22 GM TUBE SCH ×2 (09:00→21:29)
[2019-05-20] MEDS: HYDROGEN PEROXIDE 480 ML BOTTLE TP SCH ×2 (09:00→21:00)
--- NOTE | 2019-05-20 16:15 | NUR ---
Called [facility] and spoke with Angela to confirm pt's dialysis schedule. Informed Angela that pt is back in Subacute. She said pt's dialysis schedule remains the same.
--- NOTE | 2019-05-20 16:26 | NUR ---
CHANI contacted [employer] [facility] [employer] line [phone] and spoke to agent, Crystal to schedule roundtrip transportation services from [facility] to Renal Dialysis for ,Sat indefinitely starting 05/21/19 clam picker at 5:45 am for chair time of 6:15-9:45 am and and drop off to [facility] at 10:15 am. Crystal was agreeable to plan, Reference # [id number]. Crystal set up transportation services with [facility]. CHANI informed charge NurseDebra.
[2019-05-20] MEDS: INSULIN GLARGINE, 100 UNIT/ML CARTRIDGE SQ SCH (21:30)
[2019-05-20] MEDS: TAMSULOSIN 0.4 MG CAP.SR.24H GT SCH (21:30)
[2019-05-20] MEDS: LATANOPROST EYE DROP 0.005% 2.5 ML BOTTLE EACHEYE SCH (21:30)
[2019-05-20] MEDS: ATORVASTATIN 10 MG TABLET GT SCH (21:30)
[2019-05-20] MEDS: NEPRO 1,000 ML BOTTLE GT PRN (21:39)
[2019-05-21 01:00] VITALS: BP 128/56
[2019-05-21] MEDS: IPRATROPIUM NEB FS 0.5 MG/2.5 ML AMPUL.NEB IH SCH ×4 (01:45→19:23)
[2019-05-21] MEDS: ALBUTEROL FS 2.5 MG/0.5 ML VIAL.NEB NEB SCH ×4 (01:45→19:23)
[2019-05-21] MEDS: REGLAN GT SCH ×3 (05:07→21:38)
[2019-05-21] MEDS: LACOSAMIDE ORAL SOLN 50 MG/5 ML UDC GT SCH ×2 (05:07→17:42)
[2019-05-21] MEDS: OMEPRAZOLE 20 MG CAPSULE.DR GT SCH (05:07)
[2019-05-21] MEDS: SIMETHICONE SUSP 40 MG/0.6 ML BOTTLE GT SCH ×4 (05:07→23:30)
[2019-05-21] MEDS: BLOOD SUGAR DIAGNOSTIC 1 EACH STRIP IN SCH ×4 (05:07→23:30)
[2019-05-21] MEDS: PROSTAT (PYXIS) 30 ML UDC GT SCH ×3 (05:07→21:38)
[2019-05-21] MEDS: INSULIN REGULAR, HUMAN 100 UNIT/ML 10 ML VIAL SQ SCH ×4 (05:08→23:32)
[2019-05-21 06:42] VITALS: BP 104/52
[2019-05-21] MEDS: NYSTATIN/TRIAMCIN 15 GM CREAM 15 GM TUBE TP SCH ×2 (09:00→22:20)
[2019-05-21] MEDS: MUPIROCIN OINT 2% 22 GM TUBE SCH ×2 (09:00→21:39)
[2019-05-21] MEDS: VITAMINS A AND D 56.7 GM TUBE TP SCH ×2 (09:00→22:20)
[2019-05-21] MEDS: HYDROGEL DRESSING 90 GM TUBE TP SCH ×2 (09:00→22:20)
[2019-05-21] MEDS: Z GUARD REMEDY 4 OZ OINT TP SCH ×2 (09:00→22:20)
[2019-05-21] MEDS: CADEXOMER IODINE 40 GM TUBE TP SCH ×2 (09:00→22:20)
[2019-05-21] MEDS: HYDROGEN PEROXIDE 480 ML BOTTLE TP SCH ×2 (09:00→21:00)
[2019-05-21] MEDS: PETROLATUM,WHITE PACKET 5 GM PACKET TP SCH ×3 (09:00→22:20)
--- NOTE | 2019-05-21 09:42 | NUR ---
CHANI called [employer] and spoke to Al to request that [facility] provide roundtrip transportation services for resident to [facility] instead of [facility] because they have been the providers in the past and are familiar with the patient. Per Al, he has confirmed with [facility] that they are able to provide transportation. Change will happen from today forward. Trip#[id number]. CHANI informed [facility] charge nurse, Debra.
[2019-05-21] MEDS: ASCORBIC ACID 500 MG TABLET GT SCH ×2 (10:30→17:41)
[2019-05-21] MEDS: DOXYCYCLINE HYCLATE (100 MG) 100 MG TABLET GT SCH ×2 (10:30→21:39)
[2019-05-21] MEDS: VIT B CMPLX 3/FA/VIT C/BIOTIN 1 TAB TABLET GT SCH (10:30)
[2019-05-21] MEDS: LINAGLIPTIN 5 MG TABLET GT SCH (10:30)
[2019-05-21] MEDS: POTASSIUM CHLORIDE 20MEQ TAB GT SCH (10:30)
[2019-05-21] MEDS: ACETAMINOPHEN 650 MG/20 ML UDC- SA PATIENTS-PAIN ONLY GT SCH ×2 (10:30→21:39)
[2019-05-21] MEDS: FINASTERIDE (5 MG) 5 MG TABLET GT SCH (10:30)
[2019-05-21] MEDS: ACIDOPHILUS/BULGARICUS 1 EACH TAB.CHEW GT SCH (10:30)
[2019-05-21] MEDS: PREDNISONE GT SCH (10:30)
[2019-05-21] MEDS: CHLORHEXIDINE GLUCONATE 15 ML UDC MM SCH ×2 (10:30→21:39)
[2019-05-21] MEDS: DORZOLAMIDE OPTH 2% 10 ML BOTTLE EACHEYE SCH ×3 (10:30→17:41)
--- NOTE | 2019-05-21 11:52 | NUR ---
Clarified vent setting with Dr Ramírez. He ordered to resume previous vent setting orders, cool aerosol 5am to midnight and CPAP from midnight to 5am. He said to start tomorrow and do ABG 2 hours after pt has been placed on cool aerosol. Addendum: 05/21/19 at 1744 by MAGDA LOBO RN Notified son.
[2019-05-21 11:55] VITALS: BP 104/52
--- NOTE | 2019-05-21 14:59 | NUR ---
SW called family to invite them to IDT meeting taking place this Monday, May 24, 2019 from 12:30pm-1:30pm in the SA activities room. Per pt.s son, Jose Johns [phone] he will try to participate via phone conference.
--- NOTE | 2019-05-21 16:20 | NUR ---
Pt's son asked to increase Vitamin C from 500 mg to 1000 mg daily. Referred to Dr Garduno. He ordered to give Vitamin C 500 mg GT BID. Notified pt's son.
[2019-05-21 18:09] VITALS: BP 111/90
[2019-05-21 20:16] VITALS: BP 106/55
[2019-05-21 21:30] VITALS: BP 106/50
[2019-05-21] MEDS: ATORVASTATIN 10 MG TABLET GT SCH (21:39)
[2019-05-21] MEDS: LATANOPROST EYE DROP 0.005% 2.5 ML BOTTLE EACHEYE SCH (21:39)
[2019-05-21] MEDS: TAMSULOSIN 0.4 MG CAP.SR.24H GT SCH (21:39)
[2019-05-21] MEDS: INSULIN GLARGINE, 100 UNIT/ML CARTRIDGE SQ SCH (21:40)
[2019-05-22] VITALS (8 sets, daily range): BP systolic 101–114; BP diastolic 51–66
--- NOTE | 2019-05-22 | NUR ---
RN NOTES On CPAP settings as ordered, tolerating well. Will continue to monitor.
[2019-05-22] MEDS: ALBUTEROL FS 2.5 MG/0.5 ML VIAL.NEB NEB SCH ×4 (01:09→20:09)
[2019-05-22] MEDS: IPRATROPIUM NEB FS 0.5 MG/2.5 ML AMPUL.NEB IH SCH ×4 (01:09→20:09)
--- NOTE | 2019-05-22 05:00 | NUR ---
RN NOTES Placed on cool aerosol, by RT on duty, as ordered. Tolerating well, no resp distress noted. Will continue to monitor.
--- NOTE | 2019-05-22 05:25 | NUR ---
PLACED ON CPAP PER MD ORDER ON NOTED SETTING CPAP 5, PS 15, 40%. TONY WELL. NO ADVERSE REACTION. Addendum: 05/22/19 at 0526 by POPEYE BROWN RT Amended: Links added.
--- NOTE | 2019-05-22 05:28 | NUR ---
PT PLACED ON AEROSOL 28% PER MD JAMI. TONY MCKEON. NO ADVERSE REACTION. Addendum: 05/22/19 at 0529 by POPEYE BROWN RT Amended: Links added.
[2019-05-22] MEDS: OMEPRAZOLE 20 MG CAPSULE.DR GT SCH (05:46)
[2019-05-22] MEDS: SIMETHICONE SUSP 40 MG/0.6 ML BOTTLE GT SCH ×4 (05:46→23:28)
[2019-05-22] MEDS: PROSTAT (PYXIS) 30 ML UDC GT SCH ×3 (05:46→21:14)
[2019-05-22] MEDS: LACOSAMIDE ORAL SOLN 50 MG/5 ML UDC GT SCH ×2 (05:46→18:12)
[2019-05-22] MEDS: REGLAN GT SCH ×3 (05:46→21:14)
[2019-05-22] MEDS: BLOOD SUGAR DIAGNOSTIC 1 EACH STRIP IN SCH ×4 (06:09→23:28)
[2019-05-22] MEDS: INSULIN REGULAR, HUMAN 100 UNIT/ML 10 ML VIAL SQ SCH ×4 (06:10→23:29)
[2019-05-22] MEDS: NEPRO 1,000 ML BOTTLE GT PRN (06:21)
[2019-05-22] MEDS: HYDROGEN PEROXIDE 480 ML BOTTLE TP SCH ×2 (08:13→21:00)
--- NOTE | 2019-05-22 08:20 | NUR ---
RT ABG DONE PER MD ORDER. RESULTS SHOWN TO DR. AGUDELO. BRIGHT RIZZO NOTIFIED AND AWARE. DOWNTIME PROCEDURE DONE. ABG RESULTS FILED IN CHARTS AND RN AWARE.
[2019-05-22] MEDS: ACETAMINOPHEN 650 MG/20 ML UDC- SA PATIENTS-PAIN ONLY GT SCH ×2 (09:00→21:15)
[2019-05-22] MEDS: VIT B CMPLX 3/FA/VIT C/BIOTIN 1 TAB TABLET GT SCH (09:00)
[2019-05-22] MEDS: HYDROGEL DRESSING 90 GM TUBE TP SCH ×2 (09:00→22:00)
[2019-05-22] MEDS: NYSTATIN/TRIAMCIN 15 GM CREAM 15 GM TUBE TP SCH ×2 (09:00→22:00)
[2019-05-22] MEDS: ASCORBIC ACID 500 MG TABLET GT SCH ×2 (09:00→17:00)
[2019-05-22] MEDS: ACIDOPHILUS/BULGARICUS 1 EACH TAB.CHEW GT SCH (09:00)
[2019-05-22] MEDS: MUPIROCIN OINT 2% 22 GM TUBE SCH ×2 (09:00→21:15)
[2019-05-22] MEDS: PREDNISONE GT SCH (09:00)
[2019-05-22] MEDS: VITAMINS A AND D 56.7 GM TUBE TP SCH ×2 (09:00→22:00)
[2019-05-22] MEDS: POTASSIUM CHLORIDE 20MEQ TAB GT SCH (09:00)
[2019-05-22] MEDS: DORZOLAMIDE OPTH 2% 10 ML BOTTLE EACHEYE SCH ×3 (09:00→17:00)
[2019-05-22] MEDS: LINAGLIPTIN 5 MG TABLET GT SCH (09:00)
[2019-05-22] MEDS: CADEXOMER IODINE 40 GM TUBE TP SCH ×2 (09:00→22:00)
[2019-05-22] MEDS: PETROLATUM,WHITE PACKET 5 GM PACKET TP SCH ×3 (09:00→22:00)
[2019-05-22] MEDS: DOXYCYCLINE HYCLATE (100 MG) 100 MG TABLET GT SCH ×2 (09:00→21:15)
[2019-05-22] MEDS: FINASTERIDE (5 MG) 5 MG TABLET GT SCH (09:00)
[2019-05-22] MEDS: CHLORHEXIDINE GLUCONATE 15 ML UDC MM SCH ×2 (09:00→21:15)
[2019-05-22] MEDS: Z GUARD REMEDY 4 OZ OINT TP SCH ×2 (09:00→22:00)
--- NOTE | 2019-05-22 20:24 | NUR ---
RT NOTES PT RECEIVED TRACHED ON COOL AEROSOL ON FIO2 28%. NO SIGNS OF RESP DISTRESS/SOB NOTED. PT SUCTIONED. HHN TX GIVEN. AMBUBAG AND SPARE TRACH AT HEAD OF BED. WILL CONT TO MONITOR. Addendum: 05/23/19 at 0158 by BLADIMIR MEEK RT Amended: Links added.
[2019-05-22] MEDS: LATANOPROST EYE DROP 0.005% 2.5 ML BOTTLE EACHEYE SCH (21:15)
[2019-05-22] MEDS: TAMSULOSIN 0.4 MG CAP.SR.24H GT SCH (21:15)
[2019-05-22] MEDS: ATORVASTATIN 10 MG TABLET GT SCH (21:16)
[2019-05-22] MEDS: INSULIN GLARGINE, 100 UNIT/ML CARTRIDGE SQ SCH (21:44)
[2019-05-23 01:00] VITALS: BP 111/60
[2019-05-23] MEDS: ALBUTEROL FS 2.5 MG/0.5 ML VIAL.NEB NEB SCH ×4 (02:03→19:59)
[2019-05-23] MEDS: IPRATROPIUM NEB FS 0.5 MG/2.5 ML AMPUL.NEB IH SCH ×4 (02:03→19:59)
[2019-05-23] MEDS: OMEPRAZOLE 20 MG CAPSULE.DR GT SCH (05:08)
[2019-05-23] MEDS: LACOSAMIDE ORAL SOLN 50 MG/5 ML UDC GT SCH ×2 (05:08→18:01)
[2019-05-23] MEDS: SIMETHICONE SUSP 40 MG/0.6 ML BOTTLE GT SCH ×3 (05:08→18:01)
[2019-05-23] MEDS: PROSTAT (PYXIS) 30 ML UDC GT SCH ×3 (05:08→21:56)
[2019-05-23] MEDS: BLOOD SUGAR DIAGNOSTIC 1 EACH STRIP IN SCH ×3 (05:08→18:01)
[2019-05-23] MEDS: REGLAN GT SCH ×3 (05:08→21:56)
[2019-05-23] MEDS: INSULIN REGULAR, HUMAN 100 UNIT/ML 10 ML VIAL SQ SCH ×3 (05:09→18:02)
[2019-05-23 05:38] VITALS: BP 125/73
[2019-05-23] MEDS: NYSTATIN/TRIAMCIN 15 GM CREAM 15 GM TUBE TP SCH ×2 (09:00→21:58)
[2019-05-23] MEDS: CADEXOMER IODINE 40 GM TUBE TP SCH ×2 (09:00→21:58)
[2019-05-23] MEDS: POTASSIUM CHLORIDE 20MEQ TAB GT SCH (09:00)
[2019-05-23] MEDS: Z GUARD REMEDY 4 OZ OINT TP SCH ×2 (09:00→21:58)
[2019-05-23] MEDS: VIT B CMPLX 3/FA/VIT C/BIOTIN 1 TAB TABLET GT SCH (09:00)
[2019-05-23] MEDS: ACIDOPHILUS/BULGARICUS 1 EACH TAB.CHEW GT SCH (09:00)
[2019-05-23] MEDS: DORZOLAMIDE OPTH 2% 10 ML BOTTLE EACHEYE SCH ×3 (10:30→17:00)
[2019-05-23] MEDS: DOXYCYCLINE HYCLATE (100 MG) 100 MG TABLET GT SCH ×2 (10:30→21:57)
[2019-05-23] MEDS: FINASTERIDE (5 MG) 5 MG TABLET GT SCH (10:30)
[2019-05-23] MEDS: CHLORHEXIDINE GLUCONATE 15 ML UDC MM SCH ×2 (10:30→21:57)
[2019-05-23] MEDS: ASCORBIC ACID 500 MG TABLET GT SCH ×2 (10:30→17:00)
[2019-05-23] MEDS: ACETAMINOPHEN 650 MG/20 ML UDC- SA PATIENTS-PAIN ONLY GT SCH ×2 (10:30→21:57)
[2019-05-23] MEDS: LINAGLIPTIN 5 MG TABLET GT SCH (10:30)
[2019-05-23] MEDS: PREDNISONE GT SCH (10:30)
[2019-05-23] MEDS: HYDROGEN PEROXIDE 480 ML BOTTLE TP SCH ×2 (11:00→21:00)
[2019-05-23] MEDS: HYDROGEL DRESSING 90 GM TUBE TP SCH ×2 (12:00→21:57)
[2019-05-23] MEDS: MUPIROCIN OINT 2% 22 GM TUBE SCH ×2 (12:00→21:57)
[2019-05-23] MEDS: PETROLATUM,WHITE PACKET 5 GM PACKET TP SCH ×3 (12:00→21:58)
[2019-05-23] MEDS: VITAMINS A AND D 56.7 GM TUBE TP SCH ×2 (12:00→21:58)
[2019-05-23 15:56] VITALS: BP 102/71
[2019-05-23 18:34] VITALS: BP 110/68
[2019-05-23 20:38] VITALS: BP 116/63
[2019-05-23 21:05] VITALS: BP 116/63
[2019-05-23] MEDS: POVIDONE-IODINE OINT 28.4 GM TUBE TP SCH ×2 (21:57)
[2019-05-23] MEDS: TAMSULOSIN 0.4 MG CAP.SR.24H GT SCH (21:58)
[2019-05-23] MEDS: LATANOPROST EYE DROP 0.005% 2.5 ML BOTTLE EACHEYE SCH (21:58)
[2019-05-23] MEDS: ATORVASTATIN 10 MG TABLET GT SCH (21:58)
[2019-05-23] MEDS: INSULIN GLARGINE, 100 UNIT/ML CARTRIDGE SQ SCH (22:55)
--- NOTE | 2019-05-23 23:53 | NUR ---
Pt rec'd trached on Cool Aerosol 28% Fio2. Pt placed on mech vent on CPAP mode per MD orders. No resp distress or sob noted. Trach is patent and secured. Sx'd for mod amt of thick pale yellow secretions. Alarms are set and audible. Vent plugged into red outlet. Ambu bag bedside. Will continue to monitor. Addendum: 05/23/19 at 4314 by PAUL ALMARAZ RT Amended: Links added.
[2019-05-24] MEDS: BLOOD SUGAR DIAGNOSTIC 1 EACH STRIP IN SCH ×4 (00:43→17:32)
[2019-05-24] MEDS: SIMETHICONE SUSP 40 MG/0.6 ML BOTTLE GT SCH ×4 (00:43→17:32)
[2019-05-24] MEDS: INSULIN REGULAR, HUMAN 100 UNIT/ML 10 ML VIAL SQ SCH ×4 (00:44→17:42)
[2019-05-24] MEDS: ALBUTEROL FS 2.5 MG/0.5 ML VIAL.NEB NEB SCH ×4 (02:12→19:14)
[2019-05-24] MEDS: IPRATROPIUM NEB FS 0.5 MG/2.5 ML AMPUL.NEB IH SCH ×4 (02:12→19:14)
[2019-05-24] MEDS: REGLAN GT SCH ×3 (05:52→21:26)
[2019-05-24] MEDS: LACOSAMIDE ORAL SOLN 50 MG/5 ML UDC GT SCH ×2 (05:52→17:32)
[2019-05-24] MEDS: PROSTAT (PYXIS) 30 ML UDC GT SCH ×3 (05:52→21:26)
[2019-05-24] MEDS: OMEPRAZOLE 20 MG CAPSULE.DR GT SCH (05:52)
[2019-05-24 07:56] VITALS: BP 124/54
[2019-05-24] MEDS: Z GUARD REMEDY 4 OZ OINT TP SCH ×2 (09:00→21:56)
[2019-05-24] MEDS: VITAMINS A AND D 56.7 GM TUBE TP SCH ×2 (09:00→21:57)
[2019-05-24] MEDS: HYDROGEN PEROXIDE 480 ML BOTTLE TP SCH ×2 (09:00→21:58)
[2019-05-24] MEDS: CADEXOMER IODINE 40 GM TUBE TP SCH ×2 (09:00→21:56)
[2019-05-24] MEDS: FINASTERIDE (5 MG) 5 MG TABLET GT SCH (09:00)
[2019-05-24] MEDS: PETROLATUM,WHITE PACKET 5 GM PACKET TP SCH ×3 (09:00→21:56)
[2019-05-24] MEDS ORDERED: CADEXOMER IODINE 40 GM TUBE TP SCH (09:00)
[2019-05-24] MEDS: HYDROGEL DRESSING 90 GM TUBE TP SCH ×2 (09:00→21:56)
[2019-05-24] MEDS: POVIDONE-IODINE OINT 28.4 GM TUBE TP SCH ×4 (09:00→21:56)
[2019-05-24] MEDS: NYSTATIN/TRIAMCIN 15 GM CREAM 15 GM TUBE TP SCH ×2 (09:00→21:56)
[2019-05-24] MEDS: DORZOLAMIDE OPTH 2% 10 ML BOTTLE EACHEYE SCH ×3 (09:42→17:43)
[2019-05-24] MEDS: PREDNISONE GT SCH (09:42)
[2019-05-24] MEDS: MUPIROCIN OINT 2% 22 GM TUBE SCH ×2 (09:42→21:56)
[2019-05-24] MEDS: ACETAMINOPHEN 650 MG/20 ML UDC- SA PATIENTS-PAIN ONLY GT SCH ×2 (09:42→21:27)
[2019-05-24] MEDS: LINAGLIPTIN 5 MG TABLET GT SCH (09:42)
[2019-05-24] MEDS: DOXYCYCLINE HYCLATE (100 MG) 100 MG TABLET GT SCH ×2 (09:42→21:27)
[2019-05-24] MEDS: ACIDOPHILUS/BULGARICUS 1 EACH TAB.CHEW GT SCH (09:42)
[2019-05-24] MEDS: CHLORHEXIDINE GLUCONATE 15 ML UDC MM SCH ×2 (09:42→21:56)
[2019-05-24] MEDS: VIT B CMPLX 3/FA/VIT C/BIOTIN 1 TAB TABLET GT SCH (09:42)
[2019-05-24] MEDS: POTASSIUM CHLORIDE 20MEQ TAB GT SCH (09:42)
[2019-05-24] MEDS: ASCORBIC ACID 500 MG TABLET GT SCH ×2 (09:42→17:32)
--- NOTE | 2019-05-24 11:30 | NUR ---
Seen and examined by Dr. Wendy Bangura, stream control officer. She assessed wounds in bilateral feet, she said to continue treatment by applying Betadine to the area. No other order at this time.
--- NOTE | 2019-05-24 16:28 | NUR ---
INTERDISCIPLINARY TEAM PLAN OF CARE CONFERENCE was held today. The patient's responsible republican/ Son, called to inform that he could not participate via phone conference. Charge Nurse discussed previous transfer to [facility], ongoing treatment for blisters, blood sugar levels and Lantus. Dr. Ramírez and interdisciplinary team discussed the current plan of care in detail. Current orders as well as treatments and medications were reviewed. See other discipline's IDT notes for further details.
[2019-05-24 20:42] VITALS: BP 126/66
[2019-05-24] MEDS: LATANOPROST EYE DROP 0.005% 2.5 ML BOTTLE EACHEYE SCH (21:27)
[2019-05-24] MEDS: TAMSULOSIN 0.4 MG CAP.SR.24H GT SCH (21:27)
[2019-05-24] MEDS: ATORVASTATIN 10 MG TABLET GT SCH (21:27)
[2019-05-24] MEDS: INSULIN GLARGINE, 100 UNIT/ML CARTRIDGE SQ SCH (22:04)
--- NOTE | 2019-05-24 22:18 | NUR ---
Receive pt. stable on CA 28%, secretions are copious and blood thinge, will contine to monitor patient. Addendum: 05/24/19 at 2220 by TORSTEN STARKEY RT Amended: Links added.
[2019-05-25] MEDS: BLOOD SUGAR DIAGNOSTIC 1 EACH STRIP IN SCH ×5 (00:02→23:48)
[2019-05-25] MEDS: SIMETHICONE SUSP 40 MG/0.6 ML BOTTLE GT SCH ×5 (00:02→23:48)
[2019-05-25] MEDS: INSULIN REGULAR, HUMAN 100 UNIT/ML 10 ML VIAL SQ SCH ×5 (00:04→23:49)
[2019-05-25] MEDS: IPRATROPIUM NEB FS 0.5 MG/2.5 ML AMPUL.NEB IH SCH ×4 (00:40→18:57)
[2019-05-25] MEDS: ALBUTEROL FS 2.5 MG/0.5 ML VIAL.NEB NEB SCH ×4 (00:40→18:57)
[2019-05-25] MEDS: PROSTAT (PYXIS) 30 ML UDC GT SCH ×3 (05:17→21:21)
[2019-05-25] MEDS: REGLAN GT SCH ×3 (05:17→21:21)
[2019-05-25] MEDS: LACOSAMIDE ORAL SOLN 50 MG/5 ML UDC GT SCH ×2 (05:18→17:59)
[2019-05-25] MEDS: OMEPRAZOLE 20 MG CAPSULE.DR GT SCH (05:18)
--- NOTE | 2019-05-25 05:58 | NUR ---
Pt went out for dialysis via [facility] transport. stable vital signs. calm and comfortable. Trach secured and intact. on cool aeresol at 28% fio2. no s/s of respiratory distress noted. All emergency equipment/ambu-bag and back up trach taken. Jeremiah cath on left chest intact. dressing clean and dry.
[2019-05-25] MEDS: LINAGLIPTIN 5 MG TABLET GT SCH (09:00)
[2019-05-25] MEDS: HYDROGEN PEROXIDE 480 ML BOTTLE TP SCH ×2 (09:00→21:22)
[2019-05-25] MEDS: DOXYCYCLINE HYCLATE (100 MG) 100 MG TABLET GT SCH ×2 (09:00→21:21)
[2019-05-25] MEDS: VIT B CMPLX 3/FA/VIT C/BIOTIN 1 TAB TABLET GT SCH (09:00)
[2019-05-25] MEDS: ACIDOPHILUS/BULGARICUS 1 EACH TAB.CHEW GT SCH (09:00)
[2019-05-25] MEDS: DORZOLAMIDE OPTH 2% 10 ML BOTTLE EACHEYE SCH ×3 (09:00→17:59)
[2019-05-25] MEDS: PREDNISONE GT SCH (09:00)
[2019-05-25] MEDS: ASCORBIC ACID 500 MG TABLET GT SCH ×2 (09:00→17:59)
[2019-05-25] MEDS: FINASTERIDE (5 MG) 5 MG TABLET GT SCH (09:00)
[2019-05-25] MEDS: POTASSIUM CHLORIDE 20MEQ TAB GT SCH (09:00)
--- NOTE | 2019-05-25 11:00 | NUR ---
Patient returned from Hemodialysis as ordered with two EMT's and one RT. Transportation ambulance with [facility]. MRSA isolation maintained. Right upper chest hemodialysis catheter with clean dressing. GT in place patent no residual. Total care provided. All needs met and attended. Kept clean and comfortable. No acute distress noted.
[2019-05-25 11:30] VITALS: BP 139/77
[2019-05-25] MEDS: CHLORHEXIDINE GLUCONATE 15 ML UDC MM SCH ×2 (12:00→21:21)
[2019-05-25] MEDS: ACETAMINOPHEN 650 MG/20 ML UDC- SA PATIENTS-PAIN ONLY GT SCH ×2 (16:00→21:21)
[2019-05-25] MEDS: MUPIROCIN OINT 2% 22 GM TUBE SCH ×2 (16:00→21:22)
[2019-05-25] MEDS: NEPRO 1,000 ML BOTTLE GT PRN (16:19)
[2019-05-25] MEDS: POVIDONE-IODINE OINT 28.4 GM TUBE TP SCH ×4 (17:00→21:22)
[2019-05-25] MEDS: Z GUARD REMEDY 4 OZ OINT TP SCH ×2 (17:00→21:22)
[2019-05-25] MEDS: HYDROGEL DRESSING 90 GM TUBE TP SCH ×2 (17:00→21:22)
[2019-05-25] MEDS: BETADINE 5% CREAM TP SCH ×2 (17:00→21:22)
[2019-05-25] MEDS: VITAMINS A AND D 56.7 GM TUBE TP SCH ×2 (17:00→21:22)
[2019-05-25] MEDS: NYSTATIN/TRIAMCIN 15 GM CREAM 15 GM TUBE TP SCH ×2 (17:00→21:22)
[2019-05-25] MEDS: PETROLATUM,WHITE PACKET 5 GM PACKET TP SCH ×3 (17:00→21:00)
[2019-05-25 18:00] VITALS: BP 142/93
--- NOTE | 2019-05-25 19:30 | NUR ---
Informed Dr. Johns what was discussed in the IDT meeting yesterday. He was also made aware that per Dr. Ramírez that steroid therapy will take months since he would like to find out. Informed resident's son that patient's blisters are drying up and turning pink. Current treatment and steroid is working. Appreciated the update.
[2019-05-25 20:15] VITALS: BP 95/69
[2019-05-25 21:00] VITALS: BP 135/71
[2019-05-25] MEDS: LATANOPROST EYE DROP 0.005% 2.5 ML BOTTLE EACHEYE SCH (21:22)
[2019-05-25] MEDS: TAMSULOSIN 0.4 MG CAP.SR.24H GT SCH (21:22)
[2019-05-25] MEDS: ATORVASTATIN 10 MG TABLET GT SCH (21:22)
[2019-05-25] MEDS: INSULIN GLARGINE, 100 UNIT/ML CARTRIDGE SQ SCH (21:23)
[2019-05-26] VITALS (7 sets, daily range): BP systolic 120–154; BP diastolic 64–91
[2019-05-26] MEDS: IPRATROPIUM NEB FS 0.5 MG/2.5 ML AMPUL.NEB IH SCH ×4 (01:15→19:55)
[2019-05-26] MEDS: ALBUTEROL FS 2.5 MG/0.5 ML VIAL.NEB NEB SCH ×4 (01:15→19:56)
[2019-05-26] MEDS: REGLAN GT SCH ×3 (05:25→21:06)
[2019-05-26] MEDS: SIMETHICONE SUSP 40 MG/0.6 ML BOTTLE GT SCH ×3 (05:25→18:02)
[2019-05-26] MEDS: OMEPRAZOLE 20 MG CAPSULE.DR GT SCH (05:25)
[2019-05-26] MEDS: PROSTAT (PYXIS) 30 ML UDC GT SCH ×3 (05:25→21:06)
[2019-05-26] MEDS: LACOSAMIDE ORAL SOLN 50 MG/5 ML UDC GT SCH ×2 (05:28→18:02)
[2019-05-26] MEDS: BLOOD SUGAR DIAGNOSTIC 1 EACH STRIP IN SCH ×3 (06:08→18:02)
[2019-05-26] MEDS: INSULIN REGULAR, HUMAN 100 UNIT/ML 10 ML VIAL SQ SCH ×3 (06:09→18:03)
[2019-05-26] MEDS: HYDROGEN PEROXIDE 480 ML BOTTLE TP SCH ×2 (09:25→21:12)
[2019-05-26] MEDS: PREDNISONE GT SCH (09:35)
[2019-05-26] MEDS: ACETAMINOPHEN 650 MG/20 ML UDC- SA PATIENTS-PAIN ONLY GT SCH ×2 (09:35→21:06)
[2019-05-26] MEDS: FINASTERIDE (5 MG) 5 MG TABLET GT SCH (09:35)
[2019-05-26] MEDS: ACIDOPHILUS/BULGARICUS 1 EACH TAB.CHEW GT SCH (09:35)
[2019-05-26] MEDS: LINAGLIPTIN 5 MG TABLET GT SCH (09:35)
[2019-05-26] MEDS: DOXYCYCLINE HYCLATE (100 MG) 100 MG TABLET GT SCH ×2 (09:35→21:08)
[2019-05-26] MEDS: ASCORBIC ACID 500 MG TABLET GT SCH ×2 (09:35→17:00)
[2019-05-26] MEDS: DORZOLAMIDE OPTH 2% 10 ML BOTTLE EACHEYE SCH ×3 (09:35→17:00)
[2019-05-26] MEDS: CHLORHEXIDINE GLUCONATE 15 ML UDC MM SCH ×2 (09:35→21:08)
[2019-05-26] MEDS: VIT B CMPLX 3/FA/VIT C/BIOTIN 1 TAB TABLET GT SCH (09:35)
[2019-05-26] MEDS: POTASSIUM CHLORIDE 20MEQ TAB GT SCH (09:35)
[2019-05-26] MEDS: POVIDONE-IODINE OINT 28.4 GM TUBE TP SCH ×4 (09:36→21:08)
[2019-05-26] MEDS: MUPIROCIN OINT 2% 22 GM TUBE SCH ×2 (09:36→21:08)
[2019-05-26] MEDS: HYDROGEL DRESSING 90 GM TUBE TP SCH ×2 (09:37→21:09)
[2019-05-26] MEDS: NYSTATIN/TRIAMCIN 15 GM CREAM 15 GM TUBE TP SCH ×2 (09:37→21:09)
[2019-05-26] MEDS: BETADINE 5% CREAM TP SCH ×2 (09:37→21:09)
[2019-05-26] MEDS: Z GUARD REMEDY 4 OZ OINT TP SCH ×2 (09:38→21:09)
[2019-05-26] MEDS: PETROLATUM,WHITE PACKET 5 GM PACKET TP SCH ×3 (09:44→21:10)
[2019-05-26] MEDS: VITAMINS A AND D 56.7 GM TUBE TP SCH ×2 (09:44→21:10)
[2019-05-26] MEDS: NEPRO 1,000 ML BOTTLE GT PRN (16:53)
--- NOTE | 2019-05-26 18:00 | NUR ---
Resident noted with labored breathing, abdominal breathing. Resident was suctioned, positioned on high back rest and put back to mechanical ventilator by RT. Son at bedside. Will continue to monitor.
[2019-05-26] MEDS: LATANOPROST EYE DROP 0.005% 2.5 ML BOTTLE EACHEYE SCH (21:11)
[2019-05-26] MEDS: TAMSULOSIN 0.4 MG CAP.SR.24H GT SCH (21:14)
[2019-05-26] MEDS: ATORVASTATIN 10 MG TABLET GT SCH (21:14)
[2019-05-26] MEDS: INSULIN GLARGINE, 100 UNIT/ML CARTRIDGE SQ SCH (21:46)
[2019-05-27] VITALS (8 sets, daily range): BP systolic 129–142; BP diastolic 50–88
[2019-05-27] MEDS: SIMETHICONE SUSP 40 MG/0.6 ML BOTTLE GT SCH ×4 (00:30→18:36)
[2019-05-27] MEDS: BLOOD SUGAR DIAGNOSTIC 1 EACH STRIP IN SCH ×4 (00:30→18:36)
[2019-05-27] MEDS: INSULIN REGULAR, HUMAN 100 UNIT/ML 10 ML VIAL SQ SCH ×4 (00:31→18:37)
[2019-05-27] MEDS: IPRATROPIUM NEB FS 0.5 MG/2.5 ML AMPUL.NEB IH SCH ×4 (01:40→19:36)
[2019-05-27] MEDS: ALBUTEROL FS 2.5 MG/0.5 ML VIAL.NEB NEB SCH ×4 (01:41→19:36)
--- NOTE | 2019-05-27 03:55 | NUR ---
RT KEPT PATIENT ON CONTINUOUS VENT SUPPORT THROUGHOUT THE SHIFT.PATIENT HAD EPISODE OF SOB AT AROUND 1800 YESTERDAY. RESIDENT SON AWARE, CHARGE NURSE WAS NOTIFIED.PATIENT STABLE AND TOLERATED CURRENT VENT SETTINGS. WILL CONTINUE TO MONITOR. Addendum: 05/27/19 at 0401 by ABEBA SUAREZ RT Amended: Links added.
[2019-05-27] MEDS: REGLAN GT SCH ×3 (05:33→21:02)
[2019-05-27] MEDS: PROSTAT (PYXIS) 30 ML UDC GT SCH ×3 (05:34→21:04)
[2019-05-27] MEDS: OMEPRAZOLE 20 MG CAPSULE.DR GT SCH (05:34)
[2019-05-27] MEDS: LACOSAMIDE ORAL SOLN 50 MG/5 ML UDC GT SCH ×2 (05:35→18:36)
[2019-05-27] MEDS: DORZOLAMIDE OPTH 2% 10 ML BOTTLE EACHEYE SCH ×3 (08:39→17:00)
[2019-05-27] MEDS: ACIDOPHILUS/BULGARICUS 1 EACH TAB.CHEW GT SCH (08:39)
[2019-05-27] MEDS: PREDNISONE GT SCH (08:39)
[2019-05-27] MEDS: VIT B CMPLX 3/FA/VIT C/BIOTIN 1 TAB TABLET GT SCH (08:40)
[2019-05-27] MEDS: DOXYCYCLINE HYCLATE (100 MG) 100 MG TABLET GT SCH ×2 (08:41→21:06)
[2019-05-27] MEDS: FINASTERIDE (5 MG) 5 MG TABLET GT SCH (08:41)
[2019-05-27] MEDS: CHLORHEXIDINE GLUCONATE 15 ML UDC MM SCH ×2 (08:41→21:06)
[2019-05-27] MEDS: ACETAMINOPHEN 650 MG/20 ML UDC- SA PATIENTS-PAIN ONLY GT SCH ×2 (08:41→21:06)
[2019-05-27] MEDS: ASCORBIC ACID 500 MG TABLET GT SCH ×2 (08:41→17:00)
[2019-05-27] MEDS: POTASSIUM CHLORIDE 20MEQ TAB GT SCH (08:41)
[2019-05-27] MEDS: LINAGLIPTIN 5 MG TABLET GT SCH (08:41)
[2019-05-27] MEDS: HYDROGEN PEROXIDE 480 ML BOTTLE TP SCH ×2 (09:00→21:00)
[2019-05-27] MEDS: BETADINE 5% CREAM TP SCH ×2 (09:41→21:06)
[2019-05-27] MEDS: HYDROGEL DRESSING 90 GM TUBE TP SCH ×2 (09:41→21:06)
[2019-05-27] MEDS: POVIDONE-IODINE OINT 28.4 GM TUBE TP SCH ×4 (09:41→21:06)
[2019-05-27] MEDS: VITAMINS A AND D 56.7 GM TUBE TP SCH ×2 (09:41→21:07)
[2019-05-27] MEDS: Z GUARD REMEDY 4 OZ OINT TP SCH ×2 (09:41→21:06)
[2019-05-27] MEDS: PETROLATUM,WHITE PACKET 5 GM PACKET TP SCH ×3 (09:41→21:07)
[2019-05-27] MEDS: NYSTATIN/TRIAMCIN 15 GM CREAM 15 GM TUBE TP SCH ×2 (09:41→21:06)
[2019-05-27] MEDS: NEPRO 1,000 ML BOTTLE GT PRN (15:25)
[2019-05-27] MEDS: ATORVASTATIN 10 MG TABLET GT SCH (21:07)
[2019-05-27] MEDS: LATANOPROST EYE DROP 0.005% 2.5 ML BOTTLE EACHEYE SCH (21:07)
[2019-05-27] MEDS: TAMSULOSIN 0.4 MG CAP.SR.24H GT SCH (21:07)
[2019-05-27] MEDS: INSULIN GLARGINE, 100 UNIT/ML CARTRIDGE SQ SCH (21:41)
[2019-05-28] VITALS (7 sets, daily range): BP systolic 96–137; BP diastolic 64–84
[2019-05-28] MEDS: SIMETHICONE SUSP 40 MG/0.6 ML BOTTLE GT SCH ×4 (00:28→17:09)
[2019-05-28] MEDS: BLOOD SUGAR DIAGNOSTIC 1 EACH STRIP IN SCH ×4 (00:28→17:09)
[2019-05-28] MEDS: INSULIN REGULAR, HUMAN 100 UNIT/ML 10 ML VIAL SQ SCH ×4 (00:30→17:10)
[2019-05-28] MEDS: IPRATROPIUM NEB FS 0.5 MG/2.5 ML AMPUL.NEB IH SCH ×4 (02:33→19:26)
[2019-05-28] MEDS: ALBUTEROL FS 2.5 MG/0.5 ML VIAL.NEB NEB SCH ×4 (02:33→19:26)
--- NOTE | 2019-05-28 05:01 | NUR ---
pt rec'd trached on cool aerosol 28% fio2. pt placed on mech vent on CPAP mode @ midnight per md orders. no resp distress or sob noted. trach is patent and secured. sx'd for mod amt of pale yellow secretions. alarms are set and audible. vent plugged into red outlet. ambu bag bedside. will continue to monitor. Addendum: 05/28/19 at 0502 by PAUL ALMARAZ RT Amended: Links added.
[2019-05-28] MEDS: PROSTAT (PYXIS) 30 ML UDC GT SCH ×3 (05:03→20:45)
[2019-05-28] MEDS: REGLAN GT SCH ×3 (05:03→20:45)
[2019-05-28] MEDS: OMEPRAZOLE 20 MG CAPSULE.DR GT SCH (05:04)
[2019-05-28] MEDS: LACOSAMIDE ORAL SOLN 50 MG/5 ML UDC GT SCH ×2 (05:04→17:09)
--- NOTE | 2019-05-28 08:40 | NUR ---
CHANI called and spoke with pt.s Son, Dr. Johns, regarding family support group taking place 05/29/19 from 11am-12pm. Per Dr. Johns, he will try to make it.
[2019-05-28] MEDS: LINAGLIPTIN 5 MG TABLET GT SCH (09:00)
[2019-05-28] MEDS: ACIDOPHILUS/BULGARICUS 1 EACH TAB.CHEW GT SCH (09:00)
[2019-05-28] MEDS: DORZOLAMIDE OPTH 2% 10 ML BOTTLE EACHEYE SCH ×3 (09:00→17:09)
[2019-05-28] MEDS: CHLORHEXIDINE GLUCONATE 15 ML UDC MM SCH ×2 (09:00→20:46)
[2019-05-28] MEDS: ASCORBIC ACID 500 MG TABLET GT SCH ×2 (09:00→17:09)
[2019-05-28] MEDS: FINASTERIDE (5 MG) 5 MG TABLET GT SCH (09:00)
[2019-05-28] MEDS: POTASSIUM CHLORIDE 20MEQ TAB GT SCH (09:00)
[2019-05-28] MEDS: PREDNISONE GT SCH (09:00)
[2019-05-28] MEDS: VIT B CMPLX 3/FA/VIT C/BIOTIN 1 TAB TABLET GT SCH (09:00)
[2019-05-28] MEDS: HYDROGEN PEROXIDE 480 ML BOTTLE TP SCH ×2 (09:27→21:00)
--- NOTE | 2019-05-28 11:10 | NUR ---
Resident returned from S/P hemodialysis treatment, no s/s of any complications noted. Pt afebrile. LT upper chest HD site intact, no bleeding noted. Covered with dressing, clean and dry. No respiratory distress noted. Kept comfortable in bed.
[2019-05-28] MEDS: DOXYCYCLINE HYCLATE (100 MG) 100 MG TABLET GT SCH ×2 (11:17→20:46)
[2019-05-28] MEDS: ACETAMINOPHEN 650 MG/20 ML UDC- SA PATIENTS-PAIN ONLY GT SCH ×2 (11:17→20:45)
[2019-05-28] MEDS: BETADINE 5% CREAM TP SCH ×2 (11:50→20:47)
[2019-05-28] MEDS: Z GUARD REMEDY 4 OZ OINT TP SCH ×2 (11:50→20:47)
[2019-05-28] MEDS: NYSTATIN/TRIAMCIN 15 GM CREAM 15 GM TUBE TP SCH ×2 (11:50→20:47)
[2019-05-28] MEDS: POVIDONE-IODINE OINT 28.4 GM TUBE TP SCH ×4 (11:50→20:47)
[2019-05-28] MEDS: HYDROGEL DRESSING 90 GM TUBE TP SCH ×2 (11:50→20:47)
[2019-05-28] MEDS: VITAMINS A AND D 56.7 GM TUBE TP SCH ×2 (11:50→20:47)
[2019-05-28] MEDS: PETROLATUM,WHITE PACKET 5 GM PACKET TP SCH ×3 (11:50→20:47)
[2019-05-28] MEDS: ATORVASTATIN 10 MG TABLET GT SCH (21:27)
[2019-05-28] MEDS: TAMSULOSIN 0.4 MG CAP.SR.24H GT SCH (21:27)
[2019-05-28] MEDS: INSULIN GLARGINE, 100 UNIT/ML CARTRIDGE SQ SCH (21:27)
[2019-05-28] MEDS: LATANOPROST EYE DROP 0.005% 2.5 ML BOTTLE EACHEYE SCH (21:27)
[2019-05-29] VITALS (7 sets, daily range): BP systolic 113–128; BP diastolic 60–77
[2019-05-29] MEDS: SIMETHICONE SUSP 40 MG/0.6 ML BOTTLE GT SCH ×5 (00:43→23:56)
[2019-05-29] MEDS: BLOOD SUGAR DIAGNOSTIC 1 EACH STRIP IN SCH ×5 (00:43→23:56)
[2019-05-29] MEDS: INSULIN REGULAR, HUMAN 100 UNIT/ML 10 ML VIAL SQ SCH ×5 (00:45→23:57)
[2019-05-29] MEDS: IPRATROPIUM NEB FS 0.5 MG/2.5 ML AMPUL.NEB IH SCH ×4 (02:02→20:25)
[2019-05-29] MEDS: ALBUTEROL FS 2.5 MG/0.5 ML VIAL.NEB NEB SCH ×4 (02:02→20:25)
[2019-05-29] MEDS: PROSTAT (PYXIS) 30 ML UDC GT SCH ×3 (05:34→21:26)
[2019-05-29] MEDS: REGLAN GT SCH ×3 (05:34→21:26)
[2019-05-29] MEDS: LACOSAMIDE ORAL SOLN 50 MG/5 ML UDC GT SCH ×2 (05:34→17:26)
[2019-05-29] MEDS: OMEPRAZOLE 20 MG CAPSULE.DR GT SCH (05:34)
[2019-05-29] MEDS: NEPRO 1,000 ML BOTTLE GT PRN (05:37)
[2019-05-29] MEDS: DORZOLAMIDE OPTH 2% 10 ML BOTTLE EACHEYE SCH ×3 (09:15→17:26)
[2019-05-29] MEDS: ACIDOPHILUS/BULGARICUS 1 EACH TAB.CHEW GT SCH (09:18)
[2019-05-29] MEDS: PREDNISONE GT SCH (09:18)
[2019-05-29] MEDS: POTASSIUM CHLORIDE 20MEQ TAB GT SCH (09:19)
[2019-05-29] MEDS: FINASTERIDE (5 MG) 5 MG TABLET GT SCH (09:19)
[2019-05-29] MEDS: LINAGLIPTIN 5 MG TABLET GT SCH (09:19)
[2019-05-29] MEDS: DOXYCYCLINE HYCLATE (100 MG) 100 MG TABLET GT SCH ×2 (09:20→21:27)
[2019-05-29] MEDS: ACETAMINOPHEN 650 MG/20 ML UDC- SA PATIENTS-PAIN ONLY GT SCH ×2 (09:20→21:27)
[2019-05-29] MEDS: ASCORBIC ACID 500 MG TABLET GT SCH ×2 (09:20→17:26)
[2019-05-29] MEDS: CHLORHEXIDINE GLUCONATE 15 ML UDC MM SCH ×2 (09:21→21:27)
[2019-05-29] MEDS: VIT B CMPLX 3/FA/VIT C/BIOTIN 1 TAB TABLET GT SCH (09:25)
[2019-05-29] MEDS: HYDROGEN PEROXIDE 480 ML BOTTLE TP SCH ×2 (09:48→21:00)
[2019-05-29] MEDS: PETROLATUM,WHITE PACKET 5 GM PACKET TP SCH ×3 (10:00→21:50)
[2019-05-29] MEDS: NYSTATIN/TRIAMCIN 15 GM CREAM 15 GM TUBE TP SCH ×2 (10:00→21:50)
[2019-05-29] MEDS: BETADINE 5% CREAM TP SCH ×2 (10:00→21:50)
[2019-05-29] MEDS: Z GUARD REMEDY 4 OZ OINT TP SCH ×2 (10:00→21:50)
[2019-05-29] MEDS: HYDROGEL DRESSING 90 GM TUBE TP SCH ×2 (10:00→21:55)
[2019-05-29] MEDS: POVIDONE-IODINE OINT 28.4 GM TUBE TP SCH ×4 (10:00→21:55)
[2019-05-29] MEDS: VITAMINS A AND D 56.7 GM TUBE TP SCH ×2 (10:00→21:50)
--- NOTE | 2019-05-29 16:30 | NUR ---
May Family Support Group Note Goal: Residents family will attend family support group held Wednesday, May 29, 2019 from 11 am-12 pm. Intervention: SW facilitated family support group and started off with icebreaker consisting of acknowledgements and listing an adjective that described how the family felt at the moment. SW explored how family destresses and educated family on a range of additional de-stressors. SW explored the familys support systems and how they are shown support. SW provided validation, used reflective listening. SW acknowledged Dr. Johns for making time to visit patient almost daily and attend support group. Response: The patients Son, Dr. Ruizy was in attendance and is Turkish Speaking only. Dr. Johns was open to listening to other familys expressing their hardships. Dr. Johns expressed that he felt anxious but hopeful at the moment. Dr. Johns expressed that her support group consists of his aunt, who pray for the pt. and often call Dr. Johns to provide encouragement. Per Dr. Johns, he discusses preoccupations surrounding the pt.s health with a friends and colleague when feeling stressed. Plan: Family was invited to attend next family support Group held July 03, 2019, 11 am-12 pm.
[2019-05-29] MEDS: LATANOPROST EYE DROP 0.005% 2.5 ML BOTTLE EACHEYE SCH (21:27)
[2019-05-29] MEDS: ATORVASTATIN 10 MG TABLET GT SCH (21:27)
[2019-05-29] MEDS: TAMSULOSIN 0.4 MG CAP.SR.24H GT SCH (21:27)
[2019-05-29] MEDS: INSULIN GLARGINE, 100 UNIT/ML CARTRIDGE SQ SCH (22:12)
[2019-05-30] VITALS (7 sets, daily range): BP systolic 112–143; BP diastolic 37–85
[2019-05-30] MEDS: ALBUTEROL FS 2.5 MG/0.5 ML VIAL.NEB NEB SCH ×4 (02:19→20:23)
[2019-05-30] MEDS: IPRATROPIUM NEB FS 0.5 MG/2.5 ML AMPUL.NEB IH SCH ×4 (02:19→20:23)
--- NOTE | 2019-05-30 02:45 | NUR ---
pt rec'd trached on cool aerosol 28% FIO2. Pt placed on mech vent on CPAP mode @ midnight per md orders. no resp distress or sob noted. trach is patent and secured. sx'd for small amt of pale yellow secretions. alarms are set and audible. vent plugged into red outlet. ambu bag bedside. will continue to monitor. Addendum: 05/30/19 at 0246 by PAUL ALMARAZ RT Amended: Links added.
[2019-05-30] MEDS: LACOSAMIDE ORAL SOLN 50 MG/5 ML UDC GT SCH ×2 (05:14→17:39)
[2019-05-30] MEDS: REGLAN GT SCH ×3 (05:14→20:55)
[2019-05-30] MEDS: BLOOD SUGAR DIAGNOSTIC 1 EACH STRIP IN SCH ×4 (05:14→23:30)
[2019-05-30] MEDS: PROSTAT (PYXIS) 30 ML UDC GT SCH ×3 (05:14→20:55)
[2019-05-30] MEDS: OMEPRAZOLE 20 MG CAPSULE.DR GT SCH (05:14)
[2019-05-30] MEDS: INSULIN REGULAR, HUMAN 100 UNIT/ML 10 ML VIAL SQ SCH ×4 (05:14→23:31)
[2019-05-30] MEDS: SIMETHICONE SUSP 40 MG/0.6 ML BOTTLE GT SCH ×4 (05:14→23:30)
[2019-05-30] MEDS: HYDROGEN PEROXIDE 480 ML BOTTLE TP SCH ×2 (09:00→21:00)
[2019-05-30] MEDS: HYDROGEL DRESSING 90 GM TUBE TP SCH ×2 (10:15→21:35)
[2019-05-30] MEDS: LINAGLIPTIN 5 MG TABLET GT SCH (10:45)
[2019-05-30] MEDS: POTASSIUM CHLORIDE 20MEQ TAB GT SCH (10:45)
[2019-05-30] MEDS: PREDNISONE GT SCH (10:45)
[2019-05-30] MEDS: ACIDOPHILUS/BULGARICUS 1 EACH TAB.CHEW GT SCH (10:45)
[2019-05-30] MEDS: FINASTERIDE (5 MG) 5 MG TABLET GT SCH (10:45)
[2019-05-30] MEDS: ASCORBIC ACID 500 MG TABLET GT SCH ×2 (10:45→17:39)
[2019-05-30] MEDS: ACETAMINOPHEN 650 MG/20 ML UDC- SA PATIENTS-PAIN ONLY GT SCH ×2 (10:45→20:55)
[2019-05-30] MEDS: DOXYCYCLINE HYCLATE (100 MG) 100 MG TABLET GT SCH ×2 (10:45→20:55)
[2019-05-30] MEDS: DORZOLAMIDE OPTH 2% 10 ML BOTTLE EACHEYE SCH ×3 (10:45→17:40)
[2019-05-30] MEDS: CHLORHEXIDINE GLUCONATE 15 ML UDC MM SCH ×2 (10:45→20:55)
[2019-05-30] MEDS: VIT B CMPLX 3/FA/VIT C/BIOTIN 1 TAB TABLET GT SCH (10:45)
[2019-05-30] MEDS: NEPRO 1,000 ML BOTTLE GT PRN (11:10)
[2019-05-30] MEDS: PETROLATUM,WHITE PACKET 5 GM PACKET TP SCH ×3 (11:15→21:36)
[2019-05-30] MEDS: POVIDONE-IODINE OINT 28.4 GM TUBE TP SCH ×4 (11:15→21:38)
[2019-05-30] MEDS: BETADINE 5% CREAM TP SCH ×2 (11:15→21:35)
[2019-05-30] MEDS: Z GUARD REMEDY 4 OZ OINT TP SCH ×2 (11:15→21:35)
[2019-05-30] MEDS: VITAMINS A AND D 56.7 GM TUBE TP SCH ×2 (11:15→21:36)
--- NOTE | 2019-05-30 19:15 | NUR ---
Seen and examined by BRANDO VALENTINE.
--- NOTE | 2019-05-30 20:36 | NUR ---
PT RCVD TRACH ON COOL AEROSOL 28% 5L. BREATHING TX GIVEN AND NO ADVERSE REACTION NOTED. SX DONE PRN. NO RESPIRATORY DISTRESS NOTED AT THIS TIME. AMBU BAG AT BEDSIDE. WILL CONTINUE TO MONITOR
[2019-05-30] MEDS: ATORVASTATIN 10 MG TABLET GT SCH (21:36)
[2019-05-30] MEDS: LATANOPROST EYE DROP 0.005% 2.5 ML BOTTLE EACHEYE SCH (21:36)
[2019-05-30] MEDS: TAMSULOSIN 0.4 MG CAP.SR.24H GT SCH (21:36)
[2019-05-30] MEDS: INSULIN GLARGINE, 100 UNIT/ML CARTRIDGE SQ SCH (21:38)
[2019-05-31] VITALS (9 sets, daily range): BP systolic 109–152; BP diastolic 50–81
--- NOTE | 2019-05-31 00:10 | NUR ---
PT PLACED ON VENT PER MD'S ORDER. VENT PLUGGED INTO RED OUTLET , ALARMS ON AND AUDIBLE. AMBU BAG AT BEDSIDE. CUFF INFLATED. NO RESPIRATORY DISTRESS NOTED AT THIS TIME. WILL CONTINUE TO MONITOR THE PT.
[2019-05-31] MEDS: IPRATROPIUM NEB FS 0.5 MG/2.5 ML AMPUL.NEB IH SCH ×4 (01:18→20:03)
[2019-05-31] MEDS: ALBUTEROL FS 2.5 MG/0.5 ML VIAL.NEB NEB SCH ×4 (01:18→20:03)
[2019-05-31] MEDS: PROSTAT (PYXIS) 30 ML UDC GT SCH ×3 (05:00→21:24)
[2019-05-31] MEDS: REGLAN GT SCH ×3 (05:00→21:24)
--- NOTE | 2019-05-31 05:12 | NUR ---
PT PLACED ON CA 28% 5L PER MD'S ORDER. CUFF DEFLATED. NO RESPIRATORY DISTRESS NOTED AT THIS TIME.
[2019-05-31] MEDS: LACOSAMIDE ORAL SOLN 50 MG/5 ML UDC GT SCH ×2 (06:07→17:13)
[2019-05-31] MEDS: BLOOD SUGAR DIAGNOSTIC 1 EACH STRIP IN SCH ×3 (06:07→17:13)
[2019-05-31] MEDS: OMEPRAZOLE 20 MG CAPSULE.DR GT SCH (06:07)
[2019-05-31] MEDS: SIMETHICONE SUSP 40 MG/0.6 ML BOTTLE GT SCH ×3 (06:07→17:13)
[2019-05-31] MEDS: INSULIN REGULAR, HUMAN 100 UNIT/ML 10 ML VIAL SQ SCH ×3 (06:10→17:15)
[2019-05-31] MEDS: POTASSIUM CHLORIDE 20MEQ TAB GT SCH (09:00)
[2019-05-31] MEDS: ACIDOPHILUS/BULGARICUS 1 EACH TAB.CHEW GT SCH (09:00)
[2019-05-31] MEDS: DOXYCYCLINE HYCLATE (100 MG) 100 MG TABLET GT SCH ×2 (09:00→21:24)
[2019-05-31] MEDS: LINAGLIPTIN 5 MG TABLET GT SCH (09:00)
[2019-05-31] MEDS: DORZOLAMIDE OPTH 2% 10 ML BOTTLE EACHEYE SCH ×3 (09:00→17:13)
[2019-05-31] MEDS: VIT B CMPLX 3/FA/VIT C/BIOTIN 1 TAB TABLET GT SCH (09:00)
[2019-05-31] MEDS: CHLORHEXIDINE GLUCONATE 15 ML UDC MM SCH ×2 (09:00→21:24)
[2019-05-31] MEDS: ASCORBIC ACID 500 MG TABLET GT SCH ×2 (09:00→17:13)
[2019-05-31] MEDS: FINASTERIDE (5 MG) 5 MG TABLET GT SCH (09:00)
[2019-05-31] MEDS: PREDNISONE GT SCH (09:00)
[2019-05-31] MEDS: HYDROGEN PEROXIDE 480 ML BOTTLE TP SCH ×2 (09:11→20:28)
[2019-05-31] MEDS: ACETAMINOPHEN 650 MG/20 ML UDC- SA PATIENTS-PAIN ONLY GT SCH ×2 (10:00→21:24)
[2019-05-31] MEDS ORDERED: INFLUENZA VACCINE 2019-20 0.5 ML DISP.SYRIN IM ONE (10:00)
[2019-05-31] MEDS: BETADINE 5% CREAM TP SCH ×2 (10:30→21:25)
[2019-05-31] MEDS: HYDROGEL DRESSING 90 GM TUBE TP SCH ×2 (10:30→21:25)
[2019-05-31] MEDS: POVIDONE-IODINE OINT 28.4 GM TUBE TP SCH ×4 (10:30→21:24)
[2019-05-31] MEDS: VITAMINS A AND D 56.7 GM TUBE TP SCH ×2 (10:30→21:25)
[2019-05-31] MEDS: Z GUARD REMEDY 4 OZ OINT TP SCH ×2 (10:30→21:25)
[2019-05-31] MEDS: PETROLATUM,WHITE PACKET 5 GM PACKET TP SCH ×3 (10:30→21:25)
--- NOTE | 2019-05-31 15:37 | NUR ---
Seen and examined by Dr. Nguyen, snowboarding instructor, [facility] given, she said to continue using Betadine in the wounds of his foot.
[2019-05-31] MEDS: NEPRO 1,000 ML BOTTLE GT PRN (17:15)
--- NOTE | 2019-05-31 17:27 | NUR ---
Pt receive stable on CA 28% FiO2, treatment given and no adverse reaction observe, trach care done and inner cannula change, spare trach and ambu bag at bedside. Trach patent and secured, pt remained stable the whole shift, will continue to monitor
--- NOTE | 2019-05-31 19:26 | NUR ---
Flu vaccine given on left deltoid, will monitor for any adverse reaction.
--- NOTE | 2019-05-31 20:45 | NUR ---
PT RCVD TRACH'D ON COOL AEROSOL WITH CHARTED SETTINGS. PT TONY TX WELL. SX DONE. PT TRACH IS PATENT AND SECURE. AMBU BAG AT BEDSIDE. Addendum: 05/31/19 at 2045 by TTIO GARCES RT Amended: Links added.
[2019-05-31] MEDS: ATORVASTATIN 10 MG TABLET GT SCH (21:25)
[2019-05-31] MEDS: LATANOPROST EYE DROP 0.005% 2.5 ML BOTTLE EACHEYE SCH (21:25)
[2019-05-31] MEDS: TAMSULOSIN 0.4 MG CAP.SR.24H GT SCH (21:25)
[2019-05-31] MEDS: INSULIN GLARGINE, 100 UNIT/ML CARTRIDGE SQ SCH (21:31)
[2019-06-01] MEDS: BLOOD SUGAR DIAGNOSTIC 1 EACH STRIP IN SCH ×5 (00:25→23:47)
[2019-06-01] MEDS: SIMETHICONE SUSP 40 MG/0.6 ML BOTTLE GT SCH ×5 (00:25→23:47)
[2019-06-01] MEDS: INSULIN REGULAR, HUMAN 100 UNIT/ML 10 ML VIAL SQ SCH ×5 (00:26→23:48)
[2019-06-01] MEDS: IPRATROPIUM NEB FS 0.5 MG/2.5 ML AMPUL.NEB IH SCH ×4 (00:57→19:41)
[2019-06-01] MEDS: ALBUTEROL FS 2.5 MG/0.5 ML VIAL.NEB NEB SCH ×4 (00:57→19:41)
[2019-06-01 01:20] VITALS: BP 124/64
[2019-06-01 05:00] VITALS: BP 126/53
[2019-06-01] MEDS: LACOSAMIDE ORAL SOLN 50 MG/5 ML UDC GT SCH ×2 (05:17→17:06)
[2019-06-01] MEDS: REGLAN GT SCH ×3 (05:17→21:44)
[2019-06-01] MEDS: OMEPRAZOLE 20 MG CAPSULE.DR GT SCH (05:17)
[2019-06-01] MEDS: PROSTAT (PYXIS) 30 ML UDC GT SCH ×3 (05:17→21:44)
--- NOTE | 2019-06-01 05:55 | NUR ---
Patient left for dialysis at [facility].Vital signs stable.
--- NOTE | 2019-06-01 06:10 | NUR ---
S/P Flu vaccination - afebrile.
[2019-06-01] MEDS: HYDROGEN PEROXIDE 480 ML BOTTLE TP SCH ×2 (08:00→21:45)
[2019-06-01] MEDS: VIT B CMPLX 3/FA/VIT C/BIOTIN 1 TAB TABLET GT SCH (09:00)
[2019-06-01] MEDS: ACIDOPHILUS/BULGARICUS 1 EACH TAB.CHEW GT SCH (09:00)
[2019-06-01] MEDS: ACETAMINOPHEN 650 MG/20 ML UDC- SA PATIENTS-PAIN ONLY GT SCH ×2 (09:00→21:44)
[2019-06-01] MEDS: LINAGLIPTIN 5 MG TABLET GT SCH (09:00)
[2019-06-01] MEDS: DOXYCYCLINE HYCLATE (100 MG) 100 MG TABLET GT SCH ×2 (09:00→21:45)
[2019-06-01] MEDS: PREDNISONE GT SCH (09:00)
[2019-06-01] MEDS: DORZOLAMIDE OPTH 2% 10 ML BOTTLE EACHEYE SCH ×3 (09:00→16:52)
[2019-06-01] MEDS: ASCORBIC ACID 500 MG TABLET GT SCH ×2 (09:00→16:52)
[2019-06-01] MEDS: FINASTERIDE (5 MG) 5 MG TABLET GT SCH (09:00)
[2019-06-01] MEDS: POTASSIUM CHLORIDE 20MEQ TAB GT SCH (09:00)
[2019-06-01] MEDS: Z GUARD REMEDY 4 OZ OINT TP SCH ×2 (11:15→21:45)
[2019-06-01] MEDS: HYDROGEL DRESSING 90 GM TUBE TP SCH ×2 (11:15→21:45)
[2019-06-01] MEDS: BETADINE 5% CREAM TP SCH ×2 (11:15→21:45)
[2019-06-01] MEDS: CHLORHEXIDINE GLUCONATE 15 ML UDC MM SCH ×2 (11:15→21:45)
[2019-06-01] MEDS: VITAMINS A AND D 56.7 GM TUBE TP SCH ×2 (11:15→21:45)
[2019-06-01] MEDS: PETROLATUM,WHITE PACKET 5 GM PACKET TP SCH ×3 (11:15→21:45)
[2019-06-01] MEDS: POVIDONE-IODINE OINT 28.4 GM TUBE TP SCH ×4 (11:15→21:45)
--- NOTE | 2019-06-01 11:37 | NUR ---
No adverse reactions to flu vaccine noted.
[2019-06-01 12:41] VITALS: BP 131/74
[2019-06-01 17:54] VITALS: BP 139/73
[2019-06-01 20:04] VITALS: BP 140/79
[2019-06-01 21:00] VITALS: BP 140/79
[2019-06-01] MEDS: TAMSULOSIN 0.4 MG CAP.SR.24H GT SCH (21:45)
[2019-06-01] MEDS: LATANOPROST EYE DROP 0.005% 2.5 ML BOTTLE EACHEYE SCH (21:45)
[2019-06-01] MEDS: ATORVASTATIN 10 MG TABLET GT SCH (21:45)
[2019-06-01] MEDS: INSULIN GLARGINE, 100 UNIT/ML CARTRIDGE SQ SCH (21:46)
[2019-06-02] VITALS (8 sets, daily range): BP systolic 117–140; BP diastolic 65–85
[2019-06-02] MEDS: IPRATROPIUM NEB FS 0.5 MG/2.5 ML AMPUL.NEB IH SCH ×4 (01:15→19:32)
[2019-06-02] MEDS: ALBUTEROL FS 2.5 MG/0.5 ML VIAL.NEB NEB SCH ×4 (01:15→19:32)
[2019-06-02] MEDS: REGLAN GT SCH ×3 (05:13→21:30)
[2019-06-02] MEDS: SIMETHICONE SUSP 40 MG/0.6 ML BOTTLE GT SCH ×4 (05:13→23:21)
[2019-06-02] MEDS: LACOSAMIDE ORAL SOLN 50 MG/5 ML UDC GT SCH ×2 (05:13→17:11)
[2019-06-02] MEDS: OMEPRAZOLE 20 MG CAPSULE.DR GT SCH (05:13)
[2019-06-02] MEDS: PROSTAT (PYXIS) 30 ML UDC GT SCH ×3 (05:13→21:31)
[2019-06-02] MEDS: BLOOD SUGAR DIAGNOSTIC 1 EACH STRIP IN SCH ×4 (05:51→23:21)
[2019-06-02] MEDS: INSULIN REGULAR, HUMAN 100 UNIT/ML 10 ML VIAL SQ SCH ×4 (05:54→23:21)
--- NOTE | 2019-06-02 06:15 | NUR ---
Pt received on CA 28% FiO2 until 0000, switch to ordered MV, Vent plug on red outlet, spare trach and ambu bag is at bedside, alarms are on and audible, all HHN tx. given and no adverse reaction observe. trach patent and secured, sxn prn, at 0500 pt was placed back on CA 28% , pt was stable the whole shift, no sob or respiratory distress noted during the shift
--- NOTE | 2019-06-02 08:26 | NUR ---
RT Pt received trached on cool aerosol tolerating well. Pt is awake but does not follow commands. HHN tx tolerated well with no adverse reactions. No respiratory distress noted. Addendum: 06/02/19 at 1639 by MARCELO KENNEDY RT Amended: Links added.
[2019-06-02] MEDS: HYDROGEN PEROXIDE 480 ML BOTTLE TP SCH ×2 (09:00→21:33)
[2019-06-02] MEDS: BETADINE 5% CREAM TP SCH ×2 (09:00→21:33)
[2019-06-02] MEDS: PETROLATUM,WHITE PACKET 5 GM PACKET TP SCH ×3 (09:00→21:37)
[2019-06-02] MEDS: HYDROGEL DRESSING 90 GM TUBE TP SCH ×2 (09:00→21:33)
[2019-06-02] MEDS: POVIDONE-IODINE OINT 28.4 GM TUBE TP SCH ×4 (09:00→21:33)
[2019-06-02] MEDS: Z GUARD REMEDY 4 OZ OINT TP SCH ×2 (09:00→21:34)
[2019-06-02] MEDS: VITAMINS A AND D 56.7 GM TUBE TP SCH ×2 (09:00→21:37)
[2019-06-02] MEDS: FINASTERIDE (5 MG) 5 MG TABLET GT SCH (09:36)
[2019-06-02] MEDS: LINAGLIPTIN 5 MG TABLET GT SCH (09:36)
[2019-06-02] MEDS: DORZOLAMIDE OPTH 2% 10 ML BOTTLE EACHEYE SCH ×3 (09:36→16:53)
[2019-06-02] MEDS: CHLORHEXIDINE GLUCONATE 15 ML UDC MM SCH ×2 (09:36→21:33)
[2019-06-02] MEDS: ACIDOPHILUS/BULGARICUS 1 EACH TAB.CHEW GT SCH (09:36)
[2019-06-02] MEDS: VIT B CMPLX 3/FA/VIT C/BIOTIN 1 TAB TABLET GT SCH (09:36)
[2019-06-02] MEDS: ACETAMINOPHEN 650 MG/20 ML UDC- SA PATIENTS-PAIN ONLY GT SCH ×2 (09:36→21:33)
[2019-06-02] MEDS: PREDNISONE GT SCH (09:36)
[2019-06-02] MEDS: DOXYCYCLINE HYCLATE (100 MG) 100 MG TABLET GT SCH ×2 (09:36→21:33)
[2019-06-02] MEDS: POTASSIUM CHLORIDE 20MEQ TAB GT SCH (09:36)
[2019-06-02] MEDS: ASCORBIC ACID 500 MG TABLET GT SCH ×2 (09:36→16:53)
--- NOTE | 2019-06-02 20:49 | NUR ---
RN NOTES S/P flu vaccine with no A/R noted. Will continue to monitor.
[2019-06-02] MEDS: TAMSULOSIN 0.4 MG CAP.SR.24H GT SCH (21:37)
[2019-06-02] MEDS: LATANOPROST EYE DROP 0.005% 2.5 ML BOTTLE EACHEYE SCH (21:37)
[2019-06-02] MEDS: ATORVASTATIN 10 MG TABLET GT SCH (21:37)
[2019-06-02] MEDS: INSULIN GLARGINE, 100 UNIT/ML CARTRIDGE SQ SCH (21:38)
[2019-06-03] VITALS (8 sets, daily range): BP systolic 116–146; BP diastolic 58–76
[2019-06-03] MEDS: IPRATROPIUM NEB FS 0.5 MG/2.5 ML AMPUL.NEB IH SCH ×4 (01:30→20:00)
[2019-06-03] MEDS: ALBUTEROL FS 2.5 MG/0.5 ML VIAL.NEB NEB SCH ×4 (01:30→20:00)
[2019-06-03] MEDS: OMEPRAZOLE 20 MG CAPSULE.DR GT SCH (05:30)
[2019-06-03] MEDS: LACOSAMIDE ORAL SOLN 50 MG/5 ML UDC GT SCH ×2 (05:30→17:23)
[2019-06-03] MEDS: PROSTAT (PYXIS) 30 ML UDC GT SCH ×3 (05:30→21:22)
[2019-06-03] MEDS: REGLAN GT SCH ×3 (05:30→21:22)
[2019-06-03] MEDS: SIMETHICONE SUSP 40 MG/0.6 ML BOTTLE GT SCH ×3 (05:30→17:23)
[2019-06-03] MEDS: BLOOD SUGAR DIAGNOSTIC 1 EACH STRIP IN SCH ×3 (05:30→17:23)
[2019-06-03] MEDS: INSULIN REGULAR, HUMAN 100 UNIT/ML 10 ML VIAL SQ SCH ×3 (05:31→17:23)
[2019-06-03] MEDS: HYDROGEN PEROXIDE 480 ML BOTTLE TP SCH ×2 (07:22→20:00)
[2019-06-03] MEDS: VIT B CMPLX 3/FA/VIT C/BIOTIN 1 TAB TABLET GT SCH (09:20)
[2019-06-03] MEDS: PREDNISONE GT SCH (09:20)
[2019-06-03] MEDS: DORZOLAMIDE OPTH 2% 10 ML BOTTLE EACHEYE SCH ×3 (09:20→17:24)
[2019-06-03] MEDS: ACETAMINOPHEN 650 MG/20 ML UDC- SA PATIENTS-PAIN ONLY GT SCH ×2 (09:20→21:22)
[2019-06-03] MEDS: FINASTERIDE (5 MG) 5 MG TABLET GT SCH (09:20)
[2019-06-03] MEDS: POTASSIUM CHLORIDE 20MEQ TAB GT SCH (09:20)
[2019-06-03] MEDS: ACIDOPHILUS/BULGARICUS 1 EACH TAB.CHEW GT SCH (09:20)
[2019-06-03] MEDS: LINAGLIPTIN 5 MG TABLET GT SCH (09:20)
[2019-06-03] MEDS: DOXYCYCLINE HYCLATE (100 MG) 100 MG TABLET GT SCH ×2 (09:21→21:22)
[2019-06-03] MEDS: ASCORBIC ACID 500 MG TABLET GT SCH ×2 (09:21→17:24)
[2019-06-03] MEDS: CHLORHEXIDINE GLUCONATE 15 ML UDC MM SCH ×2 (09:21→21:22)
[2019-06-03] MEDS: HYDROGEL DRESSING 90 GM TUBE TP SCH ×2 (09:50→21:23)
[2019-06-03] MEDS: BETADINE 5% CREAM TP SCH ×2 (09:50→21:23)
[2019-06-03] MEDS: POVIDONE-IODINE OINT 28.4 GM TUBE TP SCH ×4 (09:50→21:22)
[2019-06-03] MEDS: VITAMINS A AND D 56.7 GM TUBE TP SCH ×2 (09:50→21:23)
[2019-06-03] MEDS: PETROLATUM,WHITE PACKET 5 GM PACKET TP SCH ×2 (09:50)
[2019-06-03] MEDS: Z GUARD REMEDY 4 OZ OINT TP SCH ×2 (09:50→21:23)
[2019-06-03] MEDS: NEPRO 1,000 ML BOTTLE GT PRN (12:42)
[2019-06-03] MEDS ORDERED: MAG HYDROX/AL HYDROX/SIMETH 30 ML UDC GT PRN (13:30)
[2019-06-03] MEDS ORDERED: MAGNESIUM HYDROXIDE 30 ML UDC GT PRN (13:30)
--- NOTE | 2019-06-03 14:05 | NUR ---
CHANI called patients son, Dr. Johns [phone] to discuss past due share of cost owed to [facility]. Call went to voicemail and SW left contact information. CHANI will follow-up.
--- NOTE | 2019-06-03 14:23 | NUR ---
2:16pm--CHANI received a call back from the patient's Son, and CHANI discussed share of cost. Per Dr. Johns, he allegedly was not aware of the share of cost owed to [facility]. Per Dr. Johns, he wants to speak to the patient's group insurance special agent as a large amount of money has been taken from the patient monthly benefits and wants to find out why. Per Dr. Johns, he isn't sure if the money deducted is going towards the share of cost. CHANI provided Dr. Johns with [facility] Tip Cementer's EXT [id number] to find out the group insurance special agent's number and further details regarding share of cost. CHANI informed Dr. Johns regarding how he may begin making payments. Dr. Johns expressed understanding and stated he would begin making payment towards total share of cost owed to [facility]. 2:35-- Dr. Johns called CHANI to communicate that Tip Cementer was not available via phone but he left her a voicemail and hopes to hear back from her. Noted.
--- NOTE | 2019-06-03 16:53 | NUR ---
No adverse reaction to flu vaccine noted.
[2019-06-03] MEDS: LATANOPROST EYE DROP 0.005% 2.5 ML BOTTLE EACHEYE SCH (21:23)
[2019-06-03] MEDS: TAMSULOSIN 0.4 MG CAP.SR.24H GT SCH (21:23)
[2019-06-03] MEDS: ATORVASTATIN 10 MG TABLET GT SCH (21:23)
[2019-06-03] MEDS: INSULIN GLARGINE, 100 UNIT/ML CARTRIDGE SQ SCH (21:24)
--- NOTE | 2019-06-03 23:55 | NUR ---
RT NOTE: RECEIVED TRACH PT ON COOL AEROSOL. PLACED PT ON MECH VENT ON NOTED SETTINGS PER MD ORDERS AT THIS TIME. TRACH IS PATENT AND SECURED. TRACH CARE DONE. TRAINING INSTRUCTOR DONE. Q6 BREATHING TX GIVEN WITH NO ADVERSE REACTION NOTED. SX DONE PRN. VENT PLUGGED INTO RED OUTLET. ALARMS ON AND AUDIBLE. AMBU BAG @ BEDSIDE. NO RESP DISTRESS AT THIS TIME. WILL CONT TO MONITOR PT. Addendum: 06/04/19 at 0305 by RAMYA HARKINS RT Amended: Links added.
[2019-06-04] MEDS: SIMETHICONE SUSP 40 MG/0.6 ML BOTTLE GT SCH ×5 (00:24→23:49)
[2019-06-04] MEDS: BLOOD SUGAR DIAGNOSTIC 1 EACH STRIP IN SCH ×5 (00:24→23:49)
[2019-06-04] MEDS: INSULIN REGULAR, HUMAN 100 UNIT/ML 10 ML VIAL SQ SCH ×5 (00:25→23:50)
[2019-06-04] MEDS: IPRATROPIUM NEB FS 0.5 MG/2.5 ML AMPUL.NEB IH SCH ×4 (01:58→19:53)
[2019-06-04] MEDS: ALBUTEROL FS 2.5 MG/0.5 ML VIAL.NEB NEB SCH ×4 (01:58→19:53)
[2019-06-04 03:07] VITALS: BP 128/64
[2019-06-04] MEDS: PROSTAT (PYXIS) 30 ML UDC GT SCH ×3 (05:00→21:11)
[2019-06-04] MEDS: REGLAN GT SCH ×3 (05:00→21:11)
[2019-06-04 06:20] VITALS: BP 124/59
[2019-06-04] MEDS: LACOSAMIDE ORAL SOLN 50 MG/5 ML UDC GT SCH ×2 (06:22→17:51)
[2019-06-04] MEDS: OMEPRAZOLE 20 MG CAPSULE.DR GT SCH (06:22)
[2019-06-04] MEDS: HYDROGEN PEROXIDE 480 ML BOTTLE TP SCH ×2 (09:00→21:12)
[2019-06-04] MEDS: ASCORBIC ACID 500 MG TABLET GT SCH ×2 (10:45→16:53)
[2019-06-04] MEDS: ACIDOPHILUS/BULGARICUS 1 EACH TAB.CHEW GT SCH (10:45)
[2019-06-04] MEDS: POTASSIUM CHLORIDE 20MEQ TAB GT SCH (10:45)
[2019-06-04] MEDS: VIT B CMPLX 3/FA/VIT C/BIOTIN 1 TAB TABLET GT SCH (10:45)
[2019-06-04] MEDS: ACETAMINOPHEN 650 MG/20 ML UDC- SA PATIENTS-PAIN ONLY GT SCH ×2 (10:45→21:11)
[2019-06-04] MEDS: DOXYCYCLINE HYCLATE (100 MG) 100 MG TABLET GT SCH ×2 (10:45→21:11)
[2019-06-04] MEDS: FINASTERIDE (5 MG) 5 MG TABLET GT SCH (10:45)
[2019-06-04] MEDS: LINAGLIPTIN 5 MG TABLET GT SCH (10:45)
[2019-06-04] MEDS: PREDNISONE GT SCH (10:45)
[2019-06-04] MEDS: DORZOLAMIDE OPTH 2% 10 ML BOTTLE EACHEYE SCH ×3 (10:45→16:52)
[2019-06-04] MEDS: CHLORHEXIDINE GLUCONATE 15 ML UDC MM SCH ×2 (10:45→21:11)
[2019-06-04] MEDS: POVIDONE-IODINE OINT 28.4 GM TUBE TP SCH ×4 (11:00→21:11)
[2019-06-04] MEDS: BETADINE 5% CREAM TP SCH ×2 (11:00→21:12)
[2019-06-04] MEDS: VITAMINS A AND D 56.7 GM TUBE TP SCH ×2 (11:00→21:12)
[2019-06-04] MEDS: Z GUARD REMEDY 4 OZ OINT TP SCH ×2 (11:00→21:12)
[2019-06-04] MEDS: PETROLATUM,WHITE PACKET 5 GM PACKET TP SCH (11:00)
[2019-06-04] MEDS: HYDROGEL DRESSING 90 GM TUBE TP SCH ×2 (11:00→21:11)
[2019-06-04 17:58] VITALS: BP 131/74
[2019-06-04 20:25] VITALS: BP 160/71
--- NOTE | 2019-06-04 20:29 | NUR ---
RT NOTE PT RECEIVED TRACHED ON COOL AEROSOL @ 28%. CONT. POX. CONNECTED. AMBU BAG/BACK UP TRACH @ BEDSIDE. TX GIVEN, NO ADVERSE REACTIONS NOTED. SX DONE, TRACH SECURED AND PATENT. WATER LEVEL GOOD. NO SOB NOTED AT THIS TIME. WILL PLACE ON VENT @ 0000 PER MD ORDER. WILL CONTINUE TO MONITOR T/O SHIFT. Addendum: 06/04/19 at 2029 by GINGER YOU RT Amended: Links added.
[2019-06-04 21:10] VITALS: BP 142/69
[2019-06-04] MEDS: ATORVASTATIN 10 MG TABLET GT SCH (21:12)
[2019-06-04] MEDS: LATANOPROST EYE DROP 0.005% 2.5 ML BOTTLE EACHEYE SCH (21:12)
[2019-06-04] MEDS: INSULIN GLARGINE, 100 UNIT/ML CARTRIDGE SQ SCH (21:12)
[2019-06-04] MEDS: TAMSULOSIN 0.4 MG CAP.SR.24H GT SCH (21:12)
[2019-06-05] VITALS (7 sets, daily range): BP systolic 99–134; BP diastolic 53–70
[2019-06-05] MEDS: IPRATROPIUM NEB FS 0.5 MG/2.5 ML AMPUL.NEB IH SCH ×4 (01:24→20:30)
[2019-06-05] MEDS: ALBUTEROL FS 2.5 MG/0.5 ML VIAL.NEB NEB SCH ×4 (01:24→20:30)
[2019-06-05] MEDS: REGLAN GT SCH ×3 (05:36→21:34)
[2019-06-05] MEDS: OMEPRAZOLE 20 MG CAPSULE.DR GT SCH (05:37)
[2019-06-05] MEDS: LACOSAMIDE ORAL SOLN 50 MG/5 ML UDC GT SCH ×2 (05:37→18:41)
[2019-06-05] MEDS: BLOOD SUGAR DIAGNOSTIC 1 EACH STRIP IN SCH ×3 (05:37→18:41)
[2019-06-05] MEDS: SIMETHICONE SUSP 40 MG/0.6 ML BOTTLE GT SCH ×3 (05:37→18:41)
[2019-06-05] MEDS: PROSTAT (PYXIS) 30 ML UDC GT SCH ×3 (05:37→21:25)
[2019-06-05] MEDS: INSULIN REGULAR, HUMAN 100 UNIT/ML 10 ML VIAL SQ SCH ×3 (05:40→18:42)
[2019-06-05] MEDS: POTASSIUM CHLORIDE 20MEQ TAB GT SCH (09:00)
[2019-06-05] MEDS: POVIDONE-IODINE OINT 28.4 GM TUBE TP SCH ×4 (09:00→21:34)
[2019-06-05] MEDS: CHLORHEXIDINE GLUCONATE 15 ML UDC MM SCH ×2 (09:00→21:26)
[2019-06-05] MEDS: FINASTERIDE (5 MG) 5 MG TABLET GT SCH (09:00)
[2019-06-05] MEDS: VIT B CMPLX 3/FA/VIT C/BIOTIN 1 TAB TABLET GT SCH (09:00)
[2019-06-05] MEDS: LINAGLIPTIN 5 MG TABLET GT SCH (09:00)
[2019-06-05] MEDS: ACIDOPHILUS/BULGARICUS 1 EACH TAB.CHEW GT SCH (09:00)
[2019-06-05] MEDS: BETADINE 5% CREAM TP SCH ×2 (09:00→21:33)
[2019-06-05] MEDS: PETROLATUM,WHITE PACKET 5 GM PACKET TP SCH (09:00)
[2019-06-05] MEDS: ACETAMINOPHEN 650 MG/20 ML UDC- SA PATIENTS-PAIN ONLY GT SCH ×2 (09:00→21:25)
[2019-06-05] MEDS: ASCORBIC ACID 500 MG TABLET GT SCH ×2 (09:00→17:00)
[2019-06-05] MEDS: HYDROGEL DRESSING 90 GM TUBE TP SCH ×2 (09:00→21:32)
[2019-06-05] MEDS: PREDNISONE GT SCH (09:00)
[2019-06-05] MEDS: VITAMINS A AND D 56.7 GM TUBE TP SCH ×2 (09:00→21:32)
[2019-06-05] MEDS: HYDROGEN PEROXIDE 480 ML BOTTLE TP SCH ×2 (09:00→21:05)
[2019-06-05] MEDS: DOXYCYCLINE HYCLATE (100 MG) 100 MG TABLET GT SCH ×2 (09:00→21:26)
[2019-06-05] MEDS: Z GUARD REMEDY 4 OZ OINT TP SCH ×2 (09:00→21:32)
[2019-06-05] MEDS: DORZOLAMIDE OPTH 2% 10 ML BOTTLE EACHEYE SCH ×3 (09:00→17:00)
--- NOTE | 2019-06-05 15:36 | NUR ---
CHANI followed-up and called the patients responsible alliance party/son, Dr. Johns [phone] to discuss the share of cost owed to [facility] and the payment options available (i.e. Resident Trust Fund). Dr. Johns was receptive to speaking with CHANI about the matter. Per Dr. Johns, he met with [facility] staff, Suki Hannah in the past to set up direct deposit for the share of cost. Per Dr. Johns, he will meet with Suki to check its status and if that does not work out, he may resort to authorizing [facility] to make a Resident Trust Fund. Per Dr. Manriquez request, CHANI e-mailed the Resident Trust Fund Authorization form and A guide for Computer Forensics Technician Payees informational packet to [email or web address].
[2019-06-05] MEDS: LATANOPROST EYE DROP 0.005% 2.5 ML BOTTLE EACHEYE SCH (21:27)
[2019-06-05] MEDS: TAMSULOSIN 0.4 MG CAP.SR.24H GT SCH (21:27)
[2019-06-05] MEDS: ATORVASTATIN 10 MG TABLET GT SCH (21:28)
[2019-06-05] MEDS: INSULIN GLARGINE, 100 UNIT/ML CARTRIDGE SQ SCH (21:31)
[2019-06-06] MEDS: BLOOD SUGAR DIAGNOSTIC 1 EACH STRIP IN SCH ×5 (00:01→23:53)
[2019-06-06] MEDS: SIMETHICONE SUSP 40 MG/0.6 ML BOTTLE GT SCH ×5 (00:01→23:53)
[2019-06-06] MEDS: INSULIN REGULAR, HUMAN 100 UNIT/ML 10 ML VIAL SQ SCH ×5 (00:04→23:54)
[2019-06-06 01:00] VITALS: BP 100/65
[2019-06-06] MEDS: IPRATROPIUM NEB FS 0.5 MG/2.5 ML AMPUL.NEB IH SCH ×4 (01:59→20:14)
[2019-06-06] MEDS: ALBUTEROL FS 2.5 MG/0.5 ML VIAL.NEB NEB SCH ×4 (01:59→20:14)
[2019-06-06 05:00] VITALS: BP 118/63
[2019-06-06] MEDS: REGLAN GT SCH ×3 (05:14→21:00)
[2019-06-06] MEDS: LACOSAMIDE ORAL SOLN 50 MG/5 ML UDC GT SCH ×2 (05:14→17:48)
[2019-06-06] MEDS: PROSTAT (PYXIS) 30 ML UDC GT SCH ×3 (05:14→21:00)
[2019-06-06] MEDS: OMEPRAZOLE 20 MG CAPSULE.DR GT SCH (05:14)
--- NOTE | 2019-06-06 05:57 | NUR ---
PATIENT LEFT FOR DIALYSIS CENTER VIA AMBULANCE IN STABLE CONDITION
[2019-06-06] MEDS: PREDNISONE GT SCH (10:50)
[2019-06-06] MEDS: CHLORHEXIDINE GLUCONATE 15 ML UDC MM SCH ×2 (10:50→21:00)
[2019-06-06] MEDS: DOXYCYCLINE HYCLATE (100 MG) 100 MG TABLET GT SCH ×2 (10:50→21:00)
[2019-06-06] MEDS: VIT B CMPLX 3/FA/VIT C/BIOTIN 1 TAB TABLET GT SCH (10:50)
[2019-06-06] MEDS: ACIDOPHILUS/BULGARICUS 1 EACH TAB.CHEW GT SCH (10:50)
[2019-06-06] MEDS: LINAGLIPTIN 5 MG TABLET GT SCH (10:50)
[2019-06-06] MEDS: ACETAMINOPHEN 650 MG/20 ML UDC- SA PATIENTS-PAIN ONLY GT SCH ×3 (10:50→22:00)
[2019-06-06] MEDS: POTASSIUM CHLORIDE 20MEQ TAB GT SCH (10:50)
[2019-06-06] MEDS: DORZOLAMIDE OPTH 2% 10 ML BOTTLE EACHEYE SCH ×3 (10:50→17:48)
[2019-06-06] MEDS: ASCORBIC ACID 500 MG TABLET GT SCH ×2 (10:50→17:48)
[2019-06-06] MEDS: FINASTERIDE (5 MG) 5 MG TABLET GT SCH (10:50)
[2019-06-06 11:01] VITALS: BP 152/59
[2019-06-06] MEDS: HYDROGEL DRESSING 90 GM TUBE TP SCH ×2 (12:00→21:00)
[2019-06-06] MEDS: Z GUARD REMEDY 4 OZ OINT TP SCH ×2 (12:00→21:00)
[2019-06-06] MEDS: POVIDONE-IODINE OINT 28.4 GM TUBE TP SCH ×4 (12:00→21:00)
[2019-06-06] MEDS: PETROLATUM,WHITE PACKET 5 GM PACKET TP SCH (12:00)
[2019-06-06] MEDS: BETADINE 5% CREAM TP SCH ×2 (12:00→21:00)
[2019-06-06] MEDS: VITAMINS A AND D 56.7 GM TUBE TP SCH ×2 (12:00→21:00)
[2019-06-06] MEDS: HYDROGEN PEROXIDE 480 ML BOTTLE TP SCH ×2 (12:40→21:00)
[2019-06-06] MEDS ORDERED: predniSONE 10 MG TABLET GT SCH (15:55)
[2019-06-06 20:40] VITALS: BP 114/73
[2019-06-06] MEDS: ATORVASTATIN 10 MG TABLET GT SCH (22:02)
[2019-06-06] MEDS: INSULIN GLARGINE, 100 UNIT/ML CARTRIDGE SQ SCH (22:02)
[2019-06-06] MEDS: LATANOPROST EYE DROP 0.005% 2.5 ML BOTTLE EACHEYE SCH (22:02)
[2019-06-06] MEDS: TAMSULOSIN 0.4 MG CAP.SR.24H GT SCH (22:02)
[2019-06-07] MEDS: ALBUTEROL FS 2.5 MG/0.5 ML VIAL.NEB NEB SCH ×4 (01:23→19:56)
[2019-06-07] MEDS: IPRATROPIUM NEB FS 0.5 MG/2.5 ML AMPUL.NEB IH SCH ×4 (01:23→19:56)
--- NOTE | 2019-06-07 03:43 | NUR ---
Tylenol due at 2100 was given at 2200. In the system it shows that it was given 3x, 2200, 2308 and 2352 because when it was given in 2200 it still shows in the system that its not given yet (pink in color)that's why the user click admin at 2308 and 2352 until it shows in the system that it was administered. Tylenol was only given once at 2200.
--- NOTE | 2019-06-07 04:56 | NUR ---
Pt receive stable on CA 28%, spare trach and ambu bag is at bedside. trach patent and secured. At 0010 switch pt from Cool aerosol to ordered MV, pt stable on vent, no adverse effect noted. Will be switching back pt to CA 28% at 0500, will continue to monitor during the shift.
[2019-06-07] MEDS: SIMETHICONE SUSP 40 MG/0.6 ML BOTTLE GT SCH ×4 (05:41→23:27)
[2019-06-07] MEDS: REGLAN GT SCH ×3 (05:41→20:56)
[2019-06-07] MEDS: OMEPRAZOLE 20 MG CAPSULE.DR GT SCH (05:41)
[2019-06-07] MEDS: LACOSAMIDE ORAL SOLN 50 MG/5 ML UDC GT SCH ×2 (05:41→17:45)
[2019-06-07] MEDS: PROSTAT (PYXIS) 30 ML UDC GT SCH ×3 (05:41→20:56)
[2019-06-07] MEDS: BLOOD SUGAR DIAGNOSTIC 1 EACH STRIP IN SCH ×4 (05:44→23:27)
[2019-06-07] MEDS: INSULIN REGULAR, HUMAN 100 UNIT/ML 10 ML VIAL SQ SCH ×4 (05:46→23:29)
[2019-06-07 07:45] VITALS: BP 130/74
[2019-06-07] MEDS: HYDROGEN PEROXIDE 480 ML BOTTLE TP SCH ×2 (07:48→20:56)
[2019-06-07] MEDS: PETROLATUM,WHITE PACKET 5 GM PACKET TP SCH (09:00)
[2019-06-07] MEDS: BETADINE 5% CREAM TP SCH ×2 (09:00→20:56)
[2019-06-07] MEDS: VITAMINS A AND D 56.7 GM TUBE TP SCH ×2 (09:00→20:56)
[2019-06-07] MEDS: Z GUARD REMEDY 4 OZ OINT TP SCH ×2 (09:00→20:56)
[2019-06-07] MEDS: HYDROGEL DRESSING 90 GM TUBE TP SCH ×2 (09:00→20:56)
[2019-06-07] MEDS: VIT B CMPLX 3/FA/VIT C/BIOTIN 1 TAB TABLET GT SCH (09:00)
[2019-06-07] MEDS: ACIDOPHILUS/BULGARICUS 1 EACH TAB.CHEW GT SCH (09:26)
[2019-06-07] MEDS: DORZOLAMIDE OPTH 2% 10 ML BOTTLE EACHEYE SCH ×3 (09:26→16:23)
[2019-06-07] MEDS: LINAGLIPTIN 5 MG TABLET GT SCH (09:27)
[2019-06-07] MEDS: ASCORBIC ACID 500 MG TABLET GT SCH ×2 (09:27→16:23)
[2019-06-07] MEDS: DOXYCYCLINE HYCLATE (100 MG) 100 MG TABLET GT SCH ×2 (09:27→20:56)
[2019-06-07] MEDS: CHLORHEXIDINE GLUCONATE 15 ML UDC MM SCH ×2 (09:27→20:56)
[2019-06-07] MEDS: PredniSONE SOLUTION 5 MG/5 ML UDC GT SCH (09:27)
[2019-06-07] MEDS: POTASSIUM CHLORIDE 20MEQ TAB GT SCH (09:27)
[2019-06-07] MEDS: FINASTERIDE (5 MG) 5 MG TABLET GT SCH (09:27)
[2019-06-07] MEDS: POVIDONE-IODINE OINT 28.4 GM TUBE TP SCH ×4 (09:50→20:56)
[2019-06-07] MEDS: NEPRO 1,000 ML BOTTLE GT PRN (15:19)
[2019-06-07 19:36] VITALS: BP 144/86
[2019-06-07] MEDS: ACETAMINOPHEN 650 MG/20 ML UDC- SA PATIENTS-PAIN ONLY GT SCH (20:56)
[2019-06-07] MEDS: LATANOPROST EYE DROP 0.005% 2.5 ML BOTTLE EACHEYE SCH (21:18)
[2019-06-07] MEDS: TAMSULOSIN 0.4 MG CAP.SR.24H GT SCH (21:18)
[2019-06-07] MEDS: ATORVASTATIN 10 MG TABLET GT SCH (21:18)
[2019-06-07] MEDS: INSULIN GLARGINE, 100 UNIT/ML CARTRIDGE SQ SCH (21:18)
[2019-06-08] MEDS: ALBUTEROL FS 2.5 MG/0.5 ML VIAL.NEB NEB SCH ×4 (01:41→19:53)
[2019-06-08] MEDS: IPRATROPIUM NEB FS 0.5 MG/2.5 ML AMPUL.NEB IH SCH ×4 (01:41→19:53)
[2019-06-08] MEDS: REGLAN GT SCH ×3 (05:40→20:39)
[2019-06-08] MEDS: INSULIN REGULAR, HUMAN 100 UNIT/ML 10 ML VIAL SQ SCH ×4 (05:40→23:16)
[2019-06-08] MEDS: OMEPRAZOLE 20 MG CAPSULE.DR GT SCH (05:40)
[2019-06-08] MEDS: SIMETHICONE SUSP 40 MG/0.6 ML BOTTLE GT SCH ×4 (05:40→23:15)
[2019-06-08] MEDS: PROSTAT (PYXIS) 30 ML UDC GT SCH ×3 (05:40→20:39)
[2019-06-08] MEDS: LACOSAMIDE ORAL SOLN 50 MG/5 ML UDC GT SCH ×2 (05:40→17:11)
[2019-06-08] MEDS: BLOOD SUGAR DIAGNOSTIC 1 EACH STRIP IN SCH ×4 (05:40→23:15)
[2019-06-08] MEDS: HYDROGEN PEROXIDE 480 ML BOTTLE TP SCH ×2 (09:00→20:40)
[2019-06-08] MEDS: ACIDOPHILUS/BULGARICUS 1 EACH TAB.CHEW GT SCH (10:25)
[2019-06-08] MEDS: POTASSIUM CHLORIDE 20MEQ TAB GT SCH (10:25)
[2019-06-08] MEDS: DORZOLAMIDE OPTH 2% 10 ML BOTTLE EACHEYE SCH ×3 (10:25→17:11)
[2019-06-08] MEDS: BETADINE 5% CREAM TP SCH ×2 (10:25→20:40)
[2019-06-08] MEDS: ASCORBIC ACID 500 MG TABLET GT SCH ×2 (10:25→17:11)
[2019-06-08] MEDS: FINASTERIDE (5 MG) 5 MG TABLET GT SCH (10:25)
[2019-06-08] MEDS: CHLORHEXIDINE GLUCONATE 15 ML UDC MM SCH ×2 (10:25→20:40)
[2019-06-08] MEDS: LINAGLIPTIN 5 MG TABLET GT SCH (10:25)
[2019-06-08] MEDS: VITAMINS A AND D 56.7 GM TUBE TP SCH ×2 (10:25→20:40)
[2019-06-08] MEDS: POVIDONE-IODINE OINT 28.4 GM TUBE TP SCH ×4 (10:25→20:40)
[2019-06-08] MEDS: ACETAMINOPHEN 650 MG/20 ML UDC- SA PATIENTS-PAIN ONLY GT SCH ×2 (10:25→20:40)
[2019-06-08] MEDS: PETROLATUM,WHITE PACKET 5 GM PACKET TP SCH (10:25)
[2019-06-08] MEDS: VIT B CMPLX 3/FA/VIT C/BIOTIN 1 TAB TABLET GT SCH (10:25)
[2019-06-08] MEDS: HYDROGEL DRESSING 90 GM TUBE TP SCH ×2 (10:25→20:40)
[2019-06-08] MEDS: PredniSONE SOLUTION 5 MG/5 ML UDC GT SCH (10:25)
[2019-06-08] MEDS: DOXYCYCLINE HYCLATE (100 MG) 100 MG TABLET GT SCH ×2 (10:25→20:40)
[2019-06-08] MEDS: Z GUARD REMEDY 4 OZ OINT TP SCH ×2 (10:25→20:40)
[2019-06-08] MEDS: NEPRO 1,000 ML BOTTLE GT PRN (10:25)
--- NOTE | 2019-06-08 10:25 | NUR ---
PATIENT RETURNED FROM DIALYSIS CENTER, AT ARRIVAL WAS CONNECTED TO COOL AEROSOL, WAS SUCTIONED WITH MINIMAL SECRETIONS, VITAL SIGNS BP 163/90, TEMP 98.7, PULSE 99, RESP 18, PAIN NO FACIAL GRIMACING, RIGHT CHEST DIALYSIS CATHETER INTACT, NO BLEEDING, NO SWELLING,PRE DIALYSIS WEIGHT 80.8KG, POST DIALYSIS WT 78.5KG, HOB ELEVATED, GTUBE FEEDING WAS RESUMED,CALL LIGHT WITHIN REACH.
--- NOTE | 2019-06-08 16:14 | NUR ---
Informed Dr. Swenson, ID that patient is on isolation for MRSA of the R great toe and the other site is from fluid filled blister in the R hand however patient is no longer on any treatment. He said to send specimen for MRSA clearance and obtain specimen from the site even though the area in the right hand where specimen is obtain is dry and pinkish in color. Order carried out.
[2019-06-08 19:50] VITALS: BP 149/80
[2019-06-08] MEDS: LATANOPROST EYE DROP 0.005% 2.5 ML BOTTLE EACHEYE SCH (21:17)
[2019-06-08] MEDS: ATORVASTATIN 10 MG TABLET GT SCH (21:17)
[2019-06-08] MEDS: TAMSULOSIN 0.4 MG CAP.SR.24H GT SCH (21:17)
[2019-06-08] MEDS: INSULIN GLARGINE, 100 UNIT/ML CARTRIDGE SQ SCH (21:18)
[2019-06-09] MEDS: IPRATROPIUM NEB FS 0.5 MG/2.5 ML AMPUL.NEB IH SCH ×4 (01:41→19:30)
[2019-06-09] MEDS: ALBUTEROL FS 2.5 MG/0.5 ML VIAL.NEB NEB SCH ×4 (01:41→19:30)
[2019-06-09] MEDS: PROSTAT (PYXIS) 30 ML UDC GT SCH ×3 (05:30→20:34)
[2019-06-09] MEDS: REGLAN GT SCH ×3 (05:30→20:34)
[2019-06-09] MEDS: OMEPRAZOLE 20 MG CAPSULE.DR GT SCH (05:30)
[2019-06-09] MEDS: LACOSAMIDE ORAL SOLN 50 MG/5 ML UDC GT SCH ×2 (05:30→17:51)
[2019-06-09] MEDS: SIMETHICONE SUSP 40 MG/0.6 ML BOTTLE GT SCH ×3 (05:30→17:51)
[2019-06-09] MEDS: BLOOD SUGAR DIAGNOSTIC 1 EACH STRIP IN SCH ×3 (05:30→17:51)
[2019-06-09] MEDS: INSULIN REGULAR, HUMAN 100 UNIT/ML 10 ML VIAL SQ SCH ×4 (05:31→18:50)
--- NOTE | 2019-06-09 05:42 | NUR ---
RT PATIENT WAS RECEIVED ON COOL AEROSOL AND PLACED ON VENT ON NOTED VENT SETTINGS DURING MIDNIGHT AND BACK TO COOL AEROSOL AT 5AM PER MD ORDER.PATIENT STABLE THROUGHOUT THE SHIFT.HHN TREATMENT WAS GIVEN, NO ADVERSE REACTION NOTED. AIRWAY PATENT AND SECURED. WILL CONTINUE TO MONITOR. Addendum: 06/09/19 at 0544 by ABEBA SUAREZ RT Amended: Links added.
[2019-06-09 07:47] VITALS: BP 136/75
--- NOTE | 2019-06-09 08:15 | NUR ---
RT Pt is awake but does not follow commands, pt is on cool aerosol tolerating well. HHN tx tolerated well with no adverse reactions. No respiratory distress noted. Addendum: 06/09/19 at 1545 by MARCELO KENNEDY RT Amended: Links added.
[2019-06-09] MEDS: Z GUARD REMEDY 4 OZ OINT TP SCH ×2 (09:00→20:34)
[2019-06-09] MEDS: POVIDONE-IODINE OINT 28.4 GM TUBE TP SCH ×4 (09:00→20:34)
[2019-06-09] MEDS: VITAMINS A AND D 56.7 GM TUBE TP SCH ×2 (09:00→20:34)
[2019-06-09] MEDS: HYDROGEL DRESSING 90 GM TUBE TP SCH ×2 (09:00→20:34)
[2019-06-09] MEDS: BETADINE 5% CREAM TP SCH ×2 (09:00→20:34)
[2019-06-09] MEDS: HYDROGEN PEROXIDE 480 ML BOTTLE TP SCH ×2 (09:00→21:00)
[2019-06-09] MEDS: PETROLATUM,WHITE PACKET 5 GM PACKET TP SCH (09:00)
[2019-06-09] MEDS: DORZOLAMIDE OPTH 2% 10 ML BOTTLE EACHEYE SCH ×3 (09:15→17:50)
[2019-06-09] MEDS: ACIDOPHILUS/BULGARICUS 1 EACH TAB.CHEW GT SCH (09:15)
[2019-06-09] MEDS: POTASSIUM CHLORIDE 20MEQ TAB GT SCH (09:16)
[2019-06-09] MEDS: PredniSONE SOLUTION 5 MG/5 ML UDC GT SCH (09:16)
[2019-06-09] MEDS: ACETAMINOPHEN 650 MG/20 ML UDC- SA PATIENTS-PAIN ONLY GT SCH ×2 (09:17→20:34)
[2019-06-09] MEDS: FINASTERIDE (5 MG) 5 MG TABLET GT SCH (09:17)
[2019-06-09] MEDS: LINAGLIPTIN 5 MG TABLET GT SCH (09:17)
[2019-06-09] MEDS: ASCORBIC ACID 500 MG TABLET GT SCH ×2 (09:18→17:50)
[2019-06-09] MEDS: DOXYCYCLINE HYCLATE (100 MG) 100 MG TABLET GT SCH ×2 (09:18→20:34)
[2019-06-09] MEDS: CHLORHEXIDINE GLUCONATE 15 ML UDC MM SCH ×2 (09:18→20:34)
[2019-06-09] MEDS: VIT B CMPLX 3/FA/VIT C/BIOTIN 1 TAB TABLET GT SCH (09:29)
[2019-06-09] MEDS: NEPRO 1,000 ML BOTTLE GT PRN (17:52)
[2019-06-09 19:48] VITALS: BP 112/63
[2019-06-09] MEDS: TAMSULOSIN 0.4 MG CAP.SR.24H GT SCH (22:47)
[2019-06-09] MEDS: LATANOPROST EYE DROP 0.005% 2.5 ML BOTTLE EACHEYE SCH (22:47)
[2019-06-09] MEDS: ATORVASTATIN 10 MG TABLET GT SCH (22:47)
[2019-06-09] MEDS: INSULIN GLARGINE, 100 UNIT/ML CARTRIDGE SQ SCH (22:47)
[2019-06-10] MEDS: SIMETHICONE SUSP 40 MG/0.6 ML BOTTLE GT SCH ×5 (00:01→23:22)
[2019-06-10] MEDS: BLOOD SUGAR DIAGNOSTIC 1 EACH STRIP IN SCH ×5 (00:01→23:22)
[2019-06-10] MEDS: INSULIN REGULAR, HUMAN 100 UNIT/ML 10 ML VIAL SQ SCH ×5 (00:02→23:23)
[2019-06-10] MEDS: ALBUTEROL FS 2.5 MG/0.5 ML VIAL.NEB NEB SCH ×4 (02:02→20:18)
[2019-06-10] MEDS: IPRATROPIUM NEB FS 0.5 MG/2.5 ML AMPUL.NEB IH SCH ×4 (02:02→20:18)
[2019-06-10] MEDS: REGLAN GT SCH ×3 (05:24→21:41)
[2019-06-10] MEDS: LACOSAMIDE ORAL SOLN 50 MG/5 ML UDC GT SCH ×2 (05:24→17:14)
[2019-06-10] MEDS: OMEPRAZOLE 20 MG CAPSULE.DR GT SCH (05:24)
[2019-06-10] MEDS: PROSTAT (PYXIS) 30 ML UDC GT SCH ×3 (05:24→21:41)
[2019-06-10] MEDS: HYDROGEN PEROXIDE 480 ML BOTTLE TP SCH ×2 (07:24→21:50)
[2019-06-10 07:39] VITALS: BP 139/77
[2019-06-10] MEDS: ACIDOPHILUS/BULGARICUS 1 EACH TAB.CHEW GT SCH (08:49)
[2019-06-10] MEDS: DORZOLAMIDE OPTH 2% 10 ML BOTTLE EACHEYE SCH ×3 (08:49→17:06)
[2019-06-10] MEDS: POTASSIUM CHLORIDE 20MEQ TAB GT SCH (08:50)
[2019-06-10] MEDS: PredniSONE SOLUTION 5 MG/5 ML UDC GT SCH (08:50)
[2019-06-10] MEDS: FINASTERIDE (5 MG) 5 MG TABLET GT SCH (08:51)
[2019-06-10] MEDS: LINAGLIPTIN 5 MG TABLET GT SCH (08:52)
[2019-06-10] MEDS: ACETAMINOPHEN 650 MG/20 ML UDC- SA PATIENTS-PAIN ONLY GT SCH ×2 (08:52→21:42)
[2019-06-10] MEDS: CHLORHEXIDINE GLUCONATE 15 ML UDC MM SCH ×2 (08:54→21:42)
[2019-06-10] MEDS: ASCORBIC ACID 500 MG TABLET GT SCH ×2 (08:54→17:06)
[2019-06-10] MEDS: DOXYCYCLINE HYCLATE (100 MG) 100 MG TABLET GT SCH ×2 (08:54→21:42)
[2019-06-10] MEDS: VIT B CMPLX 3/FA/VIT C/BIOTIN 1 TAB TABLET GT SCH (08:55)
[2019-06-10] MEDS: BETADINE 5% CREAM TP SCH ×2 (09:00→22:30)
[2019-06-10] MEDS: Z GUARD REMEDY 4 OZ OINT TP SCH ×2 (09:00→22:30)
[2019-06-10] MEDS: POVIDONE-IODINE OINT 28.4 GM TUBE TP SCH ×4 (09:00→22:30)
[2019-06-10] MEDS: VITAMINS A AND D 56.7 GM TUBE TP SCH ×2 (09:00→22:30)
[2019-06-10] MEDS: HYDROGEL DRESSING 90 GM TUBE TP SCH ×2 (09:00→22:30)
[2019-06-10] MEDS: PETROLATUM,WHITE PACKET 5 GM PACKET TP SCH (09:00)
[2019-06-10 20:23] VITALS: BP 136/50
--- NOTE | 2019-06-10 20:34 | NUR ---
RT NOTES PT RECEIVED TRACHED ON COOL AEROSOL FIO2 28%. NO SIGNS OF RESP DISTRESS/SOB NOTED. AIRWAY PATENT AND SECURED. PT SUCTIONED. HHN TX GIVEN. NO ADVERSE REACTIONS NOTED. AMBUBAG AND SPARE TRACH AT HEAD OF BED. WILL CONT TO MONITOR. Addendum: 06/10/19 at 2209 by BLADIMIR MEEK RT Amended: Links added.
[2019-06-10] MEDS: ATORVASTATIN 10 MG TABLET GT SCH (21:42)
[2019-06-10] MEDS: TAMSULOSIN 0.4 MG CAP.SR.24H GT SCH (21:42)
[2019-06-10] MEDS: LATANOPROST EYE DROP 0.005% 2.5 ML BOTTLE EACHEYE SCH (21:42)
[2019-06-10] MEDS: INSULIN GLARGINE, 100 UNIT/ML CARTRIDGE SQ SCH (21:43)
[2019-06-11] MEDS: ALBUTEROL FS 2.5 MG/0.5 ML VIAL.NEB NEB SCH ×4 (01:38→20:05)
[2019-06-11] MEDS: IPRATROPIUM NEB FS 0.5 MG/2.5 ML AMPUL.NEB IH SCH ×4 (01:38→20:05)
[2019-06-11] MEDS: BLOOD SUGAR DIAGNOSTIC 1 EACH STRIP IN SCH ×4 (05:23→23:56)
[2019-06-11] MEDS: REGLAN GT SCH ×3 (05:23→21:12)
[2019-06-11] MEDS: SIMETHICONE SUSP 40 MG/0.6 ML BOTTLE GT SCH ×4 (05:23→23:56)
[2019-06-11] MEDS: OMEPRAZOLE 20 MG CAPSULE.DR GT SCH (05:23)
[2019-06-11] MEDS: LACOSAMIDE ORAL SOLN 50 MG/5 ML UDC GT SCH ×2 (05:23→17:12)
[2019-06-11] MEDS: PROSTAT (PYXIS) 30 ML UDC GT SCH ×3 (05:23→21:12)
[2019-06-11] MEDS: INSULIN REGULAR, HUMAN 100 UNIT/ML 10 ML VIAL SQ SCH ×4 (05:23→23:57)
[2019-06-11] MEDS: LINAGLIPTIN 5 MG TABLET GT SCH (09:00)
[2019-06-11] MEDS: DORZOLAMIDE OPTH 2% 10 ML BOTTLE EACHEYE SCH ×3 (09:00→17:12)
[2019-06-11] MEDS: ASCORBIC ACID 500 MG TABLET GT SCH ×2 (09:00→17:12)
[2019-06-11] MEDS: VIT B CMPLX 3/FA/VIT C/BIOTIN 1 TAB TABLET GT SCH (09:00)
[2019-06-11] MEDS: ACIDOPHILUS/BULGARICUS 1 EACH TAB.CHEW GT SCH (09:00)
[2019-06-11] MEDS: PredniSONE SOLUTION 5 MG/5 ML UDC GT SCH (09:00)
[2019-06-11] MEDS: FINASTERIDE (5 MG) 5 MG TABLET GT SCH (09:00)
[2019-06-11] MEDS: HYDROGEN PEROXIDE 480 ML BOTTLE TP SCH ×2 (09:00→20:36)
[2019-06-11] MEDS: POTASSIUM CHLORIDE 20MEQ TAB GT SCH (09:00)
--- NOTE | 2019-06-11 10:30 | NUR ---
Relayed wound culture result to Dr Garduno. No new order at this time.
[2019-06-11] MEDS: CHLORHEXIDINE GLUCONATE 15 ML UDC MM SCH ×2 (10:45→21:13)
[2019-06-11] MEDS: DOXYCYCLINE HYCLATE (100 MG) 100 MG TABLET GT SCH ×2 (10:55→21:13)
[2019-06-11] MEDS: ACETAMINOPHEN 650 MG/20 ML UDC- SA PATIENTS-PAIN ONLY GT SCH ×2 (10:55→21:13)
--- NOTE | 2019-06-11 11:03 | NUR ---
At 1045 am Patient returned from S/P hemodialysis treatment, no s/s of any complications noted. RT upper chest HD catheter site intact, no bleeding noted. Covered with dressing, clean and dry. Kept comfortable in bed. No s/s of respiratory distress noted.
[2019-06-11] MEDS: BETADINE 5% CREAM TP SCH ×2 (11:35→22:25)
[2019-06-11] MEDS: HYDROGEL DRESSING 90 GM TUBE TP SCH ×2 (11:35→22:25)
[2019-06-11] MEDS: POVIDONE-IODINE OINT 28.4 GM TUBE TP SCH ×4 (11:35→22:25)
[2019-06-11] MEDS: Z GUARD REMEDY 4 OZ OINT TP SCH ×2 (11:35→22:25)
[2019-06-11] MEDS: PETROLATUM,WHITE PACKET 5 GM PACKET TP SCH (11:35)
[2019-06-11] MEDS: VITAMINS A AND D 56.7 GM TUBE TP SCH ×2 (11:35→22:25)
[2019-06-11 11:38] VITALS: BP 141/72
--- NOTE | 2019-06-11 13:40 | NUR ---
[facility] recommended to give GT feeding Nepro 50 mL/Hr x 20 hours a day instead of 40 mL/hr. Dr Garduno ordered to increase feeding rate per recommendation. Notified son.
[2019-06-11 20:38] VITALS: BP 103/59
[2019-06-11] MEDS: TAMSULOSIN 0.4 MG CAP.SR.24H GT SCH (21:13)
[2019-06-11] MEDS: ATORVASTATIN 10 MG TABLET GT SCH (21:13)
[2019-06-11] MEDS: LATANOPROST EYE DROP 0.005% 2.5 ML BOTTLE EACHEYE SCH (21:13)
[2019-06-11] MEDS: INSULIN GLARGINE, 100 UNIT/ML CARTRIDGE SQ SCH (21:14)
--- NOTE | 2019-06-11 21:38 | NUR ---
RT NOTE PT RECEIVED ON COOL AEROSOL @ 28%. AMBU BAG/BACK UP TRACH @ BEDSIDE. TX GIVEN, NO ADVERSE REACTIONS NOTED. SX DONE, TRACH SECURED AND PATENT. NO SOB NOTED. WATER LEVEL GOOD. CONT. POX CONNECTED. WILL PLACE ON VENT @ 0000 PER MD ORDER. WILL MONITOR T/O SHIFT. Addendum: 06/11/19 at 2139 by GINGER YOU RT Amended: Links added.
[2019-06-12] MEDS: ALBUTEROL FS 2.5 MG/0.5 ML VIAL.NEB NEB SCH ×4 (02:05→19:32)
[2019-06-12] MEDS: IPRATROPIUM NEB FS 0.5 MG/2.5 ML AMPUL.NEB IH SCH ×4 (02:05→19:32)
[2019-06-12] MEDS: PROSTAT (PYXIS) 30 ML UDC GT SCH ×3 (05:00→21:37)
[2019-06-12] MEDS: REGLAN GT SCH ×3 (05:00→21:37)
[2019-06-12] MEDS: INSULIN REGULAR, HUMAN 100 UNIT/ML 10 ML VIAL SQ SCH ×4 (06:00→23:41)
[2019-06-12] MEDS: LACOSAMIDE ORAL SOLN 50 MG/5 ML UDC GT SCH ×2 (06:18→17:35)
[2019-06-12] MEDS: OMEPRAZOLE 20 MG CAPSULE.DR GT SCH (06:18)
[2019-06-12] MEDS: SIMETHICONE SUSP 40 MG/0.6 ML BOTTLE GT SCH ×4 (06:18→23:39)
[2019-06-12] MEDS: BLOOD SUGAR DIAGNOSTIC 1 EACH STRIP IN SCH ×4 (06:21→23:40)
--- NOTE | 2019-06-12 06:36 | NUR ---
RN NOTES Noted GT out. Received order from Dr. Garduno for [facility] for gt placement. Will endorse to oncoming shift. Addendum: 06/12/19 at 0639 by GUY SUAREZ RN Replaced GT, Bard Abbott ml
[2019-06-12] MEDS ORDERED: DIATR MEGLU/DIATRIZOATE SODIUM 30 ML BOTTLE (GASTROGRAPHIN) ONE (06:43)
[2019-06-12 07:36] VITALS: BP 109/51
--- NOTE | 2019-06-12 08:40 | NUR ---
Notified Dr. Garduno of KUB result, said that it is OK to use. GT feeding resumed.
[2019-06-12] MEDS: POVIDONE-IODINE OINT 28.4 GM TUBE TP SCH ×4 (09:00→22:30)
[2019-06-12] MEDS: HYDROGEL DRESSING 90 GM TUBE TP SCH ×2 (09:00→22:30)
[2019-06-12] MEDS: Z GUARD REMEDY 4 OZ OINT TP SCH ×2 (09:00→22:30)
[2019-06-12] MEDS: BETADINE 5% CREAM TP SCH ×2 (09:00→22:30)
[2019-06-12] MEDS: VITAMINS A AND D 56.7 GM TUBE TP SCH ×2 (09:00→22:30)
[2019-06-12] MEDS: HYDROGEN PEROXIDE 480 ML BOTTLE TP SCH ×2 (09:00→21:00)
[2019-06-12] MEDS: PETROLATUM,WHITE PACKET 5 GM PACKET TP SCH (09:00)
[2019-06-12] MEDS: DORZOLAMIDE OPTH 2% 10 ML BOTTLE EACHEYE SCH ×3 (09:26→17:35)
[2019-06-12] MEDS: ASCORBIC ACID 500 MG TABLET GT SCH ×2 (09:26→17:35)
[2019-06-12] MEDS: CHLORHEXIDINE GLUCONATE 15 ML UDC MM SCH ×2 (09:26→21:37)
[2019-06-12] MEDS: LINAGLIPTIN 5 MG TABLET GT SCH (09:26)
[2019-06-12] MEDS: POTASSIUM CHLORIDE 20MEQ TAB GT SCH (09:26)
[2019-06-12] MEDS: FINASTERIDE (5 MG) 5 MG TABLET GT SCH (09:26)
[2019-06-12] MEDS: PredniSONE SOLUTION 5 MG/5 ML UDC GT SCH (09:26)
[2019-06-12] MEDS: ACETAMINOPHEN 650 MG/20 ML UDC- SA PATIENTS-PAIN ONLY GT SCH ×2 (09:26→21:37)
[2019-06-12] MEDS: VIT B CMPLX 3/FA/VIT C/BIOTIN 1 TAB TABLET GT SCH (09:26)
[2019-06-12] MEDS: DOXYCYCLINE HYCLATE (100 MG) 100 MG TABLET GT SCH ×2 (09:26→21:37)
[2019-06-12] MEDS: ACIDOPHILUS/BULGARICUS 1 EACH TAB.CHEW GT SCH (09:26)
[2019-06-12 20:36] VITALS: BP 133/76
[2019-06-12] MEDS: LATANOPROST EYE DROP 0.005% 2.5 ML BOTTLE EACHEYE SCH (21:37)
[2019-06-12] MEDS: TAMSULOSIN 0.4 MG CAP.SR.24H GT SCH (21:38)
[2019-06-12] MEDS: ATORVASTATIN 10 MG TABLET GT SCH (21:38)
[2019-06-12] MEDS: INSULIN GLARGINE, 100 UNIT/ML CARTRIDGE SQ SCH (21:38)
[2019-06-13] MEDS: ALBUTEROL FS 2.5 MG/0.5 ML VIAL.NEB NEB SCH ×4 (01:08→19:45)
[2019-06-13] MEDS: IPRATROPIUM NEB FS 0.5 MG/2.5 ML AMPUL.NEB IH SCH ×4 (01:08→19:45)
[2019-06-13] MEDS: LACOSAMIDE ORAL SOLN 50 MG/5 ML UDC GT SCH ×2 (05:21→17:41)
[2019-06-13] MEDS: BLOOD SUGAR DIAGNOSTIC 1 EACH STRIP IN SCH ×4 (05:21→23:28)
[2019-06-13] MEDS: SIMETHICONE SUSP 40 MG/0.6 ML BOTTLE GT SCH ×4 (05:21→23:28)
[2019-06-13] MEDS: OMEPRAZOLE 20 MG CAPSULE.DR GT SCH (05:21)
[2019-06-13] MEDS: REGLAN GT SCH ×3 (05:21→20:47)
[2019-06-13] MEDS: PROSTAT (PYXIS) 30 ML UDC GT SCH ×3 (05:21→20:47)
[2019-06-13] MEDS: INSULIN REGULAR, HUMAN 100 UNIT/ML 10 ML VIAL SQ SCH ×4 (05:23→23:29)
--- NOTE | 2019-06-13 05:51 | NUR ---
Patient left for dialysis to [facility] transported by [facility] ambulance crew.Stable condition and vital signs.
[2019-06-13] MEDS: VIT B CMPLX 3/FA/VIT C/BIOTIN 1 TAB TABLET GT SCH (09:00)
[2019-06-13] MEDS: FINASTERIDE (5 MG) 5 MG TABLET GT SCH (09:00)
[2019-06-13] MEDS: HYDROGEN PEROXIDE 480 ML BOTTLE TP SCH ×2 (09:00→20:48)
[2019-06-13] MEDS: POTASSIUM CHLORIDE 20MEQ TAB GT SCH (09:00)
[2019-06-13] MEDS: ACIDOPHILUS/BULGARICUS 1 EACH TAB.CHEW GT SCH (10:50)
[2019-06-13] MEDS: ASCORBIC ACID 500 MG TABLET GT SCH ×2 (10:50→17:41)
[2019-06-13] MEDS: DORZOLAMIDE OPTH 2% 10 ML BOTTLE EACHEYE SCH ×3 (10:50→17:41)
[2019-06-13] MEDS: LINAGLIPTIN 5 MG TABLET GT SCH (10:50)
[2019-06-13] MEDS: DOXYCYCLINE HYCLATE (100 MG) 100 MG TABLET GT SCH ×2 (10:50→20:48)
[2019-06-13] MEDS: PredniSONE SOLUTION 5 MG/5 ML UDC GT SCH (10:50)
[2019-06-13] MEDS: ACETAMINOPHEN 650 MG/20 ML UDC- SA PATIENTS-PAIN ONLY GT SCH ×2 (10:52→20:48)
[2019-06-13] MEDS: POVIDONE-IODINE OINT 28.4 GM TUBE TP SCH ×4 (11:00→20:48)
[2019-06-13] MEDS: CHLORHEXIDINE GLUCONATE 15 ML UDC MM SCH ×2 (11:00→20:48)
[2019-06-13] MEDS: PETROLATUM,WHITE PACKET 5 GM PACKET TP SCH (11:00)
[2019-06-13] MEDS: HYDROGEL DRESSING 90 GM TUBE TP SCH ×2 (11:00→20:48)
[2019-06-13] MEDS: BETADINE 5% CREAM TP SCH ×2 (11:00→20:48)
[2019-06-13] MEDS: Z GUARD REMEDY 4 OZ OINT TP SCH ×2 (11:00→20:48)
[2019-06-13] MEDS: VITAMINS A AND D 56.7 GM TUBE TP SCH ×2 (11:00→20:48)
--- NOTE | 2019-06-13 15:00 | NUR ---
Relayed right big toe, right hand wound culture results to Dr Swenson. Referred MDRO sputum and MRSA nares to him. He ordered to reculture for clearance. Notified son.
[2019-06-13 20:28] VITALS: BP 133/77
--- NOTE | 2019-06-13 20:33 | NUR ---
Seen and examined by BRANDO Pineda no new order.
[2019-06-13] MEDS: ATORVASTATIN 10 MG TABLET GT SCH (21:35)
[2019-06-13] MEDS: TAMSULOSIN 0.4 MG CAP.SR.24H GT SCH (21:35)
[2019-06-13] MEDS: LATANOPROST EYE DROP 0.005% 2.5 ML BOTTLE EACHEYE SCH (21:35)
[2019-06-13] MEDS: INSULIN GLARGINE, 100 UNIT/ML CARTRIDGE SQ SCH (21:36)
--- NOTE | 2019-06-14 00:10 | NUR ---
Pt rec'd trached on CA aerosol @ 28% fio2. [facility] No resp distress or sob noted. trach is patent and secured. Alarms are set and audible. Vent plugged into red outlet. Ambu bag bedside. Will continue to monitor Addendum: 06/14/19 at 0010 by PAUL ALMARAZ RT Amended: Links added.
[2019-06-14] MEDS: ALBUTEROL FS 2.5 MG/0.5 ML VIAL.NEB NEB SCH ×4 (01:50→19:56)
[2019-06-14] MEDS: IPRATROPIUM NEB FS 0.5 MG/2.5 ML AMPUL.NEB IH SCH ×4 (01:50→19:56)
[2019-06-14] MEDS: LACOSAMIDE ORAL SOLN 50 MG/5 ML UDC GT SCH ×2 (05:12→17:51)
[2019-06-14] MEDS: REGLAN GT SCH ×3 (05:12→20:55)
[2019-06-14] MEDS: SIMETHICONE SUSP 40 MG/0.6 ML BOTTLE GT SCH ×4 (05:12→23:51)
[2019-06-14] MEDS: OMEPRAZOLE 20 MG CAPSULE.DR GT SCH (05:12)
[2019-06-14] MEDS: PROSTAT (PYXIS) 30 ML UDC GT SCH ×3 (05:12→20:55)
[2019-06-14] MEDS: INSULIN REGULAR, HUMAN 100 UNIT/ML 10 ML VIAL SQ SCH ×4 (05:40→23:52)
[2019-06-14] MEDS: BLOOD SUGAR DIAGNOSTIC 1 EACH STRIP IN SCH ×4 (05:40→23:51)
[2019-06-14 07:45] VITALS: BP 119/76
[2019-06-14] MEDS ORDERED: predniSONE 10 MG TABLET GT SCH (09:00)
[2019-06-14] MEDS: HYDROGEN PEROXIDE 480 ML BOTTLE TP SCH ×2 (09:30→20:55)
[2019-06-14] MEDS: VIT B CMPLX 3/FA/VIT C/BIOTIN 1 TAB TABLET GT SCH (09:48)
[2019-06-14] MEDS: ACIDOPHILUS/BULGARICUS 1 EACH TAB.CHEW GT SCH (09:48)
[2019-06-14] MEDS: DORZOLAMIDE OPTH 2% 10 ML BOTTLE EACHEYE SCH ×3 (09:48→17:50)
[2019-06-14] MEDS: POTASSIUM CHLORIDE 20MEQ TAB GT SCH (09:49)
[2019-06-14] MEDS: FINASTERIDE (5 MG) 5 MG TABLET GT SCH (09:50)
[2019-06-14] MEDS: PredniSONE SOLUTION 5 MG/5 ML UDC GT SCH (09:50)
[2019-06-14] MEDS: ACETAMINOPHEN 650 MG/20 ML UDC- SA PATIENTS-PAIN ONLY GT SCH ×2 (09:51→20:55)
[2019-06-14] MEDS: ASCORBIC ACID 500 MG TABLET GT SCH ×2 (09:51→17:50)
[2019-06-14] MEDS: LINAGLIPTIN 5 MG TABLET GT SCH (09:51)
[2019-06-14] MEDS: CHLORHEXIDINE GLUCONATE 15 ML UDC MM SCH ×2 (09:51→20:55)
[2019-06-14] MEDS: DOXYCYCLINE HYCLATE (100 MG) 100 MG TABLET GT SCH ×2 (09:51→20:55)
[2019-06-14] MEDS: VITAMINS A AND D 56.7 GM TUBE TP SCH ×2 (10:30→20:55)
[2019-06-14] MEDS: PETROLATUM,WHITE PACKET 5 GM PACKET TP SCH (10:30)
[2019-06-14] MEDS: HYDROGEL DRESSING 90 GM TUBE TP SCH ×2 (10:30→20:55)
[2019-06-14] MEDS: BETADINE 5% CREAM TP SCH ×2 (10:30→20:55)
[2019-06-14] MEDS: POVIDONE-IODINE OINT 28.4 GM TUBE TP SCH ×4 (10:30→20:55)
[2019-06-14] MEDS: Z GUARD REMEDY 4 OZ OINT TP SCH ×2 (10:30→20:55)
[2019-06-14] MEDS: NEPRO 1,000 ML BOTTLE GT PRN (16:17)
--- NOTE | 2019-06-14 17:19 | NUR ---
Pt receive stable on 28% FiO2 cool aerosol via T-bar, trach patent and secured, all tx given and no adverse reaction observe. Will continue to monitor. Addendum: 06/14/19 at 1721 by TORSTEN STARKEY RT Amended: Links added.
--- NOTE | 2019-06-14 18:53 | NUR ---
Resident's culture result in the nares, R hand and R great toe negative for MRSA, awaiting for ID to review result so isolation can be discontinue. Endorsed.
--- NOTE | 2019-06-14 20:06 | NUR ---
RT NOTE: RECEIVED TRACH PT ON COOL AEROSOL. WILL PLACE PT ON VENT AT MIDNIGHT PER MD ORDER. TRACH IS PATENT AND SECURED. TRACH CARE DONE. EDUCATION REPORTER DONE. Q6 BREATHING TX GIVEN WITH NO ADVERSE REACTION NOTED. SX DONE PRN. NO RESP DISTRESS AT THIS TIME. WILL CONT TO MONITOR PT. Addendum: 06/15/19 at 0519 by RAMYA HARKINS RT Amended: Links added.
[2019-06-14 20:25] VITALS: BP 141/80
[2019-06-14] MEDS: TAMSULOSIN 0.4 MG CAP.SR.24H GT SCH (21:09)
[2019-06-14] MEDS: INSULIN GLARGINE, 100 UNIT/ML CARTRIDGE SQ SCH (21:09)
[2019-06-14] MEDS: ATORVASTATIN 10 MG TABLET GT SCH (21:09)
[2019-06-14] MEDS: LATANOPROST EYE DROP 0.005% 2.5 ML BOTTLE EACHEYE SCH (21:09)
[2019-06-15] MEDS: ALBUTEROL FS 2.5 MG/0.5 ML VIAL.NEB NEB SCH ×4 (01:53→19:25)
[2019-06-15] MEDS: IPRATROPIUM NEB FS 0.5 MG/2.5 ML AMPUL.NEB IH SCH ×4 (01:53→19:25)
[2019-06-15] MEDS: LACOSAMIDE ORAL SOLN 50 MG/5 ML UDC GT SCH ×2 (05:22→17:19)
[2019-06-15] MEDS: BLOOD SUGAR DIAGNOSTIC 1 EACH STRIP IN SCH ×4 (05:22→23:15)
[2019-06-15] MEDS: OMEPRAZOLE 20 MG CAPSULE.DR GT SCH (05:22)
[2019-06-15] MEDS: INSULIN REGULAR, HUMAN 100 UNIT/ML 10 ML VIAL SQ SCH ×4 (05:22→23:16)
[2019-06-15] MEDS: PROSTAT (PYXIS) 30 ML UDC GT SCH ×3 (05:22→20:29)
[2019-06-15] MEDS: SIMETHICONE SUSP 40 MG/0.6 ML BOTTLE GT SCH ×4 (05:22→23:15)
[2019-06-15] MEDS: REGLAN GT SCH ×3 (05:22→20:29)
--- NOTE | 2019-06-15 05:50 | NUR ---
Pt picked up by ambulance for HD to [facility].Stable condition.
[2019-06-15] MEDS: DORZOLAMIDE OPTH 2% 10 ML BOTTLE EACHEYE SCH ×3 (09:00→16:57)
[2019-06-15] MEDS: HYDROGEN PEROXIDE 480 ML BOTTLE TP SCH ×2 (09:03→19:25)
[2019-06-15] MEDS: ASCORBIC ACID 500 MG TABLET GT SCH ×2 (11:05→16:57)
[2019-06-15] MEDS: VIT B CMPLX 3/FA/VIT C/BIOTIN 1 TAB TABLET GT SCH (11:05)
[2019-06-15] MEDS: FINASTERIDE (5 MG) 5 MG TABLET GT SCH (11:05)
[2019-06-15] MEDS: PredniSONE SOLUTION 5 MG/5 ML UDC GT SCH (11:05)
[2019-06-15] MEDS: DOXYCYCLINE HYCLATE (100 MG) 100 MG TABLET GT SCH ×2 (11:05→20:30)
[2019-06-15] MEDS: ACIDOPHILUS/BULGARICUS 1 EACH TAB.CHEW GT SCH (11:05)
[2019-06-15] MEDS: ACETAMINOPHEN 650 MG/20 ML UDC- SA PATIENTS-PAIN ONLY GT SCH ×2 (11:05→20:30)
[2019-06-15] MEDS: LINAGLIPTIN 5 MG TABLET GT SCH (11:05)
[2019-06-15] MEDS: POTASSIUM CHLORIDE 20MEQ TAB GT SCH (11:05)
[2019-06-15] MEDS: CHLORHEXIDINE GLUCONATE 15 ML UDC MM SCH ×2 (12:00→20:30)
[2019-06-15] MEDS: HYDROGEL DRESSING 90 GM TUBE TP SCH ×2 (12:30→20:30)
[2019-06-15] MEDS: Z GUARD REMEDY 4 OZ OINT TP SCH ×2 (12:30→20:31)
[2019-06-15] MEDS: BETADINE 5% CREAM TP SCH ×2 (12:30→20:30)
[2019-06-15] MEDS: POVIDONE-IODINE OINT 28.4 GM TUBE TP SCH ×4 (12:30→20:30)
[2019-06-15] MEDS: PETROLATUM,WHITE PACKET 5 GM PACKET TP SCH (12:30)
[2019-06-15] MEDS: VITAMINS A AND D 56.7 GM TUBE TP SCH ×2 (12:30→20:31)
[2019-06-15 12:40] VITALS: BP 113/53
--- NOTE | 2019-06-15 15:36 | NUR ---
Seen and examined by DUST MILL OPERATOR Tereza Hanks, reviewed wound culture results for isolation clearance, She said she discussed result with Dr. Ng, accreditation coordinator for Dr. Swenson and said to wait till Monday to discuss result with infection control nurse regarding discontinuation of isolation. Endorsed. Resident's son Dr. Johns informed.
[2019-06-15] MEDS: NEPRO 1,000 ML BOTTLE GT PRN (18:57)
[2019-06-15 20:26] VITALS: BP 120/61
[2019-06-15] MEDS: INSULIN GLARGINE, 100 UNIT/ML CARTRIDGE SQ SCH (21:28)
[2019-06-15] MEDS: ATORVASTATIN 10 MG TABLET GT SCH (21:28)
[2019-06-15] MEDS: LATANOPROST EYE DROP 0.005% 2.5 ML BOTTLE EACHEYE SCH (21:28)
[2019-06-15] MEDS: TAMSULOSIN 0.4 MG CAP.SR.24H GT SCH (21:28)
[2019-06-16] MEDS: IPRATROPIUM NEB FS 0.5 MG/2.5 ML AMPUL.NEB IH SCH ×4 (00:40→19:48)
[2019-06-16] MEDS: ALBUTEROL FS 2.5 MG/0.5 ML VIAL.NEB NEB SCH ×4 (01:30→19:48)
--- NOTE | 2019-06-16 04:06 | NUR ---
RT NOTE PT TONY. VENT AND TX WELL. WILL CONTINUE WITH CURRENT PLAN OF CARE Addendum: 06/16/19 at 0407 by ROBBIN CLINTON RT Amended: Links added.
[2019-06-16] MEDS: PROSTAT (PYXIS) 30 ML UDC GT SCH ×3 (05:23→21:34)
[2019-06-16] MEDS: SIMETHICONE SUSP 40 MG/0.6 ML BOTTLE GT SCH ×3 (05:23→17:25)
[2019-06-16] MEDS: OMEPRAZOLE 20 MG CAPSULE.DR GT SCH (05:23)
[2019-06-16] MEDS: REGLAN GT SCH ×3 (05:23→21:33)
[2019-06-16] MEDS: LACOSAMIDE ORAL SOLN 50 MG/5 ML UDC GT SCH ×2 (05:24→17:25)
[2019-06-16] MEDS: BLOOD SUGAR DIAGNOSTIC 1 EACH STRIP IN SCH ×3 (05:37→17:25)
[2019-06-16] MEDS: INSULIN REGULAR, HUMAN 100 UNIT/ML 10 ML VIAL SQ SCH ×3 (05:38→17:26)
[2019-06-16 07:52] VITALS: BP 113/62
[2019-06-16] MEDS: HYDROGEN PEROXIDE 480 ML BOTTLE TP SCH ×2 (09:00→19:48)
[2019-06-16] MEDS: ACIDOPHILUS/BULGARICUS 1 EACH TAB.CHEW GT SCH (09:40)
[2019-06-16] MEDS: DORZOLAMIDE OPTH 2% 10 ML BOTTLE EACHEYE SCH ×3 (09:40→16:38)
[2019-06-16] MEDS: LINAGLIPTIN 5 MG TABLET GT SCH (09:40)
[2019-06-16] MEDS: ASCORBIC ACID 500 MG TABLET GT SCH ×2 (09:40→16:38)
[2019-06-16] MEDS: POTASSIUM CHLORIDE 20MEQ TAB GT SCH (09:40)
[2019-06-16] MEDS: VIT B CMPLX 3/FA/VIT C/BIOTIN 1 TAB TABLET GT SCH (09:40)
[2019-06-16] MEDS: DOXYCYCLINE HYCLATE (100 MG) 100 MG TABLET GT SCH ×2 (09:40→21:34)
[2019-06-16] MEDS: PredniSONE SOLUTION 5 MG/5 ML UDC GT SCH (09:40)
[2019-06-16] MEDS: FINASTERIDE (5 MG) 5 MG TABLET GT SCH (09:40)
[2019-06-16] MEDS: ACETAMINOPHEN 650 MG/20 ML UDC- SA PATIENTS-PAIN ONLY GT SCH ×2 (09:40→21:34)
[2019-06-16] MEDS: BETADINE 5% CREAM TP SCH ×2 (09:41→21:34)
[2019-06-16] MEDS: POVIDONE-IODINE OINT 28.4 GM TUBE TP SCH ×4 (09:41→21:34)
[2019-06-16] MEDS: HYDROGEL DRESSING 90 GM TUBE TP SCH ×2 (09:41→21:34)
[2019-06-16] MEDS: CHLORHEXIDINE GLUCONATE 15 ML UDC MM SCH ×2 (09:41→21:34)
[2019-06-16] MEDS: Z GUARD REMEDY 4 OZ OINT TP SCH ×2 (09:42→21:34)
[2019-06-16] MEDS: VITAMINS A AND D 56.7 GM TUBE TP SCH ×2 (09:43→21:34)
[2019-06-16] MEDS: PETROLATUM,WHITE PACKET 5 GM PACKET TP SCH (09:43)
--- NOTE | 2019-06-16 10:00 | NUR ---
Seen and examined by Dr. Garduno with new order to start Metoprolol tart 12.5 mg q 12 hrs for tachycardia. Will continue to monitor.
[2019-06-16] MEDS: NEPRO 1,000 ML BOTTLE GT PRN (16:31)
[2019-06-16 19:58] VITALS: BP 103/70
[2019-06-16] MEDS: METOPROLOL TARTRATE 25 MG TABLET GT SCH (21:34)
[2019-06-16] MEDS: LATANOPROST EYE DROP 0.005% 2.5 ML BOTTLE EACHEYE SCH (21:34)
[2019-06-16] MEDS: TAMSULOSIN 0.4 MG CAP.SR.24H GT SCH (21:34)
[2019-06-16] MEDS: ATORVASTATIN 10 MG TABLET GT SCH (21:34)
[2019-06-16] MEDS: INSULIN GLARGINE, 100 UNIT/ML CARTRIDGE SQ SCH (21:35)
[2019-06-17] MEDS: SIMETHICONE SUSP 40 MG/0.6 ML BOTTLE GT SCH ×5 (00:26→23:09)
[2019-06-17] MEDS: BLOOD SUGAR DIAGNOSTIC 1 EACH STRIP IN SCH ×5 (00:26→23:09)
[2019-06-17] MEDS: INSULIN REGULAR, HUMAN 100 UNIT/ML 10 ML VIAL SQ SCH ×5 (00:27→23:10)
[2019-06-17] MEDS: ALBUTEROL FS 2.5 MG/0.5 ML VIAL.NEB NEB SCH ×4 (01:28→19:30)
[2019-06-17] MEDS: IPRATROPIUM NEB FS 0.5 MG/2.5 ML AMPUL.NEB IH SCH ×4 (01:28→19:36)
[2019-06-17] MEDS: PROSTAT (PYXIS) 30 ML UDC GT SCH ×3 (05:29→21:21)
[2019-06-17] MEDS: REGLAN GT SCH ×3 (05:29→21:20)
[2019-06-17] MEDS: LACOSAMIDE ORAL SOLN 50 MG/5 ML UDC GT SCH ×2 (05:30→17:07)
[2019-06-17] MEDS: OMEPRAZOLE 20 MG CAPSULE.DR GT SCH (05:30)
[2019-06-17 07:54] VITALS: BP 132/81
[2019-06-17] MEDS: DORZOLAMIDE OPTH 2% 10 ML BOTTLE EACHEYE SCH ×3 (08:46→16:39)
[2019-06-17] MEDS: ACIDOPHILUS/BULGARICUS 1 EACH TAB.CHEW GT SCH (08:47)
[2019-06-17] MEDS: METOPROLOL TARTRATE 25 MG TABLET GT SCH ×2 (08:48→21:21)
[2019-06-17] MEDS: POTASSIUM CHLORIDE 20MEQ TAB GT SCH (08:49)
[2019-06-17] MEDS: FINASTERIDE (5 MG) 5 MG TABLET GT SCH (08:50)
[2019-06-17] MEDS: PredniSONE SOLUTION 5 MG/5 ML UDC GT SCH (08:50)
[2019-06-17] MEDS: ACETAMINOPHEN 650 MG/20 ML UDC- SA PATIENTS-PAIN ONLY GT SCH ×2 (08:51→21:21)
[2019-06-17] MEDS: LINAGLIPTIN 5 MG TABLET GT SCH (08:51)
[2019-06-17] MEDS: DOXYCYCLINE HYCLATE (100 MG) 100 MG TABLET GT SCH ×2 (08:52→21:21)
[2019-06-17] MEDS: CHLORHEXIDINE GLUCONATE 15 ML UDC MM SCH ×2 (08:52→21:21)
[2019-06-17] MEDS: ASCORBIC ACID 500 MG TABLET GT SCH ×2 (08:52→16:40)
[2019-06-17] MEDS: HYDROGEN PEROXIDE 480 ML BOTTLE TP SCH ×2 (09:00→21:15)
[2019-06-17] MEDS: VITAMINS A AND D 56.7 GM TUBE TP SCH ×2 (09:00→22:05)
[2019-06-17] MEDS: BETADINE 5% CREAM TP SCH ×2 (09:30→22:05)
[2019-06-17] MEDS: PETROLATUM,WHITE PACKET 5 GM PACKET TP SCH (09:30)
[2019-06-17] MEDS: POVIDONE-IODINE OINT 28.4 GM TUBE TP SCH ×4 (09:30→22:05)
[2019-06-17] MEDS: Z GUARD REMEDY 4 OZ OINT TP SCH ×2 (09:30→22:05)
[2019-06-17] MEDS: HYDROGEL DRESSING 90 GM TUBE TP SCH ×2 (09:30→22:05)
[2019-06-17] MEDS: VIT B CMPLX 3/FA/VIT C/BIOTIN 1 TAB TABLET GT SCH (09:55)
--- NOTE | 2019-06-17 12:18 | NUR ---
Left message for Infection Control Nurse Divya to re-evaluate pt's isolation.
--- NOTE | 2019-06-17 16:29 | NUR ---
CHANI left voicemail to patient's son, Nat to inform [phone] family that the Interdisciplinary Plan of Care Conference will be taking place this 06/21/19 and that they may attend or participate via phone conference.
[2019-06-17] MEDS: NEPRO 1,000 ML BOTTLE GT PRN (16:47)
[2019-06-17 19:44] VITALS: BP 134/75
[2019-06-17] MEDS: INSULIN GLARGINE, 100 UNIT/ML CARTRIDGE SQ SCH (21:16)
--- NOTE | 2019-06-17 21:18 | NUR ---
RT NOTE PT HAS NO ALBUTEROL IN STOCK. ALBUTEROL ORDERED AT 2100.
[2019-06-17] MEDS: ATORVASTATIN 10 MG TABLET GT SCH (21:21)
[2019-06-17] MEDS: LATANOPROST EYE DROP 0.005% 2.5 ML BOTTLE EACHEYE SCH (21:21)
[2019-06-17] MEDS: TAMSULOSIN 0.4 MG CAP.SR.24H GT SCH (21:21)
[2019-06-18] MEDS: IPRATROPIUM NEB FS 0.5 MG/2.5 ML AMPUL.NEB IH SCH ×4 (00:53→20:21)
[2019-06-18] MEDS: ALBUTEROL FS 2.5 MG/0.5 ML VIAL.NEB NEB SCH ×4 (00:53→20:21)
[2019-06-18] MEDS: REGLAN GT SCH ×3 (05:14→20:56)
[2019-06-18] MEDS: OMEPRAZOLE 20 MG CAPSULE.DR GT SCH (05:14)
[2019-06-18] MEDS: SIMETHICONE SUSP 40 MG/0.6 ML BOTTLE GT SCH ×4 (05:14→23:21)
[2019-06-18] MEDS: LACOSAMIDE ORAL SOLN 50 MG/5 ML UDC GT SCH ×2 (05:14→17:29)
[2019-06-18] MEDS: BLOOD SUGAR DIAGNOSTIC 1 EACH STRIP IN SCH ×4 (05:14→23:21)
[2019-06-18] MEDS: PROSTAT (PYXIS) 30 ML UDC GT SCH ×3 (05:14→20:57)
[2019-06-18] MEDS: INSULIN REGULAR, HUMAN 100 UNIT/ML 10 ML VIAL SQ SCH ×4 (05:15→23:22)
--- NOTE | 2019-06-18 08:45 | NUR ---
Received order to DC contact isolation for MRSA right great toe, MRSA right hand wound, MRSA nares, droplet isolation MDRO sputum. Cultures were negative. Infection Control nurse Divya reviewed cultures and recommended to DC isolations. Notified pt's son.
[2019-06-18] MEDS: DORZOLAMIDE OPTH 2% 10 ML BOTTLE EACHEYE SCH ×3 (09:00→16:41)
[2019-06-18] MEDS: LINAGLIPTIN 5 MG TABLET GT SCH (09:00)
[2019-06-18] MEDS: METOPROLOL TARTRATE 25 MG TABLET GT SCH ×2 (09:00→20:57)
[2019-06-18] MEDS: ACETAMINOPHEN 650 MG/20 ML UDC- SA PATIENTS-PAIN ONLY GT SCH ×2 (09:00→20:58)
[2019-06-18] MEDS: PredniSONE SOLUTION 5 MG/5 ML UDC GT SCH (09:00)
[2019-06-18] MEDS: VIT B CMPLX 3/FA/VIT C/BIOTIN 1 TAB TABLET GT SCH (09:00)
[2019-06-18] MEDS: HYDROGEL DRESSING 90 GM TUBE TP SCH ×2 (09:00→21:47)
[2019-06-18] MEDS: FINASTERIDE (5 MG) 5 MG TABLET GT SCH (09:00)
[2019-06-18] MEDS: ASCORBIC ACID 500 MG TABLET GT SCH ×2 (09:00→16:41)
[2019-06-18] MEDS: BETADINE 5% CREAM TP SCH ×2 (09:00→21:48)
[2019-06-18] MEDS: HYDROGEN PEROXIDE 480 ML BOTTLE TP SCH ×2 (09:00→20:21)
[2019-06-18] MEDS: Z GUARD REMEDY 4 OZ OINT TP SCH ×2 (09:00→21:48)
[2019-06-18] MEDS: ACIDOPHILUS/BULGARICUS 1 EACH TAB.CHEW GT SCH (09:00)
[2019-06-18] MEDS: DOXYCYCLINE HYCLATE (100 MG) 100 MG TABLET GT SCH ×2 (09:00→20:58)
[2019-06-18] MEDS: PETROLATUM,WHITE PACKET 5 GM PACKET TP SCH (09:00)
[2019-06-18] MEDS: POVIDONE-IODINE OINT 28.4 GM TUBE TP SCH ×4 (09:00→21:47)
[2019-06-18] MEDS: CHLORHEXIDINE GLUCONATE 15 ML UDC MM SCH ×2 (09:00→20:58)
[2019-06-18] MEDS: VITAMINS A AND D 56.7 GM TUBE TP SCH ×2 (09:00→21:48)
[2019-06-18] MEDS: POTASSIUM CHLORIDE 20MEQ TAB GT SCH (09:00)
[2019-06-18] MEDS: NEPRO 1,000 ML BOTTLE GT PRN (17:29)
[2019-06-18 20:05] VITALS: BP 137/79
[2019-06-18] MEDS: LATANOPROST EYE DROP 0.005% 2.5 ML BOTTLE EACHEYE SCH (21:45)
[2019-06-18] MEDS: TAMSULOSIN 0.4 MG CAP.SR.24H GT SCH (21:45)
[2019-06-18] MEDS: ATORVASTATIN 10 MG TABLET GT SCH (21:45)
[2019-06-18] MEDS: INSULIN GLARGINE, 100 UNIT/ML CARTRIDGE SQ SCH (21:47)
[2019-06-19] MEDS: IPRATROPIUM NEB FS 0.5 MG/2.5 ML AMPUL.NEB IH SCH ×4 (02:14→20:09)
[2019-06-19] MEDS: ALBUTEROL FS 2.5 MG/0.5 ML VIAL.NEB NEB SCH ×4 (02:14→20:09)
[2019-06-19] MEDS: LACOSAMIDE ORAL SOLN 50 MG/5 ML UDC GT SCH ×2 (05:13→17:07)
[2019-06-19] MEDS: OMEPRAZOLE 20 MG CAPSULE.DR GT SCH (05:13)
[2019-06-19] MEDS: REGLAN GT SCH ×3 (05:13→20:59)
[2019-06-19] MEDS: SIMETHICONE SUSP 40 MG/0.6 ML BOTTLE GT SCH ×4 (05:13→23:25)
[2019-06-19] MEDS: PROSTAT (PYXIS) 30 ML UDC GT SCH ×3 (05:13→20:59)
[2019-06-19] MEDS: INSULIN REGULAR, HUMAN 100 UNIT/ML 10 ML VIAL SQ SCH ×4 (05:55→23:26)
[2019-06-19] MEDS: BLOOD SUGAR DIAGNOSTIC 1 EACH STRIP IN SCH ×4 (05:55→23:25)
[2019-06-19 07:56] VITALS: BP 111/70
[2019-06-19] MEDS: HYDROGEN PEROXIDE 480 ML BOTTLE TP SCH ×2 (08:24→21:00)
[2019-06-19] MEDS: PredniSONE SOLUTION 5 MG/5 ML UDC GT SCH (09:00)
[2019-06-19] MEDS: ACIDOPHILUS/BULGARICUS 1 EACH TAB.CHEW GT SCH (09:00)
[2019-06-19] MEDS: Z GUARD REMEDY 4 OZ OINT TP SCH ×2 (09:00→21:51)
[2019-06-19] MEDS: DOXYCYCLINE HYCLATE (100 MG) 100 MG TABLET GT SCH ×2 (09:00→21:00)
[2019-06-19] MEDS: LINAGLIPTIN 5 MG TABLET GT SCH (09:00)
[2019-06-19] MEDS: METOPROLOL TARTRATE 25 MG TABLET GT SCH ×2 (09:00→20:59)
[2019-06-19] MEDS: PETROLATUM,WHITE PACKET 5 GM PACKET TP SCH (09:00)
[2019-06-19] MEDS: VITAMINS A AND D 56.7 GM TUBE TP SCH ×2 (09:00→21:51)
[2019-06-19] MEDS: DORZOLAMIDE OPTH 2% 10 ML BOTTLE EACHEYE SCH ×3 (09:00→17:07)
[2019-06-19] MEDS: POVIDONE-IODINE OINT 28.4 GM TUBE TP SCH ×4 (09:00→21:51)
[2019-06-19] MEDS: HYDROGEL DRESSING 90 GM TUBE TP SCH ×2 (09:00→21:51)
[2019-06-19] MEDS: ACETAMINOPHEN 650 MG/20 ML UDC- SA PATIENTS-PAIN ONLY GT SCH ×2 (09:00→21:00)
[2019-06-19] MEDS: FINASTERIDE (5 MG) 5 MG TABLET GT SCH (09:00)
[2019-06-19] MEDS: ASCORBIC ACID 500 MG TABLET GT SCH ×2 (09:00→17:07)
[2019-06-19] MEDS: VIT B CMPLX 3/FA/VIT C/BIOTIN 1 TAB TABLET GT SCH (09:00)
[2019-06-19] MEDS: CHLORHEXIDINE GLUCONATE 15 ML UDC MM SCH ×2 (09:00→21:00)
[2019-06-19] MEDS: POTASSIUM CHLORIDE 20MEQ TAB GT SCH (09:00)
[2019-06-19] MEDS: BETADINE 5% CREAM TP SCH ×2 (11:00→21:51)
[2019-06-19] MEDS: ATORVASTATIN 10 MG TABLET GT SCH (21:00)
[2019-06-19] MEDS: TAMSULOSIN 0.4 MG CAP.SR.24H GT SCH (21:00)
[2019-06-19] MEDS: LATANOPROST EYE DROP 0.005% 2.5 ML BOTTLE EACHEYE SCH (21:00)
[2019-06-19] MEDS: INSULIN GLARGINE, 100 UNIT/ML CARTRIDGE SQ SCH (21:30)
--- NOTE | 2019-06-20 00:42 | NUR ---
Pt rec'd trached on cool aerosol @ 28% FiO2. Pt placed on mech vent on CPAP mode per MD orders. No resp distress or sob noted. Trach is patent and secured. Sx'd for thick mod amt of pale yellow secretions. Alarms are set and audible. Vent plugged into red outlet. Ambu bag bedside. Will continue to monitor. Addendum: 06/20/19 at 0043 by PAUL ALMARAZ RT Amended: Links added.
[2019-06-20] MEDS: ALBUTEROL FS 2.5 MG/0.5 ML VIAL.NEB NEB SCH ×4 (02:01→19:58)
[2019-06-20] MEDS: IPRATROPIUM NEB FS 0.5 MG/2.5 ML AMPUL.NEB IH SCH ×4 (02:01→19:58)
[2019-06-20] MEDS: REGLAN GT SCH ×3 (05:11→20:33)
[2019-06-20] MEDS: LACOSAMIDE ORAL SOLN 50 MG/5 ML UDC GT SCH ×2 (05:11→17:22)
[2019-06-20] MEDS: SIMETHICONE SUSP 40 MG/0.6 ML BOTTLE GT SCH ×3 (05:11→17:22)
[2019-06-20] MEDS: OMEPRAZOLE 20 MG CAPSULE.DR GT SCH (05:11)
[2019-06-20] MEDS: PROSTAT (PYXIS) 30 ML UDC GT SCH ×3 (05:11→20:33)
[2019-06-20] MEDS: BLOOD SUGAR DIAGNOSTIC 1 EACH STRIP IN SCH ×3 (05:11→17:22)
[2019-06-20] MEDS: INSULIN REGULAR, HUMAN 100 UNIT/ML 10 ML VIAL SQ SCH ×3 (05:12→17:24)
[2019-06-20] MEDS: PETROLATUM,WHITE PACKET 5 GM PACKET TP SCH (09:00)
[2019-06-20] MEDS: POVIDONE-IODINE OINT 28.4 GM TUBE TP SCH ×4 (09:00→20:34)
[2019-06-20] MEDS: POTASSIUM CHLORIDE 20MEQ TAB GT SCH (09:00)
[2019-06-20] MEDS: METOPROLOL TARTRATE 25 MG TABLET GT SCH ×2 (09:00→20:33)
[2019-06-20] MEDS: DORZOLAMIDE OPTH 2% 10 ML BOTTLE EACHEYE SCH ×3 (09:00→17:22)
[2019-06-20] MEDS: PredniSONE SOLUTION 5 MG/5 ML UDC GT SCH (09:00)
[2019-06-20] MEDS: ACIDOPHILUS/BULGARICUS 1 EACH TAB.CHEW GT SCH (09:00)
[2019-06-20] MEDS: CHLORHEXIDINE GLUCONATE 15 ML UDC MM SCH ×2 (09:00→20:33)
[2019-06-20] MEDS: FINASTERIDE (5 MG) 5 MG TABLET GT SCH (09:00)
[2019-06-20] MEDS: LINAGLIPTIN 5 MG TABLET GT SCH (09:00)
[2019-06-20] MEDS: ACETAMINOPHEN 650 MG/20 ML UDC- SA PATIENTS-PAIN ONLY GT SCH ×2 (09:00→20:33)
[2019-06-20] MEDS: DOXYCYCLINE HYCLATE (100 MG) 100 MG TABLET GT SCH ×2 (09:00→20:33)
[2019-06-20] MEDS: VITAMINS A AND D 56.7 GM TUBE TP SCH ×2 (09:00→20:34)
[2019-06-20] MEDS: HYDROGEL DRESSING 90 GM TUBE TP SCH (09:00)
[2019-06-20] MEDS: BETADINE 5% CREAM TP SCH ×2 (09:00→20:34)
[2019-06-20] MEDS: ASCORBIC ACID 500 MG TABLET GT SCH ×2 (09:00→17:22)
[2019-06-20] MEDS: HYDROGEN PEROXIDE 480 ML BOTTLE TP SCH ×2 (09:00→20:34)
[2019-06-20] MEDS: VIT B CMPLX 3/FA/VIT C/BIOTIN 1 TAB TABLET GT SCH (09:00)
[2019-06-20] MEDS: Z GUARD REMEDY 4 OZ OINT TP SCH ×2 (09:00→20:34)
[2019-06-20 20:47] VITALS: BP 145/85
[2019-06-20] MEDS: LATANOPROST EYE DROP 0.005% 2.5 ML BOTTLE EACHEYE SCH (21:39)
[2019-06-20] MEDS: ATORVASTATIN 10 MG TABLET GT SCH (21:39)
[2019-06-20] MEDS: TAMSULOSIN 0.4 MG CAP.SR.24H GT SCH (21:39)
[2019-06-20] MEDS: INSULIN GLARGINE, 100 UNIT/ML CARTRIDGE SQ SCH (21:49)
[2019-06-21] MEDS: BLOOD SUGAR DIAGNOSTIC 1 EACH STRIP IN SCH ×4 (00:27→17:48)
[2019-06-21] MEDS: SIMETHICONE SUSP 40 MG/0.6 ML BOTTLE GT SCH ×4 (00:27→17:48)
[2019-06-21] MEDS: INSULIN REGULAR, HUMAN 100 UNIT/ML 10 ML VIAL SQ SCH ×4 (00:28→17:52)
[2019-06-21] MEDS: IPRATROPIUM NEB FS 0.5 MG/2.5 ML AMPUL.NEB IH SCH ×4 (01:55→19:36)
[2019-06-21] MEDS: ALBUTEROL FS 2.5 MG/0.5 ML VIAL.NEB NEB SCH ×4 (01:55→19:35)
[2019-06-21] MEDS: PROSTAT (PYXIS) 30 ML UDC GT SCH ×3 (05:00→21:57)
[2019-06-21] MEDS: REGLAN GT SCH ×3 (05:00→21:57)
[2019-06-21] MEDS: LACOSAMIDE ORAL SOLN 50 MG/5 ML UDC GT SCH ×2 (06:03→17:48)
[2019-06-21] MEDS: OMEPRAZOLE 20 MG CAPSULE.DR GT SCH (06:03)
[2019-06-21 07:27] VITALS: BP 139/64
[2019-06-21] MEDS: HYDROGEN PEROXIDE 480 ML BOTTLE TP SCH ×2 (07:44→21:58)
[2019-06-21] MEDS: FINASTERIDE (5 MG) 5 MG TABLET GT SCH (09:00)
[2019-06-21] MEDS: ACETAMINOPHEN 650 MG/20 ML UDC- SA PATIENTS-PAIN ONLY GT SCH ×2 (09:00→21:57)
[2019-06-21] MEDS: LINAGLIPTIN 5 MG TABLET GT SCH (09:00)
[2019-06-21] MEDS: PETROLATUM,WHITE PACKET 5 GM PACKET TP SCH (09:00)
[2019-06-21] MEDS: DOXYCYCLINE HYCLATE (100 MG) 100 MG TABLET GT SCH ×2 (09:00→21:57)
[2019-06-21] MEDS: BETADINE 5% CREAM TP SCH ×2 (09:00→21:58)
[2019-06-21] MEDS: VIT B CMPLX 3/FA/VIT C/BIOTIN 1 TAB TABLET GT SCH (09:00)
[2019-06-21] MEDS: CHLORHEXIDINE GLUCONATE 15 ML UDC MM SCH ×2 (09:00→21:57)
[2019-06-21] MEDS: DORZOLAMIDE OPTH 2% 10 ML BOTTLE EACHEYE SCH ×3 (09:00→17:48)
[2019-06-21] MEDS: POVIDONE-IODINE OINT 28.4 GM TUBE TP SCH ×4 (09:00→21:58)
[2019-06-21] MEDS: ACIDOPHILUS/BULGARICUS 1 EACH TAB.CHEW GT SCH (09:00)
[2019-06-21] MEDS: PredniSONE SOLUTION 5 MG/5 ML UDC GT SCH (09:00)
[2019-06-21] MEDS: VITAMINS A AND D 56.7 GM TUBE TP SCH ×2 (09:00→21:58)
[2019-06-21] MEDS: POTASSIUM CHLORIDE 20MEQ TAB GT SCH (09:00)
[2019-06-21] MEDS: METOPROLOL TARTRATE 25 MG TABLET GT SCH ×2 (09:00→21:57)
[2019-06-21] MEDS: Z GUARD REMEDY 4 OZ OINT TP SCH ×2 (09:00→21:58)
[2019-06-21] MEDS: ASCORBIC ACID 500 MG TABLET GT SCH ×2 (09:00→17:48)
[2019-06-21] MEDS: NEPRO 1,000 ML BOTTLE GT PRN (13:41)
--- NOTE | 2019-06-21 16:05 | NUR ---
INTERDISCIPLINARY PLAN OF CARE CONFERENCE took place today. The patients responsible constitution party/ Dr. Johns was able to participate via phone conference. IDT answered all of familys questions. Charge nurse discussed improvement on skin condition, contact isolation nares has been discontinued 06/18. Dr. Ramírez and Interdisciplinary team discussed the plan of care in detail. Current orders as well as treatments and medications were reviewed. Please see other disciplines IDT notes for further details.
--- NOTE | 2019-06-21 16:45 | NUR ---
RT NOTE: RECEIVED PT ON 28% C/A. NO RESPIRATORY DISTRESS NOTED. TRACH CHECKED SECURE AND PATENT. SXD AND LAVAGED PT Q ROUND AND NEEDED. TXS GIVEN ORDERED WITH NO ADVERSE REACTIONS NOTED. TRACH CARE DONE. SPARE TRACH AND AMBU BAG @ BEDSIDE. VENT @ BEDSIDE. WILL CONTINUE TO MONITOR.
--- NOTE | 2019-06-21 19:44 | NUR ---
Seen and examined by Dr. Garduno, resident's son at bedside. Informed MD that during IDT meeting, Pharmacist is asking for the duration of Doxycycline, according to Dr. Garduno the medication is indefinite because it is use to treat Bullous Pemphigoid and it is recommended by circuits engineer. Dr. Garduno also reviewed BS and increased current Lantus dose to 38 units. Order carried out. Resident's son informed.
[2019-06-21 20:24] VITALS: BP 143/79
[2019-06-21] MEDS: LATANOPROST EYE DROP 0.005% 2.5 ML BOTTLE EACHEYE SCH (21:59)
[2019-06-21] MEDS: ATORVASTATIN 10 MG TABLET GT SCH (22:00)
[2019-06-21] MEDS: TAMSULOSIN 0.4 MG CAP.SR.24H GT SCH (22:00)
[2019-06-21] MEDS: INSULIN GLARGINE, 100 UNIT/ML CARTRIDGE SQ SCH (22:00)
[2019-06-22] MEDS: SIMETHICONE SUSP 40 MG/0.6 ML BOTTLE GT SCH ×5 (00:11→23:23)
[2019-06-22] MEDS: BLOOD SUGAR DIAGNOSTIC 1 EACH STRIP IN SCH ×5 (00:47→23:23)
[2019-06-22] MEDS: INSULIN REGULAR, HUMAN 100 UNIT/ML 10 ML VIAL SQ SCH ×5 (00:50→23:24)
[2019-06-22] MEDS: ALBUTEROL FS 2.5 MG/0.5 ML VIAL.NEB NEB SCH ×4 (01:41→19:29)
[2019-06-22] MEDS: IPRATROPIUM NEB FS 0.5 MG/2.5 ML AMPUL.NEB IH SCH ×4 (01:41→19:29)
[2019-06-22] MEDS: REGLAN GT SCH ×3 (05:18→20:56)
[2019-06-22] MEDS: PROSTAT (PYXIS) 30 ML UDC GT SCH ×3 (05:18→20:56)
[2019-06-22] MEDS: LACOSAMIDE ORAL SOLN 50 MG/5 ML UDC GT SCH ×2 (05:18→17:23)
[2019-06-22] MEDS: OMEPRAZOLE 20 MG CAPSULE.DR GT SCH (05:18)
--- NOTE | 2019-06-22 05:31 | NUR ---
RT Patient was received on 28% cool aerosol.Placed patient on vent with CPAP mode during midnight and back to cool aerosol at 0500 per MD order.Patient stable throughout the shift. Trach is patent and secured.Will continue to monitor. Addendum: 06/22/19 at 0535 by ABEBA SUAREZ RT Amended: Links added.
--- NOTE | 2019-06-22 05:50 | NUR ---
Pt left for dialysis at [facility] picked up by ambulance crew in stable condition.
[2019-06-22] MEDS: POTASSIUM CHLORIDE 20MEQ TAB GT SCH (09:00)
[2019-06-22] MEDS: METOPROLOL TARTRATE 25 MG TABLET GT SCH ×2 (09:00→20:56)
[2019-06-22] MEDS: FINASTERIDE (5 MG) 5 MG TABLET GT SCH (09:00)
[2019-06-22] MEDS: ACIDOPHILUS/BULGARICUS 1 EACH TAB.CHEW GT SCH (09:00)
[2019-06-22] MEDS: BETADINE 5% CREAM TP SCH ×2 (09:00→20:57)
[2019-06-22] MEDS ORDERED: predniSONE 10 MG TABLET GT SCH (09:00)
[2019-06-22] MEDS: CHLORHEXIDINE GLUCONATE 15 ML UDC MM SCH ×2 (09:00→20:57)
[2019-06-22] MEDS: VIT B CMPLX 3/FA/VIT C/BIOTIN 1 TAB TABLET GT SCH (09:00)
[2019-06-22] MEDS: VITAMINS A AND D 56.7 GM TUBE TP SCH ×2 (09:00→20:57)
[2019-06-22] MEDS: ACETAMINOPHEN 650 MG/20 ML UDC- SA PATIENTS-PAIN ONLY GT SCH ×2 (09:00→20:57)
[2019-06-22] MEDS: DORZOLAMIDE OPTH 2% 10 ML BOTTLE EACHEYE SCH ×3 (09:00→17:22)
[2019-06-22] MEDS: ASCORBIC ACID 500 MG TABLET GT SCH ×2 (09:00→17:22)
[2019-06-22] MEDS: LINAGLIPTIN 5 MG TABLET GT SCH (09:00)
[2019-06-22] MEDS: Z GUARD REMEDY 4 OZ OINT TP SCH ×2 (09:00→20:57)
[2019-06-22] MEDS: POVIDONE-IODINE OINT 28.4 GM TUBE TP SCH ×2 (09:00)
[2019-06-22] MEDS: DOXYCYCLINE HYCLATE (100 MG) 100 MG TABLET GT SCH ×2 (09:00→20:57)
[2019-06-22] MEDS: PredniSONE SOLUTION 5 MG/5 ML UDC GT SCH (09:00)
--- NOTE | 2019-06-22 10:56 | NUR ---
PATIENT RETURNED FROM DIALYSIS CENTER, NO RESPIRATORY DISTRESS, AT ARRIVAL WAS CONNECTED TO COOL AEROSOL PRESCRIBED BY MD, WAS SUCTIONED WITH MINIMAL SECRETIONS, VITAL SIGNS BP 157/89, TEMP 98.0, PULSE 84, NO PAIN OR DISCOMFORT NOTED, NO FACIAL GRIMACING NOTED, RIGHT CHEST CATHETER DRESSING CLEAN AND DRY, NO BLEEDING, HOB AT 35-45 DEGREES, CALL LIGHT WITHIN REACH.
[2019-06-22] MEDS: NEPRO 1,000 ML BOTTLE GT PRN (12:31)
[2019-06-22] MEDS: HYDROGEN PEROXIDE 480 ML BOTTLE TP SCH ×2 (13:50→20:57)
--- NOTE | 2019-06-22 16:37 | NUR ---
RT NOTE: RECEIVED PT ON 28% C/A @ 1030 AFTER HEMODIALYSIS TX. NO RESPIRATORY DISTRESS NOTED. TRACH CHECKED SECURE AND PATENT. SXD AND LAVAGED PT Q ROUND AND NEEDED. TXS GIVEN ORDERED WITH NO ADVERSE REACTIONS NOTED. TRACH CARE DONE. SPARE TRACH AND AMBU BAG @ BEDSIDE. VENT @ BEDSIDE. WILL CONTINUE TO MONITOR.
[2019-06-22 19:45] VITALS: BP 135/79
[2019-06-22] MEDS: ATORVASTATIN 10 MG TABLET GT SCH (21:00)
[2019-06-22] MEDS: LATANOPROST EYE DROP 0.005% 2.5 ML BOTTLE EACHEYE SCH (21:00)
[2019-06-22] MEDS: TAMSULOSIN 0.4 MG CAP.SR.24H GT SCH (21:00)
[2019-06-22] MEDS: INSULIN GLARGINE, 100 UNIT/ML CARTRIDGE SQ SCH (21:01)
[2019-06-23] MEDS: ALBUTEROL FS 2.5 MG/0.5 ML VIAL.NEB NEB SCH ×4 (01:11→19:40)
[2019-06-23] MEDS: IPRATROPIUM NEB FS 0.5 MG/2.5 ML AMPUL.NEB IH SCH ×4 (01:11→19:40)
--- NOTE | 2019-06-23 03:59 | NUR ---
Pt receive stable on 28% FiO2 C/A, switch to MV at 0000 until 0500, settings are CPAP PS 15 +5 at 40% FiO2 , vent plug to red outlet, alarms are on and audible, trach patent and secured will continue to monitor. Addendum: 06/23/19 at 0401 by TORSTEN STARKEY RT Amended: Links added.
[2019-06-23] MEDS: REGLAN GT SCH ×3 (05:00→20:33)
[2019-06-23] MEDS: PROSTAT (PYXIS) 30 ML UDC GT SCH ×3 (05:00→20:34)
[2019-06-23] MEDS: INSULIN REGULAR, HUMAN 100 UNIT/ML 10 ML VIAL SQ SCH ×4 (06:00→23:57)
[2019-06-23] MEDS: BLOOD SUGAR DIAGNOSTIC 1 EACH STRIP IN SCH ×4 (06:12→23:56)
[2019-06-23] MEDS: OMEPRAZOLE 20 MG CAPSULE.DR GT SCH (06:12)
[2019-06-23] MEDS: SIMETHICONE SUSP 40 MG/0.6 ML BOTTLE GT SCH ×4 (06:12→23:56)
[2019-06-23] MEDS: LACOSAMIDE ORAL SOLN 50 MG/5 ML UDC GT SCH ×2 (06:12→17:10)
[2019-06-23 07:35] VITALS: BP 130/67
[2019-06-23] MEDS: DORZOLAMIDE OPTH 2% 10 ML BOTTLE EACHEYE SCH ×3 (08:58→17:10)
[2019-06-23] MEDS: ACIDOPHILUS/BULGARICUS 1 EACH TAB.CHEW GT SCH (08:58)
[2019-06-23] MEDS: POTASSIUM CHLORIDE 20MEQ TAB GT SCH (08:59)
[2019-06-23] MEDS: VIT B CMPLX 3/FA/VIT C/BIOTIN 1 TAB TABLET GT SCH (08:59)
[2019-06-23] MEDS: LINAGLIPTIN 5 MG TABLET GT SCH (08:59)
[2019-06-23] MEDS: METOPROLOL TARTRATE 25 MG TABLET GT SCH ×2 (08:59→20:33)
[2019-06-23] MEDS: ASCORBIC ACID 500 MG TABLET GT SCH ×2 (08:59→17:10)
[2019-06-23] MEDS: PredniSONE SOLUTION 5 MG/5 ML UDC GT SCH (08:59)
[2019-06-23] MEDS: CHLORHEXIDINE GLUCONATE 15 ML UDC MM SCH ×2 (08:59→20:34)
[2019-06-23] MEDS: DOXYCYCLINE HYCLATE (100 MG) 100 MG TABLET GT SCH ×2 (08:59→20:34)
[2019-06-23] MEDS: ACETAMINOPHEN 650 MG/20 ML UDC- SA PATIENTS-PAIN ONLY GT SCH ×2 (08:59→20:34)
[2019-06-23] MEDS: FINASTERIDE (5 MG) 5 MG TABLET GT SCH (08:59)
[2019-06-23] MEDS: HYDROGEN PEROXIDE 480 ML BOTTLE TP SCH ×2 (09:00→21:36)
[2019-06-23] MEDS: BETADINE 5% CREAM TP SCH ×2 (09:10→20:35)
[2019-06-23] MEDS: Z GUARD REMEDY 4 OZ OINT TP SCH ×2 (09:11→20:35)
[2019-06-23] MEDS: VITAMINS A AND D 56.7 GM TUBE TP SCH ×2 (09:11→20:35)
--- NOTE | 2019-06-23 14:36 | NUR ---
Per Dr. Garduno Tx was renew, 1. right & left hallux cleanse with normal saline, pat dry then apply betadine, then cover with mepilex every shift [id number], order was carried out, order faxed to pharmacy, and responsible green party made aware.
[2019-06-23] MEDS: POVIDONE-IODINE OINT 28.4 GM TUBE TP SCH ×4 (15:10→20:35)
[2019-06-23 20:31] VITALS: BP 129/77
[2019-06-23] MEDS: LATANOPROST EYE DROP 0.005% 2.5 ML BOTTLE EACHEYE SCH (21:20)
[2019-06-23] MEDS: ATORVASTATIN 10 MG TABLET GT SCH (21:20)
[2019-06-23] MEDS: INSULIN GLARGINE, 100 UNIT/ML CARTRIDGE SQ SCH (21:20)
[2019-06-23] MEDS: TAMSULOSIN 0.4 MG CAP.SR.24H GT SCH (21:20)
[2019-06-24] MEDS: IPRATROPIUM NEB FS 0.5 MG/2.5 ML AMPUL.NEB IH SCH ×4 (01:30→20:29)
[2019-06-24] MEDS: ALBUTEROL FS 2.5 MG/0.5 ML VIAL.NEB NEB SCH ×4 (01:31→20:29)
[2019-06-24] MEDS: PROSTAT (PYXIS) 30 ML UDC GT SCH ×3 (04:42→20:52)
[2019-06-24] MEDS: REGLAN GT SCH ×3 (04:42→20:51)
[2019-06-24] MEDS: SIMETHICONE SUSP 40 MG/0.6 ML BOTTLE GT SCH ×3 (05:40→18:09)
[2019-06-24] MEDS: LACOSAMIDE ORAL SOLN 50 MG/5 ML UDC GT SCH ×2 (05:41→18:09)
[2019-06-24] MEDS: OMEPRAZOLE 20 MG CAPSULE.DR GT SCH (05:41)
[2019-06-24] MEDS: INSULIN REGULAR, HUMAN 100 UNIT/ML 10 ML VIAL SQ SCH ×3 (05:41→18:10)
[2019-06-24] MEDS: BLOOD SUGAR DIAGNOSTIC 1 EACH STRIP IN SCH ×3 (05:41→18:09)
[2019-06-24] MEDS: NEPRO 1,000 ML BOTTLE GT PRN (06:02)
[2019-06-24 07:45] VITALS: BP 128/75
[2019-06-24] MEDS: DORZOLAMIDE OPTH 2% 10 ML BOTTLE EACHEYE SCH ×3 (08:25→17:00)
[2019-06-24] MEDS: ACIDOPHILUS/BULGARICUS 1 EACH TAB.CHEW GT SCH (08:25)
[2019-06-24] MEDS: POTASSIUM CHLORIDE 20MEQ TAB GT SCH (08:29)
[2019-06-24] MEDS: PredniSONE SOLUTION 5 MG/5 ML UDC GT SCH (08:30)
[2019-06-24] MEDS: LINAGLIPTIN 5 MG TABLET GT SCH (08:31)
[2019-06-24] MEDS: FINASTERIDE (5 MG) 5 MG TABLET GT SCH (08:31)
[2019-06-24] MEDS: ASCORBIC ACID 500 MG TABLET GT SCH ×2 (08:32→17:00)
[2019-06-24] MEDS: ACETAMINOPHEN 650 MG/20 ML UDC- SA PATIENTS-PAIN ONLY GT SCH ×2 (08:32→20:52)
[2019-06-24] MEDS: DOXYCYCLINE HYCLATE (100 MG) 100 MG TABLET GT SCH ×2 (08:32→20:53)
[2019-06-24] MEDS: CHLORHEXIDINE GLUCONATE 15 ML UDC MM SCH ×2 (08:34→20:53)
[2019-06-24] MEDS: VIT B CMPLX 3/FA/VIT C/BIOTIN 1 TAB TABLET GT SCH (08:40)
[2019-06-24] MEDS: METOPROLOL TARTRATE 25 MG TABLET GT SCH ×2 (08:40→20:51)
[2019-06-24] MEDS: HYDROGEN PEROXIDE 480 ML BOTTLE TP SCH ×2 (09:00→20:30)
[2019-06-24] MEDS: Z GUARD REMEDY 4 OZ OINT TP SCH ×2 (09:00→20:53)
[2019-06-24] MEDS: VITAMINS A AND D 56.7 GM TUBE TP SCH ×2 (09:00→20:53)
[2019-06-24] MEDS: POVIDONE-IODINE OINT 28.4 GM TUBE TP SCH ×4 (09:00→20:53)
[2019-06-24 20:25] VITALS: BP 140/73
[2019-06-24] MEDS: TAMSULOSIN 0.4 MG CAP.SR.24H GT SCH (21:47)
[2019-06-24] MEDS: ATORVASTATIN 10 MG TABLET GT SCH (21:47)
[2019-06-24] MEDS: LATANOPROST EYE DROP 0.005% 2.5 ML BOTTLE EACHEYE SCH (21:47)
[2019-06-24] MEDS: INSULIN GLARGINE, 100 UNIT/ML CARTRIDGE SQ SCH (21:48)
[2019-06-25] MEDS: SIMETHICONE SUSP 40 MG/0.6 ML BOTTLE GT SCH ×4 (00:12→17:32)
[2019-06-25] MEDS: BLOOD SUGAR DIAGNOSTIC 1 EACH STRIP IN SCH ×4 (00:12→17:50)
[2019-06-25] MEDS: IPRATROPIUM NEB FS 0.5 MG/2.5 ML AMPUL.NEB IH SCH ×4 (02:02→19:50)
[2019-06-25] MEDS: ALBUTEROL FS 2.5 MG/0.5 ML VIAL.NEB NEB SCH ×4 (02:02→19:50)
--- NOTE | 2019-06-25 03:54 | NUR ---
RT NOTE Pt rec'd trached on cool aerosol at 28% Fio2. Pt placed on mech vent on CPAP mode per md orders. No resp distress or sob noted. Trach is patent and secured. Sx'd for thick mod amt of pale yellow secretions. Vent plugged into red outlet. Alarms are set and audible. Ambu bag bedside. Will continue to monitor. Addendum: 06/25/19 at 0354 by PAUL ALMARAZ RT Amended: Links added.
[2019-06-25] MEDS: REGLAN GT SCH ×3 (04:42→20:47)
[2019-06-25] MEDS: PROSTAT (PYXIS) 30 ML UDC GT SCH ×3 (04:42→20:49)
[2019-06-25] MEDS: LACOSAMIDE ORAL SOLN 50 MG/5 ML UDC GT SCH ×2 (05:23→17:32)
[2019-06-25] MEDS: INSULIN REGULAR, HUMAN 100 UNIT/ML 10 ML VIAL SQ SCH ×4 (05:23→17:51)
[2019-06-25] MEDS: OMEPRAZOLE 20 MG CAPSULE.DR GT SCH (05:23)
--- NOTE | 2019-06-25 06:00 | NUR ---
RN NOTES Pt picked up for dialysis appointment by Celestine jefferson. Pt in stable conditiion, V/S WNL.
[2019-06-25] MEDS: DORZOLAMIDE OPTH 2% 10 ML BOTTLE EACHEYE SCH ×3 (09:00→17:32)
[2019-06-25] MEDS: POTASSIUM CHLORIDE 20MEQ TAB GT SCH ×2 (09:00→11:00)
[2019-06-25] MEDS: PredniSONE SOLUTION 5 MG/5 ML UDC GT SCH ×2 (09:00→11:00)
[2019-06-25] MEDS: METOPROLOL TARTRATE 25 MG TABLET GT SCH ×3 (09:00→20:48)
[2019-06-25] MEDS: LINAGLIPTIN 5 MG TABLET GT SCH ×2 (09:00→11:00)
[2019-06-25] MEDS: HYDROGEN PEROXIDE 480 ML BOTTLE TP SCH ×2 (09:00→21:21)
[2019-06-25] MEDS: VIT B CMPLX 3/FA/VIT C/BIOTIN 1 TAB TABLET GT SCH ×2 (09:00→11:00)
[2019-06-25] MEDS: ASCORBIC ACID 500 MG TABLET GT SCH ×3 (09:00→17:32)
[2019-06-25] MEDS: ACIDOPHILUS/BULGARICUS 1 EACH TAB.CHEW GT SCH ×2 (09:00→11:00)
[2019-06-25] MEDS: DOXYCYCLINE HYCLATE (100 MG) 100 MG TABLET GT SCH ×3 (09:00→20:50)
[2019-06-25] MEDS: FINASTERIDE (5 MG) 5 MG TABLET GT SCH ×2 (09:00→11:00)
[2019-06-25 10:50] VITALS: BP 108/68
--- NOTE | 2019-06-25 10:50 | NUR ---
@ 1050am Patient came back from S/P hemodialysis treatment. Patient in stable condition. No s/s of any complications noted. No respiratory distress noted. V/S as follows T 99.3, P 85, R 16, BP 108/68, P 0/10.
[2019-06-25] MEDS: CHLORHEXIDINE GLUCONATE 15 ML UDC MM SCH ×2 (11:00→20:50)
[2019-06-25] MEDS: NEPRO 1,000 ML BOTTLE GT PRN (11:00)
[2019-06-25] MEDS: ACETAMINOPHEN 650 MG/20 ML UDC- SA PATIENTS-PAIN ONLY GT SCH ×2 (11:00→20:49)
[2019-06-25] MEDS: POVIDONE-IODINE OINT 28.4 GM TUBE TP SCH ×4 (11:45→20:50)
[2019-06-25] MEDS: VITAMINS A AND D 56.7 GM TUBE TP SCH ×2 (11:45→20:51)
[2019-06-25] MEDS: Z GUARD REMEDY 4 OZ OINT TP SCH ×2 (11:45→20:51)
[2019-06-25 20:42] VITALS: BP 137/79
[2019-06-25] MEDS: TAMSULOSIN 0.4 MG CAP.SR.24H GT SCH (21:16)
[2019-06-25] MEDS: ATORVASTATIN 10 MG TABLET GT SCH (21:16)
[2019-06-25] MEDS: LATANOPROST EYE DROP 0.005% 2.5 ML BOTTLE EACHEYE SCH (21:16)
[2019-06-25] MEDS: INSULIN GLARGINE, 100 UNIT/ML CARTRIDGE SQ SCH (21:17)
--- NOTE | 2019-06-25 21:22 | NUR ---
RT NOTE PT RECEIVED TRACHED ON COOL AEROSOL @ 28%. AMBU BAG/BACK UP TRACH @ BEDSIDE. TX GIVEN, NO ADVERSE REACTIONS NOTED. SX DONE, TRACH SECURED AND PATENT. CONT. POX CONNECTED. WATER LEVEL GOOD. WILL MONITOR T/O SHIFT. WILL PLACE ON VENT @ 0000 PER MD ORDER. Addendum: 06/25/19 at 2123 by GINGER YOU RT Amended: Links added.
[2019-06-26] MEDS: BLOOD SUGAR DIAGNOSTIC 1 EACH STRIP IN SCH ×5 (00:19→23:52)
[2019-06-26] MEDS: SIMETHICONE SUSP 40 MG/0.6 ML BOTTLE GT SCH ×5 (00:19→23:52)
[2019-06-26] MEDS: INSULIN REGULAR, HUMAN 100 UNIT/ML 10 ML VIAL SQ SCH ×5 (00:20→23:53)
[2019-06-26] MEDS: IPRATROPIUM NEB FS 0.5 MG/2.5 ML AMPUL.NEB IH SCH ×4 (01:55→20:11)
[2019-06-26] MEDS: ALBUTEROL FS 2.5 MG/0.5 ML VIAL.NEB NEB SCH ×4 (01:55→20:11)
[2019-06-26] MEDS: REGLAN GT SCH ×3 (05:04→21:44)
[2019-06-26] MEDS: PROSTAT (PYXIS) 30 ML UDC GT SCH ×3 (05:04→21:44)
[2019-06-26] MEDS: OMEPRAZOLE 20 MG CAPSULE.DR GT SCH (05:05)
[2019-06-26] MEDS: LACOSAMIDE ORAL SOLN 50 MG/5 ML UDC GT SCH ×2 (05:06→18:13)
[2019-06-26 07:32] VITALS: BP 110/69
[2019-06-26] MEDS: DORZOLAMIDE OPTH 2% 10 ML BOTTLE EACHEYE SCH ×3 (08:07→16:50)
[2019-06-26] MEDS: POTASSIUM CHLORIDE 20MEQ TAB GT SCH (08:08)
[2019-06-26] MEDS: ACIDOPHILUS/BULGARICUS 1 EACH TAB.CHEW GT SCH (08:08)
[2019-06-26] MEDS: FINASTERIDE (5 MG) 5 MG TABLET GT SCH (08:09)
[2019-06-26] MEDS: PredniSONE SOLUTION 5 MG/5 ML UDC GT SCH (08:09)
[2019-06-26] MEDS: LINAGLIPTIN 5 MG TABLET GT SCH (08:10)
[2019-06-26] MEDS: DOXYCYCLINE HYCLATE (100 MG) 100 MG TABLET GT SCH ×2 (08:10→21:45)
[2019-06-26] MEDS: ACETAMINOPHEN 650 MG/20 ML UDC- SA PATIENTS-PAIN ONLY GT SCH ×2 (08:10→21:45)
[2019-06-26] MEDS: CHLORHEXIDINE GLUCONATE 15 ML UDC MM SCH ×2 (08:11→21:45)
[2019-06-26] MEDS: ASCORBIC ACID 500 MG TABLET GT SCH ×2 (08:11→16:50)
[2019-06-26] MEDS: METOPROLOL TARTRATE 25 MG TABLET GT SCH ×2 (08:15→21:44)
[2019-06-26] MEDS: VIT B CMPLX 3/FA/VIT C/BIOTIN 1 TAB TABLET GT SCH (08:15)
[2019-06-26] MEDS: HYDROGEN PEROXIDE 480 ML BOTTLE TP SCH ×2 (08:16→20:37)
[2019-06-26] MEDS: Z GUARD REMEDY 4 OZ OINT TP SCH ×2 (09:00→21:50)
[2019-06-26] MEDS: VITAMINS A AND D 56.7 GM TUBE TP SCH ×2 (09:00→21:50)
[2019-06-26] MEDS: POVIDONE-IODINE OINT 28.4 GM TUBE TP SCH ×4 (09:00→21:50)
[2019-06-26] MEDS: NEPRO 1,000 ML BOTTLE GT PRN (11:03)
--- NOTE | 2019-06-26 14:03 | NUR ---
CHANI left a voicemail for the pt.s son, Dr. Johns [phone] inviting them to the Family Support Group for the month of June taking place 07/03/19 from 11am-12 pm in the old admin room. CHANI left call back number.
--- NOTE | 2019-06-26 14:05 | NUR ---
11 am--CHANI contacted and left a voicemail for the patients responsible green party, Dr. Johns [phone] urging him to make a payment towards the SOC as he handles the pt.' finances. provided him with Business office ext. and informed him that this is a reportable manner as neglecting to pay the SOC could potentially jeopardize the pt.s stay at [facility]. 11:30am-- CHANI received a call back from Dr. Johns to discuss SOC. CHANI informed Dr. Johns that Per matrix supervisor, Hanane the SOC total amount due is $13,580.00 as of May 2019. CHANI informed Dr. Johns that [facility] management has consulted with the legal department and they stated this is a reportable matter. CHANI urged to get in contact with Jessica Sorto [phone] from [facility] Business Office, to discuss payment options. Dr. Johns expressed understanding and stated that he would call today and begin making payments.
[2019-06-26 19:48] VITALS: BP 146/85
--- NOTE | 2019-06-26 20:53 | NUR ---
PT RCVD TRACH'D ON COOL AEROSOL WITH CHARTED SETTINGS. PT TONY TX WELL. SX DONE. PT TRACH IS PATENT AND SECURE. AMBU BAG AT BEDSIDE. NO SOB NOTED. Addendum: 06/26/19 at 2053 by TITO GARCES RT Amended: Links added.
[2019-06-26] MEDS: TAMSULOSIN 0.4 MG CAP.SR.24H GT SCH (21:45)
[2019-06-26] MEDS: ATORVASTATIN 10 MG TABLET GT SCH (21:45)
[2019-06-26] MEDS: LATANOPROST EYE DROP 0.005% 2.5 ML BOTTLE EACHEYE SCH (22:08)
[2019-06-26] MEDS: INSULIN GLARGINE, 100 UNIT/ML CARTRIDGE SQ SCH (22:13)
[2019-06-27] MEDS: IPRATROPIUM NEB FS 0.5 MG/2.5 ML AMPUL.NEB IH SCH ×4 (00:56→20:07)
[2019-06-27] MEDS: ALBUTEROL FS 2.5 MG/0.5 ML VIAL.NEB NEB SCH ×4 (00:56→20:07)
[2019-06-27] MEDS: PROSTAT (PYXIS) 30 ML UDC GT SCH ×3 (05:28→21:00)
[2019-06-27] MEDS: REGLAN GT SCH ×3 (05:28→21:00)
[2019-06-27] MEDS: SIMETHICONE SUSP 40 MG/0.6 ML BOTTLE GT SCH ×3 (05:28→18:23)
[2019-06-27] MEDS: OMEPRAZOLE 20 MG CAPSULE.DR GT SCH (05:28)
[2019-06-27] MEDS: BLOOD SUGAR DIAGNOSTIC 1 EACH STRIP IN SCH ×3 (05:28→18:23)
[2019-06-27] MEDS: LACOSAMIDE ORAL SOLN 50 MG/5 ML UDC GT SCH ×2 (05:28→18:23)
[2019-06-27] MEDS: INSULIN REGULAR, HUMAN 100 UNIT/ML 10 ML VIAL SQ SCH ×3 (05:28→18:00)
--- NOTE | 2019-06-27 06:25 | NUR ---
Patient picked up by ambulance crew for dialysis at [facility].Vital signs stable.
[2019-06-27] MEDS: LINAGLIPTIN 5 MG TABLET GT SCH ×2 (09:00→12:02)
[2019-06-27] MEDS: HYDROGEN PEROXIDE 480 ML BOTTLE TP SCH ×2 (09:00→21:01)
[2019-06-27] MEDS: DORZOLAMIDE OPTH 2% 10 ML BOTTLE EACHEYE SCH ×3 (11:30→17:50)
--- NOTE | 2019-06-27 11:39 | NUR ---
Pt returned from dialysis. GTF connected and started. BS check done - 46. 8oz OJ given via GT. Pt opens eyes, responsive, no s/s of hypoglycemia. Will monitor.
[2019-06-27] MEDS: ACIDOPHILUS/BULGARICUS 1 EACH TAB.CHEW GT SCH (12:02)
[2019-06-27] MEDS: METOPROLOL TARTRATE 25 MG TABLET GT SCH ×2 (12:02→21:00)
[2019-06-27] MEDS: FINASTERIDE (5 MG) 5 MG TABLET GT SCH (12:02)
[2019-06-27] MEDS: VIT B CMPLX 3/FA/VIT C/BIOTIN 1 TAB TABLET GT SCH (12:02)
[2019-06-27] MEDS: PredniSONE SOLUTION 5 MG/5 ML UDC GT SCH (12:02)
[2019-06-27] MEDS: POTASSIUM CHLORIDE 20MEQ TAB GT SCH (12:02)
[2019-06-27] MEDS: ACETAMINOPHEN 650 MG/20 ML UDC- SA PATIENTS-PAIN ONLY GT SCH ×2 (12:03→21:00)
[2019-06-27] MEDS: ASCORBIC ACID 500 MG TABLET GT SCH ×2 (12:03→17:50)
[2019-06-27] MEDS: CHLORHEXIDINE GLUCONATE 15 ML UDC MM SCH ×2 (12:03→21:00)
[2019-06-27] MEDS: DOXYCYCLINE HYCLATE (100 MG) 100 MG TABLET GT SCH ×2 (12:03→21:00)
--- NOTE | 2019-06-27 12:53 | NUR ---
Rechecked BS: 84. GTF ongoing. No distress noted.
--- NOTE | 2019-06-27 13:30 | NUR ---
Pt seen and examined by Dr. Lugo. notified of low BS levels today. Order obtained to decrease Lantus to 30 units q HS. Order carried out. Pt's son notified, verbalized understanding.
[2019-06-27] MEDS: POVIDONE-IODINE OINT 28.4 GM TUBE TP SCH ×6 (13:33→21:00)
[2019-06-27] MEDS: VITAMINS A AND D 56.7 GM TUBE TP SCH ×2 (13:33→21:00)
[2019-06-27] MEDS: Z GUARD REMEDY 4 OZ OINT TP SCH ×2 (13:33→21:00)
[2019-06-27 19:28] VITALS: BP 123/75
--- NOTE | 2019-06-27 20:18 | NUR ---
Seen and examined by BRANDO Pineda no new orders.
[2019-06-27] MEDS: ATORVASTATIN 10 MG TABLET GT SCH (22:05)
[2019-06-27] MEDS: TAMSULOSIN 0.4 MG CAP.SR.24H GT SCH (22:05)
[2019-06-27] MEDS: LATANOPROST EYE DROP 0.005% 2.5 ML BOTTLE EACHEYE SCH (22:05)
[2019-06-27] MEDS: INSULIN GLARGINE, 100 UNIT/ML CARTRIDGE SQ SCH (22:05)
[2019-06-28] MEDS: SIMETHICONE SUSP 40 MG/0.6 ML BOTTLE GT SCH ×5 (00:03→23:50)
[2019-06-28] MEDS: BLOOD SUGAR DIAGNOSTIC 1 EACH STRIP IN SCH ×5 (00:03→23:50)
[2019-06-28] MEDS: INSULIN REGULAR, HUMAN 100 UNIT/ML 10 ML VIAL SQ SCH ×5 (00:04→23:52)
[2019-06-28] MEDS: IPRATROPIUM NEB FS 0.5 MG/2.5 ML AMPUL.NEB IH SCH ×4 (01:39→19:56)
[2019-06-28] MEDS: ALBUTEROL FS 2.5 MG/0.5 ML VIAL.NEB NEB SCH ×4 (01:39→19:57)
[2019-06-28] MEDS: LACOSAMIDE ORAL SOLN 50 MG/5 ML UDC GT SCH ×2 (05:00→17:36)
[2019-06-28] MEDS: OMEPRAZOLE 20 MG CAPSULE.DR GT SCH (05:26)
[2019-06-28] MEDS: PROSTAT (PYXIS) 30 ML UDC GT SCH ×3 (05:26→21:44)
[2019-06-28] MEDS: REGLAN GT SCH ×3 (05:26→21:43)
[2019-06-28 08:00] VITALS: BP 116/72
[2019-06-28] MEDS: HYDROGEN PEROXIDE 480 ML BOTTLE TP SCH ×2 (09:13→21:00)
[2019-06-28] MEDS: CHLORHEXIDINE GLUCONATE 15 ML UDC MM SCH ×2 (10:24→21:44)
[2019-06-28] MEDS: DORZOLAMIDE OPTH 2% 10 ML BOTTLE EACHEYE SCH ×3 (10:24→17:36)
[2019-06-28] MEDS: ACIDOPHILUS/BULGARICUS 1 EACH TAB.CHEW GT SCH (10:24)
[2019-06-28] MEDS: ASCORBIC ACID 500 MG TABLET GT SCH ×2 (10:24→17:36)
[2019-06-28] MEDS: VIT B CMPLX 3/FA/VIT C/BIOTIN 1 TAB TABLET GT SCH (10:24)
[2019-06-28] MEDS: FINASTERIDE (5 MG) 5 MG TABLET GT SCH (10:24)
[2019-06-28] MEDS: DOXYCYCLINE HYCLATE (100 MG) 100 MG TABLET GT SCH ×2 (10:24→21:44)
[2019-06-28] MEDS: PredniSONE SOLUTION 5 MG/5 ML UDC GT SCH (10:24)
[2019-06-28] MEDS: LINAGLIPTIN 5 MG TABLET GT SCH (10:24)
[2019-06-28] MEDS: METOPROLOL TARTRATE 25 MG TABLET GT SCH ×2 (10:24→21:44)
[2019-06-28] MEDS: POTASSIUM CHLORIDE 20MEQ TAB GT SCH (10:24)
[2019-06-28] MEDS: ACETAMINOPHEN 650 MG/20 ML UDC- SA PATIENTS-PAIN ONLY GT SCH ×2 (10:24→21:44)
[2019-06-28] MEDS: POVIDONE-IODINE OINT 28.4 GM TUBE TP SCH ×8 (11:00→21:50)
[2019-06-28] MEDS: NEPRO 1,000 ML BOTTLE GT PRN (11:00)
[2019-06-28] MEDS: Z GUARD REMEDY 4 OZ OINT TP SCH ×2 (11:00→21:50)
[2019-06-28] MEDS: VITAMINS A AND D 56.7 GM TUBE TP SCH ×2 (11:00→21:50)
--- NOTE | 2019-06-28 13:28 | NUR ---
Dr. Nguyen reinforcing bar setter seen and assessed R heel open skin, R 4th and 5th digit open skin. She said to continue with current treatment, keep heel elevated and continue with betadine in the toes to keep it dry. Resident's son informed.
--- NOTE | 2019-06-28 13:53 | NUR ---
Dr. Johns requested that CHANI assist family with determining if pt. qualifies [facility]. CHANI sent Dr. Johns a link were he can gather additional information and apply for [facility] for the resident if interested as well as find out about Taxation Inspector Care.
--- NOTE | 2019-06-28 17:19 | NUR ---
RT Patient was received on 28% cool aerosol.Patient stable throughout the shift. Trach is patent and secured.Will continue to monitor. Addendum: 06/28/19 at 1719 by ABEBA SUAREZ RT Amended: Links added.
[2019-06-28 21:03] VITALS: BP 128/69
[2019-06-28] MEDS: LATANOPROST EYE DROP 0.005% 2.5 ML BOTTLE EACHEYE SCH (21:44)
[2019-06-28] MEDS: ATORVASTATIN 10 MG TABLET GT SCH (21:44)
[2019-06-28] MEDS: TAMSULOSIN 0.4 MG CAP.SR.24H GT SCH (21:44)
[2019-06-28] MEDS: INSULIN GLARGINE, 100 UNIT/ML CARTRIDGE SQ SCH (21:45)
[2019-06-29] MEDS: ALBUTEROL FS 2.5 MG/0.5 ML VIAL.NEB NEB SCH ×4 (01:39→20:14)
[2019-06-29] MEDS: IPRATROPIUM NEB FS 0.5 MG/2.5 ML AMPUL.NEB IH SCH ×4 (01:39→20:14)
[2019-06-29] MEDS: PROSTAT (PYXIS) 30 ML UDC GT SCH ×3 (05:19→21:18)
[2019-06-29] MEDS: LACOSAMIDE ORAL SOLN 50 MG/5 ML UDC GT SCH ×2 (05:19→17:26)
[2019-06-29] MEDS: SIMETHICONE SUSP 40 MG/0.6 ML BOTTLE GT SCH ×3 (05:19→17:26)
[2019-06-29] MEDS: REGLAN GT SCH ×3 (05:19→21:18)
[2019-06-29] MEDS: OMEPRAZOLE 20 MG CAPSULE.DR GT SCH (05:19)
[2019-06-29] MEDS: BLOOD SUGAR DIAGNOSTIC 1 EACH STRIP IN SCH ×3 (05:25→18:11)
[2019-06-29] MEDS: INSULIN REGULAR, HUMAN 100 UNIT/ML 10 ML VIAL SQ SCH ×3 (05:26→18:12)
--- NOTE | 2019-06-29 06:08 | NUR ---
Patient picked up by ambulance crew for dialysis at [facility]. Vital signs stable.
--- NOTE | 2019-06-29 10:50 | NUR ---
Patient returned from S/P hemodialyis treatment, no s/s of any complications noted. RT upper chest HD catheter intact, no bleeding noted. Covered with dressing, clean and dry. Pt afebrile. No s/s of respiratory distress noted. Kept comfortable in bed.
[2019-06-29] MEDS: FINASTERIDE (5 MG) 5 MG TABLET GT SCH (11:00)
[2019-06-29] MEDS: VIT B CMPLX 3/FA/VIT C/BIOTIN 1 TAB TABLET GT SCH (11:00)
[2019-06-29] MEDS: ACIDOPHILUS/BULGARICUS 1 EACH TAB.CHEW GT SCH (11:00)
[2019-06-29] MEDS: METOPROLOL TARTRATE 25 MG TABLET GT SCH ×2 (11:00→21:18)
[2019-06-29] MEDS: CHLORHEXIDINE GLUCONATE 15 ML UDC MM SCH ×2 (11:00→21:19)
[2019-06-29] MEDS: HYDROGEN PEROXIDE 480 ML BOTTLE TP SCH ×2 (11:00→21:15)
[2019-06-29] MEDS: LINAGLIPTIN 5 MG TABLET GT SCH (11:00)
[2019-06-29] MEDS: POTASSIUM CHLORIDE 20MEQ TAB GT SCH (11:00)
[2019-06-29] MEDS: DORZOLAMIDE OPTH 2% 10 ML BOTTLE EACHEYE SCH ×3 (11:00→17:26)
[2019-06-29] MEDS: DOXYCYCLINE HYCLATE (100 MG) 100 MG TABLET GT SCH ×2 (11:00→21:19)
[2019-06-29] MEDS: ACETAMINOPHEN 650 MG/20 ML UDC- SA PATIENTS-PAIN ONLY GT SCH ×2 (11:00→21:19)
[2019-06-29] MEDS: ASCORBIC ACID 500 MG TABLET GT SCH ×2 (11:00→17:26)
[2019-06-29] MEDS: PredniSONE SOLUTION 5 MG/5 ML UDC GT SCH (11:00)
[2019-06-29] MEDS: NEPRO 1,000 ML BOTTLE GT PRN (11:30)
[2019-06-29] MEDS: POVIDONE-IODINE OINT 28.4 GM TUBE TP SCH ×8 (11:40→21:57)
[2019-06-29] MEDS: VITAMINS A AND D 56.7 GM TUBE TP SCH ×2 (11:40→21:58)
[2019-06-29] MEDS: Z GUARD REMEDY 4 OZ OINT TP SCH ×2 (11:40→21:57)
[2019-06-29 20:26] VITALS: BP 122/69
[2019-06-29] MEDS: TAMSULOSIN 0.4 MG CAP.SR.24H GT SCH (21:19)
[2019-06-29] MEDS: LATANOPROST EYE DROP 0.005% 2.5 ML BOTTLE EACHEYE SCH (21:19)
[2019-06-29] MEDS: ATORVASTATIN 10 MG TABLET GT SCH (21:20)
[2019-06-29] MEDS: INSULIN GLARGINE, 100 UNIT/ML CARTRIDGE SQ SCH (21:20)
[2019-06-30] MEDS: BLOOD SUGAR DIAGNOSTIC 1 EACH STRIP IN SCH ×4 (00:26→17:27)
[2019-06-30] MEDS: SIMETHICONE SUSP 40 MG/0.6 ML BOTTLE GT SCH ×4 (00:26→17:27)
[2019-06-30] MEDS: INSULIN REGULAR, HUMAN 100 UNIT/ML 10 ML VIAL SQ SCH ×4 (00:27→17:28)
[2019-06-30] MEDS: ALBUTEROL FS 2.5 MG/0.5 ML VIAL.NEB NEB SCH ×4 (01:27→19:36)
[2019-06-30] MEDS: IPRATROPIUM NEB FS 0.5 MG/2.5 ML AMPUL.NEB IH SCH ×4 (01:27→19:36)
[2019-06-30] MEDS: REGLAN GT SCH ×3 (05:31→20:25)
[2019-06-30] MEDS: OMEPRAZOLE 20 MG CAPSULE.DR GT SCH (05:31)
[2019-06-30] MEDS: PROSTAT (PYXIS) 30 ML UDC GT SCH ×3 (05:31→20:28)
[2019-06-30] MEDS: LACOSAMIDE ORAL SOLN 50 MG/5 ML UDC GT SCH ×2 (05:31→17:27)
[2019-06-30 07:28] VITALS: BP 123/77
[2019-06-30] MEDS: HYDROGEN PEROXIDE 480 ML BOTTLE TP SCH ×2 (09:00→22:08)
[2019-06-30] MEDS: NEPRO 1,000 ML BOTTLE GT PRN (09:15)
[2019-06-30] MEDS: VIT B CMPLX 3/FA/VIT C/BIOTIN 1 TAB TABLET GT SCH (09:25)
[2019-06-30] MEDS: DORZOLAMIDE OPTH 2% 10 ML BOTTLE EACHEYE SCH ×3 (09:25→17:27)
[2019-06-30] MEDS: LINAGLIPTIN 5 MG TABLET GT SCH (09:25)
[2019-06-30] MEDS: DOXYCYCLINE HYCLATE (100 MG) 100 MG TABLET GT SCH ×2 (09:25→20:28)
[2019-06-30] MEDS: FINASTERIDE (5 MG) 5 MG TABLET GT SCH (09:25)
[2019-06-30] MEDS: ASCORBIC ACID 500 MG TABLET GT SCH ×2 (09:25→17:27)
[2019-06-30] MEDS: POTASSIUM CHLORIDE 20MEQ TAB GT SCH (09:25)
[2019-06-30] MEDS: ACETAMINOPHEN 650 MG/20 ML UDC- SA PATIENTS-PAIN ONLY GT SCH ×2 (09:25→20:28)
[2019-06-30] MEDS: ACIDOPHILUS/BULGARICUS 1 EACH TAB.CHEW GT SCH (09:25)
[2019-06-30] MEDS: PredniSONE SOLUTION 5 MG/5 ML UDC GT SCH (09:25)
[2019-06-30] MEDS: METOPROLOL TARTRATE 25 MG TABLET GT SCH ×2 (09:26→20:28)
[2019-06-30] MEDS: Z GUARD REMEDY 4 OZ OINT TP SCH ×2 (10:00→20:29)
[2019-06-30] MEDS: POVIDONE-IODINE OINT 28.4 GM TUBE TP SCH ×8 (10:00→20:28)
[2019-06-30] MEDS: VITAMINS A AND D 56.7 GM TUBE TP SCH ×2 (10:00→20:29)
[2019-06-30] MEDS: CHLORHEXIDINE GLUCONATE 15 ML UDC MM SCH ×2 (10:00→20:28)
[2019-06-30] MEDS: ATORVASTATIN 10 MG TABLET GT SCH (21:32)
[2019-06-30] MEDS: LATANOPROST EYE DROP 0.005% 2.5 ML BOTTLE EACHEYE SCH (21:32)
[2019-06-30] MEDS: TAMSULOSIN 0.4 MG CAP.SR.24H GT SCH (21:32)
[2019-06-30] MEDS: INSULIN GLARGINE, 100 UNIT/ML CARTRIDGE SQ SCH (21:33)
[2019-06-30 22:42] VITALS: BP 145/65
[2019-07-01] MEDS: SIMETHICONE SUSP 40 MG/0.6 ML BOTTLE GT SCH ×4 (00:19→17:58)
[2019-07-01] MEDS: BLOOD SUGAR DIAGNOSTIC 1 EACH STRIP IN SCH ×4 (00:19→17:58)
[2019-07-01] MEDS: INSULIN REGULAR, HUMAN 100 UNIT/ML 10 ML VIAL SQ SCH ×4 (00:20→18:00)
[2019-07-01] MEDS: IPRATROPIUM NEB FS 0.5 MG/2.5 ML AMPUL.NEB IH SCH ×4 (02:01→19:58)
[2019-07-01] MEDS: ALBUTEROL FS 2.5 MG/0.5 ML VIAL.NEB NEB SCH ×4 (02:01→19:58)
[2019-07-01] MEDS: REGLAN GT SCH ×3 (05:24→20:22)
[2019-07-01] MEDS: PROSTAT (PYXIS) 30 ML UDC GT SCH ×3 (05:24→20:23)
[2019-07-01] MEDS: OMEPRAZOLE 20 MG CAPSULE.DR GT SCH (05:25)
[2019-07-01] MEDS: LACOSAMIDE ORAL SOLN 50 MG/5 ML UDC GT SCH ×2 (05:26→17:58)
[2019-07-01 07:46] VITALS: BP 100/59
[2019-07-01] MEDS: PredniSONE SOLUTION 5 MG/5 ML UDC GT SCH (09:00)
[2019-07-01] MEDS: LINAGLIPTIN 5 MG TABLET GT SCH (09:00)
[2019-07-01] MEDS: METOPROLOL TARTRATE 25 MG TABLET GT SCH ×2 (09:00→20:27)
[2019-07-01] MEDS: CHLORHEXIDINE GLUCONATE 15 ML UDC MM SCH ×2 (09:00→20:25)
[2019-07-01] MEDS: DORZOLAMIDE OPTH 2% 10 ML BOTTLE EACHEYE SCH ×3 (09:00→17:58)
[2019-07-01] MEDS: DOXYCYCLINE HYCLATE (100 MG) 100 MG TABLET GT SCH ×2 (09:00→20:25)
[2019-07-01] MEDS: FINASTERIDE (5 MG) 5 MG TABLET GT SCH (09:00)
[2019-07-01] MEDS: ACETAMINOPHEN 650 MG/20 ML UDC- SA PATIENTS-PAIN ONLY GT SCH ×2 (09:00→20:24)
[2019-07-01] MEDS: ASCORBIC ACID 500 MG TABLET GT SCH ×2 (09:00→17:58)
[2019-07-01] MEDS: VIT B CMPLX 3/FA/VIT C/BIOTIN 1 TAB TABLET GT SCH (09:00)
[2019-07-01] MEDS: ACIDOPHILUS/BULGARICUS 1 EACH TAB.CHEW GT SCH (09:00)
[2019-07-01] MEDS: POTASSIUM CHLORIDE 20MEQ TAB GT SCH (09:00)
[2019-07-01] MEDS: HYDROGEN PEROXIDE 480 ML BOTTLE TP SCH ×2 (09:00→19:58)
[2019-07-01] MEDS: VITAMINS A AND D 56.7 GM TUBE TP SCH ×2 (10:30→20:25)
[2019-07-01] MEDS: POVIDONE-IODINE OINT 28.4 GM TUBE TP SCH ×8 (10:30→20:25)
[2019-07-01] MEDS: Z GUARD REMEDY 4 OZ OINT TP SCH ×2 (10:30→20:25)
[2019-07-01] MEDS: NEPRO 1,000 ML BOTTLE GT PRN (11:03)
--- NOTE | 2019-07-01 20:08 | NUR ---
RT NOTE: RECEIVED TRACH PT ON COOL AEROSOL. WILL PLACE PT ON VENT AT MIDNIGHT PER MD ORDER. TRACH IS PATENT AND SECURED. TRACH CARE DONE. CENTER HUMAN RESOURCES MANAGER DONE. Q6 BREATHING TX GIVEN WITH NO ADVERSE REACTION NOTED. SX DONE PRN. NO RESP DISTRESS AT THIS TIME. WILL CONT TO MONITOR PT. Addendum: 07/02/19 at 0339 by RAMYA HARKINS RT Amended: Links added.
[2019-07-01 21:00] VITALS: BP 143/85
[2019-07-01] MEDS: LATANOPROST EYE DROP 0.005% 2.5 ML BOTTLE EACHEYE SCH (21:16)
[2019-07-01] MEDS: TAMSULOSIN 0.4 MG CAP.SR.24H GT SCH (21:16)
[2019-07-01] MEDS: ATORVASTATIN 10 MG TABLET GT SCH (21:16)
[2019-07-01] MEDS: INSULIN GLARGINE, 100 UNIT/ML CARTRIDGE SQ SCH (21:20)
[2019-07-02] MEDS: INSULIN REGULAR, HUMAN 100 UNIT/ML 10 ML VIAL SQ SCH ×5 (00:01→23:00)
[2019-07-02] MEDS: IPRATROPIUM NEB FS 0.5 MG/2.5 ML AMPUL.NEB IH SCH ×4 (02:06→20:03)
[2019-07-02] MEDS: ALBUTEROL FS 2.5 MG/0.5 ML VIAL.NEB NEB SCH ×4 (02:06→20:03)
[2019-07-02] MEDS: BLOOD SUGAR DIAGNOSTIC 1 EACH STRIP IN SCH ×5 (05:38→23:00)
[2019-07-02] MEDS: OMEPRAZOLE 20 MG CAPSULE.DR GT SCH (05:38)
[2019-07-02] MEDS: SIMETHICONE SUSP 40 MG/0.6 ML BOTTLE GT SCH ×5 (05:38→23:00)
[2019-07-02] MEDS: REGLAN GT SCH ×3 (05:38→20:08)
[2019-07-02] MEDS: PROSTAT (PYXIS) 30 ML UDC GT SCH ×3 (05:38→20:06)
[2019-07-02] MEDS: LACOSAMIDE ORAL SOLN 50 MG/5 ML UDC GT SCH ×2 (05:38→17:15)
[2019-07-02] MEDS: HYDROGEN PEROXIDE 480 ML BOTTLE TP SCH ×2 (09:00→20:09)
[2019-07-02] MEDS: METOPROLOL TARTRATE 25 MG TABLET GT SCH ×3 (09:00→20:15)
[2019-07-02] MEDS: VIT B CMPLX 3/FA/VIT C/BIOTIN 1 TAB TABLET GT SCH (09:00)
[2019-07-02] MEDS: LINAGLIPTIN 5 MG TABLET GT SCH (09:00)
[2019-07-02] MEDS: PredniSONE SOLUTION 5 MG/5 ML UDC GT SCH ×2 (09:00)
[2019-07-02] MEDS: ASCORBIC ACID 500 MG TABLET GT SCH ×3 (09:00→17:14)
[2019-07-02] MEDS: POTASSIUM CHLORIDE 20MEQ TAB GT SCH (09:00)
[2019-07-02] MEDS: DORZOLAMIDE OPTH 2% 10 ML BOTTLE EACHEYE SCH ×3 (09:00→17:14)
[2019-07-02] MEDS: DOXYCYCLINE HYCLATE (100 MG) 100 MG TABLET GT SCH ×3 (09:00→20:05)
[2019-07-02] MEDS: ACIDOPHILUS/BULGARICUS 1 EACH TAB.CHEW GT SCH (09:00)
[2019-07-02] MEDS: FINASTERIDE (5 MG) 5 MG TABLET GT SCH (09:00)
[2019-07-02] MEDS: CHLORHEXIDINE GLUCONATE 15 ML UDC MM SCH ×3 (09:00→20:10)
[2019-07-02] MEDS: ACETAMINOPHEN 650 MG/20 ML UDC- SA PATIENTS-PAIN ONLY GT SCH ×2 (10:30→20:13)
[2019-07-02] MEDS: VITAMINS A AND D 56.7 GM TUBE TP SCH ×2 (11:00→20:09)
[2019-07-02] MEDS: POVIDONE-IODINE OINT 28.4 GM TUBE TP SCH ×8 (11:00→20:09)
[2019-07-02] MEDS: Z GUARD REMEDY 4 OZ OINT TP SCH ×2 (11:00→20:09)
--- NOTE | 2019-07-02 15:00 | NUR ---
Seen by Dr Garduno. He ordered to taper Prednisone from 10 mg to 5 mg via GT daily x 1 week then DC. He reviewed pt's blood sugars. Notified pt's son.
[2019-07-02] MEDS: NEPRO 1,000 ML BOTTLE GT PRN (17:18)
[2019-07-02 20:56] VITALS: BP 137/77
--- NOTE | 2019-07-02 21:16 | NUR ---
RT NOTE PT RECEIVED TRACHED ON COOL AEROSOL @ 28%. AMBU BAG/BACK UP TRACH @ BEDSIDE. TX GIVEN, NO ADVERSE REACTIONS NOTED. SX DONE, TRACH SECURED AND PATENT. WATER LEVEL GOOD. NO SOB NOTED. CONT. PULSE OX CONNECTED. WILL MONITOR T/O SHIFT. WILL PLACE ON VENT @ 0000 PER MD ORDER. Addendum: 07/02/19 at 2116 by GINGER YOU RT Amended: Links added.
[2019-07-02] MEDS: TAMSULOSIN 0.4 MG CAP.SR.24H GT SCH (22:52)
[2019-07-02] MEDS: LATANOPROST EYE DROP 0.005% 2.5 ML BOTTLE EACHEYE SCH (22:52)
[2019-07-02] MEDS: ATORVASTATIN 10 MG TABLET GT SCH (22:52)
[2019-07-02] MEDS: INSULIN GLARGINE, 100 UNIT/ML CARTRIDGE SQ SCH (22:54)
[2019-07-03] MEDS: IPRATROPIUM NEB FS 0.5 MG/2.5 ML AMPUL.NEB IH SCH ×4 (02:04→19:43)
[2019-07-03] MEDS: ALBUTEROL FS 2.5 MG/0.5 ML VIAL.NEB NEB SCH ×4 (02:04→19:43)
[2019-07-03] MEDS: REGLAN GT SCH ×3 (05:53→21:56)
[2019-07-03] MEDS: PROSTAT (PYXIS) 30 ML UDC GT SCH ×3 (05:54→21:57)
[2019-07-03] MEDS: OMEPRAZOLE 20 MG CAPSULE.DR GT SCH (05:55)
[2019-07-03] MEDS: BLOOD SUGAR DIAGNOSTIC 1 EACH STRIP IN SCH ×3 (05:55→17:35)
[2019-07-03] MEDS: LACOSAMIDE ORAL SOLN 50 MG/5 ML UDC GT SCH ×2 (05:56→17:35)
[2019-07-03] MEDS: INSULIN REGULAR, HUMAN 100 UNIT/ML 10 ML VIAL SQ SCH ×3 (05:58→17:37)
[2019-07-03] MEDS: SIMETHICONE SUSP 40 MG/0.6 ML BOTTLE GT SCH ×3 (06:02→17:34)
[2019-07-03 07:50] VITALS: BP 117/56
[2019-07-03] MEDS: VITAMINS A AND D 56.7 GM TUBE TP SCH ×2 (09:00→21:58)
[2019-07-03] MEDS: Z GUARD REMEDY 4 OZ OINT TP SCH ×2 (09:00→21:58)
[2019-07-03] MEDS: HYDROGEN PEROXIDE 480 ML BOTTLE TP SCH ×2 (09:00→21:08)
[2019-07-03] MEDS: ACIDOPHILUS/BULGARICUS 1 EACH TAB.CHEW GT SCH (09:53)
[2019-07-03] MEDS: DORZOLAMIDE OPTH 2% 10 ML BOTTLE EACHEYE SCH ×3 (09:53→17:34)
[2019-07-03] MEDS: ACETAMINOPHEN 650 MG/20 ML UDC- SA PATIENTS-PAIN ONLY GT SCH ×2 (09:54→21:57)
[2019-07-03] MEDS: ASCORBIC ACID 500 MG TABLET GT SCH ×2 (09:54→17:34)
[2019-07-03] MEDS: LINAGLIPTIN 5 MG TABLET GT SCH (09:54)
[2019-07-03] MEDS: CHLORHEXIDINE GLUCONATE 15 ML UDC MM SCH ×2 (09:54→21:57)
[2019-07-03] MEDS: PredniSONE SOLUTION 5 MG/5 ML UDC GT SCH (09:54)
[2019-07-03] MEDS: VIT B CMPLX 3/FA/VIT C/BIOTIN 1 TAB TABLET GT SCH (09:54)
[2019-07-03] MEDS: METOPROLOL TARTRATE 25 MG TABLET GT SCH ×2 (09:54→21:57)
[2019-07-03] MEDS: DOXYCYCLINE HYCLATE (100 MG) 100 MG TABLET GT SCH ×2 (09:54→21:57)
[2019-07-03] MEDS: FINASTERIDE (5 MG) 5 MG TABLET GT SCH (09:54)
[2019-07-03] MEDS: POTASSIUM CHLORIDE 20MEQ TAB GT SCH (09:54)
[2019-07-03] MEDS: POVIDONE-IODINE OINT 28.4 GM TUBE TP SCH ×8 (10:30→21:57)
--- NOTE | 2019-07-03 13:30 | NUR ---
The pt.'s family was not able to attend this month's Family Support Group.
[2019-07-03] MEDS: NEPRO 1,000 ML BOTTLE GT PRN (17:46)
[2019-07-03 20:35] VITALS: BP 114/89
--- NOTE | 2019-07-03 21:18 | NUR ---
PT RECEIVE STABLE ON CA 28%, TRACH PATENT AND SECURED, SIGRID CHENG AND ASHLYN BAG IS AT BEDSIDE Addendum: 07/03/19 at 2118 by TORSTEN STARKEY RT Amended: Links added.
[2019-07-03] MEDS: ATORVASTATIN 10 MG TABLET GT SCH (21:58)
[2019-07-03] MEDS: TAMSULOSIN 0.4 MG CAP.SR.24H GT SCH (21:58)
[2019-07-03] MEDS: LATANOPROST EYE DROP 0.005% 2.5 ML BOTTLE EACHEYE SCH (21:58)
[2019-07-03] MEDS: INSULIN GLARGINE, 100 UNIT/ML CARTRIDGE SQ SCH (21:59)
[2019-07-04] MEDS: SIMETHICONE SUSP 40 MG/0.6 ML BOTTLE GT SCH ×4 (00:05→17:21)
[2019-07-04] MEDS: BLOOD SUGAR DIAGNOSTIC 1 EACH STRIP IN SCH ×4 (00:05→17:21)
[2019-07-04] MEDS: INSULIN REGULAR, HUMAN 100 UNIT/ML 10 ML VIAL SQ SCH ×4 (00:06→17:21)
[2019-07-04] MEDS: IPRATROPIUM NEB FS 0.5 MG/2.5 ML AMPUL.NEB IH SCH ×4 (00:50→19:47)
[2019-07-04] MEDS: ALBUTEROL FS 2.5 MG/0.5 ML VIAL.NEB NEB SCH ×4 (00:50→19:47)
[2019-07-04] MEDS: PROSTAT (PYXIS) 30 ML UDC GT SCH ×3 (05:20→21:15)
[2019-07-04] MEDS: OMEPRAZOLE 20 MG CAPSULE.DR GT SCH (05:20)
[2019-07-04] MEDS: REGLAN GT SCH ×3 (05:20→21:14)
[2019-07-04] MEDS: LACOSAMIDE ORAL SOLN 50 MG/5 ML UDC GT SCH ×2 (05:21→17:21)
--- NOTE | 2019-07-04 05:50 | NUR ---
Patient picked up for dialysis to [facility]. Vital signs stable.
[2019-07-04] MEDS: VIT B CMPLX 3/FA/VIT C/BIOTIN 1 TAB TABLET GT SCH (10:30)
[2019-07-04] MEDS: ACIDOPHILUS/BULGARICUS 1 EACH TAB.CHEW GT SCH (10:30)
[2019-07-04] MEDS: FINASTERIDE (5 MG) 5 MG TABLET GT SCH (10:30)
[2019-07-04] MEDS: POTASSIUM CHLORIDE 20MEQ TAB GT SCH (10:30)
[2019-07-04] MEDS: ACETAMINOPHEN 650 MG/20 ML UDC- SA PATIENTS-PAIN ONLY GT SCH ×2 (10:30→21:15)
[2019-07-04] MEDS: CHLORHEXIDINE GLUCONATE 15 ML UDC MM SCH ×2 (10:30→21:15)
[2019-07-04] MEDS: LINAGLIPTIN 5 MG TABLET GT SCH (10:30)
[2019-07-04] MEDS: ASCORBIC ACID 500 MG TABLET GT SCH ×2 (10:30→17:21)
[2019-07-04] MEDS: PredniSONE SOLUTION 5 MG/5 ML UDC GT SCH (10:30)
[2019-07-04] MEDS: DOXYCYCLINE HYCLATE (100 MG) 100 MG TABLET GT SCH ×2 (10:30→21:15)
[2019-07-04] MEDS: METOPROLOL TARTRATE 25 MG TABLET GT SCH ×2 (10:30→21:15)
[2019-07-04] MEDS: DORZOLAMIDE OPTH 2% 10 ML BOTTLE EACHEYE SCH ×3 (10:30→17:21)
--- NOTE | 2019-07-04 10:39 | NUR ---
RT PATIENT RETURNED FROM DIALYSIS. TRACH APPEARS CLEAN AND IN PROPER POSITION. COOL AERO SETUP CHECKED AND FUNCTIONING PROPERLY. MORNING RESP HHN TX GIVEN UPON RETURN FROM DIALYSIS. PATIENT SUCTIONED WITH MOD AMT OF WHITE SEMI-THICK SECRETIONS. BACK UP TRACH AND AMBU BAG AT [facility]. PATIENT APPEARS COMFORTABLE AND IN NO DISTRESS. CONT CURRENT PLAN OF CARE.
[2019-07-04] MEDS: VITAMINS A AND D 56.7 GM TUBE TP SCH ×2 (11:00→21:16)
[2019-07-04] MEDS: Z GUARD REMEDY 4 OZ OINT TP SCH ×2 (11:00→21:16)
[2019-07-04] MEDS: POVIDONE-IODINE OINT 28.4 GM TUBE TP SCH ×9 (11:00→21:16)
[2019-07-04] MEDS: HYDROGEN PEROXIDE 480 ML BOTTLE TP SCH ×2 (13:52→20:12)
--- NOTE | 2019-07-04 14:06 | NUR ---
CHANI followed up with Dr. Manriquez request for information about [facility] through the [facility]. CHANI called [facility] [phone] and spoke to a collections representative, Quita who stated that she would need to speak to the pt.s family directly. Per Althea Aragon, the pt.s family can call her to her direct line [phone] and she would be able to let them know if the pt. is eligible for lobsterman care with the [facility] in about 15 minutes[address] CHANI [address]. Johns [phone] to relay above stated information. Call went to voicemail CHANI left detailed message and call back number for [facility] and CHANI.
--- NOTE | 2019-07-04 20:05 | NUR ---
PT RCVD TRACH'D ON COOL AEROSOL WITH CHARTED SETTINGS. PT TONY TX WELL. SX DONE. PT TRACH IS PATENT AND SECURE. AMBU BAG AT BEDSIDE. NO SOB NOTED. Addendum: 07/04/19 at 2006 by TITO GARCES RT Amended: Links added.
[2019-07-04 20:39] VITALS: BP 119/75
[2019-07-04] MEDS: LATANOPROST EYE DROP 0.005% 2.5 ML BOTTLE EACHEYE SCH (21:16)
[2019-07-04] MEDS: ATORVASTATIN 10 MG TABLET GT SCH (21:16)
[2019-07-04] MEDS: TAMSULOSIN 0.4 MG CAP.SR.24H GT SCH (21:16)
[2019-07-04] MEDS: INSULIN GLARGINE, 100 UNIT/ML CARTRIDGE SQ SCH (21:37)
[2019-07-05] MEDS: SIMETHICONE SUSP 40 MG/0.6 ML BOTTLE GT SCH ×5 (00:23→23:59)
[2019-07-05] MEDS: BLOOD SUGAR DIAGNOSTIC 1 EACH STRIP IN SCH ×5 (00:23→23:59)
[2019-07-05] MEDS: INSULIN REGULAR, HUMAN 100 UNIT/ML 10 ML VIAL SQ SCH ×4 (00:24→17:39)
[2019-07-05] MEDS: ALBUTEROL FS 2.5 MG/0.5 ML VIAL.NEB NEB SCH ×4 (00:32→19:40)
[2019-07-05] MEDS: IPRATROPIUM NEB FS 0.5 MG/2.5 ML AMPUL.NEB IH SCH ×4 (00:32→19:40)
[2019-07-05] MEDS: NEPRO 1,000 ML BOTTLE GT PRN (00:36)
[2019-07-05] MEDS: PROSTAT (PYXIS) 30 ML UDC GT SCH ×3 (05:04→20:58)
[2019-07-05] MEDS: REGLAN GT SCH ×3 (05:04→20:57)
[2019-07-05] MEDS: OMEPRAZOLE 20 MG CAPSULE.DR GT SCH (05:04)
[2019-07-05] MEDS: LACOSAMIDE ORAL SOLN 50 MG/5 ML UDC GT SCH ×2 (05:18→17:39)
[2019-07-05 07:46] VITALS: BP 142/64
[2019-07-05] MEDS: HYDROGEN PEROXIDE 480 ML BOTTLE TP SCH ×2 (07:57→21:07)
[2019-07-05] MEDS: ACIDOPHILUS/BULGARICUS 1 EACH TAB.CHEW GT SCH (09:40)
[2019-07-05] MEDS: DORZOLAMIDE OPTH 2% 10 ML BOTTLE EACHEYE SCH ×3 (09:40→17:39)
[2019-07-05] MEDS: VIT B CMPLX 3/FA/VIT C/BIOTIN 1 TAB TABLET GT SCH (09:41)
[2019-07-05] MEDS: LINAGLIPTIN 5 MG TABLET GT SCH (09:41)
[2019-07-05] MEDS: FINASTERIDE (5 MG) 5 MG TABLET GT SCH (09:41)
[2019-07-05] MEDS: ASCORBIC ACID 500 MG TABLET GT SCH ×2 (09:41→17:39)
[2019-07-05] MEDS: ACETAMINOPHEN 650 MG/20 ML UDC- SA PATIENTS-PAIN ONLY GT SCH ×2 (09:41→20:58)
[2019-07-05] MEDS: POTASSIUM CHLORIDE 20MEQ TAB GT SCH (09:41)
[2019-07-05] MEDS: DOXYCYCLINE HYCLATE (100 MG) 100 MG TABLET GT SCH ×2 (09:41→20:58)
[2019-07-05] MEDS: METOPROLOL TARTRATE 25 MG TABLET GT SCH ×2 (09:41→20:57)
[2019-07-05] MEDS: PredniSONE SOLUTION 5 MG/5 ML UDC GT SCH (09:41)
[2019-07-05] MEDS: CHLORHEXIDINE GLUCONATE 15 ML UDC MM SCH ×2 (09:41→20:58)
[2019-07-05] MEDS: Z GUARD REMEDY 4 OZ OINT TP SCH ×2 (10:15→20:58)
[2019-07-05] MEDS: VITAMINS A AND D 56.7 GM TUBE TP SCH ×2 (10:15→20:59)
[2019-07-05] MEDS: POVIDONE-IODINE OINT 28.4 GM TUBE TP SCH ×10 (10:15→20:58)
[2019-07-05 20:22] VITALS: BP 123/70
[2019-07-05] MEDS: TAMSULOSIN 0.4 MG CAP.SR.24H GT SCH (21:03)
[2019-07-05] MEDS: LATANOPROST EYE DROP 0.005% 2.5 ML BOTTLE EACHEYE SCH (21:03)
[2019-07-05] MEDS: ATORVASTATIN 10 MG TABLET GT SCH (21:03)
[2019-07-05] MEDS: INSULIN GLARGINE, 100 UNIT/ML CARTRIDGE SQ SCH (21:04)
[2019-07-06] MEDS: NEPRO 1,000 ML BOTTLE GT PRN (01:30)
[2019-07-06] MEDS: ALBUTEROL FS 2.5 MG/0.5 ML VIAL.NEB NEB SCH ×4 (01:50→19:34)
[2019-07-06] MEDS: IPRATROPIUM NEB FS 0.5 MG/2.5 ML AMPUL.NEB IH SCH ×4 (01:50→19:34)
[2019-07-06] MEDS: SIMETHICONE SUSP 40 MG/0.6 ML BOTTLE GT SCH ×3 (05:36→17:39)
[2019-07-06] MEDS: REGLAN GT SCH ×3 (05:36→21:00)
[2019-07-06] MEDS: OMEPRAZOLE 20 MG CAPSULE.DR GT SCH (05:36)
[2019-07-06] MEDS: PROSTAT (PYXIS) 30 ML UDC GT SCH ×3 (05:36→21:00)
[2019-07-06] MEDS: LACOSAMIDE ORAL SOLN 50 MG/5 ML UDC GT SCH ×2 (05:36→17:39)
[2019-07-06] MEDS: BLOOD SUGAR DIAGNOSTIC 1 EACH STRIP IN SCH ×3 (05:36→17:39)
[2019-07-06] MEDS: INSULIN REGULAR, HUMAN 100 UNIT/ML 10 ML VIAL SQ SCH ×4 (05:37→17:45)
[2019-07-06] MEDS: HYDROGEN PEROXIDE 480 ML BOTTLE TP SCH ×2 (09:00→21:00)
[2019-07-06] MEDS: DOXYCYCLINE HYCLATE (100 MG) 100 MG TABLET GT SCH ×2 (11:10→21:00)
[2019-07-06] MEDS: ACETAMINOPHEN 650 MG/20 ML UDC- SA PATIENTS-PAIN ONLY GT SCH ×2 (11:10→21:00)
[2019-07-06] MEDS: ACIDOPHILUS/BULGARICUS 1 EACH TAB.CHEW GT SCH (11:10)
[2019-07-06] MEDS: DORZOLAMIDE OPTH 2% 10 ML BOTTLE EACHEYE SCH ×3 (11:10→17:39)
[2019-07-06] MEDS: VIT B CMPLX 3/FA/VIT C/BIOTIN 1 TAB TABLET GT SCH (11:10)
[2019-07-06] MEDS: FINASTERIDE (5 MG) 5 MG TABLET GT SCH (11:10)
[2019-07-06] MEDS: METOPROLOL TARTRATE 25 MG TABLET GT SCH ×2 (11:10→21:00)
[2019-07-06] MEDS: PredniSONE SOLUTION 5 MG/5 ML UDC GT SCH (11:10)
[2019-07-06] MEDS: LINAGLIPTIN 5 MG TABLET GT SCH (11:10)
[2019-07-06] MEDS: POTASSIUM CHLORIDE 20MEQ TAB GT SCH (11:10)
[2019-07-06] MEDS: CHLORHEXIDINE GLUCONATE 15 ML UDC MM SCH ×2 (11:10→21:00)
[2019-07-06] MEDS: ASCORBIC ACID 500 MG TABLET GT SCH ×2 (11:10→17:39)
[2019-07-06] MEDS: VITAMINS A AND D 56.7 GM TUBE TP SCH ×2 (11:40→21:00)
[2019-07-06] MEDS: POVIDONE-IODINE OINT 28.4 GM TUBE TP SCH ×10 (11:40→21:00)
[2019-07-06] MEDS: Z GUARD REMEDY 4 OZ OINT TP SCH ×2 (11:40→21:00)
[2019-07-06 19:46] VITALS: BP 104/46
[2019-07-06] MEDS: ATORVASTATIN 10 MG TABLET GT SCH (22:41)
[2019-07-06] MEDS: LATANOPROST EYE DROP 0.005% 2.5 ML BOTTLE EACHEYE SCH (22:41)
[2019-07-06] MEDS: TAMSULOSIN 0.4 MG CAP.SR.24H GT SCH (22:41)
[2019-07-06] MEDS: INSULIN GLARGINE, 100 UNIT/ML CARTRIDGE SQ SCH (22:42)
[2019-07-07] MEDS: BLOOD SUGAR DIAGNOSTIC 1 EACH STRIP IN SCH ×5 (00:01→23:33)
[2019-07-07] MEDS: SIMETHICONE SUSP 40 MG/0.6 ML BOTTLE GT SCH ×5 (00:01→23:33)
[2019-07-07] MEDS: ALBUTEROL FS 2.5 MG/0.5 ML VIAL.NEB NEB SCH ×4 (01:32→19:45)
[2019-07-07] MEDS: IPRATROPIUM NEB FS 0.5 MG/2.5 ML AMPUL.NEB IH SCH ×4 (01:32→19:45)
[2019-07-07] MEDS: NEPRO 1,000 ML BOTTLE GT PRN (02:00)
[2019-07-07] MEDS: PROSTAT (PYXIS) 30 ML UDC GT SCH ×3 (05:00→20:36)
[2019-07-07] MEDS: REGLAN GT SCH ×3 (05:00→20:36)
[2019-07-07] MEDS: OMEPRAZOLE 20 MG CAPSULE.DR GT SCH (06:02)
[2019-07-07] MEDS: LACOSAMIDE ORAL SOLN 50 MG/5 ML UDC GT SCH ×2 (06:02→17:06)
[2019-07-07] MEDS: INSULIN REGULAR, HUMAN 100 UNIT/ML 10 ML VIAL SQ SCH ×5 (06:04→23:34)
[2019-07-07 07:44] VITALS: BP 130/72
[2019-07-07] MEDS: HYDROGEN PEROXIDE 480 ML BOTTLE TP SCH ×2 (08:12→20:38)
[2019-07-07] MEDS: DORZOLAMIDE OPTH 2% 10 ML BOTTLE EACHEYE SCH ×3 (08:40→16:06)
[2019-07-07] MEDS: ACIDOPHILUS/BULGARICUS 1 EACH TAB.CHEW GT SCH (08:40)
[2019-07-07] MEDS: METOPROLOL TARTRATE 25 MG TABLET GT SCH ×2 (08:41→20:36)
[2019-07-07] MEDS: POTASSIUM CHLORIDE 20MEQ TAB GT SCH (08:42)
[2019-07-07] MEDS: PredniSONE SOLUTION 5 MG/5 ML UDC GT SCH (08:43)
[2019-07-07] MEDS: FINASTERIDE (5 MG) 5 MG TABLET GT SCH (08:43)
[2019-07-07] MEDS: ACETAMINOPHEN 650 MG/20 ML UDC- SA PATIENTS-PAIN ONLY GT SCH ×2 (08:44→20:39)
[2019-07-07] MEDS: LINAGLIPTIN 5 MG TABLET GT SCH (08:44)
[2019-07-07] MEDS: ASCORBIC ACID 500 MG TABLET GT SCH ×2 (08:45→16:06)
[2019-07-07] MEDS: CHLORHEXIDINE GLUCONATE 15 ML UDC MM SCH ×2 (08:45→20:37)
[2019-07-07] MEDS: POVIDONE-IODINE OINT 28.4 GM TUBE TP SCH ×10 (08:45→20:38)
[2019-07-07] MEDS: DOXYCYCLINE HYCLATE (100 MG) 100 MG TABLET GT SCH ×2 (08:45→20:36)
[2019-07-07] MEDS: Z GUARD REMEDY 4 OZ OINT TP SCH ×2 (08:46→20:38)
[2019-07-07] MEDS: VITAMINS A AND D 56.7 GM TUBE TP SCH ×2 (08:46→20:38)
[2019-07-07] MEDS: VIT B CMPLX 3/FA/VIT C/BIOTIN 1 TAB TABLET GT SCH (08:47)
--- NOTE | 2019-07-07 17:27 | NUR ---
RN NOTE CALLED OVER BY NERY AGUILAR AND THAT PT GTUBE CAME OUT, TESTS SUPERINTENDENT JAZMIN NOTIFIED, 20 F GTUBE REINSERTED, AWAITING FOR KUB IN ORDER TO VERIFY PLACEMENT
[2019-07-07] MEDS ORDERED: DIATR MEGLU/DIATRIZOATE SODIUM 30 ML BOTTLE (GASTROGRAPHIN) ONE (17:39)
[2019-07-07 19:52] VITALS: BP 111/54
--- NOTE | 2019-07-07 20:00 | NUR ---
SUBACUTE RN NOTE: PATIENT XR OF ABDOMEN RESULTS SHOW THAT GT IS IN PLACE. G-TUBE FEEDING OF NEPHRO AT 50ML/HR STARTED. WILL CONTINUE TO MONITOR.
[2019-07-07] MEDS: ATORVASTATIN 10 MG TABLET GT SCH (21:02)
[2019-07-07] MEDS: TAMSULOSIN 0.4 MG CAP.SR.24H GT SCH (21:02)
[2019-07-07] MEDS: LATANOPROST EYE DROP 0.005% 2.5 ML BOTTLE EACHEYE SCH (21:02)
[2019-07-07] MEDS: INSULIN GLARGINE, 100 UNIT/ML CARTRIDGE SQ SCH (21:51)
--- NOTE | 2019-07-07 21:55 | NUR ---
SUBACUTE RN NOTE: PATIENT BLOOD SUGAR LEVEL 140MG/DL, PATIENT TO RECEIVE LANTUS 30 UNITS PER MD ORDER AND TO RECEIVE 2 UNITS OF INSULIN PER SLIDING SCALE. NO S/S OF HYPER/HYPOGLYCEMIA NOTED, G-TUBE FEEDING RUNNING. WILL CONTINUE TO MONITOR.
--- NOTE | 2019-07-08 00:14 | NUR ---
RT NOTE Pt rec'd on cool aerosol 28% fio2. Pt placed on mech vent on CPAP mode per md orders. No resp distress or sob noted. Trach is patent and secured. Sx'd thick mod amt of pale yellow secretions. Alarms are set and audible. Vent plugged into red outlet. Ambu bag bedside. Will continue to monitor. Addendum: 07/08/19 at 0015 by PAUL ALMARAZ RT Amended: Links added.
[2019-07-08] MEDS: ALBUTEROL FS 2.5 MG/0.5 ML VIAL.NEB NEB SCH ×4 (00:43→19:46)
[2019-07-08] MEDS: IPRATROPIUM NEB FS 0.5 MG/2.5 ML AMPUL.NEB IH SCH ×4 (00:43→19:46)
[2019-07-08] MEDS: SIMETHICONE SUSP 40 MG/0.6 ML BOTTLE GT SCH ×3 (05:25→17:05)
[2019-07-08] MEDS: PROSTAT (PYXIS) 30 ML UDC GT SCH ×3 (05:25→21:29)
[2019-07-08] MEDS: BLOOD SUGAR DIAGNOSTIC 1 EACH STRIP IN SCH ×3 (05:25→17:06)
[2019-07-08] MEDS: OMEPRAZOLE 20 MG CAPSULE.DR GT SCH (05:25)
[2019-07-08] MEDS: REGLAN GT SCH ×3 (05:25→21:29)
[2019-07-08] MEDS: LACOSAMIDE ORAL SOLN 50 MG/5 ML UDC GT SCH ×2 (05:25→17:05)
[2019-07-08] MEDS: NEPRO 1,000 ML BOTTLE GT PRN (05:26)
--- NOTE | 2019-07-08 06:15 | NUR ---
SUBACUTE RN NOTE: PATIENT BLOOD SUGAR LEVEL 199MG/DL, PATIENT TO RECEIVE 3 UNITS OF INSULIN PER SLIDING SCALE. NO S/S OF HYPER/HYPOGLYCEMIA NOTED. WILL CONTINUE TO MONITOR.
[2019-07-08] MEDS: INSULIN REGULAR, HUMAN 100 UNIT/ML 10 ML VIAL SQ SCH ×3 (06:32→17:07)
[2019-07-08 08:06] VITALS: BP 123/58
[2019-07-08] MEDS: FINASTERIDE (5 MG) 5 MG TABLET GT SCH (09:00)
[2019-07-08] MEDS: HYDROGEN PEROXIDE 480 ML BOTTLE TP SCH ×2 (09:00→21:10)
[2019-07-08] MEDS: ASCORBIC ACID 500 MG TABLET GT SCH ×2 (09:00→16:41)
[2019-07-08] MEDS: CHLORHEXIDINE GLUCONATE 15 ML UDC MM SCH ×2 (09:00→21:30)
[2019-07-08] MEDS: LINAGLIPTIN 5 MG TABLET GT SCH (09:00)
[2019-07-08] MEDS: DOXYCYCLINE HYCLATE (100 MG) 100 MG TABLET GT SCH ×2 (09:00→21:30)
[2019-07-08] MEDS: VIT B CMPLX 3/FA/VIT C/BIOTIN 1 TAB TABLET GT SCH (09:00)
[2019-07-08] MEDS: PredniSONE SOLUTION 5 MG/5 ML UDC GT SCH (09:00)
[2019-07-08] MEDS: POTASSIUM CHLORIDE 20MEQ TAB GT SCH (09:00)
[2019-07-08] MEDS: DORZOLAMIDE OPTH 2% 10 ML BOTTLE EACHEYE SCH ×3 (09:57→16:41)
[2019-07-08] MEDS: ACIDOPHILUS/BULGARICUS 1 EACH TAB.CHEW GT SCH (09:57)
[2019-07-08] MEDS: ACETAMINOPHEN 650 MG/20 ML UDC- SA PATIENTS-PAIN ONLY GT SCH ×2 (10:00→21:30)
[2019-07-08] MEDS: METOPROLOL TARTRATE 25 MG TABLET GT SCH ×2 (10:02→21:29)
[2019-07-08] MEDS: VITAMINS A AND D 56.7 GM TUBE TP SCH ×2 (10:30→21:30)
[2019-07-08] MEDS: POVIDONE-IODINE OINT 28.4 GM TUBE TP SCH ×10 (10:30→21:30)
[2019-07-08] MEDS: Z GUARD REMEDY 4 OZ OINT TP SCH ×2 (10:30→21:30)
[2019-07-08] MEDS: LATANOPROST EYE DROP 0.005% 2.5 ML BOTTLE EACHEYE SCH (21:30)
[2019-07-08] MEDS: ATORVASTATIN 10 MG TABLET GT SCH (21:30)
[2019-07-08] MEDS: TAMSULOSIN 0.4 MG CAP.SR.24H GT SCH (21:30)
[2019-07-08] MEDS: INSULIN GLARGINE, 100 UNIT/ML CARTRIDGE SQ SCH (21:31)
--- NOTE | 2019-07-08 21:34 | NUR ---
PT RECEIVE STABLE ON 28% FIO2 VIA T MASK, TRACH PATENT AND SECURED, SIGRID CHENG AND ASHLYN BAG IS AT BEDSIDE, WILL CONTINUE TO MONITOR Addendum: 07/08/19 at 2134 by TORSTEN STARKEY RT Amended: Links added.
[2019-07-09] MEDS: BLOOD SUGAR DIAGNOSTIC 1 EACH STRIP IN SCH ×4 (00:31→17:43)
[2019-07-09] MEDS: SIMETHICONE SUSP 40 MG/0.6 ML BOTTLE GT SCH ×4 (00:31→17:22)
[2019-07-09] MEDS: INSULIN REGULAR, HUMAN 100 UNIT/ML 10 ML VIAL SQ SCH ×4 (00:32→18:12)
[2019-07-09] MEDS: IPRATROPIUM NEB FS 0.5 MG/2.5 ML AMPUL.NEB IH SCH ×4 (01:49→20:03)
[2019-07-09] MEDS: ALBUTEROL FS 2.5 MG/0.5 ML VIAL.NEB NEB SCH ×4 (01:49→20:03)
[2019-07-09] MEDS: OMEPRAZOLE 20 MG CAPSULE.DR GT SCH (05:47)
[2019-07-09] MEDS: LACOSAMIDE ORAL SOLN 50 MG/5 ML UDC GT SCH ×2 (05:47→17:24)
[2019-07-09] MEDS: PROSTAT (PYXIS) 30 ML UDC GT SCH ×3 (05:47→21:31)
[2019-07-09] MEDS: REGLAN GT SCH ×3 (05:47→21:30)
[2019-07-09 06:46] VITALS: BP 121/85
[2019-07-09] MEDS: HYDROGEN PEROXIDE 480 ML BOTTLE TP SCH ×2 (09:00→20:03)
[2019-07-09] MEDS: ACETAMINOPHEN 650 MG/20 ML UDC- SA PATIENTS-PAIN ONLY GT SCH ×2 (09:00→21:32)
[2019-07-09] MEDS: POVIDONE-IODINE OINT 28.4 GM TUBE TP SCH ×10 (09:00→21:32)
[2019-07-09] MEDS: FINASTERIDE (5 MG) 5 MG TABLET GT SCH (09:00)
[2019-07-09] MEDS: DORZOLAMIDE OPTH 2% 10 ML BOTTLE EACHEYE SCH ×3 (09:00→16:23)
[2019-07-09] MEDS: CHLORHEXIDINE GLUCONATE 15 ML UDC MM SCH ×2 (09:00→21:32)
[2019-07-09] MEDS: DOXYCYCLINE HYCLATE (100 MG) 100 MG TABLET GT SCH ×2 (09:00→21:32)
[2019-07-09] MEDS: METOPROLOL TARTRATE 25 MG TABLET GT SCH ×3 (09:00→21:00)
[2019-07-09] MEDS: VIT B CMPLX 3/FA/VIT C/BIOTIN 1 TAB TABLET GT SCH (09:00)
[2019-07-09] MEDS: ASCORBIC ACID 500 MG TABLET GT SCH ×2 (09:00→16:23)
[2019-07-09] MEDS: LINAGLIPTIN 5 MG TABLET GT SCH (09:00)
[2019-07-09] MEDS: ACIDOPHILUS/BULGARICUS 1 EACH TAB.CHEW GT SCH (09:00)
[2019-07-09] MEDS: POTASSIUM CHLORIDE 20MEQ TAB GT SCH (09:00)
[2019-07-09] MEDS: VITAMINS A AND D 56.7 GM TUBE TP SCH ×2 (09:15→21:32)
[2019-07-09] MEDS: Z GUARD REMEDY 4 OZ OINT TP SCH ×2 (09:15→21:32)
[2019-07-09 13:43] VITALS: BP 117/73
--- NOTE | 2019-07-09 20:34 | NUR ---
PT RCVD TRACH'D ON COOL AEROSOL WITH CHARTED SETTINGS. PT TONY TX WELL. SX DONE. PT TRACH IS PATENT AND SECURE. AMBU BAG AT BEDSIDE. NO SOB NOTED. Addendum: 07/09/19 at 2033 by TITO GARCES RT Amended: Links added.
[2019-07-09 20:48] VITALS: BP 114/60
[2019-07-09] MEDS: TAMSULOSIN 0.4 MG CAP.SR.24H GT SCH (21:32)
[2019-07-09] MEDS: LATANOPROST EYE DROP 0.005% 2.5 ML BOTTLE EACHEYE SCH (21:32)
[2019-07-09] MEDS: ATORVASTATIN 10 MG TABLET GT SCH (21:32)
[2019-07-09] MEDS: INSULIN GLARGINE, 100 UNIT/ML CARTRIDGE SQ SCH (21:33)
[2019-07-10] MEDS: BLOOD SUGAR DIAGNOSTIC 1 EACH STRIP IN SCH ×4 (00:19→17:53)
[2019-07-10] MEDS: SIMETHICONE SUSP 40 MG/0.6 ML BOTTLE GT SCH ×4 (00:19→17:53)
[2019-07-10] MEDS: INSULIN REGULAR, HUMAN 100 UNIT/ML 10 ML VIAL SQ SCH ×4 (00:21→18:03)
[2019-07-10] MEDS: ALBUTEROL FS 2.5 MG/0.5 ML VIAL.NEB NEB SCH ×4 (00:58→19:55)
[2019-07-10] MEDS: IPRATROPIUM NEB FS 0.5 MG/2.5 ML AMPUL.NEB IH SCH ×4 (00:58→19:55)
[2019-07-10] MEDS: LACOSAMIDE ORAL SOLN 50 MG/5 ML UDC GT SCH ×2 (05:54→17:53)
[2019-07-10] MEDS: OMEPRAZOLE 20 MG CAPSULE.DR GT SCH (05:54)
[2019-07-10] MEDS: PROSTAT (PYXIS) 30 ML UDC GT SCH ×3 (05:54→21:10)
[2019-07-10] MEDS: REGLAN GT SCH ×3 (05:54→21:10)
[2019-07-10 08:00] VITALS: BP 107/78
[2019-07-10] MEDS: DORZOLAMIDE OPTH 2% 10 ML BOTTLE EACHEYE SCH ×3 (09:36→16:25)
[2019-07-10] MEDS: ACIDOPHILUS/BULGARICUS 1 EACH TAB.CHEW GT SCH (09:36)
[2019-07-10] MEDS: ASCORBIC ACID 500 MG TABLET GT SCH ×2 (09:37→16:25)
[2019-07-10] MEDS: LINAGLIPTIN 5 MG TABLET GT SCH (09:37)
[2019-07-10] MEDS: FINASTERIDE (5 MG) 5 MG TABLET GT SCH (09:37)
[2019-07-10] MEDS: DOXYCYCLINE HYCLATE (100 MG) 100 MG TABLET GT SCH ×2 (09:37→21:11)
[2019-07-10] MEDS: VIT B CMPLX 3/FA/VIT C/BIOTIN 1 TAB TABLET GT SCH (09:37)
[2019-07-10] MEDS: METOPROLOL TARTRATE 25 MG TABLET GT SCH ×2 (09:37→21:10)
[2019-07-10] MEDS: POTASSIUM CHLORIDE 20MEQ TAB GT SCH (09:37)
[2019-07-10] MEDS: ACETAMINOPHEN 650 MG/20 ML UDC- SA PATIENTS-PAIN ONLY GT SCH ×2 (09:37→21:11)
[2019-07-10] MEDS: CHLORHEXIDINE GLUCONATE 15 ML UDC MM SCH ×2 (09:37→21:11)
[2019-07-10] MEDS: Z GUARD REMEDY 4 OZ OINT TP SCH ×2 (10:37→21:47)
[2019-07-10] MEDS: VITAMINS A AND D 56.7 GM TUBE TP SCH ×2 (10:37→21:48)
[2019-07-10] MEDS: POVIDONE-IODINE OINT 28.4 GM TUBE TP SCH ×10 (10:37→21:47)
--- NOTE | 2019-07-10 11:35 | NUR ---
CHANI contacted the pt.'s on, Dr. Johns [phone] to inform them about the Family Satisfaction Survey and its purpose. Per Dr. Johns, he would prefer that the survey be left at nursing station for him to pickling grader on his next visit. CHANI left Survey at nursing station for DR. Johns to pickling grader.
[2019-07-10] MEDS: HYDROGEN PEROXIDE 480 ML BOTTLE TP SCH ×2 (12:52→21:44)
[2019-07-10] MEDS: NEPRO 1,000 ML BOTTLE GT PRN (16:26)
[2019-07-10] MEDS: ACETAMINOPHEN 650 MG/20 ML UDC- SA PATIENTS-PAIN ONLY GT PRN (16:52)
[2019-07-10 19:47] VITALS: BP 148/70
[2019-07-10] MEDS: TAMSULOSIN 0.4 MG CAP.SR.24H GT SCH (21:11)
[2019-07-10] MEDS: LATANOPROST EYE DROP 0.005% 2.5 ML BOTTLE EACHEYE SCH (21:11)
[2019-07-10] MEDS: ATORVASTATIN 10 MG TABLET GT SCH (21:11)
[2019-07-10] MEDS: INSULIN GLARGINE, 100 UNIT/ML CARTRIDGE SQ SCH (21:21)
--- NOTE | 2019-07-10 21:53 | NUR ---
PT RECEIVE STABLE ON 285 FIO2 C/A VIA T BAR, TRACH PATENT AND SECURED SPARE TRACH AND AMBGueriat BAG IS AT BEDSIDE, WILL CONTINUE TO MONITOR Addendum: 07/10/19 at 2153 by TORSTEN STARKEY RT Amended: Links added.
[2019-07-11] MEDS: SIMETHICONE SUSP 40 MG/0.6 ML BOTTLE GT SCH ×5 (00:30→23:48)
[2019-07-11] MEDS: BLOOD SUGAR DIAGNOSTIC 1 EACH STRIP IN SCH ×5 (00:30→23:58)
[2019-07-11] MEDS: INSULIN REGULAR, HUMAN 100 UNIT/ML 10 ML VIAL SQ SCH ×5 (00:33→23:59)
[2019-07-11] MEDS: ALBUTEROL FS 2.5 MG/0.5 ML VIAL.NEB NEB SCH ×4 (01:01→20:08)
[2019-07-11] MEDS: IPRATROPIUM NEB FS 0.5 MG/2.5 ML AMPUL.NEB IH SCH ×4 (01:01→20:08)
[2019-07-11 03:43] VITALS: BP 117/77
[2019-07-11] MEDS: REGLAN GT SCH ×3 (05:09→21:35)
[2019-07-11] MEDS: PROSTAT (PYXIS) 30 ML UDC GT SCH ×3 (05:09→21:36)
[2019-07-11] MEDS: LACOSAMIDE ORAL SOLN 50 MG/5 ML UDC GT SCH ×2 (05:10→18:02)
[2019-07-11] MEDS: OMEPRAZOLE 20 MG CAPSULE.DR GT SCH (05:10)
--- NOTE | 2019-07-11 06:05 | NUR ---
Patient picked up by [facility] for dialysis at [facility]. Vital signs stable.
[2019-07-11] MEDS: POTASSIUM CHLORIDE 20MEQ TAB GT SCH (11:15)
[2019-07-11] MEDS: ACIDOPHILUS/BULGARICUS 1 EACH TAB.CHEW GT SCH (11:15)
[2019-07-11] MEDS: VIT B CMPLX 3/FA/VIT C/BIOTIN 1 TAB TABLET GT SCH (11:15)
[2019-07-11] MEDS: METOPROLOL TARTRATE 25 MG TABLET GT SCH ×2 (11:15→21:36)
[2019-07-11] MEDS: ASCORBIC ACID 500 MG TABLET GT SCH ×2 (11:15→17:00)
[2019-07-11] MEDS: FINASTERIDE (5 MG) 5 MG TABLET GT SCH (11:15)
[2019-07-11] MEDS: DORZOLAMIDE OPTH 2% 10 ML BOTTLE EACHEYE SCH ×3 (11:15→17:00)
[2019-07-11] MEDS: DOXYCYCLINE HYCLATE (100 MG) 100 MG TABLET GT SCH ×2 (11:15→21:36)
[2019-07-11] MEDS: LINAGLIPTIN 5 MG TABLET GT SCH (11:15)
[2019-07-11] MEDS: ACETAMINOPHEN 650 MG/20 ML UDC- SA PATIENTS-PAIN ONLY GT SCH ×2 (11:15→21:36)
[2019-07-11] MEDS: CHLORHEXIDINE GLUCONATE 15 ML UDC MM SCH ×2 (11:15→21:36)
[2019-07-11] MEDS: Z GUARD REMEDY 4 OZ OINT TP SCH ×2 (11:45→21:51)
[2019-07-11] MEDS: VITAMINS A AND D 56.7 GM TUBE TP SCH ×2 (11:45→21:51)
[2019-07-11] MEDS: POVIDONE-IODINE OINT 28.4 GM TUBE TP SCH ×8 (11:45→21:51)
[2019-07-11] MEDS: HYDROGEN PEROXIDE 480 ML BOTTLE TP SCH ×2 (12:00→20:10)
[2019-07-11 20:17] VITALS: BP 109/65
[2019-07-11] MEDS: TAMSULOSIN 0.4 MG CAP.SR.24H GT SCH (21:52)
[2019-07-11] MEDS: ATORVASTATIN 10 MG TABLET GT SCH (21:52)
[2019-07-11] MEDS: LATANOPROST EYE DROP 0.005% 2.5 ML BOTTLE EACHEYE SCH (22:33)
[2019-07-11] MEDS: INSULIN GLARGINE, 100 UNIT/ML CARTRIDGE SQ SCH (22:34)
[2019-07-11] MEDS: NEPRO 1,000 ML BOTTLE GT PRN (23:39)
[2019-07-12] MEDS: IPRATROPIUM NEB FS 0.5 MG/2.5 ML AMPUL.NEB IH SCH ×4 (01:45→20:02)
[2019-07-12] MEDS: ALBUTEROL FS 2.5 MG/0.5 ML VIAL.NEB NEB SCH ×4 (01:45→20:02)
--- NOTE | 2019-07-12 05:00 | NUR ---
PT PLACED BACK ON CA 28% 5L , PT TOLERATES WELL. NO RESPIRATORY DISTRESS NOTED AT THIS TIME.
[2019-07-12] MEDS: REGLAN GT SCH ×3 (05:49→20:16)
[2019-07-12] MEDS: SIMETHICONE SUSP 40 MG/0.6 ML BOTTLE GT SCH ×3 (05:50→17:36)
[2019-07-12] MEDS: BLOOD SUGAR DIAGNOSTIC 1 EACH STRIP IN SCH ×3 (05:50→17:36)
[2019-07-12] MEDS: LACOSAMIDE ORAL SOLN 50 MG/5 ML UDC GT SCH ×2 (05:50→17:36)
[2019-07-12] MEDS: PROSTAT (PYXIS) 30 ML UDC GT SCH ×3 (05:50→20:18)
[2019-07-12] MEDS: OMEPRAZOLE 20 MG CAPSULE.DR GT SCH (05:50)
[2019-07-12] MEDS: INSULIN REGULAR, HUMAN 100 UNIT/ML 10 ML VIAL SQ SCH ×3 (05:51→17:37)
[2019-07-12 08:16] VITALS: BP 126/62
[2019-07-12] MEDS: HYDROGEN PEROXIDE 480 ML BOTTLE TP SCH ×2 (08:58→21:26)
[2019-07-12] MEDS: ASCORBIC ACID 500 MG TABLET GT SCH ×2 (09:23→17:36)
[2019-07-12] MEDS: ACIDOPHILUS/BULGARICUS 1 EACH TAB.CHEW GT SCH (09:23)
[2019-07-12] MEDS: LINAGLIPTIN 5 MG TABLET GT SCH (09:23)
[2019-07-12] MEDS: ACETAMINOPHEN 650 MG/20 ML UDC- SA PATIENTS-PAIN ONLY GT SCH ×2 (09:23→20:18)
[2019-07-12] MEDS: VIT B CMPLX 3/FA/VIT C/BIOTIN 1 TAB TABLET GT SCH (09:23)
[2019-07-12] MEDS: FINASTERIDE (5 MG) 5 MG TABLET GT SCH (09:23)
[2019-07-12] MEDS: DOXYCYCLINE HYCLATE (100 MG) 100 MG TABLET GT SCH ×2 (09:23→20:19)
[2019-07-12] MEDS: DORZOLAMIDE OPTH 2% 10 ML BOTTLE EACHEYE SCH ×3 (09:23→17:35)
[2019-07-12] MEDS: METOPROLOL TARTRATE 25 MG TABLET GT SCH ×2 (09:23→20:18)
[2019-07-12] MEDS: POTASSIUM CHLORIDE 20MEQ TAB GT SCH (09:23)
[2019-07-12] MEDS: CHLORHEXIDINE GLUCONATE 15 ML UDC MM SCH ×2 (09:24→20:19)
[2019-07-12] MEDS: Z GUARD REMEDY 4 OZ OINT TP SCH ×2 (10:00→20:19)
[2019-07-12] MEDS: POVIDONE-IODINE OINT 28.4 GM TUBE TP SCH ×6 (10:00→20:19)
[2019-07-12] MEDS: VITAMINS A AND D 56.7 GM TUBE TP SCH ×2 (10:00→20:19)
--- NOTE | 2019-07-12 11:40 | NUR ---
SW contacted the pt.s responsible libertarian/Son, Dr. Johns [phone] to invite them to the next IDT Plan of Care Conference taking place 07/19/19 from 12:30-1:30pm in the activities room. Per Dr. Johns he can participate via phone conference. Noted.
[2019-07-12 20:42] VITALS: BP 107/59
[2019-07-12] MEDS: ATORVASTATIN 10 MG TABLET GT SCH (21:28)
[2019-07-12] MEDS: LATANOPROST EYE DROP 0.005% 2.5 ML BOTTLE EACHEYE SCH (21:28)
[2019-07-12] MEDS: TAMSULOSIN 0.4 MG CAP.SR.24H GT SCH (21:28)
[2019-07-12] MEDS: INSULIN GLARGINE, 100 UNIT/ML CARTRIDGE SQ SCH (21:29)
[2019-07-13] MEDS: BLOOD SUGAR DIAGNOSTIC 1 EACH STRIP IN SCH ×4 (00:30→17:23)
[2019-07-13] MEDS: SIMETHICONE SUSP 40 MG/0.6 ML BOTTLE GT SCH ×4 (00:30→17:20)
[2019-07-13] MEDS: INSULIN REGULAR, HUMAN 100 UNIT/ML 10 ML VIAL SQ SCH ×4 (00:31→17:19)
[2019-07-13] MEDS: NEPRO 1,000 ML BOTTLE GT PRN (00:35)
[2019-07-13] MEDS: ALBUTEROL FS 2.5 MG/0.5 ML VIAL.NEB NEB SCH ×4 (02:09→19:40)
[2019-07-13] MEDS: IPRATROPIUM NEB FS 0.5 MG/2.5 ML AMPUL.NEB IH SCH ×4 (02:09→19:40)
[2019-07-13] MEDS: REGLAN GT SCH ×3 (05:34→21:24)
[2019-07-13] MEDS: OMEPRAZOLE 20 MG CAPSULE.DR GT SCH (05:34)
[2019-07-13] MEDS: PROSTAT (PYXIS) 30 ML UDC GT SCH ×3 (05:34→21:24)
[2019-07-13] MEDS: LACOSAMIDE ORAL SOLN 50 MG/5 ML UDC GT SCH ×2 (05:34→17:23)
[2019-07-13] MEDS: ASCORBIC ACID 500 MG TABLET GT SCH ×2 (09:00→17:20)
[2019-07-13] MEDS: LINAGLIPTIN 5 MG TABLET GT SCH (09:00)
[2019-07-13] MEDS: Z GUARD REMEDY 4 OZ OINT TP SCH ×2 (09:00→21:25)
[2019-07-13] MEDS: METOPROLOL TARTRATE 25 MG TABLET GT SCH ×2 (09:00→21:24)
[2019-07-13] MEDS: ACETAMINOPHEN 650 MG/20 ML UDC- SA PATIENTS-PAIN ONLY GT SCH ×2 (09:00→21:24)
[2019-07-13] MEDS: VITAMINS A AND D 56.7 GM TUBE TP SCH ×2 (09:00→21:25)
[2019-07-13] MEDS: POTASSIUM CHLORIDE 20MEQ TAB GT SCH (09:00)
[2019-07-13] MEDS: ACIDOPHILUS/BULGARICUS 1 EACH TAB.CHEW GT SCH (09:00)
[2019-07-13] MEDS: CHLORHEXIDINE GLUCONATE 15 ML UDC MM SCH ×2 (09:00→21:24)
[2019-07-13] MEDS: DORZOLAMIDE OPTH 2% 10 ML BOTTLE EACHEYE SCH ×3 (09:00→17:20)
[2019-07-13] MEDS: POVIDONE-IODINE OINT 28.4 GM TUBE TP SCH ×6 (09:00→21:25)
[2019-07-13] MEDS: FINASTERIDE (5 MG) 5 MG TABLET GT SCH (09:00)
[2019-07-13] MEDS: DOXYCYCLINE HYCLATE (100 MG) 100 MG TABLET GT SCH ×2 (09:00→21:24)
[2019-07-13] MEDS: VIT B CMPLX 3/FA/VIT C/BIOTIN 1 TAB TABLET GT SCH (09:00)
--- NOTE | 2019-07-13 11:11 | NUR ---
RN NOTES RECEIVED PATIENT VIA GURNEY ACCOMPANIED BY 3 EMT'S. BP 129/77, TX 114, RR 19, T 98.1, O2 100%. DIALYSIS SITE NO PRESENCE OF BLEEDING, DRESSING INTACT AND DRY. STARTED G-TUBE 50 ML/HR. CONTINUE TO MONITOR CARE.
[2019-07-13 12:08] VITALS: BP 129/77
[2019-07-13] MEDS: HYDROGEN PEROXIDE 480 ML BOTTLE TP SCH ×2 (14:15→21:15)
[2019-07-13 20:01] VITALS: BP 121/70
[2019-07-13] MEDS: LATANOPROST EYE DROP 0.005% 2.5 ML BOTTLE EACHEYE SCH (21:25)
[2019-07-13] MEDS: ATORVASTATIN 10 MG TABLET GT SCH (21:25)
[2019-07-13] MEDS: INSULIN GLARGINE, 100 UNIT/ML CARTRIDGE SQ SCH (21:25)
[2019-07-13] MEDS: TAMSULOSIN 0.4 MG CAP.SR.24H GT SCH (21:25)
[2019-07-14] MEDS: BLOOD SUGAR DIAGNOSTIC 1 EACH STRIP IN SCH ×5 (00:04→23:16)
[2019-07-14] MEDS: SIMETHICONE SUSP 40 MG/0.6 ML BOTTLE GT SCH ×5 (00:04→23:16)
[2019-07-14] MEDS: INSULIN REGULAR, HUMAN 100 UNIT/ML 10 ML VIAL SQ SCH ×5 (00:06→23:17)
[2019-07-14] MEDS: ALBUTEROL FS 2.5 MG/0.5 ML VIAL.NEB NEB SCH ×4 (01:32→19:42)
[2019-07-14] MEDS: IPRATROPIUM NEB FS 0.5 MG/2.5 ML AMPUL.NEB IH SCH ×4 (01:32→19:42)
[2019-07-14] MEDS: LACOSAMIDE ORAL SOLN 50 MG/5 ML UDC GT SCH ×2 (05:03→17:48)
[2019-07-14] MEDS: REGLAN GT SCH ×3 (05:03→21:59)
[2019-07-14] MEDS: OMEPRAZOLE 20 MG CAPSULE.DR GT SCH (05:03)
[2019-07-14] MEDS: PROSTAT (PYXIS) 30 ML UDC GT SCH ×3 (05:03→21:59)
[2019-07-14 07:33] VITALS: BP 127/67
[2019-07-14] MEDS: DORZOLAMIDE OPTH 2% 10 ML BOTTLE EACHEYE SCH ×3 (08:43→16:27)
[2019-07-14] MEDS: ACIDOPHILUS/BULGARICUS 1 EACH TAB.CHEW GT SCH (08:44)
[2019-07-14] MEDS: POTASSIUM CHLORIDE 20MEQ TAB GT SCH (08:46)
[2019-07-14] MEDS: METOPROLOL TARTRATE 25 MG TABLET GT SCH ×2 (08:46→21:59)
[2019-07-14] MEDS: FINASTERIDE (5 MG) 5 MG TABLET GT SCH (08:46)
[2019-07-14] MEDS: LINAGLIPTIN 5 MG TABLET GT SCH (08:47)
[2019-07-14] MEDS: DOXYCYCLINE HYCLATE (100 MG) 100 MG TABLET GT SCH ×2 (08:48→21:00)
[2019-07-14] MEDS: ACETAMINOPHEN 650 MG/20 ML UDC- SA PATIENTS-PAIN ONLY GT SCH ×2 (08:48→22:00)
[2019-07-14] MEDS: CHLORHEXIDINE GLUCONATE 15 ML UDC MM SCH ×2 (08:48→21:00)
[2019-07-14] MEDS: ASCORBIC ACID 500 MG TABLET GT SCH ×2 (08:48→16:27)
[2019-07-14] MEDS: VIT B CMPLX 3/FA/VIT C/BIOTIN 1 TAB TABLET GT SCH (08:52)
[2019-07-14] MEDS: HYDROGEN PEROXIDE 480 ML BOTTLE TP SCH ×2 (09:00→21:06)
[2019-07-14] MEDS: VITAMINS A AND D 56.7 GM TUBE TP SCH ×2 (09:00→21:00)
[2019-07-14] MEDS: POVIDONE-IODINE OINT 28.4 GM TUBE TP SCH ×6 (09:00→21:00)
[2019-07-14] MEDS: Z GUARD REMEDY 4 OZ OINT TP SCH ×2 (09:00→21:00)
--- NOTE | 2019-07-14 18:06 | NUR ---
Seen and examined by Dr. Garduno, no new order given.
[2019-07-14 19:38] VITALS: BP 121/70
[2019-07-14] MEDS: TAMSULOSIN 0.4 MG CAP.SR.24H GT SCH (22:00)
[2019-07-14] MEDS: ATORVASTATIN 10 MG TABLET GT SCH (22:00)
[2019-07-14] MEDS: LATANOPROST EYE DROP 0.005% 2.5 ML BOTTLE EACHEYE SCH (22:00)
[2019-07-14] MEDS: INSULIN GLARGINE, 100 UNIT/ML CARTRIDGE SQ SCH (22:01)
[2019-07-15] MEDS: IPRATROPIUM NEB FS 0.5 MG/2.5 ML AMPUL.NEB IH SCH ×4 (01:48→19:05)
[2019-07-15] MEDS: ALBUTEROL FS 2.5 MG/0.5 ML VIAL.NEB NEB SCH ×4 (01:48→19:05)
[2019-07-15] MEDS: OMEPRAZOLE 20 MG CAPSULE.DR GT SCH (05:45)
[2019-07-15] MEDS: BLOOD SUGAR DIAGNOSTIC 1 EACH STRIP IN SCH ×4 (05:45→23:58)
[2019-07-15] MEDS: LACOSAMIDE ORAL SOLN 50 MG/5 ML UDC GT SCH ×2 (05:45→17:31)
[2019-07-15] MEDS: PROSTAT (PYXIS) 30 ML UDC GT SCH ×3 (05:45→21:00)
[2019-07-15] MEDS: REGLAN GT SCH ×3 (05:45→21:00)
[2019-07-15] MEDS: SIMETHICONE SUSP 40 MG/0.6 ML BOTTLE GT SCH ×4 (05:45→23:58)
[2019-07-15] MEDS: INSULIN REGULAR, HUMAN 100 UNIT/ML 10 ML VIAL SQ SCH ×4 (05:46→23:58)
--- NOTE | 2019-07-15 06:04 | NUR ---
RT Patient was received on 28% cool aerosol.Placed patient on vent during midnight and back to cool aerosol at 0500 per MD order.Patient stable throughout the shift. Trach tube patent and secured.Will continue to monitor. Addendum: 07/15/19 at 0604 by ABEBA SUAREZ RT Amended: Links added.
[2019-07-15 08:04] VITALS: BP 105/70
[2019-07-15] MEDS: HYDROGEN PEROXIDE 480 ML BOTTLE TP SCH ×2 (08:05→21:17)
[2019-07-15] MEDS: VIT B CMPLX 3/FA/VIT C/BIOTIN 1 TAB TABLET GT SCH (08:54)
[2019-07-15] MEDS: FINASTERIDE (5 MG) 5 MG TABLET GT SCH (08:54)
[2019-07-15] MEDS: DOXYCYCLINE HYCLATE (100 MG) 100 MG TABLET GT SCH ×2 (08:54→21:00)
[2019-07-15] MEDS: DORZOLAMIDE OPTH 2% 10 ML BOTTLE EACHEYE SCH ×3 (08:54→17:31)
[2019-07-15] MEDS: METOPROLOL TARTRATE 25 MG TABLET GT SCH ×2 (08:54→21:00)
[2019-07-15] MEDS: LINAGLIPTIN 5 MG TABLET GT SCH (08:54)
[2019-07-15] MEDS: ACETAMINOPHEN 650 MG/20 ML UDC- SA PATIENTS-PAIN ONLY GT SCH ×2 (08:54→21:00)
[2019-07-15] MEDS: ACIDOPHILUS/BULGARICUS 1 EACH TAB.CHEW GT SCH (08:54)
[2019-07-15] MEDS: POTASSIUM CHLORIDE 20MEQ TAB GT SCH (08:54)
[2019-07-15] MEDS: CHLORHEXIDINE GLUCONATE 15 ML UDC MM SCH ×2 (08:55→21:00)
[2019-07-15] MEDS: ASCORBIC ACID 500 MG TABLET GT SCH ×2 (08:55→17:31)
[2019-07-15] MEDS: POVIDONE-IODINE OINT 28.4 GM TUBE TP SCH ×6 (09:30→22:20)
[2019-07-15] MEDS: VITAMINS A AND D 56.7 GM TUBE TP SCH ×2 (09:30→22:20)
[2019-07-15] MEDS: Z GUARD REMEDY 4 OZ OINT TP SCH ×2 (09:30→22:20)
--- NOTE | 2019-07-15 10:00 | NUR ---
Seen by BRANDO Collier. She ordered to administer Nystatin suspension to oral cavity swab and suction q 8 hours for oral thrush.
[2019-07-15] MEDS: NYSTATIN (PYXIS) 500,000 UNIT/5 ML ORAL.SUSP PO SCH ×2 (13:00→21:00)
[2019-07-15] MEDS: ACETAMINOPHEN 650 MG/20 ML UDC- SA PATIENTS-PAIN ONLY GT PRN (17:30)
[2019-07-15 20:07] VITALS: BP 117/69
[2019-07-15] MEDS: TAMSULOSIN 0.4 MG CAP.SR.24H GT SCH (22:06)
[2019-07-15] MEDS: LATANOPROST EYE DROP 0.005% 2.5 ML BOTTLE EACHEYE SCH (22:06)
[2019-07-15] MEDS: ATORVASTATIN 10 MG TABLET GT SCH (22:06)
[2019-07-15] MEDS: INSULIN GLARGINE, 100 UNIT/ML CARTRIDGE SQ SCH (22:07)
[2019-07-16] MEDS: ALBUTEROL FS 2.5 MG/0.5 ML VIAL.NEB NEB SCH ×4 (00:45→19:24)
[2019-07-16] MEDS: IPRATROPIUM NEB FS 0.5 MG/2.5 ML AMPUL.NEB IH SCH ×4 (00:45→19:24)
[2019-07-16] MEDS: SIMETHICONE SUSP 40 MG/0.6 ML BOTTLE GT SCH ×4 (05:16→23:40)
[2019-07-16] MEDS: PROSTAT (PYXIS) 30 ML UDC GT SCH ×3 (05:16→21:00)
[2019-07-16] MEDS: OMEPRAZOLE 20 MG CAPSULE.DR GT SCH (05:16)
[2019-07-16] MEDS: REGLAN GT SCH ×3 (05:16→21:00)
[2019-07-16] MEDS: LACOSAMIDE ORAL SOLN 50 MG/5 ML UDC GT SCH ×2 (05:16→18:00)
[2019-07-16] MEDS: NYSTATIN (PYXIS) 500,000 UNIT/5 ML ORAL.SUSP PO SCH ×3 (05:16→21:00)
[2019-07-16] MEDS: BLOOD SUGAR DIAGNOSTIC 1 EACH STRIP IN SCH ×4 (05:26→23:40)
[2019-07-16] MEDS: INSULIN REGULAR, HUMAN 100 UNIT/ML 10 ML VIAL SQ SCH ×4 (05:26→23:44)
[2019-07-16] MEDS: HYDROGEN PEROXIDE 480 ML BOTTLE TP SCH ×2 (10:41→21:00)
--- NOTE | 2019-07-16 10:45 | NUR ---
Resident came back from dialysis per [facility] with transportation staff. Awake, appears comfortable. Permacath on right upper chest intact with dressing dry and clean. Trach midline with O2 via t-piece. No s/sx of distress. Transferred to bed and made comfortable. Will continue to monitor.
[2019-07-16] MEDS: POTASSIUM CHLORIDE 20MEQ TAB GT SCH (11:00)
[2019-07-16] MEDS: ASCORBIC ACID 500 MG TABLET GT SCH ×2 (11:00→17:00)
[2019-07-16] MEDS: ACIDOPHILUS/BULGARICUS 1 EACH TAB.CHEW GT SCH (11:00)
[2019-07-16] MEDS: VIT B CMPLX 3/FA/VIT C/BIOTIN 1 TAB TABLET GT SCH (11:00)
[2019-07-16] MEDS: LINAGLIPTIN 5 MG TABLET GT SCH (11:00)
[2019-07-16] MEDS: DORZOLAMIDE OPTH 2% 10 ML BOTTLE EACHEYE SCH ×3 (11:00→17:00)
[2019-07-16] MEDS: METOPROLOL TARTRATE 25 MG TABLET GT SCH ×2 (11:00→22:09)
[2019-07-16] MEDS: DOXYCYCLINE HYCLATE (100 MG) 100 MG TABLET GT SCH ×2 (11:00→21:00)
[2019-07-16] MEDS: FINASTERIDE (5 MG) 5 MG TABLET GT SCH (11:00)
[2019-07-16] MEDS: CHLORHEXIDINE GLUCONATE 15 ML UDC MM SCH ×2 (11:00→21:00)
[2019-07-16] MEDS: ACETAMINOPHEN 650 MG/20 ML UDC- SA PATIENTS-PAIN ONLY GT SCH ×2 (11:00→21:00)
[2019-07-16] MEDS: NEPRO 1,000 ML BOTTLE GT PRN (11:00)
[2019-07-16] MEDS: Z GUARD REMEDY 4 OZ OINT TP SCH ×2 (12:00→21:00)
[2019-07-16] MEDS: POVIDONE-IODINE OINT 28.4 GM TUBE TP SCH ×6 (12:00→21:00)
[2019-07-16] MEDS: VITAMINS A AND D 56.7 GM TUBE TP SCH ×2 (12:00→21:00)
[2019-07-16] MEDS ORDERED: DIATR MEGLU/DIATRIZOATE SODIUM 30 ML BOTTLE (GASTROGRAPHIN) ONE (15:57)
--- NOTE | 2019-07-16 16:00 | NUR ---
Resident G-tube came out while DATABASE MARKETING ANALYST was rendering shower in the shower room. Resident coughed hard and GT came out with balloon intact. No bleeding noted. Reinserted new g-tube, tolerated well. Ordered KUB to confirm placement. Will continue o monitor.
--- NOTE | 2019-07-16 19:02 | NUR ---
Jose puri Addendum: 07/16/19 at 1904 by JOANIE HAM RN Vitamin C not given at 1800, waiting for KUB result to confirm placement.
--- NOTE | 2019-07-16 19:30 | NUR ---
RN NOTES Seen and examined by Nilam Pineda NP with new order to d/c previous metoprolol order and change to: Metoprolol tartrate 12.5mg via gt in am and Metoprolol 25mg via gt qHS for tachycardia, noted and carried out. Son, Jose notified of new order.
--- NOTE | 2019-07-16 19:38 | NUR ---
Seen and examined by Nilam Pineda NP. Made aware that patient's GT came out when he cough while in the shower room. There is hypergranulation of GT stoma noted but push back in during reinsertion of GT. Abdominal KUB done and placement confirmed.
[2019-07-16 21:31] VITALS: BP 113/71
[2019-07-16] MEDS: TAMSULOSIN 0.4 MG CAP.SR.24H GT SCH (22:09)
[2019-07-16] MEDS: LATANOPROST EYE DROP 0.005% 2.5 ML BOTTLE EACHEYE SCH (22:09)
[2019-07-16] MEDS: ATORVASTATIN 10 MG TABLET GT SCH (22:09)
[2019-07-16] MEDS: INSULIN GLARGINE, 100 UNIT/ML CARTRIDGE SQ SCH (22:10)
[2019-07-17] MEDS: IPRATROPIUM NEB FS 0.5 MG/2.5 ML AMPUL.NEB IH SCH ×4 (01:30→19:40)
[2019-07-17] MEDS: ALBUTEROL FS 2.5 MG/0.5 ML VIAL.NEB NEB SCH ×4 (01:30→19:40)
--- NOTE | 2019-07-17 05:20 | NUR ---
PT PLACED ON COOL AEROSOL 28%. SX'D FOR MOD AMT OF THICK WHITE SECRETIONS. O2 SAT 100%. NOTIFIED DEVELOPMENT DISABILITY SPECIALISTBRIGHT SON.
[2019-07-17] MEDS: SIMETHICONE SUSP 40 MG/0.6 ML BOTTLE GT SCH ×3 (05:44→17:39)
[2019-07-17] MEDS: PROSTAT (PYXIS) 30 ML UDC GT SCH ×3 (05:44→20:56)
[2019-07-17] MEDS: BLOOD SUGAR DIAGNOSTIC 1 EACH STRIP IN SCH ×3 (05:44→17:39)
[2019-07-17] MEDS: NYSTATIN (PYXIS) 500,000 UNIT/5 ML ORAL.SUSP PO SCH ×3 (05:44→20:58)
[2019-07-17] MEDS: LACOSAMIDE ORAL SOLN 50 MG/5 ML UDC GT SCH ×2 (05:44→17:39)
[2019-07-17] MEDS: OMEPRAZOLE 20 MG CAPSULE.DR GT SCH (05:44)
[2019-07-17] MEDS: REGLAN GT SCH ×3 (05:44→20:56)
[2019-07-17] MEDS: INSULIN REGULAR, HUMAN 100 UNIT/ML 10 ML VIAL SQ SCH ×3 (05:45→17:53)
[2019-07-17 07:48] VITALS: BP 117/70
[2019-07-17] MEDS: HYDROGEN PEROXIDE 480 ML BOTTLE TP SCH ×2 (09:00→19:40)
[2019-07-17] MEDS: ASCORBIC ACID 500 MG TABLET GT SCH ×2 (09:00→17:38)
[2019-07-17] MEDS: LINAGLIPTIN 5 MG TABLET GT SCH (09:00)
[2019-07-17] MEDS: DOXYCYCLINE HYCLATE (100 MG) 100 MG TABLET GT SCH ×2 (09:00→20:58)
[2019-07-17] MEDS: ACIDOPHILUS/BULGARICUS 1 EACH TAB.CHEW GT SCH (09:00)
[2019-07-17] MEDS: CHLORHEXIDINE GLUCONATE 15 ML UDC MM SCH ×2 (09:00→20:58)
[2019-07-17] MEDS: VITAMINS A AND D 56.7 GM TUBE TP SCH ×2 (09:00→20:59)
[2019-07-17] MEDS: Z GUARD REMEDY 4 OZ OINT TP SCH ×2 (09:00→20:59)
[2019-07-17] MEDS: DORZOLAMIDE OPTH 2% 10 ML BOTTLE EACHEYE SCH ×3 (09:00→17:38)
[2019-07-17] MEDS: VIT B CMPLX 3/FA/VIT C/BIOTIN 1 TAB TABLET GT SCH (09:00)
[2019-07-17] MEDS: POVIDONE-IODINE OINT 28.4 GM TUBE TP SCH ×6 (09:00→20:59)
[2019-07-17] MEDS: METOPROLOL TARTRATE 25 MG TABLET GT SCH ×2 (09:00→21:04)
[2019-07-17] MEDS: SILVER SULFADIAZINE CREAM 25 GM TUBE TP SCH (09:00)
[2019-07-17] MEDS: FINASTERIDE (5 MG) 5 MG TABLET GT SCH (09:00)
[2019-07-17] MEDS: POTASSIUM CHLORIDE 20MEQ TAB GT SCH (09:00)
[2019-07-17] MEDS: ACETAMINOPHEN 650 MG/20 ML UDC- SA PATIENTS-PAIN ONLY GT SCH ×2 (09:00→20:57)
[2019-07-17] MEDS: NEPRO 1,000 ML BOTTLE GT PRN (17:44)
--- NOTE | 2019-07-17 19:51 | NUR ---
RT NOTE: RECEIVED TRACH PT ON COOL AEROSOL. WILL PLACE PT ON VENT AT MIDNIGHT PER MD ORDER. TRACH IS PATENT AND SECURED. TRACH CARE DONE. MATH INTERVENTIONIST DONE. Q6 BREATHING TX GIVEN WITH NO ADVERSE REACTION NOTED. SX DONE PRN. NO RESP DISTRESS AT THIS TIME. WILL CONT TO MONITOR PT. Addendum: 07/18/19 at 0303 by RAMYA HARKINS RT Amended: Links added.
[2019-07-17 20:45] VITALS: BP 114/57
[2019-07-17] MEDS: TAMSULOSIN 0.4 MG CAP.SR.24H GT SCH (21:04)
[2019-07-17] MEDS: LATANOPROST EYE DROP 0.005% 2.5 ML BOTTLE EACHEYE SCH (21:04)
[2019-07-17] MEDS: ATORVASTATIN 10 MG TABLET GT SCH (21:04)
[2019-07-17] MEDS: INSULIN GLARGINE, 100 UNIT/ML CARTRIDGE SQ SCH (21:27)
[2019-07-18] MEDS: BLOOD SUGAR DIAGNOSTIC 1 EACH STRIP IN SCH ×5 (00:30→23:52)
[2019-07-18] MEDS: SIMETHICONE SUSP 40 MG/0.6 ML BOTTLE GT SCH ×5 (00:30→23:52)
[2019-07-18] MEDS: INSULIN REGULAR, HUMAN 100 UNIT/ML 10 ML VIAL SQ SCH ×5 (00:31→23:53)
[2019-07-18] MEDS: ALBUTEROL FS 2.5 MG/0.5 ML VIAL.NEB NEB SCH ×4 (01:30→19:57)
[2019-07-18] MEDS: IPRATROPIUM NEB FS 0.5 MG/2.5 ML AMPUL.NEB IH SCH ×4 (01:30→19:56)
[2019-07-18] MEDS: NYSTATIN (PYXIS) 500,000 UNIT/5 ML ORAL.SUSP PO SCH ×3 (05:30→21:22)
[2019-07-18] MEDS: PROSTAT (PYXIS) 30 ML UDC GT SCH ×3 (05:30→21:22)
[2019-07-18] MEDS: REGLAN GT SCH ×3 (05:30→21:22)
[2019-07-18] MEDS: OMEPRAZOLE 20 MG CAPSULE.DR GT SCH (05:30)
[2019-07-18] MEDS: LACOSAMIDE ORAL SOLN 50 MG/5 ML UDC GT SCH ×2 (05:30→17:22)
[2019-07-18] MEDS: CHLORHEXIDINE GLUCONATE 15 ML UDC MM SCH ×2 (09:00→21:22)
[2019-07-18] MEDS: METOPROLOL TARTRATE 25 MG TABLET GT SCH ×2 (09:00→21:23)
[2019-07-18] MEDS: DOXYCYCLINE HYCLATE (100 MG) 100 MG TABLET GT SCH ×2 (09:00→21:22)
[2019-07-18] MEDS: HYDROGEN PEROXIDE 480 ML BOTTLE TP SCH ×2 (09:00→19:57)
[2019-07-18] MEDS: ACETAMINOPHEN 650 MG/20 ML UDC- SA PATIENTS-PAIN ONLY GT SCH ×2 (09:00→21:22)
[2019-07-18] MEDS: DORZOLAMIDE OPTH 2% 10 ML BOTTLE EACHEYE SCH ×3 (09:00→17:22)
[2019-07-18] MEDS: VIT B CMPLX 3/FA/VIT C/BIOTIN 1 TAB TABLET GT SCH (09:00)
[2019-07-18] MEDS: SILVER SULFADIAZINE CREAM 25 GM TUBE TP SCH (09:00)
[2019-07-18] MEDS: ASCORBIC ACID 500 MG TABLET GT SCH ×2 (09:00→17:22)
[2019-07-18] MEDS: FINASTERIDE (5 MG) 5 MG TABLET GT SCH (09:00)
[2019-07-18] MEDS: POTASSIUM CHLORIDE 20MEQ TAB GT SCH (09:00)
[2019-07-18] MEDS: Z GUARD REMEDY 4 OZ OINT TP SCH ×2 (09:00→21:23)
[2019-07-18] MEDS: VITAMINS A AND D 56.7 GM TUBE TP SCH ×2 (09:00→21:23)
[2019-07-18] MEDS: ACIDOPHILUS/BULGARICUS 1 EACH TAB.CHEW GT SCH (09:00)
[2019-07-18] MEDS: LINAGLIPTIN 5 MG TABLET GT SCH (09:00)
[2019-07-18] MEDS: POVIDONE-IODINE OINT 28.4 GM TUBE TP SCH ×5 (09:00→21:22)
[2019-07-18 20:02] VITALS: BP 120/71
[2019-07-18] MEDS: LATANOPROST EYE DROP 0.005% 2.5 ML BOTTLE EACHEYE SCH (21:23)
[2019-07-18] MEDS: ATORVASTATIN 10 MG TABLET GT SCH (21:23)
[2019-07-18] MEDS: TAMSULOSIN 0.4 MG CAP.SR.24H GT SCH (21:23)
[2019-07-18] MEDS: INSULIN GLARGINE, 100 UNIT/ML CARTRIDGE SQ SCH (21:24)
[2019-07-18] MEDS: NEPRO 1,000 ML BOTTLE GT PRN (23:53)
[2019-07-19] MEDS: ALBUTEROL FS 2.5 MG/0.5 ML VIAL.NEB NEB SCH ×4 (01:56→19:42)
[2019-07-19] MEDS: IPRATROPIUM NEB FS 0.5 MG/2.5 ML AMPUL.NEB IH SCH ×4 (01:56→19:42)
[2019-07-19] MEDS: NYSTATIN (PYXIS) 500,000 UNIT/5 ML ORAL.SUSP PO SCH ×3 (05:34→21:00)
[2019-07-19] MEDS: REGLAN GT SCH ×3 (05:34→20:54)
[2019-07-19] MEDS: PROSTAT (PYXIS) 30 ML UDC GT SCH ×3 (05:34→20:55)
[2019-07-19] MEDS: OMEPRAZOLE 20 MG CAPSULE.DR GT SCH (05:35)
[2019-07-19] MEDS: SIMETHICONE SUSP 40 MG/0.6 ML BOTTLE GT SCH ×3 (05:35→17:44)
[2019-07-19] MEDS: LACOSAMIDE ORAL SOLN 50 MG/5 ML UDC GT SCH ×2 (05:36→17:51)
[2019-07-19] MEDS: BLOOD SUGAR DIAGNOSTIC 1 EACH STRIP IN SCH ×3 (05:38→17:45)
[2019-07-19] MEDS: INSULIN REGULAR, HUMAN 100 UNIT/ML 10 ML VIAL SQ SCH ×3 (05:39→17:55)
[2019-07-19 07:38] VITALS: BP 129/68
[2019-07-19] MEDS: ACETAMINOPHEN 650 MG/20 ML UDC- SA PATIENTS-PAIN ONLY GT SCH ×2 (09:00→20:57)
[2019-07-19] MEDS: FINASTERIDE (5 MG) 5 MG TABLET GT SCH (09:00)
[2019-07-19] MEDS: METOPROLOL TARTRATE 25 MG TABLET GT SCH ×2 (09:00→22:31)
[2019-07-19] MEDS: VIT B CMPLX 3/FA/VIT C/BIOTIN 1 TAB TABLET GT SCH (09:00)
[2019-07-19] MEDS: DOXYCYCLINE HYCLATE (100 MG) 100 MG TABLET GT SCH ×2 (09:00→20:58)
[2019-07-19] MEDS: HYDROGEN PEROXIDE 480 ML BOTTLE TP SCH ×2 (09:00→21:01)
[2019-07-19] MEDS: VITAMINS A AND D 56.7 GM TUBE TP SCH ×2 (09:00→21:04)
[2019-07-19] MEDS: ASCORBIC ACID 500 MG TABLET GT SCH ×2 (09:00→17:44)
[2019-07-19] MEDS: POTASSIUM CHLORIDE 20MEQ TAB GT SCH (09:00)
[2019-07-19] MEDS: DORZOLAMIDE OPTH 2% 10 ML BOTTLE EACHEYE SCH ×3 (09:00→17:45)
[2019-07-19] MEDS: ACIDOPHILUS/BULGARICUS 1 EACH TAB.CHEW GT SCH (09:00)
[2019-07-19] MEDS: SILVER SULFADIAZINE CREAM 25 GM TUBE TP SCH (09:00)
[2019-07-19] MEDS: CHLORHEXIDINE GLUCONATE 15 ML UDC MM SCH ×2 (09:00→20:59)
[2019-07-19] MEDS: LINAGLIPTIN 5 MG TABLET GT SCH (09:00)
[2019-07-19] MEDS: BACI/NEOM/POLY B OINT PKT 1 UDPKT PACKET TP SCH ×2 (09:58→21:02)
[2019-07-19] MEDS: POVIDONE-IODINE OINT 28.4 GM TUBE TP SCH ×4 (09:58→21:01)
[2019-07-19] MEDS: Z GUARD REMEDY 4 OZ OINT TP SCH ×2 (09:58→21:02)
[2019-07-19] MEDS: MINERAL OIL/PETROL OINT 396 GM JAR TP SCH ×2 (09:59→21:01)
--- NOTE | 2019-07-19 15:29 | NUR ---
INTERDISCIPLINARY PLAN OF CARE CONFERENCE took place today. The patients responsible libertarian/ Dr. Johns was able to participate via phone conference. IDT answered all of familys questions. Charge nurse discussed Metropolol 25mg Q AM; GT irritation 3 ATB Q shift X 14 days; Silvadene Tx for 4th& 5th toes. Dr. Ramírez and Interdisciplinary team discussed the plan of care in detail. Current orders as well as treatments and medications were reviewed. Please see other disciplines IDT notes for further details.
[2019-07-19 20:12] VITALS: BP 121/66
[2019-07-19] MEDS: LATANOPROST EYE DROP 0.005% 2.5 ML BOTTLE EACHEYE SCH (22:00)
[2019-07-19] MEDS: TAMSULOSIN 0.4 MG CAP.SR.24H GT SCH (22:00)
[2019-07-19] MEDS: ATORVASTATIN 10 MG TABLET GT SCH (22:01)
[2019-07-19] MEDS: INSULIN GLARGINE, 100 UNIT/ML CARTRIDGE SQ SCH (22:32)
[2019-07-20] MEDS: SIMETHICONE SUSP 40 MG/0.6 ML BOTTLE GT SCH ×5 (00:27→23:37)
[2019-07-20] MEDS: BLOOD SUGAR DIAGNOSTIC 1 EACH STRIP IN SCH ×5 (00:27→23:37)
[2019-07-20] MEDS: INSULIN REGULAR, HUMAN 100 UNIT/ML 10 ML VIAL SQ SCH ×5 (00:28→23:38)
[2019-07-20] MEDS: ALBUTEROL FS 2.5 MG/0.5 ML VIAL.NEB NEB SCH ×4 (01:52→19:43)
[2019-07-20] MEDS: IPRATROPIUM NEB FS 0.5 MG/2.5 ML AMPUL.NEB IH SCH ×4 (01:52→19:43)
[2019-07-20] MEDS: NEPRO 1,000 ML BOTTLE GT PRN (02:46)
[2019-07-20] MEDS: NYSTATIN (PYXIS) 500,000 UNIT/5 ML ORAL.SUSP PO SCH ×3 (05:04→21:33)
[2019-07-20] MEDS: REGLAN GT SCH ×3 (05:04→21:33)
[2019-07-20] MEDS: PROSTAT (PYXIS) 30 ML UDC GT SCH ×3 (05:04→21:33)
[2019-07-20] MEDS: OMEPRAZOLE 20 MG CAPSULE.DR GT SCH (05:07)
[2019-07-20] MEDS: LACOSAMIDE ORAL SOLN 50 MG/5 ML UDC GT SCH ×2 (05:10→17:20)
[2019-07-20] MEDS: POTASSIUM CHLORIDE 20MEQ TAB GT SCH (09:00)
[2019-07-20] MEDS: ACIDOPHILUS/BULGARICUS 1 EACH TAB.CHEW GT SCH (09:00)
[2019-07-20] MEDS: METOPROLOL TARTRATE 25 MG TABLET GT SCH ×2 (09:00→21:34)
[2019-07-20] MEDS: LINAGLIPTIN 5 MG TABLET GT SCH (09:00)
[2019-07-20] MEDS: HYDROGEN PEROXIDE 480 ML BOTTLE TP SCH ×2 (09:00→21:34)
[2019-07-20] MEDS: VIT B CMPLX 3/FA/VIT C/BIOTIN 1 TAB TABLET GT SCH (09:00)
[2019-07-20] MEDS: FINASTERIDE (5 MG) 5 MG TABLET GT SCH (09:00)
[2019-07-20] MEDS: ASCORBIC ACID 500 MG TABLET GT SCH ×2 (09:00→16:19)
[2019-07-20] MEDS: DOXYCYCLINE HYCLATE (100 MG) 100 MG TABLET GT SCH ×2 (09:00→21:33)
[2019-07-20] MEDS: DORZOLAMIDE OPTH 2% 10 ML BOTTLE EACHEYE SCH ×3 (09:00→16:18)
--- NOTE | 2019-07-20 11:00 | NUR ---
PATIENT CAME BACK FROM DIALYSIS, VSS, NO RESPIRATORY DISTRESS, NO S/S OF PAIN AT THIS TIME. PERMACATH DRESSING CLEAN, DRY AND INTACT. PATIENT TRANSFERRED TO BED, RT AT BEDSIDE. WILL CONTINUE TO MONITOR.
[2019-07-20] MEDS: CHLORHEXIDINE GLUCONATE 15 ML UDC MM SCH ×2 (12:50→21:33)
[2019-07-20] MEDS: MINERAL OIL/PETROL OINT 396 GM JAR TP SCH ×2 (12:50→21:33)
[2019-07-20] MEDS: ACETAMINOPHEN 650 MG/20 ML UDC- SA PATIENTS-PAIN ONLY GT SCH ×2 (12:50→21:33)
[2019-07-20] MEDS: BACI/NEOM/POLY B OINT PKT 1 UDPKT PACKET TP SCH ×2 (13:50→21:34)
[2019-07-20] MEDS: Z GUARD REMEDY 4 OZ OINT TP SCH ×2 (13:50→21:34)
[2019-07-20] MEDS: POVIDONE-IODINE OINT 28.4 GM TUBE TP SCH ×4 (13:50→21:34)
[2019-07-20] MEDS: SILVER SULFADIAZINE CREAM 25 GM TUBE TP SCH (13:50)
[2019-07-20] MEDS: VITAMINS A AND D 56.7 GM TUBE TP SCH ×2 (13:50→21:34)
[2019-07-20 19:41] VITALS: BP 114/59
[2019-07-20] MEDS: LATANOPROST EYE DROP 0.005% 2.5 ML BOTTLE EACHEYE SCH (21:34)
[2019-07-20] MEDS: ATORVASTATIN 10 MG TABLET GT SCH (21:34)
[2019-07-20] MEDS: TAMSULOSIN 0.4 MG CAP.SR.24H GT SCH (21:34)
[2019-07-20] MEDS: INSULIN GLARGINE, 100 UNIT/ML CARTRIDGE SQ SCH (21:35)
[2019-07-21] MEDS: IPRATROPIUM NEB FS 0.5 MG/2.5 ML AMPUL.NEB IH SCH ×4 (01:03→19:58)
[2019-07-21] MEDS: ALBUTEROL FS 2.5 MG/0.5 ML VIAL.NEB NEB SCH ×4 (01:03→19:58)
[2019-07-21] MEDS: PROSTAT (PYXIS) 30 ML UDC GT SCH ×3 (05:12→21:50)
[2019-07-21] MEDS: NYSTATIN (PYXIS) 500,000 UNIT/5 ML ORAL.SUSP PO SCH ×3 (05:12→21:50)
[2019-07-21] MEDS: REGLAN GT SCH ×3 (05:12→21:50)
[2019-07-21] MEDS: OMEPRAZOLE 20 MG CAPSULE.DR GT SCH (05:13)
[2019-07-21] MEDS: LACOSAMIDE ORAL SOLN 50 MG/5 ML UDC GT SCH ×2 (05:13→17:54)
[2019-07-21] MEDS: NEPRO 1,000 ML BOTTLE GT PRN (05:13)
[2019-07-21] MEDS: SIMETHICONE SUSP 40 MG/0.6 ML BOTTLE GT SCH ×3 (05:13→17:54)
[2019-07-21] MEDS: BLOOD SUGAR DIAGNOSTIC 1 EACH STRIP IN SCH ×3 (05:42→17:54)
[2019-07-21] MEDS: INSULIN REGULAR, HUMAN 100 UNIT/ML 10 ML VIAL SQ SCH ×3 (05:43→17:55)
[2019-07-21 07:34] VITALS: BP 107/65
[2019-07-21] MEDS: VITAMINS A AND D 56.7 GM TUBE TP SCH ×2 (09:00→21:51)
[2019-07-21] MEDS: Z GUARD REMEDY 4 OZ OINT TP SCH ×2 (09:00→21:51)
[2019-07-21] MEDS: BACI/NEOM/POLY B OINT PKT 1 UDPKT PACKET TP SCH ×2 (09:00→21:50)
[2019-07-21] MEDS: HYDROGEN PEROXIDE 480 ML BOTTLE TP SCH ×2 (09:00→19:58)
[2019-07-21] MEDS: POVIDONE-IODINE OINT 28.4 GM TUBE TP SCH ×4 (09:00→21:50)
[2019-07-21] MEDS: SILVER SULFADIAZINE CREAM 25 GM TUBE TP SCH (09:00)
[2019-07-21] MEDS: POTASSIUM CHLORIDE 20MEQ TAB GT SCH (09:26)
[2019-07-21] MEDS: VIT B CMPLX 3/FA/VIT C/BIOTIN 1 TAB TABLET GT SCH (09:26)
[2019-07-21] MEDS: DORZOLAMIDE OPTH 2% 10 ML BOTTLE EACHEYE SCH ×3 (09:26→17:54)
[2019-07-21] MEDS: METOPROLOL TARTRATE 25 MG TABLET GT SCH ×2 (09:26→21:51)
[2019-07-21] MEDS: ACIDOPHILUS/BULGARICUS 1 EACH TAB.CHEW GT SCH (09:26)
[2019-07-21] MEDS: MINERAL OIL/PETROL OINT 396 GM JAR TP SCH ×2 (09:27→21:50)
[2019-07-21] MEDS: CHLORHEXIDINE GLUCONATE 15 ML UDC MM SCH ×2 (09:27→21:50)
[2019-07-21] MEDS: ASCORBIC ACID 500 MG TABLET GT SCH ×2 (09:27→17:54)
[2019-07-21] MEDS: DOXYCYCLINE HYCLATE (100 MG) 100 MG TABLET GT SCH ×2 (09:27→21:50)
[2019-07-21] MEDS: LINAGLIPTIN 5 MG TABLET GT SCH (09:27)
[2019-07-21] MEDS: FINASTERIDE (5 MG) 5 MG TABLET GT SCH (09:27)
[2019-07-21] MEDS: ACETAMINOPHEN 650 MG/20 ML UDC- SA PATIENTS-PAIN ONLY GT SCH ×2 (09:27→21:50)
--- NOTE | 2019-07-21 16:41 | NUR ---
Seen and examined by Dr. Garduno no new orders.
[2019-07-21 19:47] VITALS: BP 131/73
--- NOTE | 2019-07-21 20:09 | NUR ---
RT NOTE: RECEIVED TRACH PT ON COOL AEROSOL. WILL PLACE PT ON VENT AT MIDNIGHT PER MD ORDER. TRACH IS PATENT AND SECURED. TRACH CARE DONE. Q6 BREATHING TX GIVEN WITH NO ADVERSE REACTION NOTED. SX DONE PRN. NO RESP DISTRESS AT THIS TIME. WILL CONT TO MONITOR PT. Addendum: 07/22/19 at 0249 by RAMYA HARKINS RT Amended: Links added.
[2019-07-21] MEDS: ATORVASTATIN 10 MG TABLET GT SCH (21:51)
[2019-07-21] MEDS: TAMSULOSIN 0.4 MG CAP.SR.24H GT SCH (21:51)
[2019-07-21] MEDS: LATANOPROST EYE DROP 0.005% 2.5 ML BOTTLE EACHEYE SCH (21:51)
[2019-07-21] MEDS: INSULIN GLARGINE, 100 UNIT/ML CARTRIDGE SQ SCH (21:52)
[2019-07-22] MEDS: BLOOD SUGAR DIAGNOSTIC 1 EACH STRIP IN SCH ×5 (00:34→23:44)
[2019-07-22] MEDS: SIMETHICONE SUSP 40 MG/0.6 ML BOTTLE GT SCH ×5 (00:34→23:43)
[2019-07-22] MEDS: INSULIN REGULAR, HUMAN 100 UNIT/ML 10 ML VIAL SQ SCH ×5 (00:36→23:45)
[2019-07-22] MEDS: ALBUTEROL FS 2.5 MG/0.5 ML VIAL.NEB NEB SCH ×4 (02:04→19:56)
[2019-07-22] MEDS: IPRATROPIUM NEB FS 0.5 MG/2.5 ML AMPUL.NEB IH SCH ×4 (02:04→19:56)
[2019-07-22] MEDS: NYSTATIN (PYXIS) 500,000 UNIT/5 ML ORAL.SUSP PO SCH ×3 (05:30→21:12)
[2019-07-22] MEDS: OMEPRAZOLE 20 MG CAPSULE.DR GT SCH (05:30)
[2019-07-22] MEDS: REGLAN GT SCH ×3 (05:30→21:10)
[2019-07-22] MEDS: PROSTAT (PYXIS) 30 ML UDC GT SCH ×3 (05:30→21:10)
[2019-07-22] MEDS: LACOSAMIDE ORAL SOLN 50 MG/5 ML UDC GT SCH ×2 (05:30→17:56)
[2019-07-22 07:18] LABS: CALCIUM, SERUM 10.2 mg/dL (8.5-10.1); CARBON DIOXIDE 24 mmol/L (21-32); CHLORIDE 96 mmol/L (98-107); GLUCOSE 195 mg/dL (74-106); POTASSIUM 3.8 mmol/L (3.5-5.1); SODIUM SERUM 134 mmol/L (136-145)
[2019-07-22 07:21] LABS: CREATININE 7.8 mg/dL (0.6-1.3); UREA NITROGEN, BLOOD 99 mg/dL (7-18)
[2019-07-22 07:31] VITALS: BP 107/59
[2019-07-22] MEDS: HYDROGEN PEROXIDE 480 ML BOTTLE TP SCH ×2 (08:24→19:56)
[2019-07-22] MEDS: VITAMINS A AND D 56.7 GM TUBE TP SCH ×2 (09:00→21:59)
[2019-07-22] MEDS: DORZOLAMIDE OPTH 2% 10 ML BOTTLE EACHEYE SCH ×3 (09:30→17:55)
[2019-07-22] MEDS: ACIDOPHILUS/BULGARICUS 1 EACH TAB.CHEW GT SCH (09:30)
[2019-07-22] MEDS: METOPROLOL TARTRATE 25 MG TABLET GT SCH ×2 (09:30→21:15)
[2019-07-22] MEDS: VIT B CMPLX 3/FA/VIT C/BIOTIN 1 TAB TABLET GT SCH (09:31)
[2019-07-22] MEDS: POTASSIUM CHLORIDE 20MEQ TAB GT SCH (09:31)
[2019-07-22] MEDS: predniSONE 20 MG TABLET GT SCH (09:32)
[2019-07-22] MEDS: FINASTERIDE (5 MG) 5 MG TABLET GT SCH (09:32)
[2019-07-22] MEDS: LINAGLIPTIN 5 MG TABLET GT SCH (09:32)
[2019-07-22] MEDS: DOXYCYCLINE HYCLATE (100 MG) 100 MG TABLET GT SCH ×2 (09:39→21:10)
[2019-07-22] MEDS: ACETAMINOPHEN 650 MG/20 ML UDC- SA PATIENTS-PAIN ONLY GT SCH ×2 (09:39→21:10)
[2019-07-22] MEDS: CHLORHEXIDINE GLUCONATE 15 ML UDC MM SCH ×2 (09:40→21:11)
[2019-07-22] MEDS: ASCORBIC ACID 500 MG TABLET GT SCH ×2 (09:40→17:55)
[2019-07-22] MEDS: MINERAL OIL/PETROL OINT 396 GM JAR TP SCH ×2 (09:40→21:59)
[2019-07-22] MEDS: BACI/NEOM/POLY B OINT PKT 1 UDPKT PACKET TP SCH ×2 (10:39→21:59)
[2019-07-22] MEDS: SILVER SULFADIAZINE CREAM 25 GM TUBE TP SCH (10:39)
[2019-07-22] MEDS: POVIDONE-IODINE OINT 28.4 GM TUBE TP SCH ×4 (10:39→21:59)
[2019-07-22] MEDS: Z GUARD REMEDY 4 OZ OINT TP SCH ×2 (10:39→22:00)
[2019-07-22 19:51] VITALS: BP 124/70
[2019-07-22] MEDS: LATANOPROST EYE DROP 0.005% 2.5 ML BOTTLE EACHEYE SCH (21:12)
[2019-07-22] MEDS: ATORVASTATIN 10 MG TABLET GT SCH (21:14)
[2019-07-22] MEDS: TAMSULOSIN 0.4 MG CAP.SR.24H GT SCH (21:14)
[2019-07-22] MEDS: INSULIN GLARGINE, 100 UNIT/ML CARTRIDGE SQ SCH (21:16)
[2019-07-23] MEDS: IPRATROPIUM NEB FS 0.5 MG/2.5 ML AMPUL.NEB IH SCH ×5 (01:34→19:56)
[2019-07-23] MEDS: ALBUTEROL FS 2.5 MG/0.5 ML VIAL.NEB NEB SCH ×5 (01:34→19:56)
[2019-07-23] MEDS: REGLAN GT SCH ×3 (05:12→21:07)
[2019-07-23] MEDS: SIMETHICONE SUSP 40 MG/0.6 ML BOTTLE GT SCH ×4 (05:12→23:46)
[2019-07-23] MEDS: NYSTATIN (PYXIS) 500,000 UNIT/5 ML ORAL.SUSP PO SCH ×3 (05:12→21:08)
[2019-07-23] MEDS: OMEPRAZOLE 20 MG CAPSULE.DR GT SCH (05:12)
[2019-07-23] MEDS: LACOSAMIDE ORAL SOLN 50 MG/5 ML UDC GT SCH ×2 (05:12→17:38)
[2019-07-23] MEDS: PROSTAT (PYXIS) 30 ML UDC GT SCH ×3 (05:12→21:07)
[2019-07-23] MEDS: BLOOD SUGAR DIAGNOSTIC 1 EACH STRIP IN SCH ×4 (05:12→23:46)
[2019-07-23] MEDS: INSULIN REGULAR, HUMAN 100 UNIT/ML 10 ML VIAL SQ SCH ×4 (05:13→23:47)
[2019-07-23] MEDS: HYDROGEN PEROXIDE 480 ML BOTTLE TP SCH ×2 (08:31→19:56)
--- NOTE | 2019-07-23 10:55 | NUR ---
Resident came back from dialysis per medical transport. Stable, awake. Permacath on right upper chest intact, dressing dry and clean. No bleeding noted. Transferred to bed and made comfortable. Will continue to monitor.
[2019-07-23] MEDS: ASCORBIC ACID 500 MG TABLET GT SCH ×2 (11:00→17:38)
[2019-07-23] MEDS: DOXYCYCLINE HYCLATE (100 MG) 100 MG TABLET GT SCH ×2 (11:00→21:08)
[2019-07-23] MEDS: FINASTERIDE (5 MG) 5 MG TABLET GT SCH (11:00)
[2019-07-23] MEDS: METOPROLOL TARTRATE 25 MG TABLET GT SCH ×2 (11:00→21:08)
[2019-07-23] MEDS: DORZOLAMIDE OPTH 2% 10 ML BOTTLE EACHEYE SCH ×3 (11:00→17:38)
[2019-07-23] MEDS: POTASSIUM CHLORIDE 20MEQ TAB GT SCH (11:00)
[2019-07-23] MEDS: VIT B CMPLX 3/FA/VIT C/BIOTIN 1 TAB TABLET GT SCH (11:00)
[2019-07-23] MEDS: CHLORHEXIDINE GLUCONATE 15 ML UDC MM SCH ×2 (11:00→21:08)
[2019-07-23] MEDS: predniSONE 20 MG TABLET GT SCH (11:00)
[2019-07-23] MEDS: ACIDOPHILUS/BULGARICUS 1 EACH TAB.CHEW GT SCH (11:00)
[2019-07-23] MEDS: LINAGLIPTIN 5 MG TABLET GT SCH (11:00)
[2019-07-23] MEDS: ACETAMINOPHEN 650 MG/20 ML UDC- SA PATIENTS-PAIN ONLY GT SCH ×2 (11:00→21:07)
[2019-07-23] MEDS: NEPRO 1,000 ML BOTTLE GT PRN (11:25)
[2019-07-23 12:00] VITALS: BP 135/74
[2019-07-23] MEDS: SILVER SULFADIAZINE CREAM 25 GM TUBE TP SCH (12:00)
[2019-07-23] MEDS: Z GUARD REMEDY 4 OZ OINT TP SCH ×2 (12:00→21:55)
[2019-07-23] MEDS: BACI/NEOM/POLY B OINT PKT 1 UDPKT PACKET TP SCH ×2 (12:00→21:55)
[2019-07-23] MEDS: VITAMINS A AND D 56.7 GM TUBE TP SCH ×2 (12:00→21:55)
[2019-07-23] MEDS: MINERAL OIL/PETROL OINT 396 GM JAR TP SCH ×2 (12:00→21:55)
[2019-07-23 20:19] VITALS: BP 124/60
[2019-07-23] MEDS: TAMSULOSIN 0.4 MG CAP.SR.24H GT SCH (21:08)
[2019-07-23] MEDS: LATANOPROST EYE DROP 0.005% 2.5 ML BOTTLE EACHEYE SCH (21:08)
[2019-07-23] MEDS: ATORVASTATIN 10 MG TABLET GT SCH (21:08)
[2019-07-23] MEDS: INSULIN GLARGINE, 100 UNIT/ML CARTRIDGE SQ SCH (21:09)
[2019-07-24] MEDS: ALBUTEROL FS 2.5 MG/0.5 ML VIAL.NEB NEB SCH ×4 (00:43→19:27)
[2019-07-24] MEDS: IPRATROPIUM NEB FS 0.5 MG/2.5 ML AMPUL.NEB IH SCH ×4 (00:43→19:27)
[2019-07-24] MEDS: SIMETHICONE SUSP 40 MG/0.6 ML BOTTLE GT SCH ×4 (05:05→23:25)
[2019-07-24] MEDS: NYSTATIN (PYXIS) 500,000 UNIT/5 ML ORAL.SUSP PO SCH ×3 (05:05→21:11)
[2019-07-24] MEDS: OMEPRAZOLE 20 MG CAPSULE.DR GT SCH (05:05)
[2019-07-24] MEDS: REGLAN GT SCH ×3 (05:05→21:10)
[2019-07-24] MEDS: PROSTAT (PYXIS) 30 ML UDC GT SCH ×3 (05:05→21:10)
[2019-07-24] MEDS: LACOSAMIDE ORAL SOLN 50 MG/5 ML UDC GT SCH ×2 (05:06→17:59)
[2019-07-24] MEDS: BLOOD SUGAR DIAGNOSTIC 1 EACH STRIP IN SCH ×4 (06:02→23:25)
[2019-07-24] MEDS: INSULIN REGULAR, HUMAN 100 UNIT/ML 10 ML VIAL SQ SCH ×4 (06:03→23:26)
[2019-07-24 07:40] VITALS: BP 111/59
[2019-07-24] MEDS: HYDROGEN PEROXIDE 480 ML BOTTLE TP SCH ×2 (07:59→20:27)
[2019-07-24] MEDS: VITAMINS A AND D 56.7 GM TUBE TP SCH ×2 (09:00→21:44)
[2019-07-24] MEDS: BACI/NEOM/POLY B OINT PKT 1 UDPKT PACKET TP SCH ×2 (09:00→21:44)
[2019-07-24] MEDS: Z GUARD REMEDY 4 OZ OINT TP SCH ×2 (09:00→21:44)
[2019-07-24] MEDS: VIT B CMPLX 3/FA/VIT C/BIOTIN 1 TAB TABLET GT SCH (09:00)
[2019-07-24] MEDS: MINERAL OIL/PETROL OINT 396 GM JAR TP SCH ×2 (09:00→21:11)
[2019-07-24] MEDS: SILVER SULFADIAZINE CREAM 25 GM TUBE TP SCH (09:00)
[2019-07-24] MEDS: DORZOLAMIDE OPTH 2% 10 ML BOTTLE EACHEYE SCH ×3 (09:07→17:59)
[2019-07-24] MEDS: ACIDOPHILUS/BULGARICUS 1 EACH TAB.CHEW GT SCH (09:07)
[2019-07-24] MEDS: METOPROLOL TARTRATE 25 MG TABLET GT SCH ×2 (09:08→21:11)
[2019-07-24] MEDS: LINAGLIPTIN 5 MG TABLET GT SCH (09:08)
[2019-07-24] MEDS: PredniSONE SOLUTION 5 MG/5 ML UDC GT SCH (09:08)
[2019-07-24] MEDS: FINASTERIDE (5 MG) 5 MG TABLET GT SCH (09:08)
[2019-07-24] MEDS: POTASSIUM CHLORIDE 20MEQ TAB GT SCH (09:08)
[2019-07-24] MEDS: CHLORHEXIDINE GLUCONATE 15 ML UDC MM SCH ×2 (09:09→21:11)
[2019-07-24] MEDS: DOXYCYCLINE HYCLATE (100 MG) 100 MG TABLET GT SCH ×2 (09:09→21:11)
[2019-07-24] MEDS: ASCORBIC ACID 500 MG TABLET GT SCH ×2 (09:09→17:59)
[2019-07-24] MEDS: ACETAMINOPHEN 650 MG/20 ML UDC- SA PATIENTS-PAIN ONLY GT SCH ×2 (09:09→21:11)
--- NOTE | 2019-07-24 11:54 | NUR ---
Seen and examined by Dr. Garduno, with order to decrease Prednisone to 30 mg. starting 07/29/19 for Bullous Pemphigoid.
--- NOTE | 2019-07-24 12:57 | NUR ---
Seen and examined by Nilam Pineda, NO given.
[2019-07-24 20:33] VITALS: BP 136/79
[2019-07-24] MEDS: TAMSULOSIN 0.4 MG CAP.SR.24H GT SCH (21:11)
[2019-07-24] MEDS: LATANOPROST EYE DROP 0.005% 2.5 ML BOTTLE EACHEYE SCH (21:11)
[2019-07-24] MEDS: ATORVASTATIN 10 MG TABLET GT SCH (21:11)
[2019-07-24] MEDS: INSULIN GLARGINE, 100 UNIT/ML CARTRIDGE SQ SCH (21:13)
--- NOTE | 2019-07-24 22:03 | NUR ---
PT RECEIVE STABLE ON C/A @ 28% FIO2, TRACH PATENT AND SECURED, BACK UP PROSPER AND ASHLYN BAG IS AT BEDSIDE, WILL CONTINUE TO MONITOR Addendum: 07/24/19 at 2203 by TORSTEN STARKEY RT Amended: Links added.
[2019-07-25] MEDS: IPRATROPIUM NEB FS 0.5 MG/2.5 ML AMPUL.NEB IH SCH ×4 (01:38→19:51)
[2019-07-25] MEDS: ALBUTEROL FS 2.5 MG/0.5 ML VIAL.NEB NEB SCH ×4 (01:38→19:51)
[2019-07-25] MEDS: LACOSAMIDE ORAL SOLN 50 MG/5 ML UDC GT SCH ×2 (04:03→17:28)
[2019-07-25] MEDS: REGLAN GT SCH ×3 (04:03→21:27)
[2019-07-25] MEDS: OMEPRAZOLE 20 MG CAPSULE.DR GT SCH (04:03)
[2019-07-25] MEDS: PROSTAT (PYXIS) 30 ML UDC GT SCH ×3 (04:03→21:27)
[2019-07-25] MEDS: SIMETHICONE SUSP 40 MG/0.6 ML BOTTLE GT SCH ×4 (04:03→23:22)
[2019-07-25] MEDS: NYSTATIN (PYXIS) 500,000 UNIT/5 ML ORAL.SUSP PO SCH ×3 (04:03→21:28)
[2019-07-25] MEDS: BLOOD SUGAR DIAGNOSTIC 1 EACH STRIP IN SCH ×4 (04:06→23:22)
[2019-07-25] MEDS: INSULIN REGULAR, HUMAN 100 UNIT/ML 10 ML VIAL SQ SCH ×4 (04:07→23:23)
[2019-07-25] MEDS: MINERAL OIL/PETROL OINT 396 GM JAR TP SCH ×2 (09:00→21:28)
[2019-07-25] MEDS: LINAGLIPTIN 5 MG TABLET GT SCH (09:00)
[2019-07-25] MEDS: ACIDOPHILUS/BULGARICUS 1 EACH TAB.CHEW GT SCH (09:00)
[2019-07-25] MEDS: SILVER SULFADIAZINE CREAM 25 GM TUBE TP SCH (09:00)
[2019-07-25] MEDS: DORZOLAMIDE OPTH 2% 10 ML BOTTLE EACHEYE SCH ×3 (09:00→17:28)
[2019-07-25] MEDS: HYDROGEN PEROXIDE 480 ML BOTTLE TP SCH ×2 (09:00→19:51)
[2019-07-25] MEDS: METOPROLOL TARTRATE 25 MG TABLET GT SCH ×2 (09:00→21:28)
[2019-07-25] MEDS: CHLORHEXIDINE GLUCONATE 15 ML UDC MM SCH ×2 (09:00→21:28)
[2019-07-25] MEDS: BACI/NEOM/POLY B OINT PKT 1 UDPKT PACKET TP SCH ×2 (09:00→21:28)
[2019-07-25] MEDS: ASCORBIC ACID 500 MG TABLET GT SCH ×2 (09:00→17:28)
[2019-07-25] MEDS: Z GUARD REMEDY 4 OZ OINT TP SCH ×2 (09:00→21:28)
[2019-07-25] MEDS: POTASSIUM CHLORIDE 20MEQ TAB GT SCH (09:00)
[2019-07-25] MEDS: PredniSONE SOLUTION 5 MG/5 ML UDC GT SCH (09:00)
[2019-07-25] MEDS: DOXYCYCLINE HYCLATE (100 MG) 100 MG TABLET GT SCH ×2 (09:00→21:28)
[2019-07-25] MEDS: VIT B CMPLX 3/FA/VIT C/BIOTIN 1 TAB TABLET GT SCH (09:00)
[2019-07-25] MEDS: FINASTERIDE (5 MG) 5 MG TABLET GT SCH (09:00)
[2019-07-25] MEDS: ACETAMINOPHEN 650 MG/20 ML UDC- SA PATIENTS-PAIN ONLY GT SCH ×2 (09:00→21:28)
[2019-07-25] MEDS: VITAMINS A AND D 56.7 GM TUBE TP SCH ×2 (09:00→21:28)
[2019-07-25] MEDS: NEPRO 1,000 ML BOTTLE GT PRN (17:39)
--- NOTE | 2019-07-25 20:02 | NUR ---
RT NOTE: RECEIVED TRACH PT ON COOL AEROSOL. WILL PLACE PT ON VENT AT MIDNIGHT PER MD ORDER. TRACH IS PATENT AND SECURED. TRACH CARE DONE. Q6 BREATHING TX GIVEN WITH NO ADVERSE REACTION NOTED. SX DONE PRN. NO RESP DISTRESS AT THIS TIME. WILL CONT TO MONITOR PT. Addendum: 07/26/19 at 0245 by RAMYA HARKINS RT Amended: Links added.
[2019-07-25 20:24] VITALS: BP 117/58
[2019-07-25] MEDS: ATORVASTATIN 10 MG TABLET GT SCH (21:28)
[2019-07-25] MEDS: TAMSULOSIN 0.4 MG CAP.SR.24H GT SCH (21:28)
[2019-07-25] MEDS: LATANOPROST EYE DROP 0.005% 2.5 ML BOTTLE EACHEYE SCH (21:28)
[2019-07-25] MEDS: INSULIN GLARGINE, 100 UNIT/ML CARTRIDGE SQ SCH (21:29)
[2019-07-26] MEDS: IPRATROPIUM NEB FS 0.5 MG/2.5 ML AMPUL.NEB IH SCH ×4 (01:46→20:19)
[2019-07-26] MEDS: ALBUTEROL FS 2.5 MG/0.5 ML VIAL.NEB NEB SCH ×4 (01:46→20:19)
[2019-07-26] MEDS: PROSTAT (PYXIS) 30 ML UDC GT SCH ×3 (04:44→20:54)
[2019-07-26] MEDS: REGLAN GT SCH ×3 (04:44→20:54)
[2019-07-26] MEDS: NYSTATIN (PYXIS) 500,000 UNIT/5 ML ORAL.SUSP PO SCH ×3 (04:44→20:55)
[2019-07-26] MEDS: SIMETHICONE SUSP 40 MG/0.6 ML BOTTLE GT SCH ×4 (05:39→23:43)
[2019-07-26] MEDS: OMEPRAZOLE 20 MG CAPSULE.DR GT SCH (05:39)
[2019-07-26] MEDS: LACOSAMIDE ORAL SOLN 50 MG/5 ML UDC GT SCH ×2 (05:39→17:26)
[2019-07-26] MEDS: BLOOD SUGAR DIAGNOSTIC 1 EACH STRIP IN SCH ×4 (05:39→23:43)
[2019-07-26] MEDS: INSULIN REGULAR, HUMAN 100 UNIT/ML 10 ML VIAL SQ SCH ×4 (05:40→23:44)
[2019-07-26 07:44] VITALS: BP 106/65
[2019-07-26] MEDS: Z GUARD REMEDY 4 OZ OINT TP SCH ×2 (09:00→20:55)
[2019-07-26] MEDS: VITAMINS A AND D 56.7 GM TUBE TP SCH ×2 (09:00→20:55)
[2019-07-26] MEDS: SILVER SULFADIAZINE CREAM 25 GM TUBE TP SCH (09:00)
[2019-07-26] MEDS: MINERAL OIL/PETROL OINT 396 GM JAR TP SCH ×2 (09:00→20:55)
[2019-07-26] MEDS: BACI/NEOM/POLY B OINT PKT 1 UDPKT PACKET TP SCH ×2 (09:00→20:55)
[2019-07-26] MEDS: HYDROGEN PEROXIDE 480 ML BOTTLE TP SCH ×2 (09:29→20:55)
[2019-07-26] MEDS: POTASSIUM CHLORIDE 20MEQ TAB GT SCH (09:54)
[2019-07-26] MEDS: PredniSONE SOLUTION 5 MG/5 ML UDC GT SCH (09:54)
[2019-07-26] MEDS: ACIDOPHILUS/BULGARICUS 1 EACH TAB.CHEW GT SCH (09:54)
[2019-07-26] MEDS: DORZOLAMIDE OPTH 2% 10 ML BOTTLE EACHEYE SCH ×3 (09:54→17:26)
[2019-07-26] MEDS: LINAGLIPTIN 5 MG TABLET GT SCH (09:54)
[2019-07-26] MEDS: FINASTERIDE (5 MG) 5 MG TABLET GT SCH (09:54)
[2019-07-26] MEDS: VIT B CMPLX 3/FA/VIT C/BIOTIN 1 TAB TABLET GT SCH (09:54)
[2019-07-26] MEDS: DOXYCYCLINE HYCLATE (100 MG) 100 MG TABLET GT SCH ×2 (09:55→20:55)
[2019-07-26] MEDS: ACETAMINOPHEN 650 MG/20 ML UDC- SA PATIENTS-PAIN ONLY GT SCH ×2 (09:55→20:55)
[2019-07-26] MEDS: ASCORBIC ACID 500 MG TABLET GT SCH ×2 (09:55→17:26)
[2019-07-26] MEDS: METOPROLOL TARTRATE 25 MG TABLET GT SCH ×2 (09:55→21:04)
[2019-07-26] MEDS: CHLORHEXIDINE GLUCONATE 15 ML UDC MM SCH ×2 (09:55→20:55)
--- NOTE | 2019-07-26 11:07 | NUR ---
Notified Dr. Garduno that patient's blood sugar has been trending high from the time his Prednisone was increased. reviewed blood sugar reading for the past week, with new order to increase Lantus to 30 units Q HS. Addendum: 07/26/19 at 1533 by MATTHIAS VIVEROS RN Lantus dose increased from 30 units to 32 units.
[2019-07-26] MEDS: NEPRO 1,000 ML BOTTLE GT PRN (12:04)
[2019-07-26] MEDS: LATANOPROST EYE DROP 0.005% 2.5 ML BOTTLE EACHEYE SCH (21:03)
[2019-07-26] MEDS: ATORVASTATIN 10 MG TABLET GT SCH (21:03)
[2019-07-26] MEDS: TAMSULOSIN 0.4 MG CAP.SR.24H GT SCH (21:03)
[2019-07-26] MEDS ORDERED: INSULIN GLARGINE, 100 UNIT/ML CARTRIDGE SQ SCH (22:00)
[2019-07-26 22:07] VITALS: BP 103/65
[2019-07-27] MEDS: IPRATROPIUM NEB FS 0.5 MG/2.5 ML AMPUL.NEB IH SCH ×4 (01:55→19:55)
[2019-07-27] MEDS: ALBUTEROL FS 2.5 MG/0.5 ML VIAL.NEB NEB SCH ×4 (01:55→19:55)
--- NOTE | 2019-07-27 04:36 | NUR ---
RT NOTES PT RECEIVED ON COOL AEROSOL. PLACED ON VENT AT MIDNIGHT WITH ORDERED SETTINGS PER MD ORDERS. TRACH TUBE IN PLACE, PATENT, AND SECURED WITH TRACH TIE. ALARMS ON AND AUDIBLE. VENT PLUGGED IN TO RED OUTLET. AMBU BAG AND BACK UP TRACH BY THE BEDSIDE. PT SHOWS NO SIGNS OF DISTRESS AT THIS TIME. Addendum: 07/27/19 at 0437 by JHON PARISH RT Amended: Links added.
[2019-07-27] MEDS: PROSTAT (PYXIS) 30 ML UDC GT SCH ×3 (04:56→21:09)
[2019-07-27] MEDS: REGLAN GT SCH ×3 (04:56→21:09)
[2019-07-27] MEDS: NYSTATIN (PYXIS) 500,000 UNIT/5 ML ORAL.SUSP PO SCH ×3 (04:56→21:09)
[2019-07-27] MEDS: OMEPRAZOLE 20 MG CAPSULE.DR GT SCH (05:18)
[2019-07-27] MEDS: SIMETHICONE SUSP 40 MG/0.6 ML BOTTLE GT SCH ×4 (05:18→23:23)
[2019-07-27] MEDS: BLOOD SUGAR DIAGNOSTIC 1 EACH STRIP IN SCH ×4 (05:18→23:23)
[2019-07-27] MEDS: LACOSAMIDE ORAL SOLN 50 MG/5 ML UDC GT SCH ×2 (05:18→17:21)
[2019-07-27] MEDS: INSULIN REGULAR, HUMAN 100 UNIT/ML 10 ML VIAL SQ SCH ×4 (05:19→23:24)
--- NOTE | 2019-07-27 05:50 | NUR ---
Pt picked up by [facility] crew - for [facility] transport, pt in stable condition, afebrile, VS: T:98.6 HR 91 BP 122/70 02:99% on Cool Aerosol. Pt kept clean and dry, safety noted.
--- NOTE | 2019-07-27 10:00 | NUR ---
Dr. Garduno reviewed blood sugar reading, dc Lantus 32 units q HS and changed insulin to NPH 18 units to be given q 12 hours. Spoke with [place] from [email or web address] pharmacy and said that he didn't think NPH will be a problem with insurance coverage. Order faxed to pharmacy. Resident's son, Dr. Johns informed of new order.
--- NOTE | 2019-07-27 11:10 | NUR ---
Patient returned from hemodialysis as ordered with two EMT's and one RT via ambulance transportation and gurney. Eyes open. Trach with cool aerosol. GT in place patent no residual. Right upper chest with hemodialysis catheter with clean dressing. Total care provided. Kept clean and comfortable.
[2019-07-27] MEDS: HYDROGEN PEROXIDE 480 ML BOTTLE TP SCH ×2 (11:24→19:56)
[2019-07-27] MEDS: DORZOLAMIDE OPTH 2% 10 ML BOTTLE EACHEYE SCH ×3 (11:39→17:20)
[2019-07-27] MEDS: ACIDOPHILUS/BULGARICUS 1 EACH TAB.CHEW GT SCH (11:39)
[2019-07-27] MEDS: METOPROLOL TARTRATE 25 MG TABLET GT SCH ×2 (11:40→21:10)
[2019-07-27] MEDS: FINASTERIDE (5 MG) 5 MG TABLET GT SCH (11:41)
[2019-07-27] MEDS: PredniSONE SOLUTION 5 MG/5 ML UDC GT SCH (11:41)
[2019-07-27] MEDS: POTASSIUM CHLORIDE 20MEQ TAB GT SCH (11:41)
[2019-07-27] MEDS: VIT B CMPLX 3/FA/VIT C/BIOTIN 1 TAB TABLET GT SCH (11:41)
[2019-07-27] MEDS: ACETAMINOPHEN 650 MG/20 ML UDC- SA PATIENTS-PAIN ONLY GT SCH ×2 (11:41→21:09)
[2019-07-27] MEDS: LINAGLIPTIN 5 MG TABLET GT SCH (11:41)
[2019-07-27] MEDS: DOXYCYCLINE HYCLATE (100 MG) 100 MG TABLET GT SCH ×2 (11:42→21:09)
[2019-07-27] MEDS: ASCORBIC ACID 500 MG TABLET GT SCH ×2 (11:42→17:21)
[2019-07-27] MEDS: CHLORHEXIDINE GLUCONATE 15 ML UDC MM SCH ×2 (11:42→21:09)
[2019-07-27 12:25] VITALS: BP 100/70
[2019-07-27] MEDS: NEPRO 1,000 ML BOTTLE GT PRN (14:04)
[2019-07-27] MEDS: BACI/NEOM/POLY B OINT PKT 1 UDPKT PACKET TP SCH ×2 (14:07→21:10)
[2019-07-27] MEDS: MINERAL OIL/PETROL OINT 396 GM JAR TP SCH ×2 (14:07→21:10)
[2019-07-27] MEDS: Z GUARD REMEDY 4 OZ OINT TP SCH ×2 (14:08→21:10)
[2019-07-27] MEDS: VITAMINS A AND D 56.7 GM TUBE TP SCH ×2 (14:08→21:10)
[2019-07-27] MEDS: SILVER SULFADIAZINE CREAM 25 GM TUBE TP SCH (14:08)
[2019-07-27] MEDS: LATANOPROST EYE DROP 0.005% 2.5 ML BOTTLE EACHEYE SCH (21:10)
[2019-07-27] MEDS: INSULIN NPH, HUMAN ISOPHANE 100 UNIT/ML VIAL SQ SCH (21:10)
[2019-07-27] MEDS: ATORVASTATIN 10 MG TABLET GT SCH (21:10)
[2019-07-27] MEDS: TAMSULOSIN 0.4 MG CAP.SR.24H GT SCH (21:10)
[2019-07-27 21:17] VITALS: BP 127/59
[2019-07-28] MEDS: IPRATROPIUM NEB FS 0.5 MG/2.5 ML AMPUL.NEB IH SCH ×4 (01:29→19:36)
[2019-07-28] MEDS: ALBUTEROL FS 2.5 MG/0.5 ML VIAL.NEB NEB SCH ×4 (01:29→19:36)
[2019-07-28] MEDS: PROSTAT (PYXIS) 30 ML UDC GT SCH ×3 (04:53→20:27)
[2019-07-28] MEDS: REGLAN GT SCH ×3 (04:53→20:26)
[2019-07-28] MEDS: NYSTATIN (PYXIS) 500,000 UNIT/5 ML ORAL.SUSP PO SCH ×3 (04:54→20:30)
[2019-07-28] MEDS: OMEPRAZOLE 20 MG CAPSULE.DR GT SCH (05:09)
[2019-07-28] MEDS: LACOSAMIDE ORAL SOLN 50 MG/5 ML UDC GT SCH ×2 (05:09→17:04)
[2019-07-28] MEDS: SIMETHICONE SUSP 40 MG/0.6 ML BOTTLE GT SCH ×3 (05:09→17:04)
[2019-07-28] MEDS: BLOOD SUGAR DIAGNOSTIC 1 EACH STRIP IN SCH ×3 (05:29→17:04)
[2019-07-28] MEDS: INSULIN REGULAR, HUMAN 100 UNIT/ML 10 ML VIAL SQ SCH ×3 (05:30→18:05)
--- NOTE | 2019-07-28 05:46 | NUR ---
RT NOTE PATIENT RECEIVED ON TRACH WITH COOL AEROSOL WITH VENTILATOR AT BEDSIDE. TRACH IS PATENT AND SECURED. ALARMS ARE SET AND AUDIBLE. PATIENT TOLERATED VENT WELL FROM MIDNIGHT TO 5AM. SPARE TRACH AND AMBU BAG IS AT BEDSIDE. PATIENT HAS EQUAL CHEST RISE WITH COARSE BILATERAL BREATH SOUNDS. SUCTION MODERATE AMOUNT OF THICK GREEN SECRETIONS T/O THE NIGHT. NO SOB NOTED. Addendum: 07/28/19 at 0548 by SKIP DALE RT Amended: Links added.
[2019-07-28 07:37] VITALS: BP 113/62
[2019-07-28] MEDS: VIT B CMPLX 3/FA/VIT C/BIOTIN 1 TAB TABLET GT SCH (09:00)
[2019-07-28] MEDS: ASCORBIC ACID 500 MG TABLET GT SCH ×2 (09:00→16:41)
[2019-07-28] MEDS: BACI/NEOM/POLY B OINT PKT 1 UDPKT PACKET TP SCH ×2 (09:00→20:31)
[2019-07-28] MEDS: INSULIN NPH, HUMAN ISOPHANE 100 UNIT/ML VIAL SQ SCH ×2 (09:00→20:41)
[2019-07-28] MEDS: ACETAMINOPHEN 650 MG/20 ML UDC- SA PATIENTS-PAIN ONLY GT SCH ×2 (09:00→20:27)
[2019-07-28] MEDS: FINASTERIDE (5 MG) 5 MG TABLET GT SCH (09:00)
[2019-07-28] MEDS: HYDROGEN PEROXIDE 480 ML BOTTLE TP SCH ×2 (09:00→19:36)
[2019-07-28] MEDS: PredniSONE SOLUTION 5 MG/5 ML UDC GT SCH (09:00)
[2019-07-28] MEDS: SILVER SULFADIAZINE CREAM 25 GM TUBE TP SCH (09:00)
[2019-07-28] MEDS: CHLORHEXIDINE GLUCONATE 15 ML UDC MM SCH ×2 (09:00→20:29)
[2019-07-28] MEDS: Z GUARD REMEDY 4 OZ OINT TP SCH ×2 (09:00→20:31)
[2019-07-28] MEDS: VITAMINS A AND D 56.7 GM TUBE TP SCH ×2 (09:00→20:31)
[2019-07-28] MEDS: METOPROLOL TARTRATE 25 MG TABLET GT SCH ×2 (09:00→21:56)
[2019-07-28] MEDS: LINAGLIPTIN 5 MG TABLET GT SCH (09:00)
[2019-07-28] MEDS: ACIDOPHILUS/BULGARICUS 1 EACH TAB.CHEW GT SCH (09:00)
[2019-07-28] MEDS: MINERAL OIL/PETROL OINT 396 GM JAR TP SCH ×2 (09:00→20:31)
[2019-07-28] MEDS: DORZOLAMIDE OPTH 2% 10 ML BOTTLE EACHEYE SCH ×3 (09:00→16:41)
[2019-07-28] MEDS: DOXYCYCLINE HYCLATE (100 MG) 100 MG TABLET GT SCH ×2 (09:00→20:29)
[2019-07-28] MEDS: POTASSIUM CHLORIDE 20MEQ TAB GT SCH (09:00)
[2019-07-28] MEDS: NEPRO 1,000 ML BOTTLE GT PRN (18:27)
--- NOTE | 2019-07-28 19:47 | NUR ---
RT NOTE: RECEIVED TRACH PT ON COOL AEROSOL. WILL PLACE PT ON VENT AT MIDNIGHT PER MD ORDER. TRACH IS PATENT AND SECURED. TRACH CARE DONE. Q6 BREATHING TX GIVEN WITH NO ADVERSE REACTION NOTED. SX DONE PRN. NO RESP DISTRESS AT THIS TIME. WILL CONT TO MONITOR PT. Addendum: 07/29/19 at 0252 by RAMYA HARKINS RT Amended: Links added.
[2019-07-28 19:52] VITALS: BP 122/76
[2019-07-28] MEDS: LATANOPROST EYE DROP 0.005% 2.5 ML BOTTLE EACHEYE SCH (21:55)
[2019-07-28] MEDS: TAMSULOSIN 0.4 MG CAP.SR.24H GT SCH (21:55)
[2019-07-28] MEDS: ATORVASTATIN 10 MG TABLET GT SCH (21:55)
[2019-07-29] MEDS: SIMETHICONE SUSP 40 MG/0.6 ML BOTTLE GT SCH ×5 (00:55→23:26)
[2019-07-29] MEDS: BLOOD SUGAR DIAGNOSTIC 1 EACH STRIP IN SCH ×5 (00:56→23:26)
[2019-07-29] MEDS: INSULIN REGULAR, HUMAN 100 UNIT/ML 10 ML VIAL SQ SCH ×5 (00:58→23:27)
[2019-07-29] MEDS: IPRATROPIUM NEB FS 0.5 MG/2.5 ML AMPUL.NEB IH SCH ×4 (01:55→19:46)
[2019-07-29] MEDS: ALBUTEROL FS 2.5 MG/0.5 ML VIAL.NEB NEB SCH ×4 (01:55→19:46)
[2019-07-29] MEDS: REGLAN GT SCH ×3 (05:42→21:14)
[2019-07-29] MEDS: NYSTATIN (PYXIS) 500,000 UNIT/5 ML ORAL.SUSP PO SCH ×3 (05:43→21:15)
[2019-07-29] MEDS: PROSTAT (PYXIS) 30 ML UDC GT SCH ×3 (05:43→21:14)
[2019-07-29] MEDS: OMEPRAZOLE 20 MG CAPSULE.DR GT SCH (05:44)
[2019-07-29] MEDS: LACOSAMIDE ORAL SOLN 50 MG/5 ML UDC GT SCH ×2 (05:45→17:44)
[2019-07-29 07:30] VITALS: BP 124/60
[2019-07-29] MEDS: INSULIN NPH, HUMAN ISOPHANE 100 UNIT/ML VIAL SQ SCH ×2 (09:00→21:16)
[2019-07-29] MEDS: HYDROGEN PEROXIDE 480 ML BOTTLE TP SCH ×2 (09:00→19:46)
[2019-07-29] MEDS: ACIDOPHILUS/BULGARICUS 1 EACH TAB.CHEW GT SCH (09:46)
[2019-07-29] MEDS: DORZOLAMIDE OPTH 2% 10 ML BOTTLE EACHEYE SCH ×3 (09:46→17:44)
[2019-07-29] MEDS: POTASSIUM CHLORIDE 20MEQ TAB GT SCH (09:48)
[2019-07-29] MEDS: VIT B CMPLX 3/FA/VIT C/BIOTIN 1 TAB TABLET GT SCH (09:48)
[2019-07-29] MEDS: METOPROLOL TARTRATE 25 MG TABLET GT SCH ×2 (09:48→21:16)
[2019-07-29] MEDS: PredniSONE SOLUTION 5 MG/5 ML UDC GT SCH (09:49)
[2019-07-29] MEDS: FINASTERIDE (5 MG) 5 MG TABLET GT SCH (09:49)
[2019-07-29] MEDS: ASCORBIC ACID 500 MG TABLET GT SCH ×2 (09:49→17:44)
[2019-07-29] MEDS: LINAGLIPTIN 5 MG TABLET GT SCH (09:49)
[2019-07-29] MEDS: DOXYCYCLINE HYCLATE (100 MG) 100 MG TABLET GT SCH ×2 (09:49→21:15)
[2019-07-29] MEDS: ACETAMINOPHEN 650 MG/20 ML UDC- SA PATIENTS-PAIN ONLY GT SCH ×2 (09:49→21:15)
[2019-07-29] MEDS: CHLORHEXIDINE GLUCONATE 15 ML UDC MM SCH ×2 (09:49→21:15)
[2019-07-29] MEDS: BACI/NEOM/POLY B OINT PKT 1 UDPKT PACKET TP SCH ×2 (10:49→21:53)
[2019-07-29] MEDS: Z GUARD REMEDY 4 OZ OINT TP SCH ×2 (10:49→21:54)
[2019-07-29] MEDS: SILVER SULFADIAZINE CREAM 25 GM TUBE TP SCH (10:49)
[2019-07-29] MEDS: VITAMINS A AND D 56.7 GM TUBE TP SCH ×2 (10:49→21:54)
[2019-07-29] MEDS: MINERAL OIL/PETROL OINT 396 GM JAR TP SCH ×2 (10:49→21:53)
--- NOTE | 2019-07-29 10:51 | NUR ---
PT RECEIVE STABLE ON 28%FIO2 C/A VIA T-BAR, TRACH PATENT AND SECURED, SIGRID CHENG AND ASHLYN BAG IS AT BEDSIDE , WILL CONTINUE TO MONITOR Addendum: 07/29/19 at 1051 by TORSTEN STARKEY RT Amended: Links added.
[2019-07-29] MEDS: NEPRO 1,000 ML BOTTLE GT PRN (14:10)
[2019-07-29 20:19] VITALS: BP 132/66
[2019-07-29] MEDS: TAMSULOSIN 0.4 MG CAP.SR.24H GT SCH (21:16)
[2019-07-29] MEDS: ATORVASTATIN 10 MG TABLET GT SCH (21:16)
[2019-07-29] MEDS: LATANOPROST EYE DROP 0.005% 2.5 ML BOTTLE EACHEYE SCH (21:16)
[2019-07-30] MEDS: IPRATROPIUM NEB FS 0.5 MG/2.5 ML AMPUL.NEB IH SCH ×4 (02:01→19:50)
[2019-07-30] MEDS: ALBUTEROL FS 2.5 MG/0.5 ML VIAL.NEB NEB SCH ×4 (02:01→19:50)
[2019-07-30] MEDS: PROSTAT (PYXIS) 30 ML UDC GT SCH ×3 (05:21→20:51)
[2019-07-30] MEDS: NYSTATIN (PYXIS) 500,000 UNIT/5 ML ORAL.SUSP PO SCH ×3 (05:21→20:52)
[2019-07-30] MEDS: SIMETHICONE SUSP 40 MG/0.6 ML BOTTLE GT SCH ×3 (05:21→17:48)
[2019-07-30] MEDS: REGLAN GT SCH ×3 (05:21→20:50)
[2019-07-30] MEDS: INSULIN REGULAR, HUMAN 100 UNIT/ML 10 ML VIAL SQ SCH ×3 (05:22→17:53)
[2019-07-30] MEDS: BLOOD SUGAR DIAGNOSTIC 1 EACH STRIP IN SCH ×3 (05:22→17:53)
[2019-07-30] MEDS: LACOSAMIDE ORAL SOLN 50 MG/5 ML UDC GT SCH ×2 (05:22→17:48)
[2019-07-30] MEDS: OMEPRAZOLE 20 MG CAPSULE.DR GT SCH (05:22)
[2019-07-30] MEDS: CHLORHEXIDINE GLUCONATE 15 ML UDC MM SCH ×2 (11:00→20:52)
[2019-07-30] MEDS: POTASSIUM CHLORIDE 20MEQ TAB GT SCH (11:00)
[2019-07-30] MEDS: METOPROLOL TARTRATE 25 MG TABLET GT SCH ×2 (11:00→21:43)
[2019-07-30] MEDS: PredniSONE SOLUTION 5 MG/5 ML UDC GT SCH (11:00)
[2019-07-30] MEDS: ACIDOPHILUS/BULGARICUS 1 EACH TAB.CHEW GT SCH (11:00)
[2019-07-30] MEDS: DOXYCYCLINE HYCLATE (100 MG) 100 MG TABLET GT SCH ×2 (11:00→20:52)
[2019-07-30] MEDS: LINAGLIPTIN 5 MG TABLET GT SCH (11:00)
[2019-07-30] MEDS: ASCORBIC ACID 500 MG TABLET GT SCH ×2 (11:00→17:48)
[2019-07-30] MEDS: FINASTERIDE (5 MG) 5 MG TABLET GT SCH (11:00)
[2019-07-30] MEDS: DORZOLAMIDE OPTH 2% 10 ML BOTTLE EACHEYE SCH ×3 (11:00→17:48)
[2019-07-30] MEDS: ACETAMINOPHEN 650 MG/20 ML UDC- SA PATIENTS-PAIN ONLY GT SCH ×2 (11:00→20:51)
[2019-07-30] MEDS: VIT B CMPLX 3/FA/VIT C/BIOTIN 1 TAB TABLET GT SCH (11:00)
[2019-07-30] MEDS: NEPRO 1,000 ML BOTTLE GT PRN (11:06)
[2019-07-30] MEDS: INSULIN NPH, HUMAN ISOPHANE 100 UNIT/ML VIAL SQ SCH ×2 (11:37→21:42)
[2019-07-30] MEDS: SILVER SULFADIAZINE CREAM 25 GM TUBE TP SCH (12:00)
[2019-07-30] MEDS: BACI/NEOM/POLY B OINT PKT 1 UDPKT PACKET TP SCH ×2 (12:00→20:54)
[2019-07-30] MEDS: VITAMINS A AND D 56.7 GM TUBE TP SCH ×2 (12:00→20:54)
[2019-07-30] MEDS: MINERAL OIL/PETROL OINT 396 GM JAR TP SCH ×2 (12:00→20:53)
[2019-07-30] MEDS: Z GUARD REMEDY 4 OZ OINT TP SCH ×2 (12:00→20:54)
[2019-07-30] MEDS ORDERED: DIATR MEGLU/DIATRIZOATE SODIUM 30 ML BOTTLE (GASTROGRAPHIN) ONE (12:34)
--- NOTE | 2019-07-30 13:00 | NUR ---
Pt's GT came out, balloon was defective. GT was replaced. Informed Dr Newman, he said he is not on this week. Informed Dr Garduno. Received order to do KUB to verify GT placement. Notified pt's son.
[2019-07-30 20:44] VITALS: BP 133/69
[2019-07-30] MEDS: HYDROGEN PEROXIDE 480 ML BOTTLE TP SCH (21:00)
[2019-07-30] MEDS: ATORVASTATIN 10 MG TABLET GT SCH (21:42)
[2019-07-30] MEDS: LATANOPROST EYE DROP 0.005% 2.5 ML BOTTLE EACHEYE SCH (21:42)
[2019-07-30] MEDS: TAMSULOSIN 0.4 MG CAP.SR.24H GT SCH (21:42)
[2019-07-31] MEDS: BLOOD SUGAR DIAGNOSTIC 1 EACH STRIP IN SCH ×5 (00:50→23:42)
[2019-07-31] MEDS: SIMETHICONE SUSP 40 MG/0.6 ML BOTTLE GT SCH ×5 (00:50→23:42)
[2019-07-31] MEDS: INSULIN REGULAR, HUMAN 100 UNIT/ML 10 ML VIAL SQ SCH ×5 (00:51→23:43)
[2019-07-31] MEDS: ALBUTEROL FS 2.5 MG/0.5 ML VIAL.NEB NEB SCH ×4 (01:30→20:03)
[2019-07-31] MEDS: IPRATROPIUM NEB FS 0.5 MG/2.5 ML AMPUL.NEB IH SCH ×4 (01:40→20:03)
[2019-07-31] MEDS: REGLAN GT SCH ×3 (05:37→21:44)
[2019-07-31] MEDS: PROSTAT (PYXIS) 30 ML UDC GT SCH ×3 (05:37→21:44)
[2019-07-31] MEDS: NYSTATIN (PYXIS) 500,000 UNIT/5 ML ORAL.SUSP PO SCH ×3 (05:38→21:44)
[2019-07-31] MEDS: OMEPRAZOLE 20 MG CAPSULE.DR GT SCH (05:39)
[2019-07-31] MEDS: LACOSAMIDE ORAL SOLN 50 MG/5 ML UDC GT SCH ×2 (05:40→17:09)
[2019-07-31 07:38] VITALS: BP 106/57
[2019-07-31] MEDS: HYDROGEN PEROXIDE 480 ML BOTTLE TP SCH ×2 (08:07→20:03)
[2019-07-31] MEDS: SILVER SULFADIAZINE CREAM 25 GM TUBE TP SCH (09:00)
[2019-07-31] MEDS: MINERAL OIL/PETROL OINT 396 GM JAR TP SCH ×2 (09:00→21:45)
[2019-07-31] MEDS: VITAMINS A AND D 56.7 GM TUBE TP SCH ×2 (09:00→21:45)
[2019-07-31] MEDS: Z GUARD REMEDY 4 OZ OINT TP SCH ×2 (09:00→21:45)
[2019-07-31] MEDS: BACI/NEOM/POLY B OINT PKT 1 UDPKT PACKET TP SCH ×2 (09:00→21:45)
[2019-07-31] MEDS: METOPROLOL TARTRATE 25 MG TABLET GT SCH ×2 (09:30→21:47)
[2019-07-31] MEDS: PredniSONE SOLUTION 5 MG/5 ML UDC GT SCH (09:30)
[2019-07-31] MEDS: LINAGLIPTIN 5 MG TABLET GT SCH (09:30)
[2019-07-31] MEDS: FINASTERIDE (5 MG) 5 MG TABLET GT SCH (09:30)
[2019-07-31] MEDS: ACETAMINOPHEN 650 MG/20 ML UDC- SA PATIENTS-PAIN ONLY GT SCH ×2 (09:30→20:41)
[2019-07-31] MEDS: VIT B CMPLX 3/FA/VIT C/BIOTIN 1 TAB TABLET GT SCH (09:30)
[2019-07-31] MEDS: ACIDOPHILUS/BULGARICUS 1 EACH TAB.CHEW GT SCH (09:30)
[2019-07-31] MEDS: POTASSIUM CHLORIDE 20MEQ TAB GT SCH (09:30)
[2019-07-31] MEDS: DORZOLAMIDE OPTH 2% 10 ML BOTTLE EACHEYE SCH ×3 (09:30→17:09)
[2019-07-31] MEDS: CHLORHEXIDINE GLUCONATE 15 ML UDC MM SCH ×2 (09:31→21:44)
[2019-07-31] MEDS: INSULIN NPH, HUMAN ISOPHANE 100 UNIT/ML VIAL SQ SCH ×2 (09:31→21:45)
[2019-07-31] MEDS: DOXYCYCLINE HYCLATE (100 MG) 100 MG TABLET GT SCH ×2 (09:31→21:44)
[2019-07-31] MEDS: ASCORBIC ACID 500 MG TABLET GT SCH ×2 (09:31→17:09)
--- NOTE | 2019-07-31 11:32 | NUR ---
Informed PAC Win Allen that GT site has hypergranulation tissue and GT has been coming off more often. PA assessed patient's GT site. She cauterization GT site at bedside with silver nitrate sticks. GT site leaking also observed, reinforced with dressing and tape, no bleeding noted.
--- NOTE | 2019-07-31 12:40 | NUR ---
Family was not able to attend today's Family Support Group held from 11am-12noon. SW will invite and encourage family to attend August's Family Support Group.
--- NOTE | 2019-07-31 14:57 | NUR ---
Seen and examined by BRANDO Pineda, NNO given.
--- NOTE | 2019-07-31 17:14 | NUR ---
RT NOTE RECEIVED PATIENT ON TRACH WITH COOL AEROSOL. TRACH IS PATENT AND SECURED. SPARE TRACH AND AMBU BAG IS AT BEDSIDE. PATIENT HAS EQUAL CHEST RISE WITH COARSE BILATERAL BREATH SOUNDS. SUCTION MODERATE AMOUNT OF THICK GREEN/WHITE SECRETIONS TROUGH OUT THE DAY. TRACH CARE WAS PERFORMED. BREATHING TREATMENTS GIVEN WITH NO ADVERSE REACTION. NO SOB NOTED. Addendum: 07/31/19 at 1714 by SKIP DALE RT Amended: Links added.
--- NOTE | 2019-07-31 20:45 | NUR ---
PT RCVD TRACH'D ON COOL AEROSOL WITH CHARTED SETTINGS. PT TONY TX WELL. SX DONE. PT TRACH IS PATENT AND SECURE. AMBU BAG AT BEDSIDE. NO SOB NOTED. Addendum: 07/31/19 at 2045 by TITO GARCES RT Amended: Links added.
[2019-07-31] MEDS: LATANOPROST EYE DROP 0.005% 2.5 ML BOTTLE EACHEYE SCH (21:46)
[2019-07-31] MEDS: ATORVASTATIN 10 MG TABLET GT SCH (21:46)
[2019-07-31] MEDS: TAMSULOSIN 0.4 MG CAP.SR.24H GT SCH (21:46)
[2019-08-01] MEDS: IPRATROPIUM NEB FS 0.5 MG/2.5 ML AMPUL.NEB IH SCH ×4 (00:54→19:44)
[2019-08-01] MEDS: ALBUTEROL FS 2.5 MG/0.5 ML VIAL.NEB NEB SCH ×4 (00:54→19:44)
[2019-08-01] MEDS: LACOSAMIDE ORAL SOLN 50 MG/5 ML UDC GT SCH ×2 (05:15→17:19)
[2019-08-01] MEDS: SIMETHICONE SUSP 40 MG/0.6 ML BOTTLE GT SCH ×3 (05:15→17:19)
[2019-08-01] MEDS: BLOOD SUGAR DIAGNOSTIC 1 EACH STRIP IN SCH ×3 (05:15→17:19)
[2019-08-01] MEDS: REGLAN GT SCH ×3 (05:15→21:10)
[2019-08-01] MEDS: PROSTAT (PYXIS) 30 ML UDC GT SCH ×3 (05:15→21:10)
[2019-08-01] MEDS: NYSTATIN (PYXIS) 500,000 UNIT/5 ML ORAL.SUSP PO SCH ×3 (05:15→21:11)
[2019-08-01] MEDS: OMEPRAZOLE 20 MG CAPSULE.DR GT SCH (05:15)
[2019-08-01] MEDS: INSULIN REGULAR, HUMAN 100 UNIT/ML 10 ML VIAL SQ SCH ×3 (05:16→17:20)
--- NOTE | 2019-08-01 07:59 | NUR ---
RT NOTE PATIENT ABSENT FROM DEPARTMENT. BREATHING TREATMENT NOT GIVEN. Addendum: 08/01/19 at 0800 by SKIP DALE RT Amended: Links added.
[2019-08-01] MEDS: VITAMINS A AND D 56.7 GM TUBE TP SCH ×2 (09:00→21:11)
[2019-08-01] MEDS: BACI/NEOM/POLY B OINT PKT 1 UDPKT PACKET TP SCH ×2 (09:00→21:11)
[2019-08-01] MEDS: LINAGLIPTIN 5 MG TABLET GT SCH (09:00)
[2019-08-01] MEDS: ACIDOPHILUS/BULGARICUS 1 EACH TAB.CHEW GT SCH (09:00)
[2019-08-01] MEDS: VIT B CMPLX 3/FA/VIT C/BIOTIN 1 TAB TABLET GT SCH (09:00)
[2019-08-01] MEDS: MINERAL OIL/PETROL OINT 396 GM JAR TP SCH ×2 (09:00→21:11)
[2019-08-01] MEDS: INSULIN NPH, HUMAN ISOPHANE 100 UNIT/ML VIAL SQ SCH ×2 (09:00→21:17)
[2019-08-01] MEDS: DOXYCYCLINE HYCLATE (100 MG) 100 MG TABLET GT SCH ×2 (09:00→21:11)
[2019-08-01] MEDS: PredniSONE SOLUTION 5 MG/5 ML UDC GT SCH (09:00)
[2019-08-01] MEDS: Z GUARD REMEDY 4 OZ OINT TP SCH ×2 (09:00→21:11)
[2019-08-01] MEDS: POTASSIUM CHLORIDE 20MEQ TAB GT SCH (09:00)
[2019-08-01] MEDS: ACETAMINOPHEN 650 MG/20 ML UDC- SA PATIENTS-PAIN ONLY GT SCH ×2 (09:00→21:10)
[2019-08-01] MEDS: METOPROLOL TARTRATE 25 MG TABLET GT SCH ×2 (09:00→21:12)
[2019-08-01] MEDS: FINASTERIDE (5 MG) 5 MG TABLET GT SCH (09:00)
[2019-08-01] MEDS: ASCORBIC ACID 500 MG TABLET GT SCH ×2 (09:00→17:19)
[2019-08-01] MEDS: DORZOLAMIDE OPTH 2% 10 ML BOTTLE EACHEYE SCH ×3 (09:00→17:19)
[2019-08-01] MEDS: SILVER SULFADIAZINE CREAM 25 GM TUBE TP SCH (09:00)
[2019-08-01] MEDS: HYDROGEN PEROXIDE 480 ML BOTTLE TP SCH ×2 (09:00→20:37)
[2019-08-01] MEDS: CHLORHEXIDINE GLUCONATE 15 ML UDC MM SCH ×2 (09:00→21:11)
[2019-08-01 11:30] VITALS: BP 116/69
--- NOTE | 2019-08-01 12:05 | NUR ---
Pt's G-tube site noted with some bleeding. ROSEMARIE Allen applied silver nitrate on pt's G-tube site granulation yesterday and night charge nurse reported that they noticed bleeding on the site. Dr Randy Martell was informed and he will ask his ROSEMARIE Lanier to see pt.
[2019-08-01] MEDS: NEPRO 1,000 ML BOTTLE GT PRN (12:09)
[2019-08-01] MEDS ORDERED: CELLULOSE,OXIDIZED 1 EACH EACH MC ONE ×2 (12:41→19:30)
--- NOTE | 2019-08-01 12:52 | NUR ---
ROSEMARIE Lanier came to see pt. Bleeding noted on G-tube site granulation tissue. ROSEMARIE Lanier said to call GI to see pt. She called Dr Randy Martell. He told her to apply Surgicell and calcium alginate on the G-tube site. Called GI Dr Fraser. He said he does not have time to see pt.
--- NOTE | 2019-08-01 14:53 | NUR ---
ROSEMARIE Lanier saw pt again. Bleeding seems to have improved. ROSEMARIE Lanier ordered to apply Surgicel, calcium alginate and thick compression dressing on the GT site granulation. She said she will pt again tomorrow and she might refer pt to general surgical team if needed.
--- NOTE | 2019-08-01 14:56 | NUR ---
MDS: Silk Worker completed the Product Safety Professional portion of Quarter MDS. The patients responsible republican is the pt.s son, Dr. Johns [phone] who is very involved and supportive. Per EMR, the pt. is Non-Communicative, DNR, Vent with trach and g-tube feeding: PEG Nepro at 50ml/hr x 20 hr + Prostat TID. The patients last home mortgage disclosure act specialist visit by Dr. Reddy was on 04/19/19. The last Dentist visit by Dr. Miramontes was on 11/26/18 . The last County Manager visit by was on 07/26/19.
--- NOTE | 2019-08-01 17:28 | NUR ---
RT NOTE RECEIVED PATIENT ON TRACH WITH COOL AEROSOL. TRACH IS PATENT AND SECURED. SPARE TRACH AND AMBU BAG IS AT BEDSIDE. PATIENT HAS EQUAL CHEST RISE WITH COARSE BILATERAL BREATH SOUNDS. SUCTION SMALL AMOUNT OF THICK GREEN/WHITE SECRETIONS TROUGH OUT THE DAY. TRACH CARE WAS PERFORMED. BREATHING TREATMENTS GIVEN WITH NO ADVERSE REACTION. NO SOB NOTED. Addendum: 08/01/19 at 1728 by SKIP DALE RT Amended: Links added.
--- NOTE | 2019-08-01 17:30 | NUR ---
No bleeding noted from GT site.
--- NOTE | 2019-08-01 18:00 | NUR ---
Pt's son at bedside. Informed him of bleeding from GT site and new orders.
--- NOTE | 2019-08-01 19:09 | NUR ---
GT site dressing soaked with blood. Cleansed the GT site and applied new dressings. Pt's arms contracted and touching the GT site. Placed pillows to prevent arms from touching GT. Informed ROSEMARIE Lanier.
[2019-08-01 20:13] VITALS: BP 119/58
--- NOTE | 2019-08-01 20:20 | NUR ---
RECEIVED ORDER FROM RACHAEL MICHAELS FOR SURGERY CONSULT IN AM.MINIMAL BLEEDING NOTED ON THE SITE,WILL CONTINUE TO MONITOR.VITAL SIGNS STABLE.WILL CONTINUE TO MONITOR.
[2019-08-01] MEDS: TAMSULOSIN 0.4 MG CAP.SR.24H GT SCH (21:11)
[2019-08-01] MEDS: ATORVASTATIN 10 MG TABLET GT SCH (21:11)
[2019-08-01] MEDS: LATANOPROST EYE DROP 0.005% 2.5 ML BOTTLE EACHEYE SCH (21:11)
--- NOTE | 2019-08-01 21:24 | NUR ---
PT RECEIVE STABLE ON C/A @ 28% FIO2, TRACH PATENT AND SECURED, BACK UP PROSPER AND ASHLYN BAG IS AT BEDSIDE, WILL CONTINUE TO MONITOR Addendum: 08/01/19 at 2124 by TORSTEN STARKEY RT Amended: Links added.
[2019-08-02] MEDS: BLOOD SUGAR DIAGNOSTIC 1 EACH STRIP IN SCH (00:28)
[2019-08-02] MEDS: SIMETHICONE SUSP 40 MG/0.6 ML BOTTLE GT SCH (00:28)
[2019-08-02] MEDS: INSULIN REGULAR, HUMAN 100 UNIT/ML 10 ML VIAL SQ SCH (00:32)
[2019-08-02] MEDS: IPRATROPIUM NEB FS 0.5 MG/2.5 ML AMPUL.NEB IH SCH (01:19)
[2019-08-02] MEDS: ALBUTEROL FS 2.5 MG/0.5 ML VIAL.NEB NEB SCH (01:19)
--- NOTE | 2019-08-02 02:00 | NUR ---
KETTLE LOADER Note: Patient noted respiration rate of 34, HR 89, appeared to be in pain m/b facial grimacing. PRN [place] 5/325 mg given via GT, will closely monitor.
--- NOTE | 2019-08-02 05:42 | NUR ---
RT NOTE RT RESPONDED TO RAPID RESPONSE AT 0530 , PT DNR/DNI
--- NOTE | 2019-08-02 06:00 | NUR ---
PATIENT NOTICED UNRESPONSIVE,OFFICE SUPERVISOR CALLED AND RESPONDED RIGHT AWAY,BP UNABLE TO TO READ, ,PULSELESS,PUPILS FIXED AND DILATED.2 RN PRONOUNCE @0532 BY 2 RN WITNESSED.PT CODE STATUS IS DNR. LEFT VOICE TO SON TO NOTIFY.[facility] [employer]NER NATALY WALKER,AUTOMATION TECH FOR DR. LORENZANA REGARDING PATIENT PASSING.LEFT VOICEMAIL TO SON, AWAITING FOR REPLY.[facility] [employer] NOTIFIED WITH CASE #CC [id number].POST MORTEM CARE PROVIDED.
--- NOTE | 2019-08-02 06:40 | NUR ---
SPOKE W/ SON OVER THE PHONE AND INFORMED OF PT'S DEMISE.[place] IS OUT OF TOWN TILL MONDAY.PT WILL BE BROUGHT TO [facility].
--- NOTE | 2019-08-02 06:45 | NUR ---
PATIENT KENIA ELIAS NOTIFIED BY ICU CHARGE NURSE SLOAN HWANG THAT PATIENT .[place] OUT OF TOWN AND WILL BE BACK ON MONDAY.BODY WILL BE TRANSFER TO [facility].
[2019-08-02 07:29] VITALS: BP 0/0
--- NOTE | 2019-08-02 08:15 | NUR ---
Resident's body taken to hospital's morgue. Patient's identification attached.
--- NOTE | 2019-08-02 14:21 | NUR ---
Family Support: Chart Collector called the resident's son, Dr. Johns [phone] to provide support and offer referrals & resources as the resident today. However, call went to voicemail and SW stated above mentioned information and communicated that SW is available as needed. Per EMR, Dr. Johns is out of town and will be back on Monday08/06/19. SW to follow up.
--- NOTE | 2019-08-07 12:29 | NUR ---
Family Support Follow up: Cardiothoracic Surgeon called the resident's son, Dr. Johns [phone] to provide support and offer Grief Support resources or list of Mortuaries and Homes in the area. The call went to voicemail and SW stated above mentioned information. SW will be available as needed.
== END 2019-08-02 08:15 | disposition expired | DRG 207 ==
LOC: SA 08-29 20:46
PROVIDERS: ADMIT Internal Medicine; ATTEND Internal Medicine
PROC: 5A1955Z Respiratory Ventilation, Greater than 96 Consecutive Hours (ICD-10-PCS; principal; 2018-09-02)
PROC: 05HB33Z Insertion of Infusion Device into Right Basilic Vein, Percutaneous Approach (ICD-10-PCS; 2018-09-29)
DX: J96.21 Acute and chronic respiratory failure with hypoxia (principal); E43 Unspecified severe protein-calorie malnutrition; J69.0 Pneumonitis due to inhalation of food and vomit; N18.6 End stage renal disease; G93.40 Encephalopathy, unspecified; D68.59 Other primary thrombophilia; E87.0 Hyperosmolality and hypernatremia; G93.1 Anoxic brain damage, not elsewhere classified; I13.2 Hypertensive heart and chronic kidney disease with heart failure and with stage 5 chronic kidney disease, or end stage renal disease; J98.11 Atelectasis; K92.2 Gastrointestinal hemorrhage, unspecified; B37.0 Candidal stomatitis; L12.0 Bullous pemphigoid; N39.0 Urinary tract infection, site not specified; T82.838A Hemorrhage due to vascular prosthetic devices, implants and grafts, initial encounter; I12.0 Hypertensive chronic kidney disease with stage 5 chronic kidney disease or end stage renal disease; J90 Pleural effusion, not elsewhere classified; K94.23 Gastrostomy malfunction; T82.42XA Displacement of vascular dialysis catheter, initial encounter; B96.20 Unspecified Escherichia coli [E. coli] as the cause of diseases classified elsewhere; E11.43 Type 2 diabetes mellitus with diabetic autonomic (poly)neuropathy; I50.9 Heart failure, unspecified; E11.22 Type 2 diabetes mellitus with diabetic chronic kidney disease; E78.5 Hyperlipidemia, unspecified; D50.9 Iron deficiency anemia, unspecified; D63.8 Anemia in other chronic diseases classified elsewhere; D69.6 Thrombocytopenia, unspecified; E11.42 Type 2 diabetes mellitus with diabetic polyneuropathy; E66.01 Morbid (severe) obesity due to excess calories; E87.6 Hypokalemia; F03.90 Unspecified dementia, unspecified severity, without behavioral disturbance, psychotic disturbance, mood disturbance, and anxiety; F09 Unspecified mental disorder due to known physiological condition; G40.909 Epilepsy, unspecified, not intractable, without status epilepticus; H40.9 Unspecified glaucoma; I25.10 Atherosclerotic heart disease of native coronary artery without angina pectoris; K21.9 Gastro-esophageal reflux disease without esophagitis; L03.031 Cellulitis of right toe; L30.4 Erythema intertrigo; L60.0 Ingrowing nail; L60.3 Nail dystrophy; N40.0 Benign prostatic hyperplasia without lower urinary tract symptoms; R13.10 Dysphagia, unspecified; Z74.01 Bed confinement status; Z78.9 Other specified health status; Z86.73 Personal history of transient ischemic attack (TIA), and cerebral infarction without residual deficits; Z87.440 Personal history of urinary (tract) infections; Z87.891 Personal history of nicotine dependence; Z95.0 Presence of cardiac pacemaker; B95.62 Methicillin resistant Staphylococcus aureus infection as the cause of diseases classified elsewhere; D63.1 Anemia in chronic kidney disease; E11.65 Type 2 diabetes mellitus with hyperglycemia; K31.84 Gastroparesis; S30.820A Blister (nonthermal) of lower back and pelvis, initial encounter; Z66 Do not resuscitate; Z79.52 Long term (current) use of systemic steroids; Z79.4 Long term (current) use of insulin; Z79.51 Long term (current) use of inhaled steroids; B96.4 Proteus (mirabilis) (morganii) as the cause of diseases classified elsewhere; Z98.890 Other specified postprocedural states; M85.9 Disorder of bone density and structure, unspecified; Y95 Nosocomial condition; M62.472 Contracture of muscle, left ankle and foot; M62.471 Contracture of muscle, right ankle and foot; S31.30XA Unspecified open wound of scrotum and testes, initial encounter; X58.XXXA Exposure to other specified factors, initial encounter; Y92.9 Unspecified place or not applicable; N48.89 Other specified disorders of penis; Y83.3 Surgical operation with formation of external stoma as the cause of abnormal reaction of the patient, or of later complication, without mention of misadventure at the time of the procedure; Y82.9 Unspecified medical devices associated with adverse incidents; Y92.099 Unspecified place in other non-institutional residence as the place of occurrence of the external cause
CPT/HCPCS: 31720; 36415; 36569; 36600; 71045-TC; 73620-TC; 74018; 80048-TC; 80053-TC; 80076-TC; 80202-TC; 81000-TC; 82272-TC; 82728-TC; 82803-TC; 82962-TC; 83540-TC; 83735-TC; 83880; 84100-TC; 84443-TC; 85025-TC; 85610-TC; 85652-TC; 85730-TC; 87040-TC; 87070-TC; 87081-TC; 87086-TC; 87186-TC; 88305-TC; 88312-TC; 88313-TC; 88342; 94002; 94003-TC; 94640-TC; 94760-TC; 94761-TC; 94762-TC; 94799-TC; 97112-TC; 97530-TC; 99082-TC; A4216; A4623; A6248; A6253; A7526; C9113; G0008; J0692; J0713; J1815; J3370; J3490; J7042; J7060; J7070; J8597; Q2036; Q9963

== ENCOUNTER 2018-10-11 11:51 | Inpatient (IN) | payer MEDICARE, OTHER ==
[~2018-10-11] VITALS: Ht 185.4 cm; Wt 96.2 kg
[~2018-10-11 11:51] MED LIST changes: -BISA10SU11 RC; +BISA10SU8 RC
--- NOTE | 2018-10-11 15:15 | NUR ---
RN NOTES RECEIVED PATIENT FROM [facility] VIA HOSPITAL BED ACCOMPANIED BY 2 NURSES AND RT. ON VENTILATOR WITH SETTINGS PRESCRIBED, BREATHING UNLABORED, SATING 100%, VITAL SIGNS TAKEN AND NOTED FOLLOWS BP AT 123/69. HR AT 73, TEMP AT 97.8, RR AT 18. IV ON THE ANSHU: MIDLINE- IN PLACE AND PATENT, FLUSHES WELL, WITH ONGOING IVF STARTED AT [facility]. SKIN ASSESSMENT DONE- SKIN ISSUES NOTED, PICTURES FILED. NO BELONGINGS BROUGHT IN TO THE UNIT. PATIENT CLEANED AND MADE COMFORTABLE AND WARMTH. AWAITING MD ADMISSION ORDERS. WILL MONITOR PATIENT CLOSELY.
--- NOTE | 2018-10-11 15:25 | NUR ---
RT Pt received with a Rewalonley 6 trach on the vent with noted settings. Pt is awake but does not follow commands. Vent alarms are set and audible with BVM by bedside. MANAGER OF BUSINESS OPERATIONS cuff pressure noted. Vent is plugged into red outlet. Sx'd moderate frothy pink tinged secretions. No respiratory distress noted at this time. Addendum: 10/11/18 at 1735 by MARCELO KENNEDY RT Amended: Links added.
[2018-10-11 16:00] VITALS: BP 123/69
[2018-10-11] MEDS ORDERED: NITROGLYCERIN PACKET 1 GM PACKET TD PRN (16:00)
[2018-10-11] MEDS ORDERED: HYDROCODONE/APAP 5/325MG 1 EACH TABLET PO PRN (16:00)
[2018-10-11] MEDS ORDERED: ACETAMINOPHEN 325 MG TABLET PO PRN (16:00)
[2018-10-11] MEDS ORDERED: hydrALAZINE HCL 25 MG TABLET GT PRN (16:00)
[2018-10-11] MEDS ORDERED: MAG HYDROX/AL HYDROX/SIMETH 30 ML UDC PO PRN (16:00)
[2018-10-11] MEDS ORDERED: ONDANSETRON HCL/PF 4 MG/2 ML VIAL IVP PRN (16:00)
[2018-10-11] MEDS ORDERED: ACETAMINOPHEN 650 MG/20.3 ML UDC GT PRN (16:00)
[2018-10-11] MEDS ORDERED: MAGNESIUM HYDROXIDE 30 ML UDC PO PRN (16:00)
[2018-10-11] MEDS ORDERED: NEPRO VAN 237 ML CAN GT SCH (16:00)
[2018-10-11] MEDS ORDERED: INSULIN REGULAR, HUMAN 100 UNIT/ML 3 ML VIAL SQ PRN (16:00)
[2018-10-11] MEDS ORDERED: LORAZEPAM INJ 2 MG/ML VIAL IM PRN (16:00)
[2018-10-11] MEDS ORDERED: Z GUARD REMEDY 2 OZ OINT TP PRN (16:00)
[2018-10-11] MEDS ORDERED: IPRATROPIUM NEB FS 0.5 MG/2.5 ML AMPUL.NEB IH PRN (16:00)
[2018-10-11] MEDS ORDERED: ZOLPIDEM TARTRATE 5 MG TABLET PO PRN (16:00)
[2018-10-11] MEDS ORDERED: DEXTROSE 50%-WATER 50 ML DISP.SYRIN IV PRN ×2 (16:00→18:30)
[2018-10-11] MEDS ORDERED: BISACODYL SUPP (10 MG) 10 MG/SUPP.RECT SUPP.RECT RC PRN (16:00)
[2018-10-11 16:10] LABS: CALCIUM, SERUM 7.3 mg/dL (8.5-10.1); CARBON DIOXIDE 27 mmol/L (21-32); CHLORIDE 99 mmol/L (98-107); CREATININE 2.6 mg/dL (0.6-1.3); PHOSPHORUS 1.7 mg/dL (2.5-4.9); POTASSIUM 3.2 mmol/L (3.5-5.1); SODIUM SERUM 134 mmol/L (136-145)
[2018-10-11 16:14] LABS: BASOPHILS % (AUTO) 0.4 % (0.0-2.0); EOSINOPHILS % (AUTO) 5.5 % (0.0-6.0); HEMATOCRIT 22 % (39-51); LYMPHOCYTES # (AUTO) 0.9 /CMM (0.8-4.8); LYMPHOCYTES % (AUTO) 16.3 % (20.0-44.0); MEAN CORPUSCULAR HGB CONC 32 g/dl (31.0-36.0); MEAN CORPUSCULAR VOLUME 91 fL (80-96); MONOCYTES # (AUTO) 0.5 /CMM (0.1-1.30); MONOCYTES % (AUTO) 8.5 % (2.0-12.0); NEUTROPHILS # (AUTO) 3.7 /CMM (1.8-8.9); NEUTROPHILS % (AUTO) 69.3 % (43.0-81.0); PLATELET COUNT (AUTO) 85 /CMM (150-450); RED BLOOD CELL COUNT(AUTO) 2.37 MIL/uL (4.5-6.0); WHITE BLOOD COUNT (AUTO) 5.4 K/uL (4.3-11.0)
[2018-10-11 16:19] LABS: GLUCOSE 564 mg/dL (74-106)
[2018-10-11 16:20] LABS: UREA NITROGEN, BLOOD 100 mg/dL (7-18)
[2018-10-11 16:28] LABS: HEMOGLOBIN 6.8 g/dL (13.5-17.5)
[2018-10-11 16:40] LABS: BAND % (MANUAL) 4 % (0.0-5.0); EOSINOPHILS % (MANUAL) 4 % (0-4); LYMPHOCYTES % (MANUAL) 12 % (16-48); MONOCYTES % (MANUAL) 2 % (0-11.0); NEUTROPHILS % (MANUAL) 78 (42-76)
--- NOTE | 2018-10-11 17:00 | NUR ---
RN NOTES RECEIVED CRITICAL VALUE FOR GLUCOSE AT 484- PATIENT RUNNING D5 ON THE MIDLINE WHERE BLOOD WAS EXTRACTED AND INFORMED TECH THAT POC WILL BE DONE. HGB AT 6.[address] CANTOR AND ORDERED H AND H AT 10 PM. ORDER NOTED AND CARRIED OUT
[2018-10-11] MEDS: DORZOLAMIDE OPTH 2% 10 ML BOTTLE EACHEYE SCH (18:00)
[2018-10-11] MEDS: FUROSEMIDE 40 MG/4 ML VIAL IV SCH (18:01)
[2018-10-11] MEDS: SIMETHICONE 80 MG TAB.CHEW GT SCH ×2 (18:01→23:30)
[2018-10-11] MEDS: BLOOD SUGAR DIAGNOSTIC 1 EACH STRIP IN SCH ×2 (18:14→23:38)
[2018-10-11] MEDS: NEPRO 1,000 ML BOTTLE GT PRN (18:24)
[2018-10-11] MEDS: INSULIN REGULAR, HUMAN 100 UNIT/ML 3 ML VIAL SQ PRN ×2 (18:40→23:39)
--- NOTE | 2018-10-11 19:10 | NUR ---
TELE/RN INITIAL NOTES RECEIVED PT IN BED. OBTUNDED. WITH INTACT TRACH. TOLERATING CURRENT VENT SETTINGS WELL. NO RESPIRATORY DISTRESS NOTED. NOTED PT WITH GENERALIZED EDEMA. SR HR 60S ON TELE. IN NO SIGNS OF PAIN. GTUBE INTACT AND IN PLACED, WITH ONGOING GTF NEPRO AT 50ML/HR, TOLERATING WELL. ANSHU MIDLINE INTACT AND PATENT. FC INTACT AND IN PLACED, DRAINING BY GRAVITY YELLOW COLOR URINE. SAFETY MEASURES AND ASPIRATION PRECAUTION IN PLACED. PT'S HGB=6.8, PER AM RN MD SILVA AWARE WITH REPEAT H/H AT 2200. NO OVERT SIGNS OF BLEEDING NOTED. WILL CONT TO MONITOR
[2018-10-11] MEDS ORDERED: ALBUTEROL FS 2.5 MG/0.5 ML VIAL.NEB NEB PRN (19:30)
[2018-10-11 19:47] VITALS: BP 123/69
--- NOTE | 2018-10-11 19:57 | NUR ---
RN NOTES ENDORSED PATIENT FOR CONTINUITY OF CARE. NO ACUTE CHANGES NOTED. ALL NURSING NEEDS ATTENDED. SAFETY MEASURES IN PLACE.
[2018-10-11 20:00] VITALS: BP_SYST 127; BP_SYST 128; BP_DIAS 61; BP_DIAS 67
[2018-10-11] MEDS: LACOSAMIDE ORAL SOLN 50 MG/5 ML UDC GT SCH (21:00)
[2018-10-11] MEDS: LATANOPROST EYE DROP 0.005% 2.5 ML BOTTLE OP SCH (21:40)
[2018-10-11] MEDS: PANTOPRAZOLE 40 MG/PACK PACK GT SCH (21:40)
[2018-10-11] MEDS: ATORVASTATIN 40 MG TABLET GT SCH (21:40)
[2018-10-11] MEDS: CHLORHEXIDINE GLUCONATE 15 ML UDC MM SCH (21:42)
[2018-10-11] MEDS: CARVEDILOL 6.25 MG TABLET GT SCH (21:42)
[2018-10-11] MEDS: PROSOURCE / PROSTAT (PYXIS) 30 ML UDC GT SCH (21:42)
[2018-10-11] MEDS: METOCLOPRAMIDE HCL 10 MG/10 ML UDC GT SCH (21:42)
[2018-10-11] MEDS: TAMSULOSIN 0.4 MG CAP.SR.24H GT SCH (21:43)
[2018-10-11] MEDS: Z GUARD REMEDY 2 OZ OINT TP SCH (21:45)
[2018-10-11 22:45] LABS: HEMOGLOBIN 7.6 g/dL (13.5-17.5)
[2018-10-12] VITALS: BP 127/61
[2018-10-12] MEDS ORDERED: BLOOD SUGAR DIAGNOSTIC 1 EACH STRIP IN SCH
[2018-10-12 04:00] VITALS: BP 133/65
[2018-10-12] MEDS: SIMETHICONE 80 MG TAB.CHEW GT SCH ×4 (05:16→23:56)
[2018-10-12] MEDS: METOCLOPRAMIDE HCL 10 MG/10 ML UDC GT SCH ×3 (05:17→21:52)
[2018-10-12] MEDS: PROSOURCE / PROSTAT (PYXIS) 30 ML UDC GT SCH ×3 (05:17→21:51)
[2018-10-12] MEDS: BLOOD SUGAR DIAGNOSTIC 1 EACH STRIP IN SCH ×4 (05:27→23:55)
[2018-10-12] MEDS: INSULIN REGULAR, HUMAN 100 UNIT/ML 3 ML VIAL SQ PRN ×3 (05:28→23:57)
[2018-10-12 06:19] LABS: BASOPHILS % (AUTO) 0.2 % (0.0-2.0); EOSINOPHILS % (AUTO) 5.1 % (0.0-6.0); HEMATOCRIT 24 % (39-51); HEMOGLOBIN 7.8 g/dL (13.5-17.5); LYMPHOCYTES % (AUTO) 15.9 % (20.0-44.0); MEAN CORPUSCULAR HGB CONC 32 g/dl (31.0-36.0); MEAN CORPUSCULAR VOLUME 88 fL (80-96); MONOCYTES # (AUTO) 0.5 /CMM (0.1-1.30); MONOCYTES % (AUTO) 8.6 % (2.0-12.0); NEUTROPHILS # (AUTO) 4.2 /CMM (1.8-8.9); NEUTROPHILS % (AUTO) 70.2 % (43.0-81.0); PLATELET COUNT (AUTO) 103 /CMM (150-450); RED BLOOD CELL COUNT(AUTO) 2.73 MIL/uL (4.5-6.0); WHITE BLOOD COUNT (AUTO) 6.1 K/uL (4.3-11.0)
--- NOTE | 2018-10-12 06:44 | NUR ---
RN NOTES PT IN STABLE CONDITION. NO ACUTE CHANGES THROUGHOUT SHIFT. NO OVERT S/SX OF BLEEDING NOTED. SAFETY MEASURES AND ASPIRATION PRECAUTION OBSERVED AT ALL TIMES. PT IS FOR US GUIDED PARACENTESIS TODAY. ALL NEEDS ANTICIPATED. ENDORSED TO AM SHIFT RN FOR ERNST
[2018-10-12 06:57] LABS: CALCIUM, SERUM 8.1 mg/dL (8.5-10.1); CARBON DIOXIDE 27 mmol/L (21-32); CHLORIDE 108 mmol/L (98-107); CREATININE 2.7 mg/dL (0.6-1.3); GLUCOSE 219 mg/dL (74-106); MAGNESIUM 2.1 mg/dL (1.8-2.4); POTASSIUM 3.5 mmol/L (3.5-5.1); SODIUM SERUM 145 mmol/L (136-145)
[2018-10-12 07:03] LABS: CHOLESTEROL 68 mg/dL (<200); HDL CHOLESTEROL 26 mg/dL (40-60); LDL 28 mg/dL (0-99); TRIGLYCERIDES 56 mg/dL (30-150)
[2018-10-12 07:05] LABS: UREA NITROGEN, BLOOD 108 mg/dL (7-18)
--- NOTE | 2018-10-12 07:30 | NUR ---
RN NOTE RECEIVED PATIENT IN BED OBTUNDED BREATHING VIA TRACH TO VENT SETTING AT AC12 TV 500 PEEP5 FI02 40% TELE SR NO ACUTE DISTRESS NOTED PT IS SUCTIONED THICK MUCUS FROM MOUTH G TUBE FEEDING IN PROGRESS , VÁSQUEZ CATH TO GRAVITY DRAINING JULIEN URINE , PT HAS GENERALIZED EDEMA , HOB IS UP 30% SRX2 UP WILL CONTINUE WITH CARE
[2018-10-12 08:00] VITALS: BP 116/62
[2018-10-12] MEDS: LACOSAMIDE ORAL SOLN 50 MG/5 ML UDC GT SCH ×2 (09:00→21:51)
[2018-10-12] MEDS: ASCORBIC ACID 500 MG TABLET GT SCH (09:38)
[2018-10-12] MEDS: ACIDOPHILUS/BULGARICUS 1 EACH TAB.CHEW GT SCH (09:38)
[2018-10-12] MEDS: LINAGLIPTIN 5 MG TABLET GT SCH (09:38)
[2018-10-12] MEDS: PANTOPRAZOLE 40 MG/PACK PACK GT SCH ×2 (09:38→21:52)
[2018-10-12] MEDS: FINASTERIDE (5 MG) 5 MG TABLET GT SCH (09:38)
[2018-10-12] MEDS: MULTIVIT W/MINERALS 1 TAB TABLET GT SCH (09:39)
[2018-10-12] MEDS: CHLORHEXIDINE GLUCONATE 15 ML UDC MM SCH ×2 (09:40→21:52)
[2018-10-12] MEDS: FUROSEMIDE 40 MG/4 ML VIAL IV SCH ×2 (09:40→17:59)
[2018-10-12] MEDS: CARVEDILOL 6.25 MG TABLET GT SCH ×2 (09:40→21:51)
[2018-10-12] MEDS: DORZOLAMIDE OPTH 2% 10 ML BOTTLE EACHEYE SCH ×3 (09:47→17:59)
[2018-10-12] MEDS: Z GUARD REMEDY 2 OZ OINT TP SCH ×2 (09:48→21:53)
[2018-10-12] MEDS: VITAMINS A AND D 56.7 GM TUBE TP SCH (09:49)
--- NOTE | 2018-10-12 10:38 | NUR ---
VIMPAT MEDICATION NOT AVAIABLE CALLED FOR PHARMACY TO REPORT MEDICATION NOT GIVEN
[2018-10-12 12:00] VITALS: BP 129/64
--- NOTE | 2018-10-12 14:23 | NUR ---
RT Pt received with a Shiley 6 trach on the vent with noted settings. Pt is awake but does not follow commands. Vent alarms are set and audible with BVM by bedside. BUILDING STONECUTTER cuff pressure noted. Vent is plugged into red outlet. Sx'd moderate frothy pink tinged secretions. No respiratory distress noted at this time.
[2018-10-12 16:00] VITALS: BP 142/73
--- NOTE | 2018-10-12 16:19 | NUR ---
RN NOTE LEFT UPPER CHEST CLINT CATHETER PLACEMENT DONE BY DR MATHIAS AT BED SIDE PT C/O NO DISTRESS AFTER PROCEDURE , PT IS FOR DIALYSIS TODAY
--- NOTE | 2018-10-12 19:45 | NUR ---
PEOPLE MANAGER NOTE: RECEIVED PT ON BED WITH NO ACUTE DISTRESS NOTED. SON AT BEDSIDE. ONGOING HD AT THIS TIME. ON [facility] VENT, SETTINGS ORDERED. SATURATING WELL. NO FACIAL GRIMACING OR ANY SIGNS OF PAIN NOTED. RIGHT UPPER ARM MIDLINE INTACT AND PATENT, FLUSHING WELL. SINUS RHYTHM ON TELE MONITOR HR 63BPM. KEPT CLEAN, DRY AND COMFORTABLE. SAFETY AND FALL PRECAUTIONS OBSERVED AND MAINTAINED. WILL CONTINUE TO MONITOR PT.
[2018-10-12 20:00] VITALS: BP 114/60
--- NOTE | 2018-10-12 20:21 | NUR ---
RT Pt rec'd trached on the vent with noted settings. Pt is awake but does not follow commands. Vent alarms are set and audible with BVM by bedside. AIR ANALYSIS ENGINEERING TECHNICIAN cuff pressure noted. Vent is plugged into red outlet. Sx'd moderate frothy pink tinged secretions. No respiratory distress noted at this time. will continue to monitor. Addendum: 10/12/18 at 2021 by RAYRAY KRUEGER RT Amended: Links added.
[2018-10-12] MEDS: ATORVASTATIN 40 MG TABLET GT SCH (21:51)
[2018-10-12] MEDS: TAMSULOSIN 0.4 MG CAP.SR.24H GT SCH (21:51)
[2018-10-12] MEDS: LATANOPROST EYE DROP 0.005% 2.5 ML BOTTLE OP SCH (21:53)
[2018-10-13] VITALS (7 sets, daily range): BP systolic 109–141; BP diastolic 57–77
[2018-10-13] MEDS: PROSOURCE / PROSTAT (PYXIS) 30 ML UDC GT SCH ×3 (05:20→21:47)
[2018-10-13] MEDS: METOCLOPRAMIDE HCL 10 MG/10 ML UDC GT SCH ×3 (05:20→21:42)
[2018-10-13] MEDS: SIMETHICONE 80 MG TAB.CHEW GT SCH ×3 (05:20→17:34)
[2018-10-13] MEDS: BLOOD SUGAR DIAGNOSTIC 1 EACH STRIP IN SCH ×3 (05:30→17:31)
[2018-10-13] MEDS: INSULIN REGULAR, HUMAN 100 UNIT/ML 3 ML VIAL SQ PRN ×3 (05:32→17:39)
[2018-10-13 06:27] LABS: CALCIUM, SERUM 8.4 mg/dL (8.5-10.1); CARBON DIOXIDE 28 mmol/L (21-32); CHLORIDE 104 mmol/L (98-107); CREATININE 2.2 mg/dL (0.6-1.3); GLUCOSE 163 mg/dL (74-106); POTASSIUM 3.1 mmol/L (3.5-5.1); SODIUM SERUM 141 mmol/L (136-145)
[2018-10-13 06:33] LABS: UREA NITROGEN, BLOOD 84 mg/dL (7-18)
[2018-10-13 06:38] LABS: BASOPHILS % (AUTO) 0.3 % (0.0-2.0); EOSINOPHILS % (AUTO) 3.9 % (0.0-6.0); HEMATOCRIT 25 % (39-51); LYMPHOCYTES % (AUTO) 15.7 % (20.0-44.0); MEAN CORPUSCULAR HGB CONC 32 g/dl (31.0-36.0); MEAN CORPUSCULAR VOLUME 89 fL (80-96); MONOCYTES # (AUTO) 0.5 /CMM (0.1-1.30); MONOCYTES % (AUTO) 8.1 % (2.0-12.0); NEUTROPHILS # (AUTO) 4.8 /CMM (1.8-8.9); PLATELET COUNT (AUTO) 94 /CMM (150-450); RED BLOOD CELL COUNT(AUTO) 2.78 MIL/uL (4.5-6.0); WHITE BLOOD COUNT (AUTO) 6.7 K/uL (4.3-11.0)
--- NOTE | 2018-10-13 06:56 | NUR ---
HUMID SYSTEM OPERATOR NOTE: NO CHANGES NOTED THROUGHOUT THE SHIFT. NO APPARENT DISTRESS NOTED. NO FACIAL GRIMACING OR ANY SIGNS OF PAIN NOTED. SINUS RHYTHM ON TELE MONITOR HR 60BPM. GT INTACT AND PATENT, ABLE TO TOLERATE FEEDING WELL. VÁSQUEZ CATH INTACT, DRAINED 200ML OF URINE OUTPUT. KEPT CLEAN, DRY AND COMFORTABLE. SAFETY AND FALL PRECAUTIONS OBSERVED AND MAINTAINED. WILL ENDORSE TO DAY SHIFT RN FOR CONTINUITY OF CARE.
--- NOTE | 2018-10-13 07:45 | NUR ---
INTEGRATED MARKETING MANAGER OPENING NOTES RECEIVED BEDSIDE REPORT FROM [facility]. PATIENT A/O X0 OBTUNDED ON VENT TOLERATING SETTINGS . SINUS ROCCO/TACHT ON MONITOR. CONT GTF RUNNING NEPRO @ 50 ML/HR TOLERATING WELL WITH NO RESIDUAL NOTED. ANSHU MIDLINE SALINE LOCKED. HD CATH RCW 10/12. SAFETY PRECAUTIONS IN PLACE BED IN LOW POSITION. WILL CONT TO MONITOR.
[2018-10-13 08:07] LABS: BAND % (MANUAL) 11 % (0.0-5.0); EOSINOPHILS % (MANUAL) 4 % (0-4); LYMPHOCYTES % (MANUAL) 16 % (16-48); MONOCYTES % (MANUAL) 6 % (0-11.0); NEUTROPHILS % (MANUAL) 63 (42-76)
[2018-10-13] MEDS: DORZOLAMIDE OPTH 2% 10 ML BOTTLE EACHEYE SCH ×3 (08:31→17:34)
[2018-10-13] MEDS: ACIDOPHILUS/BULGARICUS 1 EACH TAB.CHEW GT SCH (08:31)
[2018-10-13] MEDS: LINAGLIPTIN 5 MG TABLET GT SCH (08:31)
[2018-10-13] MEDS: CARVEDILOL 6.25 MG TABLET GT SCH ×2 (08:32→21:43)
[2018-10-13] MEDS: FUROSEMIDE 40 MG/4 ML VIAL IV SCH ×2 (08:32→17:35)
[2018-10-13] MEDS: LACOSAMIDE ORAL SOLN 50 MG/5 ML UDC GT SCH ×2 (08:32→21:42)
[2018-10-13] MEDS: CHLORHEXIDINE GLUCONATE 15 ML UDC MM SCH ×2 (08:32→21:42)
[2018-10-13] MEDS: FINASTERIDE (5 MG) 5 MG TABLET GT SCH (08:32)
[2018-10-13] MEDS: PANTOPRAZOLE 40 MG/PACK PACK GT SCH ×2 (08:32→21:42)
[2018-10-13] MEDS: ASCORBIC ACID 500 MG TABLET GT SCH (08:32)
[2018-10-13] MEDS: MULTIVIT W/MINERALS 1 TAB TABLET GT SCH (08:32)
[2018-10-13] MEDS: Z GUARD REMEDY 2 OZ OINT TP SCH ×2 (08:33→21:48)
[2018-10-13] MEDS: VITAMINS A AND D 56.7 GM TUBE TP SCH (08:33)
[2018-10-13] MEDS ORDERED: POTASSIUM CHLORIDE 20 MEQ POWDER PACKET GT SCH ×2 (10:30→13:00)
--- NOTE | 2018-10-13 16:15 | NUR ---
G TAKEN AND CRITICAL RESULTS AND RECOMMENDATION GIVEN TO BRIGHT KULKARNI. NO CHANGES MADE PER MD REQUEST. WILL CONTINUE TO MONITOR
--- NOTE | 2018-10-13 18:00 | NUR ---
RACK ROOM WORKER NOTES ID MARGARITA TO ASSESS PATIENT BLISTERS ON (L) BUTTOCKS AND INNER THIGH. CONFIRMED NOT SHINGLES ISOLATION REMOVED
--- NOTE | 2018-10-13 19:22 | NUR ---
NETWORK SECURITY ENGINEER CLOSING NOTES PATIENT A/O X0 OBTUNDED ON VENT TOLERATING SETTINGS . SINUS ROCCO/TACHY ON MONITOR. CONT GTF RUNNING NEPRO @ 50 ML/HR TOLERATING WELL WITH NO RESIDUAL NOTED.FEEDING OFF @ 1900 PER ORDER .DIALYZED TODAY 3LTRS OUT. ANSHU MIDLINE SALINE LOCKED. HD CATH RCW 10/12. SAFETY PRECAUTIONS IN PLACE BED IN LOW POSITION. WILL ENDORSE TO NOC
--- NOTE | 2018-10-13 20:00 | NUR ---
BUTANE COMPRESSOR OPERATOR NOTES: RECEIVED PT IN BED. OBTUNDED AND NON VERBAL. WITH INTACT TRACH. TOLERATING CURRENT VENT SETTINGS WELL. NO RESPIRATORY DISTRESS NOTED. NO FACIAL GRIMACES OR MOANING NOTES. NOTED PT WITH GENERALIZED EDEMA. ON TELE MONITOR W/ SR . NO SIGNS OF PAIN. GTUBE INTACT AND IN PLACED, WITH ONGOING GTF NEPRO AT 50ML/HR, TOLERATING WELL. ANSHU MIDLINE INTACT AND PATENT. FC INTACT AND IN PLACED, DRAINING BY GRAVITY YELLOW COLOR URINE. SAFETY MEASURES AND ASPIRATION PRECAUTION IN PLACED. INCONTINENT OF B/B. WILL CONTINUE TO MONITOR. CALL LIGHT W/ REACH.
[2018-10-13] MEDS: ATORVASTATIN 40 MG TABLET GT SCH (21:51)
[2018-10-13] MEDS: TAMSULOSIN 0.4 MG CAP.SR.24H GT SCH (21:51)
[2018-10-13] MEDS: LATANOPROST EYE DROP 0.005% 2.5 ML BOTTLE OP SCH (21:58)
[2018-10-14] VITALS: BP 124/61
[2018-10-14] MEDS: BLOOD SUGAR DIAGNOSTIC 1 EACH STRIP IN SCH ×5 (00:40→23:59)
[2018-10-14] MEDS: SIMETHICONE 80 MG TAB.CHEW GT SCH ×4 (00:51→17:04)
[2018-10-14] MEDS: INSULIN REGULAR, HUMAN 100 UNIT/ML 3 ML VIAL SQ PRN ×4 (00:53→18:34)
[2018-10-14 04:00] VITALS: BP 115/68
[2018-10-14] MEDS: PROSOURCE / PROSTAT (PYXIS) 30 ML UDC GT SCH ×3 (05:24→21:14)
[2018-10-14] MEDS: METOCLOPRAMIDE HCL 10 MG/10 ML UDC GT SCH ×3 (05:25→21:12)
[2018-10-14] MEDS: NEPRO 1,000 ML BOTTLE GT PRN (05:31)
[2018-10-14 06:28] LABS: BASOPHILS % (AUTO) 0.2 % (0.0-2.0); EOSINOPHILS % (AUTO) 4.6 % (0.0-6.0); HEMATOCRIT 23 % (39-51); HEMOGLOBIN 7.5 g/dL (13.5-17.5); LYMPHOCYTES # (AUTO) 0.9 /CMM (0.8-4.8); LYMPHOCYTES % (AUTO) 14.3 % (20.0-44.0); MEAN CORPUSCULAR HGB CONC 32 g/dl (31.0-36.0); MEAN CORPUSCULAR VOLUME 89 fL (80-96); MONOCYTES # (AUTO) 0.6 /CMM (0.1-1.30); MONOCYTES % (AUTO) 8.8 % (2.0-12.0); NEUTROPHILS # (AUTO) 4.7 /CMM (1.8-8.9); NEUTROPHILS % (AUTO) 72.1 % (43.0-81.0); PLATELET COUNT (AUTO) 83 /CMM (150-450); WHITE BLOOD COUNT (AUTO) 6.5 K/uL (4.3-11.0)
[2018-10-14 06:39] LABS: CALCIUM, SERUM 8.5 mg/dL (8.5-10.1); CARBON DIOXIDE 29 mmol/L (21-32); CHLORIDE 104 mmol/L (98-107); CREATININE 2.1 mg/dL (0.6-1.3); GLUCOSE 206 mg/dL (74-106); POTASSIUM 3.7 mmol/L (3.5-5.1); SODIUM SERUM 142 mmol/L (136-145); UREA NITROGEN, BLOOD 71 mg/dL (7-18)
--- NOTE | 2018-10-14 07:34 | NUR ---
RN/TELE NOTES: REPORT GIVEN TO NEXT SHIFT NURSE FOR ERNST.
[2018-10-14 08:00] VITALS: BP 120/64
[2018-10-14] MEDS: LACOSAMIDE 50 MG TABLET GT SCH ×2 (08:43→21:12)
[2018-10-14] MEDS: LINAGLIPTIN 5 MG TABLET GT SCH (08:43)
[2018-10-14] MEDS: MULTIVIT W/MINERALS 1 TAB TABLET GT SCH (08:43)
[2018-10-14] MEDS: FUROSEMIDE 40 MG/4 ML VIAL IV SCH ×2 (08:43→17:02)
[2018-10-14] MEDS: CHLORHEXIDINE GLUCONATE 15 ML UDC MM SCH ×2 (08:43→21:11)
[2018-10-14] MEDS: ASCORBIC ACID 500 MG TABLET GT SCH (08:43)
[2018-10-14] MEDS: FINASTERIDE (5 MG) 5 MG TABLET GT SCH (08:43)
[2018-10-14] MEDS: ACIDOPHILUS/BULGARICUS 1 EACH TAB.CHEW GT SCH (08:44)
[2018-10-14] MEDS: PANTOPRAZOLE 40 MG/PACK PACK GT SCH ×2 (08:44→21:12)
[2018-10-14] MEDS: VITAMINS A AND D 56.7 GM TUBE TP SCH (08:47)
[2018-10-14] MEDS: CARVEDILOL 6.25 MG TABLET GT SCH ×2 (08:48→21:11)
[2018-10-14] MEDS: Z GUARD REMEDY 2 OZ OINT TP SCH ×2 (08:48→21:13)
[2018-10-14 09:51] LABS: BAND % (MANUAL) 10 % (0.0-5.0); EOSINOPHILS % (MANUAL) 2 % (0-4); LYMPHOCYTES % (MANUAL) 11 % (16-48); MONOCYTES % (MANUAL) 4 % (0-11.0); MYELOCYTES % 1 % (0-0); NEUTROPHILS % (MANUAL) 72 (42-76)
[2018-10-14] MEDS: DORZOLAMIDE OPTH 2% 10 ML BOTTLE EACHEYE SCH ×3 (11:20→17:02)
[2018-10-14 12:00] VITALS: BP 114/70
[2018-10-14 16:00] VITALS: BP 127/73
[2018-10-14 20:00] VITALS: BP 132/67
[2018-10-14] MEDS: ATORVASTATIN 40 MG TABLET GT SCH (21:12)
[2018-10-14] MEDS: TAMSULOSIN 0.4 MG CAP.SR.24H GT SCH (21:12)
[2018-10-14] MEDS: LATANOPROST EYE DROP 0.005% 2.5 ML BOTTLE OP SCH (21:13)
[2018-10-14] MEDS: HYDROCODONE/APAP 5/325MG 1 EACH TABLET GT PRN (21:13)
--- NOTE | 2018-10-14 21:36 | NUR ---
RT NOTE PATIENT WAS RECEIVED ON CONTINUOUS VENT SUPPORT ON NOTED SETTINGS. PARALEGAL LEGAL SECRETARY CHECK WAS DONE, SUCTIONED PATIENT WITH A MODERATE AMOUNT OF THIN WHITE PALE SECRETIONS. TRACH TUBE PATENT AND SECURED. BRADY AT [facility]. WILL CONTINUE TO MONITOR PATIENT. Addendum: 10/14/18 at 2136 by ABEBA SUAREZ RT Amended: Links added.
[2018-10-15] VITALS (7 sets, daily range): BP systolic 119–129; BP diastolic 57–75
[2018-10-15] MEDS: INSULIN REGULAR, HUMAN 100 UNIT/ML 3 ML VIAL SQ PRN ×4 (00:04→17:46)
[2018-10-15] MEDS: PROSOURCE / PROSTAT (PYXIS) 30 ML UDC GT SCH ×3 (05:03→21:17)
[2018-10-15] MEDS: BLOOD SUGAR DIAGNOSTIC 1 EACH STRIP IN SCH ×3 (05:03→17:45)
[2018-10-15] MEDS: METOCLOPRAMIDE HCL 10 MG/10 ML UDC GT SCH ×3 (05:05→21:15)
[2018-10-15] MEDS: SIMETHICONE 80 MG TAB.CHEW GT SCH ×4 (05:05→17:44)
[2018-10-15] MEDS: NEPRO 1,000 ML BOTTLE GT PRN (05:05)
[2018-10-15] MEDS: HYDROCODONE/APAP 5/325MG 1 EACH TABLET GT PRN (05:05)
[2018-10-15 06:14] LABS: BASOPHILS % (AUTO) 0.3 % (0.0-2.0); EOSINOPHILS % (AUTO) 6.2 % (0.0-6.0); HEMATOCRIT 24 % (39-51); HEMOGLOBIN 7.8 g/dL (13.5-17.5); LYMPHOCYTES # (AUTO) 0.8 /CMM (0.8-4.8); LYMPHOCYTES % (AUTO) 14.9 % (20.0-44.0); MEAN CORPUSCULAR HGB CONC 32 g/dl (31.0-36.0); MEAN CORPUSCULAR VOLUME 89 fL (80-96); MONOCYTES # (AUTO) 0.6 /CMM (0.1-1.30); MONOCYTES % (AUTO) 10.5 % (2.0-12.0); NEUTROPHILS # (AUTO) 3.8 /CMM (1.8-8.9); NEUTROPHILS % (AUTO) 68.1 % (43.0-81.0); PLATELET COUNT (AUTO) 83 /CMM (150-450); RED BLOOD CELL COUNT(AUTO) 2.73 MIL/uL (4.5-6.0); WHITE BLOOD COUNT (AUTO) 5.6 K/uL (4.3-11.0)
[2018-10-15 06:26] LABS: CALCIUM, SERUM 8.6 mg/dL (8.5-10.1); CARBON DIOXIDE 30 mmol/L (21-32); CHLORIDE 105 mmol/L (98-107); CREATININE 2.1 mg/dL (0.6-1.3); GLUCOSE 162 mg/dL (74-106); POTASSIUM 3.9 mmol/L (3.5-5.1); SODIUM SERUM 144 mmol/L (136-145); UREA NITROGEN, BLOOD 79 mg/dL (7-18)
[2018-10-15 07:04] LABS: BAND % (MANUAL) 5 % (0.0-5.0); EOSINOPHILS % (MANUAL) 7 % (0-4); LYMPHOCYTES % (MANUAL) 15 % (16-48); METAMYELOCYTES % 1 % (0-0); MONOCYTES % (MANUAL) 6 % (0-11.0); MYELOCYTES % 1 % (0-0); NEUTROPHILS % (MANUAL) 65 (42-76)
--- NOTE | 2018-10-15 08:00 | NUR ---
RN NOTES RECEIVED PT IN BED. OBTUNDED. TRACH TUBE IN PLACE AND INTACT. TOLERATING CURRENT VENT SETTINGS WELL. BREATHING UNLABORED. NO INDICATION OF PAIN NOTED AT THIS TIME. PATIENT SUCTIONED, SECRETION NOTED TO BE WHITE AND THIN. SINUS ROCCO HR 54 ON THE MONITOR. NOTED WITH GENERALIZED EDEMA. L CHEST WALL HD CATH IN PLACE, DRESSING DRY AND INTACT. GTUBE INTACT AND IN PLACED, WITH ONGOING GTF NEPRO AT 50ML/HR, TOLERATING WELL. WITH ANSHU MIDLINE INTACT AND PATENT ON FLUSHING. FC INTACT AND IN PLACED, DRAINING BY GRAVITY YELLOW COLOR URINE. SAFETY MEASURES AND ASPIRATION PRECAUTION OBSERVED AND MAINTAINED IN PLACED. WILL CONT TO MONITOR
[2018-10-15] MEDS: FUROSEMIDE 40 MG/4 ML VIAL IV SCH ×2 (08:58→17:45)
[2018-10-15] MEDS: MULTIVIT W/MINERALS 1 TAB TABLET GT SCH (08:58)
[2018-10-15] MEDS: PANTOPRAZOLE 40 MG/PACK PACK GT SCH ×2 (08:58→21:15)
[2018-10-15] MEDS: FINASTERIDE (5 MG) 5 MG TABLET GT SCH (08:59)
[2018-10-15] MEDS: ACIDOPHILUS/BULGARICUS 1 EACH TAB.CHEW GT SCH (08:59)
[2018-10-15] MEDS: ASCORBIC ACID 500 MG TABLET GT SCH (08:59)
[2018-10-15] MEDS: CARVEDILOL 6.25 MG TABLET GT SCH ×2 (08:59→21:00)
[2018-10-15] MEDS: LINAGLIPTIN 5 MG TABLET GT SCH (08:59)
[2018-10-15] MEDS: LACOSAMIDE 50 MG TABLET GT SCH ×2 (08:59→21:15)
[2018-10-15] MEDS: Z GUARD REMEDY 2 OZ OINT TP SCH ×2 (09:01→21:16)
[2018-10-15] MEDS: DORZOLAMIDE OPTH 2% 10 ML BOTTLE EACHEYE SCH ×3 (09:01→17:44)
[2018-10-15] MEDS: CHLORHEXIDINE GLUCONATE 15 ML UDC MM SCH ×2 (09:01→21:15)
[2018-10-15] MEDS: VITAMINS A AND D 56.7 GM TUBE TP SCH (09:02)
--- NOTE | 2018-10-15 09:47 | NUR ---
WOUND CARE CONSULT: PT PRESENTS WITH LEFT THIGH AND LEFT BUTTOCK EXTENDING TO SACRUM OPEN LESIONS, UNKNOWN ETIOLOGY, PRESENT ON ADMISSION. RECOMMENDATIONS MADE FOR SKIN PROTECTION AND CARE. DISCUSSED WITH NURSING STAFF. DEFER TO MD FOR CONTINUED TREATMENT OF LESIONS, UNKNOWN ETIOLOGY. PT HAS PROFOUND ANASARCA WITH WEEPING EDEMA NOTED TO PENILE AND SCROTAL, LEFT INNER THIGH AREAS. PT ON FIRST STEP [facility] AIRSS MATTRESS. WILL SEE PRN. IN AGREEMENT WITH PLAN OF CARE. Addendum: 10/15/18 at 0951 by JOSÉ MIGUEL CHAVEZ WNDNU Amended: Links added.
[2018-10-15] MEDS: NEOMY SULF/BACITRAC ZN/POLY 15 GM TUBE TP SCH (12:48)
--- NOTE | 2018-10-15 19:30 | NUR ---
RN NOTES ENDORSED PATIENT FOR CONTINUITY OF CARE. PT IN STABLE CONDITION. NO ACUTE CHANGES THROUGHOUT SHIFT. SAFETY MEASURES AND ASPIRATION PRECAUTION OBSERVED AT ALL TIMES. ALL NEEDS ANTICIPATED.
--- NOTE | 2018-10-15 20:30 | NUR ---
BUYER RENTER OPENING NOTES RECEIVED REPORT FROM MARBELLA RN. PATIENT OBTUNDED BUT RESPONDS TO TACTILE STIMULI. BREATHING EVEN & UNLABORED W/ TRACH INTACT & TOLERATING VENT SETTINGS AC 12, TV 500, FIO2 40%, PEEP 5. NO RESPIRATORY DISTRESS NOTED. ON TELE W/ A-FIB, HR 50S. RIGHT UPPER ARM MIDLINE INTACT & PATENT W/ DRESSING CDI, SALINE LOCKED. LEFT CW HD CATH INTACT. G-TUBE PATENT & FLUSHING WELL & GTF RUNNING @ 50 ML/HR. NO RESIDUAL NOTED @ THIS TIME. NO S/S OF PAIN OR DISCOMFORT. SAFETY MEASURES IN PLACE W/ SIDE RAILS UP & BED ALARM ON. HOB ELEVATED FOR ASPIRATION PRECAUTIONS. TURNED & REPOSITIONED FOR COMFORT. WILL CONTINUE TO MONITOR.
[2018-10-15] MEDS: ATORVASTATIN 40 MG TABLET GT SCH (21:15)
[2018-10-15] MEDS: LATANOPROST EYE DROP 0.005% 2.5 ML BOTTLE OP SCH (21:15)
[2018-10-15] MEDS: TAMSULOSIN 0.4 MG CAP.SR.24H GT SCH (21:15)
[2018-10-16] VITALS: BP 130/75
[2018-10-16] MEDS: BLOOD SUGAR DIAGNOSTIC 1 EACH STRIP IN SCH ×4 (00:57→18:15)
[2018-10-16] MEDS: INSULIN REGULAR, HUMAN 100 UNIT/ML 3 ML VIAL SQ PRN ×3 (00:58→12:30)
[2018-10-16] MEDS: SIMETHICONE 80 MG TAB.CHEW GT SCH ×4 (01:00→17:33)
[2018-10-16 04:00] VITALS: BP 127/74
[2018-10-16] MEDS: METOCLOPRAMIDE HCL 10 MG/10 ML UDC GT SCH ×2 (05:40→12:27)
[2018-10-16] MEDS: PROSOURCE / PROSTAT (PYXIS) 30 ML UDC GT SCH ×2 (05:43→12:28)
[2018-10-16] MEDS: NEPRO 1,000 ML BOTTLE GT PRN (05:59)
[2018-10-16 06:26] LABS: BASOPHILS % (AUTO) 0.2 % (0.0-2.0); EOSINOPHILS % (AUTO) 5.5 % (0.0-6.0); HEMATOCRIT 23 % (39-51); HEMOGLOBIN 7.6 g/dL (13.5-17.5); LYMPHOCYTES # (AUTO) 0.8 /CMM (0.8-4.8); LYMPHOCYTES % (AUTO) 13.5 % (20.0-44.0); MEAN CORPUSCULAR HGB CONC 32 g/dl (31.0-36.0); MEAN CORPUSCULAR VOLUME 90 fL (80-96); MONOCYTES # (AUTO) 0.6 /CMM (0.1-1.30); MONOCYTES % (AUTO) 10.1 % (2.0-12.0); NEUTROPHILS # (AUTO) 4.3 /CMM (1.8-8.9); NEUTROPHILS % (AUTO) 70.7 % (43.0-81.0); PLATELET COUNT (AUTO) 80 /CMM (150-450); RED BLOOD CELL COUNT(AUTO) 2.62 MIL/uL (4.5-6.0); WHITE BLOOD COUNT (AUTO) 6.1 K/uL (4.3-11.0)
[2018-10-16 06:40] LABS: CALCIUM, SERUM 8.8 mg/dL (8.5-10.1); CARBON DIOXIDE 31 mmol/L (21-32); CHLORIDE 105 mmol/L (98-107); CREATININE 2.1 mg/dL (0.6-1.3); GLUCOSE 168 mg/dL (74-106); POTASSIUM 3.4 mmol/L (3.5-5.1); SODIUM SERUM 145 mmol/L (136-145)
[2018-10-16 06:42] LABS: UREA NITROGEN, BLOOD 84 mg/dL (7-18)
[2018-10-16 07:12] LABS: BAND % (MANUAL) 3 % (0.0-5.0); NEUTROPHILS % (MANUAL) 63 (42-76)
[2018-10-16 07:13] LABS: EOSINOPHILS % (MANUAL) 11 % (0-4); LYMPHOCYTES % (MANUAL) 18 % (16-48); MONOCYTES % (MANUAL) 4 % (0-11.0); MYELOCYTES % 1 % (0-0)
--- NOTE | 2018-10-16 07:45 | NUR ---
DRILL PRESSER NOTES RECEIVED PATIENT OBTUNDED BUT RESPONDS TO TACTILE STIMULI. BREATHING EVEN & UNLABORED W/ TRACH INTACT & TOLERATING VENT SETTINGS AC 12, TV 500, FIO2 40%, PEEP 5. NO RESPIRATORY DISTRESS NOTED. ON TELE SR HR 53, RIGHT UPPER ARM MIDLINE INTACT & PATENT W/ DRESSING CDI, SALINE LOCKED. LEFT CW HD CATH INTACT. G-TUBE PATENT & FLUSHING WELL & GTF RUNNING @ 50 ML/HR. NO RESIDUAL NOTED @ THIS TIME. KEEP HOB ELEVATED AT ALL TIME,NO S/S OF PAIN OR DISCOMFORT. SAFETY MEASURES IN PLACE W/ SIDE RAILS UP & BED ALARM ON. HOB ELEVATED FOR ASPIRATION PRECAUTIONS. TURNED & REPOSITIONED FOR COMFORT. WILL CONTINUE TO MONITOR.
[2018-10-16 08:00] VITALS: BP 135/58
[2018-10-16] MEDS: CARVEDILOL 6.25 MG TABLET GT SCH (09:00)
[2018-10-16] MEDS: LACOSAMIDE 50 MG TABLET GT SCH (09:03)
[2018-10-16] MEDS: ASCORBIC ACID 500 MG TABLET GT SCH (09:03)
[2018-10-16] MEDS: CHLORHEXIDINE GLUCONATE 15 ML UDC MM SCH (09:03)
[2018-10-16] MEDS: FINASTERIDE (5 MG) 5 MG TABLET GT SCH (09:03)
[2018-10-16] MEDS: ACIDOPHILUS/BULGARICUS 1 EACH TAB.CHEW GT SCH (09:03)
[2018-10-16] MEDS: MULTIVIT W/MINERALS 1 TAB TABLET GT SCH (09:03)
[2018-10-16] MEDS: LINAGLIPTIN 5 MG TABLET GT SCH (09:03)
[2018-10-16] MEDS: FUROSEMIDE 40 MG/4 ML VIAL IV SCH ×2 (09:03→16:39)
[2018-10-16] MEDS: PANTOPRAZOLE 40 MG/PACK PACK GT SCH (09:03)
[2018-10-16] MEDS: NEOMY SULF/BACITRAC ZN/POLY 15 GM TUBE TP SCH (09:11)
[2018-10-16] MEDS: VITAMINS A AND D 56.7 GM TUBE TP SCH (09:12)
[2018-10-16] MEDS: Z GUARD REMEDY 2 OZ OINT TP SCH (09:13)
[2018-10-16] MEDS: DORZOLAMIDE OPTH 2% 10 ML BOTTLE EACHEYE SCH ×3 (09:36→16:40)
[2018-10-16 12:00] VITALS: BP 126/61
[2018-10-16] MEDS ORDERED: POTASSIUM CHLORIDE 20 MEQ POWDER PACKET GT SCH (12:00)
--- NOTE | 2018-10-16 12:00 | NUR ---
INDUSTRIAL HIRE SALES ASSISTANT NOTE T 92.2 WARM BLANKET ORDERED WILL F\U , WILL HAVE HD SOON
--- NOTE | 2018-10-16 12:47 | NUR ---
PUBLISHER ASSISTANT NOTE KEEP CLEAN DRY, ABLE TO MAKE ALL NEEDS ATTENDED
--- NOTE | 2018-10-16 14:00 | NUR ---
television news reporter note on hd as ordered ,will f\u
--- NOTE | 2018-10-16 15:30 | NUR ---
lizeth fuentes rn guest relations manager aware that [id number] no new order given at this time
[2018-10-16 16:00] VITALS: BP 117/61
--- NOTE | 2018-10-16 16:00 | NUR ---
TAPE CUTTING MACHINE OPERATOR NOTE HD COMPLETED REMOVED, 1500 ML OF FLUIDS OUT BP 109/69
--- NOTE | 2018-10-16 18:00 | NUR ---
ROLL HAULER NOTE REPORT GIVEN TO JOANIE FROM [facility] ,PATIENT WILL BE DISCHARGE TO [facility] PER NATALY NOVOA OD GRINDER OPERATOR AMELIE ZAIDI NOTIFIED , PER JOSE RAUL SOLORIO TO KEEP MID LINE
--- NOTE | 2018-10-16 18:14 | NUR ---
KARATE INSTRUCTOR NOTE TELE REMOVED , TRANSFERRED TO [facility] WITH STABLE CONDITION WITH RT
[2018-10-18 02:12] LABS: HEPATITIS Be AB Negative (Negative)
== END 2018-10-16 17:55 | DRG 682 ==
LOC: MEDSG1 11:51 → TELE1 17:29
PROVIDERS: ADMIT Family Medicine; ATTEND Registered Nurse
PROC: 5A1955Z Respiratory Ventilation, Greater than 96 Consecutive Hours (ICD-10-PCS; principal; 2018-10-11)
PROC: 02HV33Z Insertion of Infusion Device into Superior Vena Cava, Percutaneous Approach (ICD-10-PCS; 2018-10-12)
PROC: 5A1D70Z Performance of Urinary Filtration, Intermittent, Less than 6 Hours Per Day (ICD-10-PCS; 2018-10-12)
PROC: 5A1D70Z Performance of Urinary Filtration, Intermittent, Less than 6 Hours Per Day (ICD-10-PCS; 2018-10-13)
PROC: 5A1D70Z Performance of Urinary Filtration, Intermittent, Less than 6 Hours Per Day (ICD-10-PCS; 2018-10-16)
DX: N17.0 Acute kidney failure with tubular necrosis (principal); G93.41 Metabolic encephalopathy; Z99.11 Dependence on respirator [ventilator] status; I13.2 Hypertensive heart and chronic kidney disease with heart failure and with stage 5 chronic kidney disease, or end stage renal disease; J96.11 Chronic respiratory failure with hypoxia; R40.3 Persistent vegetative state; Z93.1 Gastrostomy status; Z93.0 Tracheostomy status; R60.1 Generalized edema; I50.9 Heart failure, unspecified; N18.6 End stage renal disease; E11.22 Type 2 diabetes mellitus with diabetic chronic kidney disease; D63.8 Anemia in other chronic diseases classified elsewhere; E78.5 Hyperlipidemia, unspecified; F03.90 Unspecified dementia, unspecified severity, without behavioral disturbance, psychotic disturbance, mood disturbance, and anxiety; H40.9 Unspecified glaucoma; I25.10 Atherosclerotic heart disease of native coronary artery without angina pectoris; K21.9 Gastro-esophageal reflux disease without esophagitis; L30.4 Erythema intertrigo; N40.0 Benign prostatic hyperplasia without lower urinary tract symptoms; Z86.73 Personal history of transient ischemic attack (TIA), and cerebral infarction without residual deficits; Z87.891 Personal history of nicotine dependence; Z87.01 Personal history of pneumonia (recurrent); R19.5 Other fecal abnormalities; L98.8 Other specified disorders of the skin and subcutaneous tissue; R21 Rash and other nonspecific skin eruption; Z79.4 Long term (current) use of insulin; R13.10 Dysphagia, unspecified; F09 Unspecified mental disorder due to known physiological condition
CPT/HCPCS: 31720; 36415; 71045-TC; 76942-TC; 80048-TC; 80061-TC; 82962-TC; 83605-TC; 83735-TC; 84100-TC; 85025-TC; 85027-TC; 85610-TC; 86704; 86705; 86706; 86707; 86709-TC; 86803; 87081-TC; 87340; 87350; 90935-TC; 94002-TC; 94003-TC; 94760-TC; A6253; A6402; A7526; G0378; J1815; J1940; J8597

== ENCOUNTER 2018-10-20 16:24 | Inpatient (IN) | payer MEDICARE, OTHER ==
[~2018-10-20] VITALS: Ht 172.7 cm; Wt 83.0 kg
[~2018-10-20 16:24] MED LIST changes: -[UNRECOGNIZED DRUG - CODE] IV
--- NOTE | 2018-10-20 17:00 | NUR ---
[facility] COMMERCIAL CORRESPONDENT NOTES RECEIVED PT FROM SUBACUTE TO ROOM 102 VIA GURNEY.PT IS ON VENT DEPENDENT,TOLERATING WELL.NO SOB AND ACUTE DISTRESS NOTED.PT IS ADMITTED FOR PLATELET TRANSFUSION FOR PLATELET 62.CHARGE NURSE SAID TO TREAT PT AN OUTPATIENT STATUS ONLY FOR THE TRANSFUSION.CONSENT FOR THE TRANSFUSION HAS SIGNED.SKIN ASSESSMENT IS DONE AND PHOTO HAS TAKEN.VÁSQUEZ CATHETER IS IN PLACE AND SEEN THE SKIN IS DRY.NOTED WITH HD CATH SITE ON LEFT UPPER CHEST IS BLEEDING AND DRESSING HAS TO CHANGED FREQUENTLY.FAMILY IS AT BEDSIDE.G TUBE IS IN PLACE AND MINIMAL RESIDUAL NOTED.SAFETY IS MAINTAINED AT ALL TIMES.CALL LIGHT IS WITHIN REACH.
--- NOTE | 2018-10-20 17:16 | NUR ---
NURSING ELECTRONIC TECHNICIAN NOTIFIED REGARDING PT. ORDER FOR PLATELET OUTPATIENT VS. [facility] ADMISSION ,PER LAB THEY ARE NOT SURE WHEN PLATELET WILL BE AVAILABLE,JOSÉ LUIS DELGADO NOTIFIED.
--- NOTE | 2018-10-20 17:49 | NUR ---
NOTIFIED JOSÉ LUIS COHN NP TO ADMIT PT. PER NURSING SUP SINCE PER BLOOD BANK THEY HAVE TO ORDER IT FROM [facility] AND NOT SURE WHEN WILL IT BE DELIVERED.
[2018-10-20] MEDS ORDERED: CELLULOSE,OXIDIZED 1 EA PACK MC ONE (18:00)
--- NOTE | 2018-10-20 18:20 | NUR ---
PER JOSÉ LUIS COHN HE WILL PUT ADMITTING ORDERS.
--- NOTE | 2018-10-20 18:46 | NUR ---
[facility] RN CLOSING NOTES PT IS LYING ON BED.STILL HAVING MODERATE BLEEDING NOTED FROM HD CATH LEFT U CHEST.SURGICEL DRESSING HAS DONE.MIDLINE INSERTED ON RIGHT UPPER ARM.ON VENT DEPENDENT.NO SOB AND ACUTE DISTRESS NOTED.ENDORSED TO CHIP WASHER RN FOR ERNST AND FOLLOW UP WITH PLATELET TRANSFUSION.
[2018-10-20] MEDS ORDERED: ACETAMINOPHEN 650 MG/20.3 ML UDC GT PRN (19:30)
[2018-10-20] MEDS ORDERED: ACETAMINOPHEN 325 MG TABLET PO PRN (19:30)
[2018-10-20] MEDS ORDERED: BISACODYL SUPP (10 MG) 10 MG/SUPP.RECT SUPP.RECT RC PRN (19:30)
[2018-10-20] MEDS ORDERED: IPRATROPIUM NEB FS 0.5 MG/2.5 ML AMPUL.NEB IH PRN (19:30)
[2018-10-20] MEDS ORDERED: NITROGLYCERIN PACKET 1 GM PACKET TD PRN (19:30)
[2018-10-20] MEDS ORDERED: hydrALAZINE HCL 25 MG TABLET GT PRN (19:30)
[2018-10-20] MEDS ORDERED: LORAZEPAM INJ 2 MG/ML VIAL IM PRN (19:30)
[2018-10-20] MEDS ORDERED: INSULIN REGULAR, HUMAN 100 UNIT/ML 3 ML VIAL SQ PRN (19:30)
[2018-10-20] MEDS ORDERED: ONDANSETRON HCL/PF 4 MG/2 ML VIAL IVP PRN (19:30)
[2018-10-20] MEDS ORDERED: DEXTROSE 50%-WATER 50 ML DISP.SYRIN IV PRN (19:30)
[2018-10-20] MEDS ORDERED: MAGNESIUM HYDROXIDE 30 ML UDC PO PRN (19:30)
[2018-10-20] MEDS ORDERED: HYDROCODONE/APAP 5/325MG 1 EACH TABLET GT PRN (19:30)
[2018-10-20] MEDS ORDERED: Z GUARD REMEDY 2 OZ OINT TP PRN (19:30)
[2018-10-20] MEDS ORDERED: MAG HYDROX/AL HYDROX/SIMETH 30 ML UDC PO PRN (19:30)
[2018-10-20 20:00] VITALS: BP 138/55
[2018-10-20] MEDS ORDERED: NEPRO VAN 237 ML CAN GT SCH (20:00)
--- NOTE | 2018-10-20 20:07 | NUR ---
TD RN NOTES RECEIVED PT ON BED. A[facility]TING SATURATING WELL, NO RESPIRATORY DISTRESS NOTED. ON TELE MONITOR SR, HD CATH BLEEDING NOTED PACKED WITH PRESSURE DRESSING. IV ACCESS ON ANSHU MIDLINE, PATENT AND INTACT. VÁSQUEZ CATH DRAINING YELLOW URINE. HEAD OF BED ELEVATED. SIDE RAILS UP. CALL LIGHT WITHIN REACH. BED ALARM ON. WILL CONTINUE TO MONITOR PT CLOSELY.
--- NOTE | 2018-10-20 20:08 | NUR ---
PT RECEIVED ON VENT VIA TRACH IN ROOM 102. AIRWAY PATENT. SECURE VIA TRACH TIE. PT RESPONSIVE TO PAIN. AMBU BAG AT BEDSIDE ALARMS SET AND AUDIBLE. DISCONNECT ALARMS CHECKED. VENT PLUGGED INTO RED OUTLET. SUCTIONED A SMALL AMOUNT OF THICK YELLOW SECRETIONS. SUCTIONED MOUTH VIA YANKAUER. HEAD OF BED AT 30 DEGREES PT RECEIVING NO TREATMENTS AT THIS TIME. Addendum: 10/20/18 at 2016 by PHILIPP LIMON RT Amended: Links added.
--- NOTE | 2018-10-20 20:53 | NUR ---
TD RN NOTES CLARIFIED WITH KEN COOK RELIEF REGARDING NPO ORDER. PT NPO DUE TO PT IS ON GTUBE FEEDING. WILL MONITOR PT CLOSELY.
[2018-10-20] MEDS ORDERED: LACOSAMIDE ORAL SOLN 50 MG/5 ML UDC GT SCH (21:00)
[2018-10-20] MEDS ORDERED: NEPRO 1,000 ML BOTTLE GT PRN (21:30)
[2018-10-20] MEDS: TAMSULOSIN 0.4 MG CAP.SR.24H GT SCH (22:15)
[2018-10-20] MEDS: PANTOPRAZOLE 40 MG/PACK PACK GT SCH (22:15)
[2018-10-20] MEDS: ATORVASTATIN 40 MG TABLET GT SCH (22:15)
[2018-10-20] MEDS: CARVEDILOL 6.25 MG TABLET GT SCH (22:16)
[2018-10-20] MEDS: METOCLOPRAMIDE HCL 10 MG/10 ML UDC GT SCH (22:16)
[2018-10-20] MEDS: CHLORHEXIDINE GLUCONATE 15 ML UDC MM SCH (22:16)
[2018-10-20] MEDS: LATANOPROST EYE DROP 0.005% 2.5 ML BOTTLE EACHEYE SCH (22:17)
[2018-10-20] MEDS: Z GUARD REMEDY 2 OZ OINT TP SCH (22:17)
--- NOTE | 2018-10-20 22:23 | NUR ---
TD RN NOTES INFORMED FUEL EFFICIENT AUTOMOBILE DESIGNER LACOSAMIDE 50MG/5ML NOT AVAILABLE. PER DELIA. FOLLOW UP IN THE MORNING. WILL MONITOR PT CLOSELY
[2018-10-21] VITALS (13 sets, daily range): BP systolic 101–128; BP diastolic 35–74
--- NOTE | 2018-10-21 00:43 | NUR ---
TD RN NOTES MANAGER VAN AND CHARGE NURSE UNABLE TO SCAN BLOOD BANK WRIST BAND NUMBER "[id number]". CALLED LAB FOR THE ISSUE AND PER BLOOD BANK RETURN THE BLOOD WITH PATIENT' S BLOODBANK WRIST BAND FOR SECOND VERIFICATION. BLOOD BANK [employer] NANCI VERIFIED X3 THAT THE WB# [id number] MATCH WITH THERE SYSTEM THAT IT BELONGS TO THE RIGHT PATIENT. MANAGER VAN AND CHARGE NURSE THEN VERIFIED AGAIN THE BLOOD, STILL UNABLE TO SCAN WB#, OVERRIDE THE WB#, INFORMED BLOOD BANK , BUT WAS ABLE TO SCAN ALL OTHER BARCODES. BLOOD TRANSFUSION STARTED. WILL MONITOR PT CLOSELY FOR ANY REACTIONS.
--- NOTE | 2018-10-21 00:56 | NUR ---
TD RN NOTES PER KEN NO SLIDING SCALE FOR NOW. PT NPO FOR RESIDUALS AND GTUBE LEAK. WILL MONITOR PT CLOSELY.
[2018-10-21] MEDS: BLOOD SUGAR DIAGNOSTIC 1 EACH STRIP IN SCH ×4 (01:02→17:26)
[2018-10-21] MEDS: SIMETHICONE 80 MG TAB.CHEW GT SCH ×4 (01:03→17:10)
--- NOTE | 2018-10-21 01:11 | NUR ---
TD RN NOTES BLOOD TRANSFUSION DONE. NO TRANSFUSION REACTION NOTED. V/S WNL. WILL MONITOR PT CLOSELY.
[2018-10-21] MEDS: NEPRO 1,000 ML BOTTLE GT PRN (01:26)
[2018-10-21] MEDS ORDERED: ALBUTEROL FS 2.5 MG/3 ML VIAL.NEB NEB PRN (01:30)
[2018-10-21] MEDS: METOCLOPRAMIDE HCL 10 MG/10 ML UDC GT SCH ×3 (04:01→21:26)
--- NOTE | 2018-10-21 04:16 | NUR ---
KAVITHA RN NOTES BLOOD SUGAR OF 145MG/DL @ 0000 ACCUCHECK. CALLED LAB THAT ITS NOT SHOWING IN THE CHEMISTRY. PER LAB TRANSFER THE ACCUCHECK MACHINE IN ANOTHER DOCK.
--- NOTE | 2018-10-21 05:13 | NUR ---
TD RN NOTES PAGED KILN DOOR REPAIRER REGARDING HD CATH BLEEDING MORE. WILL MONITOR PT CLOSELY.
--- NOTE | 2018-10-21 05:18 | NUR ---
TD RN NOTES PER KEN NO NEW ORDERS. PRESSURE DRESSING CHANGED. WILL MONITOR PT CLOSELY.
--- NOTE | 2018-10-21 07:22 | NUR ---
TD RN NOTES BLEEDING NOTED THROUGHOUT THE SHIFT IN HD ACCESS SITE. CONTROLLED BY PRESSURE DRESSING X3. ONE BAG PLATELET TRANSFUSED WITHOUT ANY REACTION. HEAD OF BED ELEVATED. SIDE RAILS UP. CALL LIGHT WITHIN REACH. BED ALARM ON. WILL CONTINUE TO MONITOR PT CLOSELY.
[2018-10-21] MEDS ORDERED: DEXTROSE 50%-WATER 50 ML DISP.SYRIN IV PRN (07:30)
[2018-10-21 07:50] LABS: BASOPHILS % (AUTO) 0.3 % (0.0-2.0); EOSINOPHILS % (AUTO) 4.9 % (0.0-6.0); LYMPHOCYTES # (AUTO) 0.9 /CMM (0.8-4.8); LYMPHOCYTES % (AUTO) 15.2 % (20.0-44.0); MEAN CORPUSCULAR HGB CONC 33 g/dl (31.0-36.0); MEAN CORPUSCULAR VOLUME 88 fL (80-96); MONOCYTES # (AUTO) 0.7 /CMM (0.1-1.30); MONOCYTES % (AUTO) 11.8 % (2.0-12.0); NEUTROPHILS # (AUTO) 4.1 /CMM (1.8-8.9); NEUTROPHILS % (AUTO) 67.8 % (43.0-81.0); PLATELET COUNT (AUTO) 83 /CMM (150-450); RED BLOOD CELL COUNT(AUTO) 2.16 MIL/uL (4.5-6.0); WHITE BLOOD COUNT (AUTO) 6.1 K/uL (4.3-11.0)
[2018-10-21 07:57] LABS: CALCIUM, SERUM 8.4 mg/dL (8.5-10.1); CARBON DIOXIDE 33 mmol/L (21-32); CHLORIDE 102 mmol/L (98-107); CREATININE 1.3 mg/dL (0.6-1.3); GLUCOSE 133 mg/dL (74-106); POTASSIUM 3.5 mmol/L (3.5-5.1); SODIUM SERUM 141 mmol/L (136-145); UREA NITROGEN, BLOOD 39 mg/dL (7-18)
--- NOTE | 2018-10-21 08:00 | NUR ---
[facility] RN NOTE RECEIVED PATIENT FROM TELECOM SALES CONSULTANT ,AWAKE BUT OBTUNDED, ON TELE MONITOR SR HR 70, WITH VÁSQUEZ CATH TO GRAVITY WITH YELLOW COLOR URINE, ON G TUBE FEEDING AT 20 ML PER HOUR NO RESIDUAL NOTED , WILL F\U TO INCISED FORMULA RATE , HD CATH SITE STILL WITH SEVERE BLEEDING PRESSURE DRESSING APPLIED , ICE PACK APPLIED DR AGUDELO AT BEDSIDE AWARE OF BLEEDING , CALL LIGHT WITHIN REACH , BED IN LOWEST AND LOCKED POSITION
[2018-10-21 08:07] LABS: CHOLESTEROL 80 mg/dL (<200); HDL CHOLESTEROL 48 mg/dL (40-60); LDL 29 mg/dL (0-99); THYROID STIMULATING HORMONE 6.171 uIU/mL (0.358-3.74); TRIGLYCERIDES 40 mg/dL (30-150)
[2018-10-21 08:21] LABS: HEMATOCRIT 19 % (39-51); HEMOGLOBIN 6.2 g/dL (13.5-17.5)
[2018-10-21 08:57] LABS: HEMOGLOBIN 6.1 g/dL (13.5-17.5)
[2018-10-21 08:59] LABS: BAND % (MANUAL) 8 % (0.0-5.0); EOSINOPHILS % (MANUAL) 8 % (0-4); LYMPHOCYTES % (MANUAL) 9 % (16-48); MONOCYTES % (MANUAL) 14 % (0-11.0); NEUTROPHILS % (MANUAL) 61 (42-76)
--- NOTE | 2018-10-21 09:00 | NUR ---
[facility] RN NOTE JOSÉ LUIS DELGADO RN DIETARY SERVICE AIDE AWARE THAT HG 6.2 HD CATHSITE IS BLEEDING 1 UNIT PRBC ORDERED ALSO CALLED TO DR ALEMAN X2 ,LEFT A MESSAGE
[2018-10-21] MEDS: CARVEDILOL 6.25 MG TABLET GT SCH ×2 (09:08→21:27)
[2018-10-21] MEDS: ACIDOPHILUS/BULGARICUS 1 EACH TAB.CHEW GT SCH (09:08)
[2018-10-21] MEDS: LINAGLIPTIN 5 MG TABLET GT SCH (09:09)
[2018-10-21] MEDS: CHLORHEXIDINE GLUCONATE 15 ML UDC MM SCH ×2 (09:09→21:26)
[2018-10-21] MEDS: ASCORBIC ACID 500 MG TABLET GT SCH (09:09)
[2018-10-21] MEDS: PANTOPRAZOLE 40 MG/PACK PACK GT SCH ×2 (09:09→21:26)
[2018-10-21] MEDS: FINASTERIDE (5 MG) 5 MG TABLET GT SCH (09:09)
[2018-10-21] MEDS: MULTIVIT W/MINERALS 1 TAB TABLET GT SCH (09:09)
[2018-10-21] MEDS: VITAMINS A AND D 56.7 GM TUBE TP SCH (09:11)
[2018-10-21] MEDS: Z GUARD REMEDY 2 OZ OINT TP SCH ×2 (09:11→21:27)
[2018-10-21] MEDS: DORZOLAMIDE OPTH 2% 10 ML BOTTLE EACHEYE SCH ×3 (09:23→16:46)
[2018-10-21] MEDS: LACOSAMIDE 50 MG TABLET GT SCH ×2 (09:23→21:26)
[2018-10-21] MEDS ORDERED: DESMOPRESSIN 20 MCG in IV NS 0.9% 50 ML IV ONE (10:30)
--- NOTE | 2018-10-21 11:28 | NUR ---
[facility] RN NOTE DR ALEMAN CALLED BACK WILL BE SEEING PATIENT SOON WILL F\U
[2018-10-21] MEDS: INSULIN REGULAR, HUMAN 100 UNIT/ML 3 ML VIAL SQ PRN ×2 (12:14→17:42)
[2018-10-21] MEDS: PROSOURCE / PROSTAT (PYXIS) 30 ML UDC GT SCH ×2 (12:15→21:33)
--- NOTE | 2018-10-21 14:57 | NUR ---
PLANT TECH NOTE DR ALEMAN AT BEDSIDE SUTURE PLCED ON HD CATH, NURSE HD AT BEDSIDE, WILL MONITOR FOR BLEEDING AT THIS TIME, CALLED BLOOD BANK X2 NO BLOOD READY YET
--- NOTE | 2018-10-21 15:35 | NUR ---
[facility] RN NOTE HD COMPLETED 2500 ML OF FLUIDS OUT, BP117/57 HR 81
--- NOTE | 2018-10-21 16:44 | NUR ---
[facility] RN NOTE CALLED TO BLOOD BANK ,NO BLOOD READY YET
--- NOTE | 2018-10-21 17:14 | NUR ---
[facility] RN NOTE NO RESIDUAL NOTED WILL INCREASE G TUBE FEEDING AT 30 ML PER HOUR . WILL F\U
--- NOTE | 2018-10-21 18:26 | NUR ---
[facility] RN NOTE CALLED BLOOD BANK, SPOKE WITH CANDI, NO BLOOD READY YET , AWAITING BLOOD FROM [facility] WILL F\U AND WILL ENDORSE TO RN NEXT SHIFT
--- NOTE | 2018-10-21 20:00 | NUR ---
[facility] RN NOTE RECEIVED PATIENT'S REPORT FROM MORNING SHIFT RN ,PATIENT IS AWAKE BUT OBTUNDED, ON TELE MONITOR SR HR 70'S, WITH VÁSQUEZ CATH IN PLACE DRAINING TO GRAVITY WITH YELLOW, CLOUDY URINE, ON G TUBE FEEDING AT 30 ML PER HOUR NO RESIDUAL NOTED AND HAS BEEN INCREASED TO 35ML/HR , HD CATH ON LEFT UPPER CHEST WALL IS IN PLACE WITH DRESSING DRY AND INTACT . PRBC IS NOT READY YET, WILL F/U ON MD ORDER FOR PRBC TRANSFUSION WITH LAB . HOB IS ELEVATED AT ALL TIMES, BED IN LOWEST LOCKED POSITION, CALL LIGHT WITHIN REACH. ALL SAFETY MEASURES ARE IMPLEMENTED. WILL CONTINUE TO MONITOR PATIENT CLOSELY.
--- NOTE | 2018-10-21 20:25 | NUR ---
PT RECEIVED ON VENT VIA TRACH. AIRWAY PATENT. SECURE VIA TRACH TIE. PT RESPONSIVE TO PAIN. AMBU BAG AT BEDSIDE. ALARMS SET AND AUDIBLE. DISCONNECT ALARMS CHECKED. VENT PLUGGED INTO RED OUTLET. SUCTIONED A SMALL AMOUNT OF THICK YELLOW SECRETIONS. SUCTIONED MOUTH VIA YANKAUER. HEAD OF BED AT 30 DEGREES PT RECEIVING NO TREATMENTS AT THIS TIME. Addendum: 10/21/18 at 2026 by PHILIPP LIMON RT Amended: Links added.
[2018-10-21] MEDS: TAMSULOSIN 0.4 MG CAP.SR.24H GT SCH (21:26)
[2018-10-21] MEDS: ATORVASTATIN 40 MG TABLET GT SCH (21:26)
[2018-10-21] MEDS: LATANOPROST EYE DROP 0.005% 2.5 ML BOTTLE EACHEYE SCH (21:29)
--- NOTE | 2018-10-21 23:15 | NUR ---
rachelle rn notes Received blood from lab and started 1 unit of prbc. verified with second RN Wilmarin. Set of V/S are taken prior to start of blood transfusion. Transfusion started at 80ml/hr, all safety measures are implemented. will monitor patient closely.
[2018-10-22] VITALS (13 sets, daily range): BP systolic 109–137; BP diastolic 15–70
[2018-10-22] MEDS: BLOOD SUGAR DIAGNOSTIC 1 EACH STRIP IN SCH ×5 (00:40→23:59)
[2018-10-22] MEDS: SIMETHICONE 80 MG TAB.CHEW GT SCH ×5 (00:40→23:59)
[2018-10-22] MEDS: INSULIN REGULAR, HUMAN 100 UNIT/ML 3 ML VIAL SQ PRN ×4 (00:47→17:53)
--- NOTE | 2018-10-22 02:25 | NUR ---
[facility] RN NOTES 1UNIT OF PRBC TRANSFUSION HAS BEEN DONE. PATIENT IS IN STABLE CONDITION, V/S DURING AND IN THE END OF BLOOD TRANSFUSION WERE WNL, NO ALLERGIC REACTIONS, NO SOB, NO S/S OF PAIN HAS BEEN NOTED. WILL CONTINUE TO MONITOR PATIENT CLOSELY.
[2018-10-22] MEDS: METOCLOPRAMIDE HCL 10 MG/10 ML UDC GT SCH ×3 (05:24→21:15)
[2018-10-22] MEDS: PROSOURCE / PROSTAT (PYXIS) 30 ML UDC GT SCH ×3 (05:25→21:16)
--- NOTE | 2018-10-22 06:25 | NUR ---
rn notes GOT A CALL FROM LAB [facility] TO REPORT PATIENT'S HGB IS 7.0. WILL INFOBRIGHT GUADARRAMA AND WILL MONITOR PATIENT.
[2018-10-22 06:29] LABS: BASOPHILS % (AUTO) 0.3 % (0.0-2.0); EOSINOPHILS % (AUTO) 3.6 % (0.0-6.0); HEMATOCRIT 22 % (39-51); LYMPHOCYTES % (AUTO) 17.2 % (20.0-44.0); MEAN CORPUSCULAR HGB CONC 33 g/dl (31.0-36.0); MEAN CORPUSCULAR VOLUME 88 fL (80-96); MONOCYTES # (AUTO) 0.7 /CMM (0.1-1.30); MONOCYTES % (AUTO) 11.2 % (2.0-12.0); NEUTROPHILS % (AUTO) 67.7 % (43.0-81.0); PLATELET COUNT (AUTO) 71 /CMM (150-450); RED BLOOD CELL COUNT(AUTO) 2.43 MIL/uL (4.5-6.0); WHITE BLOOD COUNT (AUTO) 5.9 K/uL (4.3-11.0)
[2018-10-22 06:59] LABS: CALCIUM, SERUM 8.4 mg/dL (8.5-10.1); CARBON DIOXIDE 31 mmol/L (21-32); CHLORIDE 100 mmol/L (98-107); CREATININE 1.4 mg/dL (0.6-1.3); GLUCOSE 160 mg/dL (74-106); POTASSIUM 3.4 mmol/L (3.5-5.1); SODIUM SERUM 139 mmol/L (136-145); UREA NITROGEN, BLOOD 36 mg/dL (7-18)
[2018-10-22 08:10] LABS: BAND % (MANUAL) 4 % (0.0-5.0); EOSINOPHILS % (MANUAL) 3 % (0-4); LYMPHOCYTES % (MANUAL) 13 % (16-48); METAMYELOCYTES % 1 % (0-0); MONOCYTES % (MANUAL) 7 % (0-11.0); NEUTROPHILS % (MANUAL) 72 (42-76)
[2018-10-22] MEDS: CHLORHEXIDINE GLUCONATE 15 ML UDC MM SCH ×2 (08:45→21:15)
[2018-10-22] MEDS: FINASTERIDE (5 MG) 5 MG TABLET GT SCH (08:46)
[2018-10-22] MEDS: MULTIVIT W/MINERALS 1 TAB TABLET GT SCH (08:46)
[2018-10-22] MEDS: ACIDOPHILUS/BULGARICUS 1 EACH TAB.CHEW GT SCH (08:46)
[2018-10-22] MEDS: LINAGLIPTIN 5 MG TABLET GT SCH (08:50)
[2018-10-22] MEDS: LACOSAMIDE 50 MG TABLET GT SCH ×2 (08:50→21:15)
[2018-10-22] MEDS: PANTOPRAZOLE 40 MG/PACK PACK GT SCH ×2 (08:50→21:15)
[2018-10-22] MEDS: ASCORBIC ACID 500 MG TABLET GT SCH (08:50)
[2018-10-22] MEDS: CARVEDILOL 6.25 MG TABLET GT SCH ×2 (08:50→21:16)
[2018-10-22] MEDS: DORZOLAMIDE OPTH 2% 10 ML BOTTLE EACHEYE SCH ×3 (08:51→17:42)
[2018-10-22] MEDS: Z GUARD REMEDY 2 OZ OINT TP SCH ×2 (08:51→21:18)
[2018-10-22] MEDS: VITAMINS A AND D 56.7 GM TUBE TP SCH (08:51)
--- NOTE | 2018-10-22 08:53 | NUR ---
RN NOTES MD AGUDELO IS AT THE BEDSIDE NOTIFIED ABOUT MORNING LAB RESULT HGB LEVEL 7.0 AND NO NEW ORDERS FOR NOW.
[2018-10-22] MEDS: NEPRO 1,000 ML BOTTLE GT PRN (09:14)
--- NOTE | 2018-10-22 10:04 | NUR ---
RT NOTE RECEIVED PT MECHANICALLY VENTILATED VIA SHILEY 6 CUFFED TRACHEOSTOMY TUBE. CUFF INFLATED. TRACH TUBE MIDLINE AND SECURE. VENTILATOR SETTINGS PRESCRIBED. ALARMS SET PER PROTOCOL AND AUDIBLE. VENT PLUGGED IN TO RED OUTLET. AMBU BAG AT BED SIDE. NO DISTRESS NOTED AT MOMENT. Addendum: 10/22/18 at 1006 by CARINA SUAREZ RT Amended: Links added.
[2018-10-22] MEDS: POTASSIUM CL. PREMIX PERIPHER. 50 ML IV SCH ×2 (10:08→11:45)
--- NOTE | 2018-10-22 16:00 | NUR ---
TEL NURSE ,received in bed skin w/d color pale vent/trach,patient had a mod amt vomited GT feeding residual 100ml obtained , suctioned for small amt secretions obtained cleaned up and made patient comfortable patient turned to side and made patient comfortable
--- NOTE | 2018-10-22 17:00 | NUR ---
IMPORTER EXPORTER NOTE RECEIVED PATIENT RESTING WITH HOB ELEVATED, OBTUNDED, TRACH TO VENT ON SETTINGS ORDERED, ASPIRATION PRECAUTIONS OBSERVED, NO S/SX OF CARDIAC OR RESPIRATORY DISTRESS, F/C DRAINING TO GRAVITY JULIEN COLOR URINE, ANSHU MIDLINE SL PATENT, FLUSHING WELL, LCW HD CATH CLEAN AND DRY, SKIN KEPT CLEAN AND DRY, NEPRO AT 30CC/HR, 1ML RESIDUAL, WILL CONTINUE TO MONITOR. SAFETY MAINTAINED AT ALL TIMES, BED IN LOW LOCKED POSITION, CALL LIGHT WITHIN REACH, WILL CONTINUE TO MONITOR FOR ANY CHANGES IN CONDITION.
[2018-10-22 18:32] LABS: HEMOGLOBIN 7.2 g/dL (13.5-17.5)
[2018-10-22] MEDS: ATORVASTATIN 40 MG TABLET GT SCH (21:15)
[2018-10-22] MEDS: TAMSULOSIN 0.4 MG CAP.SR.24H GT SCH (21:15)
[2018-10-22] MEDS: LATANOPROST EYE DROP 0.005% 2.5 ML BOTTLE EACHEYE SCH (21:17)
[2018-10-23] VITALS: BP 123/70
--- NOTE | 2018-10-23 02:47 | NUR ---
PT RCVD PROSPER'D ON MECHANICAL VENT WITH CHARTED SETTINGS. SX DONE. PT PROSPER IS PATENT AND SECURE. AMBU BAG AT BEDSIDE. VENT PLUGGED INTO RED OUTLET. ALARMS ARE ON AND AUDIBLE. WILL CONTINUE TO MONITOR. Addendum: 10/23/18 at 0248 by TITO GARCES RT Amended: Links added.
[2018-10-23 04:00] VITALS: BP 123/70
[2018-10-23] MEDS: BLOOD SUGAR DIAGNOSTIC 1 EACH STRIP IN SCH ×2 (05:14→12:32)
[2018-10-23] MEDS: METOCLOPRAMIDE HCL 10 MG/10 ML UDC GT SCH ×2 (05:14→12:32)
[2018-10-23] MEDS: SIMETHICONE 80 MG TAB.CHEW GT SCH ×2 (05:14→12:32)
[2018-10-23] MEDS: PROSOURCE / PROSTAT (PYXIS) 30 ML UDC GT SCH ×2 (05:15→12:33)
[2018-10-23] MEDS: INSULIN REGULAR, HUMAN 100 UNIT/ML 3 ML VIAL SQ PRN ×2 (05:27→12:35)
[2018-10-23 06:31] LABS: CALCIUM, SERUM 8.4 mg/dL (8.5-10.1); CARBON DIOXIDE 30 mmol/L (21-32); CHLORIDE 100 mmol/L (98-107); CREATININE 1.7 mg/dL (0.6-1.3); GLUCOSE 135 mg/dL (74-106); POTASSIUM 3.5 mmol/L (3.5-5.1); SODIUM SERUM 137 mmol/L (136-145); UREA NITROGEN, BLOOD 50 mg/dL (7-18)
[2018-10-23 06:51] LABS: BASOPHILS % (AUTO) 0.3 % (0.0-2.0); EOSINOPHILS % (AUTO) 2.9 % (0.0-6.0); HEMATOCRIT 22 % (39-51); LYMPHOCYTES # (AUTO) 1.1 /CMM (0.8-4.8); LYMPHOCYTES % (AUTO) 13.3 % (20.0-44.0); MEAN CORPUSCULAR HGB CONC 33 g/dl (31.0-36.0); MEAN CORPUSCULAR VOLUME 88 fL (80-96); MONOCYTES # (AUTO) 0.8 /CMM (0.1-1.30); MONOCYTES % (AUTO) 8.8 % (2.0-12.0); NEUTROPHILS # (AUTO) 6.4 /CMM (1.8-8.9); NEUTROPHILS % (AUTO) 74.7 % (43.0-81.0); PLATELET COUNT (AUTO) 73 /CMM (150-450); RED BLOOD CELL COUNT(AUTO) 2.44 MIL/uL (4.5-6.0); WHITE BLOOD COUNT (AUTO) 8.6 K/uL (4.3-11.0)
--- NOTE | 2018-10-23 06:52 | NUR ---
PACK ROOM OPERATOR NOTE CALL FROM LAB TO REPORT CRITICAL LAB HGB 7.0, SAME VALUE PREVIOUS LAB DRAW.
[2018-10-23 07:30] LABS: NEUTROPHILS % (MANUAL) 77 (42-76)
--- NOTE | 2018-10-23 07:30 | NUR ---
MIKE NOTE RECEIVED PATIENT FROM ROLL WEIGHER ,AWAKE BUT OBTUNDED, ON TELE MONITOR SR HR 70, WITH VÁSQUEZ CATH TO GRAVITY WITH YELLOW COLOR URINE, ON G TUBE FEEDING AT 20 ML PER HOUR NO RESIDUAL NOTED , WILL F\U TO INCISED FORMULA RATE , HD CATH SITE STILL WITH SEVERE BLEEDING PRESSURE DRESSING APPLIED , ICE PACK APPLIED DR AGUDELO AT BEDSIDE AWARE OF BLEEDING , CALL LIGHT WITHIN REACH , BED IN LOWEST AND LOCKED POSITION Addendum: 10/23/18 at 1121 by MARBELLA HAM RN DISREGARD PREVIOUS CHARTING RN NOTES RECEIVED PATIENT IN BED, OBTUNDED, TRACH TO VENT, BREATHING UNLABORED, TOLERATING CURRENT VENT SETTING, NO SHORTNESS OF BREATH NOTED, SINUS RHYTHM ON THE MONITOR; HR AT 73. NO SIGN OF PAIN NOTED AT THIS TIME. MIDLINE ON THE ANSHU- 2 LUMEN, IN PLACE, PATENT ON FLUSHING, WITH DRESSING C/D/I. WITH FEEDING TUBE OF NEPRO AT 40CC/HR- OFF WHEN RECEIVED DUE TO GASTRIC RESIDUAL. GT IN PLACE AND PATENT, DRESSING C/D/I, PLACEMENT VERIFIED BY AUSCULTATION AND ASPIRATING GASTRIC RESIDUAL, FEEDING TURNED BACK ON DUE TO NO GASTRIC RESIDUAL UPON CHECK. VÁSQUEZ CATHETER IN PLACE DRAINING WELL TO DARK YELLOW URINE VIA GRAVITY, HOB KEPT ELEVATED, SAFETY MEASURES OBSERVED AND MAINTAINED, SIDE RAILS UP, CALL LIGHT PLACED WITHIN REACH, WILL CONTINUE TO MONITOR PATIENT CLOSELY
[2018-10-23 07:31] LABS: BAND % (MANUAL) 4 % (0.0-5.0); EOSINOPHILS % (MANUAL) 3 % (0-4); LYMPHOCYTES % (MANUAL) 10 % (16-48); MONOCYTES % (MANUAL) 4 % (0-11.0); MYELOCYTES % 2 % (0-0)
[2018-10-23 08:00] VITALS: BP 134/78
[2018-10-23] MEDS ORDERED: NYSTATIN TOP POWDER 15 GM BOTTLE TP SCH (09:00)
[2018-10-23] MEDS: LINAGLIPTIN 5 MG TABLET GT SCH (09:22)
[2018-10-23] MEDS: MULTIVIT W/MINERALS 1 TAB TABLET GT SCH (09:23)
[2018-10-23] MEDS: CARVEDILOL 6.25 MG TABLET GT SCH (09:23)
[2018-10-23] MEDS: CHLORHEXIDINE GLUCONATE 15 ML UDC MM SCH (09:23)
[2018-10-23] MEDS: FINASTERIDE (5 MG) 5 MG TABLET GT SCH (09:23)
[2018-10-23] MEDS: PANTOPRAZOLE 40 MG/PACK PACK GT SCH (09:23)
[2018-10-23] MEDS: ACIDOPHILUS/BULGARICUS 1 EACH TAB.CHEW GT SCH (09:23)
[2018-10-23] MEDS: ASCORBIC ACID 500 MG TABLET GT SCH (09:23)
[2018-10-23] MEDS: LACOSAMIDE 50 MG TABLET GT SCH (09:23)
[2018-10-23] MEDS: VITAMINS A AND D 56.7 GM TUBE TP SCH (09:28)
[2018-10-23] MEDS: Z GUARD REMEDY 2 OZ OINT TP SCH (09:28)
[2018-10-23] MEDS: DORZOLAMIDE OPTH 2% 10 ML BOTTLE EACHEYE SCH ×2 (09:29→12:38)
--- NOTE | 2018-10-23 10:18 | NUR ---
WOUND CARE CONSULT WOUND CARE RECEIVED CONSULT FOR SACRAL EXCORIATION. WOUND CARE WILL DEFER CONSULT AND ALL TREATMENT PLANS TO PLASTIC SURGICAL TEAM WHO ARE CURRENTLY FOLLOWING THIS PATIENT. PATIENT WITH CANELO AT 11, ALL PRESSURE ULCER PREVENTION MEASURES ARE NOTED TO BE IN PLACE. WILL SEE PRN.
[2018-10-23 12:00] VITALS: BP 110/62
--- NOTE | 2018-10-23 14:00 | NUR ---
RN NOTES SEEN AND EXAMIONED BY DR LORENZANA WITH ORDERS TO D/C PATIENT. ORDER NOTED AND CARRIED OUT
--- NOTE | 2018-10-23 14:09 | NUR ---
REVIEWED LABS WITH ESPECIALLY HGB. RESULTS PER MD STILL OK TO BE DISCHARGE TODAY.PATIENT CURRENTLY OHD NO ACUTE BLEEDING.
--- NOTE | 2018-10-23 15:00 | NUR ---
RN NOTES PATIENT DIALYZE TODAY. 1300 REMOVED. PATIENT ABLE TO TOLERATE PROCEDURE WELL. NO S/S OF DISTRESS NOTED. WILL CONTINUE TO MONITOR
--- NOTE | 2018-10-23 15:00 | NUR ---
RN NOTES REPORT GIVEN TO BRIGHT SALAZAR.
--- NOTE | 2018-10-23 15:45 | NUR ---
RN NOTES PATIENT DISCHARGE ORDER FACILITATED. PATIENT CLEAN. PHOTOS TAKEN AND FILED. ALL MEDICATION AND DISCHARGE ORDER GIVEN TO JOANIE ON THE REPORT EARLIER. BELONGINGS ACCOUNTED- NO BELONGINGS AT BEDSIDE. PATIENT DISCHARGED WITH ANSHU MIDLINE: TWO LUMEN, IN PLACE AND PATENT ON FLUSHING, DRESSING DRY AND INTACT. PATIENT TRANSPORTED VIA BED TO [facility] UNIT ACCOMPANIED BY THE RN, RT AND CNAS. PACKET WITH THE PATIENT. SON WITH THE PATIENT ON TRANSFER
== END 2018-10-23 15:54 | DRG 314 ==
LOC: TELE-TD 16:24 → TELE1 10-22 14:12
PROVIDERS: ADMIT Nurse Practitioner Acute Care; ATTEND Internal Medicine
PROC: 5A1945Z Respiratory Ventilation, 24-96 Consecutive Hours (ICD-10-PCS; principal; 2018-10-20)
PROC: 30233R1 Transfusion of Nonautologous Platelets into Peripheral Vein, Percutaneous Approach (ICD-10-PCS; 2018-10-21)
PROC: 30233N1 Transfusion of Nonautologous Red Blood Cells into Peripheral Vein, Percutaneous Approach (ICD-10-PCS; 2018-10-21)
PROC: 5A1D70Z Performance of Urinary Filtration, Intermittent, Less than 6 Hours Per Day (ICD-10-PCS; 2018-10-21)
PROC: 5A1D70Z Performance of Urinary Filtration, Intermittent, Less than 6 Hours Per Day (ICD-10-PCS; 2018-10-23)
DX: T82.838A Hemorrhage due to vascular prosthetic devices, implants and grafts, initial encounter (principal); R53.2 Functional quadriplegia; N18.6 End stage renal disease; I13.2 Hypertensive heart and chronic kidney disease with heart failure and with stage 5 chronic kidney disease, or end stage renal disease; D62 Acute posthemorrhagic anemia; J96.11 Chronic respiratory failure with hypoxia; Z99.11 Dependence on respirator [ventilator] status; Y84.8 Other medical procedures as the cause of abnormal reaction of the patient, or of later complication, without mention of misadventure at the time of the procedure; Y92.129 Unspecified place in nursing home as the place of occurrence of the external cause; E11.22 Type 2 diabetes mellitus with diabetic chronic kidney disease; E87.6 Hypokalemia; D63.8 Anemia in other chronic diseases classified elsewhere; D69.6 Thrombocytopenia, unspecified; I25.10 Atherosclerotic heart disease of native coronary artery without angina pectoris; I50.9 Heart failure, unspecified; E78.5 Hyperlipidemia, unspecified; K21.9 Gastro-esophageal reflux disease without esophagitis; F03.90 Unspecified dementia, unspecified severity, without behavioral disturbance, psychotic disturbance, mood disturbance, and anxiety; H40.9 Unspecified glaucoma; Z86.73 Personal history of transient ischemic attack (TIA), and cerebral infarction without residual deficits; Z93.0 Tracheostomy status; Z93.1 Gastrostomy status; Z99.2 Dependence on renal dialysis; R13.10 Dysphagia, unspecified; N40.0 Benign prostatic hyperplasia without lower urinary tract symptoms; L30.4 Erythema intertrigo; F09 Unspecified mental disorder due to known physiological condition; Z87.891 Personal history of nicotine dependence; Z87.01 Personal history of pneumonia (recurrent)
CPT/HCPCS: 31720; 36415; 36569; 80048-TC; 80061-TC; 82962-TC; 84443-TC; 85025-TC; 85027-TC; 86850-TC; 86880-TC; 86921-TC; 90935-TC; 94003-TC; 94760-TC; 94762-TC; A4216; A4623; A6253; A6402; A6403; A7526; C1750; G0378; J1815; J2597; J3480; J3490; J7030; J8597; P9016-BL; P9034-BL

== ENCOUNTER → 2018-11-08 | Day surgery (SDC) | payer MEDICARE, OTHER ==
[~2018-11-08] MED LIST changes: +ANESTHESIA TRAY IN PYXIS 1 EA TRAY MC ONE
== END | disposition home or self-care (01) ==
LOC: DS 11-05 09:50
PROVIDERS: ATTEND Surgery
DX: K29.70 Gastritis, unspecified, without bleeding (principal); D64.9 Anemia, unspecified; Z79.899 Other long term (current) drug therapy
CPT/HCPCS: 43235; J2704

== ENCOUNTER 2019-05-14 10:41 | Inpatient (IN) | payer MEDICARE, OTHER ==
[~2019-05-14] VITALS: Ht 182.9 cm; Wt 71.2 kg
[~2019-05-14 10:41] MED LIST changes: -ANESTHESIA TRAY IN PYXIS 1 EA TRAY MC ONE; +BISA10SU11 RC; -BISA10SU8 RC
--- NOTE | 2019-05-14 10:53 | NUR ---
PT BIB PA FOR DIALYSIS CATH MALFUNCTION. PER REPORT, FINISHED DIALYSIS TODAY, PT IS AAOX0, NOT IN RESPIRATORY DISTRESS, HOOKED TO MONITOR, KEPT RESTED AND COMFORTABLE, WILL CONTINUE TO MONITOR.
--- NOTE | 2019-05-14 11:15 | NUR ---
SEEN AND EXAMINED BY .
--- NOTE | 2019-05-14 11:20 | NUR ---
IV LINE ESTABLISHED, BLOOD DRAWNED AND SENT TO LAB.
[2019-05-14 11:27] LABS: BASOPHILS % (AUTO) 0.4 % (0.0-2.0); EOSINOPHILS % (AUTO) 1.3 % (0.0-6.0); HEMATOCRIT 37 % (39-51); HEMOGLOBIN 11.8 g/dL (13.5-17.5); LYMPHOCYTES # (AUTO) 0.9 /CMM (0.8-4.8); LYMPHOCYTES % (AUTO) 8.6 % (20.0-44.0); MEAN CORPUSCULAR HGB CONC 32 g/dl (31.0-36.0); MEAN CORPUSCULAR VOLUME 100 fL (80-96); MONOCYTES # (AUTO) 0.9 /CMM (0.1-1.30); MONOCYTES % (AUTO) 9.2 % (2.0-12.0); NEUTROPHILS # (AUTO) 8.3 /CMM (1.8-8.9); NEUTROPHILS % (AUTO) 80.5 % (43.0-81.0); PLATELET COUNT (AUTO) 291 /CMM (150-450); RED BLOOD CELL COUNT(AUTO) 3.71 MIL/uL (4.5-6.0); WHITE BLOOD COUNT (AUTO) 10.3 K/uL (4.3-11.0)
[2019-05-14 11:39] LABS: CALCIUM, SERUM 9.6 mg/dL (8.5-10.1); CARBON DIOXIDE 28 mmol/L (21-32); CHLORIDE 93 mmol/L (98-107); CREATININE 4.8 mg/dL (0.6-1.3); GLUCOSE 172 mg/dL (74-106); POTASSIUM 5.1 mmol/L (3.5-5.1); SODIUM SERUM 132 mmol/L (136-145); UREA NITROGEN, BLOOD 70 mg/dL (7-18)
--- NOTE | 2019-05-14 11:40 | NUR ---
FUR DRESSING SUPERVISOR AT BEDSIDE FOR XRAY
--- NOTE | 2019-05-14 12:22 | NUR ---
[facility] PAGED
--- NOTE | 2019-05-14 12:40 | NUR ---
KEN BATISTA DNP AT BEDSIDE FOR EVAL.
--- NOTE | 2019-05-14 13:15 | NUR ---
REPORT GIVEN TO BRIGHT FARFAN FOR ERNST.
[2019-05-14] MEDS ORDERED: HYDROCODONE/APAP 5/325MG 1 EACH TABLET GT PRN (13:30)
[2019-05-14] MEDS ORDERED: MAG HYDROX/AL HYDROX/SIMETH 30 ML UDC PO PRN (13:30)
[2019-05-14] MEDS ORDERED: MORPHINE SULFATE INJ 2 MG/ML DISP.SYRIN IV PRN (13:30)
[2019-05-14] MEDS ORDERED: ONDANSETRON HCL/PF 4 MG/2 ML VIAL IVP PRN (13:30)
[2019-05-14] MEDS ORDERED: TEMAZEPAM 15 MG CAPSULE PO PRN (13:30)
[2019-05-14] MEDS ORDERED: ACETAMINOPHEN 325 MG TABLET PO PRN (13:30)
[2019-05-14] MEDS ORDERED: MAGNESIUM HYDROXIDE 30 ML UDC PO PRN (13:30)
[2019-05-14 13:45] VITALS: BP 139/83
--- NOTE | 2019-05-14 13:45 | NUR ---
RN NOTE: RECEIVED PATIENT IN BED. RESPONSIVE TO TACTILE STIMULI AND CAN SPONTANEOUSLY OPEN EYES. PATIENT WAS TRANSFERRED FROM [facility] TO BED IN ROOM 117-1. AFEBRILE. RESPIRATION IS EVEN AND UNLABORED. SATURATING 100% WITH COOL AEROSOL 5 LPM FIO2 IS 28%. NO S/S OF PAIN. NO FACIAL GRIMACING OR MOANING. SKIN WARM TO TOUCH. PATIENT NOTED WITH MULTIPLE SKIN ISSUES. LEFT UPPER CHEST TREMAYNE CATHETER NOTED IN PLACE. GT SITE NOTED PATENT, INTACT, AND CLAMPED. LEFT HAND 20 G IV SITE IN PLACE, PATENT AND INTACT. PATIENT WAS PLACED ON ISOFLEX MATTRESS FOR WOUND/SKIN MANAGEMENT. TOOK PICTURES OF THE MULTIPLE SKIN ISSUES AND FILED TO PATIENT'S CHART. WOUND DRESSING CHANGED. PATIENT TOLERATED WELL. WILL INFORM ADMITTING DOCTOR KEN BATISTA REGARDING PATIENT ADMISSION AND FOR ADMITTING ORDERS. VITAL SIGNS ARE STABLE. BED ALARMED AND LOCKED AT ALL TIMES. HOB ELEVATED. CALL LIGHT WITHIN REACH. WILL CONT. TO MONITOR.
[2019-05-14] MEDS ORDERED: DEXTROSE 50%-WATER 50 ML DISP.SYRIN IV PRN (14:00)
--- NOTE | 2019-05-14 15:00 | NUR ---
RN NOTE: JADA STOLL (SON) AT BEDSIDE AND GAVE AN UPDATE REGARDING PATIENT'S CONDITION. SON CONSENTED FOR HEMODIALYSIS AND SIGNED POLST FOR DNR. DR. KEN BATISTA MADE AWARE.
[2019-05-14 16:00] VITALS: BP 167/83
[2019-05-14] MEDS: PROSOURCE / PROSTAT (PYXIS) 30 ML UDC GT SCH (16:20)
[2019-05-14] MEDS: NEPRO 1,000 ML BOTTLE GT PRN (16:40)
[2019-05-14] MEDS: BLOOD SUGAR DIAGNOSTIC 1 EACH STRIP IN SCH ×2 (18:30→23:30)
[2019-05-14] MEDS: INSULIN REGULAR, HUMAN 100 UNIT/ML 3 ML VIAL SQ PRN ×2 (18:35→23:32)
--- NOTE | 2019-05-14 19:35 | NUR ---
RN NOTES, PATIENT ENDORSE FROM BRIGHT FARFAN FOR CONTINUATION OF CARE, PATIENT WITH T-PIECE IN COOL AEROSOL, WITH TRACH, TOLERATED WELL WITH OPTIMAL O2 SAT LEVEL, SON AT BEDSIDE AT THIS TIME, GT IN PLACED PATENT AND INTACT, FEEDING INFUSING WELL AND PATIENT TOLERATED WELL, DRY AND CLEAN AND WELL REPOSITIONED AT THIS TIME, 2 1/2 S/R OF BED UP, WILL CONTINUE TO MONITOR CLOSELY.
[2019-05-14 20:00] VITALS: BP 143/85
--- NOTE | 2019-05-14 20:00 | NUR ---
BEDSIDE REPORT GIVEN TO PM SHIFT NURSE FOR CONTINUITY OF CARE. PATIENT ON GT FEEDING ON NEPHRO RUNNING AT 40 CC/HR AND TOLERATING WELL. HOB ELEVATED. ON ASPIRATION PRECAUTION. PATIENT HAD NO BM DURING SHIFT. PATIENT'S CONDITION WNL.
[2019-05-14] MEDS ORDERED: Z GUARD REMEDY 2 OZ OINT TP PRN (21:00)
[2019-05-15 04:00] VITALS: BP 133/74
[2019-05-15] MEDS: BLOOD SUGAR DIAGNOSTIC 1 EACH STRIP IN SCH ×3 (05:45→17:16)
[2019-05-15] MEDS: INSULIN REGULAR, HUMAN 100 UNIT/ML 3 ML VIAL SQ PRN ×4 (05:51→17:20)
--- NOTE | 2019-05-15 07:00 | NUR ---
RN NOTES, NO SIGNIFICANT CHANGE IN CONDITION DURING THE NIGHT, REMAINED WITH STABLE VITAL SINGS, NO DISTRESS NOTED, WOULD CONSULT TODAY.
--- NOTE | 2019-05-15 07:00 | NUR ---
RN NOTES RECEIVED PT ON BED, OBTUNDED , TRACH DEPENDENT, ON COOL AEROSOL, FIO2 A 28%, NEPRO AT 40CC/HR RUNNING VIA GT , TOLERATING WELL, NO RESIDUAL NOTED, L HAND IV SITE G20 CLEAN, DRY AND INTACT, SR UP x3, CALL LIGHT WITHIN EASY REACH, BED LOCKED AND IN LOWEST POSITION, CONTINUE TO MONITOR.
[2019-05-15 07:05] LABS: BASOPHILS % (AUTO) 0.2 % (0.0-2.0); HEMATOCRIT 35 % (39-51); HEMOGLOBIN 11.1 g/dL (13.5-17.5); LYMPHOCYTES # (AUTO) 1.3 /CMM (0.8-4.8); LYMPHOCYTES % (AUTO) 12.4 % (20.0-44.0); MEAN CORPUSCULAR HGB CONC 32 g/dl (31.0-36.0); MEAN CORPUSCULAR VOLUME 100 fL (80-96); MONOCYTES # (AUTO) 0.9 /CMM (0.1-1.30); NEUTROPHILS # (AUTO) 7.9 /CMM (1.8-8.9); NEUTROPHILS % (AUTO) 75.4 % (43.0-81.0); PLATELET COUNT (AUTO) 227 /CMM (150-450); RED BLOOD CELL COUNT(AUTO) 3.51 MIL/uL (4.5-6.0); WHITE BLOOD COUNT (AUTO) 10.5 K/uL (4.3-11.0)
[2019-05-15 08:00] VITALS: BP 152/78
[2019-05-15 09:04] LABS: BAND % (MANUAL) 9 % (0.0-5.0); EOSINOPHILS % (MANUAL) 3 % (0-4); LYMPHOCYTES % (MANUAL) 14 % (16-48); MONOCYTES % (MANUAL) 5 % (0-11.0); MYELOCYTES % 1 % (0-0); NEUTROPHILS % (MANUAL) 68 (42-76)
[2019-05-15] MEDS: PROSOURCE / PROSTAT (PYXIS) 30 ML UDC GT SCH ×3 (09:09→16:26)
[2019-05-15 09:42] LABS: CALCIUM, SERUM 9.4 mg/dL (8.5-10.1); CARBON DIOXIDE 23 mmol/L (21-32); CHLORIDE 92 mmol/L (98-107); CREATININE 6.2 mg/dL (0.6-1.3); GLUCOSE 252 mg/dL (74-106); MAGNESIUM 2.4 mg/dL (1.8-2.4); PHOSPHORUS 4.9 mg/dL (2.5-4.9); POTASSIUM 4.7 mmol/L (3.5-5.1); SODIUM SERUM 132 mmol/L (136-145)
[2019-05-15 09:44] LABS: UREA NITROGEN, BLOOD 93 mg/dL (7-18)
[2019-05-15] MEDS: NEPRO 1,000 ML BOTTLE GT PRN (15:31)
--- NOTE | 2019-05-15 15:45 | NUR ---
RN NOTES KEN RETORT FIREMAN NOTIFED REGARDING MED RECON.
[2019-05-15 16:00] VITALS: BP 146/76
[2019-05-15] MEDS: PIPERACILLIN /TAZOBACTAM 2.25 G in IV D5W 50 ML IV SCH (16:25)
[2019-05-15] MEDS ORDERED: ALBUTEROL FS 2.5 MG/3 ML VIAL.NEB IH PRN (17:00)
[2019-05-15] MEDS ORDERED: BISACODYL SUPP (10 MG) 10 MG/SUPP.RECT SUPP.RECT RC PRN (17:00)
[2019-05-15] MEDS ORDERED: IPRATROPIUM NEB FS 0.5 MG/2.5 ML AMPUL.NEB IH PRN (17:00)
[2019-05-15] MEDS: SIMETHICONE 80 MG TAB.CHEW GT SCH (17:17)
[2019-05-15] MEDS ORDERED: BLOOD SUGAR DIAGNOSTIC 1 EACH STRIP IN SCH (18:00)
--- NOTE | 2019-05-15 18:00 | NUR ---
RN NOTES CONSENT FOR HD CATH PLACEMENT OBTAINED FORM PT'S SON .PT STABLE, NO SIGNIFICANT CHANGES NOTED ON THIS SHIFT, WILL ENDORSE TO DEPUTY SHERIFF GENERALIST NURSE FOR CONTINUITY OF CARE.
[2019-05-15] MEDS ORDERED: METO25TA6 GT (18:37)
[2019-05-15] MEDS ORDERED: HYDR-4076 PO (18:37)
[2019-05-15] MEDS ORDERED: INSU100V7 SQ (18:37)
[2019-05-15] MEDS ORDERED: ACET-73 PO (18:37)
[2019-05-15] MEDS ORDERED: LACO10SO GT (18:37)
[2019-05-15] MEDS ORDERED: ONDA4TAB5 GT (18:37)
--- NOTE | 2019-05-15 18:45 | NUR ---
RN NOTES EYE GTT IS NOT AVAILABLE FROM PHARMACY YET , PHARMACY NOTIFED
--- NOTE | 2019-05-15 19:10 | NUR ---
MS RN OPENING NOTES RECEIVED PATIENT IN BED, OBTUNDED, OPENS EYES. TRACH DEPENDENT, ON COOL AEROSOL, FIO2 28%, SATURATING 97%, NO SOB OR RESPIRATORY DISTRESS NOTED. IV SITE LEFT HAND 20G, FLUSHING AND PATENT, SITE C/D/I. GTUBE FEEDING RUNNING AT 40ML/HR, NO RESIDUAL NOTED. SAFETY MEASURES MAINTAINED; SIDE RAILS UP X3, CALL LIGHT WITHIN EASY REACH, BED LOCKED AND IN LOWEST POSITION, HOB ELEVATED AT ALL TIMES. WILL CONTINUE TO MONITOR.
[2019-05-15] MEDS: DORZOLAMIDE OPTH 2% 10 ML BOTTLE EACHEYE SCH (19:51)
[2019-05-15 20:00] VITALS: BP 148/90
[2019-05-15] MEDS ORDERED: LACOSAMIDE ORAL SOLN 50 MG/5 ML UDC GT SCH (21:00)
[2019-05-15] MEDS: Z GUARD REMEDY 2 OZ OINT TP SCH (21:00)
[2019-05-15] MEDS: ESOMEPRAZOLE MAGNESIUM 40 MG SUSPDR.PKT GT SCH (21:56)
[2019-05-15] MEDS: METOCLOPRAMIDE HCL 10 MG/10 ML UDC GT SCH (21:56)
[2019-05-15] MEDS: TAMSULOSIN 0.4 MG CAP.SR.24H GT SCH (21:57)
[2019-05-15] MEDS: ATORVASTATIN 40 MG TABLET GT SCH (21:57)
[2019-05-15] MEDS: CHLORHEXIDINE GLUCONATE 15 ML UDC MM SCH (21:57)
[2019-05-15] MEDS: CARVEDILOL 6.25 MG TABLET GT SCH (21:58)
[2019-05-15] MEDS: LATANOPROST EYE DROP 0.005% 2.5 ML BOTTLE EACHEYE SCH (22:02)
[2019-05-16] MEDS: SIMETHICONE 80 MG TAB.CHEW GT SCH ×4 (00:14→17:42)
[2019-05-16] MEDS: PIPERACILLIN /TAZOBACTAM 2.25 G in IV D5W 50 ML IV SCH ×3 (00:14→17:42)
[2019-05-16] MEDS: BLOOD SUGAR DIAGNOSTIC 1 EACH STRIP IN SCH ×4 (00:27→17:43)
[2019-05-16] MEDS: INSULIN REGULAR, HUMAN 100 UNIT/ML 3 ML VIAL SQ PRN ×4 (00:46→19:08)
[2019-05-16] MEDS: METOCLOPRAMIDE HCL 10 MG/10 ML UDC GT SCH ×3 (05:00→23:40)
--- NOTE | 2019-05-16 07:08 | NUR ---
MS RN CLOSING NOTES PATIENT IN BED, OBTUNDED, OPENS EYES. KEPT PT NPO SINCE MIDNIGHT PER MD ORDER. ALL MD ORDERS ATTENDED, ALL NEEDS ANTICIPATED AND MET. REPOSITIONED Q2H. SWITCHED PATIENT BED FROM ISOFLEX TO [facility]. PATIENT IS TRACH DEPENDENT, ON COOL AEROSOL, FIO2 28%, NO SOB OR RESPIRATORY DISTRESS NOTED. IV SITE LEFT HAND 20G, FLUSHING AND PATENT, SITE C/D/I. GTUBE FLUSHING AND PATENT, CLAMPED. SAFETY MEASURES MAINTAINED; SIDE RAILS UP X3, CALL LIGHT WITHIN EASY REACH, BED LOCKED AND IN LOWEST POSITION, HOB ELEVATED AT ALL TIMES. WILL CONTINUE TO MONITOR. WILL ENDORSE TO AM RN FOR ERNST.
[2019-05-16 07:14] LABS: BASOPHILS % (AUTO) 0.2 % (0.0-2.0); EOSINOPHILS % (AUTO) 4.3 % (0.0-6.0); HEMATOCRIT 35 % (39-51); HEMOGLOBIN 10.9 g/dL (13.5-17.5); LYMPHOCYTES # (AUTO) 1.6 /CMM (0.8-4.8); LYMPHOCYTES % (AUTO) 13.2 % (20.0-44.0); MEAN CORPUSCULAR HGB CONC 31 g/dl (31.0-36.0); MEAN CORPUSCULAR VOLUME 99 fL (80-96); MONOCYTES % (AUTO) 8.9 % (2.0-12.0); NEUTROPHILS # (AUTO) 8.6 /CMM (1.8-8.9); NEUTROPHILS % (AUTO) 73.4 % (43.0-81.0); PLATELET COUNT (AUTO) 233 /CMM (150-450); RED BLOOD CELL COUNT(AUTO) 3.54 MIL/uL (4.5-6.0); WHITE BLOOD COUNT (AUTO) 11.8 K/uL (4.3-11.0)
--- NOTE | 2019-05-16 07:40 | NUR ---
WOUND CARE CONSULT WOUND CARE RECEIVED CONSULT FOR MULTIPLE WOUNDS. WOUND CARE WILL DEFER CONSULT AND ALL TREATMENT PLANS TO PLASTIC SURGICAL TEAM INCLUDING DPM DR REYES WHO ARE ALL FOLLOWING THIS PATIENT. PATIENT WITH CANELO AT 10, ALL PRESSURE ULCER PREVENTION MEASURES ARE NOTED TO BE IN PLACE. WILL SEE PRN.
[2019-05-16 07:44] LABS: CALCIUM, SERUM 9.4 mg/dL (8.5-10.1); CARBON DIOXIDE 24 mmol/L (21-32); CHLORIDE 91 mmol/L (98-107); CREATININE 7.1 mg/dL (0.6-1.3); GLUCOSE 201 mg/dL (74-106); POTASSIUM 4.8 mmol/L (3.5-5.1); SODIUM SERUM 131 mmol/L (136-145)
[2019-05-16 07:45] LABS: UREA NITROGEN, BLOOD 118 mg/dL (7-18)
[2019-05-16 08:00] VITALS: BP 129/76
[2019-05-16] MEDS: MULTIVIT W/MINERALS 1 TAB TABLET GT SCH (09:00)
[2019-05-16] MEDS: FINASTERIDE (5 MG) 5 MG TABLET GT SCH (09:00)
[2019-05-16] MEDS: PROSOURCE / PROSTAT (PYXIS) 30 ML UDC GT SCH (09:00)
[2019-05-16] MEDS: ASCORBIC ACID 500 MG TABLET NG SCH (09:00)
[2019-05-16] MEDS: ESOMEPRAZOLE MAGNESIUM 40 MG SUSPDR.PKT GT SCH ×2 (09:00→23:41)
[2019-05-16] MEDS: ACIDOPHILUS/BULGARICUS 1 EACH TAB.CHEW GT SCH (09:00)
[2019-05-16] MEDS: LINAGLIPTIN 5 MG TABLET GT SCH (09:00)
[2019-05-16] MEDS: DORZOLAMIDE OPTH 2% 10 ML BOTTLE EACHEYE SCH ×3 (09:33→17:42)
[2019-05-16] MEDS: CHLORHEXIDINE GLUCONATE 15 ML UDC MM SCH ×2 (09:33→23:40)
[2019-05-16] MEDS: VITAMINS A AND D 56.7 GM TUBE TP SCH (09:34)
[2019-05-16] MEDS: CADEXOMER IODINE 40 GM TUBE TP SCH (09:34)
[2019-05-16] MEDS: Z GUARD REMEDY 2 OZ OINT TP SCH ×2 (09:34→23:40)
[2019-05-16] MEDS: MUPIROCIN OINT 2% 22 GM TUBE SCH ×2 (09:45→23:43)
[2019-05-16] MEDS: CARVEDILOL 6.25 MG TABLET GT SCH (09:46)
[2019-05-16] MEDS: LACOSAMIDE ORAL SOLN 50 MG/5 ML UDC GT SCH ×2 (10:34→23:41)
[2019-05-16 12:00] VITALS: BP 136/68
--- NOTE | 2019-05-16 15:45 | NUR ---
RN NOTE PT HAD HEART RATE DROPPED TO 38-37 BPM, BLOOD PRESSURE 113/72, HE ORDERED TO D/C COREG. AWAITING FOR SURGERY.
[2019-05-16] MEDS ORDERED: FENTANYL PF 100MCG/2ML AMPUL ONE (15:53)
[2019-05-16 16:00] VITALS: BP 113/72
--- NOTE | 2019-05-16 16:25 | NUR ---
RN NOTE OPERATING ROOM NURSE MADE AWARE ABOUT HR DROPPING TO 37, AT THE TIME OF MANAGER RISK MANAGEMENT FOR SURGERY. SHE SAID SHE WILL LET KNOW ANESTHESIOLOGIST.
[2019-05-16] MEDS ORDERED: LIDOCAINE HCL/MPF 1% 30 ML VIAL IJ ONE (16:27)
[2019-05-16] MEDS ORDERED: HEPARIN SODIUM, PORCINE 1,000 UNIT/ML VIAL ONE (16:27)
--- NOTE | 2019-05-16 17:15 | NUR ---
RN NOTE PT ARRIVED FROM OR, IN STABLE CONDITION, VS STABLE, NO FEVER, PT HAS R CHEST WALL/IJ PERMACATH BY DR LIVINGSTON. WILL RESUME ORDERS AND MONITOR.
[2019-05-16 17:30] VITALS: BP 118/68
[2019-05-16] MEDS: NEPRO 1,000 ML BOTTLE GT PRN (18:33)
--- NOTE | 2019-05-16 19:20 | NUR ---
MS RN OPENING NOTES RECEIVED PATIENT IN BED, OBTUNDED, OPENS EYES. FAMILY AT BEDSIDE. TRACH DEPENDENT, ON COOL AEROSOL, FIO2 28%, SATURATING 100%, NO SOB OR RESPIRATORY DISTRESS NOTED. IV SITE LEFT HAND 20G, FLUSHING AND PATENT, SITE C/D/I. RIGHT CHEST WALL HD CATH NOTED IN PLACE, SITE C/D/I. GTUBE FEEDING RUNNING AT 40ML/HR, 90ML RESIDUAL NOTED, WILL CONT TO MONITOR CLOSELY. SAFETY MEASURES MAINTAINED; SIDE RAILS UP X2, CALL LIGHT WITHIN EASY REACH, BED LOCKED AND IN LOWEST POSITION, HOB ELEVATED AT ALL TIMES. WILL CONTINUE TO MONITOR.
[2019-05-16 20:00] VITALS: BP 104/44
--- NOTE | 2019-05-16 20:25 | NUR ---
RN NOTES HD NURSE AT BEDSIDE. WILL HOLD MEDICATIONS DUE FOR NOW.
--- NOTE | 2019-05-16 23:32 | NUR ---
RN NOTES PATIENT S/P HD. PATIENT STABLE. WILL ADMINISTER HELD MEDICATIONS.
[2019-05-16] MEDS: ATORVASTATIN 40 MG TABLET GT SCH (23:40)
[2019-05-16] MEDS: TAMSULOSIN 0.4 MG CAP.SR.24H GT SCH (23:40)
[2019-05-16] MEDS: LATANOPROST EYE DROP 0.005% 2.5 ML BOTTLE EACHEYE SCH (23:42)
[2019-05-17] MEDS: BLOOD SUGAR DIAGNOSTIC 1 EACH STRIP IN SCH ×4 (00:14→17:29)
[2019-05-17] MEDS: SIMETHICONE 80 MG TAB.CHEW GT SCH ×5 (00:15→17:48)
[2019-05-17] MEDS: INSULIN REGULAR, HUMAN 100 UNIT/ML 3 ML VIAL SQ PRN ×3 (00:17→17:39)
[2019-05-17] MEDS: PIPERACILLIN /TAZOBACTAM 2.25 G in IV D5W 50 ML IV SCH ×2 (00:25→07:59)
[2019-05-17] MEDS: METOCLOPRAMIDE HCL 10 MG/10 ML UDC GT SCH ×3 (05:18→20:55)
[2019-05-17 06:56] LABS: CARBON DIOXIDE 25 mmol/L (21-32); CHLORIDE 98 mmol/L (98-107); CREATININE 5.7 mg/dL (0.6-1.3); GLUCOSE 283 mg/dL (74-106); POTASSIUM 4.8 mmol/L (3.5-5.1); SODIUM SERUM 137 mmol/L (136-145)
[2019-05-17 07:03] LABS: UREA NITROGEN, BLOOD 82 mg/dL (7-18)
--- NOTE | 2019-05-17 07:19 | NUR ---
MS RN CLOSING NOTES PATIENT IN BED, OBTUNDED, OPENS EYES. NO ACUTE CHANGES THROUGHOUT SHIFT. ALL MD ORDERS ATTENDED. TRACH DEPENDENT, ON COOL AEROSOL, 5LPM, FIO2 28%, CURRENTLY SATURATING 100%, NO SOB OR RESPIRATORY/CARDIAC DISTRESS NOTED. IV SITE LEFT HAND 20G, FLUSHING AND PATENT, SITE C/D/I. RIGHT CHEST WALL HD CATH NOTED IN PLACE, SITE C/D/I. GTUBE FEEDING RUNNING AT 40ML/HR, MINIMAL RESIDUAL NOTED. REPOSITIONED Q2H. SAFETY MEASURES MAINTAINED; SIDE RAILS UP X2, CALL LIGHT WITHIN EASY REACH, BED LOCKED AND IN LOWEST POSITION, HOB ELEVATED AT ALL TIMES. ENDORSED TO AM RN FOR ERNST.
[2019-05-17 08:00] VITALS: BP 110/62
[2019-05-17] MEDS: VITAMINS A AND D 56.7 GM TUBE TP SCH (09:00)
[2019-05-17] MEDS: LINAGLIPTIN 5 MG TABLET GT SCH (09:00)
[2019-05-17] MEDS: MUPIROCIN OINT 2% 22 GM TUBE SCH ×2 (09:00→20:59)
[2019-05-17] MEDS: CADEXOMER IODINE 40 GM TUBE TP SCH (09:00)
[2019-05-17] MEDS: Z GUARD REMEDY 2 OZ OINT TP SCH ×2 (09:00→21:02)
[2019-05-17] MEDS: DORZOLAMIDE OPTH 2% 10 ML BOTTLE EACHEYE SCH ×3 (09:00→17:29)
[2019-05-17] MEDS: MULTIVIT W/MINERALS 1 TAB TABLET GT SCH (10:08)
[2019-05-17] MEDS: FINASTERIDE (5 MG) 5 MG TABLET GT SCH (10:08)
[2019-05-17] MEDS: ACIDOPHILUS/BULGARICUS 1 EACH TAB.CHEW GT SCH (10:09)
[2019-05-17] MEDS: ESOMEPRAZOLE MAGNESIUM 40 MG SUSPDR.PKT GT SCH ×2 (10:09→21:58)
[2019-05-17] MEDS: ASCORBIC ACID 500 MG TABLET NG SCH (10:09)
[2019-05-17] MEDS: PROSOURCE / PROSTAT (PYXIS) 30 ML UDC GT SCH (10:10)
[2019-05-17] MEDS: DOXYCYCLINE HYCLATE (100 MG) 100 MG TABLET GT SCH ×2 (10:19→21:00)
[2019-05-17] MEDS: CHLORHEXIDINE GLUCONATE 15 ML UDC MM SCH ×2 (10:19→20:58)
--- NOTE | 2019-05-17 10:30 | NUR ---
RT NOTE Code blue called due to seizure and apnea. Acls protocol started and patient placed on ventilator per attending MD. Vent is plugged into red outlet w alarms set and audible. Pt velma is secure and patent. Pari and duncan carreon @ [employer]. Will continue to monitor. Addendum: 05/17/19 at 1122 by ADAMARIS ALCANTAR RT Amended: Links added.
--- NOTE | 2019-05-17 10:30 | NUR ---
ARC AND GAS WELDER NOTES SN SUCTIONING PATIENT THEN HAD SEIZURE THEN STOPPED BREATHING, UNRESPONSIVE, NO PULSE 1026 - ACTIVATED CODE BLUE, COMPRESSION STARTED WHILE WAITING FOR TEAM TO ARRIVE. DR. BOOGIE AND CODE TEAM AT BEDSIDE. PT WITH ROSC UPON ARRIVAL OF KEN BATISTA NP. SUSTAINABLE PRODUCTS MARKETING MANAGER ORDERED VENT SUPPORT. STAT EKG, TRANSFER TO [facility] STATUS. DR. ZULUAGA NOTIFIED BY SUSTAINABLE PRODUCTS MARKETING MANAGER FOR CARDIAC CONSULT. 1028 - CODE BLUE ENDED. PATIENT IS CURRENTLY FULL CODE X 24 HOURS POST OP UNTIL 1700 TODAY THEN RESUME DNR STATUS. JADA - PT'S SON NOTIFIED AND SUSTAINABLE PRODUCTS MARKETING MANAGER TALKING TO HIM RE PT'S UPDATE. Addendum: 05/17/19 at 1312 by HOWARD TOMAS RN ADDENDUM PATIENT'S BLOOD SUGAR AT 1026 - 251 MG/DL. PRESENT AT CODE BLUE : DR. BOOGIE, KEN BATISTA SUSTAINABLE PRODUCTS MARKETING MANAGER, PHILIP RN HEADWAITRESS, HOWARD YEAGER CHARGE NURSE, FELICIANO ICU CHARGE NURSE, SHRAVAN PRIMARY NURSE, DAGOBERTO RESPIRATORY THERAPIST, [facility] PHARMACIST, SERGEY [SHOBHA RN], RUSSEL [SHOBHA RN], MARIA TERESA [SHOBHA RN] AND SULMA [SHOBHA RN]
--- NOTE | 2019-05-17 10:55 | NUR ---
ICU/RN: YOANA GARCIA WILDLIFE ECOLOGY PROFESSOR responded to yoana garcia; Dr Borges and code team at bedside. Pt with ROSC upon arrival of Jose C Jane NP. Care endorsed by ER MD to attending. CORPORATE ASSOCIATE ATTORNEY orders vent support, stat EKG, transfer to [facility] status. Dr Mcknight notified by CORPORATE ASSOCIATE ATTORNEY for cardiology consult. Pt currently full code x24hrs post-op; to resume DNR status at 1700 today, 05/17/19. Cecille, reproduction order processor to notify family of change in patient status.
--- NOTE | 2019-05-17 11:00 | NUR ---
RN NOTE PT HAS LEAKING G TUBE, TUBE FEEDING ON HOLD. GI DOUGH PUNCHER MARGARITA WOODARD NOTIFIED, SHE WILL THE PATIENT.
--- NOTE | 2019-05-17 11:50 | NUR ---
JESSI SPOKE WITH LIMA, ANSWERING SERVICE FOR DR ADAN TO LET DR ADAN KNOW ABOUT NEURO CONSULT FOR PT S/P SEIZURE ACTIVITY. NO CALL BACK YET FROM DR ADAN.
[2019-05-17 12:00] VITALS: BP 150/86
[2019-05-17] MEDS ORDERED: LACOSAMIDE 50 MG TABLET GT SCH (12:00)
[2019-05-17] MEDS ORDERED: NIACIN 100 MG TABLET GT SCH (12:00)
[2019-05-17] MEDS ORDERED: LACOSAMIDE ORAL SOLN 50 MG/5 ML UDC GT SCH (13:00)
--- NOTE | 2019-05-17 13:10 | NUR ---
CHETAN FUNES PT HAD HD TODAY, ENDED NOW. NO OUTPUT. PT TOLERATED WELL.
[2019-05-17] MEDS: predniSONE 1 MG TABLET GT SCH (13:36)
[2019-05-17] MEDS: predniSONE 5 MG TABLET GT SCH (13:37)
[2019-05-17] MEDS: predniSONE 20 MG TABLET GT SCH (13:37)
--- NOTE | 2019-05-17 13:53 | NUR ---
RN NOTE INSULIN NON ADMINISTERED SINCE TUBE FEEDING ON HOLD, BG 183MG/DL, DUE TO LEAKAGE FROM SITE
[2019-05-17 16:00] VITALS: BP 147/75
--- NOTE | 2019-05-17 17:11 | NUR ---
RT NOTE Pt received on cool aerosol w Jaz #6 trach and placed on [facility] vent per attending . Vent is plugged into red outlet w alarms set and audible. Bmv and spare trach @ hob. Pt is stable. Will continue to monitor. Addendum: 05/17/19 at 1833 by ADAMARIS ALCANTAR RT Amended: Links added.
[2019-05-17] MEDS ORDERED: LORAZEPAM INJ 2 MG/ML VIAL IV PRN (17:30)
[2019-05-17] MEDS: NEPRO 1,000 ML BOTTLE GT PRN (17:31)
[2019-05-17] MEDS ORDERED: IV D5/0.45 NACL 1,000 ML IV ONE (19:30)
[2019-05-17 20:00] VITALS: BP 152/72
[2019-05-17] MEDS: LACOSAMIDE ORAL SOLN 50 MG/5 ML UDC GT SCH (21:00)
[2019-05-17] MEDS: LATANOPROST EYE DROP 0.005% 2.5 ML BOTTLE EACHEYE SCH (21:02)
[2019-05-17] MEDS: NYSTATIN/TRIAMCIN CREAM 15 GM TUBE TP SCH (21:57)
[2019-05-17] MEDS: TAMSULOSIN 0.4 MG CAP.SR.24H GT SCH (22:00)
[2019-05-17] MEDS: ATORVASTATIN 40 MG TABLET GT SCH (22:00)
--- NOTE | 2019-05-17 22:17 | NUR ---
RN NOTES RECEIVED PATIENT IN BED WITH NO APPARENT DISTRESS. BREATHING EVEN AND UNLABORED. NO PHYSICAL MANIFESTATION OF PAIN OR DISCOMFORT. VENT SETTING WELL TOLERATED. PHARMACIST HANDED OVER 100MG VIMPAT. ORDERED WAS FOR 150MG, CALLED MD AND ORDERED TO HOLD 150MG DOSE FOR THE NIGHT, AND INSTEAD GIVE 100MG. NOTED AND CARRIED OUT. PACKAGING OPERATOR, CHARGE NURSE AWARE.
[2019-05-17] MEDS ORDERED: LACOSAMIDE ORAL SOLN 50 MG/5 ML UDC PO SCH (22:30)
[2019-05-18] VITALS: BP 169/89
[2019-05-18] MEDS: BLOOD SUGAR DIAGNOSTIC 1 EACH STRIP IN SCH ×4 (00:05→18:02)
[2019-05-18] MEDS: INSULIN REGULAR, HUMAN 100 UNIT/ML 3 ML VIAL SQ PRN ×3 (00:05→12:24)
[2019-05-18] MEDS: SIMETHICONE 80 MG TAB.CHEW GT SCH ×4 (00:05→17:41)
[2019-05-18 04:00] VITALS: BP 161/69
[2019-05-18] MEDS: METOCLOPRAMIDE HCL 10 MG/10 ML UDC GT SCH ×2 (05:15→12:19)
--- NOTE | 2019-05-18 06:28 | NUR ---
RT PATIENT WAS RECEIVED ON CONTINUOUS VENT SUPPORT ON NOTED VENT SETTINGS. PATIENT STABLE THROUGHOUT THE SHIFT.AIRWAY PATENT AND SECURED. WILL CONTINUE TO MONITOR. Addendum: 05/18/19 at 0631 by ABEBA SUAREZ RT Amended: Links added.
--- NOTE | 2019-05-18 07:56 | NUR ---
RT Pt received trached on the vent with noted settings. Pt is awake but does not follow commands. Vent alarms are set and plugged into red outlet. No SOB or respiratory distress noted at this time. Addendum: 05/18/19 at 1007 by MARCELO KENNEDY RT Amended: Links added.
[2019-05-18 08:00] VITALS: BP 118/61
[2019-05-18] MEDS: LACOSAMIDE ORAL SOLN 50 MG/5 ML UDC GT SCH (09:00)
[2019-05-18] MEDS: MULTIVIT W/MINERALS 1 TAB TABLET GT SCH (09:29)
[2019-05-18] MEDS: predniSONE 20 MG TABLET GT SCH (09:29)
[2019-05-18] MEDS: ACIDOPHILUS/BULGARICUS 1 EACH TAB.CHEW GT SCH (09:29)
[2019-05-18] MEDS: LINAGLIPTIN 5 MG TABLET GT SCH (09:29)
[2019-05-18] MEDS: ASCORBIC ACID 500 MG TABLET NG SCH (09:29)
[2019-05-18] MEDS: DOXYCYCLINE HYCLATE (100 MG) 100 MG TABLET GT SCH (09:29)
[2019-05-18] MEDS: CHLORHEXIDINE GLUCONATE 15 ML UDC MM SCH (09:29)
[2019-05-18] MEDS: FINASTERIDE (5 MG) 5 MG TABLET GT SCH (09:29)
[2019-05-18] MEDS: predniSONE 1 MG TABLET GT SCH (09:30)
[2019-05-18] MEDS: predniSONE 5 MG TABLET GT SCH (09:30)
[2019-05-18] MEDS: PROSOURCE / PROSTAT (PYXIS) 30 ML UDC GT SCH (09:30)
[2019-05-18] MEDS: VITAMINS A AND D 56.7 GM TUBE TP SCH (09:43)
[2019-05-18] MEDS: CADEXOMER IODINE 40 GM TUBE TP SCH (09:44)
[2019-05-18] MEDS: Z GUARD REMEDY 2 OZ OINT TP SCH (09:44)
[2019-05-18] MEDS: NYSTATIN/TRIAMCIN CREAM 15 GM TUBE TP SCH ×3 (09:44→18:05)
[2019-05-18] MEDS: MUPIROCIN OINT 2% 22 GM TUBE SCH (09:44)
[2019-05-18] MEDS: DORZOLAMIDE OPTH 2% 10 ML BOTTLE EACHEYE SCH ×3 (09:45→17:00)
[2019-05-18] MEDS: ESOMEPRAZOLE MAGNESIUM 40 MG SUSPDR.PKT GT SCH (09:53)
[2019-05-18 12:00] VITALS: BP_SYST 118; BP_SYST 124; BP_DIAS 51; BP_DIAS 61
[2019-05-18 12:54] LABS: BASOPHILS % (AUTO) 0.1 % (0.0-2.0); EOSINOPHILS % (AUTO) 1.1 % (0.0-6.0); HEMATOCRIT 34 % (39-51); HEMOGLOBIN 10.2 g/dL (13.5-17.5); LYMPHOCYTES # (AUTO) 0.9 /CMM (0.8-4.8); LYMPHOCYTES % (AUTO) 7.1 % (20.0-44.0); MEAN CORPUSCULAR HGB CONC 30 g/dl (31.0-36.0); MEAN CORPUSCULAR VOLUME 101 fL (80-96); MONOCYTES # (AUTO) 0.8 /CMM (0.1-1.30); MONOCYTES % (AUTO) 6.3 % (2.0-12.0); NEUTROPHILS # (AUTO) 10.8 /CMM (1.8-8.9); NEUTROPHILS % (AUTO) 85.4 % (43.0-81.0); PLATELET COUNT (AUTO) 232 /CMM (150-450); RED BLOOD CELL COUNT(AUTO) 3.36 MIL/uL (4.5-6.0); WHITE BLOOD COUNT (AUTO) 12.6 K/uL (4.3-11.0)
[2019-05-18 13:03] LABS: CALCIUM, SERUM 9.1 mg/dL (8.5-10.1); CARBON DIOXIDE 25 mmol/L (21-32); CHLORIDE 97 mmol/L (98-107); GLUCOSE 260 mg/dL (74-106); POTASSIUM 4.4 mmol/L (3.5-5.1); SODIUM SERUM 135 mmol/L (136-145); UREA NITROGEN, BLOOD 78 mg/dL (7-18)
[2019-05-18] MEDS ORDERED: LACOSAMIDE ORAL SOLN 50 MG/5 ML UDC GT ONE (14:30)
[2019-05-18 16:00] VITALS: BP 136/28
--- NOTE | 2019-05-18 18:35 | NUR ---
RN NOTE: PATIENT REMAINS ALERT, OPEN EYES, OBTUNDED. ON VENT-TRAC, SETTINGS TOLERATING WELL. NO APPARENT DISTRESS NOTED. ASPIRATION PRECAUTIONS OBSERVED. G-TUBE ON HOLD AT THIS TIME. MARGARITA MICHAELS & DR. TREVIÑO IS AWARE. WOUND CARE DONE ORDERED. NO FALL/INJURY NOTED. CONTINUE WITH PLAN OF CARE. SON REFUSED TO DO CT SCAN OF HEAD. DR. BASURTO IS AWARE. RECEIVED NEW ORDERS TO DISCHARGE TO [facility] TODAY. WILL FOLLOW ORDERS. SEAMER ELASTIC BAND & WEIGHT AND BALANCE CONTROL AGENT IS AWARE.
--- NOTE | 2019-05-18 20:10 | NUR ---
PATIENT RECEIVED ON TRACH TO VENT WITH SETTINGS OF AC 14, 500 VT, 50%, +5. SUCTIONED FOR MINIMAL, THIN, FROTHY, WHITE SECRETIONS. AMBU BAG AT BEDSIDE. VENT ALARM AUDIBLE AND VISIBLE. NO DISTRESS/SOB NOTED. Addendum: 05/18/19 at 2011 by CHUCKY OLIVAS RT Amended: Links added.
--- NOTE | 2019-05-18 23:00 | NUR ---
RN NOTES TRANSFERRED TO SUB ACUTE ORDERED IN STABLE CONDITION. VITAL SIGNS WNL. NO APPARENT DISTRESS, BREATHING EVEN AND UNLABORED. VENT SETTINGS WELL TOLERATED. ENDOSRED RN SUB ACUTE. BATH, SKIN TREATMENT AND TRACH CARE DONE BEFORE TRANSFER.
== END 2019-05-18 21:33 | DRG 314 ==
LOC: ER 10:43 → TELE1 12:52 → MEDSG1 13:35 → TELE-TD 05-17 10:51 → TELE1 05-18 10:18
PROVIDERS: ADMIT Nurse Practitioner Acute Care; ATTEND Nurse Practitioner Acute Care
PROC: 5A1D90Z Performance of Urinary Filtration, Continuous, Greater than 18 hours Per Day (ICD-10-PCS; 2019-05-15)
PROC: 0JH63XZ Insertion of Tunneled Vascular Access Device into Chest Subcutaneous Tissue and Fascia, Percutaneous Approach (ICD-10-PCS; principal; 2019-05-16)
PROC: 02HV33Z Insertion of Infusion Device into Superior Vena Cava, Percutaneous Approach (ICD-10-PCS; 2019-05-16)
PROC: B518YZA Fluoroscopy of Superior Vena Cava using Other Contrast, Guidance (ICD-10-PCS; 2019-05-16)
PROC: 5A1945Z Respiratory Ventilation, 24-96 Consecutive Hours (ICD-10-PCS; 2019-05-17)
DX: T82.41XA Breakdown (mechanical) of vascular dialysis catheter, initial encounter (principal); E43 Unspecified severe protein-calorie malnutrition; J18.9 Pneumonia, unspecified organism; N18.6 End stage renal disease; J96.01 Acute respiratory failure with hypoxia; Z99.11 Dependence on respirator [ventilator] status; G93.1 Anoxic brain damage, not elsewhere classified; E87.1 Hypo-osmolality and hyponatremia; I13.2 Hypertensive heart and chronic kidney disease with heart failure and with stage 5 chronic kidney disease, or end stage renal disease; L12.0 Bullous pemphigoid; K94.23 Gastrostomy malfunction; Z86.73 Personal history of transient ischemic attack (TIA), and cerebral infarction without residual deficits; Z99.2 Dependence on renal dialysis; Z93.0 Tracheostomy status; Y71.2 Prosthetic and other implants, materials and accessory cardiovascular devices associated with adverse incidents; Z87.891 Personal history of nicotine dependence; E11.22 Type 2 diabetes mellitus with diabetic chronic kidney disease; K21.9 Gastro-esophageal reflux disease without esophagitis; D72.829 Elevated white blood cell count, unspecified; I25.10 Atherosclerotic heart disease of native coronary artery without angina pectoris; Z95.0 Presence of cardiac pacemaker; E88.09 Other disorders of plasma-protein metabolism, not elsewhere classified; M62.50 Muscle wasting and atrophy, not elsewhere classified, unspecified site; N40.0 Benign prostatic hyperplasia without lower urinary tract symptoms; Z74.01 Bed confinement status; Z87.440 Personal history of urinary (tract) infections; L30.4 Erythema intertrigo; H40.9 Unspecified glaucoma; F09 Unspecified mental disorder due to known physiological condition; D63.1 Anemia in chronic kidney disease; E11.51 Type 2 diabetes mellitus with diabetic peripheral angiopathy without gangrene; M24.571 Contracture, right ankle; M24.572 Contracture, left ankle; I70.235 Atherosclerosis of native arteries of right leg with ulceration of other part of foot; L97.519 Non-pressure chronic ulcer of other part of right foot with unspecified severity; I70.245 Atherosclerosis of native arteries of left leg with ulceration of other part of foot; L97.529 Non-pressure chronic ulcer of other part of left foot with unspecified severity; F03.90 Unspecified dementia, unspecified severity, without behavioral disturbance, psychotic disturbance, mood disturbance, and anxiety; S40.822A Blister (nonthermal) of left upper arm, initial encounter; S40.821A Blister (nonthermal) of right upper arm, initial encounter; S20.429A Blister (nonthermal) of unspecified back wall of thorax, initial encounter; S30.820A Blister (nonthermal) of lower back and pelvis, initial encounter; S70.322A Blister (nonthermal), left thigh, initial encounter; S70.321A Blister (nonthermal), right thigh, initial encounter; S50.821A Blister (nonthermal) of right forearm, initial encounter; X58.XXXA Exposure to other specified factors, initial encounter; Y93.9 Activity, unspecified; Y92.129 Unspecified place in nursing home as the place of occurrence of the external cause; M24.522 Contracture, left elbow; M24.521 Contracture, right elbow; Z22.322 Carrier or suspected carrier of Methicillin resistant Staphylococcus aureus; R56.9 Unspecified convulsions; I50.9 Heart failure, unspecified
CPT/HCPCS: 31720; 36415; 71045-TC; 80048-TC; 82962-TC; 83735-TC; 84100-TC; 85025-TC; 85730-TC; 86704; 86706; 87070-TC; 87081-TC; 87186-TC; 87340; 90935-TC; 93307-TC; 94002-TC; 94003-TC; 94760-TC; A4217; A4623; A6253; A6403; A7526; C1750; G0378; J0690; J1644; J1815; J2060; J2405; J2543; J2704; J2765; J3010; J3490; J7030; J7040; J7042; J7050; J7060; J7512; J8597